=== PATIENT | male | born 1945 | race Caucasian/White ===

== ENCOUNTER 2016-10-18 21:34 | Inpatient (IN) | payer MEDICARE, MEDICAID ==
[2016-10-18] MEDS ORDERED: Morphine 4 mg/ml ISec IM STA (22:01)
--- NOTE | 2016-10-18 22:11 | ED PDOC ---
Arrival/HPI - General Chief Complaint: Trauma Time Seen by Provider: 10/18/16 21:43 Historian: Patient, Steward/Stewardess Deck ( ) - History of Present Illness Narrative History of Present Illness (Text): 10/18/16 22:07 Esteban Carrion is a 70 year old male, whose past medical history includes left ear deafness, blindness, hypertension, hyperlipidemia, COPD, and alcohol abuse, presents to the emergency department complaining of left leg pain for past 2 hours. Patient states that today is the anniversary of his son's and admit to drinking alcohol. States that he can't move his left leg due to pain. Patient is unclear about a fall and story is inconsistent. Denies any chest pain , SOB, back pain, abdominal pain, nausea, vomiting, diarrhea, or any other complaints at this time. Time/Duration: 1-3 hours Symptom Onset: Gradual Symptom Course: Unchanged Activities at Onset: Significant Context: Other (questionable fall ) Past Medical History - Provider Review Nursing Documentation Reviewed: Yes - Infectious Disease Hx of Infectious Diseases: None - Tetanus Immunization Tetanus Immunization: Unknown - Past Medical History Past Medical History: No Previous - Cardiac Hx Hypertension: Yes - Pulmonary Hx Respiratory Disorders: No - Neurological Hx Neurological Disorder: No - HEENT Hx HEENT Disorder: Yes ([place]) Hx Blind: Yes Hx Cataracts: Yes Hx Glaucoma: Yes - Renal Hx Renal Disorder: No - Endocrine/Metabolic Hx Endocrine Disorders: No - Hematological/Oncological Hx Blood Disorders: No - Integumentary Hx Dermatological Disorder: No Other/Comment: poor hygeine - Musculoskeletal/Rheumatological Hx Falls: No (passed out at the bank today) - Gastrointestinal Hx Gastrointestinal Disorders: No - Genitourinary/Gynecological Hx Genitourinary Disorders: No - Psychiatric Hx Depression: No Hx Emotional Abuse: No Hx Physical Abuse: No Hx Substance Use: No Other/Comment: drinks alcohol daily, smokes 1/2 pack cigs a day - Past Surgical History Past Surgical History: No Previous - Anesthesia Hx Anesthesia: No Hx Anesthesia Reactions: No Hx Malignant Hyperthermia: No - Suicidal Assessment Feels Threatened In Home Enviroment: No Family/Social History - Physician Review Nursing Documentation Reviewed: Yes Family/Social History: No Known Family HX Smoking Status: Heavy Smoker > 10 Cigarettes Daily Hx Alcohol Use: Yes (daily) Hx Substance Use: No Hx Substance Use Treatment: No Allergies/Home Meds Allergies/Adverse Reactions: Allergies No Known Allergies Allergy (Verified 07/29/16 20:10) Home Medications: Home Meds Medication Instructions Recorded Confirmed Advair Disk Unk Dose 03/22/16 Albuterol HFA [Ventolin HFA 90 0.09 mg IH PRN PRN 03/22/16 03/22/16 mcg/actuation (8 g)] Gabapentin [Neurontin] 300 mg PO TID 03/22/16 03/22/16 Hydroxyzine HCl 25 mg PO HS 03/22/16 03/22/16 Latanoprost 0.005% Opht [XALATAN 1 drop OU ACD 03/22/16 03/22/16 2.5 Ml] Meclizine [Antivert] 12.5 mg PO DAILY 03/22/16 03/22/16 Polyth Glucol Powder PRN PRN 03/22/16 Pravastatin Sodium [Pravachol] 20 mg PO DAILY 03/22/16 03/22/16 Ramelteon [Rozerem] 8 mg PO DAILY 03/22/16 03/22/16 Venlafaxine [Effexor] 37.5 mg PO DAILY 03/22/16 03/22/16 acetaZOLAMIDE [Acetazolamide] 500 mg PO BID 03/22/16 03/22/16 Review of Systems - Physician Review All systems were reviewed & negative as marked: Yes - Review of Systems Constitutional: Normal. absent: Fatigue, Fevers Respiratory: Normal. absent: SOB, Cough, Sputum Cardiovascular: Normal. absent: Chest Pain, Palpitations Gastrointestinal: Normal. absent: Abdominal Pain, Diarrhea, Nausea, Vomiting Genitourinary Male: Normal. absent: Dysuria Musculoskeletal: Other (Left hip and leg pain ). absent: Back Pain, Neck Pain Neurological: Normal. absent: Headache, Dizziness Physical Exam Vital Signs Reviewed: Yes Vital Signs Temp Pulse Resp BP Pulse Ox 10/18/16 23:54 97.8 F 94 H 18 140/81 95 10/18/16 23:13 19 10/18/16 22:02 97.8 F 80 99 H 159/68 H 99 Temperature: Afebrile Blood Pressure: Normal Pulse: Regular Respiratory Rate: Normal Appearance: Positive for: Non-Toxic Pain Distress: Mild Mental Status: Positive for: Alert and Oriented X 3 - Systems Exam Head: Present: Atraumatic, Normocephalic. No: Tenderness, Swelling, Ecchymosis Pupils: Present: PERRL Conjunctiva: Present: Normal Neck: Present: Normal Range of Motion. No: MIDLINE TENDERNESS, Paraspinal Tenderness Respiratory/Chest: Present: Clear to Auscultation, Good Air Exchange. No: Respiratory Distress, Accessory Muscle Use Cardiovascular: Present: Regular Rate and Rhythm, Normal S1, S2. No: Murmurs Abdomen: Present: Normal Bowel Sounds. No: Tenderness, Distention, Peritoneal Signs, Rebound, Guarding Back: Present: Normal Inspection. No: CVA Tenderness, Midline Tenderness Upper Extremity: Present: Normal Inspection, Normal ROM, NORMAL PULSES, Neurovascularly Intact. No: Cyanosis, Edema Lower Extremity: Present: NORMAL PULSES, Neurovascularly Intact, Other ( tenderness to left hip and upper leg. no left knee tenderness. FROM left ankle. ). No: Edema Neurological: Present: GCS=15, CN II-XII Intact, Speech Normal Skin: Present: Warm, Dry, Normal Color. No: Rashes Psychiatric: Present: Alert, Oriented x 3, Intoxicated Medical Decision Making ED Course and Treatment: 10/18/16 22:15 Impression: A 70 year old male who presents to the ed for evaluation of left leg pain after a questionable fall after ETOH consumption. On PE, patient has tenderness to left hip and upper leg. No tenderness to left knee and full range of motion on left ankle. No signs of trauma. Differential Diagnosis: ETOH and Fall: r/o fracture Plan: -- CT Head -- EKG -- Labs, cardiac enzymes -- CXR -- Morphine -- Hip X-ray -- Knee X-ray -- LS X-ray Progress Notes: EKG interpreted by me: NSR @ 81 bpm. normal axis. normal interval. 10/18/16 23:09 CT HEAD results reviewed: IMPRESSION: 1. There is motion and beam hardening artifact which somewhat limits evaluation. 2. No evidence for acute intracranial abnormality or displaced calvarial fracture. X-Ray show left intertrochanteric hip fracture. Patient is hypokalemic with potassium of 3.[address] Ponce who accepts patient to [facility] under her service with Dr. Ferguson on consult. - Lab Interpretations Lab Results: 10/18/16 22:11 10/18/16 22:11 Lab Results 10/18/16 22:11: WBC 4.9 D, RBC 4.34, Hgb 12.4 L, Hct 36.7 L, MCV 84.6, MCH 28.6 , MCHC 33.8, RDW 15.0 H, Plt Count 146, MPV 10.6, Gran % 42.5 L, Lymph % (Auto) 46.5 H, [place] % (Auto) 4.5, Eos % (Auto) 5.9 H, Baso % (Auto) 0.6, Gran # 2.07, Lymph # 2.3, [place] # 0.2, Eos # 0.3, Baso # 0.03, PT 11.7, INR 1.08, APTT 29.9, Sodium 143, Potassium 3.5 L, Chloride 102, Carbon Dioxide 28, Anion Gap 17, BUN 10, Creatinine 0.6, Est GFR ( Amer) > 60, Est GFR (Non-Af Amer) > 60, Random Glucose 111 H, Calcium 8.8, Magnesium 1.9, Total Bilirubin 0.6, AST 79 H , ALT 38, Alkaline Phosphatase 551 H, Lactate Dehydrogenase 572, Total Creatine Kinase 57, Troponin I < 0.01, Total Protein 7.9, Albumin 3.7, Globulin 4.1, Albumin/Globulin Ratio 0.9 L, Alcohol, Quantitative 220 H I have reviewed the lab results: Yes - RAD Interpretation Narrative RAD Interpretations (Text): EXAM: CT Head Without Intravenous Contrast. FINDINGS: Artifacts: There is motion and beam hardening artifact which somewhat limits evaluation. Brain: There is moderate prominence of ventricles and sulci, compatible with moderate atrophy. There is mild diminished density of the white matter bilaterally, consistent with mild microangiopathy. There is no evidence of intracranial hemorrhage. No evidence of acute territorial infarction. No edema. Ventricles: See above. Bones/joints: Unremarkable. No acute fracture. Soft tissues: Unremarkable. Sinuses: Unremarkable as visualized. No acute sinusitis. Mastoid air cells: Unremarkable as visualized. No mastoid effusion. IMPRESSION: 1. There is motion and beam hardening artifact which somewhat limits evaluation. 2. No evidence for acute intracranial abnormality or displaced calvarial fracture. 3. Additional incidental and/or chronic findings as described Radiology Orders: 10/18/16 22:01 HEAD W/O CONTRAST [CT] Stat HIP MIN 2V W/ PELVIS LT [RAD] Stat KNEE LEFT 2 VIEWS (AP & LAT) [RAD] Stat LS SPINE WITH OBL > 18 YRS OLD [RAD] Stat 10/18/16 22:04 CXR [CHEST ONE VIEW] [RAD] Stat Turbine Technician: Radiologist - EKG Interpretation Interpreted by ED Physician: Yes Type: 12 lead EKG - Medication Orders Current Medication Orders: Discontinued Medications Morphine Sulfate (Morphine) 4 mg IM STAT STA Stop: 10/18/16 22:02 Last Admin: 10/18/16 22:17 Dose: 4 MG MAR Pain Assessment Document 10/18/16 22:17 [facility] (Rec: 10/18/16 22:18 [id number]) Pain Reassessment Is this a pain reassessment? No Sleep Is patient sleeping during reassessment? No Presence of Pain Presence of Pain Yes Pain Scale Used Pain Scale Used Numeric Location Left, Right or Bilateral Left Pain Location Body Site Leg Description Description Constant Intensity of Pain at present 8 Acceptable Level of Pain 0 Radiation Location left leg Variations/Patterns intermitent Pain Behavior Moaning Rubbing Site Aggravating Factors ADL's Alleviating Factors/Management Position Change Techniques IM Administration Charges Document 10/18/16 22:17 [facility] (Rec: 10/18/16 22:18 [id number]) Injection Site MAR Injection Site Left Deltoid Charges for Administration # of IM Administrations 1 Morphine Sulfate (Morphine) 4 mg IVP STAT STA Stop: 10/18/16 23:14 Last Admin: 10/18/16 23:31 Dose: 4 MG MAR Pain Assessment Document 10/18/16 23:31 [facility] (Rec: 10/18/16 23:41 [id number]) Pain Reassessment Is this a pain reassessment? No Sleep Is patient sleeping during reassessment? No Presence of Pain Presence of Pain Yes Pain Scale Used Pain Scale Used Numeric Location Left, Right or Bilateral Left Pain Location Body Site Leg Description Description Constant Intensity of Pain at present 6 Acceptable Level of Pain 0 IVP Administration Document 10/18/16 23:31 [facility] (Rec: 10/18/16 23:41 [id number]) Charges for Administration # of IVP Administrations 1 Potassium Chloride (K-Dur 20 Meq Er Tab) 40 meq PO STAT STA Stop: 10/18/16 22:40 Last Admin: 10/18/16 23:17 Dose: 40 MEQ - Scribe Statement The provider has reviewed the documentation as recorded by the Vincent Christina Provider Attestation: All medical record entries made by the Vincent were at my direction and personally dictated by me. I have reviewed the chart and agree that the record accurately reflects my personal performance of the history, physical exam, medical decision making, and the department course for this patient. I have also personally directed, reviewed, and agree with the discharge instructions and disposition. Disposition/Present on Arrival - Present on Arrival Any Indicators Present on Arrival: No History of DVT/PE: No History of Uncontrolled Diabetes: No Urinary Catheter: No History of Decub. Ulcer: No History Surgical Site Infection Following: None - Disposition Have Diagnosis and Disposition been Completed?: Yes Diagnosis: Fracture of left hip, Alcohol intoxication Disposition: HOSPITALIZED Disposition Time: 23:09 Patient Plan: Admission Condition: FAIR
[2016-10-18 22:18] LABS: ADD MANUAL DIFF? NO
[2016-10-18 22:20] LABS: BASO # 0.03 K/mm3 (0.0-2.0); BASO % 0.6 % (0.0-3.0); EOS # 0.3 (0.0-0.7); EOS % 5.9 % (1.5-5.0); GRAN # 2.07 (1.4-6.5); GRAN % 42.5 % (50.0-68.0); HEMATOCRIT 36.7 % (42.0-52.0); LYMPH # 2.3 (1.2-3.4); LYMPH % 46.5 % (22.0-35.0); MEAN CELL VOLUME 84.6 fL (80.0-105.0); MEAN CORPUSCULAR HEMOGLOBIN 28.6 pg (25.0-35.0); MEAN CORPUSCULAR HGB CONC 33.8 g/dl (31.0-37.0); MEAN PLATELET VOLUME 10.6 fl (7.0-11.0); MONO # 0.2 (0.1-0.6); MONO % 4.5 % (1.0-6.0); PLATELET COUNT 146 10^3/uL (120.0-450.0); WHITE BLOOD COUNT 4.9 10^3/ul (4.5-11.0)
[2016-10-18 22:33] LABS: INR 1.08 (0.93-1.08); PARTIAL THROMBOPLASTIN TIME 29.9 Seconds (23.7-30.8)
[2016-10-18 22:34] LABS: ALB/GLOB RATIO 0.9 (1.1-1.8); ALKALINE PHOSPHATASE 551 U/L (38-133); ALT/SGPT 38 U/L (7-56); AST/SGOT 79 U/L (15-59); BILIRUBIN,TOTAL 0.6 mg/dL (0.2-1.3); BLOOD UREA NITROGEN 10 mg/dL (7-21); CALCIUM 8.8 mg/dL (8.4-10.5); CARBON DIOXIDE 28 mmol/L (21-33); CHLORIDE 102 mmol/L (98-107); GFR AFRICAN-AMERICAN > 60; GLUCOSE,RANDOM 111 mg/dL (70-110); MAGNESIUM 1.9 mg/dL (1.7-2.2); POTASSIUM 3.5 mmol/L (3.6-5.0); SODIUM 143 mmol/L (132-148); TOTAL PROTEIN 7.9 g/dL (5.8-8.3)
[2016-10-18] MEDS ORDERED: Potassium Chloride 20 mEq ER Tab PO STA (22:39)
[2016-10-18 22:48] LABS: TROPONIN I < 0.01 ng/mL
--- NOTE | 2016-10-18 23:06 | CT ---
EXAM: CT Head Without Intravenous Contrast. CLINICAL HISTORY: 70 years old, male; Injury or trauma; Fall; Initial encounter; Concussion / head injury; Additional info: Fall R/O ich TECHNIQUE: Axial computed tomography images of the head/brain without intravenous contrast. This CT exam was performed using one or more of the following dose reduction techniques: automated exposure control, adjustment of the mA and/or kV according to patient size, and/or use of iterative reconstruction technique. COMPARISON: No relevant prior studies available. FINDINGS: Artifacts: There is motion and beam hardening artifact which somewhat limits evaluation. Brain: There is moderate prominence of ventricles and sulci, compatible with moderate atrophy. There is mild diminished density of the white matter bilaterally, consistent with mild microangiopathy. There is no evidence of intracranial hemorrhage. No evidence of acute territorial infarction. No edema. Ventricles: See above. Bones/joints: Unremarkable. No acute fracture. Soft tissues: Unremarkable. Sinuses: Unremarkable as visualized. No acute sinusitis. Mastoid air cells: Unremarkable as visualized. No mastoid effusion. IMPRESSION: 1. There is motion and beam hardening artifact which somewhat limits evaluation. 2. No evidence for acute intracranial abnormality or displaced calvarial fracture. 3. Additional incidental and/or chronic findings as described.
[2016-10-18] MEDS ORDERED: Morphine 4 mg/ml ISec IVP STA (23:13)
[2016-10-19] MEDS ORDERED: Sodium Chloride 0.9% 1,000 ML IV STA (00:15)
[2016-10-19] MEDS: Morphine 4 mg/ml ISec IVP PRN ×4 (01:40→20:01)
--- NOTE | 2016-10-19 09:20 | RAD ---
PROCEDURE: CHEST RADIOGRAPH, 1 VIEW HISTORY: fall r/o fx COMPARISON: 05/15/2016 FINDINGS: LUNGS: Clear. PLEURA: No pneumothorax or pleural fluid seen. CARDIOVASCULAR: Normal. OSSEOUS STRUCTURES: No significant abnormalities. VISUALIZED UPPER ABDOMEN: Normal. OTHER FINDINGS: None. IMPRESSION: No active disease.
--- NOTE | 2016-10-19 09:22 | RAD ---
PROCEDURE: Left Knee Radiographs. HISTORY: Pain. COMPARISON: None. FINDINGS: BONES: Normal. No fracture. JOINTS: Normal. No osteoarthritis. JOINT EFFUSION: None. OTHER FINDINGS: None. IMPRESSION: Normal radiographs of the left knee.
--- NOTE | 2016-10-19 09:23 | RAD ---
PROCEDURE: Radiographs of the Lumbar Spine. HISTORY: fall r/o fx COMPARISON: No prior. FINDINGS: BONES: Normal alignment. No listhesis. No fracture. DISC SPACES: Unremarkable. OTHER FINDINGS: Osteophytes are seen at multiple levels without significant disc space narrowing IMPRESSION: Unremarkable radiographs of the lumbar spine.
--- NOTE | 2016-10-19 09:25 | RAD ---
PROCEDURE: Pelvis and left hip HISTORY: fall r/o fx COMPARISON: TECHNIQUE: Two views FINDINGS: There is a minimally displaced left intertrochanteric fracture. The pelvis is intact IMPRESSION: Negative study
[2016-10-19] MEDS ORDERED: Albuterol HFA 90 mcg/actuation (8 g) IH PRN (09:26)
[2016-10-19] MEDS ORDERED: Albuterol 0.5% Inhal Sol (2.5 mg/0.5 ml) UD IH PRN (09:37)
[2016-10-19] MEDS ORDERED: [UNRECOGNIZED DRUG - OTHER] IH SCH (10:00)
[2016-10-19] MEDS ORDERED: RAMELTEON 8 MG PO SCH (10:00)
--- NOTE | 2016-10-19 10:21 | CARD ---
APPROVED REPORT EKG Measurement Heart [id number] <Conclusion> Normal sinus rhythm ST changes V 4 - 6, new
[2016-10-19] MEDS: RAMELTEON 8 MG PO SCH (10:23)
[2016-10-19] MEDS: acetaZOLAMIDE 500 mg SR Cap PO SCH ×2 (10:56→18:14)
--- NOTE | 2016-10-19 11:20 | CP.PCM.CON ---
History of Present Illness - History of Present Illness History of Present Illness: Esteban Carrion is a 70 year old male, whose past medical history includes left ear deafness, blindness, hypertension, hyperlipidemia, COPD, and alcohol abuse, seen at bedside for left minimally displaced intertrochanteric fracture. Patient fell yesterday in his home and could not move his leg due to pain. patient admitted to drinking alcohol since it was the anniversary of his son's . Patient is unclear about a fall and story is inconsistent. Denies any chest pain, SOB, back pain, abdominal pain, nausea, vomiting, diarrhea, or any other complaints at this time. Review of Systems - Constitutional Constitutional: As Per HPI Past Patient History - Infectious Disease Hx of Infectious Diseases: None - Tetanus Immunizations Tetanus Immunization: Unknown - Past Social History Smoking Status: Heavy Smoker > 10 Cigarettes Daily - CARDIAC Hx Cardiac Disorders: Yes Hx Hypertension: Yes - PULMONARY Hx Respiratory Disorders: Yes Hx Chronic Obstructive Pulmonary Disease (COPD): Yes - NEUROLOGICAL Hx Neurological Disorder: No - HEENT Hx HEENT Problems: Yes Hx Blind: Yes Hx Cataracts: Yes Hx Deafness: Yes Hx Glaucoma: Yes - RENAL Hx Chronic Kidney Disease: No - ENDOCRINE/METABOLIC Hx Endocrine Disorders: No - HEMATOLOGICAL/ONCOLOGICAL Hx Blood Disorders: No - INTEGUMENTARY Hx Dermatological Problems: No - MUSCULOSKELETAL/RHEUMATOLOGICAL Hx Musculoskeletal Disorders: Yes Hx Falls: Yes Hx Fractures: Yes Hx Unsteady Gait: Yes - GASTROINTESTINAL Hx Gastrointestinal Disorders: No - GENITOURINARY/GYNECOLOGICAL Hx Genitourinary Disorders: No - PSYCHIATRIC Hx Psychophysiologic Disorder: Yes Hx Depression: Yes - SURGICAL HISTORY Hx Surgeries: Yes - ANESTHESIA Hx Anesthesia: No Hx Anesthesia Reactions: No Hx Malignant Hyperthermia: No Meds Allergies/Adverse Reactions: Allergies Allergy/AdvReac Type Severity Reaction Status Date / Time No Known Allergies Allergy Verified 07/29/16 20:10 - Medications Medications: Current Medications Acetazolamide (Diamox Sequels 500 Mg Sr Cap) 500 mg PO BID [facility] Last Admin: 10/19/16 10:56 Dose: 500 mg Albuterol Sulfate (Albuterol 0.5% Inhal Patti (2.5 Mg/0.5 Ml) Ud) 2.5 mg IH [id number] PRN PRN Reason: Cough and congestion Arformoterol Tartrate (Brovana) 15 mcg IH [id number] [facility] Atorvastatin Calcium (Lipitor) 10 mg PO DIN JUANITA Budesonide (Pulmicort Respules) 0.25 mg IH [id number] JUANITA Gabapentin (Neurontin) 300 mg PO TID JUANITA PRN Reason: Protocol Last Admin: 10/19/16 10:20 Dose: 300 mg Hydroxyzine HCl (Atarax) 25 mg PO HS JUANITA Latanoprost (Xalatan Opht) 0 ml OU ACD JUANITA Morphine Sulfate (Morphine) 4 mg IVP Q4H PRN PRN Reason: Pain, moderate (4-7) Last Admin: 10/19/16 09:34 Dose: 4 mg Non-Formulary Medication (Ramelteon [Rozerem]) 8 mg PO DAILY [facility] Last Admin: 10/19/16 10:23 Dose: Not Given Ondansetron HCl (Zofran Inj) 4 mg IVP Q4H PRN PRN Reason: Nausea/Vomiting Venlafaxine HCl (Effexor) 37.5 mg PO DAILY [facility] Last Admin: 10/19/16 10:56 Dose: 37.5 mg Physical Exam - Constitutional Appears: Well, Non-toxic, No Acute Distress - Extremities Exam Additional comments: Vasc: palpable pulses, CFT < 3 sec to all digits left lower extremity focused: no edema, no erythema, mild echymoses, no open lesions ortho: tenderness to palpation of left hip and upper leg, diminished ROM to left hip - Neurological Exam Neurological exam: Alert, Oriented x3 - Psychiatric Exam Psychiatric exam: Normal Affect, Normal Mood Results - Vital Signs Recent Vital Signs: Last Vital Signs Temp 99.2 F 10/19/16 06:00 Pulse 102 H 10/19/16 06:00 Resp 18 10/19/16 06:00 BP 110/65 10/19/16 06:00 Pulse Ox 95 10/19/16 06:00 - Labs Result Diagrams: 10/19/16 11:20 10/19/16 11:20 Assessment & Plan - Assessment and Plan (Free Text) Assessment: 70 y/o male seen at bedside for left minimally displaced intertrochanteric fracture, going to OR tomorrow at 11:00AM. Plan: patient evaluated and chart reviewed discussed in detail with attending Dr. Tam patient going to OR tomorrow morning at 11am for ORIF of left intertrochanteric fracture [facility] Dr. Tam f.u CBC f/u BMP f/u Chest x ray f/u EKG f/u type and screen f/u PT, PTT, INR needs medical optimization for surgery tomorrow patient NPO after midnight patient will continue to be monitored while in house
[2016-10-19 11:43] LABS: HEMATOCRIT 32.1 % (42.0-52.0); MEAN CELL VOLUME 85.1 fL (80.0-105.0); MEAN CORPUSCULAR HEMOGLOBIN 28.1 pg (25.0-35.0); MEAN PLATELET VOLUME 10.2 fl (7.0-11.0); RED CELL DISTRIBUTION WIDTH 15.2 % (11.5-14.5); WHITE BLOOD COUNT 6.8 10^3/ul (4.5-11.0)
[2016-10-19 11:51] LABS: BLOOD UREA NITROGEN 12 mg/dL (7-21); CALCIUM 8.1 mg/dL (8.4-10.5); CARBON DIOXIDE 30 mmol/L (21-33); CHLORIDE 105 mmol/L (95-110); GFR AFRICAN-AMERICAN > 60; GLUCOSE,RANDOM 120 mg/dL (70-110); POTASSIUM 4.2 mmol/L (3.6-5.0); SODIUM 140 mmol/L (132-148)
[2016-10-19 11:56] LABS: INR 1.06 (0.93-1.08); PARTIAL THROMBOPLASTIN TIME 30.1 Seconds (23.7-30.8)
[2016-10-19] MEDS ORDERED: Latanoprost 2.5 ml Opht Soln OU SCH (16:30)
[2016-10-19] MEDS: Latanoprost 2.5 ml Opht Soln OU SCH (17:02)
--- NOTE | 2016-10-19 17:29 | CON ---
DATE: 10/19/2016 REASON FOR CONSULTATION: Minimally displaced left intertrochanteric fracture, and surgical clearance , as well as abnormal EKG. The patient is a 70-year-old [place] female who is a smoker, has chronic obstructive lung disease, b ut not on nasal O2 at home. He sustained a fracture at home with left intertrochanteric minimally di splaced fracture. The patient is being considered for open reduction internal fixation tomorrow at [facility]. The patient denies any chest pain at this time, and is unaware of any history of he art attack in the past. SOCIAL HISTORY: The patient is a smoker. He lives with his daughter, who has psychological problems . The patient's is in a fdc, and the patient is a smoker and drinker. The patient los t his son recently. REVIEW OF SYSTEMS: The patient denies any history of heart attack or stroke in the past. MEDICATIONS: Albuterol inhaler q. 6 hours, Atarax 2.25 mg at bedtime, Brovana 15 mcg inhalation twic e a day, Diamox 500 mg twice a day, Effexor 37.5 mg p.o. daily, Lipitor 10 mg daily, Neurontin 300 m g p.o. t.i.d., nicotine patch, Singulair 10 mg p.o. at bedtime, Solu-Medrol 40 mg intravenously q. 6 hours, Zofran 4 mg intravenously q. 4 hours p.r.n. PHYSICAL EXAMINATION: The patient is an elderly male who appears much older than his dated age. VITAL SIGNS: Blood pressure 155/78, heart rate 90, temperature 98, respiration 20. HENT: Normocephalic. NECK: No JVD. CHEST: Bilateral diffuse wheezing. HEART: S1, S2 regular. ABDOMEN: Soft. EXTREMITIES: Significant muscle wasting. LABORATORIES: Hemoglobin and hematocrit 10.6 and 32.1, white count and platelet count are within nor mal limits. SMA-7: Sodium 140, potassium 4.2, chloride 105, CO2 of 30, glucose 120, BUN 12, creatin ine 0.6. One set of troponin is negative. Alcohol level was 221. PT/INR is within normal limit. I did review the echocardiograph study which revealed normal ejection fraction. EKG image could not be accessed on the [facility], but was reported to be sinus rhythm with ST-T wave changes. Head CAT sc an: Motion artifact. No acute finding. ASSESSMENT: 1. Status post fall and minimally displaced left intertrochanteric fracture. 2. Alcohol intoxication. 3. Abnormal EKG. 4. Chronic obstructive lung disease. RECOMMENDATIONS: Continue current bronchodilators including albuterol, Brovana, continue Solu-Medrol , continue Lipitor at 10 mg once a day. I would review the EKGs at the [employer] database as they are not accessible on the [employer] database. The patient, despite the fact that he has good ejection fr action by my own review of the echocardiograph study, needs pulmonary clearance as the patient is act ively and diffusely wheezing at this time. Repeat alcohol level to ensure that the patient is no carla kenneth alcohol intoxicated prior to subjecting him to anesthesia. Emilio Amador MD cc: [id number] TT: 10/19/2016 17:28:24 Confirmation # [id number] Dictation # [id number]
--- NOTE | 2016-10-19 17:44 | CARD ---
APPROVED REPORT EXAM: Two-dimensional and M-mode echocardiogram with Doppler and color Doppler. INDICATION Pre-Op 2D DIMENSIONS Left Atrium (2D)3.2 (1.6-4.0cm) M-Mode DIMENSIONS IVSd1.21 (0.7-1.1cm)Aortic Root2.90 (2.2-3.7cm) LVDd3.46 (4.0-5.6cm)Aortic Cusp Exc.1.30 (1.5-2.0cm) PWd1.56 (0.7-1.1cm)IVSs1.56 cm FS (%) 37 %LVDs2.19 (2.0-3.8cm) PWs1.27 cmLVEF (%)68 (>50%) Aortic Valve AoV Peak Lflzfoik827.0cm/Shaq Peak GR.5mmHg Mitral Valve MV E Cbjmhdwr65.6cm/sMV A Fqlfxtih21.4cm/sE/A ratio1.1 TDI E/Lateral E'0.0E/Medial E'0.0 LEFT VENTRICLE The left ventricle is normal size. There is borderline concentric left ventricular hypertrophy. The left ventricular function is normal. The left ventricular ejection fraction is within the normal range. There is normal LV segmental wall motion. Transmitral Doppler flow pattern is Grade I-abnormal relaxation pattern. RIGHT VENTRICLE The right ventricle is normal size. There is normal right ventricular wall thickness. The right ventricular systolic function is normal. ATRIA The left atrium size is normal. The right atrium size is normal. AORTIC VALVE The aortic valve is not well visualized. MITRAL VALVE The mitral valve is not well visualized. GREAT VESSELS The aortic root displays moderate sclerocalcific changes of the aortic root. Due to poor image quality, the IVC could not be assessed. PERICARDIAL EFFUSION There is a trace loculated anterior pericardial effusion. <Conclusion> The left ventricle is normal size. There is borderline concentric left ventricular hypertrophy. The left ventricular function is normal. The left ventricular ejection fraction is within the normal range. There is normal LV segmental wall motion. Transmitral Doppler flow pattern is Grade I-abnormal relaxation pattern.
[2016-10-19] MEDS: MethylPREDNISolone 40 mg Vial IVP SCH (18:11)
[2016-10-19] MEDS: Budesonide 0.25 mg/2 ml Inhal Susp UD IH SCH (19:58)
[2016-10-19] MEDS: Arformoterol 15 mcg/2 ml Inh Sol IH SCH (19:58)
--- NOTE | 2016-10-19 20:36 | CON ---
DATE: 10/19/2016 REFERRING PHYSICIAN: Dr. Ponce. REASON FOR CONSULT: Chronic obstructive lung disease, status post fall with left intertrochanteric f racture, waiting for surgery. 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 He did not follow with any physician for years. N o chest pain, no nausea, no vomiting. PAST MEDICAL HISTORY: Chronic obstructive lung disease, alcohol abuse. SOCIAL HISTORY: Lives with the daughter, history of active smoking and excessive alcohol use. ALLERGIES: None known. FAMILY HISTORY: No significant cardiopulmonary disease reported. MEDICATIONS: He is on Atarax on a p.r.n. basis, Brovana inhaled twice a day, Diamox 500 mg twice a d ay, Effexor 37.5 mg daily, Lipitor 10 mg daily, Neurontin 300 mg 3 times a day, Zofran on a p.r.n. ba sis. REVIEW OF SYSTEMS: No headache, no rhinitis. Has a cough and shortness of breath. No chest pain, n o nausea, no vomiting, no abdominal pain. Has left hip pain. PHYSICAL EXAMINATION: GENERAL: He is lying in the bed in [id number] distress secondary to hip pain. VITAL SIGNS: Temperature is 98, heart rate is 90, respiratory rate is 20, blood pressure 155/78, pul se ox 98% on nasal cannula. HEENT: Small oral cavity. Crowded airway. NECK: Supple, no JVD. LUNGS: Has diffuse wheezing with poor airflow. HEART: S1, S2. ABDOMEN: Soft, nontender. No organomegaly. EXTREMITIES: There is no edema. Has left hip tenderness. NEUROLOGIC: Awake, alert, follows simple commands. LABORATORY DATA: Shows hemoglobin 10.6, hematocrit 32.1, WBC 6.8, platelet is 139. INR 1.06, PTT 30 . Sodium 140, potassium 4.2, chloride 105, bicarbonate 30, BUN 12, creatinine 0.6, glucose 120, calc ium is 8.1, AST 79, ALT , is 551, albumin is 3.7. Had an echocardiogram done, which shows left ventricle is normal in size, borderline concentric left ventricular hypertrophy, ventricular fu nction is normal, left ventricular ejection fraction is within normal limits. There is some diastoli c dysfunction. The right ventricle is normal. By the report there is wall thickening of the right v entricle. Systolic function is reported as normal. Chest x-ray done on admission shows no active pu lmonary disease, left hip has intertrochanteric fracture. IMPRESSION AND PLAN: Status post fall with left hip intertrochanteric fracture, probably has signifi cant chronic obstructive pulmonary disease, history of alcohol abuse. The left leg is mildly swollen . Case discussed with the patient's son at bedside. All the questions were answered. Need to optim ize lung function. Will start him on inhaled bronchodilators, IV steroids, doxycycline 100 mg twice a day. Continue nebulizer treatment. Will place him on a Nicoderm patch 21 mg daily. Add Ativan 1 mg q.3 hours p.r.n. for agitation and alcohol withdrawal. Gastric prophylaxis. Will get venous Dopp ler. If it is negative, place SCDs to lower extremities. If it is positive, only place SCD to the right lower extremity and then make a decision about anticoagulation once we receive the venous Doppl er. Need to be reevaluate in the morning how the lungs sound. For now I will optimize pulmonary med ications in anticipation of hopefully surgery tomorrow if his pulmonary status is improved. Thank you and will follow with you. Theodore Atkins MD cc: [id number] TT: 10/19/2016 20:35:52 Confirmation # [id number] Dictation # [id number] [email or web address]
--- NOTE | 2016-10-19 20:45 | US ---
PROCEDURE: Left lower extremity venous US HISTORY: Leg pain and swelling. Evaluate for DVT. PHYSICIAN(S): Juan Miguel Scott MD. TECHNIQUE: Duplex sonography and color-flow Doppler with graded compression were used to evaluate the deep venous system of the left lower extremity. FINDINGS: The visualized deep venous system of the left lower extremity is sonographically normal and compressible. Normal wave forms and augmentation are seen. There is no sonographic evidence for deep venous thrombosis in the visualized segments of the left lower extremity. IMPRESSION: 1. No sonographic evidence for deep venous thrombosis in the visualized segments of the left lower extremity.
[2016-10-19] MEDS ORDERED: HYDROXYZINE HCL 25 MG PO SCH (22:00)
[2016-10-20] MEDS: Morphine 4 mg/ml ISec IVP PRN (05:10)
[2016-10-20] MEDS: MethylPREDNISolone 40 mg Vial IVP SCH ×5 (06:22→22:13)
[2016-10-20 07:18] LABS: HEMATOCRIT 34.3 % (42.0-52.0); MEAN CELL VOLUME 87.5 fL (80.0-105.0); MEAN CORPUSCULAR HEMOGLOBIN 27.8 pg (25.0-35.0); MEAN CORPUSCULAR HGB CONC 31.8 g/dl (31.0-37.0); MEAN PLATELET VOLUME 11.5 fl (7.0-11.0); RED CELL DISTRIBUTION WIDTH 15.2 % (11.5-14.5); WHITE BLOOD COUNT 5.4 10^3/ul (4.5-11.0)
[2016-10-20 07:33] LABS: BLOOD UREA NITROGEN 10 mg/dL (7-21); CALCIUM 8.5 mg/dL (8.4-10.5); CARBON DIOXIDE 26 mmol/L (21-33); CHLORIDE 104 mmol/L (98-107); CHOLESTEROL 163 mg/dL (130-200); GFR AFRICAN-AMERICAN > 60; GLUCOSE,RANDOM 133 mg/dL (70-110); POTASSIUM 4.2 mmol/L (3.6-5.0); SODIUM 135 mmol/L (132-148)
[2016-10-20] MEDS: Arformoterol 15 mcg/2 ml Inh Sol IH SCH ×2 (07:38→20:10)
[2016-10-20] MEDS: Budesonide 0.25 mg/2 ml Inhal Susp UD IH SCH ×2 (07:38→20:10)
[2016-10-20 07:39] LABS: IRON 21 ug/dL (45-180)
--- NOTE | 2016-10-20 07:48 | HP ---
CHIEF COMPLAINT: Fall, pain. HISTORY OF PRESENT ILLNESS: The patient is a 70-year-old male with past medical history of deafness, blindness, hypertension, hypercholesterolemia, COPD and alcohol abuse who came to the Emergency Room Department complaining of left leg pain for the past 2 hours. The patient states that today was his anniversary of his son's . Admits to drinking alcohol. The patient stated that he is unable to move his left leg due to pain. He is unclear about the fall and stories are inconsistent. Denies chest pain, shortness of breath. No back pain. No nausea, vomiting, or diarrhea. PAST MEDICAL HISTORY: Poor hygiene. Drinking alcohol. Smokes 1/2 pack per day. FAMILY HISTORY: Father and mother noncontributory. HABITS: Heavy smoker, more than 10 cigarettes a day, using alcohol. No drug abuse as per patient. ALLERGIES: The patient is not allergic to any medications. HOME MEDICATIONS: Advair, albuterol, Neurontin, hydralazine, Pravachol, Effexor , Acetazolamide. REVIEW OF SYSTEMS: The patient is seen and examined on the bedside, coughing, wheezing. No fever, no chills. No hematuria or hematochezia. No headache, no dizziness. The patient is a very poor historian, blind and deaf. No headache, no rhinitis, no shortness of breath. PHYSICAL EXAMINATION: VITAL SIGNS: Temperature 98.2, heart rate 90, respiratory rate 20, blood pressure 150/78, pulse oximetry is 98% on room air. HEENT: Normocephalic, atraumatic. EYES: PERRLA. Extraocular movements are intact. Conjunctivae pink. Eyelids unremarkable. Nose patent. NECK: Supple. No carotid bruit, JVD or thyromegaly. LUNGS: Has diffuse of wheezing with poor air entry. HEART: S1, S2 positive. ABDOMEN: Soft. No organomegaly. EXTREMITIES: No edema, no cyanosis. NEUROLOGIC: The patient is awake, alert, follows simple commands. LABORATORY DATA: Hemoglobin 10.6, hematocrit 32.1, white blood cells 6.8, platelets 139. Sodium 140, potassium 4.2, BUN 12, creatinine 0.6, AST 79. The patient had echocardiography done, reviewed by me. Chest x-ray shows active pulmonary disease. Left hip has intertrochanteric fracture ASSESSMENT AND PLAN: The patient is status post fall with left hip intertrochanteric fracture probably has a significant chronic obstructive pulmonary disease, history of ethanol abuse, history left leg mildly swollen. The patient is blind and deaf. The patient had to go for surgery, Pulmonary and Cardiology consult called for clearance. Dr. Atkins started him inhaled bronchodilators, Doxycycline, nebulizer, put on NicoDerm patch. Added ativan for agitation, alcohol withdrawals and gastric prophylaxis. We will get a venous Doppler. If it is negative, put scd in the lower extremities, if positive and then make the decision about anticoagulation once we receive the Venous Doppler and according to the Dr. Atkins. He will evaluate the patient tomorrow If his pulmonary status will improve will go to surgery am . Length of time discussion done with the patient's nurse. I reviewed Dr. Atkins's notes. I reviewed Dr. Emilio Amador notes also. The patient lives with the daughter, is a smoker, has psychological problems, abnormal EKG. Waiting for pulmonary and cardiological rhythms for surgery. We repeat labs, put him on thiamin. We will follow up. Evie Ponce MD cc: [id number] TT: 10/20/2016 07:47:54 tn [email or web address]
[2016-10-20] MEDS: Pantoprazole 40 mg EC Tab PO SCH (08:19)
--- NOTE | 2016-10-20 09:39 | CARD ---
APPROVED REPORT EKG Measurement Heart [id number] IN 158P70 [id number] <Conclusion> Normal sinus rhythm Improved repolarization V 4 -6
[2016-10-20] MEDS: acetaZOLAMIDE 500 mg SR Cap PO SCH ×2 (10:24→17:02)
[2016-10-20] MEDS: RAMELTEON 8 MG PO SCH (10:24)
[2016-10-20 11:31] LABS: FOLATE 9.4 ng/mL
[2016-10-20] MEDS ORDERED: Bupivacaine 0.5% Inj(30mL) ONE (11:48)
[2016-10-20] MEDS ORDERED: Propofol 10 mg/ml Inj (20 ML) ONE (12:39)
--- NOTE | 2016-10-20 14:37 | PCM.SURG1 ---
Surgeon's Initial Post Op Note - Surgeon's Notes Surgeon: Dr. Tam Production Line Assembler: Dr. Marinelli PGY-1 Type of Anesthesia: General Endo Anesthesia Administered By: Dr. Palmer Pre-Operative Diagnosis: left intertrochanteric fracture Operative Findings: see operative report Post-Operative Diagnosis: left intertrochanteric fracture Operation Performed: left hip intramedullary nail fixation Specimen/Specimens Removed: none Estimated Blood Loss: EBL {In ML}: 100 Blood Products Given: N/A Drains Used: No Drains Post-Op Condition: Good Date of Surgery/Procedure: 10/20/16 Time of Surgery/Procedure: 12:30
[2016-10-20] MEDS ORDERED: Morphine 2 mg/ml ISec IVP PRN (14:38)
[2016-10-20] MEDS ORDERED: Oxycodone/Acetaminophen 5/325 mg Tab PO PRN (14:41)
[2016-10-20] MEDS ORDERED: Sodium Chloride 0.9% 1,000 ML IV SCH (14:45)
--- NOTE | 2016-10-20 15:35 | PN ---
DATE: 10/20/2016 SUBJECTIVE: The patient underwent intramedullary rodding of left intertrochanteric hip fracture. Th e patient is currently in the recovery room. No reported ventricular arrhythmia or hypotension. The patient is not as wheezing as yesterday. He denies any chest pain. PHYSICAL EXAMINATION: VITAL SIGNS: Blood pressure 148/75, heart rate 89, temperature 97.6, respiration 12. HEENT: Normocephalic. NECK: No JVD. CHEST: Minimal rhonchi. HEART: S1, S2 regular. EXTREMITIES: No edema. LABORATORIES: Today's hemoglobin and hematocrit 10.9 and 34.3 and that was in the morning prior to s urgery. White count and platelet count were within normal limits. Today's SMA-7 was within normal l imits except for glucose of 133 and anion gap of 9. ASSESSMENT: 1. Status post intramedullary rodding for left intratrochanteric fracture. 2. Chronic obstructive lung disease. 3. Status post alcohol intoxication. RECOMMENDATIONS: Resume telemetry monitoring. Obtain a 12-lead EKG. Resume Lipitor at 10 mg once a day. Resume bronchodilators and methylprednisone at 40 mg intravenously q.6 hours. The patient is not a suitable candidate for full beta jagdeep therapy. Emilio Amador MD cc: [id number] TT: 10/20/2016 15:34:30 Confirmation # [id number] Dictation # [id number] dn
[2016-10-20] MEDS: Latanoprost 2.5 ml Opht Soln OU SCH (17:02)
--- NOTE | 2016-10-20 19:33 | PN ---
DATE: 10/20/2016 REFERRING PHYSICIAN: Dr. Ponce. SUBJECTIVE: He is lying in the bed. Family is at bedside. Going to OR. Anesthesiologist at [facility]. He feels much better, decreased cough, decreased shortness of breath. No nausea, no vomiting, no diarrhea. No significant leg swelling. Has left hip pain. OBJECTIVE: GENERAL: In no acute distress. VITAL SIGNS: Temperature is 98, heart rate is 83, respiratory rate is 16, blood pressure 151/90, pul se ox 95% on 3 liters nasal cannula. HEENT: Moist mucous membranes. Crowded airway. NECK: Supple, no JVD. LUNGS: Has much better airflow. No wheezing. A few rhonchi though. HEART: S1, S2. ABDOMEN: Soft, nontender. No organomegaly. EXTREMITIES: There is no edema. Left hip is tender. NEUROLOGIC: Awake, alert, follows simple commands. MEDICATIONS: He is on albuterol-Atrovent nebulizer q.6 hours p.r.n., Atarax 25 mg at bedtime, Ativan 1 mg q.3 hours p.r.n., Brovana 15 mcg inhaled twice a day, Daliresp 500 mcg daily, Diamox 500 mg twi ce a day, doxycycline 100 mg twice a day, Effexor 57.5 mg daily, Lipitor 10 mg daily, Lovenox 40 mg d aily, morphine 4 mg q.4 hours p.r.n., gabapentin 300 mg 3 times daily, Nicoderm patch daily, Percocet 5/325 one tab q.4 hours p.r.n., Protonix 40 mg daily, Pulmicort inhaled twice a day, Rozerem 8 mg da taya, Singulair 10 mg daily, Solu-Medrol 40 mg q.6 hours, vitamin D 100 mg daily, Zestril 20 mg daily, Zofran on a p.r.n. basis. LABORATORY DATA: Shows hemoglobin 10.9, hematocrit 34.3, WBC 5.4, platelet is 138. Sodium 135, pota ssium 4.2, chloride 104, bicarbonate 26, BUN 10, creatinine 0.6, glucose 133, calcium 1.9 two days ag o. Iron is 21, TIBC was 359. AST 79, ALT 38. Troponin less than 0.01. Albumin 3.7. Cholesterol _ ____. TSH 0.4. IMPRESSION AND PLAN: Status post fall with left hip intratrochanteric fracture, chronic obstructive lung disease with exacerbation, alcohol abuse. Case discussed with the anesthesiologist. Spoke to zoran finnegan. His pulmonary function is optimized. Will decrease Solu-Medrol. Continue doxycycline. Cont inue inhaled bronchodilators. Alcohol withdrawal precaution. Gastric prophylaxis and deep venous th rombosis prophylaxis. Thank you and will follow with you. Theodore Atkins MD cc: [id number] TT: 10/20/2016 19:32:42 Confirmation # [id number] Dictation # [id number] dn
[2016-10-20] MEDS ORDERED: MethylPREDNISolone 40 mg Vial IVP SCH (22:00)
[2016-10-21] MEDS: Pantoprazole 40 mg EC Tab PO SCH (05:49)
[2016-10-21 06:55] LABS: ALB/GLOB RATIO 0.8 (1.1-1.8); ALKALINE PHOSPHATASE 351 U/L (38-133); ALT/SGPT 25 U/L (7-56); AST/SGOT 40 U/L (15-59); BILIRUBIN,TOTAL 0.5 mg/dL (0.2-1.3); BLOOD UREA NITROGEN 16 mg/dL (7-21); CALCIUM 8.4 mg/dL (8.4-10.5); CARBON DIOXIDE 20 mmol/L (21-33); CHLORIDE 110 mmol/L (98-107); GFR AFRICAN-AMERICAN > 60; GLUCOSE,RANDOM 172 mg/dL (70-110); POTASSIUM 3.8 mmol/L (3.6-5.0); SODIUM 137 mmol/L (132-148); TOTAL PROTEIN 6.2 g/dL (5.8-8.3)
[2016-10-21 07:20] LABS: HEMATOCRIT 29.1 % (42.0-52.0); MEAN CELL VOLUME 87.1 fL (80.0-105.0); MEAN CORPUSCULAR HEMOGLOBIN 27.8 pg (25.0-35.0); MEAN PLATELET VOLUME 10.6 fl (7.0-11.0); RED CELL DISTRIBUTION WIDTH 15.2 % (11.5-14.5); WHITE BLOOD COUNT 8.7 10^3/ul (4.5-11.0)
[2016-10-21] MEDS: Morphine 4 mg/ml ISec IVP PRN ×3 (07:40→23:29)
[2016-10-21] MEDS: Budesonide 0.25 mg/2 ml Inhal Susp UD IH SCH ×2 (07:51→19:12)
[2016-10-21] MEDS: Arformoterol 15 mcg/2 ml Inh Sol IH SCH ×2 (07:51→19:11)
--- NOTE | 2016-10-21 09:47 | CARD ---
APPROVED REPORT EKG Measurement Heart [id number] MI [id number] [id number] <Conclusion> Normal sinus rhythm Normal ECG
[2016-10-21] MEDS: MethylPREDNISolone 40 mg Vial IVP SCH ×2 (10:53→22:20)
[2016-10-21] MEDS: Enoxaparin 40 mg Syringe SC SCH (10:53)
[2016-10-21] MEDS: acetaZOLAMIDE 500 mg SR Cap PO SCH ×2 (10:56→17:27)
[2016-10-21] MEDS: RAMELTEON 8 MG PO SCH (11:00)
[2016-10-21 12:02] VITALS: BMI 18.8
--- NOTE | 2016-10-21 14:08 | PN ---
DATE: 10/21/2016 The patient denies any retrosternal chest pain or wheezing. PHYSICAL EXAMINATION: VITAL SIGNS: Blood pressure 110/61, heart rate 80, temperature 98.4, respirations 18. HEENT: Normocephalic. NECK: No JVD. CHEST: Bilateral rhonchi. HEART: S1, S2 regular. EXTREMITIES: No pedal edema. LABORATORIES: Hemoglobin and hematocrit 9.3 and 29.1, white count and platelet count are within norm al limits. SMA-7: Sodium 137, potassium 3.8, chloride 110, CO2 20, glucose 172, BUN 16, creatinine 0.7, alkaline phosphatase is elevated at 351. EKG postoperatively revealed normal sinus rhythm at a rate of 84. ASSESSMENT: 1. Status post intramedullary rodding for left intertrochanteric fracture. 2. Chronic obstructive lung disease. 3. Consider ethyl alcohol withdrawal. 4. Alcoholic liver disease. RECOMMENDATIONS: Continue current Librium at 25 mg p.o. q. 6 hours, subcutaneous Lovenox at 40 mg on ce a day, Lipitor at 10 mg once a day, gabapentin 300 mg t.i.d., Solu-Medrol at 30 mg intravenously q . 12 hours, Zestril at 20 mg once a day. Emilio Amador MD cc: [id number] TT: 10/21/2016 14:08:27 Confirmation # [id number] Dictation # [id number] en
--- NOTE | 2016-10-21 16:56 | PN ---
DATE: 10/21/2016 REFERRING PHYSICIAN: Dr. Ponce SUBJECTIVE: He is lying in the bed, head at 35 degrees. Son is bedside, feeding him lunch. He feel s better, decreased left hip pain. Cough is better. Shortness of breath is better. No nausea, no v omiting, no diarrhea. Denied any leg swelling. OBJECTIVE: GENERAL: No acute distress. VITAL SIGNS: Temp is 98, heart rate is 78, respiratory rate is 18, blood pressure 110/61, pulse ox 9 7% on nasal cannula. HEENT: Moist mucous membrane. No ulcer or oral thrush noted. NECK: Supple. No JVD. LUNGS: Has scattered rhonchi and wheezing. HEART: S1 and S2. ABDOMEN: Soft, nontender. No organomegaly. EXTREMITIES: Has left hip tenderness. Trace left leg edema. NEUROLOGIC: Awake, alert, follows simple commands. He is legally blind. MEDICATIONS: He is on albuterol-Atrovent nebulizer q. 6 hours, Atarax 25 mg at bedtime, Brovana 15 m cg inhaled twice a day, Daliresp 500 mcg daily, Diamox 500 mg twice a day, doxycycline 100 mg twice a day, Effexor 37.5 mg daily, Librium 25 mg q. 6 hours, Lipitor 10 mg daily, Lovenox 40 mg daily, benny pentin 300 mg 3 times a day, Nicoderm patch daily, Percocet 5/325 one tab q. 4 hours p.r.n., Protonix 40 mg daily, Pulmicort inhaled twice a day, Rozerem 8 mg daily, Singulair 10 mg daily, Solu-Medrol 3 0 mg q. 12 hours, vitamin B 100 mg daily, lisinopril 20 mg daily, Zofran p.r.n. basis. LABORATORY DATA: Shows hemoglobin 9.3, hematocrit 29.1, WBC 8.7, platelet is 132. Sodium 137, potas sium 3.8, chloride 110, bicarbonate 20, BUN 16, creatinine 0.7, glucose 172, calcium is 8.4, AST 40, ALT 25, alkaline phosphatase is 351, albumin is 2.8. TSH 0.41. IMPRESSION AND PLAN: Status post fall with left hip intertrochanteric fracture, status post hip repl acement, chronic obstructive lung disease, alcohol abuse, legally blind. I spoke to patient's son at bedside. All their questions answered. Continue p.o. and inhaled bronchodilator. Keep head at 45 degrees. Gastric prophylaxis. Deep venous thrombosis prophylaxis. Fall precautions. When cleared by orthopedic, start therapy. Thank you and we will follow with you. Theodore Atkins MD cc: [id number] TT: 10/21/2016 16:55:41 Confirmation # [id number] Dictation # [id number] en
[2016-10-21] MEDS: Latanoprost 2.5 ml Opht Soln OU SCH (17:28)
--- NOTE | 2016-10-21 19:26 | PN ---
DATE: 10/21/2016 SUBJECTIVE: The patient was seen and examined on the bedside, sleepy, arousable, feeling better, dec reased leg pain. Cough is better. Shortness of breath is better. Anxiety is getting better. No fe cherelle, no chills. PHYSICAL EXAMINATION: VITAL SIGNS: Temperature 98, heart rate 78, respiratory rate 18, and blood pressure 110/61, pulse ox imeter 97% on room air. HEENT: Head normocephalic, atraumatic. Eyes: PERRLA. Extraocular muscles intact. Conjunctivae are clear. Nose patent. NECK: Supple. No carotid bruit, JVD or thyromegaly. CHEST: Bilaterally symmetrical. HEART: S1, S2 positive. LUNGS: Have scattered rhonchi and wheezing. ABDOMEN: Soft and nontender. No organomegaly. EXTREMITIES: Has left hip tenderness. Trace left leg edema. NEUROLOGIC: The patient is awake, alert and follows simple commands. He is legally blind. MEDICATIONS: Albuterol, Atarax, Brovana, Daliresp, Diamox, doxycycline, Effexor, tapering doses of L ibrium protocol, Lovenox, gabapentin, Nicoderm patch, Percocet, Protonix, Pulmicort, Singulair , Solu-Medrol, vitamin B1, lisinopril, Zofran. LABORATORY DATA: Hemoglobin 9.3, hematocrit 29.1, white blood cells 8.7, platelets 132. Sodium 137, potassium 3.8, BUN 16, creatinine 0.7, glucose 172, AST 40, ALT 25. PSA 0.41. ASSESSMENT AND PLAN: The patient is a 70-year-old male with history of ethanol abuse, alcohol level was high when he came. Today early in the morning nurse called me that patient is very anxious and a ltered mental status, looks different, looks like he is going through alcohol withdrawal. Then, I pu t patient on Librium tapering dose. Now when I saw the patient, he was better, status post fall with left hip intertrochanteric fracture, status post hip replacement, chronic lung disease, alcohol abus e, legally blind, history of chronic obstructive pulmonary disease. The patient is getting inhaled b ronchodilators. Gastric prophylaxis and deep vein thrombosis prophylaxis. Fall precautions. Needs physical therapy as soon as orthopedic will give permission. Will decrease the patient's Solu-Medrol . We will follow up. Evie Ponce MD cc: [id number] TT: 10/21/2016 19:25:21 Confirmation # [id number] Dictation # [id number] rn
[2016-10-22] MEDS: Pantoprazole 40 mg EC Tab PO SCH (06:40)
[2016-10-22] MEDS: Arformoterol 15 mcg/2 ml Inh Sol IH SCH ×2 (07:35→21:02)
[2016-10-22] MEDS: Budesonide 0.25 mg/2 ml Inhal Susp UD IH SCH ×2 (07:35→21:02)
--- NOTE | 2016-10-22 08:52 | PN ---
DATE: 10/20/2016 The patient is a 70-year-old male. The patient seen and examined on the bedside before surgery, slee py, arousable. No fever, no chills. No nausea, vomiting, diarrhea. No hematuria, no hematochezia. No headache, no dizziness. PHYSICAL EXAMINATION: VITAL SIGNS: Blood pressure in the morning was 148/75, but after surgery it is 181/102. I gave a do se of clonidine and started enalapril. Respiratory rate 14, pulse 94, temperature 97.6, pulse 87. HEENT: Head normocephalic, atraumatic. Eyes, PERRLA. Extraocular muscles intact. Conjunctivae pin k. Eyelids unremarkable. Nose patent. NECK: Supple. No carotid bruit, no JVD, no thyromegaly. CHEST: Bilaterally symmetrical. HEART: S1, S2 positive. LUNGS: Clear to auscultation. ABDOMEN: Soft. Bowel sounds present. No organomegaly. EXTREMITIES: No edema, no cyanosis. NEUROLOGIC: The patient is awake, alert, moving all 4 extremities. No focal deficits. MEDICATIONS: Albuterol, Atarax, Ativan, Brovana, Daliresp, doxycycline, Effexor, Lipitor, Lovenox, m orphine, Nicoderm, Protonix, Pulmicort, Singulair, Solu-Medrol, thiamine. LABORATORIES: White blood cells 5.4, hemoglobin 10.9, hematocrit 34.3, platelets 138. Sodium 135, p otassium 4.2, BUN 10, creatinine 0.6, glucose 133. ASSESSMENT AND PLAN: The patient is a 70-year-old male with anemia, hyperglycemia, abnormal liver fu nction tests, hyperthyroidism. On admission, alcohol level was 220. Today is less than 10. Seen by the linoleum layer helper, Dr. Amador, for cardiac clearance before surgery. Status post intramedullary r odding for left intertrochanteric fracture, chronic obstructive lung disease, status post alcohol int oxication, improving. According to Dr. Amador, resume telemetry monitoring, get EKG, resume Lipit or for hypercholesterolemia. Continue methylprednisolone every 6 hours. The patient is not a suitab le candidate for full beta jagdeep therapy. 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 Left leg was swollen. Dr. Atkins had discussion with patient's son. All question s answered. Getting Ativan for agitation and alcohol withdrawal intoxication. Gastrointestinal and deep venous thrombosis prophylaxis. Repeat labs. We will follow up. Evie Ponce MD cc: [id number] TT: 10/21/2016 10:09:49 Confirmation # [id number] Dictation # [id number] en
--- NOTE | 2016-10-22 08:53 | OP ---
PROCEDURE DATE: 10/20/2016 SURGEON: Tanner Tam M.D. RISK MGR: Dr Marinelli, resident. PREOPERATIVE DIAGNOSIS: Displaced left intratrochanteric hip fracture. POSTOPERATIVE DIAGNOSIS: Displaced left intratrochanteric hip fracture. PROCEDURE: Left hip short TFN nail fixation (Synthes TFN nail). ESTIMATED BLOOD LOSS: 100 mL. ANESTHESIA: General. COMPLICATIONS: None. COMPLICATIONS: None. DISPOSITION: Stable to recovery room. DESCRIPTION OF PROCEDURE: The patient was brought to the operating room and underwent general anesthesia by the anesthesiologist. After this, he was transferred to the traction table and the left lower extremity was placed into the traction tower. The left lower extremity was then prepped and draped in standard surgical fashion. A timeout was performed. Then, under fluoroscopic guidance, the hip was reduced by traction, internal rotation and adduction. This was confirmed on both AP and lateral films to be an anatomic reduction of the fracture. An incision was outlined proximal to the greater trochanteric area, about 3-4 cm in length. Incision was made through subcutaneous tissue down to the gluteus medius muscle. Bleeding was controlled with electrocautery. A hemostat was placed into the greater trochanteric and spread in line with the fibers to develop a starting point for the guidewire. After this, a guidewire was placed in the greater trochanteric area and advanced into the medullary canal. It was checked both on AP and lateral fluoroscopy to be in good and centered placement of the intramedullary canal. After this, an opening reamer was placed over the guidewire and reamed to appropriate length. We then removed the reamer and the guidewire. A short TFN nail with aiming guide was then assembled on the back table, after which it was placed into the left hip intramedullary canal under direct visualization and fluoroscopic guidance. Light mallet taps were used to advance the nail down the canal. It was seated in appropriate length and confirmed again under fluoroscopy. After this, a femoral neck guidewire was placed under fluoroscopy. Again, it was in a center center position both on AP and lateral fluoroscopy. The appropriate length helical blade screw was measured. After this, the canal for helical blade was reamed down to appropriate length. After removing the reamer, the helical blade was selected and impacted into the femoral canal down to the femoral head ending at the subchondral area of the femoral head. The nail was locked proximally with a screwdriver. The neck aiming guide was removed. Then, work was begun on placing the distal locking screw. The trocar was placed over the distal locking nail guide. Skin incision was made for the trocar. Incision was carried down to the lateral cortex of the femoral bone. The trocar was advanced through the cortex and the bone was bicortically drilled through the femur and the nail distal locking hole. Appropriate length was measured with a depth gauge wire. After this, an appropriate screw was selected and placed into the distal locking hole, locking the nail distally. Then, the aiming guide was removed. All wounds were copiously irrigated. Fluoroscopy again confirmed good alignment and placement of the hardware. All screws were of appropriate length. Wounds were then closed with 0 Vicryl for deep layers, followed by 2-0 Vicryl for subcuticular layer and Monocryl for skin. Dermabond was applied. Sterile dressing was applied. The patient was removed from traction. He was extubated and returned to recovery room in excellent condition. Tanner Tam M.D. cc: [id number] TT: 10/22/2016 08:52:35 en MTDD
--- NOTE | 2016-10-22 09:10 | CON ---
DATE: 10/21/2016 REASON FOR CONSULTATION: Left hip fracture. HISTORY OF PRESENT ILLNESS: A 70-year-old male with multiple comorbidities including deafness, blindness, high blood pressure, COPD and alcohol abuse was admitted to the Emergency Room complaining of left hip pain and inability to stand or walk. The patient states he was intoxicated and is unable to recall acute injury or specific injury to his hip. He was admitted to the hospital. Orthopedics was consulted for further evaluation and treatment of his hip. The patient is a community ambulator. PAST MEDICAL HISTORY: Alcohol abuse, smoker of a half pack per day, COPD. ALLERGIES: None. REVIEW OF SYSTEMS: Noted and are in the chart. PHYSICAL EXAMINATION: Of bilateral lower extremities. The patient is tender to palpation over the left groin area. The leg is externally rotated and shortened. Distal pulses +2. The patient has inability to flex or move the hip due to pain. Positive logroll and positive heel strike of the left lower extremity. Sensation is intact throughout both feet. Right lower extremity full range of motion of the hip and knee. No instability or pain. Negative logroll. X-rays of the pelvis and left hip were seen and reviewed, show a displaced left intertrochanteric fracture of the hip. ASSESSMENT: Left hip displaced intertrochanteric fracture. PLAN: I discussed the above findings with the patient and her family members. I recommended surgery for early ambulation and pain control. Surgery will include left hip TFN nail. Risks of surgery include, but not limited to, bleeding, infection, tendon, nerve or vessel injury, instability, chronic pain, potential need for additional surgery in the future, hip replacement. The patient understands the above risks and elected to undergo the procedure. Will schedule this pending preoperative clearance and optimization. Tanner Tam M.D. cc: [id number] TT: 10/22/2016 08:55:04 Confirmation # [id number] Dictation # [id number] padmini CHUNG
[2016-10-22 10:11] LABS: ALB/GLOB RATIO 0.8 (1.1-1.8); ALKALINE PHOSPHATASE 380 U/L (38-133); ALT/SGPT 37 U/L (7-56); AST/SGOT 56 U/L (15-59); BILIRUBIN,TOTAL 0.6 mg/dL (0.2-1.3); BLOOD UREA NITROGEN 19 mg/dL (7-21); CALCIUM 8.6 mg/dL (8.4-10.5); CARBON DIOXIDE 17 mmol/L (21-33); CHLORIDE 114 mmol/L (98-107); GFR AFRICAN-AMERICAN > 60; GLUCOSE,RANDOM 123 mg/dL (70-110); POTASSIUM 3.9 mmol/L (3.6-5.0); SODIUM 140 mmol/L (132-148); TOTAL PROTEIN 6.5 g/dL (5.8-8.3)
[2016-10-22] MEDS: RAMELTEON 8 MG PO SCH (10:39)
[2016-10-22] MEDS: MethylPREDNISolone 40 mg Vial IVP SCH ×2 (10:45→21:58)
[2016-10-22] MEDS: acetaZOLAMIDE 500 mg SR Cap PO SCH ×2 (10:45→18:16)
[2016-10-22] MEDS: Enoxaparin 40 mg Syringe SC SCH (10:46)
[2016-10-22 11:25] LABS: HEMATOCRIT 32.2 % (42.0-52.0); MEAN CELL VOLUME 86.1 fL (80.0-105.0); MEAN CORPUSCULAR HEMOGLOBIN 27.5 pg (25.0-35.0); MEAN PLATELET VOLUME 11.4 fl (7.0-11.0); WHITE BLOOD COUNT 8.9 10^3/ul (4.5-11.0)
--- NOTE | 2016-10-22 13:49 | PN ---
DATE: 10/22/2016 The patient is currently confused, restless and at times, agitated and uncooperative. He is sinus rh ythm on the monitor. PHYSICAL EXAMINATION: VITAL SIGNS: Blood pressure 141/64, heart rate 86, temperature 97.7, respirations 20. HEENT: Normocephalic. NECK: No JVD. CHEST: Bilateral rhonchi. HEART: S1, S2 regular. EXTREMITIES: No edema. LABORATORIES: SMA-7: Sodium 140, potassium 3.9, chloride 114, CO2 of 17, glucose 123, BUN 19, creat inine 0.6. TSH is elevated at 0.41. The lowest normal is 0.46. Hemoglobin and hematocrit 10.3 and 32.2. White count and platelet count are within normal limit. Lower extremity ultrasound with sonog raphic evidence of DVT in the visualized segments. ASSESSMENT: 1. Status post intramedullary rodding for left intratrochanteric fracture. 2. Chronic obstructive lung disease. 3. Alcohol withdrawal. 4. Hypertension and hyperlipidemia. RECOMMENDATIONS: Continue lithium 25 mg q.8 hours, Lipitor 10 mg once a day, morphine sulfate 4 mg i ntravenous q.4 hours p.r.n., thiamine 100 mg once a day, Solu-Medrol 20 mg intravenously q.12 hours a nd Zestril 20 mg once a day. Emilio Amador MD cc: [id number] TT: 10/22/2016 13:48:39 Confirmation # [id number] Dictation # [id number] sn
[2016-10-22] MEDS: Latanoprost 2.5 ml Opht Soln OU SCH (17:15)
--- NOTE | 2016-10-22 21:28 | PN ---
DATE: 10/22/2016 REFERRING PHYSICIAN: Dr. Ponce. SUBJECTIVE: He is lying in the bed, sleepy, arousable, has a mild cough and shortness of breath. No chest pain, no nausea, no vomiting, no diarrhea. Has left hip, some discomfort. OBJECTIVE: GENERAL: In no acute distress. VITAL SIGNS: Temp is 98, heart rate is 83, respiratory rate is 20, blood pressure 153/75, pulse ox 9 8% on room air. HEENT: Moist mucous membrane. Crowded airway. NECK: Supple, no JVD. LUNGS: Has a prolonged expiratory phase with few rhonchi. HEART: S1, S2. ABDOMEN: Soft, nontender. No organomegaly. EXTREMITIES: There is no edema. NEUROLOGIC: Awake, alert, does follow simple commands, very hard of hearing. MEDICATIONS: He is on albuterol-Atrovent nebulizer q. 6 hours p.r.n., Atarax 25 mg at bedtime, Brova na mcg inhaled twice a day, Daliresp 500 mcg daily, estazolam at 500 mg twice a day, doxycycline 100 mg twice a day, Effexor 37.5 p.o. daily, Librium 25 mg q. 8 hours and Librium 25 mg q. 12 hours, Lipi tor 10 mg daily, Lovenox 40 mg daily, morphine 4 mg q. 6 hours, Neurontin 300 mg 3 times a day, Nicod erm patch daily, Percocet 5/325 one tab q. 4 hours p.r.n., Protonix 40 mg daily, Rozerem 8 mg daily, Singulair 10 mg daily, Solu-Medrol 20 mg q. 12 hours, vitamin B 100 mg daily, Zestril 20 mg daily, Zo mauro on a p.r.n. basis. LABORATORY DATA: Shows hemoglobin 10.3, hematocrit 32.2, WBC 8.9, platelet is 164. Sodium 140, pota ssium 3.9, chloride 114, bicarbonate is 17, BUN 19, creatinine 0.6, glucose 123, calcium is 8.6, AST 56, ALT 37, alkaline phosphatase is 380, albumin is 2.9. IMPRESSION AND PLAN: Status post fall with left hip intertrochanteric fracture requiring replacement of hip or alcohol abuse, chronic obstructive lung disease, legally blind. I spoke to nursing staff. Suggested to decrease sedatives. Continue IV and inhaled bronchodilator, pain management. Gastric prophylaxis. Deep vein thrombosis prophylaxis. Follow up labs in the morning. Will benefit from r ehab Thanks and we will follow with you.. Theodore Atkins MD cc: [id number] TT: 10/22/2016 21:27:54 Confirmation # [id number] Dictation # [id number] ln
[2016-10-22] MEDS: Morphine 4 mg/ml ISec IVP PRN (21:59)
--- NOTE | 2016-10-22 23:55 | PN ---
DATE: 10/22/2016 SUBJECTIVE: The patient is seen and examined on the bedside. He is getting cleaned from the nursing staff and having bowel movement. Getting out of bed of that disease. Has a mild cough and shortnes s of breath. No nausea, vomiting, or diarrhea. No hematuria or hematochezia. No fever, no chills. PHYSICAL EXAMINATION: VITAL SIGNS: Temperature 98.1, heart rate 83, respiratory rate 20, blood pressure 153/75, and pulse oximetry 98% on room air. HEAD: Normocephalic, atraumatic. EYES: PERRLA. Extraocular muscles intact. Conjunctivae clear. Nose is patent. NECK: Supple. No carotid bruit, JVD, or thyromegaly. CHEST: Bilaterally symmetrical. HEART: S1, S2 positive. LUNGS: Has a prolonged expiratory phase with few rhonchi. ABDOMEN: Soft, nontender. No organomegaly. EXTREMITIES: There is no edema. NEUROLOGIC: The patient is awake, alert and follows simple commands. He is blind and hard of hearin g. MEDICATIONS: Albuterol, Atarax, Brovana, Daliresp, doxycycline, Effexor, Librium, Lipitor, Lovenox, morphine, Neurontin, Percocet, Protonix, Singulair, Solu-Medrol, vitamins, Zestril, and Zofran. LABORATORY DATA: Hemoglobin 10.3, hematocrit 32.2, white blood cells 8.9, platelets 154. Sodium 140 , potassium 3.9, BUN 19, creatinine 0.6, AST 56, ALT 37. ASSESSMENT AND PLAN: The patient is a 70-year-old male, status post fall with left hip intertrochant pablo fracture, requiring replacement of the hip. History of ethanol abuse, was in delirium tremens ( DTs), getting Librium, tapering dose, chronic obstructive lung disease getting steroid tapering dose, legally blind and deaf. We will decrease the sedation. We will decrease his Librium. Continue IV inhaled bronchodilators, physical therapy, deep vein thrombosis prophylaxis, and gastrointestinal pro phylaxis. We will continue Singulair, Nicoderm patch for smoking, Neurontin for peripheral neuropa thy. Daliresp for asthma. We will follow up. Evie Ponce MD cc: [id number] TT: 10/22/2016 23:54:32 Confirmation # [id number] Dictation # [id number] ln
[2016-10-23] MEDS: Pantoprazole 40 mg EC Tab PO SCH (06:13)
[2016-10-23 07:23] LABS: MEAN CELL VOLUME 86.1 fL (80.0-105.0); MEAN CORPUSCULAR HEMOGLOBIN 27.6 pg (25.0-35.0); MEAN CORPUSCULAR HGB CONC 32.1 g/dl (31.0-37.0); MEAN PLATELET VOLUME 11.5 fl (7.0-11.0); RED CELL DISTRIBUTION WIDTH 15.1 % (11.5-14.5); WHITE BLOOD COUNT 11.5 10^3/ul (4.5-11.0)
[2016-10-23 08:08] LABS: ALB/GLOB RATIO 0.8 (1.1-1.8); ALKALINE PHOSPHATASE 372 U/L (38-133); ALT/SGPT 36 U/L (7-56); AST/SGOT 51 U/L (15-59); BILIRUBIN,TOTAL 0.7 mg/dL (0.2-1.3); BLOOD UREA NITROGEN 21 mg/dL (7-21); CALCIUM 8.7 mg/dL (8.4-10.5); CARBON DIOXIDE 17 mmol/L (21-33); CHLORIDE 114 mmol/L (98-107); GFR AFRICAN-AMERICAN > 60; GLUCOSE,RANDOM 126 mg/dL (70-110); POTASSIUM 3.8 mmol/L (3.6-5.0); SODIUM 140 mmol/L (132-148); TOTAL PROTEIN 6.8 g/dL (5.8-8.3)
[2016-10-23] MEDS: Arformoterol 15 mcg/2 ml Inh Sol IH SCH ×2 (08:14→20:37)
[2016-10-23] MEDS: Budesonide 0.25 mg/2 ml Inhal Susp UD IH SCH ×2 (08:14→20:38)
[2016-10-23] MEDS: MethylPREDNISolone 40 mg Vial IVP SCH ×2 (10:45→21:16)
[2016-10-23] MEDS: Enoxaparin 40 mg Syringe SC SCH (10:45)
[2016-10-23] MEDS: acetaZOLAMIDE 500 mg SR Cap PO SCH ×2 (10:56→18:11)
--- NOTE | 2016-10-23 13:13 | CT ---
PROCEDURE: CT HEAD WITHOUT CONTRAST. HISTORY: altered mental status COMPARISON: Comparison is made to the previous study dated 10/18/2016 TECHNIQUE: Axial computed tomography images were obtained through the head/brain without intravenous contrast. Radiation dose: Total exam DLP = 629.06 mGy-cm. FINDINGS: HEMORRHAGE: No intracranial hemorrhage. BRAIN: No mass effect or edema. Re- demonstration of mild atrophy and mild chronic microvascular white matter ischemic disease. VENTRICLES: Unremarkable. No hydrocephalus. CALVARIUM: Unremarkable. PARANASAL SINUSES: Unremarkable as visualized. No significant inflammatory changes. MASTOID AIR CELLS: Unremarkable as visualized. No inflammatory changes. OTHER FINDINGS: None. IMPRESSION: No evidence of acute intracranial hemorrhage intracranial collection mass effect or midline shift. No significant interval change compared to the previous exam.
--- NOTE | 2016-10-23 14:06 | RAD ---
PROCEDURE: Fluoroscopy up to 1 hr. HISTORY: IM RODDING LEFT HIP COMPARISON: None TECHNIQUE: Standard protocol for this study/examination. FINDINGS: Submitted images from the current procedure: 3.0 IMPRESSION: Less than 1 hr fluoroscopic time utilized during performance of the procedure.
[2016-10-23] MEDS: RAMELTEON 8 MG PO SCH (14:41)
[2016-10-23] MEDS: Latanoprost 2.5 ml Opht Soln OU SCH (18:11)
[2016-10-23] MEDS ORDERED: Morphine 2 mg/ml ISec IVP PRN ×2 (22:40→22:52)
[2016-10-23] MEDS ORDERED: MethylPREDNISolone 40 mg Vial IVP SCH (22:51)
--- NOTE | 2016-10-23 23:11 | PN ---
DATE: 10/23/2016 REFERRING PHYSICIAN: Dr. Ponce. SUBJECTIVELY: The patient is lying in the bed, sleepy, arousable. No headache, no rhinitis. Cough is better. No shortness of breath. No nausea, no vomiting. Mild left hip pain. No leg swelling. OBJECTIVELY: No acute distress. Temp is 98, heart rate is 94, respiratory rate is 20, blood pressure 123/73, pulse ox 99% on nasal ca nnula. HENT: Moist mucous membrane. Small oral cavity. NECK: Supple, no JVD. LUNGS: Have scattered rhonchi, prolonged expiratory phase. HEART: S1 and S2. ABDOMEN: Soft, nontender, nondistended. EXTREMITIES: Has a left hip incision site looks okay, mild tenderness. NEUROLOGICALLY: Sleepy, arousable. Follows simple commands. MEDICATIONS: He is on albuterol/Atrovent nebulizer q. 6 hours p.r.n., Atarax 25 mg at bedtime, Brova na 15 mcg inhaled twice a day, Daliresp 500 mcg daily, Diamox 500 mg twice a day, doxycycline 100 mg twice a day, Effexor 37.5 mg daily, Lipitor 10 mg daily, Lovenox 40 mg daily, morphine 4 mg IV q. 4 h ours p.r.n., Neurontin 300 mg 3 times a day, Nicoderm patch daily, Protonix 40 mg daily, Pulmicort i nhaled twice a day, Rozerem 8 mg daily, Singulair 10 mg at bedtime, Solu-Medrol 20 mg q. 12 hours, vi tamin B 500 mg daily, Zestril 20 mg daily, Zofran p.r.n. basis. LABORATORY DATA: Shows hemoglobin 10.9, hematocrit 34.0, WBC 11.5, platelet is 188. Sodium 140, pot assium 3.8, chloride 114, bicarbonate is 17, BUN 21, creatinine 0.7, glucose 126, calcium 8.7. AST 5 1, ALT 36, alk phos is 372, albumin is 3.0. CAT scan of the head is done today which shows no evidence of acute infection, no hemorrhage, intracu taneous collection, mass effect, or midline shift. No significant interval changes compared to previ ous exam. IMPRESSION AND PLAN: Status post fall with hip fracture requiring replacement, history of alcohol ab use, chronic obstructive lung disease, legally blind. He is sleepy. Spoke to nursing staff and requested to discontinue Librium. Will also discontinue Neurontin. Only use morphine p.r.n. basis. Continue IV and inhaled bronchodilator. Continue antibiotics. Aspiratio n precaution. Out of bed to chair, start physical therapy is okay with orthopedic. Thank you, and will follow with you. Theodore Atkins MD cc: [id number] TT: 10/23/2016 23:11:00 Confirmation # [id number] Dictation # [id number] jn
--- NOTE | 2016-10-24 04:05 | PN ---
DATE: 10/23/2016 SUBJECTIVE: The patient is a 70-year-old female. The patient was seen and examined at the bedside, sleepy, arousable. Daughter was sitting on the bedside. Daughter told me her mother is in the rehab for 4 years. The patient, according to her daughter, father is drinking a lot of the throat. No fe cherelle, no chills, no nausea, vomiting, or diarrhea. No complaining about pain. Because the patient wa s sleepy and drowsy, we discontinued and Librium treatment. PHYSICAL EXAMINATION: VITAL SIGNS: Temperature 97.9, pulse 86, blood pressure 122/70, respiratory rate 20. HEENT: Head normocephalic, atraumatic. Eyes: PERRLA. Extraocular muscles intact. Conjunctivae pi nk. Eyelids unremarkable. Nose patent. Mucous membranes moist. NECK: Supple. No carotid bruit, JVD, or thyromegaly. CHEST: Bilaterally symmetrical. HEART: S1, S2 positive. LUNGS: Clear to auscultation. ABDOMEN: Soft. Bowel sounds present. No organomegaly. EXTREMITIES: No edema, no cyanosis. NEUROLOGIC: The patient is sleepy, arousable, moving all 4 extremities upon awakening. MEDICATIONS: Albuterol, Atarax, Brovana, Daliresp, doxycycline, Effexor, Lipitor, Lovenox, morphine, Nicoderm, Protonix, Pulmicort, Singulair, Solu-Medrol, vitamin B1 eyedrops, Zestril, and Zofran. LABORATORY DATA: White blood cells 11.5, hemoglobin 10.9, hematocrit 34.0, platelets 188. Sodium 14 0, potassium 3.8, BUN 21, creatinine 1.7, glucose 126. ASSESSMENT AND PLAN: The patient is a 70-year-old male in with leukocytosis, anemia, with hyperglyce cristal. He was seen by Dr. Atkins, distribution engineering technologist, status post fall with left hip intertrochanteric frac ture requiring replacement of the hip, alcohol abuse, chronic obstructive lung disease, legally blind and deaf. Decreased Librium by Dr. Atkins. We will decrease morphine. Gastric prophylaxis, deep v ein thrombosis prophylaxis, needed rehab. Discussion done with the daughter. Continue albuterol, At arax, Brovana, Effexor, Nicoderm patch, Zestril for blood pressure. We will follow up. Evie Ponce MD cc: [id number] TT: 10/24/2016 04:04:28 Confirmation # [id number] Dictation # [id number] vn
[2016-10-24] MEDS: Pantoprazole 40 mg EC Tab PO SCH (06:12)
[2016-10-24 07:32] LABS: ALB/GLOB RATIO 0.8 (1.1-1.8); ALKALINE PHOSPHATASE 386 U/L (38-133); ALT/SGPT 44 U/L (7-56); AST/SGOT 52 U/L (15-59); BILIRUBIN,TOTAL 0.9 mg/dL (0.2-1.3); BLOOD UREA NITROGEN 23 mg/dL (7-21); CALCIUM 8.7 mg/dL (8.4-10.5); CARBON DIOXIDE 14 mmol/L (21-33); CHLORIDE 117 mmol/L (98-107); GFR AFRICAN-AMERICAN > 60; GLUCOSE,RANDOM 110 mg/dL (70-110); POTASSIUM 4.1 mmol/L (3.6-5.0); SODIUM 144 mmol/L (132-148); TOTAL PROTEIN 7.2 g/dL (5.8-8.3)
[2016-10-24 07:39] LABS: HEMATOCRIT 36.1 % (42.0-52.0); MEAN CELL VOLUME 86.4 fL (80.0-105.0); MEAN CORPUSCULAR HGB CONC 32.4 g/dl (31.0-37.0); MEAN PLATELET VOLUME 10.9 fl (7.0-11.0); RED CELL DISTRIBUTION WIDTH 15.2 % (11.5-14.5); WHITE BLOOD COUNT 12.4 10^3/ul (4.5-11.0)
[2016-10-24] MEDS: Arformoterol 15 mcg/2 ml Inh Sol IH SCH ×2 (07:53→19:18)
[2016-10-24] MEDS: Budesonide 0.25 mg/2 ml Inhal Susp UD IH SCH ×2 (07:54→19:19)
[2016-10-24] MEDS: Enoxaparin 40 mg Syringe SC SCH (10:03)
--- NOTE | 2016-10-24 12:00 | CON ---
DATE: 10/24/2016 HISTORY OF PRESENT ILLNESS: Shortly, the patient is a 70-year-old male. The patient was admitted on the medical floor for left leg pain, status post fall. The patient broke his hip and had surgery do ne. The patient has multiple medical issues including deafness on the left ear, blindness, hypertens ion, hyperlipidemia, COPD, and alcohol abuse and dependence. Psych consult was called for evaluation of capacity to make decision about his discharge plan. The patient was seen and examined. Discusse d with the medical team and social workers. This video game script writer attempted to evaluate the patient. The patie nt was deeply sleeping, was not able to open his eyes and participate in interview, but collaterals w ere obtained from the nursing staff. The patient was confused yesterday, did not know what was the d ate and where he is. At the same time, the patient does not have any aggression or agitation. As pe r social work collaterals, patient has a brother who is involved into his care. At the same time, th e patient has a daughter with whom patient lives. As per psychiatric social worker information, patient did not want to go to rehab because he did not have pleasant experience in the past in the rehab. At the same time, this video game script writer reviewed past history. The patient was evaluated by Dr. Davis and that was in . It was documented that patient has history of alcohol dementia and also did not have capacity to make decisions about his disposition plan back then. This video game script writer reviewed vital signs, seem to be stable. Temperature 98, pulse is 97, blood pressure 141 /82, respirations 18, oxygen saturation is 100. MEDICATIONS: Reviewed. Albuterol, Brovana, Lipitor, Pulmicort, doxycycline, Lovenox, Xalatan, Zestr il, Solu-Medrol, Singulair, morphine, Nicoderm, Protonix, vitamin B1 and Effexor. This video game script writer is not sure who started Effexor for this patient. The patient still has leukocytosis. WBC cells 12.4, hemoglobin and hematocrit 11.7 and 36.1. Coagul ation is reviewed. Chemistry reviewed. The patient has chloride 117, BUN 23. Toxicology reviewed. Alcohol at the time of admission was 220. As per collateral from the family as well as from the [facility] team, the patient had recent loss of his son and that is why he was drinking on daily basis, and as per patient's brother, patient was feeling more depressed recently. MENTAL STATUS EXAMINATION: This video game script writer was not able to assess mental status because patient was deep ly sedated and sleeping. IMPRESSION: As per history, the patient has history of alcohol-related dementia, alcohol use disorde r. The patient was more depressed recently, recent loss of his son. Rule out adjustment disorder. The patient is status post fall with left hip, intratrochanteric fracture and patient required to hav e replacement of the hip. The patient also has COPD. The patient is legally blind and deaf. PLAN: Librium was weaned off. Morphine was decreased because patient was more sedated recently. Th is video game script writer was not able to have full examination of mental status because the patient was deeply sedat ed. Based on previous history, patient has history of alcohol-related dementia, yesterday was confus ed. The patient lacked capacity to participate in discharge plan last admission, which took place mo re than 2 years ago. Considering the fact that patient has dementia, it is highly unlikely that ment al status is improved to compare with the previous admission, but still this video game script writer needs to have ful l examination. Thank you very much for letting me participate in the care of your patient. I will follow up and adv ise accordingly. Clarissa Law MD cc: [phone] TT: 10/24/2016 12:00:02 Confirmation # [id number] Dictation # [id number] jeremy
--- NOTE | 2016-10-24 15:14 | CP.PCM.PCO ---
Physician Communication Note - Physician Communication Note Physician Communication Note: geodon and ativan will be started, pt was agitated , most likely delirious
--- NOTE | 2016-10-24 15:14 | CT ---
PROCEDURE: CT HEAD WITHOUT CONTRAST. HISTORY: AMS COMPARISON: 10/23/2016 TECHNIQUE: Axial computed tomography images were obtained through the head/brain without intravenous contrast. Radiation dose: Total exam DLP = mGy-cm. FINDINGS: HEMORRHAGE: No intracranial hemorrhage. BRAIN: No mass effect or edema. Mild atrophy as before VENTRICLES: Size commensurate with the degree of atrophy and patient's age CALVARIUM: Unremarkable. PARANASAL SINUSES: Small incidental left intra retention cyst. . No gross air-fluid levels to suggest acute sinusitis MASTOID AIR CELLS: Unremarkable as visualized. No inflammatory changes. OTHER FINDINGS: None. IMPRESSION: No intracranial hemorrhage or mass effect. Mild cerebral atrophy-unchanged Incidental left maxillary sinus retention cyst
--- NOTE | 2016-10-24 15:18 | PN ---
DATE: 10/24/2016 REFERRING PHYSICIAN: Dr. Ponce. SUBJECTIVE: He is lying in the bed, coughing, unable to clear pulmonary secretion. No hemoptysis. Did eat his breakfast. Some of the medication he is refusing. According to nursing staff, he was ve ry agitated this morning, but at my examination, he is sleepy and tired. No hemoptysis, no vomiting, no hematuria, no diarrhea. Mild left hip pain. OBJECTIVE: GENERAL: In no acute distress. VITAL SIGNS: Temp is 98, heart rate is 97, respiratory rate is 18, blood pressure 141/82, pulse ox 1 00% on nasal cannula. HEENT: Moist mucous membrane. Crowded airway. NECK: Supple. No JVD. LUNGS: Scattered rhonchi. HEART: S1, S2. ABDOMEN: Soft, nontender. No organomegaly. EXTREMITIES: Left hip mild tenderness. NEUROLOGIC: Sleepy, arousable, moving all 4 extremities. MEDICATIONS: He is on albuterol-Atrovent nebulizer q. 6 hours p.r.n., Brovana 15 mcg inhaled twice a day, Daliresp 500 mcg daily, doxycycline 100 mg twice a day, Effexor 37.5 mg daily, Lipitor 10 mg da taya, Lovenox 40 mg daily, morphine 0.5 mg q. 4 hours p.r.n., NicoDerm patch daily, Protonix 40 mg criss ly, Pulmicort inhaled twice a day, Rozerem 8 mg daily, Singulair 10 mg daily, Solu-Medrol 10 mg IV q. 12 hours, multivitamins daily, Zestril 20 mg daily. LABORATORY DATA: Shows hemoglobin 11.7, hematocrit 36.1, WBC 12.4, platelet is 204. Sodium 144, pot assium 4.1, chloride 117, bicarbonate is 14. BUN 23, creatinine 0.7. Glucose is 110. AST 52, ALT 4 4, alkaline phosphatase is 386. TSH is 0.4. Has a CAT scan of the head done yesterday, which was sonia redding and orthopedic surgery sent for another CAT scan, report is pending. IMPRESSION AND PLAN: Status post fall with hip fracture requiring hip replacement, alcohol abuse, ch ronic obstructive lung disease, legally blind, had alcohol withdrawal requiring sedatives. According to nursing staff, he became very agitated at times, other times he is in deep sleep, so CAT scan of the head done yesterday, which was unremarkable. New CAT scan being done today. I spoke to the nurs ing staff, nurse practitioner. I requested to discontinue sedatives. Keep head elevated at 45 degre es. Fall precautions. Gastric prophylaxis. Sequential compression device to lower extremities. Di scontinue Solu-Medrol. Start prednisone tapered dose. manager student services consult. Follow up labs in t he morning. We will follow with you. Theodore Atkins MD cc: [id number] TT: 10/24/2016 15:17:30 Confirmation # [id number] Dictation # [id number] jeremy
--- NOTE | 2016-10-24 15:41 | PN ---
DATE: 10/24/2016 The patient is still agitated at times, and lethargic at times, confused and uncooperative. VITAL SIGNS: Blood pressure 141/84, heart rate 97, temperature 98, respiration 18. HENT: Normocephalic. NECK: No JVD. CHEST: Bilateral rhonchi. HEART: S1, S2 regular. EXTREMITIES: No edema. LABORATORIES: Hemoglobin and hematocrit 11.7 and 36.1, white count 12.4, platelet count 204. SMA-7 today: Sodium 144, potassium 4.1, chloride 117, CO2 of 14, glucose 110, BUN 23, creatinine 0.7. ASSESSMENT: 1. Status post intramedullary grafting for left intertrochanteric fracture. 2. Chronic obstructive lung disease. 3. Altered mental status. Consider alcohol withdrawal. 4. Hypertension. RECOMMENDATIONS: Continue current Zestril, thiamine, subcutaneous Lovenox, and Lipitor, oral doxycyc line, and bronchodilators. I did order head CT scan without contrast, and neurology consult has been requested. Emilio Amador MD cc: [id number] TT: 10/24/2016 15:40:18 Confirmation # [id number] Dictation # [id number] jn
[2016-10-24] MEDS: Latanoprost 2.5 ml Opht Soln OU SCH (17:05)
[2016-10-24] MEDS: RAMELTEON 8 MG PO SCH (17:05)
[2016-10-24] MEDS: Multivitamin (MVI) 10 ML, Thiamine 100 MG, Folic Acid 1 MG in Dextrose 5%/0.45% NS 1,00... IV SCH (18:36)
--- NOTE | 2016-10-24 21:41 | CON ---
DATE: 10/24/2016 This is a 70-year-old [place]ian male, hard of hearing, and decreased vision, and legally blind, and ca me and had fall and broke left hip, status post ORIF left hip repair 3-4 days ago, and now patient is found lethargic. The patient also has a history of alcohol abuse, COPD, and called to evaluate the patient. PAST MEDICAL HISTORY: COPD, alcohol abuse. SOCIAL HISTORY: Lives with her daughter. Does smoke and drink. ALLERGIES: No known drug allergies. REVIEW OF SYSTEMS: A 10-point review of systems negative except sleepy and lethargic. PHYSICAL EXAMINATION: HEENT: Normocephalic, atraumatic. NECK: Supple. NEUROLOGIC EXAMINATION: The patient lethargic, eyes closed, and open at times, but does not follow s imple commands, and more sleepy and lethargic. MOTOR: Spontaneous movement of extremities noted. DEEP TENDON REFLEXES: 1+. Both plantars are downgoing. SENSORY: Appears intact. CEREBELLAR: Gait deferred. IMPRESSION : Encephalopathy, possibly secondary to alcohol withdrawal. CAT scan of the head was don e which was reported negative, and suggested to give thiamine and banana bag, and will follow up. Volodymyr Post MD cc: [id number] TT: 10/24/2016 21:40:36 Confirmation # [id number] Dictation # [id number] angi
--- NOTE | 2016-10-24 23:19 | PN ---
DATE: 10/24/2016 SUBJECTIVE: The patient is seen and examined at the bedside. The patient is sleepy, lethargic, with decreased vision, legally blind; having pain in the left hip, status post ORIF 3-4 days ago. The ale toney also has history of alcohol abuse. The patient was seen at the bedside with the nursing staff. Discussion done, that we need revaluation by the neurologist and psychiatrist. Actually, the patie nt had CT scan done 2 times, reviewed by me. PHYSICAL EXAMINATION: VITAL SIGNS: Temperature 97.4, pulse 98, blood pressure 131/66, respiratory rate 18. HEENT: Head normocephalic, atraumatic. Eyes closed. Nose is patent. Mucous membranes are moist. NECK: Supple. No carotid bruit, thyromegaly. CHEST: Bilaterally symmetrical. HEART: S1, S2 positive. LUNGS: Clear to auscultation. ABDOMEN: Soft. Bowel sounds positive. No organomegaly. EXTREMITIES: No edema, no cyanosis. MEDICATIONS: Albuterol, Brovana, Daliresp, doxycycline, Geodon, Lipitor, Lovenox, banana bag, Nicode rm patch, Protonix. LABORATORY DATA: White blood cells 12.4, hemoglobin 11.7, hematocrit 36.1, platelets 204. Sodium 14 4, potassium 4.1, BUN 23, creatinine 0.7, glucose of 110, alkaline phosphatase 386. ASSESSMENT AND PLAN: The patient is a 70-year-old male with leukocytosis, anemia, history of ethanol abuse. The patient was seen by the wood setter, Dr. Amador, status post intramedullary grafting for left intertrochanteric fracture, chronic lung disease, altered mental status, concern for alcoh ol withdrawal with DTs, hypertension. Seen by the screw machine operator, Dr. Atkins. Chronic lung disease. Legally blind. Actually, when nursing was changing the patient, he became very agitated, and after that he went to sleep. A new CT scan done today, reviewed by me. Discontinue all his Librium and m orphine. Keep head elevated, fall precautions, gastric prophylaxis, sequential compression devices t o lower extremities, discontinue Solu-Medrol, tapering dose of steroids. Waiting for neurologist's i nput. We will follow up. Evie Ponce MD cc: [id number] TT: 10/24/2016 23:18:46 Confirmation # [id number] Dictation # [id number] vn
[2016-10-25] MEDS: Pantoprazole 40 mg EC Tab PO SCH (05:47)
[2016-10-25 07:14] LABS: HEMATOCRIT 34.1 % (42.0-52.0); MEAN CELL VOLUME 85.3 fL (80.0-105.0); MEAN CORPUSCULAR HGB CONC 31.7 g/dl (31.0-37.0); MEAN PLATELET VOLUME 10.8 fl (7.0-11.0); RED CELL DISTRIBUTION WIDTH 14.9 % (11.5-14.5); WHITE BLOOD COUNT 10.8 10^3/ul (4.5-11.0)
[2016-10-25 07:22] LABS: ALB/GLOB RATIO 0.9 (1.1-1.8); ALKALINE PHOSPHATASE 331 U/L (38-133); ALT/SGPT 44 U/L (7-56); AST/SGOT 56 U/L (15-59); BLOOD UREA NITROGEN 19 mg/dL (7-21); CALCIUM 8.4 mg/dL (8.4-10.5); CARBON DIOXIDE 19 mmol/L (21-33); CHLORIDE 114 mmol/L (98-107); GFR AFRICAN-AMERICAN > 60; GLUCOSE,RANDOM 115 mg/dL (70-110); POTASSIUM 3.2 mmol/L (3.6-5.0); SODIUM 142 mmol/L (132-148); TOTAL PROTEIN 6.9 g/dL (5.8-8.3)
[2016-10-25] MEDS: Budesonide 0.25 mg/2 ml Inhal Susp UD IH SCH ×2 (08:19→19:04)
[2016-10-25] MEDS: Arformoterol 15 mcg/2 ml Inh Sol IH SCH ×2 (08:19→19:04)
[2016-10-25] MEDS: RAMELTEON 8 MG PO SCH (09:22)
[2016-10-25] MEDS: Enoxaparin 40 mg Syringe SC SCH (09:25)
[2016-10-25] MEDS: Multivitamin (MVI) 10 ML, Thiamine 100 MG, Folic Acid 1 MG in Dextrose 5%/0.45% NS 1,00... IV SCH (09:25)
[2016-10-25] MEDS: Potassium Chloride 20 mEq 100 ML IVPB SCH ×2 (10:49→13:02)
--- NOTE | 2016-10-25 15:47 | PN ---
DATE: 10/25/2016 The patient was followed up today at the morning time. The patient did not have any change in his pr esentation. The patient is sleepy, lethargic. The patient is moaning, but patient was able to say t hat "I am okay". The patient is status post open reduction and internal fixation 3 or 4 days ago. T he patient who also has history of alcohol use disorder and patient was drinking recently. As per analia rodriguez, the patient also was depressed recently. At present moment, there is no option to have meaning ful conversation because patient was lethargic and also was just moaning on all of the questions. VITAL SIGNS: Reviewed. Temperature 99.9, pulse is 95, blood pressure 140/75, respirations 20, oxyge n saturation 99. MEDICATIONS: Reviewed. This music writer started Ativan 0.5 mg IV push 3 times a day as well as Geodon ye because this music writer had impression most likely patient is delirious, which could be related t o alcohol withdrawal delirium as well as status post surgery as well as patient is on antibiotics. F rom this music writer's perspective, the patient is on Geodon 10 mg q. 12 hours as needed. The patient was not agitated. The patient also is on thiamine and also Ativan 0.5 mg 3 times a day scheduled, as we ll as multivitamins, thiamine and folic acid, banana bag. LABORATORY DATA: Reviewed. WBC count is going down, today is 10.8. Hemoglobin and hematocrit is 10 .8 and 34.1. Coagulation reviewed. Chemistry reviewed. Toxicology: Alcohol level was 220. MENTAL STATUS EXAMINATION: The patient is lethargic, was able to open his eyes, but falling back asl eep. The patient is moaning said that "I'm okay". There is no option to have a meaningful conversat ion and full mental status examination is not feasibly possible at the present moment. IMPRESSION: Most likely the patient is hypo-actively delirious due to multiple medical issues and al cohol withdrawal. PLAN: Continue current management. Continue current medications. Ativan 0.5 mg 3 times a day as ne Meaghan walls, banana bag. The patient was seen by neurology team. They also had impression the brendon ent has encephalopathy, will follow up and advised accordingly. At present moment, patient has no ca pacity to sign consent for treatment or participate in discharge planning. Should you have any quest ions, give me a call back. Clarissa Law MD cc: [id number] TT: 10/25/2016 15:45:57 Confirmation # [id number] Dictation # [id number] jn
[2016-10-25] MEDS: Latanoprost 2.5 ml Opht Soln OU SCH (16:09)
--- NOTE | 2016-10-25 23:14 | PN ---
DATE: 10/25/2016 SUBJECTIVE: The patient is a 60-year-old male seen on his bed. Still sleepy, but arousable. Not able to give a complete review of systems. No fever, no chills. no nausea, vomiting, or diarrhea. PHYSICAL EXAMINATION: VITAL SIGNS: Temperature 98.6, pulse 101, blood pressure 148/72, respiratory rate 18. HEENT: Head normocephalic, atraumatic. Eyes: PERRLA. Extraocular muscles intact. Conjunctivae pink. Eyelids unremarkable. Nose patent. NECK: Supple. No carotid bruit. No JVD or thyromegaly. CHEST: Bilaterally symmetrical. HEART: S1, S2 positive. LUNGS: Clear to auscultation. ABDOMEN: Soft. Bowel sounds positive. No organomegaly. EXTREMITIES: No edema, no cyanosis. NEUROLOGIC: The patient is sleepy, cannot undergo complete neurological examination. MEDICATIONS: Albuterol, Ativan, Brovana, Daliresp, doxycycline, Geodon, Lipitor , Lovenox, multivitamin, nicotine patch, Protonix, Pulmicort Respules, Rozerem, Singulair, Vitamin B1, Zestril. LABORATORY DATA: White blood cells 10.8, hemoglobin 10.8, hematocrit 34.1, platelets noted . Sodium 132, potassium 3.2, BUN 19, creatinine was 0.8, glucose 115. Alkaline phosphatase 331. ASSESSMENT: The patient is a 70-year-old male with 1. History of leukocytosis, improved. 2. Anemia. 3. Hypokalemia, replaced. 4. Hyperchloremia. 5. Hyperglycemia 6. Increased alkaline phosphatase. 7. History of ethanol abuse, seen by psychiatrist and Dr. Law. The patient has history of delirium, may be due to multiple medical issues and alcohol withdrawal, according to the psychiatrist. Continue with present treatment. Continue present medication. The patient is getting banana bag. Neurology is on the case. The patient has encephalopathy. CAT scan of the head done which was reportedly negative and suggested to give thiamine and banana bag as per neurologist. 8. The patient is legally blind and deaf. 9. He had a fall and broke his left hip, status post open reduction internal fixation of left hip repair, almost 4-5 days ago. Now patient was found lethargic. 10. Chronic obstructive lung disease. 11. Yesterday, we have one episode of agitation. 12. History of coronary artery disease. 13. Gastrointestinal and deep vein thrombosis prophylaxis. The neurologist on the case, orthopedic is on the case, potato peeler, and supervisor hot dip plating on the case. We will follow up. Evie Ponce MD cc: [id number] TT: 10/25/2016 23:13:21 Confirmation # [id number] Dictation # [id number] ln MTDD
--- NOTE | 2016-10-25 23:34 | PN ---
DATE: 10/25/2016 REFERRING PHYSICIAN: Dr. Ponce. SUBJECTIVE: He is lying in the bed, sleepy, and partially sedated, seen by psychiatrist. He has acu te psychosis with alcohol withdrawal. No hemoptysis. Has some cough, clear sputum production. No n ausea, no vomiting, diarrhea. No leg pain or leg swelling reported. OBJECTIVE: GENERAL: No acute distress. VITAL SIGNS: Temp is 98, heart rate is 95, respiratory rate is 20, blood pressure 148/72, pulse ox 9 8% on 2L nasal cannula. HEENT: Small oral cavity. NECK: Supple, no JVD. LUNGS: Scattered rhonchi, has a poor effort. HEART: S1, S2. ABDOMEN: Soft, nontender. No organomegaly. EXTREMITIES: There is no edema. NEUROLOGIC: Sleepy, arousable, moving all 4 extremities. MEDICATIONS: He is on DuoNeb q. 6 hours p.r.n., Brovana 15 mcg inhaled twice a day, Daliresp 500 mcg daily, doxycycline 100 mg daily, Lipitor 10 mg daily, Lovenox 40 mg daily. Getting IV fluid, vitami n C, thiamine, and folic acid 100 mL per hour, Nicoderm patch daily, Protonix 40 mg daily, Pulmicort inhaled daily, Singulair 10 mg daily, vitamin C 500 mg daily, Zestril 20 mg daily, LABORATORY DATA: Shows hemoglobin 10.8, hematocrit 34.1, WBC 10.8, platelet is 216. IMPRESSION AND PLAN: According to psychiatry service hypoactive delusions component of alcohol withd shante, rule out psychosis, chronic obstructive lung disease, legally blind, alcohol abuse, status pos t fall with left hip fracture requiring ortho surgery. Pulmonary point of view, keep head elevated a t 45 degree, bronchodilator, aspiration precaution, try to cut down the sedation as much as possible. P.r.n. mouth suction. Gastric prophylaxis. Deep venous thrombosis prophylaxis. On IV fluid. Fol low up labs in the morning. Thank you very much, we will follow with you. Theodore Atkins MD cc: [id number] TT: 10/25/2016 23:33:37 Confirmation # [id number] Dictation # [id number] ln
[2016-10-26] MEDS: Pantoprazole 40 mg EC Tab PO SCH (06:39)
[2016-10-26 07:09] LABS: HEMATOCRIT 30.7 % (42.0-52.0); MEAN CELL VOLUME 84.6 fL (80.0-105.0); MEAN CORPUSCULAR HEMOGLOBIN 27.5 pg (25.0-35.0); MEAN CORPUSCULAR HGB CONC 32.6 g/dl (31.0-37.0); MEAN PLATELET VOLUME 10.5 fl (7.0-11.0); RED CELL DISTRIBUTION WIDTH 14.9 % (11.5-14.5); WHITE BLOOD COUNT 9.4 10^3/ul (4.5-11.0)
[2016-10-26 07:49] LABS: ALB/GLOB RATIO 0.9 (1.1-1.8); ALKALINE PHOSPHATASE 302 U/L (38-133); ALT/SGPT 43 U/L (7-56); AST/SGOT 51 U/L (15-59); BILIRUBIN,TOTAL 1.1 mg/dL (0.2-1.3); BLOOD UREA NITROGEN 13 mg/dL (7-21); CALCIUM 8.5 mg/dL (8.4-10.5); CARBON DIOXIDE 21 mmol/L (21-33); CHLORIDE 111 mmol/L (98-107); GFR AFRICAN-AMERICAN > 60; GLUCOSE,RANDOM 129 mg/dL (70-110); POTASSIUM 3.5 mmol/L (3.6-5.0); SODIUM 140 mmol/L (132-148); TOTAL PROTEIN 6.6 g/dL (5.8-8.3)
[2016-10-26] MEDS: Budesonide 0.25 mg/2 ml Inhal Susp UD IH SCH ×2 (07:51→19:14)
[2016-10-26] MEDS: Arformoterol 15 mcg/2 ml Inh Sol IH SCH ×2 (07:51→19:14)
[2016-10-26] MEDS: Multivitamin (MVI) 10 ML, Thiamine 100 MG, Folic Acid 1 MG in Dextrose 5%/0.45% NS 1,00... IV SCH (10:30)
[2016-10-26] MEDS: Enoxaparin 40 mg Syringe SC SCH (11:18)
[2016-10-26] MEDS ORDERED: Potassium Chloride 20 mEq 100 ML IVPB ONE (11:21)
--- NOTE | 2016-10-26 11:23 | PN ---
DATE: 10/26/2016 The patient was followed up today. Shortly, the patient is a 70-year-old male with multiple medical problems, including alcohol use diso rder. The patient was admitted on the medical floor for evaluation of complaining of left leg pain, status post fall. The patient had open reduction and internal fixation of the broken hip. Psych jonh parrish was called for evaluation of capacity to make decisions about disposition plan because the patie nt refused to go to subacute rehab. For the past 3 days, the patient was found to be in hypoactive d elirium. Most likely, it was combination of the factors, including surgery, alcohol withdrawal syndr ome as well as electrolyte imbalance. The patient was followed up today. The patient presented to [facility] more alert to compare with the previous 2 days. The patient was observed eating with assistance, b luis still at the same time, the patient was eating with eyes closed, only "yes/no" answers, but as thi s loan underwriter described above, the patient is more alert today. The patient said that "I'm just fine." W hilary this loan underwriter asked if he knows where he is, the patient somm8eci "million ____." Seems to be psyc hotic. VITAL SIGNS: Stable. Temperature 98.6, pulse is 75, blood pressure 138/70, respiration 20, oxygen s aturation is 94. MEDICATIONS: Reviewed. Albuterol, Brovana, Lipitor, Pulmicort. The patient is on doxycycline, Love nox, ____, Zestril, Singulair, banana bag, Nicoderm, Protonix, vitamin B1 and Daliresp. Ativan was d iscontinued. The patient did not need to be on any Geodon. MENTAL STATUS EXAMINATION: There is no option to have meaningful conversation. The patient was obse rved eating with assistance with eyes closed. The patient would just open his mouth. The patient re ported that he is "just fine." Affect flat. Thought process disorganized. The patient is disorient ed, replied on the question where he is "million miles." Insight and judgement impaired. Impulses a re fair. IMPRESSION: Most likely, the patient has multifactorial delirium, hypoactive. The patient has multi ple medical issues, including the libhko4i is legally blind, deaf. Also, the patient had open reduct ion and internal fixation of hip. The patient had history of coronary artery disease, chronic obstru ctive pulmonary disease, history of alcohol abuse and alcohol withdrawal delirium which is improving, electrolyte imbalance, anemia, leukocytosis which is improving. PLAN: Ativan was stopped by medical team. Continue banana bag. This loan underwriter will start Risperdal 0. 5 mg at the nighttime liquid as needed for psychosis and agitation. Continue current management. Th e patient is seen by hr leader, by neurologist. The patient is awaiting for subacute rehab, but mental status needs to be improved because, at present moment, the patient does not have the futpwz0e y to participate in discharge planning. Dr. Parmar will follow up on this patient over the weekend. Should you have any questions, give me a call back. The patient's family needs to be also involved. Clarissa Law MD cc: [id number] TT: 10/26/2016 11:22:44 Confirmation # [id number] Dictation # [id number] tn
--- NOTE | 2016-10-26 13:22 | RAD ---
HISTORY: Increased Secretions/Lethargy COMPARISON: 10/18/2016. FINDINGS: LUNGS: The lungs are clear. PLEURA: No significant pleural effusion identified, no pneumothorax apparent. CARDIOVASCULAR: Normal. OSSEOUS STRUCTURES: Within normal limits for the patient's age. VISUALIZED UPPER ABDOMEN: Normal. OTHER FINDINGS: None. IMPRESSION: No active pulmonary disease.
[2016-10-26] MEDS: Latanoprost 2.5 ml Opht Soln OU SCH (16:00)
--- NOTE | 2016-10-26 17:02 | PN ---
DATE: 10/26/2016 REFERRING PHYSICIAN: Dr. Ponce. SUBJECTIVE: He is lying in the bed. Still sleepy but arousable, confused. Does follow some command s. Has some cough, clear sputum production. No hemoptysis, no hematemesis, no hematuria or diarrhea reported. OBJECTIVE: GENERAL: No acute distress. VITAL SIGNS: Temp is 98, heart rate is 95, respiratory rate is 18, blood pressure 112/64, pulse ox 9 8% on 2 liters nasal cannula. HEENT: Moist mucous membranes. Crowded airway. NECK: Supple. No JVD. LUNGS: Have scattered rhonchi. HEART: S1 and S2. ABDOMEN: Soft, nontender, no organomegaly. EXTREMITIES: Has tenderness on the left hip. NEUROLOGIC: Sleepy, arousable, confused. MEDICATIONS: He is on DuoNeb q. 6 hours p.r.n., Brovana 15 mcg inhaled twice a day, Daliresp 500 mcg daily, doxycycline 100 mg daily, Lipitor 10 mg daily, Lovenox 40 mg daily. Getting IV fluid with vi tamin C, thiamine and folic acid, Nicoderm patch daily, Protonix 40 mg daily, Pulmicort inhaled twice a day, Risperdal 0.5 mg at bedtime p.r.n., Singulair 10 mg at bedtime, vitamin B1 at 100 mg daily, Z estril 20 mg daily. LABORATORY DATA: Shows hemoglobin 10.7, hematocrit 30.7, WBC 9.4, platelet is 193. Sodium 140, pota ssium 3.5, chloride 111, bicarbonate 21, BUN 13, creatinine 0.7, glucose 129, calcium is 8.5. AST 51 , ALT 43, alkaline phosphatase is 302, albumin is 3.0. Chest x-ray done today shows no active pulmonary disease reported. IMPRESSION AND PLAN: Alcohol withdrawal with delusions, chronic obstructive lung disease, legally bl ind, status post fall with left hip fracture requiring replacement. Spoke to family at bedside. All their questions answered. Case discussed with the nursing staff. Also spoke to floor nurse zenon enriquez. Recommended to get physical therapy, get him out of bed to chair. Careful with high risk of fall. Discharge planning tomorrow if he is more awake and alert and if there is safe discharge to [facility]. Thank you, and will follow with you. Theodore Atkins MD cc: [id number] TT: 10/26/2016 17:02:11 Confirmation # [id number] Dictation # [id number] mn
--- NOTE | 2016-10-26 18:27 | PN ---
DATE: 10/26/2016 SUBJECTIVE: The patient is seen and examined on the bedside. Awake, alert, but confused. Does follow simple commands. Moving all 4 extremities. Coughing , bringing some phlegm. No fever, no chills. No hematuria, no hematochezia. No diarrhea. PHYSICAL EXAMINATION: VITAL SIGNS: Temperature 98, heart rate 95, respiratory rate 18, blood pressure 112/64, pulse oximeter 98% on 2 liters nasal cannula. HEENT: Head normocephalic, atraumatic. Eyes: PERRLA. Extraocular movements intact. Conjunctivae clear. Nose patent. Mucous membranes moist. NECK: Supple. No carotid bruit, JVD or thyromegaly. CHEST: Bilaterally symmetrical. HEART: S1, S2 positive. LUNGS: Clear to auscultation. ABDOMEN: Soft. Bowel sounds present. No organomegaly. EXTREMITIES: No edema, no cyanosis. Has tenderness on the left hip. NEUROLOGIC: The patient is awake, moving all 4 extremities. No focal deficits. MEDICATIONS: DuoNeb, Brovana, Daliresp, doxycycline, Lipitor, Lovenox, getting IV fluid with vitamin C, thiamine, Lidoderm patch, Protonix, Pulmicort, inhaled bronchodilators, Risperdal at bedtime, Singulair, vitamin B1, Zestril, LABORATORY DATA: White blood cells 9.4, hemoglobin 10.0, hematocrit 30.7, and platelets are 193. Sodium 140, potassium 3.5, BUN noted , creatinine 0.7, glucose 129, alkaline phosphatase 302. ASSESSMENT AND PLAN: The patient is a 70-year-old male with hypokalemia (was replaced), hyperglycemia, history of leukocytosis (improved), anemia. Alcohol level was 220 on admission; now repeat is less than 10. History of alcohol withdrawals with delirium. Psychology is on the case. Chronic obstructive lung disease, legally blind, status post fall with left hip fracture requiring open reduction, internal fixation. Dr. Atkins spoke to the family, answered all their questions. Length of time discussion done with the employment case manager, Tosha. According to family, patient is very weak to go home, then rehab offered. [facility] is ready to accept the patient. Will wait for family's decision. Physical therapy. Out of bed. Careful for fall. Ammonia level is 3. Rule out hyperthyroidism. Discontinue IV fluid. Repeat labs. Will follow up. Evie Ponce MD cc: [id number] TT: 10/26/2016 18:27:30 Confirmation # [id number] Dictation # [id number] mn JULIET
--- NOTE | 2016-10-26 18:57 | PN ---
DATE: 10/26/2016 CHIEF COMPLAINT: Follow up for confusion. SUBJECTIVE: The patient is lying in bed, still arousable but mildly confused. Does follow simple co mmands. He is status post ORIF of his left hip fracture. He his transient delirium. He has a history of alcohol abuse and is currently on multivitamins, folic acid and thiamine. No acute event s overnight. PAST MEDICAL HISTORY: Alcohol withdrawal, delusions, COPD, legally blind, status post left hip fract ure and ORIF. SOCIAL HISTORY: No illicit drug use. He has a history of ETOH abuse and is a former smoker. REVIEW OF SYSTEMS: A 14-point review of systems is negative except for the HPI. ALLERGIES: No known drug allergies. FAMILY HISTORY: Noncontributory. CURRENT MEDICATIONS: Reviewed via nurses' reconciliation sheet. PHYSICAL EXAMINATION: VITAL SIGNS: Temperature 97.5, pulse rate is 95, respiratory rate 20, blood pressure 112/64, oxygen 98% via nasal cannula on 2 liters. GENERAL: The patient is sitting up in bed in no acute distress. HEENT: Atraumatic, normocephalic. PERRLA. Extraocular muscles intact. NECK: Supple, no JVD, no adenopathy noted. LUNGS: Clear to auscultation. No adventitious sounds. HEART: S1, S2, normal rate and rhythm. No murmurs, rubs, or gallops. ABDOMEN: Soft, nontender, nondistended. Bowel sounds are present. EXTREMITIES: No clubbing, no cyanosis. Peripheral pulses 2+ felt bilaterally. He has tenderness of the left hip. NEUROLOGIC: The patient is drowsy, but is more alert today than before. His speech is hypophonic, b ut no aphasia noted. The patient is alert, oriented to person and place, not much of month or year. Recall after 5 minutes is 0/3. Poor attention span, slow thought process. Cranial nerves II-XII ar e intact. MOTOR: Slight increased tone throughout. Moves all extremities equally except for the left leg due to recent left hip fracture. SENSORY: Light touch, pinprick is intact. Proprioception intact bilaterally. DEEP TENDON REFLEXES: Are 1+ throughout. COORDINATION AND GAIT: Deferred for now. LABORATORIES: Sodium is 140, potassium 3.5, chloride of 111, carbon dioxide of 21, BUN of 13, creati nine 0.7, random glucose of 129. ASSESSMENT AND PLAN: This is a 70-year-old man with a past medical history of ETOH abuse, history of chronic obstructive pulmonary disease, legally blind, who is status post left hip fracture, status p ost open reduction internal fixation, had episodes of agitation, hallucinations, delusions and I was called in for altered mental status and confusion. His confusion is likely secondary to alcohol with drawal delusions as well as transient delirium. He does have likely alcohol induced confabulation. At this time, recommend: 2. Multivitamins, thiamine 100 mg p.o. b.i.d., folic acid 1 mg. 3. Follow psychiatric recommendations in terms of his agitation. 4. Keep systolic blood pressure between 120-130 mmHg. 5. Vitamin B 100 mg p.o. b.i.d. 6. Will likely need subacute rehabilitation. Continue with pulmonary care. Thank you for this followup. Luis Post MD cc: [id number] TT: 10/26/2016 18:57:03 Confirmation # [id number] Dictation # [id number] dn
[2016-10-27] MEDS: Pantoprazole 40 mg EC Tab PO SCH (05:35)
[2016-10-27] MEDS: Arformoterol 15 mcg/2 ml Inh Sol IH SCH (07:49)
[2016-10-27] MEDS: Budesonide 0.25 mg/2 ml Inhal Susp UD IH SCH (07:49)
[2016-10-27 07:54] VITALS: RESP 20; TEMP 98.5; O2SAT 95
[2016-10-27] MEDS: Enoxaparin 40 mg Syringe SC SCH (10:21)
[2016-10-27] MEDS: Multivitamin (MVI) 10 ML, Thiamine 100 MG, Folic Acid 1 MG in Dextrose 5%/0.45% NS 1,00... IV SCH (10:21)
--- NOTE | 2016-10-27 10:21 | CON ---
DATE: 10/27/2016 HISTORY OF PRESENT ILLNESS: The patient is a 70-year-old male who is being followed by psychiatry on the medical floor due to the patient's delirious and lack of capacity to make decisions about dispos ition plan. I read Dr. Law's consultation, which indicated the patient at that time, still l acked capacity and that mental status needs to be improved in order to participate in discharge plann ing. I met with patient at bedside and the patient is minimally verbal with this provider. He is re sponsive; however, he is inconsistent with his focus and responses. I asked repeatedly for patient t o remove from his head; however, he refused, though it did appear that he attempted to at one p oint. He cannot provide location, he cannot provide circumstances, date or year at this time. As no yan, he is still disorganized and likely due to delirium. However, I reviewed staff notes which donta cated he is in fair control. There were no overnight issues regarding behavioral or impulse co ntrol. VITAL SIGNS: Reviewed. LABORATORY DATA: Recent labs were also reviewed by this provider. CURRENT MEDICATIONS: Reviewed and relevant psychiatric medications include Risperdal 0.5 mg p.o. at bedtime p.r.n., which he received no administrations last night. IMPRESSION: The patient has multifactorial hypoactive delirium still and patient continues to be sym ptomatic. PLAN: We will continue Risperdal 0.5 mg at bedtime, as needed for psychosis and agitation, although patient did not need it last night. We will continue his current management. Medical team should be advised that delirium can take quite a few weeks to resolve completely after initial insult has reso lved and patient continues to be symptomatic and does not have capacity to participate in discharge p javed. We will continue to follow up with patient and monitor his mental status, responses and in general overall orientation to his hospitalization in order to provide more information regarding his capacity to agree to disposition. Reva Parmar MD cc: [id number] TT: 10/27/2016 10:21:45 Confirmation # [id number] Dictation # [id number] rn
[2016-10-27 10:31] VITALS: BP 126/64; PULSE 102
--- NOTE | 2016-10-27 14:51 | CP.PCM.PN ---
Subjective - Date & Time of Evaluation Date of Evaluation: 10/27/16 Time of Evaluation: 13:00 - Subjective Subjective: Patient: AYANNA SEAMAN Unit: [id number] : 1945 Loc: 3RNO Room/Bed: 363-01 Age/Sex: 70 / M ADM Status: ADM IN ADM Date: DIS Date: Progress note: DATE: 10/27/2016 CHIEF COMPLAINT: Follow up for confusion. SUBJECTIVE: The patient is lying in bed, still arousable but mildly confused. Does follow simple commands. No acute events overnight. Psych notes reviewed and agree. Need out of bed to chair. PAST MEDICAL HISTORY: Alcohol withdrawal, delusions, COPD, legally blind, status post left hip fracture and ORIF. SOCIAL HISTORY: No illicit drug use. He has a history of ETOH abuse and is a former smoker. REVIEW OF SYSTEMS: A 14-point review of systems is negative except for the HPI. ALLERGIES: No known drug allergies. FAMILY HISTORY: Noncontributory. CURRENT MEDICATIONS: Reviewed via nurses' reconciliation sheet. PHYSICAL EXAMINATION: VITAL SIGNS: Reviewed. GENERAL: The patient is sitting up in bed in no acute distress. HEENT: Atraumatic, normocephalic. PERRLA. Extraocular muscles intact. NECK: Supple, no JVD, no adenopathy noted. LUNGS: Clear to auscultation. No adventitious sounds. HEART: S1, S2, normal rate and rhythm. No murmurs, rubs, or gallops. ABDOMEN: Soft, nontender, nondistended. Bowel sounds are present. EXTREMITIES: No clubbing, no cyanosis. Peripheral pulses 2+ felt bilaterally. He has tenderness of the left hip. NEUROLOGIC: The patient is drowsy, but is more alert today than before. His speech is hypophonic, but no aphasia noted. The patient is alert, oriented to person and place, not much of month or year. Recall after 5 minutes is 0/3. Poor attention span, slow thought process. Cranial nerves II-XII are intact. MOTOR: Slight increased tone throughout. Moves all extremities equally except for the left leg due to recent left hip fracture. SENSORY: Light touch, pinprick is intact. Proprioception intact bilaterally. DEEP TENDON REFLEXES: Are 1+ throughout. COORDINATION AND GAIT: Deferred for now. LABORATORIES: Reviewed. ASSESSMENT AND PLAN: This is a 70-year-old man with a past medical history of ETOH abuse, history of chronic obstructive pulmonary disease, legally blind, who is status post left hip fracture, status post open reduction internal fixation, had episodes of agitation, hallucinations, delusions and I was called in for altered mental status and confusion. His confusion is likely secondary to alcohol withdrawal delusions as well as transient hypoactive delirium. It will take few week to transition out of this confusional state. At this time, recommend: 2. Multivitamins, thiamine 100 mg p.o. b.i.d., folic acid 1 mg. 3. Follow psychiatric recommendations in terms of his agitation. 4. Keep systolic blood pressure between 120-130 mmHg. 5. Vitamin B 100 mg p.o. b.i.d. Avoid night time interruptions and do frequent orientation through the day. 6. Will likely need subacute rehabilitation. Continue with pulmonary care. Thank you for this followup. Luis Post MD Objective - Vital Signs/Intake and Output Vital Signs (last 24 hours): Temp Pulse Resp BP Pulse Ox 98.5 F 102 H 20 126/64 95 10/27/16 07:53 10/27/16 10:20 10/27/16 07:53 10/27/16 10:20 10/27/16 07:53 Intake and Output: 10/27/16 10/27/16 06:59 18:59 Intake Total 420 0 Balance 420 0 - Medications Medications: Current Medications Albuterol Sulfate (Albuterol 0.5% Inhal Patti (2.5 Mg/0.5 Ml) Ud) 2.5 mg IH [id number] PRN PRN Reason: Cough and congestion Last Admin: 10/25/16 06:10 Dose: 2.5 mg Arformoterol Tartrate (Brovana) 15 mcg IH [id number] JUANITA Last Admin: 10/27/16 07:49 Dose: 15 mcg Atorvastatin Calcium (Lipitor) 10 mg PO DIN JUANITA Last Admin: 10/26/16 16:50 Dose: Not Given Budesonide (Pulmicort Respules) 0.25 mg IH [id number] [facility] Last Admin: 10/27/16 07:49 Dose: 0.25 mg Doxycycline Hyclate (Doryx) 100 mg PO Q12 JUANITA PRN Reason: Protocol Last Admin: 10/27/16 10:21 Dose: 100 mg Enoxaparin Sodium (Lovenox) 40 mg SC DAILY JUANITA PRN Reason: Protocol Last Admin: 10/27/16 10:21 Dose: 40 mg Multivitamins/Vitamin C 10 ml/Thiamine HCl 100 mg/ Folic Acid 1 mg/ Dextrose/ Sodium Chloride 1,011.2 mls @ 100 mls/hr IV DAILY [facility] Stop: 10/29/16 17:01 Last Admin: 10/27/16 10:21 Dose: 100 mls/hr Latanoprost (Xalatan Opht) 0 ml OU ACD [facility] Last Admin: 10/26/16 16:00 Dose: 1 ml Lisinopril (Zestril) 20 mg PO DAILY [facility] Last Admin: 10/27/16 10:20 Dose: 20 mg Montelukast Sodium (Singulair) 10 mg PO HS [facility] Last Admin: 10/26/16 21:39 Dose: 10 mg Nicotine (Nicoderm Cq) 1 patch TD DAILY [facility] Last Admin: 10/27/16 10:22 Dose: 1 patch Pantoprazole Sodium (Protonix Ec Tab) 40 mg PO 0630 [facility] Last Admin: 10/27/16 05:35 Dose: 40 mg Risperidone (Risperdal Tab) 0.5 mg PO HS PRN; Protocol PRN Reason: psychosis, agitaton Roflumilast (Daliresp) 500 mcg PO DAILY [facility] Last Admin: 10/27/16 10:20 Dose: 500 mcg Thiamine HCl (Vitamin B1 Tab) 100 mg PO DAILY [facility] Last Admin: 10/27/16 10:21 Dose: 100 mg - Labs Labs: 10/26/16 06:30 10/26/16 06:30 PT 11.4 Seconds (9.9-11.8) 10/19/16 11:20 INR 1.06 (0.93-1.08) 10/19/16 11:20 APTT 30.1 Seconds (23.7-30.8) 10/19/16 11:20
== END 2016-10-27 16:02 | DRG 480 ==
LOC: ED 21:34 → ERH 23:09 → 3RNO 10-19 01:04
PROVIDERS: ADMIT Internal Medicine; ATTEND Internal Medicine
PROC: 0SSB04Z Reposition Left Hip Joint with Internal Fixation Device, Open Approach (ICD-10-PCS; principal; 2016-10-20 11:00)
DX: S72.142A Displaced intertrochanteric fracture of left femur, initial encounter for closed fracture (principal); G93.40 Encephalopathy, unspecified; F10.231 Alcohol dependence with withdrawal delirium; F10.27 Alcohol dependence with alcohol-induced persisting dementia; F23 Brief psychotic disorder; W19.XXXA Unspecified fall, initial encounter; D64.9 Anemia, unspecified; E87.8 Other disorders of electrolyte and fluid balance, not elsewhere classified; E05.90 Thyrotoxicosis, unspecified without thyrotoxic crisis or storm; D72.829 Elevated white blood cell count, unspecified; E78.00 Pure hypercholesterolemia, unspecified; E78.5 Hyperlipidemia, unspecified; E87.6 Hypokalemia; F17.200 Nicotine dependence, unspecified, uncomplicated; F22 Delusional disorders; F41.9 Anxiety disorder, unspecified; G62.9 Polyneuropathy, unspecified; H40.9 Unspecified glaucoma; H54.8 Legal blindness, as defined in USA; H91.92 Unspecified hearing loss, left ear; I10 Essential (primary) hypertension; I25.10 Atherosclerotic heart disease of native coronary artery without angina pectoris; J44.9 Chronic obstructive pulmonary disease, unspecified; J45.909 Unspecified asthma, uncomplicated; K70.9 Alcoholic liver disease, unspecified; Y90.7 Blood alcohol level of 200-239 mg/100 ml; Z79.899 Other long term (current) drug therapy; R94.31 Abnormal electrocardiogram [ECG] [EKG]; F43.20 Adjustment disorder, unspecified; R73.9 Hyperglycemia, unspecified; R74.8 Abnormal levels of other serum enzymes

== ENCOUNTER 2016-10-29 18:59 | Inpatient (IN) | payer MEDICARE, MEDICAID ==
[2016-10-29 19:07] VITALS: BMI 21.7
--- NOTE | 2016-10-29 19:29 | ED PDOC ---
Arrival/HPI - General Chief Complaint: GI Problem Time Seen by Provider: 10/29/16 19:13 Historian: Patient - Critical Care Critical Care Minutes: 30 minutes - History of Present Illness Narrative History of Present Illness (Text): 10/29/16 19:15 A 70 year old male, whose past medical history includes hypertension, COPD, Anemia, and recent left hip fracture, who [facility] for [facility] of left hip fracture. Patient had an episode of rectal bleeding today at the home, so he was sent to the emergency department for further evaluation. He currently denies any bleeding. Patient denies any abdominal pain , nausea, vomiting, chest pain, shortness of breath, or any other complaints at this time. Patient states he feels fine. PMD: Dr. Ponce Time/Duration: Other Symptom Onset: Sudden Symptom Course: Other Quality: Other Activities at Onset: Rest Context: Other Past Medical History - Provider Review Nursing Documentation Reviewed: Yes - Infectious Disease Hx of Infectious Diseases: None - Tetanus Immunization Tetanus Immunization: Unknown - Past Medical History Past Medical History: No Previous - Cardiac Hx Cardiac Disorders: Yes Hx Hypertension: Yes - Pulmonary Hx Chronic Obstructive Pulmonary Disease (COPD): Yes - Neurological Hx Neurological Disorder: No - HEENT Hx HEENT Disorder: Yes Hx Blind: Yes Hx Cataracts: Yes Hx Deafness: Yes Hx Glaucoma: Yes - Renal Hx Renal Disorder: No - Endocrine/Metabolic Hx Endocrine Disorders: No - Hematological/Oncological Hx Blood Disorders: No - Integumentary Hx Dermatological Disorder: No - Musculoskeletal/Rheumatological Hx Musculoskeletal Disorders: Yes Hx Falls: Yes Hx Fractures: Yes Hx Unsteady Gait: Yes - Gastrointestinal Hx Gastrointestinal Disorders: No - Genitourinary/Gynecological Hx Genitourinary Disorders: No - Psychiatric Hx Psychophysiologic Disorder: Yes Hx Depression: Yes Hx Substance Use: No - Past Surgical History Past Surgical History: No Previous - Anesthesia Hx Anesthesia: No Hx Anesthesia Reactions: No Hx Malignant Hyperthermia: No - Suicidal Assessment Feels Threatened In Home Enviroment: No Family/Social History - Physician Review Nursing Documentation Reviewed: Yes Family/Social History: No Known Family HX Smoking Status: Heavy Smoker > 10 Cigarettes Daily Hx Alcohol Use: Yes (daily) Hx Substance Use: No Hx Substance Use Treatment: No Allergies/Home Meds Allergies/Adverse Reactions: Allergies No Known Allergies Allergy (Verified 10/29/16 19:07) Home Medications: Home Meds Medication Instructions Recorded Confirmed Advair Disk Unk Dose 03/22/16 Albuterol HFA [Ventolin HFA 90 0.09 mg IH PRN PRN 03/22/16 03/22/16 mcg/actuation (8 g)] Gabapentin [Neurontin] 300 mg PO TID 03/22/16 03/22/16 Hydroxyzine HCl 25 mg PO HS 03/22/16 03/22/16 Latanoprost 0.005% Opht [XALATAN 1 drop OU ACD 03/22/16 03/22/16 2.5 Ml] Meclizine [Antivert] 12.5 mg PO DAILY 03/22/16 03/22/16 Polyth Glucol Powder PRN PRN 03/22/16 Pravastatin Sodium [Pravachol] 20 mg PO DAILY 03/22/16 03/22/16 Ramelteon [Rozerem] 8 mg PO DAILY 03/22/16 03/22/16 Venlafaxine [Effexor] 37.5 mg PO DAILY 03/22/16 03/22/16 acetaZOLAMIDE [Acetazolamide] 500 mg PO BID 03/22/16 03/22/16 Review of Systems - Physician Review All systems were reviewed & negative as marked: Yes - Review of Systems Constitutional: Normal Eyes: Normal ENT: Normal Respiratory: absent: SOB Cardiovascular: absent: Chest Pain Gastrointestinal: Hematochezia. absent: Abdominal Pain, Diarrhea, Nausea, Vomiting Genitourinary Male: Normal Musculoskeletal: Normal Skin: Normal Neurological: Normal Endocrine: Normal Hemo/Lymphatic: Normal Psychiatric: Normal Physical Exam Vital Signs Reviewed: Yes Vital Signs Temp Pulse Resp BP Pulse Ox 10/29/16 22:40 98.7 F 116 H 16 120/68 10/29/16 22:25 99 F 118 H 16 114/63 10/29/16 22:17 99 F 120 H 16 106/58 L 10/29/16 21:45 118 H 16 111/58 L 96 10/29/16 21:30 126 H 16 101/63 96 10/29/16 21:15 119 H 16 112/63 96 10/29/16 21:00 121 H 16 122/68 96 10/29/16 20:52 130 H 16 122/62 96 10/29/16 20:37 128 H 16 116/60 96 10/29/16 20:22 124 H 16 113/60 96 10/29/16 20:07 122 H 16 121/67 96 10/29/16 19:52 98 H 16 129/58 L 99 10/29/16 19:12 100.5 F H 124 H 18 103/53 L 94 L Temperature: Febrile Blood Pressure: Hypotensive Pulse: Tachycardic Respiratory Rate: Normal Appearance: Positive for: Non-Toxic Pain Distress: None Mental Status: Positive for: Alert and Oriented X 3 - Systems Exam Head: Present: Atraumatic, Normocephalic Pupils: Present: PERRL Extroacular Muscles: Present: EOMI Conjunctiva: Present: Normal Mouth: Present: Moist Mucous Membranes Neck: Present: Normal Range of Motion Respiratory/Chest: Present: Clear to Auscultation, Good Air Exchange. No: Respiratory Distress, Accessory Muscle Use Cardiovascular: Present: Normal S1, S2, Tachycardic. No: Murmurs Abdomen: Present: Normal Bowel Sounds. No: Tenderness, Distention, Peritoneal Signs Back: Present: Normal Inspection Upper Extremity: Present: Normal Inspection. No: Cyanosis, Edema Lower Extremity: Present: Other (bandage around left hip). No: Edema Neurological: Present: GCS=15, CN II-XII Intact, Speech Normal Skin: Present: Warm, Dry, Normal Color. No: Rashes Psychiatric: Present: Alert, Oriented x 3, Normal Insight, Normal Concentration Medical Decision Making ED Course and Treatment: 10/29/16 19:15 Impression: A 70 year old febrile male with an episode of hematochezia and tachycardia. Differential Diagnosis include but are not limited to: GI bleed Plan: -- EKG -- Chest X-ray -- Labs -- Urinalysis -- Reassess and disposition Prior Visits: Notes and results from previous visits were reviewed. The patient last presented to the emergency department on 10/18/16 for evaluation of left leg pain. Progress Notes: EKG: Ordered, reviewed, and independently interpreted the EKG. Rate : 119 BPM Rhythm : Sinus tachycardia Interpretation : Nonspecific ST/T changes 10/29/16 21:00 Patient actively bleeding with bright red blood from rectum. Blood pressure remained stable. IV fluids started and Pt was typed and cross-matched to receive blood transfusion. 10/29/16 21:10 Case discussed with , data entry supervisor, who agrees with the plan to admit patient to ICU for active GI bleed. Patient to be transfused. PMD 's service notified and awaiting call back. 10/29/16 21:55 Case discussed with who is aware of the treatment plan and accepts patient under her service. 10/29/16 21:[address] Case discussed with GI Dr. Oropeza who agrees with the transfusion and wants bleeding scan once stable. - Lab Interpretations Lab Results: 10/29/16 19:31 10/29/16 19:31 Lab Results 10/29/16 20:39: Blood Type AB POSITIVE, Antibody Screen Negative, Crossmatch See Detail, BBK History Checked Patient has bt 10/29/16 19:31: WBC 12.5 H D, RBC 2.89 L, Hgb 7.9 L D, Hct 24.8 L, MCV 85.8, MCH 27.3, MCHC 31.9, RDW 14.9 H, Plt Count 295, MPV 10.8, Gran % 63.3, Lymph % ( Auto) 25.8, [place] % (Auto) 10.6 H, Eos % (Auto) 0.2 L, Baso % (Auto) 0.1, Gran # 7.94 H, Lymph # 3.2, [place] # 1.3 H, Eos # 0.0, Baso # 0.01, PT 12.1 H, INR 1.12 H , APTT 29.1, pO2 49, VBG pH 7.46 H, VBG pCO2 42.0, VBG HCO3 29.9 H, VBG Total CO2 31.2 H, VBG O2 Sat (Calc) 86.2 H, VBG Base Excess 5.4 H, VBG Potassium 3.6, Glucose 131 H, Lactate 1.8, FiO2 21.0, Sodium 143.0, Potassium 3.7, Chloride 112.0 H, Carbon Dioxide 27, Anion Gap 14, BUN 22 H, Creatinine 0.6, Est GFR ( Amer) > 60, Est GFR (Non-Af Amer) > 60, Random Glucose 132 H, Calcium 8.7, Total Bilirubin 0.9, AST 42, ALT 39, Alkaline Phosphatase 293 H, Total Protein 6.4, Albumin 3.0, Globulin 3.4, Albumin/Globulin Ratio 0.9 L, Venous Blood Potassium 3.6 I have reviewed the lab results: Yes - RAD Interpretation Radiology Orders: 10/29/16 19:22 CHEST PORTABLE [RAD] Stat 10/29/16 20:50 GI BLEEDING SCAN W/ FLOW [NM] Stat - Medication Orders Current Medication Orders: Artificial Tears (Artificial Tears) 0 ml OU TID PRN PRN Reason: Dry eyes Sodium Chloride (Sodium Chloride 0.9%) 1,000 mls @ 100 mls/hr IV .Q10H JUANITA Last Admin: 10/30/16 05:50 Dose: 100 MLS/HR eMAR Start Stop Document 10/30/16 05:50 JZI (Rec: 10/30/16 06:09 JZI [id number]) Intravenous Solution Start Date 10/30/16 Start Time 05:30 End Date 10/30/16 End time 17:30 Total Infusion Time 720 Pantoprazole Sodium (Protonix 40mg Ivpb) 100 mls @ 20 mls/hr IVPB .Q5H JUANITA Last Admin: 10/30/16 01:57 Dose: 20 MLS/HR eMAR Start Stop Document 10/30/16 01:57 JZI (Rec: 10/30/16 01:58 JZI [id number]) Intravenous Solution Start Date 10/30/16 Start Time 01:58 End Date 10/30/16 End time 06:58 Total Infusion Time 300 Latanoprost (Xalatan Opht) 0 ml OU HS JUANITA Lorazepam (Ativan) 1 mg IVP Q4 PRN; Protocol PRN Reason: Agitation Discontinued Medications Albuterol/Ipratropium (Duoneb 3 Mg/0.5 Mg (3 Ml) Ud) 3 ml IH Q2 PRN PRN Reason: Shortness of Breath Stop: 10/30/16 04:01 Sodium Chloride (Sodium Chloride 0.9%) 500 mls @ 500 mls/hr IV .Q1H STA Stop: 10/29/16 21:50 Last Admin: 10/29/16 21:26 Dose: 500 MLS/HR eMAR Start Stop Document 10/29/16 21:26 EQ (Rec: 10/29/16 21:26 EQ [email or web address]) Intravenous Solution Start Date 10/29/16 Start Time 21:26 Pantoprazole Sodium (Protonix Inj) 80 mg IVP STAT STA Stop: 10/29/16 22:04 - Scribe Statement The provider has reviewed the documentation as recorded by the Vincent Davis Provider Pacoibe Attestation: All medical record entries made by the Pacoibashwin were at my direction and personally dictated by me. I have reviewed the chart and agree that the record accurately reflects my personal performance of the history, physical exam, medical decision making, and the department course for this patient. I have also personally directed, reviewed, and agree with the discharge instructions and disposition. Disposition/Present on Arrival - Present on Arrival Any Indicators Present on Arrival: No History of DVT/PE: No History of Uncontrolled Diabetes: Yes Urinary Catheter: No History of Decub. Ulcer: No History Surgical Site Infection Following: None - Disposition Have Diagnosis and Disposition been Completed?: Yes Diagnosis: Gastrointestinal bleeding, lower Disposition: HOSPITALIZED Disposition Time: 21:20 Patient Plan: Admission Condition: STABLE
[2016-10-29 19:41] LABS: ADD MANUAL DIFF? NO
[2016-10-29 19:47] LABS: BASO # 0.01 K/mm3 (0.0-2.0); BASO % 0.1 % (0.0-3.0); EOS % 0.2 % (1.5-5.0); GRAN # 7.94 (1.4-6.5); GRAN % 63.3 % (50.0-68.0); HEMATOCRIT 24.8 % (42.0-52.0); LYMPH # 3.2 (1.2-3.4); LYMPH % 25.8 % (22.0-35.0); MEAN CELL VOLUME 85.8 fL (80.0-105.0); MEAN CORPUSCULAR HEMOGLOBIN 27.3 pg (25.0-35.0); MEAN CORPUSCULAR HGB CONC 31.9 g/dl (31.0-37.0); MEAN PLATELET VOLUME 10.8 fl (7.0-11.0); MONO # 1.3 (0.1-0.6); MONO % 10.6 % (1.0-6.0); PLATELET COUNT 295 10^3/uL (120.0-450.0); RED CELL DISTRIBUTION WIDTH 14.9 % (11.5-14.5); WHITE BLOOD COUNT 12.5 10^3/ul (4.5-11.0)
[2016-10-29 19:56] LABS: VENOUS BLOOD GAS BASE EXCESS 5.4 mmol/L (0.0-2.0); VENOUS BLOOD PH 7.46 (7.32-7.43)
[2016-10-29 20:00] LABS: ALB/GLOB RATIO 0.9 (1.1-1.8); ALKALINE PHOSPHATASE 293 U/L (38-133); ALT/SGPT 39 U/L (7-56); AST/SGOT 42 U/L (15-59); BILIRUBIN,TOTAL 0.9 mg/dL (0.2-1.3); BLOOD UREA NITROGEN 22 mg/dL (7-21); CALCIUM 8.7 mg/dL (8.4-10.5); CARBON DIOXIDE 27 mmol/L (21-33); CHLORIDE 104 mmol/L (98-107); GFR AFRICAN-AMERICAN > 60; GLUCOSE,RANDOM 132 mg/dL (70-110); POTASSIUM 3.7 mmol/L (3.6-5.0); SODIUM 141 mmol/L (132-148); TOTAL PROTEIN 6.4 g/dL (5.8-8.3)
[2016-10-29 20:29] LABS: INR 1.12 (0.93-1.08); PARTIAL THROMBOPLASTIN TIME 29.1 Seconds (23.7-30.8)
[2016-10-29] MEDS ORDERED: Sodium Chloride 0.9% 500 ML IV STA (20:51)
--- NOTE | 2016-10-29 21:37 | CP.PCM.CON ---
<Maru Garcia - Last Filed: 10/30/16 02:18> History of Present Illness - History of Present Illness History of Present Illness: PGY1-for Dr. Villalpando Consult: Active GI bleed 70 years old [place] male, alcoholic (last drink > 10 days), active smoker, with PMH of COPD, recent intertrochanteric fracture s/p IM rodding L hip () currently at [facility], c/o bright red blood per rectum. half-way notified family about 1 episode of BRBPR. Pt is transported to the ED via EMS. On arrival, RN noticed 5cc blood clot, bright red, at rectum. Then 10cc blood with clots noticed at the 1st [place] change at 7:30pm. At the ICU at 2am, right after GI bleed scan, noted another 5cc blood clot with maroon blood stain on [place]. At ED arrival. T 100.5. HR 124. 103/53. 94RA - VBG lactate 1.8 - EKG: Sinus tachy at 119. Nonspecific ST/T changes. No evidence of R heart strain. QTc 447 - Blood and Urine cultures were sent. Got 500cc NS bolus. will transfuse 2u prbc. Will get GI bleeding scan. - GI bleed scan with Tagged RBC: negative for active GI bleed - NG tube trial: Minimal gastric content, no dark brown or any hue of red aspirate ROS denies any abdominal pain, nausea, vomiting, chest pain, shortness of breath , palpitation, dysuria. Patient states he feels "fine." PMH Deafness, L ear Blindness, cataract, glaucoma HTN HLD COPD on Daliresp, NOT on home O2 Asthma, Alcohol abuse - relapse on anniversry of son's Smoke 1/2 pack per pt Chronic anemia, baseline Hx falls Had not seen doctors for many years [facility] ORIF, metal deandre L hip, Dr. Tanner Sorensen, 10/20/16 SH Lives with daughter, at [facility], lost his son recently 10 cigarrets/day 4 shots of liquor daily All NKDA Home med Advair, albuterol Neurontine Hydralazine Meclizine Pravachol Effexor Acetazolamide PO, Latanoprost 0,005% Opht Hydroxyzine, Ramelteon - insomnia PMD = Dr Evie Ponce Outpt GI doctor = Dr. Oropeza Past Patient History - Infectious Disease Hx of Infectious Diseases: None - Tetanus Immunizations Tetanus Immunization: Unknown - Past Social History Smoking Status: Heavy Smoker > 10 Cigarettes Daily - CARDIAC Hx Cardiac Disorders: Yes Hx Hypertension: Yes - PULMONARY Hx Chronic Obstructive Pulmonary Disease (COPD): Yes - NEUROLOGICAL Hx Neurological Disorder: No - HEENT Hx HEENT Problems: Yes Hx Blind: Yes Hx Cataracts: Yes Hx Deafness: Yes Hx Glaucoma: Yes - RENAL Hx Chronic Kidney Disease: No - ENDOCRINE/METABOLIC Hx Endocrine Disorders: No - HEMATOLOGICAL/ONCOLOGICAL Hx Blood Disorders: No - INTEGUMENTARY Hx Dermatological Problems: No - MUSCULOSKELETAL/RHEUMATOLOGICAL Hx Musculoskeletal Disorders: Yes Hx Falls: Yes Hx Fractures: Yes Hx Unsteady Gait: Yes - GASTROINTESTINAL Hx Gastrointestinal Disorders: No - GENITOURINARY/GYNECOLOGICAL Hx Genitourinary Disorders: No - PSYCHIATRIC Hx Psychophysiologic Disorder: Yes Hx Depression: Yes Hx Substance Use: No - SURGICAL HISTORY Hx Surgeries: Yes - ANESTHESIA Hx Anesthesia: No Hx Anesthesia Reactions: No Hx Malignant Hyperthermia: No Meds Allergies/Adverse Reactions: Allergies Allergy/AdvReac Type Severity Reaction Status Date / Time No Known Allergies Allergy Verified 10/29/16 19:07 - Medications Medications: Current Medications Sodium Chloride (Sodium Chloride 0.9%) 500 mls @ 500 mls/hr IV .Q1H STA Stop: 10/29/16 21:50 Last Admin: 10/29/16 21:26 Dose: 500 mls/hr Physical Exam - Constitutional Appears: No Acute Distress, Cachectic, Chronically Ill - Head Exam Head Exam: ATRAUMATIC, NORMOCEPHALIC - Eye Exam Eye Exam: EOMI, Normal appearance, PERRL Pupil Exam: NORMAL ACCOMODATION - ENT Exam ENT Exam: Mucous Membranes Dry, Normal Oropharynx Additional comments: white plaque on tongue - Neck Exam Neck exam: Positive for: Normal Inspection. Negative for: Meningismus Additional comments: supple - Respiratory Exam Respiratory Exam: Clear to Auscultation Bilateral, NORMAL BREATHING PATTERN. absent: Rales, Rhonchi, Wheezes - Cardiovascular Exam Cardiovascular Exam: REGULAR RHYTHM, +S1, +S2. absent: Systolic Murmur - GI/Abdominal Exam GI & Abdominal Exam: Firm, Normal Bowel Sounds, Soft. absent: Distended, Guarding, Rigid, Tenderness - Extremities Exam Extremities exam: Positive for: normal capillary refill, pedal pulses present. Negative for: pedal edema - Back Exam Back exam: absent: CVA tenderness (L), CVA tenderness (R) - Neurological Exam Neurological exam: Alert, Oriented x3 - Psychiatric Exam Psychiatric exam: Normal Affect, Normal Mood - Skin Skin Exam: Dry, Warm Results - Vital Signs Recent Vital Signs: Last Vital Signs Temp 100.5 F H 10/29/16 19:12 Pulse 98 H 10/29/16 19:52 Resp 16 10/29/16 19:52 BP 129/58 L 10/29/16 19:52 Pulse Ox 99 10/29/16 19:52 - Labs Result Diagrams: 10/29/16 19:31 10/29/16 19:31 Labs: Laboratory Results - last 24 hr 10/29/16 10/29/16 19:31 20:39 WBC 12.5 H D RBC 2.89 L Hgb 7.9 L D Hct 24.8 L MCV 85.8 MCH 27.3 MCHC 31.9 RDW 14.9 H Plt Count 295 MPV 10.8 Gran % 63.3 Lymph % (Auto) 25.8 [place] % (Auto) 10.6 H Eos % (Auto) 0.2 L Baso % (Auto) 0.1 Gran # 7.94 H Lymph # 3.2 [place] # 1.3 H Eos # 0.0 Baso # 0.01 PT 12.1 H INR 1.12 H APTT 29.1 pO2 49 VBG pH 7.46 H VBG pCO2 42.0 VBG HCO3 29.9 H VBG Total CO2 31.2 H VBG O2 Sat (Calc) 86.2 H VBG Base Excess 5.4 H VBG Potassium 3.6 Sodium 141 Chloride 104 Glucose 131 H Lactate 1.8 FiO2 21.0 Potassium 3.7 Carbon Dioxide 27 Anion Gap 14 BUN 22 H Creatinine 0.6 Est GFR ( Amer) > 60 Est GFR (Non-Af Amer) > 60 Random Glucose 132 H Calcium 8.7 Total Bilirubin 0.9 AST 42 ALT 39 Alkaline Phosphatase 293 H Total Protein 6.4 Albumin 3.0 Globulin 3.4 Albumin/Globulin Ratio 0.9 L Venous Blood Potassium 3.6 Blood Type AB POSITIVE Antibody Screen Negative Crossmatch See Detail BBK History Checked Patient has bt Assessment & Plan - Assessment and Plan (Free Text) Plan: 70 years old male, relapsed alcoholic, Hx COPD/asthma, recent intertrochanteric fracture s/p IM rodding L hip (10/20/16) currently at [facility], c/o hematochezia. half-way notified family about 1 episode of BRBPR. Last drink more than 10 days ago. Active issue is active GI bleed, unknown cirrhosis, Upper vs lower bleed. Pt is sinus tachycardia possibly sepsis vs. etoh withdrawal vs active GI bleed. Neuro: Hx alcoholism, last drink 5-7 days ago CIWA protocol; Watch delirium tremens AAOx3 Maintain normothermia Seizure precaution Ativan 1 PRN CV: Sinus tachycardia at 119. No R heart strain NS @ 100 Pulm: O2 NC Maintain [id number] Duoneb PRN GI: Unknown cirrhotic status. No octreotide for now Protonix drip @ 8 mg/hr after bolus 80 NPO RBC scan: Negative for active bleed NGT trial: Min Gastric content aspirated; No dark brown or any hue of red aspirate Rockall score for upper gastrointestinal bleedin = age 70; 1 = Tachycardia; 2 = Major comorbidity; Total = 4 Can be lower GI bleed Pt look cachetic, possibly calories count after he can eat Heme: Baseline Hb 11. Normocytic s/p 2p PRBC in ED. GI bleed scan Transfuse if Hgb <8 Renal/: BUN elevated likely from bleed Creatinine normal Record I/O Continue to monitor electrolytes will replace/replete as needed Maintain euvolemia ID: Sepsis Sources GI vs Urol vs lung. Unlikely skin Observe off antibiotics for tonight VBG lactate 1.8. Endo: Maintain euglycemia GI ppx: on drio DVT ppx: SCDs only for GI bleed S/R/D/w Dr. Villalpando - Date & Time Date: 10/29/16 Time: 21:49 Procedure: Blank - Time Time Performed: 02:00 - Procedure Procedure:: NG tube trial - Consent obtained: Consent obtained: Verbal - Performed by: Performed by:: Mid-level provider (Maru Garcia DO and Mrs Osmani RN) - Contraindications: Contraindications:: None - Anesthetic Technique Anesthetic Technique: Local (Cetacaine nasal spray) - Patient Position Patient Position:: Sitting - Location Location: Right (Failed attempted to pass NGT on left nostril; Successful passing NGT via right nostril. Air bubble sound heard at stomach. 100cc normal saline lavage. Extract aspirate. Extract NGT) - Result Result: Successful - Patient Tolerated Procedure Patient Tolerated Procedure:: Well <Jean Villalpando MD - Last Filed: 10/30/16 07:15> Meds - Medications Medications: Current Medications Artificial Tears (Artificial Tears) 0 ml OU TID PRN PRN Reason: Dry eyes Sodium Chloride (Sodium Chloride 0.9%) 1,000 mls @ 100 mls/hr IV .Q10H JUANITA Last Admin: 10/30/16 05:50 Dose: 100 mls/hr Pantoprazole Sodium (Protonix 40mg Ivpb) 100 mls @ 20 mls/hr IVPB .Q5H JUANITA Last Admin: 10/30/16 01:57 Dose: 20 mls/hr Latanoprost (Xalatan Opht) 0 ml OU HS JUANITA Lorazepam (Ativan) 1 mg IVP Q4 PRN; Protocol PRN Reason: Agitation Results - Vital Signs Recent Vital Signs: Last Vital Signs Temp 99.5 F 10/30/16 06:00 Pulse 103 H 10/30/16 06:01 Resp 32 H 10/30/16 06:01 BP 114/75 10/30/16 06:00 Pulse Ox 100 10/30/16 03:15 - Labs Result Diagrams: 10/30/16 06:00 10/29/16 19:31 Labs: Laboratory Results - last 24 hr 10/30/16 06:00 WBC 14.9 H RBC 3.04 L Hgb 8.8 L Hct 27.0 L MCV 88.8 MCH 28.9 MCHC 32.6 RDW 14.9 H Plt Count 195 MPV 10.8 Gran % 66.0 Lymph % (Auto) 21.1 L [place] % (Auto) 12.4 H Eos % (Auto) 0.3 L Baso % (Auto) 0.2 Gran # 9.82 H Lymph # 3.1 [place] # 1.8 H Eos # 0.0 Baso # 0.03 Attending/Attestation - Attestation I have personally seen and examined this patient.: Yes I have fully participated in the care of the patient.: Yes I have reviewed all pertinent clinical information: Yes Notes (Text): 10/30/16 07:15 -I agree with the above ICU consult note completed by the resident physician. Briefly, the patient is a 70 year old man with a history of COPD, chronic ETOH abuse and recent history of left hip fracture (s/p intramedullary rodding on at [facility]), who presents with acute onset of BRBPR. Since arriving to the ED , he was noted have 3 separate episodes of BRBPR, approximating a total of 20cc (Per RN report). Also, in comparison to his recent hemoglobin of 10.0 from , his current hemoglobin was noted to be 7.9 on ED labs. In addition, in the ED, his blood pressures were ranging in the upper 90s to low 100s and he was persistently tachycardic (110-120). Consequently, he was admitted to the ICU overnight for closer observation and monitoring. Results of the nuclear scan show no evidence of bleeding. An NGT was briefly placed to suction with no return of blood and therefore it was removed. GI has been consulted and will see him this morning. He is on Protonix drip, IVFs and being kept NPO. Also, a RUQ U/S has been ordered to evaluate for liver cirrhosis given the patients history of chronic ETOH abuse. Lastly, although the patient spiked a temp of 100.5 in the ED, no antibiotics were initiated as there is no obvious source of infection. Blood and urine cultures have been ordered.
[2016-10-29] MEDS ORDERED: Albuterol-Ipratrop 3 mg / 0.5 (3 ml) UD IH PRN (22:02)
[2016-10-30] MEDS ORDERED: TETRACAINE/BENZOCAINE/BUTAMBEN 20 GM SPRAY TP ONE (01:15)
[2016-10-30] MEDS: Pantoprazole 40mg/100ml IVPB 100 ML IVPB SCH ×6 (01:57→23:25)
[2016-10-30] MEDS ORDERED: Aritificial Tears (15ml) OU PRN (03:52)
[2016-10-30] MEDS: Sodium Chloride 0.9% 1,000 ML IV SCH ×3 (05:50→18:25)
[2016-10-30 06:06] LABS: ADD MANUAL DIFF? NO
[2016-10-30 06:21] LABS: BASO # 0.03 K/mm3 (0.0-2.0); BASO % 0.2 % (0.0-3.0); EOS % 0.3 % (1.5-5.0); GRAN # 9.82 (1.4-6.5); LYMPH # 3.1 (1.2-3.4); LYMPH % 21.1 % (22.0-35.0); MEAN CELL VOLUME 88.8 fL (80.0-105.0); MEAN CORPUSCULAR HEMOGLOBIN 28.9 pg (25.0-35.0); MEAN CORPUSCULAR HGB CONC 32.6 g/dl (31.0-37.0); MEAN PLATELET VOLUME 10.8 fl (7.0-11.0); MONO # 1.8 (0.1-0.6); MONO % 12.4 % (1.0-6.0); PLATELET COUNT 195 10^3/uL (120.0-450.0); RED CELL DISTRIBUTION WIDTH 14.9 % (11.5-14.5); WHITE BLOOD COUNT 14.9 10^3/ul (4.5-11.0)
[2016-10-30 07:46] LABS: ALB/GLOB RATIO 0.9 (1.1-1.8); ALKALINE PHOSPHATASE 215 U/L (38-133); ALT/SGPT 28 U/L (7-56); AST/SGOT 37 U/L (15-59); BILIRUBIN,TOTAL 2.7 mg/dL (0.2-1.3); BLOOD UREA NITROGEN 23 mg/dL (7-21); CALCIUM 7.9 mg/dL (8.4-10.5); CARBON DIOXIDE 23 mmol/L (21-33); CHLORIDE 109 mmol/L (95-110); GFR AFRICAN-AMERICAN > 60; GLUCOSE,RANDOM 108 mg/dL (70-110); POTASSIUM 3.9 mmol/L (3.6-5.0); SODIUM 142 mmol/L (132-148); TOTAL PROTEIN 5.6 g/dL (5.8-8.3)
--- NOTE | 2016-10-30 08:02 | RAD ---
HISTORY: Sepsis Patient COMPARISON: 10/26/2016 FINDINGS: LUNGS: The lungs are well inflated and clear. PLEURA: No significant pleural effusion identified, no pneumothorax apparent. CARDIOVASCULAR: The heart is normal in size. Atherosclerotic aortic arch calcifications are present. . OSSEOUS STRUCTURES: No significant abnormalities. VISUALIZED UPPER ABDOMEN: Normal. OTHER FINDINGS: None. IMPRESSION: No active pulmonary disease.
--- NOTE | 2016-10-30 11:46 | CP.CCUPN ---
<Leslie Russell - Last Filed: 10/30/16 11:47> CCU Subjective - Physician Review Events Since Last Encounter (Free Text): 10/30/16 11:46 Patient seen and examined bedside. No acute events overnight. Patient confused, alert, oriented x1 (self). Bloody output per rectum this AM. Patient denies CP, SOB, abd pain. Critical Care Time Spent (in minutes): 40 CCU Objective - Vital Signs / Intake & Output Intake and Output (Last 8hrs): Intake & Output 10/29/16 10/30/16 10/30/16 22:59 06:59 14:59 Intake Total 0 1750 Output Total 250 Balance 0 1500 Weight 115 lb Intake: IV 420 Left Forearm 300 Left Hand 120 Oral 0 Blood Product 0 1300 Red Blood Cells Cpd As1 325 Lr Unit [id number] Red Blood Cells Cpd As1 0 325 Lr Unit [id number] Other 30 Red Blood Cells Cpd As1 30 Lr Unit [id number] Output: Urine 250 Urine, Voided 250 Other: Voiding Method Bedpan # Bowel Movements 3 - Physical Exam Head: Positive for: Atraumatic, Normocephalic Pupils: Positive for: PERRL Extroacular Muscles: Positive for: EOMI Conjunctiva: Positive for: Normal Mouth: Positive for: Moist Mucous Membranes Neck: Positive for: Normal Range of Motion Respiratory/Chest: Positive for: Clear to Auscultation, Good Air Exchange. Negative for: Respiratory Distress, Accessory Muscle Use Cardiovascular: Positive for: Normal S1, S2, Tachycardic. Negative for: Murmurs Abdomen: Positive for: Normal Bowel Sounds. Negative for: Tenderness, Distention, Peritoneal Signs Back: Positive for: Normal Inspection Upper Extremity: Positive for: Normal Inspection. Negative for: Cyanosis, Edema Lower Extremity: Positive for: Other (bandage around left hip). Negative for: Edema Neurological: Positive for: GCS=15, CN II-XII Intact, Speech Normal Skin: Positive for: Warm, Dry, Normal Color. Negative for: Rashes Psychiatric: Positive for: Alert, Oriented x 3, Normal Insight, Normal Concentration - Medications Active Medications: Active Medications Generic Name Dose Route Start Last Admin Trade Name Freq PRN Reason Stop Dose Admin Artificial Tears 0 ml 10/30/16 03:52 Artificial Tears OU TID PRN Dry eyes Sodium Chloride 1,000 mls @ 100 mls/hr 10/29/16 22:15 10/30/16 05:50 Sodium Chloride 0.9% IV 100 mls/hr .Q10H JUANITA Administration Pantoprazole Sodium 100 mls @ 20 mls/hr 10/29/16 22:15 10/30/16 10:45 Protonix 40mg Ivpb IVPB 20 mls/hr .Q5H JUANITA Administration Latanoprost 0 ml 10/30/16 22:00 Xalatan Opht OU HS JUANITA Lorazepam 1 mg 10/29/16 22:01 Ativan IVP Q4 PRN Agitation Protocol - Patient Studies Lab Studies: Lab Studies 10/30/16 10/30/16 Range/Units 06:30 06:00 WBC 14.9 H (4.5-11.0) 10^3/ul RBC 3.04 L (3.5-6.1) 10^6/uL Hgb 8.8 L (14.0-18.0) gm/dL Hct 27.0 L (42.0-52.0) % MCV 88.8 (80.0-105.0) fL MCH 28.9 (25.0-35.0) pg MCHC 32.6 (31.0-37.0) g/dl RDW 14.9 H (11.5-14.5) % Plt Count 195 (120.0-450.0) 10^3/uL MPV 10.8 (7.0-11.0) fl Gran % 66.0 (50.0-68.0) % Lymph % (Auto) 21.1 L (22.0-35.0) % [place]uming % (Auto) 12.4 H (1.0-6.0) % Eos % (Auto) 0.3 L (1.5-5.0) % Baso % (Auto) 0.2 (0.0-3.0) % Gran # 9.82 H (1.4-6.5) Lymph # 3.1 (1.2-3.4) Cuming # 1.8 H (0.1-0.6) Eos # 0.0 (0.0-0.7) Baso # 0.03 (0.0-2.0) K/mm3 Sodium 142 (132-148) mmol/L Potassium 3.9 (3.6-5.0) mmol/L Chloride 109 (95-110) mmol/L Carbon Dioxide 23 (21-33) mmol/L Anion Gap 14 (10-20) BUN 23 H (7-21) mg/dL Creatinine 0.5 (0.5-1.4) mg/dL Est GFR ( Amer) > 60 Est GFR (Non-Af Amer) > 60 Random Glucose 108 (70-110) mg/dL Calcium 7.9 L (8.4-10.5) mg/dL Total Bilirubin 2.7 H (0.2-1.3) mg/dL AST 37 (15-59) U/L ALT 28 (7-56) U/L Alkaline Phosphatase 215 H (38-133) U/L Total Protein 5.6 L (5.8-8.3) g/dL Albumin 2.6 L (3.0-4.8) g/dL Globulin 3.0 gm/dL Albumin/Globulin Ratio 0.9 L (1.1-1.8) Laboratory Results - last 24 hr 10/30/16 10/30/16 06:00 06:30 WBC 14.9 H RBC 3.04 L Hgb 8.8 L Hct 27.0 L MCV 88.8 MCH 28.9 MCHC 32.6 RDW 14.9 H Plt Count 195 MPV 10.8 Gran % 66.0 Lymph % (Auto) 21.1 L [place] % (Auto) 12.4 H Eos % (Auto) 0.3 L Baso % (Auto) 0.2 Gran # 9.82 H Lymph # 3.1 Cuming # 1.8 H Eos # 0.0 Baso # 0.03 Sodium 142 Potassium 3.9 Chloride 109 Carbon Dioxide 23 Anion Gap 14 BUN 23 H Creatinine 0.5 Est GFR ( Amer) > 60 Est GFR (Non-Af Amer) > 60 Random Glucose 108 Calcium 7.9 L Total Bilirubin 2.7 H AST 37 ALT 28 Alkaline Phosphatase 215 H Total Protein 5.6 L Albumin 2.6 L Globulin 3.0 Albumin/Globulin Ratio 0.9 L Review of Systems - Constitutional Constitutional: absent: Fever, Chills - EENT Eyes: absent: Change in Vision - Cardiovascular Cardiovascular: absent: Chest Pain, Dyspnea - Gastrointestinal Gastrointestinal: Hematochezia. absent: Abdominal Pain, Vomiting Critical Care Progress Note - Ventilator Checklist PUD Prophalyxis: Yes DVT Prophylaxis: No (active bleed) Assessment/Plan - Assessment and Plan (Free Text) Assessment: 70 yo M w h/o chronic alcoholism, COPD, recent L IT fx s/p nail fixation admitted [facility] hematochezia s/p 2 units pRBCs, going for EGD this AM Plan: Neuro: CIWA protocol. Ativan 1mg IV Q4hr PRN Seizure precautions Maintain normothermia CV: mild tachy (low 100s). HD stable. Continue to monitor Pulm: Tolerating NC. Maintain spo2>90, pao2>60 GI: Hb 8.8 from 7.9 s/p 2uPRBCs. Patient had witnessed large blood per rectum this AM. For EGD this AM as per GI Bleeding scan was negative for active bleed Monitor Hb Q6hr Total bilirubin elevated 2.7 from 0.9. Will fractionate with AM labs. GI following Abdominal US pending to r/o cirrhosis given h/o chronic alcoholism. Renal: No acute issues. Mild uremia likely 2/2 GIB Endo: Maintain euglycemia 140-180 ID: No signs of active infection. Continue to monitor. Heme: Hb 8.8 from 7.9 s/p 2uPRBCs (baseline ~11). Patient had witnessed large blood per rectum this AM. For EGD this AM as per GI Bleeding scan was negative for active bleed Monitor Hb Q6hr DVT/GI ppx: protonix drip, NPO, contraindication to anticoagulation given active bleed, SCDs - Date & Time Date: 10/30/16 Time: 11:49 <Iker Elaine MD - Last Filed: 10/30/16 14:51> CCU Objective - Vital Signs / Intake & Output Vital Signs (Last 4 hours): Vital Signs Temp Pulse Resp BP 10/30/16 14:41 98.4 F 100 H 18 101/58 L Intake and Output (Last 8hrs): Intake & Output 10/29/16 10/30/16 10/30/16 22:59 06:59 14:59 Intake Total 0 1750 0 Output Total 250 Balance 0 1500 0 Weight 115 lb Intake: IV 420 Left Forearm 300 Left Hand 120 Oral 0 Blood Product 0 1300 0 Red Blood Cells Cpd As1 325 Lr Unit [id number] Red Blood Cells Cpd As1 0 325 Lr Unit [id number] Red Blood Cells Cpd As1 0 Lr Unit [id number] Other 30 Red Blood Cells Cpd As1 30 Lr Unit [id number] Output: Urine 250 Urine, Voided 250 Other: Voiding Method Bedpan # Bowel Movements 3 - Medications Active Medications: Active Medications Generic Name Dose Route Start Last Admin Trade Name Freq PRN Reason Stop Dose Admin Artificial Tears 0 ml 10/30/16 03:52 Artificial Tears OU TID PRN Dry eyes Sodium Chloride 1,000 mls @ 100 mls/hr 10/29/16 22:15 10/30/16 05:50 Sodium Chloride 0.9% IV 100 mls/hr .Q10H JUANITA Administration Pantoprazole Sodium 100 mls @ 20 mls/hr 10/29/16 22:15 10/30/16 10:45 Protonix 40mg Ivpb IVPB 20 mls/hr .Q5H JUANITA Administration Latanoprost 0 ml 10/30/16 22:00 Xalatan Opht OU HS JUANITA Lorazepam 1 mg 10/29/16 22:01 Ativan IVP Q4 PRN Agitation Protocol - Patient Studies Lab Studies: Lab Studies 10/30/16 10/30/16 Range/Units 06:30 06:00 WBC 14.9 H (4.5-11.0) 10^3/ul RBC 3.04 L (3.5-6.1) 10^6/uL Hgb 8.8 L (14.0-18.0) gm/dL Hct 27.0 L (42.0-52.0) % MCV 88.8 (80.0-105.0) fL MCH 28.9 (25.0-35.0) pg MCHC 32.6 (31.0-37.0) g/dl RDW 14.9 H (11.5-14.5) % Plt Count 195 (120.0-450.0) 10^3/uL MPV 10.8 (7.0-11.0) fl Gran % 66.0 (50.0-68.0) % Lymph % (Auto) 21.1 L (22.0-35.0) % Cuming % (Auto) 12.4 H (1.0-6.0) % Eos % (Auto) 0.3 L (1.5-5.0) % Baso % (Auto) 0.2 (0.0-3.0) % Gran # 9.82 H (1.4-6.5) Lymph # 3.1 (1.2-3.4) Cuming # 1.8 H (0.1-0.6) Eos # 0.0 (0.0-0.7) Baso # 0.03 (0.0-2.0) K/mm3 Sodium 142 (132-148) mmol/L Potassium 3.9 (3.6-5.0) mmol/L Chloride 109 (95-110) mmol/L Carbon Dioxide 23 (21-33) mmol/L Anion Gap 14 (10-20) BUN 23 H (7-21) mg/dL Creatinine 0.5 (0.5-1.4) mg/dL Est GFR ( Amer) > 60 Est GFR (Non-Af Amer) > 60 Random Glucose 108 (70-110) mg/dL Calcium 7.9 L (8.4-10.5) mg/dL Total Bilirubin 2.7 H (0.2-1.3) mg/dL AST 37 (15-59) U/L ALT 28 (7-56) U/L Alkaline Phosphatase 215 H (38-133) U/L Total Protein 5.6 L (5.8-8.3) g/dL Albumin 2.6 L (3.0-4.8) g/dL Globulin 3.0 gm/dL Albumin/Globulin Ratio 0.9 L (1.1-1.8) Laboratory Results - last 24 hr 10/30/16 10/30/16 06:00 06:30 WBC 14.9 H RBC 3.04 L Hgb 8.8 L Hct 27.0 L MCV 88.8 MCH 28.9 MCHC 32.6 RDW 14.9 H Plt Count 195 MPV 10.8 Gran % 66.0 Lymph % (Auto) 21.1 L [place]uming % (Auto) 12.4 H Eos % (Auto) 0.3 L Baso % (Auto) 0.2 Gran # 9.82 H Lymph # 3.1 Cuming # 1.8 H Eos # 0.0 Baso # 0.03 Sodium 142 Potassium 3.9 Chloride 109 Carbon Dioxide 23 Anion Gap 14 BUN 23 H Creatinine 0.5 Est GFR ( Amer) > 60 Est GFR (Non-Af Amer) > 60 Random Glucose 108 Calcium 7.9 L Total Bilirubin 2.7 H AST 37 ALT 28 Alkaline Phosphatase 215 H Total Protein 5.6 L Albumin 2.6 L Globulin 3.0 Albumin/Globulin Ratio 0.9 L Critical Care Progress Note - Nutrition Nutrition: Nutrition Category Date Time Status Liquid Diet [DIET] Diets 10/30/16 Lunch Ordered Attending/Attestation - Attestation I have personally seen and examined this patient.: Yes I have fully participated in the care of the patient.: Yes I have reviewed all pertinent clinical information: Yes Notes (Text): 10/30/16 14:49 Pt seen having a BBMPR. Hemodynamic stability achieved. S/P 2 units PRBC with mild improvement of HGB EGD performed by [place], without any potential source . Plans for future Colonoscopy PPI BID NPO CBC q6hrs Off all anticoagulation . D5NS @125ml/hr cc time 45 min
--- NOTE | 2016-10-30 12:05 | CARD ---
APPROVED REPORT EKG Measurement Heart [id number] <Conclusion> Sinus tachycardia Nonspecific ST abnormality Abnormal ECG
[2016-10-30] MEDS ORDERED: Propofol 10 mg/ml Inj (20 ML) ONE (12:07)
[2016-10-30] MEDS ORDERED: Barium Sulfate Susp 2.1% w/v, 2.0% w/w 450 mL Bottle PO ONE (13:05)
--- NOTE | 2016-10-30 13:42 | NM ---
PROCEDURE: Nuclear medicine gastrointestinal bleeding scan. HISTORY: rectal bleeding COMPARISON: None available. TECHNIQUE: 4 cc of patient blood was withdrawn and mixed with 30.0 of technetium ultra tagged. Images of the abdomen and pelvis were obtained in the anterior and posterior projection at 1 min intervals over a period of 45 min. FINDINGS: No abnormal extravasation of tracer was observed throughout the exam to indicate active bleeding within or outside the gastrointestinal tract. Physiologic activity was seen in the heart, liver, spleen and blood vessels. IMPRESSION: No evidence of active gastrointestinal bleeding. Concordant results (preliminary interpretation) provided by [facility]. Procedure Completed: 00:09. Preliminary ([facility]) Report: Dictated and Authenticated: 01:47. Final Interpretation: 13:40. October 30, 2016.
--- NOTE | 2016-10-30 18:05 | CT ---
PROCEDURE: CT Abdomen and Pelvis without intravenous contrast HISTORY: GIB/LEUKOCYSTOSIS R/O ISCHEMIC COLIIS -DIVERTICULOSIS COMPARISON: 06/12/2014 TECHNIQUE: Without contrast.. Contrast Dose: 0 Radiation dose: Total exam DLP = 270.35 mGy-cm. FINDINGS: LOWER THORAX: Unremarkable. LIVER: Fine nodular contour suggestive of hepatic cirrhosis. Normal size, contour and attenuation. No mass. No biliary ductal dilatation. GALLBLADDER AND BILE DUCTS: Cholelithiasis. Mild thickening of the gallbladder wall, nonspecific. Trace pericholecystic fluid in the setting of ascites. PANCREAS: There is fluid/ edema seen about the pancreatic body and head suggestive of acute pancreatitis. Please correlate with clinical and laboratory evaluation. No nita peripancreatic fluid collection. No pancreatic ductal dilatation. SPLEEN: Unremarkable. ADRENALS: Unremarkable. No mass. KIDNEYS AND URETERS: Unremarkable. No hydronephrosis. No solid mass. VASCULATURE: Unremarkable. No aortic aneurysm. BOWEL: Mild saldivar colonic mural thickening consistent with nonspecific enteritis. No bowel obstruction. Sigmoid diverticulosis. APPENDIX: Unremarkable. Normal appendix. PERITONEUM: Mild ascites. LYMPH NODES: Unremarkable. No enlarged lymph nodes. BLADDER: Unremarkable. REPRODUCTIVE: Unremarkable prostate. BONES: Left hip ORIF. No acute fracture. OTHER FINDINGS: None. IMPRESSION: Mild saldivar colonic mural thickening consistent with nonspecific enteritis. Suspect acute pancreatitis. Please correlate with clinical and laboratory evaluation. Probable hepatic cirrhosis. Ascites. Cholelithiasis. Mild thickening gallbladder wall, nonspecific.
--- NOTE | 2016-10-30 19:09 | US ---
HISTORY: evaluate for liver cirrhosis COMPARISON: None. TECHNIQUE: Sonographic evaluation of the abdomen. FINDINGS: LIVER: Measures 14.3 cm. Diffusely increased echogenicity of the liver parenchyma. Consistent with fatty infiltration. Nodular contour. No mass. No biliary ductal dilatation. GALLBLADDER: Cholelithiasis. Thickened wall up to 10 mm common nonspecific. Negative sonographic Kwan's sign. COMMON BILE DUCT: Measures 5 mm. No stones. No dilatation. PANCREAS: Unremarkable as visualized. No mass. No ductal dilatation. RIGHT KIDNEY: Measures 10.8cm. Normal echogenicity. No calculus, mass, or hydronephrosis. LEFT KIDNEY: Measures 11.0cm. Normal echogenicity. No calculus, mass, or hydronephrosis. SPLEEN: Normal in size and contour. No mass. AORTA: No aneurysmal dilatation. IVC: Unremarkable. OTHER FINDINGS: Ascites IMPRESSION: Probable ectatic cirrhosis. Ascites. Fatty liver. Cholelithiasis with thickened gallbladder wall but negative sonographic Kwan's sign. Equivocal findings for cholecystitis.
[2016-10-30 19:43] LABS: MEAN CORPUSCULAR HEMOGLOBIN 29.9 pg (25.0-35.0); MEAN PLATELET VOLUME 10.6 fl (7.0-11.0); RED CELL DISTRIBUTION WIDTH 15.2 % (11.5-14.5); WHITE BLOOD COUNT 16.9 10^3/ul (4.5-11.0)
--- NOTE | 2016-10-30 19:53 | CON ---
DATE: 10/30/2016 Seen and examined at the bedside in ICU earlier today. REQUEST FOR CONSULT: GI bleed. HISTORY OF PRESENT ILLNESS: This is a 70-year-old male with a history of COPD, EtOH, comes from [facility] is rehab. He is status post recent fracture of left hip. The patient was reported to have bleeding per rectum of bright red blood and was transported to the Emergency Room. The patient continued to h ave bleeding per rectum more of clots with also maroon blood stain. The patient is awake and alert a nd in talking with him seems like he has periods of forgetfulness, less confusion. He is a poor hist orian. History obtained from medical chart and the family. On admission, his hemoglobin was found t o be 7.9 and he received 2 units of packed RBCs. The patient does not complain of any nausea, vomiti ng or abdominal pain or any rectal pain. PAST MEDICAL HISTORY: Hypertension, hyperlipidemia, asthma, alcohol abuse. He is also hard of heari ng on the left ear, has COPD, asthma; chronic, it looks like anemia and history of fall. PAST SURGICAL HISTORY: He had recent ORIF of left hip. No history of abdominal surgery. The most r ecent endoscopy was 06/2014, found to have portal hypertensive gastropathy, duodenitis and an irregul ar EG junction. Biopsies were obtained to rule out Lee's esophagus, which did show metapla sissy, but no dysplasia. ALLERGIES: No known drug allergies. MEDICATIONS: Reviewed as per OCT. SOCIAL HISTORY: Positive for smoking, does drink liquor daily about 4 shots, lives with the daughter . MEDICATIONS: Reviewed as per MAR. ALLERGIES: No known drug allergies. REVIEW OF SYSTEMS: Systems were reviewed with positive findings, see HPI. VITAL SIGNS: Temperature is 99.5, blood pressure is 114/75, pulse is 100, respirations 19. LABORATORY DATA: WBC is 14.9, H and H are 8.8 and 27.0, platelets is 195. PT is 12.1, INR is 1.12. PTT 29.1. Sodium 142, K is 3.9, BUN 23, creatinine is 0.5, total bilirubin is 2.7, AST 37, ALT 28, alkaline phosphatase is 215. IMAGING DIAGNOSTICS: He had a chest x-ray on admission and that showed no active pulmonary disease. He also had a GI bleed scan which had no evidence of active GI bleed. PHYSICAL EXAMINATION: HEENT: Sclerae are anicteric. NECK: Supple. CARDIAC: S1, S2. LUNGS: With decreased breath sounds, but did not hear any rales or wheeze. ABDOMEN: With bowel sounds. It is soft and nontender on palpation. No rebound, guarding, or organo megaly. EXTREMITIES: Positive pedal pulses. Did not see any edema. He has diffuse scratches on his legs an d thighs, but no open lesions. RECTAL: Positive for gross blood. ASSESSMENT: This is a 70-year-old male with history of EtOH, chronic obstructive pulmonary disease, status post recent open reduction and internal fixation for a left hip fracture, came from [facility] with complaints of blood per rectum. Rule out any ischemic colitis, rule out diverticular bleed, rule out AVMs, rule out any peptic ulcer disease or variceal bleed. Other comorbidities include hype rtension, COPD, hyperlipidemia. PLAN: Continue Protonix drip. He is at 20 mL an hour, n.p.o. Continue IV fluids for hydration and we will plan for an endoscopy today. Discussed with the patient's brother, Christie Carrion. Phone number we reached him at was [phone], cell number [phone]. Spoke to the patient's brother in det [place] who he requested that we contact and the patient has verbally said that to his brother as well. Thank you for this consult and for allowing us to participate in your patient's care. We will make zoran sher recommendations based upon patient's clinical course. The patient was seen and case discussed with Dr. Oropeza. Tasha MICHAEL cc: [id number] TT: 10/30/2016 19:52:43 Confirmation # [id number] Dictation # [id number] mn
[2016-10-30] MEDS: Latanoprost 2.5 ml Opht Soln OU SCH (22:13)
[2016-10-31] MEDS: Ampicillin/Sulbactam 3 GM in Sodium Chloride 0.9% 100 ML IVPB SCH ×2 (01:00→05:06)
[2016-10-31] MEDS: Pantoprazole 40mg/100ml IVPB 100 ML IVPB SCH (04:15)
[2016-10-31] MEDS: Sodium Chloride 0.9% 1,000 ML IV SCH (04:15)
[2016-10-31 05:16] LABS: ADD MANUAL DIFF? NO
[2016-10-31 05:28] LABS: BASO # 0.02 K/mm3 (0.0-2.0); BASO % 0.1 % (0.0-3.0); EOS # 0.1 (0.0-0.7); GRAN # 9.82 (1.4-6.5); GRAN % 71.9 % (50.0-68.0); LYMPH # 2.7 (1.2-3.4); LYMPH % 19.8 % (22.0-35.0); MEAN CELL VOLUME 86.7 fL (80.0-105.0); MEAN CORPUSCULAR HEMOGLOBIN 29.4 pg (25.0-35.0); MEAN CORPUSCULAR HGB CONC 33.9 g/dl (31.0-37.0); MEAN PLATELET VOLUME 10.3 fl (7.0-11.0); MONO % 7.2 % (1.0-6.0); PLATELET COUNT 171 10^3/uL (120.0-450.0); RED CELL DISTRIBUTION WIDTH 15.5 % (11.5-14.5); WHITE BLOOD COUNT 13.7 10^3/ul (4.5-11.0)
[2016-10-31 05:35] LABS: ALB/GLOB RATIO 0.8 (1.1-1.8); ALKALINE PHOSPHATASE 206 U/L (38-133); ALT/SGPT 32 U/L (7-56); AMYLASE 48 U/L (35-125); AST/SGOT 30 U/L (15-59); BILIRUBIN,TOTAL 1.4 mg/dL (0.2-1.3); BLOOD UREA NITROGEN 18 mg/dL (7-21); CALCIUM 7.7 mg/dL (8.4-10.5); CARBON DIOXIDE 24 mmol/L (21-33); CHLORIDE 112 mmol/L (95-110); GFR AFRICAN-AMERICAN > 60; GLUCOSE,RANDOM 93 mg/dL (70-110); LIPASE 120 U/L (23-300); MAGNESIUM 1.8 mg/dL (1.7-2.2); PHOSPHOROUS 2.2 mg/dL (2.5-4.5); POTASSIUM 3.2 mmol/L (3.6-5.0); SODIUM 145 mmol/L (132-148); TOTAL PROTEIN 5.2 g/dL (5.8-8.3)
[2016-10-31] MEDS ORDERED: Potassium Chloride 20 mEq 100 ML IVPB ONE (06:18)
[2016-10-31] MEDS: Arformoterol 15 mcg/2 ml Inh Sol IH SCH ×2 (07:20→20:13)
[2016-10-31] MEDS: Budesonide 0.5 mg/2 ml Inhal Susp UD IH SCH ×2 (07:20→20:13)
[2016-10-31] MEDS ORDERED: Potassium Chloride 20 mEq ER Tab PO STA (07:45)
[2016-10-31] MEDS ORDERED: Potassium Phosphate 15 MMOLE in Sodium Chloride 0.9% 250 ML IVPB ONE (07:45)
--- NOTE | 2016-10-31 07:46 | CON ---
DATE: 10/30/2016 ADDENDUM: This is an addendum to the GI progress consultation report dictated by Tasha Gallo. This patient was seen and evaluated earlier and also discussed with the patient' s brother who was at bedside at length. This an addendum to GI dictation report by Tasha Gallo APN. This 70-year-old patient with a past medical history of COPD, ETOH use, admitted from rehab facility. He is status post open reduction internal fixation of the left hip. He had a blood clot with bleeding WI. He had 2 units of packed RBCs given. Hemoglobin went up from 7.6 to 8.8. Dw patient's brother and Informed consent was obtained for EGD and had procedure was done. The portal hypertensive changes was not obvious this time. He had mild patchy erythema. There is no obvious upper GI source of blood loss noticed. No obvious portal gastropathy or varices noted this time. The patient does have mild leukocytosis. It is reasonable to consider CT scan of the abdomen and pelvis with p.o. contrast to further evaluate the colon to rule out any ischemic colitis or mass lesion. The patient may need a colonoscopic evaluation, which we will consider after reviewing the CT and further optimization of the patient. Thank you very much for allowing us to participate in the care of the patient. Deyanira Oropeza MD cc: [id number] TT: 10/31/2016 05:13:17 Confirmation # [id number] Dictation # [id number] edvin CHUNG
--- NOTE | 2016-10-31 08:25 | PN ---
DATE: 10/30/2016 SUBJECTIVE: The patient was seen and examined on the bedside in the unit. He is awake, alert, but confused. Oriented to himself only. Denies shortness of breath, no chest pain. No fever. No nausea or vomiting. No headache, no dizziness. PHYSICAL EXAMINATION: HEENT: Head normocephalic, atraumatic. Eyes: PERRLA. Extraocular muscles intact. Conjunctivae pink. Eyelids unremarkable. Nose patent. Mucous membranes moist. NECK: Supple. No carotid bruit, JVD or thyromegaly. CHEST: Bilaterally symmetrical. HEART: S1, S2 positive. LUNGS: Clear to auscultation. ABDOMEN: Soft. Bowel sounds positive. EXTREMITIES: No edema, no cyanosis. NEUROLOGIC: The patient is awake, alert, moving all 4 extremities. No focal deficit. VITAL SIGNS: Temperature 98, pulse 100, blood pressure 101/56, respiratory rate 20. HEAD: Normocephalic, atraumatic. EYES: PERRLA. Extraocular muscles intact. Conjunctivae pink. Eyelids unremarkable. Nose patent. NECK: Supple. No carotid bruit, JVD or thyromegaly. CHEST: Bilaterally symmetrical. HEART: S1, S2 positive. LUNGS: Clear to auscultation. ABDOMEN: Soft. Bowel sounds present. No organomegaly. EXTREMITIES: No edema, no cyanosis. NEUROLOGIC: The patient is awake, alert, moving all 4 extremities, but is confused. LABORATORIES: White blood cells 15.9, hemoglobin 10.2, hematocrit 30.2, platelets 184. Sodium 142, potassium 3.9, BUN 20, creatinine 0.5, calcium 7.9, total bilirubin 2.7. ASSESSMENT AND PLAN: The patient is a 60-year-old male with leukocytosis, anemia, increased BUN, hypocalcemia, abnormal liver function tests, went for CAT scan of abdomen and pelvis today which showed mild pancolonic mural thickening consistent with nonspecific enteritis, suspect acute pancreatitis. Please correlate with clinical and lab evaluation. Hepatic , cirrhosis, ascites , cholelithiasis. Mild thickened gallbladder. Seen by GI, history of hypertension, hypercholesterolemia, asthma, history of ethanol abuse, hearing problem, chronic obstructive pulmonary disease, asthma, history of fall, status post recent open reduction and internal fixation of the left hip fracture, came from [facility], was getting rehab there, complaining of blood per rectum, rule out any ischemic colitis, rule out diverticular bleed. Rule out AVMS, rule out peptic ulcer disease or visceral bleed. Continue Protonix, IV fluids. GI spoke to the patient's brother, Mookie . Discussion done with Dr. Oropeza. The patient went for endoscopy. The patient has hiatal hernia, gastritis, esophagitis, no upper GI source of bleeding or blood loss, will need colonoscopy. Bleeding scan was done and showed no evidence of active gastrointestinal bleeding. Appreciate GI input. Continue present treatment. Repeat labs. We will follow up. Evie Ponce MD cc: [id number] TT: 10/31/2016 02:47:39 Confirmation # [id number] Dictation # [id number] tn MTDD
[2016-10-31] MEDS ORDERED: Magnesium Citrate Oral SOL (300 ml) PO ONE (11:00)
--- NOTE | 2016-10-31 11:31 | CP.CCUPN ---
<Leslie Russell - Last Filed: 10/31/16 11:28> CCU Subjective - Physician Review Events Since Last Encounter (Free Text): 10/31/16 11:28 Patient seen and examined bedside. No acute events. No acute bleed found on EGD. No further episodes of BRBPR since yesterday afternoon. Patient more alert and less confused than yesterdays. Currently denies CP, SOB, abd pain, n/v/d, fevers, chills. Critical Care Time Spent (in minutes): 40 CCU Objective - Vital Signs / Intake & Output Intake and Output (Last 8hrs): Intake & Output 10/30/16 10/31/16 10/31/16 22:59 06:59 14:59 Intake Total 2275 2240 Balance 2275 2240 Weight 100 lb Intake: IV 1150 1440 Left Forearm 1150 Left Hand 1440 Oral 750 800 Blood Product 325 Red Blood Cells Cpd As1 325 Lr Unit [id number] Other 50 Red Blood Cells Cpd As1 50 Lr Unit [id number] Other: Voiding Method Bedpan # Voids Urine, Voided 3 4 # Bowel Movements 3 1 - Physical Exam Head: Positive for: Atraumatic, Normocephalic Pupils: Positive for: PERRL Extroacular Muscles: Positive for: EOMI Conjunctiva: Positive for: Normal Mouth: Positive for: Moist Mucous Membranes Neck: Positive for: Normal Range of Motion Respiratory/Chest: Positive for: Clear to Auscultation, Good Air Exchange. Negative for: Respiratory Distress, Accessory Muscle Use Cardiovascular: Positive for: Normal S1, S2, Tachycardic. Negative for: Murmurs Abdomen: Positive for: Normal Bowel Sounds. Negative for: Tenderness, Distention, Peritoneal Signs Back: Positive for: Normal Inspection Upper Extremity: Positive for: Normal Inspection. Negative for: Cyanosis, Edema Lower Extremity: Positive for: Other (bandage around left hip). Negative for: Edema Neurological: Positive for: GCS=15, CN II-XII Intact, Speech Normal Skin: Positive for: Warm, Dry, Normal Color. Negative for: Rashes Psychiatric: Positive for: Alert, Oriented x 3, Normal Insight, Normal Concentration - Medications Active Medications: Active Medications Generic Name Dose Route Start Last Admin Trade Name Freq PRN Reason Stop Dose Admin Arformoterol Tartrate 15 mcg 10/31/16 08:00 10/31/16 07:20 Brovana IH 15 mcg [id number] JUANITA Administration Artificial Tears 0 ml 10/30/16 03:52 Artificial Tears OU TID PRN Dry eyes Budesonide 0.5 mg 10/31/16 08:00 10/31/16 07:20 Pulmicort Respules IH 0.5 mg [id number] JUANITA Administration Sodium Chloride 1,000 mls @ 100 mls/hr 10/29/16 22:15 10/31/16 04:15 Sodium Chloride 0.9% IV 100 mls/hr .Q10H JUANITA Administration Pantoprazole Sodium 100 mls @ 20 mls/hr 10/29/16 22:15 10/31/16 04:15 Protonix 40mg Ivpb IVPB 20 mls/hr .Q5H JUANITA Administration Ampicillin Sodium/Sulbactam 100 mls @ 200 mls/hr 10/31/16 00:00 10/31/16 05:06 Sodium 3 gm/ Sodium Chloride IVPB 200 mls/hr Q6 JUANITA Administration Protocol Potassium Phosphate 15 mmole/ 255 mls @ 42.5 mls/hr 10/31/16 07:45 10/31/16 09: 56 Sodium Chloride IVPB 10/31/16 13:44 42.5 mls/hr ONCE ONE Administration Latanoprost 0 ml 10/30/16 22:00 10/30/16 22:13 Xalatan Opht OU 2.5 ml HS JUANITA Administration Lorazepam 1 mg 10/29/16 22:01 Ativan IVP Q4 PRN Agitation Protocol Metronidazole 500 mg 10/31/16 14:00 Flagyl PO Q8 JUANITA Protocol - Patient Studies Lab Studies: Microbiology Studies 10/30/16 02:00 MRSA Culture (Admit) - Final Naris MRSA NOT DETECTED Lab Studies 10/31/16 10/30/16 Range/Units 05:00 19:40 WBC 13.7 H 16.9 H (4.5-11.0) 10^3/ul RBC 3.23 L 3.41 L (3.5-6.1) 10^6/uL Hgb 9.5 L 10.2 L (14.0-18.0) gm/dL Hct 28.0 L 30.0 L (42.0-52.0) % MCV 86.7 88.0 (80.0-105.0) fL MCH 29.4 29.9 (25.0-35.0) pg MCHC 33.9 34.0 (31.0-37.0) g/dl RDW 15.5 H 15.2 H (11.5-14.5) % Plt Count 171 184 (120.0-450.0) 10^3/uL MPV 10.3 10.6 (7.0-11.0) fl Gran % 71.9 H (50.0-68.0) % Lymph % (Auto) 19.8 L (22.0-35.0) % [place] % (Auto) 7.2 H (1.0-6.0) % Eos % (Auto) 1.0 L (1.5-5.0) % Baso % (Auto) 0.1 (0.0-3.0) % Gran # 9.82 H (1.4-6.5) Lymph # 2.7 (1.2-3.4) [place] # 1.0 H (0.1-0.6) Eos # 0.1 (0.0-0.7) Baso # 0.02 (0.0-2.0) K/mm3 Sodium 145 (132-148) mmol/L Potassium 3.2 L (3.6-5.0) mmol/L Chloride 112 H (95-110) mmol/L Carbon Dioxide 24 (21-33) mmol/L Anion Gap 12 (10-20) BUN 18 (7-21) mg/dL Creatinine 0.6 (0.5-1.4) mg/dL Est GFR ( Amer) > 60 Est GFR (Non-Af Amer) > 60 Random Glucose 93 (70-110) mg/dL Calcium 7.7 L (8.4-10.5) mg/dL Phosphorus 2.2 L (2.5-4.5) mg/dL Magnesium 1.8 (1.7-2.2) mg/dL Total Bilirubin 1.4 H (0.2-1.3) mg/dL AST 30 (15-59) U/L ALT 32 (7-56) U/L Alkaline Phosphatase 206 H (38-133) U/L Total Protein 5.2 L (5.8-8.3) g/dL Albumin 2.3 L (3.0-4.8) g/dL Globulin 2.9 gm/dL Albumin/Globulin Ratio 0.8 L (1.1-1.8) Amylase 48 (35-125) U/L Lipase 120 (23-300) U/L Laboratory Results - last 24 hr 10/30/16 10/31/16 19:40 05:00 WBC 16.9 H 13.7 H RBC 3.41 L 3.23 L Hgb 10.2 L 9.5 L Hct 30.0 L 28.0 L MCV 88.0 86.7 MCH 29.9 29.4 MCHC 34.0 33.9 RDW 15.2 H 15.5 H Plt Count 184 171 MPV 10.6 10.3 Gran % 71.9 H Lymph % (Auto) 19.8 L [place] % (Auto) 7.2 H Eos % (Auto) 1.0 L Baso % (Auto) 0.1 Gran # 9.82 H Lymph # 2.7 [place] # 1.0 H Eos # 0.1 Baso # 0.02 Sodium 145 Potassium 3.2 L Chloride 112 H Carbon Dioxide 24 Anion Gap 12 BUN 18 Creatinine 0.6 Est GFR ( Amer) > 60 Est GFR (Non-Af Amer) > 60 Random Glucose 93 Calcium 7.7 L Phosphorus 2.2 L Magnesium 1.8 Total Bilirubin 1.4 H AST 30 ALT 32 Alkaline Phosphatase 206 H Total Protein 5.2 L Albumin 2.3 L Globulin 2.9 Albumin/Globulin Ratio 0.8 L Amylase 48 Lipase 120 Review of Systems - Constitutional Constitutional: absent: Fever, Chills - EENT Eyes: absent: Blurred Vision, Change in Vision Ears: absent: Disequilibrium, Dizziness - Cardiovascular Cardiovascular: absent: Chest Pain, Diaphoresis, Dyspnea - Respiratory Respiratory: absent: Cough, Dyspnea, Pain on Inspiration - Gastrointestinal Gastrointestinal: absent: Abdominal Pain, Nausea, Vomiting - Genitourinary Genitourinary: absent: Dysuria - Integumentary Integumentary: absent: New Lesions - Neurological Neurological: absent: Focal Weakness Critical Care Progress Note - Ventilator Checklist PUD Prophalyxis: Yes DVT Prophylaxis: Yes - Prophylaxis GI Prophylaxis GI: PPI - Prophylaxis DVT Prophylaxis DVT: SCDs - Nutrition Nutrition: Nutrition Category Date Time Status Liquid Diet [DIET] Diets 10/30/16 Lunch Ordered Assessment/Plan - Assessment and Plan (Free Text) Assessment: 70 yo M w h/o chronic alcoholism, COPD, recent L IT fx s/p nail fixation admitted to ICU from detention for hematochezia s/p 2 units pRBCs, going for EGD this AM Plan: Neuro: CIWA protocol. Ativan 1mg IV Q4hr PRN Seizure precautions Maintain normothermia CV: No acute issues. HD stable. Continue to monitor Pulm: Tolerating NC. Maintain spo2>90, pao2>60 Continue Brovana, Pulmicort GI: Hb 9.5 s/p 3uPRBCs DC IVF and monitor CBC, no further signs of bleeding Bleeding scan was negative for active bleed CT A/P with PO contrast shoes mild saldivar-colonic mural thickening c/w nonspecific enteritis, possible hepatic cirrhosis, cholelithiasis with mild GB wall thickening Abdominal US shows fatty liver infiltration, cholelithiasis with thickened GB wall, equivocal cholecystitis EGD yesterday showed gastritis, small hiatal hernia, mild esophagitis, no stigmata of recent bleed identified Flagyl as per GI for possible enteritis/cholecystitis Total bilirubin improved 1.4 from 2.7 (0.9 at admission). GI following. No CBD dilation on abd US Renal: No acute issues. Mild uremia likely 2/2 GIB resolved Hypokalemia, hypomagnesemia, hypophosphatemia replaced. Recheck AM labs Endo: Maintain euglycemia 140-180 ID: Flagyl for possible cholecytitis/enteritis as per imaging Heme: Hb 9.5 s/p 3 uPRBCs (baseline ~11). EGD showed no acute bleed. Bleeding scan was negative for active bleed Monitor Hb DVT/GI ppx: protonix drip, CLD, SCDs Dispo: Transfer to telemetry if ok with GI service - awaiting callback - Date & Time Date: 10/31/16 Time: 11:32 <Greg Johnson - Last Filed: 10/31/16 13:07> CCU Objective - Vital Signs / Intake & Output Vital Signs (Last 4 hours): Vital Signs Temp Pulse Resp BP Pulse Ox 10/31/16 11:43 88 29 H 97 10/31/16 11:30 98.2 F 90 20 108/53 L 99 10/31/16 11:16 96 H 34 H 115/57 L 97 10/31/16 11:00 95 H 23 100/56 L 97 10/31/16 10:45 88 22 100/53 L 98 10/31/16 10:30 92 H 29 H 103/57 L 99 10/31/16 10:15 96 H 37 H 97/68 L 99 10/31/16 10:00 110/64 99 10/31/16 09:45 10 L 107/58 L 100 10/31/16 09:30 99 H 22 106/61 100 10/31/16 09:15 97 H 18 109/60 98 Intake and Output (Last 8hrs): Intake & Output 10/30/16 10/31/16 10/31/16 22:59 06:59 14:59 Intake Total 2275 2240 Balance 2275 2240 Weight 100 lb 100 lb Intake: IV 1150 1440 Left Forearm 1150 Left Hand 1440 Oral 750 800 Blood Product 325 Red Blood Cells Cpd As1 325 Lr Unit [id number] Other 50 Red Blood Cells Cpd As1 50 Lr Unit [id number] Other: Voiding Method Bedpan Bedpan # Voids Urine, Voided 3 4 # Bowel Movements 3 1 - Medications Active Medications: Active Medications Generic Name Dose Route Start Last Admin Trade Name Freq PRN Reason Stop Dose Admin Arformoterol Tartrate 15 mcg 10/31/16 08:00 10/31/16 07:20 Brovana IH 15 mcg [id number] JUANITA Administration Artificial Tears 0 ml 10/30/16 03:52 Artificial Tears OU TID PRN Dry eyes Budesonide 0.5 mg 10/31/16 08:00 10/31/16 07:20 Pulmicort Respules IH 0.5 mg [id number] JUANITA Administration Potassium Phosphate 15 mmole/ 255 mls @ 42.5 mls/hr 10/31/16 07:45 10/31/16 09: 56 Sodium Chloride IVPB 10/31/16 13:44 42.5 mls/hr ONCE ONE Administration Latanoprost 0 ml 10/30/16 22:00 10/30/16 22:13 Xalatan Opht OU 2.5 ml HS JUANITA Administration Lorazepam 1 mg 10/29/16 22:01 Ativan IVP Q4 PRN Agitation Protocol Metronidazole 500 mg 10/31/16 14:00 Flagyl PO Q8 JUANITA Protocol Pantoprazole Sodium 40 mg 11/01/16 10:00 Protonix Inj IVP DAILY JUANITA - Patient Studies Lab Studies: Microbiology Studies 10/30/16 02:00 MRSA Culture (Admit) - Final Naris MRSA NOT DETECTED Lab Studies 10/31/16 10/30/16 Range/Units 05:00 19:40 WBC 13.7 H 16.9 H (4.5-11.0) 10^3/ul RBC 3.23 L 3.41 L (3.5-6.1) 10^6/uL Hgb 9.5 L 10.2 L (14.0-18.0) gm/dL Hct 28.0 L 30.0 L (42.0-52.0) % MCV 86.7 88.0 (80.0-105.0) fL MCH 29.4 29.9 (25.0-35.0) pg MCHC 33.9 34.0 (31.0-37.0) g/dl RDW 15.5 H 15.2 H (11.5-14.5) % Plt Count 171 184 (120.0-450.0) 10^3/uL MPV 10.3 10.6 (7.0-11.0) fl Gran % 71.9 H (50.0-68.0) % Lymph % (Auto) 19.8 L (22.0-35.0) % [place] % (Auto) 7.2 H (1.0-6.0) % Eos % (Auto) 1.0 L (1.5-5.0) % Baso % (Auto) 0.1 (0.0-3.0) % Gran # 9.82 H (1.4-6.5) Lymph # 2.7 (1.2-3.4) [place] # 1.0 H (0.1-0.6) Eos # 0.1 (0.0-0.7) Baso # 0.02 (0.0-2.0) K/mm3 Sodium 145 (132-148) mmol/L Potassium 3.2 L (3.6-5.0) mmol/L Chloride 112 H (95-110) mmol/L Carbon Dioxide 24 (21-33) mmol/L Anion Gap 12 (10-20) BUN 18 (7-21) mg/dL Creatinine 0.6 (0.5-1.4) mg/dL Est GFR ( Amer) > 60 Est GFR (Non-Af Amer) > 60 Random Glucose 93 (70-110) mg/dL Calcium 7.7 L (8.4-10.5) mg/dL Phosphorus 2.2 L (2.5-4.5) mg/dL Magnesium 1.8 (1.7-2.2) mg/dL Total Bilirubin 1.4 H (0.2-1.3) mg/dL AST 30 (15-59) U/L ALT 32 (7-56) U/L Alkaline Phosphatase 206 H (38-133) U/L Total Protein 5.2 L (5.8-8.3) g/dL Albumin 2.3 L (3.0-4.8) g/dL Globulin 2.9 gm/dL Albumin/Globulin Ratio 0.8 L (1.1-1.8) Amylase 48 (35-125) U/L Lipase 120 (23-300) U/L Laboratory Results - last 24 hr 10/30/16 10/31/16 19:40 05:00 WBC 16.9 H 13.7 H RBC 3.41 L 3.23 L Hgb 10.2 L 9.5 L Hct 30.0 L 28.0 L MCV 88.0 86.7 MCH 29.9 29.4 MCHC 34.0 33.9 RDW 15.2 H 15.5 H Plt Count 184 171 MPV 10.6 10.3 Gran % 71.9 H Lymph % (Auto) 19.8 L [place] % (Auto) 7.2 H Eos % (Auto) 1.0 L Baso % (Auto) 0.1 Gran # 9.82 H Lymph # 2.7 [place] # 1.0 H Eos # 0.1 Baso # 0.02 Sodium 145 Potassium 3.2 L Chloride 112 H Carbon Dioxide 24 Anion Gap 12 BUN 18 Creatinine 0.6 Est GFR ( Amer) > 60 Est GFR (Non-Af Amer) > 60 Random Glucose 93 Calcium 7.7 L Phosphorus 2.2 L Magnesium 1.8 Total Bilirubin 1.4 H AST 30 ALT 32 Alkaline Phosphatase 206 H Total Protein 5.2 L Albumin 2.3 L Globulin 2.9 Albumin/Globulin Ratio 0.8 L Amylase 48 Lipase 120 Critical Care Progress Note - Nutrition Nutrition: Nutrition Category Date Time Status Liquid Diet [DIET] Diets 10/30/16 Lunch Ordered Addendum Addendum: 10/31/16 13:04 patient was seen, examined and discussed at bedside with Dr. Russell shoulder to shoulder. Her note reflects my exam, assessment and plan except as below. meds/ Labs/ONE reviewed. 70 yo male with chronic liver disease, presented with upper GI bleed. Initially resuscitated and EGD done-->no variceal bleed, no PUD. Hb stable, hemodynamically stable. GI cleared for clear liquid diet. If ok overnight will downgrade in am ccm time 40 min
--- NOTE | 2016-10-31 11:51 | PN ---
DATE: 10/31/2016 Seen and examined earlier this morning. The patient is awake and alert with no reports of acute over night events. He is not reported to have any more blood per rectum. He had a light brown pasty stoo l this morning. Unfortunately, it was mixed with urine, so stool for C. diff was not able to be sent . The patient denies any symptoms of nausea, vomiting or abdominal pain. No fever or chills. He is status post 3 units of packed RBCs total. Hemoglobin steady. VITAL SIGNS: Temperature 99.4, blood pressure /59, pulse 91, 97 on room air. LABORATORY DATA: WBC 13.7. This is trending down compared to yesterday's at 16.9. His hemoglobin t his morning is 9.5 and hematocrit 28.0, platelets are 171. Chem: Sodium is 145, K is 3.2. He is re ceiving potassium replacement. His BUN is 18, creatinine 0.6, magnesium is 1.8. Total bilirubin is 1.4, AST 30, ALT is 32, alkaline phosphatase is 206. Total bilirubin, alkaline phosphatase is improv ed today. He had abdominal ultrasound done yesterday and this showed fatty infiltration and nodular content. No biliary ductal dilatation. It did show cholelithiasis with a thickened wall up to 10 mm . Negative for sonographic Kwan sign. The common bile duct measured 5 mm. Pancreas was unremarka ble. Equivocal findings for cholecystitis. We sent him for a CT scan of abdomen and pelvis with onl y oral contrast. The report was reviewed and this showed fine nodular contour suggestive of hepatic cirrhosis. It did show cholelithiasis and mild gallbladder wall, nonspecific, with trace pericholecy stic fluid in the setting of ascites. The pancreas appears with fluid and edema in the body and head suggestive of acute pancreatitis. No pancreatic ductal dilatation or nita peripancreatic fluid col lection. In the bowel, there is mild pancolonic mural thickening consistent with nonspecific enterit is. No obstruction and also found sigmoid diverticulosis. The patient did have amylase and lipase l evel done which are within normal limits. PHYSICAL EXAMINATION: HEENT: Sclerae are anicteric. NECK: Supple. CARDIAC: S1, S2. LUNGS: Decreased breath sounds, but clear, no rales or wheeze. ABDOMEN: With bowel sounds, it is soft and nontender. No rebound or guarding. EXTREMITIES: Positive pedal pulses, no edema. NEUROLOGIC: The patient is awake and alert, with periods of confusion. ASSESSMENT: This is a 70-year-old man status post recent hip fracture with repair, came from [facility] with complaints of bleeding per rectum. He also has a history of ETOH and chronic obs tructive pulmonary disease. He had an endoscopy done yesterday, which showed gastritis and LA grade esophagitis. We sent the patient for a CAT scan to rule out any ischemic colitis or diverticular ble ed. He is noted to have a CAT scan, sigmoid diverticulosis, equivocal cholecystitis, but the patient is asymptomatic. He is noted to have liver cirrhosis. There were nodular changes in the liver. Th e patient does have history of ETOH and had a paracenteses in the past. Also looks like the patient has thickening in the colon with colitis. The patient has come with leukocytosis. We will rule out any Clostridium difficile. His other comorbidities include chronic obstructive pulmonary disease, as thma, hyperlipidemia, hypertension. PLAN: Pending stool for C. difficile. We will give the patient a dose of magnesium citrate. Hopefu lly will be able to collect stool for C. diff. We will start him on p.o. Flagyl 500 mg p.o. q. 8 cameron rs. He is on Protonix drip, which maybe we can consider to decrease the dose since EGD was negative for ulcers. He is also noted to be hypokalemic. He is receiving potassium replacement. He has been started on IV antibiotics of ampicillin. Continue the clear liquid diet, monitor H and H. We will c ontinue to follow closely. The patient was seen and case discussed with Dr. Oropeza. Tasha MICHAEL cc: [id number] TT: 10/31/2016 11:50:39 Confirmation # [id number] Dictation # [id number] jeremy
--- NOTE | 2016-10-31 14:30 | CON ---
DATE: 10/31/2016 REFERRING PHYSICIAN: Dr. Ponce REASON FOR CONSULTATION: Chronic obstructive lung disease, status post fall with hip fracture requir ing repair, now admitted with GI bleed, pancreatitis, cirrhotic liver. HISTORY OF PRESENT ILLNESS: This is a 70-year-old gentleman with past medical history significant fo r chronic obstructive lung disease, legally blind, status post mechanical fall with intertrochanteric fracture requiring hip replacement just a few days ago. Had alcohol withdrawal at that time, treate d with benzodiazepines. He is also deaf in left ear, hypertension. So he was sent to [facility] rehab. While at [facility], end up with GI bleed and came to Emergency Room, was admitted to intensive care [facility], seen by piano regulator, GI. Had a bleeding scan done, which was negative. Had endoscopy done, shows erosive gastritis. Presently, still in intensive care unit. Has diarrhea, mild cough, not much spu willie production. No nausea, no vomiting. No leg pain or leg swelling. PAST MEDICAL HISTORY: Chronic obstructive lung disease, alcohol abuse, legally blind, hypertension, hyperlipidemia, pancreatitis, cirrhotic liver. ALLERGIES: None known. SOCIAL HISTORY: Active smoker. Denied any alcohol use. FAMILY HISTORY: No significant cardiopulmonary disease reported. MEDICATIONS: He is on artificial tears 3 times a day both eyes, Ativan 1 mg IV q. 4 hours p.r.n. for agitation, Brovana 15 mcg inhaled twice a day, Flagyl 500 mg q. 8 hours, Protonix 40 mg IV daily, Pu lmicort inhaled twice a day, has Xalatan ophthalmic solution. REVIEW OF SYSTEMS: No headache, no rhinitis. Mild cough. No shortness breath, no chest pain, no na usea, no vomiting, no abdominal pain. Complaining about diarrhea. No leg pain or leg swelling. No more GI bleed. PHYSICAL EXAMINATION: GENERAL: Lying in the bed, no acute distress. VITAL SIGNS: Temp is 98, heart rate is 90, respiratory rate is 20, blood pressure 108/53, pulse ox 9 7% on nasal cannula. HEENT: Moist mucous membranes. Small oral cavity. NECK: Supple. No JVD. LUNGS: Has scattered rhonchi, prolonged expiratory phase. HEART: S1 and S2. ABDOMEN: Soft, nontender, nondistended. EXTREMITIES: No edema. NEUROLOGIC: Awake, alert, follows simple commands. He is very hard of hearing. LABORATORY DATA: Shows hemoglobin 9.5, hematocrit 28.0, WBC 13.7, platelet is 171. INR 1.12, PTT 29 . On admission, VBG done, which showed pH 7.46, pCO2 42, O2 49. Chemistry shows sodium , potas sium 3.2, chloride 112, bicarbonate 24, BUN 18, creatinine 0.6, glucose 93, calcium 7.7, phosphorus 2 .2, magnesium 1.8, AST 30, ALT 32, alkaline phosphatase is , albumin 2.3, amylase 48, lipase is 120. MICROBIOLOGY: Blood culture negative. Naris MRSA non-detected. Had a CT scan of the abdomen done, which shows pancolonic mural thickening consistent with nonspecifi c enteritis, acute pancreatitis, cirrhotic liver, small ascites, cholelithiasis, mild thickening of t he gallbladder wall. Also had endoscopy done yesterday, which shows gastritis. IMPRESSION AND PLAN: Chronic obstructive lung disease, pancreatitis, cirrhotic liver, gastrointestin al bleed, enteritis, rule out Clostridium difficile colitis. Agree with the present management. Sto ol for Clostridium difficile has been sent. Started on Flagyl. Continue inhaled bronchodilator. Ke ep head at 45 degrees. Alcohol withdrawal precaution. Fall precaution. Gastric prophylaxis. Seque ntial compression devices to lower extremities. Follow up labs in the morning. Thank you and we will follow with you. Theodore Atkins MD cc: [phone] TT: 10/31/2016 14:29:57 Confirmation # [id number] Dictation # [id number] en
[2016-10-31 20:23] LABS: ADD MANUAL DIFF? NO
[2016-10-31 20:31] LABS: BASO # 0.03 K/mm3 (0.0-2.0); BASO % 0.2 % (0.0-3.0); EOS # 0.2 (0.0-0.7); GRAN # 11.58 (1.4-6.5); GRAN % 70.4 % (50.0-68.0); HEMATOCRIT 26.7 % (42.0-52.0); LYMPH # 3.4 (1.2-3.4); LYMPH % 20.8 % (22.0-35.0); MEAN CELL VOLUME 88.1 fL (80.0-105.0); MEAN CORPUSCULAR HEMOGLOBIN 29.7 pg (25.0-35.0); MEAN CORPUSCULAR HGB CONC 33.7 g/dl (31.0-37.0); MEAN PLATELET VOLUME 10.4 fl (7.0-11.0); MONO # 1.3 (0.1-0.6); MONO % 7.6 % (1.0-6.0); PLATELET COUNT 200 10^3/uL (120.0-450.0); WHITE BLOOD COUNT 16.4 10^3/ul (4.5-11.0)
--- NOTE | 2016-10-31 20:55 | PN ---
DATE: 10/31/2016 ADDENDUM SUBJECTIVE: This patient was seen and evaluated earlier. This is an addendum to the GI progress rep ort dictated by Tasha Gallo. Discussed with the nursing staff. The patient has been having loose montez wel movements. No further bleeding. The patient's CT scan was reviewed, has diffuse thickening of t he colon noticed. Rule out Clostridium difficile colitis. The patient's stool was sent for Clostrid ium difficile. The patient has been on p.o. Flagyl. The patient was given 1 bottle of magnesia . Potassium is being supplemented. We will consider colonoscopic evaluation tomorrow. We will revi ew the stool studies before confirming the procedure. If it is C. diff, would rather wait for that t o improve. Thank you very much for allowing us to participate in the care of the patient. Deyanira Oropeza MD cc: [id number] TT: 10/31/2016 20:55:06 Confirmation # [id number] Dictation # [id number] jeremy
[2016-10-31] MEDS: Latanoprost 2.5 ml Opht Soln OU SCH (21:26)
--- NOTE | 2016-11-01 00:08 | PN ---
DATE: 10/31/2016 SUBJECTIVE: The patient was seen and examined on the bedside. Complains of having diarrhea. Stool sent for C. difficile toxin colitis, but no blood. Today, he is awake, alert. It looks like oriented. No nausea or vomiting. No swelling of the leg. No fever. No chills. The patient is still in the ICU. PHYSICAL EXAMINATION: VITAL SIGNS: Temperature 98, heart rate 90, respiratory rate 20, blood pressure 108/53, pulse oximetry 97% on nasal cannula. HEENT: Head normocephalic, atraumatic. Eyes: PERRLA. Extraocular muscles intact. Conjunctivae pink. Eyelids unremarkable. Nose patent. NECK: Supple. No carotid bruit. No thyromegaly. CHEST: Bilaterally symmetrical. HEART: S1, S2 positive. LUNGS: Clear to auscultation. ABDOMEN: Soft. Bowel sounds present. No organomegaly. EXTREMITIES: No edema. No cyanosis. NEUROLOGIC: The patient is awake, alert, moving all 4 extremities. No focal deficit. MEDICATIONS: Artificial tears, Ativan, Brovana, Flagyl, Protonix, Pulmicort, Xanax, Xalatan ophthalmic solution. ASSESSMENT AND PLAN: The patient with multiple comorbidities, has chronic obstructive lung disease, pancreatitis, cirrhosis of the liver, gastrointestinal bleeding, enteritis, rule out Clostridium difficile toxin colitis. Send specimen for stool. Started on Flagyl. Continue his bronchodilators. History of ethanol abuse. History of delirium tremens. Fall , gastric prophylaxis, sequential compression devices to lower extremities. Looks like awake and alert today. Communicating. Seen by Dr. Oropeza, mannequin maker. No more gastrointestinal bleeding. CAT scan showed diffuse thickening of the colon. Potassium is being replaced. Considering a colonoscopic evaluation tomorrow. According to Dr. Oropeza, he will review Clostridium difficile toxin stool results. If it is positive, then he will wait for surgery. He will wait for colonoscopy for improvement. CAT scan of the abdomen and pelvis reviewed. No acute event. done esophagogastroduodenoscopy. No shortness of breath or chest pain. On esophagogastroduodenoscopy there is no sourse of bleed. No peptic ulcer disease. Patient is hemodynamically stable. Gastrointestinal and deep venous thrombosis prophylaxis. Repeat labs. We will follow up. Evie Ponce MD cc: [id number] TT: 11/01/2016 00:07:03 Confirmation # [id number] Dictation # [id number] tn MTDD
[2016-11-01 05:45] LABS: ADD MANUAL DIFF? NO
[2016-11-01 05:56] LABS: BASO # 0.02 K/mm3 (0.0-2.0); BASO % 0.1 % (0.0-3.0); EOS # 0.2 (0.0-0.7); EOS % 1.2 % (1.5-5.0); GRAN # 10.97 (1.4-6.5); HEMATOCRIT 24.8 % (42.0-52.0); LYMPH # 3.3 (1.2-3.4); LYMPH % 21.2 % (22.0-35.0); MEAN CELL VOLUME 88.9 fL (80.0-105.0); MEAN CORPUSCULAR HEMOGLOBIN 29.4 pg (25.0-35.0); MEAN CORPUSCULAR HGB CONC 33.1 g/dl (31.0-37.0); MEAN PLATELET VOLUME 10.5 fl (7.0-11.0); MONO % 6.5 % (1.0-6.0); PLATELET COUNT 189 10^3/uL (120.0-450.0); WHITE BLOOD COUNT 15.5 10^3/ul (4.5-11.0)
[2016-11-01 06:10] LABS: ALB/GLOB RATIO 0.8 (1.1-1.8); ALKALINE PHOSPHATASE 235 U/L (38-133); ALT/SGPT 41 U/L (7-56); AST/SGOT 33 U/L (15-59); BILIRUBIN,TOTAL 0.9 mg/dL (0.2-1.3); BLOOD UREA NITROGEN 15 mg/dL (7-21); CARBON DIOXIDE 23 mmol/L (21-33); CHLORIDE 112 mmol/L (95-110); GFR AFRICAN-AMERICAN > 60; GLUCOSE,RANDOM 100 mg/dL (70-110); MAGNESIUM 2.1 mg/dL (1.7-2.2); PHOSPHOROUS 2.7 mg/dL (2.5-4.5); POTASSIUM 3.5 mmol/L (3.6-5.0); SODIUM 142 mmol/L (132-148); TOTAL PROTEIN 5.4 g/dL (5.8-8.3)
[2016-11-01] MEDS: Arformoterol 15 mcg/2 ml Inh Sol IH SCH ×2 (07:27→20:50)
[2016-11-01] MEDS: Budesonide 0.5 mg/2 ml Inhal Susp UD IH SCH ×2 (07:27→20:50)
--- NOTE | 2016-11-01 07:27 | CP.CCUPN ---
<Leslie Russell - Last Filed: 11/01/16 09:49> CCU Subjective - Physician Review Events Since Last Encounter (Free Text): 11/01/16 09:02 Patient seen and examined bedside. No acute events overnight. Has been having loose BMs with Mag citrate. No further episodes of BRBPR, no melena. Patient denies CP, SOB, abd pain, n/v, fevers, chills, rashes. Critical Care Time Spent (in minutes): 30 CCU Objective - Vital Signs / Intake & Output Vital Signs (Last 4 hours): Vital Signs Temp Pulse Resp BP Pulse Ox 11/01/16 05:00 93 H 25 H 93/50 L 96 11/01/16 04:00 97.8 F 92 H 23 99/54 L 96 Intake and Output (Last 8hrs): Intake & Output 10/31/16 11/01/16 11/01/16 22:59 06:59 14:59 Intake Total 1770 400 Output Total 600 Balance 1770 -200 Weight 100 lb 6.4 oz Intake: IV 1050 0 Left Forearm 950 Left Hand 100 0 Oral 720 400 Output: Urine 600 Urine, Voided 600 Other: Voiding Method Bedpan Bedpan # Voids Urine, Voided 2 # Bowel Movements 3 2-way Urethral 6 - Physical Exam Head: Positive for: Atraumatic, Normocephalic Pupils: Positive for: PERRL Extroacular Muscles: Positive for: EOMI Conjunctiva: Positive for: Normal Mouth: Positive for: Moist Mucous Membranes Neck: Positive for: Normal Range of Motion Respiratory/Chest: Positive for: Clear to Auscultation, Good Air Exchange. Negative for: Respiratory Distress, Accessory Muscle Use Cardiovascular: Positive for: Normal S1, S2, Tachycardic. Negative for: Murmurs Abdomen: Positive for: Normal Bowel Sounds. Negative for: Tenderness, Distention, Peritoneal Signs Back: Positive for: Normal Inspection Upper Extremity: Positive for: Normal Inspection. Negative for: Cyanosis, Edema Lower Extremity: Positive for: Other (bandage around left hip). Negative for: Edema Neurological: Positive for: GCS=15, CN II-XII Intact, Speech Normal Skin: Positive for: Warm, Dry, Normal Color. Negative for: Rashes Psychiatric: Positive for: Alert, Oriented x 3, Normal Insight, Normal Concentration - Medications Active Medications: Active Medications Generic Name Dose Route Start Last Admin Trade Name Freq PRN Reason Stop Dose Admin Arformoterol Tartrate 15 mcg 10/31/16 08:00 10/31/16 20:13 Brovana IH 15 mcg [id number] JUANITA Administration Budesonide 0.5 mg 10/31/16 08:00 10/31/16 20:13 Pulmicort Respules IH 0.5 mg [id number] JUANITA Administration Latanoprost 0 ml 10/30/16 22:00 10/31/16 21:26 Xalatan Opht OU 2.5 ml HS JUANITA Administration Lorazepam 1 mg 10/29/16 22:01 Ativan IVP Q4 PRN Agitation Protocol Metronidazole 500 mg 10/31/16 14:00 11/01/16 05:27 Flagyl PO Not Given Q8 JUANITA Protocol Pantoprazole Sodium 40 mg 11/01/16 10:00 Protonix Inj IVP DAILY JUANITA - Patient Studies Lab Studies: Microbiology Studies 10/30/16 02:00 MRSA Culture (Admit) - Final Naris MRSA NOT DETECTED Lab Studies 11/01/16 10/31/16 Range/Units 05:40 20:15 WBC 15.5 H 16.4 H (4.5-11.0) 10^3/ul RBC 2.79 L 3.03 L (3.5-6.1) 10^6/uL Hgb 8.2 L 9.0 L (14.0-18.0) gm/dL Hct 24.8 L 26.7 L (42.0-52.0) % MCV 88.9 88.1 (80.0-105.0) fL MCH 29.4 29.7 (25.0-35.0) pg MCHC 33.1 33.7 (31.0-37.0) g/dl RDW 16.0 H 16.0 H (11.5-14.5) % Plt Count 189 200 (120.0-450.0) 10^3/uL MPV 10.5 10.4 (7.0-11.0) fl Gran % 71.0 H 70.4 H (50.0-68.0) % Lymph % (Auto) 21.2 L 20.8 L (22.0-35.0) % Starr % (Auto) 6.5 H 7.6 H (1.0-6.0) % Eos % (Auto) 1.2 L 1.0 L (1.5-5.0) % Baso % (Auto) 0.1 0.2 (0.0-3.0) % Gran # 10.97 H 11.58 H (1.4-6.5) Lymph # 3.3 3.4 (1.2-3.4) Starr # 1.0 H 1.3 H (0.1-0.6) Eos # 0.2 0.2 (0.0-0.7) Baso # 0.02 0.03 (0.0-2.0) K/mm3 Sodium 142 (132-148) mmol/L Potassium 3.5 L (3.6-5.0) mmol/L Chloride 112 H (95-110) mmol/L Carbon Dioxide 23 (21-33) mmol/L Anion Gap 11 (10-20) BUN 15 (7-21) mg/dL Creatinine 0.6 (0.5-1.4) mg/dL Est GFR ( Amer) > 60 Est GFR (Non-Af Amer) > 60 Random Glucose 100 (70-110) mg/dL Calcium 8.0 L (8.4-10.5) mg/dL Phosphorus 2.7 (2.5-4.5) mg/dL Magnesium 2.1 (1.7-2.2) mg/dL Total Bilirubin 0.9 (0.2-1.3) mg/dL AST 33 (15-59) U/L ALT 41 (7-56) U/L Alkaline Phosphatase 235 H (38-133) U/L Total Protein 5.4 L (5.8-8.3) g/dL Albumin 2.4 L (3.0-4.8) g/dL Globulin 2.9 gm/dL Albumin/Globulin Ratio 0.8 L (1.1-1.8) Laboratory Results - last 24 hr 10/31/16 11/01/16 20:15 05:40 WBC 16.4 H 15.5 H RBC 3.03 L 2.79 L Hgb 9.0 L 8.2 L Hct 26.7 L 24.8 L MCV 88.1 88.9 MCH 29.7 29.4 MCHC 33.7 33.1 RDW 16.0 H 16.0 H Plt Count 200 189 MPV 10.4 10.5 Gran % 70.4 H 71.0 H Lymph % (Auto) 20.8 L 21.2 L Starr % (Auto) 7.6 H 6.5 H Eos % (Auto) 1.0 L 1.2 L Baso % (Auto) 0.2 0.1 Gran # 11.58 H 10.97 H Lymph # 3.4 3.3 Starr # 1.3 H 1.0 H Eos # 0.2 0.2 Baso # 0.03 0.02 Sodium 142 Potassium 3.5 L Chloride 112 H Carbon Dioxide 23 Anion Gap 11 BUN 15 Creatinine 0.6 Est GFR ( Amer) > 60 Est GFR (Non-Af Amer) > 60 Random Glucose 100 Calcium 8.0 L Phosphorus 2.7 Magnesium 2.1 Total Bilirubin 0.9 AST 33 ALT 41 Alkaline Phosphatase 235 H Total Protein 5.4 L Albumin 2.4 L Globulin 2.9 Albumin/Globulin Ratio 0.8 L Review of Systems - Constitutional Constitutional: absent: Fever, Chills - EENT Eyes: absent: Change in Vision - Cardiovascular Cardiovascular: absent: Chest Pain, Chest Pain at Rest, Diaphoresis, Dyspnea - Respiratory Respiratory: absent: Cough, Dyspnea, Pain on Inspiration - Gastrointestinal Gastrointestinal: Loose Stools (non-bloody, non-melenotic). absent: Abdominal Pain, Hematochezia, Nausea, Vomiting - Genitourinary Genitourinary: absent: Dysuria - Integumentary Integumentary: absent: New Lesions, Rash - Neurological Neurological: absent: Dizziness, Focal Weakness, Headaches - Psychiatric Psychiatric: absent: Panic Attacks Critical Care Progress Note - Ventilator Checklist PUD Prophalyxis: Yes DVT Prophylaxis: Yes - Prophylaxis GI Prophylaxis GI: PPI - Prophylaxis DVT Prophylaxis DVT: SCDs - Nutrition Nutrition: Nutrition Category Date Time Status Liquid Diet [DIET] Diets 10/30/16 Lunch Ordered Assessment/Plan - Assessment and Plan (Free Text) Assessment: 70 yo M w h/o chronic alcoholism, COPD, recent L IT fx s/p nail fixation admitted to ICU from detention for hematochezia s/p 3 units pRBCs, negative EGD, C diff negative, pending colonoscopy Plan: Neuro: CIWA protocol. Ativan 1mg IV Q4hr PRN Seizure precautions Maintain normothermia CV: No acute issues. HD stable. Continue to monitor Pulm: Tolerating NC. Maintain spo2>90, pao2>60 Continue Brovana Pulmicort GI: Hb 8.2, s/p 3u pRBCs Bleeding scan was negative for active bleed CT A/P with PO contrast shoes mild saldivar-colonic mural thickening c/w nonspecific enteritis, possible hepatic cirrhosis, cholelithiasis with mild GB wall thickening Abdominal US shows fatty liver infiltration, cholelithiasis with thickened GB wall, equivocal cholecystitis EGD showed gastritis, small hiatal hernia, mild esophagitis, no stigmata of recent bleed identified Flagyl as per GI for possible enteritis C diff negative. Tentative colonoscopy planned as per GI Total bilirubin elevation resolved. GI following. No CBD dilation on abd US Renal: No acute issues. Mild uremia likely 2/2 GIB resolved Hypokalemia replaced. Recheck AM labs Endo: Maintain euglycemia 140-180 ID: Flagyl for possible enteritis as per GI. C diff negative Heme: Hb currently 8.2. EGD showed no acute bleed. C diff negative. Colonoscopy as per GI Bleeding scan was negative for active bleed CT A/P shows possible enteritis Monitor Hb DVT/GI ppx: protonix, CLD, SCDs, PT/OT Dispo: Transfer to telemetry - Date & Time Date: 11/01/16 Time: 10:00 <Greg Johnson - Last Filed: 11/01/16 16:00> CCU Objective - Vital Signs / Intake & Output Intake and Output (Last 8hrs): Intake & Output 11/01/16 11/01/16 11/01/16 06:59 14:59 22:59 Intake Total 400 Output Total 600 Balance -200 Weight 100 lb 6.4 oz Intake: IV 0 Left Hand 0 Oral 400 Output: Urine 600 Urine, Voided 600 Other: Voiding Method Bedpan Bedpan # Bowel Movements 3 - Medications Active Medications: Active Medications Generic Name Dose Route Start Last Admin Trade Name Freq PRN Reason Stop Dose Admin Arformoterol Tartrate 15 mcg 10/31/16 08:00 11/01/16 07:27 Brovana IH 15 mcg [id number] JUANITA Administration Budesonide 0.5 mg 10/31/16 08:00 11/01/16 07:27 Pulmicort Respules IH 0.5 mg [id number] JUANITA Administration Octreotide Acetate 50 mcg/ 51 mls @ 102 mls/hr 11/01/16 14:00 11/01/16 15:10 Sodium Chloride IVPB 11/02/16 14:01 102 mls/hr Q8 JUANITA Administration Potassium Chloride 100 mls @ 50 mls/hr 11/01/16 15:12 Potassium Chloride 20 Meq/100 Ml IVPB 11/01/16 17:11 ONCE ONE Latanoprost 0 ml 10/30/16 22:00 10/31/16 21:26 Xalatan Opht OU 2.5 ml HS JUANITA Administration Lorazepam 1 mg 10/29/16 22:01 Ativan IVP Q4 PRN Agitation Protocol Metronidazole 500 mg 10/31/16 14:00 11/01/16 15:09 Flagyl PO 500 mg Q8 JUANITA Administration Protocol Pantoprazole Sodium 40 mg 11/01/16 10:00 11/01/16 10:12 Protonix Inj IVP 40 mg DAILY JUANITA Administration - Patient Studies Lab Studies: Microbiology Studies 10/31/16 11:40 C. difficile Antigen & Toxin A,B (M - Final Stool Lab Studies 11/01/16 11/01/16 10/31/16 Range/Units 10:03 05:40 20:15 WBC 15.5 H 16.4 H (4.5-11.0) 10^3/ul RBC 2.79 L 3.03 L (3.5-6.1) 10^6/uL Hgb 8.2 L 9.0 L (14.0-18.0) gm/dL Hct 24.8 L 26.7 L (42.0-52.0) % MCV 88.9 88.1 (80.0-105.0) fL MCH 29.4 29.7 (25.0-35.0) pg MCHC 33.1 33.7 (31.0-37.0) g/dl RDW 16.0 H 16.0 H (11.5-14.5) % Plt Count 189 200 (120.0-450.0) 10^3/uL MPV 10.5 10.4 (7.0-11.0) fl Gran % 71.0 H 70.4 H (50.0-68.0) % Lymph % (Auto) 21.2 L 20.8 L (22.0-35.0) % Starr % (Auto) 6.5 H 7.6 H (1.0-6.0) % Eos % (Auto) 1.2 L 1.0 L (1.5-5.0) % Baso % (Auto) 0.1 0.2 (0.0-3.0) % Gran # 10.97 H 11.58 H (1.4-6.5) Lymph # 3.3 3.4 (1.2-3.4) Starr # 1.0 H 1.3 H (0.1-0.6) Eos # 0.2 0.2 (0.0-0.7) Baso # 0.02 0.03 (0.0-2.0) K/mm3 pO2 37 (30-55) mm/Hg VBG pH 7.47 H (7.32-7.43) VBG pCO2 36.0 L (40-60) VBG HCO3 26.2 (21-28) mmol/l VBG Total CO2 27.3 (22-28) mmol.L VBG O2 Sat (Calc) 78.9 H (40-65) % VBG Base Excess 2.7 H (0.0-2.0) mmol/L VBG Potassium 3.4 L (3.6-5.2) mmol/L Sodium 143.0 142 (132-148) mmol/L Chloride 116.0 H 112 H (98-107) mmol/L Glucose 98 (75-110) mg/dl Lactate 0.9 (0.7-2.1) mmol/L FiO2 21.0 % Potassium 3.5 L (3.6-5.0) mmol/L Carbon Dioxide 23 (21-33) mmol/L Anion Gap 11 (10-20) BUN 15 (7-21) mg/dL Creatinine 0.6 (0.5-1.4) mg/dL Est GFR ( Amer) > 60 Est GFR (Non-Af Amer) > 60 Random Glucose 100 (70-110) mg/dL Calcium 8.0 L (8.4-10.5) mg/dL Phosphorus 2.7 (2.5-4.5) mg/dL Magnesium 2.1 (1.7-2.2) mg/dL Total Bilirubin 0.9 (0.2-1.3) mg/dL AST 33 (15-59) U/L ALT 41 (7-56) U/L Alkaline Phosphatase 235 H (38-133) U/L Troponin I < 0.01 ng/mL Total Protein 5.4 L (5.8-8.3) g/dL Albumin 2.4 L (3.0-4.8) g/dL Globulin 2.9 gm/dL Albumin/Globulin Ratio 0.8 L (1.1-1.8) Venous Blood Potassium 3.4 L (3.6-5.2) mmol/L Laboratory Results - last 24 hr 10/31/16 11/01/16 11/01/16 20:15 05:40 10:03 WBC 16.4 H 15.5 H RBC 3.03 L 2.79 L Hgb 9.0 L 8.2 L Hct 26.7 L 24.8 L MCV 88.1 88.9 MCH 29.7 29.4 MCHC 33.7 33.1 RDW 16.0 H 16.0 H Plt Count 200 189 MPV 10.4 10.5 Gran % 70.4 H 71.0 H Lymph % (Auto) 20.8 L 21.2 L Starr % (Auto) 7.6 H 6.5 H Eos % (Auto) 1.0 L 1.2 L Baso % (Auto) 0.2 0.1 Gran # 11.58 H 10.97 H Lymph # 3.4 3.3 Starr # 1.3 H 1.0 H Eos # 0.2 0.2 Baso # 0.03 0.02 pO2 37 VBG pH 7.47 H VBG pCO2 36.0 L VBG HCO3 26.2 VBG Total CO2 27.3 VBG O2 Sat (Calc) 78.9 H VBG Base Excess 2.7 H VBG Potassium 3.4 L Glucose 98 Lactate 0.9 FiO2 21.0 Sodium 142 143.0 Potassium 3.5 L Chloride 112 H 116.0 H Carbon Dioxide 23 Anion Gap 11 BUN 15 Creatinine 0.6 Est GFR ( Amer) > 60 Est GFR (Non-Af Amer) > 60 Random Glucose 100 Calcium 8.0 L Phosphorus 2.7 Magnesium 2.1 Total Bilirubin 0.9 AST 33 ALT 41 Alkaline Phosphatase 235 H Troponin I < 0.01 Total Protein 5.4 L Albumin 2.4 L Globulin 2.9 Albumin/Globulin Ratio 0.8 L Venous Blood Potassium 3.4 L Critical Care Progress Note - Nutrition Nutrition: Nutrition Category Date Time Status Liquid Diet [DIET] Diets 10/30/16 Lunch Ordered Liquid Diet [DIET] Diets 11/01/16 Dinner Ordered Addendum Addendum: 11/01/16 15:52 patient was seen, examined and discussed at bedside shoulder to shoulder with Dr. Russell. Her note reflects my exam, assessment and plan, except as below. Meds/Labs/ONE reviewed. 70 yo with lower GI bleed. s/p colonoscopy today that revealed few angiodysplasias that were cuaterized. Patient is hemodyanmically stable, no lactic acidosis, no chest pain and no troponin leak, respiratory king stable. will conitnue with serial cbc, advance diet as cleared by GI, octreotide and overnight ICU observation. ccm time 40 min
[2016-11-01] MEDS ORDERED: Potassium Chloride 20 mEq ER Tab PO STA (07:39)
[2016-11-01] MEDS ORDERED: Potassium Chloride 20 mEq 100 ML IVPB SCH (10:00)
[2016-11-01 10:06] LABS: VENOUS BLOOD GAS BASE EXCESS 2.7 mmol/L (0.0-2.0); VENOUS BLOOD PH 7.47 (7.32-7.43)
[2016-11-01] MEDS ORDERED: Propofol 10 mg/ml Inj (20 ML) ONE (10:47)
--- NOTE | 2016-11-01 14:33 | PQF ANEMIA ---
This form is a permanent part of the medical record Clarification of your documentation is requested to better reflect the severity of illness and intensity of treatment of your patient. Indicators present Pt admitted w/ c/o rectal bleeding. H&H- 7.9/ 24.8, Transfused w/ 3 UPRBC. Please document if Acute blood loss anemia was POA. []x Anemia [] Drop in H&H from []__7.2/ 24.8_ to []___10.0/ 30.0 [] Hypotension [x] GI Bleed [x] Transfusion(s) [] Acute bleed other sites [] Tachycardia [] Surgical Procedure Blood Loss (expected not a complication) Other:x[] Seeping transverse colon AVM, cauterized Location in the medical record that reflects the above clinical findings: [v] Colonoscopy report Treatment Provided: [x]Transfuse 3 UPRBC PHYSICIAN'S RESPONSE Based on your medical judgment of the clinical indicators outlined above, are you treating this patient for a known or suspected: [] Acute blood loss anemia [] Chronic blood loss anemia [x] Acute on Chronic blood loss anemia [] Anemia due to malignancy [] Anemia due to chemotherapy or radiation therapy [] Anemia of Chronic Disease, please specify: [] [] Other, please indicate type of anemia []____ [] If Unable to Determine, please check the box, sign and date. Present On Admission (POA) Indicator: [x] Present at the time of admission [] Not present at the time of admission [] Clinically Undetermined In responding to this query, please exercise your independent professional judgment. The fact that a question is asked does not imply that any particular answer is desired or expected. Thank you for your clarification on this documentation. If you have any questions please call:[ ][phone] * Thank you, [ ]Tessa Moeller RN CDS dental assistant instructor JULIET
[2016-11-01] MEDS ORDERED: Potassium Chloride 20 mEq 100 ML IVPB ONE (15:12)
[2016-11-01] MEDS: Latanoprost 2.5 ml Opht Soln OU SCH (22:01)
--- NOTE | 2016-11-01 22:43 | PN ---
DATE: 11/01/2016 REFERRING PHYSICIAN: Dr. Ponce. SUBJECTIVE: He is lying in the bed, head at 45 degrees, feels better, decreased cough, decreased zulma rtness of breath. No nausea, no vomiting, no diarrhea, decreased bowel movements. No leg pain or le g swelling. OBJECTIVE: GENERAL: In no acute distress. VITAL SIGNS: Temp is 98, heart is 82, respiratory rate is 20, blood pressure 108/57, pulse ox 100% o n room air. HEENT: Moist mucous membrane. Crowded airway. NECK: Supple. No JVD. LUNGS: Has a few scattered rhonchi and a few wheezing. HEART: S1 and S2. ABDOMEN: Soft, nontender. No organomegaly. EXTREMITIES: There is no edema. NEUROLOGIC: Awake, alert, follows simple commands. MEDICATIONS: He is on Ativan 1 mg q.4 hours p.r.n., Brovana 15 mcg inhaled twice a day, Flagyl 500 m g q.8 hours, IV, Protonix 40 mg daily, Pulmicort inhaled twice a day. LABORATORY DATA: Shows hemoglobin 8.2, hematocrit 24.8, WBC 15.5, platelet is 189. VBG this morning shows pH 7.47, pCO2 of 37, O2 is 37. MICROBIOLOGY: Blood cultures, stool and nares are unremarkable. Ollie may endoscopy done today, which sh ows a few nonbleeding colonic , diverticulosis in the entire examined colon, a single recently b leeding clonic angiodysplastic lesion treated with bipolar cautery and multiple, 6 mm to 12 mm, polyp s in the sigmoid colon. IMPRESSION AND PLAN: Chronic obstructive lung disease, pancreatitis, cirrhotic liver, gastrointestin al bleed. Pulmonary point of view, he is doing well. Keep head elevated at 45 degrees. Continue br onchodilator and aspiration precaution. May get him out of bed to chair and start therapy. Continue p.r.n. Ativan for alcohol withdrawal. Follow up labs in the morning. Thank you and will follow with you. Theodore Atkins MD cc: [id number] TT: 11/01/2016 22:42:32 Confirmation # [id number] Dictation # [id number] dn
--- NOTE | 2016-11-02 01:53 | PN ---
DATE: 11/01/2016 SUBJECTIVE: The patient is seen and examined on the bedside, oriented, awake and alert, having diarrhea due to the magnesium citrate. No blood in the stool. No chest pain or shortness of breath. No headache, no dizziness, no fever, no chills. Looks appropriate. PHYSICAL EXAMINATION: VITAL SIGNS: Temperature 97.8, pulse 92, respiratory rate 23, blood pressure 90 /54, and pulse oximetry 66. HEENT: Head normocephalic, atraumatic. Eyes: PERRLA. Extraocular muscles intact. Conjunctivae pink. Eyelids unremarkable. Nose patent. Mucous membranes moist. NECK: Supple. No carotid bruit or thyromegaly. CHEST: Bilaterally symmetrical. HEART: S1, S2 positive. LUNGS: Clear to auscultation. ABDOMEN: Soft. Bowel sounds positive. No organomegaly. EXTREMITIES: No edema, no cyanosis. NEUROLOGIC: The patient is awake, alert, moving all 4 extremities. No focal deficits. MEDICATIONS: 1. Pulmicort. 2. Eyedrops. 3. Ativan. 4. Flagyl. 5. Protonix. LABORATORY DATA: White blood cells 15.5, hemoglobin 8.2, hematocrit 24.8, platelets 189, potassium 3.5, BUN 15, creatinine 0.6. Calcium 8.0. AST 33, ALT 41. ASSESSMENT AND PLAN: The patient is a 70-year-old male with a history of chronic alcoholism, status post fall, leg fracture, spinal fixation of left femur, chronic obstructive pulmonary disease, history of active gastrointestinal bleeding ,RBC, negative EGD, C. difficile toxin negative. Colonoscopy showed angiodysplasia may be cause of bleeding, multiple polyps, but it was not removed because of the danger of bleeding and the patient was not very clean from inside. Continue Ativan for seizure precautions. VQ scan was negative for active bleeding. CAT scan reviewed by me, history of cholelithiasis and cirrhosis of the liver. Abdominal ultrasound reviewed by me shows fatty liver. EGD showed gastritis, hiatal hernia, mild esophagitis. No significant facial bleeding identified, possibly enteritis. The patient is getting Flagyl, C difficile colitis negative. Plan was after keeping overnight , to transfer the patient to telemetry. Angiodysplasia was cauterized by Dr. Oropeza. Continue seizure H and H checking and observing GI bleeding. Octreotide started overnight in ICU for observation. We will follow up tomorrow. Evie Ponce MD cc: [id number] TT: 11/02/2016 01:52:42 Confirmation # [id number] Dictation # [id number] MTDD
[2016-11-02 06:12] LABS: ADD MANUAL DIFF? NO
[2016-11-02 06:21] LABS: BASO # 0.02 K/mm3 (0.0-2.0); BASO % 0.1 % (0.0-3.0); EOS # 0.3 (0.0-0.7); GRAN # 10.23 (1.4-6.5); GRAN % 73.4 % (50.0-68.0); HEMATOCRIT 26.5 % (42.0-52.0); LYMPH # 2.6 (1.2-3.4); LYMPH % 18.9 % (22.0-35.0); MEAN CELL VOLUME 91.4 fL (80.0-105.0); MEAN CORPUSCULAR HEMOGLOBIN 30.3 pg (25.0-35.0); MEAN CORPUSCULAR HGB CONC 33.2 g/dl (31.0-37.0); MEAN PLATELET VOLUME 10.2 fl (7.0-11.0); MONO # 0.8 (0.1-0.6); MONO % 5.6 % (1.0-6.0); PLATELET COUNT 202 10^3/uL (120.0-450.0)
[2016-11-02 06:26] LABS: ALB/GLOB RATIO 0.8 (1.1-1.8); ALKALINE PHOSPHATASE 238 U/L (38-133); ALT/SGPT 28 U/L (7-56); AST/SGOT 33 U/L (15-59); BILIRUBIN,TOTAL 0.8 mg/dL (0.2-1.3); BLOOD UREA NITROGEN 13 mg/dL (7-21); CARBON DIOXIDE 25 mmol/L (21-33); CHLORIDE 111 mmol/L (98-107); GFR AFRICAN-AMERICAN > 60; GLUCOSE,RANDOM 102 mg/dL (70-110); POTASSIUM 3.6 mmol/L (3.6-5.0); SODIUM 142 mmol/L (132-148); TOTAL PROTEIN 5.6 g/dL (5.8-8.3)
--- NOTE | 2016-11-02 07:13 | CP.CCUPN ---
<Leslie Russell - Last Filed: 11/02/16 10:45> CCU Subjective - Physician Review Events Since Last Encounter (Free Text): 11/02/16 09:33 Patient seen and examined bedside. No acute events overnight. Patient admits to loose stools, non-bloody, non-melenotic. Denies CP, SOB, abd pain, n/v, fevers, chills. Critical Care Time Spent (in minutes): 30 CCU Objective - Vital Signs / Intake & Output Vital Signs (Last 4 hours): Vital Signs Temp Pulse Resp BP Pulse Ox 11/02/16 06:00 93 H 33 H 106/57 L 94 L 11/02/16 05:00 89 23 119/60 94 L 11/02/16 04:01 96 H 30 H 109/57 L 97 11/02/16 04:00 101 H 34 H 88 L 11/02/16 03:59 98.6 F 11/02/16 03:55 97 H 36 H Intake and Output (Last 8hrs): Intake & Output 11/01/16 11/02/16 11/02/16 22:59 06:59 14:59 Intake Total 640 270 Output Total 200 204 Balance 440 66 Intake: IV 40 120 Left Hand 40 120 Oral 600 150 Output: Urine 200 200 Urine, Voided 200 200 Urine/Stool Mix 4 Other: Voiding Method Bedpan # Voids Urine, Voided 4 # Bowel Movements 2 4 - Physical Exam Head: Positive for: Atraumatic, Normocephalic Pupils: Positive for: PERRL Extroacular Muscles: Positive for: EOMI Conjunctiva: Positive for: Normal Mouth: Positive for: Moist Mucous Membranes Neck: Positive for: Normal Range of Motion Respiratory/Chest: Positive for: Clear to Auscultation, Good Air Exchange. Negative for: Respiratory Distress, Accessory Muscle Use Cardiovascular: Positive for: Normal S1, S2, Tachycardic. Negative for: Murmurs Abdomen: Positive for: Normal Bowel Sounds. Negative for: Tenderness, Distention, Peritoneal Signs Back: Positive for: Normal Inspection Upper Extremity: Positive for: Normal Inspection. Negative for: Cyanosis, Edema Lower Extremity: Positive for: Other (bandage around left hip). Negative for: Edema Neurological: Positive for: GCS=15, CN II-XII Intact, Speech Normal Skin: Positive for: Warm, Dry, Normal Color. Negative for: Rashes Psychiatric: Positive for: Alert, Oriented x 3, Normal Insight, Normal Concentration - Medications Active Medications: Active Medications Generic Name Dose Route Start Last Admin Trade Name Freq PRN Reason Stop Dose Admin Arformoterol Tartrate 15 mcg 10/31/16 08:00 11/01/16 20:50 Brovana IH 15 mcg [id number] JUANITA Administration Budesonide 0.5 mg 10/31/16 08:00 11/01/16 20:50 Pulmicort Respules IH 0.5 mg [id number] JUANITA Administration Octreotide Acetate 1,250 mcg/ 252.5 mls @ 10.1 mls/hr 11/01/16 16:00 11/01/16 17:14 Sodium Chloride IV 10.1 mls/hr .Q24H JUANITA Administration Protocol 50 MCG/HR Latanoprost 0 ml 10/30/16 22:00 11/01/16 22:01 Xalatan Opht OU 1 ml HS JUANITA Administration Lorazepam 1 mg 10/29/16 22:01 11/02/16 00:09 Ativan IVP 1 mg Q4 PRN Administration Agitation Protocol Metronidazole 500 mg 10/31/16 14:00 11/02/16 05:38 Flagyl PO 500 mg Q8 JUANITA Administration Protocol Pantoprazole Sodium 40 mg 11/01/16 10:00 11/01/16 10:12 Protonix Inj IVP 40 mg DAILY JUANITA Administration - Patient Studies Lab Studies: Microbiology Studies 10/31/16 11:40 C. difficile Antigen & Toxin A,B (M - Final Stool Lab Studies 11/02/16 11/01/16 Range/Units 06:00 10:03 WBC 14.0 H (4.5-11.0) 10^3/ul RBC 2.90 L (3.5-6.1) 10^6/uL Hgb 8.8 L (14.0-18.0) gm/dL Hct 26.5 L (42.0-52.0) % MCV 91.4 (80.0-105.0) fL MCH 30.3 (25.0-35.0) pg MCHC 33.2 (31.0-37.0) g/dl RDW 17.0 H (11.5-14.5) % Plt Count 202 (120.0-450.0) 10^3/uL MPV 10.2 (7.0-11.0) fl Gran % 73.4 H (50.0-68.0) % Lymph % (Auto) 18.9 L (22.0-35.0) % [place] % (Auto) 5.6 (1.0-6.0) % Eos % (Auto) 2.0 (1.5-5.0) % Baso % (Auto) 0.1 (0.0-3.0) % Gran # 10.23 H (1.4-6.5) Lymph # 2.6 (1.2-3.4) [place] # 0.8 H (0.1-0.6) Eos # 0.3 (0.0-0.7) Baso # 0.02 (0.0-2.0) K/mm3 pO2 37 (30-55) mm/Hg VBG pH 7.47 H (7.32-7.43) VBG pCO2 36.0 L (40-60) VBG HCO3 26.2 (21-28) mmol/l VBG Total CO2 27.3 (22-28) mmol.L VBG O2 Sat (Calc) 78.9 H (40-65) % VBG Base Excess 2.7 H (0.0-2.0) mmol/L VBG Potassium 3.4 L (3.6-5.2) mmol/L Glucose 98 (75-110) mg/dl Lactate 0.9 (0.7-2.1) mmol/L FiO2 21.0 % Sodium 142 143.0 (132-148) mmol/L Potassium 3.6 (3.6-5.0) mmol/L Chloride 111 H 116.0 H (98-107) mmol/L Carbon Dioxide 25 (21-33) mmol/L Anion Gap 10 (10-20) BUN 13 (7-21) mg/dL Creatinine 0.7 (0.5-1.4) mg/dL Est GFR ( Amer) > 60 Est GFR (Non-Af Amer) > 60 Random Glucose 102 (70-110) mg/dL Calcium 8.0 L (8.4-10.5) mg/dL Phosphorus 3.0 (2.5-4.5) mg/dL Magnesium 2.0 (1.7-2.2) mg/dL Total Bilirubin 0.8 (0.2-1.3) mg/dL AST 33 (15-59) U/L ALT 28 (7-56) U/L Alkaline Phosphatase 238 H (38-133) U/L Troponin I < 0.01 ng/mL Total Protein 5.6 L (5.8-8.3) g/dL Albumin 2.5 L (3.0-4.8) g/dL Globulin 3.1 gm/dL Albumin/Globulin Ratio 0.8 L (1.1-1.8) Venous Blood Potassium 3.4 L (3.6-5.2) mmol/L Laboratory Results - last 24 hr 11/01/16 11/02/16 10:03 06:00 WBC 14.0 H RBC 2.90 L Hgb 8.8 L Hct 26.5 L MCV 91.4 MCH 30.3 MCHC 33.2 RDW 17.0 H Plt Count 202 MPV 10.2 Gran % 73.4 H Lymph % (Auto) 18.9 L [place] % (Auto) 5.6 Eos % (Auto) 2.0 Baso % (Auto) 0.1 Gran # 10.23 H Lymph # 2.6 [place] # 0.8 H Eos # 0.3 Baso # 0.02 pO2 37 VBG pH 7.47 H VBG pCO2 36.0 L VBG HCO3 26.2 VBG Total CO2 27.3 VBG O2 Sat (Calc) 78.9 H VBG Base Excess 2.7 H VBG Potassium 3.4 L Sodium 143.0 142 Chloride 116.0 H 111 H Glucose 98 Lactate 0.9 FiO2 21.0 Potassium 3.6 Carbon Dioxide 25 Anion Gap 10 BUN 13 Creatinine 0.7 Est GFR ( Amer) > 60 Est GFR (Non-Af Amer) > 60 Random Glucose 102 Calcium 8.0 L Phosphorus 3.0 Magnesium 2.0 Total Bilirubin 0.8 AST 33 ALT 28 Alkaline Phosphatase 238 H Troponin I < 0.01 Total Protein 5.6 L Albumin 2.5 L Globulin 3.1 Albumin/Globulin Ratio 0.8 L Venous Blood Potassium 3.4 L Review of Systems - Constitutional Constitutional: absent: Fever, Chills - EENT Eyes: absent: Change in Vision Ears: absent: Dizziness - Cardiovascular Cardiovascular: absent: Chest Pain, Dyspnea, Palpitations - Respiratory Respiratory: absent: Cough, Dyspnea, Pain on Inspiration - Gastrointestinal Gastrointestinal: Loose Stools (non-bloody, ). absent: Abdominal Pain, Hematochezia, Melena, Nausea, Vomiting - Genitourinary Genitourinary: absent: Dysuria - Integumentary Integumentary: absent: New Lesions, Rash - Endocrine Endocrine: absent: Excessive Sweating, Palpitations Critical Care Progress Note - Ventilator Checklist PUD Prophalyxis: Yes DVT Prophylaxis: Yes - Prophylaxis GI Prophylaxis GI: PPI - Prophylaxis DVT Prophylaxis DVT: SCDs - Nutrition Nutrition: Nutrition Category Date Time Status Liquid Diet [DIET] Diets 11/01/16 Dinner Ordered Assessment/Plan - Assessment and Plan (Free Text) Assessment: 70 yo M w h/o chronic alcoholism, COPD, recent L IT fx s/p nail fixation admitted to [facility] for hematochezia s/p 3 units pRBCs, negative EGD, C diff negative, pending colonoscopy Plan: Neuro: CIWA protocol. Ativan 1mg IV Q4hr PRN Seizure precautions Maintain normothermia CV: No acute issues. HD stable. Continue to monitor Pulm: Tolerating NC. Maintain spo2>90, pao2>60 Continue Brovana, Pulmicort GI: Hb 8.8, s/p total 3u pRBCs, no transfusion in last 2 days Bleeding scan was negative for active bleed CT A/P with PO contrast shoes mild saldivar-colonic mural thickening c/w nonspecific enteritis, possible hepatic cirrhosis, cholelithiasis with mild GB wall thickening Abdominal US shows fatty liver infiltration, cholelithiasis with thickened GB wall, equivocal cholecystitis EGD showed gastritis, small hiatal hernia, mild esophagitis, no stigmata of recent bleed identified Colonoscopy showed several nonbleeding angioectasias and one bleeding angiodysplastic lesion that were electrocauterized, multiple polyps throughout the colon. Patient has been on octreotide drip since colonoscopy yesterday. Patient will need repeat Colonoscopy in 2 months C diff negative. Flagyl as per GI for possible enteritis Total bilirubin elevation resolved. GI following. No CBD dilation on abd US Renal: No acute issues. Mild uremia likely 2/2 GIB resolved Endo: Maintain euglycemia 140-180 ID: Flagyl for possible enteritis as per GI. C diff negative Heme: Hb currently 8.8. EGD showed no acute bleed. C diff negative. Colonoscopy showed one bleeding angiodysplastic lesion that was electrocauterized Bleeding scan was negative for active bleed CT A/P shows possible enteritis Monitor Hb DVT/GI ppx: protonix, CLD, SCDs, PT/OT Dispo: Transfer to med/surg - Date & Time Date: 11/02/16 Time: 09:42 <Greg Johnson - Last Filed: 11/02/16 17:48> CCU Objective - Vital Signs / Intake & Output Vital Signs (Last 4 hours): Vital Signs Pulse Resp BP 11/02/16 16:31 20 11/02/16 16:30 96 H 26 H 11/02/16 16:29 97 H 25 H 11/02/16 16:00 94 H 22 117/63 11/02/16 15:00 97 H 21 11/02/16 14:00 94 H 19 Intake and Output (Last 8hrs): Intake & Output 11/02/16 11/02/16 11/02/16 06:59 14:59 22:59 Intake Total 270 Output Total 204 Balance 66 Weight 100 lb Intake: IV 120 Left Hand 120 Oral 150 Output: Urine 200 Urine, Voided 200 Urine/Stool Mix 4 Other: Voiding Method Bedpan Urinal # Voids Urine, Voided 4 # Bowel Movements 4 Urine, Voided 1 - Medications Active Medications: Active Medications Generic Name Dose Route Start Last Admin Trade Name Freq PRN Reason Stop Dose Admin Arformoterol Tartrate 15 mcg 10/31/16 08:00 11/02/16 09:06 Brovana IH 15 mcg [id number] JUANITA Administration Budesonide 0.5 mg 10/31/16 08:00 11/02/16 09:06 Pulmicort Respules IH 0.5 mg [id number] JUANITA Administration Latanoprost 0 ml 10/30/16 22:00 11/01/16 22:01 Xalatan Opht OU 1 ml HS JUANITA Administration Lorazepam 1 mg 10/29/16 22:01 11/02/16 11:32 Ativan IVP 1 mg Q4 PRN Administration Agitation Protocol Magnesium Oxide 400 mg 11/02/16 10:00 11/02/16 17:13 Mag-Ox PO 11/03/16 18:01 400 mg BID JUANITA Administration Metronidazole 500 mg 10/31/16 14:00 11/02/16 13:31 Flagyl PO 500 mg Q8 JUANITA Administration Protocol Nadolol 20 mg 11/03/16 10:00 Corgard PO DAILY JUANITA Pantoprazole Sodium 40 mg 11/01/16 10:00 11/02/16 09:33 Protonix Inj IVP 40 mg DAILY JUANITA Administration - Patient Studies Lab Studies: Lab Studies 11/02/16 Range/Units 06:00 WBC 14.0 H (4.5-11.0) 10^3/ul RBC 2.90 L (3.5-6.1) 10^6/uL Hgb 8.8 L (14.0-18.0) gm/dL Hct 26.5 L (42.0-52.0) % MCV 91.4 (80.0-105.0) fL MCH 30.3 (25.0-35.0) pg MCHC 33.2 (31.0-37.0) g/dl RDW 17.0 H (11.5-14.5) % Plt Count 202 (120.0-450.0) 10^3/uL MPV 10.2 (7.0-11.0) fl Gran % 73.4 H (50.0-68.0) % Lymph % (Auto) 18.9 L (22.0-35.0) % [place] % (Auto) 5.6 (1.0-6.0) % Eos % (Auto) 2.0 (1.5-5.0) % Baso % (Auto) 0.1 (0.0-3.0) % Gran # 10.23 H (1.4-6.5) Lymph # 2.6 (1.2-3.4) [place] # 0.8 H (0.1-0.6) Eos # 0.3 (0.0-0.7) Baso # 0.02 (0.0-2.0) K/mm3 Sodium 142 (132-148) mmol/L Potassium 3.6 (3.6-5.0) mmol/L Chloride 111 H (98-107) mmol/L Carbon Dioxide 25 (21-33) mmol/L Anion Gap 10 (10-20) BUN 13 (7-21) mg/dL Creatinine 0.7 (0.5-1.4) mg/dL Est GFR ( Amer) > 60 Est GFR (Non-Af Amer) > 60 Random Glucose 102 (70-110) mg/dL Calcium 8.0 L (8.4-10.5) mg/dL Phosphorus 3.0 (2.5-4.5) mg/dL Magnesium 2.0 (1.7-2.2) mg/dL Total Bilirubin 0.8 (0.2-1.3) mg/dL AST 33 (15-59) U/L ALT 28 (7-56) U/L Alkaline Phosphatase 238 H (38-133) U/L Total Protein 5.6 L (5.8-8.3) g/dL Albumin 2.5 L (3.0-4.8) g/dL Globulin 3.1 gm/dL Albumin/Globulin Ratio 0.8 L (1.1-1.8) Laboratory Results - last 24 hr 11/02/16 06:00 WBC 14.0 H RBC 2.90 L Hgb 8.8 L Hct 26.5 L MCV 91.4 MCH 30.3 MCHC 33.2 RDW 17.0 H Plt Count 202 MPV 10.2 Gran % 73.4 H Lymph % (Auto) 18.9 L [place] % (Auto) 5.6 Eos % (Auto) 2.0 Baso % (Auto) 0.1 Gran # 10.23 H Lymph # 2.6 [place] # 0.8 H Eos # 0.3 Baso # 0.02 Sodium 142 Potassium 3.6 Chloride 111 H Carbon Dioxide 25 Anion Gap 10 BUN 13 Creatinine 0.7 Est GFR ( Amer) > 60 Est GFR (Non-Af Amer) > 60 Random Glucose 102 Calcium 8.0 L Phosphorus 3.0 Magnesium 2.0 Total Bilirubin 0.8 AST 33 ALT 28 Alkaline Phosphatase 238 H Total Protein 5.6 L Albumin 2.5 L Globulin 3.1 Albumin/Globulin Ratio 0.8 L Critical Care Progress Note - Nutrition Nutrition: Nutrition Category Date Time Status Liquid Diet [DIET] Diets 11/02/16 Lunch Ordered Addendum Addendum: 11/02/16 17:46 patient was seen, examined and discussed shoulder to shoulder with Dr. Russell at bedside. her note reflects my exam, assessment and plan, except as below. Meds/Labs/ONE reviewed. 70 yo male with LGIB 2/2 to angiodysplasia, s/p colonoscopy and hemostasis. Hb stable, hemodynamically stable, no bleeding, no lactic acidosis. advance diet. ok to downgrade to tele ccm time 40 min
[2016-11-02] MEDS ORDERED: Potassium Chloride 20 mEq ER Tab PO ONE (07:38)
[2016-11-02] MEDS: Budesonide 0.5 mg/2 ml Inhal Susp UD IH SCH ×2 (09:06→20:00)
[2016-11-02] MEDS: Arformoterol 15 mcg/2 ml Inh Sol IH SCH ×2 (09:06→20:00)
[2016-11-02] MEDS: Magnesium Oxide 400 mg Tab UD PO SCH ×2 (11:29→17:13)
--- NOTE | 2016-11-02 14:21 | PN ---
DATE: 11/02/2016 Seen and examined at the bedside earlier today. The patient is status post colonoscopy yesterday, fo und to have some angiodysplasia in the colon and rectum that were BICAP. The patient was started on Sandostatin drip yesterday. No reports of any bleeding per rectum. The patient is reported to be coppola ving bowel movements, but loose. He is tolerating the clear liquid diet. No hemetemesis or other ov ert GI bleed. No nausea, vomiting, or complaints of abdominal pain. VITAL SIGNS: Temperature is 98.7, blood pressure is 129/68, pulse is 102, respirations 18. LABORATORY DATA: WBC is 14.0, H and H is 8.8 and 26.5, platelets are 202. Sodium 142, K is 3.6, BUN is 13, creatinine 0.7, total bilirubin is 0.8, AST 33, ALT is 28, alkaline phosphatase is 238. PHYSICAL EXAMINATION: HEENT: Sclerae are anicteric. NECK: Supple. CARDIAC: S1, S2. LUNGS: Decreased breath sounds, but no rales or wheeze. ABDOMEN: With bowel sounds, soft, nontender. No rebound or guarding. EXTREMITIES: No edema bilaterally. Has bandage around left hip. NEUROLOGIC: The patient is awake and alert. ASSESSMENT: This is a 70-year-old male with history of chronic obstructive pulmonary disease, chroni c alcoholism, and status post recent left hip surgery, came from group home for hematochezia. The patient had EGD and colonoscopy, found to have small hiatal hernia, mild esophagitis and gastritis. No bleeding identified. He also yesterday underwent a colonoscopy, found to have angiectasia and one bleeding, angioplastic lesion in the rectum that was cauterized as well as multiple polyps throughou t the colon, but not removed, as patient was bleeding and had fair prep. The patient had a CT scan o n admission. Looks like patient may have had some enteritis. Stool for Clostridium difficile was ob tained which was negative. History of liver cirrhosis, chronic obstructive pulmonary disease, hypert ension. PLAN: Continue to monitor H and H. Sandostatin drip can be discontinued and the patient will be star yan on nadolol with parameters as ordered. Continue GI prophylaxis. He is on Protonix IV daily. We will also advance his diet to full liquid. If patient tolerates this, we can consider advancing the diet tomorrow to a soft low residual diet. Continue to monitor H and H. The patient is on Flagyl 50 0 p.o. Monitor electrolytes. The patient was seen and case discussed with Dr. Oropeza. Tasha MICHAEL cc: [id number] TT: 11/02/2016 14:20:01 Confirmation # [id number] Dictation # [id number] jeremy
--- NOTE | 2016-11-02 18:45 | PN ---
DATE: 11/02/2016 REFERRING PHYSICIAN: Dr. Ponce SUBJECTIVE: The patient is lying in the bed, head at 45 degree. His brother is bedside. The patien t much more awake, alert, follows simple command. No nausea, no vomiting, no diarrhea, leg pain or l eg swelling. Cough is decreased. OBJECTIVE: GENERAL: No acute distress. VITAL SIGNS: Temp is 98, heart rate is 96, respiratory rate is 20, blood pressure 170/63, pulse ox 9 5% on nasal cannula. HEENT: Moist mucous membrane. No ulcer or oral thrush noted. NECK: Supple. No JVD. LUNGS: Have a fair airflow with few rhonchi. HEART: S1 and S2. ABDOMEN: Soft, nontender. No organomegaly. EXTREMITIES: There is no edema. NEUROLOGIC: Awake, alert, follows simple command. MEDICATIONS: He is on Ativan 1 mg IV q.4 hours p.r.n., Brovana 15 mcg inhaled twice a day, nadolol 2 0 mg daily, Flagyl 500 mg q.8 hours, mag oxide 400 mg twice a day, Protonix 40 mg daily, Pulmicort in haled twice a day. LABORATORY DATA: Shows hemoglobin 8.8, hematocrit 26.5, WBC 14, platelet is 202. Sodium 142, potass ium 3.6, chloride 111, bicarbonate 25, BUN 13, creatinine 0.7, glucose 102, calcium is 8.0, phosphoru s 3.0, magnesium 2.0, AST 33, ALT 28, alk phos is 238, albumin is 2.5. IMPRESSION AND PLAN: Chronic obstructive lung disease, pancreatitis, cirrhotic liver, history of gas troesophageal reflux disease, has a gastrointestinal bleed with some polyps. Spoke to patient's brot her at bedside. All the questions answered. Pulmonary point of view, keep head elevated at 45 degre e. Continue bronchodilator. Aspiration precaution. Once cleared by gastrointestinal, discharge shari nning. Needs followup colonoscopy in couple of months to assure the stability of the polyps. Thank you and we will follow with you. Theodore Atkins MD cc: [id number] TT: 11/02/2016 18:45:16 Confirmation # [id number] Dictation # [id number] sn
--- NOTE | 2016-11-02 21:15 | PN ---
DATE: 11/02/2016 SUBJECTIVE: The patient was seen and examined on the bedside, lying comfortably, moved to the fifth floor. Had 2-3 bowel movements, awake, alert. Follows simple commands. No nausea or vomiting. No swelling of the leg. No fever, no chills, no shortness of breath, no coughing. PHYSICAL EXAMINATION: VITAL SIGNS: Temperature 98, heart rate 96, respiratory rate 20, blood pressure 170/63, and pulse ox imetry 95% on nasal cannula. HEAD: Normocephalic, atraumatic. EYES: PERRLA. Extraocular muscles intact. Conjunctivae pink. Eyelids unremarkable. Nose patent. Mucous membranes moist. NECK: Supple. No carotid bruit, JVD or thyromegaly. CHEST: Bilaterally symmetrical. HEART: S1, S2 positive. LUNGS: Has fair airflow with few rhonchi. ABDOMEN: Soft, nontender. No organomegaly. EXTREMITIES: No edema, no cyanosis. NEUROLOGIC: The patient is awake, alert and follows simple commands. MEDICATIONS: Ativan, Brovana, nadolol, Flagyl, magnesium oxide, Protonix, Pulmicort. LABORATORY DATA: Hemoglobin 8.8, hematocrit 26.5, white blood cells 14, and platelets 202. Sodium 1 42, potassium 3.6, BUN 13, creatinine 0.7, magnesium 2.0, AST 33, ALT 28. ASSESSMENT AND PLAN: The patient is a 70-year-old male with chronic obstructive lung disease, histor y of pancreatitis last admission, chronic liver disease, cirrhosis of the liver, history of gastroeso phageal reflux disease, has gastrointestinal bleeding with some polyps, angiodysplasia, cauterization done by Dr. Oropeza, there was plenty of colonic polyps not removed because of the fear of bleeding . Length of time discussion done with Dr. Oropeza. The patient has history of ethanol abuse, histo ry of delirium tremens, depression, aspiration precautions. Needs colonoscopy. Will be done as outp atient. Will decrease the patient's Ativan. Continue Brovana and nadolol, Flagyl for Clostridium di fficile toxin colitis, magnesium oxide, Protonix for GI prevention, out of bed, physical therapy. We will follow up. Evie Ponce MD cc: [id number] TT: 11/02/2016 21:14:21 Confirmation # [id number] Dictation # [id number] rn
[2016-11-02] MEDS: Latanoprost 2.5 ml Opht Soln OU SCH (22:29)
[2016-11-03] MEDS: Budesonide 0.5 mg/2 ml Inhal Susp UD IH SCH ×2 (09:06→21:06)
[2016-11-03] MEDS: Arformoterol 15 mcg/2 ml Inh Sol IH SCH ×2 (09:06→21:06)
[2016-11-03] MEDS: Magnesium Oxide 400 mg Tab UD PO SCH ×2 (10:19→18:54)
--- NOTE | 2016-11-03 19:33 | PN ---
DATE: 11/03/2016 REFERRING PHYSICIAN: Dr. Ponce SUBJECTIVE: The patient is lying in the bed, head at 45 degrees. No headache, no rhinitis. Cough i s better. No nausea, no vomiting, no diarrhea. No leg pain or leg swelling. OBJECTIVE: GENERAL: No acute distress. VITAL SIGNS: Temperature is 98, heart rate is 97, respiratory rate is 20, blood pressure 134/69, pul se ox 100% on room air. HEENT: Moist mucous membranes. Crowded airway. NECK: Supple. No JVD. LUNGS: Has a fair airflow with a few rhonchi. HEART: S1 and S2. ABDOMEN: Soft, nontender. No organomegaly. EXTREMITIES: There is no edema. NEUROLOGIC: Awake, alert, follows simple commands. MEDICATIONS: He is on Ativan 0.5 mg IV q. 6 hours, also getting Brovana 15 mcg inhaled twice a day, nadolol 20 mg daily, Flagyl 500 mg q. 8 hours, mag oxide 400 mg twice a day, Protonix 40 mg daily, Pu lmicort inhaled twice a day. LABORATORY DATA: Reviewed. No new lab is available since yesterday. MICROBIOLOGY: Stool for C. diff has been negative. IMPRESSION AND PLAN: Chronic obstructive lung disease, pancreatitis, cirrhotic liver, gastroesophage al reflux disease, gastrointestinal bleed, has a colonic polyp, malnutrition. We will continue [facility] hodilator. Keep head elevated at 45 degrees. P.r.n. Ativan. Fall precaution. Gastric prophylaxis. Sequential compression device to lower extremities. Follow up labs in the morning. Thank you and we will follow with you. Theodore Atkins MD cc: [id number] TT: 11/03/2016 19:32:58 Confirmation # [id number] Dictation # [id number] en
--- NOTE | 2016-11-03 19:59 | PN ---
DATE: 11/03/2016 The patient is a 70-year-old male. The patient is seen and examined on the bedside. Encouraged to d o physical therapy. Awake and alert, follows simple commands. No nausea, vomiting, diarrhea. No fe cherelle, no chills, no shortness of breath. PHYSICAL EXAMINATION: VITAL SIGNS: Temperature 98, heart rate 96, respiratory rate 20, blood pressure 170/63, pulse oximet ry 95% on nasal cannula. HEENT: Head normocephalic, atraumatic. Eyes: PERRLA. Extraocular muscles intact. Conjunctivae cl ear. Eyelids unremarkable. Nose patent. Mucous membranes moist. NECK: Supple. No carotid bruit, no JVD, no thyromegaly. CHEST: Bilaterally symmetrical. HEART: S1 and S2 positive. LUNGS: Clear to auscultation. ABDOMEN: Soft. Bowel sounds positive. No organomegaly. EXTREMITIES: No edema, no cyanosis. NEUROLOGIC: The patient is awake, alert, follows simple commands. MEDICATIONS: Ativan, Brovana, nadolol, Flagyl, Protonix, Pulmicort, Xalatan ophthalmiac solution. LABORATORIES: We do not have recent labs today, but I reviewed old labs. ASSESSMENT AND PLAN: The patient is a 70-year-old male with chronic obstructive lung disease, pancre atitis, cirrhosis of the liver, history of gastroesophageal reflux disease, has history of gastrointe stinal bleeding, status post blood transfusion. Continue bronchodilators, aspiration precautions. G etting physical therapy today. History of fracture, status post surgery. We will follow up. Evie Ponce MD cc: [id number] TT: 11/03/2016 19:58:48 Confirmation # [id number] Dictation # [id number] en
[2016-11-03] MEDS: Latanoprost 2.5 ml Opht Soln OU SCH (22:00)
[2016-11-04] MEDS: Arformoterol 15 mcg/2 ml Inh Sol IH SCH (07:34)
[2016-11-04] MEDS: Budesonide 0.5 mg/2 ml Inhal Susp UD IH SCH (07:34)
--- NOTE | 2016-11-04 08:13 | PN ---
DATE: 11/03/2016 The patient was seen and evaluated earlier today. The patient denies any specific complaints, tolerating the diet. On examination, denies any abdominal pain. PHYSICAL EXAMINATION: VITAL SIGNS: Temperature is 98.7, blood pressure 134/69, pulse 97. HEENT: Atraumatic, anicteric. NECK: Supple. HEART: S1, S2 heard. LUNGS: Bilateral air entry present. ABDOMEN: Softly distended. EXTREMITIES: No edema, no cyanosis, no clubbing. LABORATORY DATA: Hemoglobin 8.8, hematocrit 26.5, WBC 14,000, platelets 202. BUN 13, creatinine 0.7. IMPRESSION: This 70-year-old patient status post recent open reduction internal fixation of the hip, admitted with gastrointestinal bleeding. Upper gastrointestinal endoscopy was negative. The patient has a history of cirrhosis of the liver. The patient in the past had portal hypertensive gastropathy and grade I varices. On this endoscopy, this admission it was not obvious. However, colonoscopy revealed multiple colon polyps and also there was oozing, angiodysplasia was noticed, which was cauterized. Multiple angiodysplasia with seen and mucosal changes suggestive of colopathy was seen. They were treated with bipolar coagulation probe treatment. The patient has been started initially on octreotide, which is now changed to nadolol 20 mg daily. The patient also has multiple colon polyps. They were not removed in view of the preparation fair and also the colon was not clean and also patient had treatment for multiple arteriovenous malformations. I discussed with the patient's brother, who is closely taking care of him about the importance of followup in the office to arrange for the repeat colonoscopy scheduled. Thank you very much for allowing us to participate in the care of the patient. Deyanira Oropeza MD cc: [id number] TT: 11/04/2016 08:12:35 Confirmation # [id number] Dictation # [id number] en MTDD
[2016-11-04] MEDS ORDERED: Albuterol-Ipratrop 3 mg / 0.5 (3 ml) UD IH PRN (17:50)
[2016-11-04] MEDS ORDERED: Mometasone 220 mcg/puff-14 puff Inh IH SCH (18:00)
[2016-11-04 18:04] VITALS: RESP 20
--- NOTE | 2016-11-04 18:59 | PN ---
DATE: 11/04/2016 REFERRING PHYSICIAN: Dr. Ponce. SUBJECTIVE: He is lying in the bed, head at 45 degrees. Nursing staff at bedside, getting blood tra nsfusion. No headache, no rhinitis. Cough is better. No nausea, no vomiting, no diarrhea. No leg pain or leg swelling. OBJECTIVE: GENERAL: In no acute distress. VITAL SIGNS: Temperature is 98, heart rate is 90, respiratory rate is 20, blood pressure 105/63, pul se ox 97% on 2 liter nasal cannula. HEENT: Moist mucous membranes. No ulcer or oral thrush noted. NECK: Supple. No JVD. LUNGS: Has a fair airflow with a few rhonchi. HEART: S1 and S2. ABDOMEN: Soft, nontender. No organomegaly. EXTREMITIES: There is no edema. NEUROLOGIC: Awake, alert, follows simple commands. MEDICATIONS: He is on Ativan 0.25 mg IV q.8 hours, Brovana 15 mcg q.12 hours, Nadolol 20 mg daily, F lagyl 500 mg q.8 hours, Protonix 40 mg daily and Pulmicort inhaled twice a day. LABORATORY DATA: Reviewed. No new lab is available. IMPRESSION AND PLAN: Chronic obstructive lung disease, pancreatitis, cirrhotic liver, gastroesophage al reflux disease, gastrointestinal bleed, colonic polyp, malnutrition, being transfused. I spoke to the nursing staff at bedside. Will change IV Ativan, Flagyl and Protonix to p.o. Keep head elevate d at 45 degrees. Bronchodilator. Aspiration precaution. Follow up labs in the morning. If stable, discharge planning. Thank you and will follow with you. Theodore Atkins MD cc: [id number] TT: 11/04/2016 18:58:37 Confirmation # [id number] Dictation # [id number] dn
--- NOTE | 2016-11-04 20:40 | PN ---
DATE: 11/04/2016 SUBJECTIVE: The patient seen and examined at the bedside. Looks comfortable, awake, alert. Discussion was done with him and rehab offered; he refused to go to rehab, he wanted to go home. Are waiting for physical therapy clearance. The patient's hemoglobin was low. He refused blood transfusion and discussion done. Today he agreed to get a blood transfusion. The consent got and blood transfusion was started. No nausea, vomiting, or diarrhea. No hematuria or hematochezia. No headache, no dizziness. PHYSICAL EXAMINATION: VITAL SIGNS: Temperature is 98.3, pulse 90, blood pressure 105/63, respiratory rate 18. HEENT: Head normocephalic, atraumatic. Eyes: PERRLA. Extraocular muscles intact. Conjunctivae pink. Eyelids unremarkable. Nose patent. Mucous membranes moist. NECK: Supple. No carotid bruit, JVD or thyromegaly. CHEST: Bilaterally symmetrical. HEART: S1, S2 positive. LUNGS: Clear to auscultation. ABDOMEN: Soft. Bowel sounds present. No organomegaly. EXTREMITIES: No edema, no cyanosis. NEUROLOGIC: The patient is awake, alert and moving all 4 extremities. No focal deficits. MEDICATIONS: Ativan, nadolol, albuterol, Flagyl, Protonix, and eyedrops. LABORATORY DATA: White blood cells 14.0, hemoglobin 8.8, hematocrit 26.5, platelets 202. Sodium 142, potassium 3.6, BUN 13, creatinine 0.7, calcium 8.0 and phosphorus 238. ASSESSMENT AND PLAN: The patient is a 70-year-old male with leukocytosis, anemia, status post blood transfusion, history of gastrointestinal bleeding, getting more blood transfusion, and hypocalcemia, seen by GI, Dr. Deyanira Oropeza , status post hip fracture, reduction and internal fixation of the hip, gastrointestinal bleeding. Endoscopy was negative. The patient has cirrhosis of the liver due to ethanol abuse, history of esophageal varices, portal hypertension, gastropathy, grade I varices. Colonoscopy revealed multiple colonic polyps, and also there was oozing. Angiodysplasia was a noticed, which was cauterized by Dr. Oropeza. Has multiple colonic polyps, but were not removed because of the danger of bleeding. May need colonoscopy later on. The patient is getting nadolol. Discussion done with the patient. He is getting physical therapy and blood transfusion. Will repeat labs. Will followup. Evie Ponce MD cc: [id number] TT: 11/04/2016 20:40:21 Confirmation # [id number] Dictation # [id number] dn JULIET
--- NOTE | 2016-11-04 23:02 | PN ---
DATE: 11/04/2016 SUBJECTIVE: This patient was seen and evaluated earlier. The patient no further episodes of bleeding per rectum. No melena. Tolerating the diet. The patient is tolerating the liquid diet. PHYSICAL EXAMINATION: VITAL SIGNS: Temperature is 98.2, blood pressure 112/65, pulse 87, respirations 20, O2 saturation 95. HEENT: Atraumatic, anicteric. NECK: Supple. HEART: S1, S2 heard. LUNGS: Bilateral normal vesicular breath sounds. EXTREMITIES: No edema. No cyanosis or clubbing. LABORATORY DATA: The hemoglobin was 8.8 on 11/02. Received a unit of transfusion now. IMPRESSION: This 70-year-old patient admitted with gastrointestinal bleeding. Had upper gastrointestinal endoscopy and it was was negative. He had a history of portal gastropathy and grade 1 esophageal varices which was not very obvious at that time. The patient had a colonoscopy, found to have multiple patchy erythematous areas suggestive of portal gastropathy. There were multiple AVMs including one oozing angioectasia which was treated with argon plasma coagulation. He was also found to have diverticulosis, multiple colonic polyps. They were not removed in view of the history of bleeding, a history of angiodysplasia ablation therapy and preparation was also not fair. The plan was to have an outpatient, colonoscopy in few weeks' time. The octreotide which had been discontinued and started on nadolol, He has been tolerating it. The patient's diet can be advanced to full pureed diet. The patient has poor dentition. Continue to closely follow up his care and suggest further management based on the clinical course. Importance of the colonoscopy was clearly explained to the patient's brother. Followup colonoscopy for polypectomy has been clearly explained to the patient's brother who was with the patient post-procedure. Deyanira Oropeza MD cc: [id number] TT: 11/04/2016 23:01:47 Confirmation # [id number] Dictation # [id number] sn CHUNG
[2016-11-04] MEDS: Latanoprost 2.5 ml Opht Soln OU SCH (23:42)
[2016-11-05] MEDS: Pantoprazole 40 mg EC Tab PO SCH (05:59)
--- NOTE | 2016-11-05 08:26 | PN ---
DATE: 11/02/2016 ADDENDUM This patient was seen and evaluated earlier. This is an addendum to the GI progress report dictated by Tasha Gallo NP. This patient was seen and evaluated earlier today. The patient has been on octreotide, which has been discontinued. No further episodes of bleeding. Abdomen is softly distended. RECOMMENDATIONS: Would recommend now followup of the hemoglobin and hematocrit. The octreotide drip has been discontinued and was started on nadolol 20 mg daily. The patient had multiple polyps in the colon, which were not removed. There was reported colopathy with patchy angiodysplasia, which was treated. The patient would need a repeat colonoscopy for removal of these polyps. Thank you very much for allowing us to participate in the care of the patient. Deyanira Oropeza MD cc: [id number] TT: 11/03/2016 07:17:02 Confirmation # [id number] Dictation # [id number] padmini CHUNG
--- NOTE | 2016-11-05 12:57 | PN ---
DATE: 11/05/2016 Seen and examined at the bedside earlier today. He was out of bed to the Aspen chair. No complaints of nausea, vomiting or abdominal pain. No reports of overt GI bleed. The patient reported to have B M this morning - dark brown, semi-loose BM; no bright red blood. VITAL SIGNS: Temperature is 98.5, blood pressure is 122/63, pulse 88, respirations 20, 94 on room ai r. LABORATORY DATA: Labs are pending for BMP and CBC today, this morning. PHYSICAL EXAMINATION: HEENT: Sclerae anicteric. NECK: Supple. CARDIAC: S1, S2. LUNGS: With decreased breath sounds but with good aeration. No rales or wheeze. ABDOMEN: With bowel sounds, soft, nontender. No rebound or guarding. EXTREMITIES: No edema. NEUROLOGIC: Awake and alert. He is hard of hearing. ASSESSMENT: A 70-year-old male came with gastrointestinal bleed. The patient had an upper endoscopy that was negative for any active bleeding. He does have a history of esophageal varices grade I and portal gastropathy. The patient also underwent colonoscopy and was found to have multiple patchy er ythematous areas suggestive of portal gastropathy. He was also found to have multiple AVMs and 1 wit h oozing angioectasia which was treated with argon plasma coagulation. Found to have diverticulosis and multiple colon polyps. But, in view of the bleeding, fair prep and angiodysplasia ablation, poly ps were not removed. PLAN: Continue the nadolol. Continue diet as tolerated; he is on puree. The patient will need a re peat colonoscopy as polyps were not removed. This has been discussed with his brother multiple probl ems. We will continue to monitor his H and H. Continue p.o. Flagyl. He is on Protonix 40 daily and Corgard. The patient was seen and case discussed with Dr. Oropeza. Tasha Del Rosarioes FERNANDA cc: [id number] TT: 11/05/2016 12:56:54 Confirmation # [id number] Dictation # [id number] mn
--- NOTE | 2016-11-05 18:35 | PN ---
DATE: 11/05/2016 REFERRING PHYSICIAN: Dr. Ponce. SUBJECTIVE: The patient is sitting out of bed to chair, feels much better, decreased cough, decrease d shortness of breath. No nausea, no vomiting or diarrhea. No leg pain or leg swelling. OBJECTIVE: GENERAL: No acute distress. VITAL SIGNS: Temperature is 98, heart rate is 86, respiratory rate is 20, blood pressure 114/58, pul se ox 100% on nasal cannula. HEENT: Moist mucous membranes. Crowded airway. NECK: Supple. No JVD. LUNGS: Has a fair airflow with few rhonchi. HEART: S1 and S2. ABDOMEN: Soft, nontender. No organomegaly. EXTREMITIES: There is no edema. NEUROLOGIC: Awake, alert, follows simple commands. MEDICATIONS: He is on Asmanex inhaler 2 puffs daily, Ativan 0.5 mg p.o. q. 8 hours p.r.n., Corgard 20 mg daily, DuoNeb q. 6 hours p.r.n., Flagyl 500 mg q. 8 hours, Protonix 40 mg daily. LABORATORY DATA: Reviewed, noted. No new lab is available since yesterday. IMPRESSION AND PLAN: Chronic obstructive lung disease, history of pancreatitis, chronic liver diseas e with cirrhosis, gastroesophageal reflux disease, history of GI bleed, colonic polyp, malnutrition. Pulmonary point of view, doing well. Continue bronchodilator. Keep head elevated at 45 degree. Fa ll precaution. GI followup. Needs extensive therapy. High risk for fall. Follow up labs in the mo rning. Thank you and will follow with you. Theodore Atkins MD cc: [id number] TT: 11/05/2016 18:34:55 Confirmation # [id number] Dictation # [id number] jn
[2016-11-05] MEDS: Latanoprost 2.5 ml Opht Soln OU SCH (22:06)
[2016-11-06] MEDS: Pantoprazole 40 mg EC Tab PO SCH (06:35)
[2016-11-06 07:52] VITALS: BP 112/65; PULSE 83; TEMP 98.5; O2SAT 92
--- NOTE | 2016-11-06 09:37 | PN ---
DATE: 11/05/2016 SUBJECTIVE: The patient seen and examined at the bedside on 11/05/2016, got physical therapy, looks better. No cough. No shortness of breath. There is no nausea, vomiting, or diarrhea. No hematuria or hematochezia. No headache, no dizziness. PHYSICAL EXAMINATION: VITAL SIGNS: Temperature 98, heart rate 86, respiratory rate 20, blood pressure 114/58, pulse oximet ry 100% on room air. HEENT: Head normocephalic, atraumatic. Eyes: PERRLA. Extraocular movements intact. Conjunctivae p ink. Eyelids unremarkable. Nose patent. Mucous membranes moist. NECK: Supple. No carotid bruit, JVD or thyromegaly. CHEST: Bilaterally symmetrical. HEART: S1, S2 positive. LUNGS: Clear to auscultation. ABDOMEN: Soft. Bowel sounds positive. No organomegaly. EXTREMITIES: No edema, no cyanosis. NEUROLOGIC: The patient is awake, alert, follows simple commands. MEDICATIONS: Asthmanex, Ativan, Coreg, DuoNeb, Flagyl, Protonix. LABORATORY DATA: We do not have recent labs today, but I reviewed old labs. ASSESSMENT AND PLAN: The patient is a 70-year-old male with chronic obstructive lung disease, histor y of pancreatitis, chronic liver disease with cirrhosis due to drinking, gastroesophageal reflux dise ase, history of gastrointestinal bleeding, status post blood transfusion. Supposed to get blood work up on 11/05/2016, but refused. Colonic polyp, malnutrition, noncompliant, refusing to go to rehab. The patient was sent to [facility] [place] during last admission, but at this time the patient is refusing rehab , he wants to go home. I explained to the patient, about that. 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 Status post upper endoscopy that wa s negative for bleeding, history of esophageal varices grade I, and portal gastropathy. He has multi ple AVMs and 1 with oozing angiectasia which was treated with Argon plasma coagulation by Dr. Sara keyes. Found to have multiple diverticulosis and multiple colon polyps. Because, in the presence of ble eding, and preparation was not fair, polyps were not removed may need another colonoscopy. The patie nt is tolerating food very well. Gastrointestinal and deep vein thrombosis prophylaxis. Continue Fl agyl, Protonix. We will follow up. Evie Ponce MD cc: [id number] TT: 11/06/2016 09:37:29 Confirmation # [id number] Dictation # [id number] an
--- NOTE | 2016-11-06 14:25 | PN ---
DATE: 11/06/2016 SUBJECTIVE: Seen and examined at the bedside earlier today. The patient reports moving bowels. No reports of any melena or bright red blood per rectum. Denies nausea, vomiting, or abdominal pain. T he patient is on pureed diet but, according to dietary, the patient does not like the pureed food. T he patient has poor dentition. VITAL SIGNS: Temperature is 98.5, blood pressure 112/65, pulse 83, respirations 20, 95 on room air. LABORATORY DATA: The patient has no new labs today. PHYSICAL EXAMINATION: HEENT: Sclerae anicteric. NECK: Supple. CARDIAC: S1, S2. LUNGS: With decreased breath sounds, but no rales or wheeze. ABDOMEN: With bowel sounds. Soft, nontender on palpation. No organomegaly. ASSESSMENT: A 70-year-old male status post gastrointestinal bleed. Had endoscopy, negative for any active bleeding. He does have a history of grade I varices in the esophagus and portal gastropathy. On colonoscopy, he was found to have patchy erythematous areas suggestive of portal gastropathy. He had multiple arteriovenous malformations with 1 oozing angioectasia status post argon plasma coagula tion. He also was found to have diverticulosis and colon polyps that were not removed in view of the bleeding and fair prep as well as angiodysplasia ablation. His hemoglobin has remained stable. He has not had any overt gastrointestinal bleed. PLAN: The patient is to be discharged home today. We have discussed on previous times with the brendon ent's brother as well as him that he will need a repeat colonoscopy in at least 2 months' time as the polyps that were found were not removed as explained. Also, patient was given prescription for nado lol with parameters. He is to follow up with his PCP and also he will be given number regarding a GI clinic at [facility] for followup colonoscopy. This was also discussed with the nursing staff. The patient was seen and case discussed with Dr. Oropeza. Tasha Del Rosarioes FERNANDA cc: [id number] TT: 11/06/2016 14:25:12 Confirmation # [id number] Dictation # [id number] mn
--- NOTE | 2016-11-06 21:30 | PN ---
DATE: 11/06/2016 REFERRING PHYSICIAN: Dr. Ponce. SUBJECTIVE: The patient is lying in the bed, comfortable, head is up. No chest pain, no nausea, no vomiting, no diarrhea. No leg pain or leg swelling. OBJECTIVE: GENERAL: No acute distress. VITAL SIGNS: Temperature is 98, heart rate is 83, respiratory rate is 20, blood pressure 112/65, pul se ox 94% on room air. HEENT: Moist mucous membrane. No ulcer or oral thrush noted. NECK: Supple. No JVD. LUNGS: Fair airflow with rhonchi. HEART: S1, S2. ABDOMEN: Soft, nontender. No organomegaly. EXTREMITIES: There is no edema. NEUROLOGIC: Awake, alert, follows simple commands. MEDICATIONS: He is on Asmanex inhalers 2 puffs daily, Ativan 0.5 mg 3 times a day p.r.n., Nadolol 20 mg daily, DuoNeb q. 6 hours, Protonix 40 mg daily, eye drops. LABORATORY DATA: Reviewed. No new lab is available since yesterday. IMPRESSION AND PLAN: Chronic obstructive lung disease, status post pancreatitis, liver cirrhosis, ga stroesophageal reflux disease, history of gastrointestinal bleed, colonic polyp, malnutrition, status post hip fracture requiring surgery. Pulmonary point of view, doing well. Keep head elevated at 45 degrees, aspiration precautions, Fall precautions. Upon discharge, will need GI followup as outpati ent for followup colonoscopy. The patient is urged to stop smoking and stop excessive alcohol use. Will follow with you. Theodore Atkins MD cc: [id number] TT: 11/06/2016 21:30:13 Confirmation # [id number] Dictation # [id number] jeremy
--- NOTE | 2016-11-07 02:14 | PN ---
DATE: 11/06/2016 ADDENDUM: This is an addendum to the GI progress report dictated by Tasha Gallo NP. The patient was seen and evaluated earlier. The patient's brother and also the patient's daughter we re at bedside at the time of examination. The patient is doing well, tolerating the diet. The patie nt is scheduled to be discharged. Both the family members and also patient were clearly informed abo ut the importance of followup for cirrhosis of the liver and also followup colonoscopy in view of the se colon polyps. The daughter also mentioned that the patient still continues to drink. The patient was strictly advised not to have this in view of the cirrhosis of the liver. The patient also was no ncompliant. The importance of compliance of this patient in view of this condition of the cirrhosis of the liver was explained. The risk of bleeding complications explained. Both the patient's brothe r and also daughter all are fully aware of the diagnosis and importance of the followup. The patient was advised to follow up in the GI clinic and also follow up with the primary doctor and the further GI workup recommended. Thank you very much for allowing us to participate in the care of the patient. Deyanira Oropeza MD cc: [id number] TT: 11/07/2016 02:13:28 Confirmation # [id number] Dictation # [id number] padmini
== END 2016-11-06 20:53 | disposition home health service (06) | DRG 378 ==
LOC: ED 18:59 → ERH 21:22 → CCU 10-30 01:32 → 5RNO 11-02 17:49
PROVIDERS: ADMIT Internal Medicine; ATTEND Internal Medicine
PROC: 30233N1 Transfusion of Nonautologous Red Blood Cells into Peripheral Vein, Percutaneous Approach (ICD-10-PCS; 2016-10-29)
PROC: 0DJ08ZZ Inspection of Upper Intestinal Tract, Via Natural or Artificial Opening Endoscopic (ICD-10-PCS; 2016-10-30)
PROC: 0W3P8ZZ Control Bleeding in Gastrointestinal Tract, Via Natural or Artificial Opening Endoscopic (ICD-10-PCS; principal; 2016-11-01 10:00)
DX: K55.21 Angiodysplasia of colon with hemorrhage (principal); K62.6 Ulcer of anus and rectum; R64 Cachexia; K76.6 Portal hypertension; I85.10 Secondary esophageal varices without bleeding; E46 Unspecified protein-calorie malnutrition; D62 Acute posthemorrhagic anemia; Z68.1 Body mass index [BMI] 19.9 or less, adult; K80.10 Calculus of gallbladder with chronic cholecystitis without obstruction; K70.30 Alcoholic cirrhosis of liver without ascites; E83.42 Hypomagnesemia; J44.9 Chronic obstructive pulmonary disease, unspecified; E83.39 Other disorders of phosphorus metabolism; E83.51 Hypocalcemia; K63.5 Polyp of colon; K57.30 Diverticulosis of large intestine without perforation or abscess without bleeding; K52.9 Noninfective gastroenteritis and colitis, unspecified; J45.909 Unspecified asthma, uncomplicated; I10 Essential (primary) hypertension; E78.00 Pure hypercholesterolemia, unspecified; K29.70 Gastritis, unspecified, without bleeding; K44.9 Diaphragmatic hernia without obstruction or gangrene; E87.6 Hypokalemia; K76.0 Fatty (change of) liver, not elsewhere classified; K21.0 Gastro-esophageal reflux disease with esophagitis; K31.89 Other diseases of stomach and duodenum; K64.8 Other hemorrhoids; H91.92 Unspecified hearing loss, left ear; F10.20 Alcohol dependence, uncomplicated; E78.5 Hyperlipidemia, unspecified; F17.210 Nicotine dependence, cigarettes, uncomplicated; Y90.9 Presence of alcohol in blood, level not specified; S72.142D Displaced intertrochanteric fracture of left femur, subsequent encounter for closed fracture with routine healing; W19.XXXD Unspecified fall, subsequent encounter; Z91.19 Patient's noncompliance with other medical treatment and regimen

== ENCOUNTER 2017-01-16 23:19 | Inpatient (IN) | payer MEDICARE, MEDICAID ==
[2017-01-17 01:48] LABS: ADD MANUAL DIFF? NO
--- NOTE | 2017-01-17 02:07 | ED PDOC ---
Arrival/HPI - General Historian: Patient, Family - History of Present Illness Time/Duration: Other (tonight) Symptom Onset: Gradual Symptom Course: Resolved Activities at Onset: Light, Eating Context: Home - General Chief Complaint: Abnormal Skin Integrity Time Seen by Provider: 01/17/17 00:46 - History of Present Illness Narrative History of Present Illness (Text): 01/17/17 01:15 71 year old male, whose past medical history includes alcohol abuse and recent GI bleed, who presented to the Emergency Room brought in by EMS with complaints of bleeding from his mouth while eating tonight. Patient states he called EMS and notes on arrival to his home the bleeding stopped. Patient states as EMS was leaving the bleeding from his mouth recommenced and patient was brought to the ER. pts daughter states blood was coming from nose and mouth and patient was coughing/vomiting blood. There is no bleeding currently and patient denies any mouth/tongue pain, abdominal pain, nausea, vomiting, back pain, or any other complaints. Family report they looked in patient's mouth and did not see lacerations of any kind. (Susan Barillas) Past Medical History - Provider Review Nursing Documentation Reviewed: Yes - Infectious Disease Hx of Infectious Diseases: None - Tetanus Immunization Tetanus Immunization: Unknown - Past Medical History Past Medical History: No Previous - Cardiac Hx Cardiac Disorders: Yes Hx Hypertension: Yes - Pulmonary Hx Chronic Obstructive Pulmonary Disease (COPD): Yes - Neurological Hx Neurological Disorder: No - HEENT Hx HEENT Disorder: Yes Hx Blind: Yes Hx Cataracts: Yes Hx Deafness: Yes Hx Glaucoma: Yes - Renal Hx Renal Disorder: No - Endocrine/Metabolic Hx Endocrine Disorders: No - Hematological/Oncological Hx Blood Transfusions: Yes (10/30/16) Hx Blood Transfusion Reaction: No - Integumentary Hx Dermatological Disorder: No - Musculoskeletal/Rheumatological Hx Musculoskeletal Disorders: Yes Hx Falls: Yes Hx Fractures: Yes Hx Unsteady Gait: Yes - Gastrointestinal Hx Gastrointestinal Disorders: No - Genitourinary/Gynecological Hx Genitourinary Disorders: No - Psychiatric Hx Psychophysiologic Disorder: Yes Hx Depression: Yes Hx Substance Use: No - Past Surgical History Past Surgical History: No Previous - Surgical History Hx Orthopedic Surgery: Yes (LEFT HIP REPAIR) - Anesthesia Hx Anesthesia Reactions: No Hx Malignant Hyperthermia: No - Suicidal Assessment Feels Threatened In Home Enviroment: No Family/Social History - Physician Review Nursing Documentation Reviewed: Yes Family/Social History: No Known Family HX Smoking Status: Heavy Smoker > 10 Cigarettes Daily Hx Alcohol Use: Yes (daily) Hx Substance Use: No Hx Substance Use Treatment: No Allergies/Home Meds Allergies/Adverse Reactions: Allergies No Known Allergies Allergy (Verified 10/29/16 19:07) Home Medications: Home Meds Medication Instructions Recorded Confirmed Advair Disk Unk Dose 03/22/16 Albuterol HFA [Ventolin HFA 90 0.09 mg IH PRN PRN 03/22/16 03/22/16 mcg/actuation (8 g)] Hydroxyzine HCl 25 mg PO HS 03/22/16 03/22/16 Latanoprost 0.005% Opht [XALATAN 1 drop OU ACD 03/22/16 03/22/16 2.5 Ml] Meclizine [Antivert] 12.5 mg PO DAILY 03/22/16 03/22/16 Polyth Glucol Powder PRN PRN 03/22/16 acetaZOLAMIDE [Acetazolamide] 500 mg PO BID 03/22/16 03/22/16 Review of Systems - Physician Review All systems were reviewed & negative as marked: Yes - Review of Systems Constitutional: Normal. absent: Fevers Eyes: Normal ENT: Other (+bleeding from mouth) Respiratory: Normal. absent: SOB, Cough Cardiovascular: Normal. absent: Chest Pain Gastrointestinal: Normal. absent: Abdominal Pain, Diarrhea, Nausea, Vomiting Genitourinary Male: Normal. absent: Dysuria, Frequency, Hematuria, Urinary Output Changes Musculoskeletal: Normal. absent: Back Pain, Neck Pain Skin: Normal. absent: Rash Neurological: Normal. absent: Headache, Dizziness Endocrine: Normal Hemo/Lymphatic: Normal Psychiatric: Normal Physical Exam Vital Signs Reviewed: Yes Temperature: Afebrile Blood Pressure: Normal Pulse: Regular Respiratory Rate: Normal Appearance: Positive for: Well-Appearing, Non-Toxic, Comfortable Pain Distress: None Mental Status: Positive for: Alert and Oriented X 3 - Systems Exam Head: Present: Atraumatic, Normocephalic Pupils: Present: PERRL Extroacular Muscles: Present: EOMI Conjunctiva: Present: Normal Mouth: Present: Moist Mucous Membranes, Normal Lips, Normal Tounge, Other (No active bleeding noted, no evidence of laceration/wound/cut visualized in mouth) . No: Normal Teeth (No teeth) Neck: Present: Normal Range of Motion Respiratory/Chest: Present: Clear to Auscultation, Good Air Exchange. No: Respiratory Distress, Accessory Muscle Use Cardiovascular: Present: Regular Rate and Rhythm, Normal S1, S2. No: Murmurs Abdomen: Present: Normal Bowel Sounds. No: Tenderness, Distention, Peritoneal Signs Back: Present: Normal Inspection Upper Extremity: Present: Normal Inspection. No: Cyanosis, Edema Lower Extremity: Present: Normal Inspection. No: Edema Neurological: Present: GCS=15, CN II-XII Intact, Speech Normal Skin: Present: Warm, Dry, Rashes (Petechial rash to face, lips, tongue, and gums ), Normal Color Psychiatric: Present: Alert, Oriented x 3, Normal Insight, Normal Concentration Medical Decision Making - Lab Interpretations I have reviewed the lab results: Yes ED Course and Treatment: 01/17/17 01:15 Impression: 71 year old male c/o bleeding from his mouth and nose. ? coughing/vomiting blood. pt with hx of GI bleeding, HX of ETOH abuse. Plan: -- CBC, CMP, PT/PTT -- Reassess and disposition Prior Visits: Notes and results from previous visits were reviewed. Progress Notes: 01/17/17 02:36 labs within normal limits. slightly elevated LFTs. no active vomiting/coughing blood in ER. case discussed with dr. brown; will admit observational status for possible upper GI bleed. will consult GI. protonix given IV pt seen and evaluated by dr. akhtar. impression; Upper GI bleed admit observational status to tele (Susan Barillas) 01/17/17 03:52 Reviewed EKG, NSR at 83 bpm. No acute changes. (Noel Akhtar) - Lab Interpretations Lab Results: 01/17/17 01:15 01/17/17 01:15 Lab Results 01/17/17 01:15: WBC 5.3 D, RBC 4.54, Hgb 12.8 L, Hct 38.8 L, MCV 85.5, MCH 28.2 , MCHC 33.0, RDW 17.1 H, Plt Count 152, Gran % 42.0 L, Lymph % (Auto) 37.0 H, Greenlee % (Auto) 13.0 H, Eos % (Auto) 6.9 H, Baso % (Auto) 1.1, Gran # 2.21, Lymph # 1.9, Greenlee # 0.7 H, Eos # 0.4, Baso # 0.06 01/17/17 01:15: Sodium 140, Potassium 4.6, Chloride 106, Carbon Dioxide 25, Anion Gap 14, BUN 13, Creatinine 0.6, Est GFR ( Amer) > 60, Est GFR (Non- Af Amer) > 60, Random Glucose 76, Calcium 9.4, Total Bilirubin 1.1, AST 63 H, ALT 35, Alkaline Phosphatase 315 H, Total Protein 7.8, Albumin 3.6, Globulin 4.2 , Albumin/Globulin Ratio 0.9 L 01/17/17 01:15: PT 12.7 H, INR 1.18 H, APTT 37.6 H - RAD Interpretation Radiology Orders: 01/17/17 02:51 CHEST PORTABLE [RAD] Stat - Medication Orders Current Medication Orders: Discontinued Medications Pantoprazole Sodium (Protonix Inj) 40 mg IVP STAT STA Stop: 01/17/17 02:47 Last Admin: 01/17/17 03:08 Dose: 40 mg - Scribe Statement The provider has reviewed the documentation as recorded by the Scribe - Scribe Statement Lorie Mackay All medical record entries made by the Scribe were at my direction and personally dictated by me. I have reviewed the chart and agree that the record accurately reflects my personal performance of the history, physical exam, medical decision making, and the department course for this patient. I have also personally directed, reviewed, and agree with the discharge instructions and disposition. (Susan Barillas) Disposition/Present on Arrival - Present on Arrival Any Indicators Present on Arrival: Yes History of DVT/PE: No History of Uncontrolled Diabetes: Yes Urinary Catheter: No History of Decub. Ulcer: No History Surgical Site Infection Following: None - Disposition Have Diagnosis and Disposition been Completed?: Yes Disposition Time: 02:52 Patient Plan: Observation - Disposition Diagnosis: Upper GI bleeding Disposition: HOSPITALIZED Patient Problems: Current Active Problems Problem Status Onset Upper GI bleeding Acute Condition: FAIR
[2017-01-17 02:08] LABS: BASO # 0.06 K/mm3 (0.0-2.0); BASO % 1.1 % (0.0-3.0); EOS # 0.4 (0.0-0.7); EOS % 6.9 % (1.5-5.0); GRAN # 2.21 (1.4-6.5); HEMATOCRIT 38.8 % (42.0-52.0); INR 1.18 (0.93-1.08); LYMPH # 1.9 (1.2-3.4); MEAN CELL VOLUME 85.5 fL (80.0-105.0); MEAN CORPUSCULAR HEMOGLOBIN 28.2 pg (25.0-35.0); MONO # 0.7 (0.1-0.6); PARTIAL THROMBOPLASTIN TIME 37.6 Seconds (23.7-30.8); PLATELET COUNT 152 10^3/uL (120.0-450.0); RED CELL DISTRIBUTION WIDTH 17.1 % (11.5-14.5); WHITE BLOOD COUNT 5.3 10^3/ul (4.5-11.0)
[2017-01-17 02:10] LABS: ALB/GLOB RATIO 0.9 (1.1-1.8); ALKALINE PHOSPHATASE 315 U/L (38-133); ALT/SGPT 35 U/L (7-56); AST/SGOT 63 U/L (15-59); BILIRUBIN,TOTAL 1.1 mg/dL (0.2-1.3); BLOOD UREA NITROGEN 13 mg/dL (7-21); CALCIUM 9.4 mg/dL (8.4-10.5); CARBON DIOXIDE 25 mmol/L (21-33); GFR AFRICAN-AMERICAN > 60; GLUCOSE,RANDOM 76 mg/dL (70-110); POTASSIUM 4.6 mmol/L (3.6-5.0); SODIUM 140 mmol/L (132-148); TOTAL PROTEIN 7.8 g/dL (5.8-8.3)
[2017-01-17 02:44] LABS: CHLORIDE 106 mmol/L (98-107)
[2017-01-17 06:37] VITALS: BMI 17.6
[2017-01-17] MEDS ORDERED: Albuterol HFA 90 mcg/actuation (8 g) IH PRN (08:35)
--- NOTE | 2017-01-17 08:54 | RAD ---
HISTORY: bleeding COMPARISON: 10/29/2016 FINDINGS: LUNGS: No active pulmonary disease. PLEURA: No significant pleural effusion identified, no pneumothorax apparent. CARDIOVASCULAR: Normal. OSSEOUS STRUCTURES: No significant abnormalities. VISUALIZED UPPER ABDOMEN: Normal. OTHER FINDINGS: None. IMPRESSION: No active disease.
[2017-01-17] MEDS ORDERED: Albuterol 0.5% Inhal Sol (2.5 mg/0.5 ml) UD IH PRN (09:24)
[2017-01-17] MEDS ORDERED: SALMETEROL IH SCH (10:00)
[2017-01-17] MEDS ORDERED: PRAVASTATIN SODIUM 20 MG PO SCH (10:00)
[2017-01-17] MEDS ORDERED: FLUTICASONE PROPIONATE IH SCH (10:00)
[2017-01-17] MEDS: acetaZOLAMIDE 500 mg SR Cap PO SCH ×2 (10:28→17:10)
[2017-01-17] MEDS: RAMELTEON 8 MG PO SCH (10:28)
[2017-01-17] MEDS ORDERED: Sodium Chloride 0.9% 1,000 ML IV SCH (12:00)
[2017-01-17] MEDS: SALMETEROL IH SCH ×2 (12:30→17:08)
[2017-01-17] MEDS: FLUTICASONE PROPIONATE IH SCH ×2 (12:30→17:08)
--- NOTE | 2017-01-17 12:38 | RAD ---
PROCEDURE: Left Hip and pelvis X-ray Radiographs. HISTORY: left hip pain, h/o orif COMPARISON: None. FINDINGS: BONES: There is a compression screw and deandre in the left hip. There are no acute fractures. Calcifications are seen in the intramedullary space of the distal femur consistent with chronic bony infarcts. The right hip is unremarkable. The pelvis is unremarkable JOINTS: Normal. SOFT TISSUES: Normal. OTHER FINDINGS: None. IMPRESSION: No acute findings
[2017-01-17 12:58] LABS: HEMATOCRIT 37.2 % (42.0-52.0)
--- NOTE | 2017-01-17 14:53 | CON ---
DATE: 01/17/2017 Seen and examined at the bedside earlier this morning. The chart was reviewed. REQUEST FOR CONSULT: GI bleed. HISTORY OF PRESENT ILLNESS: This is a 71-year-old male who has a history of COPD, ETOH and left hip fracture, status post ORIF. He has history of GI bleed in the past. This patient was seen by our se noam back in 10/22/16 when he came in for blood per rectum. The patient was brought to the Emergenc y Room with complaints of bleeding from his mouth while he was eating dinner. Apparently, as the EMS was leaving, the patient was noted to have blood coming from his nose and mouth and also coughing up blood. The patient, since admission, has not had any episodes of hemoptysis or hematemesis. The ale toney states that he has not noticed any GI bleeding since he was admitted back in October. No reports of any melena or bright red blood. It is unsure where the bleeding came from. Nursing staff report ing that the patient bit his tongue. The patient is right now complaining of pain to his left hip. Denies any nausea, vomiting. No abdominal pain. No complaints of any acid reflux, shortness of elroy th or chest pain. PAST MEDICAL HISTORY: He had hypertension, hyperlipidemia, asthma, ETOH. He has stopped drinking si nce his last admission. The patient is hard of hearing, is blind. Has history of COPD. The patient had a colonoscopy and endoscopy back in 10/2016. On colonoscopy he was found to have angiectasia, d iverticulosis, internal hemorrhoids and AVM of the colon and a polyp. Endoscopy was found to have ga stritis and LA grade A esophagitis. PAST SURGICAL HISTORY: Left ORIF. Last endoscopy and colonoscopy was 10/2016. Denies any cardiac o r abdominal surgery. ALLERGIES: No known drug allergies. MEDICATIONS: Reviewed as per OCT. SOCIAL HISTORY: The patient has history of smoking. The patient used to drink liquor every day, abo ut 4 shots, but patient states since his last admission in 10/2016, he has not drank any alcohol. De nies any substance abuse. The patient lives with his daughter. MEDICATIONS: Reviewed as per OCT. ALLERGIES: No known drug allergies. REVIEW OF SYSTEMS: Systems reviewed with positive findings. VITAL SIGNS: Temperature is 98.4. His blood pressure is 98/68, pulse 94, respirations 18, 99 on corbin m air. LABORATORY WORK: WBC is 5.3, H and H is 12.8 and 38.8, platelets are 152. His PT is 12.7, INR is 1. 18, PTT is 37.6. Sodium 140, K 4.6, BUN 13, creatinine is 0.6. Total bilirubin is 1.1, AST 63, ALT 35, alkaline phosphatase is 315. He had a chest x-ray on admission and that showed no active pulmona ry disease, no pleural effusion or pneumothorax. PHYSICAL EXAMINATION: HEENT: Sclerae are anicteric. Oral: There are no lesions or cuts noted on his oral cavity. NECK: Supple. CARDIAC: S1, S2. LUNGS: Decreased breath sounds but clear. ABDOMEN: With bowel sounds, soft, nondistended, no tenderness on palpation. No organomegaly. EXTREMITIES: Positive pedal pulses, no edema. The patient complains of left hip pain. NEUROLOGIC: Awake, alert, and oriented. ASSESSMENT: A 71-year-old male with a past medical history of chronic obstructive pulmonary disease, gastrointestinal bleed, he had esophagitis, colonic angiectasia and AVMs, came with complaints of he moptysis or hematemesis. No further episodes of bleeding. PLAN: Start patient on clear liquid diet. We will continue Protonix. Monitor H and H, which is viet reji. It is actually improved compared to when he was here in October. He remains on nadolol. He does have a history of portal hypertensive gastropathy and will plan for endoscopy. The patient is compl aining of left hip pain. We will request for a left hip x-ray. Thank you for this consult and for allowing us to participate in your patient's care. We will make zoran sher recommendations based upon patient's clinical course. The patient was seen and case discussed with Dr. Oropeza. Tasha Del Rosarioes FERNANDA cc: [id number] TT: 01/17/2017 14:52:20 Confirmation # [id number] Dictation # [id number] jeremy
[2017-01-17] MEDS ORDERED: Latanoprost 2.5 ml Opht Soln OU SCH ×2 (16:30)
[2017-01-17] MEDS ORDERED: Mometasone 220 mcg/puff-14 puff Inh IH SCH (18:00)
--- NOTE | 2017-01-17 23:10 | CARD ---
APPROVED REPORT EKG Measurement Heart [id number] <Conclusion> Normal sinus rhythm Normal ECG
[2017-01-18] MEDS: MethylPREDNISolone 40 mg Vial IVP SCH ×2 (00:01→09:53)
--- NOTE | 2017-01-18 00:19 | CON ---
DATE: 01/17/2017 REFERRING PHYSICIAN: Dr. Ponce. REASON FOR CONSULT: Chronic obstructive lung disease, admitted with gastrointestinal bleed. HISTORY OF PRESENT ILLNESS: This is a 71-year-old gentleman, known history of chronic obstructive skylar ng disease, history of alcohol abuse, history of hip fracture and ORIF in the past. Also has a lower gastrointestinal bleed. Now complaining about some bleeding in the mouth while he was eating. The patient is blind. At the EMS arrival, blood was coming from his nose and the mouth. There was also some blood related to cough. Since admission, he feels a little better. No weakness, hemoptysis sin ce he has been in the hospital. Having cough, sputum production. Still actively smokes and drinks a lcohol. PAST MEDICAL HISTORY: Chronic obstructive lung disease, hypertension, hyperlipidemia, alcohol abuse. He is blind. Has a history of AVM of colon, esophagitis. ALLERGIES: Are none known. SOCIAL HISTORY: He actively smoking, stopped alcohol abuse few months ago. MEDICATIONS: He is on Advair 1 puff twice a day, albuterol-Atrovent nebulizer q. 6 hours p.r.n., Ant ivert 12.5 mg daily, Asmanex twist inhaler daily, Atarax 25 mg at bedtime, nadolol 20 mg daily, Diamo x 500 mg twice a day, Effexor 37.5 mg daily, Lipitor 10 mg daily, gabapentin 300 mg 3 times a day, Pr otonix 40 mg daily, Rozerem 8 mg daily, IV fluid normal saline 70 mL per hour, Zofran on a p.r.n. bas is. REVIEW OF SYSTEMS: Denies any headache. Has some rhinitis, cough, blood-tinged sputum. No vomiting , no hematuria, no diarrhea, no leg pain or leg swelling. PHYSICAL EXAMINATION: GENERAL: Sitting side of the bed, mild cough and shortness of breath. VITAL SIGNS: Temp is 98, heart rate 63, respiratory rate is 20, blood pressure 118/65, pulse ox 99% on nasal cannula. HEENT: Small oral cavity. Crowded airway. NECK: Supple. No JVD. LUNGS: Have bilateral expiratory wheezing and rhonchi. HEART: S1, S2. ABDOMEN: Soft, nontender. No organomegaly. EXTREMITIES: There is no edema. NEUROLOGIC: Awake, alert, follows simple commands. LABORATORY DATA: Shows hemoglobin 12.8, hematocrit 38.8, WBC 5.3, platelet is 152. INR 1.18, PTT is 38. Sodium 140, potassium 4.6, chloride 106, bicarbonate 25, BUN 13, creatinine 0.6, glucose 76, ca lcium 9.4. Total bili 1.1, AST 63, ALT 35, alk phos is 315. Albumin is 3.6. Chest x-ray done today shows no active pulmonary disease. Has a hip x-ray done, which shows the compression screws involve d in the left hip. There are no acute fractures. Calcifications are seen in an intramedullary space s. It consisted of chronic bony infarct. IMPRESSION: Hemoptysis , chronic obstructive lung disease, active smoker, history of pancreati tis, history of cirrhotic liver, gastroesophageal reflux disease, history of gastrointestinal bleed i n the past, colonic polyps, malnutrition, history of hip fracture, blind, high risk for fall. PLAN: Case discussed with nursing staff. Will add inhaled bronchodilator. Gastric prophylaxis. SC D to lower extremity. Most likely blood probably related to his cough and COPD, but patient being se en by GI to ensure there is no variceal or ulcer bleed. Aspiration precaution. Fall precaution. Thank you, and will follow with you. Theodore Atkins MD cc: [id number] TT: 01/18/2017 00:17:52 Confirmation # [id number] Dictation # [id number] dn
[2017-01-18] MEDS ORDERED: Pantoprazole 40 mg EC Tab PO SCH (06:30)
[2017-01-18 07:50] LABS: HEMATOCRIT 39.9 % (42.0-52.0); MEAN CELL VOLUME 84.7 fL (80.0-105.0); MEAN CORPUSCULAR HGB CONC 33.1 g/dl (31.0-37.0); PLATELET COUNT 135 10^3/uL (120.0-450.0); RED CELL DISTRIBUTION WIDTH 16.4 % (11.5-14.5); WHITE BLOOD COUNT 5.8 10^3/ul (4.5-11.0)
[2017-01-18] MEDS: Acetylcysteine 20% Inhal Soln (4ml) IH SCH ×2 (07:50→13:25)
--- NOTE | 2017-01-18 08:30 | CON ---
DATE: 01/17/2017 ADDENDUM This is an addendum to the GI consultation report dictated by Tasha Gallo APN. The patient's previo us GI workup reviewed. The patient has a long history of ETOH. He said last admission, he did not d rink. The patient was found to have only LA grade A esophagitis. Colonoscopy revealed angiectasia a nd diverticulosis and hemorrhoids. The patient found to have some bleeding from the mouth. On exami nation the abdomen soft. There is no tenderness. Would start the patient on a clear liquid diet, cl osely follow up the hemoglobin and hematocrit. Consider upper GI endoscopy in a.m. based on the clin ical course. Thank you very much for allowing us to participate in the care of the patient. The patient has been also on ____, history of portal hypertension. The patient is complaining of ____ pain ____. Deyanira Oropeza MD cc: [id number] TT: 01/17/2017 21:44:06 Confirmation # [id number] Dictation # [id number] angi
[2017-01-18] MEDS: RAMELTEON 8 MG PO SCH (09:52)
[2017-01-18] MEDS: acetaZOLAMIDE 500 mg SR Cap PO SCH ×2 (09:52→17:56)
--- NOTE | 2017-01-18 12:51 | HP ---
The patient was seen and examined on 01/17/2017. CHIEF COMPLAINT: Upper gastrointestinal bleeding. HISTORY OF PRESENT ILLNESS: The patient is a 71-year-old male with history of alcohol abuse, was admitted last time for GI bleeding. Now, he came back with recent GI bleeding who reported to the Emergency Room, brought by EMS, with complaining of bleeding from the mouth while eating last night. According to patient, he was eating fish. After that he started bleeding. EMS noticed that on arrival to his home the bleeding stopped the patient states. As EMS was leaving, he had bleeding from his mouth. Recommended that the patient be brought to the Emergency Room. The patient also states that blood was coming from nose and mouth, and patient was coughing/vomiting blood. Right now there does not look like any bleeding or problem. There is no tongue bite. No tongue pain. No abdominal pain. No nausea, vomiting, or diarrhea. PAST MEDICAL HISTORY: Hypertension, COPD, patient is blind, has cataracts, deafness, history of anemia, status post blood transfusion, fall, fracture, unsteady gait, depression, left hip repair. FAMILY HISTORY: Father and mother, noncontributory. HABITS: Heavy smoking, more than 10 cigarettes per day. Alcohol daily: Yes. Substance abuse: No. ALLERGIES: The patient is not allergic with any medications. HOME MEDICATIONS: Advair, albuterol, hydroxyzine, Antivert, acetazolamide. REVIEW OF SYSTEMS: The patient is seen and examined on the bedside. Seen in the telemetry. Looks comfortable. No more bleeding. No fever, no chills. Absence of shortness of breath. PHYSICAL EXAMINATION: VITAL SIGNS: Temperature 98.3, pulse 63, blood pressure 118/65, respiratory rate 20. HEENT: Head normocephalic, atraumatic. Eyes: PERRLA. Extraocular muscles intact. Conjunctivae are clear. Nose patent. Mucous membranes moist. NECK: Supple. No carotid bruit, JVD or thyromegaly. CHEST: Bilaterally symmetrical. HEART: S1, S2 positive. LUNGS: Clear to auscultation. ABDOMEN: Soft. Bowel sounds present. No organomegaly. EXTREMITIES: No edema, no cyanosis. NEUROLOGIC: The patient is awake, alert, moving all 4 extremities. No focal deficits. LABORATORY DATA: White blood cells 8.3, hemoglobin 12.4, hematocrit 37.2, platelets 152. Sodium 140, potassium 4.6, BUN 13, creatinine 0.6. AST noted ASSESSMENT AND PLAN: The patient is a 71-year-old male with abnormal liver function test, cirrhosis of the liver, anemia, came with gastrointestinal bleeding, history of chronic obstructive lung disease, hypertension, hypercholesterolemia, alcohol abuse, the patient is blind, history of arteriovenous malformation of the colon, esophagitis. Now came with hemoptysis , history of actively smoker, history of pancreatitis, cirrhotic liver, gastroesophageal reflux disease, colonic polyps, malnutrition, history of hip fracture. High risk for fall. Discussion done with the patient and the patient 's nursing staff. Gastric prophylaxis. SCD to lower extremities. Dr. Oropeza is working on that. I hope we will get answer of bleeding and his losing weight . Will follow up. Evie Ponce MD cc: [id number] TT: 01/18/2017 10:04:33 padmini CHUNG
[2017-01-18] MEDS ORDERED: Etomidate 20 mg/10ml Inj IV ONE (13:59)
[2017-01-18] MEDS ORDERED: Propofol 10 mg/ml Inj (20 ML) ONE (13:59)
[2017-01-18] MEDS ORDERED: Sodium Chloride 0.9% 1,000 ML IV SCH (14:45)
[2017-01-18 15:01] VITALS: TEMP 97.5; O2SAT 98
[2017-01-18 15:03] VITALS: PULSE 60; RESP 15
[2017-01-18 15:20] VITALS: BP 129/65
--- NOTE | 2017-01-18 22:03 | PN ---
DATE: 01/18/2017 REFERRING PHYSICIAN: Dr. Ponce. He was seen and examined in the recovery room, status post endoscopy, sleepy, arousable, has some cou gh. No more hemoptysis, no hematemesis, no hematuria, no diarrhea, no leg swelling reported. OBJECTIVE: GENERAL: In no acute distress. VITAL SIGNS: Temp is 98, heart rate is 60, respiratory rate is 15, blood pressure 129/65, pulse ox 9 8% on nasal cannula. HEENT: Moist mucous membrane. Crowded airway. NECK: Supple, no JVD. LUNGS: Scattered rhonchi and wheezing. HEART: S1, S2. ABDOMEN: Soft, nontender. No organomegaly. EXTREMITIES: There is no edema. NEUROLOGIC: Sleepy, arousable. MEDICATIONS: Reviewed and noted. No new changes in medication reported since yesterday. LABORATORY DATA: Shows hemoglobin 13.2, hematocrit 39.9, WBC 5.8, platelet is 135. Blood sugar is 1 22. Stool for occult blood is negative. IMPRESSION AND PLAN: Chronic obstructive lung disease, active smoker, history of pancreatitis, histo ry of cirrhotic liver, gastroesophageal reflux disease, history of colonic polyps, malnutrition, hip ____ fracture, legally blind. Spoke to Dr. Oropeza, has some erosions and esophageal varices, no a ctive bleed noted. Pulmonary point of view, doing okay. Continue bronchodilator. Keep head elevate d at 45 degrees. Gastric prophylaxis. Sequential compression device to lower extremity. I urged pa dawna to stop smoking. Fall precautions. Theodore Atkins MD cc: [id number] TT: 01/18/2017 22:02:45 Confirmation # [id number] Dictation # [id number] jn
--- NOTE | 2017-01-19 16:25 | DS ---
CHIEF COMPLAINT: Upper gastrointestinal bleeding. HISTORY OF PRESENT ILLNESS: The patient is a 71-year-old male with past medical history of alcohol abuse, history of GI bleeding, came back over with the GI bleeding. EMS brought the patient in the hospital. According to patient ate fish, after that he started vomiting. But in the hospital, we do not have any vomiting attack. We admitted the patient, called GI consult with Dr. Oropeza. He did endoscopy and there were ulcers, varicose veins, but according to him, it looks better as compared to the last EGD. Also esophagogastroduodenoscopy shows small hiatal hernia, erosive changes erosions 6 cm, duodenitis. The patient tolerated the food, was discharged home with the family. Follow up as outpatient. PAST MEDICAL HISTORY: Hypertension, COPD, deafness, glaucoma, anemia, history of blood transfusion, fall, fracture, unsteady gait, depression, left hip fracture repair. FAMILY HISTORY: Father and mother noncontributory. HABITS: No smoking, no drugs, but has history of drinking. ALLERGIES: The patient is not allergic to any medications. HOME MEDICATIONS: Reviewed by me. REVIEW OF SYSTEMS: The patient seen and examined on the bedside, looks comfortable. No nausea, vomiting, or diarrhea. No hematuria or hematochezia. No swelling of the leg. No chest pain, palpitation. No headache, no dizziness. He is very happy to go home. PHYSICAL EXAMINATION: VITAL SIGNS: Temperature 97.5, pulse 50, blood pressure 129/65, respiratory rate is 15. HEAD: Normocephalic, atraumatic. EYES: PERRLA. Extraocular movements intact. Conjunctivae clear. Nose patent. Mucous membranes moist. NECK: Supple. No carotid bruit, JVD or thyromegaly. CHEST: Bilaterally symmetrical. HEART: S1, S2 positive. LUNGS: Clear to auscultation. ABDOMEN: Soft. Bowel sounds positive. No organomegaly. EXTREMITIES: No edema, no cyanosis. NEUROLOGIC: The patient is awake, alert, moving all 4 extremities. No focal deficit. MEDICATIONS: White blood cells 5.8, hemoglobin 13.2, hematocrit 31.9, and platelets 135. Sodium 140, potassium 4.6, BUN noted creatinine 0.6, glucose 122. AST 63. ASSESSMENT AND PLAN: The patient, a 71-year-old male, with anemia, hyperglycemia, abnormal liver function test, stool occult negative. The patient went for upper endoscopy today because he came with upper gastrointestinal bleeding, esophagogastroduodenoscopy shows hiatal hernia, esophageal erosions 6 cm, duodenitis, history of ethanol abuse, chronic obstructive lung disease, hypertension, hypercholesterolemia. The patient is blind, history of arteriovenous malformation of colon, history of pancreatitis, cirrhosis of the liver, gastroesophageal reflux disease, noncompliance, chronic polyp, malnutrition, history of degenerative joint disease. Discussion done with the patient's nursing staff. The patient is discharged. Discussion done multiple times with the nurse practitioner and Dr. Oropeza also. After endoscopy, the patient tolerated the food. Discharged home. Medicines as provided to the patient in the room, got from [facility] because the patient will go home late, pharmacy will be closed. Urged to become compliant. Will follow up. Evie Ponce MD cc: [id number] TT: 01/19/2017 16:23:44 jn MTDD
== END 2017-01-18 21:06 | disposition home or self-care (01) | DRG 378 ==
LOC: ED 23:19 → ERH 01-17 03:20 → 2RSO 01-17 04:25 → 3RSO 01-17 17:47 → OBSVTOIN 01-18 00:42
PROVIDERS: ADMIT Internal Medicine; ATTEND Internal Medicine
PROC: 0DJ08ZZ Inspection of Upper Intestinal Tract, Via Natural or Artificial Opening Endoscopic (ICD-10-PCS; principal; 2017-01-18 16:00)
DX: K92.0 Hematemesis (principal); E46 Unspecified protein-calorie malnutrition; K76.6 Portal hypertension; Z68.1 Body mass index [BMI] 19.9 or less, adult; K74.60 Unspecified cirrhosis of liver; J44.9 Chronic obstructive pulmonary disease, unspecified; D64.9 Anemia, unspecified; I10 Essential (primary) hypertension; H91.90 Unspecified hearing loss, unspecified ear; H54.8 Legal blindness, as defined in USA; R26.81 Unsteadiness on feet; H26.9 Unspecified cataract; F32.9 Major depressive disorder, single episode, unspecified; F17.210 Nicotine dependence, cigarettes, uncomplicated; K21.0 Gastro-esophageal reflux disease with esophagitis; E78.00 Pure hypercholesterolemia, unspecified; K29.50 Unspecified chronic gastritis without bleeding; K29.80 Duodenitis without bleeding; E78.5 Hyperlipidemia, unspecified; K44.9 Diaphragmatic hernia without obstruction or gangrene; K55.20 Angiodysplasia of colon without hemorrhage; M19.90 Unspecified osteoarthritis, unspecified site; Z91.19 Patient's noncompliance with other medical treatment and regimen; Z86.010 Personal history of colon polyps

== ENCOUNTER 2017-04-06 20:24 | Inpatient (IN) | payer MEDICARE, MEDICAID ==
--- NOTE | 2017-04-06 21:23 | ED PDOC ---
Arrival/HPI <Castro Giraldo - Last Filed: 04/07/17 00:11> - General Historian: Patient, Family EM Caveat: Acuity of Condition - History of Present Illness Time/Duration: Prior to Arrival Symptom Onset: Sudden Symptom Course: Resolved Activities at Onset: Rest <OUMOU BROTHERS - Last Filed: 04/07/17 06:30> - General Chief Complaint: GI Problem Time Seen by Provider: 04/06/17 20:43 - History of Present Illness Narrative History of Present Illness (Text): 04/06/17 21:20 Patient is a 71 year old male with pmh upper and lower GI bleeds who presents with complaints of hematemesis and bloody diarrhea. Patient states he ate sour cream which possibly was spoiled, starting feel nauseous after and then began vomiting. Patient is blind so was unable to realize there was nita blood in his vomit. Patient states he also having abdominal pain and had diarrhea but was unable to see if his bowel movement was bloody. Patient states that he currently feels normal and no longer had abdominal pain or nausea. As per patient's daughter, she found her father crawling on the bathroom floor covered in blood. She states that there was blood the consistency of jelly all over the floor, after seeing this she called EMS. (OUMOU BROTHERS) Past Medical History - Provider Review Nursing Documentation Reviewed: Yes - Infectious Disease Hx of Infectious Diseases: None - Tetanus Immunization Tetanus Immunization: Unknown - Past Medical History Past Medical History: No Previous - Cardiac Hx Cardiac Disorders: Yes Hx Hypertension: Yes - Pulmonary Hx Respiratory Disorders: Yes Hx Chronic Obstructive Pulmonary Disease (COPD): Yes - Neurological Hx Neurological Disorder: Yes HX Cerebrovascular Accident: Yes (left side as per patient) - HEENT Hx HEENT Disorder: Yes Hx Blind: Yes Hx Cataracts: Yes (both eyes, glaucoma in the left eye) Hx Deafness: Yes Hx Glaucoma: Yes - Renal Hx Renal Disorder: No - Endocrine/Metabolic Hx Diabetes Mellitus Type 2: No (denies) - Hematological/Oncological Hx Blood Transfusions: Yes (10/30/16) Hx Blood Transfusion Reaction: No - Integumentary Hx Dermatological Disorder: No - Musculoskeletal/Rheumatological Hx Musculoskeletal Disorders: Yes (uses cane) Hx Falls: Yes Hx Fractures: Yes Hx Unsteady Gait: Yes - Gastrointestinal Hx Gastrointestinal Disorders: Yes (GI bleed with transfusions) - Genitourinary/Gynecological Hx Genitourinary Disorders: No - Psychiatric Hx Psychophysiologic Disorder: Yes (etoh, smoker) Hx Depression: Yes Hx Substance Use: No - Past Surgical History Past Surgical History: No Previous - Surgical History Hx Orthopedic Surgery: Yes - Anesthesia Hx Anesthesia: Yes Hx Anesthesia Reactions: No Hx Malignant Hyperthermia: No - Suicidal Assessment Feels Threatened In Home Enviroment: No <OUMOU BROTHERS - Last Filed: 04/07/17 06:30> Family/Social History <Castro Giraldo - Last Filed: 04/07/17 00:11> - Physician Review Nursing Documentation Reviewed: Yes Family/Social History: Other Smoking Status: Heavy Smoker > 10 Cigarettes Daily Hx Alcohol Use: Yes Hx Substance Use: No Hx Substance Use Treatment: No <OUMOU BROTHERS - Last Filed: 04/07/17 06:30> Narrative Family History (Free Text): 04/06/17 21:23 non contributory (OUMOU BROTHERS) Allergies/Home Meds <Castro Giraldo - Last Filed: 04/07/17 00:11> <OUMOU BROTHERS - Last Filed: 04/07/17 06:30> Allergies/Adverse Reactions: Allergies No Known Allergies Allergy (Verified 10/29/16 19:07) Home Medications: Home Meds Medication Instructions Recorded Confirmed Unobtainable 04/06/17 04/06/17 Review of Systems - Physician Review All systems were reviewed & negative as marked: Yes - Review of Systems Constitutional: absent: Fatigue Respiratory: absent: SOB Cardiovascular: absent: Chest Pain Gastrointestinal: absent: Abdominal Pain Musculoskeletal: absent: Back Pain Skin: Rash, Other (facial rash; pupular) <OUMOU BROTHERS - Last Filed: 04/07/17 06:30> Physical Exam Temperature: Afebrile Blood Pressure: Normal Pulse: Regular Respiratory Rate: Normal Appearance: Positive for: Well-Appearing, Non-Toxic Pain Distress: None Mental Status: Positive for: Alert and Oriented X 3 - Systems Exam Head: Present: Atraumatic, Normocephalic Mouth: Present: Moist Mucous Membranes Respiratory/Chest: Present: Clear to Auscultation, Good Air Exchange Cardiovascular: Present: Regular Rate and Rhythm, Normal S1, S2 Abdomen: Present: Other (hyperactive bowel sounds). No: Tenderness, Distention Neurological: Present: CN II-XII Intact Skin: Present: Rashes Psychiatric: Present: Alert, Oriented x 3 <OUMOU BROTHERS - Last Filed: 04/07/17 06:30> Vital Signs Temp Pulse Resp BP Pulse Ox 04/06/17 23:47 69 17 118/51 L 100 04/06/17 23:18 97.8 F 68 18 118/51 L 04/06/17 23:14 97.8 F 69 18 107/48 L 04/06/17 22:54 97.7 F 72 17 95/47 L 04/06/17 20:30 97.8 F 67 20 123/58 L Medical Decision Making - Critical Care Critical Care Minutes: 30 minutes - Lab Interpretations I have reviewed the lab results: Yes - RAD Interpretation Director Advertising: ED Physician - EKG Interpretation Interpreted by ED Physician: Yes Type: 12 lead EKG <Castro Giraldo - Last Filed: 04/07/17 00:11> <OUMOU BROTHERS - Last Filed: 04/07/17 06:30> ED Course and Treatment: Impression: Pt seen and evaluated with anesthesiology medical doctor. Pt, whose past medical history includes GI bleed and blindness, presented for nausea, abdominal pain, hematemesis and diarrhea/hematochezia. Aware and agree with HPI, clinical finding, plan, and management. Plan: -- EKG -- CXR -- Labs, blood type and screen, -- Protonix -- Reassess and disposition 04/06/17 23:[address] Lawrence, covering for Dr. Ponce, who is aware and agrees with plan. 04/06/17 23:[address] Villalpando, hairspring staker, present in Emergency department to evaluate pt. Pt will be admitted to ICU for upper GI bleed under Dr. Ponce's service. (Castro Giraldo) 04/06/17 21:35 Assessment 71 year old patient presenting with upper and lower GI bleed Plan -EKG -CBC, CMP results pending -Protonix -CXR (OUMOU BROTHERS) - Critical Care Narrative Critical Care (Text): Management of upper GI hemorrhage (Castro Giraldo) - Lab Interpretations Lab Results: 04/06/17 21:05 04/06/17 21:05 Lab Results 04/06/17 21:05: Blood Type AB POSITIVE, Antibody Screen Negative, Crossmatch See Detail, BBK History Checked Patient has bt 04/06/17 21:05: Sodium 141, Potassium 4.0, Chloride 109 H, Carbon Dioxide 22, Anion Gap 14, BUN 27 H, Creatinine 0.7, Est GFR ( Amer) > 60, Est GFR ( Non-Af Amer) > 60, Random Glucose 114 H, Calcium 8.8, Phosphorus 3.7, Magnesium 2.0, Total Bilirubin 0.6, AST 93 H, ALT 59 H, Alkaline Phosphatase 354 H, Total Protein 6.8, Albumin 3.5, Globulin 3.3, Albumin/Globulin Ratio 1.1 04/06/17 21:05: WBC 11.1 H D, RBC 2.95 L, Hgb 8.1 L, Hct 26.6 L, MCV 90.2, MCH 27.5, MCHC 30.5 L, RDW 16.7 H, Plt Count 204, MPV 10.9, Gran % 59.9, Lymph % ( Auto) 27.1, Green % (Auto) 6.3 H, Eos % (Auto) 5.9 H, Baso % (Auto) 0.8, Gran # 6.62 H, Lymph # 3.0, Green # 0.7 H, Eos # 0.7, Baso # 0.09 04/06/17 21:05: PT 10.9, INR 1.01, APTT 27.1 - RAD Interpretation Radiology Orders: 04/06/17 23:16 CHEST PORTABLE [RAD] Stat - Medication Orders Current Medication Orders: Albumin Human (Albumin Human 25% (12.5 Gm/50 Ml)) 12.5 gm IV Q3H JUANITA Stop: 04/07/17 10:01 Last Admin: 04/07/17 06:05 Dose: 12.5 gm Octreotide Acetate 50 mcg/ (Sodium Chloride) 51 mls @ 102 mls/hr IV Q8 JUANITA PRN Reason: Protocol Last Admin: 04/07/17 05:02 Dose: 102 mls/hr Pantoprazole Sodium (Protonix 40mg Ivpb) 40 mg in 100 mls @ 20 mls/hr IVPB .Q5H JUANITA Last Admin: 04/07/17 05:02 Dose: 20 mls/hr Ceftriaxone Sodium (Rocephin 1 Gram Ivpb) 1 gm in 100 mls @ 100 mls/hr IVPB DAILY JUANITA PRN Reason: Protocol Last Admin: 04/07/17 01:22 Dose: 100 mls/hr Ondansetron HCl (Zofran Inj) 4 mg IVP Q6H PRN PRN Reason: Nausea/Vomiting Discontinued Medications Pantoprazole Sodium (Protonix Inj) 40 mg IVP STAT STA Stop: 04/06/17 21:15 Last Admin: 04/06/17 21:24 Dose: 40 mg Disposition/Present on Arrival <Castro Giraldo - Last Filed: 04/07/17 00:11> - Present on Arrival Any Indicators Present on Arrival: No History of DVT/PE: No History of Uncontrolled Diabetes: No Urinary Catheter: No History of Decub. Ulcer: No History Surgical Site Infection Following: Orthopedic Procedures - Disposition Have Diagnosis and Disposition been Completed?: Yes Disposition Time: 00:00 <OUMOU BROTHERS - Last Filed: 04/07/17 06:30> - Disposition Diagnosis: Gastrointestinal bleeding, lower, Gastrointestinal bleeding, upper Disposition: HOSPITALIZED Patient Problems: Current Active Problems Problem Status Onset Gastrointestinal bleeding, lower Acute Gastrointestinal bleeding, upper Acute Condition: CRITICAL
[2017-04-06 21:44] LABS: BASO # 0.09 K/mm3 (0.0-2.0); BASO % 0.8 % (0.0-3.0); EOS # 0.7 (0.0-0.7); EOS % 5.9 % (1.5-5.0); GRAN # 6.62 (1.4-6.5); GRAN % 59.9 % (50.0-68.0); HEMATOCRIT 26.6 % (42.0-52.0); LYMPH % 27.1 % (22.0-35.0); MEAN CELL VOLUME 90.2 fl (80.0-105.0); MEAN CORPUSCULAR HEMOGLOBIN 27.5 pg (25.0-35.0); MEAN CORPUSCULAR HGB CONC 30.5 g/dl (31.0-37.0); MEAN PLATELET VOLUME 10.9 fl (7.0-11.0); MONO # 0.7 (0.1-0.6); MONO % 6.3 % (1.0-6.0); RED CELL DISTRIBUTION WIDTH 16.7 % (11.5-14.5); WHITE BLOOD COUNT 11.1 10^3/ul (4.5-11.0)
[2017-04-06 21:50] LABS: INR 1.01 (0.93-1.08); PARTIAL THROMBOPLASTIN TIME 27.1 Seconds (23.7-30.8)
[2017-04-06 21:53] LABS: BLOOD UREA NITROGEN 27 mg/dL (7-21); CALCIUM 8.8 mg/dL (8.4-10.5); CARBON DIOXIDE 22 mmol/L (21-33); CHLORIDE 109 mmol/L (98-107); GFR AFRICAN-AMERICAN > 60; GLUCOSE,RANDOM 114 mg/dL (70-110); PHOSPHOROUS 3.7 mg/dL (2.5-4.5); SODIUM 141 mmol/L (132-148)
[2017-04-06 21:54] LABS: ALB/GLOB RATIO 1.1 (1.1-1.8); ALKALINE PHOSPHATASE 354 U/L (38-126); ALT/SGPT 59 U/L (7-56); AST/SGOT 93 U/L (17-59); BILIRUBIN,TOTAL 0.6 mg/dL (0.2-1.3); TOTAL PROTEIN 6.8 g/dL (5.8-8.3)
[2017-04-06] MEDS ORDERED: Sodium Chloride 0.9% 1,000 ML IV STA (22:57)
--- NOTE | 2017-04-07 00:54 | CP.PCM.CON ---
History of Present Illness - History of Present Illness History of Present Illness: The patient is a 71 year old Estonian speaking man with a history of chronic ETOH abuse and liver cirrhosis now presenting with active coffee-ground emesis and melena. He reportedly quit drinking "a few" years ago. He denies any past history of esophageal varices. However, he's had an episode of UGIB in the past due to esophagitis and gastritis. Because his SBP was in the low 80's in the ED , he will be admitted to the ICU for close monitoring. Review of Systems - Review of Systems All systems: reviewed and no additional remarkable complaints except - Constitutional Constitutional: As Per HPI - EENT Eyes: As Per HPI - Cardiovascular Cardiovascular: As Per HPI - Respiratory Respiratory: As Per HPI - Gastrointestinal Gastrointestinal: As Per HPI - Genitourinary Genitourinary: As Per HPI - Neurological Neurological: As Per HPI Past Patient History - Infectious Disease Hx of Infectious Diseases: None - Tetanus Immunizations Tetanus Immunization: Unknown - Past Social History Smoking Status: Heavy Smoker > 10 Cigarettes Daily - CARDIAC Hx Cardiac Disorders: Yes Hx Hypertension: Yes - PULMONARY Hx Respiratory Disorders: Yes Hx Chronic Obstructive Pulmonary Disease (COPD): Yes - NEUROLOGICAL Hx Neurological Disorder: Yes HX Cerebrovascular Accident: Yes (left side as per patient) - HEENT Hx HEENT Problems: Yes Hx Blind: Yes Hx Cataracts: Yes (both eyes, glaucoma in the left eye) Hx Deafness: Yes Hx Glaucoma: Yes - RENAL Hx Chronic Kidney Disease: No - ENDOCRINE/METABOLIC Hx Diabetes Mellitus Type 2: No (denies) - HEMATOLOGICAL/ONCOLOGICAL Hx Blood Transfusions: Yes (10/30/16) Hx Blood Transfusion Reaction: No - INTEGUMENTARY Hx Dermatological Problems: No - MUSCULOSKELETAL/RHEUMATOLOGICAL Hx Musculoskeletal Disorders: Yes (uses cane) Hx Falls: Yes Hx Fractures: Yes Hx Unsteady Gait: Yes - GASTROINTESTINAL Hx Gastrointestinal Disorders: Yes (GI bleed with transfusions) - GENITOURINARY/GYNECOLOGICAL Hx Genitourinary Disorders: No - PSYCHIATRIC Hx Psychophysiologic Disorder: Yes (etoh, smoker) Hx Depression: Yes Hx Substance Use: No - SURGICAL HISTORY Hx Orthopedic Surgery: Yes - ANESTHESIA Hx Anesthesia: Yes Hx Anesthesia Reactions: No Hx Malignant Hyperthermia: No Meds Allergies/Adverse Reactions: Allergies Allergy/AdvReac Type Severity Reaction Status Date / Time No Known Allergies Allergy Verified 10/29/16 19:07 - Medications Medications: Current Medications Albumin Human (Albumin Human 25% (12.5 Gm/50 Ml)) 12.5 gm IV Q3H JUANITA Stop: 04/07/17 10:01 Octreotide Acetate 50 mcg/ (Sodium Chloride) 51 mls @ 102 mls/hr IV Q8 JUANITA PRN Reason: Protocol Pantoprazole Sodium (Protonix 40mg Ivpb) 40 mg in 100 mls @ 20 mls/hr IVPB .Q5H JUANITA Ceftriaxone Sodium (Rocephin 1 Gram Ivpb) 1 gm in 100 mls @ 100 mls/hr IVPB DAILY JUANITA PRN Reason: Protocol Ondansetron HCl (Zofran Inj) 4 mg IVP Q6H PRN PRN Reason: Nausea/Vomiting Physical Exam - Constitutional Appears: Well, No Acute Distress - Head Exam Head Exam: ATRAUMATIC, NORMAL INSPECTION, NORMOCEPHALIC - Eye Exam Eye Exam: Normal appearance Additional comments: Anicteric scleral bilaterally - ENT Exam ENT Exam: Mucous Membranes Dry - Respiratory Exam Respiratory Exam: Clear to Auscultation Bilateral, NORMAL BREATHING PATTERN - Cardiovascular Exam Cardiovascular Exam: REGULAR RHYTHM - GI/Abdominal Exam Additional comments: Soft, non-tender, non-distended; No fluid wave or shifting dullness; - Rectal Exam Rectal Exam: NORMAL INSPECTION - Extremities Exam Extremities exam: Positive for: normal inspection - Neurological Exam Neurological exam: Alert, CN II-XII Intact, Normal Gait, Oriented x3, Reflexes Normal Additional comments: No asterixes Results - Vital Signs Recent Vital Signs: Last Vital Signs Temp 97.8 F 04/06/17 23:18 Pulse 69 04/06/17 23:47 Resp 17 04/06/17 23:47 BP 118/51 L 04/06/17 23:47 Pulse Ox 100 04/06/17 23:47 - Labs Result Diagrams: 04/07/17 04:13 04/07/17 04:13 Assessment & Plan - Assessment and Plan (Free Text) Plan: A/P: The patient is a 71 year old Estonian speaking man with a history of chronic ETOH abuse and liver cirrhosis being admitted to the ICU for active coffee- ground emesis and melena. 1. Upper GI Bleeding (acute): -ddx includes: esophageal varices vs PUD -NPO -IV Albumin for low BP's -GI consult placed for likely EGD -Octreotide and Protonix drips started -prophylactic IV Ceftriaxone 2. History of Chronic ETOH Abuse: -seizure precautions DVT PPx: SCD's
[2017-04-07] MEDS: Pantoprazole 40mg/100ml IVPB 40 MG/100 ML BAG IVPB SCH ×5 (01:22→19:55)
[2017-04-07] MEDS: cefTRIAXone 1 gm 1 GM/100 ML BAG IVPB SCH ×2 (01:22→10:32)
[2017-04-07 02:57] VITALS: BMI 19.5
[2017-04-07] MEDS: Albumin Human 25% (12.5 gm/50 ml) IV SCH ×4 (03:06→10:32)
[2017-04-07 04:20] LABS: HEMATOCRIT 25.2 % (42.0-52.0); MEAN CORPUSCULAR HEMOGLOBIN 28.9 pg (25.0-35.0); MEAN CORPUSCULAR HGB CONC 32.1 g/dl (31.0-37.0); RED CELL DISTRIBUTION WIDTH 15.6 % (11.5-14.5); WHITE BLOOD COUNT 10.5 10^3/ul (4.5-11.0)
[2017-04-07 04:21] LABS: BASO # 0.07 K/mm3 (0.0-2.0); BASO % 0.7 % (0.0-3.0); EOS # 0.3 (0.0-0.7); EOS % 2.8 % (1.5-5.0); GRAN # 6.53 (1.4-6.5); GRAN % 62.3 % (50.0-68.0); LYMPH # 2.8 (1.2-3.4); LYMPH % 26.3 % (22.0-35.0); MEAN PLATELET VOLUME 11.8 fl (7.0-11.0); MONO # 0.8 (0.1-0.6); MONO % 7.9 % (1.0-6.0)
[2017-04-07 04:27] LABS: ALKALINE PHOSPHATASE 284 U/L (38-126); ALT/SGPT 40 U/L (7-56); AST/SGOT 52 U/L (17-59); BLOOD UREA NITROGEN 26 mg/dL (7-21); CALCIUM 8.2 mg/dL (8.4-10.5); CARBON DIOXIDE 18 mmol/L (21-33); CHLORIDE 114 mmol/L (95-110); GFR AFRICAN-AMERICAN > 60; GLUCOSE,RANDOM 72 mg/dL (70-110); MAGNESIUM 1.8 mg/dL (1.7-2.2); PHOSPHOROUS 3.9 mg/dL (2.5-4.5); POTASSIUM 3.8 mmol/L (3.6-5.0); SODIUM 140 mmol/L (132-148); TOTAL PROTEIN 5.8 g/dL (5.8-8.3)
[2017-04-07 04:32] LABS: ALB/GLOB RATIO 0.9 (1.1-1.8)
[2017-04-07] MEDS ORDERED: Sodium Chloride 0.9% 500 ML IV STA (07:27)
--- NOTE | 2017-04-07 08:39 | RAD ---
HISTORY: hematemesis COMPARISON: Chest x-ray performed 01/17/17 TECHNIQUE: Chest, one view. FINDINGS: LUNGS: No focal consolidation. Please note that chest x-ray has limited sensitivity for the detection of pulmonary masses. PLEURA: No significant pleural effusion identified. No definite pneumothorax . CARDIOVASCULAR: Heart size appears within normal limits. Dense atherosclerotic calcifications of the aortic knob. OSSEOUS STRUCTURES: Osseous demineralization. Degenerative changes of the spine and shoulders. VISUALIZED UPPER ABDOMEN: Unremarkable. OTHER FINDINGS: None. IMPRESSION: No focal consolidation, significant pleural effusion, or definite pneumothorax identified.
[2017-04-07] MEDS: Dextrose 5%/0.45% NS 1,000 ML IV SCH (11:24)
--- NOTE | 2017-04-07 11:45 | HP ---
CHIEF COMPLAINT AND HISTORY OF PRESENT ILLNESS: This is a 71-year-old male who is coming into the hospital with history of alcohol abuse and liver cirrhosis. He was having bleeding, coffee ground and melena. He said he had quit drinking. The patient does have a history of esophageal varices. He has a history of esophagitis and gastritis. When he came into the ER, his blood pressure was low in the 80s. The patient says he had no complaints of any abdominal pain or back pain. No dysuria or frequency and no nocturia. He is able to ambulate okay and he has been eating well. REVIEW OF SYSTEMS: All other review of symptoms are within [place] limits except as mentioned. PAST MEDICAL HISTORY: Hypertension, COPD, cataracts, and hearing impairment. PAST SURGICAL HISTORY: Left hip repair. FAMILY HISTORY: Noncontributory. SOCIAL HISTORY: He does smoke, he smokes about half a pack per day. He says he does not drink anymore. He does have a history of alcoholism. He denies substance abuse. PHYSICAL EXAMINATION VITAL SIGNS: Temperature is 98.3, pulse is 74, blood pressure is 88/43, respirations are 19, and O2 saturation is 95%. Height is 5 feet, weight is 99 pounds and BMI is 19.5. GENERAL: The patient lying in bed, uncomfortable, and in no acute distress. HEENT: Atraumatic and normocephalic. Anicteric sclerae. Moist mucosa. [place] conjunctivae. No oral lesions. NECK: No JVD, anterior and posterior adenopathy, thyromegaly, or bruits. CARDIOVASCULAR: S1 and S2 regular. No murmur, rubs, or gallop. LUNGS: Clear to auscultation bilaterally. No wheezes, rales, or rhonchi. ABDOMEN: Bowel sounds are positive. Soft, nontender and nondistended. No hepatosplenomegaly. No rebound and no guarding EXTREMITIES: No cyanosis, clubbing, or edema. NEUROLOGIC: No facial asymmetry. Tongue is midline. No uvula deviation. Power is 5/5 upper extremity and lower extremity. Sensation intact in upper extremity and lower extremity. PSYCHIATRIC: He is awake, alert and oriented x3. No anxiety or depression. He has normal affect. GENITOURINARY: No CVA tenderness. VASCULAR: 2+ pulses in the carotid pulses and pedal pulses. SKIN: No erythema or nodules SPINE: Shows normal curvature. EXTREMITIES: No Cyanosis and clubbing, no edema. LABORATORY DATA: White count of 11.1, hemoglobin of 8.1, and platelet count of 204. INR is 1.01. Chemistry shows a sodium of 141, potassium of 4.0, and creatinine of 0.7. Alkaline phosphatase is 354, albumin is 3.5, magnesium is 2.0, and phosphorus is 3.7. IMAGING DATA: Chest x-rays done and shows no infiltrates. ASSESSMENT: 1. Gastrointestinal bleed, most likely upper. 2. History of alcoholism. 3. Cirrhosis. 4. Anemia. 5. Hearing impairment. PLAN: The patient is going to be admitted to the hospital. He was given albumin. The patient was placed on Protonix and he is given IV fluids. He was started on octreotide drip. The patient is NPO, he is going to be seen by gastrointestinal. He is in the ICU. We will continue to monitor closely. He does not have any signs of active bleeding at this point. Oliver Lawrence MD
--- NOTE | 2017-04-07 15:26 | PN ---
DATE: 04/07/2017 SUBJECTIVE: The patient is resting in bed, is very hard of hearing and blind and comfortable at this time. He has no complaints of abdominal pain, no active bleeding, no vomiting, and no diarrhea. The patient has no shortness of breath. No cough. No wheezing. No chest congestion. He is awake and alert at this time. It is noted that he does have slightly decrease in his blood pressure and we will give normal saline challenge to correct that problem. PHYSICAL EXAMINATION: VITAL SIGNS: Note that his temperature is 98.3, pulse is 74, respirations are 19, and blood pressure is 91/51. SKIN: Warm and dry. HEENT: Head is atraumatic and normocephalic. Eyes; reactive to light. Ear, nose and throat seem to be within normal limits. NECK: Supple. No JVD. No thyroid enlargement. No lymph nodes. HEART: Regular rate and rhythm. Normal S1 and S2. LUNGS: Reveal good breath sounds bilaterally. ABDOMEN: Soft, nontender. Decreased bowel sounds. GENITALIA AND RECTAL: Deferred. MUSCULOSKELETAL: No joint deformities. EXTREMITIES: Reveal no edema. NEUROLOGIC: The patient seems to be grossly intact. LABORATORY DATA: His white count is 10.5, hemoglobin is 8.1, hematocrit 25.2 with platelets of 156,000. PT is 10.9, INR is 1.01 and PTT is 27.1. Sodium is 140, potassium is 3.8, chloride 114, CO2 is 18 with a BUN of 26, creatinine is 0.6 and a glucose of 72. The patient's chest x-ray is pending. IMPRESSION: This patient has upper gastrointestinal bleed with noted anemia. He has a history of EtOH abuse and cirrhosis of the liver. The patient is mildly hypotensive and has a history of cerebrovascular accident, diabetes, hypertension, history of falling, and depression. PLAN: The patient will be getting a bolus of normal saline and then put on a maintenance IV fluids. The patient also is getting octreotide as well as Protonix, and we are following his hemoglobin closely. He has gotten one unit of packed red blood cells and has been typed and crossed. GI has been consulted. The patient is on ceftriaxone as well as Zofran. We will continue to follow closely and treat aggressively along with the other consultants and the primary care doctor. Chang Bates MD [facility] # [phone]
--- NOTE | 2017-04-07 16:19 | CON ---
GASTROENTEROLOGY CONSULTATION DATE: 04/07/2017 This consult is for Dr. Oropeza who I am covering. REASON FOR CONSULTATION: I have been asked to see this 71-year-old male who was brought to the hospital by family for apparent GI bleeding. The patient apparently vomited bright red blood. Had bright red blood per rectum as well as coffee-ground emesis. The patient had one small episode of dark tarry BM early this morning. Routine blood work showed blood count to be low at 8.3 g of hemoglobin. The patient has a history of cirrhosis of the liver secondary to longstanding alcohol use. He has had three hospitalizations over the last 5 months for GI bleeding. He had a upper endoscopy and colonoscopy back in October of 2016 which revealed colonic angioectasia, diverticulosis as well as gastritis. He had another endoscopy in December of 2016 for possible upper GI bleeding which revealed grade B esophagitis, gastritis. No varices were seen at that time. Past medical history is notable for cirrhosis of the liver, COPD, hypertension, blindness cataracts. Past surgical history is notable for left hip ORIF. SOCIAL HISTORY: He smokes half-pack of cigarettes per day. He is a former alcoholic having quit several years ago. REVIEW OF SYSTEMS: A 14-point review of systems is notable for hematemesis, melena or rectal bleeding. PHYSICAL EXAMINATION GENERAL: Well-developed male lying in bed, in no acute distress. VITAL SIGNS: Temperature of 98.5, blood pressure 96/41, heart rate is 71. HEENT: Reveal sclerae to be white. Conjunctivae pale. NECK: Supple. CHEST: Reveal lungs to be clear. HEART: Exam reveals regular rate and rhythm. ABDOMEN: Soft, nontender. EXTREMITIES: Show no edema. LABORATORY DATA: Reveal hemoglobin of 8.1, which is unchanged from a hemoglobin of 8.1 on admission after 1 unit of pack red blood cells. White blood cell count 10.5, platelet count of 156,000. Chemistries reveal AST 50, ALT 40, acquired 114, bicarb of 18, alkaline phosphatase of 284. Serum ammonia is 30. IMPRESSION: A 71-year-old male with recurrent gastrointestinal bleeding and anemia. He has a history of cirrhosis of liver. Last endoscopy in December of 2016 did not show any evidence of varices. RECOMMENDATIONS: 1. We will transfuse another unit of packed red blood cells. 2. We will continue IV Protonix as well as Sandostatin drip. 3. Keep n.p.o. 4. Follow serial hematocrits. 5. We will schedule the patient for a elective endoscopy. Castro Willson MD
[2017-04-07 17:25] LABS: BLOOD UREA NITROGEN 21 mg/dL (7-21); CALCIUM 7.8 mg/dL (8.4-10.5); CARBON DIOXIDE 16 mmol/L (21-33); CHLORIDE 116 mmol/L (98-107); GFR AFRICAN-AMERICAN > 60; GLUCOSE,RANDOM 121 mg/dL (70-110); POTASSIUM 4.2 mmol/L (3.6-5.0); SODIUM 143 mmol/L (132-148)
[2017-04-07 18:00] LABS: HEMATOCRIT 29.4 % (42.0-52.0); MEAN PLATELET VOLUME 10.8 fl (7.0-11.0); RED CELL DISTRIBUTION WIDTH 15.2 % (11.5-14.5); WHITE BLOOD COUNT 8.3 10^3/ul (4.5-11.0)
[2017-04-08] MEDS: Pantoprazole 40mg/100ml IVPB 40 MG/100 ML BAG IVPB SCH ×2 (01:00→06:05)
[2017-04-08] MEDS: Dextrose 5%/0.45% NS 1,000 ML IV SCH (06:12)
--- NOTE | 2017-04-08 07:22 | CARD ---
APPROVED REPORT EKG Measurement Heart [id number] <Conclusion> Normal sinus rhythm Normal ECG
--- NOTE | 2017-04-08 07:54 | CP.CCUPN ---
CCU Subjective - Physician Review Events Since Last Encounter (Free Text): 04/08/17 07:53 No more episodes of active bleeding, melena per nursing over 24H Subjective (Free Text): 04/08/17 07:54 Critical care progress note for Dr. Priyanka Juárez, PGY-1 Pt S & E at bedside. Pt reports no more bleeding, no pain, only complaint is dry mouth- asking for something to drink. Critical Care Time Spent (in minutes): 35 CCU Objective - Vital Signs / Intake & Output Vital Signs (Last 4 hours): Vital Signs Temp Pulse Resp BP Pulse Ox 04/08/17 07:00 67 17 95 04/08/17 06:08 77 22 124/54 L 93 L 04/08/17 06:00 98.9 F 68 18 95 04/08/17 05:00 83 26 H 94 L 04/08/17 04:04 79 31 H 04/08/17 04:00 78 111/49 L 93 L Intake and Output (Last 8hrs): Intake & Output 04/07/17 04/08/17 04/08/17 22:59 06:59 14:59 Intake Total 1140 960 Output Total 600 300 Balance 540 660 Intake: IV 1090 960 Left Forearm 1090 0 Right upper Arm 960 Oral 0 0 Blood Product 0 Red Blood Cells Cpd As1 0 Lr Unit [id number] Other 50 Red Blood Cells Cpd As1 50 Lr Unit [id number] Output: Urine 600 300 Urine, Voided 600 300 Stool 0 Other: Voiding Method Urinal # Voids Urine, Voided 2 # Bowel Movements 0 0 - Physical Exam Head: Positive for: Atraumatic, Normocephalic Pupils: Positive for: Other (R pupil cloudy) Extroacular Muscles: Positive for: EOMI Conjunctiva: Positive for: Normal Ears: Positive for: Normal Mouth: Positive for: Moist Mucous Membranes Neck: Positive for: Normal Range of Motion Respiratory/Chest: Positive for: Clear to Auscultation, Good Air Exchange Cardiovascular: Positive for: Regular Rate and Rhythm, Normal S1, S2 Abdomen: Positive for: Normal Bowel Sounds. Negative for: Tenderness, Distention, Peritoneal Signs Upper Extremity: Positive for: Normal Inspection, NORMAL PULSES Lower Extremity: Positive for: Normal Inspection. Negative for: Edema Neurological: Positive for: CN II-XII Intact, Speech Normal Skin: Positive for: Rashes Psychiatric: Positive for: Alert, Oriented x 3, Normal Insight, Normal Concentration Other physical findings (Free Text): hard of hearing, impaired vision - Medications Active Medications: Active Medications Generic Name Dose Route Start Last Admin Trade Name Freq PRN Reason Stop Dose Admin Ceftriaxone Sodium 1 gm in 100 mls @ 100 mls/hr 04/07/17 00:50 04/07/17 10:32 Rocephin 1 Gram Ivpb IVPB 100 mls/hr DAILY JUANITA Administration Protocol Dextrose/Sodium Chloride 1,000 mls @ 50 mls/hr 04/07/17 11:30 04/08/17 06:12 Dextrose 5%/0.45% Ns 1000 Ml IV 50 mls/hr .Q20H JUANITA Administration Ondansetron HCl 4 mg 04/07/17 00:43 Zofran Inj IVP Q6H PRN Nausea/Vomiting Pantoprazole Sodium 40 mg 04/08/17 16:00 Protonix Ec Tab PO 0600,1600 JUANITA - Patient Studies Lab Studies: Lab Studies 04/07/17 04/07/17 Range/Units 16:50 16:50 WBC 8.3 D (4.5-11.0) 10^3/ul RBC 3.34 L (3.5-6.1) 10^6/uL Hgb 9.7 L (14.0-18.0) g/dL Hct 29.4 L (42.0-52.0) % MCV 88.0 (80.0-105.0) fl MCH 29.0 (25.0-35.0) pg MCHC 33.0 (31.0-37.0) g/dl RDW 15.2 H (11.5-14.5) % Plt Count 118 L (120.0-450.0) 10^3/uL MPV 10.8 (7.0-11.0) fl Sodium 143 (132-148) mmol/L Potassium 4.2 (3.6-5.0) mmol/L Chloride 116 H (98-107) mmol/L Carbon Dioxide 16 L (21-33) mmol/L Anion Gap 15 (10-20) BUN 21 (7-21) mg/dL Creatinine 0.7 (0.5-1.4) mg/dL Est GFR ( Amer) > 60 Est GFR (Non-Af Amer) > 60 Random Glucose 121 H (70-110) mg/dL Calcium 7.8 L (8.4-10.5) mg/dL Laboratory Results - last 24 hr 04/07/17 04/07/17 16:50 16:50 WBC 8.3 D RBC 3.34 L Hgb 9.7 L Hct 29.4 L MCV 88.0 MCH 29.0 MCHC 33.0 RDW 15.2 H Plt Count 118 L MPV 10.8 Sodium 143 Potassium 4.2 Chloride 116 H Carbon Dioxide 16 L Anion Gap 15 BUN 21 Creatinine 0.7 Est GFR ( Amer) > 60 Est GFR (Non-Af Amer) > 60 Random Glucose 121 H Calcium 7.8 L Review of Systems - Review of Systems All systems: reviewed and no additional remarkable complaints except - Constitutional Constitutional: absent: Fever, Chills - EENT Eyes: Other (Blind) Ears: Decreased Hearing (Only hears through Right ear) Nose/Mouth/Throat: Dry Mouth - Cardiovascular Cardiovascular: absent: Chest Pain - Respiratory Respiratory: UNREMARKABLE - Gastrointestinal Gastrointestinal: UNREMARKABLE. absent: Abdominal Pain, Hematochezia, Melena, Nausea, Vomiting - Genitourinary Genitourinary: absent: Hematuria - Musculoskeletal Musculoskeletal: UNREMARKABLE - Neurological Neurological: UNREMARKABLE - Psychiatric Psychiatric: UNREMARKABLE Critical Care Progress Note - Extremities/Vascular Does the Patient have a Central Venous Catheter?: No Does the Patient need a Central Venous Catheter?: No Does the Patient have a Lynn Catheter?: No Does the Patient need a Lynn Catheter?: No - Prophylaxis GI Prophylaxis GI: PPI - Prophylaxis DVT Prophylaxis DVT: Not Indicated - Nutrition Nutrition: Nutrition Category Date Time Status Liquid Diet [DIET] Diets 04/08/17 Breakfast Ordered Assessment/Plan - Assessment and Plan (Free Text) Assessment: 71M admitted to ICU for active GI bleeding- now resolved, stable, ready for transfer to floor for continued medical mgmt. Plan: Neuro AOx3 Blind Hard of hearing- only able to hear out of R ear At baseline CVS Mild Hypotension Monitor Pulm O2 Sat 94% on RA Target SaO2 >94% O2 PRN GI Transaminitis- resolved AST 52 fom 93 ALT 40 from 59 ALP 284 from 354- down trending No Melena/active bleeding D/c'd Ocreotide drip D/c'd Protonix drip Started PO protonix Zofran PRN Started on CLD GI following Urinating freely Nephro Electrolyes WNL BUN 21 from 26 Cr 0.7 from 0.6 D5, 1/2NS@50 I/O's Heme/Onc No active bleeding over last 24H Hgb 9.7 from 8.1 Hct 29.4 from 25.3 PT 10.9 INR 1.01 PTT 27.1 Monitor for bleeding, avoid anticoagulation ID Afebrile No leukocytosis Monitor Endo No endocrine dysfunction GI/DVT ppx Protonix SCDs Contraindications to VTE ppx 2/2 recent bleed Dispo Stable Transfer to Med-Surg PT/OT DW ICU attending Marquita, PGY-1 - Date & Time Date: 04/08/17 Time: 07:00
--- NOTE | 2017-04-08 07:59 | PN ---
DATE: 04/08/2017 SUBJECTIVE: The patient has no complaints of any chest pain. No shortness of breath. No headaches. PHYSICAL EXAMINATION VITAL SIGNS: Temperature is 99.1, pulse is 75, blood pressure is 109/47, respirations 16. GENERAL: The patient is lying in bed, flat, comfortable. HEENT: No oral lesion. Anicteric sclerae. Moist mucosa. NECK: No JVD, adenopathy, or thyromegaly. CARDIOVASCULAR: S1 and S2, regular. No murmurs, rubs, or gallops. LUNGS: Clear to auscultation bilaterally. No wheeze, rales, or rhonchi. ABDOMEN: Bowel sounds are positive, soft, nontender and nondistended. EXTREMITIES: No cyanosis, clubbing or edema. LABORATORY DATA: Creatinine 0.7, bicarb of 16. The patient has refused a.m. labs. ASSESSMENT: 1. Gastrointestinal bleed. 2. Cirrhosis. 3. Anemia. 4. Hearing impairment. 5. Visual impairment. 6. History of alcoholism. PLAN: The patient is feeling comfortable. He is on IV Protonix and Sandostatin. He is n.p.o. He is on IV fluids. He is currently n.p.o. Put him on a clear liquid diet. Repeat his CBC if he allows. Oliver Lawrence MD
--- NOTE | 2017-04-08 08:25 | CP.CCUPN ---
CCU Subjective - Physician Review Events Since Last Encounter (Free Text): 04/08/17 08:19 NONE. No clinical evidence of melena, hematemesis in the last 24h Subjective (Free Text): 04/08/17 08:19 Pt reports to be feeling well, denies fever, chills, chest pain, sob, melena, abd pain, n/v. CCU Objective - Vital Signs / Intake & Output Vital Signs (Last 4 hours): Vital Signs Temp Pulse Resp BP Pulse Ox 04/08/17 07:00 67 17 95 04/08/17 06:08 77 22 124/54 L 93 L 04/08/17 06:00 98.9 F 68 18 95 04/08/17 05:00 83 26 H 94 L Intake and Output (Last 8hrs): Intake & Output 04/07/17 04/08/17 04/08/17 22:59 06:59 14:59 Intake Total 1140 960 Output Total 600 300 Balance 540 660 Intake: IV 1090 960 Left Forearm 1090 0 Right upper Arm 960 Oral 0 0 Blood Product 0 Red Blood Cells Cpd As1 0 Lr Unit [id number] Other 50 Red Blood Cells Cpd As1 50 Lr Unit [id number] Output: Urine 600 300 Urine, Voided 600 300 Stool 0 Other: Voiding Method Urinal # Voids Urine, Voided 2 # Bowel Movements 0 0 - Physical Exam Head: Positive for: Atraumatic, Normocephalic Pupils: Positive for: Other (R pupil cloudy) Extroacular Muscles: Positive for: EOMI Conjunctiva: Positive for: Normal Ears: Positive for: Normal Mouth: Positive for: Moist Mucous Membranes Neck: Positive for: Normal Range of Motion Respiratory/Chest: Positive for: Clear to Auscultation, Good Air Exchange Cardiovascular: Positive for: Regular Rate and Rhythm, Normal S1, S2 Abdomen: Positive for: Normal Bowel Sounds. Negative for: Tenderness, Distention, Peritoneal Signs Upper Extremity: Positive for: Normal Inspection, NORMAL PULSES Lower Extremity: Positive for: Normal Inspection. Negative for: Edema Neurological: Positive for: CN II-XII Intact, Speech Normal Skin: Positive for: Rashes Psychiatric: Positive for: Alert, Normal Insight, Normal Concentration - Medications Active Medications: Active Medications Generic Name Dose Route Start Last Admin Trade Name Freq PRN Reason Stop Dose Admin Ceftriaxone Sodium 1 gm in 100 mls @ 100 mls/hr 04/07/17 00:50 04/07/17 10:32 Rocephin 1 Gram Ivpb IVPB 100 mls/hr DAILY JUANITA Administration Protocol Dextrose/Sodium Chloride 1,000 mls @ 50 mls/hr 04/07/17 11:30 04/08/17 06:12 Dextrose 5%/0.45% Ns 1000 Ml IV 50 mls/hr .Q20H JUANITA Administration Ondansetron HCl 4 mg 04/07/17 00:43 Zofran Inj IVP Q6H PRN Nausea/Vomiting Pantoprazole Sodium 40 mg 04/08/17 16:00 Protonix Ec Tab PO 0600,1600 JUANITA - Patient Studies Lab Studies: Lab Studies 04/07/17 04/07/17 Range/Units 16:50 16:50 WBC 8.3 D (4.5-11.0) 10^3/ul RBC 3.34 L (3.5-6.1) 10^6/uL Hgb 9.7 L (14.0-18.0) g/dL Hct 29.4 L (42.0-52.0) % MCV 88.0 (80.0-105.0) fl MCH 29.0 (25.0-35.0) pg MCHC 33.0 (31.0-37.0) g/dl RDW 15.2 H (11.5-14.5) % Plt Count 118 L (120.0-450.0) 10^3/uL MPV 10.8 (7.0-11.0) fl Sodium 143 (132-148) mmol/L Potassium 4.2 (3.6-5.0) mmol/L Chloride 116 H (98-107) mmol/L Carbon Dioxide 16 L (21-33) mmol/L Anion Gap 15 (10-20) BUN 21 (7-21) mg/dL Creatinine 0.7 (0.5-1.4) mg/dL Est GFR ( Amer) > 60 Est GFR (Non-Af Amer) > 60 Random Glucose 121 H (70-110) mg/dL Calcium 7.8 L (8.4-10.5) mg/dL Laboratory Results - last 24 hr 04/07/17 04/07/17 16:50 16:50 WBC 8.3 D RBC 3.34 L Hgb 9.7 L Hct 29.4 L MCV 88.0 MCH 29.0 MCHC 33.0 RDW 15.2 H Plt Count 118 L MPV 10.8 Sodium 143 Potassium 4.2 Chloride 116 H Carbon Dioxide 16 L Anion Gap 15 BUN 21 Creatinine 0.7 Est GFR ( Amer) > 60 Est GFR (Non-Af Amer) > 60 Random Glucose 121 H Calcium 7.8 L Review of Systems - Review of Systems Review of Systems: negative unless otherwise stated Critical Care Progress Note - Nutrition Nutrition: Nutrition Category Date Time Status Liquid Diet [DIET] Diets 04/08/17 Breakfast Ordered Assessment/Plan - Assessment and Plan (Free Text) Assessment: 71yo male with hx of long standing EtOH abuse, a/w Upper GIB GIB, likely upper EtOH abuse Anemia - currently afebrile, HD stable, comfortable - no clinical evidence of melena, or hematemesis while in the MICU - HH stable - BP stable - GI following Recommend: - advance diet as tolerated - DC Octreotide - Switch Protnix IV to Protonix PO BID - monitor HH - Avoid all anti-platelet, Heparin products - follow up GI - DVT ppx, SCDs - transfer to general medical floor
[2017-04-08] MEDS: guaiFENesin 100 mg/5 ml Syrup UD PO PRN ×2 (09:45→13:38)
[2017-04-08] MEDS: cefTRIAXone 1 gm 1 GM/100 ML BAG IVPB SCH (10:15)
[2017-04-08] MEDS ORDERED: Pantoprazole 40 mg EC Tab PO SCH (16:00)
[2017-04-09 03:00] LABS: BASO # 0.05 K/mm3 (0.0-2.0); BASO % 0.6 % (0.0-3.0); EOS # 0.5 (0.0-0.7); EOS % 5.9 % (1.5-5.0); GRAN # 4.96 (1.4-6.5); GRAN % 63.5 % (50.0-68.0); HEMATOCRIT 26.1 % (42.0-52.0); LYMPH # 1.8 (1.2-3.4); LYMPH % 22.8 % (22.0-35.0); MEAN CELL VOLUME 87.9 fl (80.0-105.0); MEAN PLATELET VOLUME 10.2 fl (7.0-11.0); MONO # 0.6 (0.1-0.6); MONO % 7.2 % (1.0-6.0); RED CELL DISTRIBUTION WIDTH 15.8 % (11.5-14.5); WHITE BLOOD COUNT 7.8 10^3/ul (4.5-11.0)
[2017-04-09 03:15] LABS: ALKALINE PHOSPHATASE 201 U/L (38-126); ALT/SGPT 37 U/L (7-56); AST/SGOT 47 U/L (17-59); BILIRUBIN,TOTAL 0.9 mg/dL (0.2-1.3); BLOOD UREA NITROGEN 11 mg/dL (7-21); CALCIUM 7.8 mg/dL (8.4-10.5); CARBON DIOXIDE 20 mmol/L (21-33); CHLORIDE 113 mmol/L (98-107); GFR AFRICAN-AMERICAN > 60; GLUCOSE,RANDOM 106 mg/dL (70-110); MAGNESIUM 1.9 mg/dL (1.7-2.2); POTASSIUM 3.5 mmol/L (3.6-5.0); SODIUM 140 mmol/L (132-148); TOTAL PROTEIN 5.3 g/dL (5.8-8.3)
[2017-04-09] MEDS ORDERED: Sodium Chloride 0.9% 500 ML IV STA (03:52)
--- NOTE | 2017-04-09 04:15 | CP.PCM.PN ---
Subjective - Date & Time of Evaluation Date of Evaluation: 04/09/17 Time of Evaluation: 03:24 - Subjective Subjective: Pt seen stat for rectal bleed. According to his RN he had 2 episodes of rectal bleeding which included bright red blood and large clots. Pt also had a little blood stained sputum just now. He denies any c/o abdominal pain,nausea or vomiting. His VS are currently stable. PMH: GI bleed,Cirrhosis,history of ETOH abuse. Objective - Vital Signs/Intake and Output Vital Signs (last 24 hours): Temp Pulse Resp BP Pulse Ox 98.4 F 73 20 112/58 L 97 04/09/17 02:56 04/09/17 02:56 04/09/17 02:56 04/09/17 02:56 04/09/17 02:56 Intake and Output: 04/08/17 04/09/17 18:59 06:59 Intake Total 660 Output Total 600 Balance 60 - Medications Medications: Current Medications Guaifenesin (Robitussin) 100 mg PO Q4H PRN PRN Reason: Cough Last Admin: 04/08/17 13:38 Dose: 100 mg Ceftriaxone Sodium (Rocephin 1 Gram Ivpb) 1 gm in 100 mls @ 100 mls/hr IVPB DAILY JUANITA PRN Reason: Protocol Last Admin: 04/08/17 10:15 Dose: 100 mls/hr Dextrose/Sodium Chloride (Dextrose 5%/0.45% Ns 1000 Ml) 1,000 mls @ 50 mls/hr IV .Q20H [facility] Last Admin: 04/08/17 06:12 Dose: 50 mls/hr Ondansetron HCl (Zofran Inj) 4 mg IVP Q6H PRN PRN Reason: Nausea/Vomiting Pantoprazole Sodium (Protonix Ec Tab) 40 mg PO 0600,1600 [facility] Last Admin: 04/08/17 17:26 Dose: 40 mg - Labs Labs: 04/09/17 02:50 04/09/17 02:50 PT 10.9 Seconds (9.9-11.8) 04/06/17 21:05 INR 1.01 (0.93-1.08) 04/06/17 21:05 APTT 27.1 Seconds (23.7-30.8) 04/06/17 21:05 - Constitutional Appears: No Acute Distress - Head Exam Head Exam: ATRAUMATIC, NORMAL INSPECTION, NORMOCEPHALIC - ENT Exam ENT Exam: Mucous Membranes Moist - Neck Exam Neck Exam: Normal Inspection - Respiratory Exam Respiratory Exam: Clear to Ausculation Bilateral - Cardiovascular Exam Cardiovascular Exam: REGULAR RHYTHM - GI/Abdominal Exam GI & Abdominal Exam: Soft, Normal Bowel Sounds. absent: Tenderness - Rectal Exam Rectal Exam: Bloody Stool - Extremities Exam Extremities Exam: Normal Inspection - Neurological Exam Neurological Exam: Alert, Awake (hard of hearing and blind) - Psychiatric Exam Psychiatric exam: Flat Affect - Skin Skin Exam: Dry, Warm Assessment and Plan - Assessment and Plan (Free Text) Assessment: Rectal bleed Anemia Plan: Labs ordered for the AM ( CBC,CMP,Phos/mag leve)were done stat. Hemoglobin has dropped from 9.7 yesterday to 8.6 today. Consult requested with Dr Villalpando. pt was seen by him For now,pt will remain on this floor.Will give him bolus of 500 cc NSand repeat CBC in 4 hours. If hemoglobin drops or if pt has recurrent bleed, he will see pt again. Will keep pt NPO for now.
[2017-04-09] MEDS: Sodium Chloride 0.9% 1,000 ML IV SCH ×2 (05:00→23:47)
--- NOTE | 2017-04-09 05:03 | CP.PCM.CON ---
<Betsy Vitale - Last Filed: 04/09/17 06:20> History of Present Illness - History of Present Illness History of Present Illness: PGY-2 ICU consult note 71 yo male with PMH of chronic ETOH abuse, liver cirrhosis, HTN, COPD, hearing imparied, cataract, ICU consulted for bright red blood and melena per rectum. Patient was initally admitted to the hospital for coffee-ground emesis and melena. He was seen by GI and was scheduled for elective EGD. However per nurse patient had 2 episodes of bright red blood with clots mix with his stool. Patient also had episode of darker colored stool. He reportedly quit drinking " a few" years ago. He has been admitted to the hospital for hematemsis and melena earlier this year. He had EGD on 01/18 which showed chronic gastrutus and chronic duodenitis, no varies. Currently patient reports cough with clear mucus , he denies any fevers, chills, chest pain, abd pain, n/v. PMH: chronic ETOH abuse, liver cirrhosis, HTN, COPD, hearing imparied, cataracts PSH: left hip repair family hx: noncontributory social hx: smokes about 1/2 pack per day, wuit drinking a few years ago, h/o alcoholism, deies illicit drug use allergies: NKDA Review of Systems - Constitutional Constitutional: absent: Chills, Fever, Headache - EENT Eyes: absent: Change in Vision Ears: Decreased Hearing Nose/Mouth/Throat: absent: Sore Throat - Cardiovascular Cardiovascular: absent: Chest Pain, Diaphoresis, Dyspnea, Edema - Respiratory Respiratory: Cough. absent: Dyspnea, Hemoptysis, Wheezing - Gastrointestinal Gastrointestinal: Diarrhea, Hematochezia, Melena. absent: Abdominal Pain, Constipation, Nausea, Vomiting - Genitourinary Genitourinary: absent: Difficulty Urinating, Dysuria - Musculoskeletal Musculoskeletal: absent: Myalgias, Numbness - Integumentary Integumentary: absent: Skin Ulcer, Wounds - Neurological Neurological: absent: Headaches, Syncope, Weakness Past Patient History - Infectious Disease Hx of Infectious Diseases: None - Tetanus Immunizations Tetanus Immunization: Unknown - Past Social History Smoking Status: Heavy Smoker > 10 Cigarettes Daily - CARDIAC Hx Cardiac Disorders: Yes Hx Hypertension: Yes - PULMONARY Hx Respiratory Disorders: Yes Hx Chronic Obstructive Pulmonary Disease (COPD): Yes - NEUROLOGICAL Hx Neurological Disorder: Yes HX Cerebrovascular Accident: Yes (left side as per patient) - HEENT Hx HEENT Problems: Yes Hx Blind: Yes Hx Cataracts: Yes (both eyes, glaucoma in the left eye) Hx Deafness: Yes Hx Glaucoma: Yes - RENAL Hx Chronic Kidney Disease: No - ENDOCRINE/METABOLIC Hx Diabetes Mellitus Type 2: No (denies) - HEMATOLOGICAL/ONCOLOGICAL Hx Blood Transfusions: Yes (10/30/16) Hx Blood Transfusion Reaction: No - INTEGUMENTARY Hx Dermatological Problems: No - MUSCULOSKELETAL/RHEUMATOLOGICAL Hx Musculoskeletal Disorders: Yes (uses cane) Hx Falls: Yes Hx Fractures: Yes Hx Unsteady Gait: Yes - GASTROINTESTINAL Hx Gastrointestinal Disorders: Yes (GI bleed with transfusions) - GENITOURINARY/GYNECOLOGICAL Hx Genitourinary Disorders: No - PSYCHIATRIC Hx Psychophysiologic Disorder: Yes (etoh, smoker) Hx Depression: Yes Hx Substance Use: No - SURGICAL HISTORY Hx Orthopedic Surgery: Yes - ANESTHESIA Hx Anesthesia: Yes Hx Anesthesia Reactions: No Hx Malignant Hyperthermia: No Meds Allergies/Adverse Reactions: Allergies Allergy/AdvReac Type Severity Reaction Status Date / Time No Known Allergies Allergy Verified 10/29/16 19:07 - Medications Medications: Current Medications Guaifenesin (Robitussin) 100 mg PO Q4H PRN PRN Reason: Cough Last Admin: 04/08/17 13:38 Dose: 100 mg Ceftriaxone Sodium (Rocephin 1 Gram Ivpb) 1 gm in 100 mls @ 100 mls/hr IVPB DAILY JUANITA PRN Reason: Protocol Last Admin: 04/08/17 10:15 Dose: 100 mls/hr Octreotide Acetate 1,250 mcg/ (Sodium Chloride) 252.5 mls @ 10.1 mls/hr IV .Q24H JUANITA; 50 MCG/HR PRN Reason: Protocol Pantoprazole Sodium (Protonix 40mg Ivpb) 40 mg in 100 mls @ 20 mls/hr IVPB .Q5H JUANITA Sodium Chloride (Sodium Chloride 0.9%) 1,000 mls @ 100 mls/hr IV .Q10H JUANITA Ondansetron HCl (Zofran Inj) 4 mg IVP Q6H PRN PRN Reason: Nausea/Vomiting Physical Exam - Constitutional Appears: No Acute Distress - Head Exam Head Exam: ATRAUMATIC, NORMAL INSPECTION, NORMOCEPHALIC - Eye Exam Eye Exam: EOMI, Normal appearance. absent: Scleral icterus - ENT Exam ENT Exam: Mucous Membranes Moist - Respiratory Exam Respiratory Exam: Clear to Auscultation Bilateral, NORMAL BREATHING PATTERN. absent: Decreased Breath Sounds, Rales, Rhonchi, Wheezes, Respiratory Distress - Cardiovascular Exam Cardiovascular Exam: REGULAR RHYTHM, +S1, +S2. absent: Tachycardia, Diastolic murmur, Systolic Murmur - GI/Abdominal Exam GI & Abdominal Exam: Normal Bowel Sounds, Soft. absent: Distended, Firm, Tenderness - Extremities Exam Extremities exam: Positive for: normal inspection. Negative for: pedal edema - Neurological Exam Neurological exam: Alert, Oriented x3 - Skin Skin Exam: Dry, Intact, Normal Color, Warm Results - Vital Signs Recent Vital Signs: Last Vital Signs Temp 98.3 F 04/09/17 04:23 Pulse 75 04/09/17 04:23 Resp 20 04/09/17 04:23 BP 130/63 04/09/17 04:23 Pulse Ox 94 L 04/09/17 04:23 - Labs Result Diagrams: 04/09/17 02:50 04/09/17 02:50 Labs: Laboratory Results - last 24 hr 04/09/17 04/09/17 02:50 02:50 WBC 7.8 RBC 2.97 L Hgb 8.6 L Hct 26.1 L MCV 87.9 MCH 29.0 MCHC 33.0 RDW 15.8 H Plt Count 131 MPV 10.2 Gran % 63.5 Lymph % (Auto) 22.8 [place] % (Auto) 7.2 H Eos % (Auto) 5.9 H Baso % (Auto) 0.6 Gran # 4.96 Lymph # 1.8 [place] # 0.6 Eos # 0.5 Baso # 0.05 Sodium 140 Potassium 3.5 L Chloride 113 H Carbon Dioxide 20 L Anion Gap 11 BUN 11 Creatinine 0.7 Est GFR ( Amer) > 60 Est GFR (Non-Af Amer) > 60 Random Glucose 106 Calcium 7.8 L Phosphorus 2.0 L Magnesium 1.9 Total Bilirubin 0.9 AST 47 ALT 37 Alkaline Phosphatase 201 H D Total Protein 5.3 L Albumin 2.7 L Globulin 2.6 Albumin/Globulin Ratio 1.0 L Assessment & Plan - Assessment and Plan (Free Text) Assessment: 71 yo male with PMH of chronic ETOH abuse, liver cirrhosis, HTN, COPD, hearing impaired, cataract presented with GI bleed. Plan: Neuro: - patient is alert and oriented x3 - cont to monitor cardio: - BP stable - maintain MAP>65 - h/o HTN, currently not on any medications pulm - saturating well on room air - robitussin for cough GI - GI Bleeding, recurrent melena - ddx includes but not limited to esophageal varices vs PUD - NPO - GI following - possible inpatient EGD - Octreotide and Protonix drips started - History of Chronic ETOH Abuse - seizure precautions sofiya: - BUN cr are stable - hypokalemia, repleted - cont to monitor electrolytes and replace as needed heme: - anemia - Hgb fell to 8.6 from 9.7 - will repeat CBC q4 - will transfuse if Hgb conts to down trend - pt received 2 units pRBC 2 day ago ID: - afebrile without leukocytosis - cont to monitor ppx GI- protonix drip DVT- active GI bleed, avoid anticoagulation <Irasema HOWARD,Jean - Last Filed: 04/09/17 06:46> Meds - Medications Medications: Current Medications Guaifenesin (Robitussin) 100 mg PO Q4H PRN PRN Reason: Cough Last Admin: 04/08/17 13:38 Dose: 100 mg Ceftriaxone Sodium (Rocephin 1 Gram Ivpb) 1 gm in 100 mls @ 100 mls/hr IVPB DAILY JUANITA PRN Reason: Protocol Last Admin: 04/08/17 10:15 Dose: 100 mls/hr Pantoprazole Sodium (Protonix 40mg Ivpb) 40 mg in 100 mls @ 20 mls/hr IVPB .Q5H JUANITA Last Admin: 04/09/17 05:26 Dose: 20 mls/hr Sodium Chloride (Sodium Chloride 0.9%) 1,000 mls @ 100 mls/hr IV .Q10H JUANITA Last Admin: 04/09/17 05:00 Dose: 100 mls/hr Potassium Chloride (Potassium Chloride 10 Meq/100 Ml) 10 meq in 100 mls @ 100 mls/hr IVPB Q2H JUANITA Stop: 04/09/17 08:14 Last Admin: 04/09/17 05:27 Dose: 100 mls/hr Octreotide Acetate 1,250 mcg/ (Sodium Chloride) 252.5 mls @ 10.1 mls/hr IV .Q24H JUANITA; 50 MCG/HR PRN Reason: Protocol Last Admin: 04/09/17 06:11 Dose: 50 mcg/hr, 10.1 mls/hr Ondansetron HCl (Zofran Inj) 4 mg IVP Q6H PRN PRN Reason: Nausea/Vomiting Results - Vital Signs Recent Vital Signs: Last Vital Signs Temp 98.3 F 04/09/17 04:23 Pulse 75 04/09/17 04:23 Resp 20 04/09/17 04:23 BP 130/63 04/09/17 04:23 Pulse Ox 94 L 04/09/17 04:23 - Labs Result Diagrams: 04/09/17 02:50 04/09/17 02:50 Labs: Laboratory Results - last 24 hr 04/09/17 04/09/17 02:50 02:50 WBC 7.8 RBC 2.97 L Hgb 8.6 L Hct 26.1 L MCV 87.9 MCH 29.0 MCHC 33.0 RDW 15.8 H Plt Count 131 MPV 10.2 Gran % 63.5 Lymph % (Auto) 22.8 [place] % (Auto) 7.2 H Eos % (Auto) 5.9 H Baso % (Auto) 0.6 Gran # 4.96 Lymph # 1.8 [place] # 0.6 Eos # 0.5 Baso # 0.05 Sodium 140 Potassium 3.5 L Chloride 113 H Carbon Dioxide 20 L Anion Gap 11 BUN 11 Creatinine 0.7 Est GFR ( Amer) > 60 Est GFR (Non-Af Amer) > 60 Random Glucose 106 Calcium 7.8 L Phosphorus 2.0 L Magnesium 1.9 Total Bilirubin 0.9 AST 47 ALT 37 Alkaline Phosphatase 201 H D Total Protein 5.3 L Albumin 2.7 L Globulin 2.6 Albumin/Globulin Ratio 1.0 L Attending/Attestation - Attestation I have personally seen and examined this patient.: Yes I have fully participated in the care of the patient.: Yes I have reviewed all pertinent clinical information: Yes Notes (Text): 04/09/17 06:41 -I agree with the above ICU consult note completed by the resident physician with the following additions and/or changes: -The patient is a 71 year old [place] man with a history of chronic alcohol abuse, COPD and liver cirrhosis who was admitted 2 days ago for acut emelena and hemaotchzia. After resolution of symptoms and a stable H/H, he was downgraded to med/surg yesterday morning. Also, GI consult had recommended starting clear liquid diet and an elective EGD. However, overnight, he had 3 large, burgundy colored stools (with blood clots) (per med/surge night nurse). Although his vitals signs have remained normal, he was upgraded back to the ICU this morning and re-started on OCtreotide and Protonix drips due to concerns for recurrence of bleeding. Consequently, GI will be notified of these acute developments and it appears that the patient will likely require an inpatient EGD.
[2017-04-09] MEDS: Pantoprazole 40mg/100ml IVPB 40 MG/100 ML BAG IVPB SCH ×2 (05:26→09:42)
[2017-04-09] MEDS ORDERED: Octreotide 1,250 MCG in Dextrose 5% In Water 250 ML IV SCH (05:30)
[2017-04-09] MEDS ORDERED: Potassium Phosphate 3 mmol/ml Inj IV ONE (06:59)
[2017-04-09] MEDS ORDERED: Potassium Phosphate 15 MMOLE in Sodium Chloride 0.9% 250 ML IVPB ONE (07:15)
--- NOTE | 2017-04-09 08:43 | PQF ANEMIA ---
This form is a permanent part of the medical record Clarification of your documentation is requested to better reflect the severity of illness and intensity of treatment of your patient. Indicators present Admitted w/ GI bleed, anemia. Transfused w/ 2UPRBC. 04/09 Episode of BRBPR w/ clots.Please clarify type & severity of anemia to best reflect intensity of treatment [x] Anemia [x] Drop in H&H from []___ to []___ [] Hypotension [x] GI Bleed [x] Transfusion(s) [] Acute bleed other sites [] Tachycardia [] Surgical Procedure Blood Loss (expected not a complication) Other:[] Location in the medical record that reflects the above clinical findings: [x] 04/09 Episode of GIB, H&H 8. Treatment Provided: [][facility]/ [facility] Based on your medical judgment of the clinical indicators outlined above, are you treating this patient for a known or suspected: [x] Acute blood loss anemia [x] Chronic blood loss anemia [] Acute on Chronic blood loss anemia [] Anemia due to malignancy [] Anemia due to chemotherapy or radiation therapy [] Anemia of Chronic Disease, please specify: [] [] Other, please indicate type of anemia []____ [] If Unable to Determine, please check the box, sign and date. Present On Admission (POA) Indicator: [x] Present at the time of admission [] Not present at the time of admission [] Clinically Undetermined In responding to this query, please exercise your independent professional judgment. The fact that a question is asked does not imply that any particular answer is desired or expected. Thank you for your clarification on this documentation. If you have any questions please call:[ ][phone] * Thank you, [ ]Tessa Moeller RN CDS sales counselor JULIET
[2017-04-09] MEDS: cefTRIAXone 1 gm 1 GM/100 ML BAG IVPB SCH (09:41)
[2017-04-09 09:54] LABS: BASO # 0.06 K/mm3 (0.0-2.0); BASO % 0.8 % (0.0-3.0); EOS # 0.4 (0.0-0.7); EOS % 5.1 % (1.5-5.0); GRAN # 5.17 (1.4-6.5); GRAN % 65.2 % (50.0-68.0); HEMATOCRIT 25.9 % (42.0-52.0); LYMPH # 1.7 (1.2-3.4); LYMPH % 21.8 % (22.0-35.0); MEAN CELL VOLUME 88.1 fl (80.0-105.0); MEAN CORPUSCULAR HEMOGLOBIN 28.6 pg (25.0-35.0); MEAN CORPUSCULAR HGB CONC 32.4 g/dl (31.0-37.0); MEAN PLATELET VOLUME 10.5 fl (7.0-11.0); MONO # 0.6 (0.1-0.6); MONO % 7.1 % (1.0-6.0); RED CELL DISTRIBUTION WIDTH 15.7 % (11.5-14.5); WHITE BLOOD COUNT 7.9 10^3/ul (4.5-11.0)
[2017-04-09 10:01] LABS: INR 1.11 (0.93-1.08); PARTIAL THROMBOPLASTIN TIME 30.8 Seconds (23.7-30.8)
--- NOTE | 2017-04-09 10:26 | CP.CCUPN ---
<Nanette Juárez - Last Filed: 04/09/17 10:44> CCU Subjective - Physician Review Events Since Last Encounter (Free Text): 04/09/17 10:23 Per nursing- BRBPR x 2 overnight on med-surg, transferred back to ICU for monitoring Subjective (Free Text): 04/09/17 10:23 Critical care progress note for Dr. Tamar Juárez, PGY-1 Pt S & E at bedside. Pt states he has not had any more BMs since overnight. Only complaint is diffuse body pruritis (chronic). Denies N/V/F/C, SOB, CP, ab pain, other complaints. Critical Care Time Spent (in minutes): 35 CCU Objective - Vital Signs / Intake & Output Intake and Output (Last 8hrs): Intake & Output 04/08/17 04/09/17 04/09/17 22:59 06:59 14:59 Intake Total 660 210 Output Total 600 Balance 60 210 Intake: IV 210 Left Forearm 150 Left hand 60 Oral 660 Output: Urine 600 Urine, Voided 600 Other: Voiding Method Urinal # Bowel Movements 0 1 - Physical Exam Head: Positive for: Atraumatic, Normocephalic Pupils: Positive for: Other (R pupil cloudy) Extroacular Muscles: Positive for: EOMI Conjunctiva: Positive for: Normal Ears: Positive for: Normal Mouth: Positive for: Moist Mucous Membranes Neck: Positive for: Normal Range of Motion Respiratory/Chest: Positive for: Clear to Auscultation, Good Air Exchange Cardiovascular: Positive for: Regular Rate and Rhythm, Normal S1, S2 Abdomen: Positive for: Normal Bowel Sounds. Negative for: Tenderness, Distention, Peritoneal Signs Upper Extremity: Positive for: Normal Inspection, NORMAL PULSES. Negative for: Cyanosis, Edema Lower Extremity: Positive for: Normal Inspection. Negative for: Edema Neurological: Positive for: GCS=15, CN II-XII Intact, Speech Normal Skin: Positive for: Rashes Psychiatric: Positive for: Alert, Oriented x 3, Normal Insight, Normal Concentration - Medications Active Medications: Active Medications Generic Name Dose Route Start Last Admin Trade Name Freq PRN Reason Stop Dose Admin Guaifenesin 100 mg 04/08/17 08:55 04/08/17 13:38 Robitussin PO 100 mg Q4H PRN Administration Cough Ceftriaxone Sodium 1 gm in 100 mls @ 100 mls/hr 04/07/17 00:50 04/09/17 09:41 Rocephin 1 Gram Ivpb IVPB 100 mls/hr DAILY JUANITA Administration Protocol Pantoprazole Sodium 40 mg in 100 mls @ 20 mls/hr 04/09/17 04:30 04/09/17 09: 42 Protonix 40mg Ivpb IVPB 20 mls/hr .Q5H JUANITA Administration Sodium Chloride 1,000 mls @ 100 mls/hr 04/09/17 04:30 04/09/17 05:00 Sodium Chloride 0.9% IV 100 mls/hr .Q10H JUANITA Administration Potassium Phosphate 15 mmole/ 255 mls @ 42.5 mls/hr 04/09/17 07:15 04/09/17 08:32 Sodium Chloride IVPB 04/09/17 13:14 42.5 mls/hr ONCE ONE Administration Ondansetron HCl 4 mg 04/07/17 00:43 Zofran Inj IVP Q6H PRN Nausea/Vomiting - Patient Studies Lab Studies: Microbiology Studies 04/07/17 03:37 MRSA Culture (Admit) - Final Naris MRSA NOT DETECTED Lab Studies 04/09/17 04/09/17 04/09/17 Range/Units 09:45 09:45 02:50 WBC 7.9 (4.5-11.0) 10^3/ul RBC 2.94 L (3.5-6.1) 10^6/uL Hgb 8.4 L (14.0-18.0) g/dL Hct 25.9 L (42.0-52.0) % MCV 88.1 (80.0-105.0) fl MCH 28.6 (25.0-35.0) pg MCHC 32.4 (31.0-37.0) g/dl RDW 15.7 H (11.5-14.5) % Plt Count 133 (120.0-450.0) 10^3/uL MPV 10.5 (7.0-11.0) fl Gran % 65.2 (50.0-68.0) % Lymph % (Auto) 21.8 L (22.0-35.0) % [place] % (Auto) 7.1 H (1.0-6.0) % Eos % (Auto) 5.1 H (1.5-5.0) % Baso % (Auto) 0.8 (0.0-3.0) % Gran # 5.17 (1.4-6.5) Lymph # 1.7 (1.2-3.4) [place] # 0.6 (0.1-0.6) Eos # 0.4 (0.0-0.7) Baso # 0.06 (0.0-2.0) K/mm3 PT 12.0 H (9.9-11.8) Seconds INR 1.11 H (0.93-1.08) APTT 30.8 (23.7-30.8) Seconds Sodium 140 (132-148) mmol/L Potassium 3.5 L (3.6-5.0) mmol/L Chloride 113 H (98-107) mmol/L Carbon Dioxide 20 L (21-33) mmol/L Anion Gap 11 (10-20) BUN 11 (7-21) mg/dL Creatinine 0.7 (0.5-1.4) mg/dL Est GFR ( Amer) > 60 Est GFR (Non-Af Amer) > 60 Random Glucose 106 (70-110) mg/dL Calcium 7.8 L (8.4-10.5) mg/dL Phosphorus 2.0 L (2.5-4.5) mg/dL Magnesium 1.9 (1.7-2.2) mg/dL Total Bilirubin 0.9 (0.2-1.3) mg/dL AST 47 (17-59) U/L ALT 37 (7-56) U/L Alkaline Phosphatase 201 H D (38-126) U/L Total Protein 5.3 L (5.8-8.3) g/dL Albumin 2.7 L (3.0-4.8) g/dL Globulin 2.6 gm/dL Albumin/Globulin Ratio 1.0 L (1.1-1.8) 04/09/17 Range/Units 02:50 WBC 7.8 (4.5-11.0) 10^3/ul RBC 2.97 L (3.5-6.1) 10^6/uL Hgb 8.6 L (14.0-18.0) g/dL Hct 26.1 L (42.0-52.0) % MCV 87.9 (80.0-105.0) fl MCH 29.0 (25.0-35.0) pg MCHC 33.0 (31.0-37.0) g/dl RDW 15.8 H (11.5-14.5) % Plt Count 131 (120.0-450.0) 10^3/uL MPV 10.2 (7.0-11.0) fl Gran % 63.5 (50.0-68.0) % Lymph % (Auto) 22.8 (22.0-35.0) % [place] % (Auto) 7.2 H (1.0-6.0) % Eos % (Auto) 5.9 H (1.5-5.0) % Baso % (Auto) 0.6 (0.0-3.0) % Gran # 4.96 (1.4-6.5) Lymph # 1.8 (1.2-3.4) [place] # 0.6 (0.1-0.6) Eos # 0.5 (0.0-0.7) Baso # 0.05 (0.0-2.0) K/mm3 PT (9.9-11.8) Seconds INR (0.93-1.08) APTT (23.7-30.8) Seconds Sodium (132-148) mmol/L Potassium (3.6-5.0) mmol/L Chloride (98-107) mmol/L Carbon Dioxide (21-33) mmol/L Anion Gap (10-20) BUN (7-21) mg/dL Creatinine (0.5-1.4) mg/dL Est GFR ( Amer) Est GFR (Non-Af Amer) Random Glucose (70-110) mg/dL Calcium (8.4-10.5) mg/dL Phosphorus (2.5-4.5) mg/dL Magnesium (1.7-2.2) mg/dL Total Bilirubin (0.2-1.3) mg/dL AST (17-59) U/L ALT (7-56) U/L Alkaline Phosphatase (38-126) U/L Total Protein (5.8-8.3) g/dL Albumin (3.0-4.8) g/dL Globulin gm/dL Albumin/Globulin Ratio (1.1-1.8) Laboratory Results - last 24 hr 04/09/17 04/09/17 04/09/17 02:50 02:50 09:45 WBC 7.8 7.9 RBC 2.97 L 2.94 L Hgb 8.6 L 8.4 L Hct 26.1 L 25.9 L MCV 87.9 88.1 MCH 29.0 28.6 MCHC 33.0 32.4 RDW 15.8 H 15.7 H Plt Count 131 133 MPV 10.2 10.5 Gran % 63.5 65.2 Lymph % (Auto) 22.8 21.8 L [place] % (Auto) 7.2 H 7.1 H Eos % (Auto) 5.9 H 5.1 H Baso % (Auto) 0.6 0.8 Gran # 4.96 5.17 Lymph # 1.8 1.7 [place] # 0.6 0.6 Eos # 0.5 0.4 Baso # 0.05 0.06 PT INR APTT Sodium 140 Potassium 3.5 L Chloride 113 H Carbon Dioxide 20 L Anion Gap 11 BUN 11 Creatinine 0.7 Est GFR ( Amer) > 60 Est GFR (Non-Af Amer) > 60 Random Glucose 106 Calcium 7.8 L Phosphorus 2.0 L Magnesium 1.9 Total Bilirubin 0.9 AST 47 ALT 37 Alkaline Phosphatase 201 H D Total Protein 5.3 L Albumin 2.7 L Globulin 2.6 Albumin/Globulin Ratio 1.0 L 04/09/17 09:45 WBC RBC Hgb Hct MCV MCH MCHC RDW Plt Count MPV Gran % Lymph % (Auto) [place] % (Auto) Eos % (Auto) Baso % (Auto) Gran # Lymph # [place] # Eos # Baso # PT 12.0 H INR 1.11 H APTT 30.8 Sodium Potassium Chloride Carbon Dioxide Anion Gap BUN Creatinine Est GFR ( Amer) Est GFR (Non-Af Amer) Random Glucose Calcium Phosphorus Magnesium Total Bilirubin AST ALT Alkaline Phosphatase Total Protein Albumin Globulin Albumin/Globulin Ratio Review of Systems - Review of Systems All systems: reviewed and no additional remarkable complaints except - Constitutional Constitutional: absent: Fever, Chills - EENT Eyes: Loss of Vision (chronic) Ears: Decreased Hearing (chronic) Nose/Mouth/Throat: UNREMARKABLE - Cardiovascular Cardiovascular: UNREMARKABLE. absent: Chest Pain - Respiratory Respiratory: UNREMARKABLE. absent: Cough - Gastrointestinal Gastrointestinal: UNREMARKABLE. absent: Abdominal Pain, Nausea, Vomiting - Genitourinary Genitourinary: UNREMARKABLE. absent: Difficulty Urinating - Musculoskeletal Musculoskeletal: UNREMARKABLE - Integumentary Integumentary: Rash (chronic), Other (pruritus (Diffuse)) - Endocrine Endocrine: UNREMARKABLE - Hematologic/Lymphatic Hematologic: UNREMARKABLE Critical Care Progress Note - Prophylaxis GI Prophylaxis GI: PPI - Prophylaxis DVT Prophylaxis DVT: SCDs - Nutrition Nutrition: Nutrition Category Date Time Status NPO Diet [DIET] Diets 04/09/17 Breakfast Ordered Assessment/Plan - Assessment and Plan (Free Text) Assessment: 71M w/acute GI bleeding, re-admitted to ICU for 2 episodes of BRBPR - currently stable Plan: Neuro AOx3 Hard of hearing Blind HOB to 30 degree CVS Normotensive Monitor Pulm Stable on RA Robitussin GI Zofran NPO Rocephin Protonix drip D/c'd octreotide drip FU Ab U/S FU H/H at 2pm GI following- appeciate recs urinating freely Monitor for bleeding Nephro Hypophosphatemia Phos- 2.0 Hypokalemia- K 3.5 Replaced K, Phos NS@100 Monitor MSK Monitor for skin break down PT eval when extubated ID [email or web address] No leukocytosis On Rocephin Monitor for SBP GI/DVT ppx Contraindications to VTE ppx 2/2 bleeding Protonix drip SCDs Dispo Monitor for bleeding PT/OT DW attending Marquita, PGY-1 - Date & Time Date: 04/09/17 Time: 07:30 <Kleber Farah - Last Filed: 04/09/17 12:55> CCU Objective - Vital Signs / Intake & Output Vital Signs (Last 4 hours): Vital Signs Temp Pulse Resp BP Pulse Ox 04/09/17 11:00 72 18 116/59 L 96 04/09/17 10:00 79 38 H 117/42 L 95 04/09/17 09:37 77 30 H 132/60 95 04/09/17 09:30 70 22 04/09/17 09:00 98.4 F Intake and Output (Last 8hrs): Intake & Output 04/08/17 04/09/17 04/09/17 22:59 06:59 14:59 Intake Total 660 210 Output Total 600 Balance 60 210 Weight 99 lb 14.4 oz Intake: IV 210 right forearm 150 right hand 60 Oral 660 Output: Urine 600 Urine, Voided 600 Other: Voiding Method Urinal Bedpan # Bowel Movements 0 1 - Medications Active Medications: Active Medications Generic Name Dose Route Start Last Admin Trade Name Freq PRN Reason Stop Dose Admin Guaifenesin 100 mg 04/08/17 08:55 04/08/17 13:38 Robitussin PO 100 mg Q4H PRN Administration Cough Ceftriaxone Sodium 1 gm in 100 mls @ 100 mls/hr 04/07/17 00:50 04/09/17 09:41 Rocephin 1 Gram Ivpb IVPB 100 mls/hr DAILY JUANITA Administration Protocol Pantoprazole Sodium 40 mg in 100 mls @ 20 mls/hr 04/09/17 04:30 04/09/17 09: 42 Protonix 40mg Ivpb IVPB 20 mls/hr .Q5H JUANITA Administration Sodium Chloride 1,000 mls @ 100 mls/hr 04/09/17 04:30 04/09/17 05:00 Sodium Chloride 0.9% IV 100 mls/hr .Q10H JUANITA Administration Potassium Phosphate 15 mmole/ 255 mls @ 42.5 mls/hr 04/09/17 07:15 04/09/17 08:32 Sodium Chloride IVPB 04/09/17 13:14 42.5 mls/hr ONCE ONE Administration Ondansetron HCl 4 mg 04/07/17 00:43 Zofran Inj IVP Q6H PRN Nausea/Vomiting - Patient Studies Lab Studies: Microbiology Studies 04/07/17 03:37 MRSA Culture (Admit) - Final Naris MRSA NOT DETECTED Lab Studies 04/09/17 04/09/17 04/09/17 Range/Units 09:45 09:45 09:45 WBC 7.9 (4.5-11.0) 10^3/ul RBC 2.94 L (3.5-6.1) 10^6/uL Hgb 8.4 L (14.0-18.0) g/dL Hct 25.9 L (42.0-52.0) % MCV 88.1 (80.0-105.0) fl MCH 28.6 (25.0-35.0) pg MCHC 32.4 (31.0-37.0) g/dl RDW 15.7 H (11.5-14.5) % Plt Count 133 (120.0-450.0) 10^3/uL MPV 10.5 (7.0-11.0) fl Gran % 65.2 (50.0-68.0) % Lymph % (Auto) 21.8 L (22.0-35.0) % [place] % (Auto) 7.1 H (1.0-6.0) % Eos % (Auto) 5.1 H (1.5-5.0) % Baso % (Auto) 0.8 (0.0-3.0) % Gran # 5.17 (1.4-6.5) Lymph # 1.7 (1.2-3.4) [place] # 0.6 (0.1-0.6) Eos # 0.4 (0.0-0.7) Baso # 0.06 (0.0-2.0) K/mm3 PT 12.0 H (9.9-11.8) Seconds INR 1.11 H (0.93-1.08) APTT 30.8 (23.7-30.8) Seconds Sodium (132-148) mmol/L Potassium (3.6-5.0) mmol/L Chloride (98-107) mmol/L Carbon Dioxide (21-33) mmol/L Anion Gap (10-20) BUN (7-21) mg/dL Creatinine (0.5-1.4) mg/dL Est GFR ( Amer) Est GFR (Non-Af Amer) Random Glucose (70-110) mg/dL Calcium (8.4-10.5) mg/dL Phosphorus (2.5-4.5) mg/dL Magnesium (1.7-2.2) mg/dL Total Bilirubin (0.2-1.3) mg/dL AST (17-59) U/L ALT (7-56) U/L Alkaline Phosphatase (38-126) U/L Total Protein (5.8-8.3) g/dL Albumin (3.0-4.8) g/dL Globulin gm/dL Albumin/Globulin Ratio (1.1-1.8) Blood Type AB POSITIVE Antibody Screen Negative BBK History Checked Patient has bt 04/09/17 04/09/17 Range/Units 02:50 02:50 WBC 7.8 (4.5-11.0) 10^3/ul RBC 2.97 L (3.5-6.1) 10^6/uL Hgb 8.6 L (14.0-18.0) g/dL Hct 26.1 L (42.0-52.0) % MCV 87.9 (80.0-105.0) fl MCH 29.0 (25.0-35.0) pg MCHC 33.0 (31.0-37.0) g/dl RDW 15.8 H (11.5-14.5) % Plt Count 131 (120.0-450.0) 10^3/uL MPV 10.2 (7.0-11.0) fl Gran % 63.5 (50.0-68.0) % Lymph % (Auto) 22.8 (22.0-35.0) % [place] % (Auto) 7.2 H (1.0-6.0) % Eos % (Auto) 5.9 H (1.5-5.0) % Baso % (Auto) 0.6 (0.0-3.0) % Gran # 4.96 (1.4-6.5) Lymph # 1.8 (1.2-3.4) [place] # 0.6 (0.1-0.6) Eos # 0.5 (0.0-0.7) Baso # 0.05 (0.0-2.0) K/mm3 PT (9.9-11.8) Seconds INR (0.93-1.08) APTT (23.7-30.8) Seconds Sodium 140 (132-148) mmol/L Potassium 3.5 L (3.6-5.0) mmol/L Chloride 113 H (98-107) mmol/L Carbon Dioxide 20 L (21-33) mmol/L Anion Gap 11 (10-20) BUN 11 (7-21) mg/dL Creatinine 0.7 (0.5-1.4) mg/dL Est GFR ( Amer) > 60 Est GFR (Non-Af Amer) > 60 Random Glucose 106 (70-110) mg/dL Calcium 7.8 L (8.4-10.5) mg/dL Phosphorus 2.0 L (2.5-4.5) mg/dL Magnesium 1.9 (1.7-2.2) mg/dL Total Bilirubin 0.9 (0.2-1.3) mg/dL AST 47 (17-59) U/L ALT 37 (7-56) U/L Alkaline Phosphatase 201 H D (38-126) U/L Total Protein 5.3 L (5.8-8.3) g/dL Albumin 2.7 L (3.0-4.8) g/dL Globulin 2.6 gm/dL Albumin/Globulin Ratio 1.0 L (1.1-1.8) Blood Type Antibody Screen BBK History Checked Laboratory Results - last 24 hr 04/09/17 04/09/17 04/09/17 02:50 02:50 09:45 WBC 7.8 7.9 RBC 2.97 L 2.94 L Hgb 8.6 L 8.4 L Hct 26.1 L 25.9 L MCV 87.9 88.1 MCH 29.0 28.6 MCHC 33.0 32.4 RDW 15.8 H 15.7 H Plt Count 131 133 MPV 10.2 10.5 Gran % 63.5 65.2 Lymph % (Auto) 22.8 21.8 L [place] % (Auto) 7.2 H 7.1 H Eos % (Auto) 5.9 H 5.1 H Baso % (Auto) 0.6 0.8 Gran # 4.96 5.17 Lymph # 1.8 1.7 [place] # 0.6 0.6 Eos # 0.5 0.4 Baso # 0.05 0.06 PT INR APTT Sodium 140 Potassium 3.5 L Chloride 113 H Carbon Dioxide 20 L Anion Gap 11 BUN 11 Creatinine 0.7 Est GFR ( Amer) > 60 Est GFR (Non-Af Amer) > 60 Random Glucose 106 Calcium 7.8 L Phosphorus 2.0 L Magnesium 1.9 Total Bilirubin 0.9 AST 47 ALT 37 Alkaline Phosphatase 201 H D Total Protein 5.3 L Albumin 2.7 L Globulin 2.6 Albumin/Globulin Ratio 1.0 L Blood Type Antibody Screen BBK History Checked 04/09/17 04/09/17 09:45 09:45 WBC RBC Hgb Hct MCV MCH MCHC RDW Plt Count MPV Gran % Lymph % (Auto) [place] % (Auto) Eos % (Auto) Baso % (Auto) Gran # Lymph # [place] # Eos # Baso # PT 12.0 H INR 1.11 H APTT 30.8 Sodium Potassium Chloride Carbon Dioxide Anion Gap BUN Creatinine Est GFR ( Amer) Est GFR (Non-Af Amer) Random Glucose Calcium Phosphorus Magnesium Total Bilirubin AST ALT Alkaline Phosphatase Total Protein Albumin Globulin Albumin/Globulin Ratio Blood Type AB POSITIVE Antibody Screen Negative BBK History Checked Patient has bt Critical Care Progress Note - Nutrition Nutrition: Nutrition Category Date Time Status NPO Diet [DIET] Diets 04/09/17 Breakfast Ordered Assessment/Plan - Assessment and Plan (Free Text) Plan: Patient seen and examined on rounds with resident, agree with note. Patient is 71yo male with PMhx legal blindness, hearing difficulty, EtOH abuse who presents back to ICU after 2 large bloody BMs on floor. Patient is currently afebrile, HD stable, comfortable with no major complaints. No further bleeding noted while in MICU, HH stable. Hypokalemia Hypophosphotemia GIB Recommend: - NPO - Protonix drip - DC octreotide - Monitor HH - follow up GI, patient for EGD later on today - maintain 2 large bore IVs - hold all anti-platelet, heparin products - replete electrolytes - IVF - DVT ppx, SCDs - Monitor in MICU
--- NOTE | 2017-04-09 11:21 | US ---
PROCEDURE: Portal vein duplex ultrasound. CLINICAL HISTORY: Cirrhosis. Deteriorating liver function. Evaluate for portal vein thrombosis. PHYSICIAN(S): Juan Miguel Sctot M.D. FINDINGS: The hepatic parenchyma is heterogeneous with a nodular margin consistent with cirrhosis. No obvious mass is identified on these limited images. The extrahepatic portal vein is patent with hepatopetal flow. The hepatic artery is patent. The 3 central patent veins are well seen and patent. The spleen is enlarged. There is a small amount of ascites in the upper abdomen. IMPRESSION: 1. Patent portal vein with hepatopetal flow.
[2017-04-09] MEDS ORDERED: Propofol 10 mg/ml Inj (20 ML) ONE (14:38)
[2017-04-09] MEDS ORDERED: Etomidate 20 mg/10ml Inj IV ONE (14:43)
[2017-04-09] MEDS: Octreotide 1,250 MCG in Dextrose 5% In Water 250 ML IV SCH (16:40)
--- NOTE | 2017-04-09 18:05 | CP.PCM.PCO ---
Physician Communication Note - Physician Communication Note Physician Communication Note: Pt upset regarding amout of blood draws, currently refusing.
--- NOTE | 2017-04-09 20:13 | CP.PCM.PN ---
Subjective - Date & Time of Evaluation Date of Evaluation: 04/09/17 Time of Evaluation: 02:30 - Subjective Subjective: This patient had mmaroon blood per rectum last night. Transfer to the unit repeat hemoglobin remains stable. History of esophageal ulcers, chronic liver disease status post EGD and colonoscopy in the past Orally compliant with follow-up, long history of EtOH use Denies any abdominal pain. Patient has been nothing by mouth for EGD Objective - Vital Signs/Intake and Output Vital Signs (last 24 hours): Temp Pulse Resp BP Pulse Ox 97.5 F L 73 33 H 178/77 H 100 04/09/17 16:00 04/09/17 18:01 04/09/17 18:01 04/09/17 18:01 04/09/17 18:01 Intake and Output: 04/09/17 04/10/17 18:59 06:59 Intake Total 1010 Output Total 950 Balance 60 - Medications Medications: Current Medications Guaifenesin (Robitussin) 100 mg PO Q4H PRN PRN Reason: Cough Last Admin: 04/08/17 13:38 Dose: 100 mg Ceftriaxone Sodium (Rocephin 1 Gram Ivpb) 1 gm in 100 mls @ 100 mls/hr IVPB DAILY JUANITA PRN Reason: Protocol Last Admin: 04/09/17 09:41 Dose: 100 mls/hr Sodium Chloride (Sodium Chloride 0.9%) 1,000 mls @ 100 mls/hr IV .Q10H JUANITA Last Admin: 04/09/17 05:00 Dose: 100 mls/hr Octreotide Acetate 1,250 mcg/ (Dextrose) 252.5 mls @ 5.05 mls/hr IV .Q24H JUANITA; 25 MCG/HR PRN Reason: Protocol Last Admin: 04/09/17 16:40 Dose: 25 mcg/hr, 5.05 mls/hr Ondansetron HCl (Zofran Inj) 4 mg IVP Q6H PRN PRN Reason: Nausea/Vomiting Pantoprazole Sodium (Protonix Inj) 40 mg IVP Q12 JUANITA - Labs Labs: 04/09/17 09:45 04/09/17 02:50 PT 12.0 Seconds (9.9-11.8) H 04/09/17 09:45 INR 1.11 (0.93-1.08) H 04/09/17 09:45 APTT 30.8 Seconds (23.7-30.8) 04/09/17 09:45 - Head Exam Head Exam: ATRAUMATIC, NORMOCEPHALIC - Eye Exam Eye Exam: EOMI, PERRL - ENT Exam ENT Exam: Mucous Membranes Moist - Neck Exam Neck Exam: Normal Inspection. absent: Lymphadenopathy - Respiratory Exam Respiratory Exam: NORMAL BREATHING PATTERN. absent: Rales, Stridor - Cardiovascular Exam Cardiovascular Exam: +S1, +S2. absent: JVD - GI/Abdominal Exam GI & Abdominal Exam: Soft. absent: Tenderness, Mass - Extremities Exam Extremities Exam: Normal Inspection. absent: Calf Tenderness - Neurological Exam Neurological Exam: Alert, Awake, Oriented x3 - Psychiatric Exam Psychiatric exam: Normal Affect, Normal Mood Assessment and Plan - Assessment and Plan (Free Text) Assessment: This 71-year-old patient with a long history of EtOH use chronic liver disease history of esophageal ulceration admitted with a severe anemia, Status post 2 units packed RBC transfusion Had episodes of bright red/marroon blood per rectum Patient is on octreotide drip and also Protonix drip Discussed with the patient at length informed consent was obtained before upper GI endoscopy to evaluation
--- NOTE | 2017-04-09 20:18 | CP.PCM.PN ---
Subjective - Date & Time of Evaluation Date of Evaluation: 04/08/17 Time of Evaluation: 14:00 - Subjective Subjective: No episodes of bleeding per rectum no abdominal pain no melena. Patient to feel hungry, does not want to take Clearliquid diet Objective - Vital Signs/Intake and Output Vital Signs (last 24 hours): Temp Pulse Resp BP Pulse Ox 98.9 F 80 18 131/64 92 L 04/08/17 15:54 04/08/17 15:54 04/08/17 15:54 04/08/17 15:54 04/08/17 15:54 Intake and Output: 04/08/17 04/09/17 18:59 06:59 Intake Total 660 Output Total 600 Balance 60 - Medications Medications: Current Medications Guaifenesin (Robitussin) 100 mg PO Q4H PRN PRN Reason: Cough Last Admin: 04/08/17 13:38 Dose: 100 mg Ceftriaxone Sodium (Rocephin 1 Gram Ivpb) 1 gm in 100 mls @ 100 mls/hr IVPB DAILY [facility] PRN Reason: Protocol Last Admin: 04/08/17 10:15 Dose: 100 mls/hr Dextrose/Sodium Chloride (Dextrose 5%/0.45% Ns 1000 Ml) 1,000 mls @ 50 mls/hr IV .Q20H [facility] Last Admin: 04/08/17 06:12 Dose: 50 mls/hr Ondansetron HCl (Zofran Inj) 4 mg IVP Q6H PRN PRN Reason: Nausea/Vomiting Pantoprazole Sodium (Protonix Ec Tab) 40 mg PO 0600,1600 [facility] Last Admin: 04/08/17 17:26 Dose: 40 mg - Labs Labs: 04/07/17 16:50 04/07/17 16:50 PT 10.9 Seconds (9.9-11.8) 04/06/17 21:05 INR 1.01 (0.93-1.08) 04/06/17 21:05 APTT 27.1 Seconds (23.7-30.8) 04/06/17 21:05 - Head Exam Head Exam: ATRAUMATIC, NORMOCEPHALIC - Eye Exam Eye Exam: EOMI, PERRL - ENT Exam ENT Exam: Mucous Membranes Moist, Normal External Ear Exam - Neck Exam Neck Exam: Normal Inspection. absent: Lymphadenopathy - Respiratory Exam Respiratory Exam: Clear to Ausculation Bilateral, NORMAL BREATHING PATTERN. absent: Rhonchi - Cardiovascular Exam Cardiovascular Exam: +S1, +S2. absent: JVD - GI/Abdominal Exam GI & Abdominal Exam: Soft, Normal Bowel Sounds. absent: Tenderness, Mass - Rectal Exam Rectal Exam: Deferred - Extremities Exam Extremities Exam: Full ROM. absent: Calf Tenderness - Neurological Exam Neurological Exam: Alert, Awake, Oriented x3 - Psychiatric Exam Psychiatric exam: Anxious, Normal Mood - Skin Skin Exam: Dry, Intact Assessment and Plan - Assessment and Plan (Free Text) Assessment: p Plan: This 71-year-old patient with a long history of all, use, history of chronic liver disease, esophageal ulcerations. These of esophagitis now presented with severe anemia symptomatic status post transfusion no further episodes of bleeding 1. Melena and also diet to full liquid diet 2. Continue to monitor closely hemoglobin and hematocrit 3. Will consider repeating endoscopy We'll continue to closely follow her For the Further Management Based on the Clinical Course
[2017-04-10] MEDS ORDERED: DiphenhydrAMINE 50 mg/ml Inj IVP STA (02:28)
[2017-04-10 07:05] LABS: BASO # 0.04 K/mm3 (0.0-2.0); BASO % 0.3 % (0.0-3.0); EOS # 0.3 (0.0-0.7); EOS % 2.6 % (1.5-5.0); GRAN # 8.79 (1.4-6.5); HEMATOCRIT 28.7 % (42.0-52.0); LYMPH # 1.9 (1.2-3.4); MEAN CELL VOLUME 89.4 fl (80.0-105.0); MEAN CORPUSCULAR HEMOGLOBIN 29.3 pg (25.0-35.0); MEAN CORPUSCULAR HGB CONC 32.8 g/dl (31.0-37.0); MEAN PLATELET VOLUME 10.6 fl (7.0-11.0); MONO # 0.7 (0.1-0.6); MONO % 6.1 % (1.0-6.0); RED CELL DISTRIBUTION WIDTH 15.6 % (11.5-14.5); WHITE BLOOD COUNT 11.7 10^3/ul (4.5-11.0)
[2017-04-10 07:19] LABS: ALKALINE PHOSPHATASE 180 U/L (38-126); ALT/SGPT 39 U/L (7-56); AST/SGOT 37 U/L (17-59); BILIRUBIN,TOTAL 1.4 mg/dL (0.2-1.3); BLOOD UREA NITROGEN 9 mg/dL (7-21); CALCIUM 7.3 mg/dL (8.4-10.5); CARBON DIOXIDE 19 mmol/L (21-33); CHLORIDE 115 mmol/L (98-107); GFR AFRICAN-AMERICAN > 60; GLUCOSE,RANDOM 94 mg/dL (70-110); MAGNESIUM 1.7 mg/dL (1.7-2.2); PHOSPHOROUS 2.8 mg/dL (2.5-4.5); POTASSIUM 3.5 mmol/L (3.6-5.0); SODIUM 141 mmol/L (132-148); TOTAL PROTEIN 5.2 g/dL (5.8-8.3)
[2017-04-10] MEDS ORDERED: Potassium Chloride 40 mEq/30 ml LIQ UD PO ONE (08:18)
[2017-04-10] MEDS ORDERED: Potassium Chloride 20 mEq ER Tab PO ONE (08:19)
[2017-04-10] MEDS: cefTRIAXone 1 gm 1 GM/100 ML BAG IVPB SCH (09:31)
[2017-04-10] MEDS: guaiFENesin 100 mg/5 ml Syrup UD PO PRN ×3 (09:44→23:48)
[2017-04-10] MEDS ORDERED: Magnesium Sulfate 1 gm in D5W 1 GM/100 ML BAG IVPB ONE (10:09)
[2017-04-10] MEDS: Sucralfate 1 gm/10 ml Oral Susp UD PO SCH ×3 (10:29→22:26)
--- NOTE | 2017-04-10 10:30 | PN ---
The patient is a 71-year-old male. SUBJECTIVE: The patient was seen and examined on the bedside in the unit. Daughter, son, and homemaker are on the bedside. The patient has episodes of rectal bleeding which includes bright red and large amount of clots, also has blood-stained sputum noted by Leigh Kothari, the house physician. Denies headache, dizziness. Has history of abdominal pain. Discussion done with Dr. Oropeza. The patient went for endoscopy and according to Dr. Oropeza, the patient has profuse bleeding from the esophagus. Dr. Oropeza did procedure. Right now in the unit, no headache, the patient is hungry. PHYSICAL EXAMINATION: VITAL SIGNS: Temperature 98.4, pulse 73, respiratory rate 20, blood pressure 112/58, pulse oxymetry 97. HEENT: Head: Normocephalic and atraumatic. Eyes: PERRLA, extraocular muscles are intact, conjunctivae are clear. Nose patent. Mucous membrane moist. NECK: Supple. No carotid bruits. No JVD or thyromegaly. CHEST: Bilaterally symmetrical. HEART: S1 and S2 positive. LUNGS: Clear to auscultation. ABDOMEN: Soft. Bowel sounds positive. No organomegaly. EXTREMITIES: No edema, no cyanosis. NEUROLOGICAL: The patient is awake, alert, moving all 4 extremities. No focal deficit. MEDICATIONS: Robitussin, Rocephin, dextrose, Zofran, and Protonix. LABORATORY DATA: White blood cells 7.8, hemoglobin 8.6, hematocrit 26.1, and platelets 131. Sodium 140, potassium 3.5, BUN 11, creatinine 0.7, and glucose 106. ASSESSMENT AND PLAN: The patient is a 71-year-old male with anemia, hypokalemia, hyperchloremia, gastrointestinal bleeding, history of heavy smoking. The patient was transferred from floor to the unit. History of chronic liver disease, status post EGD and colonoscopy in the past, still smoking and having ethanol abuse. Cirrhosis of the liver. Status post 2 units of packed red blood cells transfusion, had episode of bright red/maroon blood per rectum. The patient is on octreotide drip and also Protonix drip. Dr. Oropeza had discussion done with the patient's brother and daughter and the same thing myself, did discussion with brother and daughter. 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 Varices had red waldo signs. There was a vessel oozing blood, active bleeding due to contact of scope at 35 cm level was noticed. Two bands were successfully placed by incomplete eradication of that varicose. Bleeding had stopped at the end of the procedure. Patchy mild inflammation characterized by erythema was found in the gastric antrum. Gastritis, continue octreotide drip, Protonix. Interventional Radiology was consulted by Dr. Oropeza. Waiting for pathology result. The patient was returned back to the unit. Discussion done with the patient's brother and daughter and Dr. Oropeza. Abdominal ultrasound was done, reviewed by me. Senior Web Engineer notes reviewed. The patient has a history of hypertension, chronic obstructive pulmonary disease, hearing impairment, cataract surgery, left hip repair. Urged to quit smoking and drinking. A discussion done with family. We will follow up. Evie Ponce MD JULIET
--- NOTE | 2017-04-10 10:32 | CP.PCM.PN ---
<Tasha Gallo - Last Filed: 04/10/17 10:35> Subjective - Date & Time of Evaluation Date of Evaluation: 04/10/17 Time of Evaluation: 08:00 - Subjective Subjective: seen and examined at the bedside this morning, no acute overnight events reported. Patient had endoscopy yesterday, found to have grade 2 varices with stigmata of recent bleeding, area was banded. There was some contact bleeding from the scope, contained. No reports of hematemesis or bleeding per rectum last night or this morning. Patient denies nausea, vomiting, or abdominal pain. Objective - Vital Signs/Intake and Output Vital Signs (last 24 hours): Temp Pulse Resp BP Pulse Ox 97.3 F L 69 18 104/50 L 94 L 04/10/17 08:00 04/10/17 08:00 04/10/17 08:00 04/10/17 05:00 04/10/17 03:00 Intake and Output: 04/10/17 04/10/17 06:59 18:59 Intake Total 1260 Output Total 500 Balance 760 - Medications Medications: Current Medications Guaifenesin (Robitussin) 100 mg PO Q4H PRN PRN Reason: Cough Last Admin: 04/10/17 09:44 Dose: 100 mg Ceftriaxone Sodium (Rocephin 1 Gram Ivpb) 1 gm in 100 mls @ 100 mls/hr IVPB DAILY JUANITA PRN Reason: Protocol Stop: 04/15/17 00:50 Last Admin: 04/10/17 09:31 Dose: 100 mls/hr Octreotide Acetate 1,250 mcg/ (Dextrose) 252.5 mls @ 5.05 mls/hr IV .Q24H JUANITA; 25 MCG/HR PRN Reason: Protocol Last Admin: 04/09/17 16:40 Dose: 25 mcg/hr, 5.05 mls/hr Acetaminophen (Ofirmev) 1,000 mg in 100 mls @ 400 mls/hr IVPB Q6H PRN PRN Reason: fever Stop: 04/12/17 00:50 Last Admin: 04/10/17 01:04 Dose: 400 mls/hr Magnesium Sulfate/Dextrose (Magnesium Sulfate 1 Gm/100 Ml D5w) 1 gm in 100 mls @ 100 mls/hr IVPB ONCE ONE Stop: 04/10/17 11:08 Lorazepam (Ativan) 2 mg IVP Q3H PRN; Protocol PRN Reason: Agitation Last Admin: 04/10/17 03:48 Dose: 2 mg Ondansetron HCl (Zofran Inj) 4 mg IVP Q6H PRN PRN Reason: Nausea/Vomiting Pantoprazole Sodium (Protonix Inj) 40 mg IVP Q12 JUANITA Last Admin: 04/10/17 09:31 Dose: 40 mg Sucralfate (Carafate Oral Susp) 1 gm PO 0630,1130,1630,2200 JUANITA - Labs Labs: 04/10/17 06:30 04/10/17 06:30 PT 12.0 Seconds (9.9-11.8) H 04/09/17 09:45 INR 1.11 (0.93-1.08) H 04/09/17 09:45 APTT 30.8 Seconds (23.7-30.8) 04/09/17 09:45 - Constitutional Appears: No Acute Distress - Head Exam Head Exam: NORMOCEPHALIC - Eye Exam Eye Exam: Normal appearance. absent: Scleral icterus - ENT Exam ENT Exam: Mucous Membranes Moist - Neck Exam Neck Exam: Normal Inspection - Respiratory Exam Respiratory Exam: Decreased Breath Sounds, Rhonchi, NORMAL BREATHING PATTERN. absent: Respiratory Distress - Cardiovascular Exam Cardiovascular Exam: +S1, +S2 - GI/Abdominal Exam GI & Abdominal Exam: Soft, Normal Bowel Sounds. absent: Distended, Guarding, Tenderness, Organomegaly, Rebound - Extremities Exam Extremities Exam: Normal Capillary Refill. absent: Calf Tenderness, Pedal Edema - Neurological Exam Neurological Exam: Alert, Awake, Oriented x3 - Skin Skin Exam: Dry, Warm Assessment and Plan - Assessment and Plan (Free Text) Assessment: Assessment: This 71-year-old patient with a long history of EtOH, history of chronic liver disease, esophageal ulcerations. Severe symptomatic anemia, status post transfusion status post GI bleed Status post endoscopy, found to have grade 2 varices with stigmata of bleeding status post banding Plan: Start clear liquid diet Decrease IV fluids to 60 cc an hour Start Carafate 1 g 4 times a day Continue octreotide Continue Protonix twice a day Monitor CBC every 8 hours Check PT PTT on IV antibiotics of Rocephin,? Prophylactic SBP Discussed with nursing team. Seen and discussed with Dr. Oropeza. <Sandip,Kovil V - Last Filed: 04/10/17 20:49> Objective - Vital Signs/Intake and Output Vital Signs (last 24 hours): Temp Pulse Resp BP Pulse Ox 98.6 F 66 18 132/83 96 04/10/17 16:00 04/10/17 19:00 04/10/17 19:00 04/10/17 18:00 04/10/17 19:00 Intake and Output: 04/10/17 04/11/17 18:59 06:59 Intake Total 987.5 Balance 987.5 - Medications Medications: Current Medications Albuterol/Ipratropium (Duoneb 3 Mg/0.5 Mg (3 Ml) Ud) 3 ml IH [id number] JUANITA Last Admin: 04/10/17 19:58 Dose: 3 ml Budesonide (Pulmicort Respules) 0.5 mg IH [id number] JUANITA Last Admin: 04/10/17 19:58 Dose: 0.5 mg Guaifenesin (Robitussin) 100 mg PO Q4H PRN PRN Reason: Cough Last Admin: 04/10/17 18:36 Dose: 100 mg Octreotide Acetate 1,250 mcg/ (Dextrose) 252.5 mls @ 5.05 mls/hr IV .Q24H JUANITA; 25 MCG/HR PRN Reason: Protocol Last Titration: 04/10/17 18:37 Dose: Infused Acetaminophen (Ofirmev) 1,000 mg in 100 mls @ 400 mls/hr IVPB Q6H PRN PRN Reason: fever Stop: 04/12/17 00:50 Last Admin: 04/10/17 01:04 Dose: 400 mls/hr Doxycycline Hyclate 100 mg/ (Sodium Chloride) 100 mls @ 100 mls/hr IVPB Q12 JUANITA PRN Reason: Protocol Meropenem 1g/NS 100mL IVPB (Meropenem 1g/Ns 100ml Ivpb) 1 gm in 100 mls @ 100 mls/hr IVPB Q8 JUANITA PRN Reason: Protocol Vancomycin HCl (Vancomycin 1gm) 1 gm in 250 mls @ 167 mls/hr IVPB Q12H JUANITA PRN Reason: Protocol Lorazepam (Ativan) 2 mg IVP Q3H PRN; Protocol PRN Reason: Agitation Last Admin: 04/10/17 03:48 Dose: 2 mg Ondansetron HCl (Zofran Inj) 4 mg IVP Q6H PRN PRN Reason: Nausea/Vomiting Pantoprazole Sodium (Protonix Inj) 40 mg IVP Q12 JUANITA Last Admin: 04/10/17 09:31 Dose: 40 mg Sucralfate (Carafate Oral Susp) 1 gm PO 0630,1130,1630,2200 JUANITA Last Admin: 04/10/17 18:36 Dose: 1 gm - Labs Labs: 04/10/17 06:30 04/10/17 06:30 PT 12.0 Seconds (9.9-11.8) H 04/09/17 09:45 INR 1.11 (0.93-1.08) H 04/09/17 09:45 APTT 30.8 Seconds (23.7-30.8) 04/09/17 09:45 Attending/Attestation - Attestation I have personally seen and examined this patient.: Yes I have fully participated in the care of the patient.: Yes I have reviewed all pertinent clinical information, including history, physical exam and plan: Yes Notes (Text): this patient was seen and evaluated earlier. This is an addendum to the GI progress report dictated by Tasha Gallo APN. Patient did spike a temperature of 102 yesterday. Denies any abdominal pain. No further episodes of bleeding per rectum or melena. On examination abdomen soft no tenderness Status post endoscopy and and banding of esophageal varices. Patient is on Protonix IV 40 mg every 12, octreotide drip, Carafate liquid 1 g 4 times a day. Plan Follow-up hemoglobin and hematocrit Sonogram reviewed limited study patient does have history of gallstones Follow-up the cultures Liquid diet Discussed with the residents,learning solutions specialist and also Thank you very much allowing us to participate in the care of the patient 04/10/17 20:45
--- NOTE | 2017-04-10 10:51 | CP.CCUPN ---
<Nanette Juárez - Last Filed: 04/10/17 10:52> CCU Subjective - Physician Review Events Since Last Encounter (Free Text): 04/10/17 10:48 Pt refusing lab draws overnight Subjective (Free Text): 04/09/17 10:23 Critical care progress note for Dr. Tamar Juárez, PGY-1 Pt S & E at bedside. Pt states he has not had any more BMs since overnight. Only complaint is diffuse body pruritis (chronic). Denies N/V/F/C, SOB, CP, ab pain, other complaints. 04/10/17 10:49 Critical care progress note for Dr. Tamar Juárez, PGY-1 Pt S & E at bedside. Pt without complaints overnight. Denies N/V/F/C, SOB, CP, ab pain, other complaints. 71M w/acute GI bleeding, re-admitted to ICU for 2 episodes of BRBPR now s/p EGD with bleeding varices w/banding x 2, 2 units pRBCs in during procedure, stable overnight Critical Care Time Spent (in minutes): 35 CCU Objective - Vital Signs / Intake & Output Vital Signs (Last 4 hours): Vital Signs Temp Pulse Resp BP 04/10/17 10:00 114/51 L 04/10/17 09:59 74 20 04/10/17 09:01 77 33 H 132/59 L 04/10/17 09:00 83 28 H 04/10/17 08:00 97.3 F L 69 18 04/10/17 07:00 85 15 Intake and Output (Last 8hrs): Intake & Output 04/09/17 04/10/17 04/10/17 22:59 06:59 14:59 Intake Total 1010 1260 Output Total 950 500 Balance 60 760 Intake: IV 685 1260 right forearm 685 1260 Oral 0 Blood Product 325 Output: Urine 950 500 Urine, Voided 950 500 Other: Voiding Method Bedpan # Voids Urine, Voided 3 # Bowel Movements 1 - Physical Exam Head: Positive for: Atraumatic, Normocephalic Pupils: Positive for: Other (R pupil cloudy) Extroacular Muscles: Positive for: EOMI Conjunctiva: Positive for: Normal Ears: Positive for: Normal Mouth: Positive for: Moist Mucous Membranes Neck: Positive for: Normal Range of Motion Respiratory/Chest: Positive for: Clear to Auscultation, Good Air Exchange Cardiovascular: Positive for: Regular Rate and Rhythm, Normal S1, S2 Abdomen: Positive for: Normal Bowel Sounds. Negative for: Tenderness, Distention, Peritoneal Signs Upper Extremity: Positive for: Normal Inspection, NORMAL PULSES. Negative for: Cyanosis, Edema Lower Extremity: Positive for: Normal Inspection. Negative for: Edema Neurological: Positive for: GCS=15, CN II-XII Intact, Speech Normal Skin: Positive for: Warm, Dry, Rashes (over head), Normal Color Psychiatric: Positive for: Alert, Oriented x 3, Normal Insight, Normal Concentration - Medications Active Medications: Active Medications Generic Name Dose Route Start Last Admin Trade Name Freq PRN Reason Stop Dose Admin Guaifenesin 100 mg 04/08/17 08:55 04/10/17 09:44 Robitussin PO 100 mg Q4H PRN Administration Cough Ceftriaxone Sodium 1 gm in 100 mls @ 100 mls/hr 04/07/17 00:50 04/10/17 09:31 Rocephin 1 Gram Ivpb IVPB 04/15/17 00:50 100 mls/hr DAILY JUANITA Administration Protocol Octreotide Acetate 1,250 mcg/ 252.5 mls @ 5.05 mls/hr 04/09/17 16:30 16:40 Dextrose IV 25 mcg/hr .Q24H JUANITA 5.05 mls/hr Protocol Administration 25 MCG/HR Acetaminophen 1,000 mg in 100 mls @ 400 mls/hr 04/10/17 00:49 04/10/17 01:04 Ofirmev IVPB 04/12/17 00:50 400 mls/hr Q6H PRN Administration fever Magnesium Sulfate/Dextrose 1 gm in 100 mls @ 100 mls/hr 04/10/17 10:09 10:25 Magnesium Sulfate 1 Gm/100 Ml D5w IVPB 04/10/17 11:08 100 mls/hr ONCE ONE Administration Lorazepam 2 mg 04/10/17 03:17 04/10/17 03:48 Ativan IVP 2 mg Q3H PRN Administration Agitation Protocol Ondansetron HCl 4 mg 04/07/17 00:43 Zofran Inj IVP Q6H PRN Nausea/Vomiting Pantoprazole Sodium 40 mg 04/09/17 22:00 04/10/17 09:31 Protonix Inj IVP 40 mg Q12 JUANITA Administration Sucralfate 1 gm 04/10/17 11:30 04/10/17 10:29 Carafate Oral Susp PO 1 gm 0630,1130,1630,2200 JUANITA Administration - Patient Studies Lab Studies: Lab Studies 04/10/17 04/10/17 04/09/17 Range/Units 06:30 06:30 09:45 WBC 11.7 H D (4.5-11.0) 10^3/ul RBC 3.21 L (3.5-6.1) 10^6/uL Hgb 9.4 L (14.0-18.0) g/dL Hct 28.7 L (42.0-52.0) % MCV 89.4 (80.0-105.0) fl MCH 29.3 (25.0-35.0) pg MCHC 32.8 (31.0-37.0) g/dl RDW 15.6 H (11.5-14.5) % Plt Count 115 L (120.0-450.0) 10^3/uL MPV 10.6 (7.0-11.0) fl Gran % 75.0 H (50.0-68.0) % Lymph % (Auto) 16.0 L (22.0-35.0) % [place] % (Auto) 6.1 H (1.0-6.0) % Eos % (Auto) 2.6 (1.5-5.0) % Baso % (Auto) 0.3 (0.0-3.0) % Gran # 8.79 H (1.4-6.5) Lymph # 1.9 (1.2-3.4) [place] # 0.7 H (0.1-0.6) Eos # 0.3 (0.0-0.7) Baso # 0.04 (0.0-2.0) K/mm3 Sodium 141 (132-148) mmol/L Potassium 3.5 L (3.6-5.0) mmol/L Chloride 115 H (98-107) mmol/L Carbon Dioxide 19 L (21-33) mmol/L Anion Gap 11 (10-20) BUN 9 (7-21) mg/dL Creatinine 0.6 (0.5-1.4) mg/dL Est GFR ( Amer) > 60 Est GFR (Non-Af Amer) > 60 Random Glucose 94 (70-110) mg/dL Calcium 7.3 L (8.4-10.5) mg/dL Phosphorus 2.8 (2.5-4.5) mg/dL Magnesium 1.7 (1.7-2.2) mg/dL Total Bilirubin 1.4 H (0.2-1.3) mg/dL AST 37 (17-59) U/L ALT 39 (7-56) U/L Alkaline Phosphatase 180 H (38-126) U/L Total Protein 5.2 L (5.8-8.3) g/dL Albumin 2.6 L (3.0-4.8) g/dL Globulin 2.6 gm/dL Albumin/Globulin Ratio 1.0 L (1.1-1.8) Blood Type AB POSITIVE Antibody Screen Negative Crossmatch See Detail BBK History Checked Patient has bt Laboratory Results - last 24 hr 04/09/17 04/10/17 04/10/17 09:45 06:30 06:30 WBC 11.7 H D RBC 3.21 L Hgb 9.4 L Hct 28.7 L MCV 89.4 MCH 29.3 MCHC 32.8 RDW 15.6 H Plt Count 115 L MPV 10.6 Gran % 75.0 H Lymph % (Auto) 16.0 L [place] % (Auto) 6.1 H Eos % (Auto) 2.6 Baso % (Auto) 0.3 Gran # 8.79 H Lymph # 1.9 [place] # 0.7 H Eos # 0.3 Baso # 0.04 Sodium 141 Potassium 3.5 L Chloride 115 H Carbon Dioxide 19 L Anion Gap 11 BUN 9 Creatinine 0.6 Est GFR ( Amer) > 60 Est GFR (Non-Af Amer) > 60 Random Glucose 94 Calcium 7.3 L Phosphorus 2.8 Magnesium 1.7 Total Bilirubin 1.4 H AST 37 ALT 39 Alkaline Phosphatase 180 H Total Protein 5.2 L Albumin 2.6 L Globulin 2.6 Albumin/Globulin Ratio 1.0 L Blood Type AB POSITIVE Antibody Screen Negative Crossmatch See Detail BBK History Checked Patient has bt Review of Systems - Review of Systems All systems: reviewed and no additional remarkable complaints except - Constitutional Constitutional: absent: Fever, Chills - EENT Eyes: absent: UNREMARKABLE (blind) Ears: Decreased Hearing (deaf). absent: UNREMARKABLE Nose/Mouth/Throat: UNREMARKABLE. absent: Dry Mouth - Cardiovascular Cardiovascular: UNREMARKABLE. absent: Chest Pain - Respiratory Respiratory: Cough - Gastrointestinal Gastrointestinal: UNREMARKABLE. absent: Abdominal Pain, Coffee Ground Emesis, Hematemesis, Hematochezia, Melena, Nausea, Vomiting - Genitourinary Genitourinary: UNREMARKABLE. absent: Hematuria - Musculoskeletal Musculoskeletal: UNREMARKABLE - Integumentary Integumentary: Rash - Neurological Neurological: UNREMARKABLE Critical Care Progress Note - Extremities/Vascular Does the Patient have a Central Venous Catheter?: No Does the Patient need a Central Venous Catheter?: No Does the Patient have a Lynn Catheter?: No Does the Patient need a Lynn Catheter?: No - Prophylaxis GI Prophylaxis GI: PPI - Prophylaxis DVT Prophylaxis DVT: SCDs - Nutrition Nutrition: Nutrition Category Date Time Status Liquid Diet [DIET] Diets 04/10/17 Breakfast Ordered Assessment/Plan - Assessment and Plan (Free Text) Assessment: 71M w/acute GI bleeding, re-admitted to ICU for 2 episodes of BRBPR, taken for EGD yesterday with variceal bleeidng, banding x2, 2 units pRBCs given in EGD, pt refused FU H/H lab work after procedure- currently stable, no episodes of bleeding per nursing. Plan: Neuro AOx3 Hard of hearing Blind HOB to 30 degree Ativan PRN agitation Given Benadryl overnight without effect CIWA protocol Monitor CVS Normotensive Monitor Pulm Stable on RA Robitussin Pulm following GI Zofran Advanced to CLD Rocephin Protonix drip Octreotide drip Sulcralfate Ab U/S- Patent portal vein with hepatopetal flow. H/H at 2pm- pt refused GI following- continue ocreotide drip, d/c IVF, monitor overnight urinating freely Monitor for bleeding Nephro Hypomagnesemia Mg 1.4 Hypokalemia- K 3.5 Replaced K, Mg D/c'd NS@100 Monitor MSK Monitor for skin break down ID Febrile over last 24H, Tmax 102.3 Leukocytosis 11.7 On Rocephin Tylenol PRN Monitor for SBP GI/DVT ppx Contraindications to VTE ppx 2/2 bleeding Protonix drip SCDs Dispo Monitor for bleeding PT/OT DW attending Marquita, PGY-1 - Date & Time Date: 04/10/17 Time: 07:45 <Kleber Farah - Last Filed: 04/10/17 11:16> CCU Objective - Vital Signs / Intake & Output Vital Signs (Last 4 hours): Vital Signs Temp Pulse Resp BP 04/10/17 10:00 114/51 L 04/10/17 09:59 74 20 04/10/17 09:01 77 33 H 132/59 L 04/10/17 09:00 83 28 H 04/10/17 08:00 97.3 F L 69 18 Intake and Output (Last 8hrs): Intake & Output 04/09/17 04/10/17 04/10/17 22:59 06:59 14:59 Intake Total 1010 1260 Output Total 950 500 Balance 60 760 Weight 99 lb 14.4 oz Intake: IV 685 1260 right forearm 685 1260 Oral 0 Blood Product 325 Output: Urine 950 500 Urine, Voided 950 500 Other: Voiding Method Bedpan Urinal Urinal # Voids Urine, Voided 3 # Bowel Movements 1 - Medications Active Medications: Active Medications Generic Name Dose Route Start Last Admin Trade Name Freq PRN Reason Stop Dose Admin Guaifenesin 100 mg 04/08/17 08:55 04/10/17 09:44 Robitussin PO 100 mg Q4H PRN Administration Cough Ceftriaxone Sodium 1 gm in 100 mls @ 100 mls/hr 04/07/17 00:50 04/10/17 09:31 Rocephin 1 Gram Ivpb IVPB 04/15/17 00:50 100 mls/hr DAILY JUANITA Administration Protocol Octreotide Acetate 1,250 mcg/ 252.5 mls @ 5.05 mls/hr 04/09/17 16:30 16:40 Dextrose IV 25 mcg/hr .Q24H JUANITA 5.05 mls/hr Protocol Administration 25 MCG/HR Acetaminophen 1,000 mg in 100 mls @ 400 mls/hr 04/10/17 00:49 04/10/17 01:04 Ofirmev IVPB 04/12/17 00:50 400 mls/hr Q6H PRN Administration fever Magnesium Sulfate/Dextrose 1 gm in 100 mls @ 100 mls/hr 04/10/17 10:09 10:25 Magnesium Sulfate 1 Gm/100 Ml D5w IVPB 04/10/17 11:08 100 mls/hr ONCE ONE Administration Lorazepam 2 mg 04/10/17 03:17 04/10/17 03:48 Ativan IVP 2 mg Q3H PRN Administration Agitation Protocol Ondansetron HCl 4 mg 04/07/17 00:43 Zofran Inj IVP Q6H PRN Nausea/Vomiting Pantoprazole Sodium 40 mg 04/09/17 22:00 04/10/17 09:31 Protonix Inj IVP 40 mg Q12 UJANITA Administration Sucralfate 1 gm 04/10/17 11:30 04/10/17 10:29 Carafate Oral Susp PO 1 gm 0630,1130,1630,2200 JUANITA Administration - Patient Studies Lab Studies: Lab Studies 04/10/17 04/10/17 04/09/17 Range/Units 06:30 06:30 09:45 WBC 11.7 H D (4.5-11.0) 10^3/ul RBC 3.21 L (3.5-6.1) 10^6/uL Hgb 9.4 L (14.0-18.0) g/dL Hct 28.7 L (42.0-52.0) % MCV 89.4 (80.0-105.0) fl MCH 29.3 (25.0-35.0) pg MCHC 32.8 (31.0-37.0) g/dl RDW 15.6 H (11.5-14.5) % Plt Count 115 L (120.0-450.0) 10^3/uL MPV 10.6 (7.0-11.0) fl Gran % 75.0 H (50.0-68.0) % Lymph % (Auto) 16.0 L (22.0-35.0) % [place] % (Auto) 6.1 H (1.0-6.0) % Eos % (Auto) 2.6 (1.5-5.0) % Baso % (Auto) 0.3 (0.0-3.0) % Gran # 8.79 H (1.4-6.5) Lymph # 1.9 (1.2-3.4) [place] # 0.7 H (0.1-0.6) Eos # 0.3 (0.0-0.7) Baso # 0.04 (0.0-2.0) K/mm3 Sodium 141 (132-148) mmol/L Potassium 3.5 L (3.6-5.0) mmol/L Chloride 115 H (98-107) mmol/L Carbon Dioxide 19 L (21-33) mmol/L Anion Gap 11 (10-20) BUN 9 (7-21) mg/dL Creatinine 0.6 (0.5-1.4) mg/dL Est GFR ( Amer) > 60 Est GFR (Non-Af Amer) > 60 Random Glucose 94 (70-110) mg/dL Calcium 7.3 L (8.4-10.5) mg/dL Phosphorus 2.8 (2.5-4.5) mg/dL Magnesium 1.7 (1.7-2.2) mg/dL Total Bilirubin 1.4 H (0.2-1.3) mg/dL AST 37 (17-59) U/L ALT 39 (7-56) U/L Alkaline Phosphatase 180 H (38-126) U/L Total Protein 5.2 L (5.8-8.3) g/dL Albumin 2.6 L (3.0-4.8) g/dL Globulin 2.6 gm/dL Albumin/Globulin Ratio 1.0 L (1.1-1.8) Blood Type AB POSITIVE Antibody Screen Negative Crossmatch See Detail BBK History Checked Patient has bt Laboratory Results - last 24 hr 04/09/17 04/10/17 04/10/17 09:45 06:30 06:30 WBC 11.7 H D RBC 3.21 L Hgb 9.4 L Hct 28.7 L MCV 89.4 MCH 29.3 MCHC 32.8 RDW 15.6 H Plt Count 115 L MPV 10.6 Gran % 75.0 H Lymph % (Auto) 16.0 L [place] % (Auto) 6.1 H Eos % (Auto) 2.6 Baso % (Auto) 0.3 Gran # 8.79 H Lymph # 1.9 [place] # 0.7 H Eos # 0.3 Baso # 0.04 Sodium 141 Potassium 3.5 L Chloride 115 H Carbon Dioxide 19 L Anion Gap 11 BUN 9 Creatinine 0.6 Est GFR ( Amer) > 60 Est GFR (Non-Af Amer) > 60 Random Glucose 94 Calcium 7.3 L Phosphorus 2.8 Magnesium 1.7 Total Bilirubin 1.4 H AST 37 ALT 39 Alkaline Phosphatase 180 H Total Protein 5.2 L Albumin 2.6 L Globulin 2.6 Albumin/Globulin Ratio 1.0 L Blood Type AB POSITIVE Antibody Screen Negative Crossmatch See Detail BBK History Checked Patient has bt Critical Care Progress Note - Nutrition Nutrition: Nutrition Category Date Time Status Liquid Diet [DIET] Diets 04/10/17 Breakfast Ordered Assessment/Plan - Assessment and Plan (Free Text) Plan: Patient seen and examined on rounds with resident, agree with note. Patient had fever last night 102.3, HD stable. Denies fever, chills, cough, chest pain, sob , WALDRON, dizziness, melena, abd pain. No other constitutional symptoms. Pt's HH stable, slight increase in WBC. Currently AAOx3, NAD. Recommend; - supp o2 - panculture, UA, UCX, Blood Cx, CXR - ID consult - Hold BP meds for now - Cont with Rocephin for SBP ppx - Anti-pyretics - cont PPI BID IV, Octreotide drip as per GI - follow up GI - monitor HH - maintain 2 large bore IVs - Carafate - DVT SCDs - cont care in MICU
--- NOTE | 2017-04-10 13:07 | RAD ---
HISTORY: cough COMPARISON: 04/06/2017 FINDINGS: LUNGS: There is peribronchial thickening and perihilar interstitial densities consistent with bronchitis PLEURA: No significant pleural effusion identified, no pneumothorax apparent. CARDIOVASCULAR: The heart is normal in size. OSSEOUS STRUCTURES: No significant abnormalities. VISUALIZED UPPER ABDOMEN: Normal. OTHER FINDINGS: None. IMPRESSION: Peribronchial thickening and perihilar interstitial densities consistent with bronchitis
[2017-04-10] MEDS ORDERED: Meropenem 1g/NS 100mL IVPB 100 ML IVPB SCH (15:15)
[2017-04-10] MEDS ORDERED: Vancomycin 1gm in NS 250ml 250 ML IVPB SCH (15:15)
[2017-04-10] MEDS: Octreotide 1,250 MCG in Dextrose 5% In Water 250 ML IV SCH ×2 (18:37→22:27)
[2017-04-10] MEDS: Vancomycin 1gm in NS 250ml 1 GM/250 ML BAG IVPB SCH (18:38)
[2017-04-10] MEDS: Budesonide 0.5 mg/2 ml Inhal Susp UD IH SCH (19:58)
[2017-04-10] MEDS: Albuterol-Ipratrop 3 mg / 0.5 (3 ml) UD IH SCH (19:58)
[2017-04-10 21:54] LABS: MEAN CELL VOLUME 89.9 fl (80.0-105.0); MEAN CORPUSCULAR HEMOGLOBIN 28.7 pg (25.0-35.0); MEAN CORPUSCULAR HGB CONC 31.9 g/dl (31.0-37.0); MEAN PLATELET VOLUME 11.2 fl (7.0-11.0); WHITE BLOOD COUNT 7.4 10^3/ul (4.5-11.0)
[2017-04-10 22:04] LABS: INR 1.15 (0.93-1.08); PARTIAL THROMBOPLASTIN TIME 32.3 Seconds (23.7-30.8)
[2017-04-10 22:08] LABS: ALB/GLOB RATIO 1.1 (1.1-1.8); ALKALINE PHOSPHATASE 217 U/L (38-126); ALT/SGPT 36 U/L (7-56); AST/SGOT 40 U/L (17-59); BILIRUBIN,TOTAL 1.2 mg/dL (0.2-1.3); BLOOD UREA NITROGEN 7 mg/dL (7-21); CALCIUM 7.9 mg/dL (8.4-10.5); CARBON DIOXIDE 19 mmol/L (21-33); CHLORIDE 112 mmol/L (98-107); GFR AFRICAN-AMERICAN > 60; GLUCOSE,RANDOM 142 mg/dL (70-110); POTASSIUM 3.6 mmol/L (3.6-5.0); SODIUM 141 mmol/L (132-148); TOTAL PROTEIN 6.2 g/dL (5.8-8.3)
[2017-04-10] MEDS: Meropenem 1g/NS 100mL IVPB 1 GM/100 ML PIGGYBACK IVPB SCH (22:32)
[2017-04-11] MEDS: Albuterol-Ipratrop 3 mg / 0.5 (3 ml) UD IH SCH ×4 (01:45→20:01)
--- NOTE | 2017-04-11 02:21 | CON ---
REASON FOR CONSULTATION: Admitted with GI bleed and varices, also has a chronic lung disease, may have sleep apnea syndrome. HISTORY OF PRESENT ILLNESS: This is a 71-year-old gentleman known to me from previous admissions, history of chronic obstructive lung disease, active smoker, history of alcohol abuse, claims recently did not use alcohol, history of fall with a hip fracture, history of upper and lower GI bleed in the past, comes in with bleed early to intensive care unit, seen by GI, was scoped yesterday and found to have variceal bleeds, presently on clear liquid diet, hungry wants to eat. Has some cough, short of breath with exertion. 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 ALLERGIES: NONE KNOWN. SOCIAL HISTORY: He is an active smoker. Claimed did not drink alcohol recently. MEDICATIONS: He is on Ativan 2 mg q. 3 hours p.r.n. for agitation, Carafate 1 g four times a day, doxycycline 100 mg twice a day, meropenem 1 g IV q. 8 hours. He is getting IV fluid, also getting Tylenol p.r.n. basis, Protonix 40 mg daily, Robitussin 100 mg q. 4 hours p.r.n., vancomycin 1 g IV q. 12 hours, Zofran p.r.n. basis. REVIEW OF SYSTEMS: No headache, no rhinitis. Sleepy and tired during the daytime. Admitted to have snoring. Hungry, wants to eat. No much abdominal pain at the present time. No melena. No leg pain. No leg swelling. PHYSICAL EXAMINATION: GENERAL: Lying in the bed, in no acute distress. VITAL SIGNS: Temperature is 98, heart rate is 75, respiratory rate is 20, blood pressure 126/70, pulse ox is 97% on nasal cannula. HEENT: Moist mucous membranes. Crowded airway. Mallampati score is 4. NECK: Supple. No JVD. LUNGS: Has a scattered rhonchi and few crackles. HEART: S1 and S2. ABDOMEN: Soft, nontender. No organomegaly. EXTREMITIES: No edema. NEUROLOGIC: Awake and alert. Follows simple commands. LABORATORY DATA: Reveal hemoglobin 9.2, hematocrit 28.7, WBC 11.7, and platelets are 115. Sodium 140, potassium 3.5, chloride 115, bicarbonate 19, BUN 9, creatinine 0.6, glucose 94. Calcium is 7.3, phosphorus is 2.8, magnesium is 1.7. AST 37, ALT 39, alkaline phosphatase is 180, albumin is 2.6. CAT scan of the chest shows consistent with bronchitis with thickening of bronchioles. IMPRESSION: 1. Chronic obstructive lung disease. 2. Active smoker. 3. History of pancreatitis. 4. Alcohol abuse. 5. Gastrointestinal bleeds with varices. 6. History of colonic polyp. 7. History of hip fracture. 8. Legally blind. PLAN: Spoke to nursing staff, also spoke to medical operations supervisor. The patient has no more nausea and vomiting, hungry and wants to eat. No melena. May start feeding. Add inhaled bronchodilator. Gastric prophylaxis, sequential compression device to lower extremity. Follow up labs in the morning. Thank you and we will follow with you. Theodore Atkins MD
[2017-04-11] MEDS: Vancomycin 1gm in NS 250ml 1 GM/250 ML BAG IVPB SCH (02:50)
[2017-04-11] MEDS: Sucralfate 1 gm/10 ml Oral Susp UD PO SCH ×4 (05:48→21:44)
[2017-04-11] MEDS: Meropenem 1g/NS 100mL IVPB 1 GM/100 ML PIGGYBACK IVPB SCH ×3 (05:48→21:45)
--- NOTE | 2017-04-11 07:09 | PN ---
DATE: SUBJECTIVE: The patient seen and examined at the bedside. In the unit, sleepy, arousable. Moving all 4 extremities. No focal deficits. No nausea, vomiting, diarrhea. No more episode of blood per rectum. Yesterday, went for endoscopy, found to have grade II varices. There was some contact bleeding from scope, contained. No recent hematemesis or hematuria or hematochezia. PHYSICAL EXAMINATION VITAL SIGNS: Temperature 97.3, pulse 69, respiratory rate 18, and blood pressure 104/50, pulse oximetry 94. HEENT: Head normocephalic and atraumatic. Eyes, PERRLA. Extraocular muscles are intact. Conjunctivae clear. Nose patent. Mucous membrane moist. NECK: Supple. No carotid bruits. No thyromegaly. CHEST: Bilaterally symmetrical. HEART: S1, S2 positive. LUNGS: Clear to auscultation. ABDOMEN: Soft. Bowel sounds positive. No organomegaly. EXTREMITIES: No edema, no cyanosis. NEUROLOGIC: The patient is awake and alert. Moving all 4 extremities. No focal deficits. LABORATORY DATA: White blood cells 11.7, hemoglobin 9.4, hematocrit 28.7, platelets 115. Sodium 141, potassium 3.5, BUN 9, creatinine 0.3, glucose 94. MEDICATIONS: Robitussin, Rocephin, dextrose, acetaminophen, magnesium, Ativan, Zofran, Protonix, Carafate. ASSESSMENT AND PLAN: The patient is a 71-year-old male with leukocytosis, anemia, thrombocytopenia, hypokalemia, hyperchloremia. The patient did have a temperature of 102 yesterday. Denies any abdominal pain. The patient is on Protonix IV 40 mg q. 12 hours, octreotide drip, Carafate liquid, we ordered followup H and H, history of severe anemia, status post 2 packs of RBC transfusion. History of cholelithiasis, started on liquid diet. Discussion done with Dr. Oropzea, The patient has a history of heavy smoking, bronchitis. Pulmonary consult called. Consider use of oxygen. Pancultures are done. ID consult called. Continue with Rocephin. Antipyretics. DVT prophylaxis with SCD. Continue care in the unit. We will follow up. Evie Ponce MD [facility] # [id number]
[2017-04-11] MEDS: Budesonide 0.5 mg/2 ml Inhal Susp UD IH SCH ×2 (07:20→20:01)
--- NOTE | 2017-04-11 11:08 | CP.CCUPN ---
<Nanette Juárez - Last Filed: 04/11/17 11:21> CCU Subjective - Physician Review Events Since Last Encounter (Free Text): 04/11/17 11:05 One episode of bloody diarrhea ovenright, refusing labs/meds overnight Subjective (Free Text): 04/09/17 10:23 Critical care progress note for Dr. Tamar Juárez, PGY-1 Pt S & E at bedside. Pt states he has not had any more BMs since overnight. Only complaint is diffuse body pruritis (chronic). Denies N/V/F/C, SOB, CP, ab pain, other complaints. 04/10/17 10:49 Critical care progress note for Dr. Tamar Juárez, PGY-1 Pt S & E at bedside. Pt without complaints overnight. Denies N/V/F/C, SOB, CP, ab pain, other complaints. 71M w/acute GI bleeding, re-admitted to ICU for 2 episodes of BRBPR now s/p EGD with bleeding varices w/banding x 2, 2 units pRBCs in during procedure, stable overnight 04/11/17 11:05 Critical care progress note for Dr. Kami Juárez, PGY-1 Pt S & E at bedside. Pt without complaints overnight, refusing to answer questions at bedside. Critical Care Time Spent (in minutes): 35 CCU Objective - Vital Signs / Intake & Output Intake and Output (Last 8hrs): Intake & Output 04/10/17 04/11/17 04/11/17 22:59 06:59 14:59 Intake Total 987.5 830 Output Total 400 Balance 987.5 430 Intake: IV 507.5 590 Right Upper arm 590 right hand 255 Oral 480 240 Output: Urine 400 Urine, Voided 400 Other: Voiding Method Diaper Urinal Urinal # Bowel Movements 3 1 - Physical Exam Head: Positive for: Atraumatic, Normocephalic Pupils: Positive for: Other (R pupil cloudy) Extroacular Muscles: Positive for: EOMI Conjunctiva: Positive for: Normal Ears: Positive for: Normal Mouth: Positive for: Moist Mucous Membranes Nose (External): Positive for: Atraumatic Neck: Positive for: Normal Range of Motion Respiratory/Chest: Positive for: Clear to Auscultation, Good Air Exchange. Negative for: Respiratory Distress, Accessory Muscle Use, Wheezes, Rales, Rhonchi Cardiovascular: Positive for: Regular Rate and Rhythm, Normal S1, S2 Abdomen: Positive for: Normal Bowel Sounds. Negative for: Tenderness, Distention, Peritoneal Signs, Guarding Upper Extremity: Positive for: Normal Inspection, NORMAL PULSES. Negative for: Cyanosis, Edema Lower Extremity: Positive for: Normal Inspection. Negative for: Edema Neurological: Positive for: GCS=15, CN II-XII Intact, Speech Normal Skin: Positive for: Warm, Dry, Rashes (over head), Normal Color Psychiatric: Positive for: Alert, Oriented x 3, Normal Insight, Normal Concentration - Medications Active Medications: Active Medications Generic Name Dose Route Start Last Admin Trade Name Freq PRN Reason Stop Dose Admin Albuterol/Ipratropium 3 ml 04/10/17 20:00 04/11/17 07:20 Duoneb 3 Mg/0.5 Mg (3 Ml) Ud IH 3 ml [id number] JUANITA Administration Budesonide 0.5 mg 04/10/17 20:00 04/11/17 07:20 Pulmicort Respules IH 0.5 mg [id number] JUANITA Administration Guaifenesin 100 mg 04/08/17 08:55 04/10/17 23:48 Robitussin PO 100 mg Q4H PRN Administration Cough Octreotide Acetate 1,250 mcg/ 252.5 mls @ 5.05 mls/hr 04/09/17 16:30 22:27 Dextrose IV 25 mcg/hr .Q24H JUANITA 5.05 mls/hr Protocol Administration 25 MCG/HR Doxycycline Hyclate 100 mg/ 100 mls @ 100 mls/hr 04/10/17 22:00 04/10/17 23: 41 Sodium Chloride IVPB 100 mls/hr Q12 JUANITA Administration Protocol Meropenem 1g/NS 100mL IVPB 1 gm in 100 mls @ 100 mls/hr 04/10/17 22:00 05:48 Meropenem 1g/Ns 100ml Ivpb IVPB 100 mls/hr Q8 JUANITA Administration Protocol Vancomycin HCl 1 gm in 250 mls @ 167 mls/hr 04/10/17 15:15 04/11/17 02:50 Vancomycin 1gm IVPB 167 mls/hr Q12H JUANITA Administration Protocol Lorazepam 2 mg 04/10/17 03:17 04/11/17 10:17 Ativan IVP 2 mg Q3H PRN Administration Agitation Protocol Ondansetron HCl 4 mg 04/07/17 00:43 Zofran Inj IVP Q6H PRN Nausea/Vomiting Pantoprazole Sodium 40 mg 04/09/17 22:00 04/11/17 10:16 Protonix Inj IVP 40 mg Q12 JUANITA Administration Sucralfate 1 gm 04/10/17 11:30 04/11/17 05:48 Carafate Oral Susp PO 1 gm 0630,1130,1630,2200 JUANITA Administration - Patient Studies Lab Studies: Microbiology Studies 04/10/17 13:05 Gram Stain - Final Sputum Lab Studies 04/10/17 04/10/17 04/10/17 Range/Units 21:45 21:45 21:45 WBC 7.4 D (4.5-11.0) 10^3/ul RBC 3.45 L (3.5-6.1) 10^6/uL Hgb 9.9 L (14.0-18.0) g/dL Hct 31.0 L (42.0-52.0) % MCV 89.9 (80.0-105.0) fl MCH 28.7 (25.0-35.0) pg MCHC 31.9 (31.0-37.0) g/dl RDW 16.0 H (11.5-14.5) % Plt Count 126 (120.0-450.0) 10^3/uL MPV 11.2 H (7.0-11.0) fl PT 12.4 H (9.9-11.8) Seconds INR 1.15 H (0.93-1.08) APTT 32.3 H (23.7-30.8) Seconds Sodium 141 (132-148) mmol/L Potassium 3.6 (3.6-5.0) mmol/L Chloride 112 H (98-107) mmol/L Carbon Dioxide 19 L (21-33) mmol/L Anion Gap 14 (10-20) BUN 7 (7-21) mg/dL Creatinine 0.7 (0.5-1.4) mg/dL Est GFR ( Amer) > 60 Est GFR (Non-Af Amer) > 60 Random Glucose 142 H (70-110) mg/dL Calcium 7.9 L (8.4-10.5) mg/dL Total Bilirubin 1.2 (0.2-1.3) mg/dL AST 40 (17-59) U/L ALT 36 (7-56) U/L Alkaline Phosphatase 217 H D (38-126) U/L Total Protein 6.2 (5.8-8.3) g/dL Albumin 3.2 (3.0-4.8) g/dL Globulin 3.0 gm/dL Albumin/Globulin Ratio 1.1 (1.1-1.8) Laboratory Results - last 24 hr 04/10/17 04/10/17 04/10/17 21:45 21:45 21:45 WBC 7.4 D RBC 3.45 L Hgb 9.9 L Hct 31.0 L MCV 89.9 MCH 28.7 MCHC 31.9 RDW 16.0 H Plt Count 126 MPV 11.2 H PT 12.4 H INR 1.15 H APTT 32.3 H Sodium 141 Potassium 3.6 Chloride 112 H Carbon Dioxide 19 L Anion Gap 14 BUN 7 Creatinine 0.7 Est GFR ( Amer) > 60 Est GFR (Non-Af Amer) > 60 Random Glucose 142 H Calcium 7.9 L Total Bilirubin 1.2 AST 40 ALT 36 Alkaline Phosphatase 217 H D Total Protein 6.2 Albumin 3.2 Globulin 3.0 Albumin/Globulin Ratio 1.1 Review of Systems - Review of Systems Systems not reviewed;Unavailable: Uncooperative All systems: reviewed and no additional remarkable complaints except - Constitutional Constitutional: absent: Fever, Chills - EENT Eyes: Other (blind in R eye) Ears: Decreased Hearing ([place]) Nose/Mouth/Throat: UNREMARKABLE Critical Care Progress Note - Prophylaxis GI Prophylaxis GI: PPI - Prophylaxis DVT Prophylaxis DVT: Not Indicated (contraindicated) - Nutrition Nutrition: Nutrition Category Date Time Status Liquid Diet [DIET] Diets 04/10/17 Breakfast Ordered Assessment/Plan - Assessment and Plan (Free Text) Assessment: 71M w/acute GI bleeding, re-admitted to ICU for 2 episodes of BRBPR, taken for EGD yesterday with variceal bleeidng, banding x2, 2 units pRBCs given in EGD 2 days ago, pt refusing blood draws/labs overnight, one episode of blood diarrhea overnight, however H/H stable- ok to transfer to tele Plan: Neuro AOx3 Hard of hearing Blind HOB to 30 degree Ativan PRN agitation CIWA protocol Uncooperative with interview questioning, cooperative with exam Monitor CVS Some hypotensive episodes overnight, not symptomatic Monitor Pulm Stable on RA Robitussin Duonebs PUlmicort Target SaO2>94% Pulm following GI Zofran Advanced to DCD Rocephin Protonix drip Octreotide drip Sulcralfate Ab U/S- Patent portal vein with hepatopetal flow. GI following- continue ocreotide drip, advance to FLD, monitor overnight urinating freely Monitor for bleeding Nephro Hypomagnesemia resolved Hypokalemia resolved Monitor MSK Monitor for skin break down ID Afebrile over last 24H Leukocytosis resolved, 7.4 from 11.7 Vanc Day 2 Merrem Day 2 Doxycycline Day 2 Tylenol PRN Monitor for SBP Heme Hgb 9.9 from 9.4- stable Hct 31 from 28.7 One episode of bloody diarrhea overnight Monitor GI/DVT ppx Contraindications to VTE ppx 2/2 bleeding Protonix drip SCDs Dispo Monitor for bleeding PT/OT Transfer to tele DW attending Marquita, PGY-1 - Date & Time Date: 04/11/17 Time: 07:15 <Greg Johnson - Last Filed: 04/11/17 15:14> CCU Objective - Vital Signs / Intake & Output Intake and Output (Last 8hrs): Intake & Output 04/11/17 04/11/17 04/11/17 06:59 14:59 22:59 Intake Total 830 Output Total 400 Balance 430 Weight 99 lb Intake: IV 590 Right Upper arm 590 Oral 240 Output: Urine 400 Urine, Voided 400 Other: Voiding Method Urinal Urinal # Bowel Movements 1 - Medications Active Medications: Active Medications Generic Name Dose Route Start Last Admin Trade Name Freq PRN Reason Stop Dose Admin Albuterol/Ipratropium 3 ml 04/10/17 20:00 04/11/17 13:33 Duoneb 3 Mg/0.5 Mg (3 Ml) Ud IH 3 ml [id number] JUANITA Administration Budesonide 0.5 mg 04/10/17 20:00 04/11/17 07:20 Pulmicort Respules IH 0.5 mg [id number] JUANITA Administration Guaifenesin 100 mg 04/08/17 08:55 04/10/17 23:48 Robitussin PO 100 mg Q4H PRN Administration Cough Octreotide Acetate 1,250 mcg/ 252.5 mls @ 5.05 mls/hr 04/09/17 16:30 22:27 Dextrose IV 25 mcg/hr .Q24H JUANITA 5.05 mls/hr Protocol Administration 25 MCG/HR Doxycycline Hyclate 100 mg/ 100 mls @ 100 mls/hr 04/10/17 22:00 04/10/17 23: 41 Sodium Chloride IVPB 100 mls/hr Q12 JUANITA Administration Protocol Meropenem 1g/NS 100mL IVPB 1 gm in 100 mls @ 100 mls/hr 04/10/17 22:00 13:30 Meropenem 1g/Ns 100ml Ivpb IVPB 100 mls/hr Q8 JUANITA Administration Protocol Vancomycin HCl 1 gm in 250 mls @ 167 mls/hr 04/10/17 15:15 04/11/17 02:50 Vancomycin 1gm IVPB 167 mls/hr Q12H JUANITA Administration Protocol Lorazepam 2 mg 04/10/17 03:17 04/11/17 10:17 Ativan IVP 2 mg Q3H PRN Administration Agitation Protocol Ondansetron HCl 4 mg 04/07/17 00:43 Zofran Inj IVP Q6H PRN Nausea/Vomiting Pantoprazole Sodium 40 mg 04/09/17 22:00 04/11/17 10:16 Protonix Inj IVP 40 mg Q12 JUANITA Administration Sucralfate 1 gm 04/10/17 11:30 04/11/17 13:31 Carafate Oral Susp PO 1 gm 0630,1130,1630,2200 JUANITA Administration - Patient Studies Lab Studies: Microbiology Studies 04/10/17 13:05 Gram Stain - Final Sputum Lab Studies 04/10/17 04/10/17 04/10/17 Range/Units 21:45 21:45 21:45 WBC 7.4 D (4.5-11.0) 10^3/ul RBC 3.45 L (3.5-6.1) 10^6/uL Hgb 9.9 L (14.0-18.0) g/dL Hct 31.0 L (42.0-52.0) % MCV 89.9 (80.0-105.0) fl MCH 28.7 (25.0-35.0) pg MCHC 31.9 (31.0-37.0) g/dl RDW 16.0 H (11.5-14.5) % Plt Count 126 (120.0-450.0) 10^3/uL MPV 11.2 H (7.0-11.0) fl PT 12.4 H (9.9-11.8) Seconds INR 1.15 H (0.93-1.08) APTT 32.3 H (23.7-30.8) Seconds Sodium 141 (132-148) mmol/L Potassium 3.6 (3.6-5.0) mmol/L Chloride 112 H (98-107) mmol/L Carbon Dioxide 19 L (21-33) mmol/L Anion Gap 14 (10-20) BUN 7 (7-21) mg/dL Creatinine 0.7 (0.5-1.4) mg/dL Est GFR ( Amer) > 60 Est GFR (Non-Af Amer) > 60 Random Glucose 142 H (70-110) mg/dL Calcium 7.9 L (8.4-10.5) mg/dL Total Bilirubin 1.2 (0.2-1.3) mg/dL AST 40 (17-59) U/L ALT 36 (7-56) U/L Alkaline Phosphatase 217 H D (38-126) U/L Total Protein 6.2 (5.8-8.3) g/dL Albumin 3.2 (3.0-4.8) g/dL Globulin 3.0 gm/dL Albumin/Globulin Ratio 1.1 (1.1-1.8) Laboratory Results - last 24 hr 04/10/17 04/10/17 04/10/17 21:45 21:45 21:45 WBC 7.4 D RBC 3.45 L Hgb 9.9 L Hct 31.0 L MCV 89.9 MCH 28.7 MCHC 31.9 RDW 16.0 H Plt Count 126 MPV 11.2 H PT 12.4 H INR 1.15 H APTT 32.3 H Sodium 141 Potassium 3.6 Chloride 112 H Carbon Dioxide 19 L Anion Gap 14 BUN 7 Creatinine 0.7 Est GFR ( Amer) > 60 Est GFR (Non-Af Amer) > 60 Random Glucose 142 H Calcium 7.9 L Total Bilirubin 1.2 AST 40 ALT 36 Alkaline Phosphatase 217 H D Total Protein 6.2 Albumin 3.2 Globulin 3.0 Albumin/Globulin Ratio 1.1 Critical Care Progress Note - Nutrition Nutrition: Nutrition Category Date Time Status Liquid Diet [DIET] Diets 04/10/17 Breakfast Ordered Attending/Attestation - Attestation I have personally seen and examined this patient.: Yes I have fully participated in the care of the patient.: Yes I have reviewed all pertinent clinical information: Yes Notes (Text): 04/11/17 15:12 71 yo male with portal hypertension and variceal bleed, s/p banding, now on octreotide and PPI. Hb stable, no overt bleeding. Abdo-not distended. will continue NPO, serial cbc, IVF, GI follow up, octreotide/PPI. Will advance diet in am, if uneventful. dvt/gi prophylaxis ccm time 40 min
[2017-04-11] MEDS: Octreotide 1,250 MCG in Dextrose 5% In Water 250 ML IV SCH (19:42)
--- NOTE | 2017-04-11 23:47 | PN ---
DATE: 04/11/2017 SUBJECTIVE: This patient was seen and evaluated in earlier. The patient did not have any further episodes of melena or bleeding per rectum. The patient was initially adamant to have the blood drawn. Discussed with the patient at length and finally agreed to have the blood drawn. PHYSICAL EXAMINATION VITAL SIGNS: Temperature becomes febrile, blood pressure 118/76, respiration is 22, O2 saturation 97%. HEENT: Atraumatic, anicteric. NECK: Supple. HEART: S1, S2 heard. LUNGS: Bilateral air entry present. ABDOMEN: Soft. There is no mass palpable. No tenderness. EXTREMITIES: No edema. No cyanosis. LABORATORY DATA: The patient refused again the blood draw. IMPRESSION: This is a 71-year-old patient with a cirrhosis of the liver; esophageal varices with bleeding, status post band ligation on 04/09/2017; history of ethyl alcohol; history esophageal ulcer, appears to be healed on octreotide drip; hemoglobin was stable. No further active bleeding, but refusing blood transfusion, not very cooperative. The patient also spiked the fever, on IV antibiotics meropenem, vancomycin and doxycycline. Other comorbidities include chronic obstructive pulmonary disease, dyslipidemia, history of colonic arteriovenous malformation. RECOMMENDATIONS: 1. Continue the octreotide drip. 2. Advanced the diet to full liquid diet. 3. We will discuss with the patient's family and try to convince him to be more cooperative to have the blood drawn and followup. Continue the Carafate and also Protonix. Follow up. Thank you very much for allowing me to participate in care of your patient. Deyanira Oropeza MD
[2017-04-12] MEDS: Albuterol-Ipratrop 3 mg / 0.5 (3 ml) UD IH SCH ×3 (01:31→14:06)
--- NOTE | 2017-04-12 01:39 | PN ---
PULMONARY PROGRESS NOTE DATE: 04/11/2017 REFERRING PHYSICIAN: Evie Ponce MD SUBJECTIVE: He is lying in the bed at 45 degrees. Son is at the bedside. He wants to eat solid food, hungry. No abdominal pain. No nausea. No vomiting. No diarrhea. No leg pain or leg swelling. OBJECTIVE: GENERAL: In no acute distress. VITAL SIGNS: Temperature is 98, heart rate is 88, respiratory rate is 20, blood pressure is 118/76, and pulse ox is 100% on room air. HEENT: Moist mucous membranes. Small oral cavity. NECK: Supple. No JVD. LUNGS: Scattered rhonchi with few wheezing. HEART: S1 and S2. ABDOMEN: Soft and nontender. No organomegaly. EXTREMITIES: No edema. NEUROLOGICAL: Awake, alert, and follows simple commands. He is legally blind. MEDICATIONS: He is on Ativan 1 mg q.3 hours p.r.n., Claritin 10 mg daily, albuterol and Atrovent nebulizer q.6 hours, Nicoderm patch daily, also getting potassium inhaled twice a day, Robitussin 100 mg q.4 hours p.r.n., vancomycin 1 g IV q.12 hours, vitamin B 100 mg daily, and Zofran p.r.n. LABORATORY DATA: Reviewed. No new lab is available since yesterday. Microbiology, blood culture, and sputum culture; there is no growth. IMPRESSION: 1. Chronic obstructive lung disease. 2. Active smoker. 3. History of pancreatitis. 4. Alcohol abuse. 5. Gastrointestinal bleed with varices. 6. History of colonic polyp. 7. History of hip fracture. 8. Legally blind. PLAN: I spoke to the patient's son at bedside. All the questions answered. Spoke to nursing staff. Advised to advance diet as tolerated. Bronchodilator, keep head at 45 degrees, gastric prophylaxis, DVT lower extremity, followup labs in the morning, and we will follow with you. Theodore Atkins MD
--- NOTE | 2017-04-12 01:46 | CON ---
DATE: 04/11/2017 LOCATION: The patient was seen earlier today in [facility], bed 1. CHIEF COMPLAINT: Weakness for several days. HISTORY OF PRESENT ILLNESS: This is a 71-year-old male with past medical history significant for upper and lower GI bleed, who was admitted with five bloody diarrhea and has been vomiting. This patient with chronic obstructive lung disease, cerebrovascular accident, blind, cataract, deafness, glaucoma, initially admitted with upper and lower GI bleed. The patient had a temperature of 102 yesterday. Infectious Disease consultation requested. The patient has been in the hospital for well over 4 days. 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 No abdominal pain now. There is fever. That is the reason for Infectious Disease consultation. He is up to 102. 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 PAST SURGICAL HISTORY: Significant for orthopedic surgery and glaucoma in both eyes, cataract surgery. ALLERGIES: THE PATIENT HAS NO KNOWN ALLERGIES. MEDICATIONS AT HOME: Reviewed. PHYSICAL EXAMINATION GENERAL: The patient is in bed, no acute distress. VITAL SIGNS: Temperature of 99, T-max was 102.3 yesterday, heart rate of 75, was up to 93 to 103 yesterday, respiratory rate of 24, blood pressure is 120/60. HEENT: Unremarkable. NECK: Supple. LUNGS: Decreased breath sounds. HEART: Normal S1, S2. ABDOMEN: Soft, nontender. LABORATORY EXAMINATION: Reveals a white count was up to 11,700 yesterday, platelets of 115. Coagulation is noted. Chemistries reveal the patient's BUN is 7, creatinine of 0.7. Microbiology is noted. Chest x-ray, bronchial thickening, perihilar interstitial densities consistent with bronchitis his note is reviewed the patient is afebrile for the last 24 hours. ASSESSMENT: This 71-year-old male with upper and lower GI bleed, chronic obstructive pulmonary disease, cerebrovascular accident, blindness, arteriovenous malformation in the colon, esophagitis, deafness, glaucoma, hyperlipidemia, history of pancreatitis, admitted with a gastrointestinal bleed, now with new fever of 102 and with bronchial sounds and tachycardia, most likely consistent with sepsis with healthcare associated pneumonia. PLAN: We will treat with meropenem and doxycycline and check on the pancultures and procalcitonin. The blood cultures are pending. We will order procalcitonin. We will write further recommendations and availability of urinalysis and urine culture also including a sputum culture. Grant Mckeon MD
[2017-04-12] MEDS: Vancomycin 1gm in NS 250ml 1 GM/250 ML BAG IVPB SCH (04:15)
[2017-04-12] MEDS: guaiFENesin 100 mg/5 ml Syrup UD PO PRN ×2 (05:13→13:31)
[2017-04-12] MEDS: Sucralfate 1 gm/10 ml Oral Susp UD PO SCH ×2 (05:40→11:30)
--- NOTE | 2017-04-12 05:40 | PN ---
DATE: SUBJECTIVE: The patient is seen and examined on the bedside in the unit, complaining about dry skin and itchiness, one episode of bloody diarrhea overnight that was black color. The patient is refusing labs, very noncompliant, urged to be compliant, only complaining about diffuse abdominal and body pruritus. No shortness of breath. No chest pain or palpitations. No headache. No dizziness. PHYSICAL EXAMINATION: VITAL SIGNS: Temperature 98.2, pulse 88, blood pressure 118/76, respiratory rate 18 , oxygenation 100%. HEENT: Head is normocephalic and atraumatic. Eyes, PERRLA. Extraocular muscles intact. Conjunctivae clear. Nose is patent. Mucous membrane moist. NECK: Supple. No carotid bruits. No JVD or thyromegaly. CHEST: Bilateral symmetrical. HEART: S1 and S2 positive. LUNGS: Clear to auscultation. ABDOMEN: Soft. Bowel sounds positive. No organomegaly. EXTREMITIES: No edema and no cyanosis. NEUROLOGICAL: The patient is awake and alert. Moving all 4 extremities. Focal deficit. MEDICATIONS: Ativan, Carafate, doxycycline, octreotide drip, Protonix, Robitussin, vancomycin. LABORATORY DATA: White blood cells 7.4, hemoglobin 9.9, hematocrit 31.0, and platelets 126. Sodium 141, potassium 3.6, BUN 7, creatinine 0.6. Alkaline phosphatase 217. ASSESSMENT AND PLAN: Mr. 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 We will give nicotine patch. We will add thiamine. Gastroenterology is on the case. Gastrointestinal and deep venous thrombosis prophylaxis. Repeat labs. We will follow. Evie Ponce MD JULIET
[2017-04-12] MEDS: Meropenem 1g/NS 100mL IVPB 1 GM/100 ML PIGGYBACK IVPB SCH (05:41)
[2017-04-12 05:56] VITALS: BP 101/55; RESP 18; TEMP 98.3; O2SAT 95
[2017-04-12] MEDS: Budesonide 0.5 mg/2 ml Inhal Susp UD IH SCH (08:09)
[2017-04-12 10:14] VITALS: PULSE 92
--- NOTE | 2017-04-12 10:26 | CP.PCM.PN ---
Subjective - Date & Time of Evaluation Date of Evaluation: 04/12/17 Time of Evaluation: 10:00 - Subjective Subjective: AMA Objective - Vital Signs/Intake and Output Vital Signs (last 24 hours): Temp Pulse Resp BP Pulse Ox 98.3 F 92 H 18 101/55 L 95 04/12/17 05:55 04/12/17 10:00 04/12/17 05:55 04/12/17 05:55 04/12/17 05:55 Intake and Output: 04/12/17 04/12/17 06:59 18:59 Intake Total 110 Output Total 50 Balance 60 - Medications Medications: Current Medications Albuterol/Ipratropium (Duoneb 3 Mg/0.5 Mg (3 Ml) Ud) 3 ml IH [id number] JUANITA Last Admin: 04/12/17 08:09 Dose: 3 ml Budesonide (Pulmicort Respules) 0.5 mg IH [id number] JUANITA Last Admin: 04/12/17 08:09 Dose: 0.5 mg Guaifenesin (Robitussin) 100 mg PO Q4H PRN PRN Reason: Cough Last Admin: 04/12/17 05:13 Dose: 100 mg Octreotide Acetate 1,250 mcg/ (Dextrose) 252.5 mls @ 5.05 mls/hr IV .Q24H JUANITA; 25 MCG/HR PRN Reason: Protocol Last Admin: 04/11/17 19:42 Dose: Not Given Doxycycline Hyclate 100 mg/ (Sodium Chloride) 100 mls @ 100 mls/hr IVPB Q12 JUANITA PRN Reason: Protocol Last Admin: 04/12/17 09:57 Dose: Not Given Meropenem 1g/NS 100mL IVPB (Meropenem 1g/Ns 100ml Ivpb) 1 gm in 100 mls @ 100 mls/hr IVPB Q8 JUANITA PRN Reason: Protocol Last Admin: 04/12/17 05:41 Dose: Not Given Vancomycin HCl (Vancomycin 1gm) 1 gm in 250 mls @ 167 mls/hr IVPB Q12H JUANITA PRN Reason: Protocol Last Admin: 04/12/17 04:15 Dose: Not Given Loratadine (Claritin) 10 mg PO DAILY JUANITA Lorazepam (Ativan) 1 mg IVP Q3H PRN; Protocol PRN Reason: Agitation Montelukast Sodium (Singulair) 10 mg PO HS [facility] Last Admin: 04/11/17 23:30 Dose: Not Given Nicotine (Nicoderm Cq) 1 patch TD DAILY [facility] Last Admin: 04/12/17 10:04 Dose: Not Given Ondansetron HCl (Zofran Inj) 4 mg IVP Q6H PRN PRN Reason: Nausea/Vomiting Pantoprazole Sodium (Protonix Inj) 40 mg IVP Q12 [facility] Last Admin: 04/12/17 09:56 Dose: Not Given Sucralfate (Carafate Oral Susp) 1 gm PO 0630,1130,1630,2200 [facility] Last Admin: 04/12/17 05:40 Dose: 1 gm Thiamine HCl (Vitamin B1 Tab) 100 mg PO DAILY [facility] - Labs Labs: 04/10/17 21:45 04/10/17 21:45 PT 12.4 Seconds (9.9-11.8) H 04/10/17 21:45 INR 1.15 (0.93-1.08) H 04/10/17 21:45 APTT 32.3 Seconds (23.7-30.8) H 04/10/17 21:45 - Constitutional Appears: Non-toxic, No Acute Distress, Unkempt, Chronically Ill - Head Exam Head Exam: ATRAUMATIC - Eye Exam Eye Exam: EOMI Additional comments: Legally Blind - Neck Exam Neck Exam: Full ROM, Normal Inspection - Respiratory Exam Respiratory Exam: NORMAL BREATHING PATTERN - Cardiovascular Exam Cardiovascular Exam: REGULAR RHYTHM - GI/Abdominal Exam GI & Abdominal Exam: Distended, Firm, Normal Bowel Sounds Additional comments: non-tender - Extremities Exam Extremities Exam: Full ROM, Normal Capillary Refill - Neurological Exam Neurological Exam: Alert, Awake, CN II-XII Intact, Oriented x3 Neuro motor strength exam: Left Upper Extremity: 5, Right Upper Extremity: 5, Left Lower Extremity: 5, Right Lower Extremity: 5 - Psychiatric Exam Psychiatric exam: Normal Affect, Normal Mood - Skin Skin Exam: Dry, Petechiae, Rash, Warm Assessment and Plan - Assessment and Plan (Free Text) Assessment: AAOx3, calm and cooperative appropriate affect, patient counseled/educated regarding risk factors associated with leaving against medical advise. Insole Taper [id number] Basnv utilized during consultation. RN instructed to do meds to beds, patient instructed to f/u with PMD in 1wk and instructed to return to ED/hospital if needed under any circumstance. Sandip Vaca and Janice notified. Plan: AMA documentation on chart
--- NOTE | 2017-04-13 09:56 | DS ---
CHIEF COMPLAINT: GI bleeding. HISTORY OF PRESENT ILLNESS: Mr. Esteban Carrion 71 years old male came to the hospital with history of alcohol abuse, heavy smoking, liver cirrhosis, esophageal varices, was having bleeding, coffee ground and melena. He said he had quit drinking. The patient has esophageal varices, history of esophagitis, gastritis, and blood pressure was low in 80s. No abdominal pain. No back pain. No dysuria. The patient was admitted and abdominal ultrasound was done. Endoscopy done by Dr. Oropeza. The patient has seen Dr. Mckeon because the patient started fever. ID consult called regarding antibiotics. He has history of COPD due to heavy smoking, Dr. Atkins saw that patient. Dr. Oropeza saw that patient. He has rapid response, the patient was transferred to medical floor. The patient was admitted to the unit, improved. Today, he decided to go against medical advice, try to convince him. Nurse practitioner, Mindy called me and she tells about the patient. The patient is mentally oriented, competent to make decision and he left against medical advice. Educational done, but still he wants to leave. PAST MEDICAL HISTORY: Hypertension, COPD, cataract, hearing impairment, esophageal varices, gastritis, duodenitis, history of GI bleeding, and status post blood transfusion. PAST SURGICAL HISTORY: Left hip repair. FAMILY HISTORY: Father and mother noncontributory. HABITS: Heavily smoking. Heavily drinking. REVIEW OF SYSTEMS: The patient was seen and examined early in the morning at the bedside, looking comfortable. No nausea, vomiting, or diarrhea. No hematuria or hematochezia. No headache. No dizziness. PHYSICAL EXAMINATION: VITAL SIGNS: Temperature 98.3, pulse 92, blood pressure 101/55, and respiratory rate 18. HEENT: Head is normocephalic and atraumatic. Eyes, PERRLA. Extraocular muscles intact. Conjunctivae clear. Nose patent. Mucus membrane moist. NECK: Supple. No carotid bruits. No JVD. No thyromegaly. CHEST: Bilaterally symmetrical. HEART: S1 and S2 positive. LUNGS: Clear to auscultation. ABDOMEN: Soft. Bowel sounds positive. No organomegaly. EXTREMITIES: No edema. No cyanosis. NEUROLOGIC: The patient is awake and alert. Moving all 4 extremities. No focal deficit. LABORATORY DATA: The patient is refusing everyday labs. We have old labs. White blood cell 7.4, hemoglobin 9.9, hematocrit 31.0 and platelets 126. Sodium 141, potassium 3.6, BUN 7, and creatinine 0.7. Random glucose 142, calcium 7.9. Alkaline phosphatase 217. ASSESSMENT AND PLAN: Mr. Esteban Carrion, 71 years old male with the leukocytosis, anemia, hyperchloremia, hyperglycemia, hypocalcemia, has chronic obstructive lung disease, active smoker, urged to quit, history of pancreatitis, urged to quit drinking, alcohol abuse, gastroesophageal reflux disease, gastrointestinal bleeding with varices, history of colonic polyp, history of hip fracture, legally blind. Dr. Oropeza did upper endoscopy. There was active bleeding varices. He did banding. Plan was to repeat endoscopy. The patient was getting treatment. He decided to leave against medical advice. The patient is oriented x3 and cooperative. Counseled, educated regarding to risk factors associated with leaving against medical advice. He speaks well in [place]ian, but still Mindy talked to him and utilized during the consultation, gun stock checker [id number]. The patient has to follow up with primary medical doctor in one week. He never came in my office coming in the hospital with bad condition. I appreciated Mindy's, nurse practitioner, help in documentation on the chart. Evie Ponce MD JULIET
== END 2017-04-12 14:40 | disposition left against medical advice (07) | DRG 432 ==
LOC: ED 20:24 → ERH 23:31 → CCU 04-07 01:34 → 5RNO 04-08 09:42 → CCU 04-09 05:04 → 2RSO 04-11 22:08
PROVIDERS: ADMIT Internal Medicine; ATTEND Internal Medicine
PROC: 30233N1 Transfusion of Nonautologous Red Blood Cells into Peripheral Vein, Percutaneous Approach (ICD-10-PCS; 2017-04-06)
PROC: 06L34CZ Occlusion of Esophageal Vein with Extraluminal Device, Percutaneous Endoscopic Approach (ICD-10-PCS; principal; 2017-04-09 13:15)
DX: K70.30 Alcoholic cirrhosis of liver without ascites (principal); I85.11 Secondary esophageal varices with bleeding; K76.6 Portal hypertension; D62 Acute posthemorrhagic anemia; J44.0 Chronic obstructive pulmonary disease with (acute) lower respiratory infection; E83.42 Hypomagnesemia; D50.0 Iron deficiency anemia secondary to blood loss (chronic); J40 Bronchitis, not specified as acute or chronic; E83.39 Other disorders of phosphorus metabolism; K44.9 Diaphragmatic hernia without obstruction or gangrene; K29.70 Gastritis, unspecified, without bleeding; H91.90 Unspecified hearing loss, unspecified ear; I10 Essential (primary) hypertension; F17.210 Nicotine dependence, cigarettes, uncomplicated; H40.9 Unspecified glaucoma; H26.9 Unspecified cataract; E87.6 Hypokalemia; F32.9 Major depressive disorder, single episode, unspecified; H54.41 Blindness, right eye, normal vision left eye; K80.20 Calculus of gallbladder without cholecystitis without obstruction; K55.20 Angiodysplasia of colon without hemorrhage; K21.0 Gastro-esophageal reflux disease with esophagitis; F10.10 Alcohol abuse, uncomplicated; E78.5 Hyperlipidemia, unspecified; Z86.73 Personal history of transient ischemic attack (TIA), and cerebral infarction without residual deficits; Z91.81 History of falling; Z86.010 Personal history of colon polyps

== ENCOUNTER 2017-04-13 03:33 | Inpatient (IN) | payer MEDICARE, MEDICAID ==
[2017-04-13 03:33] VITALS: BMI 19.5
[2017-04-13] MEDS ORDERED: cefTRIAXone 1 gm 1 GM/100 ML BAG IVPB STA (04:09)
--- NOTE | 2017-04-13 04:09 | ED PDOC ---
Arrival/HPI - General Historian: Patient, EMS - History of Present Illness Time/Duration: Prior to Arrival Quality: Unable to Describe Severity Level: Mild Activities at Onset: Rest Context: Home - General Chief Complaint: GI Problem Time Seen by Provider: 04/13/17 03:34 - History of Present Illness Narrative History of Present Illness (Text): 04/13/17 04:04 This is a 71 year old male with PMHx upper and lower GI bleeds, esophageal varices, alcohol and tobacco abuse who presented BIBA for episode of hematemesis. Per EMS, patient has been experiencing vomiting for about 1 week now, but earlier tonight was the first episode of blood within the vomit. Patient is both blind and hard of hearing. Patient has also been experiencing diarrhea for the past week as well. Patient is a poor historian but states that he is otherwise fine. Of note, patient had recent endoscopy on 04/09/17 which showed multiple bleeding varices. Two bands placed with incomplete eradication of varices. However, the bleeding had stopped by the end of the procedure. 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) - HEENT Hx HEENT Disorder: Yes Hx Blind: Yes Hx Cataracts: Yes (both eyes, glaucoma in the left eye) Hx Deafness: Yes Hx Glaucoma: Yes - Renal Hx Renal Disorder: No - Endocrine/Metabolic Hx Diabetes Mellitus Type 2: No (denies) - Hematological/Oncological Hx Blood Transfusions: Yes (10/30/16) Hx Blood Transfusion Reaction: No - Integumentary Hx Dermatological Disorder: No - Musculoskeletal/Rheumatological Hx Musculoskeletal Disorders: Yes (uses cane) Hx Falls: Yes Hx Fractures: Yes Hx Unsteady Gait: Yes - Gastrointestinal Hx Gastrointestinal Disorders: Yes (GI bleed with transfusions) - Genitourinary/Gynecological Hx Genitourinary Disorders: No - Psychiatric Hx Psychophysiologic Disorder: Yes (etoh, smoker) Hx Depression: Yes Hx Substance Use: No - Past Surgical History Past Surgical History: No Previous - Surgical History Hx Orthopedic Surgery: Yes - Anesthesia Hx Anesthesia Reactions: No Hx Malignant Hyperthermia: No - Suicidal Assessment Feels Threatened In Home Enviroment: No Family/Social History - Physician Review Nursing Documentation Reviewed: Yes Family/Social History: No Known Family HX Smoking Status: Heavy Smoker > 10 Cigarettes Daily Hx Alcohol Use: Yes Hx Substance Use: No Hx Substance Use Treatment: No Allergies/Home Meds Allergies/Adverse Reactions: Allergies No Known Allergies Allergy (Verified 10/29/16 19:07) Home Medications: Home Meds Medication Instructions Recorded Confirmed Unobtainable 04/06/17 04/13/17 Review of Systems - Review of Systems Constitutional: Normal Eyes: Normal ENT: Normal Respiratory: Normal Cardiovascular: Normal Gastrointestinal: Abdominal Pain (right sided), Diarrhea, Vomiting, Hematemesis Genitourinary Male: Normal Musculoskeletal: Normal Skin: Normal Neurological: Normal Endocrine: Normal Hemo/Lymphatic: Normal Psychiatric: Normal Physical Exam Vital Signs Reviewed: Yes Temperature: Febrile Blood Pressure: Hypotensive Pulse: Regular Respiratory Rate: Normal Appearance: Positive for: Ill-Appearing (chronically ill-appearing) Pain Distress: Mild Mental Status: Positive for: Alert and Oriented X 3 - Systems Exam Head: Present: Atraumatic, Normocephalic Pupils: Present: PERRL Extroacular Muscles: Present: Other (patient blind unable to follow directions) Conjunctiva: Present: Normal Mouth: Present: Moist Mucous Membranes Neck: Present: Normal Range of Motion Respiratory/Chest: Present: Clear to Auscultation, Good Air Exchange. No: Accessory Muscle Use Cardiovascular: Present: Normal S1, S2, Tachycardic Abdomen: Present: Tenderness (right upper quadrant), Distention, Normal Bowel Sounds, Guarding, Other (firm abdomen but not rigid) Rectal: Present: Other (FOBT negative. Stool light brown/yellow colored). No: Occult Blood, Gross Blood, Melena, Hemorrhoids Upper Extremity: Present: NORMAL PULSES. No: Edema Lower Extremity: Present: NORMAL PULSES. No: Edema, CALF TENDERNESS Neurological: Present: GCS=15, CN II-XII Intact Skin: Present: Warm, Dry. No: Rashes Psychiatric: Present: Alert, Oriented x 3 Medical Decision Making - Lab Interpretations I have reviewed the lab results: Yes ED Course and Treatment: 04/13/17 04:27 CBC, CMP, Coag, Lipase, EKG, Portable CXR, UA, urine cultures, Type and Screen, CT abdomen/pelvis with IV contrast Octreotide drip, Protonix 80 mg IV, Rocephin 1 gm IV 04/13/17 06:34 CT abdomen/pelvis with IV contrast FINDINGS: There are small bilateral pleural effusions. There are bilateral lower lung dense infiltrates. The liver is nodular supportive of cirrhosis. Spleen is prominent. There is ascites increased slightly from prior. Cholelithiasis. The gallbladder wall does not appear thickened. The spleen and pancreas and kidneys are normal. The peripancreatic stranding seen on prior is no longer present. The ascites surrounding the bowel somewhat limits evaluation however there appears to be mild wall thickening within the ascending and transverse colon and thickened small bowel loops in the left upper quadrant with prominent folds. Findings suggest enteritis. A normal appendix is identified coronal images 42 through 52. Hardware in the left femur. IMPRESSION: Ascites increased since prior. Cirrhosis similar to prior. Cholelithiasis. Scattered areas of bowel wall thickening suggest mild enteritis. Small bilateral pleural effusions new since prior. Lower lung infiltrates new since prior. Spoken with Dr. Ponce on the phone at 06:30 who agrees for admission with GI consult to Dr. Oropeza. (Dennis Daniel) Seen and examined with resident. 71 y/o M p/w GI bleed. On exam, abdomen distended. No active bleeding in ED. (Joao Lambert) - Lab Interpretations Lab Results: 04/13/17 04:00 04/13/17 04:00 Lab Results 04/13/17 04:00: Blood Type AB POSITIVE, Antibody Screen Negative, BBK History Checked Patient has bt 04/13/17 04:00: Sodium 142, Potassium 3.7, Chloride 106, Carbon Dioxide 25, Anion Gap 15, BUN 6 L, Creatinine 0.6, Est GFR ( Amer) > 60, Est GFR (Non -Af Amer) > 60, Random Glucose 115 H, Calcium 8.2 L, Total Bilirubin 1.9 H, AST 61 H D, ALT 41, Alkaline Phosphatase 217 H, Total Protein 6.4, Albumin 3.4, Globulin 3.0, Albumin/Globulin Ratio 1.1, Lipase 33 04/13/17 04:00: PT 13.4 H, INR 1.24 H, APTT 32.4 H 04/13/17 04:00: WBC 19.5 H D, RBC 3.67, Hgb 10.7 L, Hct 33.0 L, MCV 89.9, MCH 29.2, MCHC 32.4, RDW 15.9 H, Plt Count 179, MPV 11.6 H, Gran % 83.1 H, Lymph % ( Auto) 8.0 L, [place] % (Auto) 7.1 H, Eos % (Auto) 1.6, Baso % (Auto) 0.2, Gran # 16.16 H, Lymph # 1.6, [place] # 1.4 H, Eos # 0.3, Baso # 0.04 - RAD Interpretation Radiology Orders: 04/13/17 04:01 CHEST PORTABLE [RAD] Stat 04/13/17 04:19 ABDOMEN & PELVIS [ABD & PELVIS IV CONTRAST ONLY] [CT] Stat - Medication Orders Current Medication Orders: Octreotide Acetate 50 mcg/ (Sodium Chloride) 51 mls @ 102 mls/hr IV Q8 JUANITA PRN Reason: Protocol Last Admin: 04/13/17 05:15 Dose: 102 mls/hr Sodium Chloride (Sodium Chloride 0.9%) 1,000 mls @ 100 mls/hr IV .Q10H JUANITA Ondansetron HCl (Zofran Inj) 4 mg IVP Q6H PRN PRN Reason: Nausea/Vomiting Discontinued Medications Ceftriaxone Sodium (Rocephin 1 Gram Ivpb) 1 gm in 100 mls @ 200 mls/hr IVPB STAT STA PRN Reason: Protocol Stop: 04/13/17 04:38 Last Admin: 04/13/17 04:29 Dose: 200 mls/hr Iohexol (Omnipaque 350 100 Ml) Confirm Administered Dose 350 mg .ROUTE .STK-MED ONE Stop: 04/13/17 05:13 Pantoprazole Sodium (Protonix Inj) 80 mg IVP STAT STA Stop: 04/13/17 04:10 Last Admin: 04/13/17 04:29 Dose: 80 mg Disposition/Present on Arrival - Present on Arrival Any Indicators Present on Arrival: No History of DVT/PE: No History of Uncontrolled Diabetes: No Urinary Catheter: No History of Decub. Ulcer: No History Surgical Site Infection Following: Orthopedic Procedures - Disposition Have Diagnosis and Disposition been Completed?: Yes Disposition Time: 06:30 - Disposition Diagnosis: GI bleed Disposition: HOSPITALIZED Patient Problems: Current Active Problems Problem Status Onset GI bleed Acute Condition: FAIR Referrals: Cody Varma MD [Primary Care Provider] - Follow up with primary Forms: [employer] [facility] ([place])
[2017-04-13 04:36] LABS: BASO # 0.04 K/mm3 (0.0-2.0); BASO % 0.2 % (0.0-3.0); EOS # 0.3 (0.0-0.7); EOS % 1.6 % (1.5-5.0); GRAN # 16.16 (1.4-6.5); GRAN % 83.1 % (50.0-68.0); LYMPH # 1.6 (1.2-3.4); MEAN CELL VOLUME 89.9 fl (80.0-105.0); MEAN CORPUSCULAR HEMOGLOBIN 29.2 pg (25.0-35.0); MEAN CORPUSCULAR HGB CONC 32.4 g/dl (31.0-37.0); MEAN PLATELET VOLUME 11.6 fl (7.0-11.0); MONO # 1.4 (0.1-0.6); MONO % 7.1 % (1.0-6.0); RED CELL DISTRIBUTION WIDTH 15.9 % (11.5-14.5); WHITE BLOOD COUNT 19.5 10^3/ul (4.5-11.0)
[2017-04-13 04:44] LABS: INR 1.24 (0.93-1.08); PARTIAL THROMBOPLASTIN TIME 32.4 Seconds (23.7-30.8)
[2017-04-13 04:56] LABS: ALB/GLOB RATIO 1.1 (1.1-1.8); ALKALINE PHOSPHATASE 217 U/L (38-126); ALT/SGPT 41 U/L (7-56); AST/SGOT 61 U/L (17-59); BILIRUBIN,TOTAL 1.9 mg/dL (0.2-1.3); BLOOD UREA NITROGEN 6 mg/dL (7-21); CALCIUM 8.2 mg/dL (8.4-10.5); CARBON DIOXIDE 25 mmol/L (21-33); CHLORIDE 106 mmol/L (98-107); GFR AFRICAN-AMERICAN > 60; GLUCOSE,RANDOM 115 mg/dL (70-110); LIPASE 33 U/L (23-300); POTASSIUM 3.7 mmol/L (3.6-5.0); SODIUM 142 mmol/L (132-148); TOTAL PROTEIN 6.4 g/dL (5.8-8.3)
[2017-04-13] MEDS ORDERED: Iohexol 350 MG/100 ML VIAL ONE (05:12)
--- NOTE | 2017-04-13 06:24 | CT ---
EXAM: CT Abdomen and Pelvis With Intravenous Contrast EXAM DATE/TIME: 04/13/2017 4:19 AM CLINICAL HISTORY: 71 years old, male; Pain; Abdominal pain TECHNIQUE: Axial computed tomography images of the abdomen and pelvis with intravenous contrast. All CT scans at this facility use one or more dose reduction techniques, viz.: automated exposure control; ma/kV adjustment per patient size (including targeted exams where dose is matched to indication; i.e. head); or iterative reconstruction technique. Coronal and sagittal reformatted images were created and reviewed. CONTRAST: 100 mL of [id number] administered intravenously. COMPARISON: CT - ABD PELVIS PO CONTRAST ONLY 10/30/2016 5:29:58 PM FINDINGS: There are small bilateral pleural effusions. There are bilateral lower lung dense infiltrates. The liver is nodular supportive of cirrhosis. Spleen is prominent. There is ascites increased slightly from prior. Cholelithiasis. The gallbladder wall does not appear thickened. The spleen and pancreas and kidneys are normal. The peripancreatic stranding seen on prior is no longer present. The ascites surrounding the bowel somewhat limits evaluation however there appears to be mild wall thickening within the ascending and transverse colon and thickened small bowel loops in the left upper quadrant with prominent folds. Findings suggest enteritis. A normal appendix is identified coronal images 42 through 52. Hardware in the left femur. IMPRESSION: Ascites increased since prior. Cirrhosis similar to prior. Cholelithiasis. Scattered areas of bowel wall thickening suggest mild enteritis. Small bilateral pleural effusions new since prior. Lower lung infiltrates new since prior.
[2017-04-13] MEDS: Sodium Chloride 0.9% 1,000 ML IV SCH ×2 (06:57→17:02)
--- NOTE | 2017-04-13 10:47 | RAD ---
HISTORY: vomiting COMPARISON: 04/10/2017 FINDINGS: LUNGS: Prominent interstitial markings. No focal consolidation PLEURA: No significant pleural effusion identified, no pneumothorax apparent. CARDIOVASCULAR: Normal. OSSEOUS STRUCTURES: No significant abnormalities. VISUALIZED UPPER ABDOMEN: Normal. OTHER FINDINGS: None. IMPRESSION: Prominent interstitial markings. No focal consolidation
[2017-04-13] MEDS ORDERED: Pneumococcal 23-Valent Vaccine IM ONE (13:45)
[2017-04-13] MEDS: Cefepime 1gm in NS 100ml 1 GM/100 ML BAG IVPB SCH (15:47)
--- NOTE | 2017-04-13 19:24 | CARD ---
APPROVED REPORT EKG Measurement Heart [id number] <Conclusion> Normal sinus rhythm Low voltage QRS Septal infarct, age undetermined Abnormal ECG
[2017-04-13] MEDS: Albuterol-Ipratrop 3 mg / 0.5 (3 ml) UD IH SCH (19:43)
--- NOTE | 2017-04-13 20:48 | CON ---
DATE: 04/13/2017 PULMONARY CONSULTATION REFERRING PHYSICIAN: Evie Ponce MD REASON FOR CONSULT: Chronic obstructive lung disease, has a pleural effusion, GI bleed. HISTORY OF PRESENT ILLNESS: This is a 71-year-old gentleman with chronic obstructive lung disease, active smoker, history of alcohol abuse, cirrhotic liver, varices, upper GI bleed, legally blind, who signed against medical advice just day before or so, brought in back by the EMS. According to EMS, he was vomiting and had hematemesis. Presently lying in the bed, complaining about shortness of breath, abdominal discomfort. No leg pain. No swelling. PAST MEDICAL HISTORY: Chronic obstructive lung disease, active smoker, esophageal varices with upper GI bleed, cirrhotic liver, legally blind. FAMILY HISTORY: No significant cardiopulmonary disease reported. SOCIAL HISTORY: He is an active smoker. Stopped alcohol recently. ALLERGIES: NONE KNOWN. MEDICATIONS: He is on octreotide, also on IV fluid of normal saline 100 mL per/hour and Zofran on a p.r.n. basis. REVIEW OF SYSTEMS: No headache. No rhinitis. Has some cough and shortness of breath. No chest pain. Has abdominal pain, nausea. No leg pain. No leg swelling. PHYSICAL EXAMINATION: GENERAL: Lying in the bed, in mild distress secondary to pain and shortness of breath. VITAL SIGNS: Temperature is 100.4, heart rate is 91, respiratory rate is 20, blood pressure 120/60, pulse ox is 97% on nasal cannula. HEENT: Small oral cavity. Crowded airway. NECK: Supple. No JVD. LUNGS: Have decreased breath sounds at the bases with some crackles, expiratory with some wheezing. HEART: S1 and S2. ABDOMEN: Positive bowel sounds. Diffuse tenderness. EXTREMITIES: There is no edema. NEUROLOGIC: Awake and alert. Follows simple commands. LABORATORY DATA: Shows hemoglobin 10.7, hematocrit 33.0, WBC 19.5, and platelets are 179. INR is 1.24, PTT 32. Sodium 142, potassium 3.7, chloride 106, bicarbonate 25, BUN 6, creatinine is 0.6, glucose 115, calcium is 8.2. Total bilirubin 1.9, AST 61, ALT 41, alkaline phosphatase is 217, albumin is 3.4. PET/CT of the abdomen and pelvis that shows ascites, which is increased from prior study, cirrhotic liver, cholelithiasis, scattered areas of bowel wall thickening suggestive of enteritis, small bilateral pleural effusion, pulmonary infiltrate. IMPRESSION AND PLAN: Chronic obstructive lung disease, pleural effusion, pancreatitis, ascites, gastrointestinal bleed, esophageal varices. Patient is urged to stop smoking. We will place him on NicoDerm patch daily, Protonix 40 mg IV daily, Zestril , Solu-Medrol 40 mg q. 12 hours. Follow up with CBC and CMP. Keep n.p.o. for now. GI consult. We will follow with you. Theodore Atkins MD
[2017-04-13] MEDS: MethylPREDNISolone 40 mg Vial IVP SCH (21:17)
--- NOTE | 2017-04-14 01:26 | CP.PCM.PN ---
Subjective - Date & Time of Evaluation Date of Evaluation: 04/14/17 Time of Evaluation: 01:20 - Subjective Subjective: Patient was seen at bedside. He had complaint of cough and itching. No other complaints now. Cough in non productive. Itching is all over the body. Denies fever, chills, sob, wheezing. Is hard of hearing. Medical record was reviewed. This 71 year old male was admitted Has PMH of esophageal HTN, COPD, CVA, DM II, deafness, glaucoma, varices, GI bleeding, alcohol abuse, tobacco abuse, non compliance, depression, blood transfusion,blindness , cataract. Objective - Vital Signs/Intake and Output Vital Signs (last 24 hours): Temp Pulse Resp BP Pulse Ox 99.6 F 86 19 125/61 97 04/14/17 00:01 04/14/17 00:01 04/14/17 00:01 04/14/17 00:01 04/13/17 07:17 - Medications Medications: Current Medications Albuterol/Ipratropium (Duoneb 3 Mg/0.5 Mg (3 Ml) Ud) 3 ml IH [id number] [facility] Last Admin: 04/13/17 19:43 Dose: 3 ml Octreotide Acetate 50 mcg/ (Sodium Chloride) 51 mls @ 102 mls/hr IV Q8 JUANITA PRN Reason: Protocol Last Admin: 04/13/17 21:17 Dose: 102 mls/hr Sodium Chloride (Sodium Chloride 0.9%) 1,000 mls @ 100 mls/hr IV .Q10H JUANITA Last Admin: 04/13/17 17:02 Dose: 100 mls/hr Cefepime HCl (Maxipime 1gm) 1 gm in 100 mls @ 100 mls/hr IVPB Q24H JUANITA PRN Reason: Protocol Last Admin: 04/13/17 15:47 Dose: 100 mls/hr Methylprednisolone (Solu-Medrol) 20 mg IVP Q12 JUANITA Last Admin: 04/13/17 21:17 Dose: 20 mg Nicotine (Nicoderm Cq) 1 patch TD DAILY [facility] Ondansetron HCl (Zofran Inj) 4 mg IVP Q6H PRN PRN Reason: Nausea/Vomiting Pantoprazole Sodium (Protonix Inj) 40 mg IVP DAILY [facility] Thiamine HCl (Vitamin B1 Tab) 100 mg PO DAILY [facility] - Labs Labs: PT 13.4 Seconds (9.9-11.8) H 04/13/17 04:00 INR 1.24 (0.93-1.08) H 04/13/17 04:00 APTT 32.4 Seconds (23.7-30.8) H 04/13/17 04:00 Most Recent Lab Values WBC 19.5 10^3/ul (4.5-11.0) H D 04/13/17 04:00 RBC 3.67 10^6/uL (3.5-6.1) 04/13/17 04:00 Hgb 10.7 g/dL (14.0-18.0) L 04/13/17 04:00 Hct 33.0 % (42.0-52.0) L 04/13/17 04:00 MCV 89.9 fl (80.0-105.0) 04/13/17 04:00 MCH 29.2 pg (25.0-35.0) 04/13/17 04:00 MCHC 32.4 g/dl (31.0-37.0) 04/13/17 04:00 RDW 15.9 % (11.5-14.5) H 04/13/17 04:00 Plt Count 179 10^3/uL (120.0-450.0) 04/13/17 04:00 MPV 11.6 fl (7.0-11.0) H 04/13/17 04:00 Gran % 83.1 % (50.0-68.0) H 04/13/17 04:00 Lymph % (Auto) 8.0 % (22.0-35.0) L 04/13/17 04:00 Clinch % (Auto) 7.1 % (1.0-6.0) H 04/13/17 04:00 Eos % (Auto) 1.6 % (1.5-5.0) 04/13/17 04:00 Baso % (Auto) 0.2 % (0.0-3.0) 04/13/17 04:00 Gran # 16.16 (1.4-6.5) H 04/13/17 04:00 Lymph # 1.6 (1.2-3.4) 04/13/17 04:00 Clinch # 1.4 (0.1-0.6) H 04/13/17 04:00 Eos # 0.3 (0.0-0.7) 04/13/17 04:00 Baso # 0.04 K/mm3 (0.0-2.0) 04/13/17 04:00 PT 13.4 Seconds (9.9-11.8) H 04/13/17 04:00 INR 1.24 (0.93-1.08) H 04/13/17 04:00 APTT 32.4 Seconds (23.7-30.8) H 04/13/17 04:00 Sodium 142 mmol/L (132-148) 04/13/17 04:00 Potassium 3.7 mmol/L (3.6-5.0) 04/13/17 04:00 Chloride 106 mmol/L (98-107) 04/13/17 04:00 Carbon Dioxide 25 mmol/L (21-33) 04/13/17 04:00 Anion Gap 15 (10-20) 04/13/17 04:00 BUN 6 mg/dL (7-21) L 04/13/17 04:00 Creatinine 0.6 mg/dL (0.5-1.4) 04/13/17 04:00 Est GFR ( Amer) > 60 04/13/17 04:00 Est GFR (Non-Af Amer) > 60 04/13/17 04:00 Random Glucose 115 mg/dL (70-110) H 04/13/17 04:00 Calcium 8.2 mg/dL (8.4-10.5) L 04/13/17 04:00 Total Bilirubin 1.9 mg/dL (0.2-1.3) H 04/13/17 04:00 AST 61 U/L (17-59) H D 04/13/17 04:00 ALT 41 U/L (7-56) 04/13/17 04:00 Alkaline Phosphatase 217 U/L (38-126) H 04/13/17 04:00 Total Protein 6.4 g/dL (5.8-8.3) 04/13/17 04:00 Albumin 3.4 g/dL (3.0-4.8) 04/13/17 04:00 Globulin 3.0 gm/dL 04/13/17 04:00 Albumin/Globulin Ratio 1.1 (1.1-1.8) 04/13/17 04:00 Lipase 33 U/L (23-300) 04/13/17 04:00 Blood Type AB POSITIVE 04/13/17 04:00 Antibody Screen Negative 04/13/17 04:00 BBK History Checked Patient has bt 04/13/17 04:00 - Constitutional Appears: Well, No Acute Distress - Head Exam Head Exam: ATRAUMATIC, NORMAL INSPECTION, NORMOCEPHALIC - Eye Exam Additional comments: Blind. - ENT Exam Additional comments: Left ear deafness. - Neck Exam Neck Exam: Normal Inspection - Respiratory Exam Respiratory Exam: NORMAL BREATHING PATTERN - Cardiovascular Exam Cardiovascular Exam: absent: JVD - GI/Abdominal Exam GI & Abdominal Exam: absent: Distended - Rectal Exam Rectal Exam: Deferred - Exam Additional comments: Deafness. - Extremities Exam Extremities Exam: Normal Inspection - Back Exam Back Exam: NORMAL INSPECTION - Neurological Exam Neurological Exam: Alert, Oriented x3 - Psychiatric Exam Psychiatric exam: Normal Affect, Normal Mood - Skin Skin Exam: Normal Color Assessment and Plan - Assessment and Plan (Free Text) Assessment: Cough Bronchitis. Skin rash. COPD. DM II. HTN. Deafness. Glaucoma. Blindness. Plan: Robitussin 100 mg PO Q4H prn. Benadryl 25 mg PO stat. Continue present management.
[2017-04-14] MEDS: guaiFENesin 100 mg/5 ml Syrup UD PO PRN ×3 (01:39→18:04)
[2017-04-14] MEDS: Albuterol-Ipratrop 3 mg / 0.5 (3 ml) UD IH SCH ×4 (02:07→19:36)
--- NOTE | 2017-04-14 02:14 | HP ---
CHIEF COMPLAINT: Blood in the vomiting. HISTORY OF PRESENT ILLNESS: Mr. Esteban Carrion is a 71-year-old male with past medical history of lower GI bleeding, esophageal varices, heavy smoking, drinking, yesterday left against medical advice from [facility], now came back overnight due to hematemesis. The patient has been vomiting for about 1 day, now brought blood with that. The patient is blind and hard of hearing and having diarrhea also. The patient is poor historian. The patient has recent endoscopy done on 04/09/2017 which showed multiple bleeding varices and banding was done by Dr. Oropeza. Two bands placed with incomplete eradication of varices. Plan was to follow up endoscopy but the patient left against medical advice. PAST MEDICAL HISTORY: Hypertension, COPD, history of CVA, blind, cataract, deafness, glaucoma, diabetes, falls with fractures, unsteady gait, history of blood transfusion, history of alcohol abuse, depression. FAMILY HISTORY: Father and mother noncontributory. HABITS: Smoking: Yes, heavily. Alcohol: Yes, binging. Substance abuse: No. ALLERGIES: NO KNOWN DRUG ALLERGY. HOME MEDICATIONS: Unobtainable. REVIEW OF SYSTEMS: The patient was examined on the bedside in the room, complaining of little bit abdominal pain, diarrhea, vomiting, hematemesis. Otherwise, no shortness of breath. No headache, no dizziness. PHYSICAL EXAMINATION: VITAL SIGNS: Temperature 97.1, pulse 98, respiratory rate 19, blood pressure 120/71. HEENT: Head; normocephalic and atraumatic. Eyes: PERRLA. Extraocular muscles intact. Conjunctivae clear. Nose is patent. Mucous membranes moist. NECK: Supple. No carotid bruits, JVD or thyromegaly. CHEST: Bilaterally symmetrical. HEART: S1 and S2 positive. LUNGS: Clear to auscultation. ABDOMEN: Soft. Bowel sounds positive. No organomegaly. EXTREMITIES: No edema and no cyanosis. NEUROLOGIC: The patient is awake and alert. Moving all four extremities. No focal deficits. LABORATORY DATA: White blood cell 19.5, hemoglobin 10.7, hematocrit 33.0, and platelets 179. Sodium 142, potassium 3.7, BUN 6, creatinine 0.6, random glucose 115, calcium 8.2, AST 61. ASSESSMENT AND PLAN: Mr. Esteban Carrion is a 71-year-old male with leukocytosis, anemia, hyperglycemia, hypocalcemia, abnormal liver function test. CAT scan of abdomen and pelvis done, appreciated. History of chronic obstructive lung disease, active smoker, esophageal varices with upper gastrointestinal bleeding, cirrhosis of the liver, legally blind, pancreatitis, ascites, urged to quit smoking, urged to stop drinking. Dr. Atkins put him on Nicoderm patch. Started Protonix, Solu-Medrol, GI and DVT prophylaxis, GI consult call. We will see trending of liver function test and H and H. Continue albuterol. Continue octreotide drip. Because of high white blood cell, Dr. Atkins started him on cefepime, getting NS, tapering dose of steroids. We will start on nicotine patch and thiamine. We will follow up. Evie Ponce MD
--- NOTE | 2017-04-14 03:20 | CON ---
DATE: 04/13/2017 HISTORY OF PRESENT ILLNESS: This patient was seen and evaluated earlier. This 71-year-old patient with long history of EtOH use, cirrhosis of the liver, recently in the hospital with GI bleeding, was found to have esophageal variceal bleeding, status post band ligation with hemostasis attained on octreotide drip, signed out AMA yesterday, was brought back to the emergency room by EMS for hematemesis or vomiting blood. The patient was found to have some shortness of breath, also was complaining of abdominal discomfort. The patient is legally blind, was not very cooperative during his last admission, was refusing blood testing withdrawal. PAST MEDICAL HISTORY: Other past medical history is as above. The patient did have colonoscopy done in 2017, found to have colonic angiodysplasia, diverticulosis and gastritis. The patient did have an endoscopy before found to have an esophageal ulceration. The varices are not that pronounced before. During the last admission, the patient was found to have a grade 2 esophageal varices with active bleeding at 30 cm in the esophageal area from varices. Bands were applied with hemostasis. Other past medical history, as above, history of chronic obstructive pulmonary disease, active smoker, legally blind, cirrhosis of the liver. FAMILY HISTORY: Noncontributory. SOCIAL HISTORY: Positive for smoking and alcohol. ALLERGIES: NO KNOWN DRUG ALLERGIES. REVIEW OF SYSTEMS: Positive as above. Other systems reviewed. History of cough, shortness of breath, has some mild abdominal discomfort . PHYSICAL EXAMINATION GENERAL: The patient is lying on the bed, not in acute distress. VITAL SIGNS: Temperature 97.1, blood pressure 120/71, pulse 98, O2 saturation 97%. HEENT: Anicteric, legally blind, reduced visual acuity. NECK: Supple. HEART: S1, S2 heard. LUNGS: Bilateral air entry present, reduced slightly at the base with a few occasional crackles and scattered rhonchi. ABDOMEN: Soft. Mild tenderness present on deep palpation. No rebound or guarding. No mass. EXTREMITIES: No cyanosis. No clubbing. NEUROLOGIC: Alert and awake. Moves all the extremities. LABORATORY DATA: WBC count 19.5, hemoglobin 10.7, hematocrit 33, platelets 179. Chemistry shows total bilirubin 1.9. AST 61, ALT 41, alkaline phosphatase 217. The patient did have chest x-ray done, which showed a prominent interstitial marking. CT was also done, which showed lower lung infiltrate, new and gallstone, scattered areas of bowel wall thickening, ascites. IMPRESSION: This 71-year-old patient with cirrhosis of the liver, was recently admitted in the hospital with upper GI bleeding, found to have esophageal varices, status post band ligation. Hemoglobin stable. He signed out AMA, was brought back to the ER with episodes of hematemesis, weakness and shortness of breath. The CT scan showed ascites, gallstones, has a new lung infiltrate. The patient's white cell count is elevated to 19.5. 1. Sepsis, probable pneumonia, other differential should include also spontaneous bacterial peritonitis. 2. Status post recent upper GI bleeding, status post band ligation of esophageal varices. Hemoglobin remain stable. 3. History of esophageal ulcerations. 4. Esophagitis. 5. Gallstones. 6. Elevated LFTs. Other comorbidities include chronic obstructive pulmonary disease. PLAN: 1. Followup of the cultures and continue the antibiotics. 2. We would start the patient on clear liquid diet. 3. Followup of the hemoglobin and hematocrit. The patient wound benefit from continuing the octreotide drip. 4. The patient is on prednisone now 20 mg q. 12 hours, would start the patient on Protonix IV and also Carafate liquid 4 times a day. We will continue to closely follow up his care and suggest further management based on the clinical course. Deyanira Oropeza MD
[2017-04-14] MEDS: Sodium Chloride 0.9% 1,000 ML IV SCH ×2 (05:00→05:06)
[2017-04-14 06:38] LABS: HEMATOCRIT 28.2 % (42.0-52.0); MEAN CELL VOLUME 88.4 fl (80.0-105.0); MEAN CORPUSCULAR HEMOGLOBIN 28.2 pg (25.0-35.0); MEAN CORPUSCULAR HGB CONC 31.9 g/dl (31.0-37.0); MEAN PLATELET VOLUME 11.1 fl (7.0-11.0); RED CELL DISTRIBUTION WIDTH 15.6 % (11.5-14.5); WHITE BLOOD COUNT 12.8 10^3/ul (4.5-11.0)
[2017-04-14 06:42] LABS: ALB/GLOB RATIO 0.9 (1.1-1.8); ALKALINE PHOSPHATASE 156 U/L (38-126); ALT/SGPT 29 U/L (7-56); AST/SGOT 37 U/L (17-59); BLOOD UREA NITROGEN 10 mg/dL (7-21); CALCIUM 7.2 mg/dL (8.4-10.5); CARBON DIOXIDE 23 mmol/L (21-33); CHLORIDE 110 mmol/L (98-107); GFR AFRICAN-AMERICAN > 60; GLUCOSE,RANDOM 168 mg/dL (70-110); POTASSIUM 3.6 mmol/L (3.6-5.0); SODIUM 140 mmol/L (132-148); TOTAL PROTEIN 5.2 g/dL (5.8-8.3)
[2017-04-14] MEDS: MethylPREDNISolone 40 mg Vial IVP SCH ×2 (10:18→22:58)
[2017-04-14] MEDS: Mometasone 0.1% Cream(15 gm) TOP SCH ×3 (10:19→17:38)
[2017-04-14] MEDS: Cefepime 1gm in NS 100ml 1 GM/100 ML BAG IVPB SCH (16:25)
[2017-04-14] MEDS ORDERED: Magnesium Hydroxide Susp 30 ml UD PO ONE (18:55)
[2017-04-15] MEDS: Albuterol-Ipratrop 3 mg / 0.5 (3 ml) UD IH SCH ×4 (01:22→19:28)
[2017-04-15] MEDS: guaiFENesin 100 mg/5 ml Syrup UD PO PRN ×2 (02:17→19:20)
--- NOTE | 2017-04-15 03:42 | PN ---
DATE: SUBJECTIVE: The patient is seen and examined at the bedside earlier in the morning, complaining about itchiness, that started on Singulair, Benadryl, and Elocon cream given. Later on, nurse should have called me that the patient is having gas in the stomach, MOM one dose is given. No nausea, vomiting, or diarrhea. No headache or dizziness. PHYSICAL EXAMINATION VITAL SIGNS: Temperature 98.4, pulse 78, blood pressure 114/65 and respiratory rate 18. HEENT: Head is normocephalic and atraumatic. Eyes, PERRLA. Extraocular muscle intact. Conjunctivae clear. Nose is patent. Mucous membrane moist. NECK: Supple. No carotid bruits. No JVD or thyromegaly. CHEST: Bilaterally symmetrical. HEART: S1 and S2 positive. LUNGS: Clear to auscultation. ABDOMEN: Soft. Bowel sounds positive. No organomegaly. EXTREMITIES: No edema and no cyanosis. NEUROLOGICAL: The patient is awake and alert. Moving all 4 extremities. Focal deficit. MEDICATIONS: Benadryl, albuterol, Elocon, Maxipime, Nicoderm, octreotide, Robitussin, Singulair, NS, Solu-Medrol, thiamine and Zofran. LABORATORY DATA: White blood cells 12.8, hemoglobin 9.0, hematocrit 38.2, and platelets 151. Sodium 140, potassium 3.6, BUN 10, creatinine 0.5 and glucose 168. ASSESSMENT AND PLAN: Mr. Sheyla Orellana is a 71 years old male with leukocytosis, anemia, hyperchloremia, hyperglycemia, hypocalcemia, abnormal liver function tests, history of ethanol abuse, cirrhosis of the liver, came with gastroesophageal bleeding found to have esophageal varies bleeding status post band, and ligation of his hemostasis, attained on the octreotide drip. Signed against medical advice, came back with the same complaints, chronic obstructive pulmonary disease, shortness of breath, history of heavy smoking and heavy alcohol use. The patient is very noncompliant even refusing blood test, education done. Sepsis probably pneumonia, may be spontaneous bacterial peritonitis, also esophagitis and cholelithiasis. Follow up with the culture. Continue the antibiotics. The patient started on clear liquid diet by Dr. Oropeza who followup H&H. Benadryl and Singulair given for itchiness. Discussing with the nursing staff and we will follow. Evie Ponce MD [facility] # [id number] JULIET
--- NOTE | 2017-04-15 03:48 | PN ---
DATE: 04/14/2017 SUBJECTIVE: This patient was seen and evaluated earlier. The patient is on clear liquid diet. The patient is complaining of some abdominal discomfort. The patient is on a liquid diet, tolerating. PHYSICAL EXAMINATION: VITAL SIGNS: Temperature is 98.4, pulse 77, blood pressure is 114/65, and respirations 18. HEENT: Atraumatic. Anicteric. NECK: Supple. HEART: S1 and S2 heard. LUNGS: Bilateral air entry present. Occasional rhonchi and crackles seen. ABDOMEN: Softly distended. There is a mild tenderness present on deep palpation. EXTREMITIES: No cyanosis and no clubbing. LABORATORY DATA: WBC count come down to 12.8, hemoglobin 9.0, hematocrit 28.2, and platelets 151. Total bilirubin has come down to 1.0 and alkaline phosphatase of 156. IMPRESSION: This is a 71-year-old patient with cirrhosis of the liver, recently admitted to the hospital with upper gastrointestinal bleeding, found to have an esophageal varices, status post band ligation. Hemoglobin was stable. The patient signed out against medical advice. The patient was readmitted with episodes of hematemesis, weakness, and shortness of breath. Chest CT showed a new lung infiltrate. The patient also complaining of abdominal discomfort, rule out SBC. The patient is having an elevated white cell count, now it is coming down. 1. Sepsis, rule out pneumonia, other differential diagnosis include spontaneous bacterial peritonitis. 2. The patient has abdominal discomfort, increased ascites, would benefit from large volume paracentesis. 3. Upper gastrointestinal bleeding, status post band ligation of the bleeding esophageal veins. Hemoglobin stable. May need a re-look endoscopy. 4. Esophagitis, history of esophageal ulcers, healed. The patient has esophagitis and erosion present. 5. History of gallstones. 6. Elevated liver function tests showing downward trend. RECOMMENDATIONS: 1. Continue the antibiotics. 2. The patient has only small ascites, would may not benefit from the large volume paracentesis; however, the patient continues to have significant abdominal discomfort and would benefit from diagnostic paracentesis. We will continue to closely followup. Continue antibiotics. The patient presently is on pantoprazole 40 mg daily and also the patient is presently on methylprednisolone and would benefit from Carafate liquid and we will start it. Thank you very much for allowing me to participate in the care of your patient. Deyanira Oropeza MD [facility] # [id number]
--- NOTE | 2017-04-15 07:05 | PN ---
PULMONARY PROGRESS NOTE DATE: 04/14/2017 REFERRING PHYSICIAN: Evie Ponce MD SUBJECTIVE: The patient lying in the bed, feels better today, decreased cough, decreased shortness of breath. Abdominal pain is also better. No leg pain or leg swelling. PHYSICAL EXAMINATION: GENERAL: In no acute distress. VITAL SIGNS: Temperature is 98, heart rate is 77, respiratory rate is 20, blood pressure 114/65 and pulse ox 94% on 2 L nasal cannula. HEENT: Moist mucous membrane. Crowded airway. NECK: Supple. No JVD. LUNGS: Scattered rhonchi. HEART: S1 and S2. ABDOMEN: Some distension, ascites. Mild tenderness. EXTREMITIES: There is no edema. NEUROLOGICAL: Sleepy, arousable, follow simple commands. LABORATORY DATA: Shows hemoglobin 9.0, hematocrit 28.2, WBC 12.8, and platelet is 151. Sodium 140, potassium 3.6, chloride 110, bicarbonate 23, BUN is 10, creatinine 0.5, glucose 168, calcium 7.2, AST 37, ALT 29, alk phos is 156, and albumin 2.5. MEDICATIONS: He is on Benadryl 25 mg twice a day p.r.n., DuoNeb q. 6 hours, mometasone cream affected area twice a day, cefepime 1 g IV daily, Nicoderm patch daily, octreotide IV, Protonix 40 mg IV daily, Robitussin p.r.n. basis, Singulair 10 mg daily, IV fluid of normal saline 100 mL per/hour, Solu-Medrol 20 mg q. 12 hours, vitamin B 100 mg daily, and Zofran p.r.n. basis. IMPRESSION AND PLAN: Chronic obstructive lung disease, pleural effusion, pancreatitis and ascites, status post gastrointestinal bleed, esophageal varices. Case discussed with Dr. Oropeza, schedule for paracentesis tomorrow. We will discontinue IV fluids. Continue bronchodilator, gastric prophylaxis. SCD to lower extremity. Followup labs in the morning. Thank you and we will follow with you. Theodore Atkins MD
[2017-04-15] MEDS: Mometasone 0.1% Cream(15 gm) TOP SCH ×2 (10:00→19:11)
[2017-04-15] MEDS: MethylPREDNISolone 40 mg Vial IVP SCH ×2 (13:03→22:27)
--- NOTE | 2017-04-15 16:07 | CP.PCM.PN ---
<Tasha Gallo - Last Filed: 04/15/17 16:07> Subjective - Date & Time of Evaluation Date of Evaluation: 04/15/17 Time of Evaluation: 10:15 - Subjective Subjective: seen and examined at the bedside earlier today. The chart was reviewed. No acute overnight events reported. Patient is awake alert and aware of surroundings. Denies nausea, vomiting, or pain at this time. No reported fever , chills, nausea, vomiting. No reports of overt GI bleed. Objective - Vital Signs/Intake and Output Vital Signs (last 24 hours): Temp Pulse Resp BP Pulse Ox 98.3 F 68 20 131/70 94 L 04/15/17 11:43 04/15/17 11:43 04/15/17 11:43 04/15/17 11:43 04/15/17 06:00 Intake and Output: 04/15/17 04/15/17 06:59 18:59 Intake Total 340 Balance 340 - Medications Medications: Current Medications Albuterol/Ipratropium (Duoneb 3 Mg/0.5 Mg (3 Ml) Ud) 3 ml IH [id number] JUANITA Last Admin: 04/15/17 13:37 Dose: 3 ml Diphenhydramine HCl (Benadryl) 25 mg PO BID PRN PRN Reason: itching Last Admin: 04/15/17 13:22 Dose: 25 mg Guaifenesin (Robitussin) 100 mg PO Q4H PRN PRN Reason: Cough Last Admin: 04/15/17 02:17 Dose: 100 mg Octreotide Acetate 50 mcg/ (Sodium Chloride) 51 mls @ 102 mls/hr IV Q8 JUANITA PRN Reason: Protocol Last Admin: 04/15/17 05:54 Dose: 102 mls/hr Cefepime HCl (Maxipime 1gm) 1 gm in 100 mls @ 100 mls/hr IVPB Q24H JUANITA PRN Reason: Protocol Last Admin: 04/14/17 16:25 Dose: 100 mls/hr Methylprednisolone (Solu-Medrol) 20 mg IVP Q12 JUANITA Last Admin: 04/15/17 13:03 Dose: 20 mg Mometasone Furoate (Elocon Cream) 0 gm TOP BID JUANITA Last Admin: 04/14/17 17:38 Dose: Not Given Montelukast Sodium (Singulair) 10 mg PO DAILY [facility] Last Admin: 04/15/17 13:03 Dose: 10 mg Nicotine (Nicoderm Cq) 1 patch TD DAILY [facility] Last Admin: 04/15/17 13:02 Dose: 1 patch Ondansetron HCl (Zofran Inj) 4 mg IVP Q6H PRN PRN Reason: Nausea/Vomiting Last Admin: 04/15/17 02:25 Dose: 4 mg Pantoprazole Sodium (Protonix Inj) 40 mg IVP DAILY [facility] Last Admin: 04/15/17 13:04 Dose: 40 mg Thiamine HCl (Vitamin B1 Tab) 100 mg PO DAILY [facility] Last Admin: 04/15/17 13:03 Dose: 100 mg - Labs Labs: 04/14/17 06:00 04/14/17 06:00 PT 13.4 Seconds (9.9-11.8) H 04/13/17 04:00 INR 1.24 (0.93-1.08) H 04/13/17 04:00 APTT 32.4 Seconds (23.7-30.8) H 04/13/17 04:00 - Constitutional Appears: No Acute Distress - Head Exam Head Exam: NORMOCEPHALIC - Eye Exam Eye Exam: Normal appearance. absent: Scleral icterus - ENT Exam ENT Exam: Mucous Membranes Moist - Neck Exam Neck Exam: Normal Inspection - Respiratory Exam Respiratory Exam: NORMAL BREATHING PATTERN. absent: Respiratory Distress - Cardiovascular Exam Cardiovascular Exam: +S1, +S2 - GI/Abdominal Exam GI & Abdominal Exam: Distended, Soft, Normal Bowel Sounds. absent: Guarding, Tenderness, Organomegaly, Rebound - Extremities Exam Extremities Exam: Normal Capillary Refill. absent: Calf Tenderness - Neurological Exam Neurological Exam: Alert, Awake, Oriented x3 - Skin Skin Exam: Dry, Warm Assessment and Plan - Assessment and Plan (Free Text) Assessment: Assessment: Cirrhosis of the liver EtOH Upper GI bleed Recent EGD, esophageal varices status post band ligation Lung infiltrate seen on chest CT Abdominal pain/abdominal distention rule out SBP Improving leukocytosis Plan: Continue IV antibiotics evaluation for diagnostic paracentesis monitor H&H Continue Protonix 40 daily Continue Carafate On Solu-Medrol Continue octreotide Seen and discussed with Dr. Oropeza. <Deyanira Oropeza V - Last Filed: 04/15/17 23:03> Objective - Vital Signs/Intake and Output Vital Signs (last 24 hours): Temp Pulse Resp BP Pulse Ox 98.3 F 89 20 139/68 94 L 04/15/17 18:00 04/15/17 18:00 04/15/17 18:00 04/15/17 18:00 04/15/17 06:00 - Medications Medications: Current Medications Albuterol/Ipratropium (Duoneb 3 Mg/0.5 Mg (3 Ml) Ud) 3 ml IH [id number] [facility] Last Admin: 04/15/17 19:28 Dose: 3 ml Diphenhydramine HCl (Benadryl) 25 mg PO BID PRN PRN Reason: itching Last Admin: 04/15/17 13:22 Dose: 25 mg Guaifenesin (Robitussin) 100 mg PO Q4H PRN PRN Reason: Cough Last Admin: 04/15/17 19:20 Dose: 100 mg Octreotide Acetate 50 mcg/ (Sodium Chloride) 51 mls @ 102 mls/hr IV Q8 JUANITA PRN Reason: Protocol Last Admin: 04/15/17 22:28 Dose: 102 mls/hr Cefepime HCl (Maxipime 1gm) 1 gm in 100 mls @ 100 mls/hr IVPB Q24H JUANITA PRN Reason: Protocol Last Admin: 04/15/17 19:10 Dose: 100 mls/hr Methylprednisolone (Solu-Medrol) 20 mg IVP Q12 [facility] Last Admin: 04/15/17 22:27 Dose: 20 mg Mometasone Furoate (Elocon Cream) 0 gm TOP BID [facility] Last Admin: 04/15/17 19:11 Dose: Not Given Montelukast Sodium (Singulair) 10 mg PO DAILY [facility] Last Admin: 04/15/17 13:03 Dose: 10 mg Nicotine (Nicoderm Cq) 1 patch TD DAILY [facility] Last Admin: 04/15/17 13:02 Dose: 1 patch Ondansetron HCl (Zofran Inj) 4 mg IVP Q6H PRN PRN Reason: Nausea/Vomiting Last Admin: 04/15/17 02:25 Dose: 4 mg Pantoprazole Sodium (Protonix Inj) 40 mg IVP DAILY [facility] Last Admin: 04/15/17 13:04 Dose: 40 mg Thiamine HCl (Vitamin B1 Tab) 100 mg PO DAILY [facility] Last Admin: 04/15/17 13:03 Dose: 100 mg - Labs Labs: 04/14/17 06:00 04/14/17 06:00 PT 13.4 Seconds (9.9-11.8) H 04/13/17 04:00 INR 1.24 (0.93-1.08) H 04/13/17 04:00 APTT 32.4 Seconds (23.7-30.8) H 04/13/17 04:00 Attending/Attestation - Attestation I have personally seen and examined this patient.: Yes I have fully participated in the care of the patient.: Yes I have reviewed all pertinent clinical information, including history, physical exam and plan: Yes Notes (Text): This is an addendum to the progress report dictated by Tasha Gallo APN. Patient was seen and evaluated earlier,. Discussed with the family members who were at bedside on examination abdomen remains distended mild tenderness present Status post esophageal variceal banding now admitted with sepsis pneumonia rule out SBP Continue the IV antibiotics, patient is also on steroid tapering dose Would benefit from paracentesis I did speak with Dr. Scott regarding this scheduled for the procedure tomorrow thank you very much for allowing us to participate in the care of the patient 04/15/17 23:01
[2017-04-15] MEDS: Cefepime 1gm in NS 100ml 1 GM/100 ML BAG IVPB SCH (19:10)
--- NOTE | 2017-04-15 22:52 | PN ---
DATE: SUBJECTIVE: The patient is seen and examined at the bedside, lying down comfortably. No nausea, vomiting, or diarrhea. No hematuria or hematochezia. Awake and alert. No headache, no dizziness. No fever, no chills. PHYSICAL EXAMINATION: VITAL SIGNS: Temperature 98.3, pulse 58, respiratory rate 20, blood pressure 130/70, pulse oximetry 94. HEENT: Head is normocephalic and atraumatic. Eyes, PERRLA. Extraocular muscle intact. Conjunctivae clear. Nose is patent. Mucous membrane moist. NECK: Supple. No carotid bruits. No JVD or thyromegaly. CHEST: Bilaterally symmetrical. HEART: S1 and S2 positive. LUNGS: Clear to auscultation. ABDOMEN: Soft. Bowel sounds positive. No organomegaly. EXTREMITIES: No edema and no cyanosis. NEUROLOGICAL: The patient is awake and alert. Moving all 4 extremities. No focal deficit. MEDICATIONS: Benadryl, Robitussin, NS, Maxipime, Solu-Medrol, Ecotrin, Singulair, Zofran, Protonix, thiamine. LABORATORY DATA: White blood cells 12.8, hemoglobin 9.0, hematocrit 38.0, and platelets 151. Sodium 140, potassium 3.6, BUN 10, creatinine 0.5 and glucose 168. ASSESSMENT AND PLAN: Mr.Hanna Orellana is a 71-year-old male with leukocytosis, anemia, hyperglycemia, history of ethanol abuse, upper gastrointestinal bleeding, recent EGD, esophageal varies, status post band ligation, lung infiltrate seen on the chest CT. Abdominal pain, rule out small bowel perforation. Improving leukocytosis. Cirrhosis of the liver. We will continue antibiotics. May be the patient needs diagnostic paracentesis. Monitor H and H. Continue Protonix 40 mg, Carafate, on Solu-Medrol tapering doses. Seen by Dr. Oropeza. Seen by Dr. Atkins also. Chronic obstructive lung disease, pleural effusion, status post gastrointestinal bleeding. Discontinue IV fluid, bronchodilators. Gastric prophylaxis. SCDs to the lower extremities. We will follow up. Evie Ponce MD [facility] # [id number]
--- NOTE | 2017-04-16 00:22 | PN ---
PULMONARY PROGRESS NOTE DATE: 04/15/2017 REFERRING PHYSICIAN: Evie Ponce MD SUBJECTIVE: The patient is lying in the bed, family is at bedside. Night was unremarkable. Breathing is better. Decreased cough and shortness of breath, still have abdominal pain. No nausea or vomiting. No diarrhea. No leg pain or leg swelling. OBJECTIVE: GENERAL: In no acute distress. VITAL SIGNS: Temperature is 98, heart rate is 89, respiratory rate is 20, blood pressure is 139/68, and pulse ox is 94% on nasal cannula. HEENT: Moist mucous membrane. Crowded airway. Mallampati score is 4. NECK: Supple. No JVD. LUNGS: Has a few crackles at the bases. HEART: S1 and S2. ABDOMEN: Soft. Has ascites. Diffusely mildly tender. EXTREMITIES: There is no edema. NEUROLOGICAL: Awake, alert, and follows simple commands. MEDICATIONS: Benadryl 25 mg twice a day p.r.n., DuoNeb q.6 hours, cefepime 1 g IV q.24 hours, Nicoderm patch daily, Protonix 40 mg daily, Robitussin p.r.n. basis, Singulair 10 mg daily, Solu-Medrol 20 mg q.12 hours, vitamin B 100 mg daily, and Zofran p.r.n. basis. LABORATORY DATA: Reviewed and noted. No new lab is available since yesterday. Microbiology, stool for C. diff is negative. IMPRESSION AND PLAN: Chronic obstructive lung disease, pleural effusion, pancreatitis, ascites, may have peritonitis, gastroesophageal reflux disease, and esophageal varices with bleed. I spoke to family at bedside. All the questions answered. Decrease Solu-Medrol to 20 mg daily. Continue antibiotics. GI followup. May need paracentesis, gastric prophylaxis, and SCD to lower extremity. Followup labs in the morning. Thank you and we will follow with you. Theodore Atkins MD
[2017-04-16] MEDS: Albuterol-Ipratrop 3 mg / 0.5 (3 ml) UD IH SCH ×4 (01:28→19:53)
[2017-04-16] MEDS: guaiFENesin 100 mg/5 ml Syrup UD PO PRN ×3 (01:58→22:39)
[2017-04-16 07:40] LABS: HEMATOCRIT 28.2 % (42.0-52.0); MEAN CELL VOLUME 88.7 fl (80.0-105.0); MEAN CORPUSCULAR HEMOGLOBIN 27.4 pg (25.0-35.0); MEAN CORPUSCULAR HGB CONC 30.9 g/dl (31.0-37.0); MEAN PLATELET VOLUME 11.3 fl (7.0-11.0); RED CELL DISTRIBUTION WIDTH 16.1 % (11.5-14.5)
[2017-04-16 07:53] LABS: BLOOD UREA NITROGEN 16 mg/dL (7-21); CALCIUM 7.9 mg/dL (8.4-10.5); CARBON DIOXIDE 24 mmol/L (21-33); CHLORIDE 110 mmol/L (95-110); GFR AFRICAN-AMERICAN > 60; GLUCOSE,RANDOM 117 mg/dL (70-110); MAGNESIUM 2.2 mg/dL (1.7-2.2); POTASSIUM 3.8 mmol/L (3.6-5.0); SODIUM 143 mmol/L (132-148)
[2017-04-16] MEDS ORDERED: MethylPREDNISolone 40 mg Vial IVP SCH (10:00)
[2017-04-16 14:39] LABS: BODY FLUID TYPE PERITONEAL/ASCITES
[2017-04-16 14:56] LABS: BF GROSS APPEARANCE CLEAR (CLEAR); BODY FLUID TOTAL COUNT 100 (0-0)
[2017-04-16] MEDS: Mometasone 0.1% Cream(15 gm) TOP SCH ×2 (15:46→19:22)
[2017-04-16] MEDS: Cefepime 1gm in NS 100ml 1 GM/100 ML BAG IVPB SCH (15:49)
--- NOTE | 2017-04-16 16:32 | CP.PCM.PN ---
<Tasha Gallo - Last Filed: 04/16/17 16:31> Subjective - Date & Time of Evaluation Date of Evaluation: 04/16/17 Time of Evaluation: 08:50 - Subjective Subjective: Seen and examined at the bedside earlier today. Patient is tolerating clear liquid diet. No complaint of nausea, vomiting, oropharyngeal GI bleed. Patient is awaiting to go for paracentesis today. No acute overnight events reported. Objective - Vital Signs/Intake and Output Vital Signs (last 24 hours): Temp Pulse Resp BP Pulse Ox 97.1 F L 83 18 122/61 96 04/16/17 12:00 04/16/17 12:00 04/16/17 12:00 04/16/17 12:00 04/16/17 06:00 Intake and Output: 04/16/17 04/16/17 06:59 18:59 Intake Total 460 Output Total 670 Balance -210 - Medications Medications: Current Medications Albuterol/Ipratropium (Duoneb 3 Mg/0.5 Mg (3 Ml) Ud) 3 ml IH [id number] [facility] Last Admin: 04/16/17 13:26 Dose: Not Given Diphenhydramine HCl (Benadryl) 25 mg PO BID PRN PRN Reason: itching Last Admin: 04/16/17 09:58 Dose: 25 mg Guaifenesin (Robitussin) 100 mg PO Q4H PRN PRN Reason: Cough Last Admin: 04/16/17 09:58 Dose: 100 mg Octreotide Acetate 50 mcg/ (Sodium Chloride) 51 mls @ 102 mls/hr IV Q8 JUANITA PRN Reason: Protocol Last Admin: 04/16/17 16:26 Dose: 102 mls/hr Cefepime HCl (Maxipime 1gm) 1 gm in 100 mls @ 100 mls/hr IVPB Q24H JUANITA PRN Reason: Protocol Last Admin: 04/16/17 15:49 Dose: 100 mls/hr Methylprednisolone (Solu-Medrol) 20 mg IVP DAILY [facility] Last Admin: 04/16/17 09:59 Dose: 20 mg Mometasone Furoate (Elocon Cream) 0 gm TOP BID [facility] Last Admin: 04/16/17 15:46 Dose: 1 units Montelukast Sodium (Singulair) 10 mg PO DAILY [facility] Last Admin: 04/16/17 09:58 Dose: 10 mg Nicotine (Nicoderm Cq) 1 patch TD DAILY [facility] Last Admin: 04/16/17 09:59 Dose: 1 patch Ondansetron HCl (Zofran Inj) 4 mg IVP Q6H PRN PRN Reason: Nausea/Vomiting Last Admin: 04/16/17 01:58 Dose: 4 mg Pantoprazole Sodium (Protonix Inj) 40 mg IVP DAILY [facility] Last Admin: 04/16/17 09:58 Dose: 40 mg Thiamine HCl (Vitamin B1 Tab) 100 mg PO DAILY JUANITA Last Admin: 04/16/17 09:58 Dose: 100 mg - Labs Labs: 04/16/17 07:10 04/16/17 07:10 PT 13.4 Seconds (9.9-11.8) H 04/13/17 04:00 INR 1.24 (0.93-1.08) H 04/13/17 04:00 APTT 32.4 Seconds (23.7-30.8) H 04/13/17 04:00 - Constitutional Appears: No Acute Distress - Head Exam Head Exam: NORMOCEPHALIC - Eye Exam Eye Exam: Normal appearance. absent: Scleral icterus - ENT Exam ENT Exam: Mucous Membranes Moist - Neck Exam Neck Exam: Normal Inspection - Respiratory Exam Respiratory Exam: Decreased Breath Sounds, NORMAL BREATHING PATTERN. absent: Rales, Wheezes, Respiratory Distress - Cardiovascular Exam Cardiovascular Exam: +S1, +S2 - GI/Abdominal Exam GI & Abdominal Exam: Distended, Soft, Normal Bowel Sounds. absent: Guarding, Tenderness, Hypoactive Bowel Sounds, Rebound - Extremities Exam Extremities Exam: Normal Capillary Refill. absent: Calf Tenderness, Pedal Edema - Neurological Exam Neurological Exam: Alert, Awake, Oriented x3 Assessment and Plan - Assessment and Plan (Free Text) Assessment: Assessment: Cirrhosis of the liver EtOH Upper GI bleed Recent EGD, esophageal varices status post band ligation Lung infiltrate seen on chest CT Abdominal pain/abdominal distention rule out SBP Improving leukocytosis Plan: Continue IV antibiotics paracentesis today and follow-up ascitic fluid studies monitor H&H Continue Protonix 40 daily Continue Carafate On Solu-Medrol Continue octreotide Seen and discussed with Dr. Oropeza. <Deyanira Oropeza V - Last Filed: 04/16/17 23:19> Objective - Vital Signs/Intake and Output Vital Signs (last 24 hours): Temp Pulse Resp BP Pulse Ox 97.1 F L 76 18 122/61 96 04/16/17 12:00 04/16/17 22:00 04/16/17 12:00 04/16/17 12:00 04/16/17 06:00 - Medications Medications: Current Medications Albuterol/Ipratropium (Duoneb 3 Mg/0.5 Mg (3 Ml) Ud) 3 ml IH [id number] [facility] Last Admin: 04/16/17 19:53 Dose: 3 ml Diphenhydramine HCl (Benadryl) 25 mg PO BID PRN PRN Reason: itching Last Admin: 04/16/17 09:58 Dose: 25 mg Guaifenesin (Robitussin) 100 mg PO Q4H PRN PRN Reason: Cough Last Admin: 04/16/17 22:39 Dose: 100 mg Octreotide Acetate 50 mcg/ (Sodium Chloride) 51 mls @ 102 mls/hr IV Q8 JUANITA PRN Reason: Protocol Last Admin: 04/16/17 21:52 Dose: 102 mls/hr Cefepime HCl (Maxipime 1gm) 1 gm in 100 mls @ 100 mls/hr IVPB Q24H JUANITA PRN Reason: Protocol Last Admin: 04/16/17 15:49 Dose: 100 mls/hr Mometasone Furoate (Elocon Cream) 0 gm TOP BID [facility] Last Admin: 04/16/17 19:22 Dose: 1 units Montelukast Sodium (Singulair) 10 mg PO DAILY [facility] Last Admin: 04/16/17 09:58 Dose: 10 mg Nicotine (Nicoderm Cq) 1 patch TD DAILY [facility] Last Admin: 04/16/17 09:59 Dose: 1 patch Ondansetron HCl (Zofran Inj) 4 mg IVP Q6H PRN PRN Reason: Nausea/Vomiting Last Admin: 04/16/17 01:58 Dose: 4 mg Pantoprazole Sodium (Protonix Inj) 40 mg IVP DAILY [facility] Last Admin: 04/16/17 09:58 Dose: 40 mg Prednisone (Prednisone Tab) 10 mg PO DAILY [facility] Thiamine HCl (Vitamin B1 Tab) 100 mg PO DAILY [facility] Last Admin: 04/16/17 09:58 Dose: 100 mg - Labs Labs: 04/16/17 07:10 04/16/17 07:10 PT 13.4 Seconds (9.9-11.8) H 04/13/17 04:00 INR 1.24 (0.93-1.08) H 04/13/17 04:00 APTT 32.4 Seconds (23.7-30.8) H 04/13/17 04:00 Attending/Attestation - Attestation I have personally seen and examined this patient.: Yes I have fully participated in the care of the patient.: Yes I have reviewed all pertinent clinical information, including history, physical exam and plan: Yes Notes (Text): the patient was seen and evaluated earlier. This is an addendum to a progress report dictated by Tasha Gallo APN. Status post paracentesis thousand 800 mL of ascitic fluid drained. The fluid cell count is not suggestive of SBP. Status post band ligation of esophageal varices. Pneumonia on IV antibiotics slowly advance the diet with the assistance Close follow-up of hemoglobin and hematocrit 04/16/17 23:17
--- NOTE | 2017-04-16 17:40 | US ---
PROCEDURE: Ultrasound guided paracentesis. HISTORY: Alcoholic cirrhosis ascites with abdominal pain and distension. PHYSICIAN(S): Juan Miguel Scott MD. TECHNIQUE: The relative risks and indications for the procedure were explained to the patient and informed written consent obtained. Sonography of the abdomen was performed in a supine position. This revealed a small to moderate amount of non-loculated ascites, greatest in the right lower quadrant. A puncture site was selected and the area was prepped and draped in the usual sterile fashion. 1% Xylocaine was used to anesthetize the skin and soft tissues. A 7 [place] paracentesis catheter was trocared into the right lower quadrantand 1800 cc of clear, white fluid aspirated The appropriate labs were sent. IMPRESSION: Ultrasound-guided paracentesis in the right lower quadrant. 1800 cc of fluid were aspirated. Labs were sent
[2017-04-17 00:21] VITALS: O2SAT 95
--- NOTE | 2017-04-17 00:43 | PN ---
DATE: SUBJECTIVE: The patient is seen and examined on the bedside, looking comfortable. Abdominal pain is better, happy, he said he is feeling light, and tolerating clear liquid diet. No nausea, vomiting, or diarrhea. No more GI bleeding. No acute overnight event reported. No change in the status except that 1.5 L of fluid is taken from the abdominal cavity. PHYSICAL EXAMINATION: VITAL SIGNS: Temperature 97.1, pulse 83, respiratory rate 18, blood pressure 122/61, and pulse oximetry 97. HEENT: Head is normocephalic and atraumatic. Eyes, PERRLA. Extraocular muscle intact. Conjunctivae clear. Nose is patent. NECK: Supple. No carotid bruits. No JVD or thyromegaly. CHEST: Bilaterally symmetrical. HEART: S1 and S2 positive. LUNGS: Clear to auscultation. ABDOMEN: Soft and nontender. No organomegaly. EXTREMITIES: No edema and no cyanosis. NEUROLOGICAL: The patient is awake and alert. Moving all 4 extremities, but the patient is legally blind. MEDICATIONS: Dilaudid, Benadryl, Robitussin, octreotide, Maxipime, Solu-Medrol, Elocon, Singulair, Nicoderm patch, Zofran, NS, B12, and B1. LABORATORY DATA: White blood cells 12.0, hemoglobin 8.7, hematocrit 28.2, and platelets 201. Sodium 146, potassium 3.8, BUN 16, creatinine 0.6, and glucose 117. ASSESSMENT AND PLAN: Mr. Esteban Carrion is 71 years old male with cirrhosis of the liver, history of ethanol abuse, having smoking, history of both upper and lower gastrointestinal bleeding, and recently esophagogastroduodenoscopy done, esophageal varices, and status post band ligation done by Dr. Oropeza. Lung infiltrate seen on the chest x-ray, rule out aspiration pneumonia, chronic obstructive pulmonary disease, abdominal pain and abdominal distention, rule out spontaneous bacterial peritonitis, status post paracentesis, today 1.5 L of fluid is taken, improving leukocytosis, and continue antibiotics. Paracentesis done and we will follow up with ascitic fluid studies. Monitoring H and H. Continue Protonix, Carafate, Solu-Medrol tapering doses, continue octreotide, and review gastrointestinal notes. Review Dr. Atkins's notes also. The patient is very noncompliant, urge to be compliant. Chronic obstructive lung disease, pleural effusion, and gastroesophageal reflux disease. Dr. Atkins spoke to the patient's family yesterday. We will give tapering dose of steroids and we will follow. Evie Ponce MD MTDD
[2017-04-17] MEDS: Albuterol-Ipratrop 3 mg / 0.5 (3 ml) UD IH SCH ×5 (01:33→21:01)
--- NOTE | 2017-04-17 03:30 | PN ---
DATE: 04/16/2017 PULMONARY PROGRESS NOTE REFERRING PHYSICIAN: Evie Ponce MD SUBJECTIVE: He is lying in the bed, feels better. Decreased cough, decreased shortness of breath, decreased abdominal girth and distention. No leg pain or leg swelling. OBJECTIVE: GENERAL: No acute distress. VITAL SIGNS: Temperature is 98, heart rate is 83, respiratory rate is 20, blood pressure 122/66, pulse ox 96% on nasal cannula. HEENT: Moist mucous membrane. Crowded airway. NECK: Supple. No JVD. LUNGS: Has scattered rhonchi, a few crackles heard at the bases. HEART: S1 and S2. ABDOMEN: Much more soft, decreased distention. EXTREMITIES: Has no edema. NEUROLOGICAL: Awake, alert, follow simple commands. MEDICATIONS: He is on Benadryl 25 mg twice a day p.r.n., DuoNeb q. 6 hours, mometasone twice a day, cefepime 1 g IV q. 24 hours, Nicoderm patch daily, Protonix 40 mg daily, Robitussin 100 mg q. 4 hours, Singulair 10 mg daily, Solu-Medrol 20 mg daily, vitamin B 100 mg daily, and Zofran on a p.r.n. basis. LABORATORY DATA: Shows hemoglobin 8.7, hematocrit 28.2, WBC 12.0, platelet is 201. Sodium 143, potassium 3.8, chloride 110, bicarbonate 24, BUN 16, creatinine 0.6, glucose 117, calcium 7.9, magnesium 2.2. Stool for C. diff has been negative. He had a thoracentesis done, taken off almost 2 L of fluid. IMPRESSION AND PLAN: Chronic obstructive lung disease, pleural effusion, ascites, peritonitis, gastroesophageal reflux disease, esophageal varices with bleed. Pulmonary point of view, after paracentesis, feels better, on antibiotics. Gastric prophylaxis, bronchodilator, discontinue Solu-Medrol, prednisone 10 mg daily, out-of-bed to chair, physical therapy. Followup labs in the morning. Thank you and we will follow with you. Theodore Atkins MD
[2017-04-17 07:08] LABS: MEAN CELL VOLUME 88.4 fl (80.0-105.0); MEAN CORPUSCULAR HEMOGLOBIN 27.4 pg (25.0-35.0); MEAN PLATELET VOLUME 10.9 fl (7.0-11.0); RED CELL DISTRIBUTION WIDTH 16.2 % (11.5-14.5); WHITE BLOOD COUNT 11.4 10^3/ul (4.5-11.0)
[2017-04-17 07:12] LABS: ALKALINE PHOSPHATASE 146 U/L (38-126); ALT/SGPT 33 U/L (7-56); AST/SGOT 31 U/L (17-59); BILIRUBIN,TOTAL 0.8 mg/dL (0.2-1.3); BLOOD UREA NITROGEN 17 mg/dL (7-21); CALCIUM 7.7 mg/dL (8.4-10.5); CARBON DIOXIDE 27 mmol/L (21-33); CHLORIDE 110 mmol/L (95-110); GFR AFRICAN-AMERICAN > 60; GLUCOSE,RANDOM 87 mg/dL (70-110); SODIUM 141 mmol/L (132-148); TOTAL PROTEIN 5.6 g/dL (5.8-8.3)
[2017-04-17] MEDS: Mometasone 0.1% Cream(15 gm) TOP SCH ×2 (10:39→19:41)
--- NOTE | 2017-04-17 12:17 | CP.PCM.PCO ---
Physician Communication Note - Physician Communication Note Physician Communication Note: New LLQ Abd pain post tap/Severe constipation( 5days)
--- NOTE | 2017-04-17 13:47 | RAD ---
HISTORY: constipation/ascites:r/o free air COMPARISON: No prior. FINDINGS: BOWEL: Normal. No obstruction. No free air. BONES: Normal. OTHER FINDINGS: None. IMPRESSION: No evidence of free air
--- NOTE | 2017-04-17 16:47 | CP.PCM.PN ---
<Tasha Gallo - Last Filed: 04/17/17 16:47> Subjective - Date & Time of Evaluation Date of Evaluation: 04/17/17 Time of Evaluation: 09:50 - Subjective Subjective: Seen and examined at the bedside earlier today, chart was reviewed. Patient is status post paracentesis yesterday, 1800 mL of ascitic fluid removed and labs sent. Patient denies nausea, vomiting, complains of left-sided abdominal discomfort when coughing yesterday. His right-sided dressing from paracentesis is dry and intact areas nontender. Tolerating liquids. No reports of overt GI bleed. No acute overnight events reported.patient reported to have small bowel movement that was formed this morning no blood. Objective - Vital Signs/Intake and Output Vital Signs (last 24 hours): Temp Pulse Resp BP Pulse Ox 98.4 F 72 19 110/57 L 95 04/17/17 12:00 04/17/17 12:00 04/17/17 12:00 04/17/17 12:00 04/17/17 06:00 Intake and Output: 04/17/17 04/17/17 06:59 18:59 Intake Total 1220 Output Total 400 Balance 820 - Medications Medications: Current Medications Albuterol/Ipratropium (Duoneb 3 Mg/0.5 Mg (3 Ml) Ud) 3 ml IH [id number] COUNT INCLUDES THE [facility] Last Admin: 04/17/17 14:07 Dose: 3 ml Diphenhydramine HCl (Benadryl) 25 mg PO BID PRN PRN Reason: itching Last Admin: 04/16/17 09:58 Dose: 25 mg Guaifenesin (Robitussin) 100 mg PO Q4H PRN PRN Reason: Cough Last Admin: 04/16/17 22:39 Dose: 100 mg Cefepime HCl (Maxipime 1gm) 1 gm in 100 mls @ 100 mls/hr IVPB Q24H COUNT INCLUDES THE [facility] PRN Reason: Protocol Last Admin: 04/16/17 15:49 Dose: 100 mls/hr Mometasone Furoate (Elocon Cream) 0 gm TOP BID COUNT INCLUDES THE [facility] Last Admin: 04/17/17 10:39 Dose: 1 units Montelukast Sodium (Singulair) 10 mg PO DAILY COUNT INCLUDES THE [facility] Last Admin: 04/17/17 10:33 Dose: 10 mg Nadolol (Corgard) 20 mg PO DAILY COUNT INCLUDES THE [facility] Nicotine (Nicoderm Cq) 1 patch TD DAILY COUNT INCLUDES THE [facility] Last Admin: 04/17/17 10:33 Dose: 1 patch Ondansetron HCl (Zofran Inj) 4 mg IVP Q6H PRN PRN Reason: Nausea/Vomiting Last Admin: 04/16/17 01:58 Dose: 4 mg Pantoprazole Sodium (Protonix Inj) 40 mg IVP DAILY COUNT INCLUDES THE [facility] Last Admin: 04/17/17 10:33 Dose: 40 mg Prednisone (Prednisone Tab) 10 mg PO DAILY COUNT INCLUDES THE [facility] Last Admin: 04/17/17 10:33 Dose: 10 mg Thiamine HCl (Vitamin B1 Tab) 100 mg PO DAILY COUNT INCLUDES THE [facility] Last Admin: 04/17/17 10:33 Dose: 100 mg - Labs Labs: 04/17/17 06:38 04/17/17 06:38 PT 13.4 Seconds (9.9-11.8) H 04/13/17 04:00 INR 1.24 (0.93-1.08) H 04/13/17 04:00 APTT 32.4 Seconds (23.7-30.8) H 04/13/17 04:00 - Constitutional Appears: No Acute Distress - Head Exam Head Exam: NORMOCEPHALIC - Eye Exam Eye Exam: Normal appearance. absent: Scleral icterus - ENT Exam ENT Exam: Mucous Membranes Moist - Neck Exam Neck Exam: Normal Inspection - Respiratory Exam Respiratory Exam: NORMAL BREATHING PATTERN. absent: Respiratory Distress - GI/Abdominal Exam GI & Abdominal Exam: Distended (less, pressure dressing d&i), Soft, Normal Bowel Sounds. absent: Guarding, Tenderness, Rebound - Extremities Exam Extremities Exam: Normal Capillary Refill. absent: Calf Tenderness, Pedal Edema - Neurological Exam Neurological Exam: Alert, Awake, Oriented x3 - Skin Skin Exam: Dry, Warm Assessment and Plan - Assessment and Plan (Free Text) Assessment: Assessment: Cirrhosis of the liver Abdominal ascites, status post paracentesis EtOH Upper GI bleed Recent EGD, esophageal varices status post band ligation Lung infiltrate seen on chest CT Abdominal pain/abdominal distention rule out SBP Improving leukocytosis Plan: Continue IV antibiotics follow-up ascitic fluid studies monitor H&H Continue Protonix 40 daily Continue Carafate Give dose of lactulose On Solu-Medrol DC octreotide drip and start Nadalol 20 mg daily Advance diet to soft low residual diet Seen and discussed with Dr. Oropeza. <Deyanira Oropeza V - Last Filed: 04/17/17 23:34> Objective - Vital Signs/Intake and Output Vital Signs (last 24 hours): Temp Pulse Resp BP Pulse Ox 98 F 79 18 143/70 95 04/17/17 18:00 04/17/17 22:00 04/17/17 18:00 04/17/17 18:00 04/17/17 06:00 Intake and Output: 04/17/17 04/18/17 18:59 06:59 Intake Total 480 Output Total 450 Balance 30 - Medications Medications: Current Medications Albuterol/Ipratropium (Duoneb 3 Mg/0.5 Mg (3 Ml) Ud) 3 ml IH [id number] COUNT INCLUDES THE [facility] Last Admin: 04/17/17 21:01 Dose: Not Given Diphenhydramine HCl (Benadryl) 25 mg PO BID PRN PRN Reason: itching Last Admin: 04/16/17 09:58 Dose: 25 mg Guaifenesin (Robitussin) 100 mg PO Q4H PRN PRN Reason: Cough Last Admin: 04/16/17 22:39 Dose: 100 mg Cefepime HCl (Maxipime 1gm) 1 gm in 100 mls @ 100 mls/hr IVPB Q24H JUANITA PRN Reason: Protocol Last Admin: 04/17/17 16:49 Dose: 100 mls/hr Mometasone Furoate (Elocon Cream) 0 gm TOP BID COUNT INCLUDES THE [facility] Last Admin: 04/17/17 19:41 Dose: Not Given Montelukast Sodium (Singulair) 10 mg PO DAILY COUNT INCLUDES THE [facility] Last Admin: 04/17/17 10:33 Dose: 10 mg Nadolol (Corgard) 20 mg PO DAILY COUNT INCLUDES THE [facility] Nicotine (Nicoderm Cq) 1 patch TD DAILY COUNT INCLUDES THE [facility] Last Admin: 04/17/17 10:33 Dose: 1 patch Ondansetron HCl (Zofran Inj) 4 mg IVP Q6H PRN PRN Reason: Nausea/Vomiting Last Admin: 04/16/17 01:58 Dose: 4 mg Pantoprazole Sodium (Protonix Inj) 40 mg IVP DAILY COUNT INCLUDES THE [facility] Last Admin: 04/17/17 10:33 Dose: 40 mg Prednisone (Prednisone Tab) 5 mg PO DAILY JUANITA Thiamine HCl (Vitamin B1 Tab) 100 mg PO DAILY JUANITA Last Admin: 04/17/17 10:33 Dose: 100 mg - Labs Labs: 04/17/17 06:38 04/17/17 06:38 PT 13.4 Seconds (9.9-11.8) H 04/13/17 04:00 INR 1.24 (0.93-1.08) H 04/13/17 04:00 APTT 32.4 Seconds (23.7-30.8) H 04/13/17 04:00 Attending/Attestation - Attestation I have personally seen and examined this patient.: Yes I have fully participated in the care of the patient.: Yes I have reviewed all pertinent clinical information, including history, physical exam and plan: Yes Notes (Text): This patient was seen and evaluated here earlier. This is an addendum to the GE progress report dictated by Tasha Gallo APN. Still complaining of some abdominal discomfort especially when he is coughing and pleuritic chest up her abdominal area he experiences some discomfort. Status post paracentesis of ascitic fluid cell count urinalysis was negative for SBP Now started on Nadolol. Status post esophageal band ligation 04/17/17 23:32
[2017-04-17] MEDS: Cefepime 1gm in NS 100ml 1 GM/100 ML BAG IVPB SCH (16:49)
--- NOTE | 2017-04-17 19:06 | PN ---
PULMONARY PROGRESS NOTE DATE: 04/17/2017 REFERRING PHYSICIAN: Evie Ponce MD SUBJECTIVE: He is lying in the bed sleeping, gets nebulizer treatment, which was unremarkable, feels much better, decreased cough, decreased shortness of breath, no nausea, decreased abdominal pain. No leg pain or leg swelling. PHYSICAL EXAMINATION: GENERAL: No acute distress. VITAL SIGNS: Temperature 98, heart rate 72, respiratory rate 18, blood pressure 110/57, and pulse oximetry 97% on 2 L nasal cannula HEENT: Moist mucous membranes. No oral thrush. NECK: Supple. No JVD. LUNGS: Has a few crackles. HEART: S1 and S2. ABDOMEN: Positive bowel sound. Soft. Still has some ascites. EXTREMITIES: There is no edema. NEUROLOGICAL: Sleepy, arousable, follow simple commands. MEDICATIONS: He is on Benadryl 25 mg twice a day p.r.n, nadolol 20 mg daily, albuterol and Atrovent nebulizer q.6 hours, mometasone topically twice a day, cefepime 1 g IV daily, Nicoderm patch daily, prednisone 10 mg drug, Protonix 40 mg daily, Robitussin 100 mg q.4 hours p.r.n., Singulair 10 mg daily, vitamin B 100 mg daily, and Zofran on p.r.n. basis. LABORATORY DATA: Shows hemoglobin 9.7,hematocrit 29, WBC 11.4, and platelet is 215. Sodium 141, potassium 4.0, chloride 110, bicarbonate 27, BUN 17, creatinine 0.6, glucose 87, calcium 7.7, AST 31, ALT 33, and alkaline phosphatase is 146. The peritoneal fluid shows RBC 79, total cell count is 100, neutrophil is 49 and lymphocyte is 51. Peritoneal fluid culture so far there is no growth. Abdominal x-ray was done today, which shows no evidence of free air. IMPRESSION AND PLAN: Chronic obstructive lung disease, pleural effusion, ascites, peritonitis, gastroesophageal reflux disease, esophageal varices, history of gastrointestinal bleed, constipation. Continue bronchodilator, keep head at 45 degrees, slowly taper steroids off, antibiotics , stool softener, out-of-bed to chair, fall precaution. Followup labs in the morning. Thank you and we will follow with you. Theodore Atkins MD [facility] # [id number]
[2017-04-17 22:58] VITALS: RESP 18
--- NOTE | 2017-04-18 00:46 | PN ---
SUBJECTIVE: The patient was examined at the bedside, having a left lower quadrant abdominal pain. The patient did not have bowel movement in a couple of days. Seen by Dr. Eubanks, tap enema was given, severe constipation, after that she had big bowel movement and feeling better. No nausea or vomiting. No headache, no dizziness. No chest pain, no palpitation. No hematuria, no hematochezia. No shortness of breath. Cough is better. The patient was seen and examined at the bedside. PHYSICAL EXAMINATION VITAL SIGNS: Temperature 98.4, pulse 72, respiratory rate 19, blood pressure 115/57, pulse oximetry 95%. HEENT: Head is normocephalic and atraumatic. Eyes, PERRLA. Extraocular muscles are intact. Conjunctivae clear. Nose patent. Mucous membranes moist. NECK: Supple. No carotid bruits, JVD, or thyromegaly. CHEST: Bilaterally symmetrical. HEART: S1, S2 positive. LUNGS: Clear to auscultation. ABDOMEN: Soft. Tender in the left lower quadrant. No organomegaly. EXTREMITIES: No edema, no cyanosis. NEUROLOGICAL: Awake and alert. Moving all 4 extremities. No focal deficits. LABORATORY DATA: White blood cells 11.4, hemoglobin 9.0, hematocrit 29.0, platelets 250. Sodium 141, potassium 4.0, BUN 17, creatinine 0.6, glucose 87. MEDICATIONS: DuoNeb, Benadryl, Robitussin, Maxipime, Singulair, nadolol, NicoDerm, Zofran, Protonix, prednisone. ASSESSMENT AND PLAN: The patient is a 71-year-old male with abdominal pain, left lower quadrant, chronic constipation, acute on chronic, tap water enema given, had bowel movements, feeling better, cirrhosis of the liver, abdominal ascites, status post paracentesis, history of ethanol abuse and heavy smoking, upper and lower GI bleeding. Recent EGD, esophageal varices, status post band ligation. Lung infiltration seen on the chest CT. Pantograph Machine Set Up Operator is on the case. Rule out SBP. Improving leukocytosis. Followup antibiotics. Seen by Dr. Eubanks, ascitic fluid studies. Discussion done with Dr. Oropeza, according to him ascitic fluid study showed there is no SBP. Monitoring H and H. Continue Protonix, Carafate, lactulose. Tapering dose of steroids. Discontinue octreotide drip and start on nadolol 20 mg p.o. daily. Advance diet with physical therapy. We will transfer the patient to [facility]. We will follow. Evie Ponce MD
[2017-04-18] MEDS: Albuterol-Ipratrop 3 mg / 0.5 (3 ml) UD IH SCH ×2 (02:51→08:43)
[2017-04-18] MEDS: Mometasone 0.1% Cream(15 gm) TOP SCH (11:02)
--- NOTE | 2017-04-18 11:27 | CP.PCM.PCO ---
Physician Communication Note - Physician Communication Note Physician Communication Note: Pain improved/Rx lactulose daily-No surgery/TRCU OK!
[2017-04-18 12:15] VITALS: BP 105/58; PULSE 73; TEMP 98.5
[2017-04-18 12:28] LABS: BASO # 0.01 K/mm3 (0.0-2.0); BASO % 0.1 % (0.0-3.0); EOS # 0.7 (0.0-0.7); EOS % 6.6 % (1.5-5.0); GRAN # 6.41 (1.4-6.5); GRAN % 62.3 % (50.0-68.0); HEMATOCRIT 31.1 % (42.0-52.0); LYMPH # 2.3 (1.2-3.4); MEAN CELL VOLUME 88.4 fl (80.0-105.0); MEAN CORPUSCULAR HEMOGLOBIN 27.8 pg (25.0-35.0); MEAN CORPUSCULAR HGB CONC 31.5 g/dl (31.0-37.0); MONO # 0.9 (0.1-0.6); RED CELL DISTRIBUTION WIDTH 16.4 % (11.5-14.5); WHITE BLOOD COUNT 10.3 10^3/ul (4.5-11.0)
[2017-04-18 12:30] LABS: ALKALINE PHOSPHATASE 195 U/L (38-126); ALT/SGPT 36 U/L (7-56); AST/SGOT 34 U/L (17-59); BILIRUBIN,TOTAL 0.7 mg/dL (0.2-1.3); BLOOD UREA NITROGEN 17 mg/dL (7-21); CALCIUM 7.7 mg/dL (8.4-10.5); CARBON DIOXIDE 26 mmol/L (21-33); CHLORIDE 109 mmol/L (98-107); GFR AFRICAN-AMERICAN > 60; GLUCOSE,RANDOM 88 mg/dL (70-110); MAGNESIUM 2.1 mg/dL (1.7-2.2); POTASSIUM 3.7 mmol/L (3.6-5.0); SODIUM 143 mmol/L (132-148); TOTAL PROTEIN 5.4 g/dL (5.8-8.3)
--- NOTE | 2017-04-18 17:02 | CP.PCM.PN ---
<Sandip,Kovisusan V - Last Filed: 04/18/17 22:05> Objective - Vital Signs/Intake and Output Vital Signs (last 24 hours): Temp Pulse Resp BP Pulse Ox 98.5 F 73 18 105/58 L 95 04/18/17 12:00 04/18/17 12:00 04/18/17 12:00 04/18/17 12:00 04/17/17 06:00 - Labs Labs: 04/18/17 11:50 04/18/17 11:50 PT 13.4 Seconds (9.9-11.8) H 04/13/17 04:00 INR 1.24 (0.93-1.08) H 04/13/17 04:00 APTT 32.4 Seconds (23.7-30.8) H 04/13/17 04:00 Attending/Attestation - Attestation I have personally seen and examined this patient.: Yes I have fully participated in the care of the patient.: Yes I have reviewed all pertinent clinical information, including history, physical exam and plan: Yes Notes (Text): This is an addendum to GI progress report dictated by Tasha Gallo APN.The patient was seen and examined earlier. Medical records, lab studies, imagings were reviewed. Last 24 hours events reviewed. Agreed with the above treatment plan as outlined in Tasha Gallo NP's notes the with the addition of the following abdomen not distended mild tenderness in the epigastric area. The ascitic fluid cell count is not suggestive of his BP Patient has lung infiltrate On steroid tapering dose and ON ANTIBIOTICS OFF OCTREOTIDE DRIP ON NADOLOL thank you very much for allowing us to participate in the care of the patient 04/18/17 22:05 <Tasha Gallo - Last Filed: 04/19/17 17:05> Subjective - Date & Time of Evaluation Date of Evaluation: 04/18/17 Time of Evaluation: 09:40 - Subjective Subjective: seen and examined at the bedside earlier today. The patient reports improvement of left upper abdominal discomfort, he was given lactulose and he had 2 good bowel movements. No reports of bleeding. Tolerating oral intake. Objective - Vital Signs/Intake and Output Vital Signs (last 24 hours): Temp Pulse Resp BP Pulse Ox 98.5 F 73 18 105/58 L 95 04/18/17 12:00 04/18/17 12:00 04/18/17 12:00 04/18/17 12:00 04/17/17 06:00 Intake and Output: 04/18/17 04/18/17 06:59 18:59 Intake Total 780 Output Total 450 Balance 330 - Labs Labs: 04/18/17 11:50 04/18/17 11:50 PT 13.4 Seconds (9.9-11.8) H 04/13/17 04:00 INR 1.24 (0.93-1.08) H 04/13/17 04:00 APTT 32.4 Seconds (23.7-30.8) H 04/13/17 04:00 - Constitutional Appears: No Acute Distress - Head Exam Head Exam: NORMOCEPHALIC - Eye Exam Eye Exam: Normal appearance. absent: Scleral icterus - ENT Exam ENT Exam: Mucous Membranes Moist - Neck Exam Neck Exam: Normal Inspection - Respiratory Exam Respiratory Exam: Clear to Ausculation Bilateral, NORMAL BREATHING PATTERN. absent: Respiratory Distress - Cardiovascular Exam Cardiovascular Exam: +S1, +S2 - GI/Abdominal Exam GI & Abdominal Exam: Distended, Soft, Normal Bowel Sounds. absent: Guarding, Tenderness, Rebound - Extremities Exam Extremities Exam: Normal Capillary Refill. absent: Calf Tenderness, Pedal Edema - Neurological Exam Neurological Exam: Alert, Awake, Oriented x3 Assessment and Plan - Assessment and Plan (Free Text) Assessment: Assessment: Cirrhosis of the liver Abdominal ascites, status post paracentesis EtOH Upper GI bleed Recent EGD, esophageal varices status post band ligation Lung infiltrate seen on chest CT Improving leukocytosis Plan: Continue IV antibiotics monitor H&H Continue Protonix 40 daily Continue Carafate On Solu-Medrol continue Nadalol 20 mg daily soft low residual diet Seen and discussed with Dr. Oropeza.
--- NOTE | 2017-04-18 19:16 | PN ---
PULMONARY PROGRESS NOTE DATE: 04/18/2017 REFERRING PHYSICIAN: Evie Ponce MD SUBJECTIVE: Patient lying in the bed, head up 35 degrees, night was unremarkable, feels better, decreased cough, decreased shortness of breath, no nausea, no vomiting, mild abdominal pain. No leg pain or leg swelling. OBJECTIVE: GENERAL: No acute distress. VITAL SIGNS: Temperature 98, heart rate 72, respiratory rate 18, blood pressure 105/58, and pulse oximetry 95% on nasal cannula HEENT: Moist mucous membranes. Crowded airway. NECK: Supple. No JVD. LUNGS: Has a few scattered rhonchi. HEART: S1 and S2. ABDOMEN: Positive ascites. Mild tenderness. EXTREMITIES: No edema. NEUROLOGICAL: Awake, alert, follow simple commands. MEDICATIONS: Reviewed and noted. No new change in medications. LABORATORY DATA: Reviewed. Shows hemoglobin 9.8,hematocrit 31.1, WBC 10.3, and platelet is 210. Sodium 143, potassium 3.7, chloride 109, bicarbonate 26, BUN 17, creatinine 0.5, glucose 88, calcium 7.7, magnesium 2.1, AST 34, ALT 36, alkaline phosphatase is 195, albumin is 2.7. Ascitic fluid, so far there is no growth. IMPRESSION AND PLAN: Chronic obstructive lung disease, pleural effusion, ascites, peritonitis, gastroesophageal reflux disease, esophageal varices, status post bleed, constipation. Pulmonary point of view, he is feeling well. We will continue bronchodilator, keep head at 45 degrees, antibiotics as per Infectious Disease, stool softener, gastric prophylaxis. SCD to lower extremities. Thank you and we will follow with you. Theodore Atkins MD
--- NOTE | 2017-04-19 00:34 | CP.PCM.DIS ---
Provider - Provider Date of Admission: 04/13/17 06:32 Attending physician: Evie Ponce MD Primary care physician: Cody Varma MD Consults: dc 04/18/17 This is a 71 year old male with PMHx upper and lower GI bleeds, esophageal varices, alcohol and tobacco abuse who presented BIBA for episode of hematemesis. Per EMS, patient has been experiencing vomiting for about 1 week now, but earlier tonight was the first episode of blood within the vomit. Patient is both blind and hard of hearing. Patient has also been experiencing diarrhea for the past week as well. Patient is a poor historian but states that he is otherwise fine. Of note, patient had recent endoscopy on 04/09/17 which showed multiple bleeding varicose. Two bands placed with incomplete eradication of varices. However, the bleeding had stopped by the end of the procedure. Time Spent in preparation of Discharge (in minutes): 60 Diagnosis - Discharge Diagnosis (1) Alcohol intoxication Status: Acute (2) GI bleed Status: Acute (3) Gastrointestinal bleeding, lower Status: Acute (4) Gastrointestinal bleeding, lower Status: Acute (5) Gastrointestinal bleeding, upper Status: Acute (6) Hip fracture, left Status: Acute (7) Syncope Status: Acute (8) Upper GI bleeding Status: Acute Hospital Course - Lab Results Lab Results: Micro Results 04/16/17 14:15 Ascitic Fluid Gram Stain - Final 04/16/17 14:15 Ascitic Fluid Anaerobic Culture - Final NO ANAEROBES ISOLATED. 04/16/17 14:15 Ascitic Fluid Body Fluid Culture - Preliminary NO GROWTH AFTER 2 DAYS 04/16/17 14:15 Ascitic Fluid Fungal Culture - Preliminary 04/14/17 00:40 Stool C. difficile Antigen & Toxin A,B (M - Final Most Recent Lab Values WBC 10.3 10^3/ul (4.5-11.0) 04/18/17 11:50 RBC 3.52 10^6/uL (3.5-6.1) 04/18/17 11:50 Hgb 9.8 g/dL (14.0-18.0) L 04/18/17 11:50 Hct 31.1 % (42.0-52.0) L 04/18/17 11:50 MCV 88.4 fl (80.0-105.0) 04/18/17 11:50 MCH 27.8 pg (25.0-35.0) 04/18/17 11:50 MCHC 31.5 g/dl (31.0-37.0) 04/18/17 11:50 RDW 16.4 % (11.5-14.5) H 04/18/17 11:50 Plt Count 210 10^3/uL (120.0-450.0) 04/18/17 11:50 MPV 10.0 fl (7.0-11.0) 04/18/17 11:50 Gran % 62.3 % (50.0-68.0) 04/18/17 11:50 Lymph % (Auto) 22.0 % (22.0-35.0) 04/18/17 11:50 Owen % (Auto) 9.0 % (1.0-6.0) H 04/18/17 11:50 Eos % (Auto) 6.6 % (1.5-5.0) H 04/18/17 11:50 Baso % (Auto) 0.1 % (0.0-3.0) 04/18/17 11:50 Gran # 6.41 (1.4-6.5) 04/18/17 11:50 Lymph # 2.3 (1.2-3.4) 04/18/17 11:50 Owen # 0.9 (0.1-0.6) H 04/18/17 11:50 Eos # 0.7 (0.0-0.7) 04/18/17 11:50 Baso # 0.01 K/mm3 (0.0-2.0) 04/18/17 11:50 PT 13.4 Seconds (9.9-11.8) H 04/13/17 04:00 INR 1.24 (0.93-1.08) H 04/13/17 04:00 APTT 32.4 Seconds (23.7-30.8) H 04/13/17 04:00 Sodium 143 mmol/L (132-148) 04/18/17 11:50 Potassium 3.7 mmol/L (3.6-5.0) 04/18/17 11:50 Chloride 109 mmol/L (98-107) H 04/18/17 11:50 Carbon Dioxide 26 mmol/L (21-33) 04/18/17 11:50 Anion Gap 12 (10-20) 04/18/17 11:50 BUN 17 mg/dL (7-21) 04/18/17 11:50 Creatinine 0.5 mg/dL (0.5-1.4) 04/18/17 11:50 Est GFR ( Amer) > 60 04/18/17 11:50 Est GFR (Non-Af Amer) > 60 04/18/17 11:50 Random Glucose 88 mg/dL (70-110) 04/18/17 11:50 Calcium 7.7 mg/dL (8.4-10.5) L 04/18/17 11:50 Magnesium 2.1 mg/dL (1.7-2.2) 04/18/17 11:50 Total Bilirubin 0.7 mg/dL (0.2-1.3) 04/18/17 11:50 AST 34 U/L (17-59) 04/18/17 11:50 ALT 36 U/L (7-56) 04/18/17 11:50 Alkaline Phosphatase 195 U/L (38-126) H D 04/18/17 11:50 Total Protein 5.4 g/dL (5.8-8.3) L 04/18/17 11:50 Albumin 2.7 g/dL (3.0-4.8) L 04/18/17 11:50 Globulin 2.7 gm/dL 04/18/17 11:50 Albumin/Globulin Ratio 1.0 (1.1-1.8) L 04/18/17 11:50 Lipase 33 U/L (23-300) 04/13/17 04:00 Fluid Source Peritoneal/ascites 04/16/17 14:15 Fluid Appearance Clear (CLEAR) 04/16/17 14: Fluid WBC 88.0 /uL (0.0-300.0) 04/16/17 14:15 Fluid RBC 79.0 /uL (0.0-0.0) H 04/16/17 14:15 Fluid Tot Cell Count 100 (0-0) H 04/16/17 14:15 Fluid Neutrophils 48.9 % (0-0) H 04/16/17 14:15 Fluid Lymphocytes 51.1 % (0-0) H 04/16/17 14:15 Fld Monocyte/Macrophag 0 % (0-0) 04/16/17 14:15 Fluid Comment TEST NOT PERFORMED 04/16/17 14:15 Pleural Lipase 18.0 U/L (<10) H 04/16/17 14:41 Stool Occult Blood Positive (NEGATIVE) H 04/17/17 15:45 Blood Type AB POSITIVE 04/13/17 04:00 Antibody Screen Negative 04/13/17 04:00 BBK History Checked Patient has bt 04/13/17 04:00 - Hospital Course Hospital Course: This is a 71 year old male with PMHx upper and lower GI bleeds, esophageal varices, alcohol and tobacco abuse who presented BIBA for episode of hematemesis. Per EMS, patient has been experiencing vomiting for about 1 week now, but earlier tonight was the first episode of blood within the vomit. Patient is both blind and hard of hearing. Patient has also been experiencing diarrhea for the past week as well. Patient is a poor historian but states that he is otherwise fine. Of note, patient had recent endoscopy on 04/09/17 which showed multiple bleeding varicose. Two bands placed with incomplete eradication of varices. However, the bleeding had stopped by the end of the procedure. Assessment: Cirrhosis of the liver Abdominal ascites, status post paracentesis EtOH Upper GI bleed Recent EGD, esophageal varices status post band ligation Lung infiltrate seen on chest CT Abdominal pain/abdominal distention rule out SBP Improving leukocytosis Plan: Continue IV antibiotics monitor H&H Continue Protonix 40 daily Continue Carafate On Solu-Medrol tapering dose continue Nadalol 20 mg daily soft low residual diet [facility] Discharge Exam - Head Exam Head Exam: NORMOCEPHALIC - Eye Exam Eye Exam: EOMI, Normal appearance, PERRL Pupil Exam: NORMAL ACCOMODATION, PERRL - GI/Abdominal Exam GI & Abdominal Exam: Normal Bowel Sounds - Rectal Exam Rectal Exam: NORMAL INSPECTION - Exam Exam: Circumcision, NORMAL INSPECTION External exam: NORMAL EXTERNAL EXAM Speculum exam: NORMAL SPECULUM EXAM Bimanual exam: NORMAL BIMANUAL EXAM - Neurological Exam Neurological exam: Alert, CN II-XII Intact, Normal Gait, Oriented x3, Reflexes Normal - Psychiatric Exam Psychiatric exam: Normal Affect, Normal Mood - Skin Skin Exam: Dry, Intact, Normal Color, Warm Discharge Plan - Follow Up Plan Condition: FAIR Disposition: TRANSF TO SNF Instructions: Gastrointestinal Bleeding (DC) Referrals: Cody Varma MD [Primary Care Provider] -
== END 2017-04-18 13:02 | DRG 432 ==
LOC: ED 03:33 → ERH 06:32 → 2RSO 08:23
PROVIDERS: ADMIT Internal Medicine; ATTEND Internal Medicine
PROC: 3E0F7GC Introduction of Other Therapeutic Substance into Respiratory Tract, Via Natural or Artificial Opening (ICD-10-PCS; 2017-04-13)
PROC: 0W9G3ZZ Drainage of Peritoneal Cavity, Percutaneous Approach (ICD-10-PCS; principal; 2017-04-16 12:30)
DX: K70.31 Alcoholic cirrhosis of liver with ascites (principal); I85.11 Secondary esophageal varices with bleeding; K65.2 Spontaneous bacterial peritonitis; J90 Pleural effusion, not elsewhere classified; K85.90 Acute pancreatitis without necrosis or infection, unspecified; E11.65 Type 2 diabetes mellitus with hyperglycemia; D64.9 Anemia, unspecified; J44.9 Chronic obstructive pulmonary disease, unspecified; E83.51 Hypocalcemia; F10.129 Alcohol abuse with intoxication, unspecified; I10 Essential (primary) hypertension; K21.0 Gastro-esophageal reflux disease with esophagitis; F32.9 Major depressive disorder, single episode, unspecified; R21 Rash and other nonspecific skin eruption; K80.20 Calculus of gallbladder without cholecystitis without obstruction; K59.09 Other constipation; F17.210 Nicotine dependence, cigarettes, uncomplicated; H40.9 Unspecified glaucoma; H26.9 Unspecified cataract; H54.8 Legal blindness, as defined in USA; H91.90 Unspecified hearing loss, unspecified ear; Z91.19 Patient's noncompliance with other medical treatment and regimen; Z86.73 Personal history of transient ischemic attack (TIA), and cerebral infarction without residual deficits

== ENCOUNTER 2017-04-18 13:08 | Inpatient (IN) | payer OTHER, MEDICAID ==
[2017-04-18 13:40] VITALS: BMI 23.1
[2017-04-18] MEDS ORDERED: Cefepime 1gm in NS 100ml 1 GM/100 ML BAG IVPB SCH (13:45)
[2017-04-18] MEDS: Mometasone 0.1% Cream(15 gm) TOP SCH (17:47)
[2017-04-18] MEDS ORDERED: Pneumococcal 23-Valent Vaccine IM ONE (18:37)
[2017-04-18] MEDS: Albuterol-Ipratrop 3 mg / 0.5 (3 ml) UD IH SCH (20:34)
[2017-04-19] MEDS: Albuterol-Ipratrop 3 mg / 0.5 (3 ml) UD IH SCH ×5 (01:35→19:38)
[2017-04-19] MEDS: Cefepime 1gm in NS 100ml 1 GM/100 ML BAG IVPB SCH (05:29)
[2017-04-19] MEDS: guaiFENesin 100 mg/5 ml Syrup UD PO PRN (05:30)
[2017-04-19] MEDS: Pantoprazole 40 mg EC Tab PO SCH (06:17)
[2017-04-19 08:03] LABS: BASO # 0.02 K/mm3 (0.0-2.0); BASO % 0.2 % (0.0-3.0); EOS # 1.2 (0.0-0.7); EOS % 9.6 % (1.5-5.0); GRAN # 7.52 (1.4-6.5); HEMATOCRIT 32.5 % (42.0-52.0); LYMPH % 23.8 % (22.0-35.0); MEAN CELL VOLUME 86.4 fl (80.0-105.0); MEAN CORPUSCULAR HEMOGLOBIN 27.4 pg (25.0-35.0); MEAN CORPUSCULAR HGB CONC 31.7 g/dl (31.0-37.0); MONO # 0.9 (0.1-0.6); MONO % 7.4 % (1.0-6.0); RED CELL DISTRIBUTION WIDTH 16.2 % (11.5-14.5); WHITE BLOOD COUNT 12.8 10^3/ul (4.5-11.0)
[2017-04-19 08:28] LABS: ALB/GLOB RATIO 0.9 (1.1-1.8); ALKALINE PHOSPHATASE 248 U/L (38-126); ALT/SGPT 37 U/L (7-56); AST/SGOT 38 U/L (17-59); BILIRUBIN,TOTAL 1.2 mg/dL (0.2-1.3); BLOOD UREA NITROGEN 16 mg/dL (7-21); CALCIUM 7.7 mg/dL (8.4-10.5); CARBON DIOXIDE 23 mmol/L (21-33); CHLORIDE 109 mmol/L (95-110); GFR AFRICAN-AMERICAN > 60; GLUCOSE,RANDOM 71 mg/dL (70-110); SODIUM 137 mmol/L (132-148); TOTAL PROTEIN 5.4 g/dL (5.8-8.3)
[2017-04-19] MEDS: Mometasone 0.1% Cream(15 gm) TOP SCH ×2 (10:22→17:29)
--- NOTE | 2017-04-19 13:59 | CP.PCM.PN ---
Subjective - Date & Time of Evaluation Date of Evaluation: 04/19/17 Time of Evaluation: 10:20 - Subjective Subjective: Seen and examined at the bedside earlier today, patient is awake alert and oriented, denies nausea, vomiting, or abdominal pain. Tolerating oral intake no reports of melena or bright red blood per rectum, no hematemesis. Objective - Vital Signs/Intake and Output Vital Signs (last 24 hours): Temp Pulse Resp BP Pulse Ox 98.9 F 74 14 124/69 97 04/18/17 18:27 04/19/17 10:21 04/18/17 18:27 04/19/17 10:21 04/18/17 16:00 Intake and Output: 04/19/17 04/19/17 06:59 18:59 Intake Total 420 Balance 420 - Medications Medications: Current Medications Albuterol/Ipratropium (Duoneb 3 Mg/0.5 Mg (3 Ml) Ud) 3 ml IH [id number] JUANITA PRN Reason: Protocol Last Admin: 04/19/17 13:04 Dose: 3 ml Diphenhydramine HCl (Benadryl) 25 mg PO BID PRN; Protocol PRN Reason: Itching / Pruritus Guaifenesin (Robitussin) 100 mg PO Q4H PRN; Protocol PRN Reason: Cough Last Admin: 04/19/17 05:30 Dose: 100 mg Cefepime HCl (Maxipime 1gm) 1 gm in 100 mls @ 100 mls/hr IVPB 0600 JUANITA PRN Reason: Protocol Last Admin: 04/19/17 05:29 Dose: 100 mls/hr Lactulose (Enulose) 10 gm PO HS JUANITA Mometasone Furoate (Elocon Cream) 0 gm TOP BID JUANITA PRN Reason: Protocol Last Admin: 04/19/17 10:22 Dose: 1 appl Montelukast Sodium (Singulair) 10 mg PO DAILY JUANITA PRN Reason: Protocol Last Admin: 04/19/17 10:24 Dose: 10 mg Nadolol (Corgard) 20 mg PO DAILY JUANITA PRN Reason: Protocol Last Admin: 04/19/17 10:21 Dose: 20 mg Nicotine (Nicoderm Cq) 1 patch TD DAILY JUANITA PRN Reason: Protocol Last Admin: 04/19/17 10:22 Dose: 1 patch Ondansetron HCl (Zofran Inj) 4 mg IVP Q6H PRN; Protocol PRN Reason: Nausea/Vomiting Pantoprazole Sodium (Protonix Ec Tab) 40 mg PO 0600 [facility] Last Admin: 04/19/17 06:17 Dose: 40 mg Prednisone (Prednisone Tab) 5 mg PO DAILY [facility] Last Admin: 04/19/17 10:23 Dose: 5 mg Thiamine HCl (Vitamin B1 Tab) 100 mg PO DAILY JUANITA PRN Reason: Protocol Last Admin: 04/19/17 10:24 Dose: 100 mg - Labs Labs: 04/19/17 07:40 04/19/17 07:40 - Constitutional Appears: No Acute Distress - Head Exam Head Exam: NORMOCEPHALIC - Eye Exam Eye Exam: Normal appearance. absent: Scleral icterus - ENT Exam ENT Exam: Mucous Membranes Moist - Neck Exam Neck Exam: Normal Inspection - Respiratory Exam Respiratory Exam: NORMAL BREATHING PATTERN. absent: Respiratory Distress - Cardiovascular Exam Cardiovascular Exam: +S1, +S2 - GI/Abdominal Exam GI & Abdominal Exam: Distended, Soft. absent: Guarding, Tenderness, Normal Bowel Sounds, Rebound - Extremities Exam Extremities Exam: Normal Capillary Refill. absent: Pedal Edema - Neurological Exam Neurological Exam: Alert, Awake, Oriented x3 - Skin Skin Exam: Dry, Warm Assessment and Plan - Assessment and Plan (Free Text) Assessment: Assessment: Cirrhosis of the liver Abdominal ascites, status post paracentesis EtOH Upper GI bleed Recent EGD, esophageal varices status post band ligation Lung infiltrate seen on chest CT Improving leukocytosis Plan: Continue IV antibiotics monitor H&H Continue Protonix 40 daily Continue Carafate On prednisone continue Nadalol 20 mg daily soft low residual diet On lactulose in the evening, hold for diarrhea Seen and discussed with Dr. Oropeza.
[2017-04-20] MEDS: Albuterol-Ipratrop 3 mg / 0.5 (3 ml) UD IH SCH ×4 (01:29→22:08)
--- NOTE | 2017-04-20 04:30 | CON ---
PULMONARY CONSULTATION NOTE DATE: 04/19/2017 REFERRING PHYSICIAN: Evie Ponce MD REASON FOR CONSULT: Chronic obstructive lung disease, pulmonary infiltrate, and may have sleep apnea syndrome. HISTORY OF PRESENT ILLNESS: This is a 71-year-old gentleman well known to me. He is legally blind, chronic obstructive lung disease, history of alcohol abuse with cirrhotic liver, and esophageal gastric varices with GI bleed. He has ascites who was recently admitted with GI bleed, stabilizes, signed against medical advice and left. He came back within 24 to 48 hours with abdominal pain, cough, and shortness of breath, found to have pneumonia and also significant ascites. He underwent volume paracentesis removal of fluid almost 3 L, felt much better and now admitted to TCU for continued care. He is lying in the bed, feels okay, and short of breath with exertion. No chest pain, no nausea, and no vomiting. No leg pain or leg swelling. PAST MEDICAL HISTORY: Obstructive lung disease, active smoker, esophageal varices, GI bleed, cirrhotic liver, and legally blind. FAMILY HISTORY: No significant cardiopulmonary disease reported. SOCIAL HISTORY: Active smoker. Denied any alcohol use at present time. Energy is unknown. MEDICATIONS: He is on Benadryl 25 mg twice a day p.r.n, nadolol 20 mg daily, albuterol and Atrovent nebulizer q. 6 hours., mometasone to the affected area twice a day, lactulose 10 gram at bedtime, cefepime 1 gram IV daily, Nicoderm patch daily, prednisone 5 mg daily, Protonix 40 mg daily, Robitussin 10 mg daily, vitamin B1 100 mg daily, and Zofran p.r.n. basis. LABORATORY DATA: Shows hemoglobin of 10.3, hematocrit of 32.5, WBC of 12.8, and platelet count is 216. Sodium is 137, potassium is 4.0, chloride is 109, bicarbonate is 23, BUN is 16, and creatinine is 0.5. Glucose is 71, calcium is 7.7, AST is 38, ALT is 37, and alkaline phosphatase is 248. Ascitic fluid so far there is no growth. Stool for Clostridium difficile is negative. IMPRESSION AND PLAN: Chronic obstructive lung disease, pleural effusion, ascites, may have peritonitis, gastroesophageal reflux disease, esophageal varices, and history of gastrointestinal bleed. Pulmonary point of view, he is doing okay. Continue bronchodilator, keep head at 45 degrees, continue antibiotics, and stool softener. sequential compression device to lower extremities as the patient precaution. Out of bed to chair, physical therapy, and fall precaution. The patient has to stop smoking. He is being followed by Surgery and GI. Thank you and we will follow with you. Theodore Atkins MD
[2017-04-20] MEDS: Cefepime 1gm in NS 100ml 1 GM/100 ML BAG IVPB SCH (05:52)
[2017-04-20] MEDS: Pantoprazole 40 mg EC Tab PO SCH (05:53)
[2017-04-20] MEDS: Mometasone 0.1% Cream(15 gm) TOP SCH ×2 (11:48→17:36)
[2017-04-20] MEDS: guaiFENesin 100 mg/5 ml Syrup UD PO PRN (19:36)
--- NOTE | 2017-04-20 20:01 | PN ---
PULMONARY PROGRESS NOTE DATE: 04/20/2017 REFERRING PHYSICIAN: Evie Ponce MD SUBJECTIVE: He is lying in the bed, sleepy, arousable. No headache. No rhinitis. No nausea. No vomiting. Abdominal pain is better. No dysuria. No leg pain. No leg swelling. OBJECTIVE: GENERAL: No acute distress. VITAL SIGNS: Temperature is 98, heart rate 74, respiratory rate is 20, blood pressure 135/65, pulse ox 95% on 2 L nasal cannula. HEENT: Moist mucous membranes. Small oral cavity. NECK: Supple. No JVD. LUNGS: Has a few crackles. HEART: S1 and S2. ABDOMEN: Positive bowel sounds, has some ascites, tenderness on deep palpation. EXTREMITIES: There is no edema. NEUROLOGIC: Awake, alert, follows simple command. MEDICATIONS: He is on Benadryl 25 mg twice a day p.r.n., nadolol 20 mg daily, albuterol Atrovent nebulizer q.6 hours, lactulose 10 g p.o. daily, Cefepime 1 g daily, also NicoDerm patch daily, prednisone 5 mg daily, Protonix 40 mg daily, Robitussin 100 mg q. 4 hours, Singulair 10 mg daily, vitamin B1 100 mg daily, Zofran p.r.n. basis. LABORATORY DATA: Reviewed. No new lab is available since yesterday. IMPRESSION AND PLAN: Chronic obstructive lung disease, pleural effusion, ascites, may have peritonitis, esophageal varices, gastroesophageal reflux disease, gastrointestinal bleed, activities of daily living dysfunction. Spoke to the patient today. Continue antibiotics, bronchodilator, keep head at 45 degrees, gastric prophylaxis, SCD to lower extremities, fall precaution, continue therapy. Thank you. We will follow with you. Theodore Atkins MD
--- NOTE | 2017-04-20 23:35 | HP ---
CHIEF COMPLAINT: Fatigue, tired, and deconditioning. HISTORY OF PRESENT ILLNESS: Mr. Esteban Carrion is a 71 years old male with history of COPD, GI bleeding, cirrhosis of the liver, legally blind, esophageal gastric varices, ascites, was recently tapped, left against medical advice, came back with GI bleeding and shortness of breath, coughing, found to have pneumonia, and significant ascites. Underwent volume paracentesis, removal of fluid of 3 L, felt better. Transferred to TCU for further treatment for continuity of care and for physical therapy. PAST MEDICAL HISTORY: As above, obstructive lung disease, active smoker, active drinker, esophageal varices, GI bleeding, cirrhosis of the liver, COPD, and legally blind. FAMILY HISTORY: Father and mother noncontributory. HABITS: Actively smoker. Actively drinker. No drugs. HOME MEDICATIONS: Reviewed by me. ALLERGIES: THE PATIENT IS NOT ALLERGIC WITH ANY MEDICATIONS. REVIEW OF SYSTEMS: The patient seen and examined on the bedside, looking comfortable. No nausea, vomiting, or diarrhea. No hematuria. No hematochezia. No swelling of the leg. No chest pain or palpitation. No headache or dizziness. PHYSICAL EXAMINATION: VITAL SIGNS: Temperature 99, pulse 82, blood pressure 101/60, and respiratory rate 14. HEENT: Head is normocephalic and atraumatic. Eyes, PERRLA. Extraocular muscles are intact. Conjunctivae clear. Nose patent. Mucous membrane moist. NECK: Supple. No carotid bruits, JVD, or thyromegaly. CHEST: Bilaterally symmetrical. HEART: S1 and S2 positive. LUNGS: Clear to auscultation. ABDOMEN: Soft. Bowel sounds present. No organomegaly. EXTREMITIES: No edema. No cyanosis. NEUROLOGICAL: The patient is awake, alert. Moving all 4 extremities. No focal deficits. LABORATORY DATA: White blood cells is 12.8, hemoglobin 10.3, hematocrit 32.5, and platelets 216. Sodium 137, potassium 4.0, BUN 15, creatinine 0.9, and calcium 7.7. ASSESSMENT AND PLAN: Mr. Esteban Carrion is 71 years old male with leukocytosis, anemia, hypocalcemia, chronic obstructive pulmonary disease, history of pneumonia, anemia status post blood transfusion, pleural effusion, ascites, peritonitis, gastroesophageal reflux disease, esophageal varices, and history of gastrointestinal bleeding. Continue bronchodilators, stool softeners, sequential compression devices to lower extremities, physical therapy, out of bed, fall precautions, and has to cut smoking and drinking. We will follow up. Evie Ponce MD
[2017-04-21] MEDS: Albuterol-Ipratrop 3 mg / 0.5 (3 ml) UD IH SCH ×4 (03:15→20:30)
[2017-04-21] MEDS: Pantoprazole 40 mg EC Tab PO SCH (05:19)
[2017-04-21] MEDS: Cefepime 1gm in NS 100ml 1 GM/100 ML BAG IVPB SCH (05:19)
[2017-04-21] MEDS: Mometasone 0.1% Cream(15 gm) TOP SCH ×2 (12:17→17:08)
--- NOTE | 2017-04-21 22:20 | PN ---
DATE: 04/21/2017 SUBJECTIVE: This patient was seen and evaluated earlier. The patient is doing much better now, tolerating the diet. PHYSICAL EXAMINATION: VITAL SIGNS: On examination, temperature is 98.5, blood pressure ____, O2 saturation is 95%. Pulse 75. HEENT: Atraumatic, anicteric. NECK: Supple. LUNGS: Bilateral air entry present. Occasional crackles at the base. ABDOMEN: Softly distended. Bowel sounds present. Ascites present. EXTREMITIES: No cyanosis, no clubbing and no edema. NEUROLOGIC: Alert, and oriented. LABORATORY DATA: Hemoglobin 10.3, hematocrit 32.5, WBC 12.8, platelets 216. Alkaline phosphate 248. No labs done. This labs was done on 04/19/2017. IMPRESSION: 1. This 71-year-old patient with a history of decompensated cirrhosis, gastrointestinal bleeding from esophageal varices, status post band ligation. 2. Ascites, status post paracentesis. Ascitic fluid analysis is negative for spontaneous bacterial peritonitis. 3. Lung infiltrate, on IV antibiotics. PLAN: Would recommend, 1. To continue the nadolol. 2. Continue the Protonix. 3. On cefepime and also on prednisone. The patient is on prednisone 5 mg daily, tapering dose. 4. Continue to closely follow up of the hemoglobin and hematocrit. Thank you very much for allowing us to participate in the care of this patient. Deyanira Oropeza MD
--- NOTE | 2017-04-21 22:33 | PN ---
DATE: SUBJECTIVE: The patient is 71 years old male. The patient seen and examined on the bedside, looking comfortable. No nausea, vomiting or diarrhea. No hematuria or hematochezia. No swelling of the legs. No chest pain. No palpitations. No headache. No dizziness. Feeling better. PHYSICAL EXAMINATION: VITAL SIGNS: Temperature 99, pulse 73, blood pressure 103/57 and respiratory rate 20. HEENT: Head is normocephalic and atraumatic. Eyes, PERRLA. Extraocular muscle intact. Conjunctivae clear. Nose is patent. Mucous membrane moist. NECK: Supple. No carotid bruits. No JVD or thyromegaly. CHEST: Bilaterally symmetrical. HEART: S1 and S2 positive. LUNGS: Clear to auscultation. ABDOMEN: Soft. Bowel sounds positive. No organomegaly. EXTREMITIES: No edema. No cyanosis. NEUROLOGIC: The patient is awake and alert. Moving all 4 extremities. No focal deficits. LABORATORY DATA: White blood cell is 12.8, hemoglobin 10.2, hematocrit 32.5, and platelets 216. Sodium 137, potassium 4.0, BUN 15, and creatinine 0.5. MEDICATIONS: Benadryl, nadolol, DuoNeb, Ecotrin, lactulose, Maxipime, nicotine, prednisone, Protonix, Robitussin, Singulair, B1 and Zofran. ASSESSMENT AND PLAN: Mr. Esteban Carrion is 71 years old male with leukocytosis, anemia, has multiple medical problems and very noncompliant, actively smoking and drinking, has history of chronic obstructive lung disease, pleural effusion, ascites, esophageal varices, gastroesophageal reflux disease, gastrointestinal bleeding, He is not able to do his activities of daily living, getting physical therapy. Sequential compression device to the lower extremities. Cirrhosis of the liver. The patient getting Benadryl because of his itchiness. Getting antibiotics and nicotine patch. Out of bed to chair, physical therapy. Evie Ponce MD
[2017-04-22] MEDS: guaiFENesin 100 mg/5 ml Syrup UD PO PRN ×2 (01:01→21:37)
--- NOTE | 2017-04-22 01:11 | PN ---
PULMONARY PROGRESS NOTE REFERRING PHYSICIAN: Dr. Ponce. SUBJECTIVE: The patient is lying in the bed, daughter is at bedside, feels better today. No headache, no rhinitis, no cough, no sputum production. Denies any abdominal pain. No leg pain, no leg swelling. OBJECTIVE: GENERAL: In no acute distress. VITAL SIGNS: Temperature is 99, heart rate is 73, respiratory rate is 20, blood pressure 103/57, pulse ox 96% on room air. HEENT: Moist mucous membranes. Small oral cavity. NECK: Supple. No JVD. LUNGS: Has a few scattered rhonchi. HEART: S1 and S2. ABDOMEN: Soft, nontender. Has ascites. EXTREMITIES: No edema. NEUROLOGIC: Awake, alert, follows simple command. MEDICATIONS: He is on Benadryl 25 mg twice a day p.r.n., nadolol 20 mg daily, albuterol Atrovent nebulizer q.6 hours, mometasone affected area twice a day, lactulose 10 g at bedtime, Cefepime 1 g IV daily, NicoDerm patch daily, prednisone 5 mg daily, Protonix 40 mg daily, Robitussin 100 mg q. 4 hour p.r.n., Singulair 10 mg daily, vitamin B 100 mg daily, Zofran p.r.n. basis. LABORATORY DATA: Reviewed. No new lab is available since yesterday. IMPRESSION AND PLAN: Chronic obstructive lung disease, pleural effusion, ascites, may have peritonitis, esophageal varices, gastroesophageal reflux, gastrointestinal bleed, activities of daily living dysfunction. Spoke to the patient's daughter at bedside, all the questions answered. Advised against smoking. Continue antibiotics, bronchodilator, SCD to lower extremities, fall precaution, continue therapy. Thank you. We will follow with you. Theodore Atkins MD
[2017-04-22] MEDS: Albuterol-Ipratrop 3 mg / 0.5 (3 ml) UD IH SCH ×4 (02:23→21:20)
[2017-04-22] MEDS: Cefepime 1gm in NS 100ml 1 GM/100 ML BAG IVPB SCH (05:09)
[2017-04-22] MEDS: Pantoprazole 40 mg EC Tab PO SCH (05:09)
--- NOTE | 2017-04-22 09:10 | PN ---
DATE: 04/20/2017 SUBJECTIVE: The patient is 71 years old male. The patient is seen and examined on the bedside, looking comfortable, little bit anxious and wants to go home. Angry with nurses, because they are not feeding him very well as per the patient. There is no hematuria or hematochezia. No headache. No dizziness. No chest pain. No palpitations. No shortness of breath. PHYSICAL EXAMINATION: VITAL SIGNS: Temperature 98.5, pulse 71, blood pressure 135/65, respiratory rate 20. HEENT: Head is normocephalic and atraumatic. Eyes, PERRLA. Extraocular muscles intact. Conjunctivae clear. Nose patent. Mucous membrane moist. NECK: Supple. No carotid bruit. No thyromegaly. CHEST: Bilaterally symmetrical. HEART: S1 and S2 positive. LUNGS: Clear to auscultation.. ABDOMEN: Soft. Bowel sounds positive. No organomegaly. EXTREMITIES: No edema. No cyanosis. NEUROLOGIC: The patient is awake and alert. Moving all four extremities. No focal deficit. MEDICATIONS: Benadryl, Coreg, albuterol, Elocon, Enulose, Maxipime, Nicoderm patch, prednisone, Protonix, Robitussin, Singulair, thiamine, Zofran. LABORATORY DATA: Sodium 137, potassium 4.0, BUN 16, creatinine 0.5, glucose 71. ASSESSMENT AND PLAN: Mr. Esteban Carrion is 71 years old male with multiple medical problems. 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 Recent EGD shows esophageal varices status post band ligation. Lung infiltrates, got antibiotics, improving leukocytosis, noncompliant, history of anemia status post blood transfusion. Continue IV antibiotics. We will repeat H and H. Continue Protonix. Continue Carafate. Tapering dose of prednisone, nadolol. Soft low residual diet. GI and DVT prophylaxis. We will follow. Evie Ponce MD
[2017-04-22] MEDS: Mometasone 0.1% Cream(15 gm) TOP SCH ×2 (09:45→18:03)
--- NOTE | 2017-04-23 00:41 | PN ---
PULMONARY PROGRESS NOTE DATE: 04/22/2017 REFERRING PHYSICIAN: Dr. Ponce. SUBJECTIVE: He is out of bed to chair, feels better. No headache, no rhinitis. No cough. No nausea and no vomiting. Has ascites. No leg swelling. OBJECTIVE: GENERAL: No acute distress. VITAL SIGNS: Temperature is 98, heart rate is 72, respiratory rate is 20, blood pressure is 125/60. HEENT: Moist mucous membranes. No ulcer or thrush noted. NECK: Supple. No JVD. LUNGS: Had fair air flow with few rhonchi. HEART: S1 and S2. ABDOMEN: Positive ascites. No tenderness. EXTREMITIES: There is no edema. NEUROLOGIC: Awake and alert. Follows simple commands. MEDICATIONS: He is on Benadryl 25 mg twice a day p.r.n., nadolol 20 mg daily, DuoNeb q. 6 hour, he is on mometasone topically twice a day, lactulose 10 mg at bedtime, cefepime 1 g daily, Nicoderm patch daily, prednisone 5 mg daily, Protonix 40 mg daily, Robitussin 100 mg q. 4 hour p.r.n., Singulair 10 mg daily, vitamin B 100 mg daily, and Zofran p.r.n. basis. LABORATORY DATA: Shows no new lab is done since yesterday. IMPRESSION AND PLAN: Chronic obstructive lung disease, pleural effusion, being treated for peritonitis, esophageal varices, gastroesophageal reflux disease, gastrointestinal bleed, activities of daily living dysfunction, legally blind. Pulmonary point of view; continue bronchodilator, fall precaution, continue antibiotics, sequential compressive devices to lower extremities, continue therapy. Thank you and we will follow with you. Theodore Atkins MD
[2017-04-23] MEDS: guaiFENesin 100 mg/5 ml Syrup UD PO PRN (01:38)
[2017-04-23] MEDS: Albuterol-Ipratrop 3 mg / 0.5 (3 ml) UD IH SCH ×4 (02:39→20:01)
--- NOTE | 2017-04-23 06:55 | PN ---
DATE: SUBJECTIVE: The patient is a 71-year-old male. The patient is seen and examined on the bedside and he is moderately okay right now. No nausea, vomiting or diarrhea. No hematuria or hematochezia. Doing physical therapy. Improving very slowly. No shortness of breath. PHYSICAL EXAMINATION VITAL SIGNS: Temperature 98.4, pulse 72, blood pressure 125/60, and respiratory rate 14. HEENT: Head is normocephalic and atraumatic. Eyes, PERRLA. Extraocular muscles intact. Conjunctivae clear. Nose patent. Mucous membrane moist. NECK: Supple. No carotid bruit, JVD or thyromegaly. CHEST: Bilaterally symmetrical. HEART: S1 and S2 positive. LUNGS: Clear to auscultation. ABDOMEN: Soft. Bowel sounds present. No organomegaly. EXTREMITIES: No edema. No cyanosis. NEUROLOGIC: The patient is awake and alert. Moving all 4 extremities. No focal deficit. MEDICATIONS: Benadryl, nadolol, DuoNeb, Elocon cream, lactulose, Maxipime, Nicoderm, prednisone, Protonix, Singulair, thiamine, and Zofran. LABORATORY DATA: We do not have his laboratory data. ASSESSMENT AND PLAN: Mr. Esteban Carrion is a 71-year-old male with leukocytosis, anemia, hypocalcemia, chronic obstructive lung disease, pleural effusion, ascites, status post paracentesis, peritonitis, esophageal varices, gastroesophageal reflux disease, history of gastrointestinal bleeding, was not able to do his ADL, now he is getting physical therapy. Urged to quit smoking and drinking. Continue antibiotics, bronchodilators. Sequential compression device to lower extremities. Fall precautions. Physical therapy. History of decompensated cirrhosis of the liver, bleeding from esophageal varices, status post band ligation. Ascitic fluid was negative for spontaneous bacterial peritonitis. Lung infiltrates, on IV antibiotics. Continue nadolol, Protonix, cefepime and tapering dose of steroids. We will follow. Evie Ponce MD
[2017-04-23] MEDS: Mometasone 0.1% Cream(15 gm) TOP SCH ×2 (12:01→18:43)
[2017-04-23] MEDS: Cholestyramine 4 gm/Pkt UD PO SCH (18:45)
--- NOTE | 2017-04-24 00:53 | PN ---
SUBJECTIVE: The patient is a 71-year-old male. The patient is seen and examined on the bedside. Looking comfortable. No nausea, vomiting or diarrhea. No hematuria or hematochezia. Did physical therapy. No chest pain, no palpitation. PHYSICAL EXAMINATION VITAL SIGNS: Temperature 98.7, pulse 79, blood pressure 109/65, and respiratory rate 20. HEENT: Head is normocephalic and atraumatic. Eyes: PERRLA. Extraocular muscles intact. Conjunctivae clear. Nose patent. Mucous membrane moist. NECK: Supple. No carotid bruit, JVD or thyromegaly. CHEST: Bilaterally symmetrical. HEART: S1 and S2 positive. LUNGS: Clear to auscultation. ABDOMEN: Soft. No tenderness. No organomegaly. EXTREMITIES: No edema. No cyanosis. NEUROLOGIC: The patient is awake and alert. Moving all 4 extremities. No focal deficit. MEDICATIONS: Benadryl, Coreg, DuoNeb, Ecotrin, Enulose, Maxipime, Nicoderm patch, pantoprazole, cholestyramine, Robitussin, Singulair, thiamine, Zofran. LABORATORY DATA: We do not have recent labs today, but I reviewed old labs. ASSESSMENT AND PLAN: The patient is a 71-year-old male with multiple medical problems, chronic obstructive lung disease, pleural effusion, being treated for peritonitis, esophageal varices, gastroesophageal reflux disease, gastrointestinal bleeding, history of heavy alcoholic drinking, cirrhosis of the liver, was not able to do her ADL, legally blind, getting physical therapy, getting IV antibiotics, fall precautions. Gastrointestinal and deep venous thrombosis prophylaxis. Repeat labs. We will follow up. Evie Ponce MD
[2017-04-24] MEDS: Albuterol-Ipratrop 3 mg / 0.5 (3 ml) UD IH SCH ×4 (01:05→20:07)
[2017-04-24] MEDS: Cefepime 1gm in NS 100ml 1 GM/100 ML BAG IVPB SCH (05:34)
[2017-04-24] MEDS: Pantoprazole 40 mg EC Tab PO SCH (05:35)
[2017-04-24] MEDS: guaiFENesin 100 mg/5 ml Syrup UD PO PRN (06:49)
--- NOTE | 2017-04-24 08:01 | PN ---
DATE: 04/23/2017 REFERRING PHYSICIAN: Dr. Ponce. SUBJECTIVE: The patient is lying in the bed, head at 45 degrees. Night was unremarkable. Feels better. No cough, no sputum. No nausea, no vomiting, no abdominal pain, no dysuria. No leg pain, no leg swelling. OBJECTIVE: GENERAL: In no acute distress. VITAL SIGNS: Temperature is 98, heart rate is 70, respiratory rate is 20, blood pressure is 109/65, and pulse oximetry 100% room air. HEENT: Moist mucous membranes. Small oral cavity. NECK: Supple. No JVD. LUNGS: Had fair air flow with few rhonchi. HEART: S1 and S2. ABDOMEN: Soft, nontender. No organomegaly. EXTREMITIES: No edema. NEUROLOGIC: Awake and alert. Follows simple command. He is blind. MEDICATIONS: He is on Benadryl 25 mg twice a day p.r.n., Corgard is 20 mg daily, DuoNeb q. 6 hour, mometasone to the affected area twice a day, lactulose 10 g p.o. at bedtime, cefepime 1 g IV daily, Nicoderm patch daily, Protonix 40 mg daily, cholestyramine 4 g daily, Robitussin 100 mg q. 4 hours p.r.n., Singulair 10 mg daily, vitamin B1 100 mg daily, Zofran p.r.n. basis. LABORATORY DATA: Shows no new lab is available since yesterday. IMPRESSION AND PLAN: Chronic obstructive lung disease, pleural effusion, peritonitis, esophageal varices, gastroesophageal reflux disease, gastrointestinal bleed, activities of daily living dysfunction, legally blind. Pulmonary point of view, doing okay. Continue bronchodilator, keep head at 45 degrees, gastric prophylaxis, sequential compressive devices to lower extremities, physical therapy, and fall precaution. Thank you. We will follow with you. Theodore Atkins MD
[2017-04-24] MEDS: Mometasone 0.1% Cream(15 gm) TOP SCH ×2 (11:31→17:48)
[2017-04-24] MEDS: Cholestyramine 4 gm/Pkt UD PO SCH (11:36)
--- NOTE | 2017-04-24 13:04 | CP.PCM.PN ---
<Tasha Gallo - Last Filed: 04/24/17 13:01> Subjective - Date & Time of Evaluation Date of Evaluation: 04/24/17 Time of Evaluation: 10:15 - Subjective Subjective: Seen and examined at the bedside earlier today, chart was reviewed. Patient denies nausea, vomiting, or abdominal pain. No reports of overt GI bleed. Patient reports having bowel movements and tolerating oral intake. He reports he is feeling better and wants to go home. Reports cough is better. Objective - Vital Signs/Intake and Output Vital Signs (last 24 hours): Temp Pulse Resp BP Pulse Ox 98.7 F 79 14 110/59 L 100 04/23/17 17:52 04/23/17 17:52 04/23/17 17:52 04/24/17 11:31 04/23/17 17:52 - Medications Medications: Current Medications Albuterol/Ipratropium (Duoneb 3 Mg/0.5 Mg (3 Ml) Ud) 3 ml IH [id number] JUANITA PRN Reason: Protocol Last Admin: 04/24/17 07:24 Dose: 3 ml Cholestyramine Resin (Questran) 4 gm PO DAILY [facility] Last Admin: 04/24/17 11:36 Dose: 4 gm Diphenhydramine HCl (Benadryl) 25 mg PO BID PRN; Protocol PRN Reason: Itching / Pruritus Guaifenesin (Robitussin) 100 mg PO Q4H PRN; Protocol PRN Reason: Cough Last Admin: 04/24/17 06:49 Dose: 100 mg Cefepime HCl (Maxipime 1gm) 1 gm in 100 mls @ 100 mls/hr IVPB 0600 JUANITA PRN Reason: Protocol Last Admin: 04/24/17 05:34 Dose: 100 mls/hr Lactulose (Enulose) 10 gm PO HS JUANITA Last Admin: 04/23/17 21:34 Dose: 10 gm Mometasone Furoate (Elocon Cream) 0 gm TOP BID JUANITA PRN Reason: Protocol Last Admin: 04/24/17 11:31 Dose: Not Given Montelukast Sodium (Singulair) 10 mg PO DAILY JUANITA PRN Reason: Protocol Last Admin: 04/24/17 11:30 Dose: 10 mg Nadolol (Corgard) 20 mg PO DAILY JUANITA PRN Reason: Protocol Last Admin: 04/24/17 11:31 Dose: Not Given Nicotine (Nicoderm Cq) 1 patch TD DAILY JUANITA PRN Reason: Protocol Last Admin: 04/24/17 11:29 Dose: 1 patch Ondansetron HCl (Zofran Inj) 4 mg IVP Q6H PRN; Protocol PRN Reason: Nausea/Vomiting Pantoprazole Sodium (Protonix Ec Tab) 40 mg PO 0600 [facility] Last Admin: 04/24/17 05:35 Dose: 40 mg Thiamine HCl (Vitamin B1 Tab) 100 mg PO DAILY JUANITA PRN Reason: Protocol Last Admin: 04/24/17 11:30 Dose: 100 mg - Labs Labs: 04/19/17 07:40 04/19/17 07:40 - Constitutional Appears: No Acute Distress - Head Exam Head Exam: NORMOCEPHALIC - Eye Exam Eye Exam: Normal appearance. absent: Scleral icterus - ENT Exam ENT Exam: Mucous Membranes Moist - Respiratory Exam Respiratory Exam: NORMAL BREATHING PATTERN. absent: Respiratory Distress - Cardiovascular Exam Cardiovascular Exam: +S1, +S2 - GI/Abdominal Exam GI & Abdominal Exam: Distended, Soft, Normal Bowel Sounds. absent: Guarding, Tenderness, Rebound - Extremities Exam Extremities Exam: absent: Calf Tenderness, Pedal Edema - Neurological Exam Neurological Exam: Alert, Awake, Oriented x3 Assessment and Plan - Assessment and Plan (Free Text) Assessment: Assessment: Cirrhosis of the liver Abdominal ascites, status post paracentesis EtOH Upper GI bleed Recent EGD, esophageal varices status post band ligation Lung infiltrate seen on chest CT Improving leukocytosis Plan: monitor H&H Continue Protonix 40 daily continue Nadalol 20 mg daily soft low residual diet On Questran On lactulose in the evening, hold for diarrhea Seen and discussed with Dr. Oropeza. <Deyanira Oropeza V - Last Filed: 04/24/17 22:10> Objective - Vital Signs/Intake and Output Vital Signs (last 24 hours): Temp Pulse Resp BP Pulse Ox 98.4 F 80 18 124/68 97 04/24/17 16:00 04/24/17 16:00 04/24/17 16:00 04/24/17 16:00 04/24/17 16:00 - Medications Medications: Current Medications Albuterol/Ipratropium (Duoneb 3 Mg/0.5 Mg (3 Ml) Ud) 3 ml IH [id number] JUANITA PRN Reason: Protocol Last Admin: 04/24/17 20:07 Dose: 3 ml Cholestyramine Resin (Questran) 4 gm PO DAILY JUANITA Last Admin: 04/24/17 11:36 Dose: 4 gm Diphenhydramine HCl (Benadryl) 25 mg PO BID PRN; Protocol PRN Reason: Itching / Pruritus Guaifenesin (Robitussin) 100 mg PO Q4H PRN; Protocol PRN Reason: Cough Last Admin: 04/24/17 06:49 Dose: 100 mg Cefepime HCl (Maxipime 1gm) 1 gm in 100 mls @ 100 mls/hr IVPB 0600 JUANITA PRN Reason: Protocol Last Admin: 04/24/17 05:34 Dose: 100 mls/hr Lactulose (Enulose) 10 gm PO HS JUANITA Last Admin: 04/24/17 21:38 Dose: Not Given Mometasone Furoate (Elocon Cream) 0 gm TOP BID JUANITA PRN Reason: Protocol Last Admin: 04/24/17 17:48 Dose: Not Given Montelukast Sodium (Singulair) 10 mg PO DAILY JUANITA PRN Reason: Protocol Last Admin: 04/24/17 11:30 Dose: 10 mg Nadolol (Corgard) 20 mg PO DAILY JUANITA PRN Reason: Protocol Last Admin: 04/24/17 11:31 Dose: Not Given Nicotine (Nicoderm Cq) 1 patch TD DAILY JUANITA PRN Reason: Protocol Last Admin: 04/24/17 11:29 Dose: 1 patch Ondansetron HCl (Zofran Inj) 4 mg IVP Q6H PRN; Protocol PRN Reason: Nausea/Vomiting Pantoprazole Sodium (Protonix Ec Tab) 40 mg PO 0600 JUANITA Last Admin: 04/24/17 05:35 Dose: 40 mg Thiamine HCl (Vitamin B1 Tab) 100 mg PO DAILY JUANITA PRN Reason: Protocol Last Admin: 04/24/17 11:30 Dose: 100 mg - Labs Labs: 04/19/17 07:40 04/19/17 07:40 Attending/Attestation - Attestation I have personally seen and examined this patient.: Yes I have fully participated in the care of the patient.: Yes I have reviewed all pertinent clinical information, including history, physical exam and plan: Yes Notes (Text): This is an addendum to GI progress report dictated by Tasha Gallo APN.The patient was seen and examined earlier. Medical records, lab studies, imagings were reviewed. Last 24 hours events reviewed. Agreed with the above treatment plan as outlined in Tasha Gallo APN's notes the with the addition of the following abdomen softly distended bowel sounds present Continue nadolol May benefit from repeating EGD in few weeks to evaluate varices 04/24/17 22:09
--- NOTE | 2017-04-24 23:47 | PN ---
DATE: 04/24/2017 PULMONARY PROGRESS NOTE REFERRING PHYSICIAN: Dr. Ponce. SUBJECTIVE: He is sitting at side of the bed, could not do therapy today because not feeling well. No headache. No rhinitis. No nausea. No vomiting. No abdominal pain. No leg pain or leg swelling. OBJECTIVE: GENERAL: In no acute distress. VITAL SIGNS: Temperature is 98, heart rate is 79, respiratory rate is 20, blood pressure 110/59, and pulse oximetry 100% room air. HEENT: Moist mucous membranes. Small oral cavity. NECK: Supple. No JVD. LUNGS: Had fair airflow with few rhonchi. HEART: S1 and S2. ABDOMEN: Soft, nontender. No organomegaly. EXTREMITIES: There is no edema. NEUROLOGIC: Alert and awake. Follows simple command. MEDICATIONS: He is on Benadryl 25 mg twice a day p.r.n., Coreg 20 mg daily, DuoNeb q.6 hours, lactulose p.r.n. basis, cefepime 1 g IV daily, Nicoderm patch daily, Protonix 40 mg daily, cholestyramine 4 g daily, Robitussin 100 mg q.4 hours p.r.n., Singulair 10 mg daily, vitamin B 100 mg daily, Zofran p.r.n. basis. LABORATORY DATA: Reviewed. No new lab is available since yesterday. IMPRESSION AND PLAN: Chronic obstructive lung disease, pleural effusion, peritonitis, esophageal varices, status post bleed, gastroesophageal reflux disease, activities of daily living dysfunction, legally blind. Continue bronchodilator. Keep head at 45 degrees, gastric prophylaxis, sequential compressive devices to lower extremities, fall precaution. Continue therapy. The patient is urged to stop smoking. Thank you and we will follow with you. Theodore Atkins MD
[2017-04-25] MEDS: Albuterol-Ipratrop 3 mg / 0.5 (3 ml) UD IH SCH ×4 (01:21→20:22)
[2017-04-25] MEDS: Cefepime 1gm in NS 100ml 1 GM/100 ML BAG IVPB SCH (05:18)
[2017-04-25] MEDS: Pantoprazole 40 mg EC Tab PO SCH (05:19)
[2017-04-25] MEDS: guaiFENesin 100 mg/5 ml Syrup UD PO PRN ×3 (05:24→20:49)
--- NOTE | 2017-04-25 06:23 | PN ---
SUBJECTIVE: The patient is a 71 years old male. The patient was seen and examined on 04/2017, looking comfortable. No nausea, vomiting, diarrhea. No hematuria or hematochezia. He has had no swelling of the legs. No chest pain or palpitation. No headache or dizziness. PHYSICAL EXAMINATION VITAL SIGNS: Temperature 98, heart rate 79, respiratory rate 20, blood pressure 110/59, pulse ox 100% on room air. HEENT: Head is normocephalic and atraumatic. Eyes: PERRLA. Extraocular muscles intact. Conjunctivae clear. Nose patent. Mucous membrane moist. NECK: Supple. No carotid bruit, JVD or thyromegaly. CHEST: Bilaterally symmetrical. HEART: S1 and S2 positive. LUNGS: Fair airflow with few rhonchi. HEART: S1 and S2, positive. ABDOMEN: Soft, nontender. No organomegaly. EXTREMITIES: No edema. No cyanosis. NEUROLOGIC: The patient is awake and alert. Moving all 4 extremities. No focal deficit. MEDICATIONS Benadryl, Colace, DuoNeb, lactulose, Nicoderm, cefepime, Protonix, cholestyramine, Robitussin, Singulair, B12, Zofran. LABORATORY DATA: We do not have recent laboratory data, but I reviewed old labs. ASSESSMENT AND PLAN: The patient is a 71-year-old male with multiple medical problems, chronic obstructive lung disease, pleural effusion, esophageal varices status post GI bleeding, gastroesophageal reflux disease. He was not able to do his ADL, legally blind and cirrhosis of the liver, status post paracentesis. Keep the head elevated at 45 degrees. GI and DVT prophylaxis. Repeat labs. We will follow up. Evie Ponce MD
[2017-04-25] MEDS: Mometasone 0.1% Cream(15 gm) TOP SCH ×2 (09:00→17:06)
[2017-04-25] MEDS: Cholestyramine 4 gm/Pkt UD PO SCH (09:00)
[2017-04-25 16:28] VITALS: RESP 20; TEMP 98.4; O2SAT 92
--- NOTE | 2017-04-26 01:26 | PN ---
REFERRING PHYSICIAN: Dr. Ponce. SUBJECTIVE: He is sitting at the side of the bed. Has some cough, no sputum production. No nausea, no vomiting, no diarrhea. No leg pain, no swelling. PHYSICAL EXAMINATION GENERAL: In no acute distress. VITAL SIGNS: Temperature is 98, heart rate is 88, respiratory rate is 20, blood pressure 119/70, pulse ox 100% on nasal cannula. HEENT: Moist mucous membranes. Small oral cavity. NECK: Supple. No JVD. HEART: S1, S2. LUNGS: Have a fair air flow with few rhonchi. ABDOMEN: Soft, nontender, nondistended. EXTREMITIES: No edema. NEUROLOGIC: Awake, alert. Follows simple command. LABORATORY DATA: Reviewed. No new lab is available. MEDICATIONS: He is on Benadryl 25 mg twice a day p.r.n., DuoNeb q. 6 hours, lactulose 10 mg at bedtime, Maxipime 1 g IV daily, Nicoderm patch daily, Protonix 40 mg daily, cholestyramine 4 g daily, Robitussin 100 mg q. 4 hours, Singulair 10 mg daily, thiamine 100 mg daily, Zofran p.r.n. basis. IMPRESSION AND PLAN: Chronic obstructive lung disease, pleural effusion, peritonitis, esophageal varices, GI bleed, ADL dysfunction, legally blind. The patient is scheduled to go home tomorrow. We will add Breo 200/50 one puff twice a day, Proventil HFA. We will send home with nebulizer treatment. The patient advised to stop smoking. Fall precautions. Thank you and we will follow with you. Theodore Atkins MD
[2017-04-26] MEDS: Albuterol-Ipratrop 3 mg / 0.5 (3 ml) UD IH SCH ×2 (02:00→07:25)
[2017-04-26] MEDS: Cefepime 1gm in NS 100ml 1 GM/100 ML BAG IVPB SCH (05:33)
[2017-04-26] MEDS: Pantoprazole 40 mg EC Tab PO SCH (05:34)
[2017-04-26] MEDS: Cholestyramine 4 gm/Pkt UD PO SCH (10:50)
[2017-04-26] MEDS: Mometasone 0.1% Cream(15 gm) TOP SCH (10:50)
[2017-04-26] MEDS: guaiFENesin 100 mg/5 ml Syrup UD PO PRN (10:50)
--- NOTE | 2017-04-26 11:57 | CP.PCM.PN ---
Subjective - Date & Time of Evaluation Date of Evaluation: 04/26/17 Time of Evaluation: 10:00 - Subjective Subjective: S&E at bedside, chart reviewed, pateint no new complaints feeling good and wants to go home, tolerating oral intake, having BM, no reports of overt GI bleeding. Objective - Vital Signs/Intake and Output Vital Signs (last 24 hours): Temp Pulse Resp BP Pulse Ox 98.4 F 88 20 94/61 L 92 L 04/25/17 16:27 04/25/17 16:27 04/25/17 16:27 04/25/17 16:27 04/25/17 16:27 Intake and Output: 04/26/17 04/26/17 06:59 18:59 Intake Total 420 Balance 420 - Medications Medications: Current Medications Cholestyramine Resin (Questran) 4 gm PO DAILY [facility] Last Admin: 04/25/17 09:00 Dose: 4 gm Diphenhydramine HCl (Benadryl) 25 mg PO BID PRN; Protocol PRN Reason: Itching / Pruritus Last Admin: 04/25/17 20:51 Dose: 25 mg Guaifenesin (Robitussin) 100 mg PO Q4H PRN; Protocol PRN Reason: Cough Last Admin: 04/25/17 20:49 Dose: 100 mg Lactulose (Enulose) 10 gm PO HS [facility] Last Admin: 04/25/17 21:26 Dose: 10 gm Mometasone Furoate (Elocon Cream) 0 gm TOP BID JUANITA PRN Reason: Protocol Last Admin: 04/25/17 17:06 Dose: 1 appl Montelukast Sodium (Singulair) 10 mg PO DAILY JUANITA PRN Reason: Protocol Last Admin: 04/25/17 09:00 Dose: 10 mg Nadolol (Corgard) 20 mg PO DAILY JUANITA PRN Reason: Protocol Last Admin: 04/25/17 09:01 Dose: Not Given Nicotine (Nicoderm Cq) 1 patch TD DAILY JUANITA PRN Reason: Protocol Last Admin: 04/25/17 09:00 Dose: 1 patch Pantoprazole Sodium (Protonix Ec Tab) 40 mg PO 0600 JUANITA Last Admin: 04/26/17 05:34 Dose: 40 mg Thiamine HCl (Vitamin B1 Tab) 100 mg PO DAILY JUANITA PRN Reason: Protocol Last Admin: 04/25/17 09:00 Dose: 100 mg - Labs Labs: 04/19/17 07:40 04/19/17 07:40 - Constitutional Appears: No Acute Distress - Head Exam Head Exam: NORMOCEPHALIC - Eye Exam Eye Exam: Normal appearance. absent: Scleral icterus - ENT Exam ENT Exam: Mucous Membranes Moist - Neck Exam Neck Exam: Normal Inspection - Respiratory Exam Respiratory Exam: NORMAL BREATHING PATTERN. absent: Respiratory Distress - Cardiovascular Exam Cardiovascular Exam: +S1, +S2 - GI/Abdominal Exam GI & Abdominal Exam: Soft, Normal Bowel Sounds. absent: Guarding, Tenderness, Organomegaly, Rebound - Extremities Exam Extremities Exam: Normal Capillary Refill. absent: Calf Tenderness, Pedal Edema Assessment and Plan - Assessment and Plan (Free Text) Assessment: Assessment: Cirrhosis of the liver Abdominal ascites, status post paracentesis EtOH S/PUpper GI bleed Recent EGD, esophageal varices status post band ligation Lung infiltrate seen on chest CT Improving leukocytosis Plan: monitor H&H Continue Protonix 40 daily continue Nadalol 20 mg daily soft low residual diet On Questran On lactulose in the evening, hold for diarrhea Patient is doing well continue current treatment. Seen and discussed with Dr. Oropeza.
[2017-04-26 12:00] VITALS: BP 113/64; PULSE 96
--- NOTE | 2017-04-26 14:19 | PN ---
DATE: 04/25/2017 SUBJECTIVE: The patient was seen and examined on the bedside on 04/25/2017, in the presence of director [facility]. Looks comfortable, sitting on the bed. Has some cough and some sputum production, but overall improving. Getting physical therapy and getting ready for discharge. No nausea, vomiting, or diarrhea. No hematuria or hematochezia. No swelling of the legs. No chest pain. No palpitation. No headache or dizziness. PHYSICAL EXAMINATION VITAL SIGNS: Temperature 98, heart rate 88, respiratory rate 20, blood pressure 120/70, and pulse oximetry 100% nasal cannula. HEENT: Head is normocephalic and atraumatic. Eyes: PERRLA. Extraocular muscles are intact. Conjunctivae clear. Nose is patent. Mucous membranes are moist. NECK: Supple. No carotid bruit, JVD or thyromegaly. CHEST: Bilaterally symmetrical. HEART: S1 and S2 positive. LUNGS: Clear to auscultation. ABDOMEN: Soft. Bowel sounds present. No organomegaly. EXTREMITIES: No edema. No cyanosis. NEUROLOGIC: The patient is awake and alert. Moving all 4 extremities. No focal deficit. MEDICATIONS: Benadryl, DuoNeb, Maxipime, Nicoderm patch, Protonix, cholestyramine, Robitussin, Singulair, thiamine, and Zofran. LABORATORY DATA: We do not have labs today, but I reviewed all labs. ASSESSMENT AND PLAN: Mr. Melany James is a 71-year-old male with multiple medical problems, who has chronic obstructive lung disease; pleural effusion; history of peritonitis; taking antibiotics, Maxipime IV; esophageal ulcers; varices; history of heavy drinking and smoking and now getting nicotine patch for smoking, and history of cirrhosis of the liver; gastrointestinal bleed; erectile dysfunction and legally blind. Dr. Atkins suggested Breo one puff twice a day as outpatient. Gastrointestinal and deep venous thrombosis prophylaxis. Repeat laboratories. We will follow up. Evie Ponce MD
--- NOTE | 2017-04-28 11:32 | DS ---
CHIEF COMPLAINT: Fatigue, tired, getting IV antibiotics. HISTORY OF PRESENT ILLNESS: Mr. Esteban Carrion is a 71-year-old male with history of COPD, GI bleeding, cirrhosis of the liver, legally blind, esophageal gastric varices, ascites, was recently tapped, paracentesis was done, left against medical advice, then came other day again for GI bleeding, admitted on the medical floor, seen by project admin. Paracentesis done again. Gave treatment, got better, transferred to [facility] for further treatment and completion of antibiotics. The patient has physical therapy, now he is able to go to the bathroom and able to walk, able to do his ADL. Discharged home on 04/26/2017. I am doing discharge summary for 04/26/2017. Arrangements for homemaker, visiting nurse done. Prescription of the medication given. Advised to follow up in my office and GI office. PAST MEDICAL HISTORY: As above, lung disease, active smoker, active drinker, GI bleeding, esophageal varices, cirrhosis of the liver, ascites, status post paracentesis, legally blind. FAMILY HISTORY: Father and mother noncontributory. HABITS: Active smoker, active drinker. Urged to quit. HOME MEDICATIONS: Reviewed by me. ALLERGIES: THE PATIENT IS NOT ALLERGIC TO ANY MEDICATIONS. REVIEW OF SYSTEMS: The patient was seen and examined on the bedside on 04/26/2017, excited to go home. No nausea, vomiting or diarrhea. No hematuria or hematochezia. No swelling of the legs. No chest pain. No palpitation. No headache. No dizziness. No fever. No chills. No dyspnea. No new complaints. Feeling good. Happy to go home, tolerating oral intake, having bowel movements. No reports of overt GI bleeding. Did physical therapy. PHYSICAL EXAMINATION: VITAL SIGNS: Temperature 98.4, pulse 88, respiratory rate 20, and blood pressure 94/51, pulse oximetry 92%. HEENT: Head, normocephalic and atraumatic. Eyes, PERRLA. Extraocular muscles intact. Conjunctivae clear. Nose patent. Mucous membranes moist. NECK: Supple. No carotid bruits. No JVD or thyromegaly. CHEST: Bilaterally symmetrical. HEART: S1 and S2 positive. LUNGS: Clear to auscultation. ABDOMEN: Soft. Bowel sounds present. No organomegaly. EXTREMITIES: No edema. No cyanosis. NEUROLOGIC: The patient is awake and alert and moving all 4 extremities. No focal deficits. MEDICATIONS: Questran, Benadryl, Robitussin, Enulose, Ecotrin, Elocon, Singulair, nadolol, Nicoderm patch, Protonix, vitamin B1. LABORATORY DATA: We do not have recent labs on the day of discharge, but reviewed old labs. ASSESSMENT AND PLAN: Mr. Esteban Carrion is a 71-year-old male with leukocytosis, anemia, hypocalcemia, history of gastrointestinal bleeding, multiple admissions, noncompliant, actively smoking and drinking, urged to quit smoking and drinking, education done, cirrhosis of the liver, abdominal ascites, status post paracentesis, has upper gastrointestinal bleeding, recent EGD, esophageal varices, status post band ligation, lung infiltrates on chest CT, got antibiotics treatment, improved leukocytosis. Discharged home on Protonix and nadolol, on Questran. The patient was having skin itchiness, not getting better with Benadryl, Singulair, Zyrtec. After started Questran, he is feeling better. On lactulose. Discharged home. Follow up with primary care physician and GI. We will follow. Evie Ponce MD
== END 2017-04-26 16:00 | disposition home or self-care (01) | DRG 432 ==
LOC: TRCU 13:08
PROVIDERS: ADMIT Internal Medicine; ATTEND Internal Medicine
PROC: F07Z9FZ Gait Training/Functional Ambulation Treatment using Assistive, Adaptive, Supportive or Protective Equipment (ICD-10-PCS; principal; 2017-04-21)
PROC: F07L6ZZ Therapeutic Exercise Treatment of Musculoskeletal System - Lower Back / Lower Extremity (ICD-10-PCS; 2017-04-21)
PROC: F08Z2ZZ Grooming/Personal Hygiene Treatment (ICD-10-PCS; 2017-04-22)
PROC: F07Z8ZZ Transfer Training Treatment (ICD-10-PCS; 2017-04-23)
DX: K70.31 Alcoholic cirrhosis of liver with ascites (principal); I85.11 Secondary esophageal varices with bleeding; K65.9 Peritonitis, unspecified; J90 Pleural effusion, not elsewhere classified; J44.9 Chronic obstructive pulmonary disease, unspecified; K22.10 Ulcer of esophagus without bleeding; D64.9 Anemia, unspecified; E83.51 Hypocalcemia; I86.4 Gastric varices; F17.200 Nicotine dependence, unspecified, uncomplicated; K21.9 Gastro-esophageal reflux disease without esophagitis; N52.9 Male erectile dysfunction, unspecified; H54.8 Legal blindness, as defined in USA; Z91.19 Patient's noncompliance with other medical treatment and regimen; Z87.01 Personal history of pneumonia (recurrent)

== ENCOUNTER 2017-09-02 15:06 | Emergency (ER) | payer MEDICARE, MEDICAID ==
[2017-09-02 15:06] VITALS: BMI 23.1
[2017-09-02 15:37] VITALS: RESP 18; TEMP 98.2
--- NOTE | 2017-09-02 16:29 | RAD ---
HISTORY: pes eval COMPARISON: 04/13/2017 FINDINGS: LUNGS: No active pulmonary disease. PLEURA: No significant pleural effusion identified, no pneumothorax apparent. CARDIOVASCULAR: Normal. OSSEOUS STRUCTURES: No significant abnormalities. VISUALIZED UPPER ABDOMEN: Normal. OTHER FINDINGS: None. IMPRESSION: No active disease.
[2017-09-02 17:20] LABS: BASO # 0.04 K/mm3 (0.0-2.0); BASO % 0.8 % (0.0-3.0); EOS # 0.3 (0.0-0.7); EOS % 6.1 % (1.5-5.0); GRAN # 2.36 (1.4-6.5); HEMOGLOBIN 9.1 g/dL (14.0-18.0); LYMPH # 1.7 (1.2-3.4); LYMPH % 33.8 % (22.0-35.0); MEAN CELL VOLUME 68.5 fl (80.0-105.0); MEAN CORPUSCULAR HEMOGLOBIN 20.4 pg (25.0-35.0); MEAN CORPUSCULAR HGB CONC 29.7 g/dl (31.0-37.0); MONO # 0.7 (0.1-0.6); MONO % 13.3 % (1.0-6.0); PLATELET COUNT 138 10^3/uL (120.0-450.0); RBC 4.47 10^6/uL (3.5-6.1); RED CELL DISTRIBUTION WIDTH 21.4 % (11.5-14.5); WHITE BLOOD COUNT 5.1 10^3/ul (4.5-11.0)
[2017-09-02 17:36] LABS: ACETAMINOPHEN < 10.0 ug/ml (10.0-20.0); SALICYLATE < 1 mg/dL (2.0-20.0)
[2017-09-02 17:40] LABS: ALB/GLOB RATIO 0.9 (1.1-1.8); ALBUMIN 3.3 g/dL (3.0-4.8); ALT/SGPT 31 U/L (7-56); AST/SGOT 50 U/L (17-59); BLOOD UREA NITROGEN 10 mg/dL (7-21); GFR AFRICAN-AMERICAN > 60; GFR NON-AFRICAN AMERICAN > 60
--- NOTE | 2017-09-02 18:04 | CARD ---
APPROVED REPORT EKG Measurement Heart [id number] <Conclusion> Normal sinus rhythm Nonspecific ST and T wave abnormality Abnormal ECG
[2017-09-02 18:35] LABS: URINE BILIRUBIN NEGATIVE (NEGATIVE); URINE BLOOD NEGATIVE (NEGATIVE); URINE GLUCOSE (UA) NEGATIVE (NEGATIVE); URINE LEUKOCYTE ESTERASE NEGATIVE Leu/uL (NEGATIVE); URINE NITRATE NEGATIVE (NEGATIVE); URINE PROTEIN NEGATIVE mg/dL (<30 mg/dL); URINE UROBILINOGEN 0.2 E.U./dL (<1 E.U./dL)
--- NOTE | 2017-09-02 18:36 | ED PDOC ---
Arrival/HPI - General Historian: Patient - History of Present Illness Time/Duration: Prior to Arrival <Susan Barillas - Last Filed: 09/02/17 19:49> <Noel Hernandez - Last Filed: 09/02/17 21:09> - General Chief Complaint: Psychiatric Evaluation Time Seen by Provider: 09/02/17 15:40 - History of Present Illness Narrative History of Present Illness (Text): 09/02/17 18:18 71yr old male presents today brought in by ambulance for suicidal ideation. Patient states he got into a verbal altercation with his landlord and another person. Patient states that he is not depressed and does not want to hurt himself. Patient denies chest pain or shortness of breath. Denies fevers or chills. Denies headaches dizziness or weakness. denies fever/chills. pt states he was just angry and saying things he didnt mean. (Susan Barillas) Past Medical History - Provider Review Nursing Documentation Reviewed: Yes - Travel History Have you recently traveled outside [place] w/in the past 3 mons?: No - Infectious Disease Hx of Infectious Diseases: None - Tetanus Immunization Tetanus Immunization: Unknown - Past Medical History Past Medical History: No Previous - Cardiac Hx Cardiac Disorders: Yes Hx Hypertension: Yes - Pulmonary Hx Respiratory Disorders: Yes Hx Asthma: Yes Hx Chronic Obstructive Pulmonary Disease (COPD): Yes - Neurological Hx Neurological Disorder: Yes HX Cerebrovascular Accident: Yes (left sided weakness; cane) Hx Dementia: Yes - HEENT Hx HEENT Disorder: Yes (left ear injury) Hx Blind: Yes Hx Cataracts: Yes (both eyes) Hx Deafness: Yes Hx Glaucoma: Yes (left eye) - Renal Hx Renal Disorder: No - Endocrine/Metabolic Hx Diabetes Mellitus Type 2: No (denies) - Hematological/Oncological Hx Blood Disorders: Yes Hx Anemia: Yes Hx Cirrhosis: Yes - Integumentary Hx Dermatological Disorder: Yes Other/Comment: red raised rash to head face arms chest abd legs, toenails both feet long thick hard - Musculoskeletal/Rheumatological Hx Arthritis: Yes - Gastrointestinal Hx Gastrointestinal Disorders: (cirrhosis, weight loss) - Genitourinary/Gynecological Hx Reproductive Disorders: No - Psychiatric Hx Psychophysiologic Disorder: Yes (etoh, smoker) Hx Depression: Yes Hx Psychosis: Yes Hx Substance Use: Yes Other/Comment: quit drinking 5 or 7 yrs ago as per pt - Past Surgical History Past Surgical History: No Previous - Surgical History Hx Orthopedic Surgery: Yes (l hip fx sx 10/20/16) Other/Comment: us guided paracenthesis 06/23/14 - Anesthesia Hx Anesthesia: Yes Hx Anesthesia Reactions: No Hx Malignant Hyperthermia: No - Suicidal Assessment Suicide Risk Precautions: Suicide Precautions <Susan Barillas - Last Filed: 09/02/17 19:49> Family/Social History - Physician Review Nursing Documentation Reviewed: Yes Family/Social History: Unknown Family HX Smoking Status: Light Smoker < 10 Cigarettes Daily Hx Alcohol Use: Yes (quit 5/7 yrs ago as per pt) Hx Substance Use: Yes Hx Substance Use Treatment: No <Susan Barillas - Last Filed: 09/02/17 19:49> Allergies/Home Meds <Susan Barillas - Last Filed: 09/02/17 19:49> <Noel Hernandez - Last Filed: 09/02/17 21:09> Allergies/Adverse Reactions: Allergies No Known Allergies Allergy (Verified 04/18/17 13:39) Home Medications: Home Meds Medication Instructions Recorded Confirmed Unobtainable 04/06/17 09/02/17 Review of Systems - Review of Systems Constitutional: absent: Fatigue, Fevers Respiratory: absent: SOB, Cough Cardiovascular: absent: Chest Pain, Palpitations Gastrointestinal: absent: Abdominal Pain, Nausea, Vomiting Genitourinary Male: absent: Dysuria, Frequency, Hematuria Musculoskeletal: absent: Arthralgias, Back Pain, Neck Pain Skin: absent: Rash, Pruritis Neurological: absent: Headache, Dizziness Psychiatric: absent: Anxiety, Depression, Suicidal Ideation <Susan Barillas - Last Filed: 09/02/17 19:49> Physical Exam Vital Signs Reviewed: Yes Temperature: Afebrile Blood Pressure: Hypertensive Pulse: Regular Respiratory Rate: Normal Appearance: Positive for: Well-Appearing, Non-Toxic, Comfortable Pain Distress: None Mental Status: Positive for: Alert and Oriented X 3 - Systems Exam Head: Present: Atraumatic Mouth: Present: Moist Mucous Membranes Neck: Present: Normal Range of Motion Respiratory/Chest: Present: Clear to Auscultation Cardiovascular: Present: Regular Rate and Rhythm Abdomen: No: Tenderness, Distention, Rebound, Guarding Upper Extremity: Present: Normal ROM Lower Extremity: Present: Normal ROM Neurological: Present: GCS=15, Speech Normal Skin: Present: Warm, Dry, Normal Color. No: Rashes Psychiatric: Present: Alert, Oriented x 3 <Susan Barillas - Last Filed: 09/02/17 19:49> Vital Signs Temp Pulse Resp BP Pulse Ox 09/02/17 19:36 75 18 149/80 97 09/02/17 17:09 79 18 158/71 H 99 09/02/17 15:36 98.2 F 86 18 161/76 H 99 Medical Decision Making <Susan Barillas - Last Filed: 09/02/17 19:49> <Noel Hernandez - Last Filed: 09/02/17 21:09> ED Course and Treatment: 09/02/17 19:01 Patient is nontoxic well-appearing in no distress vital signs are stable. CBC hgb; 9.1 CMP WNL Tylenol WNL Salicylate WNL Alcohol level WNL Urine drug screen wnl UA; wnl cxr: wnl ekg normal sinus rhythm at [address] elevations normal intervals. QTC 418 pt is medically cleared for PES evaluation Patient was seen and evaluated by PES screener: shyanne advised patient of low hemoglobin; pt states it is always low; denies GI bleeding; stressed importance of close f/u with PMD. Patient verbalizes understanding of discharge instructions and need for immediate followup. all aspects of this case were discussed the attending of record. Impression: acute stress disorder Follow up with the primary care physician Followup with behavioral health center return if symptoms worsen,persist or if new symptoms develop. (Susan Barillas) - Lab Interpretations Lab Results: 09/02/17 16:15 09/02/17 16:15 Lab Results 09/02/17 18:15: Urine Opiates Screen Negative, Urine Methadone Screen Negative, Ur Barbiturates Screen Negative, Ur Phencyclidine Scrn Negative, Ur Amphetamines Screen Negative, U Benzodiazepines Scrn Negative, U Oth Cocaine Metabols Negative, U Cannabinoids Screen Negative 09/02/17 18:15: Urine Color Yellow, Urine Appearance Clear, Urine pH 6.0, Ur Specific [place] >= 1.030, Urine Protein Negative, Urine Glucose (UA) Negative, Urine Ketones Negative, Urine Blood Negative, Urine Nitrate Negative, Urine Bilirubin Negative, Urine Urobilinogen 0.2, Ur Leukocyte Esterase Negative 09/02/17 16:15: Alcohol, Quantitative < 10 09/02/17 16:15: Salicylates < 1 L, Acetaminophen < 10.0 L 09/02/17 16:15: Sodium 140, Potassium 4.1, Chloride 107, Carbon Dioxide 23, Anion Gap 14, BUN 10, Creatinine 0.5 L, Est GFR ( Amer) > 60, Est GFR ( Non-Af Amer) > 60, Random Glucose 86, Calcium 9.0, Total Bilirubin 0.5, AST 50, ALT 31, Alkaline Phosphatase 197 H D, Total Protein 7.1, Albumin 3.3, Globulin 3.8, Albumin/Globulin Ratio 0.9 L 09/02/17 16:15: WBC 5.1 D, RBC 4.47, Hgb 9.1 L, Hct 30.6 L, MCV 68.5 L D, MCH 20.4 L, MCHC 29.7 L, RDW 21.4 H, Plt Count 138, Gran % 46.0 L, Lymph % (Auto) 33.8, [place] % (Auto) 13.3 H, Eos % (Auto) 6.1 H, Baso % (Auto) 0.8, Gran # 2.36, Lymph # 1.7, [place] # 0.7 H, Eos # 0.3, Baso # 0.04 - RAD Interpretation Radiology Orders: 09/02/17 15:41 CHEST PORTABLE [RAD] Stat - PA / MECHANIC SENIOR / Resident Statement WHITNEY has reviewed & agrees with the documentation as recorded. WHITNEY has examined the patient and agrees with the treatment plan. <Noel Hernandez - Last Filed: 09/02/17 21:09> Disposition/Present on Arrival - Present on Arrival Any Indicators Present on Arrival: No History of DVT/PE: No History of Uncontrolled Diabetes: No Urinary Catheter: No History of Decub. Ulcer: No History Surgical Site Infection Following: None - Disposition Have Diagnosis and Disposition been Completed?: Yes Disposition Time: 19:21 Patient Plan: Discharge <Susan Barillas - Last Filed: 09/02/17 19:49> <Noel Hernandez - Last Filed: 09/02/17 21:09> - Disposition Diagnosis: Acute stress disorder Disposition: HOME/ ROUTINE Condition: GOOD Additional Instructions: Follow up with the primary care physician Followup with behavioral health center return if symptoms worsen,persist or if new symptoms develop. Referrals: Cody Varam MD [Primary Care Provider] - Follow [facility] with [facility] [Outside] - Follow up with primary Forms: [employer] ([place])
[2017-09-02 18:39] LABS: URINE APPEARANCE CLEAR (CLEAR); URINE COLOR YELLOW (YELLOW)
[2017-09-02 19:39] LABS: BARBITURATES, UR NEGATIVE (NEGATIVE); BENZODIAZEPINES, UR NEGATIVE (NEGATIVE); OPIATES, UR NEGATIVE (NEGATIVE); PHENCYCLIDINE, UR NEGATIVE (NEGATIVE)
[2017-09-02 21:52] VITALS: BP 145/78; PULSE 70; O2SAT 98
== END 2017-09-02 22:01 | disposition home or self-care (01) ==
LOC: ED 15:06
DX: F43.0 Acute stress reaction (principal); I10 Essential (primary) hypertension; F17.210 Nicotine dependence, cigarettes, uncomplicated
CPT/HCPCS: 71045; 80053; 81003; 85025; 90791; 93005; 99285; G0480

== ENCOUNTER 2018-01-15 12:49 | Inpatient (IN) | payer MEDICARE, MEDICAID ==
[2018-01-15 12:59] VITALS: BMI 17.9
[2018-01-15] MEDS ORDERED: Albuterol-Ipratrop 3 mg / 0.5 (3 ml) UD IH STA (13:30)
[2018-01-15] MEDS ORDERED: Iohexol 240 (50 ml) ONE (13:35)
--- NOTE | 2018-01-15 13:39 | ED PDOC ---
Arrival/HPI - General Chief Complaint: GI Problem Time Seen by Provider: 01/15/18 13:10 Historian: Patient - History of Present Illness Narrative History of Present Illness (Text): 01/15/18 13:32 Patient is a 72 year old male whose past medical history includes esophageal varices, upper GI bleeding, and arthritis, who presents to the Emergency department complaining of frequent hemoptysis and droplets of blood from his nose. Patient is primarily Persian speaking and agreed to have scribe José Antonio translate, patient also understands Palauan. Of note patient is hard of hearing and blind. Patient reports that he has been coughing for the past 2 months. He mentions that he chronically coughs blood and has blood running down his nose, but notes that it started worsening 2 days ago. He experiences 3-4 episodes of coughing blood/finding blood in his mouth per day. He believes the bleeding is coming from his throat, but has a history of GI bleeding and surgery. Of note he has noticed that he tends to also bleed after eating but denies any nausea or vomiting. Patient also reports having inguinal pain that is noticed with coughing. He mentions that yesterday he felt dizzy and fell while smoking. Patient also complains of dry skin and feeling generalized itchiness. Patient denies any fever, body aches, or any other complaints at this time. PMD:Dr.Wagih Varma Time/Duration: < week (Symptoms worsened 2 days ago) Symptom Onset: Other (chronic but worsened 2 days ago) Symptom Course: Worsening Context: Home Past Medical History - Provider Review Nursing Documentation Reviewed: Yes - Infectious Disease Hx of Infectious Diseases: None - Tetanus Immunization Tetanus Immunization: Unknown - Past Medical History Past Medical History: No Previous - Cardiac Hx Cardiac Disorders: Yes Hx Hypertension: Yes - Pulmonary Hx Respiratory Disorders: Yes Hx Asthma: Yes Hx Chronic Obstructive Pulmonary Disease (COPD): Yes - Neurological HX Cerebrovascular Accident: Yes - HEENT Hx HEENT Disorder: Yes (left ear injury) Hx Blind: Yes Hx Cataracts: Yes (both eyes) Hx Deafness: Yes Hx Glaucoma: Yes (left eye) - Renal Hx Renal Disorder: No - Endocrine/Metabolic Hx Diabetes Mellitus Type 2: No (denies) - Hematological/Oncological Hx Blood Disorders: No - Integumentary Hx Dermatological Disorder: Yes Other/Comment: red raised rash to head face arms chest abd legs, toenails both feet long thick hard - Musculoskeletal/Rheumatological Hx Arthritis: Yes - Gastrointestinal Hx Gastrointestinal Disorders: (cirrhosis, weight loss) - Genitourinary/Gynecological Hx Reproductive Disorders: No - Psychiatric Hx Psychophysiologic Disorder: Yes (etoh, smoker) Hx Depression: Yes Hx Psychosis: Yes Hx Substance Use: No Other/Comment: quit drinking 5 or 7 yrs ago as per pt - Past Surgical History Past Surgical History: No Previous - Surgical History Hx Orthopedic Surgery: Yes (l hip fx sx 10/20/16) Other/Comment: us guided paracenthesis 06/23/14 - Anesthesia Hx Anesthesia: Yes Hx Anesthesia Reactions: No Hx Malignant Hyperthermia: No - Suicidal Assessment Feels Threatened In Home Enviroment: No Family/Social History - Physician Review Nursing Documentation Reviewed: Yes Family/Social History: No Known Family HX Smoking Status: Heavy Smoker > 10 Cigarettes Daily Hx Alcohol Use: Yes (quit 5/7 yrs ago as per pt) Hx Substance Use: No Hx Substance Use Treatment: No Allergies/Home Meds Allergies/Adverse Reactions: Allergies No Known Allergies Allergy (Verified 04/18/17 13:39) Home Medications: Home Meds Medication Instructions Recorded Confirmed Dorzolamide 2%/Timolol 0.5% 1 drop BOTHEYES BID 01/15/18 01/15/18 [Cosopt 2%-0.5% Opht] Latanoprost [Xalatan] 1 drop BOTHEYES DAILY 01/15/18 01/15/18 Sertraline [Zoloft] 1 tab PO DAILY 01/15/18 01/15/18 Review of Systems - Physician Review All systems were reviewed & negative as marked: Yes - Review of Systems Constitutional: absent: Fevers ENT: absent: Sinus Congestion Respiratory: Cough (hemoptysis). absent: SOB Cardiovascular: absent: Chest Pain Gastrointestinal: absent: Nausea, Vomiting Neurological: Dizziness Physical Exam Vital Signs Reviewed: Yes Vital Signs Temp Pulse Resp BP Pulse Ox 01/15/18 16:36 85 18 101/62 95 01/15/18 14:30 77 18 120/62 97 01/15/18 12:57 97.9 F 81 18 113/57 L 99 Temperature: Afebrile Blood Pressure: Normal Pulse: Regular Respiratory Rate: Normal Appearance: Positive for: Well-Appearing Mental Status: Positive for: Alert and Oriented X 3 - Systems Exam Head: Present: Atraumatic, Normocephalic Pupils: Present: PERRL Extroacular Muscles: Present: EOMI Conjunctiva: Present: Normal Mouth: Present: Moist Mucous Membranes Neck: Present: Normal Range of Motion Respiratory/Chest: Present: Good Air Exchange, Wheezes (Left lung). No: Respiratory Distress, Accessory Muscle Use Cardiovascular: Present: Regular Rate and Rhythm, Normal S1, S2. No: Murmurs Abdomen: Present: Tenderness (Epigastric tenderness), Guarding (Epigastric). No : Distention, Peritoneal Signs Rectal: No: Occult Blood Genitourinary Male: Present: Hernias (right inguinal hernia nonreducible and tender to palpation) Back: Present: Normal Inspection Upper Extremity: Present: Normal Inspection. No: Cyanosis, Edema Lower Extremity: Present: Normal Inspection. No: Edema Neurological: Present: GCS=15, CN II-XII Intact, Speech Normal Skin: Present: Warm, Dry, Normal Color. No: Rashes Psychiatric: Present: Alert, Oriented x 3, Normal Insight, Normal Concentration Medical Decision Making ED Course and Treatment: 01/15/18 14:03 Impression: Patient is a 72 year old male who is complaining of chronic hemoptysis that has worsened 2 days ago. Differential Diagnosis included but are not limited to: GI bleeding vs. Incarcerated Hernia, vs Pneumonia vs Bronchitis/COPD Plan: --Labs --venous blood gas --EKG --Cardiac enzyme --Duoneb --Protonix -- abdominal and pelvic CT with contrast --Chest X-ray --Urinalysis -- Reassess and disposition Prior Visits: Notes and results from previous visits were reviewed. Patient was last seen in the emergency department for similar symptoms on 04/13/17 for GI bleed and was hospitalized. Progress Notes: 01/15/18 14:12 EKG shows NSR at 78 BPM with normal axis and intervals. Interpreted by me. 01/15/18 14:39 Patient didn't want to drink contrast because he is feeling nauseous from it. Medication for nausea ordered. 01/15/18 15:05 Chest X-ray: IMPRESSION: No active disease. Specifically no infiltrate appreciated. 01/15/18 15:47 Patient noted to have pancreatitis. IVF continued. He drank PO contrast and pending CT. No pain at this time. Abd exam unchanged. 01/15/18 17:32 CT abdomen and pelvis with contrast: Creator : Juan Miguel Archer MD Contrast dose: 100 mL Omnipaque 300 IMPRESSION: Hepatic cirrhosis. Mild splenomegaly. Perigastric and distal esophageal varices. Mild splenomegaly. Mild ascites. Nonspecific colitis of the ascending and transverse colon. Fluid in right inguinal canal without evidence of bowel herniation. 01/15/18 17:56 Discussed case with , who was made aware of the patient and accepts patient under her service. Requesting for GI consult. - Lab Interpretations Lab Results: 01/15/18 13:35 01/15/18 13:35 Lab Results 01/15/18 17:05: Blood Type Pending, Antibody Screen Pending, BBK History Checked Patient has bt 01/15/18 13:35: Alcohol, Quantitative < 10 01/15/18 13:35: pO2 49, VBG pH 7.36, VBG pCO2 45.0, VBG HCO3 25.4, VBG Total CO2 26.8, VBG O2 Sat (Calc) 90.3 H, VBG Base Excess -0.4 L, VBG Potassium 4.1, Sodium 142.0, Chloride 114.0 H, Glucose 122 H, Lactate 2.1, FiO2 21.0, Venous Blood Potassium 4.1 01/15/18 13:35: Blood Type Cancelled, Antibody Screen Cancelled, BBK History Checked Cancelled 01/15/18 13:35: Sodium 145, Chloride 111 H, Potassium 3.8, Carbon Dioxide 23, Anion Gap 15, BUN 12, Creatinine 0.5 L, Est GFR ( Amer) > 60, Est GFR ( Non-Af Amer) > 60, Random Glucose 115 H, Calcium 8.3 L, Total Bilirubin 0.5, AST 42, ALT 28, Alkaline Phosphatase 191 H, Lactate Dehydrogenase 690, Total Creatine Kinase 61, Troponin I < 0.01, Total Protein 6.8, Albumin 3.1, Globulin 3.7, Albumin/Globulin Ratio 0.8 L, Amylase 65, Lipase 324 H 01/15/18 13:35: PT 13.5 H, INR 1.18 H, APTT 35.4 01/15/18 13:35: WBC 4.8, RBC 4.19, Hgb 8.3 L, Hct 27.7 L, MCV 66.1 L, MCH 19.8 L , MCHC 30.0 L, RDW 19.7 H, Plt Count 228, Gran % 51.2, Lymph % (Auto) 31.3, [place] % (Auto) 9.0 H, Eos % (Auto) 7.4 H, Baso % (Auto) 1.1, Gran # 2.44, Lymph # (Auto) 1.5, [place] # (Auto) 0.4, Eos # (Auto) 0.4, Baso # (Auto) 0.05 - RAD Interpretation Radiology Orders: 01/15/18 13:29 CHEST PORTABLE [RAD] Stat 01/15/18 13:31 ABD PELVIS PO & IV CONTRAST [CT] Stat - Medication Orders Current Medication Orders: Sodium Chloride (Sodium Chloride 0.9%) 1,000 mls @ 100 mls/hr IV .Q10H JUANITA Last Admin: 01/15/18 15:23 Dose: 100 mls/hr eMAR Start Stop Document 01/15/18 15:23 LM (Rec: 01/15/18 15:23 [facility] [id number]) Intravenous Solution Start Date 01/15/18 Start Time 15:23 Discontinued Medications Albuterol/Ipratropium (Duoneb 3 Mg/0.5 Mg (3 Ml) Ud) 3 ml IH STAT STA Stop: 01/15/18 13:31 Last Admin: 01/15/18 13:40 Dose: 3 ml Diphenhydramine HCl (Benadryl) 25 mg IVP STAT STA Stop: 01/15/18 15:22 Last Admin: 01/15/18 15:32 Dose: 25 mg IVP Administration Document 01/15/18 15:32 [facility] (Rec: 01/15/18 15:32 [id number] Charges for Administration # of IVP Administrations 1 Ondansetron HCl (Zofran Inj) 4 mg IVP STAT STA Stop: 01/15/18 14:45 Last Admin: 01/15/18 15:23 Dose: 4 mg IVP Administration Document 01/15/18 15:23 [facility] (Rec: 01/15/18 15:23 [facility] [id number]) Charges for Administration # of IVP Administrations 1 Pantoprazole Sodium (Protonix Inj) 80 mg IVP STAT STA Stop: 01/15/18 13:30 Last Admin: 01/15/18 13:40 Dose: 80 mg IVP Administration Document 01/15/18 13:40 [facility] (Rec: 01/15/18 13:40 [facility] [id number]) Charges for Administration # of IVP Administrations 1 - Scribe Statement The provider has reviewed the documentation as recorded by the Scribe José Antonio Tai Provider Scribe Attestation: All medical record entries made by the Scribe were at my direction and personally dictated by me. I have reviewed the chart and agree that the record accurately reflects my personal performance of the history, physical exam, medical decision making, and the department course for this patient. I have also personally directed, reviewed, and agree with the discharge instructions and disposition. Disposition/Present on Arrival - Present on Arrival Any Indicators Present on Arrival: No History of DVT/PE: No History of Uncontrolled Diabetes: No Urinary Catheter: No History of Decub. Ulcer: No History Surgical Site Infection Following: None - Disposition Have Diagnosis and Disposition been Completed?: Yes Diagnosis: Upper GI bleeding Disposition: HOSPITALIZED Disposition Time: 17:57 Patient Plan: Admission Condition: FAIR
--- NOTE | 2018-01-15 13:58 | RAD ---
HISTORY: cough r/o pna COMPARISON: 09/02/2017 FINDINGS: LUNGS: No active pulmonary disease. PLEURA: No significant pleural effusion identified, no pneumothorax apparent. CARDIOVASCULAR: Heart size within normal limits. Aortic knob calcification OSSEOUS STRUCTURES: No significant abnormalities. VISUALIZED UPPER ABDOMEN: Normal. OTHER FINDINGS: None. IMPRESSION: No active disease. Specifically no infiltrate appreciated
[2018-01-15 14:11] LABS: VENOUS BLOOD GAS BASE EXCESS -0.4 mmol/L (0.0-2.0); VENOUS BLOOD GAS PO2 49 mm/Hg (30-55); VENOUS BLOOD PH 7.36 (7.32-7.43)
[2018-01-15 14:29] LABS: BASO # 0.05 K/mm3 (0.0-2.0); BASO % 1.1 % (0.0-3.0); EOS # 0.4 (0.0-0.7); EOS % 7.4 % (1.5-5.0); GRAN # 2.44 (1.4-6.5); GRAN % 51.2 % (50.0-68.0); HEMOGLOBIN 8.3 g/dL (14.0-18.0); LYMPH # 1.5 (1.2-3.4); LYMPH % 31.3 % (22.0-35.0); MEAN CELL VOLUME 66.1 fl (80.0-105.0); MEAN CORPUSCULAR HEMOGLOBIN 19.8 pg (25.0-35.0); MONO # 0.4 (0.1-0.6); PLATELET COUNT 228 10^3/uL (120.0-450.0); RBC 4.19 10^6/uL (3.5-6.1); RED CELL DISTRIBUTION WIDTH 19.7 % (11.5-14.5); WHITE BLOOD COUNT 4.8 10^3/ul (4.5-11.0)
[2018-01-15 14:30] LABS: ALB/GLOB RATIO 0.8 (1.1-1.8); ALBUMIN 3.1 g/dL (3.0-4.8); ALT/SGPT 28 U/L (7-56); AMYLASE 65 U/L (35-125); AST/SGOT 42 U/L (17-59); BLOOD UREA NITROGEN 12 mg/dL (7-21); CALCIUM 8.3 mg/dL (8.4-10.5); GFR AFRICAN-AMERICAN > 60; GFR NON-AFRICAN AMERICAN > 60; LIPASE 324 U/L (23-300)
[2018-01-15 14:37] LABS: INR 1.18 (0.93-1.08); PARTIAL THROMBOPLASTIN TIME 35.4 Seconds (25.1-36.5); PROTHROMBIN TIME 13.5 SECONDS (9.4-12.5)
[2018-01-15 14:41] LABS: TROPONIN I < 0.01 ng/mL
[2018-01-15] MEDS ORDERED: Iohexol 350 MG/100 ML VIAL ONE (14:57)
[2018-01-15] MEDS ORDERED: Iohexol 300 100 ML IJ ONE (15:08)
[2018-01-15] MEDS ORDERED: DiphenhydrAMINE 50 mg/ml Inj IVP STA (15:21)
[2018-01-15] MEDS: Sodium Chloride 0.9% 1,000 ML IV SCH (15:23)
--- NOTE | 2018-01-15 16:36 | CARD ---
APPROVED REPORT EKG Measurement Heart [id number] <Conclusion> Normal sinus rhythm Nonspecific ST and T wave abnormality Abnormal ECG
--- NOTE | 2018-01-15 17:16 | CT ---
PROCEDURE: CT Abdomen and Pelvis with contrast HISTORY: abd pain h/o gi bleed r/o r inguin hernia obstruct COMPARISON: None. TECHNIQUE: Contrast dose: 100 mL Omnipaque 300 Radiation dose: Total exam DLP = 229.38 mGy-cm. This CT exam was performed using one or more of the following dose reduction techniques: Automated exposure control, adjustment of the mA and/or kV according to patient size, and/or use of iterative reconstruction technique. FINDINGS: LOWER THORAX: Unremarkable. LIVER: Nodular contour consistent with hepatic cirrhosis. Normal size. No mass. No biliary ductal dilatation. GALLBLADDER AND BILE DUCTS: Contracted gallbladder with calcified stones. No pericholecystic fluid. PANCREAS: Unremarkable. No gross lesion or ductal dilatation. SPLEEN: Mild splenomegaly. No mass. ADRENALS: Unremarkable. No mass. KIDNEYS AND URETERS: Unremarkable. No hydronephrosis. No solid mass. VASCULATURE: Mild perigastric varices and distal esophageal varices. No evidence of abdominal aortic aneurysm. BOWEL: Mild mural thickening of the ascending and transverse colon. Consistent with nonspecific colitis, either infectious or inflammatory. No bowel obstruction. Sigmoid diverticulosis. No evidence of diverticulitis. APPENDIX: Normal appendix. PERITONEUM: Mild ascites. No pneumoperitoneum. There is fluid in the right inguinal canal without evidence of bowel herniation. LYMPH NODES: Unremarkable. No enlarged lymph nodes. BLADDER: Unremarkable. REPRODUCTIVE: Normal prostate BONES: No acute fracture. OTHER FINDINGS: None. IMPRESSION: Hepatic cirrhosis. Mild splenomegaly. Perigastric and distal esophageal varices. Mild splenomegaly. Mild ascites. Nonspecific colitis of the ascending and transverse colon. Fluid in right inguinal canal without evidence of bowel herniation.
[2018-01-15 18:48] LABS: VENOUS BLOOD GAS BASE EXCESS -2.2 mmol/L (0.0-2.0); VENOUS BLOOD GAS PO2 95 mm/Hg (30-55); VENOUS BLOOD PH 7.36 (7.32-7.43)
[2018-01-15] MEDS ORDERED: Albuterol-Ipratrop 3 mg / 0.5 (3 ml) UD IH PRN (19:52)
[2018-01-15] MEDS ORDERED: Latanoprost 2.5 ml Opht Soln OU SCH (22:00)
[2018-01-15] MEDS: guaiFENesin 100 mg/5 ml Syrup UD PO PRN (22:28)
[2018-01-16] MEDS: Sodium Chloride 0.9% 1,000 ML IV SCH ×2 (02:49→06:00)
[2018-01-16] MEDS: guaiFENesin 100 mg/5 ml Syrup UD PO PRN (02:50)
[2018-01-16 07:34] VITALS: RESP 22; TEMP 98.5; O2SAT 94
--- NOTE | 2018-01-16 07:39 | CP.PCM.CON ---
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 Patient states that this has been happening for the past couple of months. He states that it has been worsening the past couple of days. Patient denies any recent alcohol use, but it still smoking tobacco. Patient complains of cough and some shortness of breath. He denies any nausea/vomiting/diarrhea, abdominal pain, chest pain, fever/chills, numbness/tingling, dysuria or hematuria. Patient had an EGD in 2016 which showed grade II esophageal varices with active bleeding that were incompletely eradicated and banded. He had colonoscopy in 10/2016 which showed few non-bleeding colonic angioectasia (cauterized), diverticulosis, internal hemorrhoids, multiple 6-12mm polyps throughout colon. Patient was supposed to be on beta-jagdeep for varices, but he is not taking his medications. 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 Family history: Non-contributory Review of Systems - Review of Systems All systems: reviewed and no additional remarkable complaints except Review of Systems: 12 point ROS reviewed as per HPI and are otherwise negative. Past Patient History - Infectious Disease Hx of Infectious Diseases: None - Tetanus Immunizations Tetanus Immunization: Unknown - Past Social History Smoking Status: Heavy Smoker > 10 Cigarettes Daily - CARDIAC Hx Cardiac Disorders: Yes Hx Hypertension: Yes - PULMONARY Hx Respiratory Disorders: Yes Hx Asthma: Yes Hx Chronic Obstructive Pulmonary Disease (COPD): Yes - NEUROLOGICAL Hx Neurological Disorder: Yes HX Cerebrovascular Accident: Yes - HEENT Hx HEENT Problems: Yes Hx Blind: Yes Hx Cataracts: Yes (both eyes) Hx Deafness: Yes Hx Glaucoma: Yes (left eye) - RENAL Hx Chronic Kidney Disease: No - ENDOCRINE/METABOLIC Hx Endocrine Disorders: No - HEMATOLOGICAL/ONCOLOGICAL Hx Blood Disorders: No Hx Cirrhosis: Yes - INTEGUMENTARY Hx Dermatological Problems: No - MUSCULOSKELETAL/RHEUMATOLOGICAL Hx Musculoskeletal Disorders: Yes Hx Arthritis: Yes Hx Falls: No - GASTROINTESTINAL Hx Gastrointestinal Disorders: Yes Other/Comment: GI Bleed; Esophageal varices - GENITOURINARY/GYNECOLOGICAL Hx Genitourinary Disorders: No - PSYCHIATRIC Hx Psychophysiologic Disorder: Yes Hx Depression: Yes Hx Psychosis: Yes Hx Substance Use: No - SURGICAL HISTORY Hx Surgeries: Yes Hx Orthopedic Surgery: Yes (l hip fx sx 10/20/16) Other/Comment: us guided paracenthesis 06/23/14 - ANESTHESIA Hx Anesthesia: Yes Hx Anesthesia Reactions: No Hx Malignant Hyperthermia: No Meds Allergies/Adverse Reactions: Allergies Allergy/AdvReac Type Severity Reaction Status Date / Time No Known Allergies Allergy Verified 04/18/17 13:39 - Medications Medications: Current Medications Albuterol/Ipratropium (Duoneb 3 Mg/0.5 Mg (3 Ml) Ud) 3 ml IH Q3H PRN PRN Reason: Shortness of Breath Last Admin: 01/15/18 20:35 Dose: 3 ml Dorzolamide/Timolol (Cosopt 2%-0.5% Opht) 1 drop OU BID JUANITA Famotidine (Pepcid) 40 mg PO HS JUANITA Last Admin: 01/15/18 21:42 Dose: 40 mg Guaifenesin (Robitussin) 100 mg PO BID PRN PRN Reason: Cough Last Admin: 01/16/18 02:50 Dose: 100 mg Sodium Chloride (Sodium Chloride 0.9%) 1,000 mls @ 100 mls/hr IV .Q10H JUANITA Last Admin: 01/16/18 06:00 Dose: 100 mls/hr Latanoprost (Xalatan Opht) 0.02 ml OU HS JUANITA Last Admin: 01/15/18 21:42 Dose: 0.02 ml Ondansetron HCl (Zofran Inj) 4 mg IVP Q4H PRN PRN Reason: Nausea/Vomiting Sertraline HCl (Zoloft) 25 mg PO DAILY JUANITA Physical Exam - Constitutional Appears: Chronically Ill - Head Exam Head Exam: ATRAUMATIC, NORMAL INSPECTION, NORMOCEPHALIC - ENT Exam ENT Exam: Mucous Membranes Moist - Respiratory Exam Respiratory Exam: Wheezes (diffuse ), NORMAL BREATHING PATTERN. absent: Rales, Rhonchi - Cardiovascular Exam Cardiovascular Exam: REGULAR RHYTHM, +S1, +S2. absent: Gallop, Rubs, Systolic Murmur - GI/Abdominal Exam GI & Abdominal Exam: Normal Bowel Sounds, Soft. absent: Mass, Rebound, Rigid, Tenderness - Extremities Exam Extremities exam: Negative for: calf tenderness, pedal edema - Neurological Exam Neurological exam: Alert, CN II-XII Intact - Skin Skin Exam: Dry, Warm Results - Vital Signs Recent Vital Signs: Last Vital Signs Temp 98.5 F 01/16/18 06:00 Pulse 81 01/16/18 06:00 Resp 22 01/16/18 06:00 BP 98/53 L 01/16/18 06:00 Pulse Ox 94 L 01/16/18 06:00 - Labs Result Diagrams: 01/15/18 13:35 01/15/18 13:35 Labs: Laboratory Results - last 24 hr 01/15/18 18:30 pO2 95 H VBG pH 7.36 VBG pCO2 41.0 VBG HCO3 23.2 VBG Total CO2 24.5 VBG O2 Sat (Calc) 99.8 H VBG Base Excess -2.2 L VBG Potassium 3.6 Sodium 140.0 Chloride 112.0 H Glucose 109 Lactate 1.2 FiO2 21.0 Venous Blood Potassium 3.6 Assessment & Plan - Assessment and Plan (Free Text) Assessment: This is a 72yo male with past medical history of COPD, tobacco abuse, 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 Anemia - can be secondary to GI bleed from hx of esophageal varices 2. COPD exacerbation 3. Cirrhosis secondary to hep b and alcohol 4. Tobacco abuse Plan: MELD score of 8. Will place patient on Octreotide drip. CT A/P was reviewed. Will order CT chest to rule out malignancy since he has hemoptysis and history of tobacco abuse. Will obtain abdominal U/S and duplex U/S to rule out portal vein thrombosis. Will check ammonia level. Patient is on clear liquid diet. Plan for EGD tomorrow. He will be NPO at midnight. Patient is taking pepcid. Pulm is on consult for COPD. Case seen, discussed and reviewed with Dr. Oropeza. Osmani Bell PGY2 - Date & Time Date: 01/16/18 Time: 07:00 <Deyanira Oropeza V - Last Filed: 01/17/18 01:30> Results - Vital Signs Recent Vital Signs: Last Vital Signs Temp 98.5 F 01/16/18 06:00 Pulse 85 01/16/18 14:00 Resp 22 01/16/18 06:00 BP 109/59 L 01/16/18 13:35 Pulse Ox 94 L 01/16/18 06:00 - Labs Result Diagrams: 01/15/18 13:35 01/15/18 13:35 Attending/Attestation - Attestation I have personally seen and examined this patient.: Yes I have fully participated in the care of the patient.: Yes I have reviewed all pertinent clinical information: Yes Notes (Text): This is an addendum to GI consult report dictated by the Honing Machine Set Up Operator.The patient was seen and examined earlier. Medical records, lab studies, imagings were reviewed. Last 24 hours events reviewed. Agreed with the above treatment plan as outlined in Honing Machine Set Up Operator 's notes the with the addition of the following this patient has history of cirrhosis of the liver h/o varices sp band ligation in the past Started on octreotide, continue PPI Follow-up hemoglobin and hematocrit Patient may benefit from the endoscopy and the timing will be based on the clinical course 01/17/18 01:25
[2018-01-16] MEDS ORDERED: Dorzolamide 2%/Timolol 0.5% 100 DROP/10 ML BOTTLE OU SCH (10:00)
--- NOTE | 2018-01-16 10:16 | CT ---
PROCEDURE: CT Chest without contrast HISTORY: COPD, esophageal varices COMPARISON: None. TECHNIQUE: Contiguous axial images were obtained through the chest without intravenous contrast enhancement. Sagittal and coronal reconstructions were performed. Radiation dose (DLP): 190 mGy-cm. This CT exam was performed using one or more of the following dose reduction techniques: Automated exposure control, adjustment of the mA and/or kV according to patient size, and/or use of iterative reconstruction technique. FINDINGS: LUNGS: There is a small right effusion. There is an interstitial infiltrate or scar in the inferior posterior right upper lobe MEDIASTINUM: Unremarkable thoracic aorta. No aneurysm. Normal sized heart. Main pulmonary artery unremarkable. No vascular congestion. No lymphadenopathy. PLEURA: No pleural fluid. No pneumothorax. BONES: No fracture. No destructive lesion. UPPER ABDOMEN: There is a small amount of ascites. There is cirrhosis of the liver. There are some dilated varices near the GE junction. Evaluation of esophageal varices is limited without IV contrast. OTHER FINDINGS: None. IMPRESSION: There is a small right effusion. There is an interstitial infiltrate or scar in the inferior posterior right upper lobe There is a small amount of ascites. There is cirrhosis of the liver. There are some dilated varices near the GE junction. Evaluation of esophageal varices is limited without IV contrast.
[2018-01-16] MEDS ORDERED: guaiFENesin 100 mg/5 ml Syrup UD PO PRN (13:22)
[2018-01-16 13:40] VITALS: BP 109/59
--- NOTE | 2018-01-16 14:03 | CP.PCM.CON ---
History of Present Illness - History of Present Illness History of Present Illness: General Surgery Consult Note for Dr. Herrera Patient signed out AMA before he could be interviewed and evaluated by General Surgery. Past Patient History - Infectious Disease Hx of Infectious Diseases: None - Tetanus Immunizations Tetanus Immunization: Unknown - Past Social History Smoking Status: Heavy Smoker > 10 Cigarettes Daily - CARDIAC Hx Cardiac Disorders: Yes Hx Hypertension: Yes - PULMONARY Hx Respiratory Disorders: Yes Hx Asthma: Yes Hx Chronic Obstructive Pulmonary Disease (COPD): Yes - NEUROLOGICAL Hx Neurological Disorder: Yes HX Cerebrovascular Accident: Yes - HEENT Hx HEENT Problems: Yes Hx Blind: Yes Hx Cataracts: Yes (both eyes) Hx Deafness: Yes Hx Glaucoma: Yes (left eye) - RENAL Hx Chronic Kidney Disease: No - ENDOCRINE/METABOLIC Hx Endocrine Disorders: No - HEMATOLOGICAL/ONCOLOGICAL Hx Blood Disorders: No Hx Cirrhosis: Yes - INTEGUMENTARY Hx Dermatological Problems: No - MUSCULOSKELETAL/RHEUMATOLOGICAL Hx Musculoskeletal Disorders: Yes Hx Arthritis: Yes Hx Falls: No - GASTROINTESTINAL Hx Gastrointestinal Disorders: Yes Other/Comment: GI Bleed; Esophageal varices - GENITOURINARY/GYNECOLOGICAL Hx Genitourinary Disorders: No - PSYCHIATRIC Hx Psychophysiologic Disorder: Yes Hx Depression: Yes Hx Psychosis: Yes Hx Substance Use: No - SURGICAL HISTORY Hx Surgeries: Yes Hx Orthopedic Surgery: Yes (l hip fx sx 10/20/16) Other/Comment: us guided paracenthesis 06/23/14 - ANESTHESIA Hx Anesthesia: Yes Hx Anesthesia Reactions: No Hx Malignant Hyperthermia: No Meds Allergies/Adverse Reactions: Allergies Allergy/AdvReac Type Severity Reaction Status Date / Time No Known Allergies Allergy Verified 04/18/17 13:39 - Medications Medications: Current Medications Albuterol/Ipratropium (Duoneb 3 Mg/0.5 Mg (3 Ml) Ud) 3 ml IH Q3H PRN PRN Reason: Shortness of Breath Last Admin: 01/15/18 20:35 Dose: 3 ml Dorzolamide/Timolol (Cosopt 2%-0.5% Opht) 1 drop OU BID JUANITA Last Admin: 01/16/18 10:39 Dose: 1 drop Famotidine (Pepcid) 40 mg PO HS JUANITA Last Admin: 01/15/18 21:42 Dose: 40 mg Furosemide (Lasix) 40 mg IVP DAILY JUANITA Last Admin: 01/16/18 13:35 Dose: 40 mg Guaifenesin (Robitussin) 100 mg PO Q6 PRN PRN Reason: Cough Last Admin: 01/16/18 13:36 Dose: 100 mg Sodium Chloride (Sodium Chloride 0.9%) 1,000 mls @ 100 mls/hr IV .Q10H JUANITA Last Admin: 01/16/18 06:00 Dose: 100 mls/hr Octreotide Acetate 1,250 mcg/ (Sodium Chloride) 252.5 mls @ 10.1 mls/hr IV .Q24H JUANITA; 50 MCG/HR PRN Reason: Protocol Last Admin: 01/16/18 11:33 Dose: 50 mcg/hr, 10.1 mls/hr Latanoprost (Xalatan Opht) 0.02 ml OU HS JUANITA Last Admin: 01/15/18 21:42 Dose: 0.02 ml Ondansetron HCl (Zofran Inj) 4 mg IVP Q4H PRN PRN Reason: Nausea/Vomiting Sertraline HCl (Zoloft) 25 mg PO DAILY [facility] Last Admin: 01/16/18 10:39 Dose: 25 mg Results - Vital Signs Recent Vital Signs: Last Vital Signs Temp 98.5 F 01/16/18 06:00 Pulse 81 01/16/18 06:00 Resp 22 01/16/18 06:00 BP 109/59 L 01/16/18 13:35 Pulse Ox 94 L 01/16/18 06:00 - Labs Result Diagrams: 01/15/18 13:35 01/15/18 13:35 Labs: Laboratory Results - last 24 hr 01/15/18 18:30 pO2 95 H VBG pH 7.36 VBG pCO2 41.0 VBG HCO3 23.2 VBG Total CO2 24.5 VBG O2 Sat (Calc) 99.8 H VBG Base Excess -2.2 L VBG Potassium 3.6 Sodium 140.0 Chloride 112.0 H Glucose 109 Lactate 1.2 FiO2 21.0 Venous Blood Potassium 3.6
[2018-01-16 16:06] VITALS: PULSE 85
--- NOTE | 2018-01-16 16:10 | US ---
HISTORY: cirrhosis, varices COMPARISON: None. TECHNIQUE: Sonographic evaluation of the abdomen. FINDINGS: LIVER: Measures 13.8 cm. Diffusely increased echogenicity of the liver parenchyma. Reflecting fatty infiltration or hepatic cellular disease. Nodular contour consistent with hepatic cirrhosis. No mass. No intrahepatic biliary ductal dilatation. Normal hepatopetal portal venous flow. GALLBLADDER: Cholelithiasis. Diffusely thickened wall. This is nonspecific and may be related to hepatic cellular disease and ascites. Negative sonographic Kwan sign. COMMON BILE DUCT: Measures 4 mm. No stones. No dilatation. PANCREAS: Unremarkable as visualized. No mass. No ductal dilatation. RIGHT KIDNEY: Measures 11.2cm. Normal echogenicity. No calculus, mass, or hydronephrosis. LEFT KIDNEY: Measures 10.8cm. Normal echogenicity. No calculus, mass, or hydronephrosis. SPLEEN: Minimally enlarged, measuring 13.3 cm. No mass. AORTA: No aneurysmal dilatation. IVC: Unremarkable. OTHER FINDINGS: Generalized ascites IMPRESSION: Hepatic cirrhosis. Generalized ascites. Cholelithiasis with nonspecific thickening of gallbladder wall. Minimal splenomegaly.
--- NOTE | 2018-01-16 16:39 | CP.PCM.PCO ---
Physician Communication Note - Physician Communication Note Physician Communication Note: On oOctreotide drip/Await workup before any surgery
--- NOTE | 2018-01-16 18:16 | US ---
PROCEDURE: Portal vein duplex ultrasound. CLINICAL HISTORY: Cirrhosis. Deteriorating liver function. Evaluate for portal vein thrombosis. PHYSICIAN(S): Juan Miguel Scott M.D. FINDINGS: The hepatic parenchyma is very heterogeneous in appearance. No obvious mass is seen on the limited images of the liver The extrahepatic portal vein is small with hepatopetal flow. Hepatic artery is hypertrophied. The spleen is enlarged. There is a small amount of ascites in the upper abdomen. IMPRESSION: 1. Patent portal vein with hepatopetal flow.
--- NOTE | 2018-01-17 05:22 | HP ---
CHIEF COMPLAINT: GI bleeding. HISTORY OF PRESENT ILLNESS: Mr. Esteban Carrion is a 72-year-old male, has a medical history of esophageal varices, upper GI bleeding, history of ethanol abuse, arthritis, came to the emergency room, complaining about frequent hemoptysis and droplets of blood from his nose. He is primarily Divehi speaking, but he speaks [place]ian also, but I read ER notes and nurse translated for me. Hard of hearing. Complaining about coughing for 2 months and according to him, he coughs blood and has blood running down in his nose, but started worsening 2 days ago experienced 3 to 4 episodes of coughing blood. He believed the bleeding is coming from his throat. One history of GI bleeding and surgery also. No nausea, vomiting or fever. Having right inguinal pain especially with coughing. He has hernia. Never got surgery. On the left ear, external pinna, there is big skin tag and according to the patient that is bothering him. He wanted to get rid from that. PAST MEDICAL HISTORY: As above, hypertension, COPD, left ear injury, red raised rash to the head, face, arms, chest and legs. Toe nails of both feet are long, thick, hard and weight loss, history of upper GI bleeding, still smokes, depression, psychosis. FAMILY HISTORY: Father and mother noncontributory. SOCIAL HISTORY: Habits: Smoking, yes. Alcohol, yes. Drugs, denied. PAST SURGICAL HISTORY: History of left hip surgery. ALLERGIES: PATIENT IS NOT ALLERGIC WITH ANY MEDICATION. HOME MEDICATIONS: Eyedrops and Zoloft. REVIEW OF SYSTEMS: The patient is seen and examined at the bedside, looking comfortable. According to him, no more bleeding. Still having tenderness in the right inguinal area. No fever. No chills. No headache. No dizziness. No chest pain. No palpitation. PHYSICAL EXAMINATION: VITAL SIGNS: Temperature 97.9, pulse 81, respirations 18, blood pressure 130/57, pulse oximetry 99. HEENT: Head: Normocephalic, atraumatic. Eyes: PERRLA. Extraocular muscles intact. Conjunctivae clear. Nose: Patent. Mucous membrane moist. NECK: Supple. No carotid bruit. No JVD or thyromegaly. CHEST: Bilaterally symmetrical. HEART: S1 and S2 positive. LUNGS: Clear to auscultation. ABDOMEN: Soft. Bowel sounds positive. No organomegaly. Right inguinal area has swelling, tender. EXTREMITIES: No edema. No cyanosis. SKIN: Left ear has big skin tag. LABORATORY DATA: White blood cell is 4.8, hemoglobin 8.3, hematocrit 27.7, platelet 228. Sodium 145, potassium 3.8, BUN 12, creatinine 0.5, glucose 115. ASSESSMENT AND PLAN: Mr. Esteban Carrion is a 72-year-old male with leukopenia, anemia, hyperchloremia, hyperglycemia, came with upper gastrointestinal bleeding, right inguinal hernia. CAT scan of the chest done. Abdominal ultrasound done. Abdomen and pelvis CT done. Patient was getting octreotide drip. I reviewed Dr. Herrera' communication report, history of noncompliance, esophageal varies, has small right effusion. There is any interstitial filtrates or scar in the anterior/posterior right upper lobe. There is a small amount of ascites, cirrhosis of the liver, some dilated varicose near the gastroesophageal junction. Evaluation of the esophageal varies is limited without IV contrast. Patient is very noncompliant. Never came in my office. History of chronic obstructive pulmonary disease, cirrhosis of liver secondary to alcohol and hepatitis B, esophageal varies grade 2, legally blind, hard of hearing, history of left hip surgery, urged to be compliant, education done. Patient has been on octreotide drip. Called consult with Dr. Oropeza, GI; Dr. Atkins, [facility]. Urged to quit smoking and drinking and keeping patient n.p.o. GI and DVT prophylaxis given. Discussion done with nursing staff. We will follow up. Evie Ponce MD
--- NOTE | 2018-01-17 07:29 | CON ---
DATE: 01/16/2018 REFERRING PHYSICIAN: Evie Ponce MD REASON FOR CONSULTATION: Chronic obstructive lung disease, has some blood-tinged sputum. HISTORY OF PRESENT ILLNESS: This is a 72-year-old gentleman well known to me from previous admission, noncompliant with the followup, chronic obstructive lung disease and history of alcohol abuse, history of GI bleed with esophageal varices, also has a cirrhotic liver. He is a legally blind, very hard of hearing, active smoker, comes in with blood-tinged sputum, cough, shortness of breath. Also, complaining about some nausea and vomiting after eating, had some epistaxis. PAST MEDICAL HISTORY: As per history of present illness. Also have a diabetes, degenerative joint disease, right inguinal hernia. FAMILY HISTORY: Significant cardiopulmonary disease reported. SOCIAL HISTORY: Active smoker and also has a history of excessive alcohol use. ALLERGIES: NONE KNOWN. MEDICATIONS; He is on DuoNeb every 3 hour p.r.n., Lasix 40 mg daily, Pepcid 40 mg at bedtime, Robitussin 100 mg twice a day, IV fluid normal saline 100 mL/hour, Zofran p.r.n. basis, Zoloft 25 mg daily. REVIEW OF SYSTEMS: No headache, no rhinitis. At present, there is no more nasal bleed. Has some cough. No hemoptysis any more. Denying any abdominal pain, wants to eat, complaining of a right inguinal hernia on and off, presently feels okay. No leg pain or leg swelling. PHYSICAL EXAMINATION: GENERAL: No acute distress. VITAL SIGNS: Temperature is 98, heart rate 81, respiratory is 22, blood pressure 198/53, pulse ox 94% room air. HEENT: Moist mucous membranes. No ulcer or thrush noted. NECK: Supple. No JVD. LUNGS: Have a scattered rhonchi and wheezing. HEART: S1 and S2. ABDOMEN: Soft, nontender, no organomegaly. Right inguinal has some hernia. No tenderness. EXTREMITIES: There is no edema. NEUROLOGIC: Awake and alert. Follows simple commands. LABORATORY DATA: The shows hemoglobin 8.3, hematocrit 27.7, WBC 4.8, platelet is 228. INR 1.18. Has a VBG done which shows pH 7.36, pCO2 of 41, O2 95. Sodium 145, potassium 3.8, chloride 111, bicarbonate 23, BUN 12, creatinine 0.5, glucose 115, calcium 8.3, AST 42, ALT 28, alk phos is 191. Troponin 0.01. Albumin is 3.1, amylase is 65, lipase is 324. Has a CT scan of the chest done today which shows a small right pleural effusion, some interstitial scarring and infiltrate, small ascites, also cirrhotic liver, has a dilated varices in the GE junction. IMPRESSION: Chronic obstructive lung disease, legally blind, history of esophageal varices, cirrhotic liver, alcohol abuse, inguinal hernia. Pulmonary point of view, doing okay. Continue bronchodilator. Keep head at 45 degrees. Surgical consult. Gastric prophylaxis, GI followup. Fall precaution. The patient has to stop smoking. Gastric prophylaxis. to lower extremity. Thank you and we will follow with you. Theodore Atkins MD
== END 2018-01-16 18:14 | disposition left against medical advice (07) | DRG 432 ==
LOC: ED 12:49 → ERH 17:57 → 3RNO 20:07
PROVIDERS: ADMIT Internal Medicine; ATTEND Internal Medicine
DX: K70.31 Alcoholic cirrhosis of liver with ascites (principal); I85.11 Secondary esophageal varices with bleeding; B19.10 Unspecified viral hepatitis B without hepatic coma; J44.1 Chronic obstructive pulmonary disease with (acute) exacerbation; I10 Essential (primary) hypertension; R04.0 Epistaxis; F10.10 Alcohol abuse, uncomplicated; K40.90 Unilateral inguinal hernia, without obstruction or gangrene, not specified as recurrent; K64.8 Other hemorrhoids; Z91.19 Patient's noncompliance with other medical treatment and regimen; H91.90 Unspecified hearing loss, unspecified ear; H54.8 Legal blindness, as defined in USA; F17.210 Nicotine dependence, cigarettes, uncomplicated; Z91.81 History of falling; Z86.73 Personal history of transient ischemic attack (TIA), and cerebral infarction without residual deficits

== ENCOUNTER 2018-01-29 14:14 | Emergency (ER) | payer MEDICARE, MEDICAID ==
[2018-01-29 14:29] VITALS: BMI 18.8
--- NOTE | 2018-01-29 14:40 | ED PDOC ---
Arrival/HPI - General Chief Complaint: Trauma Time Seen by Provider: 01/29/18 14:29 Historian: Patient - History of Present Illness Narrative History of Present Illness (Text): you were treated in the ED today for hx of copd, left ear deafness, legally blind, cirrhosis with HepB, esophageal varices, recently left the hospital a few days ago, now feeling dizzy and having a fall/possible head injury with left ear bleeding but otherwise without any neck pain/loss of consciousness/ nausea/vomiting/headache/difficulty breathing/chest pain/abdomen pain/numbness/ tingling/loss of limb function/pain with urination. Past Medical History - Provider Review Nursing Documentation Reviewed: Yes - Travel History Have you recently traveled outside [place] w/in the past 3 mons?: No - Infectious Disease Hx of Infectious Diseases: None - Tetanus Immunization Tetanus Immunization: Unknown - Past Medical History Past Medical History: No Previous - Cardiac Hx Cardiac Disorders: Yes Hx Hypertension: Yes - Pulmonary Hx Respiratory Disorders: Yes Hx Asthma: Yes Hx Chronic Obstructive Pulmonary Disease (COPD): Yes - Neurological Hx Neurological Disorder: Yes HX Cerebrovascular Accident: Yes - HEENT Hx HEENT Disorder: Yes Hx Blind: Yes Hx Cataracts: Yes (both eyes) Hx Deafness: Yes Hx Glaucoma: Yes (left eye) - Renal Hx Renal Disorder: No - Endocrine/Metabolic Hx Endocrine Disorders: No - Hematological/Oncological Hx Blood Disorders: No Hx Cirrhosis: Yes - Integumentary Hx Dermatological Disorder: No - Musculoskeletal/Rheumatological Hx Musculoskeletal Disorders: Yes Hx Arthritis: Yes Hx Falls: No - Gastrointestinal Hx Gastrointestinal Disorders: Yes Other/Comment: GI Bleed; Esophageal varices - Genitourinary/Gynecological Hx Genitourinary Disorders: No - Psychiatric Hx Psychophysiologic Disorder: Yes Hx Depression: Yes Hx Psychosis: Yes Hx Substance Use: No - Past Surgical History Past Surgical History: No Previous - Surgical History Hx Orthopedic Surgery: Yes (l hip fx sx 10/20/16) Other/Comment: us guided paracenthesis 06/23/14 - Anesthesia Hx Anesthesia: Yes Hx Anesthesia Reactions: No Hx Malignant Hyperthermia: No - Suicidal Assessment Feels Threatened In Home Enviroment: No Family/Social History - Physician Review Nursing Documentation Reviewed: Yes Family/Social History: No Known Family HX Smoking Status: Heavy Smoker > 10 Cigarettes Daily Hx Alcohol Use: Yes Hx Substance Use: No Hx Substance Use Treatment: No Allergies/Home Meds Allergies/Adverse Reactions: Allergies No Known Allergies Allergy (Verified 04/18/17 13:39) Home Medications: Home Meds Medication Instructions Recorded Confirmed Dorzolamide 2%/Timolol 0.5% 1 drop BOTHEYES BID 01/15/18 01/29/18 [Cosopt 2%-0.5% Opht] Latanoprost [Xalatan] 1 drop BOTHEYES DAILY 01/15/18 01/29/18 Sertraline [Zoloft] 1 tab PO DAILY 01/15/18 01/29/18 Review of Systems - Review of Systems Constitutional: Normal Eyes: Normal ENT: Normal Respiratory: Normal Cardiovascular: Normal Gastrointestinal: Normal Genitourinary Male: Normal Musculoskeletal: Normal Skin: Normal Neurological: Dizziness Endocrine: Normal Hemo/Lymphatic: Normal Psychiatric: Normal Physical Exam Vital Signs Reviewed: Yes Vital Signs Temp Pulse Resp BP Pulse Ox 01/29/18 14:15 98.5 F 76 18 139/74 99 Appearance: Positive for: Well-Appearing, Non-Toxic, Comfortable Pain Distress: None Mental Status: Positive for: Alert and Oriented X 3 - Systems Exam Head: Present: Atraumatic, Normocephalic Pupils: Present: PERRL Extroacular Muscles: Present: EOMI Conjunctiva: Present: Normal Ears: Present: Other ( no acute sign of infection/bleeding but mild top of left auricle punctate lesion and mild dried blood in left ear canal with mild blood on tympanic membrane without mastoid or tragus tenderness and no active bleeding ,) Mouth: Present: Moist Mucous Membranes Pharnyx: Present: Normal Nose (External): Present: Atraumatic Nose (Internal): Present: Normal Inspection Neck: Present: Normal Range of Motion, Other (no c-t-l spinal or paraspinal tenderness) Respiratory/Chest: Present: Clear to Auscultation, Good Air Exchange Cardiovascular: Present: Regular Rate and Rhythm Abdomen: No: Tenderness, Distention, Normal Bowel Sounds, Peritoneal Signs, Rebound, Guarding, McBurney's Point Tender, Rovsing's Sign Present, Hernias, Feeding Tubes, Ostomy Tubes, Mass/Organomegaly, Scars, Other Back: Present: Normal Inspection Upper Extremity: Present: Normal Inspection Lower Extremity: Present: Normal Inspection Neurological: Present: GCS=15, CN II-XII Intact, Speech Normal, Motor Func Grossly Intact Skin: Present: Warm, Normal Color Psychiatric: Present: Alert, Oriented x 3, Normal Insight, Normal Concentration Medical Decision Making ED Course and Treatment: you were treated in the ED today for hx of copd, left ear deafness, legally blind, cirrhosis with HepB, esophageal varices, recently left the hospital a few days ago, now feeling dizzy and having a fall/possible head injury with left ear bleeding but otherwise without any neck pain/loss of consciousness/ nausea/vomiting/headache/difficulty breathing/chest pain/abdomen pain/numbness/ tingling/loss of limb function/pain with urination. You were otherwise breathing easily, smiling and talking easily, good strength/sensation, clear lungs, no abdomen tenderness, skin left ear canal without acute sign of infection/bleeding but mild top of left auricle punctate lesion and mild dried blood in left ear canal with mild blood on tympanic membrane without mastoid or tragus tenderness and no active bleeding, no spinal tenderness, no fever temp 98.5, stable heart rate 76, stable breathing rate 18, excellent oxygen level 99% room air, elevated blood pressure 139/74 which we recommend repeat in 2-3 days primary care office to determine further treatment, you have blood tests no infection count 5, stable blood level hemoglobin 8.9 improved from prior 8.3/ platelets 179, stable chemistry, heart blood test negative less than 0.01, urine test____, radiology ct head stable limited age-limited neurodegenerative findings/no definate intracranial findings, ECG p axis, ciprodex left ear, observation done in the ED with improvement, discussed with Dr. Ponce who stated will accept for admission but you refused to stay further in the hospital for further care/observation and cautioned for complications/, counselled to monitor symptoms and thus you wanted to go home with your daughter who is with you. 1. Recommend ofloxacin as directed for left ear (as) for infection prevention. 2. Recommend follow-up primary care 1 day to review symptoms, referral to ear nose throat clinic for left ear tympanic membrane injury to ensure further care, referral to neurology/neurosurgery to review symptoms and for ct findings of subarrachnoid calcifications/cortical punctate granulomata findings to ensure no complications/cancer development, referral to cardiology clinic to review your symptoms, referral to ear nose throat to review your symptoms and to ensure no complications/cancer development, referral to gastroenterology and hematology/oncology clinic for mildly low blood levels 8.9 to ensure no complications, referral to gastroenterology clinic for elevated liver test alkaline phosphatase 212 to ensure no complications. 4. If any worsening pain, fever, chills, nausea, vomiting, difficulty breathing, numbness, loss of limb function, pain with urination or any medical condition then return to the ED. 01/29/18 14:41 01/29/2018 16:[address] IMPRESSION: Stable, limited age-related neuro-degenerative findings which appear age-appropriate are identified. No definite acute intracranial findings. Follow-up CT or MRI are available if clinically warranted given clinical history. Dictator: Robby Andrade MD 01/29/18 16:24 01/29/18 17:27 Reassessment Condition: Re-examined, Improved - Lab Interpretations Lab Results: 01/29/18 15:11 01/29/18 15:11 Lab Results 01/29/18 15:11: Sodium 144, Potassium 3.8, Chloride 109 H, Carbon Dioxide 24, Anion Gap 15, BUN 10, Creatinine 0.5 L, Est GFR ( Amer) > 60, Est GFR ( Non-Af Amer) > 60, Random Glucose 91, Calcium 8.7, Magnesium 2.0, Total Bilirubin 0.6, AST 45, ALT 31, Alkaline Phosphatase 212 H, Lactate Dehydrogenase 574, Total Creatine Kinase 53, Troponin I < 0.01, Total Protein 7.7, Albumin 3.7, Globulin 4.0, Albumin/Globulin Ratio 0.9 L 01/29/18 15:11: PT 13.1 H, INR 1.15 H, APTT 36.9 H 01/29/18 15:11: WBC 5.3, RBC 4.44, Hgb 8.9 L, Hct 28.8 L, MCV 64.9 L, MCH 20.0 L , MCHC 30.9 L, RDW 20.9 H, Plt Count 179, Gran % 43.8 L, Lymph % (Auto) 35.8 H, Banks % (Auto) 7.9 H, Eos % (Auto) 10.1 H, Baso % (Auto) 2.4, Gran # 2.33, Lymph # (Auto) 1.9, Banks # (Auto) 0.4, Eos # (Auto) 0.5, Baso # (Auto) 0.13 I have reviewed the lab results: Yes - RAD Interpretation Radiology Orders: 01/29/18 14:32 HEAD W/O CONTRAST [CT] 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 Ulcer: No History Surgical Site Infection Following: None - Disposition Have Diagnosis and Disposition been Completed?: Yes Diagnosis: Dizziness, Head injury Disposition: AGAINST MEDICAL ADVICE Disposition Time: 17:30 Condition: IMPROVED Discharge Instructions (ExitCare): Head Injury Observation (DC), Vertigo (a Type of Dizziness) (DC) Additional Instructions: you were treated in the ED today for hx of copd, left ear deafness, legally blind, cirrhosis with HepB, esophageal varices, recently left the hospital a few days ago, now feeling dizzy and having a fall/possible head injury with left ear bleeding but otherwise without any neck pain/loss of consciousness/ nausea/vomiting/headache/difficulty breathing/chest pain/abdomen pain/numbness/ tingling/loss of limb function/pain with urination. You were otherwise breathing easily, smiling and talking easily, good strength/sensation, clear lungs, no abdomen tenderness, skin left ear canal without acute sign of infection/bleeding but mild top of left auricle punctate lesion and mild dried blood in left ear canal with mild blood on tympanic membrane without mastoid or tragus tenderness and no active bleeding, no spinal tenderness, no fever temp 98.5, stable heart rate 76, stable breathing rate 18, excellent oxygen level 99% room air, elevated blood pressure 139/74 which we recommend repeat in 2-3 days primary care office to determine further treatment, you have blood tests no infection count 5, stable blood level hemoglobin 8.9 improved from prior 8.3/ platelets 179, stable chemistry, heart blood test negative less than 0.01, urine test____, radiology ct head stable limited age-limited neurodegenerative findings/no definate intracranial findings, ECG p axis, ciprodex left ear, observation done in the ED with improvement, discussed with Dr. Ponce who stated will accept for admission but you refused to stay further in the hospital for further care/observation and cautioned for complications/, counselled to monitor symptoms and thus you wanted to go home with your daughter who is with you. 1. Recommend ofloxacin as directed for left ear (as) for infection prevention. 2. Recommend follow-up primary care 1 day to review symptoms, referral to ear nose throat clinic for left ear tympanic membrane injury to ensure further care, referral to neurology/neurosurgery to review symptoms and for ct findings of subarrachnoid calcifications/cortical punctate granulomata findings to ensure no complications/cancer development, referral to cardiology clinic to review your symptoms, referral to ear nose throat to review your symptoms and to ensure no complications/cancer development, referral to gastroenterology and hematology/oncology clinic for mildly low blood levels 8.9 to ensure no complications, referral to gastroenterology clinic for elevated liver test alkaline phosphatase 212 to ensure no complications. 4. If any worsening pain, fever, chills, nausea, vomiting, difficulty breathing, numbness, loss of limb function, pain with urination or any medical condition then return to the ED. Prescriptions: Ofloxacin Otic 0.3% [Floxin 0.3% Otic Soln] 50 drop BID 7 Days #1 bottle Referrals: Cody Varma MD [Primary Care Provider] - Follow up with primary Forms: [employer] (Japanese)
[2018-01-29 14:42] VITALS: RESP 18; TEMP 98.5
[2018-01-29] MEDS ORDERED: Ciprofloxacin/Dexamethasone OTIC SUSP AS STA (15:14)
[2018-01-29 15:16] LABS: BASO # 0.13 K/mm3 (0.0-2.0); BASO % 2.4 % (0.0-3.0); EOS # 0.5 (0.0-0.7); EOS % 10.1 % (1.5-5.0); GRAN # 2.33 (1.4-6.5); GRAN % 43.8 % (50.0-68.0); HEMOGLOBIN 8.9 g/dL (14.0-18.0); LYMPH # 1.9 (1.2-3.4); LYMPH % 35.8 % (22.0-35.0); MEAN CELL VOLUME 64.9 fl (80.0-105.0); MEAN CORPUSCULAR HGB CONC 30.9 g/dl (31.0-37.0); MONO # 0.4 (0.1-0.6); MONO % 7.9 % (1.0-6.0); PLATELET COUNT 179 10^3/uL (120.0-450.0); RBC 4.44 10^6/uL (3.5-6.1); RED CELL DISTRIBUTION WIDTH 20.9 % (11.5-14.5); WHITE BLOOD COUNT 5.3 10^3/ul (4.5-11.0)
[2018-01-29 15:27] LABS: ALB/GLOB RATIO 0.9 (1.1-1.8); ALBUMIN 3.7 g/dL (3.0-4.8); ALT/SGPT 31 U/L (7-56); AST/SGOT 45 U/L (17-59); BLOOD UREA NITROGEN 10 mg/dL (7-21); CALCIUM 8.7 mg/dL (8.4-10.5); GFR AFRICAN-AMERICAN > 60; GFR NON-AFRICAN AMERICAN > 60
[2018-01-29 15:30] LABS: INR 1.15 (0.93-1.08); PARTIAL THROMBOPLASTIN TIME 36.9 Seconds (25.1-36.5); PROTHROMBIN TIME 13.1 SECONDS (9.4-12.5)
[2018-01-29 15:38] LABS: TROPONIN I < 0.01 ng/mL
--- NOTE | 2018-01-29 16:04 | CT ---
PROCEDURE: CT HEAD WITHOUT CONTRAST. HISTORY: 72yoM, dizziness, fall, possible head injury COMPARISON: Noncontrast head CTA 10/24/2016 TECHNIQUE: Axial computed tomography images were obtained through the head/brain without intravenous contrast. Radiation dose: Total exam DLP = 713.66 mGy-cm. This CT exam was performed using one or more of the following dose reduction techniques: Automated exposure control, adjustment of the mA and/or kV according to patient size, and/or use of iterative reconstruction technique. FINDINGS: HEMORRHAGE: No intracranial hemorrhage. BRAIN: Good corticomedullary differentiation is seen. Proportional, diffuse expansion of the ventriculosulcal and cisternal spaces is appreciated with borderline white matter lucency compatible with mild diffuse cerebral atrophy and borderline chronic microangiopathy. No suspicious extra-axial fluid collection is identified and the midline brain anatomy appears grossly nonfocal as imaged. There 1 or 2 punctate cortical granulomata at the bilateral frontal vertex versus subarachnoid calcifications. There is no mass effect throughout. VENTRICLES: Unremarkable. No hydrocephalus. CALVARIUM: Unremarkable. PARANASAL SINUSES: Unremarkable as visualized. No significant inflammatory changes. MASTOID AIR CELLS: Unremarkable as visualized. No inflammatory changes. OTHER FINDINGS: None. IMPRESSION: Stable, limited age-related neuro degenerative findings which appear age-appropriate are identified. No definite acute intracranial findings. Follow-up CT or MRI are available if clinically warranted given clinical history.
[2018-01-29 17:46] VITALS: BP 133/56; PULSE 78; O2SAT 95
[2018-01-29 18:01] LABS: URINE BILIRUBIN NEGATIVE (NEGATIVE); URINE BLOOD NEGATIVE (NEGATIVE); URINE GLUCOSE (UA) NEGATIVE (NEGATIVE); URINE LEUKOCYTE ESTERASE NEGATIVE Leu/uL (NEGATIVE); URINE PROTEIN NEGATIVE mg/dL (<30 mg/dL); URINE UROBILINOGEN 0.2 E.U./dL (<1 E.U./dL)
[2018-01-29 18:03] LABS: URINE APPEARANCE CLEAR (CLEAR); URINE COLOR YELLOW (YELLOW)
--- NOTE | 2018-01-29 18:18 | CARD ---
APPROVED REPORT EKG Measurement Heart [id number] <Conclusion> Unusual P axis, possible ectopic atrial rhythm Low voltage QRS Nonspecific ST and T wave abnormality Abnormal ECG
== END 2018-01-29 18:21 | disposition left against medical advice (07) ==
LOC: ED 14:14
DX: R42 Dizziness and giddiness (principal); S09.90XA Unspecified injury of head, initial encounter; W19.XXXA Unspecified fall, initial encounter; F17.210 Nicotine dependence, cigarettes, uncomplicated; I10 Essential (primary) hypertension; J44.9 Chronic obstructive pulmonary disease, unspecified; H54.8 Legal blindness, as defined in USA; H91.92 Unspecified hearing loss, left ear

== ENCOUNTER 2018-04-30 05:18 | Inpatient (IN) | payer MEDICARE, MEDICAID ==
[2018-04-30 05:27] VITALS: BMI 21.4
--- NOTE | 2018-04-30 05:57 | ED PDOC ---
Arrival/HPI <Williams Barthhammad - Last Filed: 05/02/18 11:11> <Castro Giraldo - Last Filed: 05/04/18 10:33> - General Time Seen by Provider: 04/30/18 05:30 - History of Present Illness Narrative History of Present Illness (Text): Esteban Carrion is a 72 year old male, whose past medical history includes liver cirrhosis, COPD, GI blood, and esophageal varices, presented for fluid leaking from surgical wound from a laprscopic hernia repair 3 weeks ago. Patient denies any fever, chills, chest pain, shortness of breath, abdominal pain, nausea, vomiting, diarrhea, urinary symptoms, back pain, neck pain, headache, dizziness, or any other complaints. (Jarocho Barth) Esteban Carrion is a 72 year old male, whose past medical history includes liver ci rrhosis, COPD, GI blood, and esophageal varices, presented for fluid leaking from surgical wound from a laprscopic hernia repair 3 weeks ago. Patient denies any fever, chills, chest pain, shortness of breath, abdominal pain, nausea, vomiting, diarrhea, urinary symptoms, back pain, neck pain, headache, dizziness, or any other complaints. (Castro Giraldo) Past Medical History - Infectious Disease Hx of Infectious Diseases: None - Tetanus Immunization Tetanus Immunization: Unknown - Past Medical History Past Medical History: No Previous - Cardiac Hx Cardiac Disorders: Yes Hx Hypertension: Yes - Pulmonary Hx Respiratory Disorders: Yes Hx Asthma: Yes Hx Chronic Obstructive Pulmonary Disease (COPD): Yes - Neurological Hx Neurological Disorder: Yes HX Cerebrovascular Accident: Yes - HEENT Hx HEENT Disorder: Yes Hx Blind: Yes Hx Cataracts: Yes (both eyes) Hx Deafness: Yes (left ear) Hx Glaucoma: Yes (left eye) - Renal Hx Renal Disorder: No - Endocrine/Metabolic Hx Endocrine Disorders: No - Hematological/Oncological Hx Blood Disorders: No Hx Cirrhosis: Yes - Integumentary Hx Dermatological Disorder: No - Musculoskeletal/Rheumatological Hx Musculoskeletal Disorders: Yes Hx Arthritis: Yes Hx Falls: No Hx Unsteady Gait: Yes - Gastrointestinal Hx Gastrointestinal Disorders: Yes Other/Comment: GI Bleed; Esophageal varices - Genitourinary/Gynecological Hx Genitourinary Disorders: No - Psychiatric Hx Psychophysiologic Disorder: Yes Hx Depression: Yes Hx Psychosis: Yes Hx Substance Use: No - Past Surgical History Past Surgical History: No Previous - Surgical History Hx Orthopedic Surgery: Yes (l hip fx sx 10/20/16) Other/Comment: us guided paracenthesis 06/23/14. hernia repair 04/2018 - Anesthesia Hx Anesthesia: Yes Hx Anesthesia Reactions: No Hx Malignant Hyperthermia: No - Suicidal Assessment Feels Threatened In Home Enviroment: No <Jarocho Barth - Last Filed: 05/02/18 11:11> - Provider Review Nursing Documentation Reviewed: Yes <Castro Giraldo - Last Filed: 05/04/18 10:33> Family/Social History Family/Social History: Unknown Family HX Smoking Status: Light Smoker < 10 Cigarettes Daily Hx Alcohol Use: No (denies) Hx Substance Use: No Hx Substance Use Treatment: No <Jarocho Barth - Last Filed: 05/02/18 11:11> - Physician Review Nursing Documentation Reviewed: Yes <Castro Giraldo - Last Filed: 05/04/18 10:33> Allergies/Home Meds <Jarocho Barth - Last Filed: 05/02/18 11:11> <Castro Giraldo - Last Filed: 05/04/18 10:33> Allergies/Adverse Reactions: Allergies No Known Allergies Allergy (Verified 04/18/17 13:39) Home Medications: Home Meds Medication Instructions Recorded Confirmed Dorzolamide 2%/Timolol 0.5% 1 drop BOTHEYES BID 01/15/18 04/30/18 [Cosopt 2%-0.5% Opht] Latanoprost [Xalatan] 1 drop BOTHEYES DAILY 01/15/18 04/30/18 Sertraline [Zoloft] 1 tab PO DAILY 01/15/18 04/30/18 Review of Systems - Physician Review All systems were reviewed & negative as marked: Yes - Review of Systems Respiratory: Normal. absent: SOB, Cough, Wheezing Cardiovascular: Normal. absent: Chest Pain, Palpitations, Edema Gastrointestinal: Other (states that he is having clear drainage from surgical incision that occured 3 weeks ago). absent: Abdominal Pain, Constipation, Diarrhea, Nausea Skin: Laceration (from surgical procedure 3 weeks ago.) <Jarocho Barth - Last Filed: 05/02/18 11:11> Physical Exam Temperature: Afebrile Blood Pressure: Normal Pulse: Regular Respiratory Rate: Normal Appearance: Positive for: Well-Appearing, Non-Toxic, Comfortable Pain Distress: None Mental Status: Positive for: Alert and Oriented X 3 - Systems Exam Head: Present: Atraumatic, Normocephalic Pupils: Present: PERRL Extroacular Muscles: Present: EOMI Respiratory/Chest: Present: Clear to Auscultation, Good Air Exchange. No: Respiratory Distress, Accessory Muscle Use, Wheezes Cardiovascular: Present: Regular Rate and Rhythm, Normal S1, S2. No: Murmurs, Rub, Gallop Abdomen: Present: Distention (from ascites that is not new to the pt, has linear laceration on the LUQ that is from a surgical incision which occured 3 weeks ago. There is no surrounding erythema, purulence or fluctance. Incision is actively draining clear colored fluid.), Normal Bowel Sounds. No: Tenderness, Peritoneal Signs, Rebound, Guarding Neurological: Present: GCS=15, Speech Normal Skin: Present: Warm, Dry, Normal Color, Laceration (noted above). No: Rashes Psychiatric: Present: Alert, Oriented x 3, Normal Insight, Normal Concentration <Jarocho Barth - Last Filed: 05/02/18 11:11> Vital Signs Temp Pulse Resp BP Pulse Ox 04/30/18 08:58 98.2 F 89 18 98 04/30/18 08:12 98.3 F 82 19 97/61 L 95 04/30/18 05:29 98.5 F 96 H 18 112/62 100 Medical Decision Making <Jarocho Barth - Last Filed: 05/02/18 11:11> <Castro Giraldo - Last Filed: 05/04/18 10:33> ED Course and Treatment: Pt seen and evaluated with medical aide. Aware and agree with HPI, clinical findings, plan, and management. (Jarocho Barth) Pt seen and evaluated with medical aide. Aware and agree with HPI, clinical findings, plan, and management. case d/w dr reyna will obs for ascites (Castro Giraldo) - Lab Interpretations Microbiology Results: Microbiology Results 04/30/18 06:15 Blood Blood Culture - Preliminary NO GROWTH AFTER 4 DAYS 04/30/18 06:00 Blood Blood Culture - Preliminary NO GROWTH AFTER 4 DAYS 05/01/18 11:00 Ascitic Fluid Gram Stain - Final 05/01/18 11:00 Ascitic Fluid Anaerobic Culture - Final NO ANAEROBES ISOLATED. 05/01/18 11:00 Ascitic Fluid Body Fluid Culture - Preliminary NO GROWTH AFTER 2 DAYS Lab Results: 04/30/18 06:00 04/30/18 06:45 Lab Results 05/01/18 11:00: Peritoneal Lipase 39.0 H 05/01/18 11:00: Fluid Albumin Pending, Peritoneal Tot Protein <3.0 05/01/18 11:00: Fluid Source Peritoneal, Fluid Appearance Bloody, Fluid WBC 385.0 H, Fluid RBC 32511.0 H, Fluid Tot Cell Count 100 H, Fluid Neutrophils 4.4 H, Fluid Lymphocytes 95.6 H, Fld Monocyte/Macrophag TEST NOT PERFORMED, Fluid Comment Red color 04/30/18 07:00: GGT 264 H 04/30/18 07:00: PT 14.1 H, INR 1.22 04/30/18 06:50: Blood Type AB POSITIVE, Antibody Screen Negative, Crossmatch See Detail, BBK History Checked Patient has bt 04/30/18 06:45: Sodium 138, Potassium 3.6, Chloride 106, Carbon Dioxide 25, Anion Gap 10, BUN 8, Creatinine 0.6 L, Est GFR ( Amer) > 60, Est GFR (Non-Af Amer) > 60, Random Glucose 90, Calcium 8.2 L, Phosphorus 2.6, Magnesium 1.9, Total Bilirubin 0.5, AST 43, ALT 25, Alkaline Phosphatase 208 H, Total Protein 6.4, Albumin 2.8 L, Globulin 3.6, Albumin/Globulin Ratio 0.8 L 04/30/18 06:00: WBC 4.1 L D, RBC 3.71, Hgb 7.0 L, Hct 23.5 L, MCV 63.3 L, MCH 18.9 L, MCHC 29.8 L, RDW 20.4 H, Plt Count 239, Gran % 40.9 L, Lymph % (Auto) 34.5, Lea % (Auto) 12.6 H, Eos % (Auto) 10.8 H, Baso % (Auto) 1.2, Gran # 1.66, Lymph # (Auto) 1.4, Lea # (Auto) 0.5, Eos # (Auto) 0.4, Baso # (Auto) 0.05 - RAD Interpretation Radiology Orders: 04/30/18 05:47 CXR [CHEST PORTABLE] [RAD] Stat 04/30/18 05:59 ABDOMEN COMPLETE [US] Stat 05/01/18 09:35 PARACENTESIS [US] Urgent - Medication Orders Current Medication Orders: Discontinued Medications Acetaminophen (Tylenol 325mg Tab) 650 mg PO Q4H PRN PRN Reason: Fever >100.5 F Last Admin: 04/30/18 23:22 Dose: 650 mg MAR Pain/Vitals Document 04/30/18 23:22 [facility] (Rec: 04/30/18 23:22 [id number]) Location Pain Location Body Site Abdomen Arformoterol Tartrate (Brovana) 15 mcg IH [id number] [facility] Last Admin: 05/03/18 09:54 Dose: 15 mcg Budesonide (Pulmicort Respules) 0.5 mg IH [id number] [facility] Last Admin: 05/03/18 09:54 Dose: 0.5 mg Calcium/Vitamin D (Oscal-D 250 Mg-125 Units Tab) 1 tab PO DAILY [facility] Last Admin: 05/03/18 10:55 Dose: 1 tab Diphenhydramine HCl (Benadryl) 50 mg IVP ONCE ONE Stop: 05/03/18 14:13 Last Admin: 05/03/18 14:22 Dose: 50 mg IVP Administration Document 05/03/18 14:22 [facility] (Rec: 05/03/18 14:22 [id number][place] Charges for Administration # of IVP Administrations 1 Dorzolamide/Timolol (Cosopt 2%-0.5% Opht) 1 drop OD BID [facility] Last Admin: 05/03/18 10:55 Dose: 1 drop Furosemide (Lasix) 20 mg PO DAILY [facility] Last Admin: 05/03/18 10:56 Dose: 20 mg MAR Blood Pressure Document 05/03/18 10:56 [facility] (Rec: 05/03/18 10:56 [id number]) Blood Pressure Blood Pressure (100/60-150/90) 122/64 Latanoprost (Xalatan Opht) 0 ml OD DAILY [facility] Last Admin: 05/03/18 10:55 Dose: 2.5 ml Lidocaine HCl (Lidocaine 1% 5 Ml) 50 mg IJ ONCE STA Stop: 04/30/18 11:46 Nicotine (Nicoderm Cq) 1 patch TD DAILY [facility] Last Admin: 05/03/18 10:55 Dose: 1 patch MAR Transdermal Patch Site Document 05/03/18 10:55 [facility] (Rec: 05/03/18 10:55 [id number]) Transdermal Patch Site Transdermal Patch Site Left Outer Upper Arm Pneumococcal Polyvalent Vaccine (Pneumovax 23 Vaccine) 0.5 ml IM .ONCE ONE Stop: 04/30/18 13:34 Sertraline HCl (Zoloft) 25 mg PO DAILY [facility] Last Admin: 05/03/18 10:55 Dose: 25 mg Spironolactone (Aldactone) 50 mg PO DAILY [facility] Last Admin: 05/03/18 10:55 Dose: 50 mg Thiamine HCl (Vitamin B1 Tab) 100 mg PO DAILY [facility] Last Admin: 05/03/18 10:55 Dose: 100 mg - 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 / has examined the patient and agrees with the treatment plan. <Castro Giraldo - Last Filed: 05/04/18 10:33> Disposition/Present on Arrival - Present on Arrival Any Indicators Present on Arrival: No History of DVT/PE: No History of Uncontrolled Diabetes: No Urinary Catheter: No History of Decub. Ulcer: No History Surgical Site Infection Following: None - Disposition Have Diagnosis and Disposition been Completed?: Yes Disposition Time: 23:45 <Jarocho Barth - Last Filed: 05/02/18 11:11> - Disposition Disposition Time: 07:00 <Castro Giraldo - Last Filed: 05/04/18 10:33> - Disposition Diagnosis: Surgical aftercare, injury or trauma Disposition: HOSPITALIZED Condition: STABLE
[2018-04-30 06:30] LABS: BASO # 0.05 K/mm3 (0.0-2.0); BASO % 1.2 % (0.0-3.0); EOS # 0.4 (0.0-0.7); EOS % 10.8 % (1.5-5.0); GRAN # 1.66 (1.4-6.5); GRAN % 40.9 % (50.0-68.0); LYMPH # 1.4 (1.2-3.4); LYMPH % 34.5 % (22.0-35.0); MEAN CELL VOLUME 63.3 fl (80.0-105.0); MEAN CORPUSCULAR HEMOGLOBIN 18.9 pg (25.0-35.0); MEAN CORPUSCULAR HGB CONC 29.8 g/dl (31.0-37.0); MONO # 0.5 (0.1-0.6); MONO % 12.6 % (1.0-6.0); PLATELET COUNT 239 10^3/uL (120.0-450.0); RBC 3.71 10^6/uL (3.5-6.1); RED CELL DISTRIBUTION WIDTH 20.4 % (11.5-14.5); WHITE BLOOD COUNT 4.1 10^3/ul (4.5-11.0)
[2018-04-30 07:23] LABS: ALB/GLOB RATIO 0.8 (1.1-1.8); ALBUMIN 2.8 g/dL (3.0-4.8); ALT/SGPT 25 U/L (7-56); AST/SGOT 43 U/L (17-59); BLOOD UREA NITROGEN 8 mg/dL (7-21); CALCIUM 8.2 mg/dL (8.4-10.5); GFR NON-AFRICAN AMERICAN > 60
--- NOTE | 2018-04-30 08:52 | RAD ---
Date of service: 04/30/2018 HISTORY: Ascites COMPARISON: Portable chest 01/15/2018. FINDINGS: LUNGS: No active pulmonary disease. PLEURA: No significant pleural effusion identified, no pneumothorax apparent. CARDIOVASCULAR: Normal. OSSEOUS STRUCTURES: No significant abnormalities. VISUALIZED UPPER ABDOMEN: Normal. OTHER FINDINGS: None. IMPRESSION: No interval acute cardiopulmonary disease appreciated.
--- NOTE | 2018-04-30 09:03 | US ---
Date of service: 04/30/2018 HISTORY: Ascites COMPARISON: Abdomen ultrasound 01/16/2018. TECHNIQUE: Sonographic evaluation of the abdomen. FINDINGS: LIVER: Measures 14.1 cm. No masses appreciated and overall echogenicity of the liver is inhomogeneous with a nodular surface reiterated compatible with cirrhotic liver disease. No distinguishable hepatic mass or intrahepatic biliary dilatation. GALLBLADDER: Gallbladder is contracted with mural edema likely a function of ascites related hydrops. Cholelithiasis is appreciate. No reported sonographic Kwan sign. COMMON BILE DUCT: Measures 5.3 mm. No stones. No dilatation. PANCREAS: Pancreas is obscured by overlying bowel gas. RIGHT KIDNEY: Measures 10.3cm. Normal echogenicity. No calculus, mass, or hydronephrosis. LEFT KIDNEY: Measures 11.0cm. Normal echogenicity. No calculus, mass, or hydronephrosis. SPLEEN: Normal in size and contour, measuring 11.4 cm. No mass. AORTA: No aneurysmal dilatation. IVC: Unremarkable. OTHER FINDINGS: None. IMPRESSION: Urpm-il-fbyofhyv site is reiterated with cirrhotic liver again evident. Pancreas is obscured by overlying bowel gas completely. Likely gallbladder hydrops is manifest by mural edema. Cholelithiasis identified in the lumen once again. No biliary tree dilatation or choledocholithiasis identified. [id number]-hl-yfzzzmsf ascites reiterated.
--- NOTE | 2018-04-30 09:04 | CARD ---
APPROVED REPORT Date of service: 04/30/2018 EKG Measurement Heart [id number] CT 160P70 [id number] <Conclusion> Normal sinus rhythm Anteroseptal infarct, age undetermined Low voltage limb leads NSSTW changes
[2018-04-30] MEDS: Latanoprost 2.5 ml Opht Soln OD SCH (10:54)
[2018-04-30] MEDS: Dorzolamide 2%/Timolol 0.5% 100 DROP/10 ML BOTTLE OD SCH ×2 (10:55→18:10)
[2018-04-30 11:24] LABS: INR 1.22; PROTHROMBIN TIME 14.1 SECONDS (9.4-12.5)
[2018-04-30] MEDS ORDERED: Lidocaine 1% 5ml Abboject IJ STA (11:45)
--- NOTE | 2018-04-30 13:06 | CP.PCM.CON ---
<Lucas Mancia - Last Filed: 04/30/18 20:08> History of Present Illness - History of Present Illness History of Present Illness: GI Fellow PGY4, consult note. Esteban Carrion is a 72M with cirrhosis presenting with abdominal fluid leak after laproscopic procedure. Patient states he had a hernia repair ~3 weeks ago at [facility]. He has been doing well post-operatively until he coughed and felt fluid dripping down his side from one of the surgical ports (Left). The fluid is clear and his abdomen is distended. 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 He has no other complaints at this time. Denies fever, abdominal pain. He does not know if he is taking any diuretics or if his medications have changed. 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 Family history: Non-contributory Past Patient History - Infectious Disease Hx of Infectious Diseases: None - Tetanus Immunizations Tetanus Immunization: Unknown - Past Social History Smoking Status: Light Smoker < 10 Cigarettes Daily - CARDIAC Hx Cardiac Disorders: Yes Hx Hypercholesterolemia: Yes Hx Hypertension: Yes - PULMONARY Hx Respiratory Disorders: Yes Hx Asthma: Yes Hx Bronchitis: Yes Hx Chronic Obstructive Pulmonary Disease (COPD): Yes - NEUROLOGICAL Hx Neurological Disorder: Yes - HEENT Hx HEENT Problems: Yes (legally blind) Hx Blind: Yes Hx Cataracts: Yes (both eyes) Hx Deafness: Yes (left ear) Hx Glaucoma: Yes (b/l) Other/Comment: had sx ro right eye for cataract/glaucoma/retina sx then lost his vision, pt had sx to left eye for cataract/glaucoma then lost his vision, hx of left ear injury 2010, has hearing aids at home but doesn't use them because they give pt a "headache" - RENAL Hx Chronic Kidney Disease: No - ENDOCRINE/METABOLIC Hx Endocrine Disorders: No - HEMATOLOGICAL/ONCOLOGICAL Hx Blood Disorders: Yes (bloot transfusion 10/30/16) Hx Cirrhosis: Yes (alcoholic cirrhosis) Hx Hepatitis B: (pt denies) - INTEGUMENTARY Hx Dermatological Problems: Yes Other/Comment: ble skin discolorations, small openng left abd draining clear fluid covered with dressing, some clear drainage noted had r inguinal hernia repair 04/2018 about 3 weks ago, red raised rash to forehead and face - MUSCULOSKELETAL/RHEUMATOLOGICAL Hx Musculoskeletal Disorders: Yes Hx Arthritis: Yes Hx Falls: Yes Hx Fractures: Yes (left hip 10/2016) Hx Unsteady Gait: Yes (walker/cane) Other/Comment: left hip pain for last 3-4 months c/o hardware is bothering him making it difficult to walk - GASTROINTESTINAL Hx Gastrointestinal Disorders: Yes (weight loss, poor appetite) Hx Liver Failure: Yes (cirrhosis ascites) Other/Comment: GI Bleed; Esophageal varices, hemoptysis, nosebleed, egd 04/09/17 dx 1cm hiatal hernia, bleeding esophageal varices. pt unable to wear dentures because pt lost weight and the dentures don't fit - GENITOURINARY/GYNECOLOGICAL Hx Genitourinary Disorders: No - PSYCHIATRIC Hx Psychophysiologic Disorder: Yes Hx Depression: Yes Hx Psychosis: Yes Other/Comment: hx etoh quit drinking 5-7 yrs ago, smokes 7-10 cigs a day used to smoke 2-3 packs a day as per pt - SURGICAL HISTORY Hx Surgeries: Yes Hx Orthopedic Surgery: Yes (l hip fx sx 10/20/16) Other/Comment: us guided paracenthesis 06/23/14. hernia repair 04/2018 us guided paracenthesis 04/16/17 - ANESTHESIA Hx Anesthesia: Yes Hx Anesthesia Reactions: No Hx Malignant Hyperthermia: No Meds Allergies/Adverse Reactions: Allergies Allergy/AdvReac Type Severity Reaction Status Date / Time No Known Allergies Allergy Verified 04/18/17 13:39 - Medications Medications: Current Medications Acetaminophen (Tylenol 325mg Tab) 650 mg PO Q4H PRN PRN Reason: Fever >100.5 F Dorzolamide/Timolol (Cosopt 2%-0.5% Opht) 1 drop OD BID [facility] Last Admin: 04/30/18 10:55 Dose: 1 drop Latanoprost (Xalatan Opht) 0 ml OD DAILY [facility] Last Admin: 04/30/18 10:54 Dose: 2.5 ml Sertraline HCl (Zoloft) 25 mg PO DAILY [facility] Last Admin: 04/30/18 10:54 Dose: 25 mg Physical Exam - Constitutional Appears: No Acute Distress, Cachectic, Chronically Ill - Head Exam Head Exam: NORMAL INSPECTION - Eye Exam Eye Exam: EOMI, Normal appearance - ENT Exam ENT Exam: Mucous Membranes Moist - Respiratory Exam Respiratory Exam: Clear to Auscultation Bilateral, NORMAL BREATHING PATTERN - Cardiovascular Exam Cardiovascular Exam: REGULAR RHYTHM, +S1, +S2 - GI/Abdominal Exam GI & Abdominal Exam: Distended, Firm, Normal Bowel Sounds, Soft. absent: Tenderness - Extremities Exam Extremities exam: Positive for: normal inspection - Neurological Exam Neurological exam: Alert, CN II-XII Intact, Oriented x3 - Psychiatric Exam Psychiatric exam: Normal Affect, Normal Mood - Skin Skin Exam: Dry, Normal Color Results - Vital Signs Recent Vital Signs: Last Vital Signs Temp 98.2 F 04/30/18 08:58 Pulse 89 04/30/18 08:58 Resp 18 04/30/18 08:58 BP 97/61 L 04/30/18 08:12 Pulse Ox 98 04/30/18 08:58 - Labs Result Diagrams: 04/30/18 06:00 04/30/18 06:45 Labs: Laboratory Results - last 24 hr 04/30/18 04/30/18 04/30/18 06:00 06:45 06:50 WBC 4.1 L D RBC 3.71 Hgb 7.0 L Hct 23.5 L MCV 63.3 L MCH 18.9 L MCHC 29.8 L RDW 20.4 H Plt Count 239 Gran % 40.9 L Lymph % (Auto) 34.5 Bartholomew % (Auto) 12.6 H Eos % (Auto) 10.8 H Baso % (Auto) 1.2 Gran # 1.66 Lymph # (Auto) 1.4 Bartholomew # (Auto) 0.5 Eos # (Auto) 0.4 Baso # (Auto) 0.05 PT INR Sodium 138 Potassium 3.6 Chloride 106 Carbon Dioxide 25 Anion Gap 10 BUN 8 Creatinine 0.6 L Est GFR ( Amer) > 60 Est GFR (Non-Af Amer) > 60 Random Glucose 90 Calcium 8.2 L Phosphorus 2.6 Magnesium 1.9 Total Bilirubin 0.5 GGT AST 43 ALT 25 Alkaline Phosphatase 208 H Total Protein 6.4 Albumin 2.8 L Globulin 3.6 Albumin/Globulin Ratio 0.8 L Blood Type AB POSITIVE Antibody Screen Negative BBK History Checked Patient has bt 04/30/18 04/30/18 07:00 07:00 WBC RBC Hgb Hct MCV MCH MCHC RDW Plt Count Gran % Lymph % (Auto) Bartholomew % (Auto) Eos % (Auto) Baso % (Auto) Gran # Lymph # (Auto) Bartholomew # (Auto) Eos # (Auto) Baso # (Auto) PT 14.1 H INR 1.22 Sodium Potassium Chloride Carbon Dioxide Anion Gap BUN Creatinine Est GFR ( Amer) Est GFR (Non-Af Amer) Random Glucose Calcium Phosphorus Magnesium Total Bilirubin GGT 264 H AST ALT Alkaline Phosphatase Total Protein Albumin Globulin Albumin/Globulin Ratio Blood Type Antibody Screen BBK History Checked Assessment & Plan - Assessment and Plan (Free Text) Assessment: 72M with history of decompensated alcoholic cirrhosis presenting with likely ascites fluid leak from surgical port. #Decompensated alcoholic cirrhosis - MELD 9, DF 7.9 #Ascites #Recent laproscopic procedure for hernia #COPD #Hx of esophageal varices - Banding 2017 #Hx of GI bleed #Chronic anemia PLAN: -Recommend requesting records for surgical procedure -Recommend dierutics to reduce ascites ascites -Recheck Hb and conservatively transfuse for Hb less than 7 in hx of varices. no signs of GI bleeding. Baseline is between 8-9. - Date & Time Date: 04/30/18 Time: 13:29 <Deyanira Oropeza V - Last Filed: 04/30/18 22:41> Meds - Medications Medications: Current Medications Acetaminophen (Tylenol 325mg Tab) 650 mg PO Q4H PRN PRN Reason: Fever >100.5 F Arformoterol Tartrate (Brovana) 15 mcg IH [id number] [facility] Last Admin: 04/30/18 20:15 Dose: 15 mcg Budesonide (Pulmicort Respules) 0.5 mg IH [id number] [facility] Last Admin: 04/30/18 20:15 Dose: 0.5 mg Dorzolamide/Timolol (Cosopt 2%-0.5% Opht) 1 drop OD BID [facility] Last Admin: 04/30/18 18:10 Dose: 1 drop Furosemide (Lasix) 20 mg PO DAILY [facility] Last Admin: 04/30/18 18:09 Dose: 20 mg Latanoprost (Xalatan Opht) 0 ml OD DAILY [facility] Last Admin: 04/30/18 10:54 Dose: 2.5 ml Nicotine (Nicoderm Cq) 1 patch TD DAILY [facility] Sertraline HCl (Zoloft) 25 mg PO DAILY [facility] Last Admin: 04/30/18 10:54 Dose: 25 mg Spironolactone (Aldactone) 50 mg PO DAILY [facility] Last Admin: 04/30/18 15:20 Dose: 50 mg Thiamine HCl (Vitamin B1 Tab) 100 mg PO DAILY [facility] Results - Vital Signs Recent Vital Signs: Last Vital Signs Temp 98.2 F 04/30/18 12:39 Pulse 88 04/30/18 20:15 Resp 18 04/30/18 12:39 BP 102/74 04/30/18 18:09 Pulse Ox 98 04/30/18 08:58 - Labs Result Diagrams: 04/30/18 06:00 04/30/18 06:45 Labs: Laboratory Results - last 24 hr 04/30/18 04/30/18 04/30/18 06:00 06:45 06:50 WBC 4.1 L D RBC 3.71 Hgb 7.0 L Hct 23.5 L MCV 63.3 L MCH 18.9 L MCHC 29.8 L RDW 20.4 H Plt Count 239 Gran % 40.9 L Lymph % (Auto) 34.5 Bartholomew % (Auto) 12.6 H Eos % (Auto) 10.8 H Baso % (Auto) 1.2 Gran # 1.66 Lymph # (Auto) 1.4 Bartholomew # (Auto) 0.5 Eos # (Auto) 0.4 Baso # (Auto) 0.05 PT INR Sodium 138 Potassium 3.6 Chloride 106 Carbon Dioxide 25 Anion Gap 10 BUN 8 Creatinine 0.6 L Est GFR ( Amer) > 60 Est GFR (Non-Af Amer) > 60 Random Glucose 90 Calcium 8.2 L Phosphorus 2.6 Magnesium 1.9 Total Bilirubin 0.5 GGT AST 43 ALT 25 Alkaline Phosphatase 208 H Total Protein 6.4 Albumin 2.8 L Globulin 3.6 Albumin/Globulin Ratio 0.8 L Blood Type AB POSITIVE Antibody Screen Negative BBK History Checked Patient has bt 04/30/18 04/30/18 07:00 07:00 WBC RBC Hgb Hct MCV MCH MCHC RDW Plt Count Gran % Lymph % (Auto) Bartholomew % (Auto) Eos % (Auto) Baso % (Auto) Gran # Lymph # (Auto) Bartholomew # (Auto) Eos # (Auto) Baso # (Auto) PT 14.1 H INR 1.22 Sodium Potassium Chloride Carbon Dioxide Anion Gap BUN Creatinine Est GFR ( Amer) Est GFR (Non-Af Amer) Random Glucose Calcium Phosphorus Magnesium Total Bilirubin GGT 264 H AST ALT Alkaline Phosphatase Total Protein Albumin Globulin Albumin/Globulin Ratio Blood Type Antibody Screen BBK History Checked Attending/Attestation - Attestation I have personally seen and examined this patient.: Yes I have fully participated in the care of the patient.: Yes I have reviewed all pertinent clinical information: Yes Notes (Text): This is an addendum to GI consult report dictated by the GI Fellow.The patient was seen and examined earlier. Medical records, lab studies, imagings were reviewed. Last 24 hours events reviewed. Agreed with the above treatment plan as outlined in GI Fellow 's notes with the addition of the following This patient with decompensated cirrhosis Status post hernia repair Small leak of ascitic fluid from the laparoscopic scar site closed by stitch CT scan was reviewed Large amount of stool present in the right side of the colon Will start the patient on aldactone Abdominal doppler to evaluate portal vein 04/30/18 22:37
--- NOTE | 2018-04-30 13:19 | CP.PCM.CON ---
<Canelo Gonzalez - Last Filed: 04/30/18 13:16> History of Present Illness - History of Present Illness History of Present Illness: General Surgery Note for This is a 72M who is s/p lap herniorraphy 2 weeks ago who presents due to a leaking of ascitic fluid from his left lateral port site. He denies any fevers chills chest pain SOB or abdominal pain. Review of Systems - Review of Systems All systems: reviewed and no additional remarkable complaints except Past Patient History - Infectious Disease Hx of Infectious Diseases: None - Tetanus Immunizations Tetanus Immunization: Unknown - Past Social History Smoking Status: Light Smoker < 10 Cigarettes Daily - CARDIAC Hx Cardiac Disorders: Yes Hx Hypercholesterolemia: Yes Hx Hypertension: Yes - PULMONARY Hx Respiratory Disorders: Yes Hx Asthma: Yes Hx Bronchitis: Yes Hx Chronic Obstructive Pulmonary Disease (COPD): Yes - NEUROLOGICAL Hx Neurological Disorder: Yes - HEENT Hx HEENT Problems: Yes (legally blind) Hx Blind: Yes Hx Cataracts: Yes (both eyes) Hx Deafness: Yes (left ear) Hx Glaucoma: Yes (b/l) Other/Comment: had sx ro right eye for cataract/glaucoma/retina sx then lost his vision, pt had sx to left eye for cataract/glaucoma then lost his vision, hx of left ear injury 2010, has hearing aids at home but doesn't use them because they give pt a "headache" - RENAL Hx Chronic Kidney Disease: No - ENDOCRINE/METABOLIC Hx Endocrine Disorders: No - HEMATOLOGICAL/ONCOLOGICAL Hx Blood Disorders: Yes (bloot transfusion 10/30/16) Hx Cirrhosis: Yes (alcoholic cirrhosis) Hx Hepatitis B: (pt denies) - INTEGUMENTARY Hx Dermatological Problems: Yes Other/Comment: ble skin discolorations, small openng left abd draining clear fluid covered with dressing, some clear drainage noted had r inguinal hernia repair 04/2018 about 3 weks ago, red raised rash to forehead and face - MUSCULOSKELETAL/RHEUMATOLOGICAL Hx Musculoskeletal Disorders: Yes Hx Arthritis: Yes Hx Falls: Yes Hx Fractures: Yes (left hip 10/2016) Hx Unsteady Gait: Yes (walker/cane) Other/Comment: left hip pain for last 3-4 months c/o hardware is bothering him making it difficult to walk - GASTROINTESTINAL Hx Gastrointestinal Disorders: Yes (weight loss, poor appetite) Hx Liver Failure: Yes (cirrhosis ascites) Other/Comment: GI Bleed; Esophageal varices, hemoptysis, nosebleed, egd 04/09/17 dx 1cm hiatal hernia, bleeding esophageal varices. pt unable to wear dentures because pt lost weight and the dentures don't fit - GENITOURINARY/GYNECOLOGICAL Hx Genitourinary Disorders: No - PSYCHIATRIC Hx Psychophysiologic Disorder: Yes Hx Depression: Yes Hx Psychosis: Yes Other/Comment: hx etoh quit drinking 5-7 yrs ago, smokes 7-10 cigs a day used to smoke 2-3 packs a day as per pt - SURGICAL HISTORY Hx Surgeries: Yes Hx Orthopedic Surgery: Yes (l hip fx sx 10/20/16) Other/Comment: us guided paracenthesis 06/23/14. hernia repair 04/2018 us guided paracenthesis 04/16/17 - ANESTHESIA Hx Anesthesia: Yes Hx Anesthesia Reactions: No Hx Malignant Hyperthermia: No Meds Allergies/Adverse Reactions: Allergies Allergy/AdvReac Type Severity Reaction Status Date / Time No Known Allergies Allergy Verified 04/18/17 13:39 - Medications Medications: Current Medications Acetaminophen (Tylenol 325mg Tab) 650 mg PO Q4H PRN PRN Reason: Fever >100.5 F Dorzolamide/Timolol (Cosopt 2%-0.5% Opht) 1 drop OD BID [facility] Last Admin: 04/30/18 10:55 Dose: 1 drop Latanoprost (Xalatan Opht) 0 ml OD DAILY [facility] Last Admin: 04/30/18 10:54 Dose: 2.5 ml Sertraline HCl (Zoloft) 25 mg PO DAILY [facility] Last Admin: 04/30/18 10:54 Dose: 25 mg Physical Exam - Constitutional Appears: Non-toxic - Eye Exam Eye Exam: EOMI - ENT Exam ENT Exam: Mucous Membranes Moist - Respiratory Exam Respiratory Exam: NORMAL BREATHING PATTERN - Cardiovascular Exam Cardiovascular Exam: +S1, +S2 - Rectal Exam Rectal Exam: NORMAL INSPECTION - Neurological Exam Neurological exam: Alert - Psychiatric Exam Psychiatric exam: Normal Affect, Normal Mood - Skin Skin Exam: Dry, Intact Results - Vital Signs Recent Vital Signs: Last Vital Signs Temp 98.2 F 04/30/18 08:58 Pulse 89 04/30/18 08:58 Resp 18 04/30/18 08:58 BP 97/61 L 04/30/18 08:12 Pulse Ox 98 04/30/18 08:58 - Labs Result Diagrams: 04/30/18 06:00 04/30/18 06:45 Labs: Laboratory Results - last 24 hr 04/30/18 04/30/18 04/30/18 06:00 06:45 06:50 WBC 4.1 L D RBC 3.71 Hgb 7.0 L Hct 23.5 L MCV 63.3 L MCH 18.9 L MCHC 29.8 L RDW 20.4 H Plt Count 239 Gran % 40.9 L Lymph % (Auto) 34.5 [place] % (Auto) 12.6 H Eos % (Auto) 10.8 H Baso % (Auto) 1.2 Gran # 1.66 Lymph # (Auto) 1.4 [place] # (Auto) 0.5 Eos # (Auto) 0.4 Baso # (Auto) 0.05 PT INR Sodium 138 Potassium 3.6 Chloride 106 Carbon Dioxide 25 Anion Gap 10 BUN 8 Creatinine 0.6 L Est GFR ( Amer) > 60 Est GFR (Non-Af Amer) > 60 Random Glucose 90 Calcium 8.2 L Phosphorus 2.6 Magnesium 1.9 Total Bilirubin 0.5 GGT AST 43 ALT 25 Alkaline Phosphatase 208 H Total Protein 6.4 Albumin 2.8 L Globulin 3.6 Albumin/Globulin Ratio 0.8 L Blood Type AB POSITIVE Antibody Screen Negative BBK History Checked Patient has bt 04/30/18 04/30/18 07:00 07:00 WBC RBC Hgb Hct MCV MCH MCHC RDW Plt Count Gran % Lymph % (Auto) [place] % (Auto) Eos % (Auto) Baso % (Auto) Gran # Lymph # (Auto) [place] # (Auto) Eos # (Auto) Baso # (Auto) PT 14.1 H INR 1.22 Sodium Potassium Chloride Carbon Dioxide Anion Gap BUN Creatinine Est GFR ( Amer) Est GFR (Non-Af Amer) Random Glucose Calcium Phosphorus Magnesium Total Bilirubin GGT 264 H AST ALT Alkaline Phosphatase Total Protein Albumin Globulin Albumin/Globulin Ratio Blood Type Antibody Screen BBK History Checked Assessment & Plan - Assessment and Plan (Free Text) Assessment: 72M with ascitis leaking from inscion After consent was signed and nurse Michell did a time out the abdomen was p repped and drapped in the usual fashion. Lidocaine was infiltrated surrounding the perious port site. A 0 silk suture was used and a purse string suture was placed. <Luke Herrera - Last Filed: 05/01/18 11:38> Meds - Medications Medications: Current Medications Acetaminophen (Tylenol 325mg Tab) 650 mg PO Q4H PRN PRN Reason: Fever >100.5 F Last Admin: 04/30/18 23:22 Dose: 650 mg Arformoterol Tartrate (Brovana) 15 mcg IH [id number] [facility] Last Admin: 05/01/18 07:24 Dose: 15 mcg Budesonide (Pulmicort Respules) 0.5 mg IH [id number] [facility] Last Admin: 05/01/18 07:24 Dose: 0.5 mg Dorzolamide/Timolol (Cosopt 2%-0.5% Opht) 1 drop OD BID [facility] Last Admin: 04/30/18 18:10 Dose: 1 drop Furosemide (Lasix) 20 mg PO DAILY [facility] Last Admin: 04/30/18 18:09 Dose: 20 mg Latanoprost (Xalatan Opht) 0 ml OD DAILY [facility] Last Admin: 04/30/18 10:54 Dose: 2.5 ml Nicotine (Nicoderm Cq) 1 patch TD DAILY [facility] Sertraline HCl (Zoloft) 25 mg PO DAILY [facility] Last Admin: 04/30/18 10:54 Dose: 25 mg Spironolactone (Aldactone) 50 mg PO DAILY [facility] Last Admin: 04/30/18 15:20 Dose: 50 mg Thiamine HCl (Vitamin B1 Tab) 100 mg PO DAILY [facility] Results - Vital Signs Recent Vital Signs: Last Vital Signs Temp 98.4 F 05/01/18 06:00 Pulse 81 05/01/18 06:00 Resp 18 05/01/18 06:00 BP 121/61 05/01/18 06:00 Pulse Ox 95 05/01/18 06:00 - Labs Result Diagrams: 04/30/18 06:00 04/30/18 06:45 Labs: Laboratory Results - last 24 hr 05/01/18 11:00 Fluid Source Peritoneal Assessment & Plan - Assessment and Plan (Free Text) Assessment: Pt had leaking port site(5mm) Rx pursestring suture-Needs paracentesis(Delmer consulted) This consult done under my direct supervision Yuliya Herrera MD FACS - Date & Time Date: 04/30/18 Time: 11:00
[2018-04-30] MEDS ORDERED: Influenza Vaccine 60 mcg/0.5 mL SYR (4YR UP) IM ONE (13:33)
[2018-04-30] MEDS ORDERED: Pneumococcal 23-Valent Vaccine IM ONE (13:33)
--- NOTE | 2018-04-30 17:03 | CON ---
DATE: 04/30/2018 PULMONARY CONSULTATION REFERRING PHYSICIAN: Evie Ponce MD REASON FOR CONSULTATION Cough, shortness of breath, chronic lung disease. HISTORY OF PRESENT ILLNESS: This is a 72 years old gentleman well known to me from previous admission, noncompliant with the followup medication, active smoker and drinks alcohol. Has a chronic obstructive lung disease, cirrhotic liver, hepatitis B, esophageal varices grade II, legally blind. Apparently had a hernia repair few weeks ago. Slowly developed ascites that start leaking ascitic fluid from one of the incision site, brought into emergency room. He was admitted, seen by surgical team and stitch was applied at that surgical site, hungry, wants to eat. No nausea, no vomiting. Does have a cough, some sputum production. No hemoptysis. No leg pain or leg swelling. PAST MEDICAL HISTORY: As per history of present illness. ALLERGIES: None known. SOCIAL HISTORY: He is active smoker and drinker. FAMILY HISTORY: No significant cardiopulmonary disease reported. MEDICATIONS: He is on Aldactone 50 mg daily, Lasix 20 mg daily, Tylenol p.r.n. basis, Zoloft 25 mg daily. REVIEW OF SYSTEMS: No headache. No rhinitis. Does have a cough, shortness of breath. No chest pain. No nausea, no vomiting. Has abdominal distention. Leakage of fluid from the incision site. No leg swelling. PHYSICAL EXAMINATION: GENERAL: In no acute distress. VITAL SIGNS: Temperature is 98, heart rate 89, respiratory rate is 20, blood pressure 97/61, pulse ox 98% on room air. HEENT: Moist mucous membranes. No ulcer or thrush noted. NECK: Supple. No JVD. LUNGS: Have scattered rhonchi and wheezing. HEART: S1 and S2. ABDOMEN: Has ascites and left upper quadrant has a surgical site with stitches been applied. No fluid leakage, but still have ascites. EXTREMITIES: There is no edema. NEUROLOGICAL: Awake and alert. Follows simple command. LABORATORY DATA AND IMAGING: Shows hemoglobin 7, hematocrit 23.5, WBC 4.1, platelet is 239. INR 1.2. Sodium 138, potassium 2.6, chloride 106, bicarbonate 25, BUN 8, creatinine 0.6, glucose 90, calcium 8.2, phosphorus 2.6, magnesium 1.9, total bili 0.5, GGT 264, AST 43, ALT 25, alk phos is 208. Albumin is 2.8. Has abdominal ultrasound done today which shows [id number] site is reiterated and cirrhotic liver again evident. Pancreas is obscured by overlying bowel gas. Complete likely gallbladder hydrops is manifested by mural edema. Cholelithiasis is identified in the lumen once again. Moderate ascites is noted. Had a chest x-ray done which is really unremarkable. No new changes. IMPRESSION AND PLAN: Chronic obstructive lung disease, cirrhotic liver, esophageal varices, anemia, status post hernia repair. Active smoker and alcohol user, history of hepatitis B. We will add inhaled bronchodilator. Keep head at 45 degrees. and marginal blood pressure. Cannot diurese much. Probably we will ask Dr. Juan Miguel Scott to do volume paracentesis. Will help to decrease distention of the surgical site to probably improve inhaling. May place Nicoderm patch. We will start him on thiamine. SCD to lower extremity. Gastric prophylaxis. The patient is to stop smoking and stop using excess alcohol. Thank you and we will follow with you. Theodore Atkins MD
[2018-04-30] MEDS: Budesonide 0.5 mg/2 ml Inhal Susp UD IH SCH (20:15)
[2018-04-30] MEDS: Arformoterol 15 mcg/2 ml Inh Sol IH SCH (20:15)
[2018-05-01] MEDS: Arformoterol 15 mcg/2 ml Inh Sol IH SCH ×2 (07:24→19:42)
[2018-05-01] MEDS: Budesonide 0.5 mg/2 ml Inhal Susp UD IH SCH ×2 (07:24→19:42)
--- NOTE | 2018-05-01 08:44 | CP.PCM.PN ---
<Lucas Mancia - Last Filed: 05/01/18 08:33> Subjective - Date & Time of Evaluation Date of Evaluation: 05/01/18 Time of Evaluation: 08:33 - Subjective Subjective: He had reinforced suture placed yesterday by surgical team. No drainage today appreciated. Patient is refusing labs. Nursing reports patient is making good urine. Still unclear if he was on diuretics in the past, but apparently he is very non- compliant. Objective - Vital Signs/Intake and Output Vital Signs (last 24 hours): Temp Pulse Resp BP Pulse Ox 98.2 F 88 18 102/74 98 04/30/18 12:39 04/30/18 20:15 04/30/18 12:39 04/30/18 18:09 04/30/18 08:58 Intake and Output: 05/01/18 05/01/18 06:59 18:59 Intake Total 280 Balance 280 - Medications Medications: Current Medications Acetaminophen (Tylenol 325mg Tab) 650 mg PO Q4H PRN PRN Reason: Fever >100.5 F Last Admin: 04/30/18 23:22 Dose: 650 mg Arformoterol Tartrate (Brovana) 15 mcg IH [id number] [facility] Last Admin: 05/01/18 07:24 Dose: 15 mcg Budesonide (Pulmicort Respules) 0.5 mg IH [id number] [facility] Last Admin: 05/01/18 07:24 Dose: 0.5 mg Dorzolamide/Timolol (Cosopt 2%-0.5% Opht) 1 drop OD BID [facility] Last Admin: 04/30/18 18:10 Dose: 1 drop Furosemide (Lasix) 20 mg PO DAILY [facility] Last Admin: 04/30/18 18:09 Dose: 20 mg Latanoprost (Xalatan Opht) 0 ml OD DAILY [facility] Last Admin: 04/30/18 10:54 Dose: 2.5 ml Nicotine (Nicoderm Cq) 1 patch TD DAILY [facility] Sertraline HCl (Zoloft) 25 mg PO DAILY [facility] Last Admin: 04/30/18 10:54 Dose: 25 mg Spironolactone (Aldactone) 50 mg PO DAILY [facility] Last Admin: 04/30/18 15:20 Dose: 50 mg Thiamine HCl (Vitamin B1 Tab) 100 mg PO DAILY [facility] - Labs Labs: 04/30/18 06:00 09/26/18 06:45 PT 14.1 SECONDS (9.4-12.5) H 04/30/18 07:00 INR 1.22 04/30/18 07:00 - Constitutional Appears: Non-toxic, No Acute Distress, Chronically Ill - Head Exam Head Exam: NORMAL INSPECTION - Eye Exam Eye Exam: EOMI, Normal appearance - ENT Exam ENT Exam: Mucous Membranes Moist - Respiratory Exam Respiratory Exam: Clear to Ausculation Bilateral, Prolonged Expiratory Phase, W heezes, NORMAL BREATHING PATTERN - Cardiovascular Exam Cardiovascular Exam: REGULAR RHYTHM, +S1, +S2 - GI/Abdominal Exam GI & Abdominal Exam: Distended, Firm, Normal Bowel Sounds. absent: Tenderness - Extremities Exam Extremities Exam: Normal Inspection - Neurological Exam Neurological Exam: Alert, Awake - Psychiatric Exam Psychiatric exam: Anxious, Normal Mood - Skin Skin Exam: Dry, Normal Color Assessment and Plan - Assessment and Plan (Free Text) Assessment: 72M with history of decompensated alcoholic cirrhosis presenting with likely ascites fluid leak from surgical port site. #Non-compliance with care #Decompensated alcoholic cirrhosis - MELD 9, DF 7.9 #Ascites #Recent laproscopic procedure for hernia #COPD #Hx of esophageal varices - Banding 2017 #Hx of GI bleed #Chronic anemia PLAN: -Recommend requesting records for surgical procedure -Recommend diuretics to reduce ascites. I have him on a relatively low dose. Patient is refusing labs so may need to discontinue as we cannot monitor kidney function, K. -Hopefully primary has records if he was ever on diuretics -Patient to have paracentesis for tense ascites per nursing staff -Recheck Hb and conservatively transfuse for Hb less than 7 in hx of varices. no signs of GI bleeding. Baseline is between 8-9. <Sandip,Kovil V - Last Filed: 05/01/18 23:52> Objective - Vital Signs/Intake and Output Vital Signs (last 24 hours): Temp Pulse Resp BP Pulse Ox 97.5 F L 78 18 119/67 91 L 05/01/18 23:34 05/01/18 23:34 05/01/18 23:34 05/01/18 23:34 05/01/18 23:13 Intake and Output: 05/01/18 05/02/18 18:59 06:59 Intake Total 0 Balance 0 - Medications Medications: Current Medications Acetaminophen (Tylenol 325mg Tab) 650 mg PO Q4H PRN PRN Reason: Fever >100.5 F Last Admin: 04/30/18 23:22 Dose: 650 mg Arformoterol Tartrate (Brovana) 15 mcg IH [id number] [facility] Last Admin: 05/01/18 19:42 Dose: 15 mcg Budesonide (Pulmicort Respules) 0.5 mg IH [id number] [facility] Last Admin: 05/01/18 19:42 Dose: 0.5 mg Dorzolamide/Timolol (Cosopt 2%-0.5% Opht) 1 drop OD BID [facility] Last Admin: 05/01/18 18:24 Dose: 1 drop Furosemide (Lasix) 20 mg PO DAILY [facility] Last Admin: 05/01/18 12:04 Dose: 20 mg Latanoprost (Xalatan Opht) 0 ml OD DAILY [facility] Last Admin: 05/01/18 12:05 Dose: 2.5 ml Nicotine (Nicoderm Cq) 1 patch TD DAILY [facility] Last Admin: 05/01/18 12:04 Dose: 1 patch Sertraline HCl (Zoloft) 25 mg PO DAILY [facility] Last Admin: 05/01/18 12:04 Dose: 25 mg Spironolactone (Aldactone) 50 mg PO DAILY [facility] Last Admin: 05/01/18 12:02 Dose: 50 mg Thiamine HCl (Vitamin B1 Tab) 100 mg PO DAILY [facility] Last Admin: 05/01/18 12:04 Dose: 100 mg - Labs Labs: 05/01/18 20:20 05/01/18 20:20 PT 14.1 SECONDS (9.4-12.5) H 04/30/18 07:00 INR 1.22 04/30/18 07:00 Attending/Attestation - Attestation I have personally seen and examined this patient.: Yes I have fully participated in the care of the patient.: Yes I have reviewed all pertinent clinical information, including history, physical exam and plan: Yes Notes (Text): This is an addendum to GI progress report dictated by the GI Fellow.The patient was seen and examined earlier. Medical records, lab studies, imagings were reviewed. Last 24 hours events reviewed. Agreed with the above treatment plan as outlined in GI Fellow 's notes with the addition of the following This patient with a decompensated cirrhosis secondary to alcohol Poor visual acuity Ascitis Has leak from the laparoscopic trocar drainage Status post sucturing Originally planned to start the patient on diuretics but patient is refusing blood test Would cancel the diuretics as the patient is non compliant with blood work Will discuss with Dr. Ponce 05/01/18 23:48
[2018-05-01 11:35] LABS: BODY FLUID TYPE PERITONEAL
[2018-05-01 11:56] LABS: BF GROSS APPEARANCE BLOODY (CLEAR)
[2018-05-01 11:58] LABS: BODY FLUID TOTAL COUNT 100 (0-0)
[2018-05-01] MEDS: Dorzolamide 2%/Timolol 0.5% 100 DROP/10 ML BOTTLE OD SCH ×2 (12:03→18:24)
[2018-05-01] MEDS: Latanoprost 2.5 ml Opht Soln OD SCH (12:05)
--- NOTE | 2018-05-01 15:00 | US ---
PROCEDURE: Ultrasound guided paracentesis. HISTORY: Alcoholic cirrhosis Recurrent ascites with abdominal pain and distension. PHYSICIAN(S): Juan Miguel Scott MD. TECHNIQUE: The relative risks and indications for the procedure were explained to the patient and informed written consent obtained. Sonography of the abdomen was performed in a supine position. This revealed a moderate amount of non-loculated ascites, greatest in the right lower quadrant. A puncture site was selected and the area was prepped and draped in the usual sterile fashion. 1% Xylocaine was used to anesthetize the skin and soft tissues. A 7 Green[place]ic paracentesis catheter was trocared into the right lower quadrantand 1200 cc of peggy fluid aspirated. The appropriate labs were sent. IMPRESSION: Ultrasound-guided paracentesis in the right lower quadrant. 1200 cc of fluid were aspirated. Labs were sent
--- NOTE | 2018-05-01 15:48 | HP ---
The patient was seen and examined at bedside in his room on 04/30/2018. CHIEF COMPLAINT: Abdominal pain, shortness of breath, leakage of water from the abdomen. HISTORY OF PRESENT ILLNESS: Mr. Esteban Carrion is a 72-year-old male whose past medical history is he has liver cirrhosis, drinking, COPD, GI blood loss, esophageal varices, came for fluid leaking from the surgical wound from a laparoscopic hernia repair done three weeks ago in [place]. The patient was seen by the surgeon yesterday. The patient denies any fevers or chills. No chest pain. Sometimes, he is getting shortness of breath and abdominal pain. No nausea, vomiting, diarrhea. No hematuria, hematochezia. No back pain, no neck pain, no headache, no dizziness. PAST MEDICAL HISTORY: Hypertension, asthma, COPD, history of CVA. Patient is legally blind. History of cataract, deafness, glaucoma, cirrhosis of the liver, arthritis, unsteady gait, history of esophageal varices bleeding, depression, psychosis, hip surgery, multiple times ultra sound guided paracentesis, hernia repair. FAMILY HISTORY: Father and mother, noncontributory. HABITS: History of smoking. Alcohol, yes. Substance abuse, no. ALLERGIES: PATIENT IS NOT ALLERGIC WITH ANY MEDICATION. HOME MEDICATIONS: Zoloft, eye drops. REVIEW OF SYSTEMS: Having clear liquid drainage from surgical incision that occurred three weeks ago. No constipation, diarrhea, nausea, vomiting. No fever, no chills. Sometimes coughing. No chest pain, palpitations or edema. No hematuria or hematochezia. PHYSICAL EXAMINATION: VITAL SIGNS: Temperature 98.5, pulse 96, respiratory rate 18, blood pressure 112/62, pulse oxymetry 100. HEENT: Head normocephalic, atraumatic. Eyes PERRLA. Extraocular muscles intact. Conjunctivae clear. Nose patent. Mucous membranes moist. NECK: Supple. No carotid bruits, no JVD, no thyromegaly. CHEST: Bilaterally symmetrical. HEART: S1, S2 positive. LUNGS: Clear to auscultation. ABDOMEN: Soft. Bowel sounds present. No organomegaly. There is leakage of clear liquid from incision site of abdominal wall surgery. EXTREMITIES: No edema, no cyanosis. NEUROLOGIC: Patient is awake and alert. Moving all 4 extremities. No focal deficits. LABORATORY DATA: White blood cell 4.1, hemoglobin 7, hematocrit 23.7, platelets 231. Sodium 138, potassium 3.6, BUN 8, creatinine 0.6, glucose 90. ASSESSMENT AND PLAN: Mr. Esteban Carrion is a 72-year-old male with leukopenia, anemia, history of chronic obstructive lung disease, asthma, cirrhotic liver, esophageal varices, status post hernia repair, active smoker and alcohol abuser, history of hepatitis B. Dr. Atkins started inhaled bronchodilators. Dr. Juan Miguel Scott consult called for paracentesis, so distention of the abdomen will get better, so surgical site can get healed. Nicotine patch given. SCDs to lower extremity, gastric prophylaxis, urged to quit smoking and drinking. Length of time discussion done with Dr. Herrera. He put a pressure dressing on the leaking site. Abdominal ultrasound is done, shows [id number] ascites , chronic liver again evident, pancreas is obscured by overlying bowel gas completely, likely gallbladder hydrops is manifested by mural edema, cholelithiasis identified in the lumen once again. No biliary tree dilatation or choledocholithiasis identified, [id number] ascites. We will observe H and H because hemoglobin is dropping. GI and DVT prophylaxes, repeat labs. We will follow up. Evie Ponce MD MTDD
--- NOTE | 2018-05-01 20:07 | PN ---
DATE: 05/01/2018 PULMONARY PROGRESS NOTE REFERRING PHYSICIAN: Evie Ponce MD SUBJECTIVE Sitting at side of the bed, having dinner, feels much better, status post paracentesis with removal of 1200 mL of fluid. No headache, no rhinitis, no nausea. No more fluid leakage from the incision site. No leg swelling. OBJECTIVE: GENERAL: In no acute distress. VITAL SIGNS: Temperature is 98, heart rate 77, respiratory rate 16, blood pressure 106/55, pulse ox 96% on room air. HEENT: Moist mucous membrane. Small oral cavity. NECK: Supple. No JVD. LUNGS: Fair airflow with rhonchi. HEART: S1 and S2. ABDOMEN: Soft, nontender. No fluid leak from the incision site. EXTREMITIES: There is no edema. NEUROLOGIC: Awake, alert, follows simple commands, very hard of hearing. MEDICATIONS: He is on Aldactone 50 mg daily, Brovana inhaled twice a day, Lasix 20 mg daily, NicoDerm patch daily, Pulmicort inhaled twice a day, Tylenol p.r.n., vitamin B 100 mg daily, Zoloft 25 mg daily. LABORATORY DATA: Reviewed. Pleural fluid has wbc 385, rbc 36,000, total cell count is 100. Microbiology: Ascitic fluid, there was no growth so far. Blood culture has been negative. IMPRESSION AND PLAN: Chronic obstructive lung disease, cirrhotic liver, esophageal varices, anemia, status post hernia repair with recurrent ascites, has a leakage ascitic fluid from the incision site, history of hepatitis B, alcohol abuse, history of left hip replacement. After thoracentesis, he feels better. Breathing is okay. Continue bronchodilator. Keep head at 45 degrees. NicoDerm patch. We will get a left hip x-ray to assure the stability of the hardware. Thank you and we will follow with you. Theodore Atkins MD
[2018-05-01 20:44] LABS: MEAN CELL VOLUME 62.7 fl (80.0-105.0); MEAN CORPUSCULAR HEMOGLOBIN 18.6 pg (25.0-35.0); MEAN CORPUSCULAR HGB CONC 29.7 g/dl (31.0-37.0); PLATELET COUNT 237 10^3/uL (120.0-450.0); RBC 3.65 10^6/uL (3.5-6.1); RED CELL DISTRIBUTION WIDTH 20.2 % (11.5-14.5); WHITE BLOOD COUNT 6.1 10^3/ul (4.5-11.0)
[2018-05-01 20:49] LABS: HEMOGLOBIN 6.8 g/dL (14.0-18.0)
[2018-05-01 21:00] LABS: BLOOD UREA NITROGEN 15 mg/dL (7-21); CALCIUM 7.9 mg/dL (8.4-10.5); GFR NON-AFRICAN AMERICAN > 60
--- NOTE | 2018-05-02 03:43 | PN ---
DATE: 05/01/2018 SUBJECTIVE: The patient was seen and examined on the bedside on 05/01/2018. The patient is looking comfortable. Happy that paracentesis done and his abdomen tightness is better, but complaining about hip pain and back pain. Feeling fatigue and tired. Today whole day, the patient refuses blood test, but I convinced the patient and he agreed for blood test. PHYSICAL EXAMINATION: VITAL SIGNS: Temperature 98, heart rate 77, respiratory rate 16, blood pressure 106/55, pulse oximetry 96% on room air. HEENT: Head normocephalic, atraumatic. Eyes; PERRLA. Extraocular muscles intact. Conjunctivae clear. Nose patent. Mucous membrane moist. NECK: Supple. No carotid bruit. No JVD or thyromegaly. CHEST: Bilaterally symmetrical. HEART: S1 and S2 positive. LUNGS: Clear to auscultation. ABDOMEN: Soft. Bowel sounds positive. No organomegaly. EXTREMITIES: No edema. No cyanosis. NEUROLOGICAL: The patient is awake and alert. Moving all 4 extremities. No focal deficits. MEDICATIONS: Aldactone, Brovana, Lasix, Nicoderm patch, Pulmicort, vitamin B12, Zoloft. LABORATORY DATA: We did least labs. White blood cells 6.1, hemoglobin 6.8, hematocrit 22.9, platelets 232. Sodium 136, potassium 4, BUN 15, creatinine 0.8, calcium is 7.9. ASSESSMENT AND PLAN: Mr. Esteban Carrion, 72-year-old male with history of leukopenia, anemia. Ordered type and crossmatch. Two units packed RBC has transfused. History of hypocalcemia, we will replace. Abnormal liver function test, cirrhosis of the liver, ascites, paracentesis done by Dr. Juan Miguel Scott. History of chronic obstructive lung disease, esophageal varices, history of variceal bleeding, status post hernia repair with recurrent ascites, has leakage of ascitic fluid from the incisional site. Pressure dressing was done by Dr. Herrera. History of hepatitis B, alcohol abuse, history of left hip replacement. Wheezing getting better after paracentesis. Continue bronchodilators, Nicoderm patch. Dr. Atkins ordered x-ray of the left hip to assure stability of the hardware. We will arrange blood transfusion. Length of time discussion done. The patient needs physical therapy. He is deconditioned. We will follow up. Evie Ponce MD
[2018-05-02 07:17] LABS: MEAN CELL VOLUME 68.1 fl (80.0-105.0); MEAN CORPUSCULAR HEMOGLOBIN 21.7 pg (25.0-35.0); MEAN CORPUSCULAR HGB CONC 31.8 g/dl (31.0-37.0); PLATELET COUNT 200 10^3/uL (120.0-450.0); RBC 4.61 10^6/uL (3.5-6.1); RED CELL DISTRIBUTION WIDTH 23.5 % (11.5-14.5); WHITE BLOOD COUNT 7.5 10^3/ul (4.5-11.0)
[2018-05-02 07:26] LABS: BLOOD UREA NITROGEN 14 mg/dL (7-21); GFR NON-AFRICAN AMERICAN > 60; HDL CHOLESTEROL 29 mg/dL (29-60)
[2018-05-02 07:27] LABS: IRON 225 ug/dL (45-180)
[2018-05-02 07:37] LABS: % IRON SATURATION 56 % (20-55); LDL CHOLESTEROL 72 mg/dL (0-129); TOTAL IRON BINDING CAPACITY 402 ug/dL (261-462)
[2018-05-02] MEDS: Budesonide 0.5 mg/2 ml Inhal Susp UD IH SCH ×2 (07:41→20:48)
[2018-05-02] MEDS: Arformoterol 15 mcg/2 ml Inh Sol IH SCH ×2 (07:41→20:48)
--- NOTE | 2018-05-02 07:44 | CP.PCM.PCO ---
Physician Communication Note - Physician Communication Note Physician Communication Note: No more leakage/HgB 10p Tx 2uprbc
--- NOTE | 2018-05-02 09:58 | CP.PCM.PN ---
<Lucas Mancia - Last Filed: 05/02/18 17:53> Subjective - Date & Time of Evaluation Date of Evaluation: 05/02/18 Time of Evaluation: 09:55 - Subjective Subjective: No complaints. s/p paracentesis 1200cc peggy fluid. Objective - Vital Signs/Intake and Output Vital Signs (last 24 hours): Temp Pulse Resp BP Pulse Ox 98.5 F 75 18 131/66 93 L 05/02/18 06:00 05/02/18 06:00 05/02/18 06:00 05/02/18 06:00 05/02/18 06:00 Intake and Output: 05/02/18 05/02/18 06:59 18:59 Intake Total 20 Balance 20 - Medications Medications: Current Medications Acetaminophen (Tylenol 325mg Tab) 650 mg PO Q4H PRN PRN Reason: Fever >100.5 F Last Admin: 04/30/18 23:22 Dose: 650 mg Arformoterol Tartrate (Brovana) 15 mcg [facility] [id number] [facility] Last Admin: 05/02/18 07:41 Dose: 15 mcg Budesonide (Pulmicort Respules) 0.5 mg IH [id number] [facility] Last Admin: 05/02/18 07:41 Dose: 0.5 mg Calcium/Vitamin D (Oscal-D 250 Mg-125 Units Tab) 1 tab PO DAILY [facility] Dorzolamide/Timolol (Cosopt 2%-0.5% Opht) 1 drop OD BID [facility] Last Admin: 05/01/18 18:24 Dose: 1 drop Furosemide (Lasix) 20 mg PO DAILY [facility] Last Admin: 05/01/18 12:04 Dose: 20 mg Latanoprost (Xalatan Opht) 0 ml OD DAILY [facility] Last Admin: 05/01/18 12:05 Dose: 2.5 ml Nicotine (Nicoderm Cq) 1 patch TD DAILY [facility] Last Admin: 05/01/18 12:04 Dose: 1 patch Sertraline HCl (Zoloft) 25 mg PO DAILY [facility] Last Admin: 05/01/18 12:04 Dose: 25 mg Spironolactone (Aldactone) 50 mg PO DAILY [facility] Last Admin: 05/01/18 12:02 Dose: 50 mg Thiamine HCl (Vitamin B1 Tab) 100 mg PO DAILY [facility] Last Admin: 05/01/18 12:04 Dose: 100 mg - Labs Labs: 05/02/18 06:30 05/02/18 06:30 PT 14.1 SECONDS (9.4-12.5) H 04/30/18 07:00 INR 1.22 04/30/18 07:00 - Constitutional Appears: Non-toxic, No Acute Distress, Cachectic, Chronically Ill - Head Exam Head Exam: NORMAL INSPECTION - Eye Exam Eye Exam: EOMI, Normal appearance - ENT Exam ENT Exam: Mucous Membranes Moist, Normal Exam - Respiratory Exam Respiratory Exam: Clear to Ausculation Bilateral, NORMAL BREATHING PATTERN - Cardiovascular Exam Cardiovascular Exam: REGULAR RHYTHM, +S1, +S2 - GI/Abdominal Exam GI & Abdominal Exam: Soft, Normal Bowel Sounds. absent: Distended, Tenderness - Neurological Exam Neurological Exam: Alert, Awake - Psychiatric Exam Psychiatric exam: Normal Affect, Normal Mood - Skin Skin Exam: Dry, Intact Assessment and Plan - Assessment and Plan (Free Text) Assessment: 72M with history of decompensated alcoholic cirrhosis presenting with likely ascites fluid leak from surgical port site. #Non-compliance with care #Decompensated alcoholic cirrhosis - MELD 9, DF 7.9 #Ascites #Recent laproscopic procedure for hernia #COPD #Hx of esophageal varices - Banding 2016 #Hx of GI bleed #Chronic anemia PLAN: -s/p 2u pRBC transfused -S/p paracentesis, 1200cc, peggy fluid. -Recommend requesting records for surgical procedure -Recommend diuretics to reduce ascites. I have him on a relatively low dose. He should have labs drawn to evaluate Cr, K. This does not have to be daily. -Recheck Hb and conservatively transfuse for Hb less than 7 in hx of varices. no signs of GI bleeding. Baseline is between 8-9. <Sandip,Kovil V - Last Filed: 05/03/18 23:18> Objective - Vital Signs/Intake and Output Vital Signs (last 24 hours): Temp Pulse Resp BP Pulse Ox 98.1 F 74 18 120/62 96 05/03/18 14:59 05/03/18 14:59 05/03/18 14:59 05/03/18 14:59 05/03/18 14:59 Intake and Output: 05/03/18 05/04/18 18:59 06:59 Intake Total 360 Output Total 600 Balance -240 - Labs Labs: 05/02/18 06:30 05/02/18 06:30 PT 14.1 SECONDS (9.4-12.5) H 04/30/18 07:00 INR 1.22 04/30/18 07:00 Attending/Attestation - Attestation I have personally seen and examined this patient.: Yes I have fully participated in the care of the patient.: Yes I have reviewed all pertinent clinical information, including history, physical exam and plan: Yes Notes (Text): This is an addendum to GI progress report dictated by the GI Fellow.The patient was seen and examined earlier. Medical records, lab studies, imagings were reviewed. Last 24 hours events reviewed. Agreed with the above treatment plan as outlined in GI Fellow 's notes with the addition of the following Extremely non compliant patient Now on ascitis Started the patient on diuretics Followup electrolytes Non-compliant patient Explained the patient at length the need for followup for bloodtests while on the diuretics Discussed with Dr. Ponce 05/03/18 23:16
[2018-05-02] MEDS: Latanoprost 2.5 ml Opht Soln OD SCH (10:18)
[2018-05-02] MEDS: Dorzolamide 2%/Timolol 0.5% 100 DROP/10 ML BOTTLE OD SCH ×2 (10:18→17:42)
[2018-05-02] MEDS: Calcium-Vit D 250 mg-125 Units Tab UD PO SCH (10:19)
--- NOTE | 2018-05-02 12:11 | RAD ---
PROCEDURE: Left Hip X-ray Radiographs. HISTORY: pain COMPARISON: CT scan of the abdomen pelvis dated 01/15/2018 FINDINGS: BONES: Left hip intramedullary deandre and screw redemonstrated. No acute fracture. JOINTS: Bilateral hip narrowing. SOFT TISSUES: Normal. OTHER FINDINGS: None. IMPRESSION: Left hip orthopedic hardware redemonstrated. No evidence of component loosening or periprosthetic fracture. Degenerative changes
[2018-05-02 12:59] LABS: FOLATE 8.8 ng/mL
--- NOTE | 2018-05-02 23:01 | PN ---
DATE: 05/02/2018 PULMONARY PROGRESS NOTE REFERRING PHYSICIAN: Evie Ponce MD. SUBJECTIVE: He is lying in the bed. Daughter is at bedside. Feels better. No headache, no rhinitis. No chest pain. Still has abdominal incision site some discomfort. No leg pain or leg swelling. PHYSICAL EXAMINATION: GENERAL: In no acute distress. VITAL SIGNS: Temperature is 98, heart rate is 76, respiratory rate is 18, blood pressure 137/70, pulse ox 96% on room air. HEENT: Moist mucous membranes. Small oral cavity. NECK: Supple. No JVD. LUNGS: Have a few scattered rhonchi. HEART: S1 and S2. ABDOMEN: Soft, still has ascites. Left upper mid quadrant has an incision site with dressing. EXTREMITIES: No edema. NEUROLOGIC: Awake, alert, and follows simple command. He is very hard of hearing. MEDICATIONS: He is on Aldactone 50 mg daily, Brovana inhaled twice a day, Lasix 20 mg daily, Nicoderm patch daily, vitamin D one tab daily, budesonide inhaled twice a day, Tylenol p.r.n. basis, vitamin B1 100 mg daily, and Zoloft 25 mg daily. LABORATORY DATA: Shows hemoglobin 10, hematocrit 31.4, WBC 7.5, platelet is 200. Sodium 137, potassium 4, chloride 109, bicarbonate 23, BUN 14, creatinine 0.6, calcium is 8. Hemoglobin A1c 5.3. Iron is 225. GGT 264. Cholesterol is 124. Left hip x-ray, prosthesis looks okay. Has some degenerative changes, otherwise unremarkable. IMPRESSION AND PLAN: Chronic obstructive lung disease, cirrhotic liver, esophageal varices, anemia, status post hernia repair, recurrent ascites requiring a paracentesis. Clinically, he feels better. Spoke to daughter at bedside. All the questions answered. Continue bronchodilator. Keep head at 45 degrees. Continue diuretics, Nicoderm patch. Out of bed to chair. May need influenza injection before discharge. Thank you and we will follow with you. Theodore Atkins MD
--- NOTE | 2018-05-03 04:45 | PN ---
DATE: 05/02/2018 SUBJECTIVE: The patient is a 72-year-old male. Patient was seen and examined at the bedside on 05/02/2018. Looking comfortable. No hematuria or hematochezia. Abdominal pressure is less. Status post thoracentesis, 1200 mL peggy fluid was taken out by Dr. Juan Miguel Scott. No headache. No dizziness. No fever. No chills. Had bowel movement. Eating very well. PHYSICAL EXAMINATION: VITAL SIGNS: Temperature 98.5, pulse 75, respiratory rate 18, blood pressure 130/66, pulse oximetry 92%. HEENT: Head: Normocephalic, atraumatic. Eyes: PERRLA. Extraocular muscles intact. Conjunctivae clear. Nose patent. NECK: Supple. No carotid bruit, JVD or thyromegaly. CHEST: Bilaterally symmetrical. HEART: S1 and S2 positive. LUNGS: Clear to auscultation. ABDOMEN: Soft. Bowel sounds positive. No organomegaly. EXTREMITIES: No edema. No cyanosis. NEUROLOGIC: Patient is awake and alert. Moving all 4 extremities. No focal deficit. MEDICATIONS: Brovana, Pulmicort, calcium, Lasix, Nicoderm patch, Zoloft, Aldactone, thiamine. LABORATORY DATA: White blood cells 7.5, hemoglobin 10, hematocrit 31.4, platelet is 200. Sodium 137, potassium 4, BUN 14, creatinine 0.6, glucose 81. ASSESSMENT AND PLAN: Mr. Esteban Carrion is a 72-year-old male with anemia, hyperchloremia, came in with decompensated alcoholic cirrhosis, re-presenting with ascitic fluid leakage from the surgical port site, noncompliant with care, he had ascites, recent laparoscopic procedure for hernia repair done in [place], chronic obstructive pulmonary disease exacerbation, history of esophageal varices, banding was done in 2017, history of gastrointestinal bleeding, chronic anemia, history of replacement. X-ray of the hip was reviewed by me, hardware is at place, looks like degenerative joint disease, anemia - status post 2 units of packed red blood cell transfusion, paracentesis - removal of 1200 mL peggy fluid. Surgery and GI recommended diuretics to reduce the ascites, started at a relatively low dose, actually patient is noncompliant , it affecting balance. He should have labs drawn to evaluate his creatinine in case. History of varices. No signs of gastrointestinal bleeding right now. Hemoglobin is baseline. Repeat labs. Appreciated all technical sales consultant notes. We will follow up. Evie Ponce MD [email or web address]
[2018-05-03 08:14] VITALS: RESP 18
[2018-05-03] MEDS: Arformoterol 15 mcg/2 ml Inh Sol IH SCH (09:54)
[2018-05-03] MEDS: Budesonide 0.5 mg/2 ml Inhal Susp UD IH SCH (09:54)
[2018-05-03] MEDS: Latanoprost 2.5 ml Opht Soln OD SCH (10:55)
[2018-05-03] MEDS: Dorzolamide 2%/Timolol 0.5% 100 DROP/10 ML BOTTLE OD SCH (10:55)
[2018-05-03] MEDS: Calcium-Vit D 250 mg-125 Units Tab UD PO SCH (10:55)
[2018-05-03] MEDS ORDERED: DiphenhydrAMINE 50 mg/ml Inj IVP ONE (14:12)
--- NOTE | 2018-05-03 14:22 | CP.PCM.PN ---
<Amanda Davis - Last Filed: 05/03/18 14:22> Subjective - Date & Time of Evaluation Date of Evaluation: 05/03/18 Time of Evaluation: 08:20 - Subjective Subjective: PGY5 GI Follow-up Pt seen and examined bedside denies any abd pain, tolerating diet s/p 2 units transfusion ROS: 12 point ROS conducted neg other than above Objective - Vital Signs/Intake and Output Vital Signs (last 24 hours): Temp Pulse Resp BP Pulse Ox 98.6 F 73 18 122/64 98 05/03/18 06:00 05/03/18 06:00 05/03/18 06:00 05/03/18 10:56 05/03/18 06:00 Intake and Output: 05/03/18 05/03/18 06:59 18:59 Intake Total 180 Output Total 2 Balance 178 - Medications Medications: Current Medications Acetaminophen (Tylenol 325mg Tab) 650 mg PO Q4H PRN PRN Reason: Fever >100.5 F Last Admin: 04/30/18 23:22 Dose: 650 mg Arformoterol Tartrate (Brovana) 15 mcg IH [id number] [facility] Last Admin: 05/03/18 09:54 Dose: 15 mcg Budesonide (Pulmicort Respules) 0.5 mg IH [id number] [facility] Last Admin: 05/03/18 09:54 Dose: 0.5 mg Calcium/Vitamin D (Oscal-D 250 Mg-125 Units Tab) 1 tab PO DAILY [facility] Last Admin: 05/03/18 10:55 Dose: 1 tab Dorzolamide/Timolol (Cosopt 2%-0.5% Opht) 1 drop OD BID [facility] Last Admin: 05/03/18 10:55 Dose: 1 drop Furosemide (Lasix) 20 mg PO DAILY [facility] Last Admin: 05/03/18 10:56 Dose: 20 mg Latanoprost (Xalatan Opht) 0 ml OD DAILY [facility] Last Admin: 05/03/18 10:55 Dose: 2.5 ml Nicotine (Nicoderm Cq) 1 patch TD DAILY [facility] Last Admin: 05/03/18 10:55 Dose: 1 patch Sertraline HCl (Zoloft) 25 mg PO DAILY [facility] Last Admin: 05/03/18 10:55 Dose: 25 mg Spironolactone (Aldactone) 50 mg PO DAILY [facility] Last Admin: 05/03/18 10:55 Dose: 50 mg Thiamine HCl (Vitamin B1 Tab) 100 mg PO DAILY [facility] Last Admin: 05/03/18 10:55 Dose: 100 mg - Labs Labs: 05/02/18 06:30 05/02/18 06:30 PT 14.1 SECONDS (9.4-12.5) H 04/30/18 07:00 INR 1.22 04/30/18 07:00 - Constitutional Appears: Well, No Acute Distress - Head Exam Head Exam: ATRAUMATIC, NORMOCEPHALIC - Eye Exam Eye Exam: Normal appearance - ENT Exam ENT Exam: Mucous Membranes Moist, Normal Exam - Neck Exam Neck Exam: Normal Inspection - Respiratory Exam Respiratory Exam: Clear to Ausculation Bilateral, NORMAL BREATHING PATTERN. absent: Rales, Rhonchi, Wheezes, Respiratory Distress - Cardiovascular Exam Cardiovascular Exam: REGULAR RHYTHM, +S1, +S2 - GI/Abdominal Exam GI & Abdominal Exam: Soft, Normal Bowel Sounds. absent: Firm, Guarding, Rigid, Tenderness, Organomegaly - Extremities Exam Extremities Exam: absent: Joint Swelling, Pedal Edema - Neurological Exam Neurological Exam: Alert, Awake, Oriented x3 - Psychiatric Exam Psychiatric exam: Normal Affect, Normal Mood - Skin Skin Exam: Dry, Intact, Normal Color, Warm Assessment and Plan - Assessment and Plan (Free Text) Assessment: 72M with history of decompensated alcoholic cirrhosis presenting with likely ascites fluid leak from surgical port site. #Non-compliance with care #Decompensated alcoholic cirrhosis - MELD 9, DF 7.9 #Ascites #Recent laproscopic procedure for hernia #COPD #Hx of esophageal varices - Banding 2017 #Hx of GI bleed #Chronic anemia PLAN: -s/p 2u pRBC transfused, repeat hgb ~10 -S/p paracentesis, 1200cc, peggy fluid. -Recommend requesting records for surgical procedure -Recommend diuretics to reduce ascites. -Recheck Hb and conservatively transfuse for Hb less than 7 in hx of varices. no signs of GI bleeding. Baseline is between 8-9. -continue diuretics -discussed abstaining from alcohol D/W Dr Oropeza <SandipKovisusan V - Last Filed: 05/03/18 23:19> Objective - Vital Signs/Intake and Output Vital Signs (last 24 hours): Temp Pulse Resp BP Pulse Ox 98.1 F 74 18 120/62 96 05/03/18 14:59 05/03/18 14:59 05/03/18 14:59 05/03/18 14:59 05/03/18 14:59 Intake and Output: 05/03/18 05/04/18 18:59 06:59 Intake Total 360 Output Total 600 Balance -240 - Labs Labs: 05/02/18 06:30 05/02/18 06:30 PT 14.1 SECONDS (9.4-12.5) H 04/30/18 07:00 INR 1.22 04/30/18 07:00 Attending/Attestation - Attestation I have personally seen and examined this patient.: Yes I have fully participated in the care of the patient.: Yes I have reviewed all pertinent clinical information, including history, physical exam and plan: Yes Notes (Text): This is an addendum to GI progress report dictated by the GI Fellow.The patient was seen and examined earlier. Medical records, lab studies, imagings were reviewed. Last 24 hours events reviewed. Agreed with the above treatment plan as outlined in GI Fellow 's notes with the addition of the following Abdomen less distended on diuretics Followup electrolytes 05/03/18 23:19
--- NOTE | 2018-05-03 14:45 | CP.PCM.PCO ---
Addendum Addendum: 05/03/18 14:41 Blaine Yancey D.O. PGY-3, Internal Medicine Resident, [place]. on Duty Received call from RN for concern of facial rash Seen and examined at bedside. Patient recently received 2U PRBC due to anemia. Noted small macular, non-raised rash diffusely over face, minimal on face, some on arms and some on legs. No tachycardia or discomfort but admits to itching. No acute distress. Overall feeling well. Facial rash Appears to be a acute allergic reaction with limited cutaneous findings. Discussed with RN. We will give him benadryl 50mg IVP x1 and monitor. RN will reach out to Dr. Ponce to inform. Discussed with overnight team as well to re-evaluate the patient later in the day.
[2018-05-03 14:59] VITALS: BP 120/62; PULSE 74; TEMP 98.1; O2SAT 96
[2018-05-03 20:54] LABS: TOTAL PROTEIN PERITONEAL FLUID <3.0 g/dL
--- NOTE | 2018-05-03 22:39 | PN ---
DATE: 05/03/2018 PULMONARY PROGRESS NOTE REFERRING PHYSICIAN: Evie Ponce MD. SUBJECTIVE: He is lying in the bed, head at 45 degrees. Night was unremarkable. No new claim. No headache. No nausea. No more fluid leak from the incision site. No leg pain or leg swelling. PHYSICAL EXAMINATION: GENERAL: In no acute distress. VITAL SIGNS: Temperature is 98, heart rate 74, respiratory rate is 18, blood pressure 120/62, pulse ox 96% on room air. HEENT: Moist mucous membranes. No ulcer or thrush noted. NECK: Supple. No JVD. LUNGS: Have a fair airflow with rhonchi. HEART: S1 and S2. ABDOMEN: Soft, mildly distended. Incision site looks okay. No fluid leakage. EXTREMITIES: There is no edema. NEUROLOGIC: Awake, alert, and follows simple commands. MEDICATIONS: Aldactone 50 mg daily, Brovana inhaled twice a day, Lasix 20 mg daily, Nicoderm patch daily, vitamin D daily, Pulmicort inhaled twice a day, Tylenol p.r.n., vitamin B1 100 mg daily, and Zoloft 25 mg daily. LABORATORY DATA: No new lab is available since yesterday. IMPRESSION AND PLAN: Chronic obstructive lung disease, cirrhotic liver, esophageal varices, anemia, status post hernia repair, recurrent ascites requiring paracenteses. Pulmonary point of view, doing okay. Continue bronchodilator. Keep head at 45 degrees. Gastric prophylaxis. May give influenza immunization before discharge. Medically stable to be discharged. The patient urged to stop smoking and also urged to not to drink alcohol. Fall precaution. Thank you and we will follow with you. Theodore Atkins MD
--- NOTE | 2018-05-04 01:05 | PN ---
DATE: 05/03/2018 SUBJECTIVE: The patient is a 72-year-old male. Patient was seen and examined on the bedside, earlier in the morning, looking comfortable. Want to go home. Tolerating food very well. No nausea or vomiting. No headache or dizziness. No chest pain. No palpitation. No fever. No chills. PHYSICAL EXAMINATION: VITAL SIGNS: Temperature 98.6, pulse 73, respiratory rate 18, blood pressure 120/64, pulse oximetry 98%. HEENT: Head: Normocephalic, atraumatic. Eyes: PERRLA. Extraocular muscles intact. Conjunctivae clear. Nose patent. Mucous membranes moist. NECK: Supple. No carotid bruit. No JVD or thyromegaly. CHEST: Bilaterally symmetrical. HEART: S1 and S2 positive. LUNGS: Clear to auscultation. ABDOMEN: Soft. Bowel sounds positive. No organomegaly. EXTREMITIES: No edema. No cyanosis. NEUROLOGICAL: Patient is awake, alert. Moving all four extremities. No focal deficits. Patient is bilaterally blind. MEDICATIONS: Tylenol, Brovana, Pulmicort, calcium with vitamin D, Lasix, Nicotine, Zoloft, Aldactone, thiamine. LABORATORY DATA: White blood cell 7.5, hemoglobin 10, hematocrit 31.4, platelets 200. Sodium 137, potassium 4, BUN 14, creatinine 0.6. Glucose 81. ASSESSMENT AND PLAN: Mr. Esteban Carrion is a 72-year-old male with anemia, decompensated alcoholic cirrhosis, came with ascitic fluid leaking from surgical port site, treated by Dr. Luke Herrera, noncompliant with care, decompensated alcoholic cirrhosis, ascites, recent laparoscopic procedure for hernia repair, chronic obstructive pulmonary disease, history of esophageal varices, banding in 2017, history of gastrointestinal bleeding, chronic anemia, status post 2 units of packed red blood cell transfused, repeat hemoglobin is 10, status post paracentesis, 1200 mL peggy fluid was removed. Requesting record of surgical procedure because patient do not have any information. Recommended diuretics to reduce ascites, actually diuretics started. Need checking of hemoglobin more often. History of varices. No signs of gastrointestinal bleeding right now. Continue diuretics. Noted episode happen after my round. Noted communication report. According to that, patient has macular non-raised rash diffusely over face, minimally on the face and some on arms and some on legs. No tachycardia or discomfort but admits to itching. No acute discharge. Overall feels better. Appears to be maybe delayed allergic reaction with limited cutaneous findings. Benadryl dose was given. Gastrointestinal and deep venous thrombosis prophylaxes. Repeat labs. We will follow up. Evie Ponce MD [id number]
== END 2018-05-03 21:07 | disposition home or self-care (01) | DRG 433 ==
LOC: ED 05:18 → ERH 06:55 → 5RSO 09:08 → OBSVTOIN 05-01 11:47
PROVIDERS: ADMIT Internal Medicine; ATTEND Internal Medicine
PROC: 0JQ83ZZ Repair Abdomen Subcutaneous Tissue and Fascia, Percutaneous Approach (ICD-10-PCS; 2018-04-30)
PROC: 30233N1 Transfusion of Nonautologous Red Blood Cells into Peripheral Vein, Percutaneous Approach (ICD-10-PCS; 2018-05-01)
PROC: BW40ZZZ Ultrasonography of Abdomen (ICD-10-PCS; 2018-05-01)
PROC: 0W9G3ZX Drainage of Peritoneal Cavity, Percutaneous Approach, Diagnostic (ICD-10-PCS; principal; 2018-05-01 09:30)
DX: K70.31 Alcoholic cirrhosis of liver with ascites (principal); I85.10 Secondary esophageal varices without bleeding; R64 Cachexia; Z68.1 Body mass index [BMI] 19.9 or less, adult; B18.1 Chronic viral hepatitis B without delta-agent; B19.10 Unspecified viral hepatitis B without hepatic coma; I85.00 Esophageal varices without bleeding; F10.20 Alcohol dependence, uncomplicated; Y90.9 Presence of alcohol in blood, level not specified; J44.9 Chronic obstructive pulmonary disease, unspecified; D50.0 Iron deficiency anemia secondary to blood loss (chronic); D64.9 Anemia, unspecified; E87.8 Other disorders of electrolyte and fluid balance, not elsewhere classified; F17.200 Nicotine dependence, unspecified, uncomplicated; H40.9 Unspecified glaucoma; H54.8 Legal blindness, as defined in USA; H91.90 Unspecified hearing loss, unspecified ear; I10 Essential (primary) hypertension; M19.90 Unspecified osteoarthritis, unspecified site; Z86.73 Personal history of transient ischemic attack (TIA), and cerebral infarction without residual deficits; Z91.19 Patient's noncompliance with other medical treatment and regimen; Z96.642 Presence of left artificial hip joint; R21 Rash and other nonspecific skin eruption; R40.2412 Glasgow coma scale score 13-15, at arrival to emergency department; H26.9 Unspecified cataract

== ENCOUNTER 2018-07-23 16:39 | Inpatient (IN) | payer MEDICARE, MEDICAID ==
[2018-07-23 16:39] VITALS: BMI 21.4
--- NOTE | 2018-07-23 17:01 | ED PDOC ---
Arrival/HPI - General Chief Complaint: Abdominal Pain Time Seen by Provider: 07/23/18 16:50 Historian: Patient - History of Present Illness Narrative History of Present Illness (Text): 07/23/18 16:55 72 year old male, whose past medical history includes liver cirrhosis, COPD, ascites , and esophageal varices, presents to the Emergency department complaining of abdominal distention since 10 days. Patient informs worsening symptoms for the past few days, prompting him to present to the ED for medical evaluation. Patient reports similar symptoms in the past with surgical intervention. Patient is a poor historian but denies any other associated medical complaints. Patient denies any fevers, chills, headache, dizziness, chest pain, shortness of breath, any other complaints. Time/Duration: > week Symptom Onset: Gradual Symptom Course: Unchanged Activities at Onset: Light Context: Home Past Medical History - Provider Review Nursing Documentation Reviewed: Yes - Infectious Disease Hx of Infectious Diseases: None - Tetanus Immunization Tetanus Immunization: Unknown - Past Medical History Past Medical History: No Previous - Cardiac Hx Cardiac Disorders: Yes Hx Hypertension: Yes - Pulmonary Hx Chronic Obstructive Pulmonary Disease (COPD): Yes - Neurological HX Cerebrovascular Accident: Yes - HEENT Hx HEENT Disorder: Yes Hx Blind: Yes Hx Cataracts: Yes (both eyes) Hx Deafness: Yes (left ear) Hx Glaucoma: Yes (left eye) - Renal Hx Renal Disorder: No - Endocrine/Metabolic Hx Endocrine Disorders: No - Hematological/Oncological Hx Blood Disorders: No Hx Cirrhosis: Yes - Integumentary Hx Dermatological Disorder: No - Musculoskeletal/Rheumatological Hx Arthritis: Yes - Gastrointestinal Hx Gastrointestinal Disorders: Yes Other/Comment: GI Bleed; Esophageal varices - Genitourinary/Gynecological Hx Genitourinary Disorders: No - Psychiatric Hx Psychophysiologic Disorder: Yes Hx Depression: Yes Hx Psychosis: Yes Hx Substance Use: No - Past Surgical History Past Surgical History: No Previous - Surgical History Hx Orthopedic Surgery: Yes (l hip fx sx 10/20/16) Other/Comment: us guided paracenthesis 06/23/14. hernia repair 04/2018 - Anesthesia Hx Anesthesia: Yes Hx Anesthesia Reactions: No Hx Malignant Hyperthermia: No - Suicidal Assessment Feels Threatened In Home Enviroment: No Family/Social History - Physician Review Nursing Documentation Reviewed: Yes Family/Social History: Unknown Family HX Smoking Status: Light Smoker < 10 Cigarettes Daily Hx Alcohol Use: No (denies) Hx Substance Use: No Hx Substance Use Treatment: No Allergies/Home Meds Allergies/Adverse Reactions: Allergies No Known Allergies Allergy (Verified 04/18/17 13:39) Home Medications: Home Meds Medication Instructions Recorded Confirmed Dorzolamide 2%/Timolol 0.5% 1 drop BOTHEYES BID 01/15/18 04/30/18 [Cosopt 2%-0.5% Opht] Latanoprost [Xalatan] 1 drop BOTHEYES DAILY 01/15/18 04/30/18 Sertraline [Zoloft] 1 tab PO DAILY 01/15/18 04/30/18 Review of Systems - Physician Review All systems were reviewed & negative as marked: Yes - Review of Systems Constitutional: absent: Fevers Respiratory: absent: SOB, Cough Cardiovascular: absent: Chest Pain Gastrointestinal: Other (Abdominal distention). absent: Diarrhea, Nausea, Vomiting Genitourinary Male: absent: Dysuria, Urinary Output Changes Musculoskeletal: absent: Back Pain, Neck Pain Skin: absent: Rash Neurological: absent: Headache, Dizziness Physical Exam Vital Signs Reviewed: Yes Vital Signs Temp Resp BP 07/23/18 16:51 98.1 F 18 132/75 Temperature: Afebrile Blood Pressure: Normal Respiratory Rate: Normal Appearance: Positive for: Well-Appearing, Non-Toxic, Comfortable Pain Distress: None Mental Status: Positive for: Alert and Oriented X 3 - Systems Exam Head: Present: Atraumatic, Normocephalic Pupils: Present: PERRL Extroacular Muscles: Present: EOMI Conjunctiva: Present: Normal Neck: Present: Normal Range of Motion Respiratory/Chest: Present: Clear to Auscultation, Good Air Exchange. No: Respiratory Distress, Accessory Muscle Use Cardiovascular: Present: Regular Rate and Rhythm, Normal S1, S2. No: Murmurs Abdomen: Present: Distention. No: Tenderness, Peritoneal Signs Upper Extremity: Present: Normal Inspection. No: Cyanosis, Edema Lower Extremity: Present: Normal Inspection. No: Edema Neurological: Present: GCS=15, CN II-XII Intact, Speech Normal Skin: Present: Warm, Dry, Normal Color. No: Rashes Psychiatric: Present: Alert, Oriented x 3, Normal Insight, Normal Concentration Medical Decision Making ED Course and Treatment: 07/23/18 16:57 Impression: 72 year old male presents to the Emergency department complaining of abdominal distention. Plan: -- Labs -- Urinalysis -- Reassess and disposition Prior Visits: Notes and results from previous visits were reviewed. Progress Notes: 07/23/18 19:13 Discussed case with threading machine tender automotive exhaust emissions technician, Dr. Neal, who is aware and will evaluate patient at bedside for possible ICU admission. 07/23/18 19:49 EXAM: CT Abdomen with IV contrast CLINICAL HISTORY: ABD. DISTENTION, ANEMIA, H/O Cirrhosis TECHNIQUE: Axial computed tomography images of the abdomen and pelvis with intravenous contrast. 379.06 mGy-cm CONTRAST: With; OMNI 350 96ml COMPARISON: None provided. FINDINGS: LUNG BASES: The lung bases appear clear. No pleural effusions are seen. LIVER: Liver is lobulated in contour and cirrhotic appearing. No mass or biliary duct dilatation. GALLBLADDER AND BILE DUCTS: Multiple gallstones are present. PANCREAS: Unremarkable. SPLEEN: Unremarkable. ADRENAL GLANDS: Unremarkable. KIDNEYS, URETERS, AND BLADDER: The kidneys appear within normal limits. There is no hydronephrosis or hydroureter. No urinary calculi are seen. STOMACH AND BOWEL: Unremarkable appearance of the stomach . Multiple loops of small bowel with bowel wall thickening likely related to the ascites. APPENDIX: No evidence of acute appendicitis on CT examination. PERITONEUM: Extensive amount of ascites is seen throughout the abdomen and pelvis. None LYMPH NODES: No lymphadenopathy is evident. VASCULATURE: No evidence of abdominal aortic aneurysm. BONES: Orthopedic fixation device seen left proximal femur. IMPRESSION: Cirrhotic liver. Extensive ascites seen throughout the abdomen and pelvis. Gallstones. Apparent thickening of the bowel wall multiple loops of small bowel likely related to the ascites. Orthopedic fixation device left proximal femur. Clinical correlation advised. 07/27/18 13:16 blood transfusion initated. guiac neg. h/nigel varices, octreotide and protonix started disucssed with gi doyle. accepted icu. - Scribe Statement The provider has reviewed the documentation as recorded by the Vincent Bennett. All medical record entries made by the Pacoibashwin were at my direction and p ersonally dictated by me. I have reviewed the chart and agree that the record accurately reflects my personal performance of the history, physical exam, medical decision making, and the department course for this patient. I have also personally directed, reviewed, and agree with the discharge instructions and disposition. Disposition/Present on Arrival - Present on Arrival Any Indicators Present on Arrival: No History of DVT/PE: No History of Uncontrolled Diabetes: No Urinary Catheter: No History of Decub. Ulcer: No History Surgical Site Infection Following: None - Disposition Have Diagnosis and Disposition been Completed?: Yes Diagnosis: Anemia, GI bleed, Ascites Disposition: HOSPITALIZED Disposition Time: 09:00 Condition: CRITICAL
[2018-07-23 17:58] LABS: BASO # 0.09 K/mm3 (0.0-2.0); BASO % 1.6 % (0.0-3.0); EOS # 0.4 (0.0-0.7); EOS % 6.5 % (1.5-5.0); GRAN # 2.63 (1.4-6.5); GRAN % 47.3 % (50.0-68.0); LYMPH # 1.6 (1.2-3.4); LYMPH % 28.6 % (22.0-35.0); MEAN CELL VOLUME 66.3 fl (80.0-105.0); MEAN CORPUSCULAR HEMOGLOBIN 18.7 pg (25.0-35.0); MEAN CORPUSCULAR HGB CONC 28.2 g/dl (31.0-37.0); MONO # 0.9 (0.1-0.6); RBC 2.73 10^6/uL (3.5-6.1); RED CELL DISTRIBUTION WIDTH 21.3 % (11.5-14.5); WHITE BLOOD COUNT 5.6 10^3/uL (4.5-11.0)
[2018-07-23 18:01] LABS: INR 1.29; PARTIAL THROMBOPLASTIN TIME 34.4 Seconds (25.1-36.5); PROTHROMBIN TIME 14.8 SECONDS (9.4-12.5)
[2018-07-23 18:05] LABS: HEMOGLOBIN 5.1 g/dL (14.0-18.0)
[2018-07-23 18:24] LABS: ALB/GLOB RATIO 0.7 (1.1-1.8); ALBUMIN 2.8 g/dL (3.0-4.8); ALT/SGPT 30 U/L (7-56); AST/SGOT 46 U/L (17-59); BILIRUBIN,DIRECT 0.4 mg/dL (0.0-0.4); BLOOD UREA NITROGEN 17 mg/dL (7-21); CALCIUM 8.1 mg/dL (8.4-10.5); GFR NON-AFRICAN AMERICAN > 60; LIPASE 251 U/L (23-300)
[2018-07-23] MEDS ORDERED: Sodium Chloride 0.9% 500 ML IV STA (18:27)
[2018-07-23] MEDS ORDERED: Iohexol 350 MG/100 ML VIAL ONE (18:39)
[2018-07-23] MEDS: Pantoprazole 40mg/100mL NS 40 MG/100 ML BAG IVPB SCH (18:46)
[2018-07-23] MEDS ORDERED: Albuterol-Ipratrop 3 mg / 0.5 (3 ml) UD IH STA ×2 (18:52→18:53)
[2018-07-23] MEDS ORDERED: DiphenhydrAMINE 50 mg/ml Inj ONE (21:23)
[2018-07-23] MEDS ORDERED: DiphenhydrAMINE 50 mg/ml Inj IVP STA (21:23)
[2018-07-23] MEDS ORDERED: Ipratropium 0.02% Inhal Soln (0.5 mg/2.5 ml) UD IH PRN (21:37)
--- NOTE | 2018-07-23 22:05 | CP.PCM.CON ---
<Storm Thomas - Last Filed: 07/27/18 22:05> History of Present Illness - History of Present Illness History of Present Illness: Storm Thomas DO PGY1. Consult note for Hospitalist Service C.C: abdominal distension 72 year old male with PMH liver cirrhosis, GI blood, and esophageal varices, COPD, chronic anemia, alcohol abuse, HTN, HLD presents to the ED for 6 days of abdominal distension and poor oral intake. He only eats cracker with tea for the past 6 days. He does not have a bowel movement but admits to passing gas for the same period of time. He reports SOB at rest that gets worse while in supine position. It is associated with cough with white sputum and occasional blood s treaks as well. He also c/o severe itching and dry skin in his extremities, back that bleed from excessive rubbing of the skin. As per chart, patient had multiple admissions for abdominal distension with paracentesis. Last admission on april 2018. Patient denied CP, palpitation, N/V/D, headache, urinary symptoms. PMH: as above PSH:ORIF, herniorrhaphy SH: former alcohol abuse (4 drinks daily for 40 years), ex-smoker, no drug use. 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 His MEDICAL RADIATION THERAPIST does not know PMD:Dr Evie Ponce GI: Dr. Oropeza Past Patient History - Infectious Disease Hx of Infectious Diseases: None - Tetanus Immunizations Tetanus Immunization: Unknown - Past Social History Smoking Status: Light Smoker < 10 Cigarettes Daily - CARDIAC Hx Cardiac Disorders: Yes Hx Hypertension: Yes - PULMONARY Hx Chronic Obstructive Pulmonary Disease (COPD): Yes - NEUROLOGICAL HX Cerebrovascular Accident: Yes - HEENT Hx HEENT Problems: Yes Hx Blind: Yes Hx Cataracts: Yes (both eyes) Hx Deafness: Yes (left ear) Hx Glaucoma: Yes (left eye) - RENAL Hx Chronic Kidney Disease: No - ENDOCRINE/METABOLIC Hx Endocrine Disorders: No - HEMATOLOGICAL/ONCOLOGICAL Hx Blood Disorders: No Hx Cirrhosis: Yes - INTEGUMENTARY Hx Dermatological Problems: No - MUSCULOSKELETAL/RHEUMATOLOGICAL Hx Arthritis: Yes - GASTROINTESTINAL Hx Gastrointestinal Disorders: Yes Other/Comment: GI Bleed; Esophageal varices - GENITOURINARY/GYNECOLOGICAL Hx Genitourinary Disorders: No - PSYCHIATRIC Hx Psychophysiologic Disorder: Yes Hx Depression: Yes Hx Psychosis: Yes Hx Substance Use: No - SURGICAL HISTORY Hx Orthopedic Surgery: Yes (l hip fx sx 10/20/16) Other/Comment: us guided paracenthesis 06/23/14. hernia repair 04/2018 - ANESTHESIA Hx Anesthesia: Yes Hx Anesthesia Reactions: No Hx Malignant Hyperthermia: No Meds Allergies/Adverse Reactions: Allergies Allergy/AdvReac Type Severity Reaction Status Date / Time No Known Allergies Allergy Verified 04/18/17 13:39 - Medications Medications: Current Medications Arformoterol Tartrate (Brovana) 15 mcg IH [id number] JUANITA Budesonide (Pulmicort Respules) 0.25 mg IH [id number] JUANITA Furosemide (Lasix) 20 mg IVP ONCE ONE Stop: 07/24/18 00:41 Pantoprazole Sodium (Protonix 40mg Ivpb) 40 mg in 100 mls @ 20 mls/hr IVPB .Q5H JUANITA Last Admin: 07/23/18 18:46 Dose: 20 mls/hr Octreotide Acetate 1,250 mcg/ (Sodium Chloride) 252.5 mls @ 10.1 mls/hr IV .Q24H JUANITA; Protocol Ceftriaxone Sodium (Rocephin 1 Gram Ivpb) 1 gm in 100 mls @ 100 mls/hr IVPB DAILY JUANITA; Protocol Azithromycin 250 mg/ Sodium (Chloride) 250 mls @ 167 mls/hr IVPB DAILY JUANITA; Protocol Ipratropium [place] (Atrovent) 0.5 mg IH [id number] PRN PRN Reason: Shortness of Breath Levalbuterol HCl (Xopenex) 0.63 mg IH [id number] JUANITA Multi-Ingredient Ointment (Hydrophor Oint) 0 gm TOP Q6H JUANITA Results - Vital Signs Recent Vital Signs: Last Vital Signs Temp 98.2 F 07/23/18 21:27 Pulse 105 H 07/23/18 21:27 Resp 100 H 07/23/18 21:27 BP 146/74 07/23/18 21:27 Pulse Ox 98 07/23/18 18:37 - Labs Result Diagrams: 07/23/18 17:34 07/23/18 17:34 Labs: Laboratory Results - last 24 hr 07/23/18 07/23/18 07/23/18 17:34 17:34 17:34 WBC 5.6 RBC 2.73 L Hgb 5.1 L* D Hct 18.1 L* MCV 66.3 L MCH 18.7 L MCHC 28.2 L RDW 21.3 H Plt Count 193 MPV 9.0 Gran % 47.3 L Lymph % (Auto) 28.6 Gilliam % (Auto) 16.0 H Eos % (Auto) 6.5 H Baso % (Auto) 1.6 Gran # 2.63 Lymph # (Auto) 1.6 Gilliam # (Auto) 0.9 H Eos # (Auto) 0.4 Baso # (Auto) 0.09 PT 14.8 H INR 1.29 APTT 34.4 Sodium Potassium Chloride Carbon Dioxide Anion Gap BUN Creatinine Est GFR ( Amer) Est GFR (Non-Af Amer) Random Glucose Calcium Magnesium Total Bilirubin Direct Bilirubin AST ALT Alkaline Phosphatase Ammonia < 9 L Total Protein Albumin Globulin Albumin/Globulin Ratio Lipase Blood Type Antibody Screen Crossmatch BBK History Checked 07/23/18 07/23/18 17:34 18:45 WBC RBC Hgb Hct MCV MCH MCHC RDW Plt Count MPV Gran % Lymph % (Auto) Gilliam % (Auto) Eos % (Auto) Baso % (Auto) Gran # Lymph # (Auto) Gilliam # (Auto) Eos # (Auto) Baso # (Auto) PT INR APTT Sodium 139 Potassium 3.6 Chloride 108 H Carbon Dioxide 25 Anion Gap 10 BUN 17 Creatinine 0.7 L Est GFR ( Amer) > 60 Est GFR (Non-Af Amer) > 60 Random Glucose 123 H Calcium 8.1 L Magnesium 2.2 Total Bilirubin 0.5 Direct Bilirubin 0.4 AST 46 ALT 30 Alkaline Phosphatase 144 H D Ammonia Total Protein 6.5 Albumin 2.8 L Globulin 3.7 Albumin/Globulin Ratio 0.7 L Lipase 251 Blood Type AB POSITIVE Antibody Screen Negative Crossmatch See Detail BBK History Checked Patient has bt Assessment & Plan - Assessment and Plan (Free Text) Assessment: 72 y/o male with PMH liver cirrhosis, GI blood, and esophageal varices, COPD, chronic anemia, alcohol abuse, HTN, HLD presents to the ED for 6 days of abdominal distension and poor oral intake. H/H is 5.1/18.1, CT A/P shows liver cirrhosis with extensive ascites. 2 units of RBCs ordered and patient trans ferred to ICU for observation Plan: Abdominal distension: -secondary to extensive ascites in the setting of alcoholic liver cirrhosis -patient had multiple admissions with therapeutic paracentesis -started protonix, octreotide drip -CT A/P: extensive ascites, liver cirrhosis -AST/ALT 46/30 -ammonia <9, albumin 2.8, PT/INR 14.8/1.29 -can give albumin in am after blood transfusion -NPO after midnight -f/u blood cx -IR consulted Dr Scott -GI consulted Dr Oropeza SOB: -likely due to extensive ascites, COPD -EKG: sinus tachy, non specific ST/T wave abnormalities -CXR: consistent with COPD -h/o COPD. currently no respiratory distress, expiratory lung wheezes -started azithromycin, rocephine -trop negative x1. serial q6h x2 -start xopenex q6h -start pulmicort, atrovent, xopenex -O2 supp prn -f/u sputum cx -pulmonology consulted. Dr Atkins Anemia: -patient asymptomatic -H/H 5.1/18.1 -2 units of PRBC ordered with lasix 20mg IVP in between -monitor H/H -iron studies ordered Prophylaxis: DVT ppx: SCD GI ppx: protonix ggt NPO after midnight Case reviewed and plan discussed with Dr Neal <Josy Neal - Last Filed: 07/27/18 22:07> Meds - Medications Medications: Current Medications Alprazolam (Xanax) 0.125 mg PO DAILY [facility]; Protocol Stop: 08/03/18 13:16 Last Admin: 07/27/18 13:29 Dose: 0.125 mg Arformoterol Tartrate (Brovana) 15 mcg IH [id number] JUANITA Last Admin: 07/27/18 20:53 Dose: 15 mcg Budesonide (Pulmicort Respules) 0.25 mg IH [id number] JUANITA Last Admin: 07/27/18 20:53 Dose: 0.25 mg Furosemide (Lasix) 40 mg PO DAILY JUANITA Last Admin: 07/27/18 13:29 Dose: 40 mg Ipratropium [place] (Atrovent) 0.5 mg IH [id number] PRN PRN Reason: Shortness of Breath Last Admin: 07/27/18 07:49 Dose: 0.5 mg Levalbuterol HCl (Xopenex) 0.63 mg IH [id number] [facility] Last Admin: 07/27/18 20:53 Dose: 0.63 mg Methylprednisolone (Solu-Medrol) 20 mg IVP Q12H [facility] Last Admin: 07/27/18 16:45 Dose: Not Given Multi-Ingredient Ointment (Hydrophor Oint) 0 gm TOP Q6H [facility] Last Admin: 07/27/18 21:41 Dose: Not Given Nicotine (Nicoderm Cq) 1 patch TD DAILY [facility] Last Admin: 07/27/18 10:51 Dose: Not Given Nystatin (Nystatin Oral Susp) 5 ml PO QID [facility] Stop: 08/01/18 18:01 Last Admin: 07/27/18 21:41 Dose: 5 ml Pantoprazole Sodium (Protonix Ec Tab) 40 mg PO 0600 [facility] Last Admin: 07/27/18 07:37 Dose: Not Given Spironolactone (Aldactone) 100 mg PO DAILY [facility] Last Admin: 07/27/18 09:51 Dose: 100 mg Results - Vital Signs Recent Vital Signs: Last Vital Signs Temp 97.7 F 07/27/18 14:00 Pulse 84 07/27/18 14:00 Resp 20 07/27/18 14:00 BP 138/67 07/27/18 14:00 Pulse Ox 99 07/27/18 14:00 - Labs Result Diagrams: 07/27/18 11:55 07/27/18 11:55 Labs: Laboratory Results - last 24 hr 07/27/18 07/27/18 11:55 11:55 WBC 10.7 D RBC 3.64 Hgb 8.0 L Hct 27.3 L MCV 75.0 L MCH 22.0 L MCHC 29.3 L RDW 25.7 H Plt Count 133 Gran % 81.5 H Lymph % (Auto) 9.8 L Gilliam % (Auto) 8.6 H Eos % (Auto) 0.1 L Baso % (Auto) 0.0 Gran # 8.72 H Lymph # (Auto) 1.1 L Gilliam # (Auto) 0.9 H Eos # (Auto) 0.0 Baso # (Auto) 0.00 Sodium 140 Potassium 4.0 Chloride 112 H Carbon Dioxide 24 Anion Gap 8 L BUN 20 Creatinine 0.7 L Est GFR ( Amer) > 60 Est GFR (Non-Af Amer) > 60 Random Glucose 114 H Calcium 7.1 L Total Bilirubin 0.4 AST 29 ALT 35 Alkaline Phosphatase 92 Total Protein 5.8 Albumin 2.5 L Globulin 3.3 Albumin/Globulin Ratio 0.7 L Attending/Attestation - Attestation I have personally seen and examined this patient.: Yes I have fully participated in the care of the patient.: Yes I have reviewed all pertinent clinical information: Yes
[2018-07-23 22:19] LABS: TROPONIN I 0.01 ng/mL
[2018-07-23 22:24] LABS: IRON 10 ug/dL (45-180); TOTAL IRON BINDING CAPACITY 364 ug/dL (261-462)
[2018-07-23 22:25] LABS: % IRON SATURATION 3 % (20-55)
[2018-07-23 23:43] LABS: PH,URINE 6.5 (4.7-8.0); URINE BILIRUBIN NEGATIVE (NEGATIVE); URINE BLOOD NEGATIVE (NEGATIVE); URINE GLUCOSE (UA) NEGATIVE (NEGATIVE); URINE LEUKOCYTE ESTERASE NEGATIVE Leu/uL (NEGATIVE); URINE PROTEIN NEGATIVE mg/dL (<30 mg/dL); URINE UROBILINOGEN 0.2 E.U./dL (<1 E.U./dL)
[2018-07-23 23:44] LABS: URINE APPEARANCE CLEAR (CLEAR); URINE COLOR YELLOW (YELLOW)
[2018-07-24 06:55] LABS: ARTERIAL BLOOD GAS HCO3 19.8 mmol/L (21-28); ARTERIAL BLOOD GAS HEMOGLOBIN 7.1 g/dL (11.7-17.4); ARTERIAL BLOOD GAS O2 CAPACITY 9.6 mL/dl (16-24); ARTERIAL BLOOD GAS O2 CONTENT 9.3 ML/dl (15-23); ARTERIAL BLOOD GAS O2 SAT 96.7 % (95-98); ARTERIAL BLOOD GAS PCO2 32 mm/Hg (35-45); ARTERIAL BLOOD GAS TCO2 20.8 mmol.L (22-28)
[2018-07-24 07:12] LABS: BASO # 0.01 K/mm3 (0.0-2.0); BASO % 0.2 % (0.0-3.0); GRAN # 3.12 (1.4-6.5); GRAN % 77.9 % (50.0-68.0); LYMPH # 0.7 (1.2-3.4); LYMPH % 17.2 % (22.0-35.0); MEAN CELL VOLUME 73.3 fl (80.0-105.0); MONO # 0.2 (0.1-0.6); MONO % 4.7 % (1.0-6.0); PLATELET COUNT 151 10^3/uL (120.0-450.0); RBC 3.59 10^6/uL (3.5-6.1)
[2018-07-24 07:22] LABS: HEMOGLOBIN 7.9 g/dL (14.0-18.0)
--- NOTE | 2018-07-24 07:38 | CP.CCUPN ---
<Sanchez Colin - Last Filed: 07/24/18 10:47> CCU Subjective - Physician Review Subjective (Free Text): Sanchez Colin PGY-1 Progress Note for ICU Patient seen and evaluated at bedside. Patient complains of abdominal bloating and shortness of breath. No acute events reported overnight. CCU Objective - Vital Signs / Intake & Output Vital Signs (Last 4 hours): Vital Signs Temp Pulse Resp BP 07/24/18 04:11 98.4 F 92 H 22 132/72 Intake and Output (Last 8hrs): Intake & Output 07/23/18 07/24/18 07/24/18 22:59 06:59 14:59 Intake Total 0 700 Balance 0 700 Weight 49.895 kg 49.895 kg Intake: Blood Product 0 650 Red Blood Cells Cpd As1 325 Lr Unit [id number] Red Blood Cells Cpd As1 0 325 Lr Unit [id number] Other 50 Red Blood Cells Cpd As1 50 Lr Unit [id number] Other: Voiding Method Urinal - Physical Exam Physical Exam Limitations: Positive for: Other (hard of hearing, poor eyesight) Head: Positive for: Atraumatic, Normocephalic Pupils: Positive for: PERRL Extroacular Muscles: Positive for: EOMI Conjunctiva: Positive for: Normal Neck: Positive for: Normal Range of Motion Respiratory/Chest: Positive for: Clear to Auscultation, Good Air Exchange. Negative for: Respiratory Distress, Accessory Muscle Use Cardiovascular: Positive for: Regular Rate and Rhythm, Normal S1, S2. Negative for: Murmurs Abdomen: Positive for: Distention. Negative for: Tenderness, Peritoneal Signs Upper Extremity: Positive for: Normal Inspection. Negative for: Cyanosis, Edema Lower Extremity: Positive for: Normal Inspection. Negative for: Edema Neurological: Positive for: GCS=15, CN II-XII Intact, Speech Normal Skin: Positive for: Warm, Dry, Normal Color. Negative for: Rashes Psychiatric: Positive for: Alert, Oriented x 3, Normal Insight, Normal Concentration - Medications Active Medications: Active Medications Generic Name Dose Route Start Last Admin Trade Name Freq PRN Reason Stop Dose Admin Arformoterol Tartrate 15 mcg 07/24/18 08:00 Brovana IH [id number] [facility] Budesonide 0.25 mg 07/24/18 08:00 Pulmicort Respules IH [id number] JUANITA Pantoprazole Sodium 40 mg in 100 mls @ 20 mls/hr 07/23/18 18:30 07/23/18 18:46 Protonix 40mg Ivpb IVPB 20 mls/hr .Q5H JUANITA Administration Octreotide Acetate 1,250 mcg/ 252.5 mls @ 10.1 mls/hr 07/23/18 18:45 Sodium Chloride IV .Q24H JUANITA Protocol 50 MCG/HR Ceftriaxone Sodium 1 gm in 100 mls @ 100 mls/hr 07/24/18 10:00 Rocephin 1 Gram Ivpb IVPB DAILY JUANITA Protocol Azithromycin 250 mg/ Sodium 250 mls @ 167 mls/hr 07/24/18 10:00 Chloride IVPB DAILY [facility] Protocol Ipratropium [place] 0.5 mg 07/23/18 21:37 Atrovent IH [id number] PRN Shortness of Breath Levalbuterol HCl 0.63 mg 07/24/18 02:00 Xopenex IH [id number] JUANITA Methylprednisolone 40 mg 07/24/18 06:45 Solu-Medrol IVP Q8 [facility] Multi-Ingredient Ointment 0 gm 07/23/18 21:45 Hydrophor Oint TOP Q6H JUANITA - Patient Studies Lab Studies: Lab Studies 07/24/18 07/24/18 07/24/18 Range/Units 06:40 06:30 02:38 WBC 4.0 L D (4.5-11.0) 10^3/uL RBC 3.59 (3.5-6.1) 10^6/uL Hgb 7.9 L D (14.0-18.0) g/dL Hct 26.3 L (42.0-52.0) % MCV 73.3 L D (80.0-105.0) fl MCH 22.0 L (25.0-35.0) pg MCHC 30.0 L (31.0-37.0) g/dl RDW 23.0 H (11.5-14.5) % Plt Count 151 (120.0-450.0) 10^3/uL MPV (7.0-11.0) fl Gran % 77.9 H (50.0-68.0) % Lymph % (Auto) 17.2 L (22.0-35.0) % [place] % (Auto) 4.7 (1.0-6.0) % Eos % (Auto) 0.0 L (1.5-5.0) % Baso % (Auto) 0.2 (0.0-3.0) % Gran # 3.12 (1.4-6.5) Lymph # (Auto) 0.7 L (1.2-3.4) [place] # (Auto) 0.2 (0.1-0.6) Eos # (Auto) 0.0 (0.0-0.7) Baso # (Auto) 0.01 (0.0-2.0) K/mm3 PT (9.4-12.5) SECONDS INR APTT (25.1-36.5) Seconds pCO2 32 L (35-45) mm/Hg pO2 61.0 L (80-100) mm/Hg HCO3 19.8 L (21-28) mmol/L ABG pH 7.40 (7.35-7.45) ABG Total CO2 20.8 L (22-28) mmol.L ABG O2 Saturation 96.7 (95-98) % ABG O2 Content 9.3 L (15-23) ML/dl ABG Base Excess -4.5 L (-2.0-3.0) mmol/L ABG Hemoglobin 7.1 L (11.7-17.4) g/dL ABG Carboxyhemoglobin 2.8 H (0.5-1.5) % POC ABG HHb (Measured) 3.2 (0-5) % ABG Methemoglobin 1.2 (0.0-3.0) % ABG O2 Capacity 9.6 L (16-24) mL/dl Hgb O2 Saturation 92.8 L (95.0-98.0) % FiO2 21.0 % Sodium (132-148) mmol/L Potassium (3.6-5.0) mmol/L Chloride (98-107) mmol/L Carbon Dioxide (21-33) mmol/L Anion Gap (10-20) BUN (7-21) mg/dL Creatinine (0.8-1.5) mg/dl Est GFR ( Amer) Est GFR (Non-Af Amer) Random Glucose (70-110) mg/dL Calcium (8.4-10.5) mg/dL Magnesium (1.7-2.2) mg/dL Iron (45-180) ug/dL TIBC (261-462) ug/dL % Saturation (20-55) % Total Bilirubin (0.2-1.3) mg/dL Direct Bilirubin (0.0-0.4) mg/dL AST (17-59) U/L ALT (7-56) U/L Alkaline Phosphatase (38-126) U/L Ammonia (9-33) umol/L Lactate Dehydrogenase (333-699) U/L Total Creatine Kinase (35-230) U/L Troponin I ng/mL NT-Pro-B Natriuret Pep (0-450) pg/mL Total Protein (5.8-8.3) g/dL Albumin (3.0-4.8) g/dL Globulin gm/dL Albumin/Globulin Ratio (1.1-1.8) Lipase (23-300) U/L Urine Color (YELLOW) Urine Appearance (CLEAR) Urine pH (4.7-8.0) Ur Specific [place] (1.005-1.035) Urine Protein (<30 mg/dL) mg/dL Urine Glucose (UA) (NEGATIVE) mg/dL Urine Ketones (NEGATIVE) mg/dL Urine Blood (NEGATIVE) Urine Nitrate (NEGATIVE) Urine Bilirubin (NEGATIVE) Urine Urobilinogen (<1 E.U./dL) E.U./dL Ur Leukocyte Esterase (NEGATIVE) Vika/uL Influenza Typ A,B (EIA) Negative for flu a/b (NEGATIVE) Blood Type Antibody Screen Crossmatch BBK History Checked 07/23/18 07/23/18 07/23/18 Range/Units 23:21 21:59 21:59 WBC (4.5-11.0) 10^3/uL RBC (3.5-6.1) 10^6/uL Hgb (14.0-18.0) g/dL Hct (42.0-52.0) % MCV (80.0-105.0) fl MCH (25.0-35.0) pg MCHC (31.0-37.0) g/dl RDW (11.5-14.5) % Plt Count (120.0-450.0) 10^3/uL MPV (7.0-11.0) fl Gran % (50.0-68.0) % Lymph % (Auto) (22.0-35.0) % [place] % (Auto) (1.0-6.0) % Eos % (Auto) (1.5-5.0) % Baso % (Auto) (0.0-3.0) % Gran # (1.4-6.5) Lymph # (Auto) (1.2-3.4) [place] # (Auto) (0.1-0.6) Eos # (Auto) (0.0-0.7) Baso # (Auto) (0.0-2.0) K/mm3 PT (9.4-12.5) SECONDS INR APTT (25.1-36.5) Seconds pCO2 (35-45) mm/Hg pO2 (80-100) mm/Hg HCO3 (21-28) mmol/L ABG pH (7.35-7.45) ABG Total CO2 (22-28) mmol.L ABG O2 Saturation (95-98) % ABG O2 Content (15-23) ML/dl ABG Base Excess (-2.0-3.0) mmol/L ABG Hemoglobin (11.7-17.4) g/dL ABG Carboxyhemoglobin (0.5-1.5) % POC ABG HHb (Measured) (0-5) % ABG Methemoglobin (0.0-3.0) % ABG O2 Capacity (16-24) mL/dl Hgb O2 Saturation (95.0-98.0) % FiO2 % Sodium (132-148) mmol/L Potassium (3.6-5.0) mmol/L Chloride (98-107) mmol/L Carbon Dioxide (21-33) mmol/L Anion Gap (10-20) BUN (7-21) mg/dL Creatinine (0.8-1.5) mg/dl Est GFR ( Amer) Est GFR (Non-Af Amer) Random Glucose (70-110) mg/dL Calcium (8.4-10.5) mg/dL Magnesium (1.7-2.2) mg/dL Iron 10 L (45-180) ug/dL TIBC 364 (261-462) ug/dL % Saturation 3 L (20-55) % Total Bilirubin (0.2-1.3) mg/dL Direct Bilirubin (0.0-0.4) mg/dL AST (17-59) U/L ALT (7-56) U/L Alkaline Phosphatase (38-126) U/L Ammonia (9-33) umol/L Lactate Dehydrogenase 692 (333-699) U/L Total Creatine Kinase 158 (35-230) U/L Troponin I 0.01 ng/mL NT-Pro-B Natriuret Pep 302 (0-450) pg/mL Total Protein (5.8-8.3) g/dL Albumin (3.0-4.8) g/dL Globulin gm/dL Albumin/Globulin Ratio (1.1-1.8) Lipase (23-300) U/L Urine Color Yellow (YELLOW) Urine Appearance Clear (CLEAR) Urine pH 6.5 (4.7-8.0) Ur Specific [place] <= 1.005 (1.005-1.035) Urine Protein Negative (<30 mg/dL) mg/dL Urine Glucose (UA) Negative (NEGATIVE) mg/dL Urine Ketones Negative (NEGATIVE) mg/dL Urine Blood Negative (NEGATIVE) Urine Nitrate Negative (NEGATIVE) Urine Bilirubin Negative (NEGATIVE) Urine Urobilinogen 0.2 (<1 E.U./dL) E.U./dL Ur Leukocyte Esterase Negative (NEGATIVE) Vika/uL Influenza Typ A,B (EIA) (NEGATIVE) Blood Type Antibody Screen Crossmatch BBK History Checked 07/23/18 07/23/18 07/23/18 Range/Units 18:45 17:34 17:34 WBC (4.5-11.0) 10^3/uL RBC (3.5-6.1) 10^6/uL Hgb (14.0-18.0) g/dL Hct (42.0-52.0) % MCV (80.0-105.0) fl MCH (25.0-35.0) pg MCHC (31.0-37.0) g/dl RDW (11.5-14.5) % Plt Count (120.0-450.0) 10^3/uL MPV (7.0-11.0) fl Gran % (50.0-68.0) % Lymph % (Auto) (22.0-35.0) % [place] % (Auto) (1.0-6.0) % Eos % (Auto) (1.5-5.0) % Baso % (Auto) (0.0-3.0) % Gran # (1.4-6.5) Lymph # (Auto) (1.2-3.4) [place] # (Auto) (0.1-0.6) Eos # (Auto) (0.0-0.7) Baso # (Auto) (0.0-2.0) K/mm3 PT 14.8 H (9.4-12.5) SECONDS INR 1.29 APTT 34.4 (25.1-36.5) Seconds pCO2 (35-45) mm/Hg pO2 (80-100) mm/Hg HCO3 (21-28) mmol/L ABG pH (7.35-7.45) ABG Total CO2 (22-28) mmol.L ABG O2 Saturation (95-98) % ABG O2 Content (15-23) ML/dl ABG Base Excess (-2.0-3.0) mmol/L ABG Hemoglobin (11.7-17.4) g/dL ABG Carboxyhemoglobin (0.5-1.5) % POC ABG HHb (Measured) (0-5) % ABG Methemoglobin (0.0-3.0) % ABG O2 Capacity (16-24) mL/dl Hgb O2 Saturation (95.0-98.0) % FiO2 % Sodium 139 (132-148) mmol/L Potassium 3.6 (3.6-5.0) mmol/L Chloride 108 H (98-107) mmol/L Carbon Dioxide 25 (21-33) mmol/L Anion Gap 10 (10-20) BUN 17 (7-21) mg/dL Creatinine 0.7 L (0.8-1.5) mg/dl Est GFR ( Amer) > 60 Est GFR (Non-Af Amer) > 60 Random Glucose 123 H (70-110) mg/dL Calcium 8.1 L (8.4-10.5) mg/dL Magnesium 2.2 (1.7-2.2) mg/dL Iron (45-180) ug/dL TIBC (261-462) ug/dL % Saturation (20-55) % Total Bilirubin 0.5 (0.2-1.3) mg/dL Direct Bilirubin 0.4 (0.0-0.4) mg/dL AST 46 (17-59) U/L ALT 30 (7-56) U/L Alkaline Phosphatase 144 H D (38-126) U/L Ammonia (9-33) umol/L Lactate Dehydrogenase (333-699) U/L Total Creatine Kinase (35-230) U/L Troponin I ng/mL NT-Pro-B Natriuret Pep (0-450) pg/mL Total Protein 6.5 (5.8-8.3) g/dL Albumin 2.8 L (3.0-4.8) g/dL Globulin 3.7 gm/dL Albumin/Globulin Ratio 0.7 L (1.1-1.8) Lipase 251 (23-300) U/L Urine Color (YELLOW) Urine Appearance (CLEAR) Urine pH (4.7-8.0) Ur Specific [place] (1.005-1.035) Urine Protein (<30 mg/dL) mg/dL Urine Glucose (UA) (NEGATIVE) mg/dL Urine Ketones (NEGATIVE) mg/dL Urine Blood (NEGATIVE) Urine Nitrate (NEGATIVE) Urine Bilirubin (NEGATIVE) Urine Urobilinogen (<1 E.U./dL) E.U./dL Ur Leukocyte Esterase (NEGATIVE) Vika/uL Influenza Typ A,B (EIA) (NEGATIVE) Blood Type AB POSITIVE Antibody Screen Negative Crossmatch See Detail BBK History Checked Patient has bt 07/23/18 07/23/18 Range/Units 17:34 17:34 WBC 5.6 (4.5-11.0) 10^3/uL RBC 2.73 L (3.5-6.1) 10^6/uL Hgb 5.1 L* D (14.0-18.0) g/dL Hct 18.1 L* (42.0-52.0) % MCV 66.3 L (80.0-105.0) fl MCH 18.7 L (25.0-35.0) pg MCHC 28.2 L (31.0-37.0) g/dl RDW 21.3 H (11.5-14.5) % Plt Count 193 (120.0-450.0) 10^3/uL MPV 9.0 (7.0-11.0) fl Gran % 47.3 L (50.0-68.0) % Lymph % (Auto) 28.6 (22.0-35.0) % [place] % (Auto) 16.0 H (1.0-6.0) % Eos % (Auto) 6.5 H (1.5-5.0) % Baso % (Auto) 1.6 (0.0-3.0) % Gran # 2.63 (1.4-6.5) Lymph # (Auto) 1.6 (1.2-3.4) [place] # (Auto) 0.9 H (0.1-0.6) Eos # (Auto) 0.4 (0.0-0.7) Baso # (Auto) 0.09 (0.0-2.0) K/mm3 PT (9.4-12.5) SECONDS INR APTT (25.1-36.5) Seconds pCO2 (35-45) mm/Hg pO2 (80-100) mm/Hg HCO3 (21-28) mmol/L ABG pH (7.35-7.45) ABG Total CO2 (22-28) mmol.L ABG O2 Saturation (95-98) % ABG O2 Content (15-23) ML/dl ABG Base Excess (-2.0-3.0) mmol/L ABG Hemoglobin (11.7-17.4) g/dL ABG Carboxyhemoglobin (0.5-1.5) % POC ABG HHb (Measured) (0-5) % ABG Methemoglobin (0.0-3.0) % ABG O2 Capacity (16-24) mL/dl Hgb O2 Saturation (95.0-98.0) % FiO2 % Sodium (132-148) mmol/L Potassium (3.6-5.0) mmol/L Chloride (98-107) mmol/L Carbon Dioxide (21-33) mmol/L Anion Gap (10-20) BUN (7-21) mg/dL Creatinine (0.8-1.5) mg/dl Est GFR ( Amer) Est GFR (Non-Af Amer) Random Glucose (70-110) mg/dL Calcium (8.4-10.5) mg/dL Magnesium (1.7-2.2) mg/dL Iron (45-180) ug/dL TIBC (261-462) ug/dL % Saturation (20-55) % Total Bilirubin (0.2-1.3) mg/dL Direct Bilirubin (0.0-0.4) mg/dL AST (17-59) U/L ALT (7-56) U/L Alkaline Phosphatase (38-126) U/L Ammonia < 9 L (9-33) umol/L Lactate Dehydrogenase (333-699) U/L Total Creatine Kinase (35-230) U/L Troponin I ng/mL NT-Pro-B Natriuret Pep (0-450) pg/mL Total Protein (5.8-8.3) g/dL Albumin (3.0-4.8) g/dL Globulin gm/dL Albumin/Globulin Ratio (1.1-1.8) Lipase (23-300) U/L Urine Color (YELLOW) Urine Appearance (CLEAR) Urine pH (4.7-8.0) Ur Specific [place] (1.005-1.035) Urine Protein (<30 mg/dL) mg/dL Urine Glucose (UA) (NEGATIVE) mg/dL Urine Ketones (NEGATIVE) mg/dL Urine Blood (NEGATIVE) Urine Nitrate (NEGATIVE) Urine Bilirubin (NEGATIVE) Urine Urobilinogen (<1 E.U./dL) E.U./dL Ur Leukocyte Esterase (NEGATIVE) Vika/uL Influenza Typ A,B (EIA) (NEGATIVE) Blood Type Antibody Screen Crossmatch BBK History Checked Laboratory Results - last 24 hr 07/23/18 07/23/18 07/23/18 17:34 17:34 17:34 WBC 5.6 RBC 2.73 L Hgb 5.1 L* D Hct 18.1 L* MCV 66.3 L MCH 18.7 L MCHC 28.2 L RDW 21.3 H Plt Count 193 MPV 9.0 Gran % 47.3 L Lymph % (Auto) 28.6 [place] % (Auto) 16.0 H Eos % (Auto) 6.5 H Baso % (Auto) 1.6 Gran # 2.63 Lymph # (Auto) 1.6 [place] # (Auto) 0.9 H Eos # (Auto) 0.4 Baso # (Auto) 0.09 PT 14.8 H INR 1.29 APTT 34.4 pCO2 pO2 HCO3 ABG pH ABG Total CO2 ABG O2 Saturation ABG O2 Content ABG Base Excess ABG Hemoglobin ABG Carboxyhemoglobin POC ABG HHb (Measured) ABG Methemoglobin ABG O2 Capacity Hgb O2 Saturation FiO2 Sodium Potassium Chloride Carbon Dioxide Anion Gap BUN Creatinine Est GFR ( Amer) Est GFR (Non-Af Amer) Random Glucose Calcium Magnesium Iron TIBC % Saturation Total Bilirubin Direct Bilirubin AST ALT Alkaline Phosphatase Ammonia < 9 L Lactate Dehydrogenase Total Creatine Kinase Troponin I NT-Pro-B Natriuret Pep Total Protein Albumin Globulin Albumin/Globulin Ratio Lipase Urine Color Urine Appearance Urine pH Ur Specific [place] Urine Protein Urine Glucose (UA) Urine Ketones Urine Blood Urine Nitrate Urine Bilirubin Urine Urobilinogen Ur Leukocyte Esterase Influenza Typ A,B (EIA) Blood Type Antibody Screen Crossmatch BBK History Checked 07/23/18 07/23/18 07/23/18 17:34 18:45 21:59 WBC RBC Hgb Hct MCV MCH MCHC RDW Plt Count MPV Gran % Lymph % (Auto) [place] % (Auto) Eos % (Auto) Baso % (Auto) Gran # Lymph # (Auto) [place] # (Auto) Eos # (Auto) Baso # (Auto) PT INR APTT pCO2 pO2 HCO3 ABG pH ABG Total CO2 ABG O2 Saturation ABG O2 Content ABG Base Excess ABG Hemoglobin ABG Carboxyhemoglobin POC ABG HHb (Measured) ABG Methemoglobin ABG O2 Capacity Hgb O2 Saturation FiO2 Sodium 139 Potassium 3.6 Chloride 108 H Carbon Dioxide 25 Anion Gap 10 BUN 17 Creatinine 0.7 L Est GFR ( Amer) > 60 Est GFR (Non-Af Amer) > 60 Random Glucose 123 H Calcium 8.1 L Magnesium 2.2 Iron TIBC % Saturation Total Bilirubin 0.5 Direct Bilirubin 0.4 AST 46 ALT 30 Alkaline Phosphatase 144 H D Ammonia Lactate Dehydrogenase 692 Total Creatine Kinase 158 Troponin I 0.01 NT-Pro-B Natriuret Pep 302 Total Protein 6.5 Albumin 2.8 L Globulin 3.7 Albumin/Globulin Ratio 0.7 L Lipase 251 Urine Color Urine Appearance Urine pH Ur Specific [place] Urine Protein Urine Glucose (UA) Urine Ketones Urine Blood Urine Nitrate Urine Bilirubin Urine Urobilinogen Ur Leukocyte Esterase Influenza Typ A,B (EIA) Blood Type AB POSITIVE Antibody Screen Negative Crossmatch See Detail BBK History Checked Patient has bt 07/23/18 07/23/18 07/24/18 21:59 23:21 02:38 WBC RBC Hgb Hct MCV MCH MCHC RDW Plt Count MPV Gran % Lymph % (Auto) [place] % (Auto) Eos % (Auto) Baso % (Auto) Gran # Lymph # (Auto) [place] # (Auto) Eos # (Auto) Baso # (Auto) PT INR APTT pCO2 pO2 HCO3 ABG pH ABG Total CO2 ABG O2 Saturation ABG O2 Content ABG Base Excess ABG Hemoglobin ABG Carboxyhemoglobin POC ABG HHb (Measured) ABG Methemoglobin ABG O2 Capacity Hgb O2 Saturation FiO2 Sodium Potassium Chloride Carbon Dioxide Anion Gap BUN Creatinine Est GFR ( Amer) Est GFR (Non-Af Amer) Random Glucose Calcium Magnesium Iron 10 L TIBC 364 % Saturation 3 L Total Bilirubin Direct Bilirubin AST ALT Alkaline Phosphatase Ammonia Lactate Dehydrogenase Total Creatine Kinase Troponin I NT-Pro-B Natriuret Pep Total Protein Albumin Globulin Albumin/Globulin Ratio Lipase Urine Color Yellow Urine Appearance Clear Urine pH 6.5 Ur Specific [place] <= 1.005 Urine Protein Negative Urine Glucose (UA) Negative Urine Ketones Negative Urine Blood Negative Urine Nitrate Negative Urine Bilirubin Negative Urine Urobilinogen 0.2 Ur Leukocyte Esterase Negative Influenza Typ A,B (EIA) Negative for flu a/b Blood Type Antibody Screen Crossmatch BBK History Checked 07/24/18 07/24/18 06:30 06:40 WBC 4.0 L D RBC 3.59 Hgb 7.9 L D Hct 26.3 L MCV 73.3 L D MCH 22.0 L MCHC 30.0 L RDW 23.0 H Plt Count 151 MPV Gran % 77.9 H Lymph % (Auto) 17.2 L [place] % (Auto) 4.7 Eos % (Auto) 0.0 L Baso % (Auto) 0.2 Gran # 3.12 Lymph # (Auto) 0.7 L [place] # (Auto) 0.2 Eos # (Auto) 0.0 Baso # (Auto) 0.01 PT INR APTT pCO2 32 L pO2 61.0 L HCO3 19.8 L ABG pH 7.40 ABG Total CO2 20.8 L ABG O2 Saturation 96.7 ABG O2 Content 9.3 L ABG Base Excess -4.5 L ABG Hemoglobin 7.1 L ABG Carboxyhemoglobin 2.8 H POC ABG HHb (Measured) 3.2 ABG Methemoglobin 1.2 ABG O2 Capacity 9.6 L Hgb O2 Saturation 92.8 L FiO2 21.0 Sodium Potassium Chloride Carbon Dioxide Anion Gap BUN Creatinine Est GFR ( Amer) Est GFR (Non-Af Amer) Random Glucose Calcium Magnesium Iron TIBC % Saturation Total Bilirubin Direct Bilirubin AST ALT Alkaline Phosphatase Ammonia Lactate Dehydrogenase Total Creatine Kinase Troponin I NT-Pro-B Natriuret Pep Total Protein Albumin Globulin Albumin/Globulin Ratio Lipase Urine Color Urine Appearance Urine pH Ur Specific [place] Urine Protein Urine Glucose (UA) Urine Ketones Urine Blood Urine Nitrate Urine Bilirubin Urine Urobilinogen Ur Leukocyte Esterase Influenza Typ A,B (EIA) Blood Type Antibody Screen Crossmatch BBK History Checked EKG/Cardiology Studies: Cardiology / EKG Studies 07/23/18 18:08 ELECTROCARDIOGRAM Stat Comment: Reason For Exam: abd pain gi bleed Review of Systems - Review of Systems Review of Systems: 12 point ROS completed and negative except as described in HPI. Critical Care Progress Note - Nutrition Nutrition: Nutrition Category Date Time Status NPO Diet [DIET] Diets 07/23/18 Breakfast Ordered Assessment/Plan - Assessment and Plan (Free Text) Assessment: 72 y/o male with PMH liver cirrhosis, GI blood, and esophageal varices, COPD, chronic anemia, alcohol abuse, HTN, HLD who presents with abdominal distension and poor oral intake. On admission, H/H is 5.1/18.1, CT A/P shows liver cirrhosis with extensive ascites. 2 units of RBCs were ordered with appropriate response. Patient currently in ICU for observation. Plan for diagnostic IR paracentesis today. Plan: Neuro -no confusion, dizziness, blurry vision -AAOx3 GI -Abdominal distension secondary to extensive ascites in the setting of alcoholic liver cirrhosis. R/O SBP. -Patient had multiple admissions with therapeutic paracentesis -started on protonix and octreotide drip -CT A/P: extensive ascites, liver cirrhosis -AST/ALT 46/30 -ammonia <9, albumin 2.8, PT/INR 14.8/1.29 -f/u blood cx -IR consulted Dr Tyler moore appreciated regarding paracentesis -GI consulted Dr Sandip moore appreciated. CLD. f/u HCV studies Pulm -SOB likely due to extensive ascites, COPD -EKG: sinus tachy, non specific ST/T wave abnormalities -CXR: No pleural effusion or pneumothorax, consistent with COPD -h/o COPD. currently no respiratory distress, expiratory lung wheezes bilaterally -Solu-medrol 40 q 8 -Azithromycin, Rocephin -Pulmicort, atrovent, brovana, xopenex q6h -O2 supp prn -f/u sputum cx -Pulmonology consulted. Dr Atkins Cardiovascular -H/H 5.1/18.1 on admission, appropriate response 7.9 in AM s/p 2 units of PRBC -monitor H/H -F/U iron studies Prophylaxis: DVT ppx: SCD GI ppx: protonix ggt Diet: CLD Patient seen, case reviewed and plan approved by Dr. Farah. Sanchez Colin, PGY-1 <Kleber Farah - Last Filed: 07/24/18 13:32> CCU Objective - Vital Signs / Intake & Output Intake and Output (Last 8hrs): Intake & Output 07/23/18 07/24/18 07/24/18 22:59 06:59 14:59 Intake Total 0 700 400 Output Total 1200 Balance 0 700 -800 Weight 110 lb 110 lb Intake: Oral 400 Blood Product 0 650 Red Blood Cells Cpd As1 325 Lr Unit [id number] Red Blood Cells Cpd As1 0 325 Lr Unit [id number] Other 50 Red Blood Cells Cpd As1 50 Lr Unit [id number] Output: Urine 1200 Urine, Voided 1200 Other: Voiding Method Urinal # Bowel Movements 3 - Medications Active Medications: Active Medications Generic Name Dose Route Start Last Admin Trade Name Freq PRN Reason Stop Dose Admin Arformoterol Tartrate 15 mcg 07/24/18 08:00 07/24/18 08:14 Brovana IH 15 mcg [id number] JUANITA Administration Budesonide 0.25 mg 07/24/18 08:00 07/24/18 08:14 Pulmicort Respules IH 0.25 mg [id number] JUANITA Administration Pantoprazole Sodium 40 mg in 100 mls @ 20 mls/hr 07/23/18 18:30 07/23/18 18:46 Protonix 40mg Ivpb IVPB 20 mls/hr .Q5H JUANITA Administration Octreotide Acetate 1,250 mcg/ 252.5 mls @ 10.1 mls/hr 07/23/18 18:45 07/23/18 20:00 Sodium Chloride IV 50 mcg/hr .Q24H JUANITA 10.1 mls/hr Administration Protocol 50 MCG/HR Ceftriaxone Sodium 1 gm in 100 mls @ 100 mls/hr 07/24/18 10:00 07/24/18 09:17 Rocephin 1 Gram Ivpb IVPB 100 mls/hr DAILY JUANITA Administration Protocol Azithromycin 250 mg/ Sodium 250 mls @ 167 mls/hr 07/24/18 10:00 07/24/18 09:24 Chloride IVPB 167 mls/hr DAILY JUANITA Administration Protocol Ipratropium [place] 0.5 mg 07/23/18 21:37 Atrovent IH [id number] PRN Shortness of Breath Levalbuterol HCl 0.63 mg 07/24/18 02:00 07/24/18 13:04 Xopenex IH 0.63 mg [id number] JUANITA Administration Methylprednisolone 40 mg 07/24/18 06:45 07/24/18 09:18 Solu-Medrol IVP 40 mg Q8 JUANITA Administration Multi-Ingredient Ointment 0 gm 07/23/18 21:45 Hydrophor Oint TOP Q6H JUANITA - Patient Studies Lab Studies: Lab Studies 07/24/18 07/24/18 07/24/18 Range/Units 06:40 06:30 06:30 WBC 4.0 L D (4.5-11.0) 10^3/uL RBC 3.59 (3.5-6.1) 10^6/uL Hgb 7.9 L D (14.0-18.0) g/dL Hct 26.3 L (42.0-52.0) % MCV 73.3 L D (80.0-105.0) fl MCH 22.0 L (25.0-35.0) pg MCHC 30.0 L (31.0-37.0) g/dl RDW 23.0 H (11.5-14.5) % Plt Count 151 (120.0-450.0) 10^3/uL MPV (7.0-11.0) fl Gran % 77.9 H (50.0-68.0) % Lymph % (Auto) 17.2 L (22.0-35.0) % [place] % (Auto) 4.7 (1.0-6.0) % Eos % (Auto) 0.0 L (1.5-5.0) % Baso % (Auto) 0.2 (0.0-3.0) % Gran # 3.12 (1.4-6.5) Lymph # (Auto) 0.7 L (1.2-3.4) [place] # (Auto) 0.2 (0.1-0.6) Eos # (Auto) 0.0 (0.0-0.7) Baso # (Auto) 0.01 (0.0-2.0) K/mm3 PT (9.4-12.5) SECONDS INR APTT (25.1-36.5) Seconds pCO2 32 L (35-45) mm/Hg pO2 61.0 L (80-100) mm/Hg HCO3 19.8 L (21-28) mmol/L ABG pH 7.40 (7.35-7.45) ABG Total CO2 20.8 L (22-28) mmol.L ABG O2 Saturation 96.7 (95-98) % ABG O2 Content 9.3 L (15-23) ML/dl ABG Base Excess -4.5 L (-2.0-3.0) mmol/L ABG Hemoglobin 7.1 L (11.7-17.4) g/dL ABG Carboxyhemoglobin 2.8 H (0.5-1.5) % POC ABG HHb (Measured) 3.2 (0-5) % ABG Methemoglobin 1.2 (0.0-3.0) % ABG O2 Capacity 9.6 L (16-24) mL/dl Hgb O2 Saturation 92.8 L (95.0-98.0) % FiO2 21.0 % Sodium 141 (132-148) mmol/L Potassium 3.8 (3.6-5.0) mmol/L Chloride 111 H (98-107) mmol/L Carbon Dioxide 21 (21-33) mmol/L Anion Gap 12 (10-20) BUN 14 (7-21) mg/dL Creatinine 0.7 L (0.8-1.5) mg/dl Est GFR ( Amer) > 60 Est GFR (Non-Af Amer) > 60 Random Glucose 179 H (70-110) mg/dL Calcium 7.7 L (8.4-10.5) mg/dL Phosphorus 2.6 (2.5-4.5) mg/dL Magnesium 2.1 (1.7-2.2) mg/dL Iron (45-180) ug/dL TIBC (261-462) ug/dL % Saturation (20-55) % Ferritin ng/mL Total Bilirubin 1.3 (0.2-1.3) mg/dL Direct Bilirubin (0.0-0.4) mg/dL AST 32 (17-59) U/L ALT 24 (7-56) U/L Alkaline Phosphatase 132 H (38-126) U/L Ammonia (9-33) umol/L Lactate Dehydrogenase (333-699) U/L Total Creatine Kinase (35-230) U/L Troponin I ng/mL NT-Pro-B Natriuret Pep (0-450) pg/mL Total Protein 6.5 (5.8-8.3) g/dL Albumin 2.7 L (3.0-4.8) g/dL Globulin 3.7 gm/dL Albumin/Globulin Ratio 0.7 L (1.1-1.8) Lipase (23-300) U/L Urine Color (YELLOW) Urine Appearance (CLEAR) Urine pH (4.7-8.0) Ur Specific [place] (1.005-1.035) Urine Protein (<30 mg/dL) mg/dL Urine Glucose (UA) (NEGATIVE) mg/dL Urine Ketones (NEGATIVE) mg/dL Urine Blood (NEGATIVE) Urine Nitrate (NEGATIVE) Urine Bilirubin (NEGATIVE) Urine Urobilinogen (<1 E.U./dL) E.U./dL Ur Leukocyte Esterase (NEGATIVE) Vika/uL Influenza Typ A,B (EIA) (NEGATIVE) Blood Type Antibody Screen Crossmatch BBK History Checked 07/24/18 07/23/18 07/23/18 Range/Units 02:38 23:21 21:59 WBC (4.5-11.0) 10^3/uL RBC (3.5-6.1) 10^6/uL Hgb (14.0-18.0) g/dL Hct (42.0-52.0) % MCV (80.0-105.0) fl MCH (25.0-35.0) pg MCHC (31.0-37.0) g/dl RDW (11.5-14.5) % Plt Count (120.0-450.0) 10^3/uL MPV (7.0-11.0) fl Gran % (50.0-68.0) % Lymph % (Auto) (22.0-35.0) % [place] % (Auto) (1.0-6.0) % Eos % (Auto) (1.5-5.0) % Baso % (Auto) (0.0-3.0) % Gran # (1.4-6.5) Lymph # (Auto) (1.2-3.4) [place] # (Auto) (0.1-0.6) Eos # (Auto) (0.0-0.7) Baso # (Auto) (0.0-2.0) K/mm3 PT (9.4-12.5) SECONDS INR APTT (25.1-36.5) Seconds pCO2 (35-45) mm/Hg pO2 (80-100) mm/Hg HCO3 (21-28) mmol/L ABG pH (7.35-7.45) ABG Total CO2 (22-28) mmol.L ABG O2 Saturation (95-98) % ABG O2 Content (15-23) ML/dl ABG Base Excess (-2.0-3.0) mmol/L ABG Hemoglobin (11.7-17.4) g/dL ABG Carboxyhemoglobin (0.5-1.5) % POC ABG HHb (Measured) (0-5) % ABG Methemoglobin (0.0-3.0) % ABG O2 Capacity (16-24) mL/dl Hgb O2 Saturation (95.0-98.0) % FiO2 % Sodium (132-148) mmol/L Potassium (3.6-5.0) mmol/L Chloride (98-107) mmol/L Carbon Dioxide (21-33) mmol/L Anion Gap (10-20) BUN (7-21) mg/dL Creatinine (0.8-1.5) mg/dl Est GFR ( Amer) Est GFR (Non-Af Amer) Random Glucose (70-110) mg/dL Calcium (8.4-10.5) mg/dL Phosphorus (2.5-4.5) mg/dL Magnesium (1.7-2.2) mg/dL Iron (45-180) ug/dL TIBC (261-462) ug/dL % Saturation (20-55) % Ferritin 7.9 ng/mL Total Bilirubin (0.2-1.3) mg/dL Direct Bilirubin (0.0-0.4) mg/dL AST (17-59) U/L ALT (7-56) U/L Alkaline Phosphatase (38-126) U/L Ammonia (9-33) umol/L Lactate Dehydrogenase (333-699) U/L Total Creatine Kinase (35-230) U/L Troponin I ng/mL NT-Pro-B Natriuret Pep (0-450) pg/mL Total Protein (5.8-8.3) g/dL Albumin (3.0-4.8) g/dL Globulin gm/dL Albumin/Globulin Ratio (1.1-1.8) Lipase (23-300) U/L Urine Color Yellow (YELLOW) Urine Appearance Clear (CLEAR) Urine pH 6.5 (4.7-8.0) Ur Specific [place] <= 1.005 (1.005-1.035) Urine Protein Negative (<30 mg/dL) mg/dL Urine Glucose (UA) Negative (NEGATIVE) mg/dL Urine Ketones Negative (NEGATIVE) mg/dL Urine Blood Negative (NEGATIVE) Urine Nitrate Negative (NEGATIVE) Urine Bilirubin Negative (NEGATIVE) Urine Urobilinogen 0.2 (<1 E.U./dL) E.U./dL Ur Leukocyte Esterase Negative (NEGATIVE) Vika/uL Influenza Typ A,B (EIA) Negative for flu a/b (NEGATIVE) Blood Type Antibody Screen Crossmatch BBK History Checked 07/23/18 07/23/18 07/23/18 Range/Units 21:59 21:59 18:45 WBC (4.5-11.0) 10^3/uL RBC (3.5-6.1) 10^6/uL Hgb (14.0-18.0) g/dL Hct (42.0-52.0) % MCV (80.0-105.0) fl MCH (25.0-35.0) pg MCHC (31.0-37.0) g/dl RDW (11.5-14.5) % Plt Count (120.0-450.0) 10^3/uL MPV (7.0-11.0) fl Gran % (50.0-68.0) % Lymph % (Auto) (22.0-35.0) % [place] % (Auto) (1.0-6.0) % Eos % (Auto) (1.5-5.0) % Baso % (Auto) (0.0-3.0) % Gran # (1.4-6.5) Lymph # (Auto) (1.2-3.4) [place] # (Auto) (0.1-0.6) Eos # (Auto) (0.0-0.7) Baso # (Auto) (0.0-2.0) K/mm3 PT (9.4-12.5) SECONDS INR APTT (25.1-36.5) Seconds pCO2 (35-45) mm/Hg pO2 (80-100) mm/Hg HCO3 (21-28) mmol/L ABG pH (7.35-7.45) ABG Total CO2 (22-28) mmol.L ABG O2 Saturation (95-98) % ABG O2 Content (15-23) ML/dl ABG Base Excess (-2.0-3.0) mmol/L ABG Hemoglobin (11.7-17.4) g/dL ABG Carboxyhemoglobin (0.5-1.5) % POC ABG HHb (Measured) (0-5) % ABG Methemoglobin (0.0-3.0) % ABG O2 Capacity (16-24) mL/dl Hgb O2 Saturation (95.0-98.0) % FiO2 % Sodium (132-148) mmol/L Potassium (3.6-5.0) mmol/L Chloride (98-107) mmol/L Carbon Dioxide (21-33) mmol/L Anion Gap (10-20) BUN (7-21) mg/dL Creatinine (0.8-1.5) mg/dl Est GFR ( Amer) Est GFR (Non-Af Amer) Random Glucose (70-110) mg/dL Calcium (8.4-10.5) mg/dL Phosphorus (2.5-4.5) mg/dL Magnesium (1.7-2.2) mg/dL Iron 10 L (45-180) ug/dL TIBC 364 (261-462) ug/dL % Saturation 3 L (20-55) % Ferritin ng/mL Total Bilirubin (0.2-1.3) mg/dL Direct Bilirubin (0.0-0.4) mg/dL AST (17-59) U/L ALT (7-56) U/L Alkaline Phosphatase (38-126) U/L Ammonia (9-33) umol/L Lactate Dehydrogenase 692 (333-699) U/L Total Creatine Kinase 158 (35-230) U/L Troponin I 0.01 ng/mL NT-Pro-B Natriuret Pep 302 (0-450) pg/mL Total Protein (5.8-8.3) g/dL Albumin (3.0-4.8) g/dL Globulin gm/dL Albumin/Globulin Ratio (1.1-1.8) Lipase (23-300) U/L Urine Color (YELLOW) Urine Appearance (CLEAR) Urine pH (4.7-8.0) Ur Specific [place] (1.005-1.035) Urine Protein (<30 mg/dL) mg/dL Urine Glucose (UA) (NEGATIVE) mg/dL Urine Ketones (NEGATIVE) mg/dL Urine Blood (NEGATIVE) Urine Nitrate (NEGATIVE) Urine Bilirubin (NEGATIVE) Urine Urobilinogen (<1 E.U./dL) E.U./dL Ur Leukocyte Esterase (NEGATIVE) Vika/uL Influenza Typ A,B (EIA) (NEGATIVE) Blood Type AB POSITIVE Antibody Screen Negative Crossmatch See Detail BBK History Checked Patient has bt 07/23/18 07/23/18 07/23/18 Range/Units 17:34 17:34 17:34 WBC 5.6 (4.5-11.0) 10^3/uL RBC 2.73 L (3.5-6.1) 10^6/uL Hgb 5.1 L* D (14.0-18.0) g/dL Hct 18.1 L* (42.0-52.0) % MCV 66.3 L (80.0-105.0) fl MCH 18.7 L (25.0-35.0) pg MCHC 28.2 L (31.0-37.0) g/dl RDW 21.3 H (11.5-14.5) % Plt Count 193 (120.0-450.0) 10^3/uL MPV 9.0 (7.0-11.0) fl Gran % 47.3 L (50.0-68.0) % Lymph % (Auto) 28.6 (22.0-35.0) % [place] % (Auto) 16.0 H (1.0-6.0) % Eos % (Auto) 6.5 H (1.5-5.0) % Baso % (Auto) 1.6 (0.0-3.0) % Gran # 2.63 (1.4-6.5) Lymph # (Auto) 1.6 (1.2-3.4) [place] # (Auto) 0.9 H (0.1-0.6) Eos # (Auto) 0.4 (0.0-0.7) Baso # (Auto) 0.09 (0.0-2.0) K/mm3 PT 14.8 H (9.4-12.5) SECONDS INR 1.29 APTT 34.4 (25.1-36.5) Seconds pCO2 (35-45) mm/Hg pO2 (80-100) mm/Hg HCO3 (21-28) mmol/L ABG pH (7.35-7.45) ABG Total CO2 (22-28) mmol.L ABG O2 Saturation (95-98) % ABG O2 Content (15-23) ML/dl ABG Base Excess (-2.0-3.0) mmol/L ABG Hemoglobin (11.7-17.4) g/dL ABG Carboxyhemoglobin (0.5-1.5) % POC ABG HHb (Measured) (0-5) % ABG Methemoglobin (0.0-3.0) % ABG O2 Capacity (16-24) mL/dl Hgb O2 Saturation (95.0-98.0) % FiO2 % Sodium 139 (132-148) mmol/L Potassium 3.6 (3.6-5.0) mmol/L Chloride 108 H (98-107) mmol/L Carbon Dioxide 25 (21-33) mmol/L Anion Gap 10 (10-20) BUN 17 (7-21) mg/dL Creatinine 0.7 L (0.8-1.5) mg/dl Est GFR ( Amer) > 60 Est GFR (Non-Af Amer) > 60 Random Glucose 123 H (70-110) mg/dL Calcium 8.1 L (8.4-10.5) mg/dL Phosphorus (2.5-4.5) mg/dL Magnesium 2.2 (1.7-2.2) mg/dL Iron (45-180) ug/dL TIBC (261-462) ug/dL % Saturation (20-55) % Ferritin ng/mL Total Bilirubin 0.5 (0.2-1.3) mg/dL Direct Bilirubin 0.4 (0.0-0.4) mg/dL AST 46 (17-59) U/L ALT 30 (7-56) U/L Alkaline Phosphatase 144 H D (38-126) U/L Ammonia (9-33) umol/L Lactate Dehydrogenase (333-699) U/L Total Creatine Kinase (35-230) U/L Troponin I ng/mL NT-Pro-B Natriuret Pep (0-450) pg/mL Total Protein 6.5 (5.8-8.3) g/dL Albumin 2.8 L (3.0-4.8) g/dL Globulin 3.7 gm/dL Albumin/Globulin Ratio 0.7 L (1.1-1.8) Lipase 251 (23-300) U/L Urine Color (YELLOW) Urine Appearance (CLEAR) Urine pH (4.7-8.0) Ur Specific [place] (1.005-1.035) Urine Protein (<30 mg/dL) mg/dL Urine Glucose (UA) (NEGATIVE) mg/dL Urine Ketones (NEGATIVE) mg/dL Urine Blood (NEGATIVE) Urine Nitrate (NEGATIVE) Urine Bilirubin (NEGATIVE) Urine Urobilinogen (<1 E.U./dL) E.U./dL Ur Leukocyte Esterase (NEGATIVE) Vika/uL Influenza Typ A,B (EIA) (NEGATIVE) Blood Type Antibody Screen Crossmatch BBK History Checked 07/23/18 Range/Units 17:34 WBC (4.5-11.0) 10^3/uL RBC (3.5-6.1) 10^6/uL Hgb (14.0-18.0) g/dL Hct (42.0-52.0) % MCV (80.0-105.0) fl MCH (25.0-35.0) pg MCHC (31.0-37.0) g/dl RDW (11.5-14.5) % Plt Count (120.0-450.0) 10^3/uL MPV (7.0-11.0) fl Gran % (50.0-68.0) % Lymph % (Auto) (22.0-35.0) % [place] % (Auto) (1.0-6.0) % Eos % (Auto) (1.5-5.0) % Baso % (Auto) (0.0-3.0) % Gran # (1.4-6.5) Lymph # (Auto) (1.2-3.4) [place] # (Auto) (0.1-0.6) Eos # (Auto) (0.0-0.7) Baso # (Auto) (0.0-2.0) K/mm3 PT (9.4-12.5) SECONDS INR APTT (25.1-36.5) Seconds pCO2 (35-45) mm/Hg pO2 (80-100) mm/Hg HCO3 (21-28) mmol/L ABG pH (7.35-7.45) ABG Total CO2 (22-28) mmol.L ABG O2 Saturation (95-98) % ABG O2 Content (15-23) ML/dl ABG Base Excess (-2.0-3.0) mmol/L ABG Hemoglobin (11.7-17.4) g/dL ABG Carboxyhemoglobin (0.5-1.5) % POC ABG HHb (Measured) (0-5) % ABG Methemoglobin (0.0-3.0) % ABG O2 Capacity (16-24) mL/dl Hgb O2 Saturation (95.0-98.0) % FiO2 % Sodium (132-148) mmol/L Potassium (3.6-5.0) mmol/L Chloride (98-107) mmol/L Carbon Dioxide (21-33) mmol/L Anion Gap (10-20) BUN (7-21) mg/dL Creatinine (0.8-1.5) mg/dl Est GFR ( Amer) Est GFR (Non-Af Amer) Random Glucose (70-110) mg/dL Calcium (8.4-10.5) mg/dL Phosphorus (2.5-4.5) mg/dL Magnesium (1.7-2.2) mg/dL Iron (45-180) ug/dL TIBC (261-462) ug/dL % Saturation (20-55) % Ferritin ng/mL Total Bilirubin (0.2-1.3) mg/dL Direct Bilirubin (0.0-0.4) mg/dL AST (17-59) U/L ALT (7-56) U/L Alkaline Phosphatase (38-126) U/L Ammonia < 9 L (9-33) umol/L Lactate Dehydrogenase (333-699) U/L Total Creatine Kinase (35-230) U/L Troponin I ng/mL NT-Pro-B Natriuret Pep (0-450) pg/mL Total Protein (5.8-8.3) g/dL Albumin (3.0-4.8) g/dL Globulin gm/dL Albumin/Globulin Ratio (1.1-1.8) Lipase (23-300) U/L Urine Color (YELLOW) Urine Appearance (CLEAR) Urine pH (4.7-8.0) Ur Specific [place] (1.005-1.035) Urine Protein (<30 mg/dL) mg/dL Urine Glucose (UA) (NEGATIVE) mg/dL Urine Ketones (NEGATIVE) mg/dL Urine Blood (NEGATIVE) Urine Nitrate (NEGATIVE) Urine Bilirubin (NEGATIVE) Urine Urobilinogen (<1 E.U./dL) E.U./dL Ur Leukocyte Esterase (NEGATIVE) Vika/uL Influenza Typ A,B (EIA) (NEGATIVE) Blood Type Antibody Screen Crossmatch BBK History Checked Laboratory Results - last 24 hr 07/23/18 07/23/18 07/23/18 17:34 17:34 17:34 WBC 5.6 RBC 2.73 L Hgb 5.1 L* D Hct 18.1 L* MCV 66.3 L MCH 18.7 L MCHC 28.2 L RDW 21.3 H Plt Count 193 MPV 9.0 Gran % 47.3 L Lymph % (Auto) 28.6 [place] % (Auto) 16.0 H Eos % (Auto) 6.5 H Baso % (Auto) 1.6 Gran # 2.63 Lymph # (Auto) 1.6 [place] # (Auto) 0.9 H Eos # (Auto) 0.4 Baso # (Auto) 0.09 PT 14.8 H INR 1.29 APTT 34.4 pCO2 pO2 HCO3 ABG pH ABG Total CO2 ABG O2 Saturation ABG O2 Content ABG Base Excess ABG Hemoglobin ABG Carboxyhemoglobin POC ABG HHb (Measured) ABG Methemoglobin ABG O2 Capacity Hgb O2 Saturation FiO2 Sodium Potassium Chloride Carbon Dioxide Anion Gap BUN Creatinine Est GFR ( Amer) Est GFR (Non-Af Amer) Random Glucose Calcium Phosphorus Magnesium Iron TIBC % Saturation Ferritin Total Bilirubin Direct Bilirubin AST ALT Alkaline Phosphatase Ammonia < 9 L Lactate Dehydrogenase Total Creatine Kinase Troponin I NT-Pro-B Natriuret Pep Total Protein Albumin Globulin Albumin/Globulin Ratio Lipase Urine Color Urine Appearance Urine pH Ur Specific [place] Urine Protein Urine Glucose (UA) Urine Ketones Urine Blood Urine Nitrate Urine Bilirubin Urine Urobilinogen Ur Leukocyte Esterase Influenza Typ A,B (EIA) Blood Type Antibody Screen Crossmatch BBK History Checked 07/23/18 07/23/18 07/23/18 17:34 18:45 21:59 WBC RBC Hgb Hct MCV MCH MCHC RDW Plt Count MPV Gran % Lymph % (Auto) [place] % (Auto) Eos % (Auto) Baso % (Auto) Gran # Lymph # (Auto) [place] # (Auto) Eos # (Auto) Baso # (Auto) PT INR APTT pCO2 pO2 HCO3 ABG pH ABG Total CO2 ABG O2 Saturation ABG O2 Content ABG Base Excess ABG Hemoglobin ABG Carboxyhemoglobin POC ABG HHb (Measured) ABG Methemoglobin ABG O2 Capacity Hgb O2 Saturation FiO2 Sodium 139 Potassium 3.6 Chloride 108 H Carbon Dioxide 25 Anion Gap 10 BUN 17 Creatinine 0.7 L Est GFR ( Amer) > 60 Est GFR (Non-Af Amer) > 60 Random Glucose 123 H Calcium 8.1 L Phosphorus Magnesium 2.2 Iron TIBC % Saturation Ferritin Total Bilirubin 0.5 Direct Bilirubin 0.4 AST 46 ALT 30 Alkaline Phosphatase 144 H D Ammonia Lactate Dehydrogenase 692 Total Creatine Kinase 158 Troponin I 0.01 NT-Pro-B Natriuret Pep 302 Total Protein 6.5 Albumin 2.8 L Globulin 3.7 Albumin/Globulin Ratio 0.7 L Lipase 251 Urine Color Urine Appearance Urine pH Ur Specific [place] Urine Protein Urine Glucose (UA) Urine Ketones Urine Blood Urine Nitrate Urine Bilirubin Urine Urobilinogen Ur Leukocyte Esterase Influenza Typ A,B (EIA) Blood Type AB POSITIVE Antibody Screen Negative Crossmatch See Detail BBK History Checked Patient has bt 07/23/18 07/23/18 07/23/18 21:59 21:59 23:21 WBC RBC Hgb Hct MCV MCH MCHC RDW Plt Count MPV Gran % Lymph % (Auto) [place] % (Auto) Eos % (Auto) Baso % (Auto) Gran # Lymph # (Auto) [place] # (Auto) Eos # (Auto) Baso # (Auto) PT INR APTT pCO2 pO2 HCO3 ABG pH ABG Total CO2 ABG O2 Saturation ABG O2 Content ABG Base Excess ABG Hemoglobin ABG Carboxyhemoglobin POC ABG HHb (Measured) ABG Methemoglobin ABG O2 Capacity Hgb O2 Saturation FiO2 Sodium Potassium Chloride Carbon Dioxide Anion Gap BUN Creatinine Est GFR ( Amer) Est GFR (Non-Af Amer) Random Glucose Calcium Phosphorus Magnesium Iron 10 L TIBC 364 % Saturation 3 L Ferritin 7.9 Total Bilirubin Direct Bilirubin AST ALT Alkaline Phosphatase Ammonia Lactate Dehydrogenase Total Creatine Kinase Troponin I NT-Pro-B Natriuret Pep Total Protein Albumin Globulin Albumin/Globulin Ratio Lipase Urine Color Yellow Urine Appearance Clear Urine pH 6.5 Ur Specific [place] <= 1.005 Urine Protein Negative Urine Glucose (UA) Negative Urine Ketones Negative Urine Blood Negative Urine Nitrate Negative Urine Bilirubin Negative Urine Urobilinogen 0.2 Ur Leukocyte Esterase Negative Influenza Typ A,B (EIA) Blood Type Antibody Screen Crossmatch BBK History Checked 07/24/18 07/24/18 07/24/18 02:38 06:30 06:30 WBC 4.0 L D RBC 3.59 Hgb 7.9 L D Hct 26.3 L MCV 73.3 L D MCH 22.0 L MCHC 30.0 L RDW 23.0 H Plt Count 151 MPV Gran % 77.9 H Lymph % (Auto) 17.2 L [place] % (Auto) 4.7 Eos % (Auto) 0.0 L Baso % (Auto) 0.2 Gran # 3.12 Lymph # (Auto) 0.7 L [place] # (Auto) 0.2 Eos # (Auto) 0.0 Baso # (Auto) 0.01 PT INR APTT pCO2 pO2 HCO3 ABG pH ABG Total CO2 ABG O2 Saturation ABG O2 Content ABG Base Excess ABG Hemoglobin ABG Carboxyhemoglobin POC ABG HHb (Measured) ABG Methemoglobin ABG O2 Capacity Hgb O2 Saturation FiO2 Sodium 141 Potassium 3.8 Chloride 111 H Carbon Dioxide 21 Anion Gap 12 BUN 14 Creatinine 0.7 L Est GFR ( Amer) > 60 Est GFR (Non-Af Amer) > 60 Random Glucose 179 H Calcium 7.7 L Phosphorus 2.6 Magnesium 2.1 Iron TIBC % Saturation Ferritin Total Bilirubin 1.3 Direct Bilirubin AST 32 ALT 24 Alkaline Phosphatase 132 H Ammonia Lactate Dehydrogenase Total Creatine Kinase Troponin I NT-Pro-B Natriuret Pep Total Protein 6.5 Albumin 2.7 L Globulin 3.7 Albumin/Globulin Ratio 0.7 L Lipase Urine Color Urine Appearance Urine pH Ur Specific [place] Urine Protein Urine Glucose (UA) Urine Ketones Urine Blood Urine Nitrate Urine Bilirubin Urine Urobilinogen Ur Leukocyte Esterase Influenza Typ A,B (EIA) Negative for flu a/b Blood Type Antibody Screen Crossmatch BBK History Checked 07/24/18 06:40 WBC RBC Hgb Hct MCV MCH MCHC RDW Plt Count MPV Gran % Lymph % (Auto) [place] % (Auto) Eos % (Auto) Baso % (Auto) Gran # Lymph # (Auto) [place] # (Auto) Eos # (Auto) Baso # (Auto) PT INR APTT pCO2 32 L pO2 61.0 L HCO3 19.8 L ABG pH 7.40 ABG Total CO2 20.8 L ABG O2 Saturation 96.7 ABG O2 Content 9.3 L ABG Base Excess -4.5 L ABG Hemoglobin 7.1 L ABG Carboxyhemoglobin 2.8 H POC ABG HHb (Measured) 3.2 ABG Methemoglobin 1.2 ABG O2 Capacity 9.6 L Hgb O2 Saturation 92.8 L FiO2 21.0 Sodium Potassium Chloride Carbon Dioxide Anion Gap BUN Creatinine Est GFR ( Amer) Est GFR (Non-Af Amer) Random Glucose Calcium Phosphorus Magnesium Iron TIBC % Saturation Ferritin Total Bilirubin Direct Bilirubin AST ALT Alkaline Phosphatase Ammonia Lactate Dehydrogenase Total Creatine Kinase Troponin I NT-Pro-B Natriuret Pep Total Protein Albumin Globulin Albumin/Globulin Ratio Lipase Urine Color Urine Appearance Urine pH Ur Specific [place] Urine Protein Urine Glucose (UA) Urine Ketones Urine Blood Urine Nitrate Urine Bilirubin Urine Urobilinogen Ur Leukocyte Esterase Influenza Typ A,B (EIA) Blood Type Antibody Screen Crossmatch BBK History Checked Radiology Impressions: Radiology Impressions Chest X-Ray 07/23/18 17:21 IMPRESSION: No active disease. Abdomen/Pelvis CT 07/23/18 18:28 IMPRESSION: Severe ascites. Cirrhosis. Cholelithiasis. EKG/Cardiology Studies: Cardiology / EKG Studies 07/23/18 18:08 ELECTROCARDIOGRAM Stat Comment: Reason For Exam: abd pain gi bleed Critical Care Progress Note - Nutrition Nutrition: Nutrition Category Date Time Status Liquid Diet [DIET] Diets 07/24/18 Breakfast Ordered NPO Diet [DIET] Diets 07/25/18 Breakfast Ordered Assessment/Plan - Assessment and Plan (Free Text) Assessment: Patient seen and examined on rounds, with resident, agree with note with following additions/exceptions: Patient is 72yo male with PMH liver cirrhosis, GI blood, and esophageal varices, COPD, chronic anemia, alcohol abuse, HTN, HLD who presents with abdominal distension, poor oral intake, Anemia, GIB, and COPD exacerbation. Pt currently afebrile, SBP 150s, in NAD, comfortable Pt transfused 2u PRBC last night, appropriate response of HH On PPI, Octreotide drip GIB Anemia Liver Cirrhosis Ascites COPD exacerbation HTN HLD Recommend: - supp o2 as needed, duonebs PRN - Solumedrol 40mg IV Q8hr - Rocephin, Azithro - panculture, UCx, BCx, check Procal - Paracentesis - NPO - PPI drip - Octreotide drip - Follow up GI, will need EGD - monitor CBC - GI ppx - DVT ppx, SCDs - Monitor in MICU Critical care time 35 minutes
[2018-07-24 07:47] LABS: ALB/GLOB RATIO 0.7 (1.1-1.8); ALBUMIN 2.7 g/dL (3.0-4.8); ALT/SGPT 24 U/L (7-56); AST/SGOT 32 U/L (17-59); BLOOD UREA NITROGEN 14 mg/dL (7-21); CALCIUM 7.7 mg/dL (8.4-10.5); GFR NON-AFRICAN AMERICAN > 60
[2018-07-24] MEDS: Arformoterol 15 mcg/2 ml Inh Sol IH SCH ×2 (08:14→20:19)
[2018-07-24] MEDS: Levalbuterol 0.63 MG/3 ML Inhal Soln UD IH SCH ×4 (08:14→20:19)
[2018-07-24] MEDS: Budesonide 0.25 mg/2 ml Inhal Susp UD IH SCH ×2 (08:14→20:19)
--- NOTE | 2018-07-24 08:18 | HP ---
DATE OF EXAM: 07/23/2018 The patient was seen and examined at bedside on 07/23/2018. CHIEF COMPLAINT: Abdominal pain and shortness of breath. HISTORY OF PRESENT ILLNESS: Mr. Carrion is 72-year-old patient with history of liver cirrhosis, history of previous ascites, esophageal varices, history of drinking, very noncompliant for office visits and medications, came to the emergency department complaining of abdominal distention. Since 10 days, the patient informed worsening symptoms; for the past few days promoting him to go for ER for medical evaluation. The patient reports similar symptoms in the past with surgical intervention. The patient is a very poor historian, but I know him from previous multiple admissions. The patient denies any fevers or chills. No hematuria or hematochezia. No headache or dizziness. PAST MEDICAL HISTORY: Cirrhosis of the liver; ethanol abuse; COPD; ascites; esophageal varices ; previous cerebrovascular accident; blind; cataract surgery; deafness from left ear; glaucoma in the left eye; GERD; dyspepsia; history of GI bleeding, depression; history of paracentesis, ultrasound-guided; hernia repair in [facility]. FAMILY HISTORY: Father and mother noncontributory. HABITS: No smoking. No drugs. No ethanol. ALLERGIES: THE PATIENT NOT ALLERGIC WITH ANY MEDICATIONS. HOME MEDICATIONS: Timolol and Zoloft. REVIEW OF SYSTEMS: The patient was seen and examined at bedside, having abdominal distension. No fevers. No chills. No hematuria or hematochezia. No headache. No dizziness. Getting shortness of breath with abdominal distension. PHYSICAL EXAMINATION: VITAL SIGNS: Temperature 98.1, respiratory rate 18, pulse 80, blood pressure 132/75. HEENT: Head normocephalic, atraumatic. Eyes PERRLA. Extraocular muscles intact. Conjunctivae clear. Nose patent. Mucous membrane moist. NECK: Supple. No carotid bruit. No JVD or thyromegaly. CHEST: Bilaterally symmetrical. HEART: S1 and S2 positive. LUNGS: Clear to auscultation. ABDOMEN: Soft. Fluid thrill is positive. Bowel sounds positive. EXTREMITIES: No edema. No cyanosis. NEUROLOGIC: The patient is awake and alert. Follows simple commands. LABORATORY DATA: White blood cell 5.6, hemoglobin 5.1, hematocrit 18.1, platelets 193. Sodium 139, potassium 3.6, chloride 106, BUN 17, creatinine 0.7, glucose 123. ASSESSMENT AND PLAN: Mr. Carrion 72-year-old male with severe anemia, symptomatic; hyperchloremia; hyperglycemia; hypocalcemia; iron deficiency. Last time, the patient got paracentesis. Gastrointestinal consult called with Dr. Oropeza, admitted the patient to the unit. Dr. Juan Miguel Scott consult called; the patient need again paracentesis. Gastrointestinal and deep venous thrombosis prophylaxes. Restarted home medications. We will follow up. Evie Ponce MD
--- NOTE | 2018-07-24 08:23 | CT ---
Date of service: 07/23/2018 PROCEDURE: CT Abdomen and Pelvis with and without intravenous contrast HISTORY: abd distention, anemia, h/o of cirrhosis COMPARISON: None. TECHNIQUE: Axial images of the abdomen were obtained in the pre contrast, portal venous and delayed phases of enhancement. Coronal and sagittal reformats were generated. Contrast dose: Radiation dose: Total exam DLP = 379.06 mGy-cm. This CT exam was performed using one or more of the following dose reduction techniques: Automated exposure control, adjustment of the mA and/or kV according to patient size, and/or use of iterative reconstruction technique. FINDINGS: LOWER THORAX: Unremarkable. LIVER: Cirrhotic liver. No evidence of mass. GALLBLADDER AND BILE DUCTS: Gallstones. PANCREAS: Unremarkable. No gross lesion or ductal dilatation. SPLEEN: Unremarkable. ADRENALS: Unremarkable. No mass. KIDNEYS AND URETERS: Unremarkable. No hydronephrosis. No solid mass. VASCULATURE: Unremarkable. No aortic aneurysm. No aortic atherosclerotic calcification or mural plaque present. BOWEL: Unremarkable. No obstruction. No gross mural thickening. APPENDIX: Normal appendix. PERITONEUM: Severe ascites. LYMPH NODES: Unremarkable. No enlarged lymph nodes. BLADDER: Unremarkable. REPRODUCTIVE: Unremarkable. BONES: No acute fracture. OTHER FINDINGS: None. IMPRESSION: Severe ascites. Cirrhosis. Cholelithiasis.
--- NOTE | 2018-07-24 09:11 | CARD ---
APPROVED REPORT Date of service: 07/23/2018 EKG Measurement Heart [id number] CO 130P [id number] <Conclusion> Sinus tachycardia Low voltage QRS QS in V 1, possible septal OK, old Nonspecific ST and T wave abnormality
[2018-07-24] MEDS: cefTRIAXone 1 gm 1 GM/100 ML BAG IVPB SCH (09:17)
--- NOTE | 2018-07-24 09:17 | RAD ---
Date of service: 07/23/2018 HISTORY: abd pain COMPARISON: 04/30/2018 FINDINGS: LUNGS: No active pulmonary disease. PLEURA: No significant pleural effusion identified, no pneumothorax apparent. CARDIOVASCULAR: Aortic calcification Normal cardiac size. No pulmonary vascular congestion. OSSEOUS STRUCTURES: No significant abnormalities. VISUALIZED UPPER ABDOMEN: Normal. OTHER FINDINGS: None. IMPRESSION: No active disease.
[2018-07-24] MEDS: MethylPREDNISolone 40 mg Vial IVP SCH ×3 (09:18→22:30)
[2018-07-24] MEDS: Azithromycin 250 MG in Sodium Chloride 0.9% 250 ML IVPB SCH (09:24)
--- NOTE | 2018-07-24 11:25 | CP.PCM.CON ---
History of Present Illness - History of Present Illness History of Present Illness: PGY6 GI Fellow Consult Note Patient is a 72yo male with PMHx significant for decompensated EtOH cirrhosis c/b ascites and bleeding esophageal varices, h/o HBV and HCV exposure, EtOH abuse, COPD and tobacco abuse, blindness and decreased hearing acuity who presented to the ED for progressive distention of the abdomen. States that over the last week he has noticed a progressive worsening of abdominal distention and development of pain, thus he came to the ED for evaluation. Patient is known to be cirrhotic but does not comply with recommendations for medications or outpatient follow up. As such, he is not on diuretic or beta-jagdeep therapy at present time. Last known paracentesis was 3 months ago with 1.2L of bloody ascitic fluid removed. Denies recent EtOH intake. Our service was consulted for concern of GI bleeding. Patient's HGB was 5.1 on admission, down from 10 three months ago. He cannot confirm the presence of melena/hematochezia given his visual impairment. Denies dizziness, lightheadedness, nausea, vomiting, weight loss, fever, chills. 12 system ROS performed and negative except where stated PMHx: See HPI PSHx: Left hip FHx: Discussed with patient and denies any significant family history Social: Former tobacco and EtOH abuse per patient (40+ year use), denies illicit drug use Endo: 04/21 - EGD - Grade 2 esophageal varices with recent hemorrhage s/p EVL 10/19 - Colonoscopy - AVMs, diverticulosis, polyps Past Patient History - Infectious Disease Hx of Infectious Diseases: None - Tetanus Immunizations Tetanus Immunization: Unknown - Past Social History Smoking Status: Light Smoker < 10 Cigarettes Daily - CARDIAC Hx Cardiac Disorders: Yes Hx Hypertension: Yes - PULMONARY Hx Chronic Obstructive Pulmonary Disease (COPD): Yes - NEUROLOGICAL HX Cerebrovascular Accident: Yes - HEENT Hx HEENT Problems: Yes Hx Blind: Yes Hx Cataracts: Yes (both eyes) Hx Deafness: Yes (left ear) Hx Glaucoma: Yes (left eye) - RENAL Hx Chronic Kidney Disease: No - ENDOCRINE/METABOLIC Hx Endocrine Disorders: No - HEMATOLOGICAL/ONCOLOGICAL Hx Blood Disorders: No Hx Cirrhosis: Yes - INTEGUMENTARY Hx Dermatological Problems: No - MUSCULOSKELETAL/RHEUMATOLOGICAL Hx Arthritis: Yes - GASTROINTESTINAL Hx Gastrointestinal Disorders: Yes Other/Comment: GI Bleed; Esophageal varices - GENITOURINARY/GYNECOLOGICAL Hx Genitourinary Disorders: No - PSYCHIATRIC Hx Psychophysiologic Disorder: Yes Hx Depression: Yes Hx Psychosis: Yes Hx Substance Use: No - SURGICAL HISTORY Hx Orthopedic Surgery: Yes (l hip fx sx 10/20/16) Other/Comment: us guided paracenthesis 06/23/14. hernia repair 04/2018 - ANESTHESIA Hx Anesthesia: Yes Hx Anesthesia Reactions: No Hx Malignant Hyperthermia: No Meds Allergies/Adverse Reactions: Allergies Allergy/AdvReac Type Severity Reaction Status Date / Time No Known Allergies Allergy Verified 04/18/17 13:39 - Medications Medications: Current Medications Arformoterol Tartrate (Brovana) 15 mcg IH [id number] JUANITA Last Admin: 07/24/18 08:14 Dose: 15 mcg Budesonide (Pulmicort Respules) 0.25 mg IH [id number] JUANITA Last Admin: 07/24/18 08:14 Dose: 0.25 mg Pantoprazole Sodium (Protonix 40mg Ivpb) 40 mg in 100 mls @ 20 mls/hr IVPB .Q5H JUANITA Last Admin: 07/23/18 18:46 Dose: 20 mls/hr Octreotide Acetate 1,250 mcg/ (Sodium Chloride) 252.5 mls @ 10.1 mls/hr IV .Q24H JUANITA; Protocol Last Admin: 07/23/18 20:00 Dose: 50 mcg/hr, 10.1 mls/hr Ceftriaxone Sodium (Rocephin 1 Gram Ivpb) 1 gm in 100 mls @ 100 mls/hr IVPB DAILY JUANITA; Protocol Last Admin: 07/24/18 09:17 Dose: 100 mls/hr Azithromycin 250 mg/ Sodium (Chloride) 250 mls @ 167 mls/hr IVPB DAILY JUANITA; Protocol Last Admin: 07/24/18 09:24 Dose: 167 mls/hr Ipratropium [place] (Atrovent) 0.5 mg IH [id number] PRN PRN Reason: Shortness of Breath Levalbuterol HCl (Xopenex) 0.63 mg IH [id number] JUANITA Last Admin: 07/24/18 08:14 Dose: 0.63 mg Methylprednisolone (Solu-Medrol) 40 mg IVP Q8 JUANITA Last Admin: 07/24/18 09:18 Dose: 40 mg Multi-Ingredient Ointment (Hydrophor Oint) 0 gm TOP Q6H [facility] Physical Exam - Constitutional Appears: No Acute Distress, Chronically Ill - Eye Exam Additional comments: blind - ENT Exam Additional comments: right ear decreased acuity, deaf in left ear - Respiratory Exam Respiratory Exam: Rales. absent: Clear to Auscultation Bilateral, Rhonchi, Wheezes - Cardiovascular Exam Cardiovascular Exam: RRR, +S1, +S2 - GI/Abdominal Exam GI & Abdominal Exam: Distended, Firm, Normal Bowel Sounds. absent: Guarding, Hernia, Mass, Organomegaly, Soft, Tenderness - Rectal Exam Rectal Exam: NORMAL INSPECTION. absent: Black Stool, Bloody Stool, Hemorrhoids Additional comments: Light brown stool - Extremities Exam Extremities exam: Positive for: normal inspection. Negative for: pedal edema - Neurological Exam Neurological exam: Alert, Oriented x3 - Psychiatric Exam Psychiatric exam: Normal Affect, Normal Mood - Skin Skin Exam: Dry, Warm Results - Vital Signs Recent Vital Signs: Last Vital Signs Temp 98.3 F 07/24/18 08:09 Pulse 93 H 07/24/18 09:00 Resp 22 07/24/18 09:00 BP 114/62 07/24/18 09:00 Pulse Ox 95 07/24/18 09:00 - Labs Result Diagrams: 07/24/18 06:30 07/24/18 06:30 Labs: Laboratory Results - last 24 hr 07/23/18 07/23/18 07/23/18 17:34 17:34 17:34 WBC 5.6 RBC 2.73 L Hgb 5.1 L* D Hct 18.1 L* MCV 66.3 L MCH 18.7 L MCHC 28.2 L RDW 21.3 H Plt Count 193 MPV 9.0 Gran % 47.3 L Lymph % (Auto) 28.6 [place] % (Auto) 16.0 H Eos % (Auto) 6.5 H Baso % (Auto) 1.6 Gran # 2.63 Lymph # (Auto) 1.6 [place] # (Auto) 0.9 H Eos # (Auto) 0.4 Baso # (Auto) 0.09 PT 14.8 H INR 1.29 APTT 34.4 pCO2 pO2 HCO3 ABG pH ABG Total CO2 ABG O2 Saturation ABG O2 Content ABG Base Excess ABG Hemoglobin ABG Carboxyhemoglobin POC ABG HHb (Measured) ABG Methemoglobin ABG O2 Capacity Hgb O2 Saturation FiO2 Sodium Potassium Chloride Carbon Dioxide Anion Gap BUN Creatinine Est GFR ( Amer) Est GFR (Non-Af Amer) Random Glucose Calcium Phosphorus Magnesium Iron TIBC % Saturation Total Bilirubin Direct Bilirubin AST ALT Alkaline Phosphatase Ammonia < 9 L Lactate Dehydrogenase Total Creatine Kinase Troponin I NT-Pro-B Natriuret Pep Total Protein Albumin Globulin Albumin/Globulin Ratio Lipase Urine Color Urine Appearance Urine pH Ur Specific [place] Urine Protein Urine Glucose (UA) Urine Ketones Urine Blood Urine Nitrate Urine Bilirubin Urine Urobilinogen Ur Leukocyte Esterase Influenza Typ A,B (EIA) Blood Type Antibody Screen Crossmatch BBK History Checked 07/23/18 07/23/18 07/23/18 17:34 18:45 21:59 WBC RBC Hgb Hct MCV MCH MCHC RDW Plt Count MPV Gran % Lymph % (Auto) [place] % (Auto) Eos % (Auto) Baso % (Auto) Gran # Lymph # (Auto) [place] # (Auto) Eos # (Auto) Baso # (Auto) PT INR APTT pCO2 pO2 HCO3 ABG pH ABG Total CO2 ABG O2 Saturation ABG O2 Content ABG Base Excess ABG Hemoglobin ABG Carboxyhemoglobin POC ABG HHb (Measured) ABG Methemoglobin ABG O2 Capacity Hgb O2 Saturation FiO2 Sodium 139 Potassium 3.6 Chloride 108 H Carbon Dioxide 25 Anion Gap 10 BUN 17 Creatinine 0.7 L Est GFR ( Amer) > 60 Est GFR (Non-Af Amer) > 60 Random Glucose 123 H Calcium 8.1 L Phosphorus Magnesium 2.2 Iron TIBC % Saturation Total Bilirubin 0.5 Direct Bilirubin 0.4 AST 46 ALT 30 Alkaline Phosphatase 144 H D Ammonia Lactate Dehydrogenase 692 Total Creatine Kinase 158 Troponin I 0.01 NT-Pro-B Natriuret Pep 302 Total Protein 6.5 Albumin 2.8 L Globulin 3.7 Albumin/Globulin Ratio 0.7 L Lipase 251 Urine Color Urine Appearance Urine pH Ur Specific [place] Urine Protein Urine Glucose (UA) Urine Ketones Urine Blood Urine Nitrate Urine Bilirubin Urine Urobilinogen Ur Leukocyte Esterase Influenza Typ A,B (EIA) Blood Type AB POSITIVE Antibody Screen Negative Crossmatch See Detail BBK History Checked Patient has bt 07/23/18 07/23/18 07/24/18 21:59 23:21 02:38 WBC RBC Hgb Hct MCV MCH MCHC RDW Plt Count MPV Gran % Lymph % (Auto) [place] % (Auto) Eos % (Auto) Baso % (Auto) Gran # Lymph # (Auto) [place] # (Auto) Eos # (Auto) Baso # (Auto) PT INR APTT pCO2 pO2 HCO3 ABG pH ABG Total CO2 ABG O2 Saturation ABG O2 Content ABG Base Excess ABG Hemoglobin ABG Carboxyhemoglobin POC ABG HHb (Measured) ABG Methemoglobin ABG O2 Capacity Hgb O2 Saturation FiO2 Sodium Potassium Chloride Carbon Dioxide Anion Gap BUN Creatinine Est GFR ( Amer) Est GFR (Non-Af Amer) Random Glucose Calcium Phosphorus Magnesium Iron 10 L TIBC 364 % Saturation 3 L Total Bilirubin Direct Bilirubin AST ALT Alkaline Phosphatase Ammonia Lactate Dehydrogenase Total Creatine Kinase Troponin I NT-Pro-B Natriuret Pep Total Protein Albumin Globulin Albumin/Globulin Ratio Lipase Urine Color Yellow Urine Appearance Clear Urine pH 6.5 Ur Specific [place] <= 1.005 Urine Protein Negative Urine Glucose (UA) Negative Urine Ketones Negative Urine Blood Negative Urine Nitrate Negative Urine Bilirubin Negative Urine Urobilinogen 0.2 Ur Leukocyte Esterase Negative Influenza Typ A,B (EIA) Negative for flu a/b Blood Type Antibody Screen Crossmatch BBK History Checked 07/24/18 07/24/18 07/24/18 06:30 06:30 06:40 WBC 4.0 L D RBC 3.59 Hgb 7.9 L D Hct 26.3 L MCV 73.3 L D MCH 22.0 L MCHC 30.0 L RDW 23.0 H Plt Count 151 MPV Gran % 77.9 H Lymph % (Auto) 17.2 L [place] % (Auto) 4.7 Eos % (Auto) 0.0 L Baso % (Auto) 0.2 Gran # 3.12 Lymph # (Auto) 0.7 L [place] # (Auto) 0.2 Eos # (Auto) 0.0 Baso # (Auto) 0.01 PT INR APTT pCO2 32 L pO2 61.0 L HCO3 19.8 L ABG pH 7.40 ABG Total CO2 20.8 L ABG O2 Saturation 96.7 ABG O2 Content 9.3 L ABG Base Excess -4.5 L ABG Hemoglobin 7.1 L ABG Carboxyhemoglobin 2.8 H POC ABG HHb (Measured) 3.2 ABG Methemoglobin 1.2 ABG O2 Capacity 9.6 L Hgb O2 Saturation 92.8 L FiO2 21.0 Sodium 141 Potassium 3.8 Chloride 111 H Carbon Dioxide 21 Anion Gap 12 BUN 14 Creatinine 0.7 L Est GFR ( Amer) > 60 Est GFR (Non-Af Amer) > 60 Random Glucose 179 H Calcium 7.7 L Phosphorus 2.6 Magnesium 2.1 Iron TIBC % Saturation Total Bilirubin 1.3 Direct Bilirubin AST 32 ALT 24 Alkaline Phosphatase 132 H Ammonia Lactate Dehydrogenase Total Creatine Kinase Troponin I NT-Pro-B Natriuret Pep Total Protein 6.5 Albumin 2.7 L Globulin 3.7 Albumin/Globulin Ratio 0.7 L Lipase Urine Color Urine Appearance Urine pH Ur Specific [place] Urine Protein Urine Glucose (UA) Urine Ketones Urine Blood Urine Nitrate Urine Bilirubin Urine Urobilinogen Ur Leukocyte Esterase Influenza Typ A,B (EIA) Blood Type Antibody Screen Crossmatch BBK History Checked Assessment & Plan - Assessment and Plan (Free Text) Assessment: Patient is a 72yo male with PMHx significant for decompensated EtOH cirrhosis c/b ascites and bleeding esophageal varices, h/o HBV and HCV exposure, EtOH abuse, COPD and tobacco abuse, blindness and decreased hearing acuity who presented to the ED for progressive distention of the abdomen -Decompensated EtOH cirrhosis -Ascites 2/2 above -Anemia R/O GI blood loss -Esophageal varices -EtOH abuse -HCV exposure (HCV Ab positive), unknown if chronically infected -HBV exposure and clearance per prior lab work -COPD Plan: -Patient currently hemodynamically stable at this time -Transfusion support for anemia with goal HGB 7-8 to avoid increasing portal pressure in patient with known varices -Avoid placement of NG or Dobbhoff tubes -Clear liquid diet, low salt -NPO past midnight for endoscopy tomorrow -Given H/O EV, octreotide gtt ordered -Pantoprazole gtt running -Given hemodynamic stability, consider addition of beta-jagdeep therapy with Coreg if patient can tolerate -Will initiate diuretic therapy following paracentesis and reevaluation -Paracentesis requested; please send fluid for cell count, culture and AFB culture, albumin -Replace albumin if volume removed >5L -No evidence of overt/covert encephalopathy presently - Date & Time Date: 07/24/18 Time: 07:30
--- NOTE | 2018-07-24 12:57 | CP.PCM.APN ---
Subjective - Date & Time of Evaluation Date of Evaluation: 07/24/18 Time of Evaluation: 09:15 - Subjective Subjective: 72 y/o male with PMH liver cirrhosis, GI blood, and esophageal varices, COPD, chronic anemia, alcohol abuse, HTN, HLD who presents with abdominal distension and poor oral intake x 10 days. On admission, H/H is 5.1/18.1, CT A/P shows liver cirrhosis with extensive ascites. 2 units of RBCs were ordered with appropriate response. Patient currently in ICU for observation. Plan for diagnostic IR paracentesis tommorow. Pt. seen and examined at bedside. Patient is a poor historian but denies any other associated medical complaints. Patient denies any fevers, chills, headache, dizziness, chest pain, shortness of breath, denied hematochezia, or melena, yet patient is with poor vision due to vision loss. Does report some abdominal discomfort, denied nausea or vomiting. Review of Systems - Constitutional Constitutional: As Per HPI - EENT Eyes: As Per HPI Ears: As Per HPI Nose/Mouth/Throat: As Per HPI - Cardiovascular Cardiovascular: As Per HPI - Respiratory Respiratory: Dyspnea on Exertion, Wheezing - Gastrointestinal Gastrointestinal: Bloating - Reproductive: Male Reproductive:Male: As Per HPI - Musculoskeletal Musculoskeletal: As Per HPI - Integumentary Integumentary: As Per HPI - Neurological Neurological: Abnormal Hearing, Loss of Vision - Psychiatric Psychiatric: Irritability - Endocrine Endocrine: As Per HPI - Hematologic/Lymphatic Hematologic: As Per HPI Objective - Vital Signs/Intake and Output Vital Signs (last 24 hours): Temp Pulse Resp BP Pulse Ox 98.3 F 93 H 22 114/62 95 07/24/18 08:09 07/24/18 09:00 07/24/18 09:00 07/24/18 09:00 07/24/18 09:00 Intake and Output: 07/24/18 07/24/18 06:59 18:59 Intake Total 700 400 Output Total 1200 Balance 700 -800 - Medications Medications: Current Medications Arformoterol Tartrate (Brovana) 15 mcg IH [id number] JUANITA Last Admin: 07/24/18 08:14 Dose: 15 mcg Budesonide (Pulmicort Respules) 0.25 mg IH [id number] JUANITA Last Admin: 07/24/18 08:14 Dose: 0.25 mg Pantoprazole Sodium (Protonix 40mg Ivpb) 40 mg in 100 mls @ 20 mls/hr IVPB .Q5H JUANITA Last Admin: 07/23/18 18:46 Dose: 20 mls/hr Octreotide Acetate 1,250 mcg/ (Sodium Chloride) 252.5 mls @ 10.1 mls/hr IV .Q24H JUANITA; Protocol Last Admin: 07/23/18 20:00 Dose: 50 mcg/hr, 10.1 mls/hr Ceftriaxone Sodium (Rocephin 1 Gram Ivpb) 1 gm in 100 mls @ 100 mls/hr IVPB DAILY JUANITA; Protocol Last Admin: 07/24/18 09:17 Dose: 100 mls/hr Azithromycin 250 mg/ Sodium (Chloride) 250 mls @ 167 mls/hr IVPB DAILY JUANITA; Protocol Last Admin: 07/24/18 09:24 Dose: 167 mls/hr Ipratropium [place] (Atrovent) 0.5 mg IH [id number] PRN PRN Reason: Shortness of Breath Levalbuterol HCl (Xopenex) 0.63 mg IH [id number] [facility] Last Admin: 07/24/18 12:48 Dose: 0.63 mg Methylprednisolone (Solu-Medrol) 40 mg IVP Q8 JUANITA Last Admin: 07/24/18 09:18 Dose: 40 mg Multi-Ingredient Ointment (Hydrophor Oint) 0 gm TOP Q6H [facility] - Labs Labs: 07/24/18 06:30 07/24/18 06:30 PT 14.8 SECONDS (9.4-12.5) H 07/23/18 17:34 INR 1.29 07/23/18 17:34 APTT 34.4 Seconds (25.1-36.5) 07/23/18 17:34 - Constitutional Appears: Unkempt, Agitated - Head Exam Head Exam: NORMAL INSPECTION, NORMOCEPHALIC - Eye Exam Eye Exam: Normal appearance Pupil Exam: NORMAL ACCOMODATION - ENT Exam ENT Exam: Mucous Membranes Moist - Neck Exam Neck Exam: Full ROM - Respiratory Exam Respiratory Exam: Wheezes - Cardiovascular Exam Cardiovascular Exam: REGULAR RHYTHM - GI/Abdominal Exam GI & Abdominal Exam: Distended, Firm - Rectal Exam Rectal Exam: Deferred - Extremities Exam Extremities Exam: Full ROM, Normal Inspection - Back Exam Back Exam: NORMAL INSPECTION - Neurological Exam Neurological Exam: Alert, Awake - Psychiatric Exam Psychiatric exam: Agitated, Anxious - Skin Skin Exam: Dry, Intact Assessment and Plan - Assessment and Plan (Free Text) Assessment: ITS Impressions Chest X-Ray 07/23/18 17:21 IMPRESSION: No active disease. Abdomen/Pelvis CT 07/23/18 18:28 IMPRESSION: Severe ascites. Cirrhosis. Cholelithiasis. Laboratory Tests 07/23/18 07/23/18 07/23/18 17:34 17:34 17:34 WBC 5.6 RBC 2.73 L Hgb 5.1 L* D Hct 18.1 L* MCV 66.3 L MCH 18.7 L MCHC 28.2 L RDW 21.3 H Plt Count 193 MPV 9.0 Gran % 47.3 L Lymph % (Auto) 28.6 [place] % (Auto) 16.0 H Eos % (Auto) 6.5 H Baso % (Auto) 1.6 Gran # 2.63 Lymph # (Auto) 1.6 [place] # (Auto) 0.9 H Eos # (Auto) 0.4 Baso # (Auto) 0.09 PT 14.8 H INR 1.29 APTT 34.4 pCO2 pO2 HCO3 ABG pH ABG Total CO2 ABG O2 Saturation ABG O2 Content ABG Base Excess ABG Hemoglobin ABG Carboxyhemoglobin POC ABG HHb (Measured) ABG Methemoglobin ABG O2 Capacity Hgb O2 Saturation FiO2 Sodium Potassium Chloride Carbon Dioxide Anion Gap BUN Creatinine Est GFR ( Amer) Est GFR (Non-Af Amer) Random Glucose Calcium Phosphorus Magnesium Iron TIBC % Saturation Ferritin Total Bilirubin Direct Bilirubin AST ALT Alkaline Phosphatase Ammonia < 9 L Lactate Dehydrogenase Total Creatine Kinase Troponin I NT-Pro-B Natriuret Pep Total Protein Albumin Globulin Albumin/Globulin Ratio Lipase Urine Color Urine Appearance Urine pH Ur Specific [place] Urine Protein Urine Glucose (UA) Urine Ketones Urine Blood Urine Nitrate Urine Bilirubin Urine Urobilinogen Ur Leukocyte Esterase Influenza Typ A,B (EIA) Blood Type Antibody Screen Crossmatch BBK History Checked 07/23/18 07/23/18 07/23/18 17:34 18:45 21:59 WBC RBC Hgb Hct MCV MCH MCHC RDW Plt Count MPV Gran % Lymph % (Auto) [place] % (Auto) Eos % (Auto) Baso % (Auto) Gran # Lymph # (Auto) [place] # (Auto) Eos # (Auto) Baso # (Auto) PT INR APTT pCO2 pO2 HCO3 ABG pH ABG Total CO2 ABG O2 Saturation ABG O2 Content ABG Base Excess ABG Hemoglobin ABG Carboxyhemoglobin POC ABG HHb (Measured) ABG Methemoglobin ABG O2 Capacity Hgb O2 Saturation FiO2 Sodium 139 Potassium 3.6 Chloride 108 H Carbon Dioxide 25 Anion Gap 10 BUN 17 Creatinine 0.7 L Est GFR ( Amer) > 60 Est GFR (Non-Af Amer) > 60 Random Glucose 123 H Calcium 8.1 L Phosphorus Magnesium 2.2 Iron TIBC % Saturation Ferritin Total Bilirubin 0.5 Direct Bilirubin 0.4 AST 46 ALT 30 Alkaline Phosphatase 144 H D Ammonia Lactate Dehydrogenase 692 Total Creatine Kinase 158 Troponin I 0.01 NT-Pro-B Natriuret Pep 302 Total Protein 6.5 Albumin 2.8 L Globulin 3.7 Albumin/Globulin Ratio 0.7 L Lipase 251 Urine Color Urine Appearance Urine pH Ur Specific [place] Urine Protein Urine Glucose (UA) Urine Ketones Urine Blood Urine Nitrate Urine Bilirubin Urine Urobilinogen Ur Leukocyte Esterase Influenza Typ A,B (EIA) Blood Type AB POSITIVE Antibody Screen Negative Crossmatch See Detail BBK History Checked Patient has bt 07/23/18 07/23/18 07/23/18 21:59 21:59 23:21 WBC RBC Hgb Hct MCV MCH MCHC RDW Plt Count MPV Gran % Lymph % (Auto) [place] % (Auto) Eos % (Auto) Baso % (Auto) Gran # Lymph # (Auto) [place] # (Auto) Eos # (Auto) Baso # (Auto) PT INR APTT pCO2 pO2 HCO3 ABG pH ABG Total CO2 ABG O2 Saturation ABG O2 Content ABG Base Excess ABG Hemoglobin ABG Carboxyhemoglobin POC ABG HHb (Measured) ABG Methemoglobin ABG O2 Capacity Hgb O2 Saturation FiO2 Sodium Potassium Chloride Carbon Dioxide Anion Gap BUN Creatinine Est GFR ( Amer) Est GFR (Non-Af Amer) Random Glucose Calcium Phosphorus Magnesium Iron 10 L TIBC 364 % Saturation 3 L Ferritin 7.9 Total Bilirubin Direct Bilirubin AST ALT Alkaline Phosphatase Ammonia Lactate Dehydrogenase Total Creatine Kinase Troponin I NT-Pro-B Natriuret Pep Total Protein Albumin Globulin Albumin/Globulin Ratio Lipase Urine Color Yellow Urine Appearance Clear Urine pH 6.5 Ur Specific [place] <= 1.005 Urine Protein Negative Urine Glucose (UA) Negative Urine Ketones Negative Urine Blood Negative Urine Nitrate Negative Urine Bilirubin Negative Urine Urobilinogen 0.2 Ur Leukocyte Esterase Negative Influenza Typ A,B (EIA) Blood Type Antibody Screen Crossmatch BBK History Checked 07/24/18 07/24/18 07/24/18 02:38 06:30 06:30 WBC 4.0 L D RBC 3.59 Hgb 7.9 L D Hct 26.3 L MCV 73.3 L D MCH 22.0 L MCHC 30.0 L RDW 23.0 H Plt Count 151 MPV Gran % 77.9 H Lymph % (Auto) 17.2 L [place] % (Auto) 4.7 Eos % (Auto) 0.0 L Baso % (Auto) 0.2 Gran # 3.12 Lymph # (Auto) 0.7 L [place] # (Auto) 0.2 Eos # (Auto) 0.0 Baso # (Auto) 0.01 PT INR APTT pCO2 pO2 HCO3 ABG pH ABG Total CO2 ABG O2 Saturation ABG O2 Content ABG Base Excess ABG Hemoglobin ABG Carboxyhemoglobin POC ABG HHb (Measured) ABG Methemoglobin ABG O2 Capacity Hgb O2 Saturation FiO2 Sodium 141 Potassium 3.8 Chloride 111 H Carbon Dioxide 21 Anion Gap 12 BUN 14 Creatinine 0.7 L Est GFR ( Amer) > 60 Est GFR (Non-Af Amer) > 60 Random Glucose 179 H Calcium 7.7 L Phosphorus 2.6 Magnesium 2.1 Iron TIBC % Saturation Ferritin Total Bilirubin 1.3 Direct Bilirubin AST 32 ALT 24 Alkaline Phosphatase 132 H Ammonia Lactate Dehydrogenase Total Creatine Kinase Troponin I NT-Pro-B Natriuret Pep Total Protein 6.5 Albumin 2.7 L Globulin 3.7 Albumin/Globulin Ratio 0.7 L Lipase Urine Color Urine Appearance Urine pH Ur Specific [place] Urine Protein Urine Glucose (UA) Urine Ketones Urine Blood Urine Nitrate Urine Bilirubin Urine Urobilinogen Ur Leukocyte Esterase Influenza Typ A,B (EIA) Negative for flu a/b Blood Type Antibody Screen Crossmatch BBK History Checked 07/24/18 06:40 WBC RBC Hgb Hct MCV MCH MCHC RDW Plt Count MPV Gran % Lymph % (Auto) [place] % (Auto) Eos % (Auto) Baso % (Auto) Gran # Lymph # (Auto) [place] # (Auto) Eos # (Auto) Baso # (Auto) PT INR APTT pCO2 32 L pO2 61.0 L HCO3 19.8 L ABG pH 7.40 ABG Total CO2 20.8 L ABG O2 Saturation 96.7 ABG O2 Content 9.3 L ABG Base Excess -4.5 L ABG Hemoglobin 7.1 L ABG Carboxyhemoglobin 2.8 H POC ABG HHb (Measured) 3.2 ABG Methemoglobin 1.2 ABG O2 Capacity 9.6 L Hgb O2 Saturation 92.8 L FiO2 21.0 Sodium Potassium Chloride Carbon Dioxide Anion Gap BUN Creatinine Est GFR ( Amer) Est GFR (Non-Af Amer) Random Glucose Calcium Phosphorus Magnesium Iron TIBC % Saturation Ferritin Total Bilirubin Direct Bilirubin AST ALT Alkaline Phosphatase Ammonia Lactate Dehydrogenase Total Creatine Kinase Troponin I NT-Pro-B Natriuret Pep Total Protein Albumin Globulin Albumin/Globulin Ratio Lipase Urine Color Urine Appearance Urine pH Ur Specific [place] Urine Protein Urine Glucose (UA) Urine Ketones Urine Blood Urine Nitrate Urine Bilirubin Urine Urobilinogen Ur Leukocyte Esterase Influenza Typ A,B (EIA) Blood Type Antibody Screen Crossmatch BBK History Checked Assessment/ Plan: 1. Ascites 2nd to Decompensated ETOH Cirrhosis Awaiting Paracentesis by IR. 2. Anemia R/O GI Bleed- Improved s/p transfusion of 2 units PRBCs. Continue Sandostatin IV, Protonix IV drips as per GI. MOnitor and trend, Cbc. Patient is NPO for endoscopy tommorow afternoon. 3. History Of Esophageal Varices Secondary to Decompensated Cirrhosis. 4. Hx COPD Pt currently wheezing maybe likely to volume overload in setting of ascites, continue duonebs and monitor respiratory status. Currently receiving IV solumedrol. Will monitor clinical status and follow closely. Awaiting Paracentesis.
[2018-07-24] MEDS: Petrolatum-Mineral Oil Oint (100gm) TOP SCH ×3 (14:42→21:27)
[2018-07-24] MEDS: Pantoprazole 40mg/100mL NS 40 MG/100 ML BAG IVPB SCH ×2 (14:42→19:02)
[2018-07-24 17:26] LABS: BODY FLUID TYPE PERITONEAL/ASCITES
--- NOTE | 2018-07-24 17:45 | US ---
PROCEDURE: Ultrasound guided paracentesis. HISTORY: Alcoholic cirrhosis Recurrent ascites with abdominal pain and distension. Needs therapeutic paracentesis PHYSICIAN(S): Juan Miguel Scott MD. TECHNIQUE: The relative risks and indications for the procedure were explained to the patient and informed written consent obtained. Sonography of the abdomen was performed in a supine position. This revealed a moderate amount of non-loculated ascites, greatest in the right lower quadrant. A puncture site was selected and the area was prepped and draped in the usual sterile fashion. 1% Xylocaine was used to anesthetize the skin and soft tissues. A 7 [place] paracentesis catheter was trocared into the right lower quadrantand 3500 cc of clear white-yellow fluid aspirated. No labs were sent IMPRESSION: Ultrasound-guided paracentesis in the right lower quadrant. 3500 cc of fluid were aspirated.
[2018-07-24 18:33] LABS: BODY FLUID RBC 60.5 /uL (0.0-0.0)
[2018-07-24 18:39] LABS: BF GROSS APPEARANCE CLEAR (CLEAR); BODY FLUID TOTAL COUNT 100 (0-0)
--- NOTE | 2018-07-24 18:46 | CON ---
DATE: 07/24/2018 PULMONARY CONSULT NOTE REFERRING PHYSICIAN: Dr. Ponce. REASON FOR CONSULT: Chronic lung disease, shortness of breath. HISTORY OF PRESENT ILLNESS: This is a 72-year-old male well known to us from previous admissions. The patient has a history of being noncompliant with medications. Active smoker. Active drinker. He has a past medical history significant for chronic obstructive lung disease, cirrhotic liver, hepatitis B, esophageal varices grade II, legally blind, hard of hearing, liver cirrhosis, ascites. The patient came into the emergency room complaining of abdominal distension and shortness of breath. Abdominal CT showed severe ascites, cirrhosis, and cholelithiasis. The patient continues to report episodes of shortness of breath. No cough. Denies fevers or chills, headache, dizziness. PAST MEDICAL HISTORY: Cirrhosis of the liver, alcohol abuse, COPD, ascites, esophageal varices, cerebrovascular accident, legally blind, cataract surgery, hard of hearing in the left ear, glaucoma in the left eye, gastroesophageal reflux disease, dyspepsia, history of paracentesis, hernia repair, history of GI bleed, depression, ALLERGIES: NO KNOWN DRUG ALLERGIES. SOCIAL HISTORY: Positive for ETOH abuse, smoker. No illicit drug use. FAMILY HISTORY: No significant cardiopulmonary disease reported. MEDICATIONS: Brovana 50 mcg every 12 hours, azithromycin 250 mg daily, Pulmicort 0.25 mg inhalation every 12 hours, Rocephin 1 g daily, Atrovent 0.5 mg inhalation every 6 hours, Xopenex 0.63 mg inhalation every 6 hours, Solu-Medrol 40 mg every 8 hours, octreotide acetate 1250 mcg every 24 hours, Protonix 40 mg every 5 hours IV piggyback. REVIEW OF SYSTEMS: No headache, rhinitis, cough, chest pain, nausea, vomiting, diarrhea, leg swelling reported. Does report shortness of breath, abdominal distention. PHYSICAL EXAMINATION: GENERAL: No acute distress. VITAL SIGNS: Blood pressure 114/62, pulse 93, oxygen saturation 95, temperature 98.3. HEENT: Moist mucous membranes. NECK: Supple. No JVD. CHEST/LUNGS: Scattered rhonchi bilaterally. No wheezing. CARDIOVASCULAR: S1, S2 audible. ABDOMEN: Positive for ascites, distended. EXTREMITIES: No bilateral lower extremity edema. NEUROLOGIC: Awake, alert, verbal. Follows simple commands. LABORATORY DATA: WBC 4.0, RBC 3.59, hemoglobin 7.9, hematocrit 26.3, platelets 151. PCO2 of 32, PO2 of 61, HCO3 of 19, ABG pH 7.40. Sodium 141, potassium 3.8, chloride 111, carbon dioxide 21, anion gap 12, BUN 14, creatinine 0.7, GFR greater than 60, random glucose 179. Calcium 7.7, phosphorus 2.6, magnesium 2.1, iron 10, TIBC 364, percent saturation 3, ferritin 7.9, total bilirubin 1.3. AST 32, ALT 24, alkaline phosphatase 132. Ammonia was less than 9. ProBNP 302. Total protein 6.5, albumin 2.7, globulin 3.7, albumin and globulin ratio 0.7. Influenza type A and B negative. DIAGNOSTIC DATA: Chest x-ray shows no active disease. Electrocardiogram, sinus tachycardia. Abdomen and pelvic CT shows severe ascites, cirrhosis, cholelithiasis. IMPRESSION AND PLAN: Chronic obstructive lung disease exacerbation, cirrhosis of the liver, ascites, anemia, history of hepatitis B, esophageal varices. We believe ascites could be contributing to shortness of breath along with anemia as well as the patient's chronic obstructive lung disease. We will use sequential compression devices at this time. No chemical prophylaxis for deep venous thrombosis due to history of gastrointestinal bleed and current anemia status. Continue inhaled bronchodilators. Continue antibiotic therapy. Gastric prophylaxis. Continue steroids. We will do ABGs in the morning. Repeat labs in the morning. Continue followup with gastrointestinal for a possible paracentesis. This patient was seen and examined with Dr. Atkins. Discussed assessment and plan as described above. Thank you for this consult. We will follow with you. Garry Gutierrez APN Theodore Atkins MD JULIET
[2018-07-25] MEDS: Pantoprazole 40mg/100mL NS 40 MG/100 ML BAG IVPB SCH ×4 (00:06→06:54)
--- NOTE | 2018-07-25 01:18 | PN ---
DATE: 07/24/2018 SUBJECTIVE: The patient is a 72-year-old male. The patient was seen and examined at the bedside on 07/24/2018 and looking comfortable. No fever. No chills. No hematuria or hematochezia, but having abdominal distention. Abdomen is tight, sometimes feeling distended due to abdominal distention. PHYSICAL EXAMINATION VITAL SIGNS: Blood pressure 114/60, pulse 90, oxygenation 95%, temperature 98.4. HEENT: Head: Normocephalic, atraumatic. Eyes: PERRLA. Extraocular muscles are intact. Conjunctivae clear. Nose patent. NECK: Supple. No carotid bruit. No JVD or thyromegaly. CHEST: Bilaterally symmetrical. HEART: S1 and S2, positive. LUNGS: Clear to auscultation. ABDOMEN: Soft. Bowel sounds present. No organomegaly. EXTREMITIES: No edema. No cyanosis. NEUROLOGICAL: The patient is awake and alert. Moving all 4 extremities. No focal deficit. LABORATORY DATA: White blood cell 4.0; on admission, hemoglobin was 5.1, after blood transfusion is 7.9; hematocrit 26.3; platelets 151. Sodium 141, potassium 3.8, BUN 14, creatinine 0.7, glucose 179, calcium 7.7. AST 32, ALT 24. MEDICATIONS: Brovana, Pulmicort, Rocephin, Atrovent, Xopenex, Solu-Medrol, octreotide, Protonix. ASSESSMENT AND PLAN: Mr. Esteban Carrion is a 72-year-old male with leukopenia, anemia, hyperchloremia, renal insufficiency, iron deficiency, abnormal liver function test, influenza type A and B is negative, came with dyspnea because of the ascites. The patient has cirrhosis of the liver, alcohol use, chronic obstructive pulmonary disease, esophageal varices, cerebrovascular accident, legally blind, cataract surgery, have hearing aid, glaucoma in the left eye, gastroesophageal reflux disease, dyspepsia, history of paracentesis in the past, hernia repair, history of gastrointestinal bleeding, depression. Dr. Juan Miguel Scott did paracentesis, appreciated. The patient has a history of hepatitis B. Gastrointestinal and deep venous thrombosis prophylaxis given. Admitted the patient to the unit. Repeat labs. We will follow up. Evie Ponce MD [facility] # [id number]
[2018-07-25] MEDS: Levalbuterol 0.63 MG/3 ML Inhal Soln UD IH SCH ×5 (01:33→23:14)
[2018-07-25] MEDS: Petrolatum-Mineral Oil Oint (100gm) TOP SCH ×4 (05:04→22:30)
[2018-07-25] MEDS: MethylPREDNISolone 40 mg Vial IVP SCH ×3 (05:06→22:12)
--- NOTE | 2018-07-25 05:07 | CP.PCM.PN ---
<Storm Thomas - Last Filed: 07/25/18 04:50> Subjective - Date & Time of Evaluation Date of Evaluation: 07/25/18 (n) Time of Evaluation: 05:00 - Subjective Subjective: S: Patient complained of sharp left sided chest pain while turning in bed. It lasted for few seconds. O: VS: 92/56 HR RR T Gen: AAOx3, in NAD, speaking in full sentences Heart: S1, S2, no murmur, no gallop Lung : CTA b/l Abd:, soft, non tender Ext: no cyanosis, no edema, peripheral pulses palpable A/P: 72 y/o with PMH of alcoholic liver cirrhosis admitted to ICU for extensive ascites with acute anemia s/p 2 units of PRBC transfusion and therapeutic p aracentesis. -Stat EKG shows NSR@86 pbm, no ST/T wave changes -Trop stat ordered -Repeat EKG and trop in am -Patient is asymptomatic, vitals stable Case reviewed with attending Dr Ernie Thomas Objective - Vital Signs/Intake and Output Vital Signs (last 24 hours): Temp Pulse Resp BP Pulse Ox 98.3 F 91 H 22 114/62 95 07/24/18 16:00 07/25/18 02:00 07/24/18 09:00 07/24/18 09:00 07/24/18 09:00 Intake and Output: 07/24/18 07/25/18 18:59 06:59 Intake Total 1860 252.5 Output Total 4704 Balance -2844 252.5 - Medications Medications: Current Medications Arformoterol Tartrate (Brovana) 15 mcg IH [id number] JUANITA Last Admin: 07/24/18 20:19 Dose: 15 mcg Budesonide (Pulmicort Respules) 0.25 mg IH [id number] JUANITA Last Admin: 07/24/18 20:19 Dose: 0.25 mg Pantoprazole Sodium (Protonix 40mg Ivpb) 40 mg in 100 mls @ 20 mls/hr IVPB .Q5H JUANITA Last Admin: 07/25/18 00:06 Dose: 20 mls/hr Octreotide Acetate 1,250 mcg/ (Sodium Chloride) 252.5 mls @ 10.1 mls/hr IV .Q24H JUANITA; Protocol Last Admin: 12/20/18 21:58 Dose: 50 mcg/hr, 10.1 mls/hr Ceftriaxone Sodium (Rocephin 1 Gram Ivpb) 1 gm in 100 mls @ 100 mls/hr IVPB PATY LY JUANITA; Protocol Last Admin: 07/24/18 09:17 Dose: 100 mls/hr Azithromycin 250 mg/ Sodium (Chloride) 250 mls @ 167 mls/hr IVPB DAILY [facility]; Protocol Last Admin: 07/24/18 09:24 Dose: 167 mls/hr Ipratropium [place] (Atrovent) 0.5 mg IH [id number] PRN PRN Reason: Shortness of Breath Levalbuterol HCl (Xopenex) 0.63 mg IH [id number] [facility] Last Admin: 07/25/18 01:33 Dose: Not Given Methylprednisolone (Solu-Medrol) 40 mg IVP Q8 [facility] Last Admin: 07/24/18 22:30 Dose: 40 mg Multi-Ingredient Ointment (Hydrophor Oint) 0 gm TOP Q6H [facility] Last Admin: 07/24/18 21:27 Dose: 1 cre - Labs Labs: 07/24/18 06:30 07/24/18 06:30 PT 14.8 SECONDS (9.4-12.5) H 07/23/18 17:34 INR 1.29 07/23/18 17:34 APTT 34.4 Seconds (25.1-36.5) 07/23/18 17:34 <Sammi Klein - Last Filed: 07/25/18 05:28> Objective - Vital Signs/Intake and Output Vital Signs (last 24 hours): Temp Pulse Resp BP Pulse Ox 98.3 F 91 H 22 114/62 95 07/24/18 16:00 07/25/18 02:00 07/24/18 09:00 07/24/18 09:00 07/24/18 09:00 Intake and Output: 07/24/18 07/25/18 18:59 06:59 Intake Total 1860 252.5 Output Total 4704 Balance -2844 252.5 - Medications Medications: Current Medications Arformoterol Tartrate (Brovana) 15 mcg IH [id number] [facility] Last Admin: 07/24/18 20:19 Dose: 15 mcg Budesonide (Pulmicort Respules) 0.25 mg IH [id number] [facility] Last Admin: 07/24/18 20:19 Dose: 0.25 mg Pantoprazole Sodium (Protonix 40mg Ivpb) 40 mg in 100 mls @ 20 mls/hr IVPB .Q5H JUANITA Last Admin: 07/25/18 05:05 Dose: 20 mls/hr Octreotide Acetate 1,250 mcg/ (Sodium Chloride) 252.5 mls @ 10.1 mls/hr IV .Q24H [facility]; Protocol Last Admin: 07/24/18 21:58 Dose: 50 mcg/hr, 10.1 mls/hr Ceftriaxone Sodium (Rocephin 1 Gram Ivpb) 1 gm in 100 mls @ 100 mls/hr IVPB DAILY [facility]; Protocol Last Admin: 07/24/18 09:17 Dose: 100 mls/hr Azithromycin 250 mg/ Sodium (Chloride) 250 mls @ 167 mls/hr IVPB DAILY [facility]; Protocol Last Admin: 07/24/18 09:24 Dose: 167 mls/hr Ipratropium [place] (Atrovent) 0.5 mg IH [id number] PRN PRN Reason: Shortness of Breath Levalbuterol HCl (Xopenex) 0.63 mg IH [id number] JUANITA Last Admin: 07/25/18 01:33 Dose: Not Given Methylprednisolone (Solu-Medrol) 40 mg IVP Q8 [facility]UAN[facility] Last Admin: 07/25/18 05:06 Dose: 40 mg Multi-Ingredient Ointment (Hydrophor Oint) 0 gm TOP Q6H [facility]UANITA Last Admin: 07/25/18 05:04 Dose: 1 cre - Labs Labs: 07/24/18 06:30 07/24/18 06:30 PT 14.8 SECONDS (9.4-12.5) H 07/23/18 17:34 INR 1.29 07/23/18 17:34 APTT 34.4 Seconds (25.1-36.5) 07/23/18 17:34 Attending/Attestation - Attestation I have personally seen and examined this patient.: Yes I have fully participated in the care of the patient.: Yes I have reviewed all pertinent clinical information, including history, physical exam and plan: Yes
[2018-07-25 05:43] LABS: BASO # 0.01 K/mm3 (0.0-2.0); BASO % 0.1 % (0.0-3.0); GRAN # 11.56 (1.4-6.5); GRAN % 83.9 % (50.0-68.0); HEMOGLOBIN 8.1 g/dL (14.0-18.0); LYMPH # 1.4 (1.2-3.4); LYMPH % 9.9 % (22.0-35.0); MEAN CELL VOLUME 73.1 fl (80.0-105.0); MEAN CORPUSCULAR HEMOGLOBIN 22.3 pg (25.0-35.0); MEAN CORPUSCULAR HGB CONC 30.5 g/dl (31.0-37.0); MONO # 0.8 (0.1-0.6); MONO % 6.1 % (1.0-6.0); PLATELET COUNT 132 10^3/uL (120.0-450.0); RBC 3.64 10^6/uL (3.5-6.1); WHITE BLOOD COUNT 13.8 10^3/uL (4.5-11.0)
[2018-07-25 06:13] LABS: TROPONIN I < 0.01 ng/mL
[2018-07-25 06:41] LABS: ALB/GLOB RATIO 0.7 (1.1-1.8); ALBUMIN 2.5 g/dL (3.0-4.8); ALT/SGPT 24 U/L (7-56); AST/SGOT 31 U/L (17-59); BLOOD UREA NITROGEN 14 mg/dL (7-21); CALCIUM 7.4 mg/dL (8.4-10.5); GFR NON-AFRICAN AMERICAN > 60
[2018-07-25] MEDS: Arformoterol 15 mcg/2 ml Inh Sol IH SCH ×2 (08:20→19:54)
[2018-07-25] MEDS: Budesonide 0.25 mg/2 ml Inhal Susp UD IH SCH ×2 (08:20→19:57)
[2018-07-25] MEDS: cefTRIAXone 1 gm 1 GM/100 ML BAG IVPB SCH (09:19)
[2018-07-25] MEDS: Azithromycin 250 MG in Sodium Chloride 0.9% 250 ML IVPB SCH (09:20)
--- NOTE | 2018-07-25 09:29 | CP.CCUPN ---
<Sanchez Colin - Last Filed: 07/25/18 12:17> CCU Subjective - Physician Review Subjective (Free Text): Sanchez Colin, PGY-1 Progress Note for ICU Patient seen and evaluated at bedside. Patient complains of abdominal bloating, cough and shortness of breath. Patient had episode of chest pain overnight, which was found to be due to a cup that was wedged behind his ribs on the bed. Patent reports that he is feeling bad but without change from yesterday. Patient admits to pain that begins in his abdomen LUQ which radiates to his RUQ when he coughs. Patient is upset at being unable to eat at this time. Patient going for EGD this afternoon. CCU Objective - Vital Signs / Intake & Output Vital Signs (Last 4 hours): Vital Signs Pulse 07/25/18 05:46 85 Intake and Output (Last 8hrs): Intake & Output 07/24/18 07/25/18 07/25/18 22:59 06:59 14:59 Intake Total 1712.5 840 Output Total 3504 3751 Balance -1791.5 -2911 Weight 52.163 kg Intake: IV 612.5 360 Left Upper arm 360 360 Oral 1100 480 Output: Urine 250 Urine, Voided 250 Stool 1 Urine/Stool Mix 4 Other 3500 3500 - Physical Exam Physical Exam Limitations: Positive for: Other (Legally blind and deaf) Head: Positive for: Atraumatic, Normocephalic Pupils: Positive for: PERRL Extroacular Muscles: Positive for: EOMI Conjunctiva: Positive for: Normal Neck: Positive for: Normal Range of Motion Respiratory/Chest: Positive for: Good Air Exchange, Wheezes (Expiratory), Decreased Breath Sounds. Negative for: Clear to Auscultation, Respiratory Distress, Accessory Muscle Use Cardiovascular: Positive for: Regular Rate and Rhythm, Normal S1, S2. Negative for: Murmurs Abdomen: Positive for: Distention. Negative for: Tenderness, Peritoneal Signs Upper Extremity: Positive for: Normal Inspection. Negative for: Cyanosis, Edema Lower Extremity: Positive for: Normal Inspection. Negative for: Edema Neurological: Positive for: GCS=15, CN II-XII Intact, Speech Normal Skin: Positive for: Warm, Dry, Normal Color. Negative for: Rashes Psychiatric: Positive for: Alert, Oriented x 3, Anxious, Agitated - Medications Active Medications: Active Medications Generic Name Dose Route Start Last Admin Trade Name Freq PRN Reason Stop Dose Admin Arformoterol Tartrate 15 mcg 07/24/18 08:00 07/24/18 20:19 Brovana IH 15 mcg [id number] JUANITA Administration Budesonide 0.25 mg 07/24/18 08:00 07/24/18 20:19 Pulmicort Respules IH 0.25 mg [id number] JUANITA Administration Pantoprazole Sodium 40 mg in 100 mls @ 20 mls/hr 07/23/18 18:30 07/25/18 06:54 Protonix 40mg Ivpb IVPB Not Given .Q5H JUANITA Octreotide Acetate 1,250 mcg/ 252.5 mls @ 10.1 mls/hr 07/23/18 18:45 07/24/18 21:58 Sodium Chloride IV 50 mcg/hr .Q24H JUANITA 10.1 mls/hr Administration Protocol 50 MCG/HR Ceftriaxone Sodium 1 gm in 100 mls @ 100 mls/hr 07/24/18 10:00 07/25/18 09:19 Rocephin 1 Gram Ivpb IVPB 100 mls/hr DAILY JUANITA Administration Protocol Azithromycin 250 mg/ Sodium 250 mls @ 167 mls/hr 07/24/18 10:00 07/25/18 09:20 Chloride IVPB 167 mls/hr DAILY JUANITA Administration Protocol Ipratropium Acton 0.5 mg 07/23/18 21:37 Atrovent IH [id number] PRN Shortness of Breath Levalbuterol HCl 0.63 mg 07/24/18 02:00 07/25/18 08:18 Xopenex IH 0.63 mg [id number] JUANITA Administration Methylprednisolone 40 mg 07/24/18 06:45 07/25/18 05:06 Solu-Medrol IVP 40 mg Q8 JUANITA Administration Multi-Ingredient Ointment 0 gm 07/23/18 21:45 07/25/18 09:17 Hydrophor Oint TOP 1 cre Q6H JUANITA Administration Nicotine 1 patch 07/25/18 10:00 07/25/18 09:20 Nicoderm Cq TD 1 patch DAILY JUANITA Administration - Patient Studies Lab Studies: Microbiology Studies 07/23/18 23:20 Blood Culture - Preliminary Blood NO GROWTH AFTER 24 HOURS Lab Studies 07/25/18 07/25/18 07/24/18 Range/Units 05:15 05:15 17:20 WBC 13.8 H D (4.5-11.0) 10^3/uL RBC 3.64 (3.5-6.1) 10^6/uL Hgb 8.1 L (14.0-18.0) g/dL Hct 26.6 L (42.0-52.0) % MCV 73.1 L (80.0-105.0) fl MCH 22.3 L (25.0-35.0) pg MCHC 30.5 L (31.0-37.0) g/dl RDW 23.0 H (11.5-14.5) % Plt Count 132 (120.0-450.0) 10^3/uL Gran % 83.9 H (50.0-68.0) % Lymph % (Auto) 9.9 L (22.0-35.0) % [place] % (Auto) 6.1 H (1.0-6.0) % Eos % (Auto) 0.0 L (1.5-5.0) % Baso % (Auto) 0.1 (0.0-3.0) % Gran # 11.56 H (1.4-6.5) Lymph # (Auto) 1.4 (1.2-3.4) [place] # (Auto) 0.8 H (0.1-0.6) Eos # (Auto) 0.0 (0.0-0.7) Baso # (Auto) 0.01 (0.0-2.0) K/mm3 Sodium 140 (132-148) mmol/L Potassium 4.2 (3.6-5.0) mmol/L Chloride 110 H (98-107) mmol/L Carbon Dioxide 26 (21-33) mmol/L Anion Gap 8 L (10-20) BUN 14 (7-21) mg/dL Creatinine 0.7 L (0.8-1.5) mg/dl Est GFR ( Amer) > 60 Est GFR (Non-Af Amer) > 60 Random Glucose 89 (70-110) mg/dL Calcium 7.4 L (8.4-10.5) mg/dL Ferritin ng/mL Total Bilirubin 0.6 (0.2-1.3) mg/dL AST 31 (17-59) U/L ALT 24 (7-56) U/L Alkaline Phosphatase 115 (38-126) U/L Troponin I < 0.01 ng/mL Total Protein 6.1 (5.8-8.3) g/dL Albumin 2.5 L (3.0-4.8) g/dL Globulin 3.5 gm/dL Albumin/Globulin Ratio 0.7 L (1.1-1.8) Fluid Source Peritoneal/ascites Fluid Appearance Clear (CLEAR) Fluid WBC 169.0 (0.0-300.0) /uL Fluid RBC 60.5 H (0.0-0.0) /uL Fluid Tot Cell Count 100 H (0-0) Fluid Mononuclear Cell 95.9 H (0-0) % Fl Polymorphonucl Cell 4.1 H (0-0) % Fluid Comment Straw Ur L.pneumophila Ag (NEGATIVE) 07/23/18 07/23/18 Range/Units 23:21 21:59 WBC (4.5-11.0) 10^3/uL RBC (3.5-6.1) 10^6/uL Hgb (14.0-18.0) g/dL Hct (42.0-52.0) % MCV (80.0-105.0) fl MCH (25.0-35.0) pg MCHC (31.0-37.0) g/dl RDW (11.5-14.5) % Plt Count (120.0-450.0) 10^3/uL Gran % (50.0-68.0) % Lymph % (Auto) (22.0-35.0) % [place] % (Auto) (1.0-6.0) % Eos % (Auto) (1.5-5.0) % Baso % (Auto) (0.0-3.0) % Gran # (1.4-6.5) Lymph # (Auto) (1.2-3.4) [place] # (Auto) (0.1-0.6) Eos # (Auto) (0.0-0.7) Baso # (Auto) (0.0-2.0) K/mm3 Sodium (132-148) mmol/L Potassium (3.6-5.0) mmol/L Chloride (98-107) mmol/L Carbon Dioxide (21-33) mmol/L Anion Gap (10-20) BUN (7-21) mg/dL Creatinine (0.8-1.5) mg/dl Est GFR ( Amer) Est GFR (Non-Af Amer) Random Glucose (70-110) mg/dL Calcium (8.4-10.5) mg/dL Ferritin 7.9 ng/mL Total Bilirubin (0.2-1.3) mg/dL AST (17-59) U/L ALT (7-56) U/L Alkaline Phosphatase (38-126) U/L Troponin I ng/mL Total Protein (5.8-8.3) g/dL Albumin (3.0-4.8) g/dL Globulin gm/dL Albumin/Globulin Ratio (1.1-1.8) Fluid Source Fluid Appearance (CLEAR) Fluid WBC (0.0-300.0) /uL Fluid RBC (0.0-0.0) /uL Fluid Tot Cell Count (0-0) Fluid Mononuclear Cell (0-0) % Fl Polymorphonucl Cell (0-0) % Fluid Comment Ur L.pneumophila Ag Negative (NEGATIVE) Laboratory Results - last 24 hr 07/23/18 07/23/18 07/24/18 21:59 23:21 17:20 WBC RBC Hgb Hct MCV MCH MCHC RDW Plt Count Gran % Lymph % (Auto) [place] % (Auto) Eos % (Auto) Baso % (Auto) Gran # Lymph # (Auto) [place] # (Auto) Eos # (Auto) Baso # (Auto) Sodium Potassium Chloride Carbon Dioxide Anion Gap BUN Creatinine Est GFR ( Amer) Est GFR (Non-Af Amer) Random Glucose Calcium Ferritin 7.9 Total Bilirubin AST ALT Alkaline Phosphatase Troponin I Total Protein Albumin Globulin Albumin/Globulin Ratio Fluid Source Peritoneal/ascites Fluid Appearance Clear Fluid WBC 169.0 Fluid RBC 60.5 H Fluid Tot Cell Count 100 H Fluid Mononuclear Cell 95.9 H Fl Polymorphonucl Cell 4.1 H Fluid Comment Straw Ur L.pneumophila Ag Negative 07/25/18 07/25/18 05:15 05:15 WBC 13.8 H D RBC 3.64 Hgb 8.1 L Hct 26.6 L MCV 73.1 L MCH 22.3 L MCHC 30.5 L RDW 23.0 H Plt Count 132 Gran % 83.9 H Lymph % (Auto) 9.9 L [place] % (Auto) 6.1 H Eos % (Auto) 0.0 L Baso % (Auto) 0.1 Gran # 11.56 H Lymph # (Auto) 1.4 [place] # (Auto) 0.8 H Eos # (Auto) 0.0 Baso # (Auto) 0.01 Sodium 140 Potassium 4.2 Chloride 110 H Carbon Dioxide 26 Anion Gap 8 L BUN 14 Creatinine 0.7 L Est GFR ( Amer) > 60 Est GFR (Non-Af Amer) > 60 Random Glucose 89 Calcium 7.4 L Ferritin Total Bilirubin 0.6 AST 31 ALT 24 Alkaline Phosphatase 115 Troponin I < 0.01 Total Protein 6.1 Albumin 2.5 L Globulin 3.5 Albumin/Globulin Ratio 0.7 L Fluid Source Fluid Appearance Fluid WBC Fluid RBC Fluid Tot Cell Count Fluid Mononuclear Cell Fl Polymorphonucl Cell Fluid Comment Ur L.pneumophila Ag Radiology Impressions: Radiology Impressions Paracentesis Ultrasound 07/24/18 10:19 IMPRESSION: Ultrasound-guided paracentesis in the right lower quadrant. 3500 cc of fluid were aspirated. EKG/Cardiology Studies: Cardiology / EKG Studies 07/25/18 04:41 EKG [ELECTROCARDIOGRAM] Stat Comment: Reason For Exam: Patient complained of CP 07/25/18 10:00 EKG [ELECTROCARDIOGRAM] Routine Comment: Reason For Exam: Follow up Review of Systems - Review of Systems Review of Systems: 12 point ROS completed and negative except as described in HPI. Critical Care Progress Note - Nutrition Nutrition: Nutrition Category Date Time Status NPO Diet [DIET] Diets 07/25/18 Breakfast Ordered Assessment/Plan - Assessment and Plan (Free Text) Assessment: 72 M with PMH liver cirrhosis, GI bleed, esophageal varices, COPD, chronic anemia, ETOH abuse, HTN, HLD presenting with abdominal distension and poor oral intake. On admission H/H is 5.1/18.1, patient received 2 units PRBCs (on 07/24) and appropriately responded. On admission, CT A/P shows liver cirrhosis and extensive ascites, patient underwent diagnostic IR paracentesis (on 07/24) and 3500 ccs were drained, cultures pending. Patient is currently under ICU management. Patient will go for EGD as per GI recommendations today. 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 - Hx of multiple admissions with tx paracentesis - Continue protonix and octreotide drip - CT A/P shows liver cirrhosis and extensive ascites on admission - Paracentesis performed by Dr. Scott, 3500 cc drained, cultures pending. SBP ruled out. MELD score of 9, low risk. - AST/ALT today - Blood cultures no growth after 24 hrs - GI to perform EGD today, anemia likely 2/2 anemia of chronic disease - Dr. Oropeza consulted- recs appreciated Pulm: - SOB likely due to ascites and COPD hx - CXR on admission showed no pleural effusion or pneumothorax, findings consistent with COPD - COPD Hx currently no respiratory distress, expiratory wheezing present b/l - Continue Solu-medrol 40 q12 - Continue Azithromycin 250mg and Rocephin 1g - Continue Pulmicort, Atrovent, Brovana, Xopenex - Continue Nasal Canula, pt currently sating at 99% - Sputum culture pending - Dr. Atkins consulted - recommendations appreciated - Nicotine patch ordered Cardio: - H/H 5.1/18.1 on admission, 8.1 this AM - Continue to monitor H/H - Iron studies pending - EKG 07/25: Normal sinus rhythm @ 86, low voltage in limb leads, nonspecific T wave changes PPX: - DVT ppx SCDs - GI ppx Protonix drip - Diet- NPO Patient seen, case reviewed and plan approved by Dr. Farah. Sanchez Colin, PGY-1 <Kleber Farah - Last Filed: 07/25/18 14:29> CCU Objective - Vital Signs / Intake & Output Vital Signs (Last 4 hours): Vital Signs Pulse Ox 07/25/18 13:41 98 Intake and Output (Last 8hrs): Intake & Output 07/24/18 07/25/18 07/25/18 22:59 06:59 14:59 Intake Total 1712.5 840 Output Total 3504 3751 Balance -1791.5 -2911 Weight 115 lb Intake: IV 612.5 360 Left Upper arm 360 360 Oral 1100 480 Output: Urine 250 Urine, Voided 250 Stool 1 Urine/Stool Mix 4 Other 3500 3500 - Medications Active Medications: Active Medications Generic Name Dose Route Start Last Admin Trade Name Freq PRN Reason Stop Dose Admin Arformoterol Tartrate 15 mcg 07/24/18 08:00 07/25/18 08:20 Brovana IH 15 mcg [id number] JUANITA Administration Budesonide 0.25 mg 07/24/18 08:00 07/25/18 08:20 Pulmicort Respules IH 0.25 mg [id number] JUANITA Administration Ceftriaxone Sodium 1 gm in 100 mls @ 100 mls/hr 07/24/18 10:00 07/25/18 09:19 Rocephin 1 Gram Ivpb IVPB 100 mls/hr DAILY JUANITA Administration Protocol Azithromycin 250 mg/ Sodium 250 mls @ 167 mls/hr 07/24/18 10:00 07/25/18 09:20 Chloride IVPB 167 mls/hr DAILY JUANITA Administration Protocol Ipratropium [place] 0.5 mg 07/23/18 21:37 Atrovent IH [id number] PRN Shortness of Breath Levalbuterol HCl 0.63 mg 07/24/18 02:00 07/25/18 14:17 Xopenex IH 0.63 mg [id number] JUANITA Administration Methylprednisolone 40 mg 07/25/18 10:15 07/25/18 11:22 Solu-Medrol IVP Not Given Q12H [facility] Multi-Ingredient Ointment 0 gm 07/23/18 21:45 07/25/18 09:17 Hydrophor Oint TOP 1 cre Q6H JUANITA Administration Nicotine 1 patch 07/25/18 10:00 07/25/18 09:20 Nicoderm Cq TD 1 patch DAILY JUANITA Administration Nystatin 5 ml 07/25/18 18:00 Nystatin Oral Susp PO 08/01/18 18:01 QID JUANITA Pantoprazole Sodium 40 mg 07/25/18 16:00 Protonix Ec Tab PO 0600,1600 [facility] - Patient Studies Lab Studies: Microbiology Studies 07/23/18 22:25 MRSA Culture (Admit) - Final Nose MRSA NOT DETECTED 07/23/18 23:20 Blood Culture - Preliminary Blood NO GROWTH AFTER 24 HOURS Lab Studies 07/25/18 07/25/18 07/24/18 Range/Units 05:15 05:15 17:20 WBC 13.8 H D (4.5-11.0) 10^3/uL RBC 3.64 (3.5-6.1) 10^6/uL Hgb 8.1 L (14.0-18.0) g/dL Hct 26.6 L (42.0-52.0) % MCV 73.1 L (80.0-105.0) fl MCH 22.3 L (25.0-35.0) pg MCHC 30.5 L (31.0-37.0) g/dl RDW 23.0 H (11.5-14.5) % Plt Count 132 (120.0-450.0) 10^3/uL Gran % 83.9 H (50.0-68.0) % Lymph % (Auto) 9.9 L (22.0-35.0) % [place] % (Auto) 6.1 H (1.0-6.0) % Eos % (Auto) 0.0 L (1.5-5.0) % Baso % (Auto) 0.1 (0.0-3.0) % Gran # 11.56 H (1.4-6.5) Lymph # (Auto) 1.4 (1.2-3.4) [place] # (Auto) 0.8 H (0.1-0.6) Eos # (Auto) 0.0 (0.0-0.7) Baso # (Auto) 0.01 (0.0-2.0) K/mm3 Sodium 140 (132-148) mmol/L Potassium 4.2 (3.6-5.0) mmol/L Chloride 110 H (98-107) mmol/L Carbon Dioxide 26 (21-33) mmol/L Anion Gap 8 L (10-20) BUN 14 (7-21) mg/dL Creatinine 0.7 L (0.8-1.5) mg/dl Est GFR ( Amer) > 60 Est GFR (Non-Af Amer) > 60 Random Glucose 89 (70-110) mg/dL Calcium 7.4 L (8.4-10.5) mg/dL Total Bilirubin 0.6 (0.2-1.3) mg/dL AST 31 (17-59) U/L ALT 24 (7-56) U/L Alkaline Phosphatase 115 (38-126) U/L Troponin I < 0.01 ng/mL Total Protein 6.1 (5.8-8.3) g/dL Albumin 2.5 L (3.0-4.8) g/dL Globulin 3.5 gm/dL Albumin/Globulin Ratio 0.7 L (1.1-1.8) Fluid Source Peritoneal/ascites Fluid Appearance Clear (CLEAR) Fluid WBC 169.0 (0.0-300.0) /uL Fluid RBC 60.5 H (0.0-0.0) /uL Fluid Tot Cell Count 100 H (0-0) Fluid Mononuclear Cell 95.9 H (0-0) % Fl Polymorphonucl Cell 4.1 H (0-0) % Fluid Comment Straw Ur L.pneumophila Ag (NEGATIVE) 07/23/18 Range/Units 23:21 WBC (4.5-11.0) 10^3/uL RBC (3.5-6.1) 10^6/uL Hgb (14.0-18.0) g/dL Hct (42.0-52.0) % MCV (80.0-105.0) fl MCH (25.0-35.0) pg MCHC (31.0-37.0) g/dl RDW (11.5-14.5) % Plt Count (120.0-450.0) 10^3/uL Gran % (50.0-68.0) % Lymph % (Auto) (22.0-35.0) % [place] % (Auto) (1.0-6.0) % Eos % (Auto) (1.5-5.0) % Baso % (Auto) (0.0-3.0) % Gran # (1.4-6.5) Lymph # (Auto) (1.2-3.4) [place] # (Auto) (0.1-0.6) Eos # (Auto) (0.0-0.7) Baso # (Auto) (0.0-2.0) K/mm3 Sodium (132-148) mmol/L Potassium (3.6-5.0) mmol/L Chloride (98-107) mmol/L Carbon Dioxide (21-33) mmol/L Anion Gap (10-20) BUN (7-21) mg/dL Creatinine (0.8-1.5) mg/dl Est GFR ( Amer) Est GFR (Non-Af Amer) Random Glucose (70-110) mg/dL Calcium (8.4-10.5) mg/dL Total Bilirubin (0.2-1.3) mg/dL AST (17-59) U/L ALT (7-56) U/L Alkaline Phosphatase (38-126) U/L Troponin I ng/mL Total Protein (5.8-8.3) g/dL Albumin (3.0-4.8) g/dL Globulin gm/dL Albumin/Globulin Ratio (1.1-1.8) Fluid Source Fluid Appearance (CLEAR) Fluid WBC (0.0-300.0) /uL Fluid RBC (0.0-0.0) /uL Fluid Tot Cell Count (0-0) Fluid Mononuclear Cell (0-0) % Fl Polymorphonucl Cell (0-0) % Fluid Comment Ur L.pneumophila Ag Negative (NEGATIVE) Laboratory Results - last 24 hr 07/23/18 07/24/18 07/25/18 23:21 17:20 05:15 WBC 13.8 H D RBC 3.64 Hgb 8.1 L Hct 26.6 L MCV 73.1 L MCH 22.3 L MCHC 30.5 L RDW 23.0 H Plt Count 132 Gran % 83.9 H Lymph % (Auto) 9.9 L [place] % (Auto) 6.1 H Eos % (Auto) 0.0 L Baso % (Auto) 0.1 Gran # 11.56 H Lymph # (Auto) 1.4 [place] # (Auto) 0.8 H Eos # (Auto) 0.0 Baso # (Auto) 0.01 Sodium Potassium Chloride Carbon Dioxide Anion Gap BUN Creatinine Est GFR ( Amer) Est GFR (Non-Af Amer) Random Glucose Calcium Total Bilirubin AST ALT Alkaline Phosphatase Troponin I Total Protein Albumin Globulin Albumin/Globulin Ratio Fluid Source Peritoneal/ascites Fluid Appearance Clear Fluid WBC 169.0 Fluid RBC 60.5 H Fluid Tot Cell Count 100 H Fluid Mononuclear Cell 95.9 H Fl Polymorphonucl Cell 4.1 H Fluid Comment Straw Ur L.pneumophila Ag Negative 07/25/18 05:15 WBC RBC Hgb Hct MCV MCH MCHC RDW Plt Count Gran % Lymph % (Auto) [place] % (Auto) Eos % (Auto) Baso % (Auto) Gran # Lymph # (Auto) [place] # (Auto) Eos # (Auto) Baso # (Auto) Sodium 140 Potassium 4.2 Chloride 110 H Carbon Dioxide 26 Anion Gap 8 L BUN 14 Creatinine 0.7 L Est GFR ( Amer) > 60 Est GFR (Non-Af Amer) > 60 Random Glucose 89 Calcium 7.4 L Total Bilirubin 0.6 AST 31 ALT 24 Alkaline Phosphatase 115 Troponin I < 0.01 Total Protein 6.1 Albumin 2.5 L Globulin 3.5 Albumin/Globulin Ratio 0.7 L Fluid Source Fluid Appearance Fluid WBC Fluid RBC Fluid Tot Cell Count Fluid Mononuclear Cell Fl Polymorphonucl Cell Fluid Comment Ur L.pneumophila Ag Radiology Impressions: Radiology Impressions Paracentesis Ultrasound 07/24/18 10:19 IMPRESSION: Ultrasound-guided paracentesis in the right lower quadrant. 3500 cc of fluid were aspirated. EKG/Cardiology Studies: Cardiology / EKG Studies 07/25/18 04:41 EKG [ELECTROCARDIOGRAM] Stat Comment: Reason For Exam: Patient complained of CP 07/25/18 10:00 EKG [ELECTROCARDIOGRAM] Routine Comment: Reason For Exam: Follow up Critical Care Progress Note - Nutrition Nutrition: Nutrition Category Date Time Status Altered GI/Hepatic Diet [DIET] Diets 07/25/18 Dinner Ordered Liquid Diet [DIET] Diets 07/25/18 Lunch Ordered Assessment/Plan - Assessment and Plan (Free Text) Assessment: Patient seen and examined on rounds, with resident, agree with note with following additions/exceptions: Patient is 72yo male with PMH liver cirrhosis, GI blood, and esophageal varices, COPD, chronic anemia, alcohol abuse, HTN, HLD who presents with abdominal distension, poor oral intake, Anemia, GIB, and COPD exacerbation. Pt currently afebrile, BP stable, in NAD, comfortable HH has been stable, no further prbc transfusions On PPI, Octreotide drip Patient s/p paracentesis yesterday by IR, no evidence of SBP on cell profile GIB Anemia Liver Cirrhosis Ascites COPD exacerbation HTN HLD Recommend: - supp o2 as needed, duonebs PRN - taper Solumedrol 40mg IV Q12hr - Rocephin, Azithro - NPO - PPI drip - Octreotide drip - Follow up GI, EGD today - monitor CBC - GI ppx - DVT ppx, SCDs - Monitor in MICU
--- NOTE | 2018-07-25 09:31 | CARD ---
APPROVED REPORT Date of service: 07/25/2018 EKG Measurement Heart [id number] <Conclusion> Normal sinus rhythm Low voltage QRS limb leads Possible ASMI Nonspecific T wave abnormality No change
--- NOTE | 2018-07-25 13:18 | PN ---
PULMONARY PROGRESS NOTE DATE: 07/25/2018 REFERRING PHYSICIAN: Dr. Evie Ponce SUBJECTIVE: The patient is sitting up in bed. No acute distress. No overnight events reported. The patient is scheduled for EGD today. Noted with cough. No hemoptysis, hematemesis, hematuria, leg pain, leg swelling, or diarrhea reported. The patient had paracentesis yesterday and was transfused 2 units of packed RBCs. OBJECTIVE: GENERAL: No acute distress. VITAL SIGNS: Pulse 85, temperature 98.3, and oxygen saturation 100%. HEENT: Moist mucous membranes. NECK: Supple. No JVD. RESPIRATORY: Mild wheezing bilaterally. Few scattered rhonchi. CARDIOVASCULAR: S1, S2 audible. ABDOMEN: Positive ascites, but softer today. EXTREMITIES: No bilateral lower extremity edema. NEUROLOGIC: Awake, alert, and verbal. Follows simple commands. MEDICATIONS: Reviewed. Brovana 50 mcg every 12 hours, azithromycin 250 mg daily, Pulmicort 0.25 mg inhalation every 12 hours, Rocephin 1 g daily, Atrovent 0.5 mg inhalation every 6 hours p.r.n., Xopenex 0.63 mg inhalation every 6 hours, Solu-Medrol 40 mg IV push every 12 hours, Hydrophor Ointment topically every 6 hours to affected area, nicotine patch daily, octreotide acetate 1250 mcg every 24 hours, and Protonix 40 mg. LABORATORY DATA: Reviewed. WBC 13.8, RBC 3.64, hemoglobin 8.1, hematocrit 26.6, and platelets 132. Sodium 140, potassium 4.2, chloride 110, carbon dioxide 26, anion gap 8, BUN 14, creatinine 0.7, GFR greater than 60, random glucose 89, calcium 7.4, total bilirubin 0.6. AST 31, ALT 24, alkaline phosphatase 115, troponin less than 0.01. Total protein 6.1, albumin 2.5, globulin 3.5, and albumin-globulin ratio 0.7. Influenza type A and B negative. IMPRESSION AND PLAN: Chronic obstructive lung disease exacerbation, cirrhosis of liver, ascites, anemia, history of hepatitis B, and esophageal varices. Pulmonary point of view, continue inhaled bronchodilators; continue antibiotic therapy, gastric prophylaxis; continue IV steroids. We will repeat labs in the morning. Continue sequential compression devices for deep venous thrombosis prophylaxis. Head of bed elevated at 45 degrees. EGD is scheduled for today. This patient was seen and examined with Dr. Atkins. Discussed assessment and plan as described above. Thank you for this consult. We will follow with you. More than 35 minutes critical care time spent with this patient. Garry Gutierrez APN Theodore Atkins MD
[2018-07-25] MEDS ORDERED: Propofol 10 mg/ml Inj (20 ML) ONE (13:36)
--- NOTE | 2018-07-25 15:01 | CARD ---
APPROVED REPORT Date of service: 07/25/2018 EKG Measurement Heart [id number] <Conclusion> Normal sinus rhythm Low voltage QRS STTW changes c/w ischemia
--- NOTE | 2018-07-25 15:09 | US ---
Date of service: 07/25/2018 PROCEDURE: Ultrasound Doppler of the portal vein HISTORY: eval portal vein COMPARISON: Comparison is made to the previous CT of the abdomen and pelvis dated 07/23/2018. TECHNIQUE: Ultrasound Doppler evaluation of the portal vein was performed. FINDINGS: The portal vein is patent demonstrate hepatopetal normal blood flow direction. The hepatic veins are also patent. There is ascites noted in the abdomen. Cirrhotic manifestation of the liver are again noted. IMPRESSION: The portal vein is patent demonstrates normal direction of blood flow. The hepatic veins are patent.
[2018-07-25] MEDS ORDERED: Pantoprazole 40 mg EC Tab PO SCH (16:00)
--- NOTE | 2018-07-25 16:22 | CP.PCM.APN ---
Subjective - Date & Time of Evaluation Date of Evaluation: 07/25/18 Time of Evaluation: 10:00 - Subjective Subjective: 72 y/o male with PMH liver cirrhosis, GI blood, and esophageal varices, COPD, chronic anemia, alcohol abuse, HTN, HLD who presents with abdominal distension and poor oral intake x 10 days. On admission, H/H is 5.1/18.1, CT A/P shows li cherelle cirrhosis with extensive ascites. 2 units of RBCs were ordered with appropriate response. Patient currently in ICU for observation. Pt. s/p paracentesis, with 3500 fluid drained. Pt. seen and examined at bedside. . Review of Systems - Constitutional Constitutional: As Per HPI - EENT Eyes: As Per HPI Ears: As Per HPI Nose/Mouth/Throat: As Per HPI - Cardiovascular Cardiovascular: As Per HPI - Respiratory Respiratory: As Per HPI - Gastrointestinal Gastrointestinal: As Per HPI - Genitourinary Genitourinary: As Per HPI - Reproductive: Male Reproductive:Male: As Per HPI - Musculoskeletal Musculoskeletal: As Per HPI - Integumentary Integumentary: As Per HPI - Neurological Neurological: As Per HPI - Psychiatric Psychiatric: As Per HPI - Endocrine Endocrine: As Per HPI - Hematologic/Lymphatic Hematologic: As Per HPI Objective - Vital Signs/Intake and Output Vital Signs (last 24 hours): Temp Pulse Resp BP Pulse Ox 98.3 F 85 22 114/62 98 07/24/18 16:00 07/25/18 05:46 07/24/18 09:00 07/24/18 09:00 07/25/18 13:41 Intake and Output: 07/25/18 07/25/18 06:59 18:59 Intake Total 1092.5 Output Total 3751 Balance -2658.5 - Medications Medications: Current Medications Arformoterol Tartrate (Brovana) 15 mcg IH [id number] [facility] Last Admin: 07/25/18 08:20 Dose: 15 mcg Budesonide (Pulmicort Respules) 0.25 mg IH [id number] [facility] Last Admin: 07/25/18 08:20 Dose: 0.25 mg Ceftriaxone Sodium (Rocephin 1 Gram Ivpb) 1 gm in 100 mls @ 100 mls/hr IVPB DAILY [facility]; Protocol Last Admin: 07/25/18 09:19 Dose: 100 mls/hr Azithromycin 250 mg/ Sodium (Chloride) 250 mls @ 167 mls/hr IVPB DAILY [facility]; Protocol Last Admin: 07/25/18 09:20 Dose: 167 mls/hr Ipratropium [place] (Atrovent) 0.5 mg IH [id number] PRN PRN Reason: Shortness of Breath Levalbuterol HCl (Xopenex) 0.63 mg IH [id number] [facility] Last Admin: 07/25/18 14:17 Dose: 0.63 mg Methylprednisolone (Solu-Medrol) 40 mg IVP Q12H [facility] Last Admin: 07/25/18 11:22 Dose: Not Given Multi-Ingredient Ointment (Hydrophor Oint) 0 gm TOP Q6H [facility] Last Admin: 07/25/18 09:17 Dose: 1 cre Nicotine (Nicoderm Cq) 1 patch TD DAILY [facility] Last Admin: 07/25/18 09:20 Dose: 1 patch Nystatin (Nystatin Oral Susp) 5 ml PO QID [facility] Stop: 08/01/18 18:01 Pantoprazole Sodium (Protonix Ec Tab) 40 mg PO 0600 [facility] Spironolactone (Aldactone) 100 mg PO DAILY [facility] - Labs Labs: 07/25/18 05:15 07/25/18 05:15 PT 14.8 SECONDS (9.4-12.5) H 07/23/18 17:34 INR 1.29 07/23/18 17:34 APTT 34.4 Seconds (25.1-36.5) 07/23/18 17:34 - Constitutional Appears: Unkempt, Agitated, Chronically Ill - Head Exam Head Exam: NORMAL INSPECTION - ENT Exam ENT Exam: Mucous Membranes Moist - Respiratory Exam Respiratory Exam: Wheezes - Cardiovascular Exam Cardiovascular Exam: REGULAR RHYTHM - GI/Abdominal Exam GI & Abdominal Exam: Distended, Firm - Rectal Exam Rectal Exam: Deferred - Extremities Exam Extremities Exam: Normal Inspection - Neurological Exam Neurological Exam: Alert, Awake Assessment and Plan - Assessment and Plan (Free Text) Assessment: Impressions Paracentesis Ultrasound 07/24/18 10:19 IMPRESSION: Ultrasound-guided paracentesis in the right lower quadrant. 3500 cc of fluid were aspirated. Abdomen Ultrasound 07/25/18 10:40 IMPRESSION: The portal vein is patent demonstrates normal direction of blood flow. The hepatic veins are patent. Assessment/ Plan: 1. Ascites 2nd to Decompensated ETOH Cirrhosis s/p Paracentesis by IR, 3500 cc fluid drained 2. Anemia R/O GI Bleed- Improved s/p transfusion of 2 units PRBCs. Continue Sandostatin IV, Protonix IV drips as per GI. MOnitor and trend, Cbc. Patient for endoscopy this afternoon. 3. History Of Esophageal Varices Secondary to Decompensated Cirrhosis. 4. Hx COPD Pt currently wheezing maybe likely to volume overload in setting of ascites, continue duonebs and monitor respiratory status. Currently receiving IV solumedrol. Will monitor clinical status and follow closely. Awaiting PT eval. Pt. is for transfer to regular floor. SW/CM planning for DC.
[2018-07-25] MEDS: Nystatin 100,000 Units/ml Oral Susp 5 ml UD PO SCH ×2 (17:39→22:12)
[2018-07-26] MEDS: Levalbuterol 0.63 MG/3 ML Inhal Soln UD IH SCH ×4 (01:23→20:41)
--- NOTE | 2018-07-26 05:29 | PN ---
DATE: 07/25/2018 SUBJECTIVE: The patient was seen and examined at bedside on 07/25/2018, looking comfortable. I saw the patient in the unit. Then the patient was transferred to the medical floor, status post paracentesis yesterday, transfused two units of packed RBCs. PHYSICAL EXAMINATION: VITAL SIGNS: Pulse 85, temperature 98.3, oxygen saturation 100%, blood pressure 110/80. HEENT: Head normocephalic and atraumatic. Eyes PERRLA. Extraocular muscles intact. Conjunctivae clear. Nose patent. Mucous membrane moist. NECK: Supple. No carotid bruit. No JVD or thyromegaly. CHEST: Bilaterally symmetrical. HEART: S1 and S2 positive. LUNGS: Clear to auscultation. ABDOMEN: Soft. Bowel sounds positive. No organomegaly. EXTREMITIES: No edema. No cyanosis. NEUROLOGIC: The patient is awake, alert; follows simple commands. MEDICATIONS: Brovana, Pulmicort, Rocephin, Xopenex, Solu-Medrol, nicotine patch, octreotide, Protonix. LABORATORY DATA: White blood cell 13.8, hemoglobin 8.1, hematocrit 26.6, platelets 132. BUN 14, creatinine 0.7, AST 31, ALT 24. ASSESSMENT AND PLAN: Mr. Esteban Carrion 72 years old male with chronic obstructive lung disease exacerbation; cirrhosis of the liver; ascites, multiple times had paracentesis, this time again he came with ascites, paracentesis done by Dr. Juan Miguel Scott; history of hepatitis B; esophageal varices; history of hernia operation a couple of months ago; history of smoking, and drinking. Continue antibiotics and gastric prophylaxis. Continue IV steroids. Gastrointestinal and deep venous thrombosis prophylaxis. Sequential compression devices. The patient went for esophagogastroduodenoscopy today. Z-line was regular and was found 36 cm from the inside. A 3 cm hiatal hernia was found. There is no endoscopic evidence of varices in the entire esophagus. There is edema and granulocyte was found in the lower third of the esophagus. Findings are suggestive of inflammation. Esophageal plaques were found consistent with candidiasis. Portal hypertension; gastropathy; duodenitis, no specimen collected. Nystatin suspension was given for one week by Dr. Oropeza. Performed colonoscopy as outpatient or we will do on Saturday. Gastrointestinal and deep venous thrombosis prophylaxis. Repeat labs. Length of time discussion done with patient and nursing staff. Appreciated Dr. Atkins and Dr. Oropeza's input. We will follow up. Evie Ponce MD
[2018-07-26] MEDS: Pantoprazole 40 mg EC Tab PO SCH (05:32)
[2018-07-26] MEDS: Petrolatum-Mineral Oil Oint (100gm) TOP SCH ×4 (05:41→22:07)
[2018-07-26] MEDS: Nystatin 100,000 Units/ml Oral Susp 5 ml UD PO SCH ×4 (10:05→22:14)
[2018-07-26] MEDS: cefTRIAXone 1 gm 1 GM/100 ML BAG IVPB SCH (10:06)
[2018-07-26] MEDS: MethylPREDNISolone 40 mg Vial IVP SCH ×2 (10:11→22:10)
[2018-07-26] MEDS: Arformoterol 15 mcg/2 ml Inh Sol IH SCH ×2 (10:19→20:41)
[2018-07-26] MEDS: Budesonide 0.25 mg/2 ml Inhal Susp UD IH SCH ×2 (10:26→20:41)
[2018-07-26] MEDS: Azithromycin 250 MG in Sodium Chloride 0.9% 250 ML IVPB SCH (10:53)
--- NOTE | 2018-07-26 12:22 | CP.PCM.PN ---
<Charlie Marie - Last Filed: 07/26/18 13:43> Subjective - Date & Time of Evaluation Date of Evaluation: 07/26/18 Time of Evaluation: 11:30 - Subjective Subjective: PGY-4 GI Fellow Prog Note Pt lying in bed when seen this AM. State abd feels full and that he needs to poop more often/substantially. He and nursing report bowel movement overnight. 5 point ROS negative other than stated above Objective - Vital Signs/Intake and Output Vital Signs (last 24 hours): Temp Pulse Resp BP Pulse Ox 98.9 F 85 20 113/67 96 07/26/18 06:00 07/26/18 06:00 07/26/18 06:00 07/26/18 06:00 07/26/18 06:00 - Medications Medications: Current Medications Arformoterol Tartrate (Brovana) 15 mcg IH [id number] [facility] Last Admin: 07/26/18 10:19 Dose: 15 mcg Budesonide (Pulmicort Respules) 0.25 mg IH [id number] [facility] Last Admin: 07/26/18 10:26 Dose: 0.25 mg Ceftriaxone Sodium (Rocephin 1 Gram Ivpb) 1 gm in 100 mls @ 100 mls/hr IVPB DAILY [facility]; Protocol Last Admin: 07/26/18 10:06 Dose: 100 mls/hr Azithromycin 250 mg/ Sodium (Chloride) 250 mls @ 167 mls/hr IVPB DAILY [facility]; Protocol Last Admin: 07/26/18 10:53 Dose: 167 mls/hr Ipratropium [place] (Atrovent) 0.5 mg IH [id number] PRN PRN Reason: Shortness of Breath Levalbuterol HCl (Xopenex) 0.63 mg IH [id number] [facility] Last Admin: 07/26/18 10:19 Dose: 0.63 mg Methylprednisolone (Solu-Medrol) 40 mg IVP Q12H [facility] Last Admin: 07/26/18 10:11 Dose: 40 mg Multi-Ingredient Ointment (Hydrophor Oint) 0 gm TOP Q6H [facility] Last Admin: 07/26/18 10:13 Dose: 1 cre Nicotine (Nicoderm Cq) 1 patch TD DAILY [facility] Last Admin: 07/26/18 10:05 Dose: 1 patch Nystatin (Nystatin Oral Susp) 5 ml PO QID [facility] Stop: 08/01/18 18:01 Last Admin: 07/26/18 10:05 Dose: 5 ml Pantoprazole Sodium (Protonix Ec Tab) 40 mg PO 0600 [facility] Last Admin: 07/26/18 05:32 Dose: 40 mg Spironolactone (Aldactone) 100 mg PO DAILY [facility] Last Admin: 07/26/18 10:11 Dose: 100 mg - Labs Labs: 07/25/18 05:15 07/25/18 05:15 PT 14.8 SECONDS (9.4-12.5) H 07/23/18 17:34 INR 1.29 07/23/18 17:34 APTT 34.4 Seconds (25.1-36.5) 07/23/18 17:34 - Constitutional Appears: No Acute Distress, Chronically Ill - Head Exam Head Exam: ATRAUMATIC, NORMAL INSPECTION - ENT Exam ENT Exam: Mucous Membranes Dry. absent: Mucous Membranes Moist - GI/Abdominal Exam GI & Abdominal Exam: Distended (moderately distended, firm, tympanic in upper quads), Normal Bowel Sounds. absent: Bruit, Firm, Guarding, Rigid, Soft, T enderness, Hernia, Mass, Organomegaly, Pulsatile Mass, Rebound Assessment and Plan - Assessment and Plan (Free Text) Assessment: 72yo male with PMHx significant for decompensated EtOH cirrhosis c/b ascites and bleeding esophageal varices, h/o HBV and HCV exposure, EtOH abuse, COPD and tobacco abuse, blindness and decreased hearing acuity who presented to the ED for progressive distention of the abdomen -Decompensated EtOH cirrhosis -Ascites 2/2 above -Anemia R/O GI blood loss: No obv source seen on EGD 07/25 -Esophageal varices, h/o -EtOH abuse -HCV exposure (HCV Ab positive), unknown if chronically infected -HBV exposure and clearance per prior lab work -COPD Plan: - Abd+Pelvis CT with PO contrast to eval for possible early SBO/ileus as noticeably distended and tympanic today - If CT negative, will plan to prep with Mag Citrate today and tomorrow for Colonoscopy on 07/28 - Spironolactone 100 mg PO QD - Likely start furosemide 20 mg PO tomorrow - Low Na diet - Pantoprazole PO - Para w/o SBP, 3.5 L removed - Cont with Ctx 1 g x 7 days for ppx Pt discussed with Dr. Oropeza; please see attestation for further recs/changes. Charlie Marie, PGY-4 <Deyanira Oropeza V - Last Filed: 07/27/18 18:40> Objective - Vital Signs/Intake and Output Vital Signs (last 24 hours): Temp Pulse Resp BP Pulse Ox 97.5 F L 81 20 117/67 100 07/26/18 22:00 07/26/18 22:00 07/26/18 22:00 07/26/18 22:00 07/26/18 22:00 Intake and Output: 07/26/18 07/27/18 18:59 06:59 Intake Total 1410 Output Total 200 Balance 1210 - Medications Medications: Current Medications Arformoterol Tartrate (Brovana) 15 mcg IH [id number] [facility] Last Admin: 07/26/18 20:41 Dose: 15 mcg Budesonide (Pulmicort Respules) 0.25 mg IH [id number] [facility] Last Admin: 07/26/18 20:41 Dose: 0.25 mg Ceftriaxone Sodium (Rocephin 1 Gram Ivpb) 1 gm in 100 mls @ 100 mls/hr IVPB DAILY [facility]; Protocol Last Admin: 07/26/18 10:06 Dose: 100 mls/hr Azithromycin 250 mg/ Sodium (Chloride) 250 mls @ 167 mls/hr IVPB DAILY [facility]; Protocol Last Admin: 07/26/18 10:53 Dose: 167 mls/hr Ipratropium [place] (Atrovent) 0.5 mg IH [id number] PRN PRN Reason: Shortness of Breath Levalbuterol HCl (Xopenex) 0.63 mg IH [id number] [facility] Last Admin: 07/26/18 20:41 Dose: 0.63 mg Methylprednisolone (Solu-Medrol) 40 mg IVP Q12H [facility] Last Admin: 07/26/18 22:10 Dose: Not Given Multi-Ingredient Ointment (Hydrophor Oint) 0 gm TOP Q6H [facility] Last Admin: 07/26/18 22:07 Dose: Not Given Nicotine (Nicoderm Cq) 1 patch TD DAILY [facility] Last Admin: 07/26/18 10:05 Dose: 1 patch Nystatin (Nystatin Oral Susp) 5 ml PO QID [facility] Stop: 08/01/18 18:01 Last Admin: 07/26/18 22:14 Dose: Not Given Pantoprazole Sodium (Protonix Ec Tab) 40 mg PO 0600 [facility] Last Admin: 07/26/18 05:32 Dose: 40 mg Spironolactone (Aldactone) 100 mg PO DAILY [facility] Last Admin: 07/26/18 10:11 Dose: 100 mg - Labs Labs: 07/25/18 05:15 07/25/18 05:15 PT 14.8 SECONDS (9.4-12.5) H 07/23/18 17:34 INR 1.29 07/23/18 17:34 APTT 34.4 Seconds (25.1-36.5) 07/23/18 17:34 Attending/Attestation - Attestation I have personally seen and examined this patient.: Yes I have fully participated in the care of the patient.: Yes I have reviewed all pertinent clinical information, including history, physical exam and plan: Yes Notes (Text): This is an addendum to GI followup report dictated by the GI Fellow. The patient was seen and evaluated earlier. Medical records, lab studies, imagings were reviewed. Last 24 hours events reviewed. Agreed with the above treatment plan as outlined in GI Fellow's notes with the addition of the following Patient has increased ascites, abdominal distension. Would request CT with PO contrast to further evaluate prior to proceeding with colonoscopy prep. Follow-up hemoglobin. 07/26/18 23:10 07/27/18 18:39
[2018-07-26] MEDS ORDERED: Iohexol 240 (50 ml) ONE (15:41)
--- NOTE | 2018-07-26 19:51 | PN ---
DATE: 07/26/2018 PULMONARY PROGRESS NOTE REFERRING PHYSICIAN: Evie Ponce MD SUBJECTIVE: The patient is sitting up at bedside. No acute distress. No overnight events reported. The patient reports feeling constipated. No headache, rhinitis, cough, shortness of breath, chest pain, abdominal pain, nausea, vomiting, leg pain or leg swelling reported. OBJECTIVE: VITAL SIGNS: Blood pressure 110/69, pulse 85, temperature 98.9, oxygen saturation 99. GENERAL: No acute distress. HEENT: Moist mucous membranes. NECK: Supple. No JVD. RESPIRATORY: Mild audible wheezing bilaterally. CARDIOVASCULAR: S1 and S2 audible. ABDOMEN: Positive ascites. Distended. Normal bowel sounds. EXTREMITIES: No bilateral lower extremity edema. NEUROLOGIC: Awake, alert, verbal. Follows simple commands. MEDICATIONS: Reviewed. Brovana 16 mcg every 12 hours, azithromycin 250 mg daily, Pulmicort 0.25 mg inhalation every 12 hours, Rocephin 1 g daily, Atrovent 0.5 mg every 6 hours p.r.n., Xopenex 0.63 mg inhalation every 6 hours, Solu-Medrol 40 mg every 12 hours, nicotine patch daily, nystatin oral suspension 5 mL four times a day, Protonix 40 mg daily, spironolactone 100 mg daily. LABORATORY DATA: Reviewed. No new labs since yesterday. IMPRESSION AND PLAN: Chronic obstructive lung disease exacerbation, cirrhosis of the liver, ascites, anemia, history of hepatitis B, esophageal varices. The patient is to have CT of abdomen done. Pulmonary point of view, continue inhaled bronchodilators. Continue antibiotics therapy, gastric prophylaxis. Continue intravenous steroids. Continue sequential compression devices for deep venous thrombosis prophylaxis, head of bed elevated 45 degrees. The patient was seen and examined with Dr. Atkins. Discussed assessment and plan as described above. Thank you for this consult. We will follow with you. Garry Gutierrez APN Theodore Atkins MD [facility] # [id number]
[2018-07-27] MEDS: Levalbuterol 0.63 MG/3 ML Inhal Soln UD IH SCH ×4 (01:51→20:53)
--- NOTE | 2018-07-27 04:20 | PN ---
DATE: 07/26/2018 SUBJECTIVE: The patient is a 72-year-old male. The patient was seen and examined at the bedside on 07/26/2018. Looking comfortable. No fever. No chills. No hematuria or hematochezia. No swelling of the legs. No chest pain. No palpitation. No headache. No dizziness. Still complaining of abdominal pain and cannot breathe. The patient is legally blind on both eyes. PHYSICAL EXAMINATION: VITAL SIGNS: Blood pressure 110/59, pulse 85, temperature 98.9, pulse oximetry 99. HEENT: Head: Normocephalic and atraumatic. Eyes: PERRLA. Extraocular muscles intact. Conjunctivae clear. Nose patent. Mucous membranes moist. NECK: Supple. No carotid bruit. No JVD or thyromegaly. CHEST: Bilaterally symmetrical. HEART: S1 and S2 positive. LUNGS: Clear to auscultation. ABDOMEN: Soft. Bowel sounds present. No organomegaly. EXTREMITIES: No edema. No cyanosis. NEUROLOGIC: The patient is awake and alert, follows simple commands. MEDICATIONS: Brovana, azithromycin, Pulmicort, Rocephin, Atrovent, Xopenex, Solu-Medrol, nystatin, Protonix, spironolactone. LABORATORY DATA: We do not have recent labs today, but I have reviewed old labs. ASSESSMENT AND PLAN: Mr. Carrion is a thin 72-year-old male with multiple medical problems, history of ethanol abuse, ascites, chronic obstructive pulmonary disease with exacerbation, cirrhosis of the liver, anemia, history of hepatitis B, esophageal varices. A CT scan of the abdomen is done. The patient has multiple times of paracentesis. Gastrointestinal and deep venous thrombosis prophylaxis. Continue sequential compression devices for deep vein thrombosis prophylaxis. CAT scan of the abdomen and pelvis, the results are pending. Gastrointestinal and deep venous thrombosis prophylaxis. We will follow up. Evie Ponce MD
[2018-07-27] MEDS: Petrolatum-Mineral Oil Oint (100gm) TOP SCH ×4 (07:36→21:41)
[2018-07-27] MEDS: Pantoprazole 40 mg EC Tab PO SCH (07:37)
[2018-07-27] MEDS: Arformoterol 15 mcg/2 ml Inh Sol IH SCH ×2 (07:49→20:53)
[2018-07-27] MEDS: Budesonide 0.25 mg/2 ml Inhal Susp UD IH SCH ×2 (07:49→20:53)
[2018-07-27] MEDS: Nystatin 100,000 Units/ml Oral Susp 5 ml UD PO SCH ×4 (09:50→21:41)
[2018-07-27] MEDS: MethylPREDNISolone 40 mg Vial IVP SCH ×2 (09:50→16:45)
--- NOTE | 2018-07-27 09:50 | CT ---
Date of service: 07/26/2018 PROCEDURE: CT Abdomen and Pelvis with contrast HISTORY: Abdominal distension small-bowel obstruction suspected. Relevant interventional procedure(s): 07/24/2018 paracentesis with retrieval of 3.5 L of fluid. COMPARISON: 07/23/2018 CT abdomen and pelvis. 07/25/2018 abdominal ultrasound. TECHNIQUE: Oral contrast only. Radiation dose: Total exam DLP = 282.47 mGy-cm. This CT exam was performed using one or more of the following dose reduction techniques: Automated exposure control, adjustment of the mA and/or kV according to patient size, and/or use of iterative reconstruction technique. FINDINGS: LOWER THORAX: New small bilateral pleural effusions and compressive atelectasis. LIVER: Cirrhotic liver. GALLBLADDER AND BILE DUCTS: Cholelithiasis without CT evidence of acute cholecystitis. PANCREAS: Unremarkable. No gross lesion or ductal dilatation. SPLEEN: Splenomegaly. ADRENALS: Unremarkable. No mass. KIDNEYS AND URETERS: Of unremarkable. No hydronephrosis. No solid mass. VASCULATURE: Atherosclerotic calcification and mural plaque present. Findings are seen throughout the aorta which is non aneurysmal. BOWEL: Unremarkable. No obstruction. No gross mural thickening. APPENDIX: A normal appendix is visualized in it's entirety. PERITONEUM: Persistent large volume intra-abdominal ascites despite removal of 3.5 L of fluid between the prior CT scan 07/23/2018 and the current examination. LYMPH NODES: Unremarkable. No enlarged lymph nodes. BLADDER: Unremarkable. REPRODUCTIVE: Unremarkable. BONES: No acute fracture. OTHER FINDINGS: None. IMPRESSION: Large volume intra-abdominal pelvic ascites. Cirrhotic liver, splenomegaly unchanged compared to the prior study. Cholelithiasis without CT evidence of acute cholecystitis. Additional benign and/or incidental findings described above. Concordant results (preliminary interpretation) provided by Evoleen. Procedure Completed: 21:42. Preliminary Report: Dictated and Authenticated: 22:10. Final Interpretation: 09:44. July 27, 2018
[2018-07-27] MEDS: cefTRIAXone 1 gm 1 GM/100 ML BAG IVPB SCH (09:53)
[2018-07-27] MEDS: Azithromycin 250 MG in Sodium Chloride 0.9% 250 ML IVPB SCH (10:54)
[2018-07-27 12:05] LABS: EOS % 0.1 % (1.5-5.0); GRAN # 8.72 (1.4-6.5); GRAN % 81.5 % (50.0-68.0); LYMPH # 1.1 (1.2-3.4); LYMPH % 9.8 % (22.0-35.0); MEAN CORPUSCULAR HGB CONC 29.3 g/dl (31.0-37.0); MONO # 0.9 (0.1-0.6); MONO % 8.6 % (1.0-6.0); PLATELET COUNT 133 10^3/uL (120.0-450.0); RBC 3.64 10^6/uL (3.5-6.1); RED CELL DISTRIBUTION WIDTH 25.7 % (11.5-14.5); WHITE BLOOD COUNT 10.7 10^3/uL (4.5-11.0)
[2018-07-27 12:21] LABS: ALB/GLOB RATIO 0.7 (1.1-1.8); ALBUMIN 2.5 g/dL (3.0-4.8); ALT/SGPT 35 U/L (7-56); AST/SGOT 29 U/L (17-59); BLOOD UREA NITROGEN 20 mg/dL (7-21); CALCIUM 7.1 mg/dL (8.4-10.5); GFR NON-AFRICAN AMERICAN > 60
--- NOTE | 2018-07-27 14:13 | CP.PCM.PN ---
<Charlie Marie - Last Filed: 07/27/18 14:07> Subjective - Date & Time of Evaluation Date of Evaluation: 07/27/18 Time of Evaluation: 11:15 - Subjective Subjective: PGY-4 GI Fellow Prog Note Pt lying bed when seen this AM. States doing OK but with persistent abd distension. States moving bowels. 5 point ROS negative other than stated above Objective - Vital Signs/Intake and Output Vital Signs (last 24 hours): Temp Pulse Resp BP Pulse Ox 98 F 80 18 138/67 100 07/27/18 10:00 07/27/18 10:00 07/27/18 10:00 07/27/18 13:29 07/26/18 22:00 - Medications Medications: Current Medications Alprazolam (Xanax) 0.125 mg PO DAILY [facility]; Protocol Stop: 08/03/18 13:16 Last Admin: 07/27/18 13:29 Dose: 0.125 mg Arformoterol Tartrate (Brovana) 15 mcg IH [id number] [facility] Last Admin: 07/27/18 07:49 Dose: 15 mcg Budesonide (Pulmicort Respules) 0.25 mg IH [id number] [facility] Last Admin: 07/27/18 07:49 Dose: 0.25 mg Furosemide (Lasix) 40 mg PO DAILY [facility] Last Admin: 07/27/18 13:29 Dose: 40 mg Ipratropium [place] (Atrovent) 0.5 mg IH [id number] PRN PRN Reason: Shortness of Breath Last Admin: 07/27/18 07:49 Dose: 0.5 mg Levalbuterol HCl (Xopenex) 0.63 mg IH [id number] [facility] Last Admin: 07/27/18 13:22 Dose: 0.63 mg Methylprednisolone (Solu-Medrol) 40 mg IVP Q12H [facility] Last Admin: 07/27/18 09:50 Dose: 40 mg Multi-Ingredient Ointment (Hydrophor Oint) 0 gm TOP Q6H [facility] Last Admin: 07/27/18 09:55 Dose: 1 cre Nicotine (Nicoderm Cq) 1 patch TD DAILY [facility] Last Admin: 07/27/18 10:51 Dose: Not Given Nystatin (Nystatin Oral Susp) 5 ml PO QID [facility] Stop: 08/01/18 18:01 Last Admin: 07/27/18 09:50 Dose: 5 ml Pantoprazole Sodium (Protonix Ec Tab) 40 mg PO 0600 [facility] Last Admin: 07/27/18 07:37 Dose: Not Given Spironolactone (Aldactone) 100 mg PO DAILY [facility] Last Admin: 07/27/18 09:51 Dose: 100 mg - Labs Labs: 07/27/18 11:55 07/27/18 11:55 PT 14.8 SECONDS (9.4-12.5) H 07/23/18 17:34 INR 1.29 07/23/18 17:34 APTT 34.4 Seconds (25.1-36.5) 07/23/18 17:34 - Constitutional Appears: No Acute Distress, Chronically Ill - Head Exam Head Exam: ATRAUMATIC, NORMAL INSPECTION - ENT Exam ENT Exam: Mucous Membranes Dry. absent: Mucous Membranes Moist - Respiratory Exam Respiratory Exam: absent: Accessory Muscle Use, Respiratory Distress - GI/Abdominal Exam GI & Abdominal Exam: Distended, Firm, Normal Bowel Sounds. absent: Bruit, Guarding, Rigid, Soft, Tenderness, Mass, Organomegaly, Pulsatile Mass Additional comments: sig distension and firm but not ttp, +flank fullness, severity of distension limits exam Assessment and Plan - Assessment and Plan (Free Text) Assessment: 72yo male with PMHx significant for decompensated EtOH cirrhosis c/b ascites and bleeding esophageal varices, h/o HBV and HCV exposure, EtOH abuse, COPD and tobacco abuse, blindness and decreased hearing acuity who presented to the ED for progressive distention of the abdomen -Decompensated EtOH cirrhosis -Ascites 2/2 above -Anemia R/O GI blood loss: No obv source seen on EGD 07/25 -Esophageal varices, h/o -EtOH abuse -HCV exposure (HCV Ab positive), unknown if chronically infected -HBV exposure and clearance per prior lab work -COPD Plan: - Abd+Pelvis CT with PO contrast w/o SBO on 07/26, but with rapid reaccumulation of ascites despite recent para with 3.5 L removed - Check Abd Doppler to eval for PVT as cause of refractory ascites - Start Furosemide 40 mg PO QD - Cont Spironolactone 100 mg PO QD - Need to get more fluid removed from abd prior to and Colonoscopy - Likely will need to increased diuretics over next few days - May try to arrange for paracentesis on 07/28 - Monitor BMP, Daily weights and I&O - Low Na diet - Cont with Ctx 1 g x 7 days for ppx Pt discussed with Dr. Oropeza; please see attestation for further recs/changes. Charlie Marie, PGY-4 <Deyanira Oropeza V - Last Filed: 07/27/18 18:39> Objective - Vital Signs/Intake and Output Vital Signs (last 24 hours): Temp Pulse Resp BP Pulse Ox 97.7 F 84 20 138/67 99 07/27/18 14:00 07/27/18 14:00 07/27/18 14:00 07/27/18 14:00 07/27/18 14:00 - Medications Medications: Current Medications Alprazolam (Xanax) 0.125 mg PO DAILY [facility]; Protocol Stop: 08/03/18 13:16 Last Admin: 07/27/18 13:29 Dose: 0.125 mg Arformoterol Tartrate (Brovana) 15 mcg IH [id number] [facility] Last Admin: 07/27/18 07:49 Dose: 15 mcg Budesonide (Pulmicort Respules) 0.25 mg IH [id number] JUANITA Last Admin: 07/27/18 07:49 Dose: 0.25 mg Furosemide (Lasix) 40 mg PO DAILY [facility] Last Admin: 07/27/18 13:29 Dose: 40 mg Ipratropium [place] (Atrovent) 0.5 mg IH [id number] PRN PRN Reason: Shortness of Breath Last Admin: 07/27/18 07:49 Dose: 0.5 mg Levalbuterol HCl (Xopenex) 0.63 mg IH [id number] [facility] Last Admin: 07/27/18 13:22 Dose: 0.63 mg Methylprednisolone (Solu-Medrol) 20 mg IVP Q12H [facility] Last Admin: 07/27/18 16:45 Dose: Not Given Multi-Ingredient Ointment (Hydrophor Oint) 0 gm TOP Q6H [facility] Last Admin: 07/27/18 16:37 Dose: Not Given Nicotine (Nicoderm Cq) 1 patch TD DAILY [facility] Last Admin: 07/27/18 10:51 Dose: Not Given Nystatin (Nystatin Oral Susp) 5 ml PO QID [facility] Stop: 08/01/18 18:01 Last Admin: 07/27/18 17:37 Dose: Not Given Pantoprazole Sodium (Protonix Ec Tab) 40 mg PO 0600 [facility] Last Admin: 07/27/18 07:37 Dose: Not Given Spironolactone (Aldactone) 100 mg PO DAILY [facility] Last Admin: 07/27/18 09:51 Dose: 100 mg - Labs Labs: 07/27/18 11:55 07/27/18 11:55 PT 14.8 SECONDS (9.4-12.5) H 07/23/18 17:34 INR 1.29 07/23/18 17:34 APTT 34.4 Seconds (25.1-36.5) 07/23/18 17:34 Attending/Attestation - Attestation I have personally seen and examined this patient.: Yes I have fully participated in the care of the patient.: Yes I have reviewed all pertinent clinical information, including history, physical exam and plan: Yes Notes (Text): This is an addendum to GI followup report dictated by the GI Fellow. The patient was seen and evaluated earlier. Medical records, lab studies, imagings were reviewed. Last 24 hours events reviewed. Agreed with the above treatment plan as outlined in GI Fellow's notes with the addition of the following CT scan was reviewed. Results showed large volume ascites. Patient did have paracentesis before on 07/24, and 3.5L of fluid was removed. Presently has tense ascites again. Would hold off colonoscopy until patient gets repeat paracentesis. Patient was admitted with hemoglobin of 5.1. History of polyps. Would definitely benefit from colonoscopy. However, in the setting of this large tense ascites it is relatively contraindicated. Will request IR for large volume paracentesis tomorrow. 07/27/18 18:36
--- NOTE | 2018-07-27 21:53 | PN ---
DATE: 07/27/2018 PULMONARY PROGRESS NOTE REFERRING PHYSICIAN: Evie Ponce MD SUBJECTIVE: The patient is out of bed to commode. Night was unremarkable. Slept pretty good. No headache, no rhinitis. Shortness of breath is better. No chest pain. Has increased abdominal girth. No leg pain. Does have a bowel movement. OBJECTIVE: GENERAL: In no acute distress. VITAL SIGNS: Temperature is 98, heart rate 84, respiratory rate is 20, blood pressure 138/67, pulse ox 99% on 2 liters nasal cannula. HEENT: Moist mucous membrane. No ulcer or thrush noted. NECK: Supple. No JVD. LUNGS: Scattered rhonchi. HEART: S1 and S2. ABDOMEN: Has ascites, distended, nontender. EXTREMITIES: No edema. NEUROLOGIC: Awake and alert, follows simple command. He is very hard of hearing. MEDICATIONS: He is on Aldactone 100 mg daily, Atrovent inhaled every 6 hours p.r.n., Brovana inhaled twice a day, Lasix 40 mg daily, Nicoderm patch daily, nystatin oral suspension 5 mL q.i.d., Protonix 40 mg daily, Pulmicort inhaled twice a day, Solu-Medrol 40 mg every 12 hours, Xanax 0.125 mg daily, Xopenex inhaled every 6 hours. LABORATORY DATA: Shows hemoglobin 8, hematocrit 27.3, WBC 10.7, platelet is 133. Sodium 140, potassium 4, chloride 112, bicarbonate is 24, BUN 20, creatinine 0.7, glucose 114. Calcium is 7.1. Total bili 0.4, AST 29, ALT , alk phos is 92. Albumin 2.5. Microbiology: Blood culture and urine culture, there is no growth. CT of the abdomen was done which shows cirrhotic liver, ascites. IMPRESSION AND PLAN: Chronic obstructive lung disease, cirrhotic liver, ascites, anemia, history of hepatitis B, esophageal varices, anemia. Case discussed with the nursing staff. We will decrease Solu-Medrol. Continue inhaled bronchodilator. Schedule for colonoscopy tomorrow. Fall precaution. Thank you, and we will follow with you. Theodore Atkins MD
--- NOTE | 2018-07-28 00:23 | PN ---
DATE: 07/27/2018 SUBJECTIVE: The patient was seen and examined on the bedside on 07/27/2018. The patient is lying down. According to him, he is doing better, but still has persistent abdominal distension, sometime getting shortness of breath, believe me nurses about his abdominal distension. No fever. No chills. No hematuria or hematochezia. No headache or dizziness. No chest pain. No palpitation. PHYSICAL EXAMINATION: VITAL SIGNS: Temperature 98, pulse 50, respiratory rate 18, blood pressure 130/67, pulse oximetry 100%. HEENT: Head normocephalic and atraumatic. Eyes PERRLA. Extraocular muscles intact. Conjunctivae clear. Nose patent. NECK: Supple. No carotid bruit. No JVD or thyromegaly. CHEST: Bilaterally symmetrical. HEART: S1 and S2 positive. LUNGS: Clear to auscultation. ABDOMEN: Tense and big. EXTREMITIES: No edema. No cyanosis. NEUROLOGIC: The patient is awake and alert. Follows simple commands. MEDICATIONS: Xanax, Brovana, Pulmicort, Lasix, Atrovent, Xopenex, Solu-Medrol, Nicoderm patch, nystatin oral suspension, Protonix, Aldactone. LABORATORY DATA: White blood cell 10.7, hemoglobin 8.0, hematocrit 27.3, platelets 133. Sodium 140, potassium 4.0, BUN 20, creatinine 0.7, glucose 114. ASSESSMENT AND PLAN: Mr. Esteban Carrion 72-year-old male with anemia, hyperchloremia, hyperglycemia, ascites, history of bleeding esophageal varices, history of hepatitis B virus and hepatitis C , ethanol abuse, chronic obstructive pulmonary disease, history of tobacco abuse, alcohol abuse, blindness in both eyes, decrease hearing acuity, came with abdominal distension, decompensated ethanol cirrhosis, paracentesis was done by Dr. Juan Miguel Scott but again water accumulated, anemia, rule out gastrointestinal bleeding. Discussion done with Dr. Oropeza, he is planning to do endoscopy but he want to discuss first with cosmetic consultant. Check abdominal ultrasound to evaluate schrosis and ascites, getting Lasix, Aldactone. Actually before colonoscopy, he want fluid to be taken out more. He will put re-consult with Dr. Juan Miguel Scott for paracentesis, low sodium diet. Continue current treatment. Discussion done with Dr. Oropeza, patient's nurses and staff. The patient was very anxious. psyche consult called We will follow. Evie Ponce MD JULIET
[2018-07-28] MEDS: Levalbuterol 0.63 MG/3 ML Inhal Soln UD IH SCH ×4 (01:52→21:30)
[2018-07-28] MEDS: Petrolatum-Mineral Oil Oint (100gm) TOP SCH ×4 (04:15→23:13)
[2018-07-28] MEDS: MethylPREDNISolone 40 mg Vial IVP SCH ×2 (04:56→19:19)
[2018-07-28] MEDS: Pantoprazole 40 mg EC Tab PO SCH (05:55)
[2018-07-28 07:17] LABS: BASO # 0.01 K/mm3 (0.0-2.0); BASO % 0.1 % (0.0-3.0); EOS # 0.4 (0.0-0.7); EOS % 4.2 % (1.5-5.0); GRAN # 6.78 (1.4-6.5); GRAN % 64.2 % (50.0-68.0); HEMOGLOBIN 8.1 g/dL (14.0-18.0); LYMPH # 2.3 (1.2-3.4); LYMPH % 21.6 % (22.0-35.0); MEAN CELL VOLUME 75.3 fl (80.0-105.0); MEAN CORPUSCULAR HEMOGLOBIN 21.8 pg (25.0-35.0); MEAN CORPUSCULAR HGB CONC 28.9 g/dl (31.0-37.0); MONO % 9.9 % (1.0-6.0); PLATELET COUNT 149 10^3/uL (120.0-450.0); RBC 3.72 10^6/uL (3.5-6.1); RED CELL DISTRIBUTION WIDTH 26.1 % (11.5-14.5); WHITE BLOOD COUNT 10.6 10^3/uL (4.5-11.0)
[2018-07-28 07:39] LABS: ALB/GLOB RATIO 0.8 (1.1-1.8); ALBUMIN 2.6 g/dL (3.0-4.8); ALT/SGPT 29 U/L (7-56); AST/SGOT 29 U/L (17-59); BLOOD UREA NITROGEN 21 mg/dL (7-21); CALCIUM 7.3 mg/dL (8.4-10.5); GFR NON-AFRICAN AMERICAN > 60
[2018-07-28] MEDS: Arformoterol 15 mcg/2 ml Inh Sol IH SCH ×2 (07:53→21:30)
[2018-07-28] MEDS: Budesonide 0.25 mg/2 ml Inhal Susp UD IH SCH ×2 (07:53→21:30)
[2018-07-28] MEDS ORDERED: Potassium Chloride 20 mEq ER Tab PO ONE (08:10)
[2018-07-28] MEDS: Nystatin 100,000 Units/ml Oral Susp 5 ml UD PO SCH ×4 (09:56→21:25)
--- NOTE | 2018-07-28 12:25 | CP.PCM.PN ---
Subjective - Date & Time of Evaluation Date of Evaluation: 07/28/18 Time of Evaluation: 11:45 - Subjective Subjective: PGY-4 GI Fellow Prog Note Pt sitting up in bed when seen this AM. Reports frustration at being NPO for paracentesis. Otherwise denied complaints. 5 point ROS negative other than states above Objective - Vital Signs/Intake and Output Vital Signs (last 24 hours): Temp Pulse Resp BP Pulse Ox 98.1 F 81 20 135/74 99 07/28/18 06:00 07/28/18 06:00 07/28/18 06:00 07/28/18 09:55 07/28/18 06:00 - Medications Medications: Current Medications Alprazolam (Xanax) 0.125 mg PO DAILY [facility]; Protocol Stop: 08/03/18 13:16 Last Admin: 07/28/18 09:56 Dose: Not Given Arformoterol Tartrate (Brovana) 15 mcg IH [id number] [facility] Last Admin: 07/28/18 07:53 Dose: 15 mcg Budesonide (Pulmicort Respules) 0.25 mg IH [id number] [facility] Last Admin: 07/28/18 07:53 Dose: 0.25 mg Furosemide (Lasix) 40 mg PO DAILY [facility] Last Admin: 07/28/18 09:55 Dose: Not Given Ipratropium [place] (Atrovent) 0.5 mg IH [id number] PRN PRN Reason: Shortness of Breath Last Admin: 07/27/18 07:49 Dose: 0.5 mg Levalbuterol HCl (Xopenex) 0.63 mg IH [id number] [facility] Last Admin: 07/28/18 07:53 Dose: 0.63 mg Methylprednisolone (Solu-Medrol) 20 mg IVP Q12H [facility] Last Admin: 07/28/18 04:56 Dose: Not Given Multi-Ingredient Ointment (Hydrophor Oint) 0 gm TOP Q6H [facility] Last Admin: 07/28/18 09:55 Dose: Not Given Nicotine (Nicoderm Cq) 1 patch TD DAILY [facility] Last Admin: 07/28/18 09:56 Dose: Not Given Nystatin (Nystatin Oral Susp) 5 ml PO QID [facility] Stop: 08/01/18 18:01 Last Admin: 07/28/18 09:56 Dose: Not Given Pantoprazole Sodium (Protonix Ec Tab) 40 mg PO 0600 [facility] Last Admin: 07/28/18 05:55 Dose: Not Given Spironolactone (Aldactone) 100 mg PO DAILY [facility] Last Admin: 07/28/18 09:55 Dose: Not Given - Labs Labs: 07/28/18 06:45 07/28/18 06:45 PT 14.8 SECONDS (9.4-12.5) H 07/23/18 17:34 INR 1.29 07/23/18 17:34 APTT 34.4 Seconds (25.1-36.5) 07/23/18 17:34 - Constitutional Appears: Combative (at times though redirectable), Chronically Ill - Head Exam Head Exam: ATRAUMATIC, NORMAL INSPECTION - ENT Exam ENT Exam: Mucous Membranes Moist. absent: Mucous Membranes Dry - Respiratory Exam Respiratory Exam: NORMAL BREATHING PATTERN. absent: Accessory Muscle Use, Respiratory Distress - GI/Abdominal Exam GI & Abdominal Exam: Distended, Firm (mildly), Normal Bowel Sounds. absent: Bruit, Guarding, Rigid, Soft, Tenderness, Mass, Organomegaly, Pulsatile Mass, Rebound Assessment and Plan - Assessment and Plan (Free Text) Assessment: 72yo male with PMHx significant for decompensated EtOH cirrhosis c/b ascites and bleeding esophageal varices, h/o HBV and HCV exposure, EtOH abuse, COPD and tobacco abuse, blindness and decreased hearing acuity who presented to the ED for progressive distention of the abdomen -Decompensated EtOH cirrhosis -Ascites 2/2 above -Anemia R/O GI blood loss: No obv source seen on EGD 07/25 -Esophageal varices, h/o -EtOH abuse -HCV exposure (HCV Ab positive), unknown if chronically infected -HBV exposure and clearance per prior lab work -COPD Plan: - Paracentesis today - Abd+Pelvis CT with PO contrast w/o SBO on 07/26, but with rapid reaccumulation of ascites despite recent para with 3.5 L removed - Check Abd Doppler to eval for PVT as cause of refractory ascites - Cont Furosemide 40 mg PO QD and Spironolactone 100 mg PO QD - Need to get more fluid removed from abd prior to and Colonoscopy - Likely will need to increased diuretics over next few days - Monitor BMP, Daily weights and I&O - Low Na diet post-para - Cont with Ctx 1 g x 7 days for ppx - Counseled the patient on the importance of remaining inpatient or at least go to rehab in order to optimize diuretic regimen for ascites to decrease the chance of fluid building up again, with re-admission and monitoring for side effects. It is the patient's decision whether or not to stay. Pt discussed with Dr. Oropeza; please see attestation for further recs/changes. Charlie Marie, PGY-4
--- NOTE | 2018-07-28 12:27 | CP.PCM.APN ---
Subjective - Date & Time of Evaluation Date of Evaluation: 07/28/18 Time of Evaluation: 08:30 - Subjective Subjective: Pt seen and examined at bedside. C/O mild shortness of breath and abdominal discomfort. Pt stating he wants to go home. Objective - Vital Signs/Intake and Output Vital Signs (last 24 hours): Temp Pulse Resp BP Pulse Ox 98.1 F 81 20 135/74 99 07/28/18 06:00 07/28/18 06:00 07/28/18 06:00 07/28/18 09:55 07/28/18 06:00 - Medications Medications: Current Medications Alprazolam (Xanax) 0.125 mg PO DAILY [facility]; Protocol Stop: 08/03/18 13:16 Last Admin: 07/28/18 09:56 Dose: Not Given Arformoterol Tartrate (Brovana) 15 mcg IH [id number] [facility] Last Admin: 07/28/18 07:53 Dose: 15 mcg Budesonide (Pulmicort Respules) 0.25 mg IH [id number] [facility] Last Admin: 07/28/18 07:53 Dose: 0.25 mg Furosemide (Lasix) 40 mg PO DAILY [facility] Last Admin: 07/28/18 09:55 Dose: Not Given Ipratropium [place] (Atrovent) 0.5 mg IH [id number] PRN PRN Reason: Shortness of Breath Last Admin: 07/27/18 07:49 Dose: 0.5 mg Levalbuterol HCl (Xopenex) 0.63 mg IH [id number] [facility] Last Admin: 07/28/18 07:53 Dose: 0.63 mg Methylprednisolone (Solu-Medrol) 20 mg IVP Q12H [facility] Last Admin: 07/28/18 04:56 Dose: Not Given Multi-Ingredient Ointment (Hydrophor Oint) 0 gm TOP Q6H [facility] Last Admin: 07/28/18 09:55 Dose: Not Given Nicotine (Nicoderm Cq) 1 patch TD DAILY [facility] Last Admin: 07/28/18 09:56 Dose: Not Given Nystatin (Nystatin Oral Susp) 5 ml PO QID [facility] Stop: 08/01/18 18:01 Last Admin: 07/28/18 09:56 Dose: Not Given Pantoprazole Sodium (Protonix Ec Tab) 40 mg PO 0600 [facility] Last Admin: 07/28/18 05:55 Dose: Not Given Spironolactone (Aldactone) 100 mg PO DAILY [facility] Last Admin: 07/28/18 09:55 Dose: Not Given - Labs Labs: 07/28/18 06:45 07/28/18 06:45 PT 14.8 SECONDS (9.4-12.5) H 07/23/18 17:34 INR 1.29 07/23/18 17:34 APTT 34.4 Seconds (25.1-36.5) 07/23/18 17:34 - Constitutional Appears: No Acute Distress - Head Exam Head Exam: ATRAUMATIC - Eye Exam Eye Exam: Normal appearance - Neck Exam Neck Exam: Full ROM - Respiratory Exam Respiratory Exam: NORMAL BREATHING PATTERN - Cardiovascular Exam Cardiovascular Exam: REGULAR RHYTHM, +S1, +S2 - GI/Abdominal Exam GI & Abdominal Exam: Distended, Firm - Rectal Exam Rectal Exam: Deferred - Neurological Exam Neurological Exam: Alert, Awake Assessment and Plan - Assessment and Plan (Free Text) Assessment: Pt is a 72 y.o. male who is admitted for ascites and anemia r/o GI Bleed. Pt will have paracentesis done today. Per GI, probably best for pt to go to [facility] after paracentesis for continued rehab and to monitor electrolytes. In addition, can do colonoscopy as an outpatient if patient wants to go home. 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 Spoke with pt, he is refusing to go to rehab and would like to go home today. Counseled that he needs to follow-up with PMD and GI and needs to take his medications as prescribed. Pt is in agreement. Plan: S/P Paracentesis Colonoscopy as outpatient GI on consult Meds per OCT SW/CM for DC planning D/W PMD - pt is cleared for discharge post paracentesis Pt will need to follow-up w/ GI for outpatient colonoscopy Will continue to follow
--- NOTE | 2018-07-28 12:37 | PCM.SURG1 ---
Surgeon's Initial Post Op Note - Surgeon's Notes Surgeon: Mikhail Ho MD Preschool Assistant Teacher: NONE Type of Anesthesia: Local Pre-Operative Diagnosis: Ascites Operative Findings: US showed moderate ascites Post-Operative Diagnosis: Ascites Operation Performed: US guided paracentesis Specimen/Specimens Removed: 2.5 liters of clear fluid Estimated Blood Loss: EBL {In ML}: 0 Blood Products Given: N/A Drains Used: No Drains Post-Op Condition: Fair Date of Surgery/Procedure: 07/28/18 Time of Surgery/Procedure: 12:30
--- NOTE | 2018-07-28 13:08 | PN ---
PULMONARY PROGRESS NOTE DATE: 07/28/2018 REFERRING PHYSICIAN: Evie Ponce MD SUBJECTIVE: The patient is sitting up in arm chair. No acute distress. No overnight events reported. Scheduled for colonoscopy today. Reports shortness of breath is better. Has increased abdominal girth. No headache, rhinitis, cough, chest pain, nausea, vomiting, leg pain or leg swelling reported. OBJECTIVE: GENERAL: No acute distress. VITAL SIGNS: Blood pressure 139/76, pulse 81, temperature 98.1 and oxygen saturation 99% on room air. HEENT: Moist mucous membranes. NECK: Supple. No JVD. LUNGS: Scattered rhonchi bilaterally. CARDIOVASCULAR: S1 and S2, audible. ABDOMEN: Positive ascites, distended and nontender. EXTREMITIES: No bilateral lower extremity edema. NEUROLOGIC: Awake, alert and verbal. Follows commands. Hard of hearing. MEDICATIONS: Reviewed. Xanax 0.125 mg daily, Brovana 15 mcg every 12 hours, Pulmicort 3.25 mg every 12 hours, Lasix 40 mg daily, Atrovent 0.5 mg inhalation every 6 hours p.r.n, Xopenex 0.63 mg inhalation every 6 hours, Solu-Medrol 20 mg IV push every 12 hours, Hydrophor ointment topically every 6 hours to affected area, nicotine patch daily, nystatin 5 mL four times a day, Protonix 40 mg daily and spironolactone 100 mg daily. LABORATORY DATA: Reviewed. WBC 10.6, RBC , hemoglobin 8.1, hematocrit 20 and platelets 149. Sodium 141, potassium 3.3, chloride 110, carbon dioxide 25, anion gap 9, BUN 21, creatinine 0.8, GFR is greater than 60, random glucose 122, calcium 7.3, total bilirubin 0.4, AST 29, ALT 29, alkaline phosphatase 99, total protein 5.9, albumin 2.6, globulin 3.3 and albumin-globulin ratio 0.8. IMPRESSION AND PLAN: Chronic obstructive lung disease, cirrhotic liver, ascites, anemia, history of hepatitis B and esophageal varices. Pulmonary point of view, the patient is doing well. Continue with gastrointestinal workup due to decreasing hemoglobin. Continue steroids and inhaled bronchodilator, gastric prophylaxis and deep venous thrombosis prophylaxis. The patient is scheduled for colonoscopy today. Fall precautions. The patient is given potassium chloride 40 mEq 1 dose this morning for hypokalemia. Labs to be repeated in morning. This patient was seen and examined with Dr. Atkins. Discussed assessment and plan as described above. Thank you for this consult. We will follow with you. Garry Gutierrez APN Theodore Atkins MD
[2018-07-28 13:47] LABS: BODY FLUID TYPE PERITONEAL
[2018-07-28 14:01] LABS: BF GROSS APPEARANCE CLEAR (CLEAR); BODY FLUID TOTAL COUNT 100 (0-0)
--- NOTE | 2018-07-28 14:15 | US ---
Date of Procedure: 07/28/2018 PROCEDURE: Ultrasound-guided paracentesis, CPT 19693 Medications: 7 cc 1% Lidocaine HISTORY: Ascites, abdominal pain, cirrhosis TECHNIQUE: Following informed consent , the patient was placed supine on the stretcher and the site was marked. A limited abdominal ultrasound was performed that showed a small amount of intra-abdominal fluid. Procedural time out was called and the Pt's abdomen was marked and prepped and draped in the usual sterile fashion. Ultrasound-guided large volume paracentesis performed. A total of 2.5 liters of straw colored fluid was removed without complication. IMPRESSION: Ultrasound-guided paracentesis.
--- NOTE | 2018-07-28 15:17 | PCM.FALL ---
Post Fall Progress Note - Post Fall Fall Date: 07/28/18 Fall Time: 15:06 Description of Fall: 72 year old male with PMH legally blind and deaf, liver cirrhosis, GI blood, and esophageal varices, COPD, chronic anemia, alcohol abuse, HTN, HLD, had an unwitnessed fall while getting out of bed. Patient is legally blind, and tried to get out of bed to go to the bathroom, tripped and landed on his left side of the body. Patient was found lying on his left side, + hit his head. Patient states that his "entire body" hurts. Denies dizziness, shortness of breath, jerking movements of his extremities, nausea, vomiting, fevers, headache. Patient did had have a bowel movement and had to use urinal for urinating post fall. Patient AAOx3, joking, + mild TTP on left forehead, left shoulder, left hip. A rigid c-collar was placed on the patient, and patient put on a hard boa rd, taken for Head CT, cervical, thoracic/lumbar CAT scans, b/l hip x rays. b/l shoulder x rays. - Post Fall Exam Vital Sign: Temp Pulse Resp BP Pulse Ox 98.1 F 81 20 135/74 99 07/28/18 06:00 07/28/18 06:00 07/28/18 06:00 07/28/18 09:55 07/28/18 06:00 Skull Exam: Negative for: Scalp wound, Scalp hematoma, Scalp depression, Ridge in skull Eye Exam: Positive for: Pupils equal Ear Exam: Negative for: Discharge, Bleeding Nose Exam: Negative for: Discharge, Bleeding Skin Exam: Negative for: Colour, Lacerations, Grazes Mouth Exam: Negative for: Tongue bitten, Teeth dislodge Neck Exam: Positive for: Tenderness. Negative for: Tingling, Weakness Spinal Exam: Positive for: Tenderness. Negative for: Tingling, Weakness Chest Exam: Negative for: Difficulty breathing, Tenderness in collar bones, Tenderness in ribs Abdomen Exam: Negative for: Tenderness Pelvic Exam: Negative for: Tenderness, Hematuria Arm Exam: Negative for: Deformity, Alteration in range of movement Leg Exam: Negative for: Deformity, Alteration in range of movement Impression/Plan: 72 year old legally blind male with PMH liver cirrhosis, GI blood, and esophageal varices, COPD, chronic anemia, alcohol abuse, HTN, HLD, s/p mechanical fall: - rigid neck collar, rigid board - Head CT, cervical/thoracic/lumbar CT, bilateral shoulder and hip x rays - High risk fall precautions - 1:1 sitter - Discussed with PMD Dr Ponce. Genia Jimenez, PGY2
--- NOTE | 2018-07-28 15:36 | CT ---
Date of service: 07/28/2018 PROCEDURE: CT HEAD WITHOUT CONTRAST. HISTORY: s/p fall COMPARISON: None available. TECHNIQUE: Axial computed tomography images were obtained through the head/brain without intravenous contrast. Radiation dose: Total exam DLP = 909.73 mGy-cm. This CT exam was performed using one or more of the following dose reduction techniques: Automated exposure control, adjustment of the mA and/or kV according to patient size, and/or use of iterative reconstruction technique. FINDINGS: HEMORRHAGE: No intracranial hemorrhage. BRAIN: No mass effect or edema. No atrophy or chronic microvascular ischemic changes. VENTRICLES: Unremarkable. No hydrocephalus. CALVARIUM: Unremarkable. PARANASAL SINUSES: Unremarkable as visualized. No significant inflammatory changes. MASTOID AIR CELLS: Unremarkable as visualized. No inflammatory changes. OTHER FINDINGS: None. IMPRESSION: Normal CT of the Head.
--- NOTE | 2018-07-28 15:37 | CT ---
Date of service: 07/28/2018 PROCEDURE: CT Cervical Spine without contrast HISTORY: s/p fall COMPARISON: None available. TECHNIQUE: Axial computed tomography images were obtained of the cervical spine without the use of intravenous contrast. Coronal and sagittal reformatted images were created and reviewed. Radiation dose: Total exam DLP = 336.61 mGy-cm. This CT exam was performed using one or more of the following dose reduction techniques: Automated exposure control, adjustment of the mA and/or kV according to patient size, and/or use of iterative reconstruction technique. FINDINGS: VERTEBRAE: No fracture. Normal alignment. No destructive bony lesion. DISCS/SPINAL CANAL/NEURAL FORAMINA: Multilevel severe degenerative disc disease and spondylosis. Delete PARASPINAL SOFT TISSUES: Extensive bilateral neck vascular calcifications. OTHER FINDINGS: None. IMPRESSION: No acute fracture. Extensive vascular calcifications.
--- NOTE | 2018-07-28 15:44 | CT ---
Date of service: 07/28/2018 PROCEDURE: CT Thoracic Spine without contrast HISTORY: s/p fall COMPARISON: None available. TECHNIQUE: Axial computed tomography images were obtained of the thoracic spine without intravenous contrast. Coronal and sagittal reformatted images were created and reviewed. Radiation dose: Total exam DLP = 562.62 mGy-cm. This CT exam was performed using one or more of the following dose reduction techniques: Automated exposure control, adjustment of the mA and/or kV according to patient size, and/or use of iterative reconstruction technique. FINDINGS: VERTEBRAE: Unremarkable. No fracture. Normal alignment. DISCS/SPINAL CANAL/NEURAL FORAMINA: Within the limits of the CT technique, no disc herniation seen. No central canal or neural foraminal stenosis.. PARASPINAL SOFT TISSUES: Unremarkable. OTHER FINDINGS: Bilateral small pleural effusions, right greater than left.. IMPRESSION: No fracture. Bilateral small pleural effusions.
--- NOTE | 2018-07-28 15:55 | CT ---
Date of service: 07/28/2018 PROCEDURE: CT Lumbar Spine without contrast HISTORY: s/p fall COMPARISON: None available. TECHNIQUE: Axial computed tomography images were obtained of the lumbar spine without the use of intravenous contrast. Coronal and sagittal reformatted images were created and reviewed. Radiation dose: Total exam DLP = 846.22 mGy-cm. This CT exam was performed using one or more of the following dose reduction techniques: Automated exposure control, adjustment of the mA and/or kV according to patient size, and/or use of iterative reconstruction technique. FINDINGS: VERTEBRAE: Unremarkable. No fracture. Normal alignment. DISCS/SPINAL CANAL/NEURAL FORAMINA: Multilevel mild disc space narrowing with disc bulge at L4-5 and left foraminal stenosis. PARASPINAL SOFT TISSUES: Unremarkable. OTHER FINDINGS: Free fluid in the pelvis, atypical for a male patient; correlate clinically. IMPRESSION: Free fluid in the pelvis, atypical for a male patient; correlate clinically. Free fluid in the pelvis, atypical for a male patient; correlate clinically.
--- NOTE | 2018-07-28 15:56 | RAD ---
Date of service: 07/28/2018 PROCEDURE: Radiographs of the Left Shoulder HISTORY: s/p fall COMPARISON: No prior. FINDINGS: BONES: Normal. No fracture. JOINTS: Normal. Glenohumeral and acromioclavicular joints preserved. No osteoarthritis. SOFT TISSUES: Normal. OTHER FINDINGS: None. IMPRESSION: Normal radiographs of the left shoulder.
--- NOTE | 2018-07-28 15:56 | RAD ---
Date of service: 07/28/2018 HISTORY: s/p fall COMPARISON: None available. FINDINGS: BONES: Normal. No fracture. JOINTS: Normal. No osteoarthritis. SOFT TISSUE: Normal. OTHER FINDINGS: Status post ORIF of an old left femoral neck fracture.. IMPRESSION: No acute fracture.
--- NOTE | 2018-07-28 15:57 | RAD ---
Date of service: 07/28/2018 PROCEDURE: Radiographs of the Right Shoulder HISTORY: s/p fall COMPARISON: No prior. FINDINGS: BONES: Normal. No fracture. JOINTS: Normal. Glenohumeral and acromioclavicular joints preserved. No osteoarthritis. SOFT TISSUES: Normal. OTHER FINDINGS: None. IMPRESSION: Normal radiographs of the right shoulder.
--- NOTE | 2018-07-28 21:45 | PN ---
DATE: 07/28/2018 SUBJECTIVE: The patient was seen and examined at the bedside. Very anxious, want to go home. Today, he has history of fall when he tried to go to the bathroom. Even before that, the patient was very anxious, psychiatrist consult called. Went for paracentesis, Dr. Mikhail Ho did paracentesis, and there was a rapid response. The patient was seen by the team. Ordered surgical CT, head CT, hip and pelvis x-rays, lumbar spine CT, thoracic CT, shoulder x-rays. PHYSICAL EXAMINATION: GENERAL: Temperature 98.1, pulse 51, blood pressure 135/74, respiratory rate 20. HEENT: Head: Normocephalic and atraumatic. Eyes: PERRLA. Extraocular movements are intact. Conjunctivae clear. Nose patent. Mucous membranes are moist. NECK: Supple. No carotid bruit, JVD, or thyromegaly. CHEST: Bilaterally symmetrical. HEART: S1, S2 positive. LUNGS: Clear to auscultation. ABDOMEN: Soft. Bowel sounds present. No organomegaly. EXTREMITIES: No edema. No cyanosis. NEUROLOGIC: The patient is awake and alert. Moving all 4 extremities. No focal deficits. LABORATORY DATA: White blood cells 10.6, hemoglobin 8.1, hematocrit 28, platelets 149. Sodium 140, potassium 3.3, BUN 21, creatinine 0.8, glucose 122. ASSESSMENT AND PLAN: Mr. Esteban Carrion is a 72-year-old male with anemia, came with hemoglobin of 5.1, after blood transfusion was 8.1; hypokalemia, replaced; hyperchloremia; hypocalcemia; iron deficiency; abnormal liver function tests; went for paracentesis twice, big ascites; history of noncompliance; gastrointestinal bleeding; went for upper endoscopy. Plan, send the patient to [facility], give physical therapy, the patient refused. If the plan is to do colonoscopy after paracentesis, Dr. Oropeza is on the case. Nurse practitioner, Cherelle Kincaid, spoke to the brother, Mookie. Length of time discussion done with him that to go to [facility] or to go home, and Mookie was informed by Cherelle that family has to bring the patient for appointment with Dr. Oropeza, he needs colonoscopy as outpatient and to Dr. Ponce, he agrees. The patient has history of fall today, rapid response was done. Cervical spine shows no acute fracture, extensive vascular calcification. CAT scan of the head reviewed by me. Normal CAT scan of the head. X-ray of the hip and pelvis done. Status post open reduction and internal fixation of old left femoral neck fracture. No acute fracture at this time. Lumbar spine CT reviewed. Free fluid in the pelvis, atypical for male patient. Correlate clinically free fluid in the pelvis, atypical for male patient. Thoracic spine, no fracture, bilateral small pleural effusion. Shoulder x-rays, normal radiograph of the left shoulder, normal radiograph of the right shoulder. We will do cardiology consult for free fluid in the pelvis. Discussion with the nurse practitioner, Cherelle Kincaid and rapid response team will follow. Evie Ponce MD JULIET
[2018-07-29] MEDS: Pantoprazole 40 mg EC Tab PO SCH (05:37)
[2018-07-29] MEDS: MethylPREDNISolone 40 mg Vial IVP SCH ×2 (05:37→14:31)
[2018-07-29] MEDS: Arformoterol 15 mcg/2 ml Inh Sol IH SCH ×2 (07:27→20:59)
[2018-07-29] MEDS: Budesonide 0.25 mg/2 ml Inhal Susp UD IH SCH ×2 (07:27→21:00)
[2018-07-29] MEDS: Levalbuterol 0.63 MG/3 ML Inhal Soln UD IH SCH ×3 (07:28→21:00)
[2018-07-29] MEDS: Petrolatum-Mineral Oil Oint (100gm) TOP SCH ×4 (08:00→21:29)
[2018-07-29] MEDS: Nystatin 100,000 Units/ml Oral Susp 5 ml UD PO SCH ×4 (10:00→21:25)
--- NOTE | 2018-07-29 19:31 | PN ---
DATE: 07/29/2018 PULMONARY PROGRESS NOTE REFERRING PHYSICIAN: Evie Ponce MD SUBJECTIVE: The patient is sitting side of the bed under one to one supervision yesterday event noted, apparently had a fall, and most of the x-ray was unremarkable. Presently feels better. Decreased cough and shortness breath. No chest pain. No nausea, also status post paracentesis removal of 3.5 L of ascitic fluid. No leg swelling. OBJECTIVE: GENERAL: In no acute distress. VITAL SIGNS: Temperature is 98, heart rate is 91, respiratory rate is 18, blood pressure is 110/58, and pulse ox is 97% on 2 L nasal cannula. HEENT: Moist mucous membrane. No ulcer or thrush noted. NECK: Supple. No JVD. LUNGS: Has a fair airflow with few rhonchi. HEART: S1 and S2. ABDOMEN: Soft and nondistended. EXTREMITIES: There is no edema. NEUROLOGIC: Awake, alert and follows simple command. MEDICATIONS: He is on Aldactone 100 mg daily, Atrovent inhaled every 6 hours, Brovana inhaled twice a day, multivitamins daily, Lasix 40 mg daily, Nicoderm patch daily, nystatin 5 mL q.i.d., Protonix 40 mg daily, Pulmicort inhaled twice a day, Solu-Medrol 20 mg every 12 hours, Xanax 0.125 mg daily, and Xopenex inhaled every 6 hours. LABORATORY DATA: Reviewed and no new lab is available since yesterday. IMPRESSION AND PLAN: Chronic obstructive lung disease, cirrhotic liver, ascites, anemia, history of hepatitis B, esophageal varices, and status post paracentesis with a large volume removal. Pulmonary point of view, doing okay. Continue IV and inhaled bronchodilator. Keep head at 45 degrees. Fall precaution. Discharge planning with the family. Spoke to nursing staff. Requested to ambulate with help. Thank you and we will follow with you. Theodore Atkins MD
--- NOTE | 2018-07-29 20:21 | PN ---
DATE: 07/29/2018 SUBJECTIVE: The patient was seen and examined at the bedside on 07/25/2018, looking comfortable, having meal. Daughter was sitting on the bedside also. No fever. No chills. No hematuria, hematochezia. No swelling of the legs. No chest pain. No palpitations. No headache. No dizziness. PHYSICAL EXAMINATION: VITAL SIGNS: Temperature 98.6, pulse 91, blood pressure 110/58, respiratory rate 18. HEENT: Head is normocephalic, atraumatic. Eyes, PERRLA. Extraocular muscles are intact. Conjunctivae clear. Nose patent. NECK: Supple. No carotid bruits. No JVD or thyromegaly. CHEST: Bilateral symmetrical. HEART: S1, S2 positive. LUNGS: Clear to auscultation. ABDOMEN: Soft. Bowel sounds present. No organomegaly. EXTREMITIES: No edema. No cyanosis. NEUROLOGIC: The patient is awake, alert, moving all four extremities without focal deficits. MEDICATIONS: Aldactone, Atrovent, Brovana, Lasix, Nicoderm patch, oral suspension, Protonix, Pulmicort, Solu-Medrol, Xanax, Xopenex. LABORATORY DATA: We do not have additional lab today, but reviewed all labs. ASSESSMENT AND PLAN: Mr. Sheyla Orellana is a 72-year-old male with anemia, hypokalemia, hyperchloremia, hypocalcemia, iron deficiency, has cirrhosis of the liver, ascites tapped multiple times, bilaterally blind, chronic obstructive lung disease, history of hepatitis B, esophageal varices. Discussion done with Dr. Oropeza, the patient has anemia, need workup, getting tapering dose of steroids. Fall precautions. Family was around. The patient cannot take care of himself, cannot do ADL, offered, the patient refused. I spoke to the patient's daughter, but she cannot take care of him because she has also a home mission worker who is taking care of her. GI, DVT prophylaxis. Repeat labs. We will followup. Evie Ponce MD JULIET
[2018-07-29 22:43] VITALS: RESP 20
[2018-07-30] MEDS: Levalbuterol 0.63 MG/3 ML Inhal Soln UD IH SCH ×2 (01:04→07:49)
[2018-07-30] MEDS: MethylPREDNISolone 40 mg Vial IVP SCH (04:01)
[2018-07-30] MEDS: Petrolatum-Mineral Oil Oint (100gm) TOP SCH ×2 (04:07→11:20)
[2018-07-30] MEDS: Pantoprazole 40 mg EC Tab PO SCH (06:08)
[2018-07-30] MEDS: Budesonide 0.25 mg/2 ml Inhal Susp UD IH SCH (07:49)
[2018-07-30] MEDS: Arformoterol 15 mcg/2 ml Inh Sol IH SCH (07:49)
[2018-07-30 08:29] VITALS: TEMP 98.7
[2018-07-30] MEDS: Nystatin 100,000 Units/ml Oral Susp 5 ml UD PO SCH (11:06)
[2018-07-30 11:17] VITALS: BP 131/56
--- NOTE | 2018-07-30 13:15 | CP.PCM.PN ---
Subjective - Date & Time of Evaluation Date of Evaluation: 07/30/18 Time of Evaluation: 12:00 - Subjective Subjective: PGY6 GI Fellow Progress Note Patient seen and examined bedside this afternoon. The patient's daughter Lian (with whom the patient lives) is at bedside this morning. The patient's daughter is stating she is the person who will make decisions for her father but does not indicate that she has any paperwork stating such. Patient denies any complaints at this time and had no events overnight. 12 system ROS performed and negative except where stated Objective - Vital Signs/Intake and Output Vital Signs (last 24 hours): Temp Pulse Resp BP Pulse Ox 98.7 F 82 20 131/56 L 99 07/30/18 06:00 07/30/18 06:00 07/30/18 06:00 07/30/18 11:12 07/30/18 06:00 - Medications Medications: Current Medications Alprazolam (Xanax) 0.125 mg PO DAILY [facility]; Protocol Stop: 08/03/18 13:16 Last Admin: 07/30/18 11:06 Dose: 0.125 mg Arformoterol Tartrate (Brovana) 15 mcg [facility] [id number] [facility] Last Admin: 07/30/18 07:49 Dose: 15 mcg Budesonide (Pulmicort Respules) 0.25 mg [facility] [id number] [facility] Last Admin: 07/30/18 07:49 Dose: 0.25 mg Furosemide (Lasix) 40 mg PO DAILY [facility] Last Admin: 07/30/18 11:12 Dose: 40 mg Ipratropium [place] (Atrovent) 0.5 mg IH [id number] PRN PRN Reason: Shortness of Breath Last Admin: 07/27/18 07:49 Dose: 0.5 mg Levalbuterol HCl (Xopenex) 0.63 mg [facility] [id number] [facility] Last Admin: 07/30/18 07:49 Dose: 0.63 mg Methylprednisolone (Solu-Medrol) 20 mg IVP Q12H [facility] Last Admin: 07/30/18 04:01 Dose: 20 mg Multi-Ingredient Ointment (Hydrophor Oint) 0 gm TOP Q6H [facility] Last Admin: 07/30/18 11:20 Dose: Not Given Nicotine (Nicoderm Cq) 1 patch TD DAILY [facility] Last Admin: 07/30/18 11:11 Dose: 1 patch Nystatin (Nystatin Oral Susp) 5 ml PO QID [facility] Stop: 08/01/18 18:01 Last Admin: 07/30/18 11:06 Dose: 5 ml Pantoprazole Sodium (Protonix Ec Tab) 40 mg PO 0600 [facility] Last Admin: 07/30/18 06:08 Dose: 40 mg Spironolactone (Aldactone) 100 mg PO DAILY [facility] Last Admin: 07/30/18 11:08 Dose: 100 mg - Labs Labs: 07/28/18 06:45 07/28/18 06:45 PT 14.8 SECONDS (9.4-12.5) H 07/23/18 17:34 INR 1.29 07/23/18 17:34 APTT 34.4 Seconds (25.1-36.5) 07/23/18 17:34 - Constitutional Appears: Non-toxic, No Acute Distress - Eye Exam Additional comments: blind - ENT Exam ENT Exam: Mucous Membranes Moist Additional comments: decreased acuity - Respiratory Exam Respiratory Exam: Clear to Ausculation Bilateral. absent: Rales, Rhonchi, Wheezes - Cardiovascular Exam Cardiovascular Exam: RRR, +S1, +S2 - GI/Abdominal Exam GI & Abdominal Exam: Distended, Soft, Normal Bowel Sounds. absent: Firm, Guarding, Rigid, Tenderness, Organomegaly - Extremities Exam Extremities Exam: Normal Inspection. absent: Pedal Edema - Neurological Exam Neurological Exam: Alert, Awake, Oriented x3 - Psychiatric Exam Psychiatric exam: Normal Affect, Normal Mood - Skin Skin Exam: Dry, Warm Assessment and Plan - Assessment and Plan (Free Text) Assessment: 72yo male with PMHx significant for decompensated EtOH cirrhosis c/b ascites and bleeding esophageal varices, h/o HBV and HCV exposure, EtOH abuse, COPD and tobacco abuse, blindness and decreased hearing acuity who presented to the ED for progressive distention of the abdomen -Decompensated EtOH cirrhosis -Ascites 2/2 above -Anemia R/O GI blood loss -EtOH abuse -HCV exposure (HCV Ab positive), unknown if chronically infected -HBV exposure and clearance per prior lab work -COPD Plan: -Patient refusing inpatient colonoscopy as he does not wish to comply with preparation and diet restrictions despite extensive discussion as to importance for procedure given profound anemia on admission -Patient and patient's daughter request and agree to outpatient follow up and colonoscopy -Continue diuretic therapy for ascites - Lasix/Aldactone 40/100mg PO QD -Monitor BMP -2g Na diet -EtOH abstinence stressed
[2018-07-30 13:22] VITALS: PULSE 92; O2SAT 97
--- NOTE | 2018-07-30 14:22 | PN ---
DATE: 07/30/2018 PULMONARY PROGRESS NOTE REFERRING PHYSICIAN: Evie Ponce MD SUBJECTIVE: The patient is sitting up at bedside in no acute distress. No headache, rhinitis, cough, shortness of breath, chest pain, abdominal pain, nausea, vomiting, diarrhea, leg pain or leg swelling reported. PHYSICAL EXAMINATION GENERAL: In no acute distress. VITAL SIGNS: Blood pressure 134/64, pulse 82, temperature 98.7, and oxygen saturation 99% on nasal cannula. HEENT: Moist mucous membrane. NECK: Supple. No JVD. LUNGS: Few scattered rhonchi. CARDIOPULMONARY: S1, S2 audible. ABDOMEN: Soft. No distention. Positive bowel sounds. EXTREMITIES: No bilateral lower extremity edema. NEUROLOGIC: Awake, alert, verbal and follows commands. LABORATORY DATA: Reviewed. No new labs since yesterday. MEDICATIONS: Reviewed. Xanax 0.125 mg daily, Brovana 15 mcg every 12 hours, Pulmicort 0.25 mg every 12 hours, Lasix 40 mg daily, Atrovent 0.5 mg inhalation every 6 hours, Xopenex 0.63 mg inhalation every 6 hours, Solu- Medrol 20 mg every 12 hours, topically every 6 hours to affected area, nicotine patch one patch daily, nystatin 5 mL four times a day, Protonix 40 mg daily and spironolactone 100 mg daily. IMPRESSION AND PLAN: Chronic obstructive lung disease, cirrhotic liver, ascites, anemia, history of hepatitis B, esophageal varices, status post paracentesis, large volume removal. Pulmonary point view, the patient doing well. Continue inhaled bronchodilator, keep head of bed elevated at 45 degrees, fall precaution, gastric prophylaxis and deep vein thrombosis prophylaxis. This patient was seen and examined with Dr. Atkins. Discussed assessment and plan as described above. Thank you for this consult. We will follow with you. Garry Gutierrez APN Theodore Atkins MD [facility] # [id number] MTDD
== END 2018-07-30 14:00 | disposition home or self-care (01) | DRG 433 ==
LOC: ED 16:39 → ERH 20:13 → CCU 22:05 → 5RNO 07-25 19:03
PROVIDERS: ADMIT Internal Medicine; ATTEND Internal Medicine
PROC: 30233N1 Transfusion of Nonautologous Red Blood Cells into Peripheral Vein, Percutaneous Approach (ICD-10-PCS; 2018-07-23)
PROC: 0W9G3ZZ Drainage of Peritoneal Cavity, Percutaneous Approach (ICD-10-PCS; principal; 2018-07-24)
PROC: 3E0F7GC Introduction of Other Therapeutic Substance into Respiratory Tract, Via Natural or Artificial Opening (ICD-10-PCS; 2018-07-24)
PROC: 0DJ08ZZ Inspection of Upper Intestinal Tract, Via Natural or Artificial Opening Endoscopic (ICD-10-PCS; 2018-07-25)
PROC: 0W9G3ZZ Drainage of Peritoneal Cavity, Percutaneous Approach (ICD-10-PCS; 2018-07-28)
DX: K70.31 Alcoholic cirrhosis of liver with ascites (principal); J44.1 Chronic obstructive pulmonary disease with (acute) exacerbation; I85.00 Esophageal varices without bleeding; B37.81 Candidal esophagitis; K76.6 Portal hypertension; B19.10 Unspecified viral hepatitis B without hepatic coma; F32.9 Major depressive disorder, single episode, unspecified; F10.10 Alcohol abuse, uncomplicated; R73.9 Hyperglycemia, unspecified; E87.8 Other disorders of electrolyte and fluid balance, not elsewhere classified; E83.51 Hypocalcemia; D50.9 Iron deficiency anemia, unspecified; I10 Essential (primary) hypertension; E78.5 Hyperlipidemia, unspecified; E87.6 Hypokalemia; H91.92 Unspecified hearing loss, left ear; K44.9 Diaphragmatic hernia without obstruction or gangrene; K31.89 Other diseases of stomach and duodenum; H54.8 Legal blindness, as defined in USA; K21.9 Gastro-esophageal reflux disease without esophagitis; K29.80 Duodenitis without bleeding; Z20.5 Contact with and (suspected) exposure to viral hepatitis; F17.210 Nicotine dependence, cigarettes, uncomplicated; W19.XXXA Unspecified fall, initial encounter; Z86.73 Personal history of transient ischemic attack (TIA), and cerebral infarction without residual deficits; Z91.19 Patient's noncompliance with other medical treatment and regimen; Z91.14 Patient's other noncompliance with medication regimen

== ENCOUNTER 2018-10-12 00:34 | Inpatient (IN) | payer MEDICARE, MEDICAID ==
[2018-10-12] MEDS ORDERED: Morphine 4 mg/ml ISec IVP STA (01:21)
[2018-10-12] MEDS ORDERED: Morphine 4 mg/ml ISec ONE (01:26)
--- NOTE | 2018-10-12 01:43 | ED PDOC ---
Arrival/HPI - General Chief Complaint: Abdominal Pain Time Seen by Provider: 10/12/18 01:01 Historian: Patient - History of Present Illness Narrative History of Present Illness (Text): 10/12/18 01:42 Esteban Carrion is a 72 year old male with past medical history of liver cirrhosis, ascites, esophageal varices, alcohol abuse, COPD, CVA, deafness, GERD, GI bleed, depression, paracentesis, and hernia repair, who presents to the emergency department with abdominal pain. Patient states he began experiencing upper abdominal pain with associated vomiting and diarrhea after eating cherries and prunes today. Patient denies any fever, chills, chest pain, shortness of breath, nausea, urinary symptoms, back pain, neck pain, headache, dizziness, or any other complaints. Time/Duration: 4-6 hours Symptom Onset: Gradual Symptom Course: Unchanged Quality: Aching Activities at Onset: Eating Context: Home Past Medical History - Provider Review Nursing Documentation Reviewed: Yes - Infectious Disease Hx of Infectious Diseases: None - Tetanus Immunization Tetanus Immunization: Unknown - Past Medical History Past Medical History: No Previous - Cardiac Hx Cardiac Disorders: Yes (CAD) Hx Hypertension: Yes - Pulmonary Hx Chronic Obstructive Pulmonary Disease (COPD): Yes - Neurological HX Cerebrovascular Accident: Yes - HEENT Hx HEENT Disorder: Yes Hx Blind: Yes Hx Cataracts: Yes (both eyes) Hx Deafness: Yes (left ear) Hx Glaucoma: Yes (left eye) - Renal Hx Renal Disorder: No - Endocrine/Metabolic Hx Endocrine Disorders: No - Hematological/Oncological Hx Blood Disorders: No Hx Cirrhosis: Yes - Integumentary Hx Dermatological Disorder: No - Musculoskeletal/Rheumatological Hx Arthritis: Yes - Gastrointestinal Hx Gastrointestinal Disorders: Yes Other/Comment: GI Bleed; Esophageal varices - Genitourinary/Gynecological Hx Genitourinary Disorders: No - Psychiatric Hx Psychophysiologic Disorder: Yes Hx Depression: Yes Hx Psychosis: Yes Hx Substance Use: No - Past Surgical History Past Surgical History: No Previous - Surgical History Hx Orthopedic Surgery: Yes (l hip fx sx 10/20/16) Other/Comment: us guided paracenthesis 06/23/14. hernia repair 04/2018 - Anesthesia Hx Anesthesia: Yes Hx Anesthesia Reactions: No Hx Malignant Hyperthermia: No - Suicidal Assessment Feels Threatened In Home Enviroment: No Family/Social History - Physician Review Nursing Documentation Reviewed: Yes Family/Social History: Unknown Family HX Smoking Status: Light Smoker < 10 Cigarettes Daily Hx Alcohol Use: No (denies) Hx Substance Use: No Hx Substance Use Treatment: No Allergies/Home Meds Allergies/Adverse Reactions: Allergies No Known Allergies Allergy (Verified 10/12/18 00:49) Home Medications: Home Meds Medication Instructions Recorded Confirmed Dorzolamide 2%/Timolol 0.5% 1 drop BOTHEYES BID 01/15/18 10/12/18 [Cosopt 2%-0.5% Opht] Latanoprost [Xalatan] 1 drop BOTHEYES DAILY 01/15/18 10/12/18 Sertraline [Zoloft] 1 tab PO DAILY 01/15/18 10/12/18 Review of Systems - Physician Review All systems were reviewed & negative as marked: Yes - Review of Systems Constitutional: Normal ENT: Normal Respiratory: Normal. absent: SOB, Cough, Sputum, Wheezing Cardiovascular: Normal. absent: Chest Pain Gastrointestinal: Abdominal Pain, Diarrhea, Nausea, Vomiting Skin: Normal. absent: Rash Neurological: Normal. absent: Headache, Dizziness Physical Exam Vital Signs Reviewed: Yes Vital Signs Pulse Resp BP Pulse Ox 10/12/18 00:52 66 16 188/91 H 100 Blood Pressure: Hypertensive Pulse: Regular Respiratory Rate: Normal Appearance: Positive for: Non-Toxic, Comfortable Pain Distress: None Mental Status: Positive for: Alert and Oriented X 3 - Systems Exam Head: Present: Atraumatic, Normocephalic Conjunctiva: Present: Normal Mouth: Present: Moist Mucous Membranes Neck: Present: Normal Range of Motion. No: Meningeal Signs, MIDLINE TENDERNESS Respiratory/Chest: Present: Clear to Auscultation, Good Air Exchange. No: Respiratory Distress, Accessory Muscle Use, Wheezes, Decreased Breath Sounds Cardiovascular: Present: Regular Rate and Rhythm, Normal S1, S2. No: Murmurs Abdomen: Present: Tenderness (Mid to upper abdominal tenderness ), Normal Bowel Sounds. No: Distention, Peritoneal Signs Upper Extremity: Present: Normal Inspection. No: Cyanosis, Edema Lower Extremity: Present: Normal Inspection. No: Edema Neurological: Present: GCS=15, CN II-XII Intact, Speech Normal Skin: Present: Warm, Dry, Normal Color. No: Rashes Psychiatric: Present: Alert, Oriented x 3, Normal Insight, Normal Concentration Medical Decision Making ED Course and Treatment: 10/12/18 03:05 Impression: 72 year old male who presents to the emergency department with abdominal pain, vomiting, and diarrhea. Plan: -- CT Abdomen and Pelvis w/o contrast -- EKG -- Chest X-ray -- Morphine -- Zofran -- Reassess and disposition Prior Visits: Notes and results from previous visits were reviewed. Progress Notes: 10/12/18 04:22 CT Abdomen and Pelvis: LUNG BASES: The lung bases appear clear. No pleural effusions are seen. LIVER: Small, cirrhotic appearing liver. GALLBLADDER AND BILE DUCTS: Multiple small gallstones, no definite biliary dilatation identified. PANCREAS: Unremarkable. SPLEEN: Unremarkable. ADRENAL GLANDS: Unremarkable. KIDNEYS, URETERS, AND BLADDER: The kidneys appear within normal limits. There is no hydronephrosis or hydroureter. No urinary calculi are seen. STOMACH AND BOWEL: One focal edema of the small and large bowels from portal hypertension and ascites. APPENDIX: No evidence of acute appendicitis on CT examination. PERITONEUM: Massive ascites. LYMPH NODES: Multiple small lymph nodes extending from the splenic hilum to the kahlil hepatis. VASCULATURE: No evidence of abdominal aortic aneurysm. BONES: Left hip compression screw and intramedullary deandre. IMPRESSION: 1. Unchanged exam. 2. Massive ascites. 3. Small, cirrhotic appearing liver. 4. Multiple small gallstones, no definite biliary dilatation identified. 5. Multiple small lymph nodes extending from the splenic hilum to the kahlil hepatis. 6. Pelvic ascites. 7. Left hip compression screw and intramedullary deandre. Electronically signed on Oct 12, 2018 3:47:37 AM EDT by: Kumar Muhammad M.D., Certified by ABR, MSK, Neuroradiology 10/12/18 04:30 Reviewed EKG, NSR at 90 bpm. LAD. Inferior infarct. Non-specific ST/T wave changes. 10/12/18 04:[address] Ponce, who is aware and agrees with plan. Accepts pt in to her service. Pt will go to [facility] observation for abdominal pain and ascites. - Lab Interpretations I have reviewed the lab results: Yes - RAD Interpretation Radiology Orders: 10/12/18 01:19 ABD & PELVIS W/O PO OR IV CONT [CT] Stat CHEST PORTABLE [RAD] Stat Leadership Coach: Radiologist - Medication Orders Current Medication Orders: Discontinued Medications Morphine Sulfate (Morphine) 4 mg IVP STAT STA Stop: 10/12/18 01:22 Ondansetron HCl (Zofran Inj) 4 mg IVP ONCE ONE Stop: 10/12/18 01:22 - Scribe Statement The provider has reviewed the documentation as recorded by the Vincent Charles training under Lorie Mackay. All medical record entries made by the Vincent were at my direction and personally dictated by me. I have reviewed the chart and agree that the record accurately reflects my personal performance of the history, physical exam, medical decision making, and the department course for this patient. I have also personally directed, reviewed, and agree with the discharge instructions and disposition. Disposition/Present on Arrival - Present on Arrival Any Indicators Present on Arrival: No History of DVT/PE: No History of Uncontrolled Diabetes: No Urinary Catheter: No History of Decub. Ulcer: No History Surgical Site Infection Following: None - Disposition Have Diagnosis and Disposition been Completed?: Yes Diagnosis: Abdominal pain, Ascites, Cholelithiasis Disposition: HOSPITALIZED Disposition Time: 04:24 Patient Problems: Current Active Problems Problem Status Onset Abdominal pain Acute Ascites Acute Cholelithiasis Acute Condition: STABLE
[2018-10-12 01:54] LABS: HEMOGLOBIN 11.2 g/dL (14.0-18.0); MEAN CELL VOLUME 82.7 fl (80.0-105.0); MEAN CORPUSCULAR HEMOGLOBIN 26.6 pg (25.0-35.0); MEAN CORPUSCULAR HGB CONC 32.2 g/dl (31.0-37.0); PLATELET COUNT 156 10^3/uL (120.0-450.0); RBC 4.21 10^6/uL (3.5-6.1); RED CELL DISTRIBUTION WIDTH 19.7 % (11.5-14.5); WHITE BLOOD COUNT 12.1 10^3/uL (4.5-11.0)
[2018-10-12 03:00] LABS: INR 1.45; PROTHROMBIN TIME 16.1 SECONDS (9.4-12.5)
[2018-10-12 03:01] LABS: ALB/GLOB RATIO 0.8 (1.1-1.8); ALBUMIN 3.4 g/dL (3.0-4.8); ALT/SGPT 35 U/L (7-56); AST/SGOT 92 U/L (17-59); BLOOD UREA NITROGEN 16 mg/dL (7-21); CALCIUM 9.1 mg/dL (8.4-10.5); GFR NON-AFRICAN AMERICAN > 60; LIPASE 250 U/L (23-300)
[2018-10-12] MEDS ORDERED: metroNIDAZOLE IV 500 mg/100 ml 500 MG/100 ML BAG IV STA (04:25)
[2018-10-12] MEDS ORDERED: cefTRIAXone 1 gm 1 GM/100 ML BAG IV STA (04:26)
[2018-10-12] MEDS: Arformoterol 15 mcg/2 ml Inh Sol IH SCH (08:26)
--- NOTE | 2018-10-12 08:46 | RAD ---
Date of service: 10/12/2018 HISTORY: abdominal pain COMPARISON: Portable chest 07/23/2018. FINDINGS: LUNGS: No active pulmonary disease. PLEURA: No significant pleural effusion identified, no pneumothorax apparent. CARDIOVASCULAR: Calcific atherosclerotic changes are seen related to the thoracic aorta. Normal cardiac size. No pulmonary vascular congestion. OSSEOUS STRUCTURES: No significant abnormalities. VISUALIZED UPPER ABDOMEN: Normal. OTHER FINDINGS: None. IMPRESSION: No interval acute cardiopulmonary disease appreciated.
--- NOTE | 2018-10-12 11:11 | CP.PCM.CON ---
<Charlie Marie - Last Filed: 10/12/18 12:59> History of Present Illness - History of Present Illness History of Present Illness: PGY-4 GI Fellow Consult Note Pt is a 72yo male with PMHx significant for decompensated EtOH cirrhosis c/b ascites and bleeding esophageal varices, h/o HBV exposure, EtOH abuse, COPD and tobacco abuse, blindness and decreased hearing acuity who presented to the ED for abdominal pain. History Limited due to patient being a poor historian and significant auditory and visual disabilities. He states he was in his normal state of health until a few days ago when he ate cherries and began to have epigastric belly pain. He also reports frequent bowel movements. However, when asked about diarrhea he stated "I wish I had diarrhea." He is unsure about any signs of melena or hematochezia due to his blindness. He reports compliance with his medications and states he "does not eat a lot" when asked about following a low sodium diet. He denied any fevers, chills, dysphagia, nausea, vomiting. 12 system ROS performed and negative except where stated above PMHx: See above PSHx: Left hip, Hernia repair Meds: Reviewed in chart FamHx: Denied GI problems Social: Former tobacco and EtOH abuse per patient (40+ year use), denies illicit drug use allergies: No known drug allergies Endo: 04/21 - EGD - Grade 2 esophageal varices with recent hemorrhage s/p EVL 10/19 - Colonoscopy - AVMs, diverticulosis, polyps Past Patient History - Infectious Disease Hx of Infectious Diseases: None - Tetanus Immunizations Tetanus Immunization: Unknown - Past Social History Smoking Status: Light Smoker < 10 Cigarettes Daily - CARDIAC Hx Cardiac Disorders: Yes (CAD) Hx Hypertension: Yes - PULMONARY Hx Chronic Obstructive Pulmonary Disease (COPD): Yes - NEUROLOGICAL HX Cerebrovascular Accident: Yes - HEENT Hx HEENT Problems: Yes Hx Blind: Yes Hx Cataracts: Yes (both eyes) Hx Deafness: Yes (left ear) Hx Glaucoma: Yes (left eye) - RENAL Hx Chronic Kidney Disease: No - ENDOCRINE/METABOLIC Hx Endocrine Disorders: No - HEMATOLOGICAL/ONCOLOGICAL Hx Blood Disorders: No Hx Cirrhosis: Yes - INTEGUMENTARY Hx Dermatological Problems: No - MUSCULOSKELETAL/RHEUMATOLOGICAL Hx Arthritis: Yes - GASTROINTESTINAL Hx Gastrointestinal Disorders: Yes Other/Comment: GI Bleed; Esophageal varices - GENITOURINARY/GYNECOLOGICAL Hx Genitourinary Disorders: No - PSYCHIATRIC Hx Psychophysiologic Disorder: Yes Hx Depression: Yes Hx Psychosis: Yes Hx Substance Use: No - SURGICAL HISTORY Hx Orthopedic Surgery: Yes (l hip fx sx 10/20/16) Other/Comment: us guided paracenthesis 06/23/14. hernia repair 04/2018 - ANESTHESIA Hx Anesthesia: Yes Hx Anesthesia Reactions: No Hx Malignant Hyperthermia: No Meds Allergies/Adverse Reactions: Allergies Allergy/AdvReac Type Severity Reaction Status Date / Time No Known Allergies Allergy Verified 10/12/18 00:49 - Medications Medications: Current Medications Arformoterol Tartrate (Brovana) 15 mcg IH [id number] JUANITA Budesonide (Pulmicort Respules) 0.25 mg IH [id number] JUANITA Dorzolamide/Timolol (Cosopt 2%-0.5% Opht) 1 drop OD BID JUANITA Furosemide (Lasix) 40 mg PO DAILY JUANITA Latanoprost (Xalatan Opht) 0 ml OD DAILY JUANITA Non-Formulary Medication (Nystatin [Nystatin Oral Susp]) 5 ml PO QID JUANITA Pantoprazole Sodium (Protonix Ec Tab) 40 mg PO 0600 JUANITA Sertraline HCl (Zoloft) 25 mg PO DAILY JUANITA Spironolactone (Aldactone) 100 mg PO DAILY JUANITA Physical Exam - Constitutional Appears: No Acute Distress, Chronically Ill - Head Exam Head Exam: ATRAUMATIC, NORMAL INSPECTION - Eye Exam Eye Exam: absent: Scleral icterus Additional comments: does not track - ENT Exam ENT Exam: Mucous Membranes Moist. absent: Mucous Membranes Dry - Respiratory Exam Respiratory Exam: NORMAL BREATHING PATTERN. absent: Accessory Muscle Use Additional comments: barrel chest with decreased breath sounds - Cardiovascular Exam Cardiovascular Exam: REGULAR RHYTHM, RRR - GI/Abdominal Exam GI & Abdominal Exam: Distended, Normal Bowel Sounds, Soft. absent: Bruit, Diminished Bowel Sounds, Firm, Guarding, Pulsatile Mass, Rebound, Tenderness Additional comments: +flank fullness - Rectal Exam Rectal Exam: Deferred - Extremities Exam Extremities exam: Positive for: normal inspection. Negative for: pedal edema - Neurological Exam Neurological exam: Alert, CN II-XII Intact Additional comments: very hard of hearing and blind - Psychiatric Exam Psychiatric exam: Normal Affect, Normal Mood - Skin Skin Exam: Normal Color, Warm Results - Vital Signs Recent Vital Signs: Last Vital Signs Temp 98.7 F 10/12/18 08:02 Pulse 96 H 10/12/18 08:02 Resp 18 10/12/18 08:02 BP 112/66 10/12/18 08:02 Pulse Ox 96 10/12/18 08:02 - Labs Result Diagrams: 10/12/18 01:40 10/12/18 01:40 Labs: Laboratory Results - last 24 hr 10/12/18 10/12/18 10/12/18 01:40 01:40 01:40 WBC 12.1 H RBC 4.21 Hgb 11.2 L D Hct 34.8 L MCV 82.7 D MCH 26.6 MCHC 32.2 RDW 19.7 H Plt Count 156 PT 16.1 H INR 1.45 APTT 38.0 Sodium 136 Potassium 3.6 Chloride 100 Carbon Dioxide 26 Anion Gap 14 BUN 16 Creatinine 0.4 L Est GFR ( Amer) > 60 Est GFR (Non-Af Amer) > 60 Random Glucose 154 H Calcium 9.1 Total Bilirubin 2.6 H AST 92 H D ALT 35 Alkaline Phosphatase 313 H D Ammonia Troponin I Total Protein 7.7 Albumin 3.4 Globulin 4.3 Albumin/Globulin Ratio 0.8 L Lipase 250 10/12/18 10/12/18 01:40 03:00 WBC RBC Hgb Hct MCV MCH MCHC RDW Plt Count PT INR APTT Sodium Potassium Chloride Carbon Dioxide Anion Gap BUN Creatinine Est GFR ( Amer) Est GFR (Non-Af Amer) Random Glucose Calcium Total Bilirubin AST ALT Alkaline Phosphatase Ammonia 29 Troponin I < 0.01 Total Protein Albumin Globulin Albumin/Globulin Ratio Lipase Assessment & Plan - Assessment and Plan (Free Text) Assessment: 72yo male with PMHx significant for decompensated EtOH cirrhosis c/b ascites and bleeding esophageal varices, h/o HBV, EtOH abuse, COPD and tobacco abuse, blindness and decreased hearing acuity who presented to the ED for abd pain. -Decompensated EtOH cirrhosis -Ascites due to above -Esophageal varices, h/o -EtOH abuse -HBV exposure and clearance per prior lab work Plan: - Paracentesis 10/13 Check cell count with differential and total protein of peritoneal fluid - Check Abd Doppler to eval for PVT as cause of refractory ascites - Cont Furosemide 40 mg PO QD and Spironolactone 100 mg PO QD - Monitor BMP, Daily weights and I&O - Clear liquid Low Na diet Lactulose for suspected constipation, patient not obviously encephalopathic at this time - Patient previously refused colonoscopy evaluation due to noncompliance with bowel preparation Pt discussed with Dr. Oropeza; please see attestation for further recs/changes. <Deyanira Oropeza V - Last Filed: 10/12/18 23:25> Meds - Medications Medications: Current Medications Arformoterol Tartrate (Brovana) 15 mcg IH [id number] [facility] Last Admin: 10/12/18 08:26 Dose: 15 mcg Budesonide (Pulmicort Respules) 0.25 mg IH [id number] [facility] Last Admin: 10/12/18 20:26 Dose: 0.25 mg Dorzolamide/Timolol (Cosopt 2%-0.5% Opht) 1 drop OD BID [facility] Last Admin: 10/12/18 17:20 Dose: 1 drop Furosemide (Lasix) 40 mg PO DAILY [facility] Last Admin: 10/12/18 11:57 Dose: Not Given Hydromorphone HCl (Dilaudid) 0.25 mg IVP Q8H PRN PRN Reason: Pain, Mild (1-3) Metronidazole (Flagyl) 500 mg in 100 mls @ 100 mls/hr IVPB Q8 JUANITA; Protocol Ceftriaxone Sodium (Rocephin 1 Gram Ivpb) 1 gm in 100 mls @ 100 mls/hr IVPB DAILY [facility]; Protocol Lactulose (Enulose) 30 gm PO BID [facility] Last Admin: 10/12/18 17:17 Dose: 30 gm Latanoprost (Xalatan Opht) 0 ml OD DAILY [facility] Last Admin: 10/12/18 11:57 Dose: 2.5 ml Nicotine (Nicoderm Cq) 1 patch TD DAILY [facility] Non-Formulary Medication (Nystatin [Nystatin Oral Susp]) 5 ml PO QID [facility] Pantoprazole Sodium (Protonix Ec Tab) 40 mg PO 0600 [facility] Sertraline HCl (Zoloft) 25 mg PO DAILY [facility] Last Admin: 10/12/18 17:16 Dose: 25 mg Spironolactone (Aldactone) 100 mg PO DAILY [facility] Last Admin: 10/12/18 17:16 Dose: 100 mg Results - Vital Signs Recent Vital Signs: Last Vital Signs Temp 4 F L 03/10/19 14:00 Pulse 86 10/12/18 14:00 Resp 20 10/12/18 14:00 BP 108/63 10/12/18 14:00 Pulse Ox 93 L 10/12/18 14:00 - Labs Result Diagrams: 10/12/18 01:40 10/12/18 01:40 Labs: Laboratory Results - last 24 hr 10/12/18 10/12/18 10/12/18 01:40 01:40 01:40 WBC 12.1 H RBC 4.21 Hgb 11.2 L D Hct 34.8 L MCV 82.7 D MCH 26.6 MCHC 32.2 RDW 19.7 H Plt Count 156 PT 16.1 H INR 1.45 APTT 38.0 Sodium 136 Potassium 3.6 Chloride 100 Carbon Dioxide 26 Anion Gap 14 BUN 16 Creatinine 0.4 L Est GFR ( Amer) > 60 Est GFR (Non-Af Amer) > 60 Random Glucose 154 H Calcium 9.1 Total Bilirubin 2.6 H AST 92 H D ALT 35 Alkaline Phosphatase 313 H D Ammonia Troponin I Total Protein 7.7 Albumin 3.4 Globulin 4.3 Albumin/Globulin Ratio 0.8 L Lipase 250 10/12/18 10/12/18 01:40 03:00 WBC RBC Hgb Hct MCV MCH MCHC RDW Plt Count PT INR APTT Sodium Potassium Chloride Carbon Dioxide Anion Gap BUN Creatinine Est GFR ( Amer) Est GFR (Non-Af Amer) Random Glucose Calcium Total Bilirubin AST ALT Alkaline Phosphatase Ammonia 29 Troponin I < 0.01 Total Protein Albumin Globulin Albumin/Globulin Ratio Lipase Attending/Attestation - Attestation I have personally seen and examined this patient.: Yes I have fully participated in the care of the patient.: Yes I have reviewed all pertinent clinical information: Yes Notes (Text): This is an addendum to GI consult report dictated by the GI Fellow. The patient was seen and examined earlier. Medical records, lab studies, imagings were reviewed. Last 24 hours events reviewed. Agreed with the above treatment plan as outlined in GI Fellow 's notes with the addition of the following 10/12/18 23:25
--- NOTE | 2018-10-12 11:26 | CT ---
Date of service: 10/12/2018 PROCEDURE: CT Abdomen and Pelvis without intravenous contrast HISTORY: pain COMPARISON: None. TECHNIQUE: Helical CT of the abdomen and pelvis was performed without oral or intravenous contrast as per referring physician request. Coronal and sagittal reformats were generated.. Contrast dose: None Radiation dose: Total exam DLP = 272.78 mGy-cm. This CT exam was performed using one or more of the following dose reduction techniques: Automated exposure control, adjustment of the mA and/or kV according to patient size, and/or use of iterative reconstruction technique. FINDINGS: LOWER THORAX: Small pericardial effusion or limited thickening noted anteriorly. Thoracic aortic calcification noted as well as coronary artery calcified atherosclerosis. Resolution of prior bilateral pleural effusions. Small hiatal hernia reiterated. LIVER: Cirrhotic liver again identified, slightly shrunken. No gross mass or intra hepatic biliary duct dilatation appreciable in this unenhanced exam. GALLBLADDER AND BILE DUCTS: A distended gallbladder is appreciate without mural thickening. Cholelithiasis is once again identified within the lumen. Overall gallbladder dilatation is increased in the interval. PANCREAS: Unremarkable. No gross lesion or ductal dilatation. SPLEEN: Trace peripheral calcification reiterated at the spleen which remains normal size overall. ADRENALS: Unremarkable. No mass. KIDNEYS AND URETERS: Unremarkable. No hydronephrosis. No renal contour abnormality to suggest mass. VASCULATURE: Nonaneurysmal abdominal aortic calcific atherosclerotic changes are identified. Small renal, gastrohepatic and esophageal varices are reiterated. BOWEL: Stomach is mildly distend with retained food. Moderate retained fecal material scattered throughout the ascending and proximal transverse colon and is minimally present otherwise. No bowel obstruction identified. APPENDIX: Unremarkable. Normal appendix. PERITONEUM: Unremarkable. No free fluid. No free air. LYMPH NODES: Unremarkable. No enlarged lymph nodes. BLADDER: Unremarkable. REPRODUCTIVE: Unremarkable. BONES: Prior ORIF proximal left femur obscures imaging through the inferior pelvis. OTHER FINDINGS: None. IMPRESSION: 1. Cirrhotic liver reiterated with persistent but stable prominent ascites and evidence to suggest hepatofugal blood flow including various varices as discussed above. Varices are better evaluated with intravenous contrast, available in repeat CT abdomen as clinically required. 2. Further gallbladder distention appreciated with cholelithiasis but no gross mural thickening. Clinically correlate nevertheless for possible cholecystitis. 3. Other lesser findings as discussed above. Concordant preliminary report from [place], 10/12/2018, 3:47 a.m..
[2018-10-12] MEDS: Latanoprost 2.5 ml Opht Soln OD SCH (11:57)
[2018-10-12] MEDS: Dorzolamide 2%/Timolol 0.5% 100 DROP/10 ML BOTTLE OD SCH ×2 (11:57→17:20)
[2018-10-12 14:56] VITALS: BMI 15.0
--- NOTE | 2018-10-12 16:20 | US ---
Date of service: 10/12/2018 HISTORY: abd pain COMPARISON: Abdomen and pelvis CT without contrast 10/12/2017. TECHNIQUE: Sonographic evaluation of the abdomen. FINDINGS: LIVER: Measures 14.9 cm. Mildly heterogeneous echogenicity of the liver parenchyma is appreciate with nodular peripheral margins compatible with cirrhosis. No definitive mass appreciated. No obvious intrahepatic biliary dilatation. GALLBLADDER: A distended gallbladder is appreciated with cholelithiasis in the lumen and mural thickening up to 3.6 mm. Sludge is also identified in the lumen. The gallbladder is distended and pericholecystic fluid is appreciated versus ascites. Ascites identified in the abdomen as well and mural thickening may be a function of hydrops. Clinically correlate as to whether cholecystitis is in effect. COMMON BILE DUCT: Measures 4.8 mm. No stones. No dilatation. PANCREAS: The majority of the pancreas is obscured by gastrointestinal gas with the head through proximal body unremarkable appearing. RIGHT KIDNEY: Measures 10.4cm. Normal echogenicity. No calculus, mass, or hydronephrosis. LEFT KIDNEY: Measures 9.3cm. Normal echogenicity. No calculus, mass, or hydronephrosis. SPLEEN: Normal in size and contour, 10.5 cm greatest dimension. No mass. AORTA: No aneurysmal dilatation. IVC: Unremarkable. OTHER FINDINGS: None. IMPRESSION: 1. Cirrhotic liver is identified without focal mass or intrahepatic biliary duct dilatation appreciated. 2. Moderate abdominal ascites is noted and a distended gallbladder is appreciate with calculi and mural thickening potentially reflecting cholecystitis. The pattern could reflect hydrops and further clinical correlation is advised. 3. Partial imaging of the pancreas.
[2018-10-12] MEDS ORDERED: Arformoterol 15 mcg/2 ml Inh Sol IH SCH (20:00)
--- NOTE | 2018-10-12 20:11 | CARD ---
APPROVED REPORT Date of service: 10/12/2018 EKG Measurement Heart [id number] <Conclusion> Normal sinus rhythm Left axis deviation Low voltage QRS Inferior infarct, age undetermined Abnormal ECG
[2018-10-12] MEDS: Budesonide 0.25 mg/2 ml Inhal Susp UD IH SCH (20:26)
[2018-10-12] MEDS: metroNIDAZOLE IV 500 mg/100 ml 500 MG/100 ML BAG IVPB SCH (23:03)
[2018-10-12] MEDS: NYSTATIN PO SCH (23:03)
--- NOTE | 2018-10-13 00:09 | HP ---
DATE OF EXAM: 10/12/2018 The patient is a 72-year-old male. The patient was seen and examined at the bedside on 10/12/2018. CHIEF COMPLAINT: Abdominal pain. HISTORY OF PRESENT ILLNESS: Mr. Esteban Carrion is a 72-year-old male with past medical history of liver cirrhosis, ascites, esophageal varices, alcohol abuse, heavy smoking, COPD, noncompliance, CVA, deafness, GERD, GI bleeding, depression, paracentesis, hernia repair, came to the emergency department with abdominal pain. The patient states that he began experiencing upper abdominal pain with associated vomiting and diarrhea after eating cherries and prunes on the day of admission. The patient denies fever or chills. No shortness of breath, but cannot sleep at night. No nausea. No urinary symptoms. No back pain, neck pain, headache or dizziness, but only complaining about mainly abdominal pain. PAST MEDICAL HISTORY: Coronary artery disease, hypertension, COPD, cerebrovascular accident, cataract, deafness, glaucoma, cirrhosis of the liver, arthritis, esophageal varices, depression, and psychosis. FAMILY HISTORY: Father and mother, noncontributory. HABITS: Light smoker. Alcohol; no. Substance abuse; no. ALLERGIES: THE PATIENT IS NOT ALLERGIC WITH ANY MEDICATIONS. HOME MEDICATIONS: Reviewed by me. Eyedrops and Zoloft. REVIEW OF SYSTEMS: The patient was seen and examined at the bedside, looking comfortable except that abdominal pain. No shortness of breath, coughing, sputum or wheezing production. No chest pain. No rash. No headache. No dizziness. PHYSICAL EXAMINATION VITAL SIGNS: Pulse 66, respirations 16, blood pressure 188/91 and pulse oximetry 100%. HEENT: Head; normocephalic, atraumatic. Eyes; PERRLA. Extraocular muscles intact. Conjunctivae clear. Nose; patent. Mucous membrane moist. NECK: Supple. No carotid bruit. No JVD or thyromegaly. CHEST: Bilaterally symmetrical. HEART: S1 and S2 positive. LUNGS: Clear to auscultation. Good air exchange. No respiratory distress. ABDOMEN: Soft. Mid to upper abdominal tenderness. Normal bowel sounds. No organomegaly, but abdomen is distended. EXTREMITIES: No edema. No cyanosis. NEUROLOGIC: The patient is awake and alert. Follows simple commands. LABORATORY DATA: White blood cell is 12.1, hemoglobin 11.2, hematocrit 34.8, and platelets 156. Sodium 136, potassium 3.6, BUN 15, creatinine 0.4, glucose 154, albumin 2.6, AST 92. ASSESSMENT AND PLAN: Mr. Esteban Carroin is a 72-year-old male with leukocytosis, anemia, hyperglycemia, abnormal liver function test, came with abdominal pain. Abdominal ultrasound was done, showed cirrhotic lever without focal mass or intrahepatic biliary duct dilatation appreciated, morbid abdominal ascites is noted and distended gallbladder is appreciated with calculi and mural thickening ostensibly reflecting cholecystitis. The patient could reflect hydrops and further clinical correlation is advised. Partial imaging of the pancreas otherwise is unremarkable appearing. Seen by GI. The patient has history of ethanol abuse, ascites, bleeding esophageal ulcers, hepatitis B virus exposure, chronic obstructive pulmonary disease, tobacco abuse, blindness, decreased hearing acuity, history of left hip repair, hernia repair. Ascites due to cirrhosis. Esophageal varices due to history of ethanol abuse. Paracentesis was done on 10/13/2018. The patient is on clear liquid diet, low sodium diet, lactulose for constipation. The patient has a history of constipation. The patient do not look like encephalopathic at this time. The patient is very noncompliant. History of obstructive sleep apnea syndrome, chronic obstructive pulmonary disease. CAT scan of the abdomen and pelvis done. Cholelithiasis, rule out cholecystitis. We will repeat labs. We will follow. Evie Ponce MD
[2018-10-13] MEDS: HYDROmorphone 0.5 mg/0.5 ml ISec IVP PRN ×2 (06:08→23:16)
[2018-10-13] MEDS: metroNIDAZOLE IV 500 mg/100 ml 500 MG/100 ML BAG IVPB SCH ×3 (06:08→22:23)
[2018-10-13] MEDS: Pantoprazole 40 mg EC Tab PO SCH (06:08)
[2018-10-13 07:34] LABS: HEMOGLOBIN 9.4 g/dL (14.0-18.0); MEAN CELL VOLUME 82.4 fl (80.0-105.0); MEAN CORPUSCULAR HEMOGLOBIN 25.9 pg (25.0-35.0); MEAN CORPUSCULAR HGB CONC 31.4 g/dl (31.0-37.0); PLATELET COUNT 113 10^3/uL (120.0-450.0); RBC 3.63 10^6/uL (3.5-6.1); RED CELL DISTRIBUTION WIDTH 19.4 % (11.5-14.5)
[2018-10-13] MEDS: Arformoterol 15 mcg/2 ml Inh Sol IH SCH ×2 (07:38→20:54)
[2018-10-13] MEDS: Budesonide 0.25 mg/2 ml Inhal Susp UD IH SCH ×2 (07:39→20:54)
[2018-10-13 07:45] LABS: BLOOD UREA NITROGEN 18 mg/dL (7-21); CALCIUM 8.3 mg/dL (8.4-10.5); GFR NON-AFRICAN AMERICAN > 60; HDL CHOLESTEROL 13 mg/dL (29-60)
[2018-10-13 07:53] LABS: IRON 17 ug/dL (45-180)
[2018-10-13 07:56] LABS: LDL CHOLESTEROL 43 mg/dL (0-129)
[2018-10-13 08:03] LABS: % IRON SATURATION 7 % (20-55); TOTAL IRON BINDING CAPACITY 242 ug/dL (261-462)
--- NOTE | 2018-10-13 09:34 | US ---
PROCEDURE: Portal vein duplex ultrasound. CLINICAL HISTORY: Cirrhosis. Deteriorating liver function. Evaluate for portal vein thrombosis. PHYSICIAN(S): Juan Miguel Scott M.D. FINDINGS: The visualized liver parenchyma is heterogeneous with a nodular contour consistent with cirrhosis. Limited images show no evidence of an obvious mass The extrahepatic portal vein is patent with hepatopetal flow. Hepatic artery is prominent. The central hepatic veins are patent. There is a moderate amount of ascites in the upper abdomen IMPRESSION: 1. Patent portal vein with hepatopetal flow.
[2018-10-13] MEDS: Latanoprost 2.5 ml Opht Soln OD SCH (09:36)
[2018-10-13] MEDS: Dorzolamide 2%/Timolol 0.5% 100 DROP/10 ML BOTTLE OD SCH ×2 (09:37→19:03)
[2018-10-13] MEDS: cefTRIAXone 1 gm 1 GM/100 ML BAG IVPB SCH (09:38)
--- NOTE | 2018-10-13 09:57 | CP.PCM.PN ---
<José Antonio Hopkins - Last Filed: 10/13/18 15:07> Subjective - Date & Time of Evaluation Date of Evaluation: 10/13/18 Time of Evaluation: 09:56 - Subjective Subjective: José Antonio Hopkins PGY2 GI Progress Note for Dr. Oropeza Patient was seen and examined at bedside. He denies any shortness of breath, abdominal pain or fevers/chills. He does complain of abdominal pain due to the ascites but denies any nausea/vomiting. There were no acute overnight events. Objective - Vital Signs/Intake and Output Vital Signs (last 24 hours): Temp Pulse Resp BP Pulse Ox 99 F 78 18 136/82 99 10/13/18 08:00 10/13/18 08:00 10/13/18 08:00 10/13/18 09:16 10/13/18 08:00 Intake and Output: 10/13/18 10/13/18 06:59 18:59 Intake Total 540 Output Total 125 Balance 415 - Medications Medications: Current Medications Arformoterol Tartrate (Brovana) 15 mcg [facility] [id number] [facility] Last Admin: 10/13/18 07:38 Dose: 15 mcg Budesonide (Pulmicort Respules) 0.25 mg [facility] [id number] [facility] Last Admin: 10/13/18 07:39 Dose: 0.25 mg Dorzolamide/Timolol (Cosopt 2%-0.5% Opht) 1 drop OD BID [facility] Last Admin: 10/13/18 09:37 Dose: 1 drop Furosemide (Lasix) 40 mg PO DAILY [facility] Last Admin: 10/13/18 09:16 Dose: 40 mg Hydromorphone HCl (Dilaudid) 0.25 mg IVP Q8H PRN PRN Reason: Pain, Mild (1-3) Last Admin: 10/13/18 06:08 Dose: 0.25 mg Metronidazole (Flagyl) 500 mg in 100 mls @ 100 mls/hr IVPB Q8 [facility]; Protocol Last Admin: 10/13/18 06:08 Dose: 100 mls/hr Ceftriaxone Sodium (Rocephin 1 Gram Ivpb) 1 gm in 100 mls @ 100 mls/hr IVPB DAILY [facility]; Protocol Last Admin: 10/13/18 09:38 Dose: 100 mls/hr Lactulose (Enulose) 30 gm PO BID [facility] Last Admin: 10/13/18 09:17 Dose: 30 gm Latanoprost (Xalatan Opht) 0 ml OD DAILY [facility] Last Admin: 10/13/18 09:36 Dose: 2.5 ml Nicotine (Nicoderm Cq) 1 patch TD DAILY [facility] Last Admin: 10/13/18 09:17 Dose: 1 patch Non-Formulary Medication (Nystatin [Nystatin Oral Susp]) 5 ml PO QID [facility] Last Admin: 10/12/18 23:03 Dose: Not Given Pantoprazole Sodium (Protonix Ec Tab) 40 mg PO 0600 [facility] Last Admin: 10/13/18 06:08 Dose: 40 mg Sertraline HCl (Zoloft) 25 mg PO DAILY [facility] Last Admin: 10/13/18 09:17 Dose: 25 mg Spironolactone (Aldactone) 100 mg PO DAILY [facility] Last Admin: 10/13/18 09:16 Dose: 100 mg - Labs Labs: 10/13/18 07:00 10/13/18 07:00 PT 16.1 SECONDS (9.4-12.5) H 10/12/18 01:40 INR 1.45 10/12/18 01:40 APTT 38.0 Seconds (26.9-38.3) 10/12/18 01:40 - Constitutional Appears: Well, Non-toxic, No Acute Distress - Head Exam Head Exam: ATRAUMATIC, NORMAL INSPECTION, NORMOCEPHALIC - Eye Exam Eye Exam: EOMI, PERRL Pupil Exam: PERRL - ENT Exam ENT Exam: Mucous Membranes Moist, Normal Exam - Neck Exam Neck Exam: Full ROM, Normal Inspection. absent: Lymphadenopathy - Respiratory Exam Respiratory Exam: Clear to Ausculation Bilateral, NORMAL BREATHING PATTERN. absent: Wheezes - Cardiovascular Exam Cardiovascular Exam: REGULAR RHYTHM, +S1, +S2. absent: Murmur - GI/Abdominal Exam GI & Abdominal Exam: Distended, Soft, Normal Bowel Sounds. absent: Guarding, Rigid, Tenderness Additional comments: + fluid wave - Extremities Exam Extremities Exam: Full ROM, Normal Capillary Refill, Normal Inspection. absent: Joint Swelling, Pedal Edema - Back Exam Back Exam: NORMAL INSPECTION - Neurological Exam Neurological Exam: Alert, Awake, Oriented x3 - Psychiatric Exam Psychiatric exam: Normal Affect, Normal Mood - Skin Skin Exam: Dry, Intact, Normal Color, Warm Assessment and Plan - Assessment and Plan (Free Text) Assessment: 72 year old male with a PMH of decompensated EtOH cirrhosis c/b ascites and bleeding esophageal varices, h/o HBV, EtOH abuse, COPD and tobacco abuse, blindness and decreased hearing acuity who is admitted for cirrhotic ascites. Abd US/Doppler were negative for PVT. MELD score 15; Child Class B. Plan: - Paracentesis scheduled for today - Check cell count with differential and total protein of peritoneal fluid - Cont Furosemide 40 mg PO QD and Spironolactone 100 mg PO QD - Monitor BMP, Daily weights and I&O - Clear liquid Low Na diet; advance as tolerated - Lactulose for suspected constipation, patient not obviously encephalopathic at this time - Patient previously refused colonoscopy evaluation due to noncompliance with bowel preparation This note is note finalized until signed <Deyanira Oropeza V - Last Filed: 10/13/18 23:40> Objective - Vital Signs/Intake and Output Vital Signs (last 24 hours): Temp Pulse Resp BP Pulse Ox 99.5 F 83 18 115/78 98 10/13/18 21:18 10/13/18 21:18 10/13/18 21:18 10/13/18 21:18 10/13/18 21:18 - Medications Medications: Current Medications Arformoterol Tartrate (Brovana) 15 mcg [facility] [id number] [facility] Last Admin: 10/13/18 20:54 Dose: 15 mcg Budesonide (Pulmicort Respules) 0.25 mg [facility]H [id number] [facility] Last Admin: 10/13/18 20:54 Dose: 0.25 mg Dorzolamide/Timolol (Cosopt 2%-0.5% Opht) 1 drop OD BID [facility] Last Admin: 10/13/18 19:03 Dose: 1 drop Furosemide (Lasix) 40 mg PO DAILY [facility] Last Admin: 10/13/18 09:16 Dose: 40 mg Hydromorphone HCl (Dilaudid) 0.25 mg IVP Q8H PRN PRN Reason: Pain, Mild (1-3) Last Admin: 10/13/18 23:16 Dose: 0.25 mg Metronidazole (Flagyl) 500 mg in 100 mls @ 100 mls/hr IVPB Q8 [facility]; Protocol Last Admin: 10/13/18 22:23 Dose: 100 mls/hr Ceftriaxone Sodium (Rocephin 1 Gram Ivpb) 1 gm in 100 mls @ 100 mls/hr IVPB DAILY [facility]; Protocol Last Admin: 10/13/18 09:38 Dose: 100 mls/hr Lactulose (Enulose) 30 gm PO BID [facility] Last Admin: 10/13/18 19:05 Dose: 30 gm Latanoprost (Xalatan Opht) 0 ml OD DAILY [facility] Last Admin: 10/13/18 09:36 Dose: 2.5 ml Nicotine (Nicoderm Cq) 1 patch TD DAILY [facility] Last Admin: 10/13/18 09:17 Dose: 1 patch Non-Formulary Medication (Nystatin [Nystatin Oral Susp]) 5 ml PO QID [facility] Last Admin: 10/13/18 22:27 Dose: Not Given Pantoprazole Sodium (Protonix Ec Tab) 40 mg PO 0600 [facility] Last Admin: 10/13/18 06:08 Dose: 40 mg Sertraline HCl (Zoloft) 25 mg PO DAILY [facility] Last Admin: 10/13/18 09:17 Dose: 25 mg Spironolactone (Aldactone) 100 mg PO DAILY [facility] Last Admin: 10/13/18 09:16 Dose: 100 mg - Labs Labs: 10/13/18 07:00 10/13/18 07:00 PT 16.1 SECONDS (9.4-12.5) H 10/12/18 01:40 INR 1.45 10/12/18 01:40 APTT 38.0 Seconds (26.9-38.3) 10/12/18 01:40 Attending/Attestation - Attestation I have personally seen and examined this patient.: Yes I have fully participated in the care of the patient.: Yes I have reviewed all pertinent clinical information, including history, physical exam and plan: Yes Notes (Text): This is an addendum to GI progress report dictated by the medical technologist clinical. The patient was seen and examined earlier. Medical records, lab studies, imagings were reviewed. Last 24 hours events reviewed. Agreed with the above treatment plan as outlined in resident 's notes with the addition of the following Status post paracentesis Patient is very extremely noncompliant Previous endoscopy reports reviewed Patient refused colonoscopies in the past Discussed with patient's brother and explained about his brother's condition and noncompliance he fully understood Patient has been empirically on antibiotics Follow-up ascitic fluid culture Advance the diet Patient would benefit from elective colonoscopy Diuretics high-dose has been on hold Plan is to start him on 50 mg of Aldactone and Lasix 20 mg and close follow-up of electrolytes The real challenges making him compliant with the follow-up while on diuretics 10/13/18 23:37
[2018-10-13 12:12] LABS: BODY FLUID TYPE PERITONEAL
[2018-10-13 13:15] LABS: BODY FLUID TOTAL COUNT 100 (0-0)
[2018-10-13 13:16] LABS: BF GROSS APPEARANCE SL CLOUDY (CLEAR)
[2018-10-13 13:32] LABS: FOLATE 9.7 ng/mL
--- NOTE | 2018-10-13 13:52 | US ---
Date of service: 10/13/2018 PROCEDURE: HISTORY: US PARA COMPARISON: TECHNIQUE: FINDINGS: Sample images of the right lower quadrant demonstrates free fluid in the right abdominal pelvic cavity for purposes of paracentesis. IMPRESSION: As above.
--- NOTE | 2018-10-13 14:54 | CON ---
DATE: 10/13/2018 PULMONARY CONSULT NOTE REFERRING PHYSICIAN: Evie Ponce MD REASON FOR CONSULT: Insomnia, shortness of breath and chronic lung disease. HISTORY OF PRESENT ILLNESS: This is a 72-year-old male well known to us from previous admissions. The patient has past medical history significant for ascites, esophageal varices, alcohol abuse, smoking, COPD, CVA, deafness and GERD, GI bleed, depression, paracentesis in the past and hernia repair. The patient is also has history of noncompliance. The patient came to the emergency department complaining of abdominal pain, states that he began having upper abdominal pain with vomiting and diarrhea after eating cherries and on the day of admission. No cough and shortness of breath. No nausea. The patient does complaint of some abdominal pain. PAST MEDICAL HISTORY: As per HPI. FAMILY HISTORY: No significant cardiopulmonary disease reported. SOCIAL HISTORY: Positive for ETOH abuse. Smoker. No illicit drug use. ALLERGIES: NO KNOWN ALLERGIES. REVIEW OF SYSTEMS: No headache, rhinitis, cough, shortness of breath, chest pain, nausea, vomiting, diarrhea, leg pain or leg swelling reported. The patient is complaining of some left-sided abdominal pain. PHYSICAL EXAMINATION: VITAL SIGNS: Blood pressure 136/82, pulse 78, temperature 99, oxygen saturation 99% on nasal cannula. GENERAL: No acute distress. HEENT: Moist mucous membrane. NECK: Supple. No JVD. RESPIRATORY: Fair airflow bilaterally. No audible wheeze. CARDIOVASCULAR: S1 and S2. ABDOMEN: Soft. Tenderness noted to upper quadrants. Abdomen distended. EXTREMITIES: No bilateral lower extremity edema. NEUROLOGIC: Awake, alert and verbal. Following simple commands. LABORATORY DATA: Reviewed. WBC 9, RBC 3.68, hemoglobin 9.4, hematocrit 29.9 and platelets 113. Sodium 136, potassium 3.9, chloride 99, carbon dioxide 31, anion gap 9, BUN 18, creatinine 0.6, GFR greater than 60, random glucose 98, hemoglobin A1C 4.7, calcium 8.3, iron 17, TIBC 242, percent saturation 7, troponin less than 0.01, triglycerides 60, cholesterol 69, LDL cholesterol 43, HDL cholesterol 13 and TSH 2.12. Peritoneal fluid showing WBC 4.2, RBCs 3168, total polymorphonuclear cells 24. Blood cultures preliminary no growth after [address] shows cirrhotic liver persistent, but stable prominent ascites, gallbladder distention appreciated with cholelithiasis. No growth, mural thickening. EKG normal sinus rhythm. Chest x-ray no acute cardiopulmonary disease appreciated, abdominal ultrasound patent portal vein with hepatopetal flow, no evidence of obvious mass. IMPRESSION AND PLAN: Chronic obstructive lung disease, cirrhosis of the liver, ascites, anemia, history of hepatitis B, history of esophageal varices, history of alcohol abuse, blindness, tobacco use, decreased hearing, history of hernia repair, paracentesis was done today, awaiting report, we will followup when available. The patient has history of noncompliance, agreed with inhaled bronchodilators use. Continue inhaled bronchodilators. Continue Nicoderm patch, smoking cessation. We will hold Lasix and spironolactone at this time and continue to monitor the patient labs and monitor the patient clinically before we starting diuretics. Gastric prophylaxis. We will place the patient on sequential compression devices for deep vein thrombosis prophylaxis. Low chemical prophylaxis with deep venous thrombosis due to history of gastrointestinal bleed and correct anemia status. Continue antibiotic therapy. Continue gastrointestinal followup. This patient was seen and examined with Dr. Atkins. Discussed assessment and plan as described above. This patient was seen and examined with Garry Gutierrez, nurse practitioner. Discussed assessment and plan as described above. Thank you for this consult. We will follow with you. Garry Gutierrez APN Theodore Atkins MD
--- NOTE | 2018-10-13 18:22 | PN ---
DATE: 10/13/2018 SUBJECTIVE: The patient was seen and examined at the bedside on 10/13/2018. Looking comfortable. Went for paracentesis by Dr. Juan Miguel Scott. Denies any shortness of breath. No abdominal pain. No hematuria. No hematochezia. PHYSICAL EXAMINATION: VITAL SIGNS: Temperature 99, pulse 78, respiratory rate 18, blood pressure 130/72 and pulse oximetry 99%. HEENT: Head is normocephalic and atraumatic. Eyes; PERRLA. Extraocular muscles intact. Conjunctiva clear. Nose patent. Mucous membrane moist. NECK: Supple. No carotid bruits. No JVD or thyromegaly. CHEST: Bilaterally symmetrical. HEART: S1 and S2, positive. LUNGS: Clear to auscultation. ABDOMEN: Soft. Bowel sounds present. No organomegaly. EXTREMITIES: No edema. No cyanosis. NEUROLOGIC: The patient is awake and alert. Moving all four extremities. No focal deficit. MEDICATIONS: Brovana, Pulmicort, Lasix, Dilaudid, Flagyl, Rocephin, lactulose, Nicoderm patch, nystatin oral suspension, Protonix, sertraline and Aldactone. LABORATORY DATA: White blood cells 9.0, hemoglobin 9.4, hematocrit 29.9 and platelets 113. Sodium 136, potassium 3.9, BUN 18, creatinine 1.6, and glucose 198. ASSESSMENT AND PLAN: Mr. Sheyla Orellana is a 72-year-old male with anemia, thrombocytopenia, cirrhosis of the liver, history of decompensated atenolol abuse and cirrhosis, history of ascites, bleeding esophageal varices, history of hepatitis B, chronic obstructive pulmonary disease, tobacco abuse, alcohol abuse, blindness, decreased hearing acuity, admitted for cirrhotic ascites, abdominal pain. Abdominal ultrasounds Doppler were negative for deep venous thrombosis, MELD score 15. Paracentesis done today. Continue furosemide, monitoring BMP on a daily basis, clear liquid low sodium diet, lactulose for suspected constipation and for cirrhosis of the liver. Discussion done with nurse practitioner Cherelle. Repeat labs. We will follow up. Evie Ponce MD [facility] # [id number]
[2018-10-13] MEDS: NYSTATIN PO SCH ×2 (19:09→22:27)
[2018-10-14] MEDS: metroNIDAZOLE IV 500 mg/100 ml 500 MG/100 ML BAG IVPB SCH ×3 (05:20→21:07)
[2018-10-14] MEDS: Pantoprazole 40 mg EC Tab PO SCH (05:20)
[2018-10-14 06:25] LABS: URINE BILIRUBIN LARGE (NEGATIVE); URINE BLOOD NEGATIVE (NEGATIVE); URINE GLUCOSE (UA) NEGATIVE (NEGATIVE); URINE LEUKOCYTE ESTERASE NEGATIVE Leu/uL (NEGATIVE); URINE PROTEIN NEGATIVE mg/dL (<30 mg/dL); URINE UROBILINOGEN 0.2 E.U./dL (<1 E.U./dL)
[2018-10-14 06:28] LABS: URINE APPEARANCE CLEAR (CLEAR); URINE COLOR YELLOW (YELLOW)
[2018-10-14] MEDS: HYDROmorphone 0.5 mg/0.5 ml ISec IVP PRN (06:36)
--- NOTE | 2018-10-14 07:03 | CP.PCM.PN ---
<José Antonio Hopkins - Last Filed: 10/14/18 11:01> Subjective - Date & Time of Evaluation Date of Evaluation: 10/14/18 Time of Evaluation: 07:59 - Subjective Subjective: José Antonio Hopkins PGY2 GI Progress Note for Dr. Oropeza Patient was seen and examined at bedside. He denies any shortness of breath, abdominal pain or fevers/chills. His abdomen feels much better post paracentesis, and fluid analysis does not show any signs of SBP. no acute overnight events. Objective - Vital Signs/Intake and Output Vital Signs (last 24 hours): Temp Pulse Resp BP Pulse Ox 99.5 F 83 18 115/78 98 10/13/18 21:18 10/13/18 21:18 10/13/18 21:18 10/13/18 21:18 10/13/18 21:18 - Medications Medications: Current Medications Arformoterol Tartrate (Brovana) 15 mcg IH [id number] [facility] Last Admin: 10/13/18 20:54 Dose: 15 mcg Budesonide (Pulmicort Respules) 0.25 mg IH [id number] [facility] Last Admin: 10/13/18 20:54 Dose: 0.25 mg Dorzolamide/Timolol (Cosopt 2%-0.5% Opht) 1 drop OD BID [facility] Last Admin: 10/13/18 19:03 Dose: 1 drop Furosemide (Lasix) 40 mg PO DAILY [facility] Last Admin: 10/13/18 09:16 Dose: 40 mg Hydromorphone HCl (Dilaudid) 0.25 mg IVP Q8H PRN PRN Reason: Pain, Mild (1-3) Last Admin: 10/14/18 06:36 Dose: 0.25 mg Metronidazole (Flagyl) 500 mg in 100 mls @ 100 mls/hr IVPB Q8 [facility]; Protocol Last Admin: 10/14/18 05:20 Dose: 100 mls/hr Ceftriaxone Sodium (Rocephin 1 Gram Ivpb) 1 gm in 100 mls @ 100 mls/hr IVPB DAILY [facility]; Protocol Last Admin: 10/13/18 09:38 Dose: 100 mls/hr Lactulose (Enulose) 30 gm PO BID [facility] Last Admin: 10/13/18 19:05 Dose: 30 gm Latanoprost (Xalatan Opht) 0 ml OD DAILY [facility] Last Admin: 10/13/18 09:36 Dose: 2.5 ml Nicotine (Nicoderm Cq) 1 patch TD DAILY [facility] Last Admin: 10/13/18 09:17 Dose: 1 patch Non-Formulary Medication (Nystatin [Nystatin Oral Susp]) 5 ml PO QID [facility] Last Admin: 10/13/18 22:27 Dose: Not Given Pantoprazole Sodium (Protonix Ec Tab) 40 mg PO 0600 [facility] Last Admin: 10/14/18 05:20 Dose: 40 mg Sertraline HCl (Zoloft) 25 mg PO DAILY [facility] Last Admin: 10/13/18 09:17 Dose: 25 mg Spironolactone (Aldactone) 100 mg PO DAILY [facility] Last Admin: 10/13/18 09:16 Dose: 100 mg - Labs Labs: 10/13/18 07:00 10/13/18 07:00 PT 16.1 SECONDS (9.4-12.5) H 10/12/18 01:40 INR 1.45 10/12/18 01:40 APTT 38.0 Seconds (26.9-38.3) 10/12/18 01:40 - Constitutional Appears: Well, Non-toxic, No Acute Distress - Head Exam Head Exam: ATRAUMATIC, NORMAL INSPECTION, NORMOCEPHALIC - Eye Exam Eye Exam: EOMI, PERRL Pupil Exam: PERRL - ENT Exam ENT Exam: Mucous Membranes Moist, Normal Exam - Neck Exam Neck Exam: Full ROM, Normal Inspection. absent: Lymphadenopathy - Respiratory Exam Respiratory Exam: Clear to Ausculation Bilateral, NORMAL BREATHING PATTERN. absent: Wheezes - Cardiovascular Exam Cardiovascular Exam: REGULAR RHYTHM, +S1, +S2. absent: Murmur - GI/Abdominal Exam GI & Abdominal Exam: Soft, Normal Bowel Sounds. absent: Guarding, Rigid, Tenderness, Distended - Extremities Exam Extremities Exam: Full ROM, Normal Capillary Refill, Normal Inspection. absent: Joint Swelling, Pedal Edema - Back Exam Back Exam: NORMAL INSPECTION - Neurological Exam Neurological Exam: Alert, Awake, Oriented x3 - Psychiatric Exam Psychiatric exam: Normal Affect, Normal Mood - Skin Skin Exam: Dry, Intact, Normal Color, Warm Assessment and Plan - Assessment and Plan (Free Text) Assessment: 72 year old male with a PMH of decompensated EtOH cirrhosis c/b ascites and bleeding esophageal varices, h/o HBV, EtOH abuse, COPD and tobacco abuse, blindness and decreased hearing acuity who is admitted for cirrhotic ascites. Abd US/Doppler were negative for PVT. MELD score 15; Child Class B. Patient is a poor candidate for liver transplant given his baseline and psychosocial state. Plan: - Check cell count with differential and total protein of peritoneal fluid - patient should be on Furosemide 40 mg PO QD and Spironolactone 100 mg PO QD - Monitor BMP, Daily weights and I&O - diet advanced to low sat w/ fluid restriction <1.5L /day - Lactulose for suspected constipation, patient not obviously encephalopathic at this time - Patient previously refused colonoscopy evaluation due to noncompliance with bowel preparation, but would benefit from elective colonoscopy as outpatient Case was reviewed and discussed with attending, Dr. Oropeza <Deyanira Oropeza V - Last Filed: 10/15/18 00:06> Objective - Vital Signs/Intake and Output Vital Signs (last 24 hours): Temp Pulse Resp BP Pulse Ox 99.4 F 84 19 103/60 100 10/14/18 22:39 10/14/18 22:39 10/14/18 22:39 10/14/18 22:39 10/14/18 22:39 - Medications Medications: Current Medications Arformoterol Tartrate (Brovana) 15 mcg IH [id number] [facility] Last Admin: 10/14/18 07:44 Dose: 15 mcg Budesonide (Pulmicort Respules) 0.25 mg IH [id number] [facility] Last Admin: 10/14/18 07:44 Dose: 0.25 mg Dorzolamide/Timolol (Cosopt 2%-0.5% Opht) 1 drop OD BID [facility] Last Admin: 10/14/18 17:26 Dose: 1 drop Furosemide (Lasix) 40 mg PO DAILY [facility] Last Admin: 10/13/18 09:16 Dose: 40 mg Metronidazole (Flagyl) 500 mg in 100 mls @ 100 mls/hr IVPB Q8 [facility]; Protocol Last Admin: 10/14/18 21:07 Dose: 100 mls/hr Ceftriaxone Sodium (Rocephin 1 Gram Ivpb) 1 gm in 100 mls @ 100 mls/hr IVPB DAILY [facility]; Protocol Stop: 03/15/19 10:59 Last Admin: 10/14/18 11:01 Dose: 100 mls/hr Lactulose (Enulose) 30 gm PO BID [facility] Last Admin: 10/14/18 17:23 Dose: 30 gm Latanoprost (Xalatan Opht) 0 ml OD DAILY [facility] Last Admin: 10/14/18 11:01 Dose: 2.5 ml Nicotine (Nicoderm Cq) 1 patch TD DAILY [facility] Last Admin: 10/14/18 11:04 Dose: 1 patch Non-Formulary Medication (Nystatin [Nystatin Oral Susp]) 5 ml PO QID [facility] Last Admin: 10/14/18 21:08 Dose: Not Given Pantoprazole Sodium (Protonix Ec Tab) 40 mg PO 0600 [facility] Last Admin: 10/14/18 05:20 Dose: 40 mg Sertraline HCl (Zoloft) 25 mg PO DAILY [facility] Last Admin: 10/14/18 11:03 Dose: 25 mg Spironolactone (Aldactone) 100 mg PO DAILY [facility] Last Admin: 10/13/18 09:16 Dose: 100 mg - Labs Labs: 10/14/18 07:00 10/14/18 07:00 PT 16.1 SECONDS (9.4-12.5) H 10/12/18 01:40 INR 1.45 10/12/18 01:40 APTT 38.0 Seconds (26.9-38.3) 10/12/18 01:40 Attending/Attestation - Attestation I have personally seen and examined this patient.: Yes I have fully participated in the care of the patient.: Yes I have reviewed all pertinent clinical information, including history, physical exam and plan: Yes Notes (Text): This is an addendum to GI progress report dictated by the medical claims manager. The patient was seen and examined earlier. Medical records, lab studies, imagings were reviewed. Last 24 hours events reviewed. Agreed with the above treatment plan as outlined in resident 's notes with the addition of the following 10/15/18 00:06
[2018-10-14 07:22] LABS: HEMOGLOBIN 9.6 g/dL (14.0-18.0); MEAN CELL VOLUME 82.5 fl (80.0-105.0); MEAN CORPUSCULAR HEMOGLOBIN 26.2 pg (25.0-35.0); MEAN CORPUSCULAR HGB CONC 31.8 g/dl (31.0-37.0); PLATELET COUNT 143 10^3/uL (120.0-450.0); RBC 3.66 10^6/uL (3.5-6.1); RED CELL DISTRIBUTION WIDTH 19.4 % (11.5-14.5); WHITE BLOOD COUNT 9.4 10^3/uL (4.5-11.0)
[2018-10-14] MEDS: Arformoterol 15 mcg/2 ml Inh Sol IH SCH (07:44)
[2018-10-14] MEDS: Budesonide 0.25 mg/2 ml Inhal Susp UD IH SCH (07:44)
[2018-10-14 07:56] LABS: BLOOD UREA NITROGEN 12 mg/dL (7-21); CALCIUM 8.2 mg/dL (8.4-10.5); GFR NON-AFRICAN AMERICAN > 60
[2018-10-14] MEDS: NYSTATIN PO SCH ×4 (10:00→21:08)
[2018-10-14] MEDS: cefTRIAXone 1 gm 1 GM/100 ML BAG IVPB SCH (11:01)
[2018-10-14] MEDS: Dorzolamide 2%/Timolol 0.5% 100 DROP/10 ML BOTTLE OD SCH ×2 (11:01→17:26)
[2018-10-14] MEDS: Latanoprost 2.5 ml Opht Soln OD SCH (11:01)
--- NOTE | 2018-10-14 12:39 | PN ---
DATE: 10/14/2018 PULMONARY PROGRESS NOTE REFERRING PHYSICIAN: Evie Ponce MD SUBJECTIVE: The patient seen sitting up in bed. No acute distress. The patient is status post paracentesis yesterday where 2400 mL fluid was aspirated. The patient reports feeling well this morning, has occasional cough. No headache, rhinitis, shortness of breath, chest pain, abdominal pain, nausea, vomiting, diarrhea, leg pain, leg swelling reported. OBJECTIVE: GENERAL: No acute distress. VITAL SIGNS: Blood pressure 101/51, pulse 73, temperature 97.9, oxygen saturation 97% on nasal cannula. HEENT: Moist mucous membranes. NECK: Supple. No JVD. RESPIRATORY: Fair airflow bilaterally. CARDIOVASCULAR: S1, S2. ABDOMEN: Soft, nontender, no distention. EXTREMITIES: No bilateral lower extremity edema. NEUROLOGIC: Awake, alert and verbal. Follows commands. MEDICATIONS: Reviewed. Brovana 15 mcg every 12 hours, Pulmicort 0.25 mg every 12 hours, Rocephin 1 g daily, Cosopt twice a day, Lasix 40 mg daily, Dilaudid 0.25 mg IV push every 8 hours p.r.n., lactulose 30 g twice a day, Latanoprost daily, Flagyl 500 mg every 8 hours, nicotine patch transdermal daily, nystatin oral suspension 5 mL four times a day, Protonix 40 mg daily, Zoloft 25 mg daily, spironolactone on hold, Lasix on hold. LABORATORY DATA: Reviewed. WBC 9.4, RBC 3.66, hemoglobin 9.6, hematocrit 30.2, platelets 143. Sodium 135, potassium 3.8, chloride 100, carbon dioxide 28, anion gap 11, BUN 12, creatinine 0.6, GFR greater than 60, random glucose 102, calcium 8.2. Urinalysis shows urine ketones trace, urine bilirubin large. Peritoneal fluid shows wbc 402, rbc 3168. Microbiology: Blood cultures preliminary no growth after 48 hours. Peritoneal fluid Gram stain shows rare polymorphonuclear wbcs, no organisms seen. IMPRESSION AND PLAN: Chronic obstructive lung disease, cirrhosis of the liver, ascites, anemia, history of hepatitis B, history of esophageal varices, history of alcohol abuse, blindness, tobacco use, decreased hearing, history of hernia repair. The patient has history of noncompliance in the past, status post paracentesis yesterday. Continue inhaled bronchodilators, Nicoderm patch, smoking cessation. Continue sequential compression devices for deep vein thrombosis prophylaxis. The patient cannot be on chemical prophylaxis due to history of gastrointestinal bleed and anemia. Gastric prophylaxis. Continue antibiotic therapy. Continue gastrointestinal followup. We will restart diuretics in the next day or so. We will continue following BUN and creatinine. Diuretics currently on hold as patient just had high volume removed via paracentesis. We will continue to monitor the patient. The patient was seen and examined with Dr. Atkins. Discussed assessment and plan as described above. The patient was seen and examined with Garry Gutierrez, nurse practitioner. Discussed assessment and plan as described above. Thank you for this consult. We will follow with you. Garry Gutierrez APN Theodore Atkins MD
--- NOTE | 2018-10-14 12:59 | CP.PCM.APN ---
Subjective - Date & Time of Evaluation Date of Evaluation: 10/14/18 Time of Evaluation: 08:00 - Subjective Subjective: Pt seen and examined at bedside. In no acute distress. Denies abdominal pain, nausea or vomiting. Objective - Vital Signs/Intake and Output Vital Signs (last 24 hours): Temp Pulse Resp BP Pulse Ox 97.9 F 73 18 101/51 L 97 10/14/18 06:00 10/14/18 06:00 10/14/18 06:00 10/14/18 06:00 10/14/18 06:00 - Medications Medications: Current Medications Arformoterol Tartrate (Brovana) [id number] [facility] Last Admin: 10/14/18 07:44 Dose: 15 mcg Budesonide (Pulmicort Respules) 0.25 mg IH [id number] [facility] Last Admin: 10/14/18 07:44 Dose: 0.25 mg Dorzolamide/Timolol (Cosopt 2%-0.5% Opht) [address] [facility] Last Admin: 10/14/18 11:01 Dose: 1 drop Furosemide (Lasix) [address] [facility] Last Admin: 10/13/18 09:16 Dose: 40 mg Hydromorphone HCl (Dilaudid) 0.25 mg IVP Q8H PRN PRN Reason: Pain, Mild (1-3) Last Admin: 10/14/18 06:36 Dose: 0.25 mg Metronidazole (Flagyl) 500 mg in 100 mls @ 100 mls/hr IVPB Q8 [facility]; Protocol Last Admin: 10/14/18 05:20 Dose: 100 mls/hr Ceftriaxone Sodium (Rocephin 1 Gram Ivpb) 1 gm in 100 mls @ 100 mls/hr IVPB DAILY [facility]; Protocol Stop: 10/17/18 10:59 Last Admin: 10/14/18 11:01 Dose: 100 mls/hr Lactulose (Enulose) [address] [facility] Last Admin: 10/14/18 11:03 Dose: 30 gm Latanoprost (Xalatan Opht) [address] [facility] Last Admin: 10/14/18 11:01 Dose: 2.5 ml Nicotine (Nicoderm Cq) [address] [facility] Last Admin: 10/14/18 11:04 Dose: 1 patch Non-Formulary Medication (Nystatin [Nystatin Oral Susp]) [address] [facility] Last Admin: 10/14/18 10:00 Dose: Not Given Pantoprazole Sodium (Protonix Ec Tab) [address] [facility] Last Admin: 10/14/18 05:20 Dose: 40 mg Sertraline HCl (Zoloft) [address] [facility] Last Admin: 10/14/18 11:03 Dose: 25 mg Spironolactone (Aldactone) [address] [facility] Last Admin: 10/13/18 09:16 Dose: 100 mg - Labs Labs: 10/14/18 07:00 10/14/18 07:00 PT 16.1 SECONDS (9.4-12.5) H 10/12/18 01:40 INR 1.45 10/12/18 01:40 APTT 38.0 Seconds (26.9-38.3) 10/12/18 01:40 - Constitutional Appears: No Acute Distress - Respiratory Exam Respiratory Exam: Clear to Ausculation Bilateral, NORMAL BREATHING PATTERN - Cardiovascular Exam Cardiovascular Exam: REGULAR RHYTHM - GI/Abdominal Exam GI & Abdominal Exam: Soft, Normal Bowel Sounds Additional comments: mildly distended - Rectal Exam Rectal Exam: Deferred - Neurological Exam Neurological Exam: Alert, Awake, Oriented x3 Assessment and Plan - Assessment and Plan (Free Text) Assessment: Pt is a 72 y.o. male who was admitted for upper abdominal pain, nausea and vomiting. He is s/p paracentesis yesterday. Plan: D/W GI, stated pt is cleared for dc from GI standpoint. D/W Pulm, concern about hepatorenal syndrome post paracentesis and would like to monitor pt for another 24h Spoke with PMD and will monitor pt for now. Possible dc home in AM if remains stable. Meds per MAR Will continue to follow
--- NOTE | 2018-10-14 20:49 | PN ---
DATE: 10/14/2018 SUBJECTIVE: The patient is a 72-year-old male. Looking comfortable. Abdominal pain is better. No nausea or vomiting. No hematuria. No hematochezia. No headache. No dizziness. No chest pain or palpitation. Status post paracentesis. PHYSICAL EXAMINATION: VITAL SIGNS: Blood pressure 110/50, pulse 70, temperature 98, oxygen saturation 97%. HEENT: Head is normocephalic and atraumatic. Eyes: PERRLA. Extraocular muscles intact. Conjunctivae clear. Nose patent. Mucous membrane moist. NECK: Supple. No carotid bruits. No JVD or thyromegaly. CHEST: Bilaterally symmetrical. HEART: S1 and S2, positive. LUNGS: Clear to auscultation. ABDOMEN: Soft. Bowel sounds present. No organomegaly. EXTREMITIES: No edema. No cyanosis. NEUROLOGIC: The patient is awake and alert. Follows simple commands. MEDICATIONS: Brovana, Pulmicort, Rocephin, Lasix, Dilaudid, lactulose, Flagyl, Nicoderm patch, nystatin suspension, Protonix, Lovenox, and spirolactone. LABORATORY DATA: White blood cells 9.4, hemoglobin 9.6, hematocrit 30.2 and platelets 142. Sodium 135, potassium 3.8, BUN 12, creatinine 0.6. ASSESSMENT AND PLAN: Mr. Esteban Carrion is a 72-year-old male with multiple medical problems, history of ethanol abuse, actively smoking, chronic obstructive pulmonary disease, cirrhosis of the liver, ascites, anemia, history of hepatitis B, history of esophageal varices, history of alcohol abuse, blind, history of hernia repair, noncompliance, not seeing any physician as outpatient. I doubt that he is using medicines at home. Gastrointestinal prophylaxis, out of bed, physical therapy. Discussion done with nursing staff Evie Ponce MD MTDD
[2018-10-15] MEDS: Pantoprazole 40 mg EC Tab PO SCH (05:04)
[2018-10-15 07:04] LABS: BASO # 0.03 K/mm3 (0.0-2.0); BASO % 0.3 % (0.0-3.0); EOS # 0.4 (0.0-0.7); EOS % 4.4 % (1.5-5.0); HEMOGLOBIN 9.6 g/dL (14.0-18.0); LYMPH # 1.6 (1.2-3.4); LYMPH % 17.4 % (22.0-35.0); MEAN CELL VOLUME 81.6 fl (80.0-105.0); MEAN CORPUSCULAR HEMOGLOBIN 26.3 pg (25.0-35.0); MEAN CORPUSCULAR HGB CONC 32.2 g/dl (31.0-37.0); MONO # 0.8 (0.1-0.6); MONO % 8.4 % (1.0-6.0); PLATELET COUNT 159 10^3/uL (120.0-450.0); RBC 3.65 10^6/uL (3.5-6.1); RED CELL DISTRIBUTION WIDTH 19.2 % (11.5-14.5); WHITE BLOOD COUNT 8.9 10^3/uL (4.5-11.0)
[2018-10-15 07:18] LABS: ALB/GLOB RATIO 0.7 (1.1-1.8); ALBUMIN 2.8 g/dL (3.0-4.8); ALT/SGPT 38 U/L (7-56); AST/SGOT 68 U/L (17-59); BLOOD UREA NITROGEN 12 mg/dL (7-21); CALCIUM 8.5 mg/dL (8.4-10.5); GFR NON-AFRICAN AMERICAN > 60
[2018-10-15] MEDS: Arformoterol 15 mcg/2 ml Inh Sol IH SCH (07:32)
[2018-10-15] MEDS: Budesonide 0.25 mg/2 ml Inhal Susp UD IH SCH (07:33)
[2018-10-15] MEDS: Latanoprost 2.5 ml Opht Soln OD SCH (09:34)
[2018-10-15] MEDS: Dorzolamide 2%/Timolol 0.5% 100 DROP/10 ML BOTTLE OD SCH ×2 (09:34→18:02)
[2018-10-15] MEDS: NYSTATIN PO SCH ×2 (09:34→18:02)
[2018-10-15] MEDS ORDERED: Cefpodoxime (Vantin) 200 mg Tab PO SCH (10:00)
[2018-10-15 14:25] VITALS: O2SAT 100
[2018-10-15 14:26] VITALS: BP 114/72; PULSE 72; RESP 18; TEMP 98.6
--- NOTE | 2018-10-15 14:45 | CP.PCM.PN ---
<Lucas Mancia - Last Filed: 10/15/18 18:22> Subjective - Date & Time of Evaluation Date of Evaluation: 10/15/18 Time of Evaluation: 14:42 - Subjective Subjective: patient had no acute events overnight. He is tolerating diet. Denies abdominal pain. Primary team is suggesting discharge early tomorrow a.m. Objective - Vital Signs/Intake and Output Vital Signs (last 24 hours): Temp Pulse Resp BP Pulse Ox 98.6 F 72 18 114/72 100 10/15/18 14:00 10/15/18 14:00 10/15/18 14:00 10/15/18 14:00 10/15/18 14:00 Intake and Output: 10/15/18 10/15/18 06:59 18:59 Intake Total 240 360 Output Total 300 Balance -60 360 - Medications Medications: Current Medications Arformoterol Tartrate (Brovana) 15 mcg IH [id number] [facility] Last Admin: 10/15/18 07:32 Dose: 15 mcg Budesonide (Pulmicort Respules) 0.25 mg IH [id number] [facility] Last Admin: 10/15/18 07:33 Dose: 0.25 mg Cefpodoxime Proxetil (Vantin) 200 mg PO Q12 [facility] Last Admin: 10/15/18 09:33 Dose: 200 mg Dorzolamide/Timolol (Cosopt 2%-0.5% Opht) 1 drop OD BID [facility] Last Admin: 10/15/18 09:34 Dose: 1 drop Furosemide (Lasix) 40 mg PO DAILY [facility] Last Admin: 10/15/18 09:34 Dose: 40 mg Lactulose (Enulose) 30 gm PO BID [facility] Last Admin: 10/15/18 09:33 Dose: 30 gm Latanoprost (Xalatan Opht) 0 ml OD DAILY [facility] Last Admin: 10/15/18 09:34 Dose: 2.5 ml Metronidazole (Flagyl) 500 mg PO Q8 [facility] Last Admin: 10/15/18 05:04 Dose: 500 mg Nicotine (Nicoderm Cq) 1 patch TD DAILY [facility] Last Admin: 10/15/18 09:34 Dose: 1 patch Non-Formulary Medication (Nystatin [Nystatin Oral Susp]) 5 ml PO QID [facility] Last Admin: 10/15/18 09:34 Dose: Not Given Pantoprazole Sodium (Protonix Ec Tab) 40 mg PO 0600 [facility] Last Admin: 10/15/18 05:04 Dose: 40 mg Sertraline HCl (Zoloft) 25 mg PO DAILY [facility] Last Admin: 10/15/18 09:33 Dose: 25 mg Spironolactone (Aldactone) 100 mg PO DAILY [facility] Last Admin: 10/15/18 09:34 Dose: 100 mg - Labs Labs: 10/15/18 06:30 10/15/18 06:30 PT 16.1 SECONDS (9.4-12.5) H 10/12/18 01:40 INR 1.45 10/12/18 01:40 APTT 38.0 Seconds (26.9-38.3) 10/12/18 01:40 - Constitutional Appears: Non-toxic, No Acute Distress, Chronically Ill - Head Exam Head Exam: ATRAUMATIC, NORMAL INSPECTION - Respiratory Exam Respiratory Exam: Clear to Ausculation Bilateral, NORMAL BREATHING PATTERN - Cardiovascular Exam Cardiovascular Exam: REGULAR RHYTHM, +S1, +S2 - GI/Abdominal Exam GI & Abdominal Exam: Soft, Normal Bowel Sounds. absent: Tenderness - Extremities Exam Extremities Exam: Normal Inspection. absent: Pedal Edema - Neurological Exam Neurological Exam: Alert, Awake, Oriented x3 - Psychiatric Exam Psychiatric exam: Normal Affect, Normal Mood Assessment and Plan - Assessment and Plan (Free Text) Assessment: 72 year old male with a PMH of decompensated EtOH cirrhosis c/b ascites and bleeding esophageal varices, h/o HBV, EtOH abuse, COPD and tobacco abuse, blindness and decreased hearing acuity who is admitted for cirrhotic ascites. Abd US/Doppler were negative for PVT. MELD score 15; Child Class B. Patient is a poor candidate for liver transplant given his baseline and psychosocial state. Plan: - PMNs of ascitic fluid less than 250. No signs of SBP. - patient should be on Furosemide 40 mg PO QD and Spironolactone 100 mg PO QD. kidney function is stable - Monitor BMP, Daily weights and I&O - diet advanced to low sat w/ fluid restriction <1.5L /day - Lactulose for suspected constipation, patient not obviously encephalopathic at this time. - Patient previously refused colonoscopy evaluation due to noncompliance with bowel preparation, but would benefit from elective colonoscopy as outpatient Case was reviewed and discussed with attending, Dr. Sandip <Sandip,Kovil V - Last Filed: 10/16/18 00:22> Objective - Vital Signs/Intake and Output Vital Signs (last 24 hours): Temp Pulse Resp BP Pulse Ox 98.6 F 72 18 114/72 100 10/15/18 14:00 10/15/18 14:00 10/15/18 14:00 10/15/18 14:00 10/15/18 14:00 Intake and Output: 10/15/18 10/16/18 18:59 06:59 Intake Total 360 Balance 360 - Labs Labs: 10/15/18 06:30 10/15/18 06:30 PT 16.1 SECONDS (9.4-12.5) H 10/12/18 01:40 INR 1.45 10/12/18 01:40 APTT 38.0 Seconds (26.9-38.3) 10/12/18 01:40 Attending/Attestation - Attestation Notes (Text): This is an addendum to GI progress report dictated by the GI Fellow. The patient was seen and examined earlier. Medical records, lab studies, imagings were reviewed. Last 24 hours events reviewed. Agreed with the above treatment plan as outlined in GI Fellow 's notes with the addition of the following Tolerating diet Status post paracentesis We will consider colonoscopy the patient is agreeable as an outpatient presently is refusing Patient is a poorly compliant. Patient will need a periodic paracentesis Continue lactulose 10/16/18 00:17
--- NOTE | 2018-10-15 16:15 | PN ---
DATE: 10/15/2018 PULMONARY PROGRESS NOTE REFERRING PHYSICIAN: Evie Ponce MD SUBJECTIVE: The patient is seen lying in bed. No acute distress. No overnight events reported. The patient reports feeling well today. No headache, rhinitis, cough, shortness of breath, chest pain, abdominal pain, nausea, vomiting, diarrhea, leg pain or leg swelling reported. OBJECTIVE: GENERAL: No acute distress. VITAL SIGNS: Blood pressure 114/72, pulse 72, temperature 98.6 and oxygen saturation 100%. HEENT: Moist mucous membranes. NECK: Supple. No JVD. RESPIRATORY: Fair airflow bilaterally. CARDIOVASCULAR: S1 and S2. ABDOMEN: Soft and nontender. No distention. No organomegaly. EXTREMITIES: No bilateral lower extremity edema. NEUROLOGIC: Awake, alert and verbal. Follows commands. The patient is hard of hearing. MEDICATIONS: Reviewed. Brovana 15 mcg every 12 hours, Pulmicort 0.25 mg every 12 hours, Vantin 200 mg every 12 hours, Cosopt 1 drop twice a day, Lasix 40 mg daily, Lactulose 30 g twice a day, Latanoprost daily, Flagyl 500 mg every 8 hours, nicotine patch transdermal daily, nystatin oral suspension four times a day, Protonix 40 mg daily, Zoloft 25 mg daily and spironolactone 100 mg daily. LABORATORY DATA: Reviewed. WBC 8.9, RBC 3.65, hemoglobin 9.6, hematocrit 29.8 and platelets 159. Sodium 134, potassium 4, chloride 100, carbon dioxide 27, anion gap 11, BUN 12, creatinine 0.6, GFR greater than 60, random glucose 94, calcium 8.5., total bilirubin 3.6, AST 68, ALT 38, alkaline phosphatase 297, total protein, albumin 2.9, globulin 4.0 and albumin-globulin ratio 0.7. Peritoneal fluid shows no growth after 2 days. Blood cultures preliminary shows no growth after 3 days. IMPRESSION AND PLAN: Chronic obstructive lung disease, cirrhosis of the liver, ascites, anemia, history of hepatitis B, history of esophageal varices, history of alcohol abuse, blindness, tobacco use, decreased hearing, history of hernia repair. The patient has history of noncompliance in the past. The patient has status post paracentesis. Continue inhaled bronchodilators and smoking cessation. Sequential compression devices to bilateral lower extremity for deep vein thrombosis prophylaxis. He cannot be on chemical prophylaxis due to history of gastrointestinal bleed and anemia. Continue gastric prophylaxis and antibiotic therapy. The patient diuretics were restarted. Need to monitor BUN and creatinine closely. The patient would benefit from physical therapy. Out of bed to chair. The patient was seen and examined with Dr. Atkins. Discussed assessment and plan as described above. The patient was seen and examined with Garry Gutierrez, nurse practitioner. Discussed assessment and plan as described above. Thank you for this consult. We will follow with you. Garyr Gutierrez APN Theodore Atkins MD JULIET
== END 2018-10-15 18:26 | disposition home or self-care (01) | DRG 433 ==
LOC: ED 00:34 → ERH 04:24 → 5RNO 07:09 → OBSVTOIN 10-13 14:58
PROVIDERS: ADMIT Internal Medicine; ATTEND Internal Medicine
PROC: 0W9G3ZX Drainage of Peritoneal Cavity, Percutaneous Approach, Diagnostic (ICD-10-PCS; principal; 2018-10-13 10:00)
DX: K70.31 Alcoholic cirrhosis of liver with ascites (principal); I85.10 Secondary esophageal varices without bleeding; K80.20 Calculus of gallbladder without cholecystitis without obstruction; F10.10 Alcohol abuse, uncomplicated; I25.10 Atherosclerotic heart disease of native coronary artery without angina pectoris; I10 Essential (primary) hypertension; J44.9 Chronic obstructive pulmonary disease, unspecified; G47.33 Obstructive sleep apnea (adult) (pediatric); D64.9 Anemia, unspecified; D69.6 Thrombocytopenia, unspecified; H40.9 Unspecified glaucoma; K21.9 Gastro-esophageal reflux disease without esophagitis; D72.829 Elevated white blood cell count, unspecified; F32.9 Major depressive disorder, single episode, unspecified; H91.8X2 Other specified hearing loss, left ear; H54.7 Unspecified visual loss; F17.200 Nicotine dependence, unspecified, uncomplicated; R19.7 Diarrhea, unspecified; K59.00 Constipation, unspecified; Z91.19 Patient's noncompliance with other medical treatment and regimen; Z86.19 Personal history of other infectious and parasitic diseases; Z86.73 Personal history of transient ischemic attack (TIA), and cerebral infarction without residual deficits

== ENCOUNTER 2018-11-01 12:14 | Inpatient (IN) | payer MEDICARE, MEDICAID ==
[2018-11-01] MEDS ORDERED: Sodium Chloride 0.9% 1,000 ML IV STA ×2 (12:24→17:12)
[2018-11-01 13:12] LABS: VENOUS BLOOD GAS BASE EXCESS 0.8 mmol/L (0.0-2.0); VENOUS BLOOD GAS PO2 206 mm/Hg (30-55); VENOUS BLOOD PH 7.46 (7.32-7.43)
[2018-11-01 13:13] LABS: ALB/GLOB RATIO 0.7 (1.1-1.8); ALBUMIN 3.7 g/dL (3.0-4.8); ALT/SGPT 31 U/L (7-56); AST/SGOT 80 U/L (17-59); BLOOD UREA NITROGEN 38 mg/dL (7-21); GFR NON-AFRICAN AMERICAN > 60; LIPASE 132 U/L (23-300)
[2018-11-01 13:30] LABS: BASO # 0.02 K/mm3 (0.0-2.0); BASO % 0.1 % (0.0-3.0); EOS # 0.1 (0.0-0.7); EOS % 0.4 % (1.5-5.0); HEMOGLOBIN 12.6 g/dL (14.0-18.0); LYMPH % 13.7 % (22.0-35.0); MEAN CELL VOLUME 83.4 fl (80.0-105.0); MEAN CORPUSCULAR HEMOGLOBIN 27.6 pg (25.0-35.0); MEAN CORPUSCULAR HGB CONC 33.1 g/dl (31.0-37.0); MONO # 1.1 (0.1-0.6); MONO % 7.7 % (1.0-6.0); PLATELET COUNT 204 10^3/uL (120.0-450.0); RBC 4.57 10^6/uL (3.5-6.1); RED CELL DISTRIBUTION WIDTH 19.2 % (11.5-14.5); WHITE BLOOD COUNT 14.3 10^3/uL (4.5-11.0)
[2018-11-01] MEDS ORDERED: Iohexol 350 MG/100 ML VIAL ONE (13:30)
[2018-11-01 13:33] LABS: INR 1.19; PARTIAL THROMBOPLASTIN TIME 35.7 Seconds (26.9-38.3); PROTHROMBIN TIME 13.4 SECONDS (9.4-12.5)
[2018-11-01] MEDS ORDERED: Piperacill/Tazo 4.5gm in NS 4.5 GM/100 ML BAG IVPB STA (13:48)
[2018-11-01] MEDS ORDERED: Vancomycin 1gm in NS 250ml 1 GM/250 ML BAG IVPB STA (13:48)
[2018-11-01] MEDS ORDERED: Sodium Chloride 0.9% 1,000 ML IV ONE (13:51)
--- NOTE | 2018-11-01 14:19 | CT ---
Date of service: 11/01/2018 PROCEDURE: CT Abdomen and Pelvis with contrast HISTORY: vomiting with blood in stool COMPARISON: 10/12/2018 TECHNIQUE: Contrast dose: 100 cc of Omni 350 Radiation dose: Total exam DLP = 206.8 mGy-cm. This CT exam was performed using one or more of the following dose reduction techniques: Automated exposure control, adjustment of the mA and/or kV according to patient size, and/or use of iterative reconstruction technique. FINDINGS: LOWER THORAX: Unremarkable. LIVER: Unremarkable. No gross lesion or ductal dilatation. GALLBLADDER AND BILE DUCTS: Multiple gallstones PANCREAS: Unremarkable. No gross lesion or ductal dilatation. SPLEEN: Unremarkable. ADRENALS: Unremarkable. No mass. KIDNEYS AND URETERS: Unremarkable. No hydronephrosis. No solid mass. VASCULATURE: Unremarkable. No aortic aneurysm. Aortic calcification BOWEL: Unremarkable. No obstruction. No gross mural thickening. APPENDIX: Normal appendix. PERITONEUM: There is a small amount of ascites surrounding the liver LYMPH NODES: Unremarkable. No enlarged lymph nodes. BLADDER: Unremarkable. REPRODUCTIVE: Hysterectomy BONES: No acute fracture. OTHER FINDINGS: None. IMPRESSION: No acute intra-abdominal findings
--- NOTE | 2018-11-01 14:35 | RAD ---
Date of service: 11/01/2018 HISTORY: r/o infiltrate COMPARISON: 10/12/2018 TECHNIQUE: 1 view obtained. FINDINGS: LUNGS: No active pulmonary disease. PLEURA: No significant pleural effusion identified, no pneumothorax apparent. CARDIOVASCULAR: Aortic calcification Normal cardiac size. No pulmonary vascular congestion. OSSEOUS STRUCTURES: No significant abnormalities. VISUALIZED UPPER ABDOMEN: Normal. OTHER FINDINGS: None. IMPRESSION: No active disease.
[2018-11-01 16:34] LABS: VENOUS BLOOD GAS BASE EXCESS 1.3 mmol/L (0.0-2.0); VENOUS BLOOD GAS PO2 200 mm/Hg (30-55); VENOUS BLOOD PH 7.42 (7.32-7.43)
--- NOTE | 2018-11-01 17:29 | PCM.SEPTIC ---
Sepsis Progress Note - Reassessment Type Date of Evaluation: 11/01/18 Time of Evaluation: 17:28 Reassessment Type: Non-invasive reassessment - Non Invasive Reassessment Were the most recent vital sign reviewed: Yes Vital Sign (Latest): Temp Pulse Resp BP Pulse Ox 98.2 F 88 18 122/73 97 11/01/18 14:20 11/01/18 15:30 11/01/18 15:30 11/01/18 15:30 11/01/18 15:30 Cardiovascular: Yes: Regular Rate, Rhythm Respiratory: Yes: Normal Breath Sounds. No: Rales, Rhonchi, Stridor, Wheezing, Respiratory Distress Capillary Refill: Normal (Less than 2 sec) Pulses: Normal Radial, Normal Dorsalis Pedis, Normal Posterior Tibialis Skin: Normal Color, Warm, Dry
[2018-11-01 17:33] LABS: PH,URINE 6.5 (4.7-8.0); URINE BILIRUBIN NEGATIVE (NEGATIVE); URINE BLOOD NEGATIVE (NEGATIVE); URINE GLUCOSE (UA) NEGATIVE (NEGATIVE); URINE LEUKOCYTE ESTERASE NEGATIVE Leu/uL (NEGATIVE); URINE PROTEIN TRACE mg/dL (<30 mg/dL)
[2018-11-01 17:34] LABS: URINE APPEARANCE CLEAR (CLEAR); URINE COLOR YELLOW (YELLOW)
[2018-11-01 17:37] LABS: URINE EPITHELIAL CELLS 0 - 2 /hpf (0-5); URINE RBC 0 - 2 /hpf (0-2)
--- NOTE | 2018-11-01 18:33 | CARD ---
APPROVED REPORT Date of service: 11/01/2018 EKG Measurement Heart [id number] 168P [id number] <Conclusion> Normal sinus rhythm Left axis deviation Abnormal ECG
[2018-11-01 18:39] VITALS: BMI 16.2
--- NOTE | 2018-11-01 19:31 | ED PDOC ---
Arrival/HPI - General Chief Complaint: GI Problem Historian: Family, EMS - History of Present Illness Narrative History of Present Illness (Text): 11/01/18 19:32 A 72 year old male, whose past medical history includes hypertension, COPD, CVA, blind, deafness (to left ear), brought in by EMS to the emergency department for bloody stool since yesterday. Patient's family reported patient was vomiting yesterday and earlier today. They mention also patient experiencing decreased PO intake. HPI and ROS limited due to patient's mental status. Past Medical History - Provider Review Nursing Documentation Reviewed: Yes - Infectious Disease Hx of Infectious Diseases: None - Tetanus Immunization Tetanus Immunization: Unknown - Past Medical History Past Medical History: No Previous - Cardiac Hx Cardiac Disorders: Yes (CAD) Hx Hypertension: Yes - Pulmonary Hx Chronic Obstructive Pulmonary Disease (COPD): Yes - Neurological HX Cerebrovascular Accident: Yes - HEENT Hx HEENT Disorder: Yes Hx Blind: Yes Hx Cataracts: Yes (both eyes) Hx Deafness: Yes (left ear) Hx Glaucoma: Yes (left eye) - Renal Hx Renal Disorder: No - Endocrine/Metabolic Hx Endocrine Disorders: No - Hematological/Oncological Hx Blood Disorders: No Hx Cirrhosis: Yes - Integumentary Hx Dermatological Disorder: No - Musculoskeletal/Rheumatological Hx Falls: No - Gastrointestinal Hx Gastrointestinal Disorders: Yes Other/Comment: GI Bleed; Esophageal varices - Genitourinary/Gynecological Hx Genitourinary Disorders: No - Psychiatric Hx Psychophysiologic Disorder: Yes Hx Depression: Yes Hx Psychosis: Yes Hx Substance Use: No - Past Surgical History Past Surgical History: No Previous - Surgical History Hx Orthopedic Surgery: Yes (l hip fx sx 10/20/16) Other/Comment: us guided paracenthesis 06/23/14. hernia repair 04/2018 - Anesthesia Hx Anesthesia: Yes Hx Anesthesia Reactions: No Hx Malignant Hyperthermia: No - Suicidal Assessment Plan: No Suicide Risk Precautions: Close Observation Family/Social History - Physician Review Nursing Documentation Reviewed: Yes Family/Social History: No Known Family HX Smoking Status: Former Smoker Hx Alcohol Use: Yes (former) Hx Substance Use: No Hx Substance Use Treatment: No Allergies/Home Meds Allergies/Adverse Reactions: Allergies No Known Allergies Allergy (Verified 11/01/18 12:19) Home Medications: Home Meds Medication Instructions Recorded Confirmed Dorzolamide 2%/Timolol 0.5% 1 drop BOTHEYES BID 01/15/18 11/01/18 [Cosopt 2%-0.5% Opht] Latanoprost [Xalatan] 1 drop BOTHEYES DAILY 01/15/18 11/01/18 Sertraline [Zoloft] 1 tab PO DAILY 01/15/18 11/01/18 Review of Systems - Review of Systems Systems not reviewed;Unavailable: Altered Mental Status Physical Exam Vital Signs Reviewed: Yes Vital Signs Temp Pulse Resp BP Pulse Ox 11/01/18 17:00 97.9 F 80 18 124/61 96 11/01/18 15:30 88 18 122/73 97 11/01/18 14:20 98.2 F 94 H 18 116/61 97 11/01/18 13:10 90 18 112/65 97 11/01/18 12:14 97 F L 95 H 18 130/75 99 Temperature: Afebrile Blood Pressure: Normal Pulse: Regular Respiratory Rate: Normal Appearance: Positive for: Other Pain Distress: None Mental Status: Positive for: Confused. No: Alert and Oriented X 3 (alert) - Systems Exam Head: Present: Atraumatic, Normocephalic Pupils: Present: PERRL Extroacular Muscles: Present: EOMI Conjunctiva: Present: Normal Neck: Present: Normal Range of Motion Respiratory/Chest: Present: Clear to Auscultation, Good Air Exchange. No: Respiratory Distress, Accessory Muscle Use Cardiovascular: Present: Regular Rate and Rhythm, Normal S1, S2. No: Murmurs Abdomen: Present: Normal Bowel Sounds. No: Tenderness, Distention, Peritoneal Signs Rectal: Present: Other (positive guiaiac) Back: Present: Normal Inspection Upper Extremity: Present: Normal Inspection. No: Cyanosis, Edema Lower Extremity: Present: Normal Inspection. No: Edema Neurological: Present: GCS=15, CN II-XII Intact, Speech Normal Skin: Present: Warm, Dry, Normal Color. No: Rashes Psychiatric: Present: Alert. No: Oriented x 3 Medical Decision Making ED Course and Treatment: 11/01/18 19:35 Impression: 72 year old male with bloody stool and decreased PO intake. Plan: -- Labs -- Abd/Pelvis CT -- Venous Blood Gas -- Urinalysis -- Urine Culture -- Chest X-ray -- Reassess and disposition Progress Notes: 11/01/2018 13:30 Abd/Pelvis CT IMPRESSION: No acute intra-abdominal findings. Dictator: Won Aguirre MD 11/01/2018 13:30 Chest X-ray IMPRESSION: No active disease. Dictator: Won Aguirre MD 11/01/18 14:[address] Ponce, who accepts patient under her service. - Lab Interpretations Lab Results: pO2 200 mm/Hg (30-55) H 11/01/18 15:30 VBG pH 7.42 (7.32-7.43) 11/01/18 15:30 VBG pCO2 40.0 (40-60) 11/01/18 15:30 VBG HCO3 25.9 mmol/l (21-28) 11/01/18 15:30 VBG Total CO2 27.1 mmol.L (22-28) 11/01/18 15:30 VBG O2 Sat (Calc) 100.2 % (40-65) H 11/01/18 15:30 VBG Base Excess 1.3 mmol/L (0.0-2.0) 11/01/18 15:30 VBG Potassium 4.6 mmol/L (3.6-5.2) 11/01/18 15:30 Sodium 139.0 mmol/L (132-148) 11/01/18 15:30 Chloride 104.0 mmol/L (98-107) 11/01/18 15:30 Glucose 96 mg/dl (75-110) 11/01/18 15:30 Lactate 3.1 mmol/L (0.7-2.1) H 11/01/18 15:30 FiO2 21.0 % 11/01/18 15:30 Crit Value Called To Alyse landaverde 11/01/18 15:30 Crit Value Called By Cait 11/01/18 15:30 Blood Gas Notified Time 1634 11/01/18 15:30 PT 13.4 SECONDS (9.4-12.5) H 11/01/18 12:50 INR 1.19 11/01/18 12:50 APTT 35.7 Seconds (26.9-38.3) 11/01/18 12:50 Total Bilirubin 1.9 mg/dL (0.2-1.3) H 11/01/18 12:50 AST 80 U/L (17-59) H 11/01/18 12:50 ALT 31 U/L (7-56) 11/01/18 12:50 Alkaline Phosphatase 343 U/L (38-126) H 11/01/18 12:50 Total Protein 8.9 g/dL (5.8-8.3) H 11/01/18 12:50 Albumin 3.7 g/dL (3.0-4.8) 11/01/18 12:50 Globulin 5.2 gm/dL 11/01/18 12:50 Albumin/Globulin Ratio 0.7 (1.1-1.8) L 11/01/18 12:50 Lipase 132 U/L (23-300) 11/01/18 12:50 Urine Color Yellow (YELLOW) 11/01/18 17:10 Urine Appearance Clear (CLEAR) 11/01/18 17:10 Urine pH 6.5 (4.7-8.0) 11/01/18 17:10 Ur Specific [place] 1.015 (1.005-1.035) 11/01/18 17:10 Urine Protein Trace mg/dL (<30 mg/dL) H 11/01/18 17:10 Urine Glucose (UA) Negative mg/dL (NEGATIVE) 11/01/18 17:10 Urine Ketones Negative mg/dL (NEGATIVE) 11/01/18 17:10 Urine Blood Negative (NEGATIVE) 11/01/18 17:10 Urine Nitrate Negative (NEGATIVE) 11/01/18 17:10 Urine Bilirubin Negative (NEGATIVE) 11/01/18 17:10 Urine Urobilinogen 1.0 E.U./dL (<1 E.U./dL) H 11/01/18 17:10 Ur Leukocyte Esterase Negative Vika/uL (NEGATIVE) 11/01/18 17:10 Urine RBC 0 - 2 /hpf (0-2) 11/01/18 17:10 Urine WBC None /hpf (0-6) 11/01/18 17:10 Ur Epithelial Cells 0 - 2 /hpf (0-5) 11/01/18 17:10 - RAD Interpretation Radiology Orders: 11/01/18 CHEST PORTABLE [RAD] Stat 11/01/18 12:51 ABD & PELVIS IV CONTRAST ONLY [CT] Stat - Medication Orders Current Medication Orders: Sodium Chloride (Sodium Chloride 0.9%) 1,000 mls @ 100 mls/hr IV .Q10H STA Stop: 11/01/18 22:23 Last Admin: 11/01/18 12:46 Dose: 100 mls/hr eMAR Start Stop Document 11/01/18 12:46 LINDA (Rec: 11/01/18 12:47 LINDA [id number]) Intravenous Solution Start Date 11/01/18 Start Time 12:47 End Date 11/01/18 End time 14:00 Total Infusion Time 73 Discontinued Medications Sodium Chloride (Sodium Chloride 0.9%) 1,000 mls @ 250 mls/hr IV .Q4H ONE Stop: 11/01/18 17:50 Last Admin: 11/01/18 14:08 Dose: 250 mls/hr eMAR Start Stop Document 11/01/18 14:08 LINDA (Rec: 11/01/18 14:08 LINDA [id number]) Intravenous Solution Start Date 11/01/18 Start Time 14:00 Vancomycin HCl (Vancomycin 1gm) 1 gm in 250 mls @ 167 mls/hr IVPB STAT STA; Protocol Stop: 11/01/18 15:17 Last Admin: 11/01/18 15:10 Dose: 167 mls/hr eMAR Start Stop Document 11/01/18 15:10 LINDA (Rec: 11/01/18 15:10 LINDA [id number]) Intravenous Solution Start Date 11/01/18 Start Time 15:10 End Date 11/01/18 End time 16:40 Total Infusion Time 90 Piperacillin Sod/Tazobactam Sod (Zosyn 4.5 Gm In Ns 100ml) 4.5 gm in 100 mls @ 200 mls/hr IVPB STAT STA; Protocol Stop: 11/01/18 14:17 Last Admin: 11/01/18 14:09 Dose: 200 mls/hr eMAR Start Stop Document 11/01/18 14:09 LINDA (Rec: 11/01/18 14:10 LINDA [id number]) Intravenous Solution Start Date 11/01/18 Start Time 14:09 End Date 11/01/18 End time 14:39 Total Infusion Time 30 Sodium Chloride (Sodium Chloride 0.9%) 1,000 mls @ 999 mls/hr IV .Q1H1M STA Stop: 03/30/19 18:12 Last Admin: 11/01/18 17:16 Dose: 999 mls/hr eMAR Start Stop Document 11/01/18 17:16 LINDA (Rec: 11/01/18 17:16 LINDA [id number]) Intravenous Solution Start Date 11/01/18 Start Time 16:45 End Date 11/01/18 End time 17:45 Total Infusion Time 60 Lactulose (Enulose) 20 gm PO ONCE STA Stop: 11/01/18 14:35 Last Admin: 11/01/18 15:10 Dose: 20 gm Ondansetron HCl (Zofran Inj) 4 mg IVP STAT STA Stop: 11/01/18 12:25 Last Admin: 11/01/18 12:48 Dose: 4 mg IVP Administration Document 11/01/18 12:48 LINDA (Rec: 11/01/18 12:48 LINDA [id number]) Charges for Administration # of IVP Administrations 1 Pantoprazole Sodium (Protonix Inj) 40 mg IVP STAT STA Stop: 11/01/18 12:25 Last Admin: 11/01/18 12:47 Dose: 40 mg IVP Administration Document 11/01/18 12:47 LINDA (Rec: 11/01/18 12:47 [facility] [id number]) Charges for Administration # of IVP Administrations 1 - Scribe Statement The provider has reviewed the documentation as recorded by the Vincent Brown Provider Scribe Attestation: All medical record entries made by the Scribe were at my direction and personally dictated by me. I have reviewed the chart and agree that the record accurately reflects my personal performance of the history, physical exam, medical decision making, and the department course for this patient. I have also personally directed, reviewed, and agree with the discharge instructions and disposition. Disposition/Present on Arrival - Present on Arrival Any Indicators Present on Arrival: No History of DVT/PE: No History of Uncontrolled Diabetes: No Urinary Catheter: No History of Decub. Ulcer: No History Surgical Site Infection Following: None - Disposition Have Diagnosis and Disposition been Completed?: Yes Diagnosis: GI bleed, Sepsis Disposition: HOSPITALIZED Disposition Time: 14:25 Condition: FAIR
[2018-11-01 20:56] LABS: BASO # 0.01 K/mm3 (0.0-2.0); BASO % 0.1 % (0.0-3.0); EOS % 0.4 % (1.5-5.0); HEMOGLOBIN 11.8 g/dL (14.0-18.0); LYMPH % 14.5 % (22.0-35.0); MEAN CELL VOLUME 86.2 fl (80.0-105.0); MEAN CORPUSCULAR HEMOGLOBIN 27.2 pg (25.0-35.0); MEAN CORPUSCULAR HGB CONC 31.6 g/dl (31.0-37.0); MONO # 0.8 (0.1-0.6); MONO % 11.9 % (1.0-6.0); PLATELET COUNT 137 10^3/uL (120.0-450.0); RBC 4.34 10^6/uL (3.5-6.1); RED CELL DISTRIBUTION WIDTH 19.4 % (11.5-14.5)
[2018-11-01] MEDS: Piperacillin/Tazobact 3.375 gm 100 ML IVPB SCH (21:40)
--- NOTE | 2018-11-02 02:36 | HP ---
DATE OF EXAM: 11/01/2018 The patient is a 72-year-old male. The patient was seen and examined at the bedtime on 11/01/2018. CHIEF COMPLAINT: Blood in stool, abdominal pain. HISTORY OF PRESENT ILLNESS: Mr. Esteban Carrion is a 72-year-old male with past medical history of hypertension, COPD, CVA, blind and deafness, brought by EMS for emergency. Patient reports blood in stool since yesterday and having abdominal pain. Patient's family reported that he was vomiting yesterday and earlier today patient's appetite was very poor. They mentioned also patient experiencing decreased p.o. intake. No fever. No chills. No hematuria. No hematochezia. PAST MEDICAL HISTORY: Hypertension, COPD, CVA, blind, cataract, deafness, glaucoma, cirrhosis of the liver, depression, and psychosis. FAMILY HISTORY: Father and mother, noncontributory. HABITS: Former smoker, now no smoking. History of substance abuse. Not drinking. No drug abuse. ALLERGIES: THE PATIENT IS NOT ALLERGIC WITH ANY MEDICATIONS. HOME MEDICATIONS: Eyedrops and Zoloft. REVIEW OF SYSTEMS: The patient was seen and examined at the bedside in the emergency room, looking comfortable, complaining of abdominal pain. No hematuria. No chest pain. No palpitations. Sometime coughing with shortness of breath. PHYSICAL EXAMINATION: VITAL SIGNS: Temperature 97, pulse 95, respiratory rate 18, blood pressure 130/75, and pulse oximetry 99%. HEENT: Head is normocephalic and atraumatic. Eyes; PERRLA. Extraocular muscles intact. Conjunctivae clear. Nose patent. Mucous membrane moist. NECK: Supple. No carotid bruit. No JVD or thyromegaly. CHEST: Bilaterally symmetrical. HEART: S1 and S2 positive. LUNGS: Clear to auscultation. ABDOMEN: Soft. Bowel sounds present. No organomegaly. EXTREMITIES: No edema. No cyanosis. NEUROLOGIC: Patient is awake and alert. Moving all 4 extremities. No focal deficits. LABORATORY DATA: White blood cell is 14.3, hemoglobin 12.6, hematocrit 38.1, and platelets 204. Sodium 139, potassium 4.2, BUN 13, creatinine 0.9, glucose 113, bilirubin 1.8, and AST 80. ASSESSMENT AND PLAN: Mr. 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 Stool occult is positive. Alcohol level is less than 10. We admitted the patient. Discussion done with Robby. Looks like patient is septic. Sepsis progress note reviewed. CAT scan of the abdomen and pelvis noted. No acute intraabdominal findings according to CAT scan. Patient is noncompliant. History of heavy ethanol abuse and smoking, history of ascites, paracentesis done x2, history of chronic obstructive pulmonary disease, asthma, and insomnia, restarted home medications, history of depression, got Zosyn. Continue Zosyn. Getting Zoloft and Zofran according to his need. It looks like patient is dehydrated. Continue NS. He was not taking eating or drinking, second thing, he was vomiting. GI consult called. Repeat labs. We will follow up. Evie Ponce MD MTDD
[2018-11-02] MEDS: Piperacillin/Tazobact 3.375 gm 100 ML IVPB SCH (05:31)
[2018-11-02] MEDS: Pantoprazole 40 mg EC Tab PO SCH (05:31)
[2018-11-02 06:17] LABS: HEMOGLOBIN 10.2 g/dL (14.0-18.0); MEAN CELL VOLUME 84.9 fl (80.0-105.0); MEAN CORPUSCULAR HEMOGLOBIN 26.6 pg (25.0-35.0); MEAN CORPUSCULAR HGB CONC 31.4 g/dl (31.0-37.0); PLATELET COUNT 126 10^3/uL (120.0-450.0); RBC 3.83 10^6/uL (3.5-6.1); RED CELL DISTRIBUTION WIDTH 19.3 % (11.5-14.5); WHITE BLOOD COUNT 5.4 10^3/uL (4.5-11.0)
[2018-11-02 06:57] LABS: IRON 62 ug/dL (45-180)
[2018-11-02 07:07] LABS: % IRON SATURATION 24 % (20-55); TOTAL IRON BINDING CAPACITY 264 ug/dL (261-462)
[2018-11-02 07:08] LABS: LDL CHOLESTEROL 87 mg/dL (0-129)
[2018-11-02 07:59] LABS: BLOOD UREA NITROGEN 29 mg/dL (7-21); CALCIUM 8.5 mg/dL (8.4-10.5); GFR NON-AFRICAN AMERICAN > 60; HDL CHOLESTEROL 20 mg/dL (29-60)
[2018-11-02] MEDS ORDERED: Arformoterol 15 mcg/2 ml Inh Sol IH SCH ×2 (08:00)
[2018-11-02] MEDS: Budesonide 0.25 mg/2 ml Inhal Susp UD IH SCH ×2 (08:07→19:14)
[2018-11-02] MEDS: Dorzolamide 2%/Timolol 0.5% 100 DROP/10 ML BOTTLE OD SCH ×2 (10:11→17:23)
[2018-11-02 14:30] LABS: FOLATE 10.7 ng/mL
[2018-11-02] MEDS: POLYETHYLENE GLYCOL 3350 17 GM/Dose PACKET PO SCH ×2 (16:31→17:22)
[2018-11-02] MEDS: Arformoterol 15 mcg/2 ml Inh Sol IH SCH (19:14)
--- NOTE | 2018-11-02 23:51 | CON ---
DATE: 11/02/2018 PULMONARY CONSULTATION REFERRING PHYSICIAN: Evie Ponce MD REASON FOR CONSULTATION: Chronic lung disease. Admitted the abdominal pain, nausea, vomiting, lethargic. HISTORY OF PRESENT ILLNESS: This is a 72 years old gentleman, known to my service from previous admission, known complaint of does not follow up in the office. He has a chronic obstructive lung disease. Active smoker, hypertension, history of stroke, blind and deaf, cirrhotic liver from ethanol abuse, recurrent GI bleed with esophageal gastric varices, comes in to ER with nausea, vomiting, not much distention of the abdomen at this time. No diffuse leg pain or swelling. PAST MEDICAL HISTORY: Also includes psychosis, depression. SOCIAL HISTORY: History of smoking and excessive alcohol use. ALLERGIES: NONE KNOWN. FAMILY HISTORY: No significant cardiopulmonary disease reported. MEDICATIONS: He is on Protonix 40 mg daily, Pulmicort inhaled twice a day, Zoloft 25 mg daily. REVIEW OF SYSTEMS: No headache, no rhinitis. Sleepy, arousable, poor appetite. Short of breath with exertion. No chest pain, no abdominal pain. No diffuse leg pain or leg swelling. PHYSICAL EXAMINATION GENERAL: No acute distress. VITAL SIGNS: Temperature is 98, heart rate 74, respiratory rate is 18, blood pressure 145/60 and pulse ox 97% room air. HEENT: Small oral cavity. Crowded airway. NECK: Supple. No JVD. LUNGS: Have a few scattered rhonchi and few wheezing. HEART: S1, S2. ABDOMEN: Soft and nondistended. EXTREMITIES: No edema. NEUROLOGIC: Sleepy, alert. Follows simple commands. LABORATORY DATA: Shows hemoglobin 10.2, hematocrit 32.5, WBC 0.14, platelet count is 126. INR 1.19, PTT is 36. Blood gases done yesterday, which is VBG shows pH 7.42, pCO2 is 40. Sodium 139, potassium 2.7, chloride 109, bicarbonate 21, BUN 29, creatinine 0.7, glucose 98, hemoglobin A1c 4.3. Calcium is 8.5. Iron is 62, TIBC 264. Triglyceride is 89. Cholesterol is 137. Vitamin B12 is 781, folate is 10.7, TSH 0.50. Urinalysis shows wbc none. Stool occult blood is positive. Alcohol quantitative less than 10. He has a CAT scan of the abdomen and pelvis done in the ER showing no acute intraabdominal finding. There is a small amount of ascites surrounding the liver. IMPRESSION AND PLAN: Chronic obstructive lung disease, cirrhotic liver with ascites, history of esophageal varices, anemia, history of hepatitis B, alcohol abuse, blind, very hard of hearing, history of tobacco and alcohol abuse, history of hernia repair, recurrent ascites requiring paracentesis in the past. Pulmonary point of view, doing well. We will give inhaled bronchodilator. Keep head at 45 degrees. Gastric prophylaxis. Sequential compression devices to lower extremity. Gastroenterology consult. We will get ammonia level, TSH and cortisol level. Aspiration precautions, fall precautions. Follow up labs the morning. Thank you, and we will follow with you. Theodore Atkins MD
--- NOTE | 2018-11-03 01:12 | PN ---
DATE: 11/02/2018 SUBJECTIVE: The patient is a 72-year-old male. The patient was seen and examined on the bedside, looking comfortable. No fever, no chills. No hematuria, no hematochezia. No headache. No dizziness. No chest pain. No palpitations. The patient is a poor historian. PHYSICAL EXAMINATION: VITAL SIGNS: Temperature 97.7, pulse 90, blood pressure 140/69, respiratory rate 18. HEENT: Head is normocephalic and atraumatic. Eyes PERRLA. Extraocular muscles intact. Conjunctivae clear. Nose patent. Mucous membranes moist. NECK: Supple. No carotid bruits. No JVD. No thyromegaly. CHEST: Bilaterally symmetrical. HEART: S1 and S2 positive. LUNGS: Clear to auscultation. ABDOMEN: Soft. Bowel sounds present. No organomegaly. EXTREMITIES: No edema. No cyanosis. NEUROLOGIC: The patient awake and alert. Follow simple commands. MEDICATIONS: Brovana, eyedrops, MiraLax, Protonix, Pulmicort, Zoloft, got Fleet enema. LABORATORY DATA: White blood cells 5.4, hemoglobin 10.2, hematocrit 32.5, and platelets 126. Sodium 139, potassium 3.7, BUN 29, creatinine 0.7. Hemoglobin A1c 4.3. ASSESSMENT AND PLAN: Mr. Esteban Carrion is a 72-year-old male with abnormal liver function test. The patient's leukocytosis improved, anemia, proteinuria, stool occult positive. Alcohol quantitative is less than 10; came with lower gastrointestinal bleeding. Gastrointestinal consult with Dr. Oropeza. History of hypertension, chronic obstructive pulmonary disease, cerebrovascular accident. The patient is blind, has cataract, deafness, glaucoma, cirrhosis of the liver, depression, and history of psychosis. History of heavy ethanol abuse and smoking, ascites, paracentesis done x2. Got lactulose enema, phosphate enema. Getting gastrointestinal and deep venous thrombosis prophylaxis. Got normal saline. The patient was dehydrated. Antibiotics. Repeat labs. We will follow up. Evie Ponce MD
--- NOTE | 2018-11-03 04:35 | CON ---
DATE: 11/02/2018 This patient was seen and evaluated earlier. REASON FOR CONSULTATION: Abdominal pain, blood in the stool. HISTORY OF PRESENT ILLNESS: This 72-year-old patient with cirrhosis of the liver, ____, blind and also reduced hearing deafness, extremely noncompliant, history of COPD, was brought to the hospital by the family, was found to have decreased p.o. intake and episode of vomiting. Also noticed to have some blood in the stool. The patient was also complaining some abdominal discomfort. PAST MEDICAL HISTORY: Significant for hypertension, COPD, status post CVA, cataract, deafness, glaucoma, cirrhosis of the liver, and the patient did have upper endoscopy in 04/2017 and banding of the grade 11 esophageal varices status post banding done and colonoscopy done 10/2016 showed AVM and diverticulosis and polyps. The patient was extremely noncompliant, did not followup, refused colonoscopy multiple times. Other past medical history as above. SURGICAL HISTORY: Left hip repair and hernia repair. SOCIAL HISTORY: He is ex-smoker. History of alcohol use for long time. ALLERGIES: NO KNOWN DRUG ALLERGIES. FAMILY HISTORY: Lives at home with information assurance manager. Daughter also with her with some underlying psychotic problems. PHYSICAL EXAMINATION GENERAL: The patient lying on the bed not in acute distress. VITAL SIGNS: Temperature afebrile, pulse 67, blood pressure 166/91. HEENT: Atraumatic, anicteric. NECK: Supple. HEART: S1, S2 heard. LUNGS: Bilateral air entry present. ABDOMEN: Soft. Mild tenderness on deep palpation. EXTREMITIES: No cyanosis. No clubbing. LABORATORY DATA: Hemoglobin 10.2, hematocrit 32.5, WBC 5.4, platelets 126. Chemistry: BUN 29, creatinine 0.7. IMPRESSION: 1. This 72-year-old patient with cirrhosis of the liver secondary to the ethanol, chronic obstructive pulmonary disease status post cerebrovascular accident, blind and deaf, admitted with rectal bleeding, abdominal discomfort, poor p.o. intake. Rule out underlying sepsis. 2. The patient also has fecal impaction, rectal bleeding could be due to the local etiology. The patient had a colonoscopy in 2016, and had colon polyps and patient refused to follow up the colonoscopies in multiple occasions. Would recommend at this point start the patient on lactulose. Followup of the hemoglobin and hematocrit. Followup of the cultures. Continue with empiric antibiotics coverage. Thank you very much for allowing me to participate in the care of the patient. Deyanira Oropeza MD
[2018-11-03] MEDS: Pantoprazole 40 mg EC Tab PO SCH (05:23)
[2018-11-03 07:22] LABS: HEMOGLOBIN 9.9 g/dL (14.0-18.0); MEAN CELL VOLUME 86.1 fl (80.0-105.0); MEAN CORPUSCULAR HEMOGLOBIN 26.5 pg (25.0-35.0); MEAN CORPUSCULAR HGB CONC 30.7 g/dl (31.0-37.0); PLATELET COUNT 119 10^3/uL (120.0-450.0); RBC 3.74 10^6/uL (3.5-6.1); RED CELL DISTRIBUTION WIDTH 18.9 % (11.5-14.5); WHITE BLOOD COUNT 5.9 10^3/uL (4.5-11.0)
[2018-11-03] MEDS: Arformoterol 15 mcg/2 ml Inh Sol IH SCH ×2 (07:34→19:22)
[2018-11-03] MEDS: Budesonide 0.25 mg/2 ml Inhal Susp UD IH SCH ×2 (07:34→19:22)
[2018-11-03 07:47] LABS: ALB/GLOB RATIO 0.6 (1.1-1.8); ALBUMIN 2.5 g/dL (3.0-4.8); ALT/SGPT 34 U/L (7-56); AST/SGOT 53 U/L (17-59); BLOOD UREA NITROGEN 20 mg/dL (7-21); CALCIUM 8.7 mg/dL (8.4-10.5); GFR NON-AFRICAN AMERICAN > 60
--- NOTE | 2018-11-03 08:46 | CP.PCM.PN ---
<José Antonio Hopkins - Last Filed: 11/03/18 18:12> Subjective - Date & Time of Evaluation Date of Evaluation: 11/03/18 Time of Evaluation: 07:46 - Subjective Subjective: José Antonio Hopkins PGY2 GI Progress Note for Dr. Oropeza Patient was seen and examined at bedside. He denies abdominal pain or trouble breathing. He states that he is nauseous and vomits sometimes at home, but has not since admitted. No other acute overnight events. Objective - Vital Signs/Intake and Output Vital Signs (last 24 hours): Temp Pulse Resp BP Pulse Ox 98.2 F 75 18 143/71 99 11/03/18 06:00 11/03/18 06:00 11/03/18 06:00 11/03/18 06:00 11/03/18 06:00 Intake and Output: 11/03/18 11/03/18 06:59 18:59 Intake Total 1340 Balance 1340 - Medications Medications: Current Medications Arformoterol Tartrate (Brovana) 15 mcg IH [id number] [facility] Last Admin: 11/03/18 07:34 Dose: 15 mcg Budesonide (Pulmicort Respules) 0.25 mg IH [id number] [facility] Last Admin: 11/03/18 07:34 Dose: 0.25 mg Dorzolamide/Timolol (Cosopt 2%-0.5% Opht) 1 drop OD BID [facility] Last Admin: 11/02/18 17:23 Dose: Not Given Pantoprazole Sodium (Protonix Ec Tab) 40 mg PO 0600 [facility] Last Admin: 11/03/18 05:23 Dose: 40 mg Polyethylene Glycol (Miralax) 17 gm PO BID [facility] Last Admin: 11/02/18 17:22 Dose: Not Given Sertraline HCl (Zoloft) 25 mg PO DAILY [facility] Last Admin: 11/02/18 10:12 Dose: 25 mg - Labs Labs: 11/03/18 06:30 11/03/18 06:30 PT 13.4 SECONDS (9.4-12.5) H 11/01/18 12:50 INR 1.19 11/01/18 12:50 APTT 35.7 Seconds (26.9-38.3) 11/01/18 12:50 - Constitutional Appears: Well, Non-toxic, No Acute Distress - Head Exam Head Exam: ATRAUMATIC, NORMAL INSPECTION, NORMOCEPHALIC - Eye Exam Eye Exam: EOMI, PERRL Pupil Exam: PERRL - ENT Exam ENT Exam: Mucous Membranes Moist, Normal Exam - Neck Exam Neck Exam: Full ROM, Normal Inspection. absent: Lymphadenopathy - Respiratory Exam Respiratory Exam: Clear to Ausculation Bilateral, NORMAL BREATHING PATTERN. absent: Wheezes - Cardiovascular Exam Cardiovascular Exam: REGULAR RHYTHM, +S1, +S2. absent: Murmur - GI/Abdominal Exam GI & Abdominal Exam: Soft, Normal Bowel Sounds. absent: Guarding, Rigid, Tenderness, Distended - Extremities Exam Extremities Exam: Full ROM (no asterixis noted), Normal Capillary Refill, Normal Inspection. absent: Joint Swelling, Pedal Edema - Back Exam Back Exam: NORMAL INSPECTION - Neurological Exam Neurological Exam: Alert, Awake, Oriented x2 (person and place) - Psychiatric Exam Psychiatric exam: Normal Affect, Normal Mood - Skin Skin Exam: Dry, Intact, Normal Color, Warm Assessment and Plan - Assessment and Plan (Free Text) Assessment: 72 year old male with a PMH of decompensated EtOH cirrhosis c/b ascites and bleeding esophageal varices, h/o HBV, EtOH abuse, COPD and tobacco abuse, blindness and decreased hearing acuity who is admitted for sepsis and decreased PO intake.MELD score 15; Child Class B. Patient is a poor candidate for liver transplant given his baseline and psychosocial state. Plan: - patient should be on Furosemide 40 mg PO QD and Spironolactone 100 mg PO QD; would start once BP is stable - Monitor BMP, Daily weights and I&O - diet switched to low salt w/ fluid restriction <1.5L /day - Lactulose started - Patient continues to refuse colonoscopy evaluation of polyps seen in 2017 - further recs per Dr. Oropeza Case was reviewed and discussed with attending, Dr. Oropeza <Deyanira Oropeza V - Last Filed: 11/03/18 22:35> Objective - Vital Signs/Intake and Output Vital Signs (last 24 hours): Temp Pulse Resp BP Pulse Ox 98 F 92 H 18 118/76 99 11/03/18 18:00 11/03/18 18:00 11/03/18 18:00 11/03/18 18:00 11/03/18 06:00 Intake and Output: 11/03/18 11/04/18 18:59 06:59 Intake Total 720 Balance 720 - Medications Medications: Current Medications Arformoterol Tartrate (Brovana) 15 mcg IH [id number] [facility] Last Admin: 11/03/18 19:22 Dose: 15 mcg Budesonide (Pulmicort Respules) 0.25 mg IH [id number] [facility] Last Admin: 11/03/18 19:22 Dose: 0.25 mg Dorzolamide HCl (Trusopt) 0 ml OD BID [facility] Last Admin: 11/03/18 18:16 Dose: Not Given Lactulose (Enulose) 10 gm PO BID [facility] Last Admin: 11/03/18 18:14 Dose: 10 gm Pantoprazole Sodium (Protonix Ec Tab) 40 mg PO 0600 [facility] Last Admin: 11/03/18 05:23 Dose: 40 mg Polyethylene Glycol (Miralax) 17 gm PO BID [facility] Last Admin: 11/03/18 18:14 Dose: 17 gm Sertraline HCl (Zoloft) 25 mg PO DAILY [facility] Last Admin: 11/03/18 10:00 Dose: 25 mg Timolol Maleate (Timoptic 0.5% Ophth Soln) 0 drop OD BID [facility] Last Admin: 11/03/18 18:15 Dose: Not Given - Labs Labs: 11/03/18 06:30 11/03/18 06:30 PT 13.4 SECONDS (9.4-12.5) H 11/01/18 12:50 INR 1.19 11/01/18 12:50 APTT 35.7 Seconds (26.9-38.3) 11/01/18 12:50 Attending/Attestation - Attestation I have personally seen and examined this patient.: Yes I have fully participated in the care of the patient.: Yes I have reviewed all pertinent clinical information, including history, physical exam and plan: Yes Notes (Text): This patient was seen and evaluated here earlier along with the resident. This is an addendum to the GI progress report dictated by the resident. Discussed with patient's primary care physician Dr. Ponce. Patient has been extremely noncompliant with the follow-up and treatment recommendations. History of anemia history of polyp refused colonoscopy evaluation. Now admitted with the reduced p.o. intake weakness rectal bleeding. Patient was found to have a large amount of stool in the rectum. Tolerating the diet patient's brother is concerned about cirrhosis and evaluation for liver transplant. This 72-year-old patient with decompensated cirrhosis legally blind reduced hearing deafness noncompliant with the follow-up he is not a candidate for liver transplant. However contact details will be will be given to the patient's brother regarding follow-up at [facility] liver unit. Multiple attempts for preparing the colon as an inpatient also failed. Continue laxatives We will reschedule for colonoscopy if patient is agreeable Patient has only minimal ascites history of large volume paracentesis in the past We need to titrate the dose of the Aldactone and Lasix very closely we will start out with the low-dose Lyrica down the dose of Aldactone to 50 mg and Lasix to 20 mg to begin with. Recommend close follow-up of the hemoglobin and hematocrit and also electrolytes Patient would require long-term stool softeners/MiraLAX and titrate the dose. Thank you for allowing us to participate in the care of the patient 11/03/18 22:28
--- NOTE | 2018-11-03 09:25 | CARD ---
APPROVED REPORT Date of service: 11/03/2018 EKG Measurement Heart [id number] <Conclusion> Normal sinus rhythm Low voltage QRS Borderline ECG
[2018-11-03] MEDS: POLYETHYLENE GLYCOL 3350 17 GM/Dose PACKET PO SCH ×2 (10:00→18:14)
[2018-11-03] MEDS ORDERED: Dorzolamide 2% Opht Sol 10ml OU SCH (10:00)
--- NOTE | 2018-11-03 13:23 | CP.PCM.APN ---
Subjective - Date & Time of Evaluation Date of Evaluation: 11/03/18 Time of Evaluation: 10:00 - Subjective Subjective: pt seen lying in bed, pt in NAD, pt reports he feels ok and asking to be washed up. Pt denies sob, denies dizziness , denies abd pain when questioned. Review of Systems - Constitutional Constitutional: As Per HPI Objective - Vital Signs/Intake and Output Vital Signs (last 24 hours): Temp Pulse Resp BP Pulse Ox 98.2 F 75 18 143/71 99 11/03/18 06:00 11/03/18 06:00 11/03/18 06:00 11/03/18 06:00 11/03/18 06:00 Intake and Output: 11/03/18 11/03/18 06:59 18:59 Intake Total 1340 Balance 1340 - Medications Medications: Current Medications Arformoterol Tartrate (Brovana) 15 mcg IH [id number] [facility] Last Admin: 11/03/18 07:34 Dose: 15 mcg Budesonide (Pulmicort Respules) 0.25 mg IH [id number] [facility] Last Admin: 11/03/18 07:34 Dose: 0.25 mg Dorzolamide/Timolol (Cosopt 2%-0.5% Opht) 1 drop OD BID [facility] Last Admin: 11/02/18 17:23 Dose: Not Given Pantoprazole Sodium (Protonix Ec Tab) 40 mg PO 0600 [facility] Last Admin: 11/03/18 05:23 Dose: 40 mg Polyethylene Glycol (Miralax) 17 gm PO BID [facility] Last Admin: 11/02/18 17:22 Dose: Not Given Sertraline HCl (Zoloft) 25 mg PO DAILY [facility] Last Admin: 11/02/18 10:12 Dose: 25 mg - Labs Labs: 11/03/18 06:30 11/03/18 06:30 PT 13.4 SECONDS (9.4-12.5) H 11/01/18 12:50 INR 1.19 11/01/18 12:50 APTT 35.7 Seconds (26.9-38.3) 11/01/18 12:50 - Constitutional Appears: No Acute Distress - Head Exam Head Exam: ATRAUMATIC - Eye Exam Pupil Exam: PERRL - ENT Exam ENT Exam: Mucous Membranes Moist, Normal Exam - Neck Exam Neck Exam: Normal Inspection - Respiratory Exam Respiratory Exam: Clear to Ausculation Bilateral, NORMAL BREATHING PATTERN - Cardiovascular Exam Cardiovascular Exam: +S1, +S2 - Exam External exam: NORMAL EXTERNAL EXAM - Extremities Exam Extremities Exam: Full ROM, Normal Capillary Refill - Neurological Exam Additional comments: moves all extremities Assessment and Plan - Assessment and Plan (Free Text) Plan: 72 yr old with pmh sig for cirrhosis of liver, copd, ETOH abuse, ex-smoker, htn, visually impaired now admitted with c/o bloody stool, poor p.o intake, and episode of vomiting. P admitted with GI evalaution. pt with positive stool for occult blood, elevated ammonia level s/p lactulose, poor p.o. intake. pt with h/h trending lower. will continue to follow up on GI recomendations. Pt with Avysis in place for safety. discuss with IDT BPCI/TIC - BPCIA/TIC Flyers given, including CMS Beneficiary letter: N/A Pt/family verbalized understanding & agreed to program: N/A
--- NOTE | 2018-11-03 13:57 | PN ---
DATE: 11/03/2018 PULMONARY PROGRESS NOTE REFERRING PHYSICIAN: Evie Ponce MD SUBJECTIVE: The patient is seen lying in bed. Brothers are at bedside. No acute distress. No overnight events reported. No headache, rhinitis, cough, shortness of breath, chest pain, abdominal pain, nausea, vomiting, diarrhea, leg pain, or leg swelling reported. Nursing staff report the patient had bowel movement last night. No evidence of bleeding noted. OBJECTIVE: VITAL SIGNS: Blood pressure 143/71, pulse 75, temperature 98.2, oxygen saturation 99% on room air. GENERAL: No acute distress. HEENT: Moist mucous membranes. Small oral cavity. Crowded airway. NECK: Supple. No JVD. LUNGS: Few scattered rhonchi. CARDIOVASCULAR: S1 and S2. ABDOMEN: Soft, nontender. No distention. EXTREMITIES: No bilateral lower extremity edema. NEUROLOGIC: Awake, alert, verbal. Following commands. MEDICATIONS: Reviewed. Brovana 15 mcg every 12 hours, Pulmicort 0.25 mg inhalation every 12 hours, Cosopt one drop twice a day, Protonix 40 mg daily, MiraLax 17 g twice a day, Zoloft 25 mg daily. LABORATORY DATA: Reviewed. WBC 5.9, RBC 3.74, hemoglobin 9.9, hematocrit 32.2, platelets 119. Sodium 137, potassium 3.8, chloride 108, carbon dioxide 21, anion gap 13, BUN 20, creatinine 0.6, GFR greater than 60, random glucose 127, calcium 8.7. Total bilirubin 0.9, AST 53, ALT 37, alkaline phosphatase 236, ammonia 28, total protein 7, albumin 2.5, globulin 4.5, albumin-globulin ratio 0.6. TSH 2.13. EKG shows normal sinus rhythm. IMPRESSION AND PLAN: Chronic obstructive lung disease, cirrhotic liver with ascites, history of esophageal varices, anemia, history of hepatitis B, alcohol abuse, blind, hard of hearing, history of tobacco use, history of hernia repair, history of recurrent ascites requiring paracentesis. Presently positive stool for occult blood. Continue Gastroenterology follow-up. We will order ferritin level in the morning. Pulmonary point of view, will continue inhaled bronchodilators. Gastric prophylaxis, head of bed elevated 45 degrees, aspiration precaution. Continue sequential compression devices for bilateral lower extremities, as the patient cannot be placed on chemical prophylaxis at this time due to positive stool for occult blood and anemia. We will follow up with cortisol level when available. Fall precautions. This patient was seen and examined with Dr. Atkins. Discussed assessment and plan as described above. This patient was seen and examined with Garry Gutierrez, nurse practitioner. Discussed assessment and plan as described above. Thank you for this consult. We will follow with you. Garry Gutierrez APN Theodore Atkins MD
[2018-11-03] MEDS: Dorzolamide 2% Opht Sol 10ml OD SCH ×2 (16:02→18:16)
--- NOTE | 2018-11-03 17:17 | PN ---
DATE: 11/03/2018 The patient was seen and examined at the bedside on 11/03/2018. SUBJECTIVE: Looking comfortable. Did good breakfast. No fever. No chills. No shortness of breath. No chest pain. No palpitation. No headache. No dizziness. PHYSICAL EXAMINATION: VITAL SIGNS: Temperature 98.2, pulse 75, respiratory rate 18, blood pressure 140/70, and pulse oximetry 99%. HEENT: Head is normocephalic and atraumatic. Eyes; PERRLA. Extraocular muscles intact. Conjunctivae clear. Nose patent. Mucous membranes moist. NECK: Supple. No carotid bruits. No JVD. No thyromegaly. CHEST: Bilaterally symmetrical. HEART: S1 and S2 positive. LUNGS: Clear to auscultation. ABDOMEN: Soft. No organomegaly. EXTREMITIES: No edema. No cyanosis. NEUROLOGIC: The patient is awake and alert. Moving all four extremities. No focal deficit. MEDICATIONS: Brovana, Pulmicort, timolol, pantoprazole, MiraLax, and Zoloft. LABORATORY DATA: White blood cells 5.9, hemoglobin 9.9, hematocrit 32.2, and platelets 119. Sodium 137, potassium 3.8, BUN 20, creatinine 0.7, and glucose 127. ASSESSMENT AND PLAN: Mr. Esteban Carrion is 72-year-old male, with anemia, hyperglycemia, history of cirrhosis of the liver, chronic obstructive pulmonary disease, ethanol abuse, smoking, hypertension, and visually impaired, now admitted for gastrointestinal bleeding eating well, history of nausea and vomiting, elevated ammonia level and stool guaiac positive, getting lactulose. Gastroenterology is on the case. Social workers are working to help the patient. Family will take care of him. I reviewed nurse practitionerVandana's notes. History of chronic obstructive pulmonary disease, asthma, and very noncompliant. Gastrointestinal and deep venous thrombosis prophylaxis. Repeat labs. We will follow up. Evie Ponce MD MTDAwais
[2018-11-04] MEDS: Magnesium Sulfate 1 gm in D5W 1 GM/100 ML BAG IVPB ONE ×2 (00:08→00:42)
[2018-11-04] MEDS: Pantoprazole 40 mg EC Tab PO SCH (05:22)
[2018-11-04 06:28] LABS: HEMOGLOBIN 9.8 g/dL (14.0-18.0); MEAN CELL VOLUME 85.6 fl (80.0-105.0); MEAN CORPUSCULAR HEMOGLOBIN 26.7 pg (25.0-35.0); MEAN CORPUSCULAR HGB CONC 31.2 g/dl (31.0-37.0); PLATELET COUNT 139 10^3/uL (120.0-450.0); RBC 3.67 10^6/uL (3.5-6.1); RED CELL DISTRIBUTION WIDTH 18.8 % (11.5-14.5); WHITE BLOOD COUNT 6.6 10^3/uL (4.5-11.0)
[2018-11-04 06:31] LABS: INR 1.2; PROTHROMBIN TIME 13.6 SECONDS (9.4-12.5)
[2018-11-04 07:24] LABS: BLOOD UREA NITROGEN 14 mg/dL (7-21); CALCIUM 8.5 mg/dL (8.4-10.5); GFR NON-AFRICAN AMERICAN > 60
[2018-11-04] MEDS: Arformoterol 15 mcg/2 ml Inh Sol IH SCH ×2 (07:27→19:41)
[2018-11-04] MEDS: Budesonide 0.25 mg/2 ml Inhal Susp UD IH SCH ×2 (07:28→19:41)
--- NOTE | 2018-11-04 07:32 | CP.PCM.PN ---
<José Antonio Hopkins - Last Filed: 11/04/18 17:20> Subjective - Date & Time of Evaluation Date of Evaluation: 11/04/18 Time of Evaluation: 07:32 - Subjective Subjective: José Antonio Hopkins PGY2 GI Progress Note for Dr. Oropeza Patient was seen and examined at bedside. Patient denies an nausea/vomiting. Over the past 24 hrs, the patient had 2 BM's, with no blood noted. Diuretics will be added today, with BP, Cr and electrolytes monitored. I discussed the patient's condition with his brother Mookie Carrion (#[phone]) and provided him with the number for the hepatology specialists @ [facility] ([phone]) to make an appointment and outpatient f/u for his cirrhosis. Objective - Vital Signs/Intake and Output Vital Signs (last 24 hours): Temp Pulse Resp BP Pulse Ox 98 F 91 H 18 118/76 99 11/03/18 18:00 11/04/18 05:47 11/03/18 18:00 11/03/18 18:00 11/03/18 06:00 Intake and Output: 11/04/18 11/04/18 06:59 18:59 Intake Total 900 Balance 900 - Medications Medications: Current Medications Arformoterol Tartrate (Brovana) 15 mcg IH [id number] [facility] Last Admin: 11/04/18 07:27 Dose: 15 mcg Budesonide (Pulmicort Respules) 0.25 mg IH [id number] [facility] Last Admin: 11/04/18 07:28 Dose: 0.25 mg Dorzolamide HCl (Trusopt) 0 ml OD BID [facility] Last Admin: 11/03/18 18:16 Dose: Not Given Furosemide (Lasix) 20 mg PO DAILY [facility] Lactulose (Enulose) 10 gm PO BID [facility] Last Admin: 11/03/18 18:14 Dose: 10 gm Pantoprazole Sodium (Protonix Ec Tab) 40 mg PO 0600 [facility] Last Admin: 11/04/18 05:22 Dose: 40 mg Polyethylene Glycol (Miralax) 17 gm PO BID [facility] Last Admin: 11/03/18 18:14 Dose: 17 gm Sertraline HCl (Zoloft) 25 mg PO DAILY [facility] Last Admin: 11/03/18 10:00 Dose: 25 mg Spironolactone (Aldactone) 50 mg PO DAILY [facility] Timolol Maleate (Timoptic 0.5% Ophth Soln) 0 drop OD BID [facility] Last Admin: 11/03/18 18:15 Dose: Not Given - Labs Labs: 11/04/18 06:00 11/04/18 06:00 PT 13.6 SECONDS (9.4-12.5) H 11/04/18 06:00 INR 1.20 11/04/18 06:00 APTT 35.7 Seconds (26.9-38.3) 11/01/18 12:50 - Constitutional Appears: Well, Non-toxic, No Acute Distress - Head Exam Head Exam: ATRAUMATIC, NORMAL INSPECTION, NORMOCEPHALIC - Eye Exam Eye Exam: EOMI, PERRL Pupil Exam: PERRL - ENT Exam ENT Exam: Mucous Membranes Moist, Normal Exam - Neck Exam Neck Exam: Full ROM, Normal Inspection. absent: Lymphadenopathy - Respiratory Exam Respiratory Exam: Clear to Ausculation Bilateral, NORMAL BREATHING PATTERN. absent: Wheezes - Cardiovascular Exam Cardiovascular Exam: REGULAR RHYTHM, +S1, +S2. absent: Murmur - GI/Abdominal Exam GI & Abdominal Exam: Soft, Normal Bowel Sounds. absent: Guarding, Rigid, Tenderness, Distended - Extremities Exam Extremities Exam: Full ROM (no asterixis noted), Normal Capillary Refill, Normal Inspection. absent: Joint Swelling, Pedal Edema - Back Exam Back Exam: NORMAL INSPECTION - Neurological Exam Neurological Exam: Alert, Awake, Oriented x2 (person and place) - Psychiatric Exam Psychiatric exam: Normal Affect, Normal Mood - Skin Skin Exam: Dry, Intact, Normal Color, Warm Assessment and Plan - Assessment and Plan (Free Text) Assessment: 72 year old male with a PMH of decompensated EtOH cirrhosis c/b ascites and bleeding esophageal varices, h/o HBV, EtOH abuse, COPD and tobacco abuse, blindness and decreased hearing acuity who is admitted for sepsis and decreased PO intake. MELD score 11; Child Class B. Patient is a poor candidate for liver transplant given his baseline and psychosocial state. Plan: - patient should be on Furosemide 40 mg PO QD and Spironolactone 100 mg PO QD; started at lower dose - will monitor BP, Cr and electrolytes and adjust diuresis accordingly - cont lactulose and miralax, goal 1-2 BM's a day; if more, then d/c miralax and cont lactulose; if diarrhea continues, will consider switching to rifaximin - Monitor BMP, Daily weights and I&O - cont low salt diet w/ fluid restriction <1.5L /day - Patient refused colonoscopy evaluation of polyps seen in 2017 - [facility] # provided to brother for outpatient follow-up with hepatologists - further recs per Dr. Oropeza Case was reviewed and discussed with attending, Dr. Oropeza <Deyanira Oropeza V - Last Filed: 11/04/18 23:20> Objective - Vital Signs/Intake and Output Vital Signs (last 24 hours): Temp Pulse Resp BP Pulse Ox 98.9 F 83 18 123/65 99 11/04/18 18:00 11/04/18 22:00 11/04/18 18:00 11/04/18 18:00 11/03/18 06:00 Intake and Output: 11/04/18 11/05/18 18:59 06:59 Intake Total 720 Balance 720 - Medications Medications: Current Medications Arformoterol Tartrate (Brovana) 15 mcg IH [id number] [facility] Last Admin: 11/04/18 19:41 Dose: 15 mcg Budesonide (Pulmicort Respules) 0.25 mg IH [id number] [facility] Last Admin: 11/04/18 19:41 Dose: 0.25 mg Dorzolamide HCl (Trusopt) 0 ml OD BID [facility] Last Admin: 11/04/18 17:28 Dose: 1 drop Furosemide (Lasix) 20 mg PO DAILY [facility] Last Admin: 11/04/18 09:28 Dose: 20 mg Gabapentin (Neurontin) 100 mg PO DAILY [facility]; Protocol Last Admin: 11/04/18 19:00 Dose: 100 mg Lactulose (Enulose) 10 gm PO BID [facility] Last Admin: 11/04/18 17:27 Dose: 10 gm Pantoprazole Sodium (Protonix Ec Tab) 40 mg PO 0600 [facility] Last Admin: 11/04/18 05:22 Dose: 40 mg Polyethylene Glycol (Miralax) 17 gm PO BID [facility] Last Admin: 11/04/18 17:27 Dose: 17 gm Sertraline HCl (Zoloft) 25 mg PO DAILY [facility] Last Admin: 11/04/18 09:28 Dose: 25 mg Spironolactone (Aldactone) 50 mg PO DAILY [facility] Last Admin: 11/04/18 09:28 Dose: 50 mg Timolol Maleate (Timoptic 0.5% Ophth Soln) 0 drop OD BID [facility] Last Admin: 11/04/18 17:28 Dose: 1 drop - Labs Labs: 11/04/18 06:00 11/04/18 06:00 PT 13.6 SECONDS (9.4-12.5) H 11/04/18 06:00 INR 1.20 11/04/18 06:00 APTT 35.7 Seconds (26.9-38.3) 11/01/18 12:50 Attending/Attestation - Attestation I have personally seen and examined this patient.: Yes I have fully participated in the care of the patient.: Yes I have reviewed all pertinent clinical information, including history, physical exam and plan: Yes Notes (Text): This is an addendum to the GI progress report dictated by the medical imaging specialist. The patient was seen and evaluated here earlier along with the resident. Decompensated cirrhosis, anemia, history of esophageal variceal bleeding status post band ligation This admission patient was admitted with a fecal impaction and rectal bleeding. History of colonic polyp refused to multiple times repeat colonoscopy evaluation. I have personally discussed with the patient's brother in the past few times. Contact number for the [facility] liver unit was given to the patient's brother by the resident Patient has been on diuretics. Titrate the dose and follow-up electrolytes History of constipation recent fecal impaction on lactulose titrate the dose to keep the bowel movements. 11/04/18 23:17
[2018-11-04] MEDS: Dorzolamide 2% Opht Sol 10ml OD SCH ×2 (09:27→17:28)
[2018-11-04] MEDS: POLYETHYLENE GLYCOL 3350 17 GM/Dose PACKET PO SCH ×2 (09:28→17:27)
[2018-11-04] MEDS: Dorzolamide 2%/Timolol 0.5% 100 DROP/10 ML BOTTLE OD SCH (09:29)
--- NOTE | 2018-11-04 12:06 | PN ---
DATE: 11/04/2018 REFERRING PHYSICIAN: Evie Ponce MD SUBJECTIVE: The patient is seen lying in bed. No acute distress. No overnight events reported. The patient reports feeling okay this morning. No headache, rhinitis, cough, shortness of breath, chest pain, abdominal pain, nausea, vomiting, diarrhea, leg pain, or leg swelling reported. The patient had bowel movements this morning. OBJECTIVE: VITAL SIGNS: Blood pressure 119/65, pulse 91, temperature 98, oxygen saturation 99% on room air. GENERAL: No acute distress. HEENT: Moist mucous membranes. Crowded airway. Small oral cavity. NECK: Supple. No JVD. LUNGS: Fair airflow bilaterally. CARDIOVASCULAR: S1 and S2. ABDOMEN: Soft, nontender. No distention. EXTREMITIES: No bilateral lower extremity edema. NEUROLOGIC: Awake, alert, verbal. Following commands. MEDICATIONS: Reviewed. Brovana 15 mcg every 12 hours, Pulmicort 0.25 mg every 12 hours, Trusopt twice a day, Lasix 20 mg daily, lactulose 10 gm twice a day, Protonix 40 mg daily, MiraLax 17 g twice a day, Zoloft 25 mg daily, Aldactone 50 mg daily, timolol twice a day. LABORATORY DATA: Reviewed. WBC 6.6, RBC 3.67, hemoglobin 9.8, hematocrit 31.4, platelets 139. PT 13.6, INR 1.2. Sodium 134, potassium 4.4, chloride 105, carbon dioxide 22, anion gap 11, BUN 14, creatinine 0.5, GFR greater than 60, random glucose 135, calcium 8.5. IMPRESSION AND PLAN: Chronic obstructive lung disease, cirrhotic liver with ascites, history of esophageal varices, anemia, history of hepatitis B, alcohol abuse, blind, hard of hearing, history of tobacco use, history of hernia repair, history of recurrent ascites requiring paracentesis in the past. Continue Gastroenterology followup. Ferritin level pending. We will follow up when available. Pulmonary point of view, continue inhaled bronchodilators. Head of bed elevated 45 degrees, aspiration precaution. Gastric prophylaxis. Continue sequential compression devices to bilateral lower extremities, as the patient cannot be placed on chemical prophylaxis due to anemia status. Stool positive for occult blood. Fall precautions. Diuretics started by GI. Need to follow renal function closely. Recommend physical therapy for this out of bed to chair. This patient was seen and examined with Dr. Atkins. Discussed assessment and plan as described above. This patient was seen and examined with Garry Gutierrez, nurse practitioner. Discussed assessment and plan as described above. Thank you for this consult. We will follow with you. Garry Gutierrez APN Theodore Atkins MD
--- NOTE | 2018-11-04 20:00 | PN ---
DATE: 11/04/2018 SUBJECTIVE: The patient was seen and examined at the bedside on 11/04/2018. Looking comfortable. No headache. No dizziness. No chest pain. No palpitation. Looking better. At night, slept good , d/d with Dr. Oropeza about colonoscopy because the patient had lower GI bleeding. PHYSICAL EXAMINATION: VITAL SIGNS: Temperature 98, pulse 91, respiratory rate 18, blood pressure 118\76, , pulse oximetry 99%. HEENT: Head is normocephalic and atraumatic. Eyes: PERRLA. Extraocular muscles intact. Conjunctivae clear. Nose patent. Mucous membranes moist. NECK: Supple. No carotid bruits. No JVD. No thyromegaly. CHEST: Bilaterally symmetrical. HEART: S1 and S2 positive. LUNGS: Clear to auscultation. ABDOMEN: Soft. Bowel sounds present. No organomegaly. EXTREMITIES: No edema. No cyanosis. NEUROLOGIC: The patient is awake and alert. Moving all four extremities. No focal deficit. MEDICATIONS: Brovana, Pulmicort, Lasix, Protonix, MiraLax, Zoloft, Aldactone, and timolol. LABORATORY DATA: White blood cells 6.6, hemoglobin 9.8, hematocrit 31.4, and platelets 139. Sodium 134, potassium 4.4, BUN 14, creatinine 0.9, and glucose 135. ASSESSMENT AND PLAN: Mr. Esteban Carrion is a 72-year-old male with history of anemia, history of decompensated ethanol abuse, cirrhosis, history of ascites and paracentesis done x2, history of bleeding esophageal varices, history of chronic obstructive pulmonary disease, tobacco abuse, blindness, decreased hearing acuity, now is admitted for lower gastrointestinal bleeding, decreased p.o. intake. The patient is a poor candidate for liver transplant as per Gastrointestinal. According to Gastrointestinal, he is at poor baseline and psychosocial status. We will continue furosemide, Getting lactulose and MiraLax. Plan is to discontinue MiraLax, but continue lactulose for high ammonia level. Gastrointestinal and deep venous thrombosis prophylaxis. Repeat labs. We will follow up. Evei Ponce MD [facility] # [id number] MTDAwais
[2018-11-05] MEDS: Pantoprazole 40 mg EC Tab PO SCH (05:20)
[2018-11-05 05:41] VITALS: O2SAT 95
[2018-11-05 07:07] LABS: MEAN CELL VOLUME 85.3 fl (80.0-105.0); MEAN CORPUSCULAR HEMOGLOBIN 26.7 pg (25.0-35.0); MEAN CORPUSCULAR HGB CONC 31.3 g/dl (31.0-37.0); PLATELET COUNT 135 10^3/uL (120.0-450.0); RBC 3.74 10^6/uL (3.5-6.1); RED CELL DISTRIBUTION WIDTH 18.6 % (11.5-14.5); WHITE BLOOD COUNT 6.1 10^3/uL (4.5-11.0)
[2018-11-05] MEDS: Budesonide 0.25 mg/2 ml Inhal Susp UD IH SCH (07:18)
[2018-11-05] MEDS: Arformoterol 15 mcg/2 ml Inh Sol IH SCH (07:18)
[2018-11-05 07:39] LABS: ALB/GLOB RATIO 0.6 (1.1-1.8); ALBUMIN 2.7 g/dL (3.0-4.8); ALT/SGPT 35 U/L (7-56); AST/SGOT 57 U/L (17-59); BLOOD UREA NITROGEN 12 mg/dL (7-21); CALCIUM 8.8 mg/dL (8.4-10.5); GFR NON-AFRICAN AMERICAN > 60
--- NOTE | 2018-11-05 09:15 | CP.PCM.PN ---
<José Antonio Hopkins - Last Filed: 11/05/18 16:24> Subjective - Date & Time of Evaluation Date of Evaluation: 11/05/18 Time of Evaluation: 09:15 - Subjective Subjective: José Antonio Hopkins PGY2 GI Progress Note for Dr. Oropeza Patient was seen and examined at bedside. Patient denies an nausea/vomiting. Over the past 24 hrs, the patient had 3 BM's, with no blood noted. BP is stable. I discussed plans with brother Mookie yesterday regarding outpatient follow-up at [facility]. Objective - Vital Signs/Intake and Output Vital Signs (last 24 hours): Temp Pulse Resp BP Pulse Ox 98 F 77 20 131/65 95 11/05/18 05:41 11/05/18 05:41 11/05/18 05:41 11/05/18 05:41 11/05/18 05:41 Intake and Output: 11/05/18 11/05/18 06:59 18:59 Intake Total 1040 Balance 1040 - Medications Medications: Current Medications Arformoterol Tartrate (Brovana) 15 mcg [id number] Last Admin: 11/05/18 07:18 Dose: 15 mcg Budesonide (Pulmicort Respules) 0.25 mg [id number] Last Admin: 11/05/18 07:18 Dose: 0.25 mg Dorzolamide HCl (Trusopt) 0 ml OD BID [facility] Last Admin: 11/04/18 17:28 Dose: 1 drop Furosemide (Lasix) 20 mg PO DAILY [facility] Last Admin: 11/04/18 09:28 Dose: 20 mg Gabapentin (Neurontin) 100 mg PO [facility]ILY [facility]; Protocol Last Admin: 11/04/18 19:00 Dose: 100 mg Lactulose (Enulose) 10 gm PO BID [facility] Last Admin: 11/04/18 17:27 Dose: 10 gm Pantoprazole Sodium (Protonix Ec Tab) 40 mg PO 0600 [facility] Last Admin: 11/05/18 05:20 Dose: 40 mg Sertraline HCl (Zoloft) 25 mg PO DAILY [facility] Last Admin: 11/04/18 09:28 Dose: 25 mg Spironolactone (Aldactone) 50 mg PO [facility]ILY [facility] Last Admin: 11/04/18 09:28 Dose: 50 mg Timolol Maleate (Timoptic 0.5% Ophth Soln) 0 drop OD BID [facility] Last Admin: 11/04/18 17:28 Dose: 1 drop - Labs Labs: 11/05/18 06:15 11/05/18 06:30 PT 13.6 SECONDS (9.4-12.5) H 11/04/18 06:00 INR 1.20 11/04/18 06:00 APTT 35.7 Seconds (26.9-38.3) 11/01/18 12:50 - Constitutional Appears: Well, Non-toxic, No Acute Distress - Head Exam Head Exam: ATRAUMATIC, NORMAL INSPECTION, NORMOCEPHALIC - Eye Exam Eye Exam: EOMI, PERRL Pupil Exam: PERRL - ENT Exam ENT Exam: Mucous Membranes Moist, Normal Exam - Neck Exam Neck Exam: Full ROM, Normal Inspection. absent: Lymphadenopathy - Respiratory Exam Respiratory Exam: Clear to Ausculation Bilateral, NORMAL BREATHING PATTERN. absent: Wheezes - Cardiovascular Exam Cardiovascular Exam: REGULAR RHYTHM, +S1, +S2. absent: Murmur - GI/Abdominal Exam GI & Abdominal Exam: Soft, Normal Bowel Sounds. absent: Guarding, Rigid, Tenderness, Distended - Extremities Exam Extremities Exam: Full ROM (no asterixis noted), Normal Capillary Refill, Normal Inspection. absent: Joint Swelling, Pedal Edema - Back Exam Back Exam: NORMAL INSPECTION - Neurological Exam Neurological Exam: Alert, Awake, Oriented x2 (person and place) - Psychiatric Exam Psychiatric exam: Normal Affect, Normal Mood - Skin Skin Exam: Dry, Intact, Normal Color, Warm Assessment and Plan - Assessment and Plan (Free Text) Assessment: 72 year old male with a PMH of decompensated EtOH cirrhosis c/b ascites and bleeding esophageal varices, h/o HBV, EtOH abuse, COPD and tobacco abuse, blindness and decreased hearing acuity who is admitted for sepsis and decreased PO intake. MELD score 12; Child Class B. Patient is a poor candidate for liver transplant given his baseline and psychosocial state. Plan: - patient's dose increased to Furosemide 40 mg PO QD and Spironolactone 100 mg PO QD - will monitor BP, Cr and electrolytes and adjust diuresis accordingly - cont lactulose, goal 1-2 BM's a day; d/c miralax and cont lactulose - Monitor BMP, Daily weights and I&O - cont low salt diet w/ fluid restriction <1.5L /day - Patient refused colonoscopy evaluation of polyps seen in 2017 - [facility] # provided to brother for outpatient follow-up with hepatologists - further recs per Dr. Oropeza Case was reviewed and discussed with attending, Dr. Oropeza <Deyanira Oropeza V - Last Filed: 11/05/18 22:31> Objective - Vital Signs/Intake and Output Vital Signs (last 24 hours): Temp Pulse Resp BP Pulse Ox 98.4 F 93 H 20 128/70 95 11/05/18 17:13 11/05/18 17:13 11/05/18 17:13 11/05/18 17:13 11/05/18 05:41 Intake and Output: 11/05/18 11/06/18 18:59 06:59 Intake Total 240 Balance 240 - Labs Labs: 11/05/18 06:15 11/05/18 06:30 PT 13.6 SECONDS (9.4-12.5) H 11/04/18 06:00 INR 1.20 11/04/18 06:00 APTT 35.7 Seconds (26.9-38.3) 11/01/18 12:50 Attending/Attestation - Attestation I have personally seen and examined this patient.: Yes I have fully participated in the care of the patient.: Yes I have reviewed all pertinent clinical information, including history, physical exam and plan: Yes Notes (Text): This is an addendum to the GI progress report dictated by the medical technologist chemistry. This patient was seen and evaluated along with the resident earlier today. This patient with multiple comorbidities as decompensated cirrhosis. Constipation. Anemia, history of colonic polyp refused to colonoscopy, history of GI bleeding before status post esophageal varices band ligation in the past. We would recommend to continue lactulose for constipation, titrate the dose of diuretics. Advised hepatology evaluation at the [facility] 11/05/18 22:25
[2018-11-05] MEDS: Dorzolamide 2% Opht Sol 10ml OD SCH ×2 (10:12→17:04)
--- NOTE | 2018-11-05 12:57 | PN ---
DATE: 11/05/2018 PULMONARY PROGRESS NOTE REFERRING PHYSICIAN: Evie Ponce MD SUBJECTIVE: The patient is seen sitting at bedside, eating, being fed by nursing staff. No acute distress. No overnight events reported. The patient reports feeling well this morning. No headache, rhinitis, cough, shortness of breath, chest pain, abdominal pain, nausea, vomiting, diarrhea, leg pain, or leg swelling reported. The patient had bowel movements this morning. OBJECTIVE: GENERAL: No acute distress. VITAL SIGNS: Blood pressure 108/70, pulse 105, temperature 97.9 and oxygen saturation 95% on room air. HEENT: Moist mucous membranes. Crowded airway. Small oral cavity. NECK: Supple. No JVD. LUNGS: Fair airflow bilaterally. CARDIOVASCULAR: S1 and S2. ABDOMEN: Soft and nontender. No distention. No organomegaly. EXTREMITIES: No bilateral lower extremity edema. NEUROLOGIC: Awake, alert and verbal. Following commands. MEDICATIONS: Reviewed. Brovana 15 mcg every 12 hours, Pulmicort 0.25 mg every 12 hours, Trusopt eyedrops twice a day, Lasix 40 mg daily, Neurontin 100 mg daily, lactulose 10 g twice a day, Protonix 40 mg daily, Zoloft 25 mg daily, Aldactone 100 mg daily and timolol twice a day. LABORATORY DATA: Reviewed. WBC 6.1, RBC 3.74, hemoglobin 10, hematocrit 31.9 and platelets 135. Sodium 136, potassium 4.4, chloride 104, carbon dioxide 25, anion gap 11, BUN 12, creatinine 0.7, GFR greater than 60, random glucose 117, calcium 8.8, total bilirubin 1.1, AST 57, ALT 35, alkaline phosphatase 240, total protein 7, albumin 2.7, globulin 4.2 and albumin-globulin ratio 0.6. IMPRESSION AND PLAN: Chronic obstructive lung disease, cirrhotic liver with ascites, history of esophageal varices, anemia, history of hepatitis B, alcohol abuse, blind, hard of hearing, history of hernia repair, history of tobacco use, history of recurrent ascites requiring paracentesis in the past. Continue Gastroenterology followup. Pulmonary point of view, continue inhaled bronchodilators. Head of bed elevated at 45 degrees, gastric prophylaxis, aspiration precaution. Continue sequential compression devices to bilateral lower extremities, as the patient cannot be placed on chemical prophylaxis due to recurrent anemia status. Fall precautions. Need to monitor, the patient hepatorenal failure. Recommend follow up labs in the morning. Recommend physical therapy, out of bed to chair. This patient was seen and examined with Dr. Atkins. Discussed assessment and plan as described above. This patient was seen and examined with Garry Gutierrez, nurse practitioner. Discussed assessment and plan as described above. Thank you for this consult and we will follow with you. Garry Gutierrez APN Theodore Atkins MD MTDAwais
[2018-11-05 17:14] VITALS: BP 128/70; PULSE 93; RESP 20; TEMP 98.4
--- NOTE | 2018-11-06 03:32 | DS ---
The patient is a 72-year-old male. The patient was seen and examined at the bedside on 11/05/2018. CHIEF COMPLAINT: Blood in the stool and abdominal pain. HISTORY OF PRESENT ILLNESS: Mr. Esteban Carrion is a 72-year-old male with past medical history of hypertension, COPD, CVA, blind and deaf, brought to the emergency room department because the patient had blood in the stool and having abdominal pain. The patient's family reported that he was vomiting also. The patient has history of cirrhosis of the liver, ethanol induced. We admitted the patient, did CAT scan of abdomen and pelvis, and chest x-ray. Seen by Dr. Atkins, childcare provider. Critical Care, Dr. Oropeza. Dr. Oropeza ordered endoscopy but patient refused. The patient is very deconditioned. The patient got physical therapy, suggested subacute rehab, then I had discussion done with patient, patient's [id number] and her son and they accepted, so transferred the patient to TCU. PAST MEDICAL HISTORY: Hypertension, COPD, CVA, blind, cataract, deafness, glaucoma, cirrhosis of the liver, depression and psychosis. FAMILY HISTORY: Father and mother, noncontributory. HABITS: Former smoker, now no smoking. Former alcoholic, now is not drinking. No drugs. ALLERGIES: THE PATIENT IS NOT ALLERGIC WITH ANY MEDICATIONS. HOME MEDICATIONS: Reviewed by me. REVIEW OF SYSTEMS: The patient was seen and examined at the bedside, looking comfortable. No fever. No chills. No hematuria. No hematochezia. No headache. No dizziness. No chest pain. No palpitations. Appetite improved. Sleep is getting better. Abdominal pain is getting better. No more vomiting. PHYSICAL EXAMINATION: VITAL SIGNS: Blood pressure 108/70, pulse 105, temperature 97.9, and oxygen saturation 95% room air. HEENT: Head is normocephalic and atraumatic. Eyes; PERRLA. Extraocular muscles intact. Conjunctivae clear. Nose patent. Mucous membrane moist. ABDOMEN: Supple. No carotid bruits. No JVD. No thyromegaly. CHEST: Bilateral symmetrical. HEART: S1 and S2 positive. LUNGS: Clear to auscultation. ABDOMEN: Soft. Bowel sounds present. No organomegaly. EXTREMITIES: No edema. No cyanosis. NEUROLOGIC: The patient awake and alert. Moving all four extremities. No focal deficits. MEDICATIONS: Brovana, Pulmicort, Lasix, Neurontin, lactulose, Protonix, Zoloft, and Aldactone. LABORATORY DATA: White blood cell 6.1, hemoglobin 10, hematocrit 31.9, and platelets 135. Sodium 136, potassium 4.4, BUN 12, creatinine 0.7, AST 57, and ALT 35. ASSESSMENT AND PLAN: Mr. Esteban Carrion is a 72-year-old male with chronic obstructive pulmonary disease, ethanol-induced liver cirrhosis with ascites. The patient has 2 times paracentesis done. History of esophageal varices. Anemia status post blood transfusion, history of hepatitis B, blindness, hearing problem, history of hernia repair, history of tobacco use, history of recurrent ascites requiring paracentesis. Plan is to continue gastroenterology followup and physical therapy. The patient is very deconditioned. Discharged to TCU, will continue treatment there. Discussion done with the family. We will follow up. Evie Ponce MD
== END 2018-11-05 17:58 | DRG 432 ==
LOC: ED 12:14 → ERH 14:40 → 2RNO 17:26
PROVIDERS: ADMIT Internal Medicine; ATTEND Internal Medicine
PROC: 3E0F7GC Introduction of Other Therapeutic Substance into Respiratory Tract, Via Natural or Artificial Opening (ICD-10-PCS; principal; 2018-11-02)
DX: K70.31 Alcoholic cirrhosis of liver with ascites (principal); I85.11 Secondary esophageal varices with bleeding; A41.9 Sepsis, unspecified organism; J44.9 Chronic obstructive pulmonary disease, unspecified; E86.0 Dehydration; I10 Essential (primary) hypertension; I25.10 Atherosclerotic heart disease of native coronary artery without angina pectoris; F10.10 Alcohol abuse, uncomplicated; K56.41 Fecal impaction; D64.9 Anemia, unspecified; F32.9 Major depressive disorder, single episode, unspecified; R94.5 Abnormal results of liver function studies; H54.8 Legal blindness, as defined in USA; H91.92 Unspecified hearing loss, left ear; H40.9 Unspecified glaucoma; H26.9 Unspecified cataract; F17.200 Nicotine dependence, unspecified, uncomplicated; Z86.73 Personal history of transient ischemic attack (TIA), and cerebral infarction without residual deficits; Z91.19 Patient's noncompliance with other medical treatment and regimen; Z86.010 Personal history of colon polyps

== ENCOUNTER 2018-11-05 17:58 | Inpatient (IN) | payer OTHER, MEDICAID ==
[2018-11-05 19:36] VITALS: BMI 15.6
[2018-11-05 23:29] VITALS: RESP 18
[2018-11-05] MEDS ORDERED: Influenza Vaccine 60 mcg/0.5 mL SYR (4YR UP) IM ONE (23:29)
[2018-11-05] MEDS ORDERED: Pneumococcal 23-Valent Vaccine IM ONE (23:29)
[2018-11-06] MEDS: Pantoprazole 40 mg EC Tab PO SCH (06:37)
[2018-11-06] MEDS: Arformoterol 15 mcg/2 ml Inh Sol IH SCH ×2 (07:13→20:12)
[2018-11-06] MEDS: Budesonide 0.25 mg/2 ml Inhal Susp UD IH SCH ×2 (07:14→20:12)
--- NOTE | 2018-11-06 07:14 | CP.PCM.CON ---
<José Antonio Hopkins - Last Filed: 11/06/18 21:36> History of Present Illness - History of Present Illness History of Present Illness: José Antonio Hopkins PGY2 GI Consult Note for Dr. Borges Reason for consult: LGIB Mr. Carrion is a 72 year old Russian male with a PMH of decompensated EtOH cirrhosis w/ ascites and bleeding esophageal varices, HBV infection, EtOH abuse, COPD and tobacco abuse, blindness and decreased hearing acuity who was admitted medically for abdominal pain, vomiting and blood in stools. CT abd showed no acute changes but did have moderate amount of stools. Patient was started on Miralax for constipation, and now is on Lactulose. He is also on Spironolactone and Lasix for his recurrent ascites, which is not an active issue in this admission (last paracentesis 10/13/18). Patient did not have any episodes of hematochezia during his admission. He was medically stabilized and is now in TCU for further rehab and strengthening. Patient denies any current symptoms of abdominal pain, chest pain, trouble breathing, vomiting or nausea, or any fevers/chills. PMH: as above PSH: Left hip, Hernia repair Meds: as per MAR, reviewed Allergies: NKDA SHx: Former tobacco and EtOH abuse per patient (40+ year use, but has not drank EtOH in more than 10 years), denies illicit drug use. lives w/ daughter at home (who is sick and requires 24hr aid); contact persons are brothers Mookie Carrion (#[phone]) or Hugh Carrion ([phone]). FamHx: Denied GI problems Endo: 04/21 - EGD - Grade 2 esophageal varices with recent hemorrhage s/p EVL 10/19 - Colonoscopy - AVMs, diverticulosis, polyps Review of Systems - Review of Systems All systems: reviewed and no additional remarkable complaints except (as perHPI) Past Patient History - Infectious Disease Hx of Infectious Diseases: None - Tetanus Immunizations Tetanus Immunization: Unknown - Past Social History Smoking Status: Former Smoker Alcohol: None Drugs: Denies Home Situation {Lives}: With Family - CARDIAC Hx Cardiac Disorders: Yes (CAD) Hx Hypertension: Yes - PULMONARY Hx Chronic Obstructive Pulmonary Disease (COPD): Yes - NEUROLOGICAL HX Cerebrovascular Accident: Yes - HEENT Hx HEENT Problems: Yes Hx Blind: Yes Hx Cataracts: Yes (both eyes) Hx Deafness: Yes (left ear) Hx Glaucoma: Yes (left eye) - RENAL Hx Chronic Kidney Disease: No - ENDOCRINE/METABOLIC Hx Endocrine Disorders: No - HEMATOLOGICAL/ONCOLOGICAL Hx Blood Disorders: No Hx Cirrhosis: Yes - INTEGUMENTARY Hx Dermatological Problems: No - MUSCULOSKELETAL/RHEUMATOLOGICAL Hx Falls: No - GASTROINTESTINAL Hx Gastrointestinal Disorders: Yes (CHOLELITHIASIS,COLITIS,ESOPHAGEAL VARICES,H/O PARACENTESIS,) - GENITOURINARY/GYNECOLOGICAL Hx Genitourinary Disorders: No Hx Reproductive Disorders: No - PSYCHIATRIC Hx Psychophysiologic Disorder: Yes Hx Depression: Yes Hx Psychosis: Yes Hx Substance Use: No - SURGICAL HISTORY Hx Orthopedic Surgery: Yes (l hip fx sx 10/20/16) Other/Comment: us guided paracenthesis 06/23/14. hernia repair 04/2018 - ANESTHESIA Hx Anesthesia: Yes Hx Anesthesia Reactions: No Hx Malignant Hyperthermia: No Meds Allergies/Adverse Reactions: Allergies Allergy/AdvReac Type Severity Reaction Status Date / Time No Known Allergies Allergy Verified 11/05/18 21:12 - Medications Medications: Current Medications Arformoterol Tartrate (Brovana) 15 mcg IH [id number] JUANITA; Protocol Budesonide (Pulmicort Respules) 0.25 mg IH [id number] JUANITA; Protocol Dorzolamide HCl (Trusopt) 0 ml OD BID JUANITA; Protocol Furosemide (Lasix) 40 mg PO DAILY JUANITA; Protocol Lactulose (Enulose) 10 gm PO BID JUANITA; Protocol Pantoprazole Sodium (Protonix Ec Tab) 40 mg PO 0600 JUANITA; Protocol Last Admin: 11/06/18 06:37 Dose: 40 mg Sertraline HCl (Zoloft) 50 mg PO DAILY JUANITA; Protocol Spironolactone (Aldactone) 100 mg PO DAILY JUANITA; Protocol Timolol Maleate (Timoptic 0.5% Ophth Soln) 0 drop OD BID JUANITA; Protocol Physical Exam - Constitutional Appears: Non-toxic, No Acute Distress, Cachectic, Chronically Ill - Head Exam Head Exam: ATRAUMATIC Additional comments: temporal wasting - Eye Exam Eye Exam: absent: Scleral icterus Additional comments: blind b/l - ENT Exam ENT Exam: Mucous Membranes Moist, Normal Exam Additional comments: poor dentition - Neck Exam Neck exam: Positive for: Full Rom, Normal Inspection - Respiratory Exam Respiratory Exam: NORMAL BREATHING PATTERN. absent: Wheezes, Respiratory Distress - Cardiovascular Exam Cardiovascular Exam: RRR, +S1, +S2 - GI/Abdominal Exam GI & Abdominal Exam: Normal Bowel Sounds, Soft. absent: Distended, Tenderness - Extremities Exam Extremities exam: Positive for: full ROM, normal inspection - Neurological Exam Neurological exam: Alert Additional comments: oriented x2 (person and place, not time) - Skin Skin Exam: Normal Color, Warm Results - Vital Signs Recent Vital Signs: Last Vital Signs Temp 99.2 F 11/05/18 22:52 Pulse 88 11/05/18 22:52 Resp 18 11/05/18 22:52 BP 115/66 11/05/18 22:52 Pulse Ox - Labs Result Diagrams: 11/06/18 09:00 11/06/18 09:00 Assessment & Plan - Assessment and Plan (Free Text) Assessment: 72 year old male with a PMH of decompensated EtOH cirrhosis c/b ascites and bleeding esophageal varices, h/o HBV, EtOH abuse, COPD and tobacco abuse, blindness and decreased hearing acuity who is admitted to TCU for conditioning following medical admission for sepsis and possible bloody stools. He is asymptomatic at this time. MELD score 17; Child Class B. Patient is a poor candidate for liver transplant given his baseline and psychosocial state. Plan: - cont PT rehab - cont furosemide 40 mg PO QD and Spironolactone 100 mg PO QD - will monitor BP, Cr and electrolytes and adjust diuresis accordingly - cont lactulose, goal 1-2 BM's a day; if patient has diarrhea, might consider switching to rifaximin - Monitor BMP, Daily weights and I&O - cont low salt diet w/ fluid restriction <1.5L /day - Patient refused colonoscopy evaluation of polyps seen in 2017 - [facility] # provided to brother for outpatient follow-up with hepatologists - hepatobiliary surgeon is consulted - further recs per Dr. Oropeza Case was reviewed and discussed with attending, Dr. Oropeza <Deyanira Oropeza V - Last Filed: 11/06/18 23:45> Meds - Medications Medications: Current Medications Arformoterol Tartrate (Brovana) 15 mcg IH [id number] [facility]; Protocol Last Admin: 11/06/18 20:12 Dose: 15 mcg Budesonide (Pulmicort Respules) 0.25 mg IH [id number] JUANITA; Protocol Last Admin: 11/06/18 20:12 Dose: 0.25 mg Dorzolamide HCl (Trusopt) 0 ml OD BID JUANITA; Protocol Last Admin: 11/06/18 17:17 Dose: 1 drop Furosemide (Lasix) 40 mg PO DAILY JUANITA; Protocol Last Admin: 11/06/18 10:03 Dose: 40 mg Lactulose (Enulose) 10 gm PO BID JUANITA; Protocol Last Admin: 11/06/18 17:16 Dose: 10 gm Pantoprazole Sodium (Protonix Ec Tab) 40 mg PO 0600 JUANITA; Protocol Last Admin: 11/06/18 06:37 Dose: 40 mg Sertraline HCl (Zoloft) 50 mg PO DAILY JUANITA; Protocol Last Admin: 11/06/18 10:05 Dose: 50 mg Spironolactone (Aldactone) 100 mg PO DAILY JUANITA; Protocol Last Admin: 11/06/18 10:03 Dose: 100 mg Timolol Maleate (Timoptic 0.5% [facility]) 0 drop OD BID JUANITA; Protocol Last Admin: 11/06/18 17:17 Dose: 1 drop Results - Vital Signs Recent Vital Signs: Last Vital Signs Temp 98.4 F 11/06/18 17:41 Pulse 94 H 11/06/18 17:41 Resp 18 11/06/18 17:41 BP 114/69 11/06/18 17:41 Pulse Ox 95 11/06/18 17:41 - Labs Result Diagrams: 11/06/18 09:00 11/06/18 09:00 Labs: Laboratory Results - last 24 hr 11/06/18 11/06/18 11/06/18 09:00 09:00 09:00 WBC 6.5 RBC 3.89 Hgb 10.5 L Hct 33.2 L MCV 85.3 MCH 27.0 MCHC 31.6 RDW 18.2 H Plt Count 125 PT 15.3 H INR 1.35 Sodium 132 Potassium 4.0 Chloride 102 Carbon Dioxide 23 Anion Gap 11 BUN 15 Creatinine 0.6 L Est GFR ( Amer) > 60 Est GFR (Non-Af Amer) > 60 Random Glucose 127 H Calcium 8.9 Magnesium 1.9 Total Bilirubin 1.5 H AST 46 ALT 34 Alkaline Phosphatase 242 H Total Protein 7.1 Albumin 2.9 L Globulin 4.2 Albumin/Globulin Ratio 0.7 L Attending/Attestation - Attestation I have personally seen and examined this patient.: Yes I have fully participated in the care of the patient.: Yes I have reviewed all pertinent clinical information: Yes Notes (Text): This is an addendum to the GI progress report dictated by the resident, The patient was seen and evaluated along with the resident earlier today 11/06/18 23:30olerating the diet. Continue the diuretics follow-up the electrolytes. Continue lactulose titrate to keep the bowel movements Colonoscopy if patient is agreeable to refused multiple times before even this admission.
--- NOTE | 2018-11-06 07:54 | CP.PCM.CON ---
<Helena Neville - Last Filed: 11/06/18 08:03> History of Present Illness - History of Present Illness History of Present Illness: HEPATOBILIARY SURGERY CONSULT NOTE FOR DR. ARMENTA 72yo M with PMHx of HTN, COPD, CVA, blind, deaf, alcoholic cirrhosis who presented to ED on 11/01 for blood in stool, abdominal pain, poor PO intake. CT Abd/Pelvis negative. Last Abdominal US on 10/12 showed liver parenchyma is heterogeneous with a nodular contour consistent with cirrhosis. Moderate amount of ascites in the upper abdomen. Pt has hx of multiple paracentesis in the past with last one on 10/13. Pt had endoscopy with banding of grade 11 esophageal varices and colonoscopy in 2017 showed AVM, polyps however patient has refused colonoscopies since then. Pt started on lactulose for constipation and diuretics. Since admission, pt has not had any more bloody BMs. He is currently in TCU. Review of Systems - Review of Systems All systems: reviewed and no additional remarkable complaints except (as per HPI) Past Patient History - Infectious Disease Hx of Infectious Diseases: None - Tetanus Immunizations Tetanus Immunization: Unknown - Past Social History Smoking Status: Former Smoker - CARDIAC Hx Cardiac Disorders: Yes (CAD) Hx Hypertension: Yes - PULMONARY Hx Chronic Obstructive Pulmonary Disease (COPD): Yes - NEUROLOGICAL HX Cerebrovascular Accident: Yes - HEENT Hx HEENT Problems: Yes Hx Blind: Yes Hx Cataracts: Yes (both eyes) Hx Deafness: Yes (left ear) Hx Glaucoma: Yes (left eye) - RENAL Hx Chronic Kidney Disease: No - ENDOCRINE/METABOLIC Hx Endocrine Disorders: No - HEMATOLOGICAL/ONCOLOGICAL Hx Blood Disorders: No Hx Cirrhosis: Yes - INTEGUMENTARY Hx Dermatological Problems: No - MUSCULOSKELETAL/RHEUMATOLOGICAL Hx Falls: No - GASTROINTESTINAL Hx Gastrointestinal Disorders: Yes (CHOLELITHIASIS,COLITIS,ESOPHAGEAL VARICES,H/O PARACENTESIS,) - GENITOURINARY/GYNECOLOGICAL Hx Genitourinary Disorders: No Hx Reproductive Disorders: No - PSYCHIATRIC Hx Psychophysiologic Disorder: Yes Hx Depression: Yes Hx Psychosis: Yes Hx Substance Use: No - SURGICAL HISTORY Hx Orthopedic Surgery: Yes (l hip fx sx 10/20/16) Other/Comment: us guided paracenthesis 06/23/14. hernia repair 04/2018 - ANESTHESIA Hx Anesthesia: Yes Hx Anesthesia Reactions: No Hx Malignant Hyperthermia: No Meds Allergies/Adverse Reactions: Allergies Allergy/AdvReac Type Severity Reaction Status Date / Time No Known Allergies Allergy Verified 11/05/18 21:12 - Medications Medications: Current Medications Arformoterol Tartrate (Brovana) 15 mcg IH [id number] JUANITA; Protocol Last Admin: 11/06/18 07:13 Dose: 15 mcg Budesonide (Pulmicort Respules) 0.25 mg IH [id number] JUANITA; Protocol Last Admin: 11/06/18 07:14 Dose: 0.25 mg Dorzolamide HCl (Trusopt) 0 ml OD BID JUANITA; Protocol Furosemide (Lasix) 40 mg PO DAILY JUANITA; Protocol Lactulose (Enulose) 10 gm PO BID JUANITA; Protocol Pantoprazole Sodium (Protonix Ec Tab) 40 mg PO 0600 JUANITA; Protocol Last Admin: 11/06/18 06:37 Dose: 40 mg Sertraline HCl (Zoloft) 50 mg PO DAILY JUANITA; Protocol Spironolactone (Aldactone) 100 mg PO DAILY JUANITA; Protocol Timolol Maleate (Timoptic 0.5% Ophth Soln) 0 drop OD BID JUANITA; Protocol Physical Exam - Constitutional Appears: Non-toxic, No Acute Distress - Head Exam Head Exam: ATRAUMATIC, NORMAL INSPECTION - Eye Exam Eye Exam: EOMI, Normal appearance - Respiratory Exam Respiratory Exam: NORMAL BREATHING PATTERN. absent: Respiratory Distress - Cardiovascular Exam Cardiovascular Exam: +S1, +S2 - GI/Abdominal Exam GI & Abdominal Exam: Soft. absent: Distended, Rebound, Rigid, Tenderness - Neurological Exam Neurological exam: Alert - Psychiatric Exam Psychiatric exam: Normal Affect, Normal Mood Results - Vital Signs Recent Vital Signs: Last Vital Signs Temp 99.2 F 11/05/18 22:52 Pulse 88 11/06/18 07:16 Resp 18 11/05/18 22:52 BP 115/66 11/05/18 22:52 Pulse Ox Assessment & Plan - Assessment and Plan (Free Text) Assessment: 72yo M with PMHx of HTN, COPD, CVA, blind, deaf, alcoholic cirrhosis who presented to ED on 11/01 for blood in stool, abdominal pain, poor PO intake. Hepatobiliary consulted for cirrhosis. MELD score = 9, Child-Laughlin Class B - Liver CT ordered w/ HCC protocol, 4 phase - No acute surgical intervention necessary - Patient may follow up with Dr. Armenta in his office for further management of his cirrhosis. - Discussed plan with Dr. Geovany Neville PGY-4 <Aguilar Armenta - Last Filed: 11/07/18 20:04> History of Present Illness - History of Present Illness History of Present Illness: All medical record entries made by the Scribe were at my direction. I have reviewed the chart and agree that the record accurately reflects my personal performance of the history, physical exam, medical decision making. Patient has, cirrhosis, sarcopenia, ascites. Ultrasound on my review bothersome, recommend HCC protocol 4 phase CAT scan. However, he is poorly compliant and frail. Unclear to me if he would even consider treatment Meds - Medications Medications: Current Medications Arformoterol Tartrate (Brovana) 15 mcg IH [id number] JUANITA; Protocol Last Admin: 11/07/18 07:17 Dose: 15 mcg Budesonide (Pulmicort Respules) 0.25 mg IH [id number] JUANITA; Protocol Last Admin: 11/07/18 07:17 Dose: 0.25 mg Dorzolamide HCl (Trusopt) 0 ml OD BID JUANITA; Protocol Last Admin: 11/07/18 17:24 Dose: 1 drop Furosemide (Lasix) 40 mg PO DAILY JUANITA; Protocol Last Admin: 11/07/18 09:53 Dose: 40 mg Lactulose (Enulose) 10 gm PO BID JUANITA; Protocol Last Admin: 11/07/18 17:24 Dose: 10 gm Pantoprazole Sodium (Protonix Ec Tab) 40 mg PO 0600 JUANITA; Protocol Last Admin: 11/07/18 05:07 Dose: 40 mg Sertraline HCl (Zoloft) 50 mg PO DAILY JUANITA; Protocol Last Admin: 11/07/18 09:53 Dose: 50 mg Spironolactone (Aldactone) 100 mg PO DAILY JUANITA; Protocol Last Admin: 11/07/18 09:53 Dose: 100 mg Timolol Maleate (Timoptic 0.5% Oph Soln) 0 drop OD BID JUANITA; Protocol Last Admin: 11/07/18 17:24 Dose: 1 drop Results - Vital Signs Recent Vital Signs: Last Vital Signs Temp 98.6 F 11/07/18 16:00 Pulse 84 11/07/18 16:00 Resp 18 11/07/18 16:00 BP 111/64 11/07/18 16:00 Pulse Ox 96 11/07/18 16:00 - Labs Result Diagrams: 11/06/18 09:00 11/06/18 09:00
[2018-11-06 09:12] LABS: HEMOGLOBIN 10.5 g/dL (14.0-18.0); MEAN CELL VOLUME 85.3 fl (80.0-105.0); MEAN CORPUSCULAR HGB CONC 31.6 g/dl (31.0-37.0); PLATELET COUNT 125 10^3/uL (120.0-450.0); RBC 3.89 10^6/uL (3.5-6.1); RED CELL DISTRIBUTION WIDTH 18.2 % (11.5-14.5); WHITE BLOOD COUNT 6.5 10^3/uL (4.5-11.0)
[2018-11-06 09:21] LABS: INR 1.35; PROTHROMBIN TIME 15.3 SECONDS (9.4-12.5)
[2018-11-06 09:39] LABS: ALB/GLOB RATIO 0.7 (1.1-1.8); ALBUMIN 2.9 g/dL (3.0-4.8); ALT/SGPT 34 U/L (7-56); AST/SGOT 46 U/L (17-59); BLOOD UREA NITROGEN 15 mg/dL (7-21); CALCIUM 8.9 mg/dL (8.4-10.5); GFR NON-AFRICAN AMERICAN > 60
[2018-11-06] MEDS ORDERED: Dorzolamide 2%/Timolol 0.5% 100 DROP/10 ML BOTTLE OU SCH (10:00)
[2018-11-06] MEDS: Dorzolamide 2% Opht Sol 10ml OD SCH ×2 (10:05→17:17)
--- NOTE | 2018-11-06 11:56 | CON ---
DATE: 11/06/2018 PULMONARY CONSULT NOTE REFERRING PHYSICIAN: Evie Ponce MD REASON FOR CONSULT: Chronic lung disease. HISTORY OF PRESENT ILLNESS: This is a 72-year-old male with past medical history significant for chronic obstructive lung disease, active smoker, hypertension, history of stroke. The patient is blind and hard of hearing, cirrhotic liver from ethanol abuse, recurrent GI bleed with esophageal gastric varices. The patient came into the emergency room with nausea, vomiting. The patient was followed by GI, where he refused to have endoscopy done. The patient presently admitted to [facility] for rehabilitation as the patient is deconditioned and requires physical therapy. PAST MEDICAL HISTORY: Hypertension, COPD, CVA, blind, cataracts, hard of hearing, glaucoma, cirrhosis of liver, depression, psychosis and alcohol abuse. FAMILY HISTORY: No significant cardiopulmonary disease reported. SOCIAL HISTORY: History of smoking and excessive alcohol use. ALLERGIES: NO KNOWN ALLERGIES. MEDICATIONS: Reviewed. Brovana 50 mcg every 12 hours, Pulmicort 0.25 mg inhalation every 12 hours, Trusopt eyedrops twice a day, Lasix 40 mg daily, lactulose 10 g twice a day, Protonix 40 mg daily, Zoloft 50 mg daily, spironolactone 100 mg daily and timolol eyedrops twice a day. REVIEW OF SYSTEMS: No headache, rhinitis, cough, shortness of breath, chest pain, abdominal pain, nausea, vomiting, diarrhea, leg pain or leg swelling reported. The patient does report feeling tired this morning. He states he did not speak well last night, because he just kept thinking. PHYSICAL EXAMINATION: GENERAL: No acute distress. VITAL SIGNS: Blood pressure 128/78, pulse 99, temperature 98.9, oxygen saturation 94% on room air. HEENT: Moist mucous membranes. Crowded airway. NECK: Supple. No JVD. LUNGS: Fair airflow bilaterally. CARDIOVASCULAR: S1 and S2. ABDOMEN: Soft. No distention. EXTREMITIES: No bilateral lower extremity edema. NEUROLOGIC: Awake, alert and verbal. Following commands. LABORATORY DATA: Reviewed. WBC 6.5, RBC 3.89, hemoglobin 10.5, hematocrit 33.2 and platelets 125. PT 15.3, INR 1.35, sodium 132, potassium 4.0, chloride 102, carbon dioxide 23, anion gap 11, BUN 15, creatinine 0.6, GFR greater than 60, random glucose 127, calcium 8.9, magnesium 1.9, total bilirubin 1.5. AST 46, ALT 34, alkaline phosphatase 242. Total protein 7.1, albumin 2.9, globulin 4.2, albumin and globulin ratio 0.7. IMPRESSION AND PLAN: Chronic obstructive lung disease, cirrhotic liver with ascites, history of esophageal varices, anemia, history of hepatitis B, alcohol abuse, blind, hard of hearing, history of tobacco use, history of hernia repair. The patient has history of recurrent ascites requiring paracentesis in the past. Pulmonary point of view, continue inhaled bronchodilators, gastric prophylaxis, sequential compression devices to bilateral lower extremities, as the patient cannot be on chemical prophylaxis due to history of gastrointestinal bleed, anemia. Keep head of bed elevated at 45 degrees, continue gastrointestinal followup, aspiration precautions, fall precautions. Need to monitor labs closely, physical therapy. This patient was seen and examined with Dr. Atkins. Discussed assessment and plan as described above. This patient was seen and examined with Garry Gutierrez, nurse practitioner. Discussed assessment and plan as described above. Thank you for this consult. We will follow with you. Garry Gutierrez APN Theodore Atkins MD
[2018-11-07] MEDS: Pantoprazole 40 mg EC Tab PO SCH (05:07)
[2018-11-07] MEDS: Arformoterol 15 mcg/2 ml Inh Sol IH SCH ×2 (07:17→20:28)
[2018-11-07] MEDS: Budesonide 0.25 mg/2 ml Inhal Susp UD IH SCH ×2 (07:17→20:28)
--- NOTE | 2018-11-07 08:26 | HP ---
DATE OF EXAM: 11/06/2018 The patient was seen and examined at the bedside on 11/06/2018. CHIEF COMPLAINT: Coughing, back pain, shortness of breath, and deconditioned. HISTORY OF PRESENT ILLNESS: Mr. Esteban Carrion is a 72-year-old male with past medical history significant for chronic obstructive pulmonary disease, active smoker, history of ethanol abuse, cirrhosis of the liver, history of stroke, noncompliant, history of ascites, status post paracentesis x2, history of blindness and hearing problem, was admitted on medical floor with altered mental status and found to have ammonia level was high. GI was involved, got lactulose ammonia level decreased. The patient started eating, appetite improved, but is very deconditioned and lost weight, now we transferred the patient to TCU for continuity of care and for physical therapy. PAST MEDICAL HISTORY: As above. History of altered mental status due to increase ammonia level, depression, history of ethanol abuse, hypertension, COPD, CVA, blind, has cataracts, hard of hearing, glaucoma, cirrhosis of the liver, ascites, and paracentesis. FAMILY HISTORY: Father and mother, noncontributory. HABITS: History of smoking, yes. History of ethanol abuse, yes. Drugs, no. ALLERGIES: THE PATIENT IS NOT ALLERGIC WITH ANY MEDICATIONS. REVIEW OF SYSTEMS: The patient was seen and examined at the bedside. Looking comfortable. No fever. No chills. No hematuria. No hematochezia. No headache. No dizziness. No chest pain. No palpitation. Coughing little bit, having back pain. Ultrasound of the liver as per request from the liver specialist. PHYSICAL EXAMINATION: VITAL SIGNS: Blood pressure 128/70, pulse 100, temperature 98.9, and oxygen saturations 94% on room air. HEENT: Head; normocephalic and atraumatic. Eyes; PERRLA. Extraocular muscles intact. Conjunctivae clear. Nose patent. Mucous membranes moist. NECK: Supple. No carotid bruits. No JVD or thyromegaly. CHEST: Bilaterally symmetrical. HEART: S1 and S2 positive. LUNGS: Clear to auscultation. ABDOMEN: Soft. Bowel sounds present. No organomegaly. EXTREMITIES: No edema. No cyanosis. NEUROLOGICAL: The patient is awake, alert, and follows simple commands. LABORATORY DATA: White blood cell 6.5, hemoglobin 10.5, hematocrit 33.2, and platelets 125. Sodium 132, potassium 4, BUN 15, and creatinine 0.6. AST 46 and ALT 34. MEDICATIONS: Brovana, Pulmicort, eyedrops, Lasix, lactulose, Protonix, Zoloft, spironolactone, and timolol. ASSESSMENT AND PLAN: Mr. Esteban Carrion is a 72-year-old male with multiple medical problems with chronic obstructive lung disease, cirrhosis of the liver with ascites, history of esophageal varices. history of upper gastrointestinal bleeding, history of lower gastrointestinal bleeding, anemia, history of hepatitis B, alcohol abuse, blind, hard of hearing, history of tobacco abuse and ethanol abuse, hernia repair, history of ascites, and status post paracentesis x2. Now, the patient is in Transitional Care Unit, we called consult with wealth management consultant, Dr. Aguilar Wilkinson, he sent the patient for ultrasound. Family was looking for liver transplant. Reviewed Dr. Oropeza's notes. I will make gi to talk to the family. Gastrointestinal and deep vein thrombosis prophylaxes. Repeat labs. Continue physical therapy. We will follow up. Evie Ponce MD [email or web address]
[2018-11-07] MEDS: Dorzolamide 2% Opht Sol 10ml OD SCH ×2 (09:54→17:24)
--- NOTE | 2018-11-07 12:08 | PN ---
DATE: 11/07/2018 PULMONARY PROGRESS NOTE REFERRING PHYSICIAN: Dr. Evie Ponce. SUBJECTIVE: The patient is seen lying in bed. No acute distress. No overnight events reported. The patient had physical therapy yesterday. No headache, rhinitis, cough, shortness of breath, chest pain, abdominal pain, nausea, vomiting, diarrhea, leg pain, or leg swelling reported. OBJECTIVE: GENERAL: No acute distress. VITAL SIGNS: Blood pressure 122/70, pulse 94, temperature 98.4, and oxygen saturation 95% on room air. HEENT: Moist mucous membranes. Crowded airway. NECK: Supple. No JVD. LUNGS: Fair airflow bilaterally. CARDIOVASCULAR: S1 and S2. ABDOMEN: Soft. No distention. EXTREMITIES: No bilateral lower extremity edema. NEUROLOGIC: Awake, alert, and verbal. Follow commands. MEDICATIONS: Reviewed. Brovana 15 mcg inhalation every 12 hours, Pulmicort 0.25 mg inhalation every 12 hours, Trusopt eyedrops twice a day, Lasix 40 mg daily, lactulose 10 g twice a day, Protonix 40 mg daily, Zoloft 50 mg daily, spironolactone 100 mg daily, and timolol eyedrops twice a day. LABORATORY DATA: Reviewed. No new labs. IMPRESSION AND PLAN: Chronic obstructive lung disease, cirrhotic liver with ascites, history of esophageal varices, anemia, history of hepatitis B, hard of hearing, blind, alcohol abuse history, history of tobacco use, and history of hernia repair. The patient has history of recurrent ascites, requiring paracentesis in the past. Pulmonary point of view, continue inhaled bronchodilators and sequential compression devices to bilateral lower extremities as the patient cannot be on chemical prophylaxis due to history of gastrointestinal bleed and anemia. Head of bed elevated at 45 degrees. Continue Gastroenterology followup, aspiration precautions, and fall precautions. Continue physical therapy. We will order labs to be done in the morning. Case discussed with Dr. Ponce this morning. This patient was seen and examined with Dr. Atkins. Discussed assessment and plan as described above. This patient was seen and examined with Garry Gutierrez, nurse practitioner. Discussed assessment and plan as described above. Thank you for this consult. We will follow with you. Garry Gutierrez APN Theodore Atkins MD [facility] # [phone]
--- NOTE | 2018-11-07 13:25 | CP.PCM.PN ---
<Hung Wilson - Last Filed: 11/07/18 15:46> Subjective - Date & Time of Evaluation Date of Evaluation: 11/07/18 Time of Evaluation: 13:24 - Subjective Subjective: Surgery Progress Note for Dr. Rodarte 72M seen and evaluated at bedside this morning. No acute events overnight. Patient had family and estimator and drafter at bedside praying together. Objective - Vital Signs/Intake and Output Vital Signs (last 24 hours): Temp Pulse Resp BP Pulse Ox 98.4 F 94 H 18 122/70 95 11/06/18 17:41 11/06/18 17:41 11/06/18 17:41 11/07/18 09:53 11/06/18 17:41 - Medications Medications: Current Medications Arformoterol Tartrate (Brovana) 15 mcg IH [id number] JUANITA; Protocol Last Admin: 11/07/18 07:17 Dose: 15 mcg Budesonide (Pulmicort Respules) 0.25 mg IH [id number] JUANITA; Protocol Last Admin: 11/07/18 07:17 Dose: 0.25 mg Dorzolamide HCl (Trusopt) 0 ml OD BID JUANITA; Protocol Last Admin: 11/07/18 09:54 Dose: 1 drop Furosemide (Lasix) 40 mg PO DAILY JUANITA; Protocol Last Admin: 11/07/18 09:53 Dose: 40 mg Lactulose (Enulose) 10 gm PO BID JUANITA; Protocol Last Admin: 11/07/18 09:53 Dose: 10 gm Pantoprazole Sodium (Protonix Ec Tab) 40 mg PO 0600 JUANITA; Protocol Last Admin: 11/07/18 05:07 Dose: 40 mg Sertraline HCl (Zoloft) 50 mg PO DAILY JUANITA; Protocol Last Admin: 11/07/18 09:53 Dose: 50 mg Spironolactone (Aldactone) 100 mg PO DAILY JUANITA; Protocol Last Admin: 11/07/18 09:53 Dose: 100 mg Timolol Maleate (Timoptic 0.5% Oph Soln) 0 drop OD BID JUANITA; Protocol Last Admin: 11/07/18 09:53 Dose: 1 drop - Labs Labs: 11/06/18 09:00 11/06/18 09:00 PT 15.3 SECONDS (9.4-12.5) H 11/06/18 09:00 INR 1.35 11/06/18 09:00 - Constitutional Appears: Non-toxic, No Acute Distress - Head Exam Head Exam: ATRAUMATIC, NORMAL INSPECTION, NORMOCEPHALIC - ENT Exam ENT Exam: Mucous Membranes Dry - Respiratory Exam Respiratory Exam: NORMAL BREATHING PATTERN. absent: Wheezes, Respiratory Distress - Cardiovascular Exam Cardiovascular Exam: REGULAR RHYTHM, +S1, +S2. absent: Murmur - GI/Abdominal Exam GI & Abdominal Exam: Distended, Soft, Normal Bowel Sounds. absent: Tenderness - Neurological Exam Neurological Exam: Alert, Awake - Psychiatric Exam Psychiatric exam: Normal Affect, Normal Mood - Skin Skin Exam: Dry, Intact, Normal Color, Warm Assessment and Plan - Assessment and Plan (Free Text) Assessment: 72M, PMH of alcohol abuse and cirrhosis, presented w/ abdominal pain Plan: Requested outpatient CT scan with IV contrast - unfortunately patient refused IV and we were unable to get a CT scan to further characterize the severity of his illness Patient would benefit from triple phase CT scan Continue medical management at this time No acute surgical intervention at this time D/w Dr. East PGY1 <Aguilar Bonilla N - Last Filed: 11/10/18 17:21> Objective - Vital Signs/Intake and Output Vital Signs (last 24 hours): Temp Pulse Resp BP Pulse Ox 98.6 F 84 18 116/63 96 11/07/18 16:00 11/07/18 16:00 11/07/18 16:00 11/08/18 09:12 11/07/18 16:00 - Labs Labs: 11/06/18 09:00 11/06/18 09:00 PT 15.3 SECONDS (9.4-12.5) H 11/06/18 09:00 INR 1.35 11/06/18 09:00 Assessment and Plan - Assessment and Plan (Free Text) Plan: All medical record entries made by the resident were at my direction. I have reviewed the chart and agree that the record accurately reflects my personal performance of the history, physical exam, and medical decision making.
[2018-11-07 17:04] VITALS: PULSE 84; TEMP 98.6; O2SAT 96
--- NOTE | 2018-11-07 20:13 | PN ---
DATE: 11/07/2018 SUBJECTIVE: The patient is a 72-year-old male. The patient was seen and examined at the bedside on 11/07/2018. Looking comfortable. No change in the status. No fever. No chills. No hematuria. No hematochezia. No headache. No dizziness. No chest pain. No palpitation. PHYSICAL EXAMINATION: VITAL SIGNS: Temperature 98.4, pulse 94, respiratory rate 18, blood pressure 122/70, pulse oximetry 95%. HEENT: Head: Normocephalic, atraumatic. Eyes: PERRLA. Extraocular muscles are intact. Conjunctivae clear. Nose patent. Mucus membrane moist. NECK: Supple. No carotid bruits, JVD or thyromegaly. CHEST: Bilaterally symmetrical. HEART: S1 and S2 positive. LUNGS: Clear to auscultation. ABDOMEN: Soft. Bowel sounds present. No organomegaly. EXTREMITIES: No edema. No cyanosis. NEUROLOGICAL: The patient is awake and alert. Moving all four extremities. No focal deficits. MEDICATIONS: Brovana, Pulmicort, Lasix, lactulose, Protonix, Zoloft, Aldactone, timolol. LABORATORY DATA: White blood cell 6.5, hemoglobin 10.5, hematocrit 33.2, and platelets 125. Sodium 132, potassium 4, BUN 15, and creatinine 0.6. Glucose 127. ASSESSMENT AND PLAN: Mr. Esteban Carrion, a 72-year-old male with anemia, hyperglycemia, has alcohol abuse, cirrhosis of the liver, seen by Dr. Rodarte. They want CT scan of the liver with intravenous contrast, but the patient refused. I will try to reorder that. They will need CAT of the liver to further characterize the severity of his illness. According to Dr. Rodarte, no surgical intervention right now. Seen by park landscape architect; history of chronic obstructive pulmonary disease, esophageal varices, upper gastrointestinal bleeding, lower gastrointestinal bleeding, anemia, history of hepatitis B, hard of hearing, blind, history of ethanol abuse, history of hernia repair, urged to quit smoking and drinking; history of ascites requiring paracentesis in the past x2, getting physical therapy. Gastrointestinal and deep venous thrombosis prophylaxes. Repeat labs. We will follow up. Evie Ponce MD [facility] # [id number]
[2018-11-08] MEDS: Pantoprazole 40 mg EC Tab PO SCH (05:32)
[2018-11-08] MEDS: Arformoterol 15 mcg/2 ml Inh Sol IH SCH (07:47)
[2018-11-08] MEDS: Budesonide 0.25 mg/2 ml Inhal Susp UD IH SCH (07:48)
[2018-11-08] MEDS: Dorzolamide 2% Opht Sol 10ml OD SCH (09:12)
[2018-11-08 09:13] VITALS: BP 116/63
--- NOTE | 2018-11-08 10:07 | PN ---
DATE: 11/08/2018 PULMONARY PROGRESS NOTE REFERRING PHYSICIAN: Evie Ponce MD SUBJECTIVE: The patient is seen sitting up in bed, eating breakfast, being fed by nursing staff. No acute distress. No overnight events reported. No headache, rhinitis, cough, shortness of breath, chest pain, abdominal pain, nausea, vomiting, diarrhea, leg pain, leg swelling reported. PHYSICAL EXAMINATION: VITAL SIGNS: Blood pressure 111/64, pulse 84, temperature 98.6, and oxygen saturation 96 on room air. GENERAL: No acute distress. HEENT: Moist mucous membranes, carotid airway. NECK: Supple. No JVD. LUNGS: Fair air flow bilaterally. CARDIOVASCULAR: S1 and S2. ABDOMEN: Soft. No distention. EXTREMITIES: No bilateral lower extremity edema. NEUROLOGIC: Awake and alert, verbal, and following commands. MEDICATIONS: Reviewed. Brovana 15 mcg every 12 hours, Pulmicort 0.25 mg ever 12 hours, dorzolamide eye drops twice a day, Lasix 40 mg daily, lactulose 10 g twice a day, Protonix 40 mg daily, Zoloft 50 mg daily, spironolactone 100 mg daily, and Timolol eye drops twice a day. LABORATORY DATA: Reviewed. No new labs since yesterday. IMPRESSION AND PLAN: Chronic obstructive lung disease, history of esophageal varices, anemia, history of hepatitis B, cirrhotic liver with ascites, alcohol abuse history, history of hernia repair, history of tobacco use, hard of hearing, blind. The patient also has history of recurrent ascites, requiring paracentesis in the past. From pulmonary point of view, continued to have bronchodilators, sequential compression devices to bilateral lower extremities. The patient cannot be on chemical prophylaxis due to history of gastrointestinal bleed, anemia, had the bed elevated at 45 degrees. Continue gastrointestinal followup. Fall precautions. Aspiration precautions. Continue physical therapy. Laboratories, were ordered to be done this morning, were not drawn. We will order laboratories to be done in the morning. This patient was seen and examined with Dr. Atkins. Discussed assessment and plan as described above. The patient was seen and examined with Garry Gutierrez, nursing practitioner. Discussed assessment and plan as described above. Thank you for this consult. We will follow with you. Garry Gutierrez APN Theodore Atkins MD [facility] # [id number]
== END 2018-11-08 15:52 | disposition short-term general hospital (02) | DRG 433 ==
LOC: TRCU 17:58
PROVIDERS: ADMIT Internal Medicine; ATTEND Internal Medicine
PROC: F07Z9FZ Gait Training/Functional Ambulation Treatment using Assistive, Adaptive, Supportive or Protective Equipment (ICD-10-PCS; principal; 2018-11-06)
PROC: F07M6ZZ Therapeutic Exercise Treatment of Musculoskeletal System - Whole Body (ICD-10-PCS; 2018-11-06)
PROC: F08Z1ZZ Dressing Techniques Treatment (ICD-10-PCS; 2018-11-06)
PROC: F08Z0ZZ Bathing/Showering Techniques Treatment (ICD-10-PCS; 2018-11-06)
PROC: F08Z3ZZ Feeding/Eating Treatment (ICD-10-PCS; 2018-11-06)
DX: K70.31 Alcoholic cirrhosis of liver with ascites (principal); I85.00 Esophageal varices without bleeding; D64.9 Anemia, unspecified; F10.10 Alcohol abuse, uncomplicated; H40.9 Unspecified glaucoma; H54.7 Unspecified visual loss; H91.90 Unspecified hearing loss, unspecified ear; I10 Essential (primary) hypertension; I25.10 Atherosclerotic heart disease of native coronary artery without angina pectoris; I86.4 Gastric varices; J44.9 Chronic obstructive pulmonary disease, unspecified; K59.00 Constipation, unspecified; M62.84 Sarcopenia; Z86.73 Personal history of transient ischemic attack (TIA), and cerebral infarction without residual deficits; Z87.891 Personal history of nicotine dependence; Z91.19 Patient's noncompliance with other medical treatment and regimen

== ENCOUNTER 2018-11-06 08:57 | Outpatient (CLI) | payer MEDICARE, MEDICAID | END 2018-11-06 08:58 | disposition home or self-care (01) | LOC: RAD 08:57 ==

== ENCOUNTER 2018-11-08 12:57 | Inpatient (IN) | payer MEDICARE, MEDICAID ==
[2018-11-08 13:14] VITALS: BMI 20.9
[2018-11-08] MEDS ORDERED: Sodium Chloride 0.9% 500 ML IV STA ×3 (13:15→13:33)
--- NOTE | 2018-11-08 14:19 | ED PDOC ---
Arrival/HPI - General Chief Complaint: GI Problem Time Seen by Provider: 11/08/18 12:59 Historian: Patient - History of Present Illness Narrative History of Present Illness (Text): 11/08/18 14:21 A 72 year old male, whose past medical history includes liver cirrhosis and endoscopy(showing and confirming esophageal varices), presents to the emergency department complaining of bloody vomiting. Patient was in the TCU unit, where he had two episodes of bright red blood vomiting. The medical videographer saw patient and stated patient needed to go to ER for evaluation. Last blood work patient had performed showed hemoglobin to be 10. Patient admits to vomiting blood, and denies any headache, dizziness, chest pain, shortness of breath, abdominal pain, or any other complaints at this time. Also, Dr. Hernandez has patient placed on spironolactone, lasix, and low sodium diet. TORIE Oropeza PMD Rosario Past Medical History - Provider Review Nursing Documentation Reviewed: Yes - Infectious Disease Hx of Infectious Diseases: None - Tetanus Immunization Tetanus Immunization: Unknown - Past Medical History Past Medical History: No Previous - Cardiac Hx Cardiac Disorders: Yes (CAD) Hx Hypertension: Yes - Pulmonary Hx Chronic Obstructive Pulmonary Disease (COPD): Yes - Neurological HX Cerebrovascular Accident: Yes - HEENT Hx HEENT Disorder: Yes Hx Blind: Yes Hx Cataracts: Yes (both eyes) Hx Deafness: Yes (left ear) Hx Glaucoma: Yes (left eye) - Renal Hx Renal Disorder: No - Endocrine/Metabolic Hx Endocrine Disorders: No - Hematological/Oncological Hx Blood Disorders: No Hx Cirrhosis: Yes - Integumentary Hx Dermatological Disorder: No - Musculoskeletal/Rheumatological Hx Falls: No - Gastrointestinal Hx Gastrointestinal Disorders: Yes (CHOLELITHIASIS,COLITIS,ESOPHAGEAL VARICES,H/O PARACENTESIS,) - Genitourinary/Gynecological Hx Genitourinary Disorders: No Hx Reproductive Disorders: No - Psychiatric Hx Psychophysiologic Disorder: Yes Hx Depression: Yes Hx Psychosis: Yes Hx Substance Use: No - Past Surgical History Past Surgical History: No Previous - Surgical History Hx Orthopedic Surgery: Yes (l hip fx sx 10/20/16) Other/Comment: us guided paracenthesis 06/23/14. hernia repair 04/2018 - Anesthesia Hx Anesthesia: Yes Hx Anesthesia Reactions: No Hx Malignant Hyperthermia: No - Suicidal Assessment Feels Threatened In Home Enviroment: No Family/Social History - Physician Review Nursing Documentation Reviewed: Yes Family/Social History: No Known Family HX Smoking Status: Former Smoker Hx Alcohol Use: Yes (former) Hx Substance Use: No Hx Substance Use Treatment: No Allergies/Home Meds Allergies/Adverse Reactions: Allergies No Known Allergies Allergy (Verified 11/08/18 13:27) Home Medications: Home Meds Medication Instructions Recorded Confirmed Dorzolamide 2%/Timolol 0.5% 1 drop BOTHEYES BID 01/15/18 11/08/18 [Cosopt 2%-0.5% Opht] Latanoprost [Xalatan] 1 drop BOTHEYES DAILY 01/15/18 11/08/18 Sertraline [Zoloft] 1 tab PO DAILY 01/15/18 11/08/18 Review of Systems - Physician Review All systems were reviewed & negative as marked: Yes - Review of Systems Respiratory: absent: SOB Cardiovascular: absent: Chest Pain Gastrointestinal: Vomiting (2 episodes of bright red vomiting). absent: Abdominal Pain Neurological: absent: Headache, Dizziness Physical Exam Vital Signs Reviewed: Yes Vital Signs Temp Pulse Resp BP Pulse Ox 11/08/18 13:12 98.0 F 86 16 120/68 98 Temperature: Afebrile Blood Pressure: Normal Pulse: Regular Respiratory Rate: Tachypneic Appearance: Positive for: Other (blood on chest from vomiting episodes) Pain Distress: Mild Mental Status: Positive for: Alert and Oriented X 3 - Systems Exam Head: Present: Atraumatic, Normocephalic Pupils: Present: PERRL Extroacular Muscles: Present: EOMI Conjunctiva: Present: Normal Mouth: Present: Moist Mucous Membranes Neck: Present: Normal Range of Motion Respiratory/Chest: Present: Clear to Auscultation, Good Air Exchange. No: Respiratory Distress, Accessory Muscle Use Cardiovascular: Present: Regular Rate and Rhythm, Normal S1, S2. No: Murmurs Abdomen: No: Tenderness, Distention, Peritoneal Signs Back: Present: Normal Inspection Upper Extremity: Present: Normal Inspection. No: Cyanosis, Edema Lower Extremity: Present: Normal Inspection. No: Edema Neurological: Present: GCS=15, CN II-XII Intact, Speech Normal Skin: Present: Warm, Dry, Normal Color. No: Rashes Psychiatric: Present: Alert, Oriented x 3, Normal Insight, Normal Concentration Medical Decision Making ED Course and Treatment: 11/08/18 14:24 Impression: 72 year old male with two episodes of bright red bloody vomiting. Plan: -- EKG -- Chest X-ray -- Labs -- IV Fluids -- Zofran -- Protonix -- Urinalysis -- Reassess and disposition Progress Notes: Labs reviewed : wbc nl, hgb 11. CXR : b/l perihilar infiltrates/scarring, as per radiology reading. EKG : NSR at 87 bpm, LAD, no acute ST changes. Zithromax 1 g IV and rocephin 1 g IV ordered. Blood cx ordered. Case d/w Dr. Ponce, agrees with plan for admission for upper GI bleed and pneumonia, with consults to Dr. Oropeza for GI and Dr. Atkins for pulmonary. On re-evaluation, patient remains awake and alert, VSS, patient notified of plan for admission. - RAD Interpretation Radiology Orders: 11/08/18 13:33 CHEST PORTABLE [RAD] Stat - Medication Orders Current Medication Orders: Discontinued Medications Sodium Chloride (Sodium Chloride 0.9%) 500 mls @ 500 mls/hr IV .Q1H STA Stop: 11/08/18 14:14 Ondansetron HCl (Zofran Inj) 4 mg IVP STAT STA Stop: 11/08/18 13:16 Pantoprazole Sodium (Protonix Inj) 80 mg IVP STAT STA Stop: 11/08/18 13:22 - PA / ROGUER / Resident Statement MD/ has reviewed & agrees with the documentation as recorded. - Scribe Statement The provider has reviewed the documentation as recorded by the Vincent Brown Provider Scribe Attestation: All medical record entries made by the Vincent were at my direction and personally dictated by me. I have reviewed the chart and agree that the record accurately reflects my personal performance of the history, physical exam, medical decision making, and the department course for this patient. I have also personally directed, reviewed, and agree with the discharge instructions and disposition. Disposition/Present on Arrival - Present on Arrival Any Indicators Present on Arrival: No History of DVT/PE: No History of Uncontrolled Diabetes: No Urinary Catheter: No History of Decub. Ulcer: No History Surgical Site Infection Following: None - Disposition Have Diagnosis and Disposition been Completed?: Yes Diagnosis: Upper GI bleeding, Pneumonia Disposition: HOSPITALIZED Disposition Time: 15:00 Patient Plan: Admission Patient Problems: Current Active Problems Problem Status Onset Gastrointestinal bleeding, upper Acute Pneumonia Acute Condition: STABLE
--- NOTE | 2018-11-08 14:19 | RAD ---
HISTORY: vomiting COMPARISON: Chest x-ray performed 11/01/18 TECHNIQUE: Chest, one view. FINDINGS: Hypoinflation. Patient's chin obscures evaluation of the lung apices, in particular the right lung apex. LUNGS: Bilateral perihilar infiltrates/scarring. PLEURA: No significant pleural effusion identified. No definite pneumothorax . CARDIOVASCULAR: Heart size appears within normal limits. Atherosclerotic calcifications of the aorta. OSSEOUS STRUCTURES: Osseous demineralization. Degenerative changes. VISUALIZED UPPER ABDOMEN: Unremarkable. OTHER FINDINGS: None. IMPRESSION: Bilateral perihilar infiltrates/scarring.
[2018-11-08 14:55] LABS: ALB/GLOB RATIO 0.7 (1.1-1.8); ALBUMIN 3.3 g/dL (3.0-4.8); ALT/SGPT 32 U/L (7-56); AST/SGOT 60 U/L (17-59); BLOOD UREA NITROGEN 17 mg/dL (7-21); GFR NON-AFRICAN AMERICAN > 60; LIPASE 258 U/L (23-300)
[2018-11-08 14:56] LABS: BASO # 0.02 K/mm3 (0.0-2.0); BASO % 0.3 % (0.0-3.0); EOS # 0.2 (0.0-0.7); EOS % 3.3 % (1.5-5.0); HEMOGLOBIN 11.1 g/dL (14.0-18.0); LYMPH % 32.2 % (22.0-35.0); MEAN CELL VOLUME 84.3 fl (80.0-105.0); MEAN CORPUSCULAR HEMOGLOBIN 27.2 pg (25.0-35.0); MEAN CORPUSCULAR HGB CONC 32.3 g/dl (31.0-37.0); MONO # 0.7 (0.1-0.6); MONO % 11.1 % (1.0-6.0); PLATELET COUNT 169 10^3/uL (120.0-450.0); RBC 4.08 10^6/uL (3.5-6.1); RED CELL DISTRIBUTION WIDTH 17.9 % (11.5-14.5); WHITE BLOOD COUNT 6.3 10^3/uL (4.5-11.0)
[2018-11-08 15:00] LABS: INR 1.17; PARTIAL THROMBOPLASTIN TIME 34.7 Seconds (26.9-38.3)
[2018-11-08] MEDS ORDERED: Azithromycin 500MG/NS 250ml 500 MG/250 ML BAG IVPB STA (15:07)
[2018-11-08] MEDS ORDERED: cefTRIAXone 1 gm 1 GM/100 ML BAG IVPB STA (15:08)
[2018-11-08] MEDS ORDERED: Dorzolamide 2%/Timolol 0.5% 100 DROP/10 ML BOTTLE OD SCH (18:00)
[2018-11-08] MEDS ORDERED: Dorzolamide 2% Opht Sol 10ml OD SCH (18:00)
[2018-11-08] MEDS: Dorzolamide 2% Opht Sol 10ml OD SCH (18:27)
[2018-11-08] MEDS ORDERED: Arformoterol 15 mcg/2 ml Inh Sol IH SCH (20:00)
[2018-11-08] MEDS: Arformoterol 15 mcg/2 ml Inh Sol IH SCH (20:24)
[2018-11-08] MEDS: Budesonide 0.25 mg/2 ml Inhal Susp UD IH SCH (20:24)
--- NOTE | 2018-11-08 20:48 | CARD ---
APPROVED REPORT Date of service: 11/08/2018 EKG Measurement Heart [id number] 172P [id number] <Conclusion> Low atrial or junctional rhythm Left axis deviation Low voltage QRS Abnormal ECG
[2018-11-08] MEDS ORDERED: Influenza Vaccine 60 mcg/0.5 mL SYR (4YR UP) IM ONE (22:02)
[2018-11-08] MEDS ORDERED: Pneumococcal 23-Valent Vaccine IM ONE (22:02)
[2018-11-09] MEDS: Budesonide 0.25 mg/2 ml Inhal Susp UD IH SCH ×2 (07:43→19:27)
[2018-11-09] MEDS: Arformoterol 15 mcg/2 ml Inh Sol IH SCH ×2 (07:43→19:27)
[2018-11-09] MEDS: Dorzolamide 2% Opht Sol 10ml OD SCH ×2 (10:32→18:13)
[2018-11-09] MEDS ORDERED: Sodium Chloride 0.9% 1,000 ML IV SCH (11:15)
[2018-11-09 11:47] LABS: BASO # 0.03 K/mm3 (0.0-2.0); BASO % 0.5 % (0.0-3.0); EOS # 0.2 (0.0-0.7); HEMOGLOBIN 10.4 g/dL (14.0-18.0); LYMPH # 1.4 (1.2-3.4); LYMPH % 23.2 % (22.0-35.0); MEAN CELL VOLUME 84.7 fl (80.0-105.0); MEAN CORPUSCULAR HEMOGLOBIN 26.9 pg (25.0-35.0); MEAN CORPUSCULAR HGB CONC 31.8 g/dl (31.0-37.0); MONO # 0.5 (0.1-0.6); MONO % 7.4 % (1.0-6.0); RBC 3.86 10^6/uL (3.5-6.1); RED CELL DISTRIBUTION WIDTH 17.9 % (11.5-14.5); WHITE BLOOD COUNT 6.1 10^3/uL (4.5-11.0)
--- NOTE | 2018-11-09 14:05 | CP.PCM.CON ---
<Hung Wilson - Last Filed: 11/09/18 14:46> History of Present Illness - History of Present Illness History of Present Illness: Surgery Consult Note for Dr. Rodarte Consult: Upper GI bleed HPI: 72 year old male, past medical history of HTN, COPD, CVA, blind, deaf, alcoholic cirrhosis who was in TCU secondary to weakness and deconditioning. While in TCU yesterday, patient experienced bloody emesis of unknown volume. Patient was evaluated by hospitalist and recommended he go to the emergency room for additional work-up and admission. Patient has been hemodynamically stable and has not been transfused blood products. GI consulted. Last Abdominal US on 10/12 showed liver parenchyma is heterogeneous with a nodular contour consistent with cirrhosis. Pt has history of multiple paracenteses in the past. Most recent endoscopy report from 07/2018 showed esophageal inflammation, no varices. Pt had endoscopy in 2017 with rubber banding of grade II esophageal varices and colonoscopy which showed AVM, polyp, and diverticulosis in 2017. PMH: See above PSH: Left hip repair, Hernia repair FH: Noncontributory SH: Tobacco abuse, alcohol abuse (40 years, but quit 10 years ago), no illicit drug use ALL: NKDA Meds: See MAR Review of Systems - Constitutional Constitutional: Weight Loss, Weakness. absent: Chills, Fever - EENT Eyes: Blurred Vision, Loss of Vision Ears: Decreased Hearing Nose/Mouth/Throat: absent: Nasal Congestion, Nasal Discharge - Cardiovascular Cardiovascular: absent: Chest Pain, Dyspnea - Respiratory Respiratory: absent: Cough, Dyspnea, Hemoptysis - Gastrointestinal Gastrointestinal: Hematemesis. absent: Abdominal Pain, Coffee Ground Emesis, Nausea, Vomiting - Genitourinary Genitourinary: absent: Difficulty Urinating, Dysuria - Musculoskeletal Musculoskeletal: absent: Back Pain, Neck Pain - Integumentary Integumentary: absent: Bleeding Lesions, Rash - Neurological Neurological: absent: Confusion, Dizziness - Psychiatric Psychiatric: absent: Anxiety, Depression Past Patient History - Infectious Disease Hx of Infectious Diseases: None - Tetanus Immunizations Tetanus Immunization: Unknown - Past Social History Smoking Status: Former Smoker - CARDIAC Hx Cardiac Disorders: Yes (CAD) Hx Hypercholesterolemia: Yes Hx Hypertension: Yes - PULMONARY Hx Respiratory Disorders: Yes Hx Asthma: Yes Hx Bronchitis: Yes Hx Chronic Obstructive Pulmonary Disease (COPD): Yes Hx Sleep Apnea: Yes - NEUROLOGICAL Hx Neurological Disorder: Yes HX Cerebrovascular Accident: Yes (no residual) Hx Dementia: Yes - HEENT Hx HEENT Problems: Yes Hx Blind: Yes Hx Cataracts: Yes (both eyes) Hx Deafness: Yes (left ear, [place] r ear) Hx Glaucoma: Yes (left eye) Other/Comment: legally blind - RENAL Hx Chronic Kidney Disease: No - ENDOCRINE/METABOLIC Hx Endocrine Disorders: No Hx Diabetes Mellitus Type 2: (deniees) - HEMATOLOGICAL/ONCOLOGICAL Hx Blood Disorders: Yes (sepsis) Hx Anemia: Yes Hx Cirrhosis: Yes Hx Hepatitis B: (denies) - INTEGUMENTARY Hx Dermatological Problems: No - MUSCULOSKELETAL/RHEUMATOLOGICAL Hx Musculoskeletal Disorders: Yes Hx Arthritis: Yes Hx Falls: No Hx Fractures: Yes (left hip sx 10/20/17) Hx Unsteady Gait: Yes - GASTROINTESTINAL Hx Gastrointestinal Disorders: Yes (CHOLELITHIASIS,COLITIS,ESOPHAGEAL VARICES,H/O PARACENTESIS,) Hx Gall Bladder Disease: Yes (gallstones) Hx Gastroesophageal Reflux: Yes Other/Comment: alcoholic cirrhosis of the liver, ascites, r inguinal hernia, lower and upper gi bleed - GENITOURINARY/GYNECOLOGICAL Hx Incontinence: Yes - PSYCHIATRIC Hx Psychophysiologic Disorder: Yes Hx Depression: Yes Hx Psychosis: Yes Hx Substance Use: No Other/Comment: alcohol abuse - SURGICAL HISTORY Hx Surgeries: Yes Hx Orthopedic Surgery: Yes (l hip fx sx 10/20/16) Other/Comment: us guided paracenthesis 06/23/14. hernia repair 04/2018 - ANESTHESIA Hx Anesthesia: Yes Hx Anesthesia Reactions: No Hx Malignant Hyperthermia: No Meds Allergies/Adverse Reactions: Allergies Allergy/AdvReac Type Severity Reaction Status Date / Time No Known Allergies Allergy Verified 11/08/18 13:27 - Medications Medications: Current Medications Arformoterol Tartrate (Brovana) 15 mcg IH [id number] [facility] Last Admin: 11/09/18 07:43 Dose: 15 mcg Budesonide (Pulmicort Respules) 0.25 mg IH [id number] [facility] Last Admin: 11/09/18 07:43 Dose: 0.25 mg Dorzolamide HCl (Trusopt) 0 ml OD BID [facility] Last Admin: 11/09/18 10:32 Dose: Not Given Sodium Chloride (Sodium Chloride 0.9%) 1,000 mls @ 100 mls/hr IV .Q10H [facility] Last Admin: 11/09/18 12:47 Dose: 100 mls/hr Pantoprazole Sodium (Protonix Inj) 40 mg IVP DAILY [facility] Last Admin: 11/09/18 10:31 Dose: 40 mg Sertraline HCl (Zoloft) 25 mg PO DAILY [facility] Last Admin: 11/09/18 10:33 Dose: 25 mg Timolol Maleate (Timoptic 0.5% Ophth Soln) 1 drop OD BID [facility] Last Admin: 11/09/18 10:31 Dose: Not Given Physical Exam - Constitutional Appears: Cachectic, Chronically Ill - Head Exam Head Exam: ATRAUMATIC, NORMAL INSPECTION, NORMOCEPHALIC - Eye Exam Pupil Exam: Fixed - ENT Exam ENT Exam: Mucous Membranes Dry - Respiratory Exam Respiratory Exam: Clear to Auscultation Bilateral, NORMAL BREATHING PATTERN. absent: Respiratory Distress - Cardiovascular Exam Cardiovascular Exam: +S1, +S2 - GI/Abdominal Exam GI & Abdominal Exam: Normal Bowel Sounds, Soft. absent: Distended, Tenderness - Extremities Exam Extremities exam: Negative for: calf tenderness, pedal edema - Neurological Exam Neurological exam: Alert - Psychiatric Exam Psychiatric exam: Flat Affect, Normal Mood - Skin Skin Exam: Dry, Intact, Normal Color, Warm Results - Vital Signs Recent Vital Signs: Last Vital Signs Temp 98.2 F 11/09/18 08:06 Pulse 97 H 11/09/18 10:00 Resp 18 11/09/18 08:06 BP 98/58 L 11/09/18 08:06 Pulse Ox 93 L 11/09/18 08:06 - Labs Result Diagrams: 11/09/18 11:40 11/08/18 14:00 Labs: Laboratory Results - last 24 hr 11/08/18 11/08/18 11/08/18 14:00 14:00 14:00 WBC 6.3 RBC 4.08 Hgb 11.1 L Hct 34.4 L MCV 84.3 MCH 27.2 MCHC 32.3 RDW 17.9 H Plt Count 169 MPV Neut % (Auto) 53.1 Lymph % (Auto) 32.2 Barren % (Auto) 11.1 H Eos % (Auto) 3.3 Baso % (Auto) 0.3 Lymph # (Auto) 2.0 Barren # (Auto) 0.7 H Eos # (Auto) 0.2 Baso # (Auto) 0.02 Absolute Neuts (auto) 3.34 PT 13.0 H INR 1.17 APTT 34.7 Sodium 135 Potassium 4.5 Chloride 98 Carbon Dioxide 27 Anion Gap 14 BUN 17 Creatinine 0.6 L Est GFR ( Amer) > 60 Est GFR (Non-Af Amer) > 60 Random Glucose 95 Calcium 9.0 Magnesium 1.9 Total Bilirubin 1.0 AST 60 H D ALT 32 Alkaline Phosphatase 264 H Total Protein 7.7 Albumin 3.3 Globulin 4.5 Albumin/Globulin Ratio 0.7 L Lipase 258 11/09/18 11:40 WBC 6.1 RBC 3.86 Hgb 10.4 L Hct 32.7 L MCV 84.7 MCH 26.9 MCHC 31.8 RDW 17.9 H Plt Count 166 MPV 11.0 Neut % (Auto) 65.9 Lymph % (Auto) 23.2 Barren % (Auto) 7.4 H Eos % (Auto) 3.0 Baso % (Auto) 0.5 Lymph # (Auto) 1.4 Barren # (Auto) 0.5 Eos # (Auto) 0.2 Baso # (Auto) 0.03 Absolute Neuts (auto) 4.00 PT INR APTT Sodium Potassium Chloride Carbon Dioxide Anion Gap BUN Creatinine Est GFR ( Amer) Est GFR (Non-Af Amer) Random Glucose Calcium Magnesium Total Bilirubin AST ALT Alkaline Phosphatase Total Protein Albumin Globulin Albumin/Globulin Ratio Lipase Assessment & Plan - Assessment and Plan (Free Text) Assessment: 72M w/ PMH of alcohol abuse, cirrhosis, ascites s/p paracentesis x2, esophageal varices s/p rubber banding (04/2017) consulted for upper GI bleed Plan: Patient needs endoscopy (EGD) by GI team to assess for esophageal varices Will f/u further GI recommendations Recommend discontinuation of normal saline as this can exacerbate ascites Recommend 1/2NS @50cc/hr and 25% Albumin 12.5 gm IV x2 Q6H total of 4 doses Recommend addition of octreotide 1250 in 250cc @ 10cc/hr Will withold propranolol 2/2 hypotension at this time CBC and coags reviewed - wnl Transfuse as needed D/w Dr. East PGY1 <Aguilar Bonilla N - Last Filed: 11/10/18 17:09> Meds - Medications Medications: Current Medications Arformoterol Tartrate (Brovana) 15 mcg IH [id number] [facility] Last Admin: 11/10/18 08:35 Dose: 15 mcg Budesonide (Pulmicort Respules) 0.25 mg IH [id number] [facility] Last Admin: 11/10/18 08:35 Dose: 0.25 mg Dorzolamide HCl (Trusopt) 0 ml OD BID [facility] Last Admin: 11/10/18 09:17 Dose: 1 drop Octreotide Acetate 1,250 mcg/ (Dextrose) 252.5 mls @ 5.05 mls/hr IV .Q24H [facility]; Protocol Last Titration: 11/10/18 06:03 Dose: 50 mcg/hr, 10.1 mls/hr Sodium Chloride (Sodium Chloride 0.45%) 1,000 mls @ 50 mls/hr IV .Q20H [facility] Last Admin: 11/09/18 15:03 Dose: 50 mls/hr Pantoprazole Sodium (Protonix Inj) 40 mg IVP Q12 [facility] Last Admin: 11/10/18 11:07 Dose: Not Given Sertraline HCl (Zoloft) 25 mg PO DAILY [facility] Last Admin: 11/10/18 09:17 Dose: 25 mg Timolol Maleate (Timoptic [facility]) 1 drop OD BID [facility] Last Admin: 11/10/18 09:17 Dose: 1 drop Results - Vital Signs Recent Vital Signs: Last Vital Signs Temp 98.4 F 11/10/18 14:24 Pulse 85 11/10/18 14:24 Resp 18 11/10/18 14:24 BP 109/53 L 11/10/18 14:24 Pulse Ox 95 11/10/18 16:13 - Labs Result Diagrams: 11/10/18 13:10 11/10/18 08:30 Labs: Laboratory Results - last 24 hr 11/10/18 11/10/18 11/10/18 08:30 08:30 08:30 WBC 4.9 RBC 3.21 L Hgb 8.6 L Hct 27.1 L MCV 84.4 MCH 26.8 MCHC 31.7 RDW 17.6 H Plt Count 128 MPV 9.5 Neut % (Auto) 55.6 Lymph % (Auto) 30.7 Barren % (Auto) 8.6 H Eos % (Auto) 4.3 Baso % (Auto) 0.8 Lymph # (Auto) 1.5 Barren # (Auto) 0.4 Eos # (Auto) 0.2 Baso # (Auto) 0.04 Absolute Neuts (auto) 2.71 PT 15.3 H INR 1.35 Sodium 134 Potassium 4.1 Chloride 102 Carbon Dioxide 22 Anion Gap 14 BUN 15 Creatinine 0.6 L Est GFR ( Amer) > 60 Est GFR (Non-Af Amer) > 60 Random Glucose 116 H Calcium 8.6 Total Bilirubin 1.0 AST 33 ALT 21 Alkaline Phosphatase 156 H D Total Protein 6.6 Albumin 3.3 Globulin 3.3 Albumin/Globulin Ratio 1.0 L Blood Type Antibody Screen Crossmatch BBK History Checked 11/10/18 11/10/18 08:30 13:10 WBC RBC Hgb 9.5 L Hct 29.8 L MCV MCH MCHC RDW Plt Count MPV Neut % (Auto) Lymph % (Auto) Barren % (Auto) Eos % (Auto) Baso % (Auto) Lymph # (Auto) Barren # (Auto) Eos # (Auto) Baso # (Auto) Absolute Neuts (auto) PT INR Sodium Potassium Chloride Carbon Dioxide Anion Gap BUN Creatinine Est GFR ( Amer) Est GFR (Non-Af Amer) Random Glucose Calcium Total Bilirubin AST ALT Alkaline Phosphatase Total Protein Albumin Globulin Albumin/Globulin Ratio Blood Type AB POSITIVE Antibody Screen Negative Crossmatch See Detail BBK History Checked Patient has bt Assessment & Plan - Assessment and Plan (Free Text) Plan: All medical record entries made by the resident were at my direction. I have reviewed the chart and agree that the record accurately reflects my personal performance of the history, physical exam, and medical decision making.
[2018-11-09] MEDS ORDERED: Albumin Human 25% (12.5 gm/50 ml) IV SCH (14:30)
[2018-11-09] MEDS ORDERED: Sodium Chloride 0.45% 1,000 ML IV SCH (14:45)
[2018-11-09] MEDS: Sodium Chloride 0.45% 1,000 ML IV SCH (15:03)
[2018-11-09] MEDS: Albumin Human 25% (12.5 gm/50 ml) IV SCH ×2 (15:03→20:31)
[2018-11-09] MEDS: Octreotide 1,250 MCG in Dextrose 5% In Water 250 ML IV SCH (18:12)
--- NOTE | 2018-11-09 22:36 | CON ---
DATE: 11/09/2018 REASON FOR CONSULTATION: GI bleeding. HISTORY OF PRESENT ILLNESS: This 72-year-old patient who was recently in the Med/Surgery floor and was transferred to the TCU, was noticed to have 2 episodes of bright blood vomiting in TCU, and transferred back to the Med/Surgery floor. The patient no further episodes of bleeding. This patient has cirrhosis of the liver secondary to alcohol. The patient did have a history of chronic hepatitis B old infection, immune surface antibody positive. History of chronic constipation. Ascites, on diuretics. The patient has a history of colonic polyps admitted in the hospital recently with some rectal bleeding smaller, but found to a large amount of stool, which is cleaned out and the patient was also weak, lethargic, rule out sepsis, and was empirically treated with antibiotics. The patient is legally blind with hard of hearing. The patient's last endoscopy was reviewed done 07/25/2018 four months ago found to have hiatus hernia. No varices noticed. Portal hypertensive gastropathy and duodenitis noticed. The patient did have colonoscopy, as found to have polyps and AVM, recommended repeat evaluation and the patient declined. PAST MEDICAL HISTORY: As above. PAST SURGICAL HISTORY: Significant for hernia repair and also hip surgery. He has an EGD and colonoscopy as mentioned above. ALLERGIES: NO KNOWN DRUG ALLERGIES. SOCIAL HISTORY: He was an ex-EtOH abuser and history of ex-smoker. REVIEW OF SYSTEMS: Positive as above, other systems reviewed. PHYSICAL EXAMINATION: GENERAL: The patient is lying on the bed, not in acute distress. VITAL SIGNS: Temperature 98.2, blood pressure 98/58, respirations 18, and O2 saturation 93%. HEENT: Atraumatic and anicteric. The patient is legally blind. Hard of hearing. NECK: Supple. HEART: S1 and S2 heard. LUNGS: Bilateral air entry present. ABDOMEN: Soft. EXTREMITIES: No cyanosis. No clubbing. NEUROLOGIC: The patient is alert. LABORATORY DATA: Hemoglobin 10.4, yesterday it was 11.1, hematocrit 32.7, and platelet count 166. INR 1.17 yesterday. Chemistries; AST 60 and ALT 32. IMPRESSION AND PLAN: This is a 72-year-old patient with cirrhosis of the liver secondary to the alcohol who was recently in the Med/Surgery floor, was in Transitional Care Unit for deconditioning, noticed to have 2 episodes of vomiting blood, history of esophageal varices, status post band ligation in the past, last endoscopy done in July did not show any varices. The patient appears hemodynamically stable with the slight drop in hemoglobin. We would recommend: 1. PPI. 2. Close followup of the hemoglobin and hematocrit. 3. Octreotide, nonselective beta-jagdeep, abdominal Doppler done in 10/2017 was reviewed showed patent portal vein. The patient may benefit from upper GI endoscopy, clear liquid diet. The patient may benefit from upper GI endoscopy to further evaluate. We will discuss with Dr. Ponce and also with the family. Thank you very much for allowing us to participate in the care of the patient. Deyanira Oropeza MD
--- NOTE | 2018-11-09 22:57 | CON ---
DATE: 11/09/2018 REFERRING PHYSICIAN: Evie Ponce MD. REASON FOR CONSULT: Chronic lung disease. HISTORY OF PRESENT ILLNESS: This is a 72 years old gentleman, well known to me from a previous admission, most recently from a TRCU, while there had hematemesis with vomiting of clots, was sent to emergency room and was admitted for further workup, known to have a history of chronic lung disease, cirrhotic liver, confirming esophageal and gastric varices, recurrent ascites requiring paracentesis. Also, he is legally blind and deaf, has anemia requiring transfusion in the past, also has some adjustment disorder, has a mild cough, no sputum production at present. There is no nausea, no vomiting. Hungry, wants to eat. PAST MEDICAL HISTORY: As per history of present illness. ALLERGIES: NONE KNOWN. FAMILY HISTORY: No significant cardiopulmonary disease recorded. SOCIAL HISTORY: Active smoker. Abuses alcohol. MEDICATIONS: He received albumin 25 mg every 6 hours, Brovana inhaled twice a day. Also started on octreotide IV drip, Protonix 40 mg IV daily, Pulmicort inhaled twice a day, IV fluid of normal saline 50 mL per hour, Zoloft 25 mg daily. REVIEW OF SYSTEMS: No headache, no dizziness. Hungry, wants to eat. Status post hematemesis. Presently no chest pain, no abdominal pain, no dysuria, leg pain or leg swelling. PHYSICAL EXAMINATION GENERAL: No acute distress. VITAL SIGNS: Temperature 98, heart rate 97, respiratory rate 18, blood pressure 123/75, pulse oxymetry 93% on room air. HEENT: Moist mucous membranes, small oral cavity. NECK: Supple. No JVD. LUNGS: Have scattered rhonchi. HEART: S1, S2. ABDOMEN: Soft. Not much ascites. EXTREMITIES: There is no edema. NEUROLOGICAL: Sleepy, arousable. Very hard of hearing. Follows simple commands. LABORATORY DATA: Shows hemoglobin 10.4, hematocrit 32.7, WBC 6.1, platelet is 166. INR 1.17, PTT 35. Sodium 135, potassium 4.5, chloride 98, bicarbonate 27, BUN 17, creatinine 0.6, glucose 95, calcium 9, magnesium 1.9, total bilirubin 1, AST 60, ALT 32, alk phos is 264, albumin 3.3, lipase is 258. Had a chest x-ray done in ER, which shows bilateral perihilar infiltrate versus atelectasis. IMPRESSION AND PLAN: Chronic obstructive lung disease, esophageal varices, gastric varices, anemia, history of hepatitis B, cirrhotic liver, history of alcohol abuse, history of ascites requiring multiple paracenteses, also repair of hernia, hard of hearing. Pulmonary point of view, continue bronchodilator, keep head at 45 degrees. Spoke to nursing staff. Will be started on clear liquid diet. The patient will be seen by Gastroenterology and Surgery. Gastric prophylaxis. SCD to lower extremity. Cannot do chemical prophylaxis because of recurrent bleed. Thank you and we will follow with you. Theodore Atkins MD
--- NOTE | 2018-11-10 01:00 | HP ---
DATE OF EXAM: 11/09/2018 The patient was seen and examined at bedside 11/09/2018. CHIEF COMPLAINT: Vomiting of blood and abdominal pain. HISTORY OF PRESENT ILLNESS: Mr. Esteban Carrion is a 72-year-old male with past medical history of cirrhosis of the liver. Endoscopy done long time ago showing esophageal varices, came with upper abdominal pain. I called a consult with GI, Dr. Oropeza, he offered again upper endoscopy, the patient refused that. I called consult with Dr. Aguilar Wilkinson, stem shaper, he ordered CAT scan of the liver with IV contrast, but still the patient refused that. The patient is noncompliant. The patient was deconditioned, cannot do to his ADL. We transferred the patient to TCU for physical therapy and reconditioning and continuity of treatment. The patient was doing very good there, getting physical therapy. All of a sudden yesterday started vomiting of the blood. Then we transferred the patient to ER and from there he was readmitted. Feeling very fatigued and tired still, refusing many testing again. GI and Hepatology is on the case. Urged to be complaint. Discussion done with the patient and patient's nurse. We will talk to the family also for compliance. PAST MEDICAL HISTORY: Hypertension, coronary artery disease, COPD, cerebrovascular accident, blind, deaf, had cataract and glaucoma, cirrhosis of the liver, cholelithiasis, colitis, esophageal varices, history of paracentesis and history of ascites, depression, psychosis and history of left hip surgery. FAMILY HISTORY: Father and mother, noncontributory. HABITS: No smoking now, a former smoker. Alcohol abuse. No substance abuse. ALLERGIES: THE PATIENT IS NOT ALLERGIC WITH ANY MEDICATIONS. HOME MEDICATIONS: Eyedrops, Zoloft, Lasix and Aldactone. REVIEW OF SYSTEMS: The patient was seen and examined at bedside, looking comfortable. No more vomiting of blood. He is on clear liquid. No fevers. No chills. No headache. No dizziness. Two episodes of bright red blood vomiting. PHYSICAL EXAMINATION VITAL SIGNS: Temperature 98, pulse 86, respiratory rate 16, blood pressure 120/68, pulse oximetry 98%. HEENT: Head; normocephalic, atraumatic. Eyes; PERRLA. Extraocular muscles intact. Conjunctivae clear. Nose patent. NECK: Supple. No carotid bruits, JVD or thyromegaly. CHEST: Bilateral symmetrical. HEART: S1 and S2 positive. LUNGS: Clear to auscultation. ABDOMEN: Soft. Bowel sounds present. No organomegaly. EXTREMITIES: No edema. No cyanosis. NEUROLOGIC: The patient is awake and alert. Moving all four extremities. No focal deficits. LABORATORY DATA: White blood cells 6.1, hemoglobin yesterday was 11.1, today is 10.4,hematocrit 32.7, platelets 166. Sodium 135, potassium 4.5, BUN 17, creatinine 0.9, glucose 95. AST 50, ALT 264. ASSESSMENT AND PLAN: Mr. Esteban Carrion is a 72-year-old male with anemia, abnormal liver function test, history of ascites, had paracentesis done x2, history of hypertension, chronic obstructive pulmonary disease, cerebrovascular accident, blind, deafness, alcoholic cirrhosis, was in Transitional Care Unit with deconditioning. Transitional Care Unit started. Bloody emesis of unknown volume. The patient was sent to emergency room and readmitted. Now Gastroenterology and Hepatology consult called. History of paracentesis. Reviewed hepatological notes. The patient had esophagogastroduodenoscopy by Gastroenterology team to assess gastroesophageal varices. Follow up further Gastroenterology recommendation. Appreciated Hepatology recommendation. Repeat labs. We will follow up. Evie Ponce MD
[2018-11-10] MEDS: Albumin Human 25% (12.5 gm/50 ml) IV SCH (02:35)
[2018-11-10] MEDS: Arformoterol 15 mcg/2 ml Inh Sol IH SCH ×2 (08:35→19:50)
[2018-11-10] MEDS: Budesonide 0.25 mg/2 ml Inhal Susp UD IH SCH ×2 (08:35→19:50)
[2018-11-10 09:01] LABS: INR 1.35; PROTHROMBIN TIME 15.3 SECONDS (9.4-12.5)
[2018-11-10] MEDS: Dorzolamide 2% Opht Sol 10ml OD SCH ×2 (09:17→18:18)
[2018-11-10 09:19] LABS: BASO # 0.04 K/mm3 (0.0-2.0); BASO % 0.8 % (0.0-3.0); EOS # 0.2 (0.0-0.7); EOS % 4.3 % (1.5-5.0); HEMOGLOBIN 8.6 g/dL (14.0-18.0); LYMPH # 1.5 (1.2-3.4); LYMPH % 30.7 % (22.0-35.0); MEAN CELL VOLUME 84.4 fl (80.0-105.0); MEAN CORPUSCULAR HEMOGLOBIN 26.8 pg (25.0-35.0); MEAN CORPUSCULAR HGB CONC 31.7 g/dl (31.0-37.0); MEAN PLATELET VOLUME 9.5 fl (7.0-11.0); MONO # 0.4 (0.1-0.6); MONO % 8.6 % (1.0-6.0); RBC 3.21 10^6/uL (3.5-6.1); RED CELL DISTRIBUTION WIDTH 17.6 % (11.5-14.5); WHITE BLOOD COUNT 4.9 10^3/uL (4.5-11.0)
[2018-11-10 09:21] LABS: ALBUMIN 3.3 g/dL (3.0-4.8); ALT/SGPT 21 U/L (7-56); AST/SGOT 33 U/L (17-59); BLOOD UREA NITROGEN 15 mg/dL (7-21); CALCIUM 8.6 mg/dL (8.4-10.5); GFR NON-AFRICAN AMERICAN > 60
--- NOTE | 2018-11-10 10:30 | CP.PCM.PN ---
<Kleber Kennedy - Last Filed: 11/10/18 16:49> Subjective - Date & Time of Evaluation Date of Evaluation: 11/10/18 Time of Evaluation: 11:54 - Subjective Subjective: Hepatobiliary surgery progress note for Dr. Bruno Pt seen and examined at bedside. Pt is resting comfortably. Denies fever, chills, chest pain, sob, abdominal pain, n/v/d, hematochezia, melena, hematemesis, dizziness, lightheadedness. Octeotride gtt at 50 mcg/hr, 1/2 NS at 50 mL/hr currently infusing. Pt to go for EGD today. Objective - Vital Signs/Intake and Output Vital Signs (last 24 hours): Temp Pulse Resp BP Pulse Ox 99 F 82 18 118/61 97 11/10/18 08:05 11/10/18 08:05 11/10/18 08:05 11/10/18 08:05 11/10/18 08:05 Intake and Output: 11/10/18 11/10/18 06:59 18:59 Intake Total 72.9 Balance 72.9 - Medications Medications: Current Medications Arformoterol Tartrate (Brovana) 15 mcg IH [id number] [facility] Last Admin: 11/10/18 08:35 Dose: 15 mcg Budesonide (Pulmicort Respules) 0.25 mg IH [id number] [facility] Last Admin: 11/10/18 08:35 Dose: 0.25 mg Dorzolamide HCl (Trusopt) 0 ml OD BID [facility] Last Admin: 11/10/18 09:17 Dose: 1 drop Octreotide Acetate 1,250 mcg/ (Dextrose) 252.5 mls @ 5.05 mls/hr IV .Q24H [facility]; Protocol Last Titration: 11/10/18 06:03 Dose: 50 mcg/hr, 10.1 mls/hr Sodium Chloride (Sodium Chloride 0.45%) 1,000 mls @ 50 mls/hr IV .Q20H [facility] Last Admin: 11/09/18 15:03 Dose: 50 mls/hr Pantoprazole Sodium (Protonix Inj) 40 mg IVP DAILY [facility] Last Admin: 11/10/18 09:17 Dose: 40 mg Sertraline HCl (Zoloft) 25 mg PO DAILY [facility] Last Admin: 11/10/18 09:17 Dose: 25 mg Timolol Maleate (Timoptic 0.5% Ophth Soln) 1 drop OD BID [facility] Last Admin: 11/10/18 09:17 Dose: 1 drop - Labs Labs: 11/10/18 08:30 11/10/18 08:30 PT 15.3 SECONDS (9.4-12.5) H 11/10/18 08:30 INR 1.35 11/10/18 08:30 APTT 34.7 Seconds (26.9-38.3) 11/08/18 14:00 - Additional Findings Additional findings: - Constitutional Appears: Cachectic, Chronically Ill - Head Exam Head Exam: ATRAUMATIC, NORMAL INSPECTION, NORMOCEPHALIC - Eye Exam Eye exam: EOMI. Pt legally blind. - ENT Exam ENT Exam: Mucous Membranes Dry - Respiratory Exam Respiratory Exam: Clear to Auscultation Bilateral, NORMAL BREATHING PATTERN. absent: Respiratory Distress - Cardiovascular Exam Cardiovascular Exam: +S1, +S2. RRR. - GI/Abdominal Exam GI & Abdominal Exam: Normal Bowel Sounds, Soft. absent: Distended, Tenderness, Rigidity, Rebound - Extremities Exam Extremities exam: Negative for: calf tenderness, pedal edema - Neurological Exam Neurological exam: Alert, Awake - Psychiatric Exam Psychiatric exam: Flat Affect, Normal Mood - Skin Skin Exam: Dry, Intact, Normal Color, Warm Assessment and Plan - Assessment and Plan (Free Text) Assessment: 72M w/ PMH of alcohol abuse, cirrhosis, ascites s/p paracentesis x2, esophageal varices s/p rubber banding (04/2017) consulted for upper GI bleed. Plan: Patient to go for EGD by GI team to assess for esophageal varices Will f/u further GI recommendations Recommend discontinuation of normal saline as this can exacerbate ascites Pt receivin/2NS @50cc/hr 25% Albumin 12.5 gm IV Q6H , total of 3/4 doses received Octreotide @ 50cc/hr Continue to hold propranolol for now H/H shows 8.6/27.1. Previously 10.4/32.7 Stat repeat H/H today shows 9.5/29.8 Likely due to hemodilution. Pt without hypotension, tachycardia, asymptomatic. Good capillary refill. Transfuse as needed Further recommendations per Dr. Ivey PGY1 Pager# [phone] <IreneAguilar N - Last Filed: 11/10/18 17:02> Objective - Vital Signs/Intake and Output Vital Signs (last 24 hours): Temp Pulse Resp BP Pulse Ox 98.4 F 85 18 109/53 L 95 11/10/18 14:24 11/10/18 14:24 11/10/18 14:24 11/10/18 14:24 11/10/18 16:13 Intake and Output: 11/10/18 11/10/18 06:59 18:59 Intake Total 72.9 Balance 72.9 - Medications Medications: Current Medications Arformoterol Tartrate (Brovana) 15 mcg IH [id number] [facility] Last Admin: 11/10/18 08:35 Dose: 15 mcg Budesonide (Pulmicort Respules) 0.25 mg IH [id number] [facility] Last Admin: 11/10/18 08:35 Dose: 0.25 mg Dorzolamide HCl (Trusopt) 0 ml OD BID [facility] Last Admin: 11/10/18 09:17 Dose: 1 drop Octreotide Acetate 1,250 mcg/ (Dextrose) 252.5 mls @ 5.05 mls/hr IV .Q24H [facility]; Protocol Last Titration: 11/10/18 06:03 Dose: 50 mcg/hr, 10.1 mls/hr Sodium Chloride (Sodium Chloride 0.45%) 1,000 mls @ 50 mls/hr IV .Q20H [facility] Last Admin: 11/09/18 15:03 Dose: 50 mls/hr Pantoprazole Sodium (Protonix Inj) 40 mg IVP Q12 [facility] Last Admin: 11/10/18 11:07 Dose: Not Given Sertraline HCl (Zoloft) 25 mg PO DAILY [facility] Last Admin: 11/10/18 09:17 Dose: 25 mg Timolol Maleate (Timoptic 0.5% Ophth Soln) 1 drop OD BID [facility] Last Admin: 11/10/18 09:17 Dose: 1 drop - Labs Labs: 11/10/18 13:10 11/10/18 08:30 PT 15.3 SECONDS (9.4-12.5) H 11/10/18 08:30 INR 1.35 11/10/18 08:30 APTT 34.7 Seconds (26.9-38.3) 11/08/18 14:00 Assessment and Plan - Assessment and Plan (Free Text) Assessment: All medical record entries made by the resident were at my direction. I have reviewed the chart and agree that the record accurately reflects my personal performance of the history, physical exam, and medical decision making.
--- NOTE | 2018-11-10 12:34 | CP.PCM.PCO ---
Physician Communication Note - Physician Communication Note Physician Communication Note: resting comfortable, awaits EGD this pm, no further vomiting
[2018-11-10 13:19] LABS: HEMOGLOBIN 9.5 g/dL (14.0-18.0)
--- NOTE | 2018-11-10 13:34 | PN ---
DATE: 11/10/2018 PULMONARY PROGRESS NOTE REFERRING PHYSICIAN: Evie Ponce MD SUBJECTIVE: The patient is seen, lying in bed. No acute distress. No overnight events reported. Reports feeling well this morning. Currently his n.p.o. as he has EGD pending for today. No headache, rhinitis, cough, shortness of breath, chest pain, abdominal pain, nausea, vomiting, diarrhea, leg pain or leg swelling reported. OBJECTIVE: GENERAL: No acute distress. VITAL SIGNS: Blood pressure 118/61, pulse 82, temperature 99 and oxygen saturation 97% on room air. HEENT: Moist mucous membranes. Small oral cavity. NECK: Supple. No JVD. LUNGS: Few scattered rhonchi. CARDIOVASCULAR: S1 and S2. ABDOMEN: Soft and nontender. No distention. EXTREMITIES: No bilateral lower extremity edema. NEUROLOGIC: Awake, alert and verbal. Hard of hearing. Following simple commands. MEDICATIONS: Reviewed. Brovana 15 mcg every 12 hours, Pulmicort 0.25 mg inhalation every 12 hours, Trusopt twice a day, octreotide acetate 1250 mcg in Dextrose 252.5 mL at 5.05 mL per hour, Protonix 40 mg IV push every 12 hours, Zoloft 25 mg daily, sodium chloride 0.45% 1000 mL at 50 mL per hour, Timolol eye drops twice a day. LABORATORY DATA: Reviewed. WBC 4.9, RBC 3.21, hemoglobin 8.6, hematocrit 27.1 and platelets 128. PT 15.3, INR 1.35, sodium 134, potassium 4.1, chloride 102, carbon dioxide 22, anion gap 14, BUN 16, creatinine 0.6, GFR greater than 60, random glucose 116, calcium 8.6, total bilirubin 1.0, AST 33, ALT 21, alkaline phosphatase 156, total protein 6.6, albumin 3.3, globulin 3.3, albumin and globulin ratio 1.0. Blood cultures preliminary no growth after 24 hours. IMPRESSION AND PLAN: Chronic obstructive lung disease, esophageal varices, gastric varices, history of hepatitis B, anemia, cirrhotic liver, history of alcohol abuse, history of ascites requiring multiple paracenteses in the past, hard of hearing, also has history of repair of hernia. Pulmonary point of view, continue inhaled bronchodilators, head of bed elevated at 45 degrees, pending EGD today. Continue Gastroenterology followup, surgical followup, gastric prophylaxis, sequential compression devices to bilateral lower extremities for deep venous thrombosis prophylaxis, as the patient cannot be on chemical prophylaxis due to recurrent gastrointestinal bleed, anemia. Close cardiopulmonary monitoring while sedated. This patient was seen and examined with Dr. Atkins. Discussed assessment and plan as described above. This patient was seen and examined with Garry Gutierrez, nurse practitioner. Discussed assessment and plan as described above. Thank you for this consult and we will follow with you. Garry Gutierrez APN Theodore Atkins MD JULIET
[2018-11-10] MEDS ORDERED: Propofol 10 mg/ml Inj (20 ML) ONE (15:58)
[2018-11-10] MEDS ORDERED: cefTRIAXone (Rocephin) 1 gm Inj ONE (16:11)
[2018-11-10] MEDS ORDERED: Sodium Chloride 0.9% 1,000 ML IV SCH (17:45)
[2018-11-10] MEDS: Sodium Chloride 0.45% 1,000 ML IV SCH (18:19)
[2018-11-10] MEDS: Octreotide 1,250 MCG in Dextrose 5% In Water 250 ML IV SCH (18:19)
--- NOTE | 2018-11-11 05:02 | PN ---
DATE: 11/10/2018 SUBJECTIVE: The patient is a 72-year-old male. The patient was seen and examined at the bedside on 11/10/2018. Looking comfortable. No fever. No chills. No headache. No dizziness. No chest pain or palpitations. No more bleeding orally or rectally. Went for endoscopy and sigmoidoscopy by Dr. Oropeza. PHYSICAL EXAMINATION: VITAL SIGNS: Blood pressure 120/60, pulse 80, temperature 99.1, oxygen saturation 97%. HEENT: Head: Normocephalic and atraumatic. Eyes: PERRLA. Extraocular muscles intact. Conjunctivae clear. Nose patent. Mucous membranes moist. NECK: Supple. No carotid bruits. No JVD or thyromegaly. CHEST: Bilaterally symmetrical. HEART: S1 and S2 positive. LUNGS: Decreased to auscultation. ABDOMEN: Soft. Bowel sounds present. No organomegaly. EXTREMITIES: No edema. No cyanosis. NEUROLOGIC: The patient is awake and alert. Moving all four extremities. No focal deficits. MEDICATIONS: Brovana, Pulmicort, Dextrose, Protonix, Zoloft. LABORATORY DATA: White blood cells 4.9, hemoglobin 8.6, hematocrit 27.1, platelets 128. Sodium 134, potassium 4.1, BUN 16, creatinine 0.6. AST 33, ALT 21. ASSESSMENT AND PLAN: Mr. Esteban Carrion is a 72-year-old male with multiple medical problems of blind, deaf, history of chronic obstructive pulmonary disease, esophageal varices, gastroparesis and rectal varices, history of hepatitis B, anemia, cirrhosis of liver, history of alcohol abuse, ascites requiring multiple paracentesis, history of hernia repair. Dr. Oropeza spoke to the patient's brother length of time as the patient is not a good candidate for surgery. Close cardiopulmonary monitoring is necessary. Discussion done with my nurse practitioner, Femi Moffett. For more detail, see notes by Femi Moffett in the notes section. Repeat labs. We will follow up. Evie Ponce MD
[2018-11-11] MEDS: Budesonide 0.25 mg/2 ml Inhal Susp UD IH SCH ×2 (07:42→19:55)
[2018-11-11] MEDS: Arformoterol 15 mcg/2 ml Inh Sol IH SCH ×2 (07:42→19:55)
--- NOTE | 2018-11-11 08:18 | CP.PCM.PN ---
<Joleen Rene - Last Filed: 11/11/18 13:29> Subjective - Date & Time of Evaluation Date of Evaluation: 11/11/18 Time of Evaluation: 08:14 - Subjective Subjective: Gastroenterology Fellow/PGY6 Progress Note Patient resting comfortably. Admits to mid-epigastric discomfort. No bowel movements overnight confirmed by nursing. A 12-point review of systems negative except for as above. Objective - Vital Signs/Intake and Output Vital Signs (last 24 hours): Temp Pulse Resp BP Pulse Ox 97.2 F L 70 20 125/63 95 11/11/18 00:01 11/11/18 06:00 11/11/18 00:01 11/11/18 00:01 11/11/18 00:01 Intake and Output: 11/11/18 11/11/18 06:59 18:59 Intake Total 1200 Balance 1200 - Medications Medications: Current Medications Arformoterol Tartrate (Brovana) 15 mcg IH [id number] [facility] Last Admin: 11/11/18 07:42 Dose: 15 mcg Budesonide (Pulmicort Respules) 0.25 mg IH [id number] [facility] Last Admin: 11/11/18 07:42 Dose: 0.25 mg Dorzolamide HCl (Trusopt) 0 ml OD BID [facility] Last Admin: 11/10/18 18:18 Dose: 1 drop Octreotide Acetate 1,250 mcg/ (Dextrose) 252.5 mls @ 5.05 mls/hr IV .Q24H [facility]; Protocol Last Admin: 11/10/18 18:19 Dose: 50 mcg/hr, 10.1 mls/hr Sodium Chloride (Sodium Chloride 0.45%) 1,000 mls @ 50 mls/hr IV .Q20H [facility] Last Admin: 11/10/18 18:19 Dose: 50 mls/hr Pantoprazole Sodium (Protonix Inj) 40 mg IVP Q12 [facility] Last Admin: 11/10/18 21:50 Dose: 40 mg Sertraline HCl (Zoloft) 25 mg PO DAILY [facility] Last Admin: 11/10/18 09:17 Dose: 25 mg Timolol Maleate (Timoptic 0.5% Ophth Soln) 1 drop OD BID [facility] Last Admin: 11/10/18 18:18 Dose: 1 drop - Labs Labs: 11/10/18 13:10 11/10/18 08:30 PT 15.3 SECONDS (9.4-12.5) H 11/10/18 08:30 INR 1.35 11/10/18 08:30 APTT 34.7 Seconds (26.9-38.3) 11/08/18 14:00 - Constitutional Appears: Non-toxic, No Acute Distress - Head Exam Head Exam: ATRAUMATIC, NORMOCEPHALIC - Eye Exam Eye Exam: PERRL. absent: Scleral icterus Pupil Exam: PERRL. absent: Miosis, Mydriatic - ENT Exam ENT Exam: Mucous Membranes Moist, Normal Oropharynx - Neck Exam Neck Exam: Full ROM, Normal Inspection - Respiratory Exam Respiratory Exam: Clear to Ausculation Bilateral. absent: Rales, Rhonchi, Wheezes - Cardiovascular Exam Cardiovascular Exam: RRR, +S1, +S2. absent: Gallop, Rubs - GI/Abdominal Exam GI & Abdominal Exam: Soft, Normal Bowel Sounds. absent: Distended, Firm, Guarding, Rigid, Tenderness, Organomegaly, Rebound - Extremities Exam Extremities Exam: Normal Inspection. absent: Pedal Edema - Neurological Exam Neurological Exam: Alert, Awake - Psychiatric Exam Psychiatric exam: Normal Affect, Normal Mood - Skin Skin Exam: Dry, Intact, Normal Color, Warm Assessment and Plan - Assessment and Plan (Free Text) Assessment: 72 year old male with a PMH of decompensated Alcoholic cirrhosis 2/2 ascites s/p multiple paracentesis (last 10/13/18) and esophageal variceal bleed (s/p EVL 04/2017), Blind/Hearing impairment admitted for GI bleed 2/2 rectal varices on sigmoidoscopy 11/10/18. Plan: -MELD 17 -continue octreotide drip for at least the next 24 hours -monitor H/H or for signs of recurrent rectal bleeding -started on Propranolol 20mg BID for variceal bleed secondary prophylaxis, mon itor HR -continue PPI ACB -tolerating liquid diet, advance to low sodium soft diet -will plan to restart diuretics and lactulose after monitoring for continued hemostasis over the next 24-48 hours -On hold: Lasix 40mg daily, spironolactone 100mg daily, and Lactulose QHS -will follow clinical course <Deyanira Oropeza V - Last Filed: 11/11/18 23:30> Objective - Vital Signs/Intake and Output Vital Signs (last 24 hours): Temp Pulse Resp BP Pulse Ox 98.1 F 66 18 114/63 94 L 11/11/18 16:40 11/11/18 18:23 11/11/18 16:40 11/11/18 18:23 11/11/18 16:40 Intake and Output: 11/11/18 11/12/18 18:59 06:59 Intake Total 252.5 900 Balance 252.5 900 - Medications Medications: Current Medications Arformoterol Tartrate (Brovana) 15 mcg IH [id number] [facility] Last Admin: 11/11/18 19:55 Dose: Not Given Budesonide (Pulmicort Respules) 0.25 mg IH [id number] [facility] Last Admin: 11/11/18 19:55 Dose: Not Given Dorzolamide HCl (Trusopt) 0 ml OD BID [facility] Last Admin: 11/11/18 18:24 Dose: 1 drop Octreotide Acetate 1,250 mcg/ (Dextrose) 252.5 mls @ 5.05 mls/hr IV .Q24H [facility]; Protocol Last Admin: 11/11/18 15:47 Dose: 50 mcg/hr, 10.1 mls/hr Sodium Chloride (Sodium Chloride 0.45%) 1,000 mls @ 50 mls/hr IV .Q20H [facility] Last Admin: 11/11/18 15:48 Dose: 50 mls/hr Pantoprazole Sodium (Protonix Inj) 40 mg IVP Q12 [facility] Last Admin: 11/11/18 21:22 Dose: 40 mg Propranolol HCl (Inderal) 20 mg PO BID [facility] Last Admin: 11/11/18 18:23 Dose: 20 mg Sertraline HCl (Zoloft) 25 mg PO DAILY [facility] Last Admin: 11/11/18 09:49 Dose: 25 mg Timolol Maleate (Timoptic 0.5% Oph Soln) 1 drop OD BID [facility] Last Admin: 11/11/18 18:24 Dose: 1 drop - Labs Labs: 11/11/18 09:30 11/10/18 08:30 PT 16.0 SECONDS (9.4-12.5) H 11/11/18 09:30 INR 1.42 11/11/18 09:30 APTT 34.7 Seconds (26.9-38.3) 11/08/18 14:00 Attending/Attestation - Attestation I have personally seen and examined this patient.: Yes I have fully participated in the care of the patient.: Yes I have reviewed all pertinent clinical information, including history, physical exam and plan: Yes Notes (Text): This patient was seen and evaluated along with the GI fellow earlier today. This is an addendum to the progress note dictated by the GI fellow. No further episodes of vomiting blood melena or bright red blood per rectum. On examination abdomen soft nontender Status post flex sig which revealed a probable rectal variceal bleeding there was a brown stool present in the distal rectum and the sigmoid colon Status post EGD no obvious source of blood loss noticed an EGD On examination abdomen soft nontender Close follow-up of the hemoglobin and slowly advance the diet Patient would benefit from titrating the dose of Aldactone to 50 mg and Lasix 20 mg Patient needs close monitoring of electrolytes 11/11/18 23:24
--- NOTE | 2018-11-11 08:41 | CP.PCM.PN ---
<Kleber Kennedy - Last Filed: 11/11/18 11:06> Subjective - Date & Time of Evaluation Date of Evaluation: 11/11/18 Time of Evaluation: 08:24 - Subjective Subjective: Hepatobiliary surgery progress note for Dr. Wilkinson Pt seen and examined at bedside. Pt is resting comfortably. Denies fever, chills, chest pain, sob, abdominal pain, n/v/d, hematochezia, melena, hematemesis, dizziness, lightheadedness. Pt did not have bowel movement overnight. Octeotride gtt at 50 mcg/hr, 1/2 NS at 50 mL/hr currently infusing. Objective - Vital Signs/Intake and Output Vital Signs (last 24 hours): Temp Pulse Resp BP Pulse Ox 97.2 F L 70 20 125/63 95 11/11/18 00:01 11/11/18 06:00 11/11/18 00:01 11/11/18 00:01 11/11/18 00:01 Intake and Output: 11/11/18 11/11/18 06:59 18:59 Intake Total 1200 Balance 1200 - Medications Medications: Current Medications Arformoterol Tartrate (Brovana) 15 mcg IH [id number] [facility] Last Admin: 11/11/18 07:42 Dose: 15 mcg Budesonide (Pulmicort Respules) 0.25 mg IH [id number] [facility] Last Admin: 11/11/18 07:42 Dose: 0.25 mg Dorzolamide HCl (Trusopt) 0 ml OD BID [facility] Last Admin: 11/10/18 18:18 Dose: 1 drop Octreotide Acetate 1,250 mcg/ (Dextrose) 252.5 mls @ 5.05 mls/hr IV .Q24H [facility]; Protocol Last Admin: 11/10/18 18:19 Dose: 50 mcg/hr, 10.1 mls/hr Sodium Chloride (Sodium Chloride 0.45%) 1,000 mls @ 50 mls/hr IV .Q20H [facility] Last Admin: 11/10/18 18:19 Dose: 50 mls/hr Pantoprazole Sodium (Protonix Inj) 40 mg IVP Q12 [facility] Last Admin: 11/10/18 21:50 Dose: 40 mg Sertraline HCl (Zoloft) 25 mg PO DAILY [facility] Last Admin: 11/10/18 09:17 Dose: 25 mg Timolol Maleate (Timoptic 0.5% Ophth Soln) 1 drop OD BID [facility] Last Admin: 11/10/18 18:18 Dose: 1 drop - Labs Labs: 11/10/18 13:10 11/10/18 08:30 PT 15.3 SECONDS (9.4-12.5) H 11/10/18 08:30 INR 1.35 11/10/18 08:30 APTT 34.7 Seconds (26.9-38.3) 11/08/18 14:00 - Additional Findings Additional findings: - Constitutional Appears: Cachectic, Chronically Ill - Head Exam Head Exam: ATRAUMATIC, NORMAL INSPECTION, NORMOCEPHALIC - Eye Exam Eye exam: EOMI. Pt legally blind. - ENT Exam ENT Exam: Mucous Membranes Dry. Pt hard of hearing. - Respiratory Exam Respiratory Exam: Clear to Auscultation Bilateral, NORMAL BREATHING PATTERN. absent: Respiratory Distress - Cardiovascular Exam Cardiovascular Exam: +S1, +S2. RRR. - GI/Abdominal Exam GI & Abdominal Exam: Normal Bowel Sounds, Soft, (+) Distension, without tenderness, rigidity or rebound - Extremities Exam Extremities exam: Negative for: calf tenderness, pedal edema - Neurological Exam Neurological exam: Alert, Awake - Psychiatric Exam Psychiatric exam: Flat Affect, Normal Mood - Skin Skin Exam: Dry, Intact, Normal Color, Warm Assessment and Plan - Assessment and Plan (Free Text) Assessment: 72M w/ PMH of alcohol abuse, cirrhosis, ascites s/p paracentesis x2, esophageal varices s/p rubber banding (04/2017) consulted for upper GI bleed. Plan: EGD showed portal hypertensive gastropathy, no signs of bleeding. Pt with large blood bowel movement in the endoscopy room. Pt transfused 1 unit of leukoreduced pRBCs. Flex sigmoidoscopy showed rectal varices, diverticulosis, no active bleeding. Medications 1/2NS @50cc/hr 25% Albumin 12.5 gm IV x4 doses completed Octreotide @ 50cc/hr Propanolol 20 mg PO BID started as pt no longer hypotensive Continue to monitor renal fxn H/H is 10.3/31.4. Previously 9.5/29.8 Received 1 unit pRBC as above, with appropriate response. GI recommendations appreciated. Further recommendations per Dr. Lucass PGY1 Pager# [phone] <Aguilar Bonilla - Last Filed: 11/12/18 10:41> Objective - Vital Signs/Intake and Output Vital Signs (last 24 hours): Temp Pulse Resp BP Pulse Ox 98.5 F 58 L 20 112/61 94 L 11/12/18 06:00 11/12/18 10:30 11/12/18 06:00 11/12/18 10:30 11/12/18 06:00 Intake and Output: 11/12/18 11/12/18 06:59 18:59 Intake Total 1860 Balance 1860 - Medications Medications: Current Medications Arformoterol Tartrate (Brovana) 15 mcg IH [id number] [facility] Last Admin: 11/12/18 08:15 Dose: 15 mcg Budesonide (Pulmicort Respules) 0.25 mg IH [id number] [facility] Last Admin: 11/12/18 08:15 Dose: 0.25 mg Dorzolamide HCl (Trusopt) 0 ml OD BID [facility] Last Admin: 11/12/18 10:31 Dose: 1 drop Octreotide Acetate 1,250 mcg/ (Dextrose) 252.5 mls @ 5.05 mls/hr IV .Q24H [facility]; Protocol Last Admin: 11/11/18 15:47 Dose: 50 mcg/hr, 10.1 mls/hr Sodium Chloride (Sodium Chloride 0.45%) 1,000 mls @ 50 mls/hr IV .Q20H [facility] Last Admin: 11/11/18 15:48 Dose: 50 mls/hr Pantoprazole Sodium (Protonix Inj) 40 mg IVP Q12 [facility] Last Admin: 11/12/18 10:30 Dose: 40 mg Propranolol HCl (Inderal) 20 mg PO BID [facility] Last Admin: 11/12/18 10:30 Dose: Not Given Sertraline HCl (Zoloft) 25 mg PO DAILY [facility] Last Admin: 11/12/18 10:31 Dose: 25 mg Spironolactone (Aldactone) 50 mg PO DAILY [facility] Timolol Maleate (Timoptic 0.5% Ophth Soln) 1 drop OD BID [facility] Last Admin: 11/12/18 10:31 Dose: 1 drop - Labs Labs: 11/11/18 09:30 11/10/18 08:30 PT 16.0 SECONDS (9.4-12.5) H 11/11/18 09:30 INR 1.42 11/11/18 09:30 APTT 34.7 Seconds (26.9-38.3) 11/08/18 14:00 Assessment and Plan - Assessment and Plan (Free Text) Assessment: All medical record entries made by the resident were at my direction and personally dictated by me. I have reviewed the chart and agree that the record accurately reflects my personal performance of the history, physical exam, medical decision making. Continue octretide, agree with propanolol. Still has ascites. Will need to start diuretic. No clinical evidence of ensephalopathy, and last ammonia was 28. If diuretic resistant, need to consider TIPSS.
[2018-11-11 09:45] LABS: BASO # 0.04 K/mm3 (0.0-2.0); BASO % 0.6 % (0.0-3.0); EOS # 0.3 (0.0-0.7); EOS % 4.2 % (1.5-5.0); HEMOGLOBIN 10.3 g/dL (14.0-18.0); LYMPH % 30.7 % (22.0-35.0); MEAN CELL VOLUME 85.3 fl (80.0-105.0); MEAN CORPUSCULAR HGB CONC 32.8 g/dl (31.0-37.0); MEAN PLATELET VOLUME 9.5 fl (7.0-11.0); MONO # 0.6 (0.1-0.6); MONO % 8.6 % (1.0-6.0); RBC 3.68 10^6/uL (3.5-6.1); RED CELL DISTRIBUTION WIDTH 16.4 % (11.5-14.5); WHITE BLOOD COUNT 6.4 10^3/uL (4.5-11.0)
[2018-11-11 09:47] LABS: INR 1.42
[2018-11-11] MEDS: Dorzolamide 2% Opht Sol 10ml OD SCH ×3 (09:49→18:24)
--- NOTE | 2018-11-11 12:54 | PN ---
DATE: 11/11/2018 PULMONARY PROGRESS NOTE REFERRING PHYSICIAN: Evie Ponce MD SUBJECTIVE: The patient is seen lying in bed, in no acute distress. No overnight events reported. The patient is status post EGD, which was done yesterday. No headache, rhinitis, cough, shortness of breath, chest pain, abdominal pain, nausea, vomiting, diarrhea, leg pain or leg swelling reported. OBJECTIVE: VITAL SIGNS: Blood pressure 117/63, pulse 70, temperature 98.4, and oxygen saturation 98% on room air. GENERAL: No acute distress. HEENT: Moist mucous membranes. Small oral cavity. NECK: Supple. No JVD. LUNGS: Few scattered rhonchi. CARDIOVASCULAR: S1 and S2. ABDOMEN: Soft and nontender. EXTREMITIES: No bilateral lower extremity edema. NEUROLOGIC: Awake, alert and verbal. Hard of hearing. Following simple commands. MEDICATIONS: Reviewed. Brovana 15 mcg inhalation every 12 hours, Pulmicort 0.25 mg inhalation every 12 hours, Trusopt eye drop twice a day, octreotide acetate 1250 mcg every 24 hours, Protonix 40 mg IV push every 12 hours, propranolol 20 mg twice a day, Zoloft 25 mg daily, sodium chloride 0.45% at 1000 mL at 50 mL/hour, and Timolol eye drop twice a day. LABORATORY DATA: Reviewed. WBC 6.4, RBC 3.6, hemoglobin 10.3, hematocrit 31.4, and platelets 117. PT 16, INR 1.42. Blood cultures preliminary, no growth after 48 hours. EGD showed portal gastropathy, gastritis, esophagitis, diverticulosis, and rectal varices. No active bleed. IMPRESSION AND PLAN: Chronic obstructive lung disease, esophageal varices, gastric varices, history of hepatitis B, anemia, cirrhotic liver, history of alcohol abuse, history of ascites requiring paracentesis in the past, hard of hearing, history of hernia repair, portal gastropathy, esophagitis, diverticulosis, and rectal varices. From pulmonary point of view, continue inhaled bronchodilators, head of bed elevated at 45 degrees. Continue Gastroenterology followup, gastric prophylaxis, sequential compression devices to bilateral lower extremities for deep venous thrombosis prophylaxis as the patient cannot be on chemical prophylaxis due to recurrent bleed and anemia. Bed to chair, fall precautions. The patient was seen and examined with Dr. Atkins. Discussed assessment and plan as described above. The patient was seen and examined with Garry Gutierrez, nurse practitioner. Discussed assessment and plan as described above. Thank you for this consult. We will follow with you. Garry Gutierrez APN Theodore Atkins MD [email or web address]
[2018-11-11] MEDS: Octreotide 1,250 MCG in Dextrose 5% In Water 250 ML IV SCH (15:47)
[2018-11-11] MEDS: Sodium Chloride 0.45% 1,000 ML IV SCH (15:48)
--- NOTE | 2018-11-11 16:16 | CT ---
Date of service: 11/11/2018 PROCEDURE: CT Abdomen and Pelvis with and without intravenous contrast HISTORY: HCC four phase liver COMPARISON: None. TECHNIQUE: Axial images of the abdomen were obtained in the pre contrast, portal venous and delayed phases of enhancement. Coronal and sagittal reformats were generated. Contrast dose: 150 cc of Omni 350 Radiation dose: Total exam DLP = 936.68 mGy-cm. This CT exam was performed using one or more of the following dose reduction techniques: Automated exposure control, adjustment of the mA and/or kV according to patient size, and/or use of iterative reconstruction technique. FINDINGS: LOWER THORAX: Unremarkable. LIVER: There is atrophy of the liver with an irregular border consistent with cirrhosis. The liver measures 9 x 10 x 18 cm. There is no evidence of a focal lesion to suggest hepatocellular carcinoma. GALLBLADDER AND BILE DUCTS: Multiple small gallstones. Mildly distended gallbladder. PANCREAS: Unremarkable. No gross lesion or ductal dilatation. SPLEEN: Unremarkable. ADRENALS: Unremarkable. No mass. KIDNEYS AND URETERS: Unremarkable. No hydronephrosis. No solid mass. VASCULATURE: Unremarkable. No aortic aneurysm. Aortic calcification BOWEL: Unremarkable. No obstruction. No gross mural thickening. APPENDIX: Normal appendix. PERITONEUM: There is a large amount of ascites LYMPH NODES: Unremarkable. No enlarged lymph nodes. BLADDER: Unremarkable. REPRODUCTIVE: Unremarkable. BONES: No acute fracture. OTHER FINDINGS: None. IMPRESSION: There is atrophy of the liver with an irregular border consistent with cirrhosis. The liver measures 9 x 10 x 18 cm. There is no evidence of a focal lesion to suggest hepatocellular carcinoma. Multiple small gallstones. Mildly distended gallbladder.
--- NOTE | 2018-11-11 16:51 | CP.PCM.PCO ---
Physician Communication Note - Physician Communication Note Physician Communication Note: s/p egd resulted rectal varices,portal gastropathy,on ocreotide drip per gi
[2018-11-12 00:25] VITALS: RESP 20; TEMP 98.5
--- NOTE | 2018-11-12 01:18 | PN ---
DATE: 11/11/2018 SUBJECTIVE: The patient is a 72-year-old male. The patient was seen and examined at the bedside on 11/11/2018, looking comfortable. No fevers. No chills. No hematuria. No hematochezia. No headache. No dizziness. No chest pain. No palpitations. Discussion done with Dr. Oropeza. PHYSICAL EXAMINATION: VITAL SIGNS: Blood pressure 117/60, pulse 70, temperature 98.6, and oxygen saturation 98% on room air. HEENT: Head; normocephalic and atraumatic. Eyes; PERRLA. Extraocular muscles are intact. Conjunctivae clear. Nose patent. Mucous membranes are moist. NECK: Supple. No carotid bruit. No JVD or thyromegaly. CHEST: Bilaterally symmetrical. HEART: S1 and S2 positive. LUNGS: Clear to auscultation. ABDOMEN: Soft. Bowel sounds present. No organomegaly. EXTREMITIES: No edema. No cyanosis. NEUROLOGIC: The patient is awake and alert. Moving all four extremities. No focal deficits. MEDICATIONS: Brovana, Pulmicort, Protonix, propranolol, Zoloft. LABORATORY DATA: White blood cells 6.4, hemoglobin 10.3, hematocrit 31.4, and platelet 117. Blood cultures preliminary no growth after 48 hours. ASSESSMENT AND PLAN: Mr. Esteban Carrion is a 72-year-old male with chronic obstructive pulmonary disease, esophageal gastric varices, hepatitis B, anemia, cirrhosis of the liver, history of ethanol abuse, blind, deaf, history of ascites requiring paracentesis in the past, hard of hearing, history of hernia repair, portal gastropathy, esophagitis, diverticulosis, rectal varices, status post endoscopy and colonoscopy. Continue inhaled bronchodilators. Gastrointestinal and deep venous thrombosis prophylaxis. Fall precautions. Need good surgical therapy. Patrick, Chelsy, nurse practitioner's input, status post esophagogastroduodenoscopy results, rectal varices, portal gastropathy, on octreotide drip as per Gastroenterology. We will follow up. Evie Ponce MD JULIET
[2018-11-12] MEDS: Arformoterol 15 mcg/2 ml Inh Sol IH SCH (08:15)
[2018-11-12] MEDS: Budesonide 0.25 mg/2 ml Inhal Susp UD IH SCH (08:15)
[2018-11-12 08:41] VITALS: BP 112/61; O2SAT 94
[2018-11-12] MEDS: Dorzolamide 2% Opht Sol 10ml OD SCH (10:31)
--- NOTE | 2018-11-12 10:32 | CP.PCM.PN ---
<Aguilar Bonilla - Last Filed: 11/12/18 10:42> Objective - Vital Signs/Intake and Output Vital Signs (last 24 hours): Temp Pulse Resp BP Pulse Ox 98.5 F 58 L 20 112/61 94 L 11/12/18 06:00 11/12/18 10:30 11/12/18 06:00 11/12/18 10:30 11/12/18 06:00 Intake and Output: 11/12/18 11/12/18 06:59 18:59 Intake Total 1860 Balance 1860 - Medications Medications: Current Medications Arformoterol Tartrate (Brovana) 15 mcg IH [id number] [facility] Last Admin: 11/12/18 08:15 Dose: 15 mcg Budesonide (Pulmicort Respules) 0.25 mg IH [id number] [facility] Last Admin: 11/12/18 08:15 Dose: 0.25 mg Dorzolamide HCl (Trusopt) 0 ml OD BID [facility] Last Admin: 11/12/18 10:31 Dose: 1 drop Octreotide Acetate 1,250 mcg/ (Dextrose) 252.5 mls @ 5.05 mls/hr IV .Q24H [facility]; Protocol Last Admin: 11/11/18 15:47 Dose: 50 mcg/hr, 10.1 mls/hr Sodium Chloride (Sodium Chloride 0.45%) 1,000 mls @ 50 mls/hr IV .Q20H [facility] Last Admin: 11/11/18 15:48 Dose: 50 mls/hr Pantoprazole Sodium (Protonix Inj) 40 mg IVP Q12 [facility] Last Admin: 11/12/18 10:30 Dose: 40 mg Propranolol HCl (Inderal) 20 mg PO BID [facility] Last Admin: 11/12/18 10:30 Dose: Not Given Sertraline HCl (Zoloft) 25 mg PO DAILY [facility] Last Admin: 11/12/18 10:31 Dose: 25 mg Spironolactone (Aldactone) 50 mg PO DAILY [facility] Timolol Maleate (Timoptic 0.5% Oph Soln) 1 drop OD BID [facility] Last Admin: 11/12/18 10:31 Dose: 1 drop - Labs Labs: 11/11/18 09:30 11/10/18 08:30 PT 16.0 SECONDS (9.4-12.5) H 11/11/18 09:30 INR 1.42 11/11/18 09:30 APTT 34.7 Seconds (26.9-38.3) 11/08/18 14:00 Assessment and Plan - Assessment and Plan (Free Text) Plan: No further bleeding, continued ascites on physical exam. CT scan shows patent portal vein, no HCC. On propanolol, DC Octreotide. BP acceptable. Ordered furosemide 40 IV and spironolactone 50 mg PO daily. If does not tolerate diuretics due to drop in BP or does not respond, would consider TIPSS. Echo of heart show good EF, good right heart function and no pulm HTN <Kleber Kennedy - Last Filed: 11/12/18 11:31> Subjective - Date & Time of Evaluation Date of Evaluation: 11/12/18 Time of Evaluation: 10:32 - Subjective Subjective: Hepatobiliary surgery progress note for Dr. Wilkinson Pt seen and examined at bedside. Pt is resting comfortably. Denies fever, chills, chest pain, sob, abdominal pain, n/v/d, hematochezia, melena, hematemes is, dizziness, lightheadedness. No BM today. No difficulties urinating. Octeotride gtt at 50 mcg/hr, 1/2 NS at 50 mL/hr currently infusing. Objective - Vital Signs/Intake and Output Vital Signs (last 24 hours): Temp Pulse Resp BP Pulse Ox 98.5 F 58 L 20 112/61 94 L 11/12/18 06:00 11/12/18 10:30 11/12/18 06:00 11/12/18 10:30 11/12/18 06:00 Intake and Output: 11/12/18 11/12/18 06:59 18:59 Intake Total 1860 Balance 1860 - Medications Medications: Current Medications Arformoterol Tartrate (Brovana) 15 mcg IH [id number] [facility] Last Admin: 11/12/18 08:15 Dose: 15 mcg Budesonide (Pulmicort Respules) 0.25 mg IH [id number] [facility] Last Admin: 11/12/18 08:15 Dose: 0.25 mg Dorzolamide HCl (Trusopt) 0 ml OD BID [facility] Last Admin: 11/12/18 10:31 Dose: 1 drop Octreotide Acetate 1,250 mcg/ (Dextrose) 252.5 mls @ 5.05 mls/hr IV .Q24H [facility]; Protocol Last Admin: 11/11/18 15:47 Dose: 50 mcg/hr, 10.1 mls/hr Sodium Chloride (Sodium Chloride 0.45%) 1,000 mls @ 50 mls/hr IV .Q20H [facility] Last Admin: 11/11/18 15:48 Dose: 50 mls/hr Pantoprazole Sodium (Protonix Inj) 40 mg IVP Q12 [facility] Last Admin: 11/12/18 10:30 Dose: 40 mg Propranolol HCl (Inderal) 20 mg PO BID [facility] Last Admin: 11/12/18 10:30 Dose: Not Given Sertraline HCl (Zoloft) 25 mg PO DAILY [facility] Last Admin: 11/12/18 10:31 Dose: 25 mg Timolol Maleate (Timoptic 0.5% Ophth Soln) 1 drop OD BID [facility] Last Admin: 11/12/18 10:31 Dose: 1 drop - Labs Labs: 11/11/18 09:30 11/10/18 08:30 PT 16.0 SECONDS (9.4-12.5) H 11/11/18 09:30 INR 1.42 11/11/18 09:30 APTT 34.7 Seconds (26.9-38.3) 11/08/18 14:00 - Additional Findings Additional findings: - Constitutional Appears: Cachectic, Chronically Ill - Head Exam Head Exam: ATRAUMATIC, NORMAL INSPECTION, NORMOCEPHALIC - Eye Exam Eye exam: EOMI. Pt legally blind. - ENT Exam ENT Exam: Mucous Membranes Dry. Pt hard of hearing. - Respiratory Exam Respiratory Exam: Clear to Auscultation Bilateral, NORMAL BREATHING PATTERN. absent: Respiratory Distress - Cardiovascular Exam Cardiovascular Exam: +S1, +S2. RRR. - GI/Abdominal Exam GI & Abdominal Exam: Normal Bowel Sounds, Soft, (+) Distension with ascites, with minimal tenderness. Absent: Rigidity or Rebound - Extremities Exam Extremities exam: Negative for: calf tenderness, pedal edema - Neurological Exam Neurological exam: Alert, Awake - Psychiatric Exam Psychiatric exam: Flat Affect, Normal Mood - Skin Skin Exam: Dry, Intact, Normal Color, Warm Assessment and Plan - Assessment and Plan (Free Text) Assessment: 72M w/ PMH of alcohol abuse, cirrhosis, ascites s/p paracentesis x2, esophageal varices s/p rubber banding (04/2017) consulted for upper GI bleed. Plan: 11/10 EGD showed portal hypertensive gastropathy, no signs of bleeding. Pt with large blood bowel movement in the endoscopy room. Pt transfused 1 unit of leukoreduced pRBCs. Flex sigmoidoscopy showed rectal varices, diverticulosis, no active bleeding. 11/[address] shows patent portal vein, liver cirrhosis, no signs of HCC. Medications: 1/2NS @50cc/hr discontinued as pt is eating well 25% Albumin 12.5 gm IV x4 doses completed Octreotide @ 50cc/hr discontinued as per Dr. Wilkinson's recommendations Propanolol 20 mg PO BID decreased to 10 mg PO BID Aldactone 50 mg PO once daily Lasix 40 mg IVP x 1 today Continue to monitor renal fxn 11/11: H/H is 10.3/31.4. Previously 9.5/29.8 Received 1 unit pRBC as above, with appropriate response. Today's labs not drawn as pt refused. To avoid hypotension recommended meds for discharge: Lasix 20 mg PO once daily at 8 am. Propanolol 10 mg PO BID at 10 am and 6 pm. Aldactone 50 mg PO once daily at noon. If pt unable to tolerate medications, or develops hypotension, a TIPS procedure may be needed. Pt's family provided with contact info for Dr. Wilkinson, and informed to follow up in the office. Further recs as per GI and primary care team. Case discussed with Dr. Ivey PGY1 Pager# [phone]
--- NOTE | 2018-11-12 14:46 | CP.PCM.PN ---
<Joleen Rene - Last Filed: 11/12/18 15:06> Subjective - Date & Time of Evaluation Date of Evaluation: 11/12/18 Time of Evaluation: 14:36 - Subjective Subjective: Gastroenterology Fellow/PGY6 Progress Note Patient resting comfortably. No bowel movements overnight confirmed by nursing. Tolerating diet. A 12-point review of systems negative except for as above. Objective - Vital Signs/Intake and Output Vital Signs (last 24 hours): Temp Pulse Resp BP Pulse Ox 98.5 F 58 L 20 112/61 94 L 11/12/18 06:00 11/12/18 10:30 11/12/18 06:00 11/12/18 12:52 11/12/18 06:00 Intake and Output: 11/12/18 11/12/18 06:59 18:59 Intake Total 1860 Balance 1860 - Medications Medications: Current Medications Arformoterol Tartrate (Brovana) 15 mcg IH [id number] [facility] Last Admin: 11/12/18 08:15 Dose: 15 mcg Budesonide (Pulmicort Respules) 0.25 mg IH [id number] [facility] Last Admin: 11/12/18 08:15 Dose: 0.25 mg Dorzolamide HCl (Trusopt) 0 ml OD BID [facility] Last Admin: 11/12/18 10:31 Dose: 1 drop Furosemide (Lasix) 20 mg PO DAILY [facility] Octreotide Acetate 1,250 mcg/ (Dextrose) 252.5 mls @ 5.05 mls/hr IV .Q24H [facility]; Protocol Stop: 11/12/18 15:00 Last Admin: 11/11/18 15:47 Dose: 50 mcg/hr, 10.1 mls/hr Lactulose (Enulose) 15 gm PO BID [facility] Pantoprazole Sodium (Protonix Inj) 40 mg IVP Q12 [facility] Last Admin: 11/12/18 10:30 Dose: 40 mg Propranolol HCl (Inderal) 10 mg PO BID [facility] Sertraline HCl (Zoloft) 25 mg PO DAILY [facility] Last Admin: 11/12/18 10:31 Dose: 25 mg Spironolactone (Aldactone) 50 mg PO DAILY [facility] Last Admin: 11/12/18 12:52 Dose: 50 mg Timolol [facility] 1 drop OD BID [facility] Last Admin: 11/12/18 10:31 Dose: 1 drop - Labs Labs: 11/11/18 09:30 11/10/18 08:30 PT 16.0 SECONDS (9.4-12.5) H 11/11/18 09:30 INR 1.42 11/11/18 09:30 APTT 34.7 Seconds (26.9-38.3) 11/08/18 14:00 - Constitutional Appears: Non-toxic, No Acute Distress - Head Exam Head Exam: ATRAUMATIC, NORMOCEPHALIC - Eye Exam Eye Exam: EOMI, PERRL. absent: Scleral icterus Pupil Exam: PERRL. absent: Miosis, Mydriatic - ENT Exam ENT Exam: Mucous Membranes Moist, Normal Oropharynx - Neck Exam Neck Exam: Full ROM, Normal Inspection - Respiratory Exam Respiratory Exam: Clear to Ausculation Bilateral. absent: Rales, Rhonchi, Wheezes - Cardiovascular Exam Cardiovascular Exam: RRR, +S1, +S2. absent: Gallop, Rubs - GI/Abdominal Exam GI & Abdominal Exam: Soft, Normal Bowel Sounds. absent: Distended, Firm, Guarding, Rigid, Tenderness, Organomegaly, Rebound - Extremities Exam Extremities Exam: Full ROM, Normal Inspection. absent: Pedal Edema - Neurological Exam Neurological Exam: Alert, Awake - Psychiatric Exam Psychiatric exam: Normal Affect, Normal Mood - Skin Skin Exam: Dry, Intact, Normal Color, Warm Assessment and Plan - Assessment and Plan (Free Text) Assessment: 72 year old male with a PMH of decompensated Alcoholic cirrhosis 2/2 ascites s/p multiple paracentesis (last 10/13/18) and esophageal variceal bleed (s/p EVL 04/2017), Blind/Hearing impairment admitted for GI bleed 2/2 rectal varices on sigmoidoscopy 11/10/18. Plan: -MELD 15 -completed octreotide drip for 72 hours at 1500 today -no further episodes of overt rectal bleeding -continue Propranolol 20mg BID for variceal bleed secondary prophylaxis, HR 50- 60s-monitor -restarted on spironolactone 50mg daily today, monitor BP parameters -titrate diuretics to maintain euvolemic status, if signs of volume overload- consider addition of lasix 20mg daily as initial diuresis protocol of combination therapy- lasix:spironolactone -restart Lactulose QHS and titrate to 2-3BMs -continue PPI ACB -advance to low sodium diet as tolerated -will follow clinical course <Deyanira Oropeza V - Last Filed: 11/12/18 22:10> Objective - Vital Signs/Intake and Output Vital Signs (last 24 hours): Temp Pulse Resp BP Pulse Ox 98.5 F 62 20 112/61 94 L 11/12/18 06:00 11/12/18 14:00 11/12/18 06:00 11/12/18 12:52 11/12/18 06:00 - Labs Labs: 11/11/18 09:30 11/10/18 08:30 PT 16.0 SECONDS (9.4-12.5) H 11/11/18 09:30 INR 1.42 11/11/18 09:30 APTT 34.7 Seconds (26.9-38.3) 11/08/18 14:00 Attending/Attestation - Attestation I have personally seen and examined this patient.: Yes I have fully participated in the care of the patient.: Yes I have reviewed all pertinent clinical information, including history, physical exam and plan: Yes Notes (Text): This patient was seen and evaluated earlier today. Patient is planned to be discharged. Continue the diuretics and lactulose. Patient has chronic constipation. Lactulose is beneficial for both constipation and also for encephalopathy in this patient. Poorly compliant patient did have rectal bleed ing from rectal varices. Less likely differential is diverticulosis. History of colon polyps. Patient refused colonoscopy preparation. Flex sig was done without any po prep. Refuses to take bowel preparation. Patient's brother was told multiple times in the past about his patient's poor compliance. Details for the patient follow-up at the [facility] has been given to the patient already. Thank you Dr. Ponce for allowing us to participate in the care of the patient 11/12/18 22:07
[2018-11-12 15:30] VITALS: PULSE 62
--- NOTE | 2018-11-12 17:16 | PN ---
DATE: 11/12/2018 PULMONARY PROGRESS NOTE REFERRING PHYSICIAN: Evie Ponce MD SUBJECTIVE: The patient is seen, lying in bed, in no acute distress. No overnight events reported. No headache, rhinitis, cough, shortness of breath, chest pain, abdominal pain, nausea, vomiting, diarrhea, leg pain or leg swelling reported. PHYSICAL EXAMINATION: GENERAL: No acute distress. VITAL SIGNS: Blood pressure 112/61, pulse 58, temperature 98.5, and oxygen saturation 94% on room air. HEENT: Moist mucous membranes. Small oral cavity. NECK: Supple. No JVD. LUNGS: Fair airflow bilaterally. CARDIOVASCULAR: S1 and S2. ABDOMEN: Soft and nontender. No distention. EXTREMITIES: No bilateral lower extremity edema. NEUROLOGIC: Awake, alert and verbal. Following commands. Hard of hearing. MEDICATIONS: Reviewed. Brovana 15 mcg every 12 hours, Pulmicort 0.25 mg inhalation every 12 hours, brinzolamide eye drops twice a day, Lasix 20 mg daily, lactulose 15 g twice a day, Protonix 40 mg IV push every 12 hours, propranolol 10 mg twice a day, Zoloft 25 mg daily, spironolactone 50 mg daily, Timolol one drop twice a day. LABORATORY DATA: Reviewed. Blood cultures preliminary, no growth after three days. Liver CT shows atrophy of the liver with an irregular border consistent with cirrhosis. Liver measures 9 x 10 x 18 cm. No evidence of focal lesion to suggest hepatocellular carcinoma. Multiple small gallstones, mildly distended gallbladder. IMPRESSION AND PLAN: Chronic obstructive lung disease, esophageal varices, gastric varices, history of hepatitis B, anemia, cirrhotic liver, history of alcohol abuse, history of ascites requiring paracentesis in the past, hard of hearing, history of hernia repair, portal gastropathy, esophagitis, diverticulitis, and rectal varices. Gastric prophylaxis. Continue sequential compression devices to bilateral lower extremities for deep venous thrombosis prophylaxis. The patient cannot be on chemical prophylaxis due to anemia. Fall precautions. Out of bed to chair. Continue inhaled bronchodilators. Head of bed elevated 45 degrees. Continue gastrointestinal followup. This patient was seen and examined with Dr. Atkins. Discussed assessment and plan as described above. The patient was seen and examined with Garry Gutierrez, nursing practitioner. Discussed assessment and plan as described above. Thank you for this consult. We will follow with you. Garry Gutierrez APN Theodore Atkins MD [facility] # [id number]
== END 2018-11-12 17:57 | disposition home or self-care (01) | DRG 378 ==
LOC: ED 12:57 → ERH 15:27 → 3RNO 17:00
PROVIDERS: ADMIT Internal Medicine; ATTEND Internal Medicine
PROC: 0DJ08ZZ Inspection of Upper Intestinal Tract, Via Natural or Artificial Opening Endoscopic (ICD-10-PCS; 2018-11-10)
PROC: 30233N1 Transfusion of Nonautologous Red Blood Cells into Peripheral Vein, Percutaneous Approach (ICD-10-PCS; principal; 2018-11-10 14:00)
PROC: 0DJD8ZZ Inspection of Lower Intestinal Tract, Via Natural or Artificial Opening Endoscopic (ICD-10-PCS; 2018-11-10 14:00)
DX: K92.0 Hematemesis (principal); B18.1 Chronic viral hepatitis B without delta-agent; K76.6 Portal hypertension; G93.40 Encephalopathy, unspecified; K62.5 Hemorrhage of anus and rectum; I86.8 Varicose veins of other specified sites; I85.10 Secondary esophageal varices without bleeding; K70.31 Alcoholic cirrhosis of liver with ascites; D64.9 Anemia, unspecified; I25.10 Atherosclerotic heart disease of native coronary artery without angina pectoris; I10 Essential (primary) hypertension; K31.89 Other diseases of stomach and duodenum; F03.90 Unspecified dementia, unspecified severity, without behavioral disturbance, psychotic disturbance, mood disturbance, and anxiety; J44.9 Chronic obstructive pulmonary disease, unspecified; K59.09 Other constipation; K29.80 Duodenitis without bleeding; F10.10 Alcohol abuse, uncomplicated; K31.84 Gastroparesis; K21.9 Gastro-esophageal reflux disease without esophagitis; H54.8 Legal blindness, as defined in USA; H91.92 Unspecified hearing loss, left ear; F17.200 Nicotine dependence, unspecified, uncomplicated; Z91.19 Patient's noncompliance with other medical treatment and regimen; Z86.73 Personal history of transient ischemic attack (TIA), and cerebral infarction without residual deficits; Z86.010 Personal history of colon polyps

== ENCOUNTER 2018-12-02 12:11 | Inpatient (IN) | payer MEDICARE, MEDICAID ==
[2018-12-02 12:18] VITALS: BMI 20.1
--- NOTE | 2018-12-02 13:43 | ED PDOC ---
Arrival/HPI - General Chief Complaint: GI Problem Historian: EMS - History of Present Illness Narrative History of Present Illness (Text): 12/02/18 13:42 Esteban Carrion is a 73 year old male, with past medical history of dementia, cirrhosis, hypertension, and stroke, brought by EMS to the emergency department for vomiting blood since two days. Per EMS, pt vomited blood clots yesterday. Patient was seen on 11/08/18 and discharged on 11/12/18 for similar complaints. Patient does not respond to questions. Further HPI and ROS limited secondary to dementia. Time/Duration: < week (2 days) Symptom Onset: Sudden Activities at Onset: Light Context: Home Past Medical History - Provider Review Nursing Documentation Reviewed: Yes - Infectious Disease Hx of Infectious Diseases: None - Tetanus Immunization Tetanus Immunization: Unknown - Past Medical History Past Medical History: No Previous - Cardiac Hx Cardiac Disorders: Yes (CAD) Hx Hypertension: Yes - Pulmonary Hx Chronic Obstructive Pulmonary Disease (COPD): Yes - Neurological HX Cerebrovascular Accident: Yes (no residual) - HEENT Hx HEENT Disorder: Yes Hx Blind: Yes Hx Cataracts: Yes (both eyes) Hx Deafness: Yes (left ear, [place] r ear) Hx Glaucoma: Yes (left eye) Other/Comment: legally blind - Renal Hx Renal Disorder: No - Endocrine/Metabolic Hx Diabetes Mellitus Type 2: (denies) - Hematological/Oncological Hx Blood Transfusions: Yes (10/30/16) Hx Blood Transfusion Reaction: No - Integumentary Hx Dermatological Disorder: No - Musculoskeletal/Rheumatological Hx Arthritis: Yes - Gastrointestinal Hx Gastrointestinal Disorders: Yes (CHOLELITHIASIS,COLITIS,ESOPHAGEAL VARICES,H/O PARACENTESIS,) Hx Gall Bladder Disease: Yes (gallstones) Hx Gastroesophageal Reflux: Yes Other/Comment: alcoholic cirrhosis of the liver, ascites, r inguinal hernia, lower and upper gi bleed - Genitourinary/Gynecological Hx Incontinence: Yes - Psychiatric Hx Psychophysiologic Disorder: Yes Hx Depression: Yes Hx Psychosis: Yes Hx Substance Use: No Other/Comment: alcohol abuse - Past Surgical History Past Surgical History: No Previous - Surgical History Hx Orthopedic Surgery: Yes (l hip fx sx 10/20/16) Other/Comment: us guided paracenthesis 06/23/14. hernia repair 04/2018 - Anesthesia Hx Anesthesia Reactions: No Hx Malignant Hyperthermia: No - Suicidal Assessment Feels Threatened In Home Enviroment: No Family/Social History - Physician Review Nursing Documentation Reviewed: Yes Family/Social History: Unknown Family HX Smoking Status: Former Smoker Hx Alcohol Use: Yes (h/o etoh) Hx Substance Use: No Hx Substance Use Treatment: No Allergies/Home Meds Allergies/Adverse Reactions: Allergies No Known Allergies Allergy (Verified 12/02/18 12:17) Home Medications: Home Meds Medication Instructions Recorded Confirmed Unobtainable 12/02/18 12/02/18 Review of Systems - Review of Systems Systems not reviewed;Unavailable: Dementia Physical Exam Vital Signs Reviewed: Yes Vital Signs Temp Pulse Resp BP Pulse Ox 12/02/18 12:15 99.0 F 139 H 18 109/59 L 95 Temperature: Afebrile Blood Pressure: Normal Pulse: Tachycardic Respiratory Rate: Normal Appearance: Positive for: Non-Toxic, Unkept, Cachectic Pain Distress: None Mental Status: Positive for: other (Alert) - Systems Exam Head: Present: Atraumatic, Normocephalic Pupils: Present: PERRL Extroacular Muscles: Present: EOMI Conjunctiva: Present: Other ((+)pallor) Mouth: Present: Dry, Other (dried blood present around mouth) Neck: Present: Normal Range of Motion Respiratory/Chest: Present: Clear to Auscultation, Good Air Exchange. No: Respiratory Distress, Accessory Muscle Use, Wheezes, Rales, Rhonchi Cardiovascular: Present: Normal S1, S2, Tachycardic, Other (regular rhythm). No: Murmurs, Rub, Gallop Abdomen: No: Tenderness, Distention, Peritoneal Signs Rectal: No: Gross Blood, Melena Back: Present: Normal Inspection Upper Extremity: Present: Normal Inspection. No: Cyanosis, Edema Lower Extremity: Present: Normal Inspection. No: Edema Neurological: Present: CN II-XII Intact, Speech Normal, Motor Func Grossly Intact Skin: Present: Warm, Dry, Pale. No: Rashes Psychiatric: Present: Alert, Other (yelling ). No: Oriented x 3 Medical Decision Making ED Course and Treatment: 12/02/18 13:42 Impression: Patient is a 73 year old male with a past medical history of dementia, cirrhosis, hypertension, COPD, and stroke, who presents to the emergency department complaining of vomiting blood since 2 days. Plan: -- EKG -- Labs -- Chest X-Ray -- Protonix Inj -- Urinalysis -- Reassess and disposition Prior Visits: Notes and results from previous visits were reviewed. Progress Notes: 12/02/18 14:00 Nursing staff reports patient inserted finger (has dried blood on fingers) into rectum. 12/02/18 14:35 Spoke to daughter at bedside, who informs patient was vomiting blood since two days and denies any other complaints. Signed blood consent form. 12/02/18 15:[address] Ponce, accepts patient for admission. Requests consult to ICU. 12/02/18 15:[address] Johnson, who will come down to evaluate patient. 12/02/18 16:10 Dr. Johnson in ED to evaluate patient. 12/02/18 16:18 Patient has not had any vomiting in the ED. 12/02/18 16:50 Pt now has melanotic stools. Plan CT abd/pelvis. 12/02/18 17:04 Dr. Johnson request VBG to determine if pt meets criteria for ICU. Requests hold CT for now. - RAD Interpretation Radiology Orders: 12/02/18 12:48 CHEST PORTABLE [RAD] Stat - EKG Interpretation Interpreted by ED Physician: Yes Type: 12 lead EKG - Medication Orders Current Medication Orders: Discontinued Medications Pantoprazole Sodium (Protonix Inj) 40 mg IVP STAT STA Stop: 12/02/18 12:52 - Scribe Statement The provider has reviewed the documentation as recorded by the Scribe Robby Nash All medical record entries made by the Scribe were at my direction and personally dictated by me. I have reviewed the chart and agree that the record accurately reflects my personal performance of the history, physical exam, medical decision making, and the department course for this patient. I have also personally directed, reviewed, and agree with the discharge instructions and disposition. Disposition/Present on Arrival - Present on Arrival Any Indicators Present on Arrival: No History of DVT/PE: No History of Uncontrolled Diabetes: No Urinary Catheter: No History of Decub. Ulcer: No History Surgical Site Infection Following: None - Disposition Have Diagnosis and Disposition been Completed?: Yes Diagnosis: GI bleed, Anemia, Hyperammonemia, Dehydration Disposition: HOSPITALIZED Disposition Time: 15:20 Patient Plan: Admission Patient Problems: Current Active Problems Problem Status Onset Anemia Acute Dehydration Acute GI bleed Acute Hyperammonemia Acute Condition: IMPROVED
[2018-12-02 14:12] LABS: BASO # 0.06 K/mm3 (0.0-2.0); BASO % 0.5 % (0.0-3.0); EOS # 0.1 (0.0-0.7); LYMPH # 3.3 (1.2-3.4); LYMPH % 28.3 % (22.0-35.0); MEAN CELL VOLUME 82.6 fl (80.0-105.0); MEAN CORPUSCULAR HEMOGLOBIN 26.4 pg (25.0-35.0); MEAN PLATELET VOLUME 10.5 fl (7.0-11.0); MONO % 8.9 % (1.0-6.0); RBC 2.42 10^6/uL (3.5-6.1); RED CELL DISTRIBUTION WIDTH 17.9 % (11.5-14.5); WHITE BLOOD COUNT 11.5 10^3/uL (4.5-11.0)
--- NOTE | 2018-12-02 14:13 | RAD ---
Date of service: 12/02/2018 HISTORY: hematemesis COMPARISON: No prior. TECHNIQUE: 1 view obtained. FINDINGS: LUNGS: No active pulmonary disease. PLEURA: No significant pleural effusion identified, no pneumothorax apparent. CARDIOVASCULAR: Aortic calcification Normal cardiac size. No pulmonary vascular congestion. OSSEOUS STRUCTURES: No significant abnormalities. VISUALIZED UPPER ABDOMEN: Normal. OTHER FINDINGS: None. IMPRESSION: No active disease.
[2018-12-02 14:24] LABS: HEMOGLOBIN 6.4 g/dL (14.0-18.0)
[2018-12-02 14:27] LABS: INR 1.5; PARTIAL THROMBOPLASTIN TIME 34.4 Seconds (26.9-38.3); PROTHROMBIN TIME 16.9 SECONDS (9.4-12.5)
[2018-12-02 14:36] LABS: TROPONIN I < 0.01 ng/mL
[2018-12-02 14:47] LABS: ALB/GLOB RATIO 0.7 (1.1-1.8); ALBUMIN 2.3 g/dL (3.0-4.8); ALT/SGPT 25 U/L (7-56); AMYLASE 64 U/L (35-125); AST/SGOT 45 U/L (17-59); BLOOD UREA NITROGEN 37 mg/dL (7-21); CALCIUM 8.3 mg/dL (8.4-10.5); GFR NON-AFRICAN AMERICAN > 60; LIPASE 184 U/L (23-300)
[2018-12-02] MEDS ORDERED: Octreotide 1,250 MCG in Dextrose 5% In Water 250 ML IV STA (16:56)
[2018-12-02] MEDS ORDERED: Octreotide 1,250 MCG in Dextrose 5% In Water 250 ML IV SCH (17:00)
[2018-12-02] MEDS ORDERED: Albumin Human 25% (12.5 gm/50 ml) IV SCH (17:15)
[2018-12-02] MEDS: cefTRIAXone 1 gm 1 GM/100 ML BAG IVPB SCH (18:20)
--- NOTE | 2018-12-02 21:47 | CARD ---
APPROVED REPORT Date of service: 12/02/2018 EKG Measurement Heart [id number] <Conclusion> Probably Atrial flutter with 2:1 AV conduction Low voltage QRS Nonspecific ST and T wave abnormality Abnormal ECG
[2018-12-02] MEDS ORDERED: Pneumococcal 23-Valent Vaccine IM ONE (22:20)
[2018-12-02] MEDS ORDERED: Vitamins A & D Oint UD Foilpak TOP PRN (23:20)
--- NOTE | 2018-12-02 23:37 | CP.PCM.PN ---
Subjective - Date & Time of Evaluation Date of Evaluation: 12/02/18 Time of Evaluation: 11:25 - Subjective Subjective: Evaluated pt. for agitation. Pt. is A&O x 1. C/O abdominal pain, but unable to elaborate. Pt. appears to be confused. Exam significant for generalized abdominal pain with more tenderness in RUQ and epigastric region. Obtain stat U/S and bladder scan. Objective - Vital Signs/Intake and Output Vital Signs (last 24 hours): Temp Pulse Resp BP Pulse Ox 98.5 F 109 H 25 H 82/43 L 100 12/02/18 22:10 12/02/18 22:10 12/02/18 22:10 12/02/18 22:10 12/02/18 22:00 Intake and Output: 12/02/18 12/03/18 18:59 06:59 Intake Total 25 325 Balance 25 325 - Medications Medications: Current Medications Pantoprazole Sodium (Protonix 40mg Ivpb) 40 mg in 100 mls @ 20 mls/hr IVPB .Q5H JUANITA Octreotide Acetate 1,250 mcg/ (Dextrose) 252.5 mls @ 5.05 mls/hr IV .Q24H JUANITA; Protocol Last Admin: 12/02/18 18:58 Dose: 25 mcg/hr, 5.05 mls/hr Ceftriaxone Sodium (Rocephin 1 Gram Ivpb) 1 gm in 100 mls @ 100 mls/hr IVPB DAILY JUANITA; Protocol Last Admin: 12/02/18 18:20 Dose: 100 mls/hr Albumin Human (Albumin Human 25% (12.5 Gm/50 Ml)) 50 mls @ 1 mls/min IVPB Q4H JUANITA Stop: 12/04/18 14:04 Vitamin A (Vitamin A & D Oint Ud Foilpak) 1 ea TOP Q2 PRN PRN Reason: Dry mouth - Labs Labs: 12/02/18 13:44 12/02/18 13:44 PT 16.9 SECONDS (9.4-12.5) H 12/02/18 13:44 INR 1.50 12/02/18 13:44 APTT 34.4 Seconds (26.9-38.3) 12/02/18 13:44
[2018-12-03] MEDS: Albumin Human 25% (12.5gm/50 ML) IVPB SCH ×5 (00:46→13:25)
--- NOTE | 2018-12-03 01:06 | CON ---
DATE: 12/02/2018 CONSULTATION REPORT HISTORY OF PRESENT ILLNESS: This is a 73-year-old gentleman with history of hepatitis B, liver cirrhosis, dementia, hypertension, and prior stroke who was reported to be vomiting fresh blood since 2 days ago. He, however, did not have hematemesis since admission to [facility] ER. Upon admission to [facility] ER, he received lactulose orally and got diarrhea. Since then, it does not appear to be nita blood coming out of his rectum though. Of note, the patient did have upper endoscopy on 11/24 (1 week ago) which did not demonstrate oesophageal varices, but only portal hypertensive gastropathy. The patient had lower GI endoscopy as well, however, with poor preparation. Upon admission to [facility] ER, he was found to have hemoglobin level of 6.4 and been fairly tachycardic. The patient a little bit agitated as well. He refuses to get blood drawn for VBG for lactic acid; however, his first troponin was negative. PAST MEDICAL HISTORY: Dementia, cirrhosis, hepatitis B, hypertension, and stroke. FAMILY HISTORY: Noncontributory. MEDICATIONS AT HOME: Unobtainable. SOCIAL HISTORY: The patient is an ex-smoker. No alcohol or illicit drug abuse. ALLERGIES: NKDA. REVIEW OF SYSTEMS: Review of 12-organ system, other than mentioned in history of present illness, is negative. PHYSICAL EXAMINATION: VITAL SIGNS: Heart rate 120-125, appears to be regular, blood pressure 102/51, oxygen saturation 100% on room air. HEENT: Head and neck atraumatic. LUNGS: Clear to auscultation bilaterally. HEART: Regular rate and rhythm, S1, S2 normal. ABDOMEN: Soft, slightly distended, nontender. MUSCULOSKELETAL: No C/C/E. NEURO: The patient moves all extremities spontaneously. SKIN: Moist. PSYCH: Patient is demented, confused. LABORATORY DATA: WBC 11.5, hemoglobin 6.4, platelet count 249. Sodium 137, potassium 4.1, chloride 107, carbon dioxide 22, BUN 37, creatinine 0.5, glucose 114, ammonia level 68, AST 25, ALT 25, total bilirubin 1.3, INR 1.5. Chest x-ray: No active pulmonary disease. ASSESSMENT AND PLAN: This 73-year-old gentleman with upper gastrointestinal bleed and severe anemia. Judging by the lack of end organ dysfunction (no renal dysfunction, no chest pain and negative troponin as well and no specific ischemic changes on EKG, no AMS) and relatively stable blood pressure despite mild tachycardia, it is unclear whether the patient's bleeding is massive. The patient is noncooperative with blood draw, thus lactic acid level is not available to make a little bit better objective eval of his perfusion status. Encouraging is the fact that he had endoscopy one week ago and it did not show any esophageal varices. Possibility of upper gastrointestinal bleed due to portal hypertensive gastropathy is more likely. At the present time, however, I will proceed with octreotide drip, Protonix drip, gastrointestinal consult, surgical consult on standby, albumin, antibiotics, serial CBC, and n.p.o. until gastrointestinal consult is obtained. The patient will be going to ICU for further management and monitoring. We will continue with IV fluid resuscitation and a blood transfusion to maintain hemoglobin level between 8 and 10. Once hemodynamic stability more firmly ascertained, transfuison threshold may be Hb at 7. Hopefully, as the patient becomes more comfortable, he will be more cooperative and we will be able to get blood draws as well. We will continue to target euvolemia, euglycemia, normothermia, and oxygen saturation more than 90%. We will continue with DVT, GI prophylaxis. ccm time 40 min Greg Johnson MD JULIET
--- NOTE | 2018-12-03 01:50 | CP.PCM.CON ---
History of Present Illness - History of Present Illness History of Present Illness: SURGERY CONSULT NOTE FOR DR. CM Reason: GI bleed 73M presents to the hospital for blood per rectum. Per nurse patient has multip le episode of dark tarry stools in the emergency department which have resolved since being in the ICU. Patient does have a history of GI bleed and has been worked up in the past. Bleed is associated with some abdominal pain, and also hematemesis. Patient has a history of alcohol abuse, leading to cirrhosis and portal hypertension. He recently underwent upper and lower endoscopies showing portal hypertensive gastropathy, rectal varices and diverticulosis. He is currently in the ICU and is s/p transfusion of 2PRBCs. PMH: Dementia, blindness, deafness, cirrhosis, hypertension, stroke, alcohol abuse, COPD, Esophageal varices PSH: L hip ORIF Social: alcohol abuse Allergies: NKDA Past Patient History - Infectious Disease Hx of Infectious Diseases: None - Tetanus Immunizations Tetanus Immunization: Unknown - Past Social History Smoking Status: Former Smoker - CARDIAC Hx Cardiac Disorders: Yes (CAD) Hx Hypercholesterolemia: Yes Hx Hypertension: Yes - PULMONARY Hx Respiratory Disorders: Yes Hx Chronic Obstructive Pulmonary Disease (COPD): Yes - NEUROLOGICAL Hx Neurological Disorder: Yes HX Cerebrovascular Accident: Yes (no residual) - HEENT Hx HEENT Problems: Yes Hx Blind: Yes Hx Cataracts: Yes (both eyes) Hx Deafness: Yes (left ear, [place] r ear) Hx Glaucoma: Yes (left eye) Other/Comment: legally blind - RENAL Hx Chronic Kidney Disease: No - ENDOCRINE/METABOLIC Hx Diabetes Mellitus Type 2: (denies) - HEMATOLOGICAL/ONCOLOGICAL Hx Blood Disorders: Yes (sepsis) Hx Anemia: Yes Hx Cirrhosis: Yes Hx Hepatitis B: (denies) Other/Comment: blood transfusion - INTEGUMENTARY Hx Dermatological Problems: No - MUSCULOSKELETAL/RHEUMATOLOGICAL Hx Falls: Yes (past) - GASTROINTESTINAL Hx Gastrointestinal Disorders: Yes (CHOLELITHIASIS,COLITIS,ESOPHAGEAL VARICES,H/O PARACENTESIS,) Hx Gall Bladder Disease: Yes (gallstones) Hx Gastroesophageal Reflux: Yes Hx Liver Failure: (cirrhosis) Other/Comment: alcoholic cirrhosis of the liver, ascites, r inguinal hernia, lower and upper gi bleed, paracenthesis - GENITOURINARY/GYNECOLOGICAL Hx Genitourinary Disorders: Yes Hx Incontinence: Yes - PSYCHIATRIC Hx Substance Use: No - SURGICAL HISTORY Hx Surgeries: Yes Hx Orthopedic Surgery: Yes (l hip fx sx 10/20/16) Other/Comment: us guided paracenthesis 06/23/14. hernia repair 04/2018 - ANESTHESIA Hx Anesthesia Reactions: No Hx Malignant Hyperthermia: No Meds Allergies/Adverse Reactions: Allergies Allergy/AdvReac Type Severity Reaction Status Date / Time No Known Allergies Allergy Verified 12/02/18 12:17 - Medications Medications: Current Medications Pantoprazole Sodium (Protonix 40mg Ivpb) 40 mg in 100 mls @ 20 mls/hr IVPB .Q5H JUANITA Octreotide Acetate 1,250 mcg/ (Dextrose) 252.5 mls @ 5.05 mls/hr IV .Q24H JUANITA; Protocol Last Admin: 12/02/18 18:58 Dose: 25 mcg/hr, 5.05 mls/hr Ceftriaxone Sodium (Rocephin 1 Gram Ivpb) 1 gm in 100 mls @ 100 mls/hr IVPB DAILY JUANITA; Protocol Last Admin: 12/02/18 18:20 Dose: 100 mls/hr Albumin Human (Albumin Human 25% (12.5 Gm/50 Ml)) 50 mls @ 1 mls/min IVPB Q4H JUANITA Stop: 12/04/18 14:04 Last Admin: 12/03/18 00:46 Dose: 1 mls/min Vitamin A (Vitamin A & D Oint Ud Foilpak) 1 ea TOP Q2 PRN PRN Reason: Dry mouth Physical Exam - Constitutional Appears: Older Than Stated Age, Cachectic - Head Exam Head Exam: ATRAUMATIC - Eye Exam Additional comments: cataracts - ENT Exam ENT Exam: Mucous Membranes Moist - Respiratory Exam Respiratory Exam: Clear to Auscultation Bilateral, NORMAL BREATHING PATTERN - Cardiovascular Exam Cardiovascular Exam: REGULAR RHYTHM, +S1, +S2 - GI/Abdominal Exam GI & Abdominal Exam: Soft, Tenderness (mildly diffusely). absent: Distended, Firm, Guarding, Rebound, Rigid - Rectal Exam Rectal Exam: absent: Black Stool, Bloody Stool, Hemorrhoids, Fecal Impaction Additional comments: no palpable mass - Extremities Exam Extremities exam: Negative for: pedal edema, tenderness - Psychiatric Exam Psychiatric exam: Anxious - Skin Skin Exam: Dry, Intact, Normal Color, Warm Results - Vital Signs Recent Vital Signs: Last Vital Signs Temp 98.6 F 12/03/18 00:59 Pulse 98 H 12/03/18 00:59 Resp 25 H 12/03/18 00:59 BP 116/66 12/03/18 00:59 Pulse Ox 100 12/02/18 22:00 - Labs Result Diagrams: 12/02/18 13:44 12/02/18 13:44 Labs: Laboratory Results - last 24 hr 12/02/18 12/02/18 12/02/18 13:44 13:44 13:44 WBC 11.5 H D RBC 2.42 L Hgb 6.4 L* D Hct 20.0 L* MCV 82.6 MCH 26.4 MCHC 32.0 RDW 17.9 H Plt Count 249 MPV 10.5 Neut % (Auto) 61.3 Lymph % (Auto) 28.3 [place] % (Auto) 8.9 H Eos % (Auto) 1.0 L Baso % (Auto) 0.5 Lymph # (Auto) 3.3 [place] # (Auto) 1.0 H Eos # (Auto) 0.1 Baso # (Auto) 0.06 Absolute Neuts (auto) 7.06 H PT 16.9 H INR 1.50 APTT 34.4 Sodium 137 Potassium 4.1 Chloride 107 Carbon Dioxide 22 Anion Gap 13 BUN 37 H Creatinine 0.5 L Est GFR ( Amer) > 60 Est GFR (Non-Af Amer) > 60 Random Glucose 114 H Calcium 8.3 L Total Bilirubin 1.3 AST 45 ALT 25 Alkaline Phosphatase 192 H D Ammonia Lactate Dehydrogenase 463 Total Creatine Kinase < 20 L Troponin I < 0.01 Total Protein 5.5 L Albumin 2.3 L Globulin 3.2 Albumin/Globulin Ratio 0.7 L Amylase 64 Lipase 184 Blood Type Antibody Screen Crossmatch BBK History Checked 12/02/18 12/02/18 13:44 13:44 WBC RBC Hgb Hct MCV MCH MCHC RDW Plt Count MPV Neut % (Auto) Lymph % (Auto) [place] % (Auto) Eos % (Auto) Baso % (Auto) Lymph # (Auto) [place] # (Auto) Eos # (Auto) Baso # (Auto) Absolute Neuts (auto) PT INR APTT Sodium Potassium Chloride Carbon Dioxide Anion Gap BUN Creatinine Est GFR ( Amer) Est GFR (Non-Af Amer) Random Glucose Calcium Total Bilirubin AST ALT Alkaline Phosphatase Ammonia 60 H D Lactate Dehydrogenase Total Creatine Kinase Troponin I Total Protein Albumin Globulin Albumin/Globulin Ratio Amylase Lipase Blood Type AB POSITIVE Antibody Screen Negative Crossmatch See Detail BBK History Checked Patient has bt Assessment & Plan - Assessment and Plan (Free Text) Assessment: 73M with GI bleed MELD- 12 ChildPugh- Class B Plan: - NPO - IVF - Pain control - Transfuse pRBC for goal >7 - Continue Octreotide, Protonix - ICU management - Q4/6 CBC to monitor hemoglobin - Rec GI consult Further recs discuss with Dr. Milton Lacey, PGY3
[2018-12-03 02:09] LABS: HEMOGLOBIN 10.1 g/dL (14.0-18.0); MEAN CELL VOLUME 80.1 fl (80.0-105.0); MEAN CORPUSCULAR HEMOGLOBIN 26.8 pg (25.0-35.0); MEAN CORPUSCULAR HGB CONC 33.4 g/dl (31.0-37.0); MEAN PLATELET VOLUME 9.7 fl (7.0-11.0); RBC 3.77 10^6/uL (3.5-6.1); RED CELL DISTRIBUTION WIDTH 16.4 % (11.5-14.5); WHITE BLOOD COUNT 9.5 10^3/uL (4.5-11.0)
[2018-12-03] MEDS: Pantoprazole 40mg/100mL NS 40 MG/100 ML BAG IVPB SCH ×4 (02:09→18:37)
[2018-12-03 02:11] LABS: VENOUS BLOOD GAS BASE EXCESS -3.4 mmol/L (0.0-2.0); VENOUS BLOOD GAS PO2 41 mm/Hg (30-55); VENOUS BLOOD PH 7.29 (7.32-7.43)
--- NOTE | 2018-12-03 03:07 | HP ---
DATE OF EXAM: 12/02/2018 The patient was seen and examined at the bedside on 12/02/2018. CHIEF COMPLAINT: Lower gastrointestinal bleeding. HISTORY OF PRESENT ILLNESS: Mr. Esteban Carrion is a 73-year-old male with past medical history of dementia, cirrhosis of the liver, hypertension, stroke, noncompliant, history of anemia, brought by EMS in the emergency department for the vomiting blood since two days ago. Per EMS, the patient vomited blood clots yesterday. The patient was seen on 11/08/2018 and discharged on 11/12/2018 for the similar complaints. The patient does not respond to questions because he is a very poor historian, but I am his doctor for a couple of admissions. Even he is not regular in office followup, but he has been having a problem with cirrhosis of the liver, esophageal varices, and very noncompliant. PAST MEDICAL HISTORY: Coronary artery disease, hypertension, COPD, blind, deaf, glaucoma, diabetes mellitus, anemia status post blood transfusion, history of cholelithiasis, colitis, esophageal varices, history of ascites and paracentesis, alcoholic cirrhosis of the liver, urinary incontinent, depression, psychosis, hernia repair. FAMILY HISTORY: Family and mother noncontributory. HABITS: Former smoker. Alcohol; yes. Substance abuse; no. ALLERGIES: THE PATIENT IS NOT ALLERGIC WITH ANY MEDICATIONS. HOME MEDICATIONS: Reviewed by me. REVIEW OF SYSTEMS: The patient was seen and examined at the bedside in the emergency room, comfortable. No fever. No chills. No hematuria. No hematochezia. No headache. No dizziness. No abdominal pain. No chest pain. No palpitations. PHYSICAL EXAMINATION VITAL SIGNS: Temperature 99, pulse 139, respiratory rate 18, blood pressure 109/59, pulse oximetry 95%. HEENT: Head is normocephalic, atraumatic. Eyes; PERRLA. Extraocular muscles intact. Conjunctivae clear. Nose patent. Mucous membranes moist. NECK: Supple. No carotid bruits. No JVD. No thyromegaly. CHEST: Bilaterally symmetrical. HEART: S1, S2 positive. LUNGS: Clear to auscultation. ABDOMEN: Soft. Bowel sounds present. No organomegaly. EXTREMITIES: No edema. No cyanosis. NEUROLOGIC: The patient awake, alert. Moving all four extremities. No focal deficits. LABORATORY DATA: White blood cells 11.5, hemoglobin 6.4, hematocrit 20, platelets 249. Sodium 137, potassium 4.1, BUN 37, creatinine 0.5, glucose 114, calcium 8.3. ASSESSMENT AND PLAN: Mr. Esteban Carrion is a 73-year-old male with anemia, status post blood transfusion and leukocytosis, renal insufficiency, hyperglycemia, hypocalcemia, history of cirrhosis of the liver. Chest x-ray is done, echocardiography done, results are pending. History of ethanol abuse. History of cirrhosis of the liver status post paracentesis, hernia surgery, dementia, hypertension, history of stroke, very noncompliant, legally blind, deaf, lives with daughter, coronary artery disease, history of cataract, glaucoma, history of cholelithiasis, colitis, esophageal varices. History of paracentesis. We admitted the patient. We will do a blood transfusion. Gastrointestinal and deep vein thrombosis prophylaxis. Repeat labs. We will do an ammonia level also. Evie Ponce MD
[2018-12-03 06:23] LABS: HEMOGLOBIN 9.9 g/dL (14.0-18.0); MEAN CELL VOLUME 80.3 fl (80.0-105.0); MEAN CORPUSCULAR HEMOGLOBIN 26.1 pg (25.0-35.0); MEAN CORPUSCULAR HGB CONC 32.5 g/dl (31.0-37.0); MEAN PLATELET VOLUME 10.6 fl (7.0-11.0); RBC 3.8 10^6/uL (3.5-6.1); RED CELL DISTRIBUTION WIDTH 16.9 % (11.5-14.5); WHITE BLOOD COUNT 8.8 10^3/uL (4.5-11.0)
[2018-12-03 07:16] LABS: ALB/GLOB RATIO 0.9 (1.1-1.8); ALT/SGPT 27 U/L (7-56); AST/SGOT 46 U/L (17-59); BLOOD UREA NITROGEN 32 mg/dL (7-21); CALCIUM 8.5 mg/dL (8.4-10.5); GFR NON-AFRICAN AMERICAN > 60
--- NOTE | 2018-12-03 09:28 | CP.PCM.CON ---
<Ko Rhodes - Last Filed: 12/03/18 16:09> History of Present Illness - History of Present Illness History of Present Illness: PGY6 GI Fellow Consult Note Patient is a 73yo male with PMHx significant for decompensated EtOH cirrhosis c/b ascites, hepatic encephalopathy and bleeding esophageal varices, rectal varices, diverticulosis, h/o HBV and HCV exposure, EtOH abuse, COPD and tobacco abuse, blindness and decreased hearing acuity who presented to the ED abdominal pain, hematemesis and melena. The patient is very hard of hearing and has no family at bedside to assist with history taking. Patient was brought to the emergency room with complaint of hematemesis and observed to have melena during evaluation. Initial HGB was 6.4 and patient is now s/p 2 units PRBC transfusion. He continues to endorse abdominal pain but does not localize pain. Patient does not provide any other history at this time. 12 system ROS limited given altered mentation PMHx: See HPI PSHx: Left hip FHx: Discussed with patient and denies any significant family history Social: Former tobacco and EtOH abuse per patient (40+ year use), denies illicit drug use Endo: Most recent EGD/Colon on 11/24/18 - Portal HTN gastropathy; large rectal varices and diverticulosis Past Patient History - Infectious Disease Hx of Infectious Diseases: None - Tetanus Immunizations Tetanus Immunization: Unknown - Past Social History Smoking Status: Former Smoker - CARDIAC Hx Cardiac Disorders: Yes (CAD) Hx Hypercholesterolemia: Yes Hx Hypertension: Yes - PULMONARY Hx Respiratory Disorders: Yes Hx Chronic Obstructive Pulmonary Disease (COPD): Yes - NEUROLOGICAL Hx Neurological Disorder: Yes HX Cerebrovascular Accident: Yes (no residual) - HEENT Hx HEENT Problems: Yes Hx Blind: Yes Hx Cataracts: Yes (both eyes) Hx Deafness: Yes (left ear, mechoopda r ear) Hx Glaucoma: Yes (left eye) Other/Comment: legally blind - RENAL Hx Chronic Kidney Disease: No - ENDOCRINE/METABOLIC Hx Diabetes Mellitus Type 2: (denies) - HEMATOLOGICAL/ONCOLOGICAL Hx Blood Disorders: Yes (sepsis) Hx Anemia: Yes Hx Cirrhosis: Yes Hx Hepatitis B: (denies) Other/Comment: blood transfusion - INTEGUMENTARY Hx Dermatological Problems: No - MUSCULOSKELETAL/RHEUMATOLOGICAL Hx Falls: Yes (past) - GASTROINTESTINAL Hx Gastrointestinal Disorders: Yes (CHOLELITHIASIS,COLITIS,ESOPHAGEAL VARICES,H/ O PARACENTESIS,) Hx Gall Bladder Disease: Yes (gallstones) Hx Gastroesophageal Reflux: Yes Hx Liver Failure: (cirrhosis) Other/Comment: alcoholic cirrhosis of the liver, ascites, r inguinal hernia, l ower and upper gi bleed, paracenthesis - GENITOURINARY/GYNECOLOGICAL Hx Genitourinary Disorders: Yes Hx Incontinence: Yes - PSYCHIATRIC Hx Substance Use: No - SURGICAL HISTORY Hx Surgeries: Yes Hx Orthopedic Surgery: Yes (l hip fx sx 10/20/16) Other/Comment: us guided paracenthesis 06/23/14. hernia repair 04/2018 - ANESTHESIA Hx Anesthesia Reactions: No Hx Malignant Hyperthermia: No Meds Allergies/Adverse Reactions: Allergies Allergy/AdvReac Type Severity Reaction Status Date / Time No Known Allergies Allergy Verified 12/02/18 12:17 - Medications Medications: Current Medications Pantoprazole Sodium (Protonix 40mg Ivpb) 40 mg in 100 mls @ 20 mls/hr IVPB .Q5H JUANITA Last Admin: 12/03/18 05:31 Dose: 20 mls/hr Octreotide Acetate 1,250 mcg/ (Dextrose) 252.5 mls @ 5.05 mls/hr IV .Q24H JUANITA; Protocol Last Admin: 12/02/18 18:58 Dose: 25 mcg/hr, 5.05 mls/hr Ceftriaxone Sodium (Rocephin 1 Gram Ivpb) 1 gm in 100 mls @ 100 mls/hr IVPB DAILY JUANITA; Protocol Last Admin: 12/02/18 18:20 Dose: 100 mls/hr Albumin Human (Albumin Human 25% (12.5 Gm/50 Ml)) 50 mls @ 1 mls/min IVPB Q4H JUANITA Stop: 12/04/18 14:04 Last Admin: 12/03/18 05:28 Dose: 1 mls/min Vitamin A (Vitamin A & D Oint Ud Foilpak) 1 ea TOP Q2 PRN PRN Reason: Dry mouth Physical Exam - Constitutional Appears: Confused, Chronically Ill - Eye Exam Additional comments: blind - ENT Exam ENT Exam: Mucous Membranes Dry Additional comments: decreased hearing acuity - Respiratory Exam Respiratory Exam: Clear to Auscultation Bilateral. absent: Rales, Rhonchi, Wheezes - Cardiovascular Exam Cardiovascular Exam: RRR, +S1, +S2 - GI/Abdominal Exam GI & Abdominal Exam: Normal Bowel Sounds, Soft, Tenderness (diffuse). absent: Distended, Firm, Guarding, Hernia, Organomegaly, Rigid - Extremities Exam Extremities exam: Positive for: normal inspection. Negative for: pedal edema - Neurological Exam Neurological exam: Altered - Skin Skin Exam: Dry, Warm Results - Vital Signs Recent Vital Signs: Last Vital Signs Temp 98.1 F 12/03/18 08:13 Pulse 93 H 12/03/18 09:00 Resp 27 H 12/03/18 09:00 BP 103/52 L 12/03/18 09:00 Pulse Ox 100 12/03/18 09:00 - Labs Result Diagrams: 12/03/18 05:01 12/03/18 05:01 Labs: Laboratory Results - last 24 hr 12/02/18 12/02/18 12/02/18 13:44 13:44 13:44 WBC 11.5 H D RBC 2.42 L Hgb 6.4 L* D Hct 20.0 L* MCV 82.6 MCH 26.4 MCHC 32.0 RDW 17.9 H Plt Count 249 MPV 10.5 Neut % (Auto) 61.3 Lymph % (Auto) 28.3 [place] % (Auto) 8.9 H Eos % (Auto) 1.0 L Baso % (Auto) 0.5 Lymph # (Auto) 3.3 [place] # (Auto) 1.0 H Eos # (Auto) 0.1 Baso # (Auto) 0.06 Absolute Neuts (auto) 7.06 H PT 16.9 H INR 1.50 APTT 34.4 pO2 VBG pH VBG pCO2 VBG HCO3 VBG Total CO2 VBG O2 Sat (Calc) VBG Base Excess VBG Potassium Glucose Lactate FiO2 Crit Value Called To Crit Value Called By Blood Gas Notified Time Sodium 137 Potassium 4.1 Chloride 107 Carbon Dioxide 22 Anion Gap 13 BUN 37 H Creatinine 0.5 L Est GFR ( Amer) > 60 Est GFR (Non-Af Amer) > 60 Random Glucose 114 H Calcium 8.3 L Phosphorus Magnesium Total Bilirubin 1.3 AST 45 ALT 25 Alkaline Phosphatase 192 H D Ammonia Lactate Dehydrogenase 463 Total Creatine Kinase < 20 L Troponin I < 0.01 Total Protein 5.5 L Albumin 2.3 L Globulin 3.2 Albumin/Globulin Ratio 0.7 L Amylase 64 Lipase 184 Venous Blood Potassium Blood Type Antibody Screen Crossmatch BBK History Checked 12/02/18 12/02/18 12/03/18 13:44 13:44 01:58 WBC RBC Hgb Hct MCV MCH MCHC RDW Plt Count MPV Neut % (Auto) Lymph % (Auto) [place] % (Auto) Eos % (Auto) Baso % (Auto) Lymph # (Auto) [place] # (Auto) Eos # (Auto) Baso # (Auto) Absolute Neuts (auto) PT INR APTT pO2 41 VBG pH 7.29 L VBG pCO2 49.0 VBG HCO3 23.6 VBG Total CO2 25.1 VBG O2 Sat (Calc) 82.2 H VBG Base Excess -3.4 L VBG Potassium 4.1 Glucose 103 Lactate 2.9 H FiO2 21.0 Crit Value Called To Afua cheng Crit Value Called By [facility] Blood Gas Notified Time 210 Sodium 142.0 Potassium Chloride 112.0 H Carbon Dioxide Anion Gap BUN Creatinine Est GFR ( Amer) Est GFR (Non-Af Amer) Random Glucose Calcium Phosphorus Magnesium Total Bilirubin AST ALT Alkaline Phosphatase Ammonia 60 H D Lactate Dehydrogenase Total Creatine Kinase Troponin I Total Protein Albumin Globulin Albumin/Globulin Ratio Amylase Lipase Venous Blood Potassium 4.1 Blood Type AB POSITIVE Antibody Screen Negative Crossmatch See Detail BBK History Checked Patient has bt 12/03/18 12/03/18 12/03/18 01:58 05:01 05:01 WBC 9.5 8.8 RBC 3.77 3.80 Hgb 10.1 L D 9.9 L Hct 30.2 L 30.5 L MCV 80.1 80.3 MCH 26.8 26.1 MCHC 33.4 32.5 RDW 16.4 H 16.9 H Plt Count 106 L 129 MPV 9.7 10.6 Neut % (Auto) Lymph % (Auto) [place] % (Auto) Eos % (Auto) Baso % (Auto) Lymph # (Auto) [place] # (Auto) Eos # (Auto) Baso # (Auto) Absolute Neuts (auto) PT INR APTT pO2 VBG pH VBG pCO2 VBG HCO3 VBG Total CO2 VBG O2 Sat (Calc) VBG Base Excess VBG Potassium Glucose Lactate FiO2 Crit Value Called To Crit Value Called By Blood Gas Notified Time Sodium 142 Potassium 4.0 Chloride 111 H Carbon Dioxide 23 Anion Gap 12 BUN 32 H Creatinine 0.5 L Est GFR ( Amer) > 60 Est GFR (Non-Af Amer) > 60 Random Glucose 89 Calcium 8.5 Phosphorus 3.1 Magnesium 2.0 Total Bilirubin 2.4 H AST 46 ALT 27 Alkaline Phosphatase 200 H Ammonia Lactate Dehydrogenase Total Creatine Kinase Troponin I Total Protein 6.4 Albumin 3.0 Globulin 3.4 Albumin/Globulin Ratio 0.9 L Amylase Lipase Venous Blood Potassium Blood Type Antibody Screen Crossmatch BBK History Checked Assessment & Plan - Assessment and Plan (Free Text) Assessment: Patient is a 73yo male with PMHx significant for decompensated EtOH cirrhosis c/b ascites, hepatic encephalopathy and bleeding esophageal varices, rectal varices, diverticulosis, h/o HBV and HCV exposure, EtOH abuse, COPD and tobacco abuse, blindness and decreased hearing acuity who presented to the ED abdominal pain, hematemesis and melena -Acute blood loss anemia -Decompensated EtOH cirrhosis -Hepatic encephalopathy -Hyperbilirubinemia Plan: -Recent endoscopic evaluations noted (11/24/18) -Given documented melena and subjective hematemesis - maintain NPO and plan for push enteroscopy today -Avoid overtransfusion in cirrhotic patient with portal HTN - goal HGB 7-8 -Agree with antibiotic coverage as ordered for prophylaxis - Ceftriaxone 1g IV QD -Continue Protonix and Octreotide gtt as ordered -Avoid Lactulose therapy for now; re-evaluate after procedure; agree with fluid challenge - Date & Time Date: 12/03/18 Time: 09:00 <Deyanira Oropeza V - Last Filed: 12/03/18 21:51> Meds - Medications Medications: Current Medications Albuterol/Ipratropium (Duoneb 3 Mg/0.5 Mg (3 Ml) Ud) 3 ml IH [id number] PRN PRN Reason: Shortness of Breath Last Admin: 12/03/18 19:52 Dose: 3 ml Arformoterol Tartrate (Brovana) 15 mcg IH [id number] JUANITA Last Admin: 12/03/18 19:52 Dose: 15 mcg Budesonide (Pulmicort Respules) 0.5 mg IH [id number] JUANITA Last Admin: 12/03/18 19:53 Dose: 0.5 mg Ceftriaxone Sodium (Rocephin 1 Gram Ivpb) 1 gm in 100 mls @ 100 mls/hr IVPB DAILY JUANITA; Protocol Last Admin: 12/03/18 10:52 Dose: 100 mls/hr Pantoprazole Sodium (Protonix Inj) 40 mg IVP Q12 JUANITA Vitamin A (Vitamin A & D Oint Ud Foilpak) 1 ea TOP Q2 PRN PRN Reason: Dry mouth Results - Vital Signs Recent Vital Signs: Last Vital Signs Temp 98 F 12/03/18 16:00 Pulse 77 12/03/18 20:01 Resp 24 12/03/18 17:40 BP 91/35 L 12/03/18 17:30 Pulse Ox 99 12/03/18 18:53 - Labs Result Diagrams: 12/03/18 05:01 12/03/18 05:01 Labs: Laboratory Results - last 24 hr 12/02/18 12/03/18 12/03/18 13:44 01:58 01:58 WBC 9.5 RBC 3.77 Hgb 10.1 L D Hct 30.2 L MCV 80.1 MCH 26.8 MCHC 33.4 RDW 16.4 H Plt Count 106 L MPV 9.7 pO2 41 VBG pH 7.29 L VBG pCO2 49.0 VBG HCO3 23.6 VBG Total CO2 25.1 VBG O2 Sat (Calc) 82.2 H VBG Base Excess -3.4 L VBG Potassium 4.1 Sodium 142.0 Chloride 112.0 H Glucose 103 Lactate 2.9 H FiO2 21.0 Crit Value Called To Afua cheng Crit Value Called By Cristiano Blood Gas Notified Time 210 Potassium Carbon Dioxide Anion Gap BUN Creatinine Est GFR ( Amer) Est GFR (Non-Af Amer) Random Glucose Calcium Phosphorus Magnesium Total Bilirubin AST ALT Alkaline Phosphatase Total Protein Albumin Globulin Albumin/Globulin Ratio Venous Blood Potassium 4.1 Crossmatch See Detail 12/03/18 12/03/18 05:01 05:01 WBC 8.8 RBC 3.80 Hgb 9.9 L Hct 30.5 L MCV 80.3 MCH 26.1 MCHC 32.5 RDW 16.9 H Plt Count 129 MPV 10.6 pO2 VBG pH VBG pCO2 VBG HCO3 VBG Total CO2 VBG O2 Sat (Calc) VBG Base Excess VBG Potassium Sodium 142 Chloride 111 H Glucose Lactate FiO2 Crit Value Called To Crit Value Called By Blood Gas Notified Time Potassium 4.0 Carbon Dioxide 23 Anion Gap 12 BUN 32 H Creatinine 0.5 L Est GFR ( Amer) > 60 Est GFR (Non-Af Amer) > 60 Random Glucose 89 Calcium 8.5 Phosphorus 3.1 Magnesium 2.0 Total Bilirubin 2.4 H AST 46 ALT 27 Alkaline Phosphatase 200 H Total Protein 6.4 Albumin 3.0 Globulin 3.4 Albumin/Globulin Ratio 0.9 L Venous Blood Potassium Crossmatch Attending/Attestation - Attestation I have personally seen and examined this patient.: Yes I have fully participated in the care of the patient.: Yes I have reviewed all pertinent clinical information: Yes Notes (Text): This patient was seen and evaluated along with the PA fellow earlier today. This is an addendum to the consult dictated by the GI fellow. This 73-year-old patient with the cirrhosis of the liver secondary to alcohol (patient had a history of exposure to hep B but immune core antibody positive but surface antibody negative surface antigen negative,) decompensated cirrhosis ascites history of esophageal varices sp banding rectal varices with evidence of bleeding in the past esophageal ulcerations admitted with the dark stool and also coffee-ground vomitus. Clinically patient does have ascites patient was admitted with a hemoglobin of 6.4 received 2 units of packed RBC the countup went around 10. Less likely the initial hemoglobin count is real. The differential diagnosis for this patient's GI bleeding should include esophageal ulceration, esophageal varices, angiodysplasia small bowel, colonic AVM also should be considered Follow-up up with hemoglobin and hematocrit continue PPI Discussed with the patient's brother, family scheduled for an upper GI endoscopy 12/03/18 21:47
[2018-12-03] MEDS ORDERED: Octreotide 1,250 MCG in Dextrose 5% In Water 250 ML IV SCH (09:44)
--- NOTE | 2018-12-03 10:39 | US ---
Date of service: 12/03/2018 HISTORY: RUQ pain; r/o cholecystitis COMPARISON: 10/12/2018. hepatic duplex venous study 11/11/2018 CT abdomen. TECHNIQUE: Sonographic evaluation of the abdomen. FINDINGS: LIVER: Measures 14.2 cm. Patent portal and hepatic venous systems. Portal venous flow: Hepatopetal. echogenicity of the liver parenchyma. Nodular contour to the liver consistent with cirrhosis. Perihepatic ascites identified. GALLBLADDER: Cholelithiasis. Sludge identified. Gallbladder wall thickening noted. COMMON BILE DUCT: Measures 4.3 mm. No stones. No dilatation. PANCREAS: Obscured by overlying bowel gas. RIGHT KIDNEY: Measures 4.1 x 9.2cm. Normal echogenicity. No calculus, mass, or hydronephrosis. LEFT KIDNEY: Measures 4.9 x 10.0cm. Normal echogenicity. No calculus, mass, or hydronephrosis. SPLEEN: Normal in size and contour. No mass. Orthogonal measurements 5 x 11.8 x 5.7 cm. AORTA: Obscured by overlying bowel gas. IVC: Obscured by overlying bowel gas. OTHER FINDINGS: None. IMPRESSION: Gallstones, sludge and gallbladder wall thickening without sonographic Kwan sign. Cirrhotic liver. Patent portal vein. Incompletely visualized abdominal ascites. Nondiagnostic study of the pancreas, IVC and aorta.
[2018-12-03] MEDS: cefTRIAXone 1 gm 1 GM/100 ML BAG IVPB SCH (10:52)
--- NOTE | 2018-12-03 11:55 | CP.CCUPN ---
<Natan Carcamo - Last Filed: 12/03/18 12:41> CCU Subjective - Physician Review Subjective (Free Text): Natan Carcamo DO, PGY-1 MICU Progress Note for Dr. Farah Patient was seen and examined at bedside this AM. He remains confused and alert only to person. Per review of prior records, it appears patient is at baseline. No additional episodes of hematemesis or hematochezia were reported since admission to MICU. CCU Objective - Vital Signs / Intake & Output Vital Signs (Last 4 hours): Vital Signs Temp Pulse Resp BP Pulse Ox 12/03/18 09:00 93 H 27 H 103/52 L 100 12/03/18 08:50 96 H 18 100 12/03/18 08:40 86 24 100 12/03/18 08:30 94 H 119/64 100 12/03/18 08:20 94 H 27 H 100 12/03/18 08:13 98.1 F 12/03/18 08:10 90 26 H 100 12/03/18 08:00 99 H 42 H 129/70 100 Intake and Output (Last 8hrs): Intake & Output 12/02/18 12/03/18 12/03/18 22:59 06:59 14:59 Intake Total 350 1265 Output Total 0 Balance 350 1265 Weight 110 lb 87 lb 9.6 oz Intake: IV 140 Left Forearm 60 Left Wrist 80 Oral 0 Blood Product 325 975 Red Blood Cells Cpd As1 0 325 Lr Unit [id number] Red Blood Cells Cpd As1 325 Lr Unit [id number] Albumin 150 Other 25 Red Blood Cells Cpd As1 25 Lr Unit [id number] Output: Urine 0 Urine, Voided 0 Other: Voiding Method Diaper # Bowel Movements 1 - Physical Exam Head: Positive for: Atraumatic, Normocephalic Pupils: Positive for: PERRL Extroacular Muscles: Positive for: EOMI Conjunctiva: Positive for: Other (conjunctival pallor noted). Negative for: Icteric Mouth: Positive for: Dry, Other (dried blood present) Neck: Positive for: Normal Range of Motion Respiratory/Chest: Positive for: Clear to Auscultation, Good Air Exchange. Negative for: Respiratory Distress, Accessory Muscle Use, Wheezes, Rales, Rhonchi Cardiovascular: Positive for: Normal S1, S2, Tachycardic, Other (regular rhythm). Negative for: Murmurs, Rub, Gallop Abdomen: Negative for: Tenderness, Distention, Peritoneal Signs Rectal: Negative for: Gross Blood, Melena Back: Positive for: Normal Inspection Upper Extremity: Positive for: Normal Inspection. Negative for: Cyanosis, Edema Lower Extremity: Positive for: Normal Inspection. Negative for: Edema Neurological: Positive for: GCS=15, CN II-XII Intact, Speech Normal Skin: Positive for: Warm, Dry, Pale. Negative for: Rashes Psychiatric: Positive for: Alert, Other (yelling ). Negative for: Oriented x 3 - Medications Active Medications: Active Medications Generic Name Dose Route Start Last Admin Trade Name Freq PRN Reason Stop Dose Admin Pantoprazole Sodium 40 mg in 100 mls @ 20 mls/hr 12/02/18 17:00 12/03/18 05:31 Protonix 40mg Ivpb IVPB 20 mls/hr .Q5H JUANITA Administration Ceftriaxone Sodium 1 gm in 100 mls @ 100 mls/hr 12/02/18 17:00 12/03/18 10:52 Rocephin 1 Gram Ivpb IVPB 100 mls/hr DAILY JUANITA Administration Protocol Albumin Human 50 mls @ 1 mls/min 12/02/18 17:15 12/03/18 09:00 Albumin Human 25% (12.5 Gm/50 Ml) IVPB 12/04/18 14:04 1 mls/min Q4H JUANITA Administration Octreotide Acetate 1,250 mcg/ 252.5 mls @ 10.1 mls/hr 12/03/18 09:44 Dextrose IV .Q24H JUANITA Protocol 50 MCG/HR Vitamin A 1 ea 12/02/18 23:20 Vitamin A & D Oint Ud Foilpak TOP Q2 PRN Dry mouth - Patient Studies Lab Studies: Lab Studies 12/03/18 12/03/18 12/03/18 Range/Units 05:01 05:01 01:58 WBC 8.8 9.5 (4.5-11.0) 10^3/uL RBC 3.80 3.77 (3.5-6.1) 10^6/uL Hgb 9.9 L 10.1 L D (14.0-18.0) g/dL Hct 30.5 L 30.2 L (42.0-52.0) % MCV 80.3 80.1 (80.0-105.0) fl MCH 26.1 26.8 (25.0-35.0) pg MCHC 32.5 33.4 (31.0-37.0) g/dl RDW 16.9 H 16.4 H (11.5-14.5) % Plt Count 129 106 L (120.0-450.0) 10^3/uL MPV 10.6 9.7 (7.0-11.0) fl Neut % (Auto) (50.0-68.0) % Lymph % (Auto) (22.0-35.0) % [place] % (Auto) (1.0-6.0) % Eos % (Auto) (1.5-5.0) % Baso % (Auto) (0.0-3.0) % Lymph # (Auto) (1.2-3.4) [place] # (Auto) (0.1-0.6) Eos # (Auto) (0.0-0.7) Baso # (Auto) (0.0-2.0) K/mm3 Absolute Neuts (auto) (1.4-6.5) PT (9.4-12.5) SECONDS INR APTT (26.9-38.3) Seconds pO2 (30-55) mm/Hg VBG pH (7.32-7.43) VBG pCO2 (40-60) VBG HCO3 (21-28) mmol/l VBG Total CO2 (22-28) mmol.L VBG O2 Sat (Calc) (40-65) % VBG Base Excess (0.0-2.0) mmol/L VBG Potassium (3.6-5.2) mmol/L Glucose (75-110) mg/dl Lactate (0.7-2.1) mmol/L FiO2 % Crit Value Called To Crit Value Called By Blood Gas Notified Time Sodium 142 (132-148) mmol/L Potassium 4.0 (3.6-5.0) mmol/L Chloride 111 H (98-107) mmol/L Carbon Dioxide 23 (21-33) mmol/L Anion Gap 12 (10-20) BUN 32 H (7-21) mg/dL Creatinine 0.5 L (0.8-1.5) mg/dl Est GFR ( Amer) > 60 Est GFR (Non-Af Amer) > 60 Random Glucose 89 (70-110) mg/dL Calcium 8.5 (8.4-10.5) mg/dL Phosphorus 3.1 (2.5-4.5) mg/dL Magnesium 2.0 (1.7-2.2) mg/dL Total Bilirubin 2.4 H (0.2-1.3) mg/dL AST 46 (17-59) U/L ALT 27 (7-56) U/L Alkaline Phosphatase 200 H (38-126) U/L Ammonia (9-33) umol/L Lactate Dehydrogenase (333-699) U/L Total Creatine Kinase (35-230) U/L Troponin I ng/mL Total Protein 6.4 (5.8-8.3) g/dL Albumin 3.0 (3.0-4.8) g/dL Globulin 3.4 gm/dL Albumin/Globulin Ratio 0.9 L (1.1-1.8) Amylase (35-125) U/L Lipase (23-300) U/L Venous Blood Potassium (3.6-5.2) mmol/L Blood Type Antibody Screen Crossmatch BBK History Checked 12/03/18 12/02/18 12/02/18 Range/Units 01:58 13:44 13:44 WBC (4.5-11.0) 10^3/uL RBC (3.5-6.1) 10^6/uL Hgb (14.0-18.0) g/dL Hct (42.0-52.0) % MCV (80.0-105.0) fl MCH (25.0-35.0) pg MCHC (31.0-37.0) g/dl RDW (11.5-14.5) % Plt Count (120.0-450.0) 10^3/uL MPV (7.0-11.0) fl Neut % (Auto) (50.0-68.0) % Lymph % (Auto) (22.0-35.0) % [place] % (Auto) (1.0-6.0) % Eos % (Auto) (1.5-5.0) % Baso % (Auto) (0.0-3.0) % Lymph # (Auto) (1.2-3.4) [place] # (Auto) (0.1-0.6) Eos # (Auto) (0.0-0.7) Baso # (Auto) (0.0-2.0) K/mm3 Absolute Neuts (auto) (1.4-6.5) PT (9.4-12.5) SECONDS INR APTT (26.9-38.3) Seconds pO2 41 (30-55) mm/Hg VBG pH 7.29 L (7.32-7.43) VBG pCO2 49.0 (40-60) VBG HCO3 23.6 (21-28) mmol/l VBG Total CO2 25.1 (22-28) mmol.L VBG O2 Sat (Calc) 82.2 H (40-65) % VBG Base Excess -3.4 L (0.0-2.0) mmol/L VBG Potassium 4.1 (3.6-5.2) mmol/L Glucose 103 (75-110) mg/dl Lactate 2.9 H (0.7-2.1) mmol/L FiO2 21.0 % Crit Value Called To Afua cheng Crit Value Called By [facility] Blood Gas Notified Time 210 Sodium 142.0 (132-148) mmol/L Potassium (3.6-5.0) mmol/L Chloride 112.0 H (98-107) mmol/L Carbon Dioxide (21-33) mmol/L Anion Gap (10-20) BUN (7-21) mg/dL Creatinine (0.8-1.5) mg/dl Est GFR ( Amer) Est GFR (Non-Af Amer) Random Glucose (70-110) mg/dL Calcium (8.4-10.5) mg/dL Phosphorus (2.5-4.5) mg/dL Magnesium (1.7-2.2) mg/dL Total Bilirubin (0.2-1.3) mg/dL AST (17-59) U/L ALT (7-56) U/L Alkaline Phosphatase (38-126) U/L Ammonia 60 H D (9-33) umol/L Lactate Dehydrogenase (333-699) U/L Total Creatine Kinase (35-230) U/L Troponin I ng/mL Total Protein (5.8-8.3) g/dL Albumin (3.0-4.8) g/dL Globulin gm/dL Albumin/Globulin Ratio (1.1-1.8) Amylase (35-125) U/L Lipase (23-300) U/L Venous Blood Potassium 4.1 (3.6-5.2) mmol/L Blood Type AB POSITIVE Antibody Screen Negative Crossmatch See Detail BBK History Checked Patient has bt 12/02/18 12/02/18 12/02/18 Range/Units 13:44 13:44 13:44 WBC 11.5 H D (4.5-11.0) 10^3/uL RBC 2.42 L (3.5-6.1) 10^6/uL Hgb 6.4 L* D (14.0-18.0) g/dL Hct 20.0 L* (42.0-52.0) % MCV 82.6 (80.0-105.0) fl MCH 26.4 (25.0-35.0) pg MCHC 32.0 (31.0-37.0) g/dl RDW 17.9 H (11.5-14.5) % Plt Count 249 (120.0-450.0) 10^3/uL MPV 10.5 (7.0-11.0) fl Neut % (Auto) 61.3 (50.0-68.0) % Lymph % (Auto) 28.3 (22.0-35.0) % [place] % (Auto) 8.9 H (1.0-6.0) % Eos % (Auto) 1.0 L (1.5-5.0) % Baso % (Auto) 0.5 (0.0-3.0) % Lymph # (Auto) 3.3 (1.2-3.4) [place] # (Auto) 1.0 H (0.1-0.6) Eos # (Auto) 0.1 (0.0-0.7) Baso # (Auto) 0.06 (0.0-2.0) K/mm3 Absolute Neuts (auto) 7.06 H (1.4-6.5) PT 16.9 H (9.4-12.5) SECONDS INR 1.50 APTT 34.4 (26.9-38.3) Seconds pO2 (30-55) mm/Hg VBG pH (7.32-7.43) VBG pCO2 (40-60) VBG HCO3 (21-28) mmol/l VBG Total CO2 (22-28) mmol.L VBG O2 Sat (Calc) (40-65) % VBG Base Excess (0.0-2.0) mmol/L VBG Potassium (3.6-5.2) mmol/L Glucose (75-110) mg/dl Lactate (0.7-2.1) mmol/L FiO2 % Crit Value Called To Crit Value Called By Blood Gas Notified Time Sodium 137 (132-148) mmol/L Potassium 4.1 (3.6-5.0) mmol/L Chloride 107 (98-107) mmol/L Carbon Dioxide 22 (21-33) mmol/L Anion Gap 13 (10-20) BUN 37 H (7-21) mg/dL Creatinine 0.5 L (0.8-1.5) mg/dl Est GFR ( Amer) > 60 Est GFR (Non-Af Amer) > 60 Random Glucose 114 H (70-110) mg/dL Calcium 8.3 L (8.4-10.5) mg/dL Phosphorus (2.5-4.5) mg/dL Magnesium (1.7-2.2) mg/dL Total Bilirubin 1.3 (0.2-1.3) mg/dL AST 45 (17-59) U/L ALT 25 (7-56) U/L Alkaline Phosphatase 192 H D (38-126) U/L Ammonia (9-33) umol/L Lactate Dehydrogenase 463 (333-699) U/L Total Creatine Kinase < 20 L (35-230) U/L Troponin I < 0.01 ng/mL Total Protein 5.5 L (5.8-8.3) g/dL Albumin 2.3 L (3.0-4.8) g/dL Globulin 3.2 gm/dL Albumin/Globulin Ratio 0.7 L (1.1-1.8) Amylase 64 (35-125) U/L Lipase 184 (23-300) U/L Venous Blood Potassium (3.6-5.2) mmol/L Blood Type Antibody Screen Crossmatch BBK History Checked Laboratory Results - last 24 hr 12/02/18 12/02/18 12/02/18 13:44 13:44 13:44 WBC 11.5 H D RBC 2.42 L Hgb 6.4 L* D Hct 20.0 L* MCV 82.6 MCH 26.4 MCHC 32.0 RDW 17.9 H Plt Count 249 MPV 10.5 Neut % (Auto) 61.3 Lymph % (Auto) 28.3 [place] % (Auto) 8.9 H Eos % (Auto) 1.0 L Baso % (Auto) 0.5 Lymph # (Auto) 3.3 [place] # (Auto) 1.0 H Eos # (Auto) 0.1 Baso # (Auto) 0.06 Absolute Neuts (auto) 7.06 H PT 16.9 H INR 1.50 APTT 34.4 pO2 VBG pH VBG pCO2 VBG HCO3 VBG Total CO2 VBG O2 Sat (Calc) VBG Base Excess VBG Potassium Glucose Lactate FiO2 Crit Value Called To Crit Value Called By Blood Gas Notified Time Sodium 137 Potassium 4.1 Chloride 107 Carbon Dioxide 22 Anion Gap 13 BUN 37 H Creatinine 0.5 L Est GFR ( Amer) > 60 Est GFR (Non-Af Amer) > 60 Random Glucose 114 H Calcium 8.3 L Phosphorus Magnesium Total Bilirubin 1.3 AST 45 ALT 25 Alkaline Phosphatase 192 H D Ammonia Lactate Dehydrogenase 463 Total Creatine Kinase < 20 L Troponin I < 0.01 Total Protein 5.5 L Albumin 2.3 L Globulin 3.2 Albumin/Globulin Ratio 0.7 L Amylase 64 Lipase 184 Venous Blood Potassium Blood Type Antibody Screen Crossmatch BBK History Checked 12/02/18 12/02/18 12/03/18 13:44 13:44 01:58 WBC RBC Hgb Hct MCV MCH MCHC RDW Plt Count MPV Neut % (Auto) Lymph % (Auto) [place] % (Auto) Eos % (Auto) Baso % (Auto) Lymph # (Auto) [place] # (Auto) Eos # (Auto) Baso # (Auto) Absolute Neuts (auto) PT INR APTT pO2 41 VBG pH 7.29 L VBG pCO2 49.0 VBG HCO3 23.6 VBG Total CO2 25.1 VBG O2 Sat (Calc) 82.2 H VBG Base Excess -3.4 L VBG Potassium 4.1 Glucose 103 Lactate 2.9 H FiO2 21.0 Crit Value Called To Afua cheng Crit Value Called By [facility] Blood Gas Notified Time 210 Sodium 142.0 Potassium Chloride 112.0 H Carbon Dioxide Anion Gap BUN Creatinine Est GFR ( Amer) Est GFR (Non-Af Amer) Random Glucose Calcium Phosphorus Magnesium Total Bilirubin AST ALT Alkaline Phosphatase Ammonia 60 H D Lactate Dehydrogenase Total Creatine Kinase Troponin I Total Protein Albumin Globulin Albumin/Globulin Ratio Amylase Lipase Venous Blood Potassium 4.1 Blood Type AB POSITIVE Antibody Screen Negative Crossmatch See Detail BBK History Checked Patient has bt 12/03/18 12/03/18 12/03/18 01:58 05:01 05:01 WBC 9.5 8.8 RBC 3.77 3.80 Hgb 10.1 L D 9.9 L Hct 30.2 L 30.5 L MCV 80.1 80.3 MCH 26.8 26.1 MCHC 33.4 32.5 RDW 16.4 H 16.9 H Plt Count 106 L 129 MPV 9.7 10.6 Neut % (Auto) Lymph % (Auto) [place] % (Auto) Eos % (Auto) Baso % (Auto) Lymph # (Auto) [place] # (Auto) Eos # (Auto) Baso # (Auto) Absolute Neuts (auto) PT INR APTT pO2 VBG pH VBG pCO2 VBG HCO3 VBG Total CO2 VBG O2 Sat (Calc) VBG Base Excess VBG Potassium Glucose Lactate FiO2 Crit Value Called To Crit Value Called By Blood Gas Notified Time Sodium 142 Potassium 4.0 Chloride 111 H Carbon Dioxide 23 Anion Gap 12 BUN 32 H Creatinine 0.5 L Est GFR ( Amer) > 60 Est GFR (Non-Af Amer) > 60 Random Glucose 89 Calcium 8.5 Phosphorus 3.1 Magnesium 2.0 Total Bilirubin 2.4 H AST 46 ALT 27 Alkaline Phosphatase 200 H Ammonia Lactate Dehydrogenase Total Creatine Kinase Troponin I Total Protein 6.4 Albumin 3.0 Globulin 3.4 Albumin/Globulin Ratio 0.9 L Amylase Lipase Venous Blood Potassium Blood Type Antibody Screen Crossmatch BBK History Checked Radiology Impressions: Radiology Impressions Chest X-Ray 12/02/18 12:48 IMPRESSION: No active disease. Abdomen Ultrasound 12/03/18 23:14 IMPRESSION: Gallstones, sludge and gallbladder wall thickening without sonographic Kwan sign. Cirrhotic liver. Patent portal vein. Incompletely visualized abdominal ascites. Nondiagnostic study of the pancreas, IVC and aorta. EKG/Cardiology Studies: Cardiology / EKG Studies 12/02/18 12:48 ELECTROCARDIOGRAM Stat Comment: Reason For Exam: tachycardia Critical Care Progress Note - Nutrition Nutrition: Nutrition Category Date Time Status NPO Diet [DIET] Diets 12/03/18 Breakfast Ordered Assessment/Plan - Assessment and Plan (Free Text) Assessment: 73 yo M with PMH of Hep B, liver cirrhosis, dementia, HTN, and prior stroke who was reported to be vomiting fresh blood x 2 days prior to presentation. However, no hematemesis was noted since admission to [facility] ED. He was given lactulose in ED followed by diarrhea and nita blood per rectum was noted. Possibility of UGI bleed due to portal hypertensive gastropathy is more likely. Plan: Neuro: Alert to person only at this time Has underlying dementia complicated by hepatic encephalopathy Elevated ammonia level noted May restart lactulose for hepatic encephalopathy Will not be able to consent for endoscopy procedure, will nofify brother for consent Cardio: Intermittently hypotensive overnight with tachycardia Improved with IVF resuscitation, octreotide drip No chest pain, negative troponin since admission, no ischemic changes on EKG Pulm: Maintaining SaO2 > 95% on room air, able to protect airway No active issues GI: Patient had endoscopy 1 week ago which did not show any esophageal varices Suspect patient most likely has UGI bleed Per GI, will plan on repeat endoscopy today Patient also has history of AVMs identified on recent flex-sig Continue octreotide, protonix drips for now until procedure Keep NPO prior to procedure Consent to be obtained from brother per GI Surgery also consulted, no role for acute intervention at this time but may consider TIPS in future as bleeds are likely to recur Surgery, GI following, all recs appreciated /Nephro: BUN/Cr stable at 32/0.5 UOP adequate since admission to MICU Endocrinology: Random glucose: 89 Maintain euglycemia Heme/Onc: H/H improved s/p transfusion of 2 u PRBCs Transfuse additional units PRN Continue serial monitoring and monitor for s/sx HD compromise ID: Afebrile, leukocytosis trending down since admission Repeat VBG to verify improvement of lactate F/u sal[place] cx, procal DVT/GI PPX: SCD, other DVT ppx held for concern of GIB/protonix drip Full Code NPO Monitor in MICU Patient seen, examined with, and plan confirmed with my attending Bladimir JohnsonO. IM Resident PGY-1 Pager: [phone] <SofiKleber - Last Filed: 12/03/18 13:54> CCU Objective - Vital Signs / Intake & Output Vital Signs (Last 4 hours): Vital Signs Temp Pulse Resp BP Pulse Ox 12/03/18 12:20 90 26 H 100 12/03/18 12:10 91 H 25 H 100 12/03/18 12:00 98.1 F 92 H 26 H 102/42 L 100 12/03/18 11:50 89 21 100 12/03/18 11:40 85 22 100 12/03/18 11:30 84 25 H 121/61 100 12/03/18 11:20 86 22 100 12/03/18 11:10 86 27 H 100 12/03/18 11:00 99 H 32 H 108/45 L 100 12/03/18 10:50 92 H 27 H 100 12/03/18 10:40 92 H 25 H 100 12/03/18 10:30 98 H 31 H 117/65 100 12/03/18 10:20 87 27 H 100 12/03/18 10:10 93 H 32 H 100 12/03/18 10:00 95 H 26 H 123/61 100 12/03/18 09:50 101 H 23 100 Intake and Output (Last 8hrs): Intake & Output 12/02/18 12/03/18 12/03/18 22:59 06:59 14:59 Intake Total 350 1265 Output Total 0 Balance 350 1265 Weight 110 lb 87 lb 9.6 oz Intake: IV 140 Left Forearm 60 Left Wrist 80 Oral 0 Blood Product 325 975 Red Blood Cells Cpd As1 0 325 Lr Unit [id number] Red Blood Cells Cpd As1 325 Lr Unit [id number] Albumin 150 Other 25 Red Blood Cells Cpd As1 25 Lr Unit [id number] Output: Urine 0 Urine, Voided 0 Other: Voiding Method Diaper # Bowel Movements 1 - Medications Active Medications: Active Medications Generic Name Dose Route Start Last Admin Trade Name Freq PRN Reason Stop Dose Admin Pantoprazole Sodium 40 mg in 100 mls @ 20 mls/hr 12/02/18 17:00 12/03/18 13:28 Protonix 40mg Ivpb IVPB 20 mls/hr .Q5H JUANITA Administration Ceftriaxone Sodium 1 gm in 100 mls @ 100 mls/hr 12/02/18 17:00 12/03/18 10:52 Rocephin 1 Gram Ivpb IVPB 100 mls/hr DAILY JUANITA Administration Protocol Albumin Human 50 mls @ 1 mls/min 12/02/18 17:15 12/03/18 13:25 Albumin Human 25% (12.5 Gm/50 Ml) IVPB 12/04/18 14:04 1 mls/min Q4H JUANITA Administration Octreotide Acetate 1,250 mcg/ 252.5 mls @ 10.1 mls/hr 12/03/18 09:44 Dextrose IV .Q24H JUANITA Protocol 50 MCG/HR Vitamin A 1 ea 12/02/18 23:20 Vitamin A & D Oint Ud Foilpak TOP Q2 PRN Dry mouth - Patient Studies Lab Studies: Lab Studies 12/03/18 12/03/18 12/03/18 Range/Units 05:01 05:01 01:58 WBC 8.8 9.5 (4.5-11.0) 10^3/uL RBC 3.80 3.77 (3.5-6.1) 10^6/uL Hgb 9.9 L 10.1 L D (14.0-18.0) g/dL Hct 30.5 L 30.2 L (42.0-52.0) % MCV 80.3 80.1 (80.0-105.0) fl MCH 26.1 26.8 (25.0-35.0) pg MCHC 32.5 33.4 (31.0-37.0) g/dl RDW 16.9 H 16.4 H (11.5-14.5) % Plt Count 129 106 L (120.0-450.0) 10^3/uL MPV 10.6 9.7 (7.0-11.0) fl Neut % (Auto) (50.0-68.0) % Lymph % (Auto) (22.0-35.0) % [place] % (Auto) (1.0-6.0) % Eos % (Auto) (1.5-5.0) % Baso % (Auto) (0.0-3.0) % Lymph # (Auto) (1.2-3.4) [place] # (Auto) (0.1-0.6) Eos # (Auto) (0.0-0.7) Baso # (Auto) (0.0-2.0) K/mm3 Absolute Neuts (auto) (1.4-6.5) PT (9.4-12.5) SECONDS INR APTT (26.9-38.3) Seconds pO2 (30-55) mm/Hg VBG pH (7.32-7.43) VBG pCO2 (40-60) VBG HCO3 (21-28) mmol/l VBG Total CO2 (22-28) mmol.L VBG O2 Sat (Calc) (40-65) % VBG Base Excess (0.0-2.0) mmol/L VBG Potassium (3.6-5.2) mmol/L Glucose (75-110) mg/dl Lactate (0.7-2.1) mmol/L FiO2 % Crit Value Called To Crit Value Called By Blood Gas Notified Time Sodium 142 (132-148) mmol/L Potassium 4.0 (3.6-5.0) mmol/L Chloride 111 H (98-107) mmol/L Carbon Dioxide 23 (21-33) mmol/L Anion Gap 12 (10-20) BUN 32 H (7-21) mg/dL Creatinine 0.5 L (0.8-1.5) mg/dl Est GFR ( Amer) > 60 Est GFR (Non-Af Amer) > 60 Random Glucose 89 (70-110) mg/dL Calcium 8.5 (8.4-10.5) mg/dL Phosphorus 3.1 (2.5-4.5) mg/dL Magnesium 2.0 (1.7-2.2) mg/dL Total Bilirubin 2.4 H (0.2-1.3) mg/dL AST 46 (17-59) U/L ALT 27 (7-56) U/L Alkaline Phosphatase 200 H (38-126) U/L Ammonia (9-33) umol/L Lactate Dehydrogenase (333-699) U/L Total Creatine Kinase (35-230) U/L Troponin I ng/mL Total Protein 6.4 (5.8-8.3) g/dL Albumin 3.0 (3.0-4.8) g/dL Globulin 3.4 gm/dL Albumin/Globulin Ratio 0.9 L (1.1-1.8) Amylase (35-125) U/L Lipase (23-300) U/L Venous Blood Potassium (3.6-5.2) mmol/L Blood Type Antibody Screen Crossmatch BBK History Checked 12/03/18 12/02/18 12/02/18 Range/Units 01:58 13:44 13:44 WBC (4.5-11.0) 10^3/uL RBC (3.5-6.1) 10^6/uL Hgb (14.0-18.0) g/dL Hct (42.0-52.0) % MCV (80.0-105.0) fl MCH (25.0-35.0) pg MCHC (31.0-37.0) g/dl RDW (11.5-14.5) % Plt Count (120.0-450.0) 10^3/uL MPV (7.0-11.0) fl Neut % (Auto) (50.0-68.0) % Lymph % (Auto) (22.0-35.0) % [place] % (Auto) (1.0-6.0) % Eos % (Auto) (1.5-5.0) % Baso % (Auto) (0.0-3.0) % Lymph # (Auto) (1.2-3.4) [place] # (Auto) (0.1-0.6) Eos # (Auto) (0.0-0.7) Baso # (Auto) (0.0-2.0) K/mm3 Absolute Neuts (auto) (1.4-6.5) PT (9.4-12.5) SECONDS INR APTT (26.9-38.3) Seconds pO2 41 (30-55) mm/Hg VBG pH 7.29 L (7.32-7.43) VBG pCO2 49.0 (40-60) VBG HCO3 23.6 (21-28) mmol/l VBG Total CO2 25.1 (22-28) mmol.L VBG O2 Sat (Calc) 82.2 H (40-65) % VBG Base Excess -3.4 L (0.0-2.0) mmol/L VBG Potassium 4.1 (3.6-5.2) mmol/L Glucose 103 (75-110) mg/dl Lactate 2.9 H (0.7-2.1) mmol/L FiO2 21.0 % Crit Value Called To Afua cheng Crit Value Called By [facility] Blood Gas Notified Time 210 Sodium 142.0 (132-148) mmol/L Potassium (3.6-5.0) mmol/L Chloride 112.0 H (98-107) mmol/L Carbon Dioxide (21-33) mmol/L Anion Gap (10-20) BUN (7-21) mg/dL Creatinine (0.8-1.5) mg/dl Est GFR ( Amer) Est GFR (Non-Af Amer) Random Glucose (70-110) mg/dL Calcium (8.4-10.5) mg/dL Phosphorus (2.5-4.5) mg/dL Magnesium (1.7-2.2) mg/dL Total Bilirubin (0.2-1.3) mg/dL AST (17-59) U/L ALT (7-56) U/L Alkaline Phosphatase (38-126) U/L Ammonia 60 H D (9-33) umol/L Lactate Dehydrogenase (333-699) U/L Total Creatine Kinase (35-230) U/L Troponin I ng/mL Total Protein (5.8-8.3) g/dL Albumin (3.0-4.8) g/dL Globulin gm/dL Albumin/Globulin Ratio (1.1-1.8) Amylase (35-125) U/L Lipase (23-300) U/L Venous Blood Potassium 4.1 (3.6-5.2) mmol/L Blood Type AB POSITIVE Antibody Screen Negative Crossmatch See Detail BBK History Checked Patient has bt 12/02/18 12/02/18 12/02/18 Range/Units 13:44 13:44 13:44 WBC 11.5 H D (4.5-11.0) 10^3/uL RBC 2.42 L (3.5-6.1) 10^6/uL Hgb 6.4 L* D (14.0-18.0) g/dL Hct 20.0 L* (42.0-52.0) % MCV 82.6 (80.0-105.0) fl MCH 26.4 (25.0-35.0) pg MCHC 32.0 (31.0-37.0) g/dl RDW 17.9 H (11.5-14.5) % Plt Count 249 (120.0-450.0) 10^3/uL MPV 10.5 (7.0-11.0) fl Neut % (Auto) 61.3 (50.0-68.0) % Lymph % (Auto) 28.3 (22.0-35.0) % [place] % (Auto) 8.9 H (1.0-6.0) % Eos % (Auto) 1.0 L (1.5-5.0) % Baso % (Auto) 0.5 (0.0-3.0) % Lymph # (Auto) 3.3 (1.2-3.4) [place] # (Auto) 1.0 H (0.1-0.6) Eos # (Auto) 0.1 (0.0-0.7) Baso # (Auto) 0.06 (0.0-2.0) K/mm3 Absolute Neuts (auto) 7.06 H (1.4-6.5) PT 16.9 H (9.4-12.5) SECONDS INR 1.50 APTT 34.4 (26.9-38.3) Seconds pO2 (30-55) mm/Hg VBG pH (7.32-7.43) VBG pCO2 (40-60) VBG HCO3 (21-28) mmol/l VBG Total CO2 (22-28) mmol.L VBG O2 Sat (Calc) (40-65) % VBG Base Excess (0.0-2.0) mmol/L VBG Potassium (3.6-5.2) mmol/L Glucose (75-110) mg/dl Lactate (0.7-2.1) mmol/L FiO2 % Crit Value Called To Crit Value Called By Blood Gas Notified Time Sodium 137 (132-148) mmol/L Potassium 4.1 (3.6-5.0) mmol/L Chloride 107 (98-107) mmol/L Carbon Dioxide 22 (21-33) mmol/L Anion Gap 13 (10-20) BUN 37 H (7-21) mg/dL Creatinine 0.5 L (0.8-1.5) mg/dl Est GFR ( Amer) > 60 Est GFR (Non-Af Amer) > 60 Random Glucose 114 H (70-110) mg/dL Calcium 8.3 L (8.4-10.5) mg/dL Phosphorus (2.5-4.5) mg/dL Magnesium (1.7-2.2) mg/dL Total Bilirubin 1.3 (0.2-1.3) mg/dL AST 45 (17-59) U/L ALT 25 (7-56) U/L Alkaline Phosphatase 192 H D (38-126) U/L Ammonia (9-33) umol/L Lactate Dehydrogenase 463 (333-699) U/L Total Creatine Kinase < 20 L (35-230) U/L Troponin I < 0.01 ng/mL Total Protein 5.5 L (5.8-8.3) g/dL Albumin 2.3 L (3.0-4.8) g/dL Globulin 3.2 gm/dL Albumin/Globulin Ratio 0.7 L (1.1-1.8) Amylase 64 (35-125) U/L Lipase 184 (23-300) U/L Venous Blood Potassium (3.6-5.2) mmol/L Blood Type Antibody Screen Crossmatch BBK History Checked Laboratory Results - last 24 hr 12/02/18 12/02/18 12/02/18 13:44 13:44 13:44 WBC 11.5 H D RBC 2.42 L Hgb 6.4 L* D Hct 20.0 L* MCV 82.6 MCH 26.4 MCHC 32.0 RDW 17.9 H Plt Count 249 MPV 10.5 Neut % (Auto) 61.3 Lymph % (Auto) 28.3 [place] % (Auto) 8.9 H Eos % (Auto) 1.0 L Baso % (Auto) 0.5 Lymph # (Auto) 3.3 [place] # (Auto) 1.0 H Eos # (Auto) 0.1 Baso # (Auto) 0.06 Absolute Neuts (auto) 7.06 H PT 16.9 H INR 1.50 APTT 34.4 pO2 VBG pH VBG pCO2 VBG HCO3 VBG Total CO2 VBG O2 Sat (Calc) VBG Base Excess VBG Potassium Glucose Lactate FiO2 Crit Value Called To Crit Value Called By Blood Gas Notified Time Sodium 137 Potassium 4.1 Chloride 107 Carbon Dioxide 22 Anion Gap 13 BUN 37 H Creatinine 0.5 L Est GFR ( Amer) > 60 Est GFR (Non-Af Amer) > 60 Random Glucose 114 H Calcium 8.3 L Phosphorus Magnesium Total Bilirubin 1.3 AST 45 ALT 25 Alkaline Phosphatase 192 H D Ammonia Lactate Dehydrogenase 463 Total Creatine Kinase < 20 L Troponin I < 0.01 Total Protein 5.5 L Albumin 2.3 L Globulin 3.2 Albumin/Globulin Ratio 0.7 L Amylase 64 Lipase 184 Venous Blood Potassium Blood Type Antibody Screen Crossmatch BBK History Checked 12/02/18 12/02/18 12/03/18 13:44 13:44 01:58 WBC RBC Hgb Hct MCV MCH MCHC RDW Plt Count MPV Neut % (Auto) Lymph % (Auto) [place] % (Auto) Eos % (Auto) Baso % (Auto) Lymph # (Auto) [place] # (Auto) Eos # (Auto) Baso # (Auto) Absolute Neuts (auto) PT INR APTT pO2 41 VBG pH 7.29 L VBG pCO2 49.0 VBG HCO3 23.6 VBG Total CO2 25.1 VBG O2 Sat (Calc) 82.2 H VBG Base Excess -3.4 L VBG Potassium 4.1 Glucose 103 Lactate 2.9 H FiO2 21.0 Crit Value Called To Afua cheng Crit Value Called By [facility] Blood Gas Notified Time 210 Sodium 142.0 Potassium Chloride 112.0 H Carbon Dioxide Anion Gap BUN Creatinine Est GFR ( Amer) Est GFR (Non-Af Amer) Random Glucose Calcium Phosphorus Magnesium Total Bilirubin AST ALT Alkaline Phosphatase Ammonia 60 H D Lactate Dehydrogenase Total Creatine Kinase Troponin I Total Protein Albumin Globulin Albumin/Globulin Ratio Amylase Lipase Venous Blood Potassium 4.1 Blood Type AB POSITIVE Antibody Screen Negative Crossmatch See Detail BBK History Checked Patient has bt 12/03/18 12/03/1812/03/19 01:58 05:01 05:01 WBC 9.5 8.8 RBC 3.77 3.80 Hgb 10.1 L D 9.9 L Hct 30.2 L 30.5 L MCV 80.1 80.3 MCH 26.8 26.1 MCHC 33.4 32.5 RDW 16.4 H 16.9 H Plt Count 106 L 129 MPV 9.7 10.6 Neut % (Auto) Lymph % (Auto) [place] % (Auto) Eos % (Auto) Baso % (Auto) Lymph # (Auto) [place] # (Auto) Eos # (Auto) Baso # (Auto) Absolute Neuts (auto) PT INR APTT pO2 VBG pH VBG pCO2 VBG HCO3 VBG Total CO2 VBG O2 Sat (Calc) VBG Base Excess VBG Potassium Glucose Lactate FiO2 Crit Value Called To Crit Value Called By Blood Gas Notified Time Sodium 142 Potassium 4.0 Chloride 111 H Carbon Dioxide 23 Anion Gap 12 BUN 32 H Creatinine 0.5 L Est GFR ( Amer) > 60 Est GFR (Non-Af Amer) > 60 Random Glucose 89 Calcium 8.5 Phosphorus 3.1 Magnesium 2.0 Total Bilirubin 2.4 H AST 46 ALT 27 Alkaline Phosphatase 200 H Ammonia Lactate Dehydrogenase Total Creatine Kinase Troponin I Total Protein 6.4 Albumin 3.0 Globulin 3.4 Albumin/Globulin Ratio 0.9 L Amylase Lipase Venous Blood Potassium Blood Type Antibody Screen Crossmatch BBK History Checked Radiology Impressions: Radiology Impressions Chest X-Ray 12/02/18 12:48 IMPRESSION: No active disease. Abdomen Ultrasound 12/03/18 23:14 IMPRESSION: Gallstones, sludge and gallbladder wall thickening without sonographic Kwan sign. Cirrhotic liver. Patent portal vein. Incompletely visualized abdominal ascites. Nondiagnostic study of the pancreas, IVC and aorta. Critical Care Progress Note - Nutrition Nutrition: Nutrition Category Date Time Status NPO Diet [DIET] Diets 12/03/18 Breakfast Ordered Assessment/Plan - Assessment and Plan (Free Text) Plan: I saw and examined the patient with the resident, agree with note with following additions/exceptions: Patient is 73yo male with PMH of Hep B, liver cirrhosis, dementia, HTN, EtOH abuse, presented with hematemesis, and BRBPR Patient had recently EGD and colonoscopy, results noted Pt given 2u PRBC, with appropriate response of HH GI following, possible repeat EGD today Currently afebrile, HD stable, comfortable in NAD, NPO GIB Anemia Hx of Hep B EtOH abuse Cirrhosis of liver Dementia HTN Recommend: - cont with supp o2 as eneded, duonebs PRN, goal sat 90% - SBP ppx, Rocephin IV - NPO - hold BP meds - Lactulose PO, titrate to 2-3 BMS/day - would hold off further prbc transfusion, goal HH 7 - PPI drip, Octreotide drip - follow up GI - consider TIPS if clinical deterioration - DVT ppx, SCDs - Monitor in MICU
--- NOTE | 2018-12-03 13:19 | CP.PCM.PN ---
Subjective - Date & Time of Evaluation Date of Evaluation: 12/03/18 Time of Evaluation: 13:18 - Subjective Subjective: General Surgery Dr. Rose Pt seen and examined @bedside. No acute events overnight. Pt refused to answer questions this AM. ROS unobtainable 2/2 pt uncooperative. Objective - Vital Signs/Intake and Output Vital Signs (last 24 hours): Temp Pulse Resp BP Pulse Ox 98.1 F 90 26 H 102/42 L 100 12/03/18 12:00 12/03/18 12:20 12/03/18 12:20 12/03/18 12:00 12/03/18 12:20 Intake and Output: 12/03/18 12/03/18 06:59 18:59 Intake Total 1590 Output Total 0 Balance 1590 - Medications Medications: Current Medications Pantoprazole Sodium (Protonix 40mg Ivpb) 40 mg in 100 mls @ 20 mls/hr IVPB .Q5H JUANITA Last Admin: 12/03/18 05:31 Dose: 20 mls/hr Ceftriaxone Sodium (Rocephin 1 Gram Ivpb) 1 gm in 100 mls @ 100 mls/hr IVPB DAILY JUANITA; Protocol Last Admin: 12/03/18 10:52 Dose: 100 mls/hr Albumin Human (Albumin Human 25% (12.5 Gm/50 Ml)) 50 mls @ 1 mls/min IVPB Q4H JUANITA Stop: 12/04/18 14:04 Last Admin: 12/03/18 09:00 Dose: 1 mls/min Octreotide Acetate 1,250 mcg/ (Dextrose) 252.5 mls @ 10.1 mls/hr IV .Q24H JUANITA; Protocol Vitamin A (Vitamin A & D Oint Ud Foilpak) 1 ea TOP Q2 PRN PRN Reason: Dry mouth - Labs Labs: 12/03/18 05:01 12/03/18 05:01 PT 16.9 SECONDS (9.4-12.5) H 12/02/18 13:44 INR 1.50 12/02/18 13:44 APTT 34.4 Seconds (26.9-38.3) 12/02/18 13:44 - Constitutional Appears: Non-toxic, No Acute Distress - Head Exam Head Exam: NORMAL INSPECTION - Eye Exam Eye Exam: Normal appearance - ENT Exam ENT Exam: Mucous Membranes Moist - Respiratory Exam Respiratory Exam: NORMAL BREATHING PATTERN. absent: Accessory Muscle Use, Respiratory Distress - Cardiovascular Exam Cardiovascular Exam: REGULAR RHYTHM. absent: Bradycardia, Tachycardia - GI/Abdominal Exam GI & Abdominal Exam: Distended (ascites), Soft. absent: Firm, Guarding, Rigid, Tenderness, Rebound - Extremities Exam Extremities Exam: Normal Inspection - Neurological Exam Neurological Exam: Alert, Awake - Skin Skin Exam: Dry, Intact, Normal Color, Warm Assessment and Plan (1) Ascites Assessment & Plan: monitor abd distention may need paracentesis during admission Status: Chronic (2) GI bleed Assessment & Plan: monitor bowel function monitor Hgb, currently 9.9 (10.1) recommend CBC Q6 until Hgb stable transfuse for Hgb <7 or unstable vitals f/u GI recs --> possible colonoscopy today? advance diet as per GI Status: Acute
--- NOTE | 2018-12-03 13:45 | CP.PCM.APN ---
Subjective - Date & Time of Evaluation Date of Evaluation: 12/03/18 Time of Evaluation: 12:00 - Subjective Subjective: Pt. seen, resting in bed , appears comfortable, no complaints. Remains on ocreotide drip and protonix drip. No further bleeding episodes reported. Objective - Vital Signs/Intake and Output Vital Signs (last 24 hours): Temp Pulse Resp BP Pulse Ox 98.1 F 90 26 H 102/42 L 100 12/03/18 12:00 12/03/18 12:20 12/03/18 12:20 12/03/18 12:00 12/03/18 12:20 Intake and Output: 12/03/18 12/03/18 06:59 18:59 Intake Total 1590 Output Total 0 Balance 1590 - Medications Medications: Current Medications Pantoprazole Sodium (Protonix 40mg Ivpb) 40 mg in 100 mls @ 20 mls/hr IVPB .Q5H JUANITA Last Admin: 12/03/18 13:28 Dose: 20 mls/hr Ceftriaxone Sodium (Rocephin 1 Gram Ivpb) 1 gm in 100 mls @ 100 mls/hr IVPB DAILY JUANITA; Protocol Last Admin: 12/03/18 10:52 Dose: 100 mls/hr Albumin Human (Albumin Human 25% (12.5 Gm/50 Ml)) 50 mls @ 1 mls/min IVPB Q4H JUANITA Stop: 12/04/18 14:04 Last Admin: 12/03/18 13:25 Dose: 1 mls/min Octreotide Acetate 1,250 mcg/ (Dextrose) 252.5 mls @ 10.1 mls/hr IV .Q24H JUANITA; Protocol Vitamin A (Vitamin A & D Oint Ud Foilpak) 1 ea TOP Q2 PRN PRN Reason: Dry mouth - Labs Labs: 12/03/18 05:01 12/03/18 05:01 PT 16.9 SECONDS (9.4-12.5) H 12/02/18 13:44 INR 1.50 12/02/18 13:44 APTT 34.4 Seconds (26.9-38.3) 12/02/18 13:44 - Constitutional Appears: Well, Non-toxic - Head Exam Head Exam: NORMOCEPHALIC - Neck Exam Neck Exam: Full ROM - Respiratory Exam Respiratory Exam: NORMAL BREATHING PATTERN - Cardiovascular Exam Cardiovascular Exam: REGULAR RHYTHM, +S1, +S2 - GI/Abdominal Exam GI & Abdominal Exam: Soft - Rectal Exam Rectal Exam: Deferred - Exam Exam: absent: Circumcision, NORMAL INSPECTION, Scrotal Swelling, Testicular Tenderness, Uretheral Discharge, Testicular Vertical Lie, Bladder Distension External exam: absent: Ecchymosis, Erythema, Lacerations, Lesions, NORMAL EXTERNAL EXAM, Swelling Speculum exam: absent: Cervical Discharge, Erythema, Foreign Body, Laceration, NORMAL SPECULUM EXAM, Tissue, Vaginal Bleeding, Vaginal Discharge Bimanual exam: absent: Adenexal Mass, Adnexal, Cervical Motion Tendernes, NORMAL BIMANUAL EXAM, Uterine Enlargement, Uterine Tenderness - Extremities Exam Extremities Exam: Full ROM - Neurological Exam Neurological Exam: Alert, Awake, Oriented x3 - Skin Skin Exam: Dry, Intact, Normal Color, Warm Assessment and Plan - Assessment and Plan (Free Text) Assessment: ITS Impressions Chest X-Ray 12/02/18 12:48 IMPRESSION: No active disease. Abdomen Ultrasound 12/03/18 23:14 IMPRESSION: Gallstones, sludge and gallbladder wall thickening without sonographic Kwan sign. Cirrhotic liver. Patent portal vein. Incompletely visualized abdominal ascites. Nondiagnostic study of the pancreas, IVC and aorta. Assessment: 73yo male with PMHx significant for decompensated EtOH cirrhosis c/b ascites, hepatic encephalopathy and bleeding esophageal varices, rectal varices, diverticulosis, h/o HBV and HCV exposure, EtOH abuse, COPD and tobacco abuse, blindness and decreased hearing acuity who presented to the ED abdominal pain, hematemesis and melena, found to have Hgb 6.4 on admission, admitted with severe anemia and GI Bleed for further eval and treatment. Plan: 1. Upper/Lower GI Bleed For EGD, Enteroscopy today per GI. Monitor, trend hgb, continue Ocreotide drip, and Protonix drip per GI. 2. Anemia- Improved, post blood transfusions Monitor , trend cbc. 3. Hypoalbuminemia- Albumin ordered, will monitor albumin levels. Pt. eval pending, will continue to monitor clinical status and follow closely.
--- NOTE | 2018-12-03 16:48 | CON ---
DATE: 12/03/2018 PULMONARY CONSULT NOTE REFERRING PHYSICIAN: Evie Ponce MD REASON FOR CONSULT: Chronic lung disease and cough. HISTORY OF PRESENT ILLNESS: This is a 73-year-old male, well known to us from previous admissions. Past medical history significant for cirrhotic liver, chronic lung disease, esophageal and gastric varices, ascites requiring paracentesis in the past, legally blind, anemia requiring transfusions in the past, and noncompliance with treatment plan. The patient was brought into the emergency room by EMS for vomiting blood for 2 days. The patient at this time seen lying in bed, in no acute distress. Nursing staff reports that early this morning, the patient was having some wheezing. PAST MEDICAL HISTORY: Coronary artery disease, hypertension, COPD, blind, deaf, glaucoma, diabetes mellitus, anemia status post blood transfusion, history of cholelithiasis, colitis, esophageal varices, history of ascites with paracentesis, alcoholic cirrhosis of the liver, urinary incontinence, depression, psychosis, and hernia repair. FAMILY HISTORY: No significant cardiopulmonary disease reported. ALLERGIES: NO KNOWN ALLERGIES. SOCIAL HISTORY: Positive EtOH abuse. Former smoker. No illicit drug use. MEDICATIONS: Reviewed. Albumin 25% 50 mL at 1 mL per minute every 4 hours, Rocephin 1 g daily, octreotide acetate 1250 mcg and Dextrose at 252.5 mL at 10.1 mL per hour, Protonix 40 mg in 100 mL at 20 mL per hour every 5 hours, and Vitamin A and D ointment every 12 hours p.r.n. REVIEW OF SYSTEMS: No headache, rhinitis, chest pain, abdominal pain, nausea, vomiting, diarrhea, leg pain, or leg swelling reported. Reports occasional cough. PHYSICAL EXAMINATION: GENERAL: No acute distress. VITAL SIGNS: Blood pressure 102/42, pulse 92, temperature 98.1, and oxygen saturation 100% on room air. HEENT: Moist mucous membranes. Small oral cavity. NECK: Supple. No JVD. LUNGS: Diffuse scattered rhonchi. CARDIOVASCULAR: S1 and S2. ABDOMEN: Soft, distended, and nontender. EXTREMITIES: No bilateral lower extremity edema. GENITOURINARY: Positive Lynn catheter. NEUROLOGIC: Awake, alert, and verbal. Hard of hearing. LABORATORY DATA: Reviewed. WBC 8.8, RBC 3.8, hemoglobin 9.9, hematocrit 30.5, and platelets 129. PT 16.9, INR 1.50, APTT 34.4, pO2 of 41, venous blood gas pH 7.29, venous blood gas pCO2 of 49, venous blood gas HCO3 of 23.9, and FiO2 of 21. Sodium 142, potassium 4.0, chloride 111, carbon dioxide 23, anion gap 12, BUN 32, creatinine 0.5, GFR greater than 60, and random glucose 89. Calcium 8.5, phosphorus 3.1, magnesium 2.0, total bilirubin 2.4, AST 46, ALT 27, alkaline phosphatase 200, total protein 6.4, albumin 3.0, globulin 3.4, and albumin-globulin ratio 0.9. Abdominal ultrasound shows gallstones, large and gallbladder wall thickening without sonographic Kawn sign, cirrhotic liver, patent portal vein, and incompletely visualized abdominal ascites. EKG; probably atrial flutter. Chest x-ray; no active disease. IMPRESSION AND PLAN: Gastrointestinal bleed, anemia, chronic obstructive lung disease, status post blood transfusion, renal insufficiency, cirrhosis of the liver, history of alcohol abuse, history of hepatitis B, esophageal varices, gastric varices, ascites requiring multiple paracentesis in the past, and hard of hearing. Pulmonary point of view, we will place the patient on inhaled bronchodilators, Brovana, and Pulmicort. Continue sequential compression devices to bilateral lower extremities. The patient cannot be on chemical prophylaxis due to history of anemia, status post transfusion. Gastric prophylaxis. Continue Gastroenterology followup. This patient was seen and examined with Dr. Atkins. Discussed assessment and plan as described above. The patient was seen and examined with Garry Gutierrez, nursing practitioner. Discussed assessment and plan as described above. Thank you for this consult. We will follow with you. Garry Gutierrez APN Theodore Atkins MD
[2018-12-03] MEDS ORDERED: Propofol 10 mg/ml Inj (20 ML) ONE (18:38)
[2018-12-03] MEDS ORDERED: Etomidate 20 mg/10ml Inj IV ONE (18:47)
[2018-12-03] MEDS: Arformoterol 15 mcg/2 ml Inh Sol IH SCH (19:52)
[2018-12-03] MEDS: Albuterol-Ipratrop 3 mg / 0.5 (3 ml) UD IH PRN (19:52)
[2018-12-03] MEDS: Budesonide 0.5 mg/2 ml Inhal Susp UD IH SCH (19:53)
--- NOTE | 2018-12-03 23:25 | PN ---
This case has been discussed with Dr. Ponce; she is inagreement with the treatment plan DATE: 12/03/2018 SUBJECTIVE: This is a 73-year-old male, came in to the ER with hemoptysis, hemachezia abdominal pain, hypertension The patient has a past medical history of cirrhosis of the liver, GI bleed, anemia, COPD, hypertension, alcoholism, Lee's esophagus, dementia, duodenal disease. The patient is very noncompliant according to the nurses last night in ICU refusing lab work, medication. The patient was seen today at the bedside. He is alert disoriented, agitated. no apparenst acute distress shortness of breath. The patient is n.p.o. at this time. Reports some fatigue, dry mouth. PHYSICAL EXAMINATION: VITAL SIGNS: Pulse rate 86, blood pressure 88/76, respiratory rate 23, and oxygen sat is 100% on room air. GENERAL APPEARANCE: The patient appears acutely ill, agitated. HEENT: Normocephalic, atraumatic. PERRLA. Mucous membranes dry. NECK: Supple. No thyromegaly. RESPIRATORY: Wheezing, clear with cough. No rhonchi. No adventitious breath sounds. CARDIOVASCULAR: S1 and S2. No JVD, murmur, or gallop. GASTROINTESTINAL: Abdomen is slightly distended. No guarding or organomegaly. EXTREMITIES: The patient is moving all extremities. No cyanosis. No edema. No calf tenderness. NEUROLOGIC: The patient is alert and oriented x2 to 3, with some cognitive deficit. MEDICATIONS: Albuterol, DuoNeb, Brovana, Pulmicort, Rocephin IV piggyback, Protonix, vitamin A and D, had one dose of lactulose due to elevated ammonia level. LABORATORY DATA: White blood cells 8.8, hemoglobin 9.9 up from 6.4, hematocrit 30.4 up from 20, platelet count 129, neutrophils 61.3. PT/INR: PT 16.9, INR 1.5. Sodium 142, potassium 4, BUN is 32, creatinine 0.5, GFR is over 60. AST is 46, ALT is 27, bilirubin elevated at 2.4, ALP 200. Ammonia 60. ASSESSMENT AND PLAN: This is a 73-year-old male, came in with bleeding esophageal varices. Has a history of cirrhosis of liver, gastrointestinal bleed, hypertension, alcoholism, hyperlipidemia. The patient is noncompliant, at times agitated to interviewer. The patient is continuing on intravenous antibiotic Rocephin, Pulmicort, and Brovana. The patient's ammonia level was 60 on 12/02/2018. The patient had 20 g of lactulose. We will repeat ammonia level for tomorrow. Plan accordingly. Gastroenterology is on the case. Pulmonary is on the case. General Surgery is on the case. Infectious Disease is on the case. We will follow the patient's lab of ammonia level, chemistry level, hemoglobin and hematocrit and plan accordingly. The patient is very noncompliant. We will follow up the patient. ALL ABOVE NOTED , AGREED ALL ABOVE , EDUCATION DONE , WILL F/U Femi Moffett APN Evie Ponce MD JULIET
[2018-12-04] MEDS: Arformoterol 15 mcg/2 ml Inh Sol IH SCH ×2 (07:35→19:31)
[2018-12-04] MEDS: Budesonide 0.5 mg/2 ml Inhal Susp UD IH SCH ×2 (07:35→19:32)
--- NOTE | 2018-12-04 07:46 | CP.PCM.PN ---
Subjective - Date & Time of Evaluation Date of Evaluation: 12/04/18 Time of Evaluation: 07:00 - Subjective Subjective: SURGERY NOTE FOR DR. CM 73M seen and examined at bedside. Patient doing well this AM, awake alert and conversing. States he does have diffuse mild abdominal pain controlled with medications. Per notes and patient, no documented further bleeding over night. Patient underwent upper endoscopy yesterday with showed esophagitis and non bleeding grade 1 esophageal varices. Objective - Vital Signs/Intake and Output Vital Signs (last 24 hours): Temp Pulse Resp BP Pulse Ox 99 F 86 27 H 114/57 L 100 12/04/18 00:00 12/04/18 07:20 12/04/18 07:20 12/04/18 07:00 12/04/18 07:20 - Medications Medications: Current Medications Albuterol/Ipratropium (Duoneb 3 Mg/0.5 Mg (3 Ml) Ud) 3 ml IH [id number] PRN PRN Reason: Shortness of Breath Last Admin: 12/03/18 19:52 Dose: 3 ml Arformoterol Tartrate (Brovana) 15 mcg IH [id number] JUANITA Last Admin: 12/04/18 07:35 Dose: 15 mcg Budesonide (Pulmicort Respules) 0.5 mg IH [id number] JUANITA Last Admin: 12/04/18 07:35 Dose: 0.5 mg Ceftriaxone Sodium (Rocephin 1 Gram Ivpb) 1 gm in 100 mls @ 100 mls/hr IVPB DAILY JUANITA; Protocol Last Admin: 12/03/18 10:52 Dose: 100 mls/hr Pantoprazole Sodium (Protonix Inj) 40 mg IVP Q12 JUANITA Last Admin: 12/03/18 22:21 Dose: 40 mg Vitamin A (Vitamin A & D Oint Ud Foilpak) 1 ea TOP Q2 PRN PRN Reason: Dry mouth - Labs Labs: 12/03/18 05:01 12/03/18 05:01 PT 16.9 SECONDS (9.4-12.5) H 12/02/18 13:44 INR 1.50 12/02/18 13:44 APTT 34.4 Seconds (26.9-38.3) 12/02/18 13:44 - Constitutional Appears: Non-toxic, No Acute Distress - Respiratory Exam Respiratory Exam: Clear to Ausculation Bilateral, NORMAL BREATHING PATTERN - Cardiovascular Exam Cardiovascular Exam: REGULAR RHYTHM, +S1, +S2 - GI/Abdominal Exam GI & Abdominal Exam: Soft. absent: Distended, Firm, Guarding, Rigid, Tenderness, Rebound - Neurological Exam Neurological Exam: Alert, Awake - Skin Skin Exam: Dry, Intact, Normal Color, Warm Assessment and Plan - Assessment and Plan (Free Text) Assessment: 73M upper GI bleed with have resolved, s/p EGD showing grade C esophagitis, Non- bleeding [id number] varices, portal HTN gastropathy Plan: - Per GI, continue Protonix BID - Advance diet as tolerated - Monitor Hgb level - Transfuse has needed for Hgb>7 - Further recs discuss with Dr. Milton Lacey, PGY3
[2018-12-04] MEDS: cefTRIAXone 1 gm 1 GM/100 ML BAG IVPB SCH (09:11)
--- NOTE | 2018-12-04 10:44 | CP.CCUPN ---
<Natan Carcamo - Last Filed: 12/04/18 10:40> CCU Subjective - Physician Review Subjective (Free Text): Natan Carcamo DO, PGY-1 MICU Progress Note for Dr. Farah Patient was seen and examined at bedside this AM. He remains confused and alert only to person. He is remaining non-cooperative and is refusing all blood draws/lab work. CCU Objective - Vital Signs / Intake & Output Vital Signs (Last 4 hours): Vital Signs Pulse Resp BP Pulse Ox 12/04/18 07:20 86 27 H 100 12/04/18 07:10 81 29 H 100 12/04/18 07:00 96 H 34 H 114/57 L 100 12/04/18 06:50 77 20 100 Intake and Output (Last 8hrs): Intake & Output 12/03/18 12/04/18 12/04/18 22:59 06:59 14:59 Intake Total 530 800 Output Total 200 230 Balance 330 570 Intake: IV 430 0 Left Forearm 0 Left Wrist 0 TLC 430 Oral 800 Albumin 100 Output: Urine 200 230 Urethral (Lynn) 200 230 Stool 0 Other: # Bowel Movements 3 - Physical Exam Physical Exam Limitations: Positive for: Altered Mental Status, Uncooperative, Other (seen curled up in bed, generally non-cooperative, alert only to person) Head: Positive for: Atraumatic, Normocephalic Pupils: Positive for: PERRL Extroacular Muscles: Positive for: EOMI Conjunctiva: Positive for: Other (conjunctival pallor noted). Negative for: Icteric Mouth: Positive for: Dry, Other (dried blood present) Neck: Positive for: Normal Range of Motion Respiratory/Chest: Positive for: Clear to Auscultation, Good Air Exchange. Negative for: Respiratory Distress, Accessory Muscle Use, Wheezes, Rales, Rhonchi Cardiovascular: Positive for: Regular Rate and Rhythm, Normal S1, S2. Negative for: Murmurs, Rub, Gallop Abdomen: Negative for: Tenderness, Distention, Peritoneal Signs Rectal: Positive for: Other (patient refusing rectal exam, generally non- cooperative) Upper Extremity: Positive for: Normal Inspection. Negative for: Cyanosis, Edema Lower Extremity: Positive for: Normal Inspection. Negative for: Edema Neurological: Positive for: Other (alert only to person, speech normal, no focal deficits, moving all extremities spontaneously, at baseline) Skin: Positive for: Warm, Dry, Pale. Negative for: Rashes Psychiatric: Positive for: Alert. Negative for: Oriented x 3 - Medications Active Medications: Active Medications Generic Name Dose Route Start Last Admin Trade Name Freq PRN Reason Stop Dose Admin Albuterol/Ipratropium 3 ml 12/03/18 15:12 12/03/18 19:52 Duoneb 3 Mg/0.5 Mg (3 Ml) Ud IH 3 ml [id number] PRN Administration Shortness of Breath Arformoterol Tartrate 15 mcg 12/03/18 20:00 12/04/18 07:35 Brovana IH 15 mcg [id number] JUANITA Administration Budesonide 0.5 mg 12/03/18 20:00 12/04/18 07:35 Pulmicort Respules IH 0.5 mg [id number] JUANITA Administration Ceftriaxone Sodium 1 gm in 100 mls @ 100 mls/hr 12/02/18 17:00 12/04/18 09:11 Rocephin 1 Gram Ivpb IVPB 100 mls/hr DAILY JUANITA Administration Protocol Pantoprazole Sodium 40 mg 12/03/18 22:00 12/04/18 09:11 Protonix Inj IVP 40 mg Q12 JUANITA Administration Vitamin A 1 ea 12/02/18 23:20 Vitamin A & D Oint Ud Foilpak TOP Q2 PRN Dry mouth - Patient Studies Radiology Impressions: Radiology Impressions Abdomen Ultrasound 12/03/18 23:14 IMPRESSION: Gallstones, sludge and gallbladder wall thickening without sonographic Kwan sign. Cirrhotic liver. Patent portal vein. Incompletely visualized abdominal ascites. Nondiagnostic study of the pancreas, IVC and aorta. Critical Care Progress Note - Nutrition Nutrition: Nutrition Category Date Time Status Liquid Diet [DIET] Diets 12/03/18 Dinner Ordered Assessment/Plan - Assessment and Plan (Free Text) Assessment: 73 yo M with PMH of Hep B, liver cirrhosis, dementia, HTN, and prior stroke who was reported to be vomiting fresh blood x 2 days prior to presentation. However, no hematemesis was noted since admission to [facility] [place] [facility]. He was given lactulose in ED followed by diarrhea and nita blood per rectum was noted. Possibility of UGI bleed due to portal hypertensive gastropathy is more likely. He was admitted to MICU for close monitoring for concern of active variceal bleed. Plan: Neuro: Alert to person only at this time Has underlying dementia complicated by hepatic encephalopathy Elevated ammonia level noted Consider restarting lactulose for hepatic encephalopathy Cardio: Patient now RRR, only a few episodes of mild hypotension overnight This AM, maintaining MAP > 65 without pressor support TTE completed last year with EF > 65% Patient remaining HD stable, may transfer to med/surg Pulm: Maintaining SaO2 > 95% on room air, able to protect airway No active issues GI: Patient is now s/p push endoscopy last night No active variceal bleeds or ulcers were noted Recommended BID PPI and starting BB and placing patient on clear liquid diet Surgery also consulted, no role for acute intervention at this time but may consider TIPS in future as bleeds are likely to recur Surgery, GI following, all recs appreciated /Nephro: BUN/Cr stable during last labs, patient refusing labs since then UOP adequate since admission to MICU Endocrinology: Maintain euglycemia Heme/Onc: H/H improved s/p transfusion of 2 u PRBCs Unclear whether this improved H/H as patient is refusing all lab draws Transfuse additional units PRN Continue serial monitoring and monitor for s/sx HD compromise ID: Afebrile, leukocytosis trended down since admission Repeat lactate not done as patient is refusing lab draws DVT/GI PPX: SCD, other DVT ppx held for concern of GIB/protonix BID as recommended by GI Full Code Clear liquid diet Transfer to med/surg Patient seen, examined with, and plan confirmed with my attending Dr. Sofi Carcamo, D.O. IM Resident PGY-1 Pager: [phone] <Kleber Farah - Last Filed: 12/04/18 13:16> CCU Objective - Vital Signs / Intake & Output Intake and Output (Last 8hrs): Intake & Output 12/03/18 12/04/18 12/04/18 22:59 06:59 14:59 Intake Total 530 800 Output Total 200 230 Balance 330 570 Intake: IV 430 0 Left Forearm 0 Left Wrist 0 TLC 430 Oral 800 Albumin 100 Output: Urine 200 230 Urethral (Lynn) 200 230 Stool 0 Other: # Bowel Movements 3 - Medications Active Medications: Active Medications Generic Name Dose Route Start Last Admin Trade Name Freq PRN Reason Stop Dose Admin Albuterol/Ipratropium 3 ml 12/03/18 15:12 12/03/18 19:52 Duoneb 3 Mg/0.5 Mg (3 Ml) Ud IH 3 ml [id number] PRN Administration Shortness of Breath Arformoterol Tartrate 15 mcg 12/03/18 20:00 12/04/18 07:35 Brovana IH 15 mcg [id number] JUANITA Administration Budesonide 0.5 mg 12/03/18 20:00 12/04/18 07:35 Pulmicort Respules IH 0.5 mg [id number] JUANITA Administration Ceftriaxone Sodium 1 gm in 100 mls @ 100 mls/hr 12/02/18 17:00 12/04/18 09:11 Rocephin 1 Gram Ivpb IVPB 100 mls/hr DAILY JUANITA Administration Protocol Lactulose 20 gm 12/04/18 22:00 Enulose PO HS JUANITA Pantoprazole Sodium 40 mg 12/03/18 22:00 12/04/18 09:11 Protonix Inj IVP 40 mg Q12 JUANITA Administration Rifaximin 550 mg 12/04/18 18:00 Xifaxan PO BID JUANITA Protocol Spironolactone 25 mg 12/04/18 18:00 Aldactone PO BID JUANITA Vitamin A 1 ea 12/02/18 23:20 Vitamin A & D Oint Ud Foilpak TOP Q2 PRN Dry mouth - Patient Studies Lab Studies: Microbiology Studies 12/02/18 23:10 MRSA Culture (Admit) - Final Naris MRSA NOT DETECTED Critical Care Progress Note - Nutrition Nutrition: Nutrition Category Date Time Status Liquid Diet [DIET] Diets 12/03/18 Dinner Ordered Assessment/Plan - Assessment and Plan (Free Text) Plan: I saw and examined the patient with the resident, agree with note with following additions/exceptions: Patient is 73yo male with PMH of Hep B, liver cirrhosis, dementia, HTN, EtOH abuse, presented with hematemesis, and BRBPR Patient had recently EGD and colonoscopy, results noted Pt given 2u PRBC, with appropriate response of HH HH has been stable Pt refused labs today Pt had repeat EGD done yesterday, no bleeding varices, no active bleeding Currently afebrile, HD stable, comfortable in NAD GIB Anemia Hx of Hep B EtOH abuse Cirrhosis of liver Dementia HTN Recommend: - cont with supp o2 as eneded, duonebs PRN, goal sat 90% - DC Rocephin IV - hold BP meds - Lactulose PO, titrate to 2-3 BMS/day - would hold off further prbc transfusion, goal HH 7 - DC PPI drip, DC Octreotide drip - follow up GI - DVT ppx, SCDs - Stable, transfer to med surg
--- NOTE | 2018-12-04 11:31 | CP.PCM.PN ---
<Ko Rhodes - Last Filed: 12/04/18 11:31> Subjective - Date & Time of Evaluation Date of Evaluation: 12/04/18 Time of Evaluation: 08:00 - Subjective Subjective: PGY6 GI Fellow Progress Note Patient seen and examined bedside this morning. The patient tolerated push enteroscopy yesterday without issue. He is currently refusing lab work. No events overnight and no further episodes of melena/hematochezia. 12 system ROS performed and negative except where stated Objective - Vital Signs/Intake and Output Vital Signs (last 24 hours): Temp Pulse Resp BP Pulse Ox 98.3 F 86 27 H 114/57 L 100 12/04/18 04:00 12/04/18 07:20 12/04/18 07:20 12/04/18 07:00 12/04/18 07:20 Intake and Output: 12/04/18 12/04/18 06:59 18:59 Intake Total 800 Output Total 230 Balance 570 - Medications Medications: Current Medications Albuterol/Ipratropium (Duoneb 3 Mg/0.5 Mg (3 Ml) Ud) 3 ml IH [id number] PRN PRN Reason: Shortness of Breath Last Admin: 12/03/18 19:52 Dose: 3 ml Arformoterol Tartrate (Brovana) 15 mcg IH [id number] JUANITA Last Admin: 12/04/18 07:35 Dose: 15 mcg Budesonide (Pulmicort Respules) 0.5 mg IH [id number] JUANITA Last Admin: 12/04/18 07:35 Dose: 0.5 mg Ceftriaxone Sodium (Rocephin 1 Gram Ivpb) 1 gm in 100 mls @ 100 mls/hr IVPB DAILY JUANITA; Protocol Last Admin: 12/04/18 09:11 Dose: 100 mls/hr Pantoprazole Sodium (Protonix Inj) 40 mg IVP Q12 JUANITA Last Admin: 12/04/18 09:11 Dose: 40 mg Vitamin A (Vitamin A & D Oint Ud Foilpak) 1 ea TOP Q2 PRN PRN Reason: Dry mouth - Labs Labs: 12/03/18 05:01 12/03/18 05:01 PT 16.9 SECONDS (9.4-12.5) H 12/02/18 13:44 INR 1.50 04/30/19 13:44 APTT 34.4 Seconds (26.9-38.3) 12/02/18 13:44 - Constitutional Appears: Non-toxic, Confused, Chronically Ill - Eye Exam Additional comments: blind - ENT Exam ENT Exam: Mucous Membranes Moist Additional comments: decreased hearing acuity - Respiratory Exam Respiratory Exam: Clear to Ausculation Bilateral. absent: Rales, Rhonchi, Wheezes - Cardiovascular Exam Cardiovascular Exam: RRR, +S1, +S2 - GI/Abdominal Exam GI & Abdominal Exam: Distended, Firm, Tenderness, Normal Bowel Sounds. absent: Guarding, Rigid, Mass, Organomegaly - Extremities Exam Extremities Exam: Normal Inspection. absent: Pedal Edema - Neurological Exam Neurological Exam: Altered, Awake - Psychiatric Exam Psychiatric exam: Agitated, Anxious - Skin Skin Exam: Dry, Warm Assessment and Plan - Assessment and Plan (Free Text) Assessment: Patient is a 73yo male with PMHx significant for decompensated EtOH cirrhosis c/b ascites, hepatic encephalopathy and bleeding esophageal varices, rectal varices, diverticulosis, h/o HBV and HCV exposure, EtOH abuse, COPD and tobacco abuse, blindness and decreased hearing acuity who presented to the ED abdominal pain, hematemesis and melena -Acute blood loss anemia -Decompensated EtOH cirrhosis -Esophagitis -Esophageal varices -Hepatic encephalopathy -Hyperbilirubinemia Plan: -S/P endoscopic evaluation with recurrence of varices (not banded at time of exam or evidence of acute variceal bleeding), severe Grade D esophagitis and portal hypertensive gastropathy -PPI and octreotide gtt discontinued yesterday -Protonix 40mg IV BID, can transition to PO -Tense distended abdomen noted; U/S noted - encourage therapeutic paracentesis with cell count/culture -Avoid overtransfusion in cirrhotic patient with portal HTN - goal HGB 7-8 -Recurrence of varices possibly 2/2 nonadherence to therapy or progression of disease -Ongoing antibiotic coverage for prophylaxis - Ceftriaxone 1g IV QD x 7 days -Critical care and surgical suggestions noted - patient likely a poor candidate for TIPS given known, poorly controlled HE as well as nonadherence and poor candidacy for liver transplant -Encourage use of beta-jagdeep therapy, titrated to HR, for variceal bleeding prophylaxis -Add Lactulose/Rifaximin for HE <Deyanira Oropeza V - Last Filed: 12/05/18 00:55> Objective - Vital Signs/Intake and Output Vital Signs (last 24 hours): Temp Pulse Resp BP Pulse Ox 99 F 90 18 106/60 95 12/04/18 23:13 12/04/18 23:13 12/04/18 23:13 12/04/18 23:13 12/04/18 23:13 Intake and Output: 12/04/18 12/05/18 18:59 06:59 Intake Total 520 Output Total 125 200 Balance 395 -200 - Medications Medications: Current Medications Albuterol/Ipratropium (Duoneb 3 Mg/0.5 Mg (3 Ml) Ud) 3 ml IH [id number] PRN PRN Reason: Shortness of Breath Last Admin: 12/03/18 19:52 Dose: 3 ml Albuterol/Ipratropium (Duoneb 3 Mg/0.5 Mg (3 Ml) Ud) 3 ml IH [id number] JUANITA Last Admin: 12/04/18 19:32 Dose: 3 ml Arformoterol Tartrate (Brovana) 15 mcg IH [id number] JUANITA Last Admin: 12/04/18 19:31 Dose: 15 mcg Budesonide (Pulmicort Respules) 0.5 mg IH [id number] JUANITA Last Admin: 12/04/18 19:32 Dose: 0.5 mg Ceftriaxone Sodium (Rocephin 1 Gram Ivpb) 1 gm in 100 mls @ 100 mls/hr IVPB DAILY [facility]; Protocol Last Admin: 12/04/18 09:11 Dose: 100 mls/hr Lactulose (Enulose) 20 gm PO HS [facility] Last Admin: 12/04/18 22:58 Dose: Not Given Pantoprazole Sodium (Protonix Inj) 40 mg IVP Q12 JUANITA Last Admin: 12/04/18 22:58 Dose: Not Given Rifaximin (Xifaxan) 550 mg PO BID JUANITA; Protocol Last Admin: 12/04/18 20:45 Dose: Not Given Spironolactone (Aldactone) 25 mg PO BID [facility] Last Admin: 12/04/18 20:44 Dose: Not Given Vitamin A (Vitamin A & D Oint Ud Foilpak) 1 ea TOP Q2 PRN PRN Reason: Dry mouth - Labs Labs: 12/03/18 05:01 12/03/18 05:01 PT 16.9 SECONDS (9.4-12.5) H 12/02/18 13:44 INR 1.50 12/02/18 13:44 APTT 34.4 Seconds (26.9-38.3) 12/02/18 13:44 Attending/Attestation - Attestation I have personally seen and examined this patient.: Yes I have fully participated in the care of the patient.: Yes I have reviewed all pertinent clinical information, including history, physical exam and plan: Yes Notes (Text): Is an addendum to the GI progress report dictated by the fellow. The patient was seen and evaluated here earlier. Patient had an endoscopy done yesterday found to have a grade 1 varices and esophagitis extending up to upper third. The small bases did not exhibit any signs of recent bleeding. Patient did have significant portal gastropathy. Patient did have some coffee-ground vomitus that could be from the esophagitis rather than upper GI bleeding. Patient had a significant esophageal ulcerations in the past. History of rectal bleeding from varices in the rectum. I agree the best plan is to give PPI with close follow-up of the hemoglobin hematocrit Carafate Nonselective beta-blockers IR intervention for large-volume paracentesis Thank you Dr. Ponce for allowing us to participate in the care of the patient. We will continue to closely follow-up and suggest further recommendations based on the clinical course 12/05/18 00:50
--- NOTE | 2018-12-04 12:47 | PN ---
DATE: 12/04/2018 PULMONARY PROGRESS NOTE REFERRING PHYSICIAN: Evie Ponce MD SUBJECTIVE: The patient is seen lying in bed, in no acute distress. The patient is status post EGD with push enteroscopy, which was done yesterday. No headache, rhinitis, cough, shortness of breath, chest pain, abdominal pain, nausea, vomiting, diarrhea reported at this time. The patient refused lab work to be drawn this morning. OBJECTIVE: GENERAL: No acute distress. VITAL SIGNS: Blood pressure 114/57, pulse 96, oxygen saturation 100% on room air, temperature 98.3. HEENT: Moist mucous membranes. Small oral cavity. NECK: Supple. No JVD. LUNGS: Scattered rhonchi, bilaterally, few. CARDIOVASCULAR: S1, S2. ABDOMEN: Soft, distended, nontender. EXTREMITIES: No bilateral lower extremity edema. NEUROLOGIC: Awake, alert and verbal. Hard of hearing. MEDICATIONS: Reviewed. DuoNeb 3 mL inhalation every 6 hours p.r.n., Brovana 15 mcg inhalation every 12 hours, Pulmicort 0.5 mg inhalation every 12 hours, Rocephin 1 g daily, Protonix 40 mg IV push every 12 hours, vitamin A and D topically every 12 hours p.r.n. to affected area. LABORATORY DATA: Reviewed. No new labs today. IMPRESSION AND PLAN: Gastrointestinal bleed, anemia, chronic obstructive lung disease, status post blood transfusion, renal insufficiency, cirrhosis of the liver, history of alcohol abuse, history of hepatitis B, history of esophageal varices, gastric varices, ascites requiring multiple paracentesis in the past, hard of hearing. Esophagogastroduodenoscopy report showed esophagitis, portal gastropathy, non-bleeding grade 1 esophageal varices, gastritis. Pulmonary point of view, continue inhaled bronchodilators, continue sequential compression devices to bilateral lower extremities as the patient cannot be on chemical prophylaxis due to anemia, status post transfusion, gastrointestinal bleed. Continue gastric prophylaxis, continue Gastroenterology followup. We will order labs to be done in the morning. We will place the patient on spironolactone 25 mg twice a day for recurrent ascites. The patient was seen and examined with Dr. Atkins. Discussed assessment and plan as described above. The patient was seen and examined with Garry Gutierrez, nurse practitioner. Discussed assessment and plan as described above. Thank you for this consult. We will follow with you. Critical care time spent more than 35 minutes. Garry Gutierrez APN Theodore Atkins MD
[2018-12-04] MEDS ORDERED: Albuterol-Ipratrop 3 mg / 0.5 (3 ml) UD IH STA (13:47)
--- NOTE | 2018-12-04 13:55 | CP.PCM.PCO ---
Physician Communication Note - Physician Communication Note Physician Communication Note: s/p egd- esophagitis,Varices,wheezes audible,abdomen distend,duoneb ordered
[2018-12-04] MEDS: Albuterol-Ipratrop 3 mg / 0.5 (3 ml) UD IH SCH (19:32)
--- NOTE | 2018-12-05 00:20 | CP.PCM.PN ---
<Carlos Martinez - Last Filed: 12/05/18 00:20> Subjective - Date & Time of Evaluation Date of Evaluation: 12/05/18 Time of Evaluation: 00:19 - Subjective Subjective: Patient is constantly yelling and being verbally abusive to patient and staff. Patient is not in acute distress. VSS EKG reviewed, QTc: 433 - Patient moved to a room closer to nursing station for closer monitoring - Geodon 20mg IM once - Continue to monitor Carlos Martinez, PGY-1 Objective - Vital Signs/Intake and Output Vital Signs (last 24 hours): Temp Pulse Resp BP Pulse Ox 99 F 90 18 106/60 95 12/04/18 23:13 12/04/18 23:13 12/04/18 23:13 12/04/18 23:13 12/04/18 23:13 Intake and Output: 12/04/18 12/05/18 18:59 06:59 Intake Total 520 Output Total 125 200 Balance 395 -200 - Medications Medications: Current Medications Albuterol/Ipratropium (Duoneb 3 Mg/0.5 Mg (3 Ml) Ud) 3 ml IH [id number] PRN PRN Reason: Shortness of Breath Last Admin: 12/03/18 19:52 Dose: 3 ml Albuterol/Ipratropium (Duoneb 3 Mg/0.5 Mg (3 Ml) Ud) 3 ml IH [id number] [facility] Last Admin: 12/04/18 19:32 Dose: 3 ml Arformoterol Tartrate (Brovana) 15 mcg IH [id number] [facility] Last Admin: 12/04/18 19:31 Dose: 15 mcg Budesonide (Pulmicort Respules) 0.5 mg IH [id number] [facility] Last Admin: 12/04/18 19:32 Dose: 0.5 mg Ceftriaxone Sodium (Rocephin 1 Gram Ivpb) 1 gm in 100 mls @ 100 mls/hr IVPB DAILY [facility]; Protocol Last Admin: 12/04/18 09:11 Dose: 100 mls/hr Lactulose (Enulose) 20 gm PO HS [facility] Last Admin: 12/04/18 22:58 Dose: Not Given Pantoprazole Sodium (Protonix Inj) 40 mg IVP Q12 [facility] Last Admin: 12/04/18 22:58 Dose: Not Given Rifaximin (Xifaxan) 550 mg PO BID JUANITA; Protocol Last Admin: 12/04/18 20:45 Dose: Not Given Spironolactone (Aldactone) 25 mg PO BID [facility] Last Admin: 12/04/18 20:44 Dose: Not Given Vitamin A (Vitamin A & D Oint Ud Foilpak) 1 ea TOP Q2 PRN PRN Reason: Dry mouth - Labs Labs: 12/03/18 05:01 12/03/18 05:01 PT 16.9 SECONDS (9.4-12.5) H 12/02/18 13:44 INR 1.50 12/02/18 13:44 APTT 34.4 Seconds (26.9-38.3) 12/02/18 13:44 <Josy Neal - Last Filed: 12/06/18 06:26> Objective - Vital Signs/Intake and Output Vital Signs (last 24 hours): Temp Pulse Resp BP Pulse Ox 98 F 98 H 18 118/68 96 12/05/18 22:00 12/05/18 22:00 12/05/18 22:00 12/05/18 22:00 12/05/18 22:00 Intake and Output: 12/05/18 12/06/18 18:59 06:59 Intake Total 540 Output Total 300 Balance 240 - Medications Medications: Current Medications Albuterol/Ipratropium (Duoneb 3 Mg/0.5 Mg (3 Ml) Ud) 3 ml IH [id number] PRN PRN Reason: Shortness of Breath Last Admin: 12/03/18 19:52 Dose: 3 ml Arformoterol Tartrate (Brovana) 15 mcg IH [id number] [facility] Last Admin: 12/05/18 20:45 Dose: Not Given Budesonide (Pulmicort Respules) 0.5 mg IH [id number] [facility] Last Admin: 12/05/18 20:45 Dose: Not Given Lactulose (Enulose) 20 gm PO HS [facility] Last Admin: 12/05/18 21:05 Dose: Not Given Lorazepam (Ativan) 0.5 mg IVP TID PRN; Protocol PRN Reason: Agitation Pantoprazole Sodium (Protonix Inj) 40 mg IVP Q12 [facility] Last Admin: 12/05/18 21:05 Dose: Not Given Rifaximin (Xifaxan) 550 mg PO BID JUANITA; Protocol Last Admin: 12/05/18 19:22 Dose: Not Given Vitamin A (Vitamin A & D Oint Ud Foilpak) 1 ea TOP Q2 PRN PRN Reason: Dry mouth - Labs Labs: 12/03/18 05:01 12/03/18 05:01 PT 16.9 SECONDS (9.4-12.5) H 12/02/18 13:44 INR 1.50 12/02/18 13:44 APTT 34.4 Seconds (26.9-38.3) 12/02/18 13:44 Attending/Attestation - Attestation I have personally seen and examined this patient.: No I have fully participated in the care of the patient.: No I have reviewed all pertinent clinical information, including history, physical exam and plan: No
[2018-12-05] MEDS: Albuterol-Ipratrop 3 mg / 0.5 (3 ml) UD IH SCH ×2 (01:41→07:17)
[2018-12-05] MEDS: Arformoterol 15 mcg/2 ml Inh Sol IH SCH ×2 (07:16→20:45)
[2018-12-05] MEDS: Budesonide 0.5 mg/2 ml Inhal Susp UD IH SCH ×2 (07:17→20:45)
--- NOTE | 2018-12-05 08:37 | CP.PCM.PN ---
<Ko Rhodes - Last Filed: 12/05/18 15:39> Subjective - Date & Time of Evaluation Date of Evaluation: 12/05/18 Time of Evaluation: 08:00 - Subjective Subjective: PGY6 GI Fellow Progress Note Patient seen and examined bedside this morning. Overnight patient screaming and abusive with staff, demanding nursing staff at bedside and then having no requests for them. Medicated for anxiety/confusion overnight. Continues to admit to abdominal discomfort. He refused blood work and medications yesterday, highlighting his noncompliance. 12 system ROS limited as patient uncooperative but negative except where otherwise stated. Objective - Vital Signs/Intake and Output Vital Signs (last 24 hours): Temp Pulse Resp BP Pulse Ox 97.3 F L 92 H 18 121/61 95 12/05/18 06:00 12/05/18 06:00 12/05/18 06:00 12/05/18 06:00 12/05/18 06:00 Intake and Output: 12/05/18 12/05/18 06:59 18:59 Intake Total 120 Output Total 300 Balance -180 - Medications Medications: Current Medications Albuterol/Ipratropium (Duoneb 3 Mg/0.5 Mg (3 Ml) Ud) 3 ml IH [id number] PRN PRN Reason: Shortness of Breath Last Admin: 12/03/18 19:52 Dose: 3 ml Albuterol/Ipratropium (Duoneb 3 Mg/0.5 Mg (3 Ml) Ud) 3 ml IH [id number] [facility] Last Admin: 12/05/18 07:17 Dose: 3 ml Arformoterol Tartrate (Brovana) 15 mcg IH [id number] [facility] Last Admin: 12/05/18 07:16 Dose: 15 mcg Budesonide (Pulmicort Respules) 0.5 mg IH [id number] [facility] Last Admin: 12/05/18 07:17 Dose: 0.5 mg Ceftriaxone Sodium (Rocephin 1 Gram Ivpb) 1 gm in 100 mls @ 100 mls/hr IVPB DAILY [facility]; Protocol Last Admin: 12/04/18 09:11 Dose: 100 mls/hr Lactulose (Enulose) 20 gm PO HS [facility] Last Admin: 12/04/18 22:58 Dose: Not Given Pantoprazole Sodium (Protonix Inj) 40 mg IVP Q12 [facility] Last Admin: 12/04/18 22:58 Dose: Not Given Rifaximin (Xifaxan) 550 mg PO BID [facility]; Protocol Last Admin: 12/04/18 20:45 Dose: Not Given Spironolactone (Aldactone) 25 mg PO BID [facility] Last Admin: 12/04/18 20:44 Dose: Not Given Vitamin A (Vitamin A & D Oint Ud Foilpak) 1 ea TOP Q2 PRN PRN Reason: Dry mouth - Labs Labs: 12/03/18 05:01 12/03/18 05:01 PT 16.9 SECONDS (9.4-12.5) H 12/02/18 13:44 INR 1.50 12/02/18 13:44 APTT 34.4 Seconds (26.9-38.3) 12/02/18 13:44 - Constitutional Appears: No Acute Distress, Chronically Ill - Eye Exam Additional comments: blind - ENT Exam ENT Exam: Mucous Membranes Moist Additional comments: decreased hearing acuity - Respiratory Exam Respiratory Exam: Rales. absent: Clear to Ausculation Bilateral, Rhonchi, Wheezes - Cardiovascular Exam Cardiovascular Exam: RRR, +S1, +S2 - GI/Abdominal Exam GI & Abdominal Exam: Distended, Firm, Soft, Tenderness (diffusely), Normal Bowel Sounds. absent: Guarding, Rigid, Organomegaly - Extremities Exam Extremities Exam: Normal Inspection. absent: Pedal Edema - Neurological Exam Neurological Exam: Altered, Awake - Psychiatric Exam Psychiatric exam: Anxious - Skin Skin Exam: Dry, Warm Assessment and Plan - Assessment and Plan (Free Text) Assessment: Patient is a 73yo male with PMHx significant for decompensated EtOH cirrhosis c/b ascites, hepatic encephalopathy and bleeding esophageal varices, rectal varices, diverticulosis, h/o HBV and HCV exposure, EtOH abuse, COPD and tobacco abuse, blindness and decreased hearing acuity who presented to the ED abdominal pain, hematemesis and melena -Acute blood loss anemia -Decompensated EtOH cirrhosis -Esophagitis -Esophageal varices -Hepatic encephalopathy -Hyperbilirubinemia -Medical nonadherence Plan: -The patient has been refusing vitals, lab work and medication which highlights the issues in his care - nonadherence has been a problem in the past, likely a cause for his recurrent issues such as recurrent varices, GI bleeding and worsening ascites -Encourage adherence to medical therapy and explained importance -Protonix 40mg IV BID, can transition to PO as patient tolerates -Recommend paracentesis with cell count/culture ordered -Pt was initiated on Aldactone 25mg BID but refused therapy - the minimum dose should ideally be 100mg PO QD if tolerated, monitor kidney function - as patient is refusing lab work, would consider discontinuation of this for now -Beta-jagdeep therapy for varices titrated to heart rate once paracentesis performed - BB can exacerbate ascites and thus would express caution initiating at this time -Ongoing antibiotic coverage for prophylaxis - Ceftriaxone 1g IV QD x 7 days -Critical care and surgical suggestions noted - patient likely a poor candidate for TIPS given known, poorly controlled HE as well as nonadherence and poor candidacy for liver transplant -Added Lactulose/Rifaximin for HE yesterday but patient refused therapy -Discussions with family are encouraged; if patient refusing all interventions, recommend consideration for palliative consultation <Deyanira Oropeza V - Last Filed: 12/05/18 22:47> Objective - Vital Signs/Intake and Output Vital Signs (last 24 hours): Temp Pulse Resp BP Pulse Ox 98.7 F 108 H 18 115/65 95 12/05/18 14:00 12/05/18 14:00 12/05/18 14:00 12/05/18 14:00 12/05/18 14:00 Intake and Output: 12/05/18 12/06/18 18:59 06:59 Intake Total 240 Output Total 200 Balance 40 - Medications Medications: Current Medications Albuterol/Ipratropium (Duoneb 3 Mg/0.5 Mg (3 Ml) Ud) 3 ml IH [id number] PRN PRN Reason: Shortness of Breath Last Admin: 12/03/18 19:52 Dose: 3 ml Arformoterol Tartrate (Brovana) 15 mcg IH [id number] [facility] Last Admin: 12/05/18 20:45 Dose: Not Given Budesonide (Pulmicort Respules) 0.5 mg IH [id number] [facility] Last Admin: 12/05/18 20:45 Dose: Not Given Lactulose (Enulose) 20 gm PO HS [facility] Last Admin: 12/05/18 21:05 Dose: Not Given Lorazepam (Ativan) 0.5 mg IVP TID PRN; Protocol PRN Reason: Agitation Pantoprazole Sodium (Protonix Inj) 40 mg IVP Q12 [facility] Last Admin: 12/05/18 21:05 Dose: Not Given Rifaximin (Xifaxan) 550 mg PO BID [facility]; Protocol Last Admin: 12/05/18 19:22 Dose: Not Given Vitamin A (Vitamin A & D Oint Ud Foilpak) 1 ea TOP Q2 PRN PRN Reason: Dry mouth - Labs Labs: 12/03/18 05:01 12/03/18 05:01 PT 16.9 SECONDS (9.4-12.5) H 12/02/18 13:44 INR 1.50 12/02/18 13:44 APTT 34.4 Seconds (26.9-38.3) 12/02/18 13:44 Attending/Attestation - Attestation I have personally seen and examined this patient.: Yes I have fully participated in the care of the patient.: Yes I have reviewed all pertinent clinical information, including history, physical exam and plan: Yes Notes (Text): This patient was seen and evaluated here earlier. Is an addendum to the GI progress note dictated by the fellow. Patient is extremely noncompliant. This is a medication and test. Status post EGD yesterday esophageal ulcerations, grade 1 esophageal varices .portal gastropathy. Currently requested interventional radiologist for paracentesis Continue PPI 12/05/18 22:45
--- NOTE | 2018-12-05 08:40 | PN ---
DATE: 12/04/2018 SUBJECTIVE: The patient is a 73-year-old male. The patient is seen and examined at the bedside on 12/04/2018 and looking comfortable. No fever. No chills. No hematuria or hematochezia. No headache or dizziness. No chest pain or palpitation. Looks little bit better. The patient is status post EGD with push enteroscopy, which was done yesterday. No rhinitis. No nausea or vomiting. PHYSICAL EXAMINATION: VITAL SIGNS: Blood pressure 114/57, pulse 93, oxygen saturation 100%, and temperature 98.4. HEENT: Head; normocephalic and atraumatic. Eyes; PERRLA. Extraocular muscles intact. Conjunctivae clear. Nose patent. NECK: Supple. No carotid bruit. No JVD. No thyromegaly. CHEST: Bilaterally symmetrical. HEART: S1 and S2 positive. LUNGS: Clear to auscultation. ABDOMEN: Soft. Bowel sounds present. No organomegaly. EXTREMITIES: No edema. No cyanosis. NEUROLOGIC: The patient is awake and alert. Follows simple commands. MEDICATIONS: DuoNeb, Brovana, Pulmicort, Rocephin, and Protonix. LABORATORY DATA: We do not have recent labs today because the patient refused. Urged to get labs especially we have to follow H and H. ASSESSMENT AND PLAN: Mr. Jacob Carrion is a 73-year-old male with gastrointestinal bleeding, anemia, chronic obstructive lung disease, cirrhosis of the liver, status post gastrointestinal bleeding, anemia, status post blood transfusion, renal insufficiency, history of ethanol abuse, hepatitis B, history of esophageal varices, gastric varices, ascites requiring multiple times paracentesis, history of hernia surgery, legally blind, hard of hearing, went for esophagogastroduodenoscopy , showed esophagitis, portal gastropathy, nonbleeding grade 1 esophageal varices, and gastritis. Continue bronchodilators, gastrointestinal and deep venous thrombosis prophylaxes. The patient is still in the unit, urged to get labs, and review Garry Gutierrez's notes. Repeat labs. We will follow up. Evie Ponce MD [facility] # [phone] JULIET
--- NOTE | 2018-12-05 12:29 | PN ---
DATE: 12/05/2018 PULMONARY PROGRESS NOTE REFERRING PHYSICIAN: Dr. Evie Ponce. SUBJECTIVE: The patient is seen lying in bed. No acute distress. Nursing staff reports that the patient was agitated last night, yelling and continuously screaming. The patient was given Geodon IM. This morning, the patient refused lab work to be drawn. The patient at this time denying any cough, shortness of breath, chest pain, nausea, vomiting, diarrhea, leg pain. Reports having some abdominal discomfort. OBJECTIVE: GENERAL: No acute distress. VITAL SIGNS: Blood pressure 121/61, pulse 92, temperature 97.3, oxygen saturation 95% on room air. HEENT: Moist mucous membranes. Small oral cavity. NECK: Supple. No JVD. LUNGS: Few scattered rhonchi. Mild wheezing bilaterally. CARDIOVASCULAR: S1 and S2. ABDOMEN: Distended, nontender. EXTREMITIES: No bilateral lower extremity edema. NEUROLOGIC: Awake, alert, verbal. Hard of hearing. MEDICATIONS: Reviewed. DuoNeb 3 mL inhalation every 6 hours p.r.n., DuoNeb 3 mL inhalation every 6 hours, Brovana 15 mcg inhalation every 12 hours, Pulmicort 0.5 mg inhalation every 12 hours, Rocephin 1 g daily, Lactulose 20 g h.s., Protonix 40 mg IV push every 12 hours, Xifaxan 550 twice a day, spironolactone 25 twice a day, vitamin A and D topically every 2 hours p.r.n. LABORATORY DATA: No new labs. IMPRESSION AND PLAN: Gastrointestinal bleed, anemia, chronic obstructive lung disease status post blood transfusion, renal insufficiency, decompensated alcoholic cirrhosis, history of alcohol abuse, history of hepatitis B, esophageal varices, gastric varices, ascites requiring multiple paracentesis in the past, hard of hearing, esophagitis, gastritis. Gastroenterology notes appreciated. We will discontinue Aldactone at this time as the patient is refusing lab work to be done and refusing medication. We will need to monitor the patient closely for fluid retention. May restart in the future if the patient allows blood work to be drawn and starts taking medication again. Gastroenterology recommending paracentesis with cell count cultures. Pulmonary point of view, continue inhaled bronchodilators. Continue sequential compression devices to bilateral lower extremities as the patient cannot be on chemical prophylaxis due to anemia status post blood transfusion, gastrointestinal bleed. Continue gastric prophylaxis. Gastroenterology followup. Head of bed elevated 45 degrees, aspiration precaution. Recommend physical therapy. We will discontinue routine DuoNeb as the patient is already on Brovana and Pulmicort and on DuoNeb as needed. The patient was seen and examined with Dr. Atkins. Discussed assessment and plan as described above. The patient was seen and examined by Garry Gutierrez, nurse practitioner. Discussed assessment and plan as described above. Thank you for this consult. We will follow with you. Garry Gutierrez APN Theodore Atkins MD
[2018-12-05] MEDS: cefTRIAXone 1 gm 1 GM/100 ML BAG IVPB SCH (12:55)
--- NOTE | 2018-12-05 15:18 | PN ---
This case was discussed with Dr. Ponce and she is inagreement with treatment plan. DATE: 12/05/2018 SUBJECTIVE: The patient is admitted with GI bleed, hemoptysis, cirrhosis, hepatitis B, hypertension, anemia. The patient has a past medical history of alcohol abuse, hypertension,chronic anemia, Lee's esophagus, duodenal disease, gastroesophageal reflux disease. Saw patient today he was agitated, refusing meds, refusing food, refusing help from the aide, refusing exam. REVIEW OF SYSTEMS: Was difficult to obtain, but the patient did not appear to be in any acute distress The patient does look cachectic, confused and agitated. PHYSICAL EXAMINATION: VITAL SIGNS: Temperature 97.3, pulse rate 92, blood pressure 121/61, respiratory rate 18, sating at 95% on room air. HEENT: Normocephalic, atraumatic. PERRLA. Mucous membranes dry. NECK: Supple. Normal inspection. CARDIOVASCULAR: S1, S2. No JVD. ABDOMEN: Soft. No organomegaly. SKIN: Intact. EXTREMITIES: No edema. NEUROLOGIC: The patient is alert, disoriented, agitated, some cognitive deficits. MEDICATIONS: DuoNeb, Brovana, Pulmicort, Rocephin 1 g, lactulose daily at HS vitamin A, Protonix. LABORATORY DATA: White blood cells 8.8, hemoglobin 9.9, hematocrit 30.5, platelet count 129. Sodium 142, potassium 4, BUN 32, creatinine 0.5, GFR over 60. The patient is negative for MRSA. Refused repeat Ammonia level. ASSESSMENT AND PLAN: This 73-year-old male came in with hemoptysis and hematochezia, anemia, cirrhosis of liver, hepatitis B and C, elevated ammonia level, confusion, and agitation. At this time, the patient refused laboratory, ammonia level was ordered to repeat. The patient refusing medications, he is very agitated. Psychiatric consultation was ordered The patient had one dose of Geodon, which according to the nurse seemed to be effective last night, on 12/04/2018. We will follow up the patient. ALL ABOVE NOTED , EDUCATION DONE , ALL LAB , MEDS AND CONSULTANTS NOTED AGREED WITH MAID SUPERVISOR NOTES , CONT. PRESENT TREATMENT , WILL F/U Femi Moffett APN Evie Ponce MD [facility] # [id number] JULIET
--- NOTE | 2018-12-05 15:39 | CP.PCM.PCO ---
Additional Comments - Additional Comments Additional Comments: Pt. seen agitated- nurse reports refuses medications. Abdomen distended- Paracentesis pending, pending consent, remains on liquid diet, however if patient refuses further testing, would consider advance to full/soft, as per GI. no further vomiting, no further bloody stools. will continue to monitor clinical status and follow.
--- NOTE | 2018-12-05 15:49 | CP.PCM.PCO ---
Physician Communication Note - Physician Communication Note Physician Communication Note: DC today
--- NOTE | 2018-12-05 17:41 | US ---
PROCEDURE: Ultrasound guided paracentesis. HISTORY: Alcoholic cirrhosis Recurrent ascites with abdominal pain and distension. PHYSICIAN(S): Juan Miguel Scott MD. TECHNIQUE: The relative risks and indications for the procedure were explained to the patient and informed written consent obtained. Sonography of the abdomen was performed in a supine position. This revealed a moderate amount of non-loculated ascites, greatest in the right lower quadrant. A puncture site was selected and the area was prepped and draped in the usual sterile fashion. 1% Xylocaine was used to anesthetize the skin and soft tissues. A 7 Ivorian paracentesis catheter was trocared into the right lower quadrantand 100 cc of clear straw aspirated. The appropriate labs were sent. IMPRESSION: Ultrasound-guided paracentesis in the right lower quadrant. 2500 cc of clear straw-colored fluid was aspirated. The appropriate labs were sent
[2018-12-05 20:42] LABS: BODY FLUID TYPE PERITONEAL/ASCITES
[2018-12-05 21:07] LABS: BF GROSS APPEARANCE CLEAR (CLEAR)
[2018-12-05 21:08] LABS: BODY FLUID TOTAL COUNT 100 (0-0)
--- NOTE | 2018-12-05 21:59 | CON ---
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 The patient has multiple medical issues including alcohol cirrhosis, hepatic encephalopathy, esophageal bleeding, esophageal varices, rectal varices, diverticulosis, hepatitis C virus exposure, alcohol abuse and feels dizzy. The patient also is blind and has hearing deficiency. The patient was admitted on the medical site for evaluation of blood loss anemia, vomiting blood for past 2 days prior to coming to the hospital. Psychiatry consult was called for evaluation of agitation and possible medication management. The patient was seen and examined. Discussed with nursing staff. The patient presented to be sleepy. The patient is resting covering his head with the blanket, easily arousable. The patient seems to be poor and unreliable historian, talking something about his family and very hard to interview. The patient has repetition of his words, "nurse, nurse, nurse, Dr. Ponce, Dr. Ponce, Dr. Ponce," the patient was not able to participate in the interview. Based on collateral information from the nursing staff, the patient has refusing to take some medications. At times restless, but no physical aggression. The patient at times is very confused and screaming inappropriately. We tried to review previous history. The patient is never being evaluated by psychiatrist before. PHYSICAL EXAMINATION: VITAL SIGNS: Reviewed. Temperature 97.3, pulse is 92, blood pressure 121/61, respirations 18 and oxygen saturation 95%. MEDICATIONS: Reviewed. The patient is on DuoNeb, Brovana, Pulmicort, Rocephin, and Enulose. Ativan will be started as needed for agitation IV push 0.5 mg three times a day liver cirrhosis because it will pass by the liver, Protonix, rifaximin and vitamin A. LABORATORY DATA: Reviewed. Hemoglobin and hematocrit was 6.4 and 20.0 respectively, white blood cells 11.5 at the time of admission right now it is 8.8. Microbiology reviewed. MENTAL STATUS EXAMINATION: The patient presented to be alert. The patient is oriented, talking nonsense, very hard to interview. The patient is disorganized. Insight and judgment impaired. Impulses are unpredictable. 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 Please see medical team notes for more detailed information. PLAN: Ativan might be helpful for the patient for the periods of agitation and restless behaviors as well as anxiety, besides that family should be involved. Advanced directives needs to be discussed with the patient's family. We will follow up and advise accordingly. Thank you very much for letting me participate in the care of your patient. Clarissa Law MD
[2018-12-06] MEDS: Arformoterol 15 mcg/2 ml Inh Sol IH SCH ×2 (07:37→20:52)
[2018-12-06] MEDS: Budesonide 0.5 mg/2 ml Inhal Susp UD IH SCH ×2 (07:37→20:52)
--- NOTE | 2018-12-06 10:56 | PN ---
DATE: 12/06/2018 PULMONARY PROGRESS NOTE REFERRING PHYSICIAN: Evie Ponce MD SUBJECTIVE: The patient is seen lying in bed. No acute distress. The patient is status post paracentesis where 2500 mL was aspirated. No headache, rhinitis, cough, shortness of breath, chest pain, abdominal pain, nausea, vomiting, diarrhea, leg pain, or leg swelling reported. The patient has refused medication and lab work per nursing staff. OBJECTIVE: GENERAL: No acute distress. VITAL SIGNS: Blood pressure 118/68, pulse 98, temperature 98, oxygen saturation 96 on room air. HEENT: Moist mucous membrane. Small oral cavity. NECK: Supple. No JVD. LUNGS: Few scattered rhonchi bilaterally. CARDIOVASCULAR: S1, S2. ABDOMEN: Soft and nontender. EXTREMITIES: No bilateral lower extremity edema. NEUROLOGIC: Awake, alert, verbal. Hard of hearing. MEDICATIONS: Reviewed. DuoNeb 3 mL inhalation every 6 hours p.r.n., Brovana 15 mcg every 12 hours, Pulmicort 0.5 mg inhalation every 12 hours, Lactulose 20 g at bedtime, Ativan 0.5 mg IV push three times a day p.r.n., Protonix 40 mg IV push every 12 hours, Xifaxan 550 mg twice a day, Vitamin A and D topically every 2 hours p.r.n. LABORATORY DATA: Reviewed. Fluid aspirated from peritoneal cavity shows fluid RBC 72, fluid total cell count 100, fluid mononuclear cells 82.5, fluid polymorphonuclear cells 17.5. IMPRESSION AND PLAN: Gastrointestinal bleed, anemia, chronic obstructive lung disease, status post blood transfusion, renal insufficiency, decompensated alcoholic cirrhosis, history of alcohol abuse, history of hepatitis B, esophageal varices, gastric varices, ascites, status post paracentesis, hard of hearing, esophagitis, gastritis. Continue Gastroenterology followup. Continue inhaled bronchodilators. Continue sequential compression devices to bilateral lower extremities, the patient cannot be on chemical prophylaxis due to anemia, status post blood transfusion, gastrointestinal bleed. Continue gastric prophylaxis, aspiration precaution, head of bed elevated to 45 degrees. Spoke with nursing staff to have patient be assisted with meal. Recommend physical therapy. The patient was seen by Psychiatry. Ativan p.r.n. ordered. Fall precautions. The patient was seen and examined with Dr. Atkins. Discussed assessment and plan as described above. The patient was seen and examined with Garry Gutierrez, nurse practitioner. Discussed assessment and plan as described above. Thank you for this consult. We will follow with you. Garry Gutierrez APN Theodore Atkins MD J[facility]ET
--- NOTE | 2018-12-06 11:48 | CP.PCM.PN ---
<Heather Pettit - Last Filed: 12/06/18 11:49> Subjective - Date & Time of Evaluation Date of Evaluation: 12/06/18 Time of Evaluation: 07:00 - Subjective Subjective: PGY5 GI Fellow Progress Note Patient seen and examined bedside this morning, this patient screaming at staff, Continues to admit to abdominal discomfort. He refused blood work and medications yesterday, highlighting his noncompliance. Tolerated paracentesis. 12 system ROS limited as patient uncooperative but negative except where otherwise stated. Objective - Vital Signs/Intake and Output Vital Signs (last 24 hours): Temp Pulse Resp BP Pulse Ox 98.6 F 95 H 18 101/44 L 95 12/06/18 06:00 12/06/18 06:00 12/06/18 06:00 12/06/18 06:00 12/06/18 06:00 Intake and Output: 12/06/18 12/06/18 06:59 18:59 Intake Total 540 Output Total 300 Balance 240 - Medications Medications: Current Medications Albuterol/Ipratropium (Duoneb 3 Mg/0.5 Mg (3 Ml) Ud) 3 ml IH [id number] PRN PRN Reason: Shortness of Breath Last Admin: 12/03/18 19:52 Dose: 3 ml Arformoterol Tartrate (Brovana) 15 mcg IH [id number] [facility] Last Admin: 12/06/18 07:37 Dose: Not Given Budesonide (Pulmicort Respules) 0.5 mg IH [id number] [facility] Last Admin: 12/06/18 07:37 Dose: Not Given Lactulose (Enulose) 20 gm PO HS [facility] Last Admin: 12/05/18 21:05 Dose: Not Given Lorazepam (Ativan) 0.5 mg IVP TID PRN; Protocol PRN Reason: Agitation Pantoprazole Sodium (Protonix Inj) 40 mg IVP Q12 [facility] Last Admin: 12/06/18 09:11 Dose: 40 mg Rifaximin (Xifaxan) 550 mg PO BID [facility]; Protocol Last Admin: 12/06/18 09:11 Dose: 550 mg Vitamin A (Vitamin A & D Oint Ud Foilpak) 1 ea TOP Q2 PRN PRN Reason: Dry mouth - Labs Labs: 12/03/18 05:01 12/03/18 05:01 PT 16.9 SECONDS (9.4-12.5) H 12/02/18 13:44 INR 1.50 12/02/18 13:44 APTT 34.4 Seconds (26.9-38.3) 12/02/18 13:44 - Constitutional Appears: Older Than Stated Age, Agitated, Confused, Chronically Ill - Head Exam Head Exam: ATRAUMATIC, NORMAL INSPECTION, NORMOCEPHALIC - ENT Exam ENT Exam: Mucous Membranes Dry - Neck Exam Neck Exam: Full ROM - Respiratory Exam Respiratory Exam: Decreased Breath Sounds - Cardiovascular Exam Cardiovascular Exam: REGULAR RHYTHM, RRR, +S1 - GI/Abdominal Exam GI & Abdominal Exam: Soft, Normal Bowel Sounds. absent: Distended, Guarding, Tenderness, Organomegaly - Rectal Exam Rectal Exam: Deferred - Neurological Exam Neurological Exam: Alert, Awake - Psychiatric Exam Psychiatric exam: Agitated, Anxious - Skin Skin Exam: Dry, Intact, Normal Color, Warm Assessment and Plan - Assessment and Plan (Free Text) Assessment: Patient is a 73yo male with PMHx significant for decompensated EtOH cirrhosis c/b ascites, hepatic encephalopathy and bleeding esophageal varices, rectal varices, diverticulosis, h/o HBV and HCV exposure, EtOH abuse, COPD and tobacco abuse, blindness and decreased hearing acuity who presented to the ED abdominal pain, hematemesis and melena -Anemia -Decompensated EtOH cirrhosis -Esophagitis -Esophageal varices -Hepatic encephalopathy -Hyperbilirubinemia -Ascites -Medical nonadherence Plan: -The patient has been refusing vitals, lab work and medications -s/p EGD with esophagitis and grade 1 varices -Beta-jagdeep therapy for varices titrated to heart rate -Protonix 40mg IV BID, can transition to PO as patient tolerates -s/p paracentesis 2.5L removed, with cell count/culture negative for SBP -Ongoing antibiotic coverage for prophylaxis -Ceftriaxone 1g IV QD x 7 days -Recommend lasix 40 and aldactoen 100mg, monitor kidney function -Patient likely a poor candidate for TIPS given known, poorly controlled HE as well as nonadherence and poor candidacy for liver transplant -Lactulose/Rifaximin for HE -Please call with any questions or concerns <Deyanira Oropeza V - Last Filed: 12/06/18 21:46> Objective - Vital Signs/Intake and Output Vital Signs (last 24 hours): Temp Pulse Resp BP Pulse Ox 98.1 F 60 18 104/63 98 12/06/18 21:42 12/06/18 21:42 12/06/18 21:42 12/06/18 21:42 12/06/18 21:42 Intake and Output: 12/06/18 12/07/18 18:59 06:59 Intake Total 240 240 Output Total 200 Balance 40 240 - Medications Medications: Current Medications Albuterol/Ipratropium (Duoneb 3 Mg/0.5 Mg (3 Ml) Ud) 3 ml IH [id number] PRN PRN Reason: Shortness of Breath Last Admin: 12/03/18 19:52 Dose: 3 ml Arformoterol Tartrate (Brovana) 15 mcg IH [id number] [facility] Last Admin: 12/06/18 20:52 Dose: Not Given Budesonide (Pulmicort Respules) 0.5 mg IH [id number] [facility] Last Admin: 12/06/18 20:52 Dose: Not Given Lactulose (Enulose) 20 gm PO HS [facility] Last Admin: 12/05/18 21:05 Dose: Not Given Lorazepam (Ativan) 0.5 mg IVP TID PRN; Protocol PRN Reason: Agitation Pantoprazole Sodium (Protonix Inj) 40 mg IVP Q12 [facility] Last Admin: 12/06/18 09:11 Dose: 40 mg Rifaximin (Xifaxan) 550 mg PO BID JUANITA; Protocol Last Admin: 12/06/18 17:19 Dose: 550 mg Tamsulosin HCl (Flomax) 0.4 mg PO DAILY [facility] Last Admin: 12/06/18 17:19 Dose: 0.4 mg Vitamin A (Vitamin A & D Oint Ud Foilpak) 1 ea TOP Q2 PRN PRN Reason: Dry mouth - Labs Labs: 12/03/18 05:01 12/03/18 05:01 PT 16.9 SECONDS (9.4-12.5) H 12/02/18 13:44 INR 1.50 12/02/18 13:44 APTT 34.4 Seconds (26.9-38.3) 12/02/18 13:44 Attending/Attestation - Attestation I have personally seen and examined this patient.: Yes I have fully participated in the care of the patient.: Yes I have reviewed all pertinent clinical information, including history, physical exam and plan: Yes Notes (Text): This is an addendum to the GI progress report dictated by the fellow. The patient was seen and evaluated along with the GI fellow earlier. Patient is adamant to have solid food. He was shouting and yelling. He is edentulous but he states that he can eat anything. No further episodes of bleeding per rectum or melena or coffee-ground vomitus. Status post paracentesis. Status post EGD. Patient has a grade 1 esophagitis esophageal varices and also portal gastropathy. Patient is on high-dose PPI. It is reasonable to start the patient mechanical soft diet with close monitoring of the hemoglobin. Patient is extremely noncompliant. Refused a bowel preparation for colonoscopy on multiple occasions. Overall prognosis for this patient is guarded. 12/06/18 21:44
--- NOTE | 2018-12-07 07:45 | PN ---
DATE: 12/07/2018 REFERRING PHYSICIAN: Evie Ponce MD SUBJECTIVE: The patient is seen lying in bed. No acute distress. Nursing staff reports that last night the patient was agitated and was prescribed Ativan. This morning, no agitation noted. No headache, rhinitis, cough, shortness of breath, chest pain, abdominal pain, nausea, vomiting, diarrhea, leg pain or leg swelling reported. OBJECTIVE: VITAL SIGNS: Blood pressure 104/63, pulse 60, temperature 98.1, oxygen saturation 98% on room air. GENERAL: No acute distress. HEENT: Moist mucous membrane. Crowded airway. NECK: Supple. No JVD. RESPIRATORY: Few scattered rhonchi bilaterally. CARDIOVASCULAR: S1, S2. ABDOMEN: Soft and nontender. EXTREMITIES: No bilateral lower extremity edema. NEUROLOGIC: Awake, alert, verbal. Following commands. MEDICATIONS: Reviewed. DuoNeb 3 mL inhalation every 6 hours p.r.n., Brovana 15 mcg every 12 hours, Pulmicort 0.5 mg every 12 hours, lactulose 20 g at bedtime, Ativan 0.5 mg IV push three times a day, Protonix 40 mg IV push every 12 hours, Seroquel 12.5 mg at bedtime, rifaximin 550 mg twice a day, Flomax 0.4 mg daily, vitamin A and D topically every 2 hours p.r.n. LABORATORY DATA: Reviewed. No new labs. IMPRESSION AND PLAN: Gastrointestinal bleed, anemia, chronic obstructive lung disease, status post blood transfusion, renal insufficiency, decompensated alcoholic cirrhosis, history of hepatitis B, history of alcohol abuse, esophageal varices, gastric varices, ascites, status post paracentesis, esophagitis, gastritis, hard of hearing. Gastroenterology notes appreciated. Continue inhaled bronchodilators. Continue sequential compression devices to bilateral lower extremities. The patient cannot be on chemical prophylaxis due to anemia, status post blood transfusion, continue gastric prophylaxis, aspiration precaution, head of bed elevated to 45 degrees. We will start the patient on Aldactone 25 mg daily, Lasix 20 mg daily. We will order labs to be drawn in the morning. Fall precautions. The patient was seen and examined with Dr. Atkins. Discussed assessment and plan as described above. The patient was seen and examined with Garry Gutierrez, nurse practitioner. Discussed assessment and plan as described above. Thank you for this consult. We will follow with you. Garry Gutierrez APN Theodore Atkins MD
[2018-12-07] MEDS: Budesonide 0.5 mg/2 ml Inhal Susp UD IH SCH ×2 (08:19→19:45)
[2018-12-07] MEDS: Arformoterol 15 mcg/2 ml Inh Sol IH SCH ×2 (08:19→19:45)
--- NOTE | 2018-12-07 19:04 | CP.PCM.PN ---
Subjective - Date & Time of Evaluation Date of Evaluation: 12/07/18 Time of Evaluation: 14:30 - Subjective Subjective: Tolerating diet. No vomiting. No melena no bleeding per rectum no Objective - Vital Signs/Intake and Output Vital Signs (last 24 hours): Temp Pulse Resp BP Pulse Ox 97.8 F 101 H 20 110/60 92 L 12/07/18 14:00 12/07/18 14:00 12/07/18 14:00 12/07/18 17:42 12/07/18 14:00 Intake and Output: 12/07/18 12/07/18 06:59 18:59 Intake Total 360 1380 Output Total 150 Balance 360 1230 - Medications Medications: Current Medications Albuterol/Ipratropium (Duoneb 3 Mg/0.5 Mg (3 Ml) Ud) 3 ml IH [id number] PRN PRN Reason: Shortness of Breath Last Admin: 12/03/18 19:52 Dose: 3 ml Arformoterol Tartrate (Brovana) 15 mcg IH [id number] [facility] Last Admin: 12/07/18 08:19 Dose: 15 mcg Budesonide (Pulmicort Respules) 0.5 mg IH [id number] [facility] Last Admin: 12/07/18 08:19 Dose: 0.5 mg Furosemide (Lasix) 20 mg PO DAILY [facility] Last Admin: 12/07/18 17:42 Dose: 20 mg Lactulose (Enulose) 20 gm PO HS [facility] Last Admin: 12/06/18 22:23 Dose: 20 gm Lorazepam (Ativan) 0.5 mg IVP TID PRN; Protocol PRN Reason: Agitation Last Admin: 12/07/18 04:45 Dose: 0.5 mg Pantoprazole Sodium (Protonix Inj) 40 mg IVP Q12 [facility] Last Admin: 12/07/18 17:51 Dose: Not Given Quetiapine Fumarate (Seroquel) 12.5 mg PO HS [facility]; Protocol Rifaximin (Xifaxan) 550 mg PO BID [facility]; Protocol Last Admin: 12/07/18 17:51 Dose: Not Given Spironolactone (Aldactone) 25 mg PO DAILY [facility] Last Admin: 12/07/18 17:43 Dose: 25 mg Tamsulosin HCl (Flomax) 0.4 mg PO DAILY [facility] Last Admin: 12/07/18 17:43 Dose: 0.4 mg Vitamin A (Vitamin A & D Oint Ud Foilpak) 1 ea TOP Q2 PRN PRN Reason: Dry mouth - Labs Labs: 12/03/18 05:01 12/03/18 05:01 PT 16.9 SECONDS (9.4-12.5) H 12/02/18 13:44 INR 1.50 12/02/18 13:44 APTT 34.4 Seconds (26.9-38.3) 12/02/18 13:44 - Head Exam Head Exam: ATRAUMATIC, NORMOCEPHALIC - ENT Exam Additional comments: Edentulous - Neck Exam Neck Exam: Full ROM. absent: Lymphadenopathy - Respiratory Exam Respiratory Exam: NORMAL BREATHING PATTERN. absent: Accessory Muscle Use, Stridor - GI/Abdominal Exam GI & Abdominal Exam: Soft Additional comments: Distended shifting dullness present suggestive of ascites - Neurological Exam Neurological Exam: Alert, Awake Assessment and Plan - Assessment and Plan (Free Text) Assessment: This 73-year-old patient is admitted with the anemia coffee-ground vomitus. Patient did have an endoscopy done well found to have esophageal ulcers/erosions grade 1 varices and portal gastropathy. Flexible sigmoidoscopy done during his last admission showed a rectal varices with evidence of bleeding before. Decompensated cirrhosis History of esophageal varices last EGD showed only grade 1 varices with no evidence of bleeding. Patient did have gastric variceal banding in the past Esophageal ulcer erosions grade C esophagitis other problems include gastroparesis Ascites Legally blind Noncompliant Hepatitis serology revealed hep C PCR negative hep B surface antibody positive core antibody positive suggestive of previous hep C and B. No active disease now PCR was negative. Cirrhosis probably second to the alcohol use Plan: 1. Follow-up of the hemoglobin 2. Patient has been started on diuretics and a low-dose 3. Follow-up of the electrolytes. Patient has been refusing blood tests 4. It is reasonable to consider nonselective beta-blockers and also increase the dose of diuretics but for complaints of the patient makes the Delivery of Difficult
--- NOTE | 2018-12-07 23:16 | PN ---
DATE: 12/07/2018 SUBJECTIVE: The patient is a 73-year-old male. The patient was seen and examined at the bedside on 12/07/2018, looking comfortable. No fever. No chills. No nausea, vomiting, or diarrhea. No hematuria or hematochezia. No headache. No dizziness. No chest pain. No palpitations. PHYSICAL EXAMINATION: VITAL SIGNS: Blood pressure 104/63, pulse 60, temperature 98.1, and oxygen saturation 98% on room air. HEENT: Head; normocephalic and atraumatic. Eyes; PERRLA. Extraocular muscles intact. Conjunctivae clear. Nose patent. Mucous membranes moist. NECK: Supple. No carotid bruits. No JVD. No thyromegaly. CHEST: Bilaterally symmetrical. HEART: S1 and S2 positive. LUNGS: Clear to auscultation. ABDOMEN: Soft. Bowel sounds present. No organomegaly. EXTREMITIES: No edema. No cyanosis. NEUROLOGIC: The patient awake, alert, and follow simple commands. MEDICATIONS: DuoNeb, Brovana, Pulmicort, Ativan, Protonix, rifaximin, and Flomax. LABORATORY DATA: We do not have recent labs, but I reviewed old labs. ASSESSMENT AND PLAN: Mr. Esteban Carrion is a 73-year-old male came with gastrointestinal bleeding, has chronic obstructive pulmonary disease, status post blood transfusion due to anemia, renal insufficiency, decompensated alcoholic cirrhosis, history of hepatitis B, history of alcohol abuse, esophageal varices, gastric ulcers, ascites, status post paracentesis, esophagitis, gastritis, duodenitis, noncompliant, and still drinking. Gastrointestinal and deep venous thrombosis prophylaxes given. Compression devices to the lower extremities. Urged to be compliant. Continue Aldactone and Lasix. Repeat labs, out of bed, and physical therapy. We will follow up. Evie Ponce MD MTDD
[2018-12-08] MEDS: Arformoterol 15 mcg/2 ml Inh Sol IH SCH ×2 (07:11→20:03)
[2018-12-08] MEDS: Budesonide 0.5 mg/2 ml Inhal Susp UD IH SCH ×2 (07:11→20:03)
[2018-12-08 08:11] VITALS: RESP 18
--- NOTE | 2018-12-08 08:28 | CON ---
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 With previous medical issues, please see medical notes for more details. Psychiatry has been following up due to agitation on the unit. He was seen by Dr. Law yesterday and I reviewed her consultation as well with the patient at bedside this morning. Since the presentation, the patient has much improved overnight. He is still being difficult at times refusing medications. At times, he will listen to ; however, he is oddly related, abrupt and responses are not logical. The patient is aware that he is in the hospital; however, he does not know the current month or year is. He is wondering when I ask him the questions. The patient also responses with motherfucker or his staff members motherfuckers. He is hard to redirect, he is hard to provider, and it is difficult to have a productive interview with him. It appears to be exactly between upbeat and elevated. Nursing staff says that the patient has been difficult to manage and cooperative at times, but he does not have any insight into his current hospitalization and relapses, and this provider to make the medical decisions labs were reviewed. RELEVANT PSYCHIATRIC MEDICATIONS: Only include Ativan 0.5 IV t.i.d. p.r.n. IMPRESSION AND PLAN: I agree with Dr. Law. He does appear to have suffered from dementia, I cannot rule out contribution of delirium at this time complicating his regarding erratic behaviors. We will continue the Ativan but I will also add Seroquel 12.5 mg at bedtime to help him sleep. Psychiatry will follow up with him every other day and monitor him. Reva Parmar MD
--- NOTE | 2018-12-08 09:38 | PN ---
DATE: 12/06/2018 SUBJECTIVE: The patient was seen and examined at bedside on 12/06/2018 and looking comfortable, accept labs. Do not want to keep the Lynn catheter as getting anxious for Lynn's catheter. Refusing blood workup and medications. The patient is noncompliant, urged to be compliant. Started the paracentesis. PHYSICAL EXAMINATION: VITAL SIGNS: Temperature 98.6, pulse 95, respiratory 18, blood pressure 101/44, pulse oximetry 95%. HEENT: Head normocephalic, atraumatic. Eyes PERRLA, Extraocular muscles intact. Conjunctiva clear. Nose patent. NECK: Supple. No carotid bruits. No JVD. No thyromegaly. CHEST: Bilaterally symmetrical. HEART: S1 and S2 positive. LUNGS: Clear to auscultation. ABDOMEN: Soft. Bowel sounds present. No organomegaly. EXTREMITIES: No edema. No cyanosis. NEUROLOGIC: The patient is awake and alert. Follow simple commands. MEDICATIONS: Albuterol, Brovana, Pulmicort, lactulose, Ativan, Protonix, and vitamin A. LABORATORY DATA: White blood cells 8.8, hemoglobin 9.9, hematocrit 30.5, and platelets 129. Sodium 142, potassium 4.0, BUN 32, creatinine 0.5. Glucose 89. ASSESSMENT AND PLAN: Mr. Sheyla Orellana is a 73-year-old male with anemia, hypochloremia, renal insufficiency, hyperbilirubinemia and ascites, status post paracentesis multiple times. Medically nonadherence, noncompliant, decompensated ethanol cirrhosis, hepatic encephalopathy, history of bleeding, rectal varices, diverticulosis, history of hepatitis, chronic obstructive pulmonary disease, tobacco abuse, blindness, deaf, hematemesis and melena, esophagitis, esophageal varices. Now do not like Lynn catheter, we removed that. We will observe him very closely, at the EGD, the esophagitis, grade I varices, beta-blockers, therapy for varices. Titrated to heart rate. Continue Protonix, antibiotic coverage ceftriaxone, continue Lasix and Aldactone. Repeat laboratories. Continue lactulose and rifaximin. We will follow up. Evie Ponce MD [facility] # [id number]
--- NOTE | 2018-12-08 11:17 | PN ---
DATE: 12/08/2018 SUBJECTIVE: The patient is a 73-year-old male with multiple medical comorbidities. The patient is hard of hearing, blind which complicates interviewing. The patient was admitted on the medical side for evaluation of blood vomiting. Psych consult was called for evaluation of mood as well as the patient has tendency of refusing medication as well as agitated behavior. The patient was seen and examined last week. Over the weekend, Dr. Parmar followed up on this patient. This chart writer is taking over again. The patient was seen and examined today. Discussed with the nursing staff. As per report, the patient has tendency of refusing medication, has history of screaming, yelling, nobody notified about any physical aggression but screaming, yelling and being resistant to take medication. This chart writer attempted to speak to the patient but the patient said, "I'm done, I want my blanket, I want to call my daughter." The patient stayed quiet and refused to talk to this chart writer any longer. PHYSICAL EXAMINATION: VITAL SIGNS: Reviewed. Temperature 98, pulse 98, blood pressure 104/64, respirations 18, oxygen saturation is 95. MEDICATIONS: Reviewed. The patient is on Brovana. The patient refused Pulmicort. The patient refused Lasix. The patient took that medication, lactulose, Ativan 0.5 mg IV push three times a day as needed, last time was yesterday at the morning time. The patient is on Protonix, Seroquel 12.5 mg at the nighttime, but the patient was refusing that medication. The patient is on Xifaxan, Aldactone, Flomax with vitamin A. LABORATORY DATA: Reviewed. Most recent was from 12/03/2018, coagulation reviewed. Chemistry reviewed. MENTAL STATUS EXAMINATION: The patient presented to be alert, not possible to have meaningful conversation with the patient. The patient was making statement, "I'm done, I don't want to talk, I want to have extra blanket and I want to talk to my family." Nurses are aware of the patient request. IMPRESSION: Most likely, the patient is demented and delirious. As per history, the patient has alcohol-related dementia, history of alcohol abuse and complications due to chronic alcohol abuse. At present moment, the patient is on the medical side. The patient has history of esophageal varices, esophageal ulcer, erosions, grade C esophagitis as per GI team. The patient also has ascites. The patient is legally blind and history of unpredictable and agitated behavior. Medical team is planning to follow up on hemoglobin and diuretics, follow up on electrolytes and this chart writer would suggest to continue current medications. Family should be involved as per Broiler Supervisor. The patient was referred for transitional care unit. At this point, this chart writer will follow up on this patient every other day. Should you have any questions, give me a call back. Ativan should be continued because it will be safer for the patient's liver. Thank you very much for letting me participate in the care of your patient. Clarissa Law MD
--- NOTE | 2018-12-08 12:15 | CP.PCM.PN ---
<Ko Rhodes - Last Filed: 12/08/18 18:22> Subjective - Date & Time of Evaluation Date of Evaluation: 12/08/18 Time of Evaluation: 08:30 - Subjective Subjective: PGY6 GI Fellow Progress Note Patient seen and examined bedside this morning. The patient states that he has not eaten despite having eaten a full breakfast only moments ago. Continues to refuse blood work and medication despite education. Combative with nursing sta ff. 12 system ROS limited as patient not cooperative Objective - Vital Signs/Intake and Output Vital Signs (last 24 hours): Temp Pulse Resp BP Pulse Ox 98 F 98 H 18 104/64 95 12/08/18 06:00 12/08/18 06:00 12/08/18 06:00 12/08/18 06:00 12/08/18 06:00 Intake and Output: 12/08/18 12/08/18 06:59 18:59 Intake Total 720 Output Total 126 Balance 594 - Medications Medications: Current Medications Albuterol/Ipratropium (Duoneb 3 Mg/0.5 Mg (3 Ml) Ud) 3 ml IH [id number] PRN PRN Reason: Shortness of Breath Last Admin: 12/03/18 19:52 Dose: 3 ml Arformoterol Tartrate (Brovana) 15 mcg IH [id number] [facility] Last Admin: 12/08/18 07:11 Dose: Not Given Budesonide (Pulmicort Respules) 0.5 mg IH [id number] [facility] Last Admin: 12/08/18 07:11 Dose: Not Given Furosemide (Lasix) 20 mg PO DAILY [facility] Last Admin: 12/07/18 17:42 Dose: 20 mg Lactulose (Enulose) 20 gm PO HS [facility] Last Admin: 12/07/18 22:10 Dose: Not Given Lorazepam (Ativan) 0.5 mg IVP TID PRN; Protocol PRN Reason: Agitation Last Admin: 12/07/18 04:45 Dose: 0.5 mg Pantoprazole Sodium (Protonix Inj) 40 mg IVP Q12 [facility] Last Admin: 12/07/18 22:10 Dose: Not Given Quetiapine Fumarate (Seroquel) 12.5 mg PO [facility]; Protocol Last Admin: 12/07/18 22:10 Dose: Not Given Rifaximin (Xifaxan) 550 mg PO BID [facility]; Protocol Last Admin: 12/07/18 17:51 Dose: Not Given Spironolactone (Aldactone) 25 mg PO DAILY [facility] Last Admin: 12/07/18 17:43 Dose: 25 mg Tamsulosin HCl (Flomax) 0.4 mg PO DAILY [facility] Last Admin: 12/07/18 17:43 Dose: 0.4 mg Vitamin A (Vitamin A & D Oint Ud Foilpak) 1 ea TOP Q2 PRN PRN Reason: Dry mouth - Labs Labs: 12/03/18 05:01 12/03/18 05:01 PT 16.9 SECONDS (9.4-12.5) H 12/02/18 13:44 INR 1.50 12/02/18 13:44 APTT 34.4 Seconds (26.9-38.3) 12/02/18 13:44 - Constitutional Appears: No Acute Distress, Agitated - Eye Exam Additional comments: blind - ENT Exam ENT Exam: Mucous Membranes Moist - Respiratory Exam Respiratory Exam: Clear to Ausculation Bilateral. absent: Rales, Rhonchi, Wheezes - Cardiovascular Exam Cardiovascular Exam: RRR, +S1, +S2 - GI/Abdominal Exam GI & Abdominal Exam: Distended, Normal Bowel Sounds. absent: Firm, Guarding, Rigid, Soft, Tenderness, Organomegaly Additional comments: improved but remains distended - Extremities Exam Extremities Exam: Normal Inspection. absent: Pedal Edema - Neurological Exam Neurological Exam: Altered, Awake - Psychiatric Exam Psychiatric exam: Agitated, Anxious - Skin Skin Exam: Dry, Warm Assessment and Plan - Assessment and Plan (Free Text) Assessment: Patient is a 73yo male with PMHx significant for decompensated EtOH cirrhosis c/b ascites, hepatic encephalopathy and bleeding esophageal varices, rectal varices, diverticulosis, h/o HBV and HCV exposure, EtOH abuse, COPD and tobacco abuse, blindness and decreased hearing acuity who presented to the ED abdominal pain, hematemesis and melena -Decompensated EtOH cirrhosis -Acute blood loss anemia -Esophagitis -Esophageal varices -Hepatic encephalopathy -Hyperbilirubinemia -Medical nonadherence Plan: -Patient remains nonadherent to recommended therapies and will not allow for blood work despite constant education from all teams and nursing staff -Ongoing PPI use -Diuretic therapy was resumed at low dose (Spironolactone 25mg daily and Lasix 20mg daily) - both are below the recommend therapeutic threshold for preventing ascites (recommended starting dose of Aldactone at 100mg and lasix 40mg daily); moreover, patient refusing blood work and thus cannot monitor kidney function -Patient aware of risks of treatment without monitoring labs such as acute kidney failure, still refusing -Encourage use of Lactulose and Xifaxan for hepatic encephalopathy - titrating lactulose to 1BM/day -S/P 2500cc paracentesis without evidence of SBP on cell count -Beta-jagdeep therapy for varices titrated to heart rate - with caution as this can exacerbate ascites -Ceftriaxone 1g IV QD x total 7 days for prophylaxis -Given nonadherence and as patient is a poor candidate for transplant, encourage family discussion with goals of care, consideration for placement and if patient continues refusing all interventions, consideration for palliative care <Deyanira Oropeza V - Last Filed: 12/08/18 22:16> Objective - Vital Signs/Intake and Output Vital Signs (last 24 hours): Temp Pulse Resp BP Pulse Ox 98.2 F 98 H 18 102/56 L 94 L 12/08/18 14:00 12/08/18 14:00 12/08/18 14:00 12/08/18 14:00 12/08/18 14:00 Intake and Output: 12/08/18 12/09/18 18:59 06:59 Intake Total 540 Output Total 1 Balance 539 - Medications Medications: Current Medications Albuterol/Ipratropium (Duoneb 3 Mg/0.5 Mg (3 Ml) Ud) 3 ml IH [id number] PRN PRN Reason: Shortness of Breath Last Admin: 12/03/18 19:52 Dose: 3 ml Arformoterol Tartrate (Brovana) 15 mcg IH [id number] [facility] Last Admin: 12/08/18 20:03 Dose: Not Given Budesonide (Pulmicort Respules) 0.5 mg IH [id number] [facility] Last Admin: 12/08/18 20:03 Dose: Not Given Furosemide (Lasix) 20 mg PO DAILY [facility] Last Admin: 12/08/18 12:51 Dose: 20 mg Lactulose (Enulose) 20 gm PO HS [facility] Last Admin: 12/07/18 22:10 Dose: Not Given Lorazepam (Ativan) 0.5 mg IVP TID PRN; Protocol PRN Reason: Agitation Last Admin: 12/08/18 16:32 Dose: 0.5 mg Pantoprazole Sodium (Protonix Inj) 40 mg IVP Q12 [facility] Last Admin: 12/08/18 12:51 Dose: 40 mg Quetiapine Fumarate (Seroquel) 12.5 mg PO HS [facility]; Protocol Last Admin: 12/07/18 22:10 Dose: Not Given Rifaximin (Xifaxan) 550 mg PO BID [facility]; Protocol Stop: 12/09/18 23:59 Last Admin: 12/08/18 18:35 Dose: Not Given Spironolactone (Aldactone) 25 mg PO DAILY [facility] Last Admin: 12/08/18 12:50 Dose: 25 mg Tamsulosin HCl (Flomax) 0.4 mg PO DAILY [facility] Last Admin: 12/08/18 12:50 Dose: 0.4 mg Vitamin A (Vitamin A & D Oint Ud Foilpak) 1 ea TOP Q2 PRN PRN Reason: Dry mouth - Labs Labs: 12/03/18 05:01 12/03/18 05:01 PT 16.9 SECONDS (9.4-12.5) H 12/02/18 13:44 INR 1.50 12/02/18 13:44 APTT 34.4 Seconds (26.9-38.3) 12/02/18 13:44 Attending/Attestation - Attestation I have personally seen and examined this patient.: Yes I have fully participated in the care of the patient.: Yes I have reviewed all pertinent clinical information, including history, physical exam and plan: Yes Notes (Text): This patient was seen and evaluated here earlier along with the GI fellow. This is an addendum to the GI progress report dictated by the fellow. Extremely noncompliant patient with multiple comorbidities as described above. Overall prognosis of the patient is guarded. Multiple hospitalization recently. 12/08/18 22:15
--- NOTE | 2018-12-08 13:56 | PN ---
DATE: 12/08/2018 PULMONARY PROGRESS NOTE REFERRING PHYSICIAN: Evie Ponce MD SUBJECTIVE: The patient is seen lying in bed, in no acute distress. No overnight events reported. Nursing staff reports the patient continues to refuse medication. The patient also noted with urinary retention after bladder scan was done. Postvoid, the patient noted on scan 541 mL. The patient refused to be straight cath per nursing staff. Upon assessment this morning, the patient denies any headache, rhinitis, cough, shortness of breath, chest pain, abdominal pain, nausea, vomiting, diarrhea, leg pain, or leg swelling. OBJECTIVE: GENERAL: No acute distress. VITAL SIGNS: Blood pressure 104/64, pulse 98, temperature 98, oxygen saturation 95% on room air. HEENT: Moist mucous membrane. Crowded airway. NECK: Supple. No JVD. RESPIRATORY: Few scattered rhonchi bilaterally. CARDIOVASCULAR: S1 and S2. ABDOMEN: Distended, nontender. EXTREMITIES: No bilateral lower extremity edema. NEUROLOGIC: Awake, alert, and verbal. MEDICATIONS: Reviewed. DuoNeb 3 mL inhalation every 6 hours p.r.n., Brovana 15 mcg inhalation every 12 hours, Pulmicort 0.5 mg inhalation every 12 hours, Lasix 20 mg daily, lactulose 20 g at bedtime, Ativan 0.5 mg IV push 3 times a day p.r.n., Protonix 40 mg IV push every 12 hours, Seroquel 12.5 mg at bedtime, rifaximin 550 mg p.o. twice a day, spironolactone 25 mg daily, Flomax 0.4 mg daily, and vitamin A and vitamin D topically every 2 hours p.r.n. LABORATORY DATA: Ascitic fluid preliminary showing no growth after 24 hours. IMPRESSION AND PLAN: Gastrointestinal bleed, anemia, chronic obstructive lung disease, status post blood transfusion, renal insufficiency, decompensated alcoholic cirrhosis, history of hepatitis B, history of alcohol abuse, esophageal varices, gastric varices, ascites, status post paracentesis, esophagitis, gastritis, and hard of hearing. The patient referred to TCU unit for rehabilitation. Continue inhaled bronchodilators. Continue SCDs to bilateral lower extremities. The patient cannot be on chemical prophylaxis due to history of anemia, status post blood transfusion. Continue gastric prophylaxis, aspiration precautions, and head of bed elevated to 45 degrees. We will order labs to be drawn in the morning, fall precautions. Discussed with the patient medical treatments and encouraged him to take medications and have blood work drawn, the patient continues to refuse. Continue Psychiatry followup. We believe the patient would benefit from physical therapy, out of bed to chair. The patient was seen and examined with Dr. Atkins. Discussed assessment and plan as described above. The patient was seen and examined with Garry Gutierrez, nurse practitioner. Discussed assessment and plan as described above. Thank you for this consult. We will follow with you. Garry Gutierrez APN Theodore Atkins MD J[facility]
[2018-12-08] MEDS ORDERED: Albuterol-Ipratrop 3 mg / 0.5 (3 ml) UD IH STA (15:55)
--- NOTE | 2018-12-08 15:55 | CP.PCM.PCO ---
Additional Comments - Additional Comments Additional Comments: Anemia improved, s/p egd revealed varices,portal gastropathy, no further bleeding episodes. Pt. s/p paracentesis 12/05, 2500 cc fluid drained. Today patient with urinary retention, bladder scan per nurse >600 ml, rousseau catheter ordered,patient refused,urology consulted pending as per PMD. Wheezes noted, advised duoneb treatment, nurse made aware. Pt noncompliant with treatment plan and pT, consider DC home, after voids, further recs per urology,consult pending.
--- NOTE | 2018-12-08 21:07 | PN ---
DATE: 12/08/2018 SUBJECTIVE: The patient is a 73-year-old male. The patient is seen and examined at the bedside on 12/08/2018 and this progress note is for 12/08/2018. The patient is comfortable, no fever, no chills but still coughing. The patient is refusing medications, has urinary retention after bladder scan was done. One thing he is not voiding, the second thing he does not want Lynn catheter. Paracentesis was done, 2500 mL of fluid was removed. The patient is not very cooperative, urged to be cooperative. No abdominal pain. No nausea, vomiting, or diarrhea. PHYSICAL EXAMINATION: VITAL SIGNS: Blood pressure 104/64, pulse 98, temperature 98, oxygen saturation 95% on room air. HEENT: Head: Normocephalic, atraumatic. Eyes: PERRLA. Extraocular muscles intact. Conjunctivae clear. Nose patent. Mucosal membranes moist. NECK: Supple. No carotid bruit. No JVD or thyromegaly. CHEST: Bilaterally symmetrical. HEART: S1 and S2 positive. LUNGS: Clear to auscultation. ABDOMEN: Soft. Nontender. No organomegaly. EXTREMITIES: No edema. No cyanosis. NEUROLOGICAL: The patient is awake and alert. Follows simple commands. MEDICATIONS: DuoNeb, Brovana, Pulmicort, Lasix, Lactulose, Ativan, Protonix, Seroquel, spironolactone, Flomax. LABORATORY DATA: We do not have recent labs today but reviewed old labs. ASSESSMENT AND PLAN: Mr. Esteban Carrion is a 73-year-old male with gastrointestinal bleeding, anemia, chronic obstructive lung disease status post blood transfusion, renal insufficiency, alcoholic cirrhosis, history of hepatitis B, history of ethanol abuse, esophageal varices, gastric varices, ascites, trying to send the patient to transitional care unit but the patient is refusing, retaining urine, does not want Lynn catheter. Discussion done with nurse practitionerKeiry. Will call urology consult. Will talk to the family. Meanwhile continue present treatment. Gastrointestinal and deep vein thrombosis prophylaxis. Repeat labs. We will follow up. Evie Ponce MD [facility] # [id number]
[2018-12-08 22:37] VITALS: O2SAT 95
[2018-12-09] MEDS: Arformoterol 15 mcg/2 ml Inh Sol IH SCH ×2 (07:19→20:01)
[2018-12-09] MEDS: Budesonide 0.5 mg/2 ml Inhal Susp UD IH SCH ×2 (07:19→20:01)
--- NOTE | 2018-12-09 11:50 | PN ---
DATE: 12/09/2018 PULMONARY PROGRESS NOTE REFERRING PHYSICIAN: Dr. Evie Ponce. SUBJECTIVE: The patient is seen lying in bed. No acute distress. Nursing staff reports that the patient refused lab work to be drawn this morning, was refusing bladder scan to be done, but nurse was able to scan bladder later this morning and postvoid was noted with 464 mL. Nursing staff reports that the patient was seen by Urology. The patient has been refusing catheterization. No headache, rhinitis, cough, shortness of breath, chest pain, abdominal pain, nausea, vomiting, diarrhea, leg pain, or leg swelling reported. The patient is just asking about discharge home. OBJECTIVE: GENERAL: No acute distress. VITAL SIGNS: Blood pressure 107/68, pulse 100, temperature 99.3, and oxygen saturation 95%. HEENT: Moist mucous membrane. Crowded airway. NECK: Supple. No JVD. RESPIRATORY: Few scattered rhonchi bilaterally. CARDIOVASCULAR: S1 and S2. ABDOMEN: Distended and nontender. EXTREMITIES: No bilateral lower extremity edema. NEUROLOGIC: Awake, alert, and verbal. MEDICATIONS: Reviewed. DuoNeb 3 mL inhalation every 6 hours p.r.n., Brovana 15 mcg inhalation every 12 hours, Pulmicort 0.5 mg inhalation every 12 hours, Lasix 20 mg daily, lactulose 20 g at bedtime, Ativan 0.5 mg IV push three times a day p.r.n., Protonix 40 mg IV push every 12 hours, Seroquel 12.5 mg at bedtime, rifaximin 550 mg twice a day, spironolactone 25 mg daily, Flomax 0.4 mg daily, and vitamin A and D topically every 2 hours p.r.n. LABORATORY DATA: Reviewed. No new labs. IMPRESSION AND PLAN: Gastrointestinal bleed, anemia, chronic obstructive lung disease, status post blood transfusion, renal insufficiency, decompensated alcoholic cirrhosis, history of hepatitis B, history of alcohol abuse, esophageal varices, gastric varices, ascites, status post paracentesis, esophagitis, gastritis, and hard of hearing. We will order her bladder scans to be done every shift and straight cath were residual greater than 250. Continue Urology followup. Pulmonary point of view, continue inhaled bronchodilators. Continue sequential compression devices to bilateral lower extremities. The patient cannot be on chemical prophylaxis due to anemia, gastrointestinal bleed, and history of blood transfusion. Continue gastric prophylaxis, aspiration precautions, head of bed elevated at 45 degrees, and fall precautions. Continue Psychiatry followup. The patient will benefit from physical therapy. We will order labs again to be drawn in the morning. The patient was seen and examined with Dr. Atkins. Discussed assessment and plan as described above. The patient was seen and examined with Garry Gutierrez, nurse practitioner. Discussed assessment and plan as described above. Thank you for this consult. We will follow with you. Garry Gutierrez APN Theodore Atkins MD [facility]
--- NOTE | 2018-12-09 23:10 | PN ---
DATE: 12/09/2018 SUBJECTIVE: The patient is a 73-year-old male. The patient was seen and examined at the bedside on 12/09/2018. The patient is awake and alert, complaining about different issues, very noncompliant, is not passing urine, and refusing Lynn's catheter, sometimes coughing and wheezing. The patient is seen by Dr. Atkins, he is in presence also and the patient's nurse, he was standing on the bedside, urged to be compliant. PHYSICAL EXAMINATION: VITAL SIGNS: Blood pressure 107/68, pulse 100, temperature 97.3, oxygen saturation 95%, respiratory rate 18. HEENT: Head: Normocephalic, atraumatic. Eyes: PERRLA. Extraocular muscles intact. Conjunctivae clear. Nose patent. Mucosal membranes moist. NECK: Supple. No carotid bruit. No JVD or thyromegaly. CHEST: Bilaterally symmetrical. HEART: S1 and S2 positive. LUNGS: Clear to auscultation. ABDOMEN: Soft. Bowel sounds present. No organomegaly. EXTREMITIES: No edema. No cyanosis. NEUROLOGIC: The patient is awake and alert. Moving all four extremities. No focal deficits. MEDICATIONS: DuoNeb, Brovana, Pulmicort, Lasix, Lactulose, Protonix, Seroquel, rifaximin, spironolactone, vitamin A and B. LABORATORY DATA: We do not have recent labs today, but I reviewed old labs. ASSESSMENT AND PLAN: Mr. Esteban Carrion is a 73-year-old male with multiple medical problems; urinary retention, refusing Lynn's catheter. Urologist is on the case. Discussion done with Dr. Atkins, make patient's Flomax twice a day. History of gastrointestinal bleeding, anemia, chronic obstructive pulmonary disease, status post blood transfusion, renal insufficiency, decompensated alcoholic cirrhosis, history of hepatitis B, history of ethanol abuse, esophageal varices, gastric varices, ascites status post paracentesis multiple times, esophagitis, gastritis, blind, hard of hearing, Psychiatry is on the case. Discussion done with Dr. Atkins on the bedside. Status post EGD that revealed varices, portal gastropathy. Recently no bleeding. Paracentesis done on 12/05, and 2500 mL fluid was drained. The patient has urinary retention from couple of days. Today, bladder scan showed 600 mL. Lynn catheter ordered by me, the patient refused. Urology is on the case, waiting for input. Little bit of wheezing noted. Continue DuoNeb. Gastrointestinal deep vein thrombosis prophylaxis. Urged to be compliant. Length of time discussion was done with the patient by myself and by Dr. Atkins, and he understands. We will follow up. Evie Ponce MD [facility]
[2018-12-10] MEDS: Albuterol-Ipratrop 3 mg / 0.5 (3 ml) UD IH PRN ×2 (03:50→07:52)
[2018-12-10 07:19] VITALS: PULSE 100; TEMP 97.5
[2018-12-10 07:38] LABS: BASO # 0.06 K/mm3 (0.0-2.0); BASO % 1.1 % (0.0-3.0); EOS # 0.2 (0.0-0.7); EOS % 3.7 % (1.5-5.0); HEMOGLOBIN 9.4 g/dL (14.0-18.0); LYMPH # 1.5 (1.2-3.4); LYMPH % 25.5 % (22.0-35.0); MEAN CORPUSCULAR HEMOGLOBIN 26.2 pg (25.0-35.0); MEAN CORPUSCULAR HGB CONC 31.5 g/dl (31.0-37.0); MEAN PLATELET VOLUME 10.8 fl (7.0-11.0); MONO # 0.6 (0.1-0.6); MONO % 10.9 % (1.0-6.0); RBC 3.59 10^6/uL (3.5-6.1); RED CELL DISTRIBUTION WIDTH 18.8 % (11.5-14.5); WHITE BLOOD COUNT 5.7 10^3/uL (4.5-11.0)
[2018-12-10] MEDS: Budesonide 0.5 mg/2 ml Inhal Susp UD IH SCH (07:51)
[2018-12-10] MEDS: Arformoterol 15 mcg/2 ml Inh Sol IH SCH (07:51)
[2018-12-10 07:59] LABS: ALB/GLOB RATIO 0.8 (1.1-1.8); ALBUMIN 2.7 g/dL (3.0-4.8); ALT/SGPT 17 U/L (7-56); AST/SGOT 36 U/L (17-59); BLOOD UREA NITROGEN 16 mg/dL (7-21); CALCIUM 8.4 mg/dL (8.4-10.5); GFR NON-AFRICAN AMERICAN > 60
[2018-12-10 10:03] VITALS: BP 118/68
--- NOTE | 2018-12-10 12:58 | PCM.PCON ---
History of Present Illness - History of Present Illness History of Present Illness: Palliative consult requested by Dr Liyah Ponce Reason: Goals of care This is a 73 year old male with history of alcohol abuse,cirrhosis, ascites, hepatic encephalopathy and GI bleeding who presented to the ED on 12/02 with abdominal pain, hematemesis and melena. Initial Hgb was 6.4. EGD/Colon on 11/24/18; Portal HTN gastropathy; large rectal varices and diverticulosis Chest x ray: Negative Abdominal US: Cirrhosis, patent portal javan, ascites. 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 Family History: Non contributory Social: Former tobacco(40 pk/ yr), alcohol abuse(stopped drinking 13 yrs ago), denies illicit drug use. Lives alone. Advance Care Planning: The patient does not have an Advanced Directive Review of Systems: As per NILSON, denies all complaints 12 point ROS negative Review of Systems - Review of Systems All systems: reviewed and no additional remarkable complaints except Physical Exam - Constitutional Appears: Chronically Ill - ENT Exam ENT Exam: Mucous Membranes Moist - Respiratory Exam Respiratory Exam: Clear to Auscultation Bilateral, NORMAL BREATHING PATTERN - Cardiovascular Exam Cardiovascular Exam: REGULAR RHYTHM, +S1, +S2 - GI/Abdominal Exam GI & Abdominal Exam: Distended, Hypoactive Bowel Sounds, Soft - Extremities Exam Extremities exam: Positive for: full ROM, pedal pulses present - Neurological Exam Additional comments: lethargic - Skin Skin Exam: Dry, Pallor - Additional Findings Additional findings: Palliative performance scale rating 40% Palliative Care Assessment - Modified MRC Dyspnea Scale Modified MRC Dyspnea Scale: Has to stop for breath when walking at own pace Grade: 3 - Pain Scale Pain Score: 0 Pain Scale Used: Marks-Ramon - Edwin Scale Sensory Perception: Very Limited Moisture: Rarely Moist Activity: Walks Occasionally Mobility: Slightly Impaired Nutrition: Probably Inadequate Friction & Shear: Potential Problem Total Score - Skin Risk Assessment: 16 - Psychosocial Distress Patient screened for psychosocial distress: Yes Outcome: Referred to bilingual social worker Assessment & Plan - Assessment and Plan (Free Text) Assessment: 73 year old male with history of cirrhosis, ascites, hepatic encephalopathy,esophageal varices,rectal varices, diverticulosis, HBV,COPD, blindness and decreased hearing who is admitted with abdominal pain, hematemesis, melena,anemia, hepatic encephalopathyand hyperbilirubinemia. The patient is lethargic, confused at times. He is also very hard of hearing. Patient's daughter Lian at bedside. Mr Carrion speaks British but communicates better when spoken to in [place]. Dr Connelly was able to speak to the patient in Setswana during this meeting. Mr Carrion is oriented to self, he can not report reason for this hospitalization. When asked if he has someone to make decisions for him, he indicated that it was Lian. Patient's previous records indicated that it was his brother Ed. Lian stated that the brother is no longer in the picture and that she would be responsible for helping with her fathers care. The patient was unable to tell us of his wishes regarding resuscitation. Further discussion ensued regarding goals of care. It was explained that patient illness is worsening and without proper care his condition would decline. Lian was told that if she could not care for her dad, care home placement could be provided. When asked, patient stated that he wants to go home. Unfortunately I do not believe the patient understands that he has been unable to care for himself properly. Lian stated that she will care for her dad at home. Time spent with patient and family in goals of care and advance care planning,50 minutes Plan: Goals of care and advance care planning Hepatic encephalopathy:Slowly improving, continue Lactulose,Rifaximin as ordered. Ativan/Seroquel as needed. Anemia: S/p PRBC's, monitor CBC's Ascites; s/p paracentisis, continue Lasix As per Pulmonary recs, continue nebulizers
--- NOTE | 2018-12-10 15:58 | PN ---
DATE: 12/10/2018 REFERRING PHYSICIAN: Evie Ponce MD SUBJECTIVE: The patient is lying in the bed, head at 45 degrees, daughter at bedside, being discharged home, feels better. No cough. No sputum production. No chest pain. He is making urine. No leg swelling. OBJECTIVE: GENERAL: In no acute distress. VITAL SIGNS: Temperature is 98, heart rate is 70, respiratory rate is 18, blood pressure 118/68, pulse ox 95% on room air. HEENT: Moist mucous membrane. No ulcer or thrush. NECK: Supple. No JVD. LUNGS: Have fair airflow with rhonchi. HEART: S1 and S2. ABDOMEN: Distended, had ascites. EXTREMITIES: There is no edema. NEUROLOGICAL: Awake, alert and follows simple command, very hard of hearing . MEDICATIONS: Aldactone 25 mg daily, Ativan 0.5 mg only p.r.n., Brovana inhaled twice a day, albuterol/Atrovent nebulizer every 6 hours p.r.n., lactulose 20 g h.s., Flomax 0.4 mg daily, Lasix 20 mg daily, Protonix 40 mg twice a day, Pulmicort inhaled twice a day, Seroquel 12.5 mg h.s., vitamin A and D to affected area. LABORATORY DATA: Shows hemoglobin 9.4, hematocrit 29.8, WBC 5.7, and platelet is 150. Sodium 136, potassium 4, chloride 105, bicarbonate 25, BUN 16, creatinine 0.6, glucose 79, calcium 8.4, AST 36, ALT 17, and alk phos is 196. Albumin is 2.7. IMPRESSION AND PLAN: Status post gastrointestinal bleed with anemia requiring transfusion, chronic obstructive lung disease, renal insufficiency, history of alcohol abuse with cirrhosis, hepatitis B, esophageal varices and gastric varices, recurrent ascites requiring paracentesis, esophagitis, and hard of hearing. Case discussed with daughter at bedside. All the questions answered. Spoke to the nursing staff. His bladder scan is inadequate, especially because of the recurrent ascites. He is able to make urine and there is no complaint about it. Pulmonary point of view, continue bronchodilator. Continue small dose of diuretics, need to watch closely that he is having p.o. intake. We will follow with Dr. Ponce. He is noncompliant though medically stable to be discharged, refused to go to subacute or nursing facility. Theodore Atkins MD
--- NOTE | 2018-12-11 05:08 | DS ---
This case has been discussed with Dr. Ponce. She is in agreement with treatment plan. HISTORY OF PRESENT ILLNESS: This patient was admitted on 12/02/2018 with GIB and anemia. He has a past medical history of alcoholism, chronic hepatitis B and C, chronic anemia, dementia, Barrette's esophagus, and hypertension. The patient has multiple health problems, noncompliance. I saw the patient today at the bedside, less agitated. Denies any acute distress. Denies shortness of breath, chest pain, abdominal pain, hematuria, hematochezia, fever, or chills. The patient states he wants to go home. At this time, the patient is refusing inpatient subacute rehab. The patient has this type of history, very noncompliance with care. FAMILY HISTORY: Father and mother, noncontributory. ALLERGIES: THE PATIENT HAS NO KNOWN ALLERGIES. HOME MEDICATIONS: Reviewed. PHYSICAL EXAMINATION: VITAL SIGNS: Temperature 98.7, blood pressure 124/60, pulse 58, respiratory rate 18, and sat 94%. GENERAL: The patient appears in no acute distress. HEENT: Normocephalic and atraumatic. PERRLA. Mucous membranes moist. NECK: Supple. No thyromegaly. LUNGS: Clear to auscultation. CARDIOVASCULAR: S1 and S2. No JVD. ABDOMEN: Soft. No organomegaly. Positive bowel sounds. SKIN: Intact. EXTREMITIES: The patient has no cyanosis. No edema. NEUROLOGIC: Alert and oriented x2-3. Cognitive deficits appreciated. MEDICATIONS: Brovana, Pulmicort, Lasix, lactulose, Protonix, NovoLog, and Aldactone. LABORATORY PROFILE: White blood cells 5.7, hemoglobin 9.4, hematocrit 29.8, and platelet count is 150. Sodium 136, potassium 4, BUN 16, and GFR is over 60. AST 36, ALT 17, and ammonia level 60. INR 1.5 and PT 16.9. ASSESSMENT AND PLAN: This is a 73-year-old male with multiple medical issues admission for alcoholism, nicotine dependence, chronic obstructive pulmonary disease, esophageal varices, Barrette's esophagus, chronic hepatitis B and C, and chronic anemia. The patient partially blind or legally blind. During this stay, the patient was followed by Urology for urinary retention. Lynn catheter was placed in. Urology has seen the patient, Lynn catheter was discontinued. The patient was started on Flomax. The patient was urinating on own. Hospice was also consulted. The patient was not willing to the hospice. The patient denies subacute care or placement. The patient was seen by GI. The patient was seen by Pulmonology. We discharged the patient today with home meds. Home meds was reviewed. We will follow up the patient in office. AGREED ALL ABOVE , CHART , MEDS , LABS NOTED , SATISFY WITH SIGNAL WORKER HELPER TREATMENT PLAN . LABS ORDERED FOR TOMORROW , Femi Moffett APN Evie Ponce MD JULIET
== END 2018-12-10 14:23 | disposition home or self-care (01) | DRG 378 ==
LOC: ED 12:11 → ERH 16:41 → ICU 21:46 → 5RNO 12-04 14:09
PROVIDERS: ADMIT Internal Medicine; ATTEND Internal Medicine
PROC: 30233N1 Transfusion of Nonautologous Red Blood Cells into Peripheral Vein, Percutaneous Approach (ICD-10-PCS; principal; 2018-12-02)
PROC: 0DJ08ZZ Inspection of Upper Intestinal Tract, Via Natural or Artificial Opening Endoscopic (ICD-10-PCS; 2018-12-03)
PROC: 3E0F7GC Introduction of Other Therapeutic Substance into Respiratory Tract, Via Natural or Artificial Opening (ICD-10-PCS; 2018-12-03)
PROC: 0W9G3ZZ Drainage of Peritoneal Cavity, Percutaneous Approach (ICD-10-PCS; 2018-12-05)
DX: K92.0 Hematemesis (principal); D62 Acute posthemorrhagic anemia; K76.6 Portal hypertension; B18.1 Chronic viral hepatitis B without delta-agent; K70.31 Alcoholic cirrhosis of liver with ascites; F10.27 Alcohol dependence with alcohol-induced persisting dementia; K72.90 Hepatic failure, unspecified without coma; I10 Essential (primary) hypertension; I85.10 Secondary esophageal varices without bleeding; E11.43 Type 2 diabetes mellitus with diabetic autonomic (poly)neuropathy; K31.84 Gastroparesis; K31.89 Other diseases of stomach and duodenum; B18.2 Chronic viral hepatitis C; J44.9 Chronic obstructive pulmonary disease, unspecified; R33.9 Retention of urine, unspecified; I25.10 Atherosclerotic heart disease of native coronary artery without angina pectoris; E78.5 Hyperlipidemia, unspecified; K21.0 Gastro-esophageal reflux disease with esophagitis; K29.70 Gastritis, unspecified, without bleeding; E86.0 Dehydration; F41.9 Anxiety disorder, unspecified; I86.8 Varicose veins of other specified sites; K22.70 Barrett's esophagus without dysplasia; K57.30 Diverticulosis of large intestine without perforation or abscess without bleeding; H54.8 Legal blindness, as defined in USA; H91.93 Unspecified hearing loss, bilateral; H40.9 Unspecified glaucoma; Z91.19 Patient's noncompliance with other medical treatment and regimen; Z86.73 Personal history of transient ischemic attack (TIA), and cerebral infarction without residual deficits; Z87.891 Personal history of nicotine dependence

== ENCOUNTER 2018-12-10 16:21 | Inpatient (IN) | payer MEDICARE, MEDICAID ==
[2018-12-10 16:38] VITALS: BMI 21.4
[2018-12-10 18:48] LABS: BASO # 0.04 K/mm3 (0.0-2.0); BASO % 0.7 % (0.0-3.0); EOS # 0.2 (0.0-0.7); EOS % 2.8 % (1.5-5.0); HEMOGLOBIN 8.8 g/dL (14.0-18.0); LYMPH # 1.5 (1.2-3.4); LYMPH % 25.7 % (22.0-35.0); MEAN CELL VOLUME 82.6 fl (80.0-105.0); MEAN CORPUSCULAR HGB CONC 31.4 g/dl (31.0-37.0); MEAN PLATELET VOLUME 9.5 fl (7.0-11.0); MONO # 0.6 (0.1-0.6); MONO % 10.5 % (1.0-6.0); RBC 3.39 10^6/uL (3.5-6.1); RED CELL DISTRIBUTION WIDTH 18.7 % (11.5-14.5); WHITE BLOOD COUNT 5.8 10^3/uL (4.5-11.0)
[2018-12-10 18:53] LABS: INR 1.32; PARTIAL THROMBOPLASTIN TIME 36.2 Seconds (26.9-38.3); PROTHROMBIN TIME 14.7 SECONDS (9.4-12.5)
[2018-12-10 18:59] LABS: ALB/GLOB RATIO 0.8 (1.1-1.8); ALBUMIN 2.7 g/dL (3.0-4.8); ALT/SGPT 20 U/L (7-56); AST/SGOT 37 U/L (17-59); BLOOD UREA NITROGEN 15 mg/dL (7-21); CALCIUM 8.1 mg/dL (8.4-10.5); GFR NON-AFRICAN AMERICAN > 60
--- NOTE | 2018-12-10 19:06 | ED PDOC ---
Arrival/HPI - General Chief Complaint: Trauma Time Seen by Provider: 12/10/18 16:38 - Critical Care Narrative Critical Care (Text): 12/10/18 19:05 73m presents from home for evaluation of fall at home. Details of history provided by nursing report. Patient is uncooperative and does not participate to provide any relevant history. Patient is covering himself to avoid talking states "its cold, leave me alone". Past Medical History - Provider Review Primary Care Provider: Evie Ponce - Infectious Disease Hx of Infectious Diseases: None - Tetanus Immunization Tetanus Immunization: Unknown - Past Medical History Past Medical History: No Previous - Cardiac Hx Cardiac Disorders: Yes (CAD) Hx Hypertension: Yes - Pulmonary Hx Chronic Obstructive Pulmonary Disease (COPD): Yes - Neurological HX Cerebrovascular Accident: Yes (no residual) - HEENT Hx HEENT Disorder: Yes Hx Blind: Yes Hx Cataracts: Yes (both eyes) Hx Deafness: Yes (left ear, [place] r ear) Hx Glaucoma: Yes (left eye) Other/Comment: legally blind - Renal Hx Renal Disorder: No - Endocrine/Metabolic Hx Diabetes Mellitus Type 2: (denies) - Hematological/Oncological Hx Blood Transfusions: Yes (10/30/16) Hx Blood Transfusion Reaction: No - Integumentary Hx Dermatological Disorder: No - Musculoskeletal/Rheumatological Hx Arthritis: Yes - Gastrointestinal Hx Gastrointestinal Disorders: Yes (CHOLELITHIASIS,COLITIS,ESOPHAGEAL VARICES,H/O PARACENTESIS,) Hx Gall Bladder Disease: Yes (gallstones) Hx Gastroesophageal Reflux: Yes Other/Comment: alcoholic cirrhosis of the liver, ascites, r inguinal hernia, lower and upper gi bleed - Genitourinary/Gynecological Hx Incontinence: Yes - Psychiatric Hx Psychophysiologic Disorder: Yes Hx Depression: Yes Hx Psychosis: Yes Hx Substance Use: No Other/Comment: alcohol abuse - Past Surgical History Past Surgical History: No Previous - Surgical History Hx Orthopedic Surgery: Yes (l hip fx sx 10/20/16) Other/Comment: us guided paracenthesis 06/23/14. hernia repair 04/2018 - Anesthesia Hx Anesthesia Reactions: No Hx Malignant Hyperthermia: No - Suicidal Assessment Feels Threatened In Home Enviroment: No Family/Social History Family/Social History: Unknown Family HX Smoking Status: Former Smoker Hx Alcohol Use: Yes (h/o etoh) Hx Substance Use: No Hx Substance Use Treatment: No Allergies/Home Meds Allergies/Adverse Reactions: Allergies No Known Allergies Allergy (Verified 12/10/18 16:38) Review of Systems - Review of Systems Systems not reviewed;Unavailable: Uncooperative Physical Exam - Physical Exam Narrative Physical Exam (Text): 12/10/18 19:04 Gen: VS reviewed, alert, well developed, cachectic, nontoxic, mild distress Eye: EOMI, PERRL CV: tachy, regular rhythm, no rubs,no murmur, S1, S2 Pulm: no distress, clear to auscultation, no wheeze, no rhonchi, breath sounds equal, no rales Abd: patient uncooperative Ext: no edema Skin: nonspecific generalized petechial rash Psych: patient uncooperative Neuro: patient uncooperative 12/10/18 19:06 Vital Signs Temp Pulse Resp BP Pulse Ox 12/10/18 16:22 98.2 F 104 H 18 119/69 95 Medical Decision Making ED Course and Treatment: 12/10/18 19:0 patient seen for fall at home, unable to contact family members for historically clarity. case endorsed to dr. coon - Lab Interpretations Lab Results: PT 14.7 SECONDS (9.4-12.5) H 12/10/18 18:40 INR 1.32 12/10/18 18:40 APTT 36.2 Seconds (26.9-38.3) 12/10/18 18:40 Total Bilirubin 1.1 mg/dL (0.2-1.3) 12/10/18 18:40 AST 37 U/L (17-59) 12/10/18 18:40 ALT 20 U/L (7-56) 12/10/18 18:40 Alkaline Phosphatase 192 U/L (38-126) H 12/10/18 18:40 Total Protein 6.2 g/dL (5.8-8.3) 12/10/18 18:40 Albumin 2.7 g/dL (3.0-4.8) L 12/10/18 18:40 Globulin 3.5 gm/dL 12/10/18 18:40 Albumin/Globulin Ratio 0.8 (1.1-1.8) L 12/10/18 18:40 - RAD Interpretation Radiology Orders: 12/10/18 17:37 HEAD W/O CONTRAST [CT] Stat Disposition/Present on Arrival - Present on Arrival Any Indicators Present on Arrival: No History of DVT/PE: No History of Uncontrolled Diabetes: No Urinary Catheter: No History of Decub. Ulcer: No History Surgical Site Infection Following: None - Disposition Have Diagnosis and Disposition been Completed?: Yes Diagnosis: Altered mental status Disposition: HOSPITALIZED Disposition Time: 19:00 Patient Problems: Current Active Problems Problem Status Onset Altered mental status Acute Condition: STABLE
--- NOTE | 2018-12-10 19:24 | ED PDOC ---
Physical Exam Vital Signs Temp Pulse Resp BP Pulse Ox 12/10/18 16:22 98.2 F 104 H 18 119/69 95 Medical Decision Making ED Course and Treatment: 12/10/18 19:24 Case was endorsed to me by Dr. Woo. Pending CT head and admission to Dr. Ponce. 12/10/2018 19:[address] 1. There is generalized parenchymal atrophy. 2. Chronic periventricular and subcortical microvascular disease is seen. 3. No acute intracranial pathology. Dictator: Robby Esposito MD Case discussed with Dr. Ponce who accepts patient to her service. - Lab Interpretations Lab Results: PT 14.7 SECONDS (9.4-12.5) H 12/10/18 18:40 INR 1.32 12/10/18 18:40 APTT 36.2 Seconds (26.9-38.3) 12/10/18 18:40 Total Bilirubin 1.1 mg/dL (0.2-1.3) 12/10/18 18:40 AST 37 U/L (17-59) 12/10/18 18:40 ALT 20 U/L (7-56) 12/10/18 18:40 Alkaline Phosphatase 192 U/L (38-126) H 12/10/18 18:40 Total Protein 6.2 g/dL (5.8-8.3) 12/10/18 18:40 Albumin 2.7 g/dL (3.0-4.8) L 12/10/18 18:40 Globulin 3.5 gm/dL 12/10/18 18:40 Albumin/Globulin Ratio 0.8 (1.1-1.8) L 12/10/18 18:40 - RAD Interpretation Radiology Orders: 12/10/18 17:37 HEAD W/O CONTRAST [CT] Stat - Scribe Statement The provider has reviewed the documentation as recorded by the Vincent Arthur All medical record entries made by the Scribe were at my direction and personally dictated by me. I have reviewed the chart and agree that the record accurately reflects my personal performance of the history, physical exam, me dical decision making, and the department course for this patient. I have also personally directed, reviewed, and agree with the discharge instructions and disposition. Disposition/Present on Arrival - Present on Arrival Any Indicators Present on Arrival: No History of DVT/PE: No History of Uncontrolled Diabetes: No Urinary Catheter: No History of Decub. Ulcer: No History Surgical Site Infection Following: None - Disposition Have Diagnosis and Disposition been Completed?: Yes Diagnosis: Altered mental status Disposition: HOSPITALIZED Disposition Time: 21:13 Condition: STABLE
[2018-12-11] MEDS ORDERED: Albuterol-Ipratrop 3 mg / 0.5 (3 ml) UD IH PRN (01:47)
[2018-12-11] MEDS ORDERED: Vitamins A & D Oint UD Foilpak TOP PRN (01:47)
[2018-12-11] MEDS: Budesonide 0.5 mg/2 ml Inhal Susp UD IH SCH ×2 (07:40→20:37)
[2018-12-11] MEDS: Arformoterol 15 mcg/2 ml Inh Sol IH SCH ×2 (07:40→20:37)
--- NOTE | 2018-12-11 07:50 | CT ---
Date of service: 12/10/2018 PROCEDURE: CT HEAD WITHOUT CONTRAST. HISTORY: fall, ?trauma COMPARISON: None available. TECHNIQUE: Axial computed tomography images were obtained through the head/brain without intravenous contrast. Radiation dose: Total exam DLP = 746.84 mGy-cm. This CT exam was performed using one or more of the following dose reduction techniques: Automated exposure control, adjustment of the mA and/or kV according to patient size, and/or use of iterative reconstruction technique. FINDINGS: HEMORRHAGE: No intracranial hemorrhage. BRAIN: No mass effect or edema. Mild atrophy. Chronic microvascular changes VENTRICLES: Unremarkable. No hydrocephalus. CALVARIUM: Unremarkable. PARANASAL SINUSES: Unremarkable as visualized. No significant inflammatory changes. MASTOID AIR CELLS: Unremarkable as visualized. No inflammatory changes. OTHER FINDINGS: The report concurs with the preliminary [facility] report IMPRESSION: No acute intracranial findings
[2018-12-11] MEDS ORDERED: Arformoterol 15 mcg/2 ml Inh Sol IH SCH (08:00)
--- NOTE | 2018-12-11 13:57 | PCM.PCON ---
History of Present Illness - History of Present Illness History of Present Illness: Palliative consult requested by Dr Liyah Ponce Reason: Goals of care This is a 73 year old male with history of alcohol abuse,cirrhosis, ascites, hepatic encephalopathy and GI bleeding who presented to the ED after a fall at home. The patient does not remember falling at home. Pait was [place] [facility] [place] after being treated for GI bleed, AMS. Head CT: No acute intra cranial findings. Ammonia level 43. PMHx:Cirrhosis, ascites, hepatic encephalopathy,esophageal varices, rectal varices, diverticulosis, HBV, HCV exposure, COPD blindness,ALATNA PSHx: Left hip ORIF,EGD. Family History: Non contributory Social: Former tobacco(40 pk/ yr), alcohol abuse(stopped drinking 13 yrs ago), denies illicit drug use. Lives alone. Advance Care Planning: The patient does not have an Advanced Directive Review of Systems: As per HPI, denies all complaints 12 point ROS negative Physical Exam - Constitutional Appears: Cachectic, Chronically Ill - Eye Exam Eye Exam: Normal appearance, PERRL - ENT Exam ENT Exam: Mucous Membranes Moist - Respiratory Exam Respiratory Exam: Decreased Breath Sounds, NORMAL BREATHING PATTERN - Cardiovascular Exam Cardiovascular Exam: REGULAR RHYTHM, +S1, +S2 - GI/Abdominal Exam GI & Abdominal Exam: Normal Bowel Sounds, Soft Additional comments: mildly distended - Extremities Exam Extremities exam: Positive for: full ROM, pedal pulses present - Back Exam Back exam: NORMAL INSPECTION - Neurological Exam Neurological exam: Alert - Skin Skin Exam: Dry - Additional Findings Additional findings: Palliate performance scale raing 40% Palliative Care Assessment - Modified MRC Dyspnea Scale Modified MRC Dyspnea Scale: Walk slower than comtemporaries on level ground due to breathlessness Grade: 3 - Pain Scale Pain Score: 0 Pain Scale Used: Numeric - Edwin Scale Sensory Perception: Slightly Limited Moisture: Occasionally Moist Activity: Walks Occasionally Mobility: Slightly Impaired Nutrition: Probably Inadequate Friction & Shear: Potential Problem Total Score - Skin Risk Assessment: 16 - Psychosocial Distress Patient screened for psychosocial distress: Yes Outcome: Referred to social media marketing analyst - Goals Treatment Goal(s): Alleviate symptoms, Improve ADLs, Improve quality of life End of life care discussed: No - Plan Interdisciplinary involved: reinforcing steel worker wire mesh, turf manager, Physician Discharge planning: Home Assessment & Plan - Assessment and Plan (Free Text) Assessment: This is a 73 year old male with history of alcohol abuse,cirrhosis, ascites, hepatic encephalopathy and GI bleeding who was broguth i after a reported flall at home. He denies any injury Dr Hopkins spoke to patient in Macedonian. Patient does not remember falling. We expressed concerned for his safety at home. Offer to transition to [place] where he would get time study technologist care. The patient stated he has 39 hours of caretakers per week. He wants to go home. Stated he feels like a " prisoner" in the hospital. We explained that we were unable to reach his daughter Lian and could not release until a plan was in place. Time spent in goals of care discussion, 20 minutes Plan: Goals of care Lactulose daily Duonebs, Pulmicort, O2 Seroquel HS, Ativan prn Aldactone and Lasix daily
--- NOTE | 2018-12-11 15:14 | CP.PCM.PCO ---
Physician Communication Note - Physician Communication Note Physician Communication Note: Pt.admitted s/p fall,per Pmd,may need facility placement,relayed to SW/cm Additional Comments - Additional Comments Additional Comments: Pt. seen, agitated, in no acute distress, being fed breakfast by nurse, is hard of hearing, blind.
--- NOTE | 2018-12-12 02:35 | HP ---
This case was discussed with Dr. Ponce she is inagreement with treatment plan. DATE OF EXAM: 12/11/2018 CHIEF COMPLAINT: Status post fall. HISTORY OF PRESENT ILLNESS: The patient was discharged on 12/09/2018 back to home with daughter, was readmitted yesterday on 12/10/2018, came to the emergency room with complaints of falling, generalized weakness and change in mental status. PAST MEDICAL HISTORY: The patient has history of alcoholism, cirrhosis of the liver, gastrointestinal bleed, chronic anemia, Lee's esophagus, hypertension, alcohol abuse and hyperlipidemia. FAMILY HISTORY: Mother and father history noncontributory. The patient is a poor historian. SOCIAL HISTORY: The patient is living with daughter in community, has limited social support. He has history of alcoholism, nicotine dependence. HOME MEDICATIONS: Reviewed by myself. REVIEW OF SYSTEMS: The patient is denying sinus pressure, sore throat, facial numbness or pain. Denies chest pain, palpitations. Denies cough, hemoptysis. Denies heartburn, abdominal pain, constipation, hematuria, hematochezia. Denies joint stiffness, deformity. Denies rash or lesions. ALLERGIES: NO KNOWN ALLERGIES. PHYSICAL EXAMINATION GENERAL: The patient appears cachectic, thin, older than stated age, agitated, in no acute distress. VITAL SIGNS: Temperature of 99.2, pulse rate of 99, blood pressure of 115/58. Respiratory rate is 20, saturating at 95% on room air. HEENT: Normocephalic, atraumatic, PERRLA, mucous membranes dry. NECK: Supple. No thyromegaly. RESPIRATORY: Clear to auscultation. No wheeze. No rhonchi. CARDIOVASCULAR: S1 and S2. No JVD. ABDOMEN: Soft. Hepatomegaly. EXTREMITIES: Moving all extremities. SKIN: Intact. No edema, no cyanosis. NEUROLOGIC: The patient is alert and oriented x 2 to 3, clear judgment. MEDICATIONS: Albuterol, Brovana, Pulmicort, Lasix, lactulose, Ativan, Protonix, Seroquel, Flomax. LABORATORY DATA: From yesterday, 12/10/2018, white blood cells 5.8, hemoglobin 8.8, hematocrit 28, platelet count 146. Sodium 137, potassium 3.6, BUN of 15, creatinine 0.5, GFR was 60, AST 37, ALT 20, ammonia level 43. ASSESSMENT AND PLAN: This is a 74-year-old male with multiple health conditions, altered mental status, fall, deconditioning, generalized weakness, cirrhosis of the liver, chronic obstructive pulmonary disease, urinary retention, congestive heart failure. The patient continues on Lasix daily, lactulose, continues on Brovana, no Pulmicort, Flomax, Aldactone. The patient is being followed by Pulmonology. Psychiatric consult for change in mental status. Review electrocardiogram. Screening for physical therapy and occupational therapy ordered today. The patient has history of non-compliance, At this time, the patient is considering subacute nursing care. We will plan for a possible admission, pending physical therapy and occupational therapy recommendations. We will repeat labs. Monitor medications. We will follow up. ALL ABOVE NOTED , AGREED WITH PLACING JUDGE TREATMENT PLAN , CHART , LABS AND MEDS NOTED . NEW LABS ORDERED , CONT. SAME TREATMENT . WILL F/U Femi Moffett APN Evie Ponce MD [email or web address]
[2018-12-12] MEDS: Arformoterol 15 mcg/2 ml Inh Sol IH SCH ×2 (08:35→20:04)
[2018-12-12] MEDS: Budesonide 0.5 mg/2 ml Inhal Susp UD IH SCH ×2 (08:35→20:04)
--- NOTE | 2018-12-12 11:30 | PCM.PPROG ---
History of Present Illness - History of Present Illness History of Present Illness: Lethargic, was given Ativan earlier Review of Systems - Review of Systems All systems: reviewed and no additional remarkable complaints except Physical Exam - Constitutional Appears: Cachectic, Chronically Ill - Eye Exam Eye Exam: Normal appearance, PERRL - ENT Exam ENT Exam: Mucous Membranes Moist - Respiratory Exam Respiratory Exam: Decreased Breath Sounds, NORMAL BREATHING PATTERN - Cardiovascular Exam Cardiovascular Exam: REGULAR RHYTHM, +S1, +S2 - GI/Abdominal Exam GI & Abdominal Exam: Normal Bowel Sounds, Soft - Extremities Exam Extremities exam: Positive for: pedal pulses present - Neurological Exam Neurological exam: Altered - Skin Skin Exam: Dry, Pallor Palliative Care Assessment - Pain Scale Pain Score: 0 Pain Scale Used: Numeric Palliative Care - Goals Treatment Goal(s): Alleviate symptoms, Improve ADLs, Improve quality of life End of life care discussed: No - Plan Interdisciplinary involved: sand control worker, tax audit manager, Physician Discharge planning: Home Assessment & Plan - Assessment and Plan (Free Text) Assessment: This is a 73 year old male with history of alcohol abuse,cirrhosis, ascites, hepatic encephalopathy and GI bleeding who was brought in after a reported fall at home. The patient is very lethargic. He does not remember how he got here. States he wants to go home. Attempted to discuss concerns about home situation and care needs but he is too lethargic to discuss. Goals of care 20 minutes l Plan: Goals of care Lactulose daily Duonebs, Pulmicort, O2 Seroquel HS, Ativan prn Aldactone and Lasix daily
--- NOTE | 2018-12-12 11:33 | CP.PCM.PCO ---
Additional Comments - Additional Comments Additional Comments: Pt. s/p fall, ? at home after DC home 2 days ago, no injury sustained. remains stable, awaits PT eval, no further complaints. Medically cleared for DC , awaits SW/CM for safe DC plan, Dispo- Home with care in place vs. [facility]/facility awaiting status of Placement vs. Dc home w. care. pt. in past has been non-compliant with treatment , including PT.
--- NOTE | 2018-12-12 13:39 | CON ---
DATE OF CONSULTATION: 12/12/2018 HISTORY OF PRESENT ILLNESS: In short, the patient is a 73-year-old Polish male with multiple medical issues including dementia, hard of hearing, visual impairment. The patient also has history of alcohol abuse and cirrhosis. The patient was recently discharged from medical floor on 12/10/2018. The patient came back to the hospital status post fall. The patient was admitted on the medical side for altered mental status. Psych consult was called for "mini mental status examination," but most likely, it is related to altered mental status and medication management and advise about after care plan. The patient was seen and examined. No meaningful conversation possible with the patient. The patient was medicated with Ativan 0.5 mg IV push at 09:02, and the patient was sleeping. The patient was able to open his eyes, but no meaningful conversation possible. This publicity writer is familiar with this case from the previous admission on the medical side where the patient presented with the same way. This publicity writer is not sure if the patient has power of civil litigation attorney or not. PHYSICAL EXAMINATION: VITAL SIGNS: Reviewed.. Temperature 98.5, pulse is 101, blood pressure 104/64, respirations 20, and oxygen saturation is 98. MEDICATIONS: Reviewed. The patient is on DuoNeb, Brovana, Pulmicort, Lasix, Enulose, Ativan 0.5 mg IV push every 8 hours as needed for agitation. The patient is on Protonix, Seroquel 12.5 mg at the nighttime schedule, Aldactone, Flomax, vitamin A. LABORATORY DATA: Labs reviewed. Coagulation reviewed and chemistry reviewed. MENTAL STATUS EXAMINATION: As this publicity writer described above, this publicity writer was not able to evaluate the patient's mental status. 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 PLAN: This publicity writer would suggest for the Police Pilot to find out if the patient has power of civil litigation attorney for medical decisions. Medical team needs to start working in that process. Most likely, the patient would require a chcf placement because it will be not a safe discharge. Options need to be discussed with the family. The patient has daughter, Ms. Lian Carrion, who claimed to be power of civil litigation attorney, but she needs to present legal documents of the patient. Meanwhile, continue Seroquel and Ativan as needed. Dr. Parmar will follow up on this patient over the weekend. Should you have any questions give me a call back. Clarissa Law MD
--- NOTE | 2018-12-12 19:08 | PN ---
DATE: 12/12/2018 The patient was seen and examined at the bedside on 12/12/2018. SUBJECTIVE: The patient is very lethargic. Daughter, Lian Carrion is also on the bedside. Even nurse practitioner, Keiry, and oncology social work, Tosha was also on the bedside. Also the patient is getting episodes of confusion, looks like he is not safe for discharge, and he is not making any decision for discharge planning and the patient is very noncompliant, urged to be compliant. Discussion done with the daughter. Daughter has schizophrenia by herself, tried to call brother Mookie and sometime he is not attending call. PHYSICAL EXAMINATION: VITAL SIGNS: Temperature 98.5, pulse 101, blood pressure 104/67, and respiratory rate 20. HEENT: Head; normocephalic and atraumatic. Eyes; PERRLA. Extraocular muscles intact. Conjunctivae clear. Nose patent. Mucous membranes moist. NECK: Supple. No carotid bruits, JVP, or thyromegaly. CHEST: Bilaterally symmetrical. HEART: S1 and S2 positive. LUNGS: Clear to auscultation. ABDOMEN: Soft. Bowel sounds present. No organomegaly. EXTREMITIES: No edema. No cyanosis. NEUROLOGIC: The patient is awake and alert, but getting confused. MEDICATIONS: Aldactone, Ativan, Brovana, albuterol, lactulose, Flomax, Lasix, Protonix, Pulmicort, and Seroquel. LABORATORY DATA: White blood cells 5.8, hemoglobin 8.8, hematocrit 28.0, and platelet 146. Sodium 137, potassium 3.6, BUN 15, creatinine 0.5, glucose 104, and calcium 8.1. ASSESSMENT AND PLAN: Mr. Esteban Carrion is a 73-year-old male with anemia, hypocalcemia, and hypoalbuminemia, seen by Tessa Blackwood, palliative nurse. He has a history of alcohol abuse, cirrhosis, ascites, history of multiple time paracenteses, hepatic encephalopathy, gastrointestinal bleeding, and has a fall after discharge from the hospital. The patient is lethargic and confused. He does not have any thinking process right now. We are continuing Aldactone, Seroquel, DuoNeb, and lactulose. Seen by Keiry. The patient had fall at home after discharge on the same day from the hospital. No injury sustained. Remains stable. Physical therapy evaluation is ordered; waiting for the result. The patient is very noncompliant even for physical therapy specific physical therapy. Seen by the psychiatrist, Clarissa Law. According to her, the patient is not safe to discharge home. He has given the power of assistant prosecuting attorney to his daughter, but power of assistant prosecuting attorney has schizophrenia by herself. Actually the patient needs a long term placement, but the patient is in denial. Social workers and machine adjuster leader case trim are working on that, working with his daughter. Evie Ponce MD MTDD
[2018-12-12] MEDS: Pantoprazole 40 mg EC Tab PO SCH (21:33)
[2018-12-13] MEDS: Arformoterol 15 mcg/2 ml Inh Sol IH SCH ×2 (07:11→21:24)
[2018-12-13] MEDS: Budesonide 0.5 mg/2 ml Inhal Susp UD IH SCH ×2 (07:12→21:24)
[2018-12-13] MEDS: Pantoprazole 40 mg EC Tab PO SCH ×2 (09:18→23:07)
--- NOTE | 2018-12-13 21:11 | PN ---
DATE: 12/13/2018 SUBJECTIVE: The patient was seen and examined at the bedside on 12/13/2018, looking comfortable. No fever, no chills. No hematuria, no hematochezia. No headache. No dizziness. No chest pain. No palpitation, very noncompliant and is not a good historian. PHYSICAL EXAMINATION: VITAL SIGNS: Temperature 98, pulse 70, blood pressure 170/74, respiratory rate 18. HEENT: Head; normocephalic and atraumatic. Eyes; PERRLA. Extraocular muscles intact. Conjunctivae clear. Nose patent. Mucous membranes moist. NECK: Supple. No carotid bruits. No JVD or thyromegaly. CHEST: Bilaterally symmetrical. HEART: S1 and S2 positive. LUNGS: Clear to auscultation. ABDOMEN: Soft. Bowel sounds present. No organomegaly. EXTREMITIES: No edema. No cyanosis. NEUROLOGIC: The patient is awake and alert. Follows simple commands. MEDICATIONS: Spironolactone, Ativan, Brovana, lactulose, Flomax, Lasix, Protonix, Pulmicort, Seroquel, vitamins A and D. LABORATORY DATA: We do not have recent labs today, but I reviewed old labs. ASSESSMENT AND PLAN: Mr. Esteban Carrion is a 73-year-old male with anemia, hypocalcemia, hyperalbuminemia, history of alcoholic cirrhosis, ascites and paracentesis a couple of times. Seen by the psychiatrist, looks like depressed. 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 Sheepskin Pickler are working on that. The patient is in need of placement. Looking for group home for the patient because daughter who is the responsible constitution party has schizophrenia by herself and the patient does not get along with her, she is spitting on her face. Tessa Blackwood, Palliative Care is on the case, talking to the family. Hepatic encephalopathy. History of fall for this admission. The patient is lethargic and getting confused once in a while. Discussion done with the family and nursing staff. Appreciate Dr. Clarissa Law's notes. Repeat labs. We will follow up. Evie Ponce MD [facility] # [id number]
[2018-12-14] MEDS: Budesonide 0.5 mg/2 ml Inhal Susp UD IH SCH ×2 (07:05→20:26)
[2018-12-14] MEDS: Arformoterol 15 mcg/2 ml Inh Sol IH SCH ×2 (07:05→20:26)
[2018-12-14] MEDS: Pantoprazole 40 mg EC Tab PO SCH ×2 (10:19→23:21)
--- NOTE | 2018-12-14 19:23 | PN ---
This case was discussed with Dr. Ponce she is inagreement with treatment plan. DATE: 12/14/2018 SUBJECTIVE: This is a 73-year-old male with multiple admissions and health issues, this current visit was for altered mental status, status post fall. He has a past medical history of chronic hepatitis B, cirrhosis of the liver, alcohol dependent, hypertension, chronic anemia, hyperlipidemia, altered mental status due to elevated ammonia level, seen the patient today at bedside. The patient was alert, eyes opened. The patient hard of hearing, less agitated today, generally judgement remains impaired. The patient is denying shortness of breath or chest pain; hematochezia or hematuria; fevers or chills. PHYSICAL EXAMINATION VITAL SIGNS: Temperature 98.4, pulse 98, blood pressure 118/67, respirations 20, sat is 95% on room air. GENERAL: The patient appears in no acute distress, cachectic, chronically ill. HEENT: Normocephalic, atraumatic. PERRLA. Mucous membranes moist. NECK: Supple. No thyromegaly. RESPIRATIONS: Clear to auscultation. CARDIOVASCULAR: S1 and S2. No JVD. EXTREMITIES: The patient is moving all extremities. SKIN: Intact. No edema. NEUROLOGIC: The patient is alert and oriented x2 with cognitive deficit. MEDICATIONS: Brovana, Pulmicort, Lasix, lactulose, Ativan, Protonix, Seroquel, Aldactone, and Flomax. LABORATORY DATA: No current laboratory. ASSESSMENT AND PLAN: This is a 73-year-old male with cirrhosis of liver, hypertension, deconditioning, change in mental status due to elevated ammonia level, chronic obstructive pulmonary disease, history of alcoholism. The patient is very noncompliant most time laboratory that was ordered; however, nurse reported the patient has been less agitated for 24 hours, has been taken some medications. The patient was examined by Psychiatry DX: dementia related to hepatic encephalopathy. The patient has history of fall, limited social support. Plan from this point is consulting with senior living for placement, oncology social work is on the case. The patient is also evaluated by palliative nurse practitioner. The patient is hard of hearing, visual impairment, needs 24-hour care. We will continue to monitor progress toward senior living placement and follow up the patient. ALL ABOVE NOTED , AGREED ALL ABOVE , CONT. PRESENT TREATMENT , CHART , MEDS AND LABS NOTED WILL F/U WE HAVE PROBLEM FOR PLACEMENT , SW ARE WORKING ON THAT Femi Moffett APN Evie Ponce MD MTDAwais
--- NOTE | 2018-12-14 22:07 | CON ---
DATE: 12/14/2018 HISTORY OF PRESENT ILLNESS: The patient is a 73-year-old Hungarian male with numerous medical issues including dementia, alcohol abuse, who Psychiatry has been seeing due to mental status changes. I have reviewed Dr. Clarissa Law's notes and met with the patient at bedside. The patient's presentation has not improved a great deal; however, he seems to be a little bit less agitated, has less frequent episodes of agitation, he does not swear at me this morning. However, he is still only oriented to himself and the fact that he is at [facility]. He does not know what month or year it is. I agree with Dr. Law that it is difficult to maintain a meaningful conversation at this time. He still has periods of yelling and agitation on the unit and remains disoriented with poor insight and judgment. Vital signs and labs were reviewed. RELEVANT PSYCHIATRIC MEDICATIONS: Include Ativan 0.5 mg t.i.d. p.r.n., Seroquel 12.5 mg at bedtime. The patient received 2 doses of Ativan on Saturday, however, refused Seroquel last night. IMPRESSION: By history, the patient has dementia likely related to alcohol, rule out delirium contributing to his at times unpredictable thoughts of yelling and agitation. RECOMMENDATIONS: We will continue with current medications at this time. There is no acute indication to change them. Psychiatry will follow up peripherally. Please re-consult p.r.n. Reva Parmar MD
[2018-12-15] MEDS: Arformoterol 15 mcg/2 ml Inh Sol IH SCH (08:30)
[2018-12-15] MEDS: Budesonide 0.5 mg/2 ml Inhal Susp UD IH SCH (08:30)
[2018-12-15] MEDS: Pantoprazole 40 mg EC Tab PO SCH (09:24)
--- NOTE | 2018-12-15 12:55 | CP.PCM.PCO ---
Physician Communication Note - Physician Communication Note Physician Communication Note: Pt. seen,per psych demented,will need home w.24hour care vs. [facility]/LTC.
--- NOTE | 2018-12-15 13:58 | PCM.PPROG ---
History of Present Illness - History of Present Illness History of Present Illness: Alert,offers no complaints Review of Systems - Review of Systems Review of Systems: negative 12 point ROS Physical Exam - Constitutional Appears: Cachectic, Chronically Ill - Head Exam Head Exam: NORMOCEPHALIC - ENT Exam ENT Exam: Mucous Membranes Moist - Respiratory Exam Respiratory Exam: Clear to Auscultation Bilateral, NORMAL BREATHING PATTERN - Cardiovascular Exam Cardiovascular Exam: REGULAR RHYTHM, +S1 - GI/Abdominal Exam GI & Abdominal Exam: Normal Bowel Sounds, Soft - Extremities Exam Extremities exam: Positive for: normal inspection, pedal pulses present - Back Exam Back exam: NORMAL INSPECTION - Skin Skin Exam: Dry, Warm Palliative Care Assessment - Pain Scale Pain Score: 0 Pain Scale Used: Numeric - Pain Description Intensity of pain at present: 0 - Edwin Scale Sensory Perception: Slightly Limited Moisture: Occasionally Moist Activity: Walks Occasionally Mobility: Very Limited Nutrition: Probably Inadequate Friction & Shear: Potential Problem Total Score - Skin Risk Assessment: 15 - Psychosocial Distress Patient screened for psychosocial distress: Yes Outcome: Referred to social studies department chair - Goals Treatment Goal(s): Alleviate symptoms, Improve ADLs, Improve quality of life End of life care discussed: No - Plan Interdisciplinary involved: collision worker, consulting practice manager, Physician Discharge planning: Home Assessment & Plan - Assessment and Plan (Free Text) Assessment: This is a 73 year old male with history of alcohol abuse,cirrhosis, ascites, hepatic encephalopathy and GI bleeding who was brought in after a reported fall at home. Alert and oriented to place and self. He is forgetful. He has been told by multiple members of the care team that he is unable to properly care for himself. Although his daughter, Lian has offered to take him care of him, she has been unable to do so. Patient was offered option for [facility] for strengthening/deconditioning. Patient is undecided,first agreed to [facility] but then stated that had changed his mind, wants to go home. Patient also being followed by Psychiatry who feel he is unable to make sound decisions for himself Time spent with patient in goas of care discussion, 30 minutes Plan: Goals of care Lactulose daily Duonebs, Pulmicort, O2 Seroquel HS, Ativan prn Aldactone and Lasix daily
[2018-12-15 16:57] VITALS: BP 118/70; PULSE 66; RESP 19; TEMP 98.1; O2SAT 91
--- NOTE | 2018-12-15 19:54 | PN ---
DATE: 12/15/2018 SUBJECTIVE: The patient admitted with altered mental status, status post fall. I saw patient today at the bedside, alert x2, verbally responsive. The patient denies chest pain, shortness of breath, abdominal pain, hematochezia or hematuria. PHYSICAL EXAMINATION VITAL SIGNS: Temperature 98.2, pulse 106, blood pressure 110/69, respiratory rate 18, sat is 95% on room air. GENERAL: The patient appears chronically ill, cachectic. HEENT: Normocephalic, atraumatic. PERRLA. Mucous membranes moist. NECK: Supple. No thyromegaly. RESPIRATIONS: Clear to auscultation. Scattered wheeze clears with cough. No rhonchi. CARDIOVASCULAR: S1 and S2. No JVD. ABDOMEN: Soft, nontender, no organomegaly. EXTREMITIES: Moving all extremities. NEUROLOGIC: The patient is alert and oriented x2 to place, no cognitive deficit. MEDICATIONS: Brovana, Pulmicort, Lasix, lactulose, Ativan, Protonix, Seroquel, Aldactone, and Flomax. LABORATORY DATA: No recent laboratories. ASSESSMENT AND PLAN: This 73-year-old male presents for hospitalizations with multiple chronic health issues, came in with altered mental status, status post fall. The patient has impaired judgement due to hepatic encephalopathy, hepatitis C, hypertension, hyperlipidemia, alcoholism history. The patient remains on lactulose, gastric prophylaxis. On Aldactone, Flomax, Brovana, Pulmicort. The patient was seen by PSYCH ,NEURO revealed no diagnosis of dementia. Spoke to neonatal social worker today. The patient has limited social support. Social service sent referral for penitentiary. Monitoring the progress of that. We will plan accordingly when I hear back from referral. The patient noncompliant, not checking any labs, taking some medication. We will follow up. all ABOVE NOTED , AGREED WITH TYPE BAR AND SEGMENT ASSEMBLER , EDUCATION DONE , D/D WITH TYPE BAR AND SEGMENT ASSEMBLER , GI IS ON THE CASE , WILL F/U Femi Moffett APN Evie Ponce MD MTDD
--- NOTE | 2018-12-16 03:47 | DS ---
CHIEF COMPLAINT: Altered mental status, status post fall. HISTORY OF PRESENT ILLNESS: This is a 73-year-old male with multiple hospital admissions, multiple chronic diagnoses, first admission on 12/02/2018, GIB, and anemia. PAST MEDICAL HISTORY: Hypertension, chronic viral hepatitis B and C, Lee's esophagus, CHF, alcohol abuse, chronic anemia, hyperlipidemia, dementia, and deconditioning. SOCIAL HISTORY: The patient has limited social support. Lives with daughter at home. History of alcohol abuse, nicotine dependent. He is hard of hearing and vision impaired. FAMILY HISTORY: Mother and father history noncontributory. HOME MEDICATIONS: Reviewed. ALLERGIES: NO KNOWN ALLERGIES. REVIEW OF SYSTEMS: Please see progress note for 12/15/2018. PHYSICAL EXAMINATION: GENERAL: I saw the patient today, he is alert, less agitated. VITAL SIGNS: Temperature 98.1, pulse rate 56, blood pressure 118/70, respiratory rate 19, and saturating 99% on room air. Please see progress note for 12/15/2018. ASSESSMENT AND PLAN: This is a 73-year-old male who came in on this admission for altered mental status, status post fall. The patient was seen by Psychiatry for change in mental status, diagnosis of dementia was appreciated. The patient had head CT scan that showed no hemorrhage or bleeding. Pulmonology is on the case. The patient has received home medications. The patient is very noncompliant with care. Labs were ordered. The patient refused the labs. He was at times very agitated. The patient is more stable now, taken some medication. We changed the lactulose and Seroquel to Ultram and Bactrim. breathing treatment. I spoke with Cable Tool Operator today. Plan is to have the patient discharged to home with daughter as of today, 12/15/2018. all ABOVE NOTED , AGREED WITH PAST DUE ACCOUNTS CLERK , EDUCATION DONE , D/D WITH PAST DUE ACCOUNTS CLERK , GI IS ON THE CASE , WILL F/U Femi Moffett APN Evie Ponce MD JULIET
== END 2018-12-15 19:52 | disposition home or self-care (01) | DRG 442 ==
LOC: ED 16:21 → ERH 21:13 → 3RSO 23:48 → UNDODISIN 12-12 20:45
PROVIDERS: ADMIT Internal Medicine; ATTEND Internal Medicine
DX: K72.90 Hepatic failure, unspecified without coma (principal); B18.1 Chronic viral hepatitis B without delta-agent; F10.27 Alcohol dependence with alcohol-induced persisting dementia; R64 Cachexia; Z68.1 Body mass index [BMI] 19.9 or less, adult; R41.82 Altered mental status, unspecified; K22.70 Barrett's esophagus without dysplasia; D64.9 Anemia, unspecified; B18.2 Chronic viral hepatitis C; K70.31 Alcoholic cirrhosis of liver with ascites; I11.0 Hypertensive heart disease with heart failure; I50.9 Heart failure, unspecified; I25.10 Atherosclerotic heart disease of native coronary artery without angina pectoris; J44.9 Chronic obstructive pulmonary disease, unspecified; H54.7 Unspecified visual loss; H40.9 Unspecified glaucoma; Y90.9 Presence of alcohol in blood, level not specified; Z91.19 Patient's noncompliance with other medical treatment and regimen; Z86.73 Personal history of transient ischemic attack (TIA), and cerebral infarction without residual deficits; Z87.891 Personal history of nicotine dependence